=== PATIENT | female | born 1950 | race Caucasian/White ===

== ENCOUNTER → 2017-09-29 14:34 | Outpatient (CLI) | payer MEDICARE, OTHER, SELFPAY ==
[2017-09-29 17:32] LABS: Absolute Lymphocyte Count 1.48 X10^3/ul (0.83-4.51); Absolute Neutrophil Count 3.6 X10^3/uL (2.0-7.7); Basophil# 0.02 X10^3/uL; Basophil% 0.4 % (0-1); Eosinophil# 0.08 X10^3/uL; Eosinophils% 1.4 % (0-5); Hematocrit 33.9 % (37-47); Hemoglobin 10.2 g/dl (12.0-15.0); Lymphocyte # 1.48 X10^3/ul (4.0); Mean Corp Hgb Conc 30.1 g/gl (32-36); Mean Corpuscular Hgb 24.9 pg (27.0-32.0); Mean Corpuscular Volume 82.9 fL (81-99); Mean Platelet Vol. 11.4 fl (6.2-12.0); Monocyte# 0.56 X10^3/uL; Monocyte% 9.8 % (0-10); Neutrophil # 3.55 X10^3/uL (2.7-7.7); Neutrophil % 62.4 % (47-70); Platelet Count 216 K/mm3 (150-450); RBC Distribution Width CV 15.8 % (11.6-14.6); RBC Distribution Width SD 47.8 fl (35.1-43.9); Red Blood Count 4.09 M/mm3 (4.2-5.4); White Blood Count 5.7 K/mm3 (4.4-11.0)
[2017-09-29 17:34] LABS: POSITIVE COUNT NO; POSITIVE DIFFERENTIAL NO; POSITIVE MORPHOLOGY NO
[2017-09-29 17:43] LABS: Vitamin D,25 Hydroxy 28.5 ng/mL (29.95-100.01)
[2017-09-29 18:01] LABS: ALB/GLOB Ratio 0.8 RATIO (0.9-2.4); AST(SGOT) 20 U/L (15-37); Alanine Aminotransfer ALT/SGPT 21 U/L (13-56); Albumin, Serum 2.6 g/dL (3.2-5.0); Alkaline Phosphatase 105 U/L (45-117); Anion Gap 7 (5-15); BUN 23 mg/dL (7-18); BUN/Creat Ratio 27.4 RATIO (10-20); Calcium,Total 8.3 mg/dL (8.5-10.1); Chloride 105 mmol/L (98-107); Creatinine, Serum 0.84 mg/dL (0.55-1.02); EST Glomerular Filtration Rate 72 mL/min (>60); Est Glom Filt Rate - Afr Amer 87 mL/min (>60); Globulin 3.2 g/dL (2.2-4.2); Glucose 85 mg/dL (74-106); Potassium 4.3 mmol/L (3.5-5.1); Protein, Total 5.8 g/dL (6.4-8.2); Sodium Level 142 mmol/L (136-145)
== END ==
PROVIDERS: Family Provider Family Medicine Geriatric Medicine; PCP Family Medicine Geriatric Medicine; Visit Provider Family Medicine Geriatric Medicine
DX: E11.9 Type 2 diabetes mellitus without complications (principal); I10 Essential (primary) hypertension; E55.9 Vitamin D deficiency, unspecified
CPT/HCPCS: 36415; 80053; 82306; 84443; 85025

== ENCOUNTER 2017-10-30 10:30 | Outpatient (RCR) | payer MEDICARE, OTHER, SELFPAY ==
[2017-10-09 09:26] VITALS: BP 124/65; PULSE 74; RESP 18; TEMP 36.6; BMI 33.7
--- NOTE | 2017-10-09 13:25 | PCM.WC.HP ---
(1) Ulcer of right lower extremity with fat layer exposed Status: Acute Current Visit: Yes Code(s): L97.912 - Non-pressure chronic ulcer of unspecified part of right lower leg with fat layer exposed (2) Type 2 diabetes mellitus without complications Status: Acute Current Visit: Yes Code(s): E11.9 - Type 2 diabetes mellitus without complications (3) PVD (peripheral vascular disease) Status: Acute Current Visit: Yes Code(s): I73.9 - Peripheral vascular disease, unspecified (4) Lower extremity edema Status: Acute Current Visit: Yes Code(s): R60.0 - Localized edema (5) Delayed wound healing Status: Acute Current Visit: Yes Code(s): T14.8XXD - Other injury of unspecified body region, subsequent encounter History of Present Illness Date of Service: 10/09/17 Chief Complaint: non healing right lower leg ulcer History of Wound: This 66 year old diabetic female was referred to the wound healing center for a non healing ulcer to the right lateral lower leg. The patient says she is unsure the exact amount of time the ulcer has been opened, but says it is around 3 months. She says she has not done anything yet on her own to treat the ulcer. She says there was no trauma or injury that caused the ulcer. She says that she has always had swelling in her lower legs and she does not routinely keep compression on her legs. She has not done anything to treat the area on her own other than keeping the ulcer covered. She denies any pus to the area or any extending redness. She currently denies any feelings of nausea, vomiting, fever, or chills. Past Medical History Past Medical History: Chronic Problems (Last Updated 09/03/17 @ 12:31 by Rose Mary Taylor) Nonrheumatic aortic (valve) stenosis (Chronic) Nonrheumatic mitral (valve) stenosis (Chronic) Hypertension (Chronic) Surgical History: no surgical history Allergies/Adverse Reactions: Allergies lisinopril Adverse Reaction (Intermediate, Verified 10/09/17 09:47) Unknown penicillin G Adverse Reaction (Intermediate, Verified 09/03/17 12:13) Unknown exenatide [From [place]] Adverse Reaction (Unknown, Verified 10/09/17 09:47) Unknown Home Medications: Ambulatory Orders Medication Instructions Recorded Aspirin [Aspirin, Baby] 81 mg PO DAILY@0800 03/24/15 Escitalopram Oxalate [Lexapro] 10 mg PO DAILY 03/24/15 Gabapentin [Neurontin] 300 mg PO QHS 03/24/15 Lisinopril [Zestril] 5 mg PO DAILY 03/24/15 Montelukast [Singulair] 10 mg PO DAILY 03/24/15 Multivitamins,Ther W-Minerals 1 tab PO DAILY 03/24/15 [Multivitamin With Minerals] Omeprazole [Prilosec] 40 mg PO DAILY 03/24/15 Pravastatin [Pravachol] 20 mg PO QHS 03/24/15 Metformin HCl [Glucophage] 500 mg PO BIDCM #0 08/02/16 Cholecalciferol (VIT D3) [Vitamin 1,000 unit PO DAILY 11/22/16 D3] amlodipine 5 mg tablet 5 mg PO DAILY tab 09/03/17 traMADol [Ultram (G)] 50 mg PO Q4H PRN PRN 10/09/17 - Family History Maternal Family History: Family History (Last Updated 09/03/17 @ 12:31 by Rose Mary Taylor) Sister CAD (coronary artery disease) Hx of CABG No pertinent history Paternal Family History: Family History (Last Updated 09/03/17 @ 12:31 by Rose Mary Taylor) Sister CAD (coronary artery disease) Hx of CABG No pertinent history Smoking Status: Former smoker Review of Systems Constitutional: Denies: Chills, Fever, Weight Change Cardiovascular: Denies: Chest Pain, Palpitations Respiratory: Denies: Cough, Shortness of Breath Gastrointestinal: Denies: Diarrhea, Nausea, Vomiting Musculoskeletal: Reports: Leg Pain Skin: Reports: Wounds Hematologic/ Lymphatic: Denies: Easy Bruising, Easy Bleeding - Physical Exam Vital Signs Temp Pulse Resp BP 98 F 74 18 124/65 H 10/09/17 09:26 10/09/17 09:26 10/09/17 09:26 10/09/17 09:26 General: Alert, Oriented x3, Cooperative, No apparent distress Extremities: Capillary Refill Less than 3 Seconds, No Calf Tenderness - negative eileen and morton sign bilateral, Diminished Peripheral Pulses - DP pulse intact bilateral and PT pulse non palpable bilateral due to edema, Edema - bilateral lower extremity pitting edema with right being slightly worse than left Skin: Ulcer/ Wound - Chronic ulcer to right lower leg with dimensions noted below. Ulcer base is mixture of grandular tissue, adherent slough, fibrin, biofilm, and some hyperkeratotic tissue. There is no undermining, no probing, and no tracking noted. Serous drainage noted. No malodor, no extending cellulitis, no significant increase in warmth. No purulence. Wound Measurements and Assessment WC - Nurse 1 - General Ulcer Measurement Start: 10/09/17 09:03 Freq: Status: Active Protocol: Activity Type Activity Date Activity User E-Sign Co-Sign Detail Recorded Client Recorded Date Recorded By Document 10/09/17 09:26 DL [id number] 10/09/17 09:44 DL 10/09/17 09:26 Wound Center Nurse 1 [Ulcer Assessment] #1 R Lat Robb -Current Size (cm) - Length 3.8 -Current Size (cm) - Width 3.5 -Current Size (cm) - Depth 0.1 -Total Square Cm 13.30 -Photo Taken Yes -Epithelialization Small 1-33% -Classification - Thickness Full Thickness without Exposed Support Structure -Classification - Armstrong Grading ( Grade 1 Diabetic Ulcer) -Exudate Amt Medium (34-66%) -Exudate Type Serosanguineous -Wound Margin Distinct, Outline Attached -Granulation Amt Medium (34-66%) -Granulation Quality [place] Red -Necrosis Amt Medium (34-66%) -Necrotic Tissue Type Adherent Slough -Structure Exposed N/A -Texture (Gricel-wound Skin Appearance) Scarring -Moisture (Gricel-wound Skin Appearance No Abnormality ) -Color (Gricel-wound Skin Appearance) No Abnormality -Temperature (Gricel-wound Skin No Abnormality Appearance) (Pt Warm) -Ulcer Cleansing Wound Cleanser -Foul Odor after Cleansing No -Anesthetic Used 4% Lidocaine Solution [Edema Assessment] -Right Calf (cm) 47.2 -Right Ankle (cm) 29 -Left Calf (cm) 42.4 -Left Ankle (cm) 27.3 WC - Nurse 2 - General Ulcer CM Notes Start: 10/09/17 09:03 Freq: Status: Active Protocol: Activity Type Activity Date Activity User E-Sign Co-Sign Detail Recorded Client Recorded Date Recorded By Document 10/09/17 10:22 MW [id number] 10/09/17 10:32 MW 10/09/17 10:22 Wound Center Nurse 2 [Procedure/Treatment] #1 R Lat Robb -Time 10:23 -Correct Patient Yes -Correct Side, Site, Position Yes -Correct Procedure Yes -Procedure Performed Yes -Type of Procedure Debridement -Clinical Debridement Subcutaneous -Post Debridement Size (cm) - Length 3.6 -Post Debridement Size (cm) - Width 3.5 -Post Debridement Size (cm) - Depth 0.2 -Total Square Cm 12.60 -Wound/Ulcer Outcome Not Healed -Ulcer Cleansing Rinsed/ Irrigated with Saline -Foul Odor after Cleansing No -Bioengineered Tissue No -Bleeding Controlled with Pressure -Treatment Response Procedure Tolerated Well [See Physician Procedure note for Specifics] Pain Scale: 0-10 Numeric [Pain] -Is Patient Pain Free? Yes Musculoskeletal: Tenderness - to aforementioned ulcer site Neurological: Sensory exam intact to light touch and pain Psych/Mental Status: Normal Affect, Appropriate Debridement Note Post-Debridement Measurements/Treatment WC - Nurse 2 - General Ulcer CM Notes Start: 10/09/17 09:03 Freq: Status: Active Protocol: Activity Type Activity Date Activity User E-Sign Co-Sign Detail Recorded Client Recorded Date Recorded By Document 10/09/17 10:22 MW [id number] 10/09/17 10:32 MW 10/09/17 10:22 Wound Center Nurse 2 #1 R Lat Robb -Time 10:23 -Correct Patient Yes -Correct Side, Site, Position Yes -Correct Procedure Yes -Procedure Performed Yes -Type of Procedure Debridement -Clinical Debridement Subcutaneous -Post Debridement Size (cm) - Length 3.6 -Post Debridement Size (cm) - Width 3.5 -Post Debridement Size (cm) - Depth 0.2 -Total Square Cm 12.60 -Wound/Ulcer Outcome Not Healed -Ulcer Cleansing Rinsed/ Irrigated with Saline -Foul Odor after Cleansing No -Bioengineered Tissue No -Bleeding Controlled with Pressure -Treatment Response Procedure Tolerated Well Pain Scale: 0-10 Numeric Is Patient Pain Free? Yes Wound debrided: right lower leg Laterality: Right Wound Grade/Stage: 1 Type of Debridement: Excisional debridement Anesthesia Used: 4% Lidocaine Solution Depth: in the subcutaneous layer Percentage of wound debrided: 100 Instrument Used: 3mm curette Tissue Removed: adherent slough, fibrin, hyperkeratotic tissue, biofilm Severity: Fat Layer Exposed Amount of bleeding with debridement: Mild Bleeding Controlled with: Pressure Patient tolerated procedure well Assessment/Plan Active Problems (Last Updated 09/03/17 @ 12:31 by Rose Mary Taylor) Ulcer of right lower extremity with fat layer exposed (Acute) Type 2 diabetes mellitus without complications (Acute) PVD (peripheral vascular disease) (Acute) Lower extremity edema (Acute) Delayed wound healing (Acute) Assessment: Ulcer right lower leg, DM II, PVD Plan: Initial patient examination and evaluation was performed. Subcutaneous debridement was performed as described in the clinical panel. Following debridement, the ulcer site was carefully cleansed. Silvercel was then applied to the ulcer base followed by dry sterile dressing with compression applied by spandigrip. The patient is to undergo daily dressing changes in this manner. The patient was educated on the importance of keeping compression to the area. The patient is also to keep the ulcer site offloaded at all times making an effort to keep pressure off of the area. The patient says she recently had lab work taken at Dr. Jarvis's office and we will contact his office to get a copy of this. LEAS and bilateral venous Doppler exams were ordered today. These results will be reviewed prior to the patient's next visit. I recommend nutritional supplementation with a high-protein diet to optimize healing. The patient was educated on all signs and symptoms of local and systemic infection, and she was noted to go to the emergency room immediately should she notice any. All other questions and concerns were answered to the patient's satisfaction today. Patient will follow-up in clinic in 1 week or sooner if needed.
[2017-10-16 09:29] VITALS: BP 162/89; PULSE 77; RESP 18; TEMP 35.8; BMI 33.7
--- NOTE | 2017-10-16 14:33 | PCM.WC.PN ---
(1) Ulcer of right lower extremity with fat layer exposed Status: Acute Current Visit: Yes Code(s): L97.912 - Non-pressure chronic ulcer of unspecified part of right lower leg with fat layer exposed (2) Type 2 diabetes mellitus without complications Status: Acute Current Visit: Yes Code(s): E11.9 - Type 2 diabetes mellitus without complications (3) PVD (peripheral vascular disease) Status: Acute Current Visit: Yes Code(s): I73.9 - Peripheral vascular disease, unspecified (4) Lower extremity edema Status: Acute Current Visit: Yes Code(s): R60.0 - Localized edema (5) Delayed wound healing Status: Acute Current Visit: Yes Code(s): T14.8XXD - Other injury of unspecified body region, subsequent encounter Type of Wound Date of Service: 10/16/17 Chief Complaint: non healing right lower leg ulcer History of Wound: This 66 year old diabetic female was referred to the wound healing center for a non healing ulcer to the right lateral lower leg. The patient says she is unsure the exact amount of time the ulcer has been opened, but says it is around 3 months. She says she has not done anything yet on her own to treat the ulcer. She says there was no trauma or injury that caused the ulcer. She says that she has always had swelling in her lower legs and she does not routinely keep compression on her legs. She has not done anything to treat the area on her own other than keeping the ulcer covered. She denies any pus to the area or any extending redness. She currently denies any feelings of nausea, vomiting, fever, or chills. Progress of Wound: Patient presents to wound center again today for follow up care. The ulcer appears to be very slightly improved from last visit. She says she has been keeping compression on the area along with her daily dressing changes. She currently denies any feelings of nausea, vomiting, fever, or chills. - Physical Exam Vital Signs Temp Pulse Resp BP 96.4 F L 77 18 162/89 H 10/16/17 09:29 10/16/17 09:29 10/16/17 09:29 10/16/17 09:29 General: Alert, Oriented x3, Cooperative, No apparent distress Extremities: Capillary Refill Less than 3 Seconds, No Calf Tenderness - negative eileen and morton sign, Diminished Peripheral Pulses - DP pulse palpable and PT pulse non palpable due to edema, Edema - bilateral lower extremity pitting edema with right being worse than left Skin: Ulcer/ Wound - Chronic ulcer to right lower leg with dimensions noted below. Ulcer base is mixture of grandular tissue, adherent slough, fibrin, biofilm, and some hyperkeratotic tissue again today. The area appears slightly improved from last visit. There is no undermining, no probing, and no tracking noted. Serous drainage noted. No malodor, no extending cellulitis, no significant increase in warmth. No purulence. Wound Measurements and Assessment WC - Nurse 1 - General Ulcer Measurement Start: 10/09/17 09:03 Freq: Status: Active Protocol: Activity Type Activity Date Activity User E-Sign Co-Sign Detail Recorded Client Recorded Date Recorded By Document 10/16/17 09:29 [facility] [id number] 10/16/17 09:42 [facility] 10/16/17 09:29 Wound Center Nurse 1 [Ulcer Assessment] #1 R Lat Robb -Combined with other wound No -Current Size (cm) - Length 3.5 -Current Size (cm) - Width 2.7 -Current Size (cm) - Depth 0.1 -Total Square Cm 9.45 -Photo Taken No -Epithelialization Small 1-33% -Tunneling No -Undermining/Tunneling No -Circular Undermining No -Exudate Amt Small (1-33%) -Exudate Type Serosanguineous -Wound Margin Distinct, Outline Attached -Granulation Amt Small (1-33%) -Granulation Quality Red -Slough/Fibrin Yes -Necrosis Amt Large (67-100%) -Necrotic Tissue Type Adherent Slough -Structure Exposed None/Limited to Skin Breakdown -Texture (Gricel-wound Skin Appearance) Scarring -Moisture (Gricel-wound Skin Appearance Assessed ) -Color (Gricel-wound Skin Appearance) Assessed -Temperature (Gricel-wound Skin No Abnormality Appearance) (Pt Warm) -Tenderness on Palpation (Gricel-wound No Skin Appearance) -Ulcer Cleansing Rinsed/ Irrigated with Saline -Foul Odor after Cleansing No -Anesthetic Used 4% Lidocaine Solution [Edema Assessment] -Lower Limb Edema Present Yes -Right Calf (cm) 44.5 -Right Ankle (cm) 29.1 -Left Calf (cm) 40 -Left Ankle (cm) 27 WC - Nurse 2 - General Ulcer CM Notes Start: 10/09/17 09:03 Freq: Status: Active Protocol: Activity Type Activity Date Activity User E-Sign Co-Sign Detail Recorded Client Recorded Date Recorded By Document 10/16/17 10:33 MW [id number] 10/16/17 10:39 MW 10/16/17 10:33 Wound Center Nurse 2 [Procedure/Treatment] #1 R Lat Robb -Time 10:34 -Correct Patient Yes -Correct Side, Site, Position Yes -Correct Procedure Yes -Procedure Performed Yes -Type of Procedure Debridement -Clinical Debridement Subcutaneous -Post Debridement Size (cm) - Length 3.1 -Post Debridement Size (cm) - Width 3.4 -Post Debridement Size (cm) - Depth 0.2 -Total Square Cm 10.54 -Wound/Ulcer Outcome Not Healed -Ulcer Cleansing Rinsed/ Irrigated with Saline -Foul Odor after Cleansing No -Bioengineered Tissue No -Bleeding Controlled with Pressure -Treatment Response Procedure Tolerated Well [See Physician Procedure note for Specifics] Pain Scale: 0-10 Numeric [Pain] -Is Patient Pain Free? Yes Musculoskeletal: Tenderness - to ulcer site Neurological: Sensory exam intact to light touch and pain Psych/Mental Status: Normal Affect, Appropriate Debridement Note Post-Debridement Measurements/Treatment - Nurse 2 - General Ulcer CM Notes Start: 10/09/17 09:03 Freq: Status: Active Protocol: Activity Type Activity Date Activity User E-Sign Co-Sign Detail Recorded Client Recorded Date Recorded By Document 10/09/17 10:22 MW [id number] 10/09/17 10:32 MW Document 10/16/17 10:33 MW [id number] 10/16/17 10:39 MW 10/09/17 10/16/17 10:22 10:33 Wound Center Nurse 2 #1 R Lat Robb -Time 10:23 10:34 -Correct Patient Yes Yes -Correct Side, Site, Position Yes Yes -Correct Procedure Yes Yes -Procedure Performed Yes Yes -Type of Procedure Debridement Debridement -Clinical Debridement Subcutaneous Subcutaneous -Post Debridement Size (cm) - Length 3.6 3.1 -Post Debridement Size (cm) - Width 3.5 3.4 -Post Debridement Size (cm) - Depth 0.2 0.2 -Total Square Cm 12.60 10.54 -Wound/Ulcer Outcome Not Healed Not Healed -Ulcer Cleansing Rinsed/ Rinsed/ Irrigated with Irrigated with Saline Saline -Foul Odor after Cleansing No No -Bioengineered Tissue No No -Bleeding Controlled with Pressure Pressure -Treatment Response Procedure Procedure Tolerated Well Tolerated Well Pain Scale: 0-10 Numeric Is Patient Pain Free? Yes Yes Wound debrided: right lower leg Laterality: Right Wound Grade/Stage: 1 Type of Debridement: Excisional debridement Anesthesia Used: 4% Lidocaine Solution Depth: in the subcutaneous layer Percentage of wound debrided: 100 Instrument Used: 5mm curette Tissue Removed: adherent slough, fibrin, hyperkeratotic tissue, biofilm Severity: Fat Layer Exposed Amount of bleeding with debridement: Mild Bleeding Controlled with: Pressure Patient tolerated procedure well Assessment/Plan Active Problems (Last Updated 09/03/17 @ 12:31 by Rose Mary Taylor) Ulcer of right lower extremity with fat layer exposed (Acute) Type 2 diabetes mellitus without complications (Acute) PVD (peripheral vascular disease) (Acute) Lower extremity edema (Acute) Delayed wound healing (Acute) Assessment: Ulcer right lower leg, DM II, PVD Plan: Patient was examined and evaluated again today. Subcutaneous debridement was performed as described in the clinical panel. Following debridement, the ulcer site was carefully cleansed. Silvercel was then applied to the ulcer base followed by dry sterile dressing with compression applied by spandigrip. The patient is to continue to undergo daily dressing changes in this manner. The patient was educated on the importance of keeping compression to the area. The patient is also to keep the ulcer site offloaded at all times making an effort to keep pressure off of the area. LEAS and bilateral venous Doppler exams were ordered and will be completed on october 27. I recommend nutritional supplementation with a high-protein diet to optimize healing. The patient was educated on all signs and symptoms of local and systemic infection, and she was noted to go to the emergency room immediately should she notice any. All other questions and concerns were answered to the patient's satisfaction today. Patient will follow-up in clinic in 1 week or sooner if needed.
[2017-10-23 10:20] VITALS: BP 132/66; PULSE 77; RESP 18; TEMP 35.9; BMI 33.7
--- NOTE | 2017-10-23 14:08 | PCM.WC.PN ---
(1) Ulcer of right lower extremity with fat layer exposed Status: Acute Current Visit: Yes Code(s): L97.912 - Non-pressure chronic ulcer of unspecified part of right lower leg with fat layer exposed (2) Type 2 diabetes mellitus without complications Status: Acute Current Visit: Yes Code(s): E11.9 - Type 2 diabetes mellitus without complications (3) PVD (peripheral vascular disease) Status: Acute Current Visit: Yes Code(s): I73.9 - Peripheral vascular disease, unspecified (4) Lower extremity edema Status: Acute Current Visit: Yes Code(s): R60.0 - Localized edema (5) Delayed wound healing Status: Acute Current Visit: Yes Code(s): T14.8XXD - Other injury of unspecified body region, subsequent encounter Type of Wound Date of Service: 10/23/17 Chief Complaint: non healing right lower leg ulcer History of Wound: This 66 year old diabetic female was referred to the wound healing center for a non healing ulcer to the right lateral lower leg. The patient says she is unsure the exact amount of time the ulcer has been opened, but says it is around 3 months. She says she has not done anything yet on her own to treat the ulcer. She says there was no trauma or injury that caused the ulcer. She says that she has always had swelling in her lower legs and she does not routinely keep compression on her legs. She has not done anything to treat the area on her own other than keeping the ulcer covered. She denies any pus to the area or any extending redness. She currently denies any feelings of nausea, vomiting, fever, or chills. Progress of Wound: Patient presents to wound center again today for follow up care. The ulcer appears to be very slightly improved from last visit again this week. She says she has been keeping compression on the area along with her daily dressing changes. She currently denies any feelings of nausea, vomiting, fever, or chills. - Physical Exam Vital Signs Temp Pulse Resp BP 96.6 F L 77 18 132/66 H 10/23/17 10:20 10/23/17 10:20 10/23/17 10:20 10/23/17 10:20 General: Alert, Oriented x3, Cooperative, No apparent distress Extremities: Capillary Refill Less than 3 Seconds, No Calf Tenderness - negative eileen and morton sign, Diminished Peripheral Pulses - DP pulse palpable and PT pulse non palpable due to edema, Edema - Bilateral lower extremity pitting edema with right being worse than left Skin: Ulcer/ Wound - Chronic ulcer to right lower leg with dimensions noted below. Ulcer base is mixture of granular tissue, adherent slough, fibrin, biofilm, and some hyperkeratotic tissue again today. The area appears slightly improved from last visit. There is no undermining, no probing, and no tracking noted. Serous drainage noted. No malodor, no extending cellulitis, no significant increase in warmth. No purulence. Wound Measurements and Assessment WC - Nurse 1 - General Ulcer Measurement Start: 10/09/17 09:03 Freq: Status: Active Protocol: Activity Type Activity Date Activity User E-Sign Co-Sign Detail Recorded Client Recorded Date Recorded By Document 10/23/17 10:20 TM [id number] 10/23/17 10:24 TM 10/23/17 10:20 Wound Center Nurse 1 [Ulcer Assessment] #1 R Lat Robb -Combined with other wound No -Current Size (cm) - Length 3.5 -Current Size (cm) - Width 3.5 -Current Size (cm) - Depth 0.1 -Total Square Cm 12.25 -Photo Taken No -Epithelialization Small 1-33% -Tunneling No -Undermining/Tunneling No -Circular Undermining No -Classification - Thickness Full Thickness without Exposed Support Structure -Exudate Amt Small (1-33%) -Exudate Type Serosanguineous -Wound Margin Distinct, Outline Attached -Granulation Amt Medium (34-66%) -Granulation Quality Pale [place] -Slough/Fibrin Yes -Necrosis Amt Medium (34-66%) -Necrotic Tissue Type Adherent Slough -Structure Exposed Fascia Fat Layer Exposed -Texture (Gricel-wound Skin Appearance) Friable Localized Edema -Moisture (Gricel-wound Skin Appearance No Abnormality ) -Color (Gricel-wound Skin Appearance) Erythema -Temperature (Gricel-wound Skin No Abnormality Appearance) (Pt Warm) -Tenderness on Palpation (Gricel-wound No Skin Appearance) -Ulcer Cleansing Rinsed/ Irrigated with Saline -Foul Odor after Cleansing No -Anesthetic Used 5% Lidocaine Gel [Edema Assessment] -Lower Limb Edema Present Yes -Right Calf (cm) 42.0 -Right Ankle (cm) 29.5 -Left Calf (cm) 39.5 -Left Ankle (cm) 28.0 NANCY - Nurse 2 - General Ulcer CM Notes Start: 10/09/17 09:03 Freq: Status: Active Protocol: Activity Type Activity Date Activity User E-Sign Co-Sign Detail Recorded Client Recorded Date Recorded By Document 10/23/17 10:41 MW [id number] 10/23/17 10:46 MW 10/23/17 10:41 Wound Center Nurse 2 [Procedure/Treatment] #1 R Lat Robb -Time 10:42 -Correct Patient Yes -Correct Side, Site, Position Yes -Correct Procedure Yes -Procedure Performed Yes -Type of Procedure Debridement -Clinical Debridement Subcutaneous -Post Debridement Size (cm) - Length 3.5 -Post Debridement Size (cm) - Width 3.0 -Post Debridement Size (cm) - Depth 0.1 -Total Square Cm 10.50 -Wound/Ulcer Outcome Not Healed -Ulcer Cleansing Rinsed/ Irrigated with Saline -Foul Odor after Cleansing No -Bioengineered Tissue No -Bleeding Controlled with Pressure -Treatment Response Procedure Tolerated Well [See Physician Procedure note for Specifics] Pain Scale: 0-10 Numeric [Pain] -Is Patient Pain Free? Yes Musculoskeletal: Tenderness - to ulcer site Neurological: Sensory exam intact to light touch and pain Psych/Mental Status: Normal Affect, Appropriate Debridement Note Post-Debridement Measurements/Treatment - Nurse 2 - General Ulcer CM Notes Start: 10/09/17 09:03 Freq: Status: Active Protocol: Activity Type Activity Date Activity User E-Sign Co-Sign Detail Recorded Client Recorded Date Recorded By Document 10/09/17 10:22 MW [id number] 10/09/17 10:32 MW Document 10/16/17 10:33 MW [id number] 10/16/17 10:39 MW Document 10/23/17 10:41 MW [id number] 10/23/17 10:46 MW 10/09/17 10/16/17 10/23/17 10:22 10:33 10:41 Wound Center Nurse 2 #1 R Lat Robb -Time 10:23 10:34 10:42 -Correct Patient Yes Yes Yes -Correct Side, Site, Position Yes Yes Yes -Correct Procedure Yes Yes Yes -Procedure Performed Yes Yes Yes -Type of Procedure Debridement Debridement Debridement -Clinical Debridement Subcutaneous Subcutaneous Subcutaneous -Post Debridement Size (cm) - Length 3.6 3.1 3.5 -Post Debridement Size (cm) - Width 3.5 3.4 3.0 -Post Debridement Size (cm) - Depth 0.2 0.2 0.1 -Total Square Cm 12.60 10.54 10.50 -Wound/Ulcer Outcome Not Healed Not Healed Not Healed -Ulcer Cleansing Rinsed/ Rinsed/ Rinsed/ Irrigated with Irrigated with Irrigated with Saline Saline Saline -Foul Odor after Cleansing No No No -Bioengineered Tissue No No No -Bleeding Controlled with Pressure Pressure Pressure -Treatment Response Procedure Procedure Procedure Tolerated Well Tolerated Well Tolerated Well Pain Scale: 0-10 Numeric Is Patient Pain Free? Yes Yes Yes Wound debrided: Right lower leg Laterality: Right Wound Grade/Stage: 1 Type of Debridement: Excisional debridement Anesthesia Used: 4% Lidocaine Solution Depth: in the subcutaneous layer Percentage of wound debrided: 100 Instrument Used: 5mm curette Tissue Removed: adherent slough, fibrin, hyperkeratotic tissue, biofilm Severity: Fat Layer Exposed Amount of bleeding with debridement: Mild Bleeding Controlled with: Pressure Patient tolerated procedure well Assessment/Plan Active Problems (Last Reviewed 10/20/17 @ 11:03 by Rose Mary Taylor) Ulcer of right lower extremity with fat layer exposed (Acute) Type 2 diabetes mellitus without complications (Acute) PVD (peripheral vascular disease) (Acute) Lower extremity edema (Acute) Delayed wound healing (Acute) Assessment: Ulcer right lower leg, DM II, PVD Plan: Patient was examined and evaluated again today. Subcutaneous debridement was performed as described in the clinical panel. Following debridement, the ulcer site was carefully cleansed and silvercel was then applied to the ulcer base followed by dry sterile dressing with compression applied from spandigrip. The patient is to continue to undergo daily dressing changes in this manner. The patient was educated on the importance of keeping compression to the area. The patient is also to keep the ulcer site offloaded at all times making an effort to keep pressure off of the area. LEAS and bilateral venous Doppler exams were ordered and will be completed on october 27. I recommend nutritional supplementation with a high-protein diet to optimize healing. The patient was educated on all signs and symptoms of local and systemic infection, and she was instructed to go to the emergency room immediately should she notice any. All other questions and concerns were answered to the patient's satisfaction today. Patient will follow-up in clinic in 1 week or sooner if needed.
--- NOTE | 2017-10-27 13:15 | VDLE_ITS ---
Reason For Study: Non-healing wound - Edema RIGHT LEFT CFV is compressible, spontaneous, phasic, CFV is compressible, spontaneous, phasic, competent and demonstrates normal competent, and demonstrates normal augmentation. augmentation. FV is compressible, spontaneous, phasic, FV is compressible, spontaneous, phasic, competent and demonstrates normal competent and demonstrates normal augmentation. augmentation. POP V is compressible, spontaneous, phasic, POP V is compressible, spontaneous, phasic, competent and demonstrates normal competent and demonstrates normal augmentation. augmentation. T/P Trunk is compressible. T/P Trunk is compressible. PTV is compressible. PTV is compressible. GSV absent due to stripping GSV absent s/p stripping ASV at groin is INCOMPETENT with reflux ASV at groin INCOMPETENT with reflux greater greater than .5 sec.and diameter of .43 than .5 sec and diameter of .49 x .51 cm x .45 cm SSV is competent. SSV is INCOMPETENT with reflux greater than .5 sec and diameter of .38 x .36 cm. Procedure Exam performed in department. A preliminary report was called and/or faxed to [facility]. Interpretation Summary Deep veins of the lower extremities are bilaterally patent and compressible segmentally. There is no evidence of deep vein thrombosis on either side. Valvular competence appears intact within the proximal deep venous systems bilaterally. Great saphenous veins are absent bilaterally due to stripping. The right small saphenous vein is patent and incompetent. The left small saphenous vein is patent and competent. The right accessory saphenous vein at the groin is incompetent. The left accessory saphenous vein at the groin is incompetent. Ordering Physician: Aroldo Sharma Referring Physician: Aroldo Sharma Performed By: Patito Grajeda RVT
[2017-10-30 10:24] VITALS: BP 149/78; PULSE 79; RESP 18; TEMP 37; BMI 33.7
--- NOTE | 2017-10-30 14:34 | PCM.WC.PN ---
(1) Ulcer of right lower extremity with fat layer exposed Status: Acute Current Visit: Yes Code(s): L97.912 - Non-pressure chronic ulcer of unspecified part of right lower leg with fat layer exposed (2) Type 2 diabetes mellitus without complications Status: Acute Current Visit: Yes Code(s): E11.9 - Type 2 diabetes mellitus without complications (3) PVD (peripheral vascular disease) Status: Acute Current Visit: Yes Code(s): I73.9 - Peripheral vascular disease, unspecified (4) Lower extremity edema Status: Acute Current Visit: Yes Code(s): R60.0 - Localized edema (5) Delayed wound healing Status: Acute Current Visit: Yes Code(s): T14.8XXD - Other injury of unspecified body region, subsequent encounter Type of Wound Date of Service: 10/30/17 Chief Complaint: non healing right lower leg ulcer History of Wound: This 66 year old diabetic female was referred to the wound healing center for a non healing ulcer to the right lateral lower leg. The patient says she is unsure the exact amount of time the ulcer has been opened, but says it is around 3 months. She says she has not done anything yet on her own to treat the ulcer. She says there was no trauma or injury that caused the ulcer. She says that she has always had swelling in her lower legs and she does not routinely keep compression on her legs. She has not done anything to treat the area on her own other than keeping the ulcer covered. She denies any pus to the area or any extending redness. She currently denies any feelings of nausea, vomiting, fever, or chills. Progress of Wound: Patient presents to wound center again today for follow up care. The ulcer appears to be improved from last visit again this week. She says she has been keeping compression on the area along with her daily dressing changes. She says she has been doubling up her tubigrips as she did not like the spandigrips. She currently denies any feelings of nausea, vomiting, fever, or chills. - Physical Exam Vital Signs Temp Pulse Resp BP 98.6 F 79 18 149/78 H 10/30/17 10:24 10/30/17 10:24 10/30/17 10:24 10/30/17 10:24 General: Alert, Oriented x3, Cooperative, No apparent distress Extremities: Capillary Refill Less than 3 Seconds, No Calf Tenderness - negative eileen and morton sign, Diminished Peripheral Pulses - DP pulses palpable and PT pulses nonpalpable due to edema, Edema - Bilateral lower extremity pitting edema with right being worse than left Skin: Ulcer/ Wound - Chronic ulcer to right lower leg with measurements noted below. Ulcer base is measure of granular tissue, adherent slough, fibrin, biofilm and some slight hyperkeratotic tissue. The area continues to show improvement from week to week. There continues to be no undermining, no probing, no tracking. Slight serous drainage noted. There is no malodor, no ascending cellulitis, no significant increase in warmth, and no purulence. Wound Measurements and Assessment WC - Nurse 1 - General Ulcer Measurement Start: 10/09/17 09:03 Freq: Status: Active Protocol: Activity Type Activity Date Activity User E-Sign Co-Sign Detail Recorded Client Recorded Date Recorded By Document 10/30/17 10:24 [facility] [id number] 10/30/17 10:35 [facility] 10/30/17 10:24 Wound Center Nurse 1 [Ulcer Assessment] #1 R Lat Robb -Combined with other wound No -Current Size (cm) - Length 3.1 -Current Size (cm) - Width 1.9 -Current Size (cm) - Depth 0.1 -Total Square Cm 5.89 -Photo Taken No -Epithelialization Small 1-33% -Tunneling No -Undermining/Tunneling No -Circular Undermining No -Exudate Amt Small (1-33%) -Exudate Type Serous -Wound Margin Distinct, Outline Attached -Granulation Amt Small (1-33%) -Granulation Quality Red -Slough/Fibrin Yes -Necrosis Amt Large (67-100%) -Necrotic Tissue Type Adherent Slough -Structure Exposed None/Limited to Skin Breakdown -Texture (Gricel-wound Skin Appearance) Scarring -Moisture (Gricel-wound Skin Appearance Assessed ) -Color (Gricel-wound Skin Appearance) Assessed -Temperature (Gricel-wound Skin No Abnormality Appearance) (Pt Warm) -Tenderness on Palpation (Gricel-wound No Skin Appearance) -Ulcer Cleansing Rinsed/ Irrigated with Saline -Foul Odor after Cleansing No -Anesthetic Used 4% Lidocaine Solution [Edema Assessment] -Lower Limb Edema Present Yes -Right Calf (cm) 41 -Right Ankle (cm) 29.2 -Left Calf (cm) 40 -Left Ankle (cm) 28.5 WC - Nurse 2 - General Ulcer CM Notes Start: 10/09/17 09:03 Freq: Status: Active Protocol: Activity Type Activity Date Activity User E-Sign Co-Sign Detail Recorded Client Recorded Date Recorded By Document 10/30/17 11:20 MW [id number] 10/30/17 11:23 MW 10/30/17 11:20 Wound Center Nurse 2 [Procedure/Treatment] #1 R Lat Robb -Time 11:20 -Correct Patient Yes -Correct Side, Site, Position Yes -Correct Procedure Yes -Procedure Performed Yes -Type of Procedure Debridement -Clinical Debridement Subcutaneous -Post Debridement Size (cm) - Length 3.1 -Post Debridement Size (cm) - Width 2.5 -Post Debridement Size (cm) - Depth 0.1 -Total Square Cm 7.75 -Wound/Ulcer Outcome Not Healed -Ulcer Cleansing Rinsed/ Irrigated with Saline -Foul Odor after Cleansing No -Bioengineered Tissue No -Bleeding Controlled with Pressure -Treatment Response Procedure Tolerated Well [See Physician Procedure note for Specifics] Pain Scale: 0-10 Numeric [Pain] -Is Patient Pain Free? Yes Musculoskeletal: Tenderness - 2 ulcer site Neurological: Sensory exam intact to light touch and pain Psych/Mental Status: Normal Affect, Appropriate Debridement Note Post-Debridement Measurements/Treatment - Nurse 2 - General Ulcer CM Notes Start: 10/09/17 09:03 Freq: Status: Active Protocol: Activity Type Activity Date Activity User E-Sign Co-Sign Detail Recorded Client Recorded Date Recorded By Document 10/09/17 10:22 MW [id number] 10/09/17 10:32 MW Document 10/16/17 10:33 MW [id number] 10/16/17 10:39 MW Document 10/23/17 10:41 MW [id number] 10/23/17 10:46 MW Document 10/30/17 11:20 MW [id number] 10/30/17 11:23 MW 10/09/17 10/16/17 10/23/17 10:22 10:33 10:41 Wound Center Nurse 2 #1 R Lat Robb -Time 10:23 10:34 10:42 -Correct Patient Yes Yes Yes -Correct Side, Site, Position Yes Yes Yes -Correct Procedure Yes Yes Yes -Procedure Performed Yes Yes Yes -Type of Procedure Debridement Debridement Debridement -Clinical Debridement Subcutaneous Subcutaneous Subcutaneous -Post Debridement Size (cm) - Length 3.6 3.1 3.5 -Post Debridement Size (cm) - Width 3.5 3.4 3.0 -Post Debridement Size (cm) - Depth 0.2 0.2 0.1 -Total Square Cm 12.60 10.54 10.50 -Wound/Ulcer Outcome Not Healed Not Healed Not Healed -Ulcer Cleansing Rinsed/ Rinsed/ Rinsed/ Irrigated with Irrigated with Irrigated with Saline Saline Saline -Foul Odor after Cleansing No No No -Bioengineered Tissue No No No -Bleeding Controlled with Pressure Pressure Pressure -Treatment Response Procedure Procedure Procedure Tolerated Well Tolerated Well Tolerated Well Pain Scale: 0-10 Numeric Is Patient Pain Free? Yes Yes Yes 10/30/17 11:20 Wound Center Nurse 2 #1 R Lat Robb -Time 11:20 -Correct Patient Yes -Correct Side, Site, Position Yes -Correct Procedure Yes -Procedure Performed Yes -Type of Procedure Debridement -Clinical Debridement Subcutaneous -Post Debridement Size (cm) - Length 3.1 -Post Debridement Size (cm) - Width 2.5 -Post Debridement Size (cm) - Depth 0.1 -Total Square Cm 7.75 -Wound/Ulcer Outcome Not Healed -Ulcer Cleansing Rinsed/ Irrigated with Saline -Foul Odor after Cleansing No -Bioengineered Tissue No -Bleeding Controlled with Pressure -Treatment Response Procedure Tolerated Well Pain Scale: 0-10 Numeric Is Patient Pain Free? Yes Wound debrided: Right lower leg Laterality: Right Wound Grade/Stage: 1 Type of Debridement: Excisional debridement Anesthesia Used: 4% Lidocaine Solution Depth: in the subcutaneous layer Percentage of wound debrided: 100 Instrument Used: 5mm curette Tissue Removed: Adherent slough, fibrin, hyperkeratotic tissue, biofilm Severity: Fat Layer Exposed Amount of bleeding with debridement: Mild Bleeding Controlled with: Pressure Patient tolerated procedure well Assessment/Plan Active Problems (Last Reviewed 10/20/17 @ 11:03 by Rose Mary Taylor) Ulcer of right lower extremity with fat layer exposed (Acute) Type 2 diabetes mellitus without complications (Acute) PVD (peripheral vascular disease) (Acute) Lower extremity edema (Acute) Delayed wound healing (Acute) Assessment: Ulcer right lower leg, DM II, PVD Plan: Patient was examined and evaluated again today. Subcutaneous debridement was performed as described in the clinical panel. Following debridement, the ulcer site was carefully cleansed and silvercel was then applied to the ulcer base followed by dry sterile dressing with compression applied from double layered tuibigrips. Patient says she did not like the spandigrips. The patient is to continue to undergo daily dressing changes in this manner. The patient was educated on the importance of keeping compression to the area. The patient is also to keep the ulcer site offloaded at all times making an effort to keep pressure off of the area. LEAS and bilateral venous Doppler exams were ordered. Venous results showed incompetence of some of the veins in lower extremity, especially right sided. I recommend nutritional supplementation with a high-protein diet to optimize healing. The patient was educated on all signs and symptoms of local and systemic infection, and she was instructed to go to the emergency room immediately should she notice any. All other questions and concerns were answered to the patient's satisfaction today. Patient will follow-up in clinic in 1 week or sooner if needed.
--- NOTE | 2017-10-30 14:42 | PN.PCM_ITS ---
(1) Ulcer of right lower extremity with fat layer exposed Status: Acute Current Visit: Yes Code(s): L97.912 - Non-pressure chronic ulcer of unspecified part of right lower leg with fat layer exposed (2) Type 2 diabetes mellitus without complications Status: Acute Current Visit: Yes Code(s): E11.9 - Type 2 diabetes mellitus without complications (3) PVD (peripheral vascular disease) Status: Acute Current Visit: Yes Code(s): I73.9 - Peripheral vascular disease, unspecified (4) Lower extremity edema Status: Acute Current Visit: Yes Code(s): R60.0 - Localized edema (5) Delayed wound healing Status: Acute Current Visit: Yes Code(s): T14.8XXD - Other injury of unspecified body region, subsequent encounter Type of Wound Date of Service: 10/30/17 Chief Complaint: non healing right lower leg ulcer History of Wound: This 66 year old diabetic female was referred to the wound healing center for a non healing ulcer to the right lateral lower leg. The patient says she is unsure the exact amount of time the ulcer has been opened, but says it is around 3 months. She says she has not done anything yet on her own to treat the ulcer. She says there was no trauma or injury that caused the ulcer. She says that she has always had swelling in her lower legs and she does not routinely keep compression on her legs. She has not done anything to treat the area on her own other than keeping the ulcer covered. She denies any pus to the area or any extending redness. She currently denies any feelings of nausea, vomiting, fever, or chills. Progress of Wound: Patient presents to wound center again today for follow up care. The ulcer appears to be improved from last visit again this week. She says she has been keeping compression on the area along with her daily dressing changes. She says she has been doubling up her tubigrips as she did not like the spandigrips. She currently denies any feelings of nausea, vomiting, fever, or chills. - Physical Exam Vital Signs Temp Pulse Resp BP 98.6 F 79 18 149/78 H 10/30/17 10:24 10/30/17 10:24 10/30/17 10:24 10/30/17 10:24 General: Alert, Oriented x3, Cooperative, No apparent distress Extremities: Capillary Refill Less than 3 Seconds, No Calf Tenderness - negative eileen and morton sign, Diminished Peripheral Pulses - DP pulses palpable and PT pulses nonpalpable due to edema, Edema - Bilateral lower extremity pitting edema with right being worse than left Skin: Ulcer/ Wound - Chronic ulcer to right lower leg with measurements noted below. Ulcer base is measure of granular tissue, adherent slough, fibrin, biofilm and some slight hyperkeratotic tissue. The area continues to show improvement from week to week. There continues to be no undermining, no probing , no tracking. Slight serous drainage noted. There is no malodor, no ascending cellulitis, no significant increase in warmth, and no purulence. Wound Measurements and Assessment WC - Nurse 1 - General Ulcer Measurement Start: 10/09/17 09:03 Freq: Status: Active Protocol: Activity Type Activity Date Activity User E-Sign Co-Sign Detail Recorded Client Recorded Date Recorded By Document 10/30/17 10:24 [facility] [id number] 10/30/17 10:35 [facility] 10/30/17 10:24 Wound Center Nurse 1 [Ulcer Assessment] #1 R Lat Robb -Combined with other wound No -Current Size (cm) - Length 3.1 -Current Size (cm) - Width 1.9 -Current Size (cm) - Depth 0.1 -Total Square Cm 5.89 -Photo Taken No -Epithelialization Small 1-33% -Tunneling No -Undermining/Tunneling No -Circular Undermining No -Exudate Amt Small (1-33%) -Exudate Type Serous -Wound Margin Distinct, Outline Attached -Granulation Amt Small (1-33%) -Granulation Quality Red -Slough/Fibrin Yes -Necrosis Amt Large (67-100%) -Necrotic Tissue Type Adherent Slough -Structure Exposed None/Limited to Skin Breakdown -Texture (Gricel-wound Skin Appearance) Scarring -Moisture (Gricel-wound Skin Appearance Assessed ) -Color (Gricel-wound Skin Appearance) Assessed -Temperature (Gricel-wound Skin No Abnormality Appearance) (Pt Warm) -Tenderness on Palpation (Gricel-wound No Skin Appearance) -Ulcer Cleansing Rinsed/ Irrigated with Saline -Foul Odor after Cleansing No -Anesthetic Used 4% Lidocaine Solution [Edema Assessment] -Lower Limb Edema Present Yes -Right Calf (cm) 41 -Right Ankle (cm) 29.2 -Left Calf (cm) 40 -Left Ankle (cm) 28.5 WC - Nurse 2 - General Ulcer CM Notes Start: 10/09/17 09:03 Freq: Status: Active Protocol: Activity Type Activity Date Activity User E-Sign Co-Sign Detail Recorded Client Recorded Date Recorded By Document 10/30/17 11:20 MW [id number] 10/30/17 11:23 MW 10/30/17 11:20 Wound Center Nurse 2 [Procedure/Treatment] #1 R Lat Robb -Time 11:20 -Correct Patient Yes -Correct Side, Site, Position Yes -Correct Procedure Yes -Procedure Performed Yes -Type of Procedure Debridement -Clinical Debridement Subcutaneous -Post Debridement Size (cm) - Length 3.1 -Post Debridement Size (cm) - Width 2.5 -Post Debridement Size (cm) - Depth 0.1 -Total Square Cm 7.75 -Wound/Ulcer Outcome Not Healed -Ulcer Cleansing Rinsed/ Irrigated with Saline -Foul Odor after Cleansing No -Bioengineered Tissue No -Bleeding Controlled with Pressure -Treatment Response Procedure Tolerated Well [See Physician Procedure note for Specifics] Pain Scale: 0-10 Numeric [Pain] -Is Patient Pain Free? Yes Musculoskeletal: Tenderness - 2 ulcer site Neurological: Sensory exam intact to light touch and pain Psych/Mental Status: Normal Affect, Appropriate Debridement Note Post-Debridement Measurements/Treatment - Nurse 2 - General Ulcer CM Notes Start: 10/09/17 09:03 Freq: Status: Active Protocol: Activity Type Activity Date Activity User E-Sign Co-Sign Detail Recorded Client Recorded Date Recorded By Document 10/09/17 10:22 MW [id number] 10/09/17 10:32 MW Document 10/16/17 10:33 MW [id number] 10/16/17 10:39 MW Document 10/23/17 10:41 MW [id number] 10/23/17 10:46 MW Document 10/30/17 11:20 MW [id number] 10/30/17 11:23 MW 10/09/17 10/16/17 10/23/17 10:22 10:33 10:41 Wound Center Nurse 2 #1 R Lat Robb -Time 10:23 10:34 10:42 -Correct Patient Yes Yes Yes -Correct Side, Site, Position Yes Yes Yes -Correct Procedure Yes Yes Yes -Procedure Performed Yes Yes Yes -Type of Procedure Debridement Debridement Debridement -Clinical Debridement Subcutaneous Subcutaneous Subcutaneous -Post Debridement Size (cm) - Length 3.6 3.1 3.5 -Post Debridement Size (cm) - Width 3.5 3.4 3.0 -Post Debridement Size (cm) - Depth 0.2 0.2 0.1 -Total Square Cm 12.60 10.54 10.50 -Wound/Ulcer Outcome Not Healed Not Healed Not Healed -Ulcer Cleansing Rinsed/ Rinsed/ Rinsed/ Irrigated with Irrigated with Irrigated with Saline Saline Saline -Foul Odor after Cleansing No No No -Bioengineered Tissue No No No -Bleeding Controlled with Pressure Pressure Pressure -Treatment Response Procedure Procedure Procedure Tolerated Well Tolerated Well Tolerated Well Pain Scale: 0-10 Numeric Is Patient Pain Free? Yes Yes Yes 10/30/17 11:20 Wound Center Nurse 2 #1 R Lat Robb -Time 11:20 -Correct Patient Yes -Correct Side, Site, Position Yes -Correct Procedure Yes -Procedure Performed Yes -Type of Procedure Debridement -Clinical Debridement Subcutaneous -Post Debridement Size (cm) - Length 3.1 -Post Debridement Size (cm) - Width 2.5 -Post Debridement Size (cm) - Depth 0.1 -Total Square Cm 7.75 -Wound/Ulcer Outcome Not Healed -Ulcer Cleansing Rinsed/ Irrigated with Saline -Foul Odor after Cleansing No -Bioengineered Tissue No -Bleeding Controlled with Pressure -Treatment Response Procedure Tolerated Well Pain Scale: 0-10 Numeric Is Patient Pain Free? Yes Wound debrided: Right lower leg Laterality: Right Wound Grade/Stage: 1 Type of Debridement: Excisional debridement Anesthesia Used: 4% Lidocaine Solution Depth: in the subcutaneous layer Percentage of wound debrided: 100 Instrument Used: 5mm curette Tissue Removed: Adherent slough, fibrin, hyperkeratotic tissue, biofilm Severity: Fat Layer Exposed Amount of bleeding with debridement: Mild Bleeding Controlled with: Pressure Patient tolerated procedure well Assessment/Plan Active Problems (Last Reviewed 10/20/17 @ 11:03 by Rose Mary Taylor) Ulcer of right lower extremity with fat layer exposed (Acute) Type 2 diabetes mellitus without complications (Acute) PVD (peripheral vascular disease) (Acute) Lower extremity edema (Acute) Delayed wound healing (Acute) Assessment: Ulcer right lower leg, DM II, PVD Plan: Patient was examined and evaluated again today. Subcutaneous debridement was performed as described in the clinical panel. Following debridement, the ulcer site was carefully cleansed and silvercel was then applied to the ulcer base followed by dry sterile dressing with compression applied from double layered tuibigrips. Patient says she did not like the spandigrips. The patient is to continue to undergo daily dressing changes in this manner. The patient was educated on the importance of keeping compression to the area. The patient is also to keep the ulcer site offloaded at all times making an effort to keep pressure off of the area. LEAS and bilateral venous Doppler exams were ordered. Venous results showed incompetence of some of the veins in lower extremity, especially right sided. I recommend nutritional supplementation with a high- protein diet to optimize healing. The patient was educated on all signs and symptoms of local and systemic infection, and she was instructed to go to the emergency room immediately should she notice any. All other questions and concerns were answered to the patient's satisfaction today. Patient will follow -up in clinic in 1 week or sooner if needed.
== END 2017-11-03 23:59 ==
LOC: WC 10:30
PROVIDERS: Family Provider Family Medicine Geriatric Medicine; PCP Family Medicine Geriatric Medicine; Visit Provider Podiatrist
DX: E11.622 Type 2 diabetes mellitus with other skin ulcer (principal); L97.812 Non-pressure chronic ulcer of other part of right lower leg with fat layer exposed; R60.0 Localized edema; E11.51 Type 2 diabetes mellitus with diabetic peripheral angiopathy without gangrene; M79.89 Other specified soft tissue disorders; Z79.899 Other long term (current) drug therapy; Z79.82 Long term (current) use of aspirin; Z79.84 Long term (current) use of oral hypoglycemic drugs; Z87.891 Personal history of nicotine dependence
CPT/HCPCS: 11042; 93923; 93970; 99203; G0463

== ENCOUNTER → 2017-11-06 13:42 | Outpatient (CLI) | payer MEDICARE, OTHER, SELFPAY ==
--- NOTE | 2017-11-02 10:15 | LEAS ---
Arterial Study - Arterial Study Arterial Study: This is a 66-year-old female with a history of diabetes mellitus, hypertension, and hyperlipidemia. 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 Suspecting the presence of atherosclerotic peripheral arterial occlusive disease, the patient was brought to the noninvasive vascular laboratory at this time for the purpose of bilateral noninvasive lower extremity arterial assessment. Doppler signal assessment was used to evaluate the pulses at ankle level bilaterally. The right posterior tibial pulse was biphasic. The right dorsalis pedis pulse was triphasic. On the left, the posterior tibial and dorsalis pedis pulses were triphasic. Segmental limb pressures were obtained bilaterally. The right ankle pressure, as determined by posterior tibial pulse, was measured at 174 mmHg. The right ankle pressure, as determined by dorsalis pedis pulse, could not be determined due to the noncompressibility of the vasculature. The right digital pressure was measured at 163 mmHg. The left ankle pressure, as determined by posterior tibial and dorsalis pedis pulses, could not be determined due to the noncompressibility of the vasculature. The left digital pressure was measured at 141 mmHg. Pulse-volume recordings were obtained bilaterally and segmentally. Waveform amplitudes appeared to be satisfactory at all levels bilaterally, including low thigh, calf, ankle, and digital levels. Resting ankle-brachial indices were calculated bilaterally. The resting right ankle-brachial index was calculated to be 1.02. The resting left ankle-brachial index could not be determined due to the noncompressibility of the vasculature at ankle level in the left lower extremity. Digital-brachial indices were calculated bilaterally. The right digital-brachial index was calculated to be 0.96. The left digital-brachial index was calculated to be 0.83. Impression: Based upon the findings of this resting noninvasive lower extremity arterial study, arterial perfusion appears to be relatively normal in the lower extremities bilaterally. Biphasic and triphasic waveforms were noted at ankle level on the right. Triphasic waveforms were noted at ankle level on the left. The resting right ankle-brachial index is normal. The resting left ankle-brachial index could not be determined due to the noncompressibility of the vasculature, likely due to arterial calcification. Digital-brachial indices are bilaterally normal, suggesting relatively normal perfusion at digital level bilaterally.
--- NOTE | 2017-11-02 10:20 | LEAS_ITS ---
Arterial Study - Arterial Study Arterial Study: This is a 66-year-old female with a history of diabetes mellitus, hypertension, and hyperlipidemia. 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 Suspecting the presence of atherosclerotic peripheral arterial occlusive disease, the patient was brought to the noninvasive vascular laboratory at this time for the purpose of bilateral noninvasive lower extremity arterial assessment. Doppler signal assessment was used to evaluate the pulses at ankle level bilaterally. The right posterior tibial pulse was biphasic. The right dorsalis pedis pulse was triphasic. On the left, the posterior tibial and dorsalis pedis pulses were triphasic. Segmental limb pressures were obtained bilaterally. The right ankle pressure, as determined by posterior tibial pulse, was measured at 174 mmHg. The right ankle pressure, as determined by dorsalis pedis pulse, could not be determined due to the noncompressibility of the vasculature. The right digital pressure was measured at 163 mmHg. The left ankle pressure, as determined by posterior tibial and dorsalis pedis pulses, could not be determined due to the noncompressibility of the vasculature. The left digital pressure was measured at 141 mmHg. Pulse-volume recordings were obtained bilaterally and segmentally. Waveform amplitudes appeared to be satisfactory at all levels bilaterally, including low thigh, calf, ankle, and digital levels. Resting ankle-brachial indices were calculated bilaterally. The resting right ankle-brachial index was calculated to be 1.02. The resting left ankle- brachial index could not be determined due to the noncompressibility of the vasculature at ankle level in the left lower extremity. Digital-brachial indices were calculated bilaterally. The right digital- brachial index was calculated to be 0.96. The left digital-brachial index was calculated to be 0.83. Impression: Based upon the findings of this resting noninvasive lower extremity arterial study, arterial perfusion appears to be relatively normal in the lower extremities bilaterally. Biphasic and triphasic waveforms were noted at ankle level on the right. Triphasic waveforms were noted at ankle level on the left. The resting right ankle-brachial index is normal. The resting left ankle- brachial index could not be determined due to the noncompressibility of the vasculature, likely due to arterial calcification. Digital-brachial indices are bilaterally normal, suggesting relatively normal perfusion at digital level bilaterally.
--- NOTE | 2017-11-06 13:43 | ECHOD_ITS ---
Reason For Study: MURMUR Procedure This was a 2D Doppler, Color Flow transthoracic echocardiogram. The study was technically difficult. Exam performed in department. Left Ventricle Normal LV size. Left ventricular systolic function is normal. The estimated ejection fraction is 60 %. Stage 2 diastolic dysfunction. No regional wall motion abnormalities noted. Right Ventricle Normal RV size. Normal systolic function. Atria The left atrium is severely enlarged. Normal right atrium. No doppler evidence for ASD. Mitral Valve There is mild to moderate mitral annular calcification. Extension of the mitral annular calcification onto the posterior mitral valve leaflet. Mild diffuse mitral valve thickening. Mild (1+) mitral valve insufficiency. Tricuspid Valve Normal tricuspid valve. Mild tricuspid valve insufficiency. Right ventricular systolic pressure estimated to be 56 mmHg. Aortic Valve Trisinus/trileaflet aortic valve. Mild diffuse aortic valve thickening. Moderate focal aortic valve calcification. Mild to moderate aortic stenosis. Pulmonic Valve The pulmonic valve is not well visualized. Mild (1+) pulmonic valve insufficiency. Great Vessels The aortic root is not well visualized. Pericardium/Pleural Trivial pericardial effusion. There are no echocardiographic indications of cardiac tamponade. MMode/2D Measurements & Calculations LVIDd: 5.3 cm IVSd: 1.2 cm LVOT diam: 2.0 cm LVIDs: 2.9 cm LVPWd: 1.2 cm LVOT area: 3.2 cm2 RVDd: 3.4 cm FS: 45.9 % LAV(MOD-bp): 121.0 ml LA A4 area: 30.6 cm2 RA A4 area: 18.2 cm2 LAV(MOD-bp) Indexed: 61.9 ml/m2 LAV(MOD-sp2): 120.4 ml LAV(MOD-sp4): 120.5 ml Doppler Measurements & Calculations MV E max solo: 149.7 cm/sec Lat Peak E' Solo: 5.0 cm/sec Med Peak E' Solo: 4.8 cm/sec MV A max solo: 105.5 cm/sec E/E' lat: 30.1 E/E' med: 31.4 MV E/A: 1.4 MV V2 max: 150.6 cm/sec Ao V2 max: 286.1 cm/sec LV V1 max: 129.3 cm/sec MV max P.1 mmHg Ao max P.8 mmHg LV V1 max P.7 mmHg MV V2 mean: 82.2 cm/sec Ao V2 mean: 198.9 cm/sec LV V1 mean P.8 mmHg MV mean P.1 mmHg Ao mean P.4 mmHg LV V1 mean: 92.7 cm/sec MV V2 VTI: 45.8 cm Ao V2 VTI: 68.0 cm LV V1 VTI: 30.7 cm MVA(VTI): 2.2 cm2 PARVIZ(I,D): 1.5 cm2 PARVIZ(V,D): 1.5 cm2 SV(LVOT): 98.9 ml PA V2 max: 103.7 cm/sec TR max solo: 364.5 cm/sec TR max P.4 mmHg Interpretation Summary Left ventricular systolic function is normal. The estimated ejection fraction is 60 %. The left atrium is severely enlarged. There is mild to moderate mitral annular calcification. Extension of the mitral annular calcification onto the posterior mitral valve leaflet. Mild diffuse mitral valve thickening. Mild (1+) mitral valve insufficiency. Mild tricuspid valve insufficiency. Mild to moderate aortic stenosis. Mild (1+) pulmonic valve insufficiency. The aortic root is not well visualized. Trivial pericardial effusion. There are no echocardiographic indications of cardiac tamponade. Right ventricular systolic pressure estimated to be 56 mmHg. Stage 2 diastolic dysfunction. Ordering Physician: Imer Alvarado Referring Physician: Albert Jarvis Chi Performed By: Ember Andrews, MANI, RVT
== END ==
PROVIDERS: Family Provider Family Medicine Geriatric Medicine; PCP Family Medicine Geriatric Medicine; Visit Provider Internal Medicine Cardiovascular Disease
DX: E11.622 Type 2 diabetes mellitus with other skin ulcer (principal); I35.0 Nonrheumatic aortic (valve) stenosis; I34.2 Nonrheumatic mitral (valve) stenosis; I27.29 Other secondary pulmonary hypertension; E11.51 Type 2 diabetes mellitus with diabetic peripheral angiopathy without gangrene; R60.0 Localized edema; L97.812 Non-pressure chronic ulcer of other part of right lower leg with fat layer exposed; M79.89 Other specified soft tissue disorders
CPT/HCPCS: 11042; 93306

== ENCOUNTER → 2017-11-11 13:12 | Outpatient (CLI) | payer MEDICARE, OTHER, SELFPAY ==
[2017-11-11 17:20] LABS: Hematocrit 32.1 % (37-47); Hemoglobin 9.4 g/dl (12.0-15.0)
== END ==
PROVIDERS: Family Provider Family Medicine Geriatric Medicine; PCP Family Medicine Geriatric Medicine; Visit Provider Family Medicine Geriatric Medicine
DX: D64.9 Anemia, unspecified (principal)
CPT/HCPCS: 36415; 85014; 85018

== ENCOUNTER 2017-12-04 11:15 | Outpatient (RCR) | payer MEDICARE, OTHER, SELFPAY ==
[2017-11-04 01:07] VITALS: PULSE 79; RESP 18; TEMP 37
[2017-11-06 10:31] VITALS: BP 145/73; PULSE 74; RESP 18; TEMP 36.7
--- NOTE | 2017-11-06 14:25 | PN.PCM_ITS ---
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 (2) Type 2 diabetes mellitus without complications Status: Acute Current Visit: No Code(s): E11.9 - Type 2 diabetes mellitus without complications (3) PVD (peripheral vascular disease) Status: Acute Current Visit: No Code(s): I73.9 - Peripheral vascular disease , unspecified (4) Lower extremity edema Status: Acute Current Visit: No Code(s): R60.0 - Localized edema (5) Delayed wound healing Status: Acute Current Visit: No Code(s): T14.8XXD - Other injury of unspecified body region, subsequent encounter Type of Wound Date of Service: 11/06/17 Chief Complaint: non healing right lower leg ulcer History of Wound: This 66 year old diabetic female was referred to the wound healing center for a non healing ulcer to the right lateral lower leg. The patient says she is unsure the exact amount of time the ulcer has been opened, but says it is around 3 months. She says she has not done anything yet on her own to treat the ulcer. She says there was no trauma or injury that caused the ulcer. She says that she has always had swelling in her lower legs and she does not routinely keep compression on her legs. She has not done anything to treat the area on her own other than keeping the ulcer covered. She denies any pus to the area or any extending redness. She currently denies any feelings of nausea, vomiting, fever, or chills. Progress of Wound: Patient presents to wound center again today for follow up care. The ulcer appears to be improved from last visit again this week. She says she has been keeping compression on the area along with her daily dressing changes and has been cutting the silvercel to fit directly into the ulcer site. She says she has been doubling up her tubigrips as she did not like the spandigrips. She currently denies any feelings of nausea, vomiting, fever, or chills. - Physical Exam Vital Signs Temp Pulse Resp BP 98.1 F 74 18 145/73 H 11/06/17 10:31 11/06/17 10:31 11/06/17 10:31 11/06/17 10:31 General: Alert, Oriented x3, Cooperative, No apparent distress Extremities: Capillary Refill Less than 3 Seconds, No Calf Tenderness - Negative Josh and Rinaldi sign, Diminished Peripheral Pulses - DP pulses palpable and PT pulses nonpalpable due to edema, Edema - Bilateral lower extremity pitting edema with right being worse than left Skin: Ulcer/ Wound - Chronic ulcer right lower leg with measurements noted below. Ulcer base is a mixture of granular tissue, adherent slough, fibrin, biofilm and some slight hyperkeratotic tissue. There continues to be improvement from last week. There is no undermining, no probing to bone, no tracking, no purulence, no malodor, no ascending cellulitis, no significant increase in warmth. Very slight amount of serous drainage appreciated to dressing. Wound Measurements and Assessment WC - Nurse 1 - General Ulcer Measurement Start: 11/06/17 10:30 Freq: Status: Active Protocol: Activity Type Activity Date Activity User E-Sign Co-Sign Detail Recorded Client Recorded Date Recorded By Document 11/06/17 10:31 [id number] 11/06/17 10:46 11/06/17 10:31 Wound Center Nurse 1 [Ulcer Assessment] #1 R Lat Robb -Combined with other wound No -Current Size (cm) - Length 3.0 -Current Size (cm) - Width 2.0 -Current Size (cm) - Depth 0.1 -Total Square Cm 6.00 -Date of Last Picture (Recall this 11/06/17 field) -Photo Taken Yes -Epithelialization Small 1-33% -Tunneling No -Undermining/Tunneling No -Circular Undermining No -Classification - Thickness Full Thickness without Exposed Support Structure -Change in Wound Grade/Stage No Query Text:If change please identify the Stage/Grade in the comment (ie. S2 G3) -Exudate Amt Medium (34-66%) -Exudate Type Serous -Wound Margin Distinct, Outline Attached -Granulation Amt Medium (34-66%) -Granulation Quality Pale Red -Slough/Fibrin Yes -Necrosis Amt None Present (0 %) -Necrotic Tissue Type Adherent Slough -Structure Exposed None/Limited to Skin Breakdown -Texture (Gricel-wound Skin Appearance) No Abnormality -Moisture (Rgicel-wound Skin Appearance No Abnormality ) -Color (Gricel-wound Skin Appearance) No Abnormality -Temperature (Gricel-wound Skin No Abnormality Appearance) (Pt Warm) -Tenderness on Palpation (Gricel-wound No Skin Appearance) -Ulcer Cleansing Rinsed/ Irrigated with Saline -Foul Odor after Cleansing No -Anesthetic Used 4% Lidocaine Solution [Edema Assessment] -Lower Limb Edema Present Yes -Right Calf (cm) 46.5 -Right Ankle (cm) 31.0 -Left Calf (cm) 43.0 -Left Ankle (cm) 30.0 NANCY - Nurse 2 - General Ulcer CM Notes Start: 11/06/17 10:30 Freq: Status: Active Protocol: Activity Type Activity Date Activity User E-Sign Co-Sign Detail Recorded Client Recorded Date Recorded By Document 11/06/17 11:01 MW [id number] 11/06/17 11:03 MW 11/06/17 11:01 Wound Center Nurse 2 [Procedure/Treatment] #1 R Lat Robb -Time 11:02 -Correct Patient Yes -Correct Side, Site, Position Yes -Correct Procedure Yes -Procedure Performed Yes -Type of Procedure Debridement -Clinical Debridement Subcutaneous -Post Debridement Size (cm) - Length 2.8 -Post Debridement Size (cm) - Width 1.9 -Post Debridement Size (cm) - Depth 0.1 -Total Square Cm 5.32 -Wound/Ulcer Outcome Not Healed -Ulcer Cleansing Rinsed/ Irrigated with Saline -Foul Odor after Cleansing No -Bioengineered Tissue No -Bleeding Controlled with Pressure -Treatment Response Procedure Tolerated Well [See Physician Procedure note for Specifics] Pain Scale: 0-10 Numeric [Pain] -Is Patient Pain Free? Yes Musculoskeletal: Tenderness - to ulcer site Neurological: Sensory exam intact to light touch and pain Psych/Mental Status: Normal Affect, Appropriate Debridement Note Post-Debridement Measurements/Treatment - Nurse 2 - General Ulcer CM Notes Start: 11/06/17 10:30 Freq: Status: Active Protocol: Activity Type Activity Date Activity User E-Sign Co-Sign Detail Recorded Client Recorded Date Recorded By Document 11/06/17 11:01 MW [id number] 11/06/17 11:03 MW 11/06/17 11:01 Wound Center Nurse 2 #1 R Lat Robb -Time 11:02 -Correct Patient Yes -Correct Side, Site, Position Yes -Correct Procedure Yes -Procedure Performed Yes -Type of Procedure Debridement -Clinical Debridement Subcutaneous -Post Debridement Size (cm) - Length 2.8 -Post Debridement Size (cm) - Width 1.9 -Post Debridement Size (cm) - Depth 0.1 -Total Square Cm 5.32 -Wound/Ulcer Outcome Not Healed -Ulcer Cleansing Rinsed/ Irrigated with Saline -Foul Odor after Cleansing No -Bioengineered Tissue No -Bleeding Controlled with Pressure -Treatment Response Procedure Tolerated Well Pain Scale: 0-10 Numeric Is Patient Pain Free? Yes Wound debrided: Right lower leg Laterality: Right Type of Debridement: Excisional debridement Anesthesia Used: 4% Lidocaine Solution Depth: in the subcutaneous layer Percentage of wound debrided: 100 Instrument Used: 5mm curette Tissue Removed: Adherent slough, fibrin, hyperkeratotic tissue, biofilm Severity: Fat Layer Exposed Amount of bleeding with debridement: Mild Bleeding Controlled with: Pressure Patient tolerated procedure well Assessment/Plan Assessment: Ulcer right lower leg, DM II, PVD Plan: Patient was examined and evaluated again today. Subcutaneous debridement was again performed as described in the clinical panel. Following debridement, the ulcer site was carefully cleansed and silvercel was then applied to the ulcer base followed by dry sterile dressing with compression applied from double layered tuibigrips. New dressing supplies ordered for the patient. Patient says she did not like the spandigrips. The patient is to continue to undergo daily dressing changes in this manner. The patient was educated on the importance of keeping compression to the area. The patient is also to keep the ulcer site offloaded at all times making an effort to keep pressure off of the area. LEAS and bilateral venous Doppler exams were ordered. Venous results showed incompetence of some of the veins in lower extremity, especially right sided. LEAS studies showed appropriate flow to bilateral lower extremities. I recommend nutritional supplementation with a high-protein diet to optimize healing. The patient was educated on all signs and symptoms of local and systemic infection, and she was instructed to go to the emergency room immediately should she notice any. All other questions and concerns were answered to the patient's satisfaction today. Patient will follow-up in clinic in 1 week or sooner if needed.
[2017-11-13 11:08] VITALS: BP 149/83; PULSE 71; RESP 18; TEMP 36.6
--- NOTE | 2017-11-13 13:18 | PN.PCM_ITS ---
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 (2) Type 2 diabetes mellitus without complications Status: Acute Current Visit: No Code(s): E11.9 - Type 2 diabetes mellitus without complications (3) PVD (peripheral vascular disease) Status: Acute Current Visit: No Code(s): I73.9 - Peripheral vascular disease , unspecified (4) Lower extremity edema Status: Acute Current Visit: No Code(s): R60.0 - Localized edema (5) Delayed wound healing Status: Acute Current Visit: No Code(s): T14.8XXD - Other injury of unspecified body region, subsequent encounter Type of Wound Date of Service: 11/13/17 Chief Complaint: non healing right lower leg ulcer History of Wound: This 66 year old diabetic female was referred to the wound healing center for a non healing ulcer to the right lateral lower leg. The patient says she is unsure the exact amount of time the ulcer has been opened, but says it is around 3 months. She says she has not done anything yet on her own to treat the ulcer. She says there was no trauma or injury that caused the ulcer. She says that she has always had swelling in her lower legs and she does not routinely keep compression on her legs. She has not done anything to treat the area on her own other than keeping the ulcer covered. She denies any pus to the area or any extending redness. She currently denies any feelings of nausea, vomiting, fever, or chills. Progress of Wound: Patient presents to wound center again today for follow up care. The ulcer appears to be slightly improved from last visit again this week. She says she has been keeping compression on the area along with her daily dressing changes and has been cutting the silvercel to fit directly into the ulcer site. She says she has been doubling up her tubigrips still. She currently denies any feelings of nausea, vomiting, fever, or chills. - Physical Exam Vital Signs Temp Pulse Resp BP 97.8 F 71 18 149/83 H 11/13/17 11:08 11/13/17 11:08 11/13/17 11:08 11/13/17 11:08 General: Alert, Oriented x3, Cooperative, No apparent distress Extremities: Capillary Refill Less than 3 Seconds, No Calf Tenderness - Negative Josh and Rinaldi sign, Diminished Peripheral Pulses - DP pulses palpable and PT pulses nonpalpable due to edema, Edema - Bilateral lower extremity pitting edema with right being worse than left Skin: Ulcer/ Wound - Chronic ulcer right lower leg with measurements noted below. Ulcer base continues to be a mixture of granular tissue, adherent slough , fibrin, biofilm and some hyperkeratotic tissue still noted. Slightly more granular tissue this week than last. There continues to be no undermining, no probing to bone, no tracking, no purulence, no malodor, no cellulitis, no increase in warmth. Wound Measurements and Assessment WC - Nurse 1 - General Ulcer Measurement Start: 11/06/17 10:30 Freq: Status: Active Protocol: Activity Type Activity Date Activity User E-Sign Co-Sign Detail Recorded Client Recorded Date Recorded By Document 11/13/17 11:08 [id number] 11/13/17 11:10 11/13/17 11:08 Wound Center Nurse 1 [Ulcer Assessment] #1 R Lat Robb -Combined with other wound No -Current Size (cm) - Length 2.5 -Current Size (cm) - Width 1.5 -Current Size (cm) - Depth 0.1 -Total Square Cm 3.75 -Photo Taken No -Epithelialization Small 1-33% -Tunneling No -Undermining/Tunneling No -Circular Undermining No -Classification - Thickness Full Thickness without Exposed Support Structure -Exudate Amt Small (1-33%) -Exudate Type Serosanguineous -Wound Margin Distinct, Outline Attached -Granulation Amt Large (67-100%) -Granulation Quality Red -Slough/Fibrin Yes -Necrosis Amt Small (1-33%) -Necrotic Tissue Type Adherent Slough -Structure Exposed Fascia Fat Layer Exposed -Texture (Gricel-wound Skin Appearance) Localized Edema -Moisture (Gricel-wound Skin Appearance No Abnormality ) -Color (Gricel-wound Skin Appearance) Erythema Hemosiderin Staining -Temperature (Gricel-wound Skin No Abnormality Appearance) (Pt Warm) -Tenderness on Palpation (Gricel-wound No Skin Appearance) -Ulcer Cleansing Rinsed/ Irrigated with Saline -Foul Odor after Cleansing No -Anesthetic Used 5% Lidocaine Gel [Edema Assessment] -Lower Limb Edema Present Yes -Right Calf (cm) 41.5 -Right Ankle (cm) 28.5 WC - Nurse 2 - General Ulcer CM Notes Start: 11/06/17 10:30 Freq: Status: Active Protocol: Activity Type Activity Date Activity User E-Sign Co-Sign Detail Recorded Client Recorded Date Recorded By Document 11/13/17 11:39 MW [id number] 11/13/17 11:41 MW 11/13/17 11:39 Wound Center Nurse 2 [Procedure/Treatment] #1 R Lat Robb -Time 11:39 -Correct Patient Yes -Correct Side, Site, Position Yes -Correct Procedure Yes -Procedure Performed Yes -Type of Procedure Debridement -Clinical Debridement Subcutaneous -Post Debridement Size (cm) - Length 2.7 -Post Debridement Size (cm) - Width 1.8 -Post Debridement Size (cm) - Depth 0.1 -Total Square Cm 4.86 -Wound/Ulcer Outcome Not Healed -Ulcer Cleansing Rinsed/ Irrigated with Saline -Foul Odor after Cleansing No -Bioengineered Tissue No -Bleeding Controlled with Pressure -Treatment Response Procedure Tolerated Well [See Physician Procedure note for Specifics] Pain Scale: 0-10 Numeric [Pain] -Is Patient Pain Free? Yes Musculoskeletal: Tenderness - To the ulcer site Neurological: Sensory exam intact to light touch and pain Psych/Mental Status: Normal Affect, Appropriate Debridement Note Post-Debridement Measurements/Treatment - Nurse 2 - General Ulcer CM Notes Start: 11/06/17 10:30 Freq: Status: Active Protocol: Activity Type Activity Date Activity User E-Sign Co-Sign Detail Recorded Client Recorded Date Recorded By Document 11/06/17 11:01 MW [id number] 11/06/17 11:03 MW Document 11/13/17 11:39 MW [id number] 11/13/17 11:41 MW 11/06/17 11/13/17 11:01 11:39 Wound Center Nurse 2 #1 R Lat Robb -Time 11:02 11:39 -Correct Patient Yes Yes -Correct Side, Site, Position Yes Yes -Correct Procedure Yes Yes -Procedure Performed Yes Yes -Type of Procedure Debridement Debridement -Clinical Debridement Subcutaneous Subcutaneous -Post Debridement Size (cm) - Length 2.8 2.7 -Post Debridement Size (cm) - Width 1.9 1.8 -Post Debridement Size (cm) - Depth 0.1 0.1 -Total Square Cm 5.32 4.86 -Wound/Ulcer Outcome Not Healed Not Healed -Ulcer Cleansing Rinsed/ Rinsed/ Irrigated with Irrigated with Saline Saline -Foul Odor after Cleansing No No -Bioengineered Tissue No No -Bleeding Controlled with Pressure Pressure -Treatment Response Procedure Procedure Tolerated Well Tolerated Well Pain Scale: 0-10 Numeric Is Patient Pain Free? Yes Yes Wound debrided: Right lower leg Laterality: Right Type of Debridement: Excisional debridement Anesthesia Used: 4% Lidocaine Solution Depth: in the subcutaneous layer Percentage of wound debrided: 100 Instrument Used: 5mm curette Tissue Removed: Adherent slough, fibrin, hyperkeratotic tissue, biofilm Severity: Fat Layer Exposed Amount of bleeding with debridement: Mild Bleeding Controlled with: Pressure Patient tolerated procedure well Assessment/Plan Assessment: Ulcer right lower leg, DM II, PVD Plan: Patient was examined and evaluated again today. Subcutaneous debridement was again performed as described in the clinical panel. Following debridement, the ulcer site was carefully cleansed and silvercel was then applied to the ulcer base followed by dry sterile dressing with compression applied from double layered tuibigrips. The patient is to continue to undergo daily dressing changes in this manner. The patient was educated on the importance of keeping compression to the area. The patient is also to keep the ulcer site offloaded at all times making an effort to keep pressure off of the area. LEAS and bilateral venous Doppler exams were ordered. Venous results showed incompetence of some of the veins in lower extremity, especially right sided. LEAS studies showed appropriate flow to bilateral lower extremities. I recommend nutritional supplementation with a high-protein diet to optimize healing. The patient was educated on all signs and symptoms of local and systemic infection, and she was instructed to go to the emergency room immediately should she notice any. All other questions and concerns were answered to the patient's satisfaction today. Patient will follow-up in clinic in 1 week or sooner if needed.
[2017-11-20 10:54] VITALS: BP 158/81; PULSE 65; RESP 16; TEMP 36.9
--- NOTE | 2017-11-20 12:49 | PCM.WC.PN ---
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 (2) Type 2 diabetes mellitus without complications Status: Acute Current Visit: No Code(s): E11.9 - Type 2 diabetes mellitus without complications (3) PVD (peripheral vascular disease) Status: Acute Current Visit: No Code(s): I73.9 - Peripheral vascular disease, unspecified (4) Lower extremity edema Status: Acute Current Visit: No Code(s): R60.0 - Localized edema (5) Delayed wound healing Status: Acute Current Visit: No Code(s): T14.8XXD - Other injury of unspecified body region, subsequent encounter Type of Wound Date of Service: 11/20/17 Chief Complaint: non healing right lower leg ulcer History of Wound: This 66 year old diabetic female was referred to the wound healing center for a non healing ulcer to the right lateral lower leg. The patient says she is unsure the exact amount of time the ulcer has been opened, but says it is around 3 months. She says she has not done anything yet on her own to treat the ulcer. She says there was no trauma or injury that caused the ulcer. She says that she has always had swelling in her lower legs and she does not routinely keep compression on her legs. She has not done anything to treat the area on her own other than keeping the ulcer covered. She denies any pus to the area or any extending redness. She currently denies any feelings of nausea, vomiting, fever, or chills. Progress of Wound: Patient presents to wound center again today for follow up care. The ulcer is improving. The ulcer appears to be slightly improved from last visit again this week. She says she has been keeping compression on the area along with her daily dressing changes and has been cutting the silvercel to fit directly into the ulcer site. She says she has been doubling up her tubigrips still. She currently denies any feelings of nausea, vomiting, fever, or chills. - Physical Exam Vital Signs Temp Pulse Resp BP 98.4 F 65 16 158/81 H 11/20/17 10:54 11/20/17 10:54 11/20/17 10:54 11/20/17 10:54 General: Alert, Oriented x3, Cooperative, No apparent distress Extremities: Capillary Refill Less than 3 Seconds, No Calf Tenderness - Negative Josh and Rinaldi sign, Diminished Peripheral Pulses - DP pulses palpable and PT pulses nonpalpable due to edema, Edema - Bilateral lower extremity pitting edema with right being worse than left Skin: Ulcer/ Wound - Chronic ulcer to right lower leg with measurements noted below. Ulcer base continues to be a mixture of granular tissue, adherent slough, fibrin, biofilm as well as some minor hyperkeratotic tissue noted around the area as well. There continues to be no undermining, no probing to bone, no tracking, no purulence, no malodor, no cellulitis, or increase in warmth. Wound Measurements and Assessment WC - Nurse 1 - General Ulcer Measurement Start: 11/06/17 10:30 Freq: Status: Active Protocol: Activity Type Activity Date Activity User E-Sign Co-Sign Detail Recorded Client Recorded Date Recorded By Document 11/20/17 10:54 GLENNA [id number] 11/20/17 11:04 GLENNA 11/20/17 10:54 Wound Center Nurse 1 [Ulcer Assessment] #1 R Lat Robb -Combined with other wound No -Current Size (cm) - Length 2.7 -Current Size (cm) - Width 1.5 -Current Size (cm) - Depth 0.1 -Total Square Cm 4.05 -Photo Taken No -Epithelialization Small 1-33% -Tunneling No -Undermining/Tunneling No -Circular Undermining No -Exudate Amt Small (1-33%) -Exudate Type Serosanguineous -Wound Margin Distinct, Outline Attached -Granulation Amt Large (67-100%) -Granulation Quality Red -Slough/Fibrin Yes -Necrosis Amt Small (1-33%) -Necrotic Tissue Type Adherent Slough -Structure Exposed None/Limited to Skin Breakdown -Texture (Gricel-wound Skin Appearance) Scarring -Moisture (Gricel-wound Skin Appearance Assessed ) -Color (Gricel-wound Skin Appearance) Assessed -Temperature (Gricel-wound Skin No Abnormality Appearance) (Pt Warm) -Tenderness on Palpation (Gricel-wound No Skin Appearance) -Ulcer Cleansing Rinsed/ Irrigated with Saline -Foul Odor after Cleansing No -Anesthetic Used 4% Lidocaine Solution [Edema Assessment] -Lower Limb Edema Present Yes -Right Calf (cm) 44 -Right Ankle (cm) 29.6 -Left Calf (cm) 40.9 -Left Ankle (cm) 27.4 WC - Nurse 2 - General Ulcer CM Notes Start: 11/06/17 10:30 Freq: Status: Active Protocol: Activity Type Activity Date Activity User E-Sign Co-Sign Detail Recorded Client Recorded Date Recorded By Document 11/20/17 11:47 JS [id number] 11/20/17 11:50 JS 11/20/17 11:47 Wound Center Nurse 2 [Procedure/Treatment] #1 R Lat Robb -Time 11:47 -Correct Patient Yes -Correct Side, Site, Position Yes -Correct Procedure Yes -Procedure Performed Yes -Type of Procedure Debridement -Clinical Debridement Subcutaneous -Post Debridement Size (cm) - Length 2 -Post Debridement Size (cm) - Width 0.4 -Post Debridement Size (cm) - Depth 1.7 -Total Square Cm 0.8 -Wound/Ulcer Outcome Not Healed -Ulcer Cleansing Rinsed/ Irrigated with Saline -Foul Odor after Cleansing No -Bioengineered Tissue No -Topical Lidocaine (%) 5 -Bleeding Controlled with NA -Treatment Response Procedure Tolerated Well [See Physician Procedure note for Specifics] Pain Scale: 0-10 Numeric [Pain] -Is Patient Pain Free? Yes Musculoskeletal: Tenderness - With manipulation of the ulcer site Neurological: Sensory exam intact to light touch and pain Psych/Mental Status: Normal Affect, Appropriate Debridement Note Post-Debridement Measurements/Treatment WC - Nurse 2 - General Ulcer CM Notes Start: 11/06/17 10:30 Freq: Status: Active Protocol: Activity Type Activity Date Activity User E-Sign Co-Sign Detail Recorded Client Recorded Date Recorded By Document 11/06/17 11:01 MW [id number] 11/06/17 11:03 MW Document 11/13/17 11:39 MW [id number] 11/13/17 11:41 MW Document 11/20/17 11:47 JS [id number] 11/20/17 11:50 JS 11/06/17 11/13/17 11/20/17 11:01 11:39 11:47 Wound Center Nurse 2 #1 R Lat Robb -Time 11:02 11:39 11:47 -Correct Patient Yes Yes Yes -Correct Side, Site, Position Yes Yes Yes -Correct Procedure Yes Yes Yes -Procedure Performed Yes Yes Yes -Type of Procedure Debridement Debridement Debridement -Clinical Debridement Subcutaneous Subcutaneous Subcutaneous -Post Debridement Size (cm) - Length 2.8 2.7 2 -Post Debridement Size (cm) - Width 1.9 1.8 0.4 -Post Debridement Size (cm) - Depth 0.1 0.1 1.7 -Total Square Cm 5.32 4.86 0.8 -Wound/Ulcer Outcome Not Healed Not Healed Not Healed -Ulcer Cleansing Rinsed/ Rinsed/ Rinsed/ Irrigated with Irrigated with Irrigated with Saline Saline Saline -Foul Odor after Cleansing No No No -Bioengineered Tissue No No No -Topical Lidocaine (%) 5 -Bleeding Controlled with Pressure Pressure NA -Treatment Response Procedure Procedure Procedure Tolerated Well Tolerated Well Tolerated Well Pain Scale: 0-10 Numeric Is Patient Pain Free? Yes Yes Yes Wound debrided: Right lower leg Laterality: Right Type of Debridement: Excisional debridement Anesthesia Used: 4% Lidocaine Solution Depth: in the subcutaneous layer Percentage of wound debrided: 100 Instrument Used: 3mm curette Tissue Removed: Adherent slough, fibrin, biofilm, hyperkeratotic tissue Severity: Fat Layer Exposed Amount of bleeding with debridement: Mild Bleeding Controlled with: Pressure Patient tolerated procedure well Assessment/Plan Assessment: Ulcer right lower leg, DM II, PVD Plan: Patient was examined and evaluated again today. Subcutaneous debridement was again performed as described in the clinical panel. Following debridement, the ulcer site was carefully cleansed and silvercel was then applied to the ulcer base followed by dry sterile dressing with compression applied from double layered tuibigrips. The patient is to continue to undergo daily dressing changes in this manner. The patient was educated on the importance of keeping compression to the area. The patient is also to keep the ulcer site offloaded at all times making an effort to keep pressure off of the area. I recommend nutritional supplementation with a high-protein diet to optimize healing. The patient was educated on all signs and symptoms of local and systemic infection, and she was instructed to go to the emergency room immediately should she notice any. All other questions and concerns were answered to the patient's satisfaction today. Patient will follow-up in clinic in 1 week or sooner if needed.
--- NOTE | 2017-11-20 12:52 | PN.PCM_ITS ---
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 (2) Type 2 diabetes mellitus without complications Status: Acute Current Visit: No Code(s): E11.9 - Type 2 diabetes mellitus without complications (3) PVD (peripheral vascular disease) Status: Acute Current Visit: No Code(s): I73.9 - Peripheral vascular disease , unspecified (4) Lower extremity edema Status: Acute Current Visit: No Code(s): R60.0 - Localized edema (5) Delayed wound healing Status: Acute Current Visit: No Code(s): T14.8XXD - Other injury of unspecified body region, subsequent encounter Type of Wound Date of Service: 11/20/17 Chief Complaint: non healing right lower leg ulcer History of Wound: This 66 year old diabetic female was referred to the wound healing center for a non healing ulcer to the right lateral lower leg. The patient says she is unsure the exact amount of time the ulcer has been opened, but says it is around 3 months. She says she has not done anything yet on her own to treat the ulcer. She says there was no trauma or injury that caused the ulcer. She says that she has always had swelling in her lower legs and she does not routinely keep compression on her legs. She has not done anything to treat the area on her own other than keeping the ulcer covered. She denies any pus to the area or any extending redness. She currently denies any feelings of nausea, vomiting, fever, or chills. Progress of Wound: Patient presents to wound center again today for follow up care. The ulcer is improving. The ulcer appears to be slightly improved from last visit again this week. She says she has been keeping compression on the area along with her daily dressing changes and has been cutting the silvercel to fit directly into the ulcer site. She says she has been doubling up her tubigrips still. She currently denies any feelings of nausea, vomiting, fever, or chills. - Physical Exam Vital Signs Temp Pulse Resp BP 98.4 F 65 16 158/81 H 11/20/17 10:54 11/20/17 10:54 11/20/17 10:54 11/20/17 10:54 General: Alert, Oriented x3, Cooperative, No apparent distress Extremities: Capillary Refill Less than 3 Seconds, No Calf Tenderness - Negative Josh and Rinaldi sign, Diminished Peripheral Pulses - DP pulses palpable and PT pulses nonpalpable due to edema, Edema - Bilateral lower extremity pitting edema with right being worse than left Skin: Ulcer/ Wound - Chronic ulcer to right lower leg with measurements noted below. Ulcer base continues to be a mixture of granular tissue, adherent slough , fibrin, biofilm as well as some minor hyperkeratotic tissue noted around the area as well. There continues to be no undermining, no probing to bone, no tracking, no purulence, no malodor, no cellulitis, or increase in warmth. Wound Measurements and Assessment WC - Nurse 1 - General Ulcer Measurement Start: 11/06/17 10:30 Freq: Status: Active Protocol: Activity Type Activity Date Activity User E-Sign Co-Sign Detail Recorded Client Recorded Date Recorded By Document 11/20/17 10:54 GLENNA [id number] 11/20/17 11:04 GLENNA 11/20/17 10:54 Wound Center Nurse 1 [Ulcer Assessment] #1 R Lat Robb -Combined with other wound No -Current Size (cm) - Length 2.7 -Current Size (cm) - Width 1.5 -Current Size (cm) - Depth 0.1 -Total Square Cm 4.05 -Photo Taken No -Epithelialization Small 1-33% -Tunneling No -Undermining/Tunneling No -Circular Undermining No -Exudate Amt Small (1-33%) -Exudate Type Serosanguineous -Wound Margin Distinct, Outline Attached -Granulation Amt Large (67-100%) -Granulation Quality Red -Slough/Fibrin Yes -Necrosis Amt Small (1-33%) -Necrotic Tissue Type Adherent Slough -Structure Exposed None/Limited to Skin Breakdown -Texture (Gricel-wound Skin Appearance) Scarring -Moisture (Gricel-wound Skin Appearance Assessed ) -Color (Gricel-wound Skin Appearance) Assessed -Temperature (Gricel-wound Skin No Abnormality Appearance) (Pt Warm) -Tenderness on Palpation (Gricel-wound No Skin Appearance) -Ulcer Cleansing Rinsed/ Irrigated with Saline -Foul Odor after Cleansing No -Anesthetic Used 4% Lidocaine Solution [Edema Assessment] -Lower Limb Edema Present Yes -Right Calf (cm) 44 -Right Ankle (cm) 29.6 -Left Calf (cm) 40.9 -Left Ankle (cm) 27.4 WC - Nurse 2 - General Ulcer CM Notes Start: 11/06/17 10:30 Freq: Status: Active Protocol: Activity Type Activity Date Activity User E-Sign Co-Sign Detail Recorded Client Recorded Date Recorded By Document 11/20/17 11:47 JS [id number] 11/20/17 11:50 JS 11/20/17 11:47 Wound Center Nurse 2 [Procedure/Treatment] #1 R Lat Robb -Time 11:47 -Correct Patient Yes -Correct Side, Site, Position Yes -Correct Procedure Yes -Procedure Performed Yes -Type of Procedure Debridement -Clinical Debridement Subcutaneous -Post Debridement Size (cm) - Length 2 -Post Debridement Size (cm) - Width 0.4 -Post Debridement Size (cm) - Depth 1.7 -Total Square Cm 0.8 -Wound/Ulcer Outcome Not Healed -Ulcer Cleansing Rinsed/ Irrigated with Saline -Foul Odor after Cleansing No -Bioengineered Tissue No -Topical Lidocaine (%) 5 -Bleeding Controlled with NA -Treatment Response Procedure Tolerated Well [See Physician Procedure note for Specifics] Pain Scale: 0-10 Numeric [Pain] -Is Patient Pain Free? Yes Musculoskeletal: Tenderness - With manipulation of the ulcer site Neurological: Sensory exam intact to light touch and pain Psych/Mental Status: Normal Affect, Appropriate Debridement Note Post-Debridement Measurements/Treatment WC - Nurse 2 - General Ulcer CM Notes Start: 11/06/17 10:30 Freq: Status: Active Protocol: Activity Type Activity Date Activity User E-Sign Co-Sign Detail Recorded Client Recorded Date Recorded By Document 11/06/17 11:01 MW [id number] 11/06/17 11:03 MW Document 11/13/17 11:39 MW [id number] 11/13/17 11:41 MW Document 11/20/17 11:47 JS [id number] 11/20/17 11:50 JS 11/06/17 11/13/17 11/20/17 11:01 11:39 11:47 Wound Center Nurse 2 #1 R Lat Robb -Time 11:02 11:39 11:47 -Correct Patient Yes Yes Yes -Correct Side, Site, Position Yes Yes Yes -Correct Procedure Yes Yes Yes -Procedure Performed Yes Yes Yes -Type of Procedure Debridement Debridement Debridement -Clinical Debridement Subcutaneous Subcutaneous Subcutaneous -Post Debridement Size (cm) - Length 2.8 2.7 2 -Post Debridement Size (cm) - Width 1.9 1.8 0.4 -Post Debridement Size (cm) - Depth 0.1 0.1 1.7 -Total Square Cm 5.32 4.86 0.8 -Wound/Ulcer Outcome Not Healed Not Healed Not Healed -Ulcer Cleansing Rinsed/ Rinsed/ Rinsed/ Irrigated with Irrigated with Irrigated with Saline Saline Saline -Foul Odor after Cleansing No No No -Bioengineered Tissue No No No -Topical Lidocaine (%) 5 -Bleeding Controlled with Pressure Pressure NA -Treatment Response Procedure Procedure Procedure Tolerated Well Tolerated Well Tolerated Well Pain Scale: 0-10 Numeric Is Patient Pain Free? Yes Yes Yes Wound debrided: Right lower leg Laterality: Right Type of Debridement: Excisional debridement Anesthesia Used: 4% Lidocaine Solution Depth: in the subcutaneous layer Percentage of wound debrided: 100 Instrument Used: 3mm curette Tissue Removed: Adherent slough, fibrin, biofilm, hyperkeratotic tissue Severity: Fat Layer Exposed Amount of bleeding with debridement: Mild Bleeding Controlled with: Pressure Patient tolerated procedure well Assessment/Plan Assessment: Ulcer right lower leg, DM II, PVD Plan: Patient was examined and evaluated again today. Subcutaneous debridement was again performed as described in the clinical panel. Following debridement, the ulcer site was carefully cleansed and silvercel was then applied to the ulcer base followed by dry sterile dressing with compression applied from double layered tuibigrips. The patient is to continue to undergo daily dressing changes in this manner. The patient was educated on the importance of keeping compression to the area. The patient is also to keep the ulcer site offloaded at all times making an effort to keep pressure off of the area. I recommend nutritional supplementation with a high-protein diet to optimize healing. The patient was educated on all signs and symptoms of local and systemic infection, and she was instructed to go to the emergency room immediately should she notice any. All other questions and concerns were answered to the patient's satisfaction today. Patient will follow-up in clinic in 1 week or sooner if needed.
[2017-11-27 11:37] VITALS: BP 181/88; PULSE 65; RESP 18; TEMP 36.6
--- NOTE | 2017-11-27 15:14 | PCM.WC.PN ---
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 (2) Type 2 diabetes mellitus without complications Status: Acute Current Visit: No Code(s): E11.9 - Type 2 diabetes mellitus without complications (3) PVD (peripheral vascular disease) Status: Acute Current Visit: No Code(s): I73.9 - Peripheral vascular disease, unspecified (4) Lower extremity edema Status: Acute Current Visit: No Code(s): R60.0 - Localized edema (5) Delayed wound healing Status: Acute Current Visit: No Code(s): T14.8XXD - Other injury of unspecified body region, subsequent encounter Type of Wound Date of Service: 11/27/17 Chief Complaint: non healing right lower leg ulcer History of Wound: This 66 year old diabetic female was referred to the wound healing center for a non healing ulcer to the right lateral lower leg. The patient says she is unsure the exact amount of time the ulcer has been opened, but says it is around 3 months. She says she has not done anything yet on her own to treat the ulcer. She says there was no trauma or injury that caused the ulcer. She says that she has always had swelling in her lower legs and she does not routinely keep compression on her legs. She has not done anything to treat the area on her own other than keeping the ulcer covered. She denies any pus to the area or any extending redness. She currently denies any feelings of nausea, vomiting, fever, or chills. Progress of Wound: Patient presents to wound center again today for follow up care. The ulcer is continuing to improve. She says she has been keeping compression on the area along with her daily dressing changes and has been cutting the silvercel to fit directly into the ulcer site. She says she has been doubling up her tubigrips still. She currently denies any feelings of nausea, vomiting, fever, or chills. - Physical Exam Vital Signs Temp Pulse Resp BP 98 F 65 18 181/88 H 11/27/17 11:37 11/27/17 11:37 11/27/17 11:37 11/27/17 11:37 General: Alert, Oriented x3, Cooperative, No apparent distress Extremities: Capillary Refill Less than 3 Seconds, No Calf Tenderness - Negative Josh and Rinaldi sign, Diminished Peripheral Pulses - DP pulses palpable and PT pulses nonpalpable due to edema, Edema - Bilateral lower extremity pitting edema with right being worse than left Skin: Ulcer/ Wound - Chronic ulcer to right lower leg with measurements noted below. Ulcer appears smaller again this week. The base continues to be a mixture of granular tissue, adherent slough, fibrin, biofilm and some slight hyperkeratotic tissue around the base. There is no undermining, no probing to bone, no tracking, no purulence, no malodor, no cellulitis and no increase in warmth. Wound Measurements and Assessment WC - Nurse 1 - General Ulcer Measurement Start: 11/06/17 10:30 Freq: Status: Active Protocol: Activity Type Activity Date Activity User E-Sign Co-Sign Detail Recorded Client Recorded Date Recorded By Document 11/27/17 11:37 TN [id number] 11/27/17 11:45 TN 11/27/17 11:37 Wound Center Nurse 1 [Ulcer Assessment] #1 R Lat Robb -Combined with other wound No -Current Size (cm) - Length 2.3 -Current Size (cm) - Width 1.4 -Current Size (cm) - Depth 0.1 -Total Square Cm 3.22 -Photo Taken No -Epithelialization None Present -Tunneling No -Undermining/Tunneling No -Circular Undermining No -Classification - Thickness Full Thickness without Exposed Support Structure -Change in Wound Grade/Stage No Query Text:If change please identify the Stage/Grade in the comment (ie. S2 G3) -Exudate Type Serous -Wound Margin Indistinct, Non -Visible -Granulation Amt Small (1-33%) -Granulation Quality Red -Slough/Fibrin Yes -Necrosis Amt Large (67-100%) -Necrotic Tissue Type Adherent Slough -Structure Exposed None/Limited to Skin Breakdown -Texture (Gricel-wound Skin Appearance) Assessed Localized Edema Scarring -Moisture (Gricel-wound Skin Appearance No Abnormality ) Assessed -Color (Gricel-wound Skin Appearance) No Abnormality Assessed -Temperature (Gricel-wound Skin No Abnormality Appearance) (Pt Warm) -Tenderness on Palpation (Gricel-wound No Skin Appearance) -Ulcer Cleansing Rinsed/ Irrigated with Saline -Foul Odor after Cleansing No -Anesthetic Used 4% Lidocaine Solution [Edema Assessment] -Lower Limb Edema Present Yes -Right Calf (cm) 45.5 -Right Ankle (cm) 31 -Left Calf (cm) 41.9 -Left Ankle (cm) 26 WC - Nurse 2 - General Ulcer CM Notes Start: 11/06/17 10:30 Freq: Status: Active Protocol: Activity Type Activity Date Activity User E-Sign Co-Sign Detail Recorded Client Recorded Date Recorded By Document 11/27/17 12:25 JF [id number] 11/27/17 12:26 JF 11/27/17 12:25 Wound Center Nurse 2 [Procedure/Treatment] #1 R Lat Robb -Time 12:26 -Correct Patient Yes -Correct Side, Site, Position Yes -Correct Procedure Yes -Procedure Performed Yes -Type of Procedure Debridement -Clinical Debridement Subcutaneous -Post Debridement Size (cm) - Length 1.9 -Post Debridement Size (cm) - Width 1.0 -Post Debridement Size (cm) - Depth 0.1 -Total Square Cm 1.90 -Wound/Ulcer Outcome Not Healed -Ulcer Cleansing Rinsed/ Irrigated with Saline -Foul Odor after Cleansing No -Bioengineered Tissue No -Bleeding Controlled with Pressure -Treatment Response Procedure Tolerated Well [See Physician Procedure note for Specifics] Pain Scale: 0-10 Numeric [Pain] -Is Patient Pain Free? Yes Musculoskeletal: Tenderness - With manipulation of ulcer site Neurological: Sensory exam intact to light touch and pain Psych/Mental Status: Normal Affect, Appropriate Debridement Note Post-Debridement Measurements/Treatment - Nurse 2 - General Ulcer CM Notes Start: 11/06/17 10:30 Freq: Status: Active Protocol: Activity Type Activity Date Activity User E-Sign Co-Sign Detail Recorded Client Recorded Date Recorded By Document 11/06/17 11:01 MW [id number] 11/06/17 11:03 MW Document 11/13/17 11:39 MW [id number] 11/13/17 11:41 MW Document 11/20/17 11:47 JS [id number] 11/20/17 11:50 JS Document 11/27/17 12:25 JF [id number] 11/27/17 12:26 JF 11/06/17 11/13/17 11/20/17 11:01 11:39 11:47 Wound Center Nurse 2 #1 R Lat Robb -Time 11:02 11:39 11:47 -Correct Patient Yes Yes Yes -Correct Side, Site, Position Yes Yes Yes -Correct Procedure Yes Yes Yes -Procedure Performed Yes Yes Yes -Type of Procedure Debridement Debridement Debridement -Clinical Debridement Subcutaneous Subcutaneous Subcutaneous -Post Debridement Size (cm) - Length 2.8 2.7 2 -Post Debridement Size (cm) - Width 1.9 1.8 0.4 -Post Debridement Size (cm) - Depth 0.1 0.1 1.7 -Total Square Cm 5.32 4.86 0.8 -Wound/Ulcer Outcome Not Healed Not Healed Not Healed -Ulcer Cleansing Rinsed/ Rinsed/ Rinsed/ Irrigated with Irrigated with Irrigated with Saline Saline Saline -Foul Odor after Cleansing No No No -Bioengineered Tissue No No No -Topical Lidocaine (%) 5 -Bleeding Controlled with Pressure Pressure NA -Treatment Response Procedure Procedure Procedure Tolerated Well Tolerated Well Tolerated Well Pain Scale: 0-10 Numeric Is Patient Pain Free? Yes Yes Yes 11/27/17 12:25 Wound Center Nurse 2 #1 R Lat Robb -Time 12:26 -Correct Patient Yes -Correct Side, Site, Position Yes -Correct Procedure Yes -Procedure Performed Yes -Type of Procedure Debridement -Clinical Debridement Subcutaneous -Post Debridement Size (cm) - Length 1.9 -Post Debridement Size (cm) - Width 1.0 -Post Debridement Size (cm) - Depth 0.1 -Total Square Cm 1.90 -Wound/Ulcer Outcome Not Healed -Ulcer Cleansing Rinsed/ Irrigated with Saline -Foul Odor after Cleansing No -Bioengineered Tissue No -Topical Lidocaine (%) -Bleeding Controlled with Pressure -Treatment Response Procedure Tolerated Well Pain Scale: 0-10 Numeric Is Patient Pain Free? Yes Wound debrided: Right lower leg Laterality: Right Type of Debridement: Excisional debridement Anesthesia Used: 4% Lidocaine Solution Depth: in the subcutaneous layer Percentage of wound debrided: 100 Tissue Removed: Adherent slough, fibrin, biofilm, hyperkeratotic tissue Severity: Fat Layer Exposed Amount of bleeding with debridement: Mild Bleeding Controlled with: Pressure Patient tolerated procedure well Assessment/Plan Assessment: Ulcer right lower leg, DM II, PVD Plan: Patient was examined and evaluated again today. Subcutaneous debridement was again performed as described in the clinical panel. Following debridement, the ulcer site was carefully cleansed and silvercel was then applied to the ulcer base followed by dry sterile dressing. Compression applied with double layered tuibigrips. The patient is to continue to undergo daily dressing changes in this manner. The patient was educated on the importance of keeping compression to the area. The patient is also to keep the ulcer site offloaded at all times making an effort to keep pressure off of the area. I recommend nutritional supplementation with a high-protein diet to optimize healing. The patient was educated on all signs and symptoms of local and systemic infection, and she was instructed to go to the emergency room immediately should she notice any. All other questions and concerns were answered to the patient's satisfaction today. Patient will follow-up in clinic in 1 week or sooner if needed.
--- NOTE | 2017-11-27 15:18 | PN.PCM_ITS ---
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 (2) Type 2 diabetes mellitus without complications Status: Acute Current Visit: No Code(s): E11.9 - Type 2 diabetes mellitus without complications (3) PVD (peripheral vascular disease) Status: Acute Current Visit: No Code(s): I73.9 - Peripheral vascular disease , unspecified (4) Lower extremity edema Status: Acute Current Visit: No Code(s): R60.0 - Localized edema (5) Delayed wound healing Status: Acute Current Visit: No Code(s): T14.8XXD - Other injury of unspecified body region, subsequent encounter Type of Wound Date of Service: 11/27/17 Chief Complaint: non healing right lower leg ulcer History of Wound: This 66 year old diabetic female was referred to the wound healing center for a non healing ulcer to the right lateral lower leg. The patient says she is unsure the exact amount of time the ulcer has been opened, but says it is around 3 months. She says she has not done anything yet on her own to treat the ulcer. She says there was no trauma or injury that caused the ulcer. She says that she has always had swelling in her lower legs and she does not routinely keep compression on her legs. She has not done anything to treat the area on her own other than keeping the ulcer covered. She denies any pus to the area or any extending redness. She currently denies any feelings of nausea, vomiting, fever, or chills. Progress of Wound: Patient presents to wound center again today for follow up care. The ulcer is continuing to improve. She says she has been keeping compression on the area along with her daily dressing changes and has been cutting the silvercel to fit directly into the ulcer site. She says she has been doubling up her tubigrips still. She currently denies any feelings of nausea, vomiting, fever, or chills. - Physical Exam Vital Signs Temp Pulse Resp BP 98 F 65 18 181/88 H 11/27/17 11:37 11/27/17 11:37 11/27/17 11:37 11/27/17 11:37 General: Alert, Oriented x3, Cooperative, No apparent distress Extremities: Capillary Refill Less than 3 Seconds, No Calf Tenderness - Negative Josh and Rinaldi sign, Diminished Peripheral Pulses - DP pulses palpable and PT pulses nonpalpable due to edema, Edema - Bilateral lower extremity pitting edema with right being worse than left Skin: Ulcer/ Wound - Chronic ulcer to right lower leg with measurements noted below. Ulcer appears smaller again this week. The base continues to be a mixture of granular tissue, adherent slough, fibrin, biofilm and some slight hyperkeratotic tissue around the base. There is no undermining, no probing to bone, no tracking, no purulence, no malodor, no cellulitis and no increase in warmth. Wound Measurements and Assessment WC - Nurse 1 - General Ulcer Measurement Start: 11/06/17 10:30 Freq: Status: Active Protocol: Activity Type Activity Date Activity User E-Sign Co-Sign Detail Recorded Client Recorded Date Recorded By Document 11/27/17 11:37 TN [id number] 11/27/17 11:45 TN 11/27/17 11:37 Wound Center Nurse 1 [Ulcer Assessment] #1 R Lat Robb -Combined with other wound No -Current Size (cm) - Length 2.3 -Current Size (cm) - Width 1.4 -Current Size (cm) - Depth 0.1 -Total Square Cm 3.22 -Photo Taken No -Epithelialization None Present -Tunneling No -Undermining/Tunneling No -Circular Undermining No -Classification - Thickness Full Thickness without Exposed Support Structure -Change in Wound Grade/Stage No Query Text:If change please identify the Stage/Grade in the comment (ie. S2 G3) -Exudate Type Serous -Wound Margin Indistinct, Non -Visible -Granulation Amt Small (1-33%) -Granulation Quality Red -Slough/Fibrin Yes -Necrosis Amt Large (67-100%) -Necrotic Tissue Type Adherent Slough -Structure Exposed None/Limited to Skin Breakdown -Texture (Gricel-wound Skin Appearance) Assessed Localized Edema Scarring -Moisture (Gricel-wound Skin Appearance No Abnormality ) Assessed -Color (Gricel-wound Skin Appearance) No Abnormality Assessed -Temperature (Gricel-wound Skin No Abnormality Appearance) (Pt Warm) -Tenderness on Palpation (Gricel-wound No Skin Appearance) -Ulcer Cleansing Rinsed/ Irrigated with Saline -Foul Odor after Cleansing No -Anesthetic Used 4% Lidocaine Solution [Edema Assessment] -Lower Limb Edema Present Yes -Right Calf (cm) 45.5 -Right Ankle (cm) 31 -Left Calf (cm) 41.9 -Left Ankle (cm) 26 WC - Nurse 2 - General Ulcer CM Notes Start: 11/06/17 10:30 Freq: Status: Active Protocol: Activity Type Activity Date Activity User E-Sign Co-Sign Detail Recorded Client Recorded Date Recorded By Document 11/27/17 12:25 JF [id number] 11/27/17 12:26 JF 11/27/17 12:25 Wound Center Nurse 2 [Procedure/Treatment] #1 R Lat Robb -Time 12:26 -Correct Patient Yes -Correct Side, Site, Position Yes -Correct Procedure Yes -Procedure Performed Yes -Type of Procedure Debridement -Clinical Debridement Subcutaneous -Post Debridement Size (cm) - Length 1.9 -Post Debridement Size (cm) - Width 1.0 -Post Debridement Size (cm) - Depth 0.1 -Total Square Cm 1.90 -Wound/Ulcer Outcome Not Healed -Ulcer Cleansing Rinsed/ Irrigated with Saline -Foul Odor after Cleansing No -Bioengineered Tissue No -Bleeding Controlled with Pressure -Treatment Response Procedure Tolerated Well [See Physician Procedure note for Specifics] Pain Scale: 0-10 Numeric [Pain] -Is Patient Pain Free? Yes Musculoskeletal: Tenderness - With manipulation of ulcer site Neurological: Sensory exam intact to light touch and pain Psych/Mental Status: Normal Affect, Appropriate Debridement Note Post-Debridement Measurements/Treatment - Nurse 2 - General Ulcer CM Notes Start: 11/06/17 10:30 Freq: Status: Active Protocol: Activity Type Activity Date Activity User E-Sign Co-Sign Detail Recorded Client Recorded Date Recorded By Document 11/06/17 11:01 MW [id number] 11/06/17 11:03 MW Document 11/13/17 11:39 MW [id number] 11/13/17 11:41 MW Document 11/20/17 11:47 JS [id number] 11/20/17 11:50 JS Document 11/27/17 12:25 JF [id number] 11/27/17 12:26 JF 11/06/17 11/13/17 11/20/17 11:01 11:39 11:47 Wound Center Nurse 2 #1 R Lat Robb -Time 11:02 11:39 11:47 -Correct Patient Yes Yes Yes -Correct Side, Site, Position Yes Yes Yes -Correct Procedure Yes Yes Yes -Procedure Performed Yes Yes Yes -Type of Procedure Debridement Debridement Debridement -Clinical Debridement Subcutaneous Subcutaneous Subcutaneous -Post Debridement Size (cm) - Length 2.8 2.7 2 -Post Debridement Size (cm) - Width 1.9 1.8 0.4 -Post Debridement Size (cm) - Depth 0.1 0.1 1.7 -Total Square Cm 5.32 4.86 0.8 -Wound/Ulcer Outcome Not Healed Not Healed Not Healed -Ulcer Cleansing Rinsed/ Rinsed/ Rinsed/ Irrigated with Irrigated with Irrigated with Saline Saline Saline -Foul Odor after Cleansing No No No -Bioengineered Tissue No No No -Topical Lidocaine (%) 5 -Bleeding Controlled with Pressure Pressure NA -Treatment Response Procedure Procedure Procedure Tolerated Well Tolerated Well Tolerated Well Pain Scale: 0-10 Numeric Is Patient Pain Free? Yes Yes Yes 11/27/17 12:25 Wound Center Nurse 2 #1 R Lat Robb -Time 12:26 -Correct Patient Yes -Correct Side, Site, Position Yes -Correct Procedure Yes -Procedure Performed Yes -Type of Procedure Debridement -Clinical Debridement Subcutaneous -Post Debridement Size (cm) - Length 1.9 -Post Debridement Size (cm) - Width 1.0 -Post Debridement Size (cm) - Depth 0.1 -Total Square Cm 1.90 -Wound/Ulcer Outcome Not Healed -Ulcer Cleansing Rinsed/ Irrigated with Saline -Foul Odor after Cleansing No -Bioengineered Tissue No -Topical Lidocaine (%) -Bleeding Controlled with Pressure -Treatment Response Procedure Tolerated Well Pain Scale: 0-10 Numeric Is Patient Pain Free? Yes Wound debrided: Right lower leg Laterality: Right Type of Debridement: Excisional debridement Anesthesia Used: 4% Lidocaine Solution Depth: in the subcutaneous layer Percentage of wound debrided: 100 Tissue Removed: Adherent slough, fibrin, biofilm, hyperkeratotic tissue Severity: Fat Layer Exposed Amount of bleeding with debridement: Mild Bleeding Controlled with: Pressure Patient tolerated procedure well Assessment/Plan Assessment: Ulcer right lower leg, DM II, PVD Plan: Patient was examined and evaluated again today. Subcutaneous debridement was again performed as described in the clinical panel. Following debridement, the ulcer site was carefully cleansed and silvercel was then applied to the ulcer base followed by dry sterile dressing. Compression applied with double layered tuibigrips. The patient is to continue to undergo daily dressing changes in this manner. The patient was educated on the importance of keeping compression to the area. The patient is also to keep the ulcer site offloaded at all times making an effort to keep pressure off of the area. I recommend nutritional supplementation with a high-protein diet to optimize healing. The patient was educated on all signs and symptoms of local and systemic infection, and she was instructed to go to the emergency room immediately should she notice any. All other questions and concerns were answered to the patient's satisfaction today. Patient will follow-up in clinic in 1 week or sooner if needed.
[2017-12-04 11:42] VITALS: BP 131/70; PULSE 74; RESP 18; TEMP 36
--- NOTE | 2017-12-04 15:08 | PCM.WC.PN ---
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 (2) Type 2 diabetes mellitus without complications Status: Acute Current Visit: No Code(s): E11.9 - Type 2 diabetes mellitus without complications (3) PVD (peripheral vascular disease) Status: Acute Current Visit: No Code(s): I73.9 - Peripheral vascular disease, unspecified (4) Lower extremity edema Status: Acute Current Visit: No Code(s): R60.0 - Localized edema (5) Delayed wound healing Status: Acute Current Visit: No Code(s): T14.8XXD - Other injury of unspecified body region, subsequent encounter Type of Wound Date of Service: 12/04/17 Chief Complaint: non healing right lower leg ulcer History of Wound: This 66 year old diabetic female was referred to the wound healing center for a non healing ulcer to the right lateral lower leg. The patient says she is unsure the exact amount of time the ulcer has been opened, but says it is around 3 months. She says she has not done anything yet on her own to treat the ulcer. She says there was no trauma or injury that caused the ulcer. She says that she has always had swelling in her lower legs and she does not routinely keep compression on her legs. She has not done anything to treat the area on her own other than keeping the ulcer covered. She denies any pus to the area or any extending redness. She currently denies any feelings of nausea, vomiting, fever, or chills. Progress of Wound: Patient presents to wound center again today for follow up care. The ulcer is continuing to improve. She says she has been keeping compression on the area along with her daily dressing changes and has been cutting the silvercel to fit directly into the ulcer site. She says she has been doubling up her tubigrips still. She currently denies any feelings of nausea, vomiting, fever, or chills. 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 Measurements are noted below. There continues to be improvement in the ulcer site again this week. The base continues to be a mixture of granular tissue, adherent slough, fibrin, biofilm and some slight hyperkeratotic tissue. There continues to be no undermining, no probing to bone, no tracking, no purulence, no malodor, no cellulitis and no increase in warmth again this week. Wound Measurements and Assessment WC - Nurse 1 - General Ulcer Measurement Start: 11/06/17 10:30 Freq: Status: Active Protocol: Activity Type Activity Date Activity User E-Sign Co-Sign Detail Recorded Client Recorded Date Recorded By Document 12/04/17 11:42 DL [id number] 12/04/17 11:50 DL 12/04/17 11:42 Wound Center Nurse 1 [Ulcer Assessment] #1 R Lat Robb -Current Size (cm) - Length 1.6 -Current Size (cm) - Width 1 -Current Size (cm) - Depth 0.1 -Total Square Cm 1.6 -Photo Taken No -Exudate Amt Small (1-33%) -Exudate Type Serosanguineous -Wound Margin Distinct, Outline Attached -Necrosis Amt Small (1-33%) -Necrotic Tissue Type Adherent Slough -Structure Exposed N/A -Texture (Gricel-wound Skin Appearance) Localized Edema -Moisture (Gricel-wound Skin Appearance No Abnormality ) -Color (Gricel-wound Skin Appearance) Hemosiderin Staining Rubor -Temperature (Gricel-wound Skin No Abnormality Appearance) (Pt Warm) -Ulcer Cleansing Rinsed/ Irrigated with Saline -Foul Odor after Cleansing No -Anesthetic Used 4% Lidocaine Solution [Edema Assessment] -Right Calf (cm) 45 -Right Ankle (cm) 29.2 -Right Foot (cm) 40 -Left Calf (cm) 26.5 WC - Nurse 2 - General Ulcer CM Notes Start: 11/06/17 10:30 Freq: Status: Active Protocol: Activity Type Activity Date Activity User E-Sign Co-Sign Detail Recorded Client Recorded Date Recorded By Document 12/04/17 13:07 JS [id number] 12/04/17 13:12 JS 12/04/17 13:07 Wound Center Nurse 2 [Procedure/Treatment] #1 R Lat Robb -Time 13:07 -Correct Patient Yes -Correct Side, Site, Position Yes -Correct Procedure Yes -Procedure Performed Yes -Type of Procedure Debridement -Clinical Debridement Subcutaneous -Post Debridement Size (cm) - Length 1.1 -Post Debridement Size (cm) - Width 1 -Post Debridement Size (cm) - Depth 0 -Total Square Cm 1.1 -Wound/Ulcer Outcome Not Healed -Ulcer Cleansing Rinsed/ Irrigated with Saline -Foul Odor after Cleansing No -Bioengineered Tissue No -Topical Lidocaine (%) 4 -Lidocaine (ml) 5 -Bleeding Controlled with NA -Treatment Response Procedure Tolerated Well [See Physician Procedure note for Specifics] Pain Scale: 0-10 Numeric [Pain] -Is Patient Pain Free? Yes Musculoskeletal: Tenderness - With manipulation of ulcer site Neurological: Sensory exam intact to light touch and pain Psych/Mental Status: Normal Affect, Appropriate Debridement Note Post-Debridement Measurements/Treatment WC - Nurse 2 - General Ulcer CM Notes Start: 11/06/17 10:30 Freq: Status: Active Protocol: Activity Type Activity Date Activity User E-Sign Co-Sign Detail Recorded Client Recorded Date Recorded By Document 11/06/17 11:01 MW [id number] 11/06/17 11:03 MW Document 11/13/17 11:39 MW [id number] 11/13/17 11:41 MW Document 11/20/17 11:47 JS [id number] 11/20/17 11:50 JS Document 11/27/17 12:25 JF [id number] 11/27/17 12:26 JF Document 12/04/17 13:07 JS [id number] 12/04/17 13:12 JS 11/06/17 11/13/17 11/20/17 11:01 11:39 11:47 Wound Center Nurse 2 #1 R Lat Robb -Time 11:02 11:39 11:47 -Correct Patient Yes Yes Yes -Correct Side, Site, Position Yes Yes Yes -Correct Procedure Yes Yes Yes -Procedure Performed Yes Yes Yes -Type of Procedure Debridement Debridement Debridement -Clinical Debridement Subcutaneous Subcutaneous Subcutaneous -Post Debridement Size (cm) - Length 2.8 2.7 2 -Post Debridement Size (cm) - Width 1.9 1.8 0.4 -Post Debridement Size (cm) - Depth 0.1 0.1 1.7 -Total Square Cm 5.32 4.86 0.8 -Wound/Ulcer Outcome Not Healed Not Healed Not Healed -Ulcer Cleansing Rinsed/ Rinsed/ Rinsed/ Irrigated with Irrigated with Irrigated with Saline Saline Saline -Foul Odor after Cleansing No No No -Bioengineered Tissue No No No -Topical Lidocaine (%) 5 -Lidocaine (ml) -Bleeding Controlled with Pressure Pressure NA -Treatment Response Procedure Procedure Procedure Tolerated Well Tolerated Well Tolerated Well Pain Scale: 0-10 Numeric Is Patient Pain Free? Yes Yes Yes 11/27/17 12/04/17 12:25 13:07 Wound Center Nurse 2 #1 R Lat Robb -Time 12:26 13:07 -Correct Patient Yes Yes -Correct Side, Site, Position Yes Yes -Correct Procedure Yes Yes -Procedure Performed Yes Yes -Type of Procedure Debridement Debridement -Clinical Debridement Subcutaneous Subcutaneous -Post Debridement Size (cm) - Length 1.9 1.1 -Post Debridement Size (cm) - Width 1.0 1 -Post Debridement Size (cm) - Depth 0.1 0 -Total Square Cm 1.90 1.1 -Wound/Ulcer Outcome Not Healed Not Healed -Ulcer Cleansing Rinsed/ Rinsed/ Irrigated with Irrigated with Saline Saline -Foul Odor after Cleansing No No -Bioengineered Tissue No No -Topical Lidocaine (%) 4 -Lidocaine (ml) 5 -Bleeding Controlled with Pressure NA -Treatment Response Procedure Procedure Tolerated Well Tolerated Well Pain Scale: 0-10 Numeric Is Patient Pain Free? Yes Yes Wound debrided: Right lower leg Laterality: Right Type of Debridement: Excisional debridement Anesthesia Used: 4% Lidocaine Solution Depth: in the subcutaneous layer Percentage of wound debrided: 100 Instrument Used: 5mm curette Tissue Removed: Parents slough, fibrin, biofilm, hyperkeratotic tissue Severity: Fat Layer Exposed Amount of bleeding with debridement: Mild Bleeding Controlled with: Pressure Patient tolerated procedure well Assessment/Plan Assessment: Ulcer right lower leg, DM II, PVD Plan: Patient was examined and evaluated again today. Subcutaneous debridement was again performed as described in the clinical panel. Following debridement, the ulcer site was carefully cleansed and silvercel was then applied to the ulcer base followed by dry sterile dressing. Compression applied with double layered tuibigrips. The patient is to continue to undergo daily dressing changes in this manner. The patient was educated on the importance of keeping compression to the area. The patient is also to keep the ulcer site offloaded at all times making an effort to keep pressure off of the area. I recommend nutritional supplementation with a high-protein diet to optimize healing. The patient was educated on all signs and symptoms of local and systemic infection, and she was instructed to go to the emergency room immediately should she notice any. All other questions and concerns were answered to the patient's satisfaction today. Patient will follow-up in clinic in 1 week or sooner if needed.
--- NOTE | 2017-12-04 15:11 | PN.PCM_ITS ---
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 (2) Type 2 diabetes mellitus without complications Status: Acute Current Visit: No Code(s): E11.9 - Type 2 diabetes mellitus without complications (3) PVD (peripheral vascular disease) Status: Acute Current Visit: No Code(s): I73.9 - Peripheral vascular disease , unspecified (4) Lower extremity edema Status: Acute Current Visit: No Code(s): R60.0 - Localized edema (5) Delayed wound healing Status: Acute Current Visit: No Code(s): T14.8XXD - Other injury of unspecified body region, subsequent encounter Type of Wound Date of Service: 12/04/17 Chief Complaint: non healing right lower leg ulcer History of Wound: This 66 year old diabetic female was referred to the wound healing center for a non healing ulcer to the right lateral lower leg. The patient says she is unsure the exact amount of time the ulcer has been opened, but says it is around 3 months. She says she has not done anything yet on her own to treat the ulcer. She says there was no trauma or injury that caused the ulcer. She says that she has always had swelling in her lower legs and she does not routinely keep compression on her legs. She has not done anything to treat the area on her own other than keeping the ulcer covered. She denies any pus to the area or any extending redness. She currently denies any feelings of nausea, vomiting, fever, or chills. Progress of Wound: Patient presents to wound center again today for follow up care. The ulcer is continuing to improve. She says she has been keeping compression on the area along with her daily dressing changes and has been cutting the silvercel to fit directly into the ulcer site. She says she has been doubling up her tubigrips still. She currently denies any feelings of nausea, vomiting, fever, or chills. 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 Measurements are noted below. There continues to be improvement in the ulcer site again this week. The base continues to be a mixture of granular tissue, adherent slough, fibrin, biofilm and some slight hyperkeratotic tissue. There continues to be no undermining, no probing to bone, no tracking, no purulence, no malodor, no cellulitis and no increase in warmth again this week. Wound Measurements and Assessment WC - Nurse 1 - General Ulcer Measurement Start: 11/06/17 10:30 Freq: Status: Active Protocol: Activity Type Activity Date Activity User E-Sign Co-Sign Detail Recorded Client Recorded Date Recorded By Document 12/04/17 11:42 DL [id number] 12/04/17 11:50 DL 12/04/17 11:42 Wound Center Nurse 1 [Ulcer Assessment] #1 R Lat Robb -Current Size (cm) - Length 1.6 -Current Size (cm) - Width 1 -Current Size (cm) - Depth 0.1 -Total Square Cm 1.6 -Photo Taken No -Exudate Amt Small (1-33%) -Exudate Type Serosanguineous -Wound Margin Distinct, Outline Attached -Necrosis Amt Small (1-33%) -Necrotic Tissue Type Adherent Slough -Structure Exposed N/A -Texture (Gricel-wound Skin Appearance) Localized Edema -Moisture (Gricel-wound Skin Appearance No Abnormality ) -Color (Gricel-wound Skin Appearance) Hemosiderin Staining Rubor -Temperature (Gricel-wound Skin No Abnormality Appearance) (Pt Warm) -Ulcer Cleansing Rinsed/ Irrigated with Saline -Foul Odor after Cleansing No -Anesthetic Used 4% Lidocaine Solution [Edema Assessment] -Right Calf (cm) 45 -Right Ankle (cm) 29.2 -Right Foot (cm) 40 -Left Calf (cm) 26.5 WC - Nurse 2 - General Ulcer CM Notes Start: 11/06/17 10:30 Freq: Status: Active Protocol: Activity Type Activity Date Activity User E-Sign Co-Sign Detail Recorded Client Recorded Date Recorded By Document 12/04/17 13:07 JS [id number] 12/04/17 13:12 JS 12/04/17 13:07 Wound Center Nurse 2 [Procedure/Treatment] #1 R Lat Robb -Time 13:07 -Correct Patient Yes -Correct Side, Site, Position Yes -Correct Procedure Yes -Procedure Performed Yes -Type of Procedure Debridement -Clinical Debridement Subcutaneous -Post Debridement Size (cm) - Length 1.1 -Post Debridement Size (cm) - Width 1 -Post Debridement Size (cm) - Depth 0 -Total Square Cm 1.1 -Wound/Ulcer Outcome Not Healed -Ulcer Cleansing Rinsed/ Irrigated with Saline -Foul Odor after Cleansing No -Bioengineered Tissue No -Topical Lidocaine (%) 4 -Lidocaine (ml) 5 -Bleeding Controlled with NA -Treatment Response Procedure Tolerated Well [See Physician Procedure note for Specifics] Pain Scale: 0-10 Numeric [Pain] -Is Patient Pain Free? Yes Musculoskeletal: Tenderness - With manipulation of ulcer site Neurological: Sensory exam intact to light touch and pain Psych/Mental Status: Normal Affect, Appropriate Debridement Note Post-Debridement Measurements/Treatment WC - Nurse 2 - General Ulcer CM Notes Start: 11/06/17 10:30 Freq: Status: Active Protocol: Activity Type Activity Date Activity User E-Sign Co-Sign Detail Recorded Client Recorded Date Recorded By Document 11/06/17 11:01 MW [id number] 11/06/17 11:03 MW Document 11/13/17 11:39 MW [id number] 11/13/17 11:41 MW Document 11/20/17 11:47 JS [id number] 11/20/17 11:50 JS Document 11/27/17 12:25 JF [id number] 11/27/17 12:26 JF Document 12/04/17 13:07 JS [id number] 12/04/17 13:12 JS 11/06/17 11/13/17 11/20/17 11:01 11:39 11:47 Wound Center Nurse 2 #1 R Lat Robb -Time 11:02 11:39 11:47 -Correct Patient Yes Yes Yes -Correct Side, Site, Position Yes Yes Yes -Correct Procedure Yes Yes Yes -Procedure Performed Yes Yes Yes -Type of Procedure Debridement Debridement Debridement -Clinical Debridement Subcutaneous Subcutaneous Subcutaneous -Post Debridement Size (cm) - Length 2.8 2.7 2 -Post Debridement Size (cm) - Width 1.9 1.8 0.4 -Post Debridement Size (cm) - Depth 0.1 0.1 1.7 -Total Square Cm 5.32 4.86 0.8 -Wound/Ulcer Outcome Not Healed Not Healed Not Healed -Ulcer Cleansing Rinsed/ Rinsed/ Rinsed/ Irrigated with Irrigated with Irrigated with Saline Saline Saline -Foul Odor after Cleansing No No No -Bioengineered Tissue No No No -Topical Lidocaine (%) 5 -Lidocaine (ml) -Bleeding Controlled with Pressure Pressure NA -Treatment Response Procedure Procedure Procedure Tolerated Well Tolerated Well Tolerated Well Pain Scale: 0-10 Numeric Is Patient Pain Free? Yes Yes Yes 11/27/17 12/04/17 12:25 13:07 Wound Center Nurse 2 #1 R Lat Robb -Time 12:26 13:07 -Correct Patient Yes Yes -Correct Side, Site, Position Yes Yes -Correct Procedure Yes Yes -Procedure Performed Yes Yes -Type of Procedure Debridement Debridement -Clinical Debridement Subcutaneous Subcutaneous -Post Debridement Size (cm) - Length 1.9 1.1 -Post Debridement Size (cm) - Width 1.0 1 -Post Debridement Size (cm) - Depth 0.1 0 -Total Square Cm 1.90 1.1 -Wound/Ulcer Outcome Not Healed Not Healed -Ulcer Cleansing Rinsed/ Rinsed/ Irrigated with Irrigated with Saline Saline -Foul Odor after Cleansing No No -Bioengineered Tissue No No -Topical Lidocaine (%) 4 -Lidocaine (ml) 5 -Bleeding Controlled with Pressure NA -Treatment Response Procedure Procedure Tolerated Well Tolerated Well Pain Scale: 0-10 Numeric Is Patient Pain Free? Yes Yes Wound debrided: Right lower leg Laterality: Right Type of Debridement: Excisional debridement Anesthesia Used: 4% Lidocaine Solution Depth: in the subcutaneous layer Percentage of wound debrided: 100 Instrument Used: 5mm curette Tissue Removed: Parents slough, fibrin, biofilm, hyperkeratotic tissue Severity: Fat Layer Exposed Amount of bleeding with debridement: Mild Bleeding Controlled with: Pressure Patient tolerated procedure well Assessment/Plan Assessment: Ulcer right lower leg, DM II, PVD Plan: Patient was examined and evaluated again today. Subcutaneous debridement was again performed as described in the clinical panel. Following debridement, the ulcer site was carefully cleansed and silvercel was then applied to the ulcer base followed by dry sterile dressing. Compression applied with double layered tuibigrips. The patient is to continue to undergo daily dressing changes in this manner. The patient was educated on the importance of keeping compression to the area. The patient is also to keep the ulcer site offloaded at all times making an effort to keep pressure off of the area. I recommend nutritional supplementation with a high-protein diet to optimize healing. The patient was educated on all signs and symptoms of local and systemic infection, and she was instructed to go to the emergency room immediately should she notice any. All other questions and concerns were answered to the patient's satisfaction today. Patient will follow-up in clinic in 1 week or sooner if needed.
== END 2017-12-04 23:59 ==
LOC: WC 11:15
PROVIDERS: Family Provider Family Medicine Geriatric Medicine; PCP Family Medicine Geriatric Medicine; Visit Provider Podiatrist
DX: E11.622 Type 2 diabetes mellitus with other skin ulcer (principal); E11.51 Type 2 diabetes mellitus with diabetic peripheral angiopathy without gangrene; R60.0 Localized edema; L97.812 Non-pressure chronic ulcer of other part of right lower leg with fat layer exposed; I35.0 Nonrheumatic aortic (valve) stenosis; I34.2 Nonrheumatic mitral (valve) stenosis; I27.29 Other secondary pulmonary hypertension; M79.89 Other specified soft tissue disorders
CPT/HCPCS: 11042

== ENCOUNTER → 2017-12-05 10:48 | Outpatient (CLI) | payer MEDICARE, OTHER, SELFPAY ==
[2017-12-05 12:59] LABS: Ferritin 5 ng/mL (8-252); Iron 23 ug/dL (50-170); Iron Binding Capacity,Total 412 ug/dL (250-450); PERCENT IRON SATURATION 5.6 % (15.0-55.0)
[2017-12-05 13:15] LABS: Hematocrit 34.7 % (37-47); Hemoglobin 10.3 g/dl (12.0-15.0); Mean Corp Hgb Conc 29.7 g/gl (32-36); Mean Corpuscular Hgb 22.2 pg (27.0-32.0); Mean Corpuscular Volume 74.8 fL (81-99); Mean Platelet Vol. 11.4 fl (6.2-12.0); Platelet Count 198 K/mm3 (150-450); RBC Distribution Width CV 17.3 % (11.6-14.6); RBC Distribution Width SD 45.3 fl (35.1-43.9); Red Blood Count 4.64 M/mm3 (4.2-5.4); White Blood Count 5.3 K/mm3 (4.4-11.0)
[2017-12-05 13:20] LABS: Scan Indicated on CBC? Y/N YES- FLAGS NOTED
[2017-12-05 15:02] LABS: Reticulocyte Count 1.18 % (0.5-1.5)
[2017-12-05 15:03] LABS: Immature Platelet Fraction 4.2 % (1.0-7.9)
[2017-12-18 10:00] LABS: Endomysial Antibody IgA Negative (Negative)
[2017-12-18 11:44] LABS: Immunoglobulin A 213 mg/dL (87-352); t-Transglutaminase IgA <2 U/mL (0-3)
== END ==
PROVIDERS: Family Provider Family Medicine Geriatric Medicine; PCP Family Medicine Geriatric Medicine; Visit Provider Internal Medicine Gastroenterology
DX: D50.9 Iron deficiency anemia, unspecified (principal)
CPT/HCPCS: 36415; 82728; 82784; 83516; 83540; 83550; 85027; 85045; 86255

== ENCOUNTER 2018-01-01 11:00 | Outpatient (RCR) | payer MEDICARE, OTHER, SELFPAY ==
[2017-12-05 00:55] VITALS: BP 131/70; PULSE 74; RESP 18; TEMP 36
[2017-12-25 10:24] VITALS: BP 154/78; PULSE 68; RESP 16; TEMP 35.8
--- NOTE | 2017-12-25 11:09 | PCM.WC.PN ---
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 (2) Type 2 diabetes mellitus without complications Status: Acute Current Visit: No Code(s): E11.9 - Type 2 diabetes mellitus without complications (3) PVD (peripheral vascular disease) Status: Acute Current Visit: No Code(s): I73.9 - Peripheral vascular disease, unspecified (4) Lower extremity edema Status: Acute Current Visit: No Code(s): R60.0 - Localized edema (5) Delayed wound healing Status: Acute Current Visit: No Code(s): T14.8XXD - Other injury of unspecified body region, subsequent encounter Type of Wound Date of Service: 12/25/17 Chief Complaint: non healing right lower leg ulcer History of Wound: This 66 year old diabetic female was referred to the wound healing center for a non healing ulcer to the right lateral lower leg. The patient says she is unsure the exact amount of time the ulcer has been opened, but says it is around 3 months. She says she has not done anything yet on her own to treat the ulcer. She says there was no trauma or injury that caused the ulcer. She says that she has always had swelling in her lower legs and she does not routinely keep compression on her legs. She has not done anything to treat the area on her own other than keeping the ulcer covered. She denies any pus to the area or any extending redness. She currently denies any feelings of nausea, vomiting, fever, or chills. Progress of Wound: Patient presents to wound center again today for follow up care. The ulcer is continuing to improve right lateral lower leg. She says she has been keeping compression on the area along with her daily dressing changes and has been cutting the silvercel to fit directly into the ulcer site. Patient had a small skin tear to anterior right barrientos as well and has been keeping the area cleaned and dressed the same as her other ulcer site, and has noticed improvement. She says she has been doubling up her tubigrips still. She currently denies any feelings of nausea, vomiting, fever, or chills. - Physical Exam Vital Signs Temp Pulse Resp BP 96.4 F L 68 16 154/78 H 12/25/17 10:24 12/25/17 10:24 12/25/17 10:24 12/25/17 10:24 General: Alert, Oriented x3, Cooperative, No apparent distress Extremities: Capillary Refill Less than 3 Seconds, No Calf Tenderness, Diminished Peripheral Pulses - DP pulses palpable and PT pulses nonpalpable due to edema, Edema - Negative Josh and Rinaldi sign bilateral lower extremity pitting edema with right side being worse than left Skin: Ulcer/ Wound - 2 ulcers appreciated to right lower leg. One is the ulcer we have been treating for the last several weeks to the lateral aspect of the lower leg, and the other is a new skin tear to the more superior anterior barrientos. Measurements are noted below. The base of each is a mixture of granular tissue, adherent slough, fibrin, biofilm as well as some slight hyperkeratotic tissue. There continues to be no undermining, no probing to bone, no tracking, no purulence, no malodor, no cellulitis, and no increase in warmth appreciated. Wound Measurements and Assessment WC - Nurse 1 - General Ulcer Measurement Start: 12/25/17 10:24 Freq: Status: Active Protocol: Activity Type Activity Date Activity User E-Sign Co-Sign Detail Recorded Client Recorded Date Recorded By Document 12/25/17 10:24 [id number] 12/25/17 10:38 12/25/17 10:24 Wound Center Nurse 1 [Ulcer Assessment] #2 RIGHT SUPERIOR BARRIENTOS -Combined with other wound No -Current Size (cm) - Length 1.6 -Current Size (cm) - Width 0.5 -Current Size (cm) - Depth 0.1 -Total Square Cm 0.80 -Date of Last Picture (Recall this 12/25/17 field) -Photo Taken Yes -Epithelialization None Present -Tunneling No -Undermining/Tunneling No -Circular Undermining No -Exudate Amt Medium (34-66%) -Exudate Type Serous -Wound Margin Distinct, Outline Attached -Granulation Amt None Present (0 %) -Granulation Quality N/A -Slough/Fibrin No -Necrosis Amt None Present (0 %) -Necrotic Tissue Type Adherent Slough -Structure Exposed None/Limited to Skin Breakdown -Texture (Gricel-wound Skin Appearance) No Abnormality Assessed -Moisture (Gricel-wound Skin Appearance No Abnormality ) Assessed -Color (Gricel-wound Skin Appearance) No Abnormality Assessed -Temperature (Gricel-wound Skin No Abnormality Appearance) (Pt Warm) -Tenderness on Palpation (Gricel-wound No Skin Appearance) -Ulcer Cleansing Rinsed/ Irrigated with Saline -Foul Odor after Cleansing No -Anesthetic Used 4% Lidocaine Solution #1 R Lat Barrientos -Combined with other wound No -Current Size (cm) - Length 0.5 -Current Size (cm) - Width 0.8 -Current Size (cm) - Depth 0.2 -Total Square Cm 0.40 -Date of Last Picture (Recall this 12/25/17 field) -Photo Taken Yes -Epithelialization Small 1-33% -Tunneling No -Undermining/Tunneling No -Circular Undermining No -Exudate Amt Small (1-33%) -Exudate Type Serosanguineous -Wound Margin Distinct, Outline Attached -Granulation Amt Small (1-33%) -Granulation Quality [place] Red -Slough/Fibrin No -Necrosis Amt None Present (0 %) -Necrotic Tissue Type Adherent Slough -Structure Exposed None/Limited to Skin Breakdown -Texture (Gricel-wound Skin Appearance) No Abnormality Assessed -Moisture (Gricel-wound Skin Appearance No Abnormality ) Assessed -Color (Gricel-wound Skin Appearance) No Abnormality Assessed -Temperature (Gricel-wound Skin No Abnormality Appearance) (Pt Warm) -Tenderness on Palpation (Gricel-wound No Skin Appearance) -Ulcer Cleansing Rinsed/ Irrigated with Saline -Foul Odor after Cleansing No -Anesthetic Used 4% Lidocaine Solution [Edema Assessment] -Lower Limb Edema Present Yes -Right Calf (cm) 43.5 -Right Ankle (cm) 31.6 -Left Calf (cm) 37 -Left Ankle (cm) 29.4 WC - Nurse 2 - General Ulcer CM Notes Start: 12/25/17 10:24 Freq: Status: Active Protocol: Activity Type Activity Date Activity User E-Sign Co-Sign Detail Recorded Client Recorded Date Recorded By Document 12/25/17 10:49 [id number] 12/25/17 10:55 12/25/17 10:49 Wound Center Nurse 2 [Procedure/Treatment] #2 RIGHT SUPERIOR BARRIENTOS -Time 10:50 -Correct Patient Yes -Correct Side, Site, Position Yes -Correct Procedure Yes -Procedure Performed Yes -Type of Procedure Debridement -Clinical Debridement Subcutaneous -Post Debridement Size (cm) - Length 1.8 -Post Debridement Size (cm) - Width 0.4 -Post Debridement Size (cm) - Depth 0.2 -Total Square Cm 0.72 -Wound/Ulcer Outcome Not Healed -Ulcer Cleansing Rinsed/ Irrigated with Saline -Foul Odor after Cleansing No -Bioengineered Tissue No -Bleeding Controlled with Pressure -Treatment Response Procedure Tolerated Well #1 R Lat Barrientos -Time 10:51 -Correct Patient Yes -Correct Side, Site, Position Yes -Correct Procedure Yes -Procedure Performed Yes -Type of Procedure Debridement -Clinical Debridement Subcutaneous -Post Debridement Size (cm) - Length 1.2 -Post Debridement Size (cm) - Width 0.7 -Post Debridement Size (cm) - Depth 0.1 -Total Square Cm 0.84 -Wound/Ulcer Outcome Not Healed -Ulcer Cleansing Rinsed/ Irrigated with Saline -Foul Odor after Cleansing No -Bioengineered Tissue No -Bleeding Controlled with Pressure -Treatment Response Procedure Tolerated Well [See Physician Procedure note for Specifics] Pain Scale: 0-10 Numeric [Pain] -Is Patient Pain Free? Yes Musculoskeletal: Tenderness - With manipulation of ulcer sites Neurological: Sensory exam intact to light touch and pain Psych/Mental Status: Normal Affect, Appropriate Debridement Note Post-Debridement Measurements/Treatment WC - Nurse 2 - General Ulcer CM Notes Start: 12/25/17 10:24 Freq: Status: Active Protocol: Activity Type Activity Date Activity User E-Sign Co-Sign Detail Recorded Client Recorded Date Recorded By Document 12/25/17 10:49 [id number] 12/25/17 10:55 12/25/17 10:49 Wound Center Nurse 2 #2 RIGHT SUPERIOR BARRIENTOS -Time 10:50 -Correct Patient Yes -Correct Side, Site, Position Yes -Correct Procedure Yes -Procedure Performed Yes -Type of Procedure Debridement -Clinical Debridement Subcutaneous -Post Debridement Size (cm) - Length 1.8 -Post Debridement Size (cm) - Width 0.4 -Post Debridement Size (cm) - Depth 0.2 -Total Square Cm 0.72 -Wound/Ulcer Outcome Not Healed -Ulcer Cleansing Rinsed/ Irrigated with Saline -Foul Odor after Cleansing No -Bioengineered Tissue No -Bleeding Controlled with Pressure -Treatment Response Procedure Tolerated Well #1 R Lat Barrientos -Time 10:51 -Correct Patient Yes -Correct Side, Site, Position Yes -Correct Procedure Yes -Procedure Performed Yes -Type of Procedure Debridement -Clinical Debridement Subcutaneous -Post Debridement Size (cm) - Length 1.2 -Post Debridement Size (cm) - Width 0.7 -Post Debridement Size (cm) - Depth 0.1 -Total Square Cm 0.84 -Wound/Ulcer Outcome Not Healed -Ulcer Cleansing Rinsed/ Irrigated with Saline -Foul Odor after Cleansing No -Bioengineered Tissue No -Bleeding Controlled with Pressure -Treatment Response Procedure Tolerated Well Pain Scale: 0-10 Numeric Is Patient Pain Free? Yes Wound debrided: Right lower lateral leg Laterality: Right Type of Debridement: Excisional debridement Anesthesia Used: 4% Lidocaine Solution Depth: in the subcutaneous layer Percentage of wound debrided: 100 Instrument Used: 3mm curette Tissue Removed: Adherent slough, fibrin, biofilm, hyperkeratotic tissue Severity: Fat Layer Exposed Amount of bleeding with debridement: Mild Bleeding Controlled with: Pressure Patient tolerated procedure well - Additional Wound Wound debrided: Right anterior superior lower leg Laterality: Right Type of Debridement: Excisional debridement Anesthesia Used: 4% Lidocaine Solution Depth: in the subcutaneous layer Percentage of wound debrided: 100 Instrument Used: 3mm curette Tissue Removed: Adherent slough, fibrin, biofilm, hyperkeratotic tissue Severity: Fat Layer Exposed Amount of bleeding with debridement: Mild Bleeding Controlled with: Pressure Patient tolerated procedure: Patient tolerated procedure well Assessment/Plan Assessment: Ulcer right lower leg, DM II, PVD Plan: Patient was examined and evaluated again today. Subcutaneous debridement was again performed as described in the clinical panel to each ulcer site. Following debridement, the ulcer sites were carefully cleansed and silvercel was then applied to the ulcer bases followed by dry sterile dressing. Compression applied with double layered tuibigrips. The patient is to continue to undergo daily dressing changes in this manner. The patient was educated on the importance of keeping compression to the area. The patient is also to keep the ulcer site offloaded at all times making an effort to keep pressure off of the area. I recommend nutritional supplementation with a high-protein diet to optimize healing. The patient was educated on all signs and symptoms of local and systemic infection, and she was instructed to go to the emergency room immediately should she notice any. All other questions and concerns were answered to the patient's satisfaction today. Patient will follow-up in clinic in 1 week or sooner if needed.
[2018-01-01 11:52] VITALS: BP 164/78; PULSE 65; RESP 20; TEMP 36.1
--- NOTE | 2018-01-01 13:40 | PN.PCM_ITS ---
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 (2) Type 2 diabetes mellitus without complications Status: Acute Current Visit: No Code(s): E11.9 - Type 2 diabetes mellitus without complications (3) PVD (peripheral vascular disease) Status: Acute Current Visit: No Code(s): I73.9 - Peripheral vascular disease , unspecified (4) Lower extremity edema Status: Acute Current Visit: No Code(s): R60.0 - Localized edema (5) Delayed wound healing Status: Acute Current Visit: No Code(s): T14.8XXD - Other injury of unspecified body region, subsequent encounter Type of Wound Date of Service: 01/01/18 Chief Complaint: non healing right lower leg ulcer History of Wound: This 66 year old diabetic female was referred to the wound healing center for a non healing ulcer to the right lateral lower leg. The patient says she is unsure the exact amount of time the ulcer has been opened, but says it is around 3 months. She says she has not done anything yet on her own to treat the ulcer. She says there was no trauma or injury that caused the ulcer. She says that she has always had swelling in her lower legs and she does not routinely keep compression on her legs. She has not done anything to treat the area on her own other than keeping the ulcer covered. She denies any pus to the area or any extending redness. She currently denies any feelings of nausea, vomiting, fever, or chills. Progress of Wound: Patient presents to wound center again today for follow up care. The ulcer sites are continuing to improve right lateral lower leg. She says she has been keeping compression on the area along with her daily dressing changes and has been cutting the silvercel to fit directly into the ulcer site. She says she has been doubling up her tubigrips still. She currently denies any feelings of nausea, vomiting, fever, or chills. - Physical Exam Vital Signs Temp Pulse Resp BP 96.9 F L 65 20 H 164/78 H 01/01/18 11:52 01/01/18 11:52 01/01/18 11:52 01/01/18 11:52 General: Alert, Oriented x3, Cooperative, No apparent distress Extremities: Capillary Refill Less than 3 Seconds, No Calf Tenderness - Negative Josh and Rinaldi sign, Diminished Peripheral Pulses - DP pulses palpable and PT pulses nonpalpable due to edema., Edema - Bilateral lower extremity pitting edema with right side being worse than left Skin: Ulcer/ Wound - Two ulcers appreciated to right lower leg. Measurements are noted below. The base of each is a mixture of granular tissue, adherent slough, fibrin, biofilm as well as some hyperkeratotic tissue. There remains to be no undermining, no probing to bone, no tracking, no purulence, no malodor , no cellulitis, and no increase in warmth around either ulcer site. Wound Measurements and Assessment WC - Nurse 1 - General Ulcer Measurement Start: 12/25/17 10:24 Freq: Status: Active Protocol: Activity Type Activity Date Activity User E-Sign Co-Sign Detail Recorded Client Recorded Date Recorded By Document 01/01/18 11:52 DL [id number] 01/01/18 12:00 DL 01/01/18 11:52 Wound Center Nurse 1 [Ulcer Assessment] #2 RIGHT SUPERIOR ROBB -Current Size (cm) - Length 1.2 -Current Size (cm) - Width 0.3 -Current Size (cm) - Depth 0.1 -Total Square Cm 0.36 -Photo Taken No -Exudate Amt None Present (0 %) -Wound Margin Distinct, Outline Attached -Granulation Amt Small (1-33%) -Granulation Quality Red -Necrosis Amt Small (1-33%) -Necrotic Tissue Type Adherent Slough -Structure Exposed N/A -Texture (Gricel-wound Skin Appearance) Scarring -Moisture (Gricel-wound Skin Appearance No Abnormality ) -Color (Gricel-wound Skin Appearance) No Abnormality -Temperature (Gricel-wound Skin No Abnormality Appearance) (Pt Warm) -Ulcer Cleansing Rinsed/ Irrigated with Saline -Foul Odor after Cleansing No -Anesthetic Used 4% Lidocaine Solution #1 R Lat Robb -Current Size (cm) - Length 1.2 -Current Size (cm) - Width 0.7 -Current Size (cm) - Depth 0.1 -Total Square Cm 0.84 -Photo Taken No -Exudate Amt None Present (0 %) -Wound Margin Distinct, Outline Attached -Granulation Amt Medium (34-66%) -Granulation Quality [place] -Necrosis Amt Medium (34-66%) -Necrotic Tissue Type Adherent Slough -Structure Exposed N/A -Texture (Gricel-wound Skin Appearance) Scarring -Moisture (Gricel-wound Skin Appearance No Abnormality ) -Color (Gricel-wound Skin Appearance) No Abnormality -Temperature (Gricel-wound Skin No Abnormality Appearance) (Pt Warm) -Ulcer Cleansing Rinsed/ Irrigated with Saline -Foul Odor after Cleansing No -Anesthetic Used 4% Lidocaine Solution [Edema Assessment] -Right Calf (cm) 43.5 -Right Ankle (cm) 28.2 -Left Calf (cm) 39 -Left Ankle (cm) 27.5 WC - Nurse 2 - General Ulcer CM Notes Start: 12/25/17 10:24 Freq: Status: Active Protocol: Activity Type Activity Date Activity User E-Sign Co-Sign Detail Recorded Client Recorded Date Recorded By Document 01/01/18 12:19 [id number] 01/01/18 12:22 01/01/18 12:19 Wound Center Nurse 2 [Procedure/Treatment] #2 RIGHT SUPERIOR ROBB -Time 12:21 -Correct Patient Yes -Correct Side, Site, Position Yes -Correct Procedure Yes -Procedure Performed Yes -Type of Procedure Debridement -Clinical Debridement Subcutaneous -Post Debridement Size (cm) - Length 1.3 -Post Debridement Size (cm) - Width 0.5 -Post Debridement Size (cm) - Depth 0.2 -Total Square Cm 0.65 -Wound/Ulcer Outcome Not Healed -Ulcer Cleansing Not Cleansed -Foul Odor after Cleansing No -Bioengineered Tissue No -Bleeding Controlled with NA -Treatment Response Procedure Tolerated Well #1 R Lat Robb -Time 12:21 -Correct Patient Yes -Correct Side, Site, Position Yes -Correct Procedure Yes -Procedure Performed Yes -Type of Procedure Debridement -Clinical Debridement Subcutaneous -Post Debridement Size (cm) - Length 0.8 -Post Debridement Size (cm) - Width 0.5 -Post Debridement Size (cm) - Depth 0.1 -Total Square Cm 0.40 -Wound/Ulcer Outcome Not Healed -Ulcer Cleansing Not Cleansed -Foul Odor after Cleansing No -Bioengineered Tissue No -Bleeding Controlled with NA -Treatment Response Procedure Tolerated Well [See Physician Procedure note for Specifics] Pain Scale: 0-10 Numeric [Pain] -Is Patient Pain Free? Yes Musculoskeletal: Tenderness - With manipulation of ulcer site Neurological: Sensory exam intact to light touch and pain Psych/Mental Status: Normal Affect, Appropriate Debridement Note Post-Debridement Measurements/Treatment WC - Nurse 2 - General Ulcer CM Notes Start: 12/25/17 10:24 Freq: Status: Active Protocol: Activity Type Activity Date Activity User E-Sign Co-Sign Detail Recorded Client Recorded Date Recorded By Document 12/25/17 10:49 [id number] 12/25/17 10:55 Document 01/01/18 12:19 [id number] 01/01/18 12:22 12/25/17 01/01/18 10:49 12:19 Wound Center Nurse 2 #2 RIGHT SUPERIOR ROBB -Time 10:50 12:21 -Correct Patient Yes Yes -Correct Side, Site, Position Yes Yes -Correct Procedure Yes Yes -Procedure Performed Yes Yes -Type of Procedure Debridement Debridement -Clinical Debridement Subcutaneous Subcutaneous -Post Debridement Size (cm) - Length 1.8 1.3 -Post Debridement Size (cm) - Width 0.4 0.5 -Post Debridement Size (cm) - Depth 0.2 0.2 -Total Square Cm 0.72 0.65 -Wound/Ulcer Outcome Not Healed Not Healed -Ulcer Cleansing Rinsed/ Not Cleansed Irrigated with Saline -Foul Odor after Cleansing No No -Bioengineered Tissue No No -Bleeding Controlled with Pressure NA -Treatment Response Procedure Procedure Tolerated Well Tolerated Well #1 R Lat Robb -Time 10:51 12:21 -Correct Patient Yes Yes -Correct Side, Site, Position Yes Yes -Correct Procedure Yes Yes -Procedure Performed Yes Yes -Type of Procedure Debridement Debridement -Clinical Debridement Subcutaneous Subcutaneous -Post Debridement Size (cm) - Length 1.2 0.8 -Post Debridement Size (cm) - Width 0.7 0.5 -Post Debridement Size (cm) - Depth 0.1 0.1 -Total Square Cm 0.84 0.40 -Wound/Ulcer Outcome Not Healed Not Healed -Ulcer Cleansing Rinsed/ Not Cleansed Irrigated with Saline -Foul Odor after Cleansing No No -Bioengineered Tissue No No -Bleeding Controlled with Pressure NA -Treatment Response Procedure Procedure Tolerated Well Tolerated Well Pain Scale: 0-10 Numeric Is Patient Pain Free? Yes Yes Wound debrided: Right lower lateral leg Laterality: Right Type of Debridement: Excisional debridement Anesthesia Used: 4% Lidocaine Solution Depth: in the subcutaneous layer Percentage of wound debrided: 100 Instrument Used: 3mm curette Tissue Removed: Adherent slough, fibrin, biofilm, hyperkeratotic tissue Severity: Fat Layer Exposed Amount of bleeding with debridement: Mild Bleeding Controlled with: Pressure Patient tolerated procedure well - Additional Wound Wound debrided: Right anterior superior lower leg Laterality: Right Type of Debridement: Excisional debridement Anesthesia Used: 4% Lidocaine Solution Depth: in the subcutaneous layer Percentage of wound debrided: 100 Instrument Used: 3mm curette Tissue Removed: Adherent slough, fibrin, biofilm, hyperkeratotic tissue Severity: Fat Layer Exposed Amount of bleeding with debridement: Mild Bleeding Controlled with: Pressure Patient tolerated procedure: Patient tolerated procedure well Assessment/Plan Assessment: Ulcer right lower leg, DM II, PVD Plan: Patient was examined and evaluated again today. Subcutaneous debridement was again performed as described in the clinical panel to each ulcer site. Following debridement, the ulcer sites were carefully cleansed and silvercel was then applied to the ulcer bases followed by dry sterile dressing. Compression applied with double layered tuibigrips. The patient is to continue to undergo daily dressing changes in this manner. The patient was educated on the importance of keeping compression to the area. The patient is also to keep the ulcer site offloaded at all times making an effort to keep pressure off of the area. I recommend nutritional supplementation with a high-protein diet to optimize healing. The patient was educated on all signs and symptoms of local and systemic infection, and she was instructed to go to the emergency room immediately should she notice any. All other questions and concerns were answered to the patient's satisfaction today. Patient will follow-up in clinic in 1 week or sooner if needed.
== END 2018-01-03 23:59 ==
LOC: WC 11:00
PROVIDERS: Family Provider Family Medicine Geriatric Medicine; PCP Family Medicine Geriatric Medicine; Visit Provider Podiatrist
DX: E11.622 Type 2 diabetes mellitus with other skin ulcer (principal); E11.51 Type 2 diabetes mellitus with diabetic peripheral angiopathy without gangrene; R60.0 Localized edema; L97.812 Non-pressure chronic ulcer of other part of right lower leg with fat layer exposed; I27.29 Other secondary pulmonary hypertension; M79.89 Other specified soft tissue disorders
CPT/HCPCS: 11042

== ENCOUNTER 2018-01-15 10:30 | Outpatient (RCR) | payer MEDICARE, OTHER, SELFPAY ==
[2018-01-04 00:48] VITALS: BP 164/78; PULSE 65; RESP 20; TEMP 36.1
[2018-01-08 09:22] VITALS: BP 128/69; PULSE 71; RESP 18; TEMP 36.6
--- NOTE | 2018-01-08 10:42 | PN.PCM_ITS ---
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 (2) Type 2 diabetes mellitus without complications Status: Acute Current Visit: No Code(s): E11.9 - Type 2 diabetes mellitus without complications (3) PVD (peripheral vascular disease) Status: Acute Current Visit: No Code(s): I73.9 - Peripheral vascular disease , unspecified (4) Lower extremity edema Status: Acute Current Visit: No Code(s): R60.0 - Localized edema (5) Delayed wound healing Status: Acute Current Visit: No Code(s): T14.8XXD - Other injury of unspecified body region, subsequent encounter Type of Wound Date of Service: 01/08/18 Chief Complaint: non healing right lower leg ulcer History of Wound: This 66 year old diabetic female was referred to the wound healing center for a non healing ulcer to the right lateral lower leg. The patient says she is unsure the exact amount of time the ulcer has been opened, but says it is around 3 months. She says she has not done anything yet on her own to treat the ulcer. She says there was no trauma or injury that caused the ulcer. She says that she has always had swelling in her lower legs and she does not routinely keep compression on her legs. She has not done anything to treat the area on her own other than keeping the ulcer covered. She denies any pus to the area or any extending redness. She currently denies any feelings of nausea, vomiting, fever, or chills. Progress of Wound: Patient presents to wound center again today for follow up care. The ulcer sites are continuing to improve right lateral lower leg. She says she has been keeping compression on the area along with her daily dressing changes and has been cutting the silvercel to fit directly into the ulcer site. She says she has been doubling up her tubigrips still. She is hoping to be healed by her trip in a couple of weeks. She currently denies any feelings of nausea, vomiting, fever, or chills. - Physical Exam Vital Signs Temp Pulse Resp BP 97.8 F 71 18 128/69 H 01/08/18 09:22 01/08/18 09:22 01/08/18 09:22 01/08/18 09:22 General: Alert, Oriented x3, Cooperative, No apparent distress Extremities: Capillary Refill Less than 3 Seconds, No Calf Tenderness - Negative Josh and Rinaldi sign, Diminished Peripheral Pulses - DP pulses palpable and PT pulses nonpalpable due to edema, Edema - Bilateral lower extremity pitting edema with right side being worse than the left Skin: Ulcer/ Wound - 2 small ulcers appreciated right lower leg. Measurements are noted below. The base of each continues to be a mixture of granular tissue , adherent slough, fibrin, biofilm as well as some slight surrounding hyperkeratotic tissue. There continues to be no undermining, no probing, no tracking, no purulence, no malodor, no cellulitis, and no increased warmth around either ulcer site. Wound Measurements and Assessment WC - Nurse 1 - General Ulcer Measurement Start: 01/08/18 09:22 Freq: Status: Active Protocol: Activity Type Activity Date Activity User E-Sign Co-Sign Detail Recorded Client Recorded Date Recorded By Document 01/08/18 09:22 [id number] 01/08/18 09:30 01/08/18 09:22 Wound Center Nurse 1 [Ulcer Assessment] #2 RIGHT SUPERIOR ROBB -Combined with other wound No -Current Size (cm) - Length 1.4 -Current Size (cm) - Width 0.2 -Current Size (cm) - Depth 0.2 -Total Square Cm 0.28 -Photo Taken No -Epithelialization None Present -Tunneling No -Undermining/Tunneling No -Circular Undermining No -Classification - Thickness Full Thickness without Exposed Support Structure -Exudate Amt Small (1-33%) -Exudate Type Serosanguineous -Wound Margin Distinct, Outline Attached -Granulation Amt Medium (34-66%) -Granulation Quality Red -Slough/Fibrin Yes -Necrosis Amt Small (1-33%) -Necrotic Tissue Type Adherent Slough -Structure Exposed Fascia Fat Layer Exposed -Texture (Gricel-wound Skin Appearance) Localized Edema -Moisture (Gricel-wound Skin Appearance No Abnormality ) -Color (Gricel-wound Skin Appearance) No Abnormality -Temperature (Gricel-wound Skin No Abnormality Appearance) (Pt Warm) -Tenderness on Palpation (Gricel-wound No Skin Appearance) -Ulcer Cleansing Rinsed/ Irrigated with Saline -Foul Odor after Cleansing No -Anesthetic Used 4% Lidocaine Solution #1 R Lat Robb -Combined with other wound No -Current Size (cm) - Length 0.9 -Current Size (cm) - Width 0.4 -Current Size (cm) - Depth 0.1 -Total Square Cm 0.36 -Photo Taken No -Epithelialization Small 1-33% -Tunneling No -Undermining/Tunneling No -Circular Undermining No -Classification - Thickness Full Thickness without Exposed Support Structure -Exudate Amt Small (1-33%) -Exudate Type Serosanguineous -Wound Margin Distinct, Outline Attached -Granulation Amt Medium (34-66%) -Granulation Quality [place] -Slough/Fibrin Yes -Necrosis Amt Small (1-33%) -Necrotic Tissue Type Adherent Slough -Structure Exposed Fascia Fat Layer Exposed -Texture (Gricel-wound Skin Appearance) Localized Edema -Moisture (Gricel-wound Skin Appearance No Abnormality ) -Color (Gricel-wound Skin Appearance) No Abnormality -Temperature (Gricel-wound Skin No Abnormality Appearance) (Pt Warm) -Tenderness on Palpation (Gricel-wound No Skin Appearance) -Ulcer Cleansing Rinsed/ Irrigated with Saline -Foul Odor after Cleansing No -Anesthetic Used 4% Lidocaine Solution [Edema Assessment] -Lower Limb Edema Present Yes -Right Calf (cm) 39.5 -Right Ankle (cm) 29.5 -Left Calf (cm) 38.5 -Left Ankle (cm) 27.5 WC - Nurse 2 - General Ulcer CM Notes Start: 01/08/18 09:22 Freq: Status: Active Protocol: Activity Type Activity Date Activity User E-Sign Co-Sign Detail Recorded Client Recorded Date Recorded By Document 01/08/18 09:35 [id number] 01/08/18 09:50 01/08/18 09:35 Wound Center Nurse 2 [Procedure/Treatment] #2 RIGHT SUPERIOR ROBB -Time 09:50 -Correct Patient Yes -Correct Side, Site, Position Yes -Correct Procedure Yes -Procedure Performed Yes -Type of Procedure Debridement -Clinical Debridement Subcutaneous -Post Debridement Size (cm) - Length 1.2 -Post Debridement Size (cm) - Width 0.6 -Post Debridement Size (cm) - Depth 0.2 -Total Square Cm 0.72 -Wound/Ulcer Outcome Not Healed -Ulcer Cleansing Not Cleansed -Foul Odor after Cleansing No -Bioengineered Tissue No -Bleeding Controlled with Pressure -Treatment Response Procedure Tolerated Well #1 R Lat Robb -Time 09:50 -Correct Patient Yes -Correct Side, Site, Position Yes -Correct Procedure Yes -Procedure Performed Yes -Type of Procedure Debridement -Clinical Debridement Subcutaneous -Post Debridement Size (cm) - Length 0.5 -Post Debridement Size (cm) - Width 0.3 -Post Debridement Size (cm) - Depth 0.1 -Total Square Cm 0.15 -Wound/Ulcer Outcome Not Healed -Ulcer Cleansing Not Cleansed -Foul Odor after Cleansing No -Bioengineered Tissue No -Bleeding Controlled with Pressure -Treatment Response Procedure Tolerated Well [See Physician Procedure note for Specifics] Pain Scale: 0-10 Numeric [Pain] -Is Patient Pain Free? Yes Musculoskeletal: Tenderness - With manipulation of ulcer site Neurological: Sensory exam intact to light touch and pain Psych/Mental Status: Normal Affect, Appropriate Debridement Note Post-Debridement Measurements/Treatment WC - Nurse 2 - General Ulcer CM Notes Start: 01/08/18 09:22 Freq: Status: Active Protocol: Activity Type Activity Date Activity User E-Sign Co-Sign Detail Recorded Client Recorded Date Recorded By Document 01/08/18 09:35 [id number] 01/08/18 09:50 01/08/18 09:35 Wound Center Nurse 2 #2 RIGHT SUPERIOR ROBB -Time 09:50 -Correct Patient Yes -Correct Side, Site, Position Yes -Correct Procedure Yes -Procedure Performed Yes -Type of Procedure Debridement -Clinical Debridement Subcutaneous -Post Debridement Size (cm) - Length 1.2 -Post Debridement Size (cm) - Width 0.6 -Post Debridement Size (cm) - Depth 0.2 -Total Square Cm 0.72 -Wound/Ulcer Outcome Not Healed -Ulcer Cleansing Not Cleansed -Foul Odor after Cleansing No -Bioengineered Tissue No -Bleeding Controlled with Pressure -Treatment Response Procedure Tolerated Well #1 R Lat Robb -Time 09:50 -Correct Patient Yes -Correct Side, Site, Position Yes -Correct Procedure Yes -Procedure Performed Yes -Type of Procedure Debridement -Clinical Debridement Subcutaneous -Post Debridement Size (cm) - Length 0.5 -Post Debridement Size (cm) - Width 0.3 -Post Debridement Size (cm) - Depth 0.1 -Total Square Cm 0.15 -Wound/Ulcer Outcome Not Healed -Ulcer Cleansing Not Cleansed -Foul Odor after Cleansing No -Bioengineered Tissue No -Bleeding Controlled with Pressure -Treatment Response Procedure Tolerated Well Pain Scale: 0-10 Numeric Is Patient Pain Free? Yes Wound debrided: Right lower lateral leg Laterality: Right Type of Debridement: Excisional debridement Anesthesia Used: 4% Lidocaine Solution Depth: in the subcutaneous layer Percentage of wound debrided: 100 Instrument Used: 3mm curette Tissue Removed: Adherent slough, fibrin, biofilm, hyperkeratotic tissue Severity: Fat Layer Exposed Amount of bleeding with debridement: Mild Bleeding Controlled with: Pressure Patient tolerated procedure well - Additional Wound Wound debrided: Right anterior superior lower leg Laterality: Right Type of Debridement: Excisional debridement Anesthesia Used: 4% Lidocaine Solution Depth: in the subcutaneous layer Percentage of wound debrided: 100 Instrument Used: 3mm curette Tissue Removed: Adherent slough, fibrin, biofilm, hyperkeratotic tissue Severity: Fat Layer Exposed Amount of bleeding with debridement: Mild Bleeding Controlled with: Pressure Patient tolerated procedure: Patient tolerated procedure well Assessment/Plan Assessment: Ulcer right lower leg, DM II, PVD Plan: Patient was examined and evaluated again today. Subcutaneous debridement was again performed as described in the clinical panel to each ulcer site today. Following debridement, the ulcer sites were carefully cleansed and silvercel was then applied to the ulcer bases followed by dry sterile dressing. Compression applied with double layered tuibigrips. The patient is to continue to undergo daily dressing changes in this manner. The patient was educated on the importance of keeping compression to the area. The patient is also to keep the ulcer site offloaded at all times making an effort to keep pressure off of the area. I recommend nutritional supplementation with a high-protein diet to optimize healing. The patient was educated on all signs and symptoms of local and systemic infection, and she was instructed to go to the emergency room immediately should she notice any. All other questions and concerns were answered to the patient's satisfaction today. Patient will follow-up in clinic in 1 week or sooner if needed.
[2018-01-15 10:38] VITALS: BP 141/76; PULSE 68; RESP 18; TEMP 36.8
--- NOTE | 2018-01-15 11:28 | PN.PCM_ITS ---
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 (2) Type 2 diabetes mellitus without complications Status: Acute Current Visit: No Code(s): E11.9 - Type 2 diabetes mellitus without complications (3) PVD (peripheral vascular disease) Status: Acute Current Visit: No Code(s): I73.9 - Peripheral vascular disease , unspecified (4) Lower extremity edema Status: Acute Current Visit: No Code(s): R60.0 - Localized edema (5) Delayed wound healing Status: Acute Current Visit: No Code(s): T14.8XXD - Other injury of unspecified body region, subsequent encounter Type of Wound Date of Service: 01/15/18 Chief Complaint: non healing right lower leg ulcer History of Wound: This 66 year old diabetic female was referred to the wound healing center for a non healing ulcer to the right lateral lower leg. The patient says she is unsure the exact amount of time the ulcer has been opened, but says it is around 3 months. She says she has not done anything yet on her own to treat the ulcer. She says there was no trauma or injury that caused the ulcer. She says that she has always had swelling in her lower legs and she does not routinely keep compression on her legs. She has not done anything to treat the area on her own other than keeping the ulcer covered. She denies any pus to the area or any extending redness. She currently denies any feelings of nausea, vomiting, fever, or chills. Progress of Wound: Patient presents to wound center again today for follow up care. The ulcer sites are continuing to improve right lateral lower leg. She says she has been keeping compression on the area along with her daily dressing changes and has been cutting the silvercel to fit directly into the ulcer site. She says she has been doubling up her tubigrips still. She will be missing her next two weeks of appointments for her vacation. She currently denies any feelings of nausea, vomiting, fever, or chills. - Physical Exam Vital Signs Temp Pulse Resp BP 98.2 F 68 18 141/76 H 01/15/18 10:38 01/15/18 10:38 01/15/18 10:38 01/15/18 10:38 General: Alert, Oriented x3, Cooperative, No apparent distress Extremities: Capillary Refill Less than 3 Seconds, No Calf Tenderness - Negative Josh and Rinaldi sign, Diminished Peripheral Pulses - DP pulses palpable and PT pulses nonpalpable due to edema, Edema - Bilateral lower extremity pitting edema with right side being worse than left Skin: Ulcer/ Wound - two small ulcers appreciated to right lower leg. Measurements are noted below. Each base continues to be a mixture of granular tissue, adherent slough, fibrin as well as some slight surrounding hyperkeratotic tissue. There continues to be no undermining, no probing, no tracking, no purulence, no malodor, no cellulitis, no increase in warmth, or any other signs of local bacterial infection appreciated to either ulcer site. Wound Measurements and Assessment WC - Nurse 1 - General Ulcer Measurement Start: 01/08/18 09:22 Freq: Status: Active Protocol: Activity Type Activity Date Activity User E-Sign Co-Sign Detail Recorded Client Recorded Date Recorded By Document 01/15/18 10:38 [id number] 01/15/18 10:41 01/15/18 10:38 Wound Center Nurse 1 [Ulcer Assessment] #2 RIGHT SUPERIOR ROBB -Combined with other wound No -Current Size (cm) - Length 1.0 -Current Size (cm) - Width 0.2 -Current Size (cm) - Depth 0.1 -Total Square Cm 0.20 -Photo Taken No -Epithelialization Small 1-33% -Tunneling No -Undermining/Tunneling No -Circular Undermining No -Classification - Thickness Full Thickness without Exposed Support Structure -Exudate Amt Small (1-33%) -Exudate Type Serosanguineous -Wound Margin Distinct, Outline Attached -Granulation Amt Small (1-33%) -Granulation Quality Red -Slough/Fibrin Yes -Necrosis Amt Large (67-100%) -Necrotic Tissue Type Adherent Slough -Structure Exposed Fascia Fat Layer Exposed -Texture (Gricel-wound Skin Appearance) Localized Edema Scarring -Moisture (Gricel-wound Skin Appearance Dry/Scaly ) -Color (Gricel-wound Skin Appearance) No Abnormality Assessed -Temperature (Gricel-wound Skin No Abnormality Appearance) (Pt Warm) -Tenderness on Palpation (Gricel-wound No Skin Appearance) -Ulcer Cleansing Rinsed/ Irrigated with Saline -Foul Odor after Cleansing No -Anesthetic Used 4% Lidocaine Solution #1 R Lat Robb -Combined with other wound No -Current Size (cm) - Length 0.1 -Current Size (cm) - Width 0.1 -Current Size (cm) - Depth 0.1 -Total Square Cm 0.01 -Photo Taken No -Epithelialization Large 67-100% -Tunneling No -Undermining/Tunneling No -Circular Undermining No -Classification - Thickness Full Thickness without Exposed Support Structure -Exudate Amt None Present (0 %) -Wound Margin Distinct, Outline Attached -Granulation Amt Large (67-100%) -Granulation Quality [place] -Slough/Fibrin Yes -Necrosis Amt Small (1-33%) -Necrotic Tissue Type Adherent Slough -Structure Exposed None/Limited to Skin Breakdown -Texture (Gricel-wound Skin Appearance) Localized Edema Scarring -Moisture (Gricel-wound Skin Appearance Dry/Scaly ) -Color (Gricel-wound Skin Appearance) No Abnormality Assessed -Temperature (Gricel-wound Skin No Abnormality Appearance) (Pt Warm) -Tenderness on Palpation (Gricel-wound No Skin Appearance) -Ulcer Cleansing Rinsed/ Irrigated with Saline -Foul Odor after Cleansing No -Anesthetic Used 4% Lidocaine Solution [Edema Assessment] -Lower Limb Edema Present Yes -Right Calf (cm) 38.5 -Right Ankle (cm) 31.0 -Left Calf (cm) 39.5 -Left Ankle (cm) 27.5 Musculoskeletal: Tenderness - With manipulation of ulcer site Neurological: Sensory exam intact to light touch and pain Psych/Mental Status: Normal Affect, Appropriate Debridement Note Post-Debridement Measurements/Treatment WC - Nurse 2 - General Ulcer CM Notes Start: 01/08/18 09:22 Freq: Status: Active Protocol: Activity Type Activity Date Activity User E-Sign Co-Sign Detail Recorded Client Recorded Date Recorded By Document 01/08/18 09:35 [id number] 01/08/18 09:50 01/08/18 09:35 Wound Center Nurse 2 #2 RIGHT SUPERIOR ROBB -Time 09:50 -Correct Patient Yes -Correct Side, Site, Position Yes -Correct Procedure Yes -Procedure Performed Yes -Type of Procedure Debridement -Clinical Debridement Subcutaneous -Post Debridement Size (cm) - Length 1.2 -Post Debridement Size (cm) - Width 0.6 -Post Debridement Size (cm) - Depth 0.2 -Total Square Cm 0.72 -Wound/Ulcer Outcome Not Healed -Ulcer Cleansing Not Cleansed -Foul Odor after Cleansing No -Bioengineered Tissue No -Bleeding Controlled with Pressure -Treatment Response Procedure Tolerated Well #1 R Lat Robb -Time 09:50 -Correct Patient Yes -Correct Side, Site, Position Yes -Correct Procedure Yes -Procedure Performed Yes -Type of Procedure Debridement -Clinical Debridement Subcutaneous -Post Debridement Size (cm) - Length 0.5 -Post Debridement Size (cm) - Width 0.3 -Post Debridement Size (cm) - Depth 0.1 -Total Square Cm 0.15 -Wound/Ulcer Outcome Not Healed -Ulcer Cleansing Not Cleansed -Foul Odor after Cleansing No -Bioengineered Tissue No -Bleeding Controlled with Pressure -Treatment Response Procedure Tolerated Well Pain Scale: 0-10 Numeric Is Patient Pain Free? Yes Wound debrided: Right lower lateral leg Laterality: Right Type of Debridement: Excisional debridement Anesthesia Used: 4% Lidocaine Solution Depth: in the subcutaneous layer Percentage of wound debrided: 100 Instrument Used: 3mm curette Tissue Removed: Adherent slough, fibrin, hyperkeratotic tissue Severity: Fat Layer Exposed Amount of bleeding with debridement: Mild Bleeding Controlled with: Pressure Patient tolerated procedure well - Additional Wound Wound debrided: Right anterior superior lower leg Laterality: Right Type of Debridement: Excisional debridement Anesthesia Used: 4% Lidocaine Solution Depth: in the subcutaneous layer Percentage of wound debrided: 100 Instrument Used: 3mm curette Tissue Removed: Adherent slough, fibrin, hyperkeratotic tissue Severity: Fat Layer Exposed Amount of bleeding with debridement: Mild Bleeding Controlled with: Pressure Patient tolerated procedure: Patient tolerated procedure well Assessment/Plan Assessment: Ulcer right lower leg, DM II, PVD Plan: Patient was examined and evaluated again today. Subcutaneous debridement was again performed as described in the clinical panel to each ulcer site today. Following debridement, the ulcer sites were carefully cleansed and silvercel was then applied to the ulcer bases followed by dry sterile dressing. Compression applied with double layered tuibigrips. The patient is to continue to undergo daily dressing changes in this manner. She is to make sure she has enough dressing supplies to change her dressings over her vacation the next two . The patient was educated on the importance of keeping compression to the area. The patient is also to keep the ulcer site offloaded at all times making an effort to keep pressure off of the area. I recommend nutritional supplementation with a high-protein diet to optimize healing. The patient was educated on all signs and symptoms of local and systemic infection, and she was instructed to go to the emergency room immediately should she notice any. All other questions and concerns were answered to the patient's satisfaction today. Patient will follow-up in clinic after missing 2 weeks of visits due to her vacation, but she was instructed to seek attention at ER on vacation if needed. She understands this.
== END 2018-02-03 23:59 ==
LOC: WC 10:30
PROVIDERS: Family Provider Family Medicine Geriatric Medicine; PCP Family Medicine Geriatric Medicine; Visit Provider Podiatrist
DX: E11.622 Type 2 diabetes mellitus with other skin ulcer (principal); E11.51 Type 2 diabetes mellitus with diabetic peripheral angiopathy without gangrene; R60.0 Localized edema; L97.812 Non-pressure chronic ulcer of other part of right lower leg with fat layer exposed; I35.0 Nonrheumatic aortic (valve) stenosis; I34.2 Nonrheumatic mitral (valve) stenosis; I27.29 Other secondary pulmonary hypertension; M79.89 Other specified soft tissue disorders
CPT/HCPCS: 11042

== ENCOUNTER → 2018-01-15 11:55 | Outpatient (CLI) | payer MEDICARE, OTHER, SELFPAY ==
[2018-01-15 13:40] LABS: Amphetamine Urine VISTA NEGATIVE (<1000 ng/mL); Barbiturate Urine VISTA NEGATIVE (< 200 ng/mL); Benzodiazepine Urine VISTA NEGATIVE (< 200 ng/mL); Cocaine Urine VISTA NEGATIVE (< 300 ng/mL); Ecstacy Urine VISTA NEGATIVE (< 500 ng/mL); Methadone Urine VISTA NEGATIVE (< 300 ng/mL); PCP Urine VISTA NEGATIVE (< 25 ng/mL); THC Urine VISTA NEGATIVE (< 50 ng/mL); Vista UDS pH Range 6
== END ==
PROVIDERS: Family Provider Family Medicine Geriatric Medicine; PCP Family Medicine Geriatric Medicine; Visit Provider Anesthesiology Pain Medicine
DX: F11.20 Opioid dependence, uncomplicated (principal)
CPT/HCPCS: 80307

== ENCOUNTER → 2018-01-19 17:00 | Outpatient (CLI) | payer MEDICARE, OTHER, SELFPAY ==
[2018-01-19 17:31] LABS: Absolute Lymphocyte Count 1.78 X10^3/ul (0.83-4.51); Absolute Neutrophil Count 3.8 X10^3/uL (2.0-7.7); Basophil# 0.02 X10^3/uL; Basophil% 0.3 % (0-1); Differential Indicated SCAN CRITERIA MET; Eosinophil# 0.09 X10^3/uL; Eosinophils% 1.5 % (0-5); Hematocrit 39.2 % (37-47); Lymphocyte # 1.78 X10^3/ul (4.0); Lymphocyte % 29.2 % (19-41); Mean Corp Hgb Conc 30.6 g/gl (32-36); Mean Corpuscular Volume 78.2 fL (81-99); Mean Platelet Vol. 10.6 fl (6.2-12.0); Monocyte# 0.44 X10^3/uL; Monocyte% 7.2 % (0-10); Neutrophil # 3.76 X10^3/uL (2.7-7.7); Neutrophil % 61.6 % (47-70); POSITIVE COUNT NO; POSITIVE DIFFERENTIAL NO; POSITIVE MORPHOLOGY YES; Platelet Count 190 K/mm3 (150-450); RBC Distribution Width CV 26.6 % (11.6-14.6); Red Blood Count 5.01 M/mm3 (4.2-5.4); White Blood Count 6.1 K/mm3 (4.4-11.0)
[2018-01-19 17:53] LABS: AST(SGOT) 22 U/L (15-37); Alanine Aminotransfer ALT/SGPT 28 U/L (13-56); Alkaline Phosphatase 121 U/L (45-117); Anion Gap 9 (5-15); BUN 24 mg/dL (7-18); BUN/Creat Ratio 25.9 RATIO (10-20); Calcium,Total 8.5 mg/dL (8.5-10.1); Chloride 109 mmol/L (98-107); Creatinine, Serum 0.93 mg/dL (0.55-1.02); EST Glomerular Filtration Rate 64 mL/min (>60); Est Glom Filt Rate - Afr Amer 77 mL/min (>60); Globulin 3.1 g/dL (2.2-4.2); Glucose 194 mg/dL (74-106); Iron 57 ug/dL (50-170); Iron Binding Capacity,Total 334 ug/dL (250-450); Potassium 4.2 mmol/L (3.5-5.1); Protein, Total 6.1 g/dL (6.4-8.2); Sodium Level 146 mmol/L (136-145); Thyroid Stim Hormone (TSH) 1.22 uIU/mL (0.358-3.74)
[2018-01-19 18:23] LABS: Differential Comment SCANNED
== END ==
PROVIDERS: Family Provider Family Medicine Geriatric Medicine; PCP Family Medicine Geriatric Medicine; Visit Provider Family Medicine Geriatric Medicine
DX: D50.9 Iron deficiency anemia, unspecified (principal)
CPT/HCPCS: 36415; 80053; 83540; 83550; 84443; 85025

== ENCOUNTER 2018-02-05 10:31 | Outpatient (RCR) | payer MEDICARE, OTHER, SELFPAY ==
[2018-02-04 00:48] VITALS: BP 141/76; PULSE 68; RESP 18; TEMP 36.8
[2018-02-05 10:40] VITALS: BP 161/74; PULSE 79; RESP 16; TEMP 36.3
--- NOTE | 2018-02-05 10:59 | PN.PCM_ITS ---
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 (2) Type 2 diabetes mellitus without complications Status: Acute Current Visit: No Code(s): E11.9 - Type 2 diabetes mellitus without complications (3) PVD (peripheral vascular disease) Status: Acute Current Visit: No Code(s): I73.9 - Peripheral vascular disease , unspecified (4) Lower extremity edema Status: Acute Current Visit: No Code(s): R60.0 - Localized edema (5) Delayed wound healing Status: Acute Current Visit: No Code(s): T14.8XXD - Other injury of unspecified body region, subsequent encounter Type of Wound Date of Service: 02/05/18 Chief Complaint: non healing right lower leg ulcer History of Wound: This 66 year old diabetic female was referred to the wound healing center for a non healing ulcer to the right lateral lower leg. The patient says she is unsure the exact amount of time the ulcer has been opened, but says it is around 3 months. She says she has not done anything yet on her own to treat the ulcer. She says there was no trauma or injury that caused the ulcer. She says that she has always had swelling in her lower legs and she does not routinely keep compression on her legs. She has not done anything to treat the area on her own other than keeping the ulcer covered. She denies any pus to the area or any extending redness. She currently denies any feelings of nausea, vomiting, fever, or chills. Progress of Wound: Both ulcer sites appear healed this week. She currently denies any feelings of nausea, vomiting, fever, or chills. - Physical Exam Vital Signs Temp Pulse Resp BP 97.3 F L 79 16 161/74 H 02/05/18 10:40 02/05/18 10:40 02/05/18 10:40 02/05/18 10:40 General: Alert, Oriented x3, Cooperative, No apparent distress Extremities: Capillary Refill Less than 3 Seconds, No Calf Tenderness, Diminished Peripheral Pulses, Edema Skin: Ulcer/ Wound - Both previous ulcer sites are healed this week without any signs or symptoms of local infectin appreciated. Wound Measurements and Assessment WC - Nurse 1 - General Ulcer Measurement Start: 02/05/18 10:37 Freq: Status: Active Protocol: Activity Type Activity Date Activity User E-Sign Co-Sign Detail Recorded Client Recorded Date Recorded By Document 02/05/18 10:40 [id number] 02/05/18 10:49 02/05/18 10:40 Wound Center Nurse 1 [Ulcer Assessment] #2 RIGHT SUPERIOR ROBB -Combined with other wound No -Current Size (cm) - Length 1.0 -Current Size (cm) - Width 0.3 -Current Size (cm) - Depth 0.1 -Total Square Cm 0.30 -Date of Last Picture (Recall this 02/05/18 field) -Photo Taken Yes -Epithelialization Large 67-100% -Tunneling No -Undermining/Tunneling No -Circular Undermining No -Temperature (Gricel-wound Skin No Abnormality Appearance) (Pt Warm) -Tenderness on Palpation (Gricel-wound No Skin Appearance) -Ulcer Cleansing Not Cleansed -Foul Odor after Cleansing No -Anesthetic Used 4% Lidocaine Solution #1 R Lat Robb -Combined with other wound No -Current Size (cm) - Length 0.1 -Current Size (cm) - Width 0.1 -Current Size (cm) - Depth 0.1 -Total Square Cm 0.01 -Date of Last Picture (Recall this 02/05/18 field) -Photo Taken Yes -Epithelialization Large 67-100% -Tunneling No -Undermining/Tunneling No -Circular Undermining No [Edema Assessment] -Lower Limb Edema Present Yes -Right Calf (cm) 40.2 -Right Ankle (cm) 30.5 -Left Calf (cm) 35.8 -Left Ankle (cm) 20.8 WC - Nurse 2 - General Ulcer CM Notes Start: 02/05/18 10:37 Freq: Status: Active Protocol: Activity Type Activity Date Activity User E-Sign Co-Sign Detail Recorded Client Recorded Date Recorded By Document 02/05/18 10:51 [id number] 02/05/18 10:52 02/05/18 10:51 Wound Center Nurse 2 [Procedure/Treatment] #2 RIGHT SUPERIOR ROBB -Time 10:51 -Post Debridement Size (cm) - Length 0 -Post Debridement Size (cm) - Width 0 -Post Debridement Size (cm) - Depth 0 -Total Square Cm 0 #1 R Lat Robb -Time 10:52 -Post Debridement Size (cm) - Length 0 -Post Debridement Size (cm) - Width 0 -Post Debridement Size (cm) - Depth 0 -Total Square Cm 0 [See Physician Procedure note for Specifics] Musculoskeletal: No Tenderness to Palpation of Joints or Extremities Neurological: Sensory exam intact to light touch and pain Psych/Mental Status: Normal Affect, Appropriate Debridement Note Post-Debridement Measurements/Treatment WC - Nurse 2 - General Ulcer CM Notes Start: 02/05/18 10:37 Freq: Status: Active Protocol: Activity Type Activity Date Activity User E-Sign Co-Sign Detail Recorded Client Recorded Date Recorded By Document 02/05/18 10:51 [id number] 02/05/18 10:52 CS 02/05/18 10:51 Wound Center Nurse 2 #2 RIGHT SUPERIOR ROBB -Time 10:51 -Post Debridement Size (cm) - Length 0 -Post Debridement Size (cm) - Width 0 -Post Debridement Size (cm) - Depth 0 -Total Square Cm 0 #1 R Lat Robb -Time 10:52 -Post Debridement Size (cm) - Length 0 -Post Debridement Size (cm) - Width 0 -Post Debridement Size (cm) - Depth 0 -Total Square Cm 0 No debridement was completed today Assessment/Plan Assessment: Ulcer right lower leg, DM II, PVD Plan: Patient was examined and evaluated again today. No debridement was performed today as the patient has healed both ulcer sites. Compression applied with double layered tuibigrips. The patient was educated on the importance of keeping compression to the area, even though she has healed her ulcer. I discussed that she is to keep compression stockings on on a daily basis in order to keep her legs from developing new ulcers. Patient was instructed to continue with proper diet as well as the importance of tight glycemic control. The patient was educated on all signs and symptoms of local and systemic infection, and she was instructed to go to the emergency room immediately should she notice any. All other questions and concerns were answered to the patient's satisfaction today. At this time, the patient will be discharged from the wound healing center. She is to follow back up if needed.
== END 2018-03-06 23:59 ==
LOC: WC 10:31
PROVIDERS: Family Provider Family Medicine Geriatric Medicine; PCP Family Medicine Geriatric Medicine; Visit Provider Podiatrist
DX: Z09 Encounter for follow-up examination after completed treatment for conditions other than malignant neoplasm (principal); E11.51 Type 2 diabetes mellitus with diabetic peripheral angiopathy without gangrene; R60.0 Localized edema; I35.0 Nonrheumatic aortic (valve) stenosis; I34.2 Nonrheumatic mitral (valve) stenosis; I27.29 Other secondary pulmonary hypertension; M79.89 Other specified soft tissue disorders
CPT/HCPCS: 99211; G0463

== ENCOUNTER → 2018-03-30 11:52 | Outpatient (CLI) | payer MEDICARE, OTHER, SELFPAY ==
[2018-03-30 12:03] VITALS: BP 133/70; PULSE 66; RESP 16; TEMP 36.2; O2SAT 95; BMI 32.1
[2018-03-30 17:44] LABS: Absolute Lymphocyte Count 1.28 X10^3/ul (0.83-4.51); Absolute Neutrophil Count 4.4 X10^3/uL (2.0-7.7); Basophil# 0.03 X10^3/uL; Basophil% 0.5 % (0-1); Eosinophil# 0.07 X10^3/uL; Eosinophils% 1.1 % (0-5); Hematocrit 43.4 % (37-47); Hemoglobin 13.5 g/dl (12.0-15.0); Lymphocyte # 1.28 X10^3/ul (4.0); Lymphocyte % 20.5 % (19-41); Mean Corp Hgb Conc 31.1 g/gl (32-36); Mean Corpuscular Hgb 26.5 pg (27.0-32.0); Mean Corpuscular Volume 85.1 fL (81-99); Mean Platelet Vol. 10.6 fl (6.2-12.0); Monocyte# 0.49 X10^3/uL; Monocyte% 7.8 % (0-10); Neutrophil # 4.37 X10^3/uL (2.7-7.7); Neutrophil % 69.9 % (47-70); Platelet Count 164 K/mm3 (150-450); RBC Distribution Width CV 20.7 % (11.6-14.6); RBC Distribution Width SD 65.1 fl (35.1-43.9); White Blood Count 6.3 K/mm3 (4.4-11.0)
[2018-03-30 17:46] LABS: Differential Indicated SCAN CRITERIA MET; POSITIVE COUNT NO; POSITIVE DIFFERENTIAL NO; POSITIVE MORPHOLOGY YES
[2018-03-30 18:19] LABS: ALB/GLOB Ratio 0.8 RATIO (0.9-2.4); AST(SGOT) 224 U/L (15-37); Alanine Aminotransfer ALT/SGPT 164 U/L (13-56); Albumin, Serum 2.1 g/dL (3.2-5.0); Alkaline Phosphatase 115 U/L (45-117); Anion Gap 10 (5-15); BUN 19 mg/dL (7-18); BUN/Creat Ratio 24.6 RATIO (10-20); Calcium,Total 7.7 mg/dL (8.5-10.1); Chloride 109 mmol/L (98-107); Creatinine, Serum 0.77 mg/dL (0.55-1.02); EST Glomerular Filtration Rate 79 mL/min (>60); Est Glom Filt Rate - Afr Amer 95 mL/min (>60); Estimated Creatinine Clearance 43.92 ml/min; Globulin 2.8 g/dL (2.2-4.2); Glucose 155 mg/dL (74-106); Potassium 3.8 mmol/L (3.5-5.1); Protein, Total 4.9 g/dL (6.4-8.2); Sodium Level 146 mmol/L (136-145); Thyroid Stim Hormone (TSH) 1.79 uIU/mL (0.358-3.74)
[2018-03-30 18:23] LABS: Vitamin D,25 Hydroxy 35.1 ng/mL (29.95-100.01)
[2018-04-01 08:12] LABS: HEPATITIS B SURFACE AG Negative (Negative); Hepatitis A AB, Total Negative (Negative); Hepatitis A IgM Antibody Negative (Negative); Hepatitis B Core AB IgM Negative (Negative); Hepatitis B Core Ab Total Positive (Negative); Hepatitis C Ab <0.1 s/co ratio (0.0-0.9)
[2018-04-01 14:14] LABS: Hep B Surface Antibodies Reactive (.)
== END ==
PROVIDERS: Family Provider Family Medicine Geriatric Medicine; PCP Family Medicine Geriatric Medicine; Visit Provider Family Medicine Geriatric Medicine
DX: D50.9 Iron deficiency anemia, unspecified (principal); K90.9 Intestinal malabsorption, unspecified; K76.9 Liver disease, unspecified; E11.9 Type 2 diabetes mellitus without complications; I10 Essential (primary) hypertension; E55.9 Vitamin D deficiency, unspecified; Z13.89 Encounter for screening for other disorder
CPT/HCPCS: 96365; 36415; 80053; 82306; 84443; 85025; 86704; 86705; 86706; 86708; 86709; 86803; 87340; J1756; J7050; A4216

== ENCOUNTER → 2018-04-01 11:22 | Outpatient (CLI) | payer MEDICARE, OTHER, SELFPAY ==
[2018-04-01 11:34] VITALS: BP 148/66; PULSE 65; RESP 18; TEMP 36.5; O2SAT 96; BMI 31.6
== END ==
PROVIDERS: Family Provider Family Medicine Geriatric Medicine; PCP Family Medicine Geriatric Medicine; Visit Provider Family Medicine Geriatric Medicine
DX: D50.9 Iron deficiency anemia, unspecified (principal); K90.9 Intestinal malabsorption, unspecified
CPT/HCPCS: 96365; J1756; J7050; A4216

== ENCOUNTER → 2018-04-03 11:50 | Outpatient (CLI) | payer MEDICARE, OTHER, SELFPAY ==
[2018-04-03 12:32] VITALS: BP 116/71; PULSE 72; RESP 16; TEMP 36.6; O2SAT 94; BMI 32.6
== END ==
PROVIDERS: Family Provider Family Medicine Geriatric Medicine; PCP Family Medicine Geriatric Medicine; Visit Provider Family Medicine Geriatric Medicine
DX: D50.9 Iron deficiency anemia, unspecified (principal); K90.9 Intestinal malabsorption, unspecified
CPT/HCPCS: 96365; J1756; J7050; A4216

== ENCOUNTER → 2018-04-06 08:49 | Outpatient (CLI) | payer MEDICARE, OTHER, SELFPAY ==
--- NOTE | 2018-04-06 08:54 | US_ITS ---
STUDY: ABDOMINAL ULTRASOUND - RIGHT UPPER QUADRANT REASON FOR VISIT: Female, 67 years old. Elevated LFTs. TECHNIQUE: Ultrasound evaluation of the right upper quadrant was performed with real-time and static castillo-scale imaging. TECHNICAL QUALITY: Adequate. COMPARISON: None. FINDINGS: Liver: The liver measures 13.9 cm. There is increased echogenicity consistent with fatty infiltration. There is mild intrahepatic ductal dilatation. There is hepatic color flow. The direction of portal flow is hepatopetal. There is an irregular area of echogenicity in the right liver with acoustic shadowing suggesting calcification. Gallbladder: The patient is status post cholecystectomy. Common Bile Duct (C.B.D.): The common bile duct measures 19 mm. There are no visualized filling defects. Pancreas: Normal size of the head, body and tail of the pancreas. There is normal echogenicity of the pancreas. There is no demonstrated pancreatic mass or cyst. Right Kidney: Normal size of the right kidney. The right kidney measures 10.3 cm. Normal renal cortex. The right cortex measures 1.7 cm. There is no demonstrated renal mass or cyst. There is no right hydronephrosis. US/Liver IMPRESSION: 1. Status post cholecystectomy. There is intra and extrahepatic ductal dilatation thought to be secondary to the postcholecystectomy state. There is no visualized filling defect. 2. Calcification in the posterior right liver. 3. Fatty infiltration liver. Electronically Signed: Marcial Winston DO at 17:15 EDT Tel [phone], Service support ,
[2018-04-06 12:24] VITALS: BP 150/99; PULSE 75; RESP 16; TEMP 36.8; BMI 31.6
== END ==
PROVIDERS: Family Provider Family Medicine Geriatric Medicine; PCP Family Medicine Geriatric Medicine; Visit Provider Family Medicine Geriatric Medicine
DX: K76.9 Liver disease, unspecified (principal); R10.9 Unspecified abdominal pain; D50.9 Iron deficiency anemia, unspecified; K90.9 Intestinal malabsorption, unspecified
CPT/HCPCS: 96365; 76705; J1756; J7050; A4216

== ENCOUNTER → 2018-04-08 11:41 | Outpatient (CLI) | payer MEDICARE, OTHER, SELFPAY ==
[2018-04-08 11:52] VITALS: BP 134/78; PULSE 67; RESP 16; TEMP 37.1; O2SAT 98
[2018-04-08 11:54] VITALS: BP 134/78; PULSE 66; RESP 16; TEMP 36.9; O2SAT 98; BMI 32.6
== END ==
PROVIDERS: Family Provider Family Medicine Geriatric Medicine; PCP Family Medicine Geriatric Medicine; Visit Provider Family Medicine Geriatric Medicine
DX: D50.9 Iron deficiency anemia, unspecified (principal); K90.9 Intestinal malabsorption, unspecified
CPT/HCPCS: 96365; J1756; J7050; A4216

== ENCOUNTER → 2018-04-15 14:04 | Outpatient (CLI) | payer MEDICARE, OTHER, SELFPAY ==
[2018-04-15 17:37] LABS: Iron 96 ug/dL (50-170); Iron Binding Capacity,Total 173 ug/dL (250-450)
[2018-04-15 17:43] LABS: Absolute Lymphocyte Count 1.44 X10^3/ul (0.83-4.51); Absolute Neutrophil Count 4.7 X10^3/uL (2.0-7.7); Basophil# 0.02 X10^3/uL; Basophil% 0.3 % (0-1); Eosinophil# 0.08 X10^3/uL; Eosinophils% 1.2 % (0-5); Hematocrit 39.8 % (37-47); Hemoglobin 12.3 g/dl (12.0-15.0); Lymphocyte # 1.44 X10^3/ul (4.0); Lymphocyte % 20.7 % (19-41); Mean Corp Hgb Conc 30.9 g/gl (32-36); Mean Corpuscular Hgb 27.8 pg (27.0-32.0); Mean Corpuscular Volume 89.8 fL (81-99); Mean Platelet Vol. 10.7 fl (6.2-12.0); Monocyte# 0.69 X10^3/uL; Monocyte% 9.9 % (0-10); Neutrophil % 67.6 % (47-70); Platelet Count 138 K/mm3 (150-450); RBC Distribution Width CV 20.5 % (11.6-14.6); RBC Distribution Width SD 67.3 fl (35.1-43.9); Red Blood Count 4.43 M/mm3 (4.2-5.4)
[2018-04-15 17:44] LABS: Differential Indicated SCAN CRITERIA MET; POSITIVE COUNT NO; POSITIVE DIFFERENTIAL NO; POSITIVE MORPHOLOGY YES
[2018-04-15 18:26] LABS: Anisocytosis 1+; Differential Comment SCANNED
== END ==
PROVIDERS: Family Provider Family Medicine Geriatric Medicine; PCP Family Medicine Geriatric Medicine; Visit Provider Family Medicine Geriatric Medicine
DX: K90.9 Intestinal malabsorption, unspecified (principal)
CPT/HCPCS: 36415; 83540; 83550; 85025

== ENCOUNTER 2018-06-04 10:30 | Outpatient (RCR) | payer MEDICARE, OTHER, SELFPAY ==
[2018-05-14 10:52] VITALS: BP 113/66; PULSE 80; RESP 16; TEMP 36.4
--- NOTE | 2018-05-14 13:54 | PN.PCM_ITS ---
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 (2) Type 2 diabetes mellitus without complications Status: Acute Current Visit: No Code(s): E11.9 - Type 2 diabetes mellitus without complications (3) PVD (peripheral vascular disease) Status: Acute Current Visit: No Code(s): I73.9 - Peripheral vascular disease, unspecified (4) Lower extremity edema Status: Acute Current Visit: No Code(s): R60.0 - Localized edema (5) Delayed wound healing Status: Acute Current Visit: No Code(s): T14.8XXD - Other injury of unspecified body region, subsequent encounter Type of Wound Chief Complaint: non healing right lower leg ulcer History of Wound: This 67-year-old diabetic female presents to the wound healing center again after another ulcer is open on her right lower anterior leg. Patient admits to not wearing compression as she was instructed after she was healed and discharged from the wound healing center at her last visit. She has not done anything to treat the area on her own other than keeping the ulcer covered. Patient also states that she has a very small opening to the medial right hallux. She says after her callus was debrided her last podiatry visit with me that she did not keep the area protracted as instructed and has also been walking in shoes that are not appropriate for extended periods of time. She says the area has slowly been breaking down as well. She denies any pus to the area or any extending redness to either of the ulcer sites. She currently denies any feelings of nausea, vomiting, fever, or chills. Progress of Wound: Ulcer to right lower extremity reopened. Small ulcer to right medial hallux. - Physical Exam Vital Signs Temp Pulse Resp BP 97.5 F L 80 16 113/66 05/14/18 10:52 05/14/18 10:52 05/14/18 10:52 05/14/18 10:52 General: Alert, Oriented x3, Cooperative, No apparent distress Extremities: Capillary Refill Less than 3 Seconds, No Calf Tenderness - Negative Josh and Rinaldi sign, Diminished Peripheral Pulses, Edema - Bilateral pitting lower extremity edema Skin: Ulcer/ Wound - Ulcer to right anterior lower leg and right medial hallux with fat layer exposed. Measurements noted. The bases are noted to be a mixture of adherent slough, fibrin, granular tissue, and surrounding hyperkeratotic tissue. There is no purulence, no malodor, no surrounding or extending cellulitis, no increase in warmth, no probing, no tracking, and no undermining to either ulcer site. Wound Measurements and Assessment WC - Nurse 1 - General Ulcer Measurement Start: 05/14/18 10:52 Freq: Status: Active Protocol: Activity Type Activity Date Activity User E-Sign Co-Sign Detail Recorded Client Recorded Date Recorded By Document 05/14/18 10:52 [facility] [id number] 05/14/18 11:02 [facility] 05/14/18 10:52 Wound Center Nurse 1 [Ulcer Assessment] #3- RT MORAN -Combined with other wound No -Current Size (cm) - Length 3.3 -Current Size (cm) - Width 2.7 -Current Size (cm) - Depth 0.1 -Total Square Cm 8.91 -Date of Last Picture (Recall this 05/14/18 field) -Photo Taken Yes -Epithelialization None Present -Tunneling No -Undermining/Tunneling No -Circular Undermining No -Exudate Amt Medium (34-66%) -Exudate Type Serous -Wound Margin Distinct, Outline Attached -Granulation Amt Medium (34-66%) -Granulation Quality Red -Slough/Fibrin Yes -Necrosis Amt Medium (34-66%) -Necrotic Tissue Type Adherent Slough -Texture (Gricel-wound Skin Appearance) Scarring -Moisture (Gricel-wound Skin Appearance Maceration ) Weeping -Color (Gricel-wound Skin Appearance) Erythema Mottled -Temperature (Gricel-wound Skin No Abnormality Appearance) (Pt Warm) -Tenderness on Palpation (Gricel-wound No Skin Appearance) -Ulcer Cleansing Rinsed/ Irrigated with Saline -Foul Odor after Cleansing No -Anesthetic Used 4% Lidocaine Solution [Edema Assessment] -Lower Limb Edema Present Yes -Right Calf (cm) 45 -Right Ankle (cm) 30.7 -Left Calf (cm) 42.1 -Left Ankle (cm) 28.7 WC - Nurse 2 - General Ulcer CM Notes Start: 05/14/18 10:52 Freq: Status: Active Protocol: Activity Type Activity Date Activity User E-Sign Co-Sign Detail Recorded Client Recorded Date Recorded By Document 05/14/18 11:26 DV [id number] 05/14/18 11:33 DV 05/14/18 11:26 Wound Center Nurse 2 [Procedure/Treatment] #4 RIGHT GREAT TOE -Time 11:27 -Correct Patient Yes -Correct Side, Site, Position Yes -Correct Procedure Yes -Procedure Performed Yes -Type of Procedure Debridement -Clinical Debridement Subcutaneous -Post Debridement Size (cm) - Length 0.3 -Post Debridement Size (cm) - Width 0.2 -Post Debridement Size (cm) - Depth 0.1 -Total Square Cm 0.06 -Wound/Ulcer Outcome Not Healed -Ulcer Cleansing Rinsed/ Irrigated with Saline -Foul Odor after Cleansing No -Bioengineered Tissue No -Bleeding Controlled with Pressure -Treatment Response Procedure Tolerated Well #3- RT MORAN -Time 11:26 -Correct Patient Yes -Correct Side, Site, Position Yes -Correct Procedure Yes -Procedure Performed Yes -Type of Procedure Debridement -Clinical Debridement Subcutaneous -Post Debridement Size (cm) - Length 3.4 -Post Debridement Size (cm) - Width 2.8 -Post Debridement Size (cm) - Depth 0.1 -Total Square Cm 9.52 -Wound/Ulcer Outcome Not Healed -Ulcer Cleansing Rinsed/ Irrigated with Saline -Foul Odor after Cleansing No -Bioengineered Tissue No -Bleeding Controlled with Pressure -Treatment Response Procedure Tolerated Well [See Physician Procedure note for Specifics] Pain Scale: 0-10 Numeric [Pain] -Is Patient Pain Free? Yes Musculoskeletal: Tenderness - With manipulation of ulcer sites Neurological: Sensory exam intact to light touch and pain Psych/Mental Status: Normal Affect, Appropriate Debridement Note Post-Debridement Measurements/Treatment WC - Nurse 2 - General Ulcer CM Notes Start: 05/14/18 10:52 Freq: Status: Active Protocol: Activity Type Activity Date Activity User E-Sign Co-Sign Detail Recorded Client Recorded Date Recorded By Document 05/14/18 11:26 DV [id number] 05/14/18 11:33 DV 05/14/18 11:26 Wound Center Nurse 2 #4 RIGHT GREAT TOE -Time 11:27 -Correct Patient Yes -Correct Side, Site, Position Yes -Correct Procedure Yes -Procedure Performed Yes -Type of Procedure Debridement -Clinical Debridement Subcutaneous -Post Debridement Size (cm) - Length 0.3 -Post Debridement Size (cm) - Width 0.2 -Post Debridement Size (cm) - Depth 0.1 -Total Square Cm 0.06 -Wound/Ulcer Outcome Not Healed -Ulcer Cleansing Rinsed/ Irrigated with Saline -Foul Odor after Cleansing No -Bioengineered Tissue No -Bleeding Controlled with Pressure -Treatment Response Procedure Tolerated Well #3- RT MORAN -Time 11:26 -Correct Patient Yes -Correct Side, Site, Position Yes -Correct Procedure Yes -Procedure Performed Yes -Type of Procedure Debridement -Clinical Debridement Subcutaneous -Post Debridement Size (cm) - Length 3.4 -Post Debridement Size (cm) - Width 2.8 -Post Debridement Size (cm) - Depth 0.1 -Total Square Cm 9.52 -Wound/Ulcer Outcome Not Healed -Ulcer Cleansing Rinsed/ Irrigated with Saline -Foul Odor after Cleansing No -Bioengineered Tissue No -Bleeding Controlled with Pressure -Treatment Response Procedure Tolerated Well Pain Scale: 0-10 Numeric Is Patient Pain Free? Yes Wound debrided: Right anterior lower leg Laterality: Right Type of Debridement: Excisional debridement Anesthesia Used: 4% Lidocaine Solution Depth: in the subcutaneous layer Percentage of wound debrided: 100 Instrument Used: 7mm curette Tissue Removed: Adherent slough, fibrin, hyperkeratotic tissue Severity: Fat Layer Exposed Amount of bleeding with debridement: Mild Bleeding Controlled with: Pressure Patient tolerated procedure well - Additional Wound Wound debrided: Right medial hallux Laterality: Right Type of Debridement: Excisional debridement Anesthesia Used: 4% Lidocaine Solution Depth: in the subcutaneous layer Percentage of wound debrided: 100 Instrument Used: #15 blade Tissue Removed: Adherent slough, fibrin, hyperkeratotic tissue Severity: Limited To Skin Breakdown Amount of bleeding with debridement: Mild Bleeding Controlled with: Pressure Patient tolerated procedure: Patient tolerated procedure well Assessment/Plan Assessment: Ulcer right lower leg, DM II, PVD, ulcer right medial hallux Plan: Patient was examined and evaluated again today after she reopened another ulcer to the right anterior lower leg. Patient also has a new very small ulcer to the right medial hallux. Subcutaneous debridement was performed as noted in the clinical panel. Once complete, fibrocol was applied to the ulcer bases, followed by a dry sterile dressing, and compression. Compression applied with double layered tuibigrips. The patient was educated on the importance of keeping compression to the area. I discussed that she is to keep compression stockings on on a daily basis in order to keep her legs from developing new ulcers. Patient was instructed to keep pressure off of the right medial hallux and to avoid any kind of shoe with a tight toe box. She is awaiting the arrival of her diabetic offloading shoes. Patient was instructed to continue with proper high-protein diet as well as the importance of tight glycemic control. The patient was educated on all signs and symptoms of local and systemic infection, and she was instructed to go to the emergency room immediately should she notice any. All other questions and concerns were answered to the patient's satisfaction today. The patient will follow-up in the wound healing center in 1 week to check on progress, but was instructed to call the clinic sooner if needed.
[2018-06-04 11:15] VITALS: BP 124/66; PULSE 72; RESP 16; TEMP 36.6
--- NOTE | 2018-06-04 14:08 | PCM.WC.PN ---
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 (2) Type 2 diabetes mellitus without complications Status: Acute Current Visit: No Code(s): E11.9 - Type 2 diabetes mellitus without complications (3) PVD (peripheral vascular disease) Status: Acute Current Visit: No Code(s): I73.9 - Peripheral vascular disease, unspecified (4) Lower extremity edema Status: Acute Current Visit: No Code(s): R60.0 - Localized edema (5) Delayed wound healing Status: Acute Current Visit: No Code(s): T14.8XXD - Other injury of unspecified body region, subsequent encounter Type of Wound Chief Complaint: non healing right lower leg ulcer History of Wound: This 67-year-old diabetic female presents to the wound healing center again after another ulcer is open on her right lower anterior leg. Patient admits to not wearing compression as she was instructed after she was healed and discharged from the wound healing center at her last visit. She has not done anything to treat the area on her own other than keeping the ulcer covered. Patient also states that she has a very small opening to the medial right hallux. She says after her callus was debrided her last podiatry visit with me that she did not keep the area protracted as instructed and has also been walking in shoes that are not appropriate for extended periods of time. She says the area has slowly been breaking down as well. She denies any pus to the area or any extending redness to either of the ulcer sites. She currently denies any feelings of nausea, vomiting, fever, or chills. Progress of Wound: Ulcer to right lower extremity. Small ulcer to right medial hallux. Both areas show slight improvement. Patient reports not wearing compression or elevating LE as instructed. - Physical Exam Vital Signs Temp Pulse Resp BP 97.8 F 72 16 124/66 H 06/04/18 11:15 06/04/18 11:15 06/04/18 11:15 06/04/18 11:15 General: Alert, Oriented x3, Cooperative, No apparent distress Extremities: Capillary Refill Less than 3 Seconds, No Calf Tenderness - Negative Josh and Rinaldi sign, Diminished Peripheral Pulses, Edema - Bilateral pitting lower extremity edema Skin: Ulcer/ Wound - Ulcer to right anterior lower leg and right medial hallux with fat layer exposed. Measurements noted. The bases are noted to be a mixture of adherent slough, fibrin, granular tissue, and surrounding hyperkeratotic tissue. There is no purulence, no malodor, no surrounding or extending cellulitis, no increase in warmth, no probing, no tracking, and no undermining to either ulcer site. Wound Measurements and Assessment WC - Nurse 1 - General Ulcer Measurement Start: 05/14/18 10:52 Freq: Status: Active Protocol: Activity Type Activity Date Activity User E-Sign Co-Sign Detail Recorded Client Recorded Date Recorded By Document 06/04/18 11:15 [facility] [id number] 06/04/18 11:22 [facility] 06/04/18 11:15 Wound Center Nurse 1 [Ulcer Assessment] #5- LT CALF -Combined with other wound No -Current Size (cm) - Length 0.5 -Current Size (cm) - Width 0.5 -Current Size (cm) - Depth 0.1 -Total Square Cm 0.25 -Date of Last Picture (Recall this 06/04/18 field) -Photo Taken Yes -Epithelialization None Present -Tunneling No -Undermining/Tunneling No -Circular Undermining No -Exudate Amt Small (1-33%) -Exudate Type Serous -Wound Margin Distinct, Outline Attached -Granulation Amt None Present (0 %) -Slough/Fibrin Yes -Necrosis Amt Large (67-100%) -Necrotic Tissue Type Adherent Slough -Structure Exposed None/Limited to Skin Breakdown -Texture (Gricel-wound Skin Appearance) Scarring -Moisture (Gricel-wound Skin Appearance Weeping ) -Color (Gricel-wound Skin Appearance) Erythema -Temperature (Gricel-wound Skin No Abnormality Appearance) (Pt Warm) -Tenderness on Palpation (Gricel-wound No Skin Appearance) -Ulcer Cleansing Rinsed/ Irrigated with Saline -Foul Odor after Cleansing No -Anesthetic Used 5% Lidocaine Gel #4 RIGHT GREAT TOE -Combined with other wound No -Current Size (cm) - Length 0.1 -Current Size (cm) - Width 0.1 -Current Size (cm) - Depth 0.1 -Total Square Cm 0.01 -Date of Last Picture (Recall this 06/04/18 field) -Photo Taken Yes -Epithelialization Large 67-100% -Tunneling No -Undermining/Tunneling No -Circular Undermining No -Exudate Amt None Present (0 %) -Texture (Gricel-wound Skin Appearance) Assessed Callus -Moisture (Gricel-wound Skin Appearance Dry/Scaly ) -Color (Gricel-wound Skin Appearance) Assessed -Temperature (Gricel-wound Skin No Abnormality Appearance) (Pt Warm) -Tenderness on Palpation (Gricel-wound No Skin Appearance) -Ulcer Cleansing Rinsed/ Irrigated with Saline -Foul Odor after Cleansing No -Anesthetic Used 5% Lidocaine Gel #3- RT MORAN -Combined with other wound No -Current Size (cm) - Length 3.2 -Current Size (cm) - Width 2.1 -Current Size (cm) - Depth 0.1 -Total Square Cm 6.72 -Date of Last Picture (Recall this 06/04/18 field) -Photo Taken Yes -Epithelialization Small 1-33% -Tunneling No -Undermining/Tunneling No -Circular Undermining No -Exudate Amt Medium (34-66%) -Exudate Type Serous -Wound Margin Distinct, Outline Attached -Granulation Amt Small (1-33%) -Granulation Quality Red -Slough/Fibrin Yes -Necrosis Amt Large (67-100%) -Necrotic Tissue Type Adherent Slough -Texture (Gricel-wound Skin Appearance) Scarring -Moisture (Gricel-wound Skin Appearance Weeping ) -Color (Gricel-wound Skin Appearance) Erythema -Temperature (Gricel-wound Skin No Abnormality Appearance) (Pt Warm) -Tenderness on Palpation (Gricel-wound No Skin Appearance) -Ulcer Cleansing Rinsed/ Irrigated with Saline -Foul Odor after Cleansing No -Anesthetic Used 5% Lidocaine Gel [Edema Assessment] -Lower Limb Edema Present Yes -Right Calf (cm) 48.5 -Right Ankle (cm) 29.8 -Left Calf (cm) 45.6 -Left Ankle (cm) 28.5 WC - Nurse 2 - General Ulcer CM Notes Start: 05/14/18 10:52 Freq: Status: Active Protocol: Activity Type Activity Date Activity User E-Sign Co-Sign Detail Recorded Client Recorded Date Recorded By Document 06/04/18 12:04 DV [id number] 06/04/18 12:08 DV 06/04/18 12:04 Wound Center Nurse 2 [Procedure/Treatment] #5- LT CALF -Time 12:08 -Correct Patient Yes -Correct Side, Site, Position Yes -Procedure Performed No -Post Debridement Size (cm) - Length 0 -Post Debridement Size (cm) - Width 0 -Post Debridement Size (cm) - Depth 0 -Total Square Cm 0 -Wound/Ulcer Outcome Healed- Epithelialized -Foul Odor after Cleansing No -Offloading No #4 RIGHT GREAT TOE -Time 12:06 -Correct Patient Yes -Correct Side, Site, Position Yes -Correct Procedure Yes -Procedure Performed Yes -Type of Procedure Debridement -Clinical Debridement Selective -Post Debridement Size (cm) - Length 0.1 -Post Debridement Size (cm) - Width 0.1 -Post Debridement Size (cm) - Depth 0.1 -Total Square Cm 0.01 -Wound/Ulcer Outcome Not Healed -Ulcer Cleansing Rinsed/ Irrigated with Saline -Foul Odor after Cleansing No -Bioengineered Tissue No -Bleeding Controlled with NA -Offloading No -Treatment Response Procedure Tolerated Well #3- RT MORAN -Time 12:06 -Correct Patient Yes -Correct Side, Site, Position Yes -Correct Procedure Yes -Procedure Performed Yes -Type of Procedure Debridement -Clinical Debridement Subcutaneous -Post Debridement Size (cm) - Length 3.2 -Post Debridement Size (cm) - Width 2.0 -Post Debridement Size (cm) - Depth 0.1 -Total Square Cm 6.40 -Wound/Ulcer Outcome Not Healed -Ulcer Cleansing Rinsed/ Irrigated with Saline -Foul Odor after Cleansing No -Bioengineered Tissue No -Bleeding Controlled with Pressure -Offloading No -Treatment Response Procedure Tolerated Well [See Physician Procedure note for Specifics] Pain Scale: 0-10 Numeric [Pain] -Is Patient Pain Free? Yes Musculoskeletal: Tenderness - With manipulation of ulcer sites Neurological: Sensory exam intact to light touch and pain Psych/Mental Status: Normal Affect, Appropriate Debridement Note Post-Debridement Measurements/Treatment WC - Nurse 2 - General Ulcer CM Notes Start: 05/14/18 10:52 Freq: Status: Active Protocol: Activity Type Activity Date Activity User E-Sign Co-Sign Detail Recorded Client Recorded Date Recorded By Document 05/14/18 11:26 DV [id number] 05/14/18 11:33 DV Document 06/04/18 12:04 DV [id number] 06/04/18 12:08 DV 05/14/18 06/04/18 11:26 12:04 Wound Center Nurse 2 #5- LT CALF -Time 12:08 -Correct Patient Yes -Correct Side, Site, Position Yes -Procedure Performed No -Post Debridement Size (cm) - Length 0 -Post Debridement Size (cm) - Width 0 -Post Debridement Size (cm) - Depth 0 -Total Square Cm 0 -Wound/Ulcer Outcome Healed- Epithelialized -Foul Odor after Cleansing No -Offloading No #4 RIGHT GREAT TOE -Time 11:27 12:06 -Correct Patient Yes Yes -Correct Side, Site, Position Yes Yes -Correct Procedure Yes Yes -Procedure Performed Yes Yes -Type of Procedure Debridement Debridement -Clinical Debridement Subcutaneous Selective -Post Debridement Size (cm) - Length 0.3 0.1 -Post Debridement Size (cm) - Width 0.2 0.1 -Post Debridement Size (cm) - Depth 0.1 0.1 -Total Square Cm 0.06 0.01 -Wound/Ulcer Outcome Not Healed Not Healed -Ulcer Cleansing Rinsed/ Rinsed/ Irrigated with Irrigated with Saline Saline -Foul Odor after Cleansing No No -Bioengineered Tissue No No -Bleeding Controlled with Pressure NA -Offloading No -Treatment Response Procedure Procedure Tolerated Well Tolerated Well #3- RT MORAN -Time 11:26 12:06 -Correct Patient Yes Yes -Correct Side, Site, Position Yes Yes -Correct Procedure Yes Yes -Procedure Performed Yes Yes -Type of Procedure Debridement Debridement -Clinical Debridement Subcutaneous Subcutaneous -Post Debridement Size (cm) - Length 3.4 3.2 -Post Debridement Size (cm) - Width 2.8 2.0 -Post Debridement Size (cm) - Depth 0.1 0.1 -Total Square Cm 9.52 6.40 -Wound/Ulcer Outcome Not Healed Not Healed -Ulcer Cleansing Rinsed/ Rinsed/ Irrigated with Irrigated with Saline Saline -Foul Odor after Cleansing No No -Bioengineered Tissue No No -Bleeding Controlled with Pressure Pressure -Offloading No -Treatment Response Procedure Procedure Tolerated Well Tolerated Well Pain Scale: 0-10 Numeric Is Patient Pain Free? Yes Yes Wound debrided: Right anterior lower leg Laterality: Right Type of Debridement: Excisional debridement Anesthesia Used: 4% Lidocaine Solution Depth: in the subcutaneous layer Percentage of wound debrided: 100 Instrument Used: 7mm curette Tissue Removed: Adherent slough, fibrin, hyperkeratotic tissue Severity: Fat Layer Exposed Amount of bleeding with debridement: Mild Bleeding Controlled with: Pressure Patient tolerated procedure well - Additional Wound Wound debrided: Right medial hallux Laterality: Right Type of Debridement: Selective debridement Anesthesia Used: 4% Lidocaine Solution Depth: in the subcutaneous layer Percentage of wound debrided: 100 Instrument Used: #15 blade Tissue Removed: Adherent slough, fibrin, hyperkeratotic tissue Severity: Limited To Skin Breakdown Amount of bleeding with debridement: Mild Bleeding Controlled with: Pressure Assessment/Plan Assessment: Ulcer right lower leg, DM II, PVD, ulcer right medial hallux Plan: Patient was examined and evaluated again today. Subcutaneous debridement was performed as noted in the clinical panel to the right lower leg and selective debridement to right hallux. Once complete, fibrocol was applied to the ulcer bases, followed by a dry sterile dressing, and compression. Compression applied with double layered tuibigrips. The patient was educated on the importance of keeping compression to the area. I discussed that she is to keep compression stockings on on a daily basis in order to keep her legs from developing new ulcers. Patient has been non compliant since her last visit with using compression or elevating her LE. Patient was instructed to keep pressure off of the right medial hallux and to avoid any kind of shoe with a tight toe box. She is awaiting the arrival of her diabetic offloading shoes. Patient was instructed to continue with proper high-protein diet as well as the importance of tight glycemic control. The patient was educated on all signs and symptoms of local and systemic infection, and she was instructed to go to the emergency room immediately should she notice any. All other questions and concerns were answered to the patient's satisfaction today. The patient will follow-up in the wound healing center in 1 week to check on progress, but was instructed to call the clinic sooner if needed.
== END 2018-06-05 23:59 ==
LOC: WC 10:30
PROVIDERS: Family Provider Family Medicine Geriatric Medicine; PCP Family Medicine Geriatric Medicine; Visit Provider Podiatrist
DX: E11.622 Type 2 diabetes mellitus with other skin ulcer (principal); E11.51 Type 2 diabetes mellitus with diabetic peripheral angiopathy without gangrene; R60.0 Localized edema; L97.812 Non-pressure chronic ulcer of other part of right lower leg with fat layer exposed; L84 Corns and callosities; E11.621 Type 2 diabetes mellitus with foot ulcer; L97.511 Non-pressure chronic ulcer of other part of right foot limited to breakdown of skin; Z91.19 Patient's noncompliance with other medical treatment and regimen
CPT/HCPCS: 11042; 99213; G0463

== ENCOUNTER → 2018-06-09 16:06 | Outpatient (CLI) | payer MEDICARE, OTHER, SELFPAY ==
--- NOTE | 2018-06-09 16:20 | RAD_ITS ---
STUDY: X-RAY - LUMBAR SPINE REASON FOR EXAM: Female, 67 years old. Low back pain and bilateral lower extremity weakness. TECHNIQUE: 3 view(s) of the lumbar spine were obtained. COMPARISON: Comparison is made with prior examination dated October 30, 2015. FINDINGS: Normal lumbar lordosis. There is a levoscoliosis of the lumbar spine. There is a normal alignment of the vertebrae. There is multilevel endplate spondylosis of the lumbar vertebrae. There is multi-level degenerative disc disease with multi-level disc space narrowing. There is atherosclerotic calcification of the abdominal aorta without a demonstrated aneurysm. Calcification of the vas deferens. Prior screw fixation of the proximal left femur. RAD/Lumbar Spine 2 or 3 Views IMPRESSION: Degenerative changes of the spine, as detailed above. Electronically Signed: Bandar Mckeon MD at 16:00 EST Tel [phone], Service support ,
== END ==
PROVIDERS: Family Provider Family Medicine Geriatric Medicine; PCP Family Medicine Geriatric Medicine; Referring Provider Family Medicine Geriatric Medicine; Visit Provider Family Medicine Geriatric Medicine
DX: G83.10 Monoplegia of lower limb affecting unspecified side (principal)
CPT/HCPCS: 72100

== ENCOUNTER → 2018-06-16 18:47 | Outpatient (CLI) | payer MEDICARE, OTHER, SELFPAY ==
[2018-06-15 14:40] VITALS: BMI 32.6
--- OUTSIDE RECORDS SUMMARY | 2018-08-03 00:07 | XMS RPT_ITS ---
:1950 Author Organization OHIP Support Name Relationship Address Phone RENEE RIVERAY Unavailable [address] + [place] [address] R Unavailable Unavailable Unavailable DOHENY, UBALDO Unavailable [address] + [place] [address] R Unavailable Unavailable Unavailable DOHENY, UBALDO Unavailable [address] + [place] [address] R Unavailable Unavailable Unavailable DOHENY, UBALDO Unavailable [address] + [place] [address] R Unavailable Unavailable Unavailable DOHENY, UBALDO Unavailable [address] + [place] [address] R Unavailable Unavailable Unavailable DOHENY, UBALDO Unavailable [address] + [place] [address] R Unavailable Unavailable Unavailable DOHENY, UBALDO Unavailable [address] + [place] [address] R Unavailable Unavailable Unavailable DOHENY, UBALDO Unavailable [address] + [place] [address] R Unavailable Unavailable Unavailable DOHENY, UBALDO Unavailable [address] + [place] [address] R Unavailable Unavailable Unavailable DOHENY, UBALDO Unavailable [address] + [place] [address] R Unavailable Unavailable Unavailable DOHENY, UBALDO Unavailable [address] + [place] [address] R Unavailable Unavailable Unavailable DOHENY, UBALDO Unavailable [address] + [place] [address] R Unavailable Unavailable Unavailable DOHENY, UBALDO Unavailable [address] + [place] [address] R Unavailable Unavailable Unavailable DOHENY, UBALDO Unavailable [address] + [place] [address] R Unavailable Unavailable Unavailable DOHENY, UBALDO Unavailable [address] + [place] [address] R Unavailable Unavailable Unavailable DOHENY, UBALDO Unavailable [address] + [place] [address] R Unavailable Unavailable Unavailable DOHENY, UBALDO Unavailable [address] + [place] [address] R Unavailable Unavailable Unavailable DOHENY, UBALDO Unavailable [address] + [place] [address] R Unavailable Unavailable Unavailable DOHENY, UBALDO Unavailable [address] + [place] [address] R Unavailable Unavailable Unavailable DOHENY, UBALDO Unavailable [address] + [place] [address] R Unavailable Unavailable Unavailable DOHENY, UBALDO Unavailable [address] + [place] [address] R Unavailable Unavailable Unavailable DOHENY, UBALDO Unavailable [address] + [place] [address] R Unavailable Unavailable Unavailable DOHENY, UBALDO Unavailable [address] + [place] [address] R Unavailable Unavailable Unavailable DOHENY, UBALDO Unavailable [address] + [place] [address] R Unavailable Unavailable Unavailable DOHENY, UBALDO Unavailable [address] + [place] [address] R Unavailable Unavailable Unavailable DOHENY, UBALDO Unavailable [address] + [place] [address] R Unavailable Unavailable Unavailable DOHENY, UBALDO Unavailable [address] + [place] [address] R Unavailable Unavailable Unavailable DOHENY, UBALDO Unavailable [address] + [place] [address] R Unavailable Unavailable Unavailable DOHENY, UBALDO Unavailable [address] + [place] [address] R Unavailable Unavailable Unavailable DOHENY, UBALDO Unavailable [address] + [place] [address] R Unavailable Unavailable Unavailable DOHENY, UBALDO Unavailable [address] + [place] [address] R Unavailable Unavailable Unavailable DOHENY, UBALDO Unavailable [address] + [place] [address] R Unavailable Unavailable Unavailable DOHENY, UBALDO Unavailable [address] + [place] [address] R Unavailable Unavailable Unavailable R Unavailable Unavailable Unavailable DOHENY, UBALDO Unavailable [address] + [place] [address] R Unavailable Unavailable Unavailable R Unavailable Unavailable Unavailable RENÉE WOOD Unavailable [address] + [place] [address] DOHENY, JUAN Unavailable [address] + [place] [address] R Unavailable Unavailable Unavailable RADHA WOODORA Unavailable [address] + [place] [address] DOHENY, JUAN Unavailable [address] + [place] [address] R Unavailable Unavailable Unavailable Care Team Providers Name Role Phone Matheus, Albert Chi Attending Unavailable Matheus, Albert Chi Referring Unavailable Matheus, Albert Chi Primary Care Unavailable Dwain Carranza Attending Unavailable Matheus, Albert Chi Primary Care Unavailable Matheus, Albert Chi Primary Care Unavailable Jillian Red Attending Unavailable Ramirez Parker Attending Unavailable Ramirez Parker Referring Unavailable Matheus, Albert Chi Primary Care Unavailable Matheus, Albert Chi Primary Care Unavailable Britton Bryan Admitting Unavailable Britton Bryan Referring Unavailable José Miguel Brady Attending Unavailable Gallo Hogan Consulting Unavailable Britton Bryan Admitting Unavailable Britton Bryan Attending Unavailable Britton Bryan Referring Unavailable Matheus, Albert Chi Primary Care Unavailable Olivier Pattersonasem Consulting Unavailable Britton Bryan Admitting Unavailable Ras Patterson Attending Unavailable Britton Bryan Referring Unavailable Matheus, Albert Chi Primary Care Unavailable Ras Patterson Consulting Unavailable Britton Bryan Admitting Unavailable José Miguel Brady Attending Unavailable Britton Bryan Referring Unavailable Matheus, Albert Chi Primary Care Unavailable Gallo Hogan Consulting Unavailable José Miguel Brady Consulting Unavailable Imer Alvarado Attending Unavailable Imer Alvarado Referring Unavailable Matheus, Albert Chi Primary Care Unavailable Aroldo Sharma Attending Unavailable Aroldo Sharma Referring Unavailable Matheus, Albert Chi Primary Care Unavailable Imer Alvarado Attending Unavailable Aroldo Sharma Attending Unavailable Aroldo Sharma Referring Unavailable Matheus, Albert Chi Primary Care Unavailable Matheus, Albert Chi Attending Unavailable Matheus, Albert Chi Primary Care Unavailable Matheus, Albert Chi Attending Unavailable Matheus, Albert Chi Referring Unavailable Matheus, Albert Chi Primary Care Unavailable Mario Chang Attending Unavailable Basali Aymarty Referring Unavailable Matheus, Albert Chi Primary Care Unavailable Leroy Reed Attending Unavailable Leroy Reed Referring Unavailable Matheus, Albert Chi Primary Care Unavailable Aroldo Sharma Attending Unavailable Aroldo Sharma Referring Unavailable Matheus, Albert Chi Primary Care Unavailable Matheus, Albert Chi Attending Unavailable Matheus, Albert Chi Primary Care Unavailable Imer Alvarado Attending Unavailable Matheus, Albert Chi Referring Unavailable Britton Bryan Admitting Unavailable José Miguel Brady Attending Unavailable Britton Bryan Referring Unavailable Matheus, Albert Chi Primary Care Unavailable Gallo Hogan Consulting Unavailable José Miguel Brady Consulting Unavailable Aroldo Sharma Attending Unavailable Matheus, Albert Chi Primary Care Unavailable Aroldo Sharma Referring Unavailable Matheus, Albert Chi Attending Unavailable Matheus, Albert Chi Primary Care Unavailable Rose Mary Taylor Attending Unavailable Matheus, Albert Chi Attending Unavailable Matheus, Albert Chi Referring Unavailable Matheus, Albert Chi Primary Care Unavailable Matheus, Albert Chi Attending Unavailable Matheus, Albert Chi Referring Unavailable Matheus, Albert Chi Primary Care Unavailable Aroldo Sharma Attending Unavailable Matheus, Albert Chi Primary Care Unavailable Aroldo Sharma Attending Unavailable Matheus, Albert Chi Primary Care Unavailable Matheus, Albert Chi Attending Unavailable Matheus, Albert Chi Primary Care Unavailable Matheus, Albert Chi Attending Unavailable Matheus, Albert Chi Referring Unavailable Matheus, Albert Chi Primary Care Unavailable Matheus, Albert Chi Attending Unavailable Matheus, Albert Chi Referring Unavailable Matheus, Albert Chi Primary Care Unavailable Matheus, Albert Chi Attending Unavailable Matheus, Albert Chi Referring Unavailable Matheus, Albert Chi Primary Care Unavailable Matheus, Albert Chi Attending Unavailable Matheus, Albert Chi Referring Unavailable Matheus, Albert Chi Primary Care Unavailable Matheus, Albert Chi Consulting Unavailable Matheus, Albert Chi Attending Unavailable Matheus, Albert Chi Referring Unavailable Matheus, Albert Chi Primary Care Unavailable Aroldo Sharma Attending Unavailable Zachary, Aroldo Referring Unavailable Matheus, Albert Chi Primary Care Unavailable Aroldo Sharma Attending Unavailable Aroldo Sharma Referring Unavailable Matheus, Albert Chi Primary Care Unavailable Matheus, Albert Chi Attending Unavailable Matheus, Albert Chi Primary Care Unavailable Matheus, Albert Chi Referring Unavailable PROBLEMS PROBLEMS DATE TYPE CONDITION / CODE ATTENDING STATUS SOURCE 07/23/2018 Unknown E11.622 - Type 2 Oleghe, Active [place] diabetes mellitus [facility] with other skin Hospital ulcer / Repository E11.622(ICD-10) 04/01/2018 Unknown E11.9 - Type 2 Matheus, Albert Chi Active [place] diabetes mellitus Community without Hospital complications / Repository E11.9(ICD-10) 04/01/2018 Unknown E55.9 - Vitamin D Matheus, Albert Chi Active [place] deficiency, Community unspecified / Hospital E55.9(ICD-10) Repository 01/19/2018 Unknown D50.9 - Iron Matheus, Albert Chi Active [place] deficiency anemia, Community unspecified / Hospital D50.9(ICD-10) Repository 02/05/2018 Unknown F11.20 - Opioid Basali, Ayman Active [place] dependence, Community uncomplicated / Hospital F11.20(ICD-10) Repository 11/06/2017 Unknown I34.2 - MoodispaImer hayes Active [place] Nonrheumatic mitral Community (valve) stenosis / Hospital I34.2(ICD-10) Repository 11/06/2017 Unknown 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, 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[place] secondary pulmonary Community hypertension / Hospital I27.29(ICD-10) Repository 12/04/2017 Unknown I35.0 - Moodispaabigail, 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[place] Nonrheumatic aortic Community (valve) stenosis / Hospital I35.0(ICD-10) Repository 10/20/2017 Unknown I10 - Essential Moodispaabigail, 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[place] (primary) Community hypertension / Hospital I10(ICD-10) Repository PROCEDURES PROCEDURES No Procedure Records FoundRESULTS RESULTS WOUND CTR HISTORY Observed: 07/23/2018 Status: F Source: [place] AND PHYSICAL 4:30 PM [facility] REPOSITORY [facility] Wound [facility]aling Center [address] [place] [address] Wound Ctr History AND Physical 07/23/18 1137 MR#: [id number] Acct: [id number] Name: GARCÍA BURROWS Rep #: [id number] : 1950 67 From: Jillian Red MD PCP: Matheus BLACK,Albert Chi Status: REG RCR Y Location: (1) Sacral decubitus ulcer, stage III Status: Chronic Current Visit: Yes Code(s): L89.153 - Pressure ulcer of sacral region, stage 3 (2) Ulcer of back Status: Acute Current Visit: Yes Code(s): L98.429 - Non- pressure chronic ulcer of back with unspecified severity (3) Cellulitis of left lower extremity Status: Acute Current Visit: Yes Code(s): L03.116 - Cellulitis of left lower limb (4) Lower extremity edema Status: Chronic Current Visit: Yes Code(s): R60.0 - Localized edema (5) Type 2 diabetes mellitus without complications Status: Chronic Current Visit: No Code(s): E11.9 - Type 2 diabetes mellitus without complications (6) Ulcer of right lower extremity with fat layer exposed Status: Chronic Current Visit: No Code(s): L97.912 - Non- pressure chronic ulcer of unspecified part of right lower leg with fat layer exposed History of Present Illness Chief Complaint: non healing right lower leg ulcer, mid back ulcer and left lower extremity redness and pain. History of Wound: Ms. Burrows is a 67-year-old with past medical history as documented who had previously been seeing Dr. Sharma here at the wound center for nonhealing right lower extremity ulcer and is now a [facility] care [facility] due to several ulcers above the knee. 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 She has had some dressing done by the care home without any significant improvement. She also has a mid back ulcer. She denies any known precipitating factor or when exactly started. She is noted to have increased redness, warmth and swelling of the left lower extremity. She denies chills, fever all otherwise feeling of unwell. She was hospitalized recently. Past Medical History Past Medical History: Chronic Problems (Last Updated 07/19/18 @ 08:25 by Ras Patterson MD) Sacral decubitus ulcer, stage III (Chronic) Ulcer of right lower extremity with fat layer exposed (Chronic) Type 2 diabetes mellitus without complications (Chronic) PVD (peripheral vascular disease) (Chronic) Lower extremity edema (Chronic) Delayed wound healing (Chronic) Neuropathic pain (Chronic) Asthma (Chronic) Other secondary pulmonary hypertension (Chronic) Murmur, cardiac (Chronic) Surgical History: no surgical history Allergies/Adverse Reactions: Allergies lisinopril Adverse Reaction (Intermediate, Verified 04/03/18 12:36) Unknown penicillin G Adverse Reaction (Intermediate, Verified 04/03/18 12:36) Unknown exenatide [From Byetta] Adverse Reaction (Unknown, Verified 04/03/18 12:36) Unknown Home Medications: Ambulatory Orders Medication Instructions Recorded RX: Aspirin [Aspirin, Baby] 81 mg PO DAILY@0800 03/24/15 - Family History Maternal Family History: Family History (Last Reviewed 07/19/18 @ 06:56 by Britton Brayn MD) Sister CAD (coronary artery disease) Hx of CABG No pertinent history Paternal Family History: Family History (Last Reviewed 07/19/18 @ 06:56 by Britton Bryan MD) Sister CAD (coronary artery disease) Hx of CABG No pertinent history Smoking Status: Former smoker Review of Systems Constitutional: Denies: Anorexia, Chills, Fever Eyes: Denies: Blurred vision, Pain HEENT: Denies: Difficulty Swallowing Cardiovascular: Denies: Chest Pain, Chest Tightness Respiratory: Denies: Hemoptysis Gastrointestinal: Denies: Abdominal Pain, Hematemesis, Vomiting - Physical Exam Vital Signs Temp Pulse Resp BP 97.8 F 86 18 98/52 L 07/23/18 10:27 07/23/18 10:27 07/23/18 10:27 07/23/18 10:27 General: Alert, Oriented x3, Cooperative, No apparent distress HEENT: Atraumatic, Normocephalic Oral: Moist Mucosa Neck: Supple Lungs: Normal air movement Cardiovascular: Regular rate, Regular Rhythm, Normal S1, Normal S2 Abdomen: Soft, Non Tender Extremities: No cyanosis, Edema Skin: Ulcer/ Wound Wound Measurements and Assessment WC - Nurse 1 - General Ulcer Measurement Start: 07/09/18 10:15 Freq: Status: Active Protocol: Activity Type Activity Date Activity User E-Sign Co-Sign Detail Recorded Client Recorded Date Recorded By Document 07/23/18 10:27 [id number] 07/23/18 10:44 Wound Center Nurse 1 [Ulcer Assessment] #8 RIGHT MID BACK/RIB -Combined with other wound No -Current Size (cm) - Length 1 -Current Size (cm) - Width 0.8 WC - Nurse 2 - General Ulcer CM Notes Start: 07/09/18 10:15 Freq: Status: Active Protocol: Activity Type Activity Date Activity User E-Sign Co-Sign Detail Recorded Client Recorded Date Recorded By Document 07/23/18 11:05 MW [id number] 07/23/18 11:21 MW Wound Center Nurse 2 [Procedure/Treatment] #8 RIGHT MID BACK/RIB -Time 11:06 -Correct Patient Yes -Correct Side, Site, Position Yes -Correct Procedure Yes Musculoskeletal: No Muscle Wasting Neurological: Cranial nerves II-XII grossly intact Psych/Mental Status: Normal Affect Debridement Note Post-Debridement Measurements/Treatment WC - Nurse 2 - General Ulcer CM Notes Start: 07/09/18 10:15 Freq: Status: Active Protocol: Activity Type Activity Date Activity User E-Sign Co-Sign Detail Recorded Client Recorded Date Recorded By Wound debrided: Sacral Wound Grade/Stage: Stage III Type of Debridement: Excisional debridement Anesthesia Used: 4% Lidocaine Solution Depth: Down to and including healthy tissue, in the subcutaneous layer Percentage of wound debrided: 100 Instrument Used: 5mm curette Tissue Removed: Slough and devitalized tissue Severity: Fat Layer Exposed Amount of bleeding with debridement: Mild Bleeding Controlled with: Pressure Patient tolerated procedure well - Additional Wound Wound debrided: Mid back Wound Grade/Stage: Stage II Type of Debridement: Excisional debridement Anesthesia Used: 4% Lidocaine Solution Depth: Down to and including healthy tissue Percentage of wound debrided: 100 Instrument Used: 3mm curette Tissue Removed: Slough and devitalized tissue Severity: Fat Layer Exposed Amount of bleeding with debridement: Mild Bleeding Controlled with: Pressure Patient tolerated procedure: Patient tolerated procedure well - Additional Wound Wound debrided: Right superior barrientos Wound Grade/Stage: Stage II Type of Debridement: Excisional debridement Anesthesia Used: 4% Lidocaine Solution Depth: Down to and including healthy tissue, in the subcutaneous layer Percentage of wound debrided: 100 Instrument Used: 3mm curette Tissue Removed: Slough and devitalized tissue Severity: Limited To Skin Breakdown Amount of bleeding with debridement: Mild Bleeding Controlled with: Pressure Patient tolerated procedure: Patient tolerated procedure well - Additional Wound Wound debrided: Right barrientos Wound Grade/Stage: Stage II Type of Debridement: Excisional debridement Anesthesia Used: 4% Lidocaine Solution Depth: Down to and including healthy tissue, in the subcutaneous layer Percentage of wound debrided: 100 Instrument Used: 3mm curette Tissue Removed: Slough and devitalized tissue Severity: Fat Layer Exposed Amount of bleeding with debridement: Mild Bleeding Controlled with: Pressure Patient tolerated procedure: Patient tolerated procedure well Assessment/Plan Active Problems (Last Updated 07/19/18 @ 08:25 by Ras Patterson MD) Sacral decubitus ulcer, stage III (Chronic) Ulcer of back (Acute) Cellulitis of left lower extremity (Acute) Lower extremity edema (Chronic) Assessment: Same as above. Plan: Debridement of all ulcers done as documented above. Procedure was well-tolerated. Santyl to sacral ulcer and Fibracol to all other ulcers. Change daily. Left lower extremity appears cellulitic. Will start on Keflex and doxycycline. She was however advised to go to the emergency room if she notes worsening lower extremity pain, redness, swelling or feeling of unwell. Continue increased protein intake. Optimal blood sugar control. 3M wraps for edema management. 3M wraps to her right lower extremity and W to be to the left. Advised to elevate lower extremities when seated in bed. She was advised to call with any further questions or concerns. This note was generated with [employer] software. It may contain incorrect words, spelling, and punctuation that were not noted in checking the note before signing. 07/23/18 1630 <Electronically signed by Jillian Red MD> Date Jillian Red MD CC: Signed 12 LEAD ELECTROCARDIOGRAM Observed: 07/21/2018 Status: F Source: [place] 4:39 PM [facility] [place] Cardiovascular [place] [address] 12 Lead EKG 07/18/18 1812 MR#: [id number] Acct: [id number] Name: SIMEONGARCÍA Jovanni Rep #: [id number] : 1950 67 From: Kal Rucker MD Attending Dr: José Miguel Brady MD Status: DIS IN Ordering Dr: Jose Conrad MD Date: 07/18/18 Location: [facility] Sex: F C Admitted: 07/18/18 Test Reason : NEURO S/SX Blood Pressure : / mmHG Vent. Rate : 109 BPM Atrial Rate : 109 BPM P-R Int : 126 ms QRS Dur : 074 ms QT Int : 416 ms P-R-T Axes : 013 011 134 degrees QTc Int : 560 ms Sinus tachycardia with Premature atrial complexes Nonspecific T wave abnormality Abnormal ECG Confirmed by KAL RUCKER MD ([id number]), editorial cartoonist MICHAEL ALFORD ([id number]) on 07/21/2018 4:39:07 PM Referred By: Britton Bryan Confirmed By:KAL RUCKER MD 07/21/18 1639 Date Kal Rucekr MD CC: José Miguel Brady MD; Jose Conrad MD; Britton Bryan MD; Albert House MD Signed DISCHARGE SUMMARY Observed: 07/21/2018 Status: F Source: [place] 11:15 AM [facility] Medical Records Department [address] [place] [address] Discharge Summary 07/21/18 1112 MR#: [id number] Acct: [id number] Name: GARCÍA BURROWS Rep #: [id number] : 1950 67 From: José Miguel Brady MD PCP: Albert House MD, Chi Status: ADM IN Y Location: [place] [id number] Discharge Date and Diagnosis - Problem List Patient Problems: Active and Suspected Problems (Last Updated 07/19/18 @ 08:25 by Ras aPtterson MD) Sepsis (Acute) Acute cystitis (Acute) Decubitus ulcer (Acute) Date of Admission: 07/18/18 Date of Discharge: 07/21/18 - Primary Discharge Diagnosis Active and Suspected Problems (Last Updated 07/19/18 @ 08:25 by Ras Patterson MD) Sepsis (Acute) Acute cystitis (Acute) Decubitus ulcer (Acute) - Secondary Discharge Diagnosis Chronic Problems (Last Updated 07/19/18 @ 08:25 by Ras Patterson MD) Ulcer of right lower extremity with fat layer exposed (Chronic) Type 2 diabetes mellitus without complications (Chronic) PVD (peripheral vascular disease) (Chronic) Lower extremity edema (Chronic) Delayed wound healing (Chronic) Neuropathic pain (Chronic) Asthma (Chronic) Other secondary pulmonary hypertension (Chronic) Murmur, cardiac (Chronic) Hospital Course and Treatment Imaging Results: Clinical Impression(s) from Imaging Studies Brain CT 07/18/18 18:10 IMPRESSION: 1. No acute findings. 2. Microvascular ischemia. Atrophy. Dr. Machado discussed the findings with Dr. Conrad at 6:35 PM. N.B. : The above information has been verbally conveyed by Martha Machado MD to Dr. Jose Conrad MD, on 07/18/2018 18:39:31 (ET). Electronically Signed: Martha Machado MD at 18:37 EST Tel , Service support , Chest X-Ray 07/18/18 18:37 IMPRESSION: Low volume inspiration with cardiomegaly and atelectasis. No acute abnormality. Electronically Signed: Balwinder Bermudez MD at 19:25 EST , Service support , Brain MRI 07/20/18 08:29 IMPRESSION: No evidence of infarct or hemorrhage. Microangiopathic changes as described. Electronically Signed: Lawrence Toledo MD at 10:03 EST Tel , Service support , Microbiology 07/19/18 12:35 Urine, Catheterized Urine Culture - Final Presumptive E. coli GPC Poss Enterococcus sp 07/18/18 20:00 Blood Culture (Wb) - Anticubital Right Blood Culture - Preliminary No growth in 48 hours. 07/18/18 19:45 Blood Culture (Wb) - Anticubital Right Blood Culture - Preliminary No growth in 48 hours. 07/19/18 12:35 Stool C. difficile DNA Amplification - Final Consultations 07/18/18 22:56 Consult: Onc/Wound/lock master Routine Comment: Reason for Consult:: Decubitus ulcer Operations: None Summary of Care Provided: Patient is a 67-year-old lady with multiple comorbidities including chronic decubitus ulcer involving the coccyx admitted with right-sided weakness and left facial droop. Patient was also found to have sepsis secondary to acute cystitis 1. Transient ischemic attack acute CVA was ruled out with imaging studies with MRI 2. Sepsis secondary to acute cystitis patient E. coli. Patient was initially managed with Rocephin discharged on ciprofloxacin 3. Decubitus ulcer involving the coccyx consult was placed to wound care nurse 4. Chronic nonhealing ulcer involving the right leg patient requested consultation with Dr. Sharma with podiatry consult placed 5. Diabetes mellitus type 2 did continue with home regimen in addition to Accu-Cheks before meals and at bedtime with sliding scale coverage 6. Dyslipidemia-patient is on statin therapy, continued at home dose 7. Obesity with BMI of 31.9 8. Peripheral vascular disease 9. GERD on PPI 10. Diabetic neuropathy patient is on gabapentin 11. Depression patient is on SSRI 12. Chronic diarrhea C. difficile was ruled out with a negative C. difficile assay. Patient was treated symptomatically with Imodium 13. Physical deconditioning requested for PT OT and social worker clinical to assist with discharge planning the patient was discharged to halfway facility once insurance preset education was obtained 14. DVT prophylaxis SC heparin Patient Problems: Active and Suspected Problems (Last Updated 07/19/18 @ 08:25 by Ras Patterson MD) Sepsis (Acute) Acute cystitis (Acute) Decubitus ulcer (Acute) Subjective: GENERAL: cooperative HEENT: Atraumatic; EYES; Anicteric, NECK; supple, normal thyroid, RESPIRATORY: Diminished to auscultation bilaterally, CARDIOVASCULAR: Regular S1 S2, GI: soft, non-tender, normoactive bowel sounds, : No Renal angle tenderness; EXTREMITIES: No edema, no clubbing, no cyanosis. - Physical Exam Vital Signs Temp Pulse Resp BP Pulse Ox 98.8 F 96 17 140/70 H 94 07/21/18 08:25 07/21/18 08:25 07/21/18 08:25 07/21/18 08:25 07/21/18 08:35 Oxygen Flow Rate (L/min) 2 Oxygen Delivery Method Nasal Cannula Weight: 84.4 kg Body Mass Index (BMI) 31.9 Finger Stick Blood Glucose 148 Intake and Output for Last 24 Hours Intake Total 1429.4 / 1429.4 985 / 985 120 / 120 Output Total 1075 / 1075 2180 / 2180 700 / 700 Balance 354.4 / 354.4 -1195 / -1195 -580 / -580 Microbiology Past 72 Hours 07/19/18 12:35 Urine Culture - Final Laboratory Tests Past 24 Hrs WBC 6.6 RBC 3.50 L Hgb 10.7 L Hct 34.1 L MCV 97.4 MCH 30.6 POC Glucose POC Glucose 130 H Discharge Diet: Low fat/ Low Cholesterol Home Medications: Medications to take at Discharge Aspirin [Aspirin, Baby] 81 mg PO DAILY@0800 03/24/15 Escitalopram Oxalate [Lexapro] 10 mg PO DAILY 03/24/15 Lisinopril [Zestril] 5 mg PO DAILY 03/24/15 Montelukast [Singulair] 10 mg PO DAILY 03/24/15 Multivitamins,Ther W-Minerals [Multivitamin With Minerals] 1 tab PO DAILY 03/24/15 Omeprazole [Prilosec] 40 mg PO DAILY 03/24/15 Pravastatin [Pravachol] 20 mg PO QHS 03/24/15 Cholecalciferol (VIT D3) [Vitamin D3] 1,000 unit PO DAILY 11/22/16 gabapentin 300 mg capsule 600 mg PO QHS cap 10/20/17 polysaccharide iron complex 150 mg iron capsule 150 mg PO QDAY cap 10/20/17 furosemide 20 mg tablet 20 mg PO QDAY #30 tab 11/11/17 Oxybutynin Chloride [Ditropan Xl] 10 mg PO DAILY 03/30/18 Acetaminophen [Tylenol Tablet] 650 mg PO Q6H PRN PRN tablet 07/21/18 Ciprofloxacin [Cipro] 500 mg PO BID #10 tab 07/21/18 Lactobacillus Acidophilus [Acidophilus] 1 tab PO DAILY #30 tab 07/21/18 Loperamide [Imodium] 2 mg PO Q4H PRN PRN #0 capsule 07/21/18 Magnesium Hydroxide [Milk Of Magnesia] 30 ml PO DAILY PRN udc 07/21/18 Menthol/Lanolin/Calamine/Znox [Calmoseptine Ointment] 1 applic TOPICAL BID tube 07/21/18 Pilocarpine HCl 5 mg PO TID #0 07/21/18 Following Prescrptions Were Given to Patient: Ciprofloxacin [Cipro] 500 mg PO BID #10 tab Lactobacillus Acidophilus [Acidophilus] 1 tab PO DAILY #30 tab Primary Care Physician: Albert House Chi, MD [Primary Care Provider] - Disposition: [facility] Minutes spent on discharge:: 45 Patient Condition:: Stable Medical Necessity - Tobacco Use Smoking Status: Former smoker Tobacco Use: Cigarettes Meaningful Use Info Meaningful Use Diagnoses (Choose all that apply): None applicable Code Visit Inpatient E AND M: 07464 Disch Hosp 07/21/18 1115 <Electronically signed by José Miguel Brady MD> Date José Miguel Brady MD Cosigner Signature (if applicable): Date CC: José Miguel Brady MD; Albert House MD Signed TRANSFER TO EXTENDED Observed: 07/21/2018 Status: F Source: [facility] 11:08 AM [facility] [place] [facility] Medical Records Department [address] [place] [address] Transfer to Extended Care MR#: [id number] Acct: [id number] Name: GARCÍA BURROWS Rep #: [id number] : 1950 67 From: José Miguel Brady MD PCP: Albert House MD, Chi Status: ADM IN GARCÍA BURROWS (Patient) (Health Ins. Claim No.) (Day of Discharge to Facility) Certification of patient admission REQUIRED AT TIME OF ADMISSION. I CERTIFY THAT POST-HOSPITAL ECF SERVICES ARE REQUIRED TO BE GIVEN ON AN IN-PATIENT BASIS BECAUSE OF THE ABOVE NAMED PATIENT'S NEED FOR HALFWAY CARE ON A CONTINUING BASIS FOR THE CONDITION(S) FOR WHICH HE/SHE WAS RECEIVING IN-PATIENT HOSPITAL SERVICES PRIOR TO HIS/HER TRANSFER TO THE [facility]. 07/21/181107 <Electronically signed by José Miguel Brady MD> Date José Miguel Brady MD - Diet 07/19/18 01:08 Diet: Cardiac: Carb-Controlled Food consistency:: Regular Liquid Consistency:: Regular/Thin Is pt able to select menu?: Yes Diet Comments: Supervision; reduced bolus volumes, seated at 90 degrees - Routine Orders/Code Status Code Status: Full Code - Wound(s) Coccyx Wound Type: Pressure Injury Right Lateral Back Wound Type: Pressure Injury Right Forearm Wound Type: Puncture RLE Wound Type: Stasis Ulcer Dressing Change: unnaboot sacrum Wound Type: Pressure Injury Dressing Change: mepilex - Therapies Physical Therapy: Eval and Treat Occupational Therapy: Eval and Treat Speech Therapy: Eval and Treat - Allergies/Procedures Done in Hospital Allergies/Adverse Reactions: Allergies lisinopril Adverse Reaction (Intermediate, Verified 04/03/18 12:36) Unknown penicillin G Adverse Reaction (Intermediate, Verified 04/03/18 12:36) Unknown exenatide [From Byetta] Adverse Reaction (Unknown, Verified 04/03/18 12:36) Unknown - Type of Care/Length of Stay Estimated LOS: Convalescent Care Less Than 30 days Type of Care Needed: Skilled Rehab Potential: Good Prognosis: Good - Additional Orders/Day of Discharge Day of Discharge: 07/21/18 - Dietary and Speech Recommendations Dietitian Recommendations/Changes: Rec addition of LEYLA to diet as ordered - Follow Up Care Primary Care Physician: Albert House Chi, MD [Primary Care Provider] - 07/21/181107 <Electronically signed by José Miguel Brady MD> Date José Miguel Brady MD CC: Gallo Hogan DPM; Albert House MD Signed BASIC METABOLIC Collected: 07/21/2018 Status: F Source: [facility] PROFILE (BMP) 5:05 AM [facility] [place] TYPE CODE TESTS RESULT OUT OF RANGE REFERENCE UNITS LAB L501.0100 74-106 mg/dL Normal GLU 100 Result Comment: Fasting Glucose result from 100 to 125 mg/dL suggests IMPAIRED HOMEOSTASIS per A.D.A. criteria. Please note revised GLUCOSE reference range effective 2017. LAB L501.1000 7-18 mg/dL Normal BUN 16 LAB L501.1100 0.55-1.02 mg/dL Low CREAT,SERUM 0.51 Result Comment: The validity of the calculated GFR AND GFRAA in patients over 70 years has not been determined. Clinical correlation is essential. LAB L501.1110 >60 mL/min Normal EST GFR 128 Result Comment: Non- GFR Calc LAB L501.1115 >60 mL/min Normal EST GFR - AA 155 Result Comment: GFR Calc LAB L501.1255 ml/min Normal Estimated CRCL 45.85 LAB L501.1300 10-20 RATIO High BUN/CRE 31.6 LAB L501.2200 8.5-10 mg/dL Low .1 CA 7.1 LAB L501.5300 136-14 mmol/L High 5 NA 146 LAB L501.5600 3.5-5. mmol/L Normal 1 K 4.0 LAB L501.5900 98-107 mmol/L Normal CL 107 LAB L501.6100 21.0-3 mmol/L High 2.0 CO2 33.0 LAB L501.6200 5-15 Normal GAP 6 Performed By: #### L500.2500, L501.5200 #### [facility] [address] [place], [place], [address] MAGNESIUM Collected: 07/21/2018 Status: F Source: [facility] 5:05 AM [facility] [place] [facility] TYPE CODE TESTS RESULT OUT OF RANGE REFERENCE UNITS LAB L501.5200 1.6-2.6 mg/dL Normal MG 1.6 Performed By: #### L500.2500, L501.5200 #### [facility] [address] [place], [place], [address] CBC-COMPLETE BLOOD CNT Collected: 07/21/2018 Status: F Source: [facility] NO DIFF 5:05 AM [facility] [place] [facility] TYPE CODE TESTS RESULT OUT OF RANGE REFERENCE UNITS LAB L100.1000 4.4-11.0 K/mm3 Normal WBC 6.6 LAB L100.1200 4.2-5.4 M/mm3 Low RBC 3.50 LAB L100.1300 12.0-15.0 g/dl Low HGB 10.7 LAB L100.1400 37-47 % Low HCT 34.1 LAB L100.1500 81-99 fL Normal MCV 97.4 LAB L100.1600 27.0-32.0 pg Normal MCH 30.6 LAB L100.1700 32-36 g/gl Low MCHC 31.4 LAB L100.1810 11.6-14.6 % High RDW CV 16.9 LAB L100.1820 35.1-43.9 fl High RDW SD 57.3 LAB L100.1900 150-450 K/mm3 Low PLT 115 LAB L100.2000 6.2-12.0 fl Normal MPV 11.7 Performed By: #### L100.0500 #### [facility] [address] [facility] [place], [address] CONSULTATION Observed: 07/20/2018 Status: F Source: [place] 9:54 PM [facility] [place] [facility] Medical Records Department [address] [place] [address] Consultation 07/20/18 1432 MR#: [id number] Acct: [id number] Name: GARCÍA BURROWS Rep #: [id number] : 1950 67 From: Gallo Hogan DPM PCP: Albert House MD, Chi Status: ADM IN Y Location: [facility] [id number] Reason for Consult Date of Consultation: 07/20/18 Reason for Consultation: Right lower extremity ulceration History of Present Illness: The patient is a 67 year old female who has right lower extremity ulceration was seen today per consult request by the medicine team. Patient was admitted for right-sided weakness and left facial droop. Patient was also found to have sepsis secondary to acute cystitis. Patient follows with Dr. Sharma at the wound center, and was scheduled to have dressing changed this week, but not able to go as she is in the hospital. She has an unna boot on. She relates the ulcer is healing. She has no new foot/ankle or leg complaints. Past Medical History Past Medical History (Chronic Problems): Chronic Problems (Last Updated 07/19/18 @ 08:25 by Ras Patterson MD) Ulcer of right lower extremity with fat layer exposed (Chronic) Type 2 diabetes mellitus without complications (Chronic) PVD (peripheral vascular disease) (Chronic) Lower extremity edema (Chronic) Delayed wound healing (Chronic) Neuropathic pain (Chronic) Asthma (Chronic) Other secondary pulmonary hypertension (Chronic) Murmur, cardiac (Chronic) Medical History: Medical History (Last Updated 07/19/18 @ 08:25 by Ras Patterson MD) Other secondary pulmonary hypertension (Chronic) I27.29 Anemia D64.9 Depression F32.9 GERD (gastroesophageal reflux disease) K21.9 CHIDI (obstructive sleep apnea) G47.33 Type 2 diabetes mellitus E11.9 Hyperlipidemia E78.5 Hypertension I10 Nonrheumatic aortic (valve) stenosis I35.0 Nonrheumatic mitral (valve) stenosis I34.2 Diabetes (Inactive) E11.9 GERD (gastroesophageal reflux disease) (Inactive) K21.9 Hyperlipidemia (Inactive) E78.5 Mitral stenosis (Inactive) I05.0 Allergies lisinopril Adverse Reaction (Intermediate, Verified 04/03/18 12:36) Unknown penicillin G Adverse Reaction (Intermediate, Verified 04/03/18 12:36) Unknown exenatide [From Byetta] Adverse Reaction (Unknown, Verified 04/03/18 12:36) Unknown Home Medications: Ambulatory Orders Medication Instructions Recorded RX: Aspirin [Aspirin, Baby] 81 mg PO DAILY@0800 03/24/15 Surgical History: Surgical History (Last Updated 07/19/18 @ 08:25 by Ras Patterson MD) History of cholecystectomy Z98.890, Z90.49 History of total left knee replacement Z96.652 Surgical History: no surgical history Lives: With Family Smoking Status: Former smoker Tobacco Use: Cigarettes - *Family History Maternal Family History: Family History (Last Reviewed 07/19/18 @ 06:56 by Britton Bryan MD) Sister CAD (coronary artery disease) Hx of CABG History Items: No pertinent history Paternal Family History: Family History (Last Reviewed 07/19/18 @ 06:56 by rBitton Bryan MD) Sister CAD (coronary artery disease) Hx of CABG History Items: No pertinent history Review of Systems Constitutional: Denies: Chills, Fever Gastrointestinal: Denies: Nausea, Vomiting Skin: Reports: Wounds Patient Problems: Active and Suspected Problems (Last Updated 07/19/18 @ 08:25 by Ras Patterson MD) Sepsis (Acute) Acute cystitis (Acute) Decubitus ulcer (Acute) - Physical Exam General: Alert, Oriented x3, Cooperative, No apparent distress Extremities: No cyanosis, Capillary Refill Less than 3 Seconds, No Calf Tenderness, Peripheral Pulses Normal, - - Right leg with ulceration x 2 - first one measures 3.5cm x 2.4cm and 0.1cm in depth and the other is 1cm x 0.4cm and 0.1cm in depth - both down to the subcutaneous tissue layer, granular base and viable margins with no undermining, no evidence of infection, appears to be healing well. No open ulcers to the left lower extremity. There is no maloder, no necrosis, no fluctuance, no crepitus, no visible abscess bilateral lower extremity. Temperature is normal bilateral lower extremity, CFT < 2 seconds to all toes, and pedal pulses intact bilateral. Muscle strength decreased to the lower extremity, sensation intact. Chronic veneous insufficiency bilateral lower extremity, no calf pain bilateral lower extremity or evidence of DVT. Psych/Mental Status: Normal Affect, Appropriate, Alert and oriented to time, place, person, mood and affect Vital Signs Temp Pulse Resp BP Pulse Ox 98.8 F 79 16 129/85 H 95 07/20/18 09:45 07/20/18 11:00 07/20/18 09:45 07/20/18 09:45 07/20/18 09:45 Oxygen Flow Rate (L/min) 3 Oxygen Delivery Method Room Air Weight: 84.4 kg Body Mass Index (BMI) 31.9 Finger Stick Blood Glucose 148 Intake and Output for Last 24 Hours Intake Total 0 / 0 1429.4 / 1429.4 350 / 350 Output Total 0 / 0 1075 / 1075 680 / 680 Balance 0 / 0 354.4 / 354.4 -330 / -330 Microbiology Past 72 Hours 07/19/18 12:35 Urine Culture - Preliminary Urine, Catheterized Presumptive E. coli 07/19/18 12:35 C. difficile DNA Amplification - Final Stool Laboratory Tests Past 24 Hrs WBC 8.9 RBC 3.56 L Hgb 10.8 L Hct 34.6 L MCV 97.2 MCH 30.3 MCHC 31.2 L RDW 17.4 H POC Glucose POC Glucose 130 H 112 H 169 H POC Glucose 157 H Assessment/Plan All Active Problems (Last Updated 07/19/18 @ 08:25 by Ras Patterson MD) Sepsis (Acute) Acute cystitis (Acute) Decubitus ulcer (Acute) Venous insufficiency with right lower extremity ulcerations w/ no evidence of infection - healing Reviewed findings, ulcerations are healthy and viable with no evidence of infection right leg. Continue with local wound care - cleanse with normal saline solution, apply unna boot with overlying coban dressing - change weekly. Keep dressing clean, dry and intact until next dressing change. The dressing was changed today by the wound care team. Tubigrip compression stocking the left lower extremity. Elevate feet as much as possible. Continue to follow up with Dr. Sharma in the wound center next week, sooner if needed. Please call podiatry with any questions and/or concerns. Thank you for consultation. 07/20/182153 <Electronically signed by Gallo Hogan DPM> Date Gallo Hogan DPM Cosigner Signature (if applicable): Date CC: Gallo Hogan DPM; Britton Bryan MD; Albert House MD Signed ECHOCARDIOGRAM COMPLETE Observed: 07/20/2018 Status: F Source: [place] 5:52 PM [facility] [place] [facility] Cardiovascular [place] [address] Echo Complete 07/20/18 1021 MR#: [id number] Acct: [id number] Name: GARCÍA BURROWS Rep #: [id number] : 1950 67 From: Kal Rucker MD Attending Dr: José Miguel Brady MD Status: ADM IN Ordering Dr: Britton Bryan MD Date: 07/18/18 Location: [facility] Sex: F C Admitted: 07/18/18 Reason For Study: TIA/CVA Procedure This was a 2D Doppler, Color Flow transthoracic echocardiogram. Exam performed portable in patient room. Left Ventricle Normal LV size. Mild concentric left ventricular hypertrophy. Left ventricular systolic function is normal. The estimated ejection fraction is 60 %. Stage 1 diastolic dysfunction. No regional wall motion abnormalities noted. Atria The left atrium is moderately enlarged. Normal right atrium. Bubble contrast study negative for right to left interatrial shunt. Tricuspid Valve Normal tricuspid valve. Mild (1+) tricuspid valve insufficiency. Pulmonary artery systolic pressure is 34 mmHg. Aortic Valve Trisinus/trileaflet aortic valve. Mild diffuse aortic valve thickening. Pulmonic Valve Normal pulmonic valve. Great Vessels Normal aortic root. The pulmonary artery is normal size. Normal inferior vena cava. Pericardium/Pleural No pericardial effusion. Medication Performed a rapid injection of agitated mix of 9 cc saline and 1cc air to assess for atrial septal defect. MMode/2D Measurements AND Calculations LVIDd: 4.1 cm IVSd: 1.2 cm LVOT diam: 2.0 cm LVIDs: 2.4 cm LVPWd: 1.2 cm LVOT area: 3.2 cm2 RVDd: 3.2 cm FS: 42.6 % Ao root diam: 3.1 cm LAV(MOD-bp): 77.4 ml LA A4 area: 23.9 cm2 LAV(MOD-bp) Indexed: 41.2 ml/m2 LAV(MOD-sp2): 69.8 ml LAV(MOD-sp4): 76.9 ml LA dimension(2D): 4.8 cm RA A4 area: 10.1 cm2 Doppler Measurements AND Calculations MV E max debbie: 99.9 cm/sec Lat Peak E' Debbie: 5.6 cm/sec Med Peak E' Debbie: 4.8 cm/sec MV A max debbie: 144.1 cm/sec E/E' lat: 18.0 E/E' med: 20.6 MV E/A: 0.69 Ao V2 max: 283.4 cm/sec LV V1 max: 123.4 cm/sec SV(LVOT): 83.9 ml Ao max P.1 mmHg LV V1 max P.1 mmHg Ao V2 mean: 207.1 cm/sec LV V1 mean P.4 mmHg Ao mean P.7 mmHg LV V1 mean: 87.8 cm/sec Ao V2 VTI: 59.5 cm LV V1 VTI: 26.2 cm PARVIZ(I,D): 1.4 cm2 PARVIZ(V,D): 1.4 cm2 PA V2 max: 118.4 cm/sec TR max debbie: 273.0 cm/sec TR max P.9 mmHg Interpretation Summary Normal LV size. Mild concentric left ventricular hypertrophy. Left ventricular systolic function is normal. The estimated ejection fraction is 60 %. Stage 1 diastolic dysfunction. Mild (1+) tricuspid valve insufficiency. Pulmonary artery systolic pressure is 34 mmHg. Ordering Physician: Britton Bryan Referring Physician: Albert House Chi Performed By: Ember Andrews, RDCS, RVT 07/20/181751 Date Kal Rucker MD CC: José Miguel Brady MD; Britton Bryan MD; Albert House MD Date Dictated: 07/20/18 1021 Date Transcribed: 07/20/181751 Price Checker: Signed CAROTID DUPLEX Observed: 07/20/2018 Status: F Source: [place] ULTRASOUND 11:38 AM [facility] [place] [facility] Cardiovascular Services [address] [place] [address] Carotid Duplex Ultrasound 07/20/18 1052 MR#: [id number] Acct: [id number] Name: GARCÍA BURROWS Rep #: [id number] : 1950 67 From: Philippe Nelson MD Attending Dr: José Miguel Brady MD Status: ADM IN Ordering Dr: Britton Bryan MD Date: 07/18/18 Location: [facility] Sex: F C Admitted: 07/18/18 Reason For Study: TIA Rt. Velocities/BP Lt. Velocities/BP Prox CCA 62.1/10.6 cm/sec. Prox CCA 80.9/14.7 cm/sec. Mid CCA 51.5/18.9 cm/sec. Mid CCA 60.4/14.7 cm/sec. Dist CCA 47.9/13.4 cm/sec. Dist CCA 50.7/11 cm/sec. Prox ICA 38.5/11 cm/sec. Prox ICA 46.7/15.3 cm/sec. Mid ICA 73.9/24.6 cm/sec. Mid ICA 62.7/21.7 cm/sec. Dist ICA 57/24.2 cm/sec. Dist ICA 52.6/18.8 cm/sec. Rt. ICA/CCA = 1.43. Lt. ICA/CCA = 1.04. Prox ECA 63.9/7.04 cm/sec. Prox ECA 54.6/4.71 cm/sec. Rt. Vert. 46/11.8 cm/sec. Lt. Vert. 60.4/11.1 cm/sec. Right Extracranial There is intimal thickening but no significant atherosclerotic plaque noted in the right common carotid artery. There is heterogeneous, smooth atherosclerotic plaque noted in the right internal carotid artery. There is intimal thickening but no significant atherosclerotic plaque noted in the right external carotid artery. Antegrade flow is noted in the right vertebral artery. There is heterogeneous, irregular atherosclerotic plaque noted in the right bulb. Left Extracranial There is intimal thickening but no significant atherosclerotic plaque noted in the left common carotid artery. There is intimal thickening but no significant atherosclerotic plaque noted in the left internal carotid artery. There is intimal thickening but no significant atherosclerotic plaque noted in the left external carotid artery. Antegrade flow is noted in the left vertebral artery. There is heterogeneous, smooth atherosclerotic plaque noted in the left bulb. Procedure Carotid Duplex [id number]. Exam performed portable in patient room. Interpretation Summary Smooth calcific plague at the proximal right internal carotid with <50% stenosis. Widely patent left carotid bulb and proximal internal carotid with <50% stenosis Normal flow bilateral external carotids Patent and antegrade vertebrals bilaterally Ordering Physician: Britton Bryan Referring Physician: Albert House Chi Performed By: Taras RVT, Patito and Student 07/20/18 1137 Date Philippe Nelson MD CC: José Miguel Brady MD; Britton Bryan MD; Albert House MD Date Dictated: 07/20/18 1052 Date Transcribed: 07/20/18 1137 Price Checker: Signed BEDSIDE GLUCOSE Collected: 07/20/2018 Status: F Source: [facility] 11:22 AM [facility] [place] [facility] TYPE CODE TESTS RESULT OUT OF REFERENCE UNITS RANGE LAB L501.080 70-110 mg/dL High BEDSIDE GLU 130 Result Comment: MANAGEMENT OF PATIENT CARE PER NURSING PROTOCOL Performed By: #### L501.080 #### [facility] Point of Care [address] [place] [address] BEDSIDE GLUCOSE Collected: 07/20/2018 Status: F Source: [place] 6:56 AM [facility] [place] [facility] TYPE CODE TESTS RESULT OUT OF REFERENCE UNITS RANGE LAB L501.080 70-110 mg/dL High BEDSIDE GLU 112 Result Comment: MANAGEMENT OF PATIENT CARE PER NURSING PROTOCOL Performed By: #### L501.080 #### [facility] Point of Care [address] [place] [address] BASIC METABOLIC Collected: 07/20/2018 Status: F Source: [place] PROFILE (BMP) 4:56 AM [facility] [place] TYPE CODE TESTS RESULT OUT OF RANGE REFERENCE UNITS LAB L501.0100 74-106 mg/dL Normal GLU 97 Result Comment: Please note revised GLUCOSE reference range effective 2017. LAB L501.1000 7-18 mg/dL High BUN 23 LAB L501.1100 0.55-1.02 mg/dL Normal CREAT,SERUM 0.62 Result Comment: The validity of the calculated GFR AND GFRAA in patients over 70 years has not been determined. Clinical correlation is essential. LAB L501.1110 >60 mL/min Normal EST GFR 102 Result Comment: Non- GFR Calc LAB L501.1115 >60 mL/min Normal EST GFR - AA 124 Result Comment: GFR Calc LAB L501.1255 ml/min Normal Estimated CRCL 45.85 LAB L501.1300 10-20 RATIO High BUN/CRE 37.4 LAB L501.2200 8.5-10 mg/dL Low .1 CA 7.2 LAB L501.5300 136-14 mmol/L High 5 NA 146 LAB L501.5600 3.5-5. mmol/L Normal 1 K 4.1 LAB L501.5900 98-107 mmol/L High CL 113 LAB L501.6100 21.0-3 mmol/L Normal 2.0 CO2 25.0 LAB L501.6200 5-15 Normal GAP 8 Performed By: #### L500.2500 #### [facility] [address] [place], [address] CBC W/DIFF, AUTOMATED Collected: 07/20/2018 Status: F Source: [place] 4:56 AM [facility] [place] [facility] TYPE CODE TESTS RESULT OUT OF RANGE REFERENCE UNITS LAB L100.1000 4.4-11.0 K/mm3 Normal WBC 8.9 LAB L100.1200 4.2-5.4 M/mm3 Low RBC 3.56 LAB L100.1300 12.0-15.0 g/dl Low HGB 10.8 LAB L100.1400 37-47 % Low HCT 34.6 LAB L100.1500 81-99 fL Normal MCV 97.2 LAB L100.1600 27.0-32.0 pg Normal MCH 30.3 LAB L100.1700 32-36 g/gl Low MCHC 31.2 LAB L100.1810 11.6-14.6 % High RDW CV 17.4 LAB L100.1820 35.1-43.9 fl High RDW SD 61.4 LAB L100.1900 150-450 K/mm3 Low PLT 114 LAB L100.2000 6.2-12.0 fl Normal MPV 11.8 LAB L100.2100 47-70 % High NEUT% 78.2 LAB L100.2200 19-41 % Low LY% 12.9 LAB L100.2300 0-10 % Normal MONO% 7.9 LAB L100.2400 0-5 % Normal EO% 0.6 LAB L100.2500 0-1 % Normal BASO% 0.1 LAB L100.2550 0.0-0.9 % Normal IM GRAN % 0.300 Result Comment: IG% - Immature Granulocytes (promyelocytes, myelocytes and metamyelocytes) > 1% indicates that a LEFT SHIFT is Present. LAB L100.2620 2.0-7.7 X10 3/uL Normal Absolute Neut 6.9 LAB L100.2720 0.83-4.51 X10 3/ul Normal Absolute Lymph 1.14 Performed By: #### L100.0100 #### [facility] [address] [place], [address] BEDSIDE GLUCOSE Collected: 07/19/2018 Status: F Source: [place] 9:01 PM [facility] [place] [facility] TYPE CODE TESTS RESULT OUT OF REFERENCE UNITS RANGE LAB L501.080 70-110 mg/dL High BEDSIDE GLU 169 Result Comment: MANAGEMENT OF PATIENT CARE PER NURSING PROTOCOL Performed By: #### L501.080 #### [facility] Point of Care [address] [place] [address] BEDSIDE GLUCOSE Collected: 07/19/2018 Status: F Source: [place] 4:18 PM [facility] TYPE CODE TESTS RESULT OUT OF REFERENCE UNITS RANGE LAB L501.080 70-110 mg/dL High BEDSIDE GLU 157 Result Comment: MANAGEMENT OF PATIENT CARE PER NURSING PROTOCOL Performed By: #### L501.080 #### [facility] Point of Care [address] [place], [place] [address] Observed: 07/19/2018 Status: F Source: [facility] CDIFF (MOLECULAR) 12:35 PM [facility] [place] [facility] Is the patient receiving laxatives? N New/unexplained onset of 3 or more stools in past 24 hrs? Y Cdiff-Molecular Normal Reference Range = Negative C. Diff DNA Negative- No toxigenic C. Diff DNA Detected NAAT METHOD Testing was performed using nucleic acid amplification Performed By: #### M100.6796 #### [facility] [facility] [address] [place], [place], [address] Observed: 07/19/2018 Status: F Source: ANGEL CULTURE, URINE 12:35 PM [facility] [place] Urine Culture #2 Below infection level. ORGANISM 1: Presumptive E. coli [place] Count >100,000 ORGANISM 2: GPC Poss Enterococcus sp [place] Count 1000-10,000 Presumptive E. coli: REACTION Amoxacillin/Clavulanic Acid $ 4 S Ampicillin $ >=32 R Ampicillin/Sulbactam $ 16 I Cefazolin $ <=4 S Cefepime $ <=1 S Ceftriaxone $ <=1 S Ciprofloxacin $ <=0.25 S ESBL - Ertapenim $$$ <=0.5 S Gentamicin $ <=1 S Imipenem *NF <=0.25 S Levofloxacin $ <=0.12 S Nitrofurantoin $ <=16 S Piperacillin/Tazobactam $$ <=4 S Tobramycin $ <=1 S Trimethoprim/Sulfametho $ <=20 S (NF) indicates non-formulary drug at [facility]. Approval by Infectious Disease Specialist required before non-formulary drugs may be ordered and/or dispensed. Performed By: #### M100.0650 #### [facility] [address] [place], [address] BEDSIDE GLUCOSE Collected: 07/19/2018 Status: F Source: BRUMLEY 11:55 AM [facility] TYPE CODE TESTS RESULT OUT OF REFERENCE UNITS RANGE LAB L501.080 70-110 mg/dL High BEDSIDE GLU 123 Result Comment: MANAGEMENT OF PATIENT CARE PER NURSING PROTOCOL Performed By: #### L501.080 #### [facility] Point of Care [address] [facility] [place] [address] BRAIN WITHOUT Observed: 07/19/2018 Status: F Source: BRUMLEY CONTRAST 8:30 AM [facility] Imaging Services [address] [place] [address] Brain without Contrast MR#: [id number] Acct: [id number] Name: GARCÍA BURROWS Jovanni Rep #: [id number] : 1950 F 67 From: Lawrence Toledo MD PCP: Matheus BLACK,Albert Plascencia Status: ADM IN Study: Brain without Contrast Date of Exam: 07/20/18 Exam# [id number] Ordering Dr: Ras Patterson MD STUDY: MRI BRAIN WITHOUT CONTRAST REASON FOR EXAM: Female, 67 years old. Facial droop and weakness TECHNIQUE: Standardized multiplanar fat and water weighted pulse sequences were obtained. COMPARISON: None. FINDINGS: Normal size of the ventricles and extra-axial spaces for the patient's age. There are multiple white matter hyperintensities, distributed throughout the deep white matter tracts of the cerebral hemispheres, consistent with moderate chronic white matter ischemic changes. Normal bilateral basal ganglia. Normal thalami. There is no extra-axial fluid accumulation. Normal flow voids within the major intracranial circulation suggesting patency by spin echo criteria. Normal sella turcica, pituitary gland, infundibular stalk, optic chiasm and hypothalamus. Normal tectal plate and pineal gland. There are chronic white matter ischemic changes of the shanika. The midbrain and medulla are otherwise normal. Normal cerebellum. Normal basal cisterns. Normal bilateral temporal bones. Normal bilateral internal auditory canals. Bilateral lens replacements. Normal visualized paranasal sinuses. Normal calvarium and skull base. Normal visualized soft tissue structures. Normal visualized upper cervical spine. MRI/Brain without Contrast IMPRESSION: No evidence of infarct or hemorrhage. Microangiopathic changes as described. Electronically Signed: Lawrence Toledo MD at 10:03 EST Tel , Service support , CC: Ras Patterson; Albert House MD Price Checker: Signed HISTORY AND PHYSICAL Observed: 07/19/2018 Status: F Source: BRUMLEY EXAM 7:11 AM [facility] [place] Medical Records Department [address] [place] [address] History and Physical 07/18/182021 MR#: [id number] Acct: [id number] Name: GARCÍA BURROWS Rep #: [id number] : 1950 67 From: Britton Bryan MD PCP: Albert House MD, Chi Status: ADM IN Y Location: [place] [id number] Problem List (1) Sepsis Status: Acute (2) Acute cystitis Status: Acute (3) Decubitus ulcer Status: Acute (4) PVD (peripheral vascular disease) Status: Chronic (5) Hyperlipidemia Status: Chronic Qualifiers: Hyperlipidemia type: unspecified Qualified Code(s): E78.5 - Hyperlipidemia, unspecified (6) Murmur, cardiac Status: Chronic (7) Other secondary pulmonary hypertension Status: Chronic (8) Lower extremity edema Status: Chronic History of Present Illness Date of Admission: 07/18/18 Chief Complaint: weakness and facial droop The patient is a 67 year old F with a significant history of type 2 diabetes; hypertension; hyperlipidemia; and PVD who was brought to the emergency department because she was unable to get up from the bed and because of facial droop noticed by a family member. The paramedics were called and patient was brought to the emergency department. At the emergency department no facial droop was noticed. The last the patient was seen normal was a day before her presentation. Patient complains of painful urination and increased frequency in urination. At emergency department CT of the head was not remarkable for any acute disease. Her urinalysis was abnormal. Patient had a tachycardia and tachypnea for which reason patient was diagnosed with sepsis secondary to cystitis and started on Ceftriaxone. Family reported that patient alleged heaviness in bilateral arms whiles at emergency department. Patient was noted to have infiltration of IV fluids in right. Also emergency department doctor reported wound on patient's coccyx that family did not know of. Patient follows up with Dr. Sharma, podiatry for right leg wound which has an Unna boot on. Past Medical History Past Medical History (Chronic Problems): Chronic Problems (Last Reviewed 07/19/18 @ 07:04 by Britton Bryan MD) PVD (peripheral vascular disease) (Chronic) Lower extremity edema (Chronic) Nonrheumatic aortic (valve) stenosis (Chronic) Nonrheumatic mitral (valve) stenosis (Chronic) Hyperlipidemia (Chronic) Other secondary pulmonary hypertension (Chronic) Hypertension (Chronic) Murmur, cardiac (Chronic) Medical History: Medical History (Last Reviewed 07/19/18 @ 07:04 by Britton Bryan MD) Nonrheumatic aortic (valve) stenosis (Chronic) I35.0 Nonrheumatic mitral (valve) stenosis (Chronic) I34.2 Hyperlipidemia (Acute) E78.5 Other secondary pulmonary hypertension (Acute) I27.29 Hypertension (Chronic) I10 Murmur, cardiac (Acute) R01.1 Anemia D64.9 Asthma J45.909 Depression F32.9 GERD (gastroesophageal reflux disease) K21.9 Hypoxia R09.02 Left carotid bruit R09.89 Neuropathic pain M79.2 CHIDI (obstructive sleep apnea) G47.33 Type 2 diabetes mellitus E11.9 Vertigo R42 Anemia (Inactive) D64.9 Aortic stenosis (Inactive) I35.0 Asthma (Inactive) J45.909 Concussion (Inactive) S06.0X9A Depression (Inactive) F32.9 Diabetes (Inactive) E11.9 Diabetes (Inactive) E11.9 Fall with injury (Inactive) W19.XXXA Fracture of hip, left, closed (Inactive) S72.002A GERD (gastroesophageal reflux disease) (Inactive) K21.9 Hyperlipidemia (Inactive) E78.5 Hypoxia (Inactive) R09.02 Mitral stenosis (Inactive) I05.0 Nausea (Inactive) R11.0 Neuropathic pain (Inactive) CHIDI (obstructive sleep apnea) (Inactive) G47.33 Obstructive sleep apnea (Inactive) G47.33 Pneumococcal pneumonia (Inactive) J13 S/P ORIF (open reduction internal fixation) fracture (Inactive) Z96.7, Z87.81 Vertigo (Inactive) R42 Allergies lisinopril Adverse Reaction (Intermediate, Verified 04/03/18 12:36) Unknown penicillin G Adverse Reaction (Intermediate, Verified 04/03/18 12:36) Unknown exenatide [From Byetta] Adverse Reaction (Unknown, Verified 04/03/18 12:36) Unknown Home Medications: Ambulatory Orders Medication Instructions Recorded Surgical History: Surgical History (Last Reviewed 07/19/18 @ 06:55 by Britton Bryan MD) History of cholecystectomy Z98.890, Z90.49 History of hernia repair Z98.890, Z87.19 History of partial colectomy Z98.890, Z90.49 History of total left knee replacement Z96.652 Lives: With Family Smoking Status: Former smoker - *Family History Maternal Family History: Family History (Last Reviewed 07/19/18 @ 06:56 by Britton Bryan MD) Sister CAD (coronary artery disease) Hx of CABG History Items: No pertinent history Paternal Family History: Family History (Last Reviewed 07/19/18 @ 06:56 by Britton Bryan MD) Sister CAD (coronary artery disease) Hx of CABG History Items: No pertinent history Review of Systems Constitutional: Reports: Weakness. Denies: Chills, Fever HEENT: Denies: Head Aches, Sinus Congestion, Sinus Drainage Cardiovascular: Denies: Chest Pain, Palpitations Respiratory: Denies: Cough, Shortness of breath at rest, Sputum production Gastrointestinal: Denies: Abdominal Pain, Nausea, Vomiting Genitourinary: Reports: Dysuria, Frequency - Increase frequency Musculoskeletal: Denies: Joint Pain, Joint Tenderness Skin: Reports: Wounds - Wound on coccyx. Denies: Rash Neurological: Denies: Numbness, Tingling, Focal weakness Psychiatric: Denies: Anxiety, Depression, Homicidal Ideations, Suicidal Ideations Hematologic/ Lymphatic: Denies: Easy Bruising, Easy Bleeding VTE Information - Inpt Only VTE Present on Admission: No VTE Mechan Device Prophylaxis: None VTE Pharm Prophylaxis ordered?: Yes Patient Problems: Active and Suspected Problems (Last Reviewed 07/19/18 @ 07:04 by Britton Bryan MD) Sepsis (Acute) Acute cystitis (Acute) Decubitus ulcer (Acute) - Physical Exam General: Alert, Oriented x3, Cooperative HEENT: Atraumatic, PERRLA, EOMI, Normocephalic Neck: Supple, No JVD, Negative Carotid Bruits Lungs: Clear to auscultation, Normal air movement Cardiovascular: Regular rate, Normal S2, Murmur Abdomen: Bowel Sounds Present, Soft, Non Tender Extremities: Capillary Refill Less than 3 Seconds, Edema - Left leg edema 1-2+ pitting edema; right leg in Unna boots, Tenderness - Left leg Skin: - - Pale. Ulcer on coccyx. Ecchymosis on left elbow. Swelling on left arm from IV fluids. Musculoskeletal: No Muscle Wasting, - - Restricted range of motion of bilateral legs. Neurological: Neuro grossly intact, - Psych/Mental Status: Normal Affect, Appropriate Vital Signs Temp Pulse Resp BP Pulse Ox 98.2 F 93 17 104/60 92 07/18/18 18:09 07/18/18 19:34 07/18/18 19:34 07/18/18 19:34 07/18/18 19:34 Oxygen Flow Rate (L/min) 2 Oxygen Delivery Method Nasal Cannula Weight: 87.4 kg Body Mass Index (BMI) 35.2 Finger Stick Blood Glucose 148 Laboratory Tests Past 24 Hrs WBC 13.0 H RBC 3.91 L WBC RBC Hgb Hct MCV MCH Assessment/Plan All Active Problems (Last Reviewed 07/19/18 @ 07:04 by Britton Bryan MD) Ulcer of right lower extremity with fat layer exposed (Acute) Type 2 diabetes mellitus without complications (Acute) Delayed wound healing (Acute) Sepsis (Acute) Acute cystitis (Acute) Decubitus ulcer (Acute) The patient is a 67 year old F with a significant history of type 2 diabetes; hypertension; hyperlipidemia; and PVD who was brought to the emergency department because she was unable to get up from the bed and because of facial droop noticed by a family member; and also with tachypnea and tachycardia on presentation; and with abnormal urinalysis consistent with sepsis secondary to acute cystitis and probable TIA.. Sepsis due to acute cystitis On presentation patient meets SIRS criteria with a pulse rate of 93-114; respiratory rate of 21-22; as well as white blood count of 13K Her lactic acid was unremarkable Her creatinine was unremarkable We will continue patient on ceftriaxone. Blood cultures are pending Urine culture ordered Trend CBC and BMP Probable TIA CT of the head did not show any acute pathology -Check Hba1c, Lipid level Physical therapy, occupational therapy and speech therapy to work with patient. N.p.o. until bedside swallow eval. Daily aspirin. High intensity statin ordered Lipid profile and A1c ordered. Permissive hypertension. Control blood pressure with labetalol for systolic blood pressure of more than 220 or diastolic blood pressure of more than 120. -Permissive HTN for 24 hrs, shelter goal BP < 120/80 mmHg and goal Hba1c < 7% Carotid duplex ordered Echocardiogram ordered. Was on the floor nurses complain of NIH of 8 which increased to 13 but with no slurry speech or facial droop. Floor nurse reported weakness in all 4 extremities. Weakness was worse in right than left arm; also worse in left leg. Also nurse reported bilateral arm Ataxia . Nurse reported that patient was drowsy as this NIH was been done. Probably these symptoms are due to chronic weakness and lack of motivation. Consider MRI/MRA of head and neck Diabetes mellitus On presentation her blood glucose was within range. There are no hypoglycemic medication on patient med list. Trend BMP. Hypertension Her blood pressure was fairly stable on admission On home lisinopril and Lasix. Received IV fluids at emergency department. Would hold lisinopril at this time for permissive hypertension for probable TIA. Lasix to resume in a.m. Decubitus ulcer of coccyx Calmoseptine ordered Wound care consult. Right leg wound Unna boot in place. Patient to follow-up with Dr. Sharma outpatient. Left Leg swelling Continue Lasix. DVT Prophylaxis Subcutaneous heparin Code Visit OBSV E AND M: [id number] Initial observation care L3 07/19/18 0711 <Electronically signed by Britton Bryan MD> Date Britton Bryan MD Cosigner Signature: Date (if applicable) CC: Britton Bryan MD; Albert House MD Signed BEDSIDE GLUCOSE Collected: 07/19/2018 Status: F Source: ANGEL 6:54 AM [facility] TYPE CODE TESTS RESULT OUT OF REFERENCE UNITS RANGE LAB L501.080 70-110 mg/dL High BEDSIDE GLU 115 Result Comment: MANAGEMENT OF PATIENT CARE PER NURSING PROTOCOL Performed By: #### L501.080 #### [facility] Point of Care [facility] [address] [place], [place] [address] CBC-COMPLETE BLOOD CNT Collected: 07/19/2018 Status: F Source: ANGEL NO DIFF 5:44 AM [facility] TYPE CODE TESTS RESULT OUT OF RANGE REFERENCE UNITS LAB L100.1000 4.4-11.0 K/mm3 High WBC 12.0 LAB L100.1200 4.2-5.4 M/mm3 Low RBC 3.78 LAB L100.1300 12.0-15.0 g/dl Low HGB 11.5 LAB L100.1400 37-47 % Low HCT 36.3 LAB L100.1500 81-99 fL Normal MCV 96.0 LAB L100.1600 27.0-32.0 pg Normal MCH 30.4 LAB L100.1700 32-36 g/gl Low MCHC 31.7 LAB L100.1810 11.6-14.6 % High RDW CV 17.1 LAB L100.1820 35.1-43.9 fl High RDW SD 59.5 LAB L100.1900 150-450 K/mm3 Normal PLT 151 LAB L100.2000 6.2-12.0 fl High MPV 12.1 Performed By: #### L100.0500 #### [facility] [address] [place], [place], [address] BASIC METABOLIC Collected: 07/19/2018 Status: F Source: BRUMLEY PROFILE (BMP) 5:44 AM [facility] TYPE CODE TESTS RESULT OUT OF RANGE REFERENCE UNITS LAB L501.0100 74-106 mg/dL High GLU 119 Result Comment: Fasting Glucose result from 100 to 125 mg/dL suggests IMPAIRED HOMEOSTASIS per A.D.A. criteria. Please note revised GLUCOSE reference range effective 2017. LAB L501.1000 7-18 mg/dL High BUN 28 LAB L501.1100 0.55-1.02 mg/dL Normal CREAT,SERUM 0.68 Result Comment: The validity of the calculated GFR AND GFRAA in patients over 70 years has not been determined. Clinical correlation is essential. LAB L501.1110 >60 mL/min Normal EST GFR 91 Result Comment: Non- GFR Calc LAB L501.1115 >60 mL/min Normal EST GFR - AA 110 Result Comment: GFR Calc LAB L501.1255 ml/min Normal Estimated CRCL 45.85 LAB L501.1300 10-20 RATIO High BUN/CRE 41.1 LAB L501.2200 8.5-10 mg/dL Low .1 CA 7.3 LAB L501.5300 136-14 mmol/L High 5 NA 146 LAB L501.5600 3.5-5. mmol/L Low 1 K 3.3 LAB L501.5900 98-107 mmol/L High CL 111 LAB L501.6100 21.0-3 mmol/L Normal 2.0 CO2 28.0 LAB L501.6200 5-15 Normal GAP 7 Performed By: #### L500.2500, L500.4100 #### [facility] [address] [facility] [address] LIPID PROFILE Collected: 07/19/2018 Status: F Source: ANGEL 5:44 AM [facility] TYPE CODE TESTS RESULT OUT OF RANGE REFERENCE UNITS LAB L501.4900 200 mg/dL Normal CHOL 54 Result Comment: <200 mg/dL Desirable 200-240 mg/dL Borderline >240 mg/dL High Risk LAB L501.5000 mg/dL Normal TRIG 63 Result Comment: The drugs N-Acetylcysteine and Metamizole may falsely depress this assay. Serum Triglycerides Reference Interval Normal <150 mg/dL Borderline high 150 - 199 mg/dL High 200 - 499 mg/dL Very High > or = 500 mg/dL LAB L501.6400 mg/dL Normal HDL 46 Result Comment: The drugs N-Acetylcysteine and Metamizole may falsely depress this assay. Reference Range HDL <40 mg/dL Low HDL Cholesterol HDL >or= 60 mg/dL High HDL Cholesterol LAB L501.6500 0-130 mg/dL Low LDL -5 LAB L501.6600 5-40 mg/dL Normal VLDL 13 Performed By: #### L500.2500, L500.4100 #### [facility] [address] [facility] [address] BEDSIDE GLUCOSE Collected: 07/19/2018 Status: F Source: ANGEL 4:50 AM [facility] TYPE CODE TESTS RESULT OUT OF REFERENCE UNITS RANGE LAB L501.080 70-110 mg/dL High BEDSIDE GLU 128 Result Comment: MANAGEMENT OF PATIENT CARE PER NURSING PROTOCOL Performed By: #### L501.080 #### [facility] Point of Care [address] [facility] [place] [address] EMERGENCY DEPARTMENT Observed: 07/18/2018 Status: F Source: ANGEL SUMMARY 8:25 PM [facility] Medical Records Department [address] [place] [address] Emergency Department Summary 07/18/18 1814 MR#: [id number] Acct: [id number] Name: GARCÍA BURROWS #: [id number] : 1950 67 From: Jose Conrad MD PCP: Matheus BLACK,Albert Plascencia Status: REG ER - ER Visit Summary Date of Service: 07/18/18 Chief Complaint: Right-sided weakness, facial droop History of Present Illness: The patient is a 67 F who has right-sided weakness and left-sided facial droop. She was last seen normal yesterday. Family member saw her today and noticed the facial droop. Upon EMS arrival she had dysarthria because of this facial droop. She was unable to move her right arm. She has trouble moving her right leg because of a josé implanted in it. During her transport she seemed to improve. Patient complains that she is thirsty however she has been eating and drinking okay according to her. No history of stroke in the past. She does have a history of peripheral vascular disease. Physical Examination: Vital signs are reviewed. Patient is alert and oriented and answers all questions. HEENT exam reveals dry mucous memories. Heart is irregularly irregular without murmurs. Lungs are clear bilaterally. Abdomen soft nontender. She is alert and oriented to self and to place but does not know the year or how old she is. She has bilateral lower extremity weakness secondary to what was mentioned above. She has no facial droop or dysarthria. Her NIH stroke scale is 9. Get exam reveals a stage II decubitus ulcer. Test Results: EKG was sinus tachycardia with PACs. Nonspecific ST and T wave changes. CAT scan of the head reveals chronic findings. Chest x-ray reveals chronic findings as well. White blood cell count 13 INR 1.4. Chloride 109. Urinalysis reveals 50-100 white blood cells. Troponin 0 0.112. Lactate 1.1 Emergency Department Course and Treatment: Patient received IV fluids. I started her on Rocephin. I do not feel that this is a stroke. I do not feel she requires TPA. Patient will be admitted to the hospital for sepsis and UTI Treatment Plan: [] Disposition: Admit Impression: Sepsis, UTI, weakness This note was generated with Snapsheet dictation software. It may contain incorrect words, spelling, and punctuation that were not noted in review of the chart prior to signing ED Disposition - Plan for ED Patient: Chief Complaint: Neuro S/Sx Referrals: Albert House Chi, MD [Primary Care Provider] - What to do if you have Problems For any increased pain, shortness of breath, bleeding, nausea or vomiting, chest pain, or any unexpected problems, contact your Primary Care Provider. Call [facility] ([phone]) or report to the closest Emergency Room. Call 911 if necessary. 07/18/182024 <Electronically signed by Jose Conrad MD> Date Jose Conrad MD Cosigner Signature (If Indicated): Date CC: Albert House MD Observed: 07/18/2018 Status: F Source: ANGEL CULTURE, BLOOD (WB) 8:00 PM [facility] AEROBIC BOTTLE GRAM STAIN = GRAM POSITIVE COCCI DRAWN 07/18/18 AT [address] HOUSE NURSE LINE 07/22/18 0901 Opal Palm. Possible skin contamination, further Identification and sensitivity will be performed only by physician's request. ANAEROBIC BOTTLE NO GROWTH 5 DAYS. ORGANISM 1: Staphylococcus epidermidis Amount Growth Growth Performed By: #### M200.1000, M100.636 #### [facility] [address] [facility] [place], [address] Observed: 07/18/2018 Status: F Source: ANGEL BC GPC ID 8:00 PM [facility] GPC ID Staphylococcus sp. Staphylococcus epidermidis Enterococcus sp. Not Detected Streptococcus spp. Not Detected Listeria spp Not Detected Ivone/vanB Not Detected mecA mecA Resistance Marker Detected NAAT METHOD Testing was performed using nucleic acid amplification ORGANISM 1: Staphylococcus epidermidis ORGANISM 2: mecA Resistance Marker Performed By: #### M200.1000, M100.636 #### [facility] [address] [facility] [place], [address] LACTIC ACID Collected: 07/18/2018 Status: F Source: ANGEL 7:40 PM [facility] Order Comment: Yes/No query for Sepsis Lactate Rule Y TYPE CODE TESTS RESULT OUT OF RANGE REFERENCE UNITS LAB L503.6005 0.4-2.0 mmol/L Normal LACTIC ACID 1.1 Performed By: #### L503.6005 #### [facility] [address] [place], [address] PROTHROMBIN TIME W/INR Collected: 07/18/2018 Status: F Source: ANGEL 7:20 PM [facility] Order Comment: REDRAW. PREVIOUS SPECIMEN REJECTED DUE TO QNS. 07/18/181857 Lilliam Knott. TYPE CODE TESTS RESULT OUT OF RANGE REFERENCE UNITS LAB L300.4150 11.7-14.9 SECONDS High PROTIME 17.2 LAB L300.4200 Normal INR 1.4 Performed By: #### L300.3900, L300.4310 #### [facility] [address] [place], [address] PARTIAL THROMBOPLAST Collected: 07/18/2018 Status: F Source: BRUMLEY TIME 7:20 PM [facility] Order Comment: REDRAW. PREVIOUS SPECIMEN REJECTED DUE TO QNS. 07/18/181857 Lilliam Knott. TYPE CODE TESTS RESULT OUT OF RANGE REFERENCE UNITS LAB L300.4310 24.1-36.2 Seconds Normal PTT 30.5 Performed By: #### L300.3900, L300.4310 #### [facility] [address] [place], [address] HEMOGLOBIN A1C Collected: 07/18/2018 Status: F Source: BRUMLEY 6:42 PM [facility] TYPE CODE TESTS RESULT OUT OF RANGE REFERENCE UNITS LAB L501.9985 4.2-6.3 % Normal HGB A1C 4.4 Performed By: #### L501.9985 #### [facility] [address] [place], [address] CBC W/DIFF, AUTOMATED Collected: 07/18/2018 Status: F Source: ANGEL 6:40 PM [facility] [place] TYPE CODE TESTS RESULT OUT OF RANGE REFERENCE UNITS LAB L100.1000 4.4-11.0 K/mm3 High WBC 13.0 LAB L100.1200 4.2-5.4 M/mm3 Low RBC 3.91 LAB L100.1300 12.0-15.0 g/dl Normal HGB 12.0 LAB L100.1400 37-47 % Normal HCT 37.3 LAB L100.1500 81-99 fL Normal MCV 95.4 LAB L100.1600 27.0-32.0 pg Normal MCH 30.7 LAB L100.1700 32-36 g/gl Normal MCHC 32.2 LAB L100.1810 11.6-14.6 % High RDW CV 16.8 LAB L100.1820 35.1-43.9 fl High RDW SD 58.2 LAB L100.1900 150-450 K/mm3 Low PLT 144 LAB L100.2000 6.2-12.0 fl Normal MPV 11.2 LAB L100.2100 47-70 % High NEUT% 87.4 LAB L100.2200 19-41 % Low LY% 7.7 LAB L100.2300 0-10 % Normal MONO% 4.7 LAB L100.2400 0-5 % Normal EO% 0.0 LAB L100.2500 0-1 % Normal BASO% 0.1 LAB L100.2550 0.0-0.9 % Normal IM GRAN % 0.100 Result Comment: IG% - Immature Granulocytes (promyelocytes, myelocytes and metamyelocytes) > 1% indicates that a LEFT SHIFT is Present. LAB L100.2620 2.0-7.7 X10 3/uL High Absolute Neut 11.3 LAB L100.2720 0.83-4.51 X10 3/ul Normal Absolute Lymph 1.00 Performed By: #### L100.0100 #### [facility] [address] [place], [place], [id number] BASIC METABOLIC Collected: 07/18/2018 Status: F Source: ANGEL PROFILE (BMP) 6:40 PM [facility] Order Comment: 'TROP' Serial specimen #1, #2, #3, or #4: 1 TYPE CODE TESTS RESULT OUT OF RANGE REFERENCE UNITS LAB L501.0100 74-106 mg/dL High GLU 136 Result Comment: Fasting Glucose result greater than or equal to 126 mg/dL suggests DIABETES MELLITUS per A.D.A. criteria. Please note revised GLUCOSE reference range effective 2017. LAB L501.1000 7-18 mg/dL High BUN 29 LAB L501.1100 0.55-1.02 mg/dL Normal CREAT,SERUM 0.86 Result Comment: The validity of the calculated GFR AND GFRAA in patients over 70 years has not been determined. Clinical correlation is essential. LAB L501.1110 >60 mL/min Normal EST GFR 69 Result Comment: Non- GFR Calc LAB L501.1115 >60 mL/min Normal EST GFR - AA 84 Result Comment: GFR Calc LAB L501.1255 ml/min Normal Estimated CRCL 48.83 LAB L501.1300 10-20 RATIO High BUN/CRE 33.7 LAB L501.2200 8.5-10 mg/dL Low .1 CA 7.4 LAB L501.5300 136-14 mmol/L Normal 5 NA 144 LAB L501.5600 3.5-5. mmol/L Normal 1 K 3.5 LAB L501.5900 98-107 mmol/L High CL 109 LAB L501.6100 21.0-3 mmol/L Normal 2.0 CO2 28.0 LAB L501.6200 5-15 Normal GAP 7 Performed By: #### L500.2500, L501.4010 #### [facility] [address] [place], [address] TROPONIN-I Collected: 07/18/2018 Status: F Source: BRUMLEY 6:40 PM [facility] Order Comment: 'TROP' Serial specimen #1, #2, #3, or #4: 1 TYPE CODE TESTS RESULT OUT OF RANGE REFERENCE UNITS LAB L501.4010 <0.045 ng/mL High 0.112 TROPONIN-I Result Comment: TROPONIN-I EXPECTED VALUES <0.045 Negative 0.045 - 0.590 Consistent with Cardiac Damage > OR = 0.600 Critical Value Not every elevated troponin is indicative of TN. These values should be used with clinical judgement in examining the patient's clinical picture for diagnosis. To establish a diagnosis of TN versus myocardial injury, there must be a demonstrated rise and/or fall in the troponin values, in addition to ischemic symptoms, EKG changes, new regional wall motion abnormality, and/or angiographical evidence. PLEASE NOTE: REFERENCE RANGES EDITED 17 Performed By: #### L500.2500, L501.4010 #### [facility] [address] [place], [address] URINALYSIS, COMPLETE Collected: 07/18/2018 Status: F Source: BRUMLEY 6:30 PM [facility] Order Comment: Order Date: 07/18/18 How was Urine Obtained? CATHETER SPECIMEN TYPE CODE TESTS RESULT OUT OF RANGE REFERENCE UNITS LAB L400.3000 Yellow COLOR Normal Yellow LAB L400.3050 Clear Normal CLARITY Cloudy LAB L400.3200 Normal mg/dl Normal GLUCOSE, UR Normal LAB L400.3300 Negative mg/dL High BILIRUBIN URINE 1 Result Comment: COLOR OF URINE MAY AFFECT DIPSTICK RESULTS. LAB L400.3400 Negative mg/dl High KETONE UR 15 LAB L400.3465 1.002-1.030 Normal SP.GR. DIPSTX 1.020 LAB L400.3550 5.0 - 8.0 pH Normal UR 5.0 LAB L400.3600 Negative mg/dl High PROT DIPSTX 15 LAB L400.3700 Normal mg/dl High UROBILI 4 LAB L400.3750 Negative Normal NITRITE UR Negative LAB L400.3780 Negative /ul High OCCULT 50 BLOOD-UR LAB L400.3800 Negative /ul High LEUK ESTERASE 500 LAB L400.4050 0-5 /hpf Normal WBC 50-100 SEEN LAB L400.4100 0-5 /hpf Normal RBC-UA 5-10 SEEN LAB L400.4150 5-10 /hpf Normal SQUAM EPI 0-5 SEEN LAB L400.4300 None Seen /hpf Normal BACTERIA 3+ LAB L400.4350 <or=2+ /hpf Normal MUCUS, URINE 0 SEEN Performed By: #### L400.0001 #### [facility] [address] [place], [place], [address] BRAIN/HEAD WITHOUT Observed: 07/18/2018 Status: F Source: ANGEL CONTRAST 6:12 PM [facility] Imaging Services [address] [place] [address] Brain/Head without Contrast MR#: [id number] Acct: [id number] Name: GARCÍA BURROWS Rep #: [id number] : 1950 F 67 From: Martha Machado MD PCP: Matheus BLACK,Albert Plascencia Status: PRE ER Study: Brain/Head without Contrast Date of Exam: 07/18/18 Exam# [id number] Ordering Dr: Jose Conrad MD STUDY: CT BRAIN WITHOUT CONTRAST REASON FOR EXAM: Female, 67 years old. CVA, left facial droop and slurred speech. RADIATION DOSAGE (If Supplied By Facility): CTDIvol = ( 44.99 ) mGy, DLP = ( 779.24 ) mGycm TECHNIQUE: Transaxial CT imaging of the brain was performed without administration of intravenous contrast material. Individualized dose optimization techniques were used for this CT. COMPARISON: None. FINDINGS: Normal soft tissue structures. Normal calvarium. There is mild cerebral atrophy with widening of the extra- axial spaces and ventricular dilatation. There are areas of decreased attenuation within the white matter tracts of the supratentorial brain, consistent with microvascular disease changes. Normal basal ganglia and thalami. Normal brainstem. Normal cerebellum. There is no intracranial hemorrhage. There are no findings of an acute ischemic infarction. Normal visualized paranasal sinuses. CT/Brain/Head without Contrast IMPRESSION: 1. No acute findings. 2. Microvascular ischemia. Atrophy. Dr. Machado discussed the findings with Dr. Conrad at 6:35 PM. N.B. : The above information has been verbally conveyed by Martha Machado MD to Dr. Jose Conrad MD, on 07/18/2018 18:39:31 (ET). Electronically Signed: Martha Machado MD at 18:37 EST Tel , Service support , CC: Jose Conrad MD; Albert House MD Price Checker: Signed CHEST 1 VIEW Observed: 07/18/2018 Status: F Source: ANGEL 6:12 PM [facility]IT[facility] [place] [address] Chest 1 View MR#: [id number] Acct: [id number] Name: GARCÍA BURROWS Rep #: [id number] : 1950 F 67 From: Balwinder Bermudez MD PCP: Albert House MD, Chi Status: REG ER Study: Chest 1 View Date of Exam: 07/18/18 Exam# [id number] Ordering Dr: Jose Conrad MD STUDY: X-RAY CHEST REASON FOR EXAM: Female, 67 years old. Altered mental status. TECHNIQUE: Single frontal view of the chest. COMPARISON: November 26, 2016 FINDINGS: There is low volume inspiration unchanged. The atelectasis of both bases has decreased since prior study.. There is no demonstrated pleural abnormality. There is stable cardiomegaly. Normal mediastinum and bala. Normal visualized pulmonary arteries. There is atherosclerotic calcification of the aortic arch with tortuosity. Normal visualized thoracic spine. Normal visualized ribs, clavicles, and shoulders. There is no demonstrated abnormality of the visualized soft tissue structures of the upper abdomen. RAD/Chest 1 View IMPRESSION: Low volume inspiration with cardiomegaly and atelectasis. No acute abnormality. Electronically Signed: Balwinder Bermudez MD at 19:25 EST , Service support , CC: Jose Conrad MD; Albert House MD Price Checker: Signed BEDSIDE GLUCOSE Collected: 07/18/2018 Status: F Source: ANGEL 6:11 PM [facility] TYPE CODE TESTS RESULT OUT OF REFERENCE UNITS RANGE LAB L501.080 70-110 mg/dL High BEDSIDE GLU 142 Result Comment: MANAGEMENT OF PATIENT CARE PER NURSING PROTOCOL Performed By: #### L501.080 #### [facility] Point of Care [address] [place] [address] ESOPHAGUS ONLY Observed: 06/26/2018 Status: F Source: ANGEL 9:51 AM [facility] Imaging Services [address] [place] [address] Esophagus Only MR#: [id number] Acct: [id number] Name: GARCÍA BURROWS Rep #: [id number] : 1950 F 67 From: Bandar Mckeon MD PCP: Matheus BLACK,Albert Plascencia Status: REG CLI Study: Esophagus Only Date of Exam: 06/26/18 Exam# [id number] Ordering Dr: Albert House MD STUDY: X-RAY - ESOPHAGUS (BARIUM SWALLOW) WITH FLUOROSCOPY REASON FOR EXAM: Female, 67 years old. Dysphagia. TECHNIQUE: 12 view(s) of the esophagus were obtained following swallowing of barium. FLUOROSCOPY TIME (if supplied): (0:29) minutes/seconds COMPARISON: None. FINDINGS: There is no demonstrated esophageal foreign body. There is no demonstrated stricture or mucosal abnormality. Normal gastroesophageal junction, without a demonstrated hiatal hernia. The patient is status post subtotal gastrectomy. The patient ingested a 12 mm tablet of barium without any difficulty. Normal visualized aortic arch and descending thoracic aorta. Normal visualized pulmonary parenchyma. There are diffuse degenerative changes of the visualized thoracic spine. RAD/Esophagus Only IMPRESSION: Normal plain film x-ray examination (barium swallow) of the esophagus. The patient is status post subtotal gastrectomy for gastric bypass surgery. Electronically Signed: Bandar Mckeon MD at 13:18 EST Tel [phone], Service support , CC: Albert House MD Price Checker: Signed MODIFIED BARIUM Observed: 06/22/2018 Status: F Source: BRUMLEY SWALLOW STUDY 6:10 PM [facility] Speech Pathology [address] [place] [address] Modified Barium Swallow Study MR#: [id number] Acct: [id number] Name: GARCÍA BURROWS Rep #: [id number] : 1950 67 From: Shanon Wesley M.A. CCC-HEALTH PHYSICS TECHNICIAN PRIMARY / SECONDARY DIAGNOSIS: Dysphagia REFERRING PHYSICIAN: Dr. House CURRENT DIET: regular textures/thin liquids DENTITION: natural dentition present MENTAL STATUS: able to follow commands for adequate participation in MBS RESPIRATORY STATUS: oxygenating on room air PREVIOUS MODIFIED BARIUM SWALLOW STUDY: n/a REASON FOR REFERRAL: Patient reports acute onset of difficulty swallowing approx 3 weeks ago w/ sensation of food/liquid sticking in throat and won t go down ; patient is additionally scheduled for an esophagram on 06/26/2018. MEDICAL HISTORY: Ulcer of RLE, DMII, PV, LE edema, delayed wound healing, anemia, HLD, HTN, aortic stenosis, asthma, concussion, depression, L hip fracture s/p ORIF, GERD, hypoxia, mitral stenosis, nausea, neuropathic pain, CHIDI, pneumococcal pneumonia, vertigo. Pt is a poor historian re: personal medical history. Reports past hospitalization requiring a trach 6-7 years ago unable to provide additional details. STUDY FINDINGS: Patient participated in a Modified Barium Swallow (MBS) study on 06/22/2018. Dr. Mckeon was the radiologist present for this evaluation. This study was recorded in the lateral view and images were sent to PACs for storage. The following consistencies were presented to this patient for analysis of oropharyngeal swallow function: thin liquid, nectar thickened liquid, pudding, and a regular textured, Delfina Doone cookie. Results of the MBS are as follows: PENETRATION / ASPIRATION SCALE (PINEDA): 1 = does not enter airway 2 = enters airway/above vocal folds/ejected 3 = enters airway/above vocal folds/not ejected 4 = enters airway/contacts vocal folds/ejected 5 = enters airway/contacts vocal folds/not ejected 6 = enters airway/below vocal folds/ejected 7 = enters airway/below vocal folds/not ejected despite effort 8 = enters airway/below vocal folds/no effort PENETRATION / ASPIRATION SCALE (SCORE): 1.Thin tsp: 1 2.Thin tsp: 5 3.Thin cup: 2 trace 4.Thin cup sequential swallows: 8 trace amount 5.[place] cup: 2 scant 6.Puddin 7.[place] cup: 1 8.Cookie: 1 9.[place] cup: 1 10.Thin cup: 1 11.Thin cup: 2 trace 12.Thin cup w/ chin tuck: 2 scant IMPRESSION: ORAL PHASE CHARACTERIZED BY: LABIAL SEAL: no labial escape TONGUE CONTROL DURING BOLUS MANIPULATION: posterior escape of less than half of bolus BOLUS PREPARATION / MASTICATION: slow prolonged chewing/mashing with complete recollection BOLUS TRANSPORT / LINGUAL MOTION: slowed tongue motion ORAL RESIDUE: residue collection on oral structures PHARYNGEAL PHASE CHARACTERIZED BY: INITIATION OF PHARYNGEAL SWALLOW: bolus head in pyriforms at first hyoid excursion SOFT PALATE ELEVATION: no bolus between soft palate and pharyngeal wall LARYNGEAL ELEVATION: minimal superior movement of thyroid cartilage/minimal approximation of arytenoids cartilage to epiglottic petiole ANTERIOR HYOID EXCURSION: trace anterior movement EPIGLOTTIC MOVEMENT: partial epiglottic inversion LARYNGEAL VESTIBULE CLOSURE AT HEIGHT OF SWALLOW: incomplete laryngeal vestibule closure with narrow column of air/contrast in laryngeal vestibule PHARYNGEAL STRIPPING WAVE: pharyngeal stripping wave present / diminished PHARYNGOESOPHAGEAL SEGMENT OPENING: partial distension and partial duration; partial obstruction of flow TONGUE BASE RETRACTION: wide column of contrast between tongue base and posterior pharyngeal wall PHARYNGEAL RESIDUE: majority of contrast within or on pharyngeal structures ESOPHAGEAL PHASE CHARACTERIZED BY: ESOPHAGEAL BOLUS CLEARANCE IN THE UPRIGHT POSITION: esophageal retention EFFECTS OF TREATMENT STRATEGIES ATTEMPTED: * Chin tuck posture = not effective * Left head turn = not effective * Right head turn = not effective * Cued expectoration = not effective * Double swallow = moderately effective * Liquid chaser = moderately effective * Reduced bolus size = effective INTERPRETATION OF RESULTS: Patient presents with moderate to severe oropharyngeal dysphagia (R13.12). Oral phase primarily marked by mastication inefficiency (slow, prolonged) w/ suboptimal lingual control resulting in premature pharyngeal bolus entry and poor oral clearance w/ oral residue retention post deglutition. Pharyngeal phase primarily marked by delayed pharyngeal swallow onset timing resulting in suboptimal bolus location upon swallow onset w/ liquids reaching the pyriforms prior to pharyngeal swallow initiation. Reduced closure of the airway during deglutition attributed to poor laryngeal elevation and reduced anterior hyoid excursion resulting in insufficient epiglottic inversion and incomplete laryngeal vestibule closure. Pharyngeal dysmotility attributed to reduced tongue base retraction, reduced posterior pharyngeal stripping wave action. Tissue/mass of unknown etiology was noted to protrude from the posterior pharyngeal wall at the C4-5 level. This protrusion made contact w/ the tip of the epiglottis, preventing complete inversion and restricting pharyngeal bolus flow, resulting in retention w/in the valleculae/along the posterior laryngeal surface of the epiglottis. Incomplete epiglottic inversion and partially reduced pharyngoesophageal segment opening resulting in a significant collection of contrast retained w/in the valleculae, pyriform sinuses and lining the inferior-posterior pharyngeal wall. Trace aspiration occurred w/ thin liquids when presented via teaspoon and w/ large volume/sequential swallow. Aspiration was of a scant amount and silent in nature. Aspiration was eliminated w/ use of single sips via cup. Noted that cue cough response was insufficient to expel trace laryngotracheal aspiration, with relatively weak cough response noted. ANATOMICAL ABNORMALITIES: Tissue/mass of unknown etiology was noted to protrude from the posterior pharyngeal wall at the C4-5 level during deglutition. RECOMMENDATIONS: DIET TEXTURE RECOMMENDATIONS: * Regular textures * Thin liquids COMPENSATORY STRATEGIES RECOMMENDED: * Small bites * Small sips * Double swallow/multiple swallows as needed to assist w/ pharyngeal clearance * liquid chaser * Seated upright at 90 degrees during PO intake * Remain upright for 30-60 minutes post meal (GERD precaution) NEED FOR ADDITIONAL SKILLED SPEECH THERAPY SERVICES: Patient requires intensive skilled speech-language intervention in the outpatient setting targeting: * continued assessment of diet texture management w/ downgrade to nectar thickened liquids if any s/s diet intolerance/pulmonary complications arise * instruction with and assessment of effective compensatory strategy use * training and implementation of recommended oral and pharyngeal strengthening exercises to facilitate improved lingual and pharyngeal strengthening to improve synchrony and oral/pharyngeal bolus clearance REFERRALS: * Would strongly consider a referral for further workup via neurologist as the Patient demonstrated significant oropharyngeal weakness/dysphagia which she reports to be acute in onset, approximately 3 weeks ago. * May also consider referral to ENT for assessment of posterior pharyngeal wall d/t anatomical abnormality noted during deglutition as described above. ADDITIONAL COMMENTS/RECOMMENDATIONS: Results and recommendations were discussed with the Patient immediately following MBS completion. Images were reviewed to improve patient comprehension of deficits identified, need for adherence to recommended aspiration precautions and the importance of follow up for outpatient speech therapy services targeting dysphagia. The Patient verbalized understanding and agreement with all recommendations and education provided. IMAGE COUNT: [id number] 06/22/18 1810 <Electronically signed by Shanon Wesley M.A., CCC-HEALTH PHYSICS TECHNICIAN> Date Shanon Wesley M.A. CCC-HEALTH PHYSICS TECHNICIAN Co-Signature Required for all Medicare patients Date/Time Co-Signature CC: SWALLOWING FUNCTION Observed: 06/22/2018 Status: F Source: [place]LEY W/VIDEO 1:13 PM [facility] Imaging Services [address] [place] [address] Swallowing Function w/Video MR#: [id number] Acct: [id number] Name: GARCÍA BURROWS Rep #: [id number] : 1950 F 67 From: Bandar Mckeon MD PCP: Albert House MD, Chi Status: REG CLI Study: Swallowing Function w/Video Date of Exam: 06/22/18 Exam# [id number] Ordering Dr: Albert House MD STUDY: SWALLOWING STUDY REASON FOR EXAM: Female, 67 years old. Dysphagia. TECHNIQUE: The examination was performed with Speech Pathology in attendance. Under fluoroscopic observation, the patient ingested thin barium, thick barium, barium pudding, and barium coated cracker. FLUOROSCOPY TIME: 4:04 minutes/seconds. 3677 images were obtained. RADIOLOGIST INVOLVEMENT: Radiologist was present and providing direct supervision. COMPARISON: None. FINDINGS: The following was observed during swallowing of the various mixtures of barium: Thin Barium: Transient penetration and silent aspiration with ingestion of thin liquids. Thick Barium: There was no evidence of aspiration or laryngeal penetration. Barium Pudding: There was no evidence of aspiration or laryngeal penetration. Barium Coated Cracker: There was no evidence of aspiration or laryngeal penetration. RAD/Swallowing Function w/Video IMPRESSION: Penetration and silent aspiration with the ingestion of thin liquids. The swallow study findings were discussed with the patient by the speech pathologist at the conclusion of the examination. Please see speech pathology report for more information and recommendations. Electronically Signed: Bandar Mckeon MD at 14:51 EST Tel [phone], Service support , CC: Albert House MD Price Checker: Signed SPINE LUMBAR Observed: 06/17/2018 Status: F Source: BRUMLEY (ROUTINE) 12:52 PM [facility] Imaging Services [address] [place] [address] Spine Lumbar (Routine) MR#: [id number] Acct: [id number] Name: GARCÍA BURROWS Rep #: [id number] : 1950 F 67 From: Gallo Marie MD PCP: Albert House MD, Chi Status: REG CLI Study: Spine Lumbar (Routine) Date of Exam: 06/17/18 Exam# [id number] Ordering Dr: Albert House MD STUDY: MRI LUMBAR SPINE WITHOUT CONTRAST REASON FOR EXAM: Female, 67 years old. Bilateral leg weakness TECHNIQUE: Standardized fat and water weighted pulse sequences were obtained in the sagittal and axial planes. COMPARISON: None FINDINGS: T12-L1: Normal endplates. Normal disc height, hydration and morphology. Normal bilateral facet joints. Normal central canal and bilateral lateral recesses. Normal bilateral intervertebral neural foramina. Normal lumbar lordosis. There is no substantial scoliosis. Normal conus medullaris that terminates at T12-L1 L1-2: Normal endplates. Normal disc height, hydration and morphology. Normal bilateral facet joints. Normal central canal and bilateral lateral recesses. Normal bilateral intervertebral neural foramina. L2-3: Narrowed disc space with desiccation of the disc and minor annular bulge with small bilateral foraminal disc protrusions. Normal facet joints Normal central canal and bilateral recesses.. Mild bilateral foraminal stenosis L3-4: Narrowed disc space with desiccation of the disc and minor annular bulge with small bilateral foraminal disc protrusions. Mild facet arthropathy. Normal bilateral facet joints. Normal central canal. Moderate bilateral neural foraminal stenosis L4-5: Normal endplates. Normal disc height, desiccation and moderate annular bulge.. Bilateral facet arthropathy and thickening of ligamenta flava.. Normal central canal. Moderate bilateral recess and neuroforaminal stenosis. L5-S1: Normal endplates. Normal disc height, desiccation and mild annular bulge.. Bilateral facet arthropathy.. Normal central canal. Mild bilateral recess and moderate neuroforaminal stenosis Normal visualized sacral ala. Normal visualized paraspinous soft tissue structures. MRI/Spine Lumbar (Routine) IMPRESSION: No evidence for acute fracture or subluxation Moderate spondylosis and multilevel spinal stenosis secondary to disc disease and bony hypertrophy. Findings as above Electronically Signed: Gallo Marie MD at 23:59 EST , Service support , CC: Albert House MD Price Checker: Signed Observed: 06/16/2018 Status: F Source: ANGEL CULTURE, URINE 2:05 PM [facility] Urine Culture ORGANISM 1: Presumptive E. coli [place] Count >100,000 Presumptive E. coli: REACTION Amoxacillin/Clavulanic Acid $ 4 S Ampicillin $ >=32 R Ampicillin/Sulbactam $ 16 I Cefazolin $ 8 S Cefepime $ <=1 S Ceftriaxone $ <=1 S Ciprofloxacin $ >=4 R ESBL - Ertapenim $$$ <=0.5 S Gentamicin $ <=1 S Imipenem *NF <=0.25 S Levofloxacin $ >=8 R Nitrofurantoin $ <=16 S Piperacillin/Tazobactam $$ <=4 S Tobramycin $ <=1 S Trimethoprim/Sulfametho $ >=320 R (NF) indicates non-formulary drug at [facility]. Approval by Infectious Disease Specialist required before non-formulary drugs may be ordered and/or dispensed. Performed By: #### M100.0650 #### [facility] [address] [place], [address] LUMBAR SPINE 2 OR 3 Observed: 06/09/2018 Status: F Source: BRUMLEY VIEWS 4:15 PM [facility] Imaging Services [address] [place] [address] Lumbar Spine 2 or 3 Views MR#: [id number] Acct: [id number] Name: GARCÍA BURROWS Rep #: [id number] : 1950 F 67 From: Bandar Mckeon MD PCP: Albert House MD, Chi Status: REG CLI Study: Lumbar Spine 2 or 3 Views Date of Exam: 06/09/18 Exam# [id number] Ordering Dr: Albert House MD STUDY: X-RAY - LUMBAR SPINE REASON FOR EXAM: Female, 67 years old. Low back pain and bilateral lower extremity weakness. TECHNIQUE: 3 view(s) of the lumbar spine were obtained. COMPARISON: Comparison is made with prior examination dated October 30, 2015. FINDINGS: Normal lumbar lordosis. There is a levoscoliosis of the lumbar spine. There is a normal alignment of the vertebrae. There is multilevel endplate spondylosis of the lumbar vertebrae. There is multi-level degenerative disc disease with multi-level disc space narrowing. There is atherosclerotic calcification of the abdominal aorta without a demonstrated aneurysm. Calcification of the vas deferens. Prior screw fixation of the proximal left femur. RAD/Lumbar Spine 2 or 3 Views IMPRESSION: Degenerative changes of the spine, as detailed above. Electronically Signed: Bandar Mckeon MD at 16:00 EST Tel [phone], Service support , CC: Albert House MD Price Checker: Signed IRON BINDING Collected: 04/15/2018 Status: F Source: [facility],TOTAL 2:32 PM [facility] TYPE CODE TESTS RESULT OUT OF RANGE REFERENCE UNITS LAB L503.6075 250-450 ug/dL Low TIBC 173 Performed By: #### L503.6075, L503.6150 #### [facility] [address] [place], [place], [address] IRON Collected: 04/15/2018 Status: F Source: [place] 2:32 PM [facility] [place] TYPE CODE TESTS RESULT OUT OF RANGE REFERENCE UNITS LAB L503.6150 50-170 ug/dL Normal IRON 96 Performed By: #### L503.6075, L503.6150 #### [facility] [address] [place], [place], [address] CBC W/DIFF, AUTOMATED Collected: 04/15/2018 Status: F Source: [place] 2:32 PM [facility] [place] TYPE CODE TESTS RESULT OUT OF RANGE REFERENCE UNITS LAB L100.1000 4.4-11.0 K/mm3 Normal WBC 7.0 LAB L100.1200 4.2-5.4 M/mm3 Normal RBC 4.43 LAB L100.1300 12.0-15.0 g/dl Normal HGB 12.3 LAB L100.1400 37-47 % Normal HCT 39.8 LAB L100.1500 81-99 fL Normal MCV 89.8 LAB L100.1600 27.0-32.0 pg Normal MCH 27.8 LAB L100.1700 32-36 g/gl Low MCHC 30.9 LAB L100.1810 11.6-14.6 % High RDW CV 20.5 LAB L100.1820 35.1-43.9 fl High RDW SD 67.3 LAB L100.1900 150-450 K/mm3 Low PLT 138 LAB L100.2000 6.2-12.0 fl Normal MPV 10.7 LAB L100.2100 47-70 % Normal NEUT% 67.6 LAB L100.2200 19-41 % Normal LY% 20.7 LAB L100.2300 0-10 % Normal MONO% 9.9 LAB L100.2400 0-5 % Normal EO% 1.2 LAB L100.2500 0-1 % Normal BASO% 0.3 LAB L100.2550 0.0-0.9 % Normal IM GRAN % 0.300 Result Comment: IG% - Immature Granulocytes (promyelocytes, myelocytes and metamyelocytes) > 1% indicates that a LEFT SHIFT is Present. LAB L100.2620 2.0-7.7 X10 3/uL Normal Absolute Neut 4.7 LAB L100.2720 0.83-4.51 X10 3/ul Normal Absolute Lymph 1.44 LAB L100.4500 Normal SMEAR COMMENT SCANNED Result Comment: RARE LARGE PLATELETS NOTED LAB L100.7300 Normal ANISO 1+ Performed By: #### L100.0100 #### [facility] [address] [facility] [place], [address] LIVER Observed: 04/06/2018 Status: F Source: [place] 8:55 AM [facility] [place] [facility] Imaging Services [address] [place] [address] Liver MR#: [id number] Acct: [id number] Name: GARCÍA BURROWS Rep #: [id number] : 1950 F 67 From: Marcial Winston DO PCP: Albert House MD, Chi Status: REG CLI Study: Liver Date of Exam: 04/06/18 Exam# [id number] Ordering Dr: Albert House MD STUDY: ABDOMINAL ULTRASOUND - RIGHT UPPER QUADRANT REASON FOR VISIT: Female, 67 years old. Elevated LFTs. TECHNIQUE: Ultrasound evaluation of the right upper quadrant was performed with real-time and static castillo-scale imaging. TECHNICAL QUALITY: Adequate. COMPARISON: None. FINDINGS: Liver: The liver measures 13.9 cm. There is increased echogenicity consistent with fatty infiltration. There is mild intrahepatic ductal dilatation. There is hepatic color flow. The direction of portal flow is hepatopetal. There is an irregular area of echogenicity in the right liver with acoustic shadowing suggesting calcification. Gallbladder: The patient is status post cholecystectomy. Common Bile Duct (C.B.D.): The common bile duct measures 19 mm. There are no visualized filling defects. Pancreas: Normal size of the head, body and tail of the pancreas. There is normal echogenicity of the pancreas. There is no demonstrated pancreatic mass or cyst. Right Kidney: Normal size of the right kidney. The right kidney measures 10.3 cm. Normal renal cortex. The right cortex measures 1.7 cm. There is no demonstrated renal mass or cyst. There is no right hydronephrosis. US/Liver IMPRESSION: 1. Status post cholecystectomy. There is intra and extrahepatic ductal dilatation thought to be secondary to the postcholecystectomy state. There is no visualized filling defect. 2. Calcification in the posterior right liver. 3. Fatty infiltration liver. Electronically Signed: Marcial Winston DO at 17:15 EDT Tel [phone], Service support , CC: Albert House MD Price Checker: Signed HEPATITIS ABC PROFILE Collected: 03/31/2018 Status: F Source: [place] 2:44 PM [facility] [place] TYPE CODE TESTS RESULT OUT OF RANGE REFERENCE UNITS LAB L3100.0200 Negative Normal HEP A Negative IgM 6734 LAB L3100.0300 Negative Normal HEP A Negative AB,[id number] LAB L3100.0400 Negative Normal HB Negative SURF AG LAB L3100.0440 Negative Normal HB Negative CORE [id number] LAB L3100.0460 Negative High HEP B Positive CORE,TOT LAB L3100.0510 . Normal Hep B Reactive Jennifer AB Result Comment: Non Reactive: Inconsistent with immunity, less than 10 mIU/mL Reactive: Consistent with immunity, greater than 9.9 mIU/mL LAB L3100.0750 0.0-0.9 s/co ratio Normal HCV Ab <0.1 LAB L3100.0765 . Normal COMMENT Comment Result Comment: Non reactive HCV antibody screen is consistent with no HCV infection, unless recent infection is suspected or other evidence exists to indicate HCV infection. Performed at: - [facility] [address] [id number] Termite Treater: Leroy Pimentel PhD, Phone: [phone] Performed By: #### L3000.0700 #### [facility] (refer to report for specific site) refer to report for address and phone number CBC W/DIFF, AUTOMATED Collected: 03/30/2018 Status: F Source: [place]EL 2:44 PM [facility] [place] TYPE CODE TESTS RESULT OUT OF RANGE REFERENCE UNITS LAB L100.1000 4.4-11.0 K/mm3 Normal WBC 6.3 LAB L100.1200 4.2-5.4 M/mm3 Normal RBC 5.10 LAB L100.1300 12.0-15.0 g/dl Normal HGB 13.5 LAB L100.1400 37-47 % Normal HCT 43.4 LAB L100.1500 81-99 fL Normal MCV 85.1 LAB L100.1600 27.0-32.0 pg Low MCH 26.5 LAB L100.1700 32-36 g/gl Low MCHC 31.1 LAB L100.1810 11.6-14.6 % High RDW CV 20.7 LAB L100.1820 35.1-43.9 fl High RDW SD 65.1 LAB L100.1900 150-450 K/mm3 Normal PLT 164 LAB L100.2000 6.2-12.0 fl Normal MPV 10.6 LAB L100.2100 47-70 % Normal NEUT% 69.9 LAB L100.2200 19-41 % Normal LY% 20.5 LAB L100.2300 0-10 % Normal MONO% 7.8 LAB L100.2400 0-5 % Normal EO% 1.1 LAB L100.2500 0-1 % Normal BASO% 0.5 LAB L100.2550 0.0-0.9 % Normal IM GRAN % 0.200 Result Comment: IG% - Immature Granulocytes (promyelocytes, myelocytes and metamyelocytes) > 1% indicates that a LEFT SHIFT is Present. LAB L100.2620 2.0-7.7 X10 3/uL Normal Absolute Neut 4.4 LAB L100.2720 0.83-4.51 X10 3/ul Normal Absolute Lymph 1.28 LAB L100.4500 SMEAR Normal COMMENT Result Comment: 1+ ANISOCYTOSIS Performed By: #### L100.0100 #### [facility] [address] [place], [address] COMPREHENSIVE METABOLIC Collected: 03/30/2018 Status: F Source: ANGEL BREN[place] 2:44 PM [facility] [place] TYPE CODE TESTS RESULT OUT OF RANGE REFERENCE UNITS LAB L501.0100 74-106 mg/dL High GLU 155 Result Comment: Fasting Glucose result greater than or equal to 126 mg/dL suggests DIABETES MELLITUS per A.D.A. criteria. Please note revised GLUCOSE reference range effective 2017. LAB L501.1000 7-18 mg/dL High BUN 19 LAB L501.1100 0.55-1.02 mg/dL Normal CREAT,SERUM 0.77 Result Comment: The validity of the calculated GFR AND GFRAA in patients over 70 years has not been determined. Clinical correlation is essential. LAB L501.1110 >60 mL/min Normal EST GFR 79 Result Comment: Non- GFR Calc LAB L501.1115 >60 mL/min Normal EST GFR - AA 95 Result Comment: GFR Calc LAB L501.1255 ml/min Normal Estimated CRCL 43.92 LAB L501.1300 10-20 RATIO High BUN/CRE 24.6 LAB L501.1500 6.4-8. g/dL Low 2 T PROT 4.9 LAB L501.1800 3.2-5. g/dL Low 0 ALB 2.1 LAB L501.1950 2.2-4. g/dL Normal 2 GLOB 2.8 LAB L501.2000 0.9-2. RATIO Low 4 A/G 0.8 LAB L501.2200 8.5-10 mg/dL Low .1 CA 7.7 LAB L501.4100 15-37 U/L High AST 224 LAB L501.4305 45-117 U/L Normal ALK P 115 LAB L501.4405 13-56 U/L High ALT 164 LAB L501.4600 0.20-1 mg/dL Normal .00 T BILI 0.80 LAB L501.5300 136-14 mmol/L High 5 NA 146 LAB L501.5600 3.5-5. mmol/L Normal 1 K 3.8 LAB L501.5900 98-107 mmol/L High CL 109 LAB L501.6100 21.0-3 mmol/L Normal 2.0 CO2 27.0 LAB L501.6200 5-15 Normal GAP 10 Performed By: #### L500.4050, L501.9520 #### [facility] [address] [place], [address] THYROID STIM HORMONE Collected: 03/30/2018 Status: F Source: [place]EL (TSH) 2:44 PM [facility] [place] TYPE CODE TESTS RESULT OUT OF RANGE REFERENCE UNITS LAB L501.9520 0.358-3.74 uIU/mL Normal TSH 1.79 Performed By: #### L500.4050, L501.9520 #### [facility] [address] [place], [address] VITAMIN D,25 HYDROXY Collected: 03/30/2018 Status: F Source: [place] 2:44 PM [facility] [place] TYPE CODE TESTS RESULT OUT OF RANGE REFERENCE UNITS LAB L506.1000 29.95-100.01 ng/mL Normal Vitamin D 35.1 25-OH Result Comment: Vitamin D 25(OH) Status Range Deficiency <20 ng/mL (50nmol/L) Insuffciency 20 - 30 ng/mL (50 - 75 nmol/L) Sufficiency 30 - 100 ng/mL (75 - 250 nmol/L) Toxicity >100 ng/mL (>250 nmol/L) Performed By: #### L506.1000 #### [facility] [address] [place], [address] CBC W/DIFF, AUTOMATED Collected: 01/19/2018 Status: F Source: [place] 5:11 PM [facility] [place] TYPE CODE TESTS RESULT OUT OF RANGE REFERENCE UNITS LAB L100.1000 4.4-11.0 K/mm3 Normal WBC 6.1 LAB L100.1200 4.2-5.4 M/mm3 Normal RBC 5.01 LAB L100.1300 12.0-15.0 g/dl Normal HGB 12.0 LAB L100.1400 37-47 % Normal HCT 39.2 LAB L100.1500 81-99 fL Low MCV 78.2 LAB L100.1600 27.0-32.0 pg Low MCH 24.0 LAB L100.1700 32-36 g/gl Low MCHC 30.6 LAB L100.1810 11.6-14.6 % High RDW CV 26.6 LAB L100.1820 35.1-43.9 fl High RDW SD 73.0 LAB L100.1900 150-450 K/mm3 Normal PLT 190 LAB L100.2000 6.2-12.0 fl Normal MPV 10.6 LAB L100.2100 47-70 % Normal NEUT% 61.6 LAB L100.2200 19-41 % Normal LY% 29.2 LAB L100.2300 0-10 % Normal MONO% 7.2 LAB L100.2400 0-5 % Normal EO% 1.5 LAB L100.2500 0-1 % Normal BASO% 0.3 LAB L100.2550 0.0-0.9 % Normal IM GRAN % 0.200 Result Comment: IG% - Immature Granulocytes (promyelocytes, myelocytes and metamyelocytes) > 1% indicates that a LEFT SHIFT is Present. LAB L100.2620 2.0-7.7 X10 3/uL Normal Absolute Neut 3.8 LAB L100.2720 0.83-4.51 X10 3/ul Normal Absolute Lymph 1.78 LAB L100.4500 Normal SMEAR COMMENT SCANNED Result Comment: 1+ ANISOCYTOSIS Performed By: #### L100.0100 #### [facility] [address] [place], [address] COMPREHENSIVE METABOLIC Collected: 01/19/2018 Status: F Source: [facility] 5:11 PM [facility] [place] TYPE CODE TESTS RESULT OUT OF RANGE REFERENCE UNITS LAB L501.0100 74-106 mg/dL High GLU 194 Result Comment: Fasting Glucose result greater than or equal to 126 mg/dL suggests DIABETES MELLITUS per A.D.A. criteria. Please note revised GLUCOSE reference range effective 2017. LAB L501.1000 7-18 mg/dL High BUN 24 LAB L501.1100 0.55-1.02 mg/dL Normal CREAT,SERUM 0.93 Result Comment: The validity of the calculated GFR AND GFRAA in patients over 70 years has not been determined. Clinical correlation is essential. LAB L501.1110 >60 mL/min Normal EST GFR 64 Result Comment: Non- GFR Calc LAB L501.1115 >60 mL/min Normal EST GFR - AA 77 Result Comment: GFR Calc LAB L501.1300 10-20 RATIO High BUN/CRE 25.9 LAB L501.1500 6.4-8.2 g/dL Low T PROT 6.1 LAB L501.1800 3.2-5.0 g/dL Low ALB 3.0 LAB L501.1950 2.2-4.2 g/dL Normal GLOB 3.1 LAB L501.2000 0.9-2.4 RATIO Normal A/G 1.0 LAB L501.2200 8.5-10.1 mg/dL CA Normal 8.5 LAB L501.4100 15-37 U/L Normal AST 22 LAB L501.4305 45-117 U/L High ALK P 121 LAB L501.4405 13-56 U/L Normal ALT 28 LAB L501.4600 0.20-1.00 mg/dL T Normal BILI 0.50 LAB L501.5300 136-145 mmol/L High NA 146 LAB L501.5600 3.5-5.1 mmol/L K Normal 4.2 LAB L501.5900 98-107 mmol/L High CL 109 LAB L501.6100 21.0-32.0 mmol/L Normal CO2 28.0 LAB L501.6200 5-15 Normal GAP 9 Performed By: #### L500.4050, L501.9520, L503.6075, L503.6150 #### [facility] [address] [place], [address] THYROID STIM HORMONE Collected: 01/19/2018 Status: F Source: [place] (TSH) 5:11 PM [facility] [place] TYPE CODE TESTS RESULT OUT OF RANGE REFERENCE UNITS LAB L501.9520 0.358-3.74 uIU/mL Normal TSH 1.22 Performed By: #### L500.4050, L501.9520, L503.6075, L503.6150 #### [facility] [address] [place], [address] IRON BINDING Collected: 01/19/2018 Status: F Source: ANGEL CAPACITY,TOTAL 5:11 PM [facility] [place] TYPE CODE TESTS RESULT OUT OF RANGE REFERENCE UNITS LAB L503.6075 250-450 ug/dL Normal TIBC 334 Performed By: #### L500.4050, L501.9520, L503.6075, L503.6150 #### [facility] [address] [place], [address] IRON Collected: 01/19/2018 Status: F Source: [place] 5:11 PM [facility] [place] TYPE CODE TESTS RESULT OUT OF RANGE REFERENCE UNITS LAB L503.6150 50-170 ug/dL Normal IRON 57 Performed By: #### L500.4050, L501.9520, L503.6075, L503.6150 #### [facility] [address] [place], [address] URINE DRUG SCREEN Collected: 01/15/2018 Status: F Source: [place]EL (VISTA) 12:00 PM [facility] [place] Order Comment: Comments: TRAMADOL [id number] URINE List of Drugs Taken or Suspected? UNK TYPE CODE TESTS RESULT OUT OF RANGE REFERENCE UNITS LAB L505.0075 TO BE Normal CONFIRMED Result Comment: CONFIRMATORY TESTING FOR ALL POSITIVE URINE DRUG SCREEN RESULTS WILL ONLY BE SENT OUT UPON PHYSICIAN ORDER. VISTA Urine Drug Screen methods provide only preliminary analytical test results. A more specific alternate chemical method must be used in order to obtain a confirmed analytical result. Gas chromatography/mass spectrometery (GC/MS) is the preferred confirmatory method. Clinical consideration and professional judgement should be applied to any drug of abuse test result, particularly when preliminary positive results are used. URINE TCA TESTING MUST BE ORDERED SEPARATELY. USE TEST MNEMONIC: [facility] LAB L505.5005 VISTA UDS PH 6 Normal LAB L505.5015 <1000 ng/mL AMPHETAMINES Normal NEGATIVE LAB L505.5025 < 200 ng/mL BARBITIURATES Normal NEGATIVE LAB L505.5035 < 200 ng/mL BENZODIAZIPINE Normal NEGATIVE LAB L505.5045 < 300 ng/mL COCAINE Normal NEGATIVE LAB L505.5055 < 500 ng/mL ECSTACY Normal NEGATIVE LAB L505.5065 < 300 ng/mL METHADONE Normal NEGATIVE LAB L505.5075 < 300 ng/mL OPIATES Normal NEGATIVE LAB L505.5085 < 25 ng/mL PCP Normal NEGATIVE LAB L505.5095 < 50 ng/mL THC Normal NEGATIVE Performed By: #### L505.5000 #### [facility] [address] [place], [address] MISCELLANEOUS LAB Collected: 01/15/2018 Status: F Source: ANGEL PROCEDURE 12:00 PM [facility] [place] Order Comment: Comments: TRAMADOL [id number] URINE Test(s) Ordered: #[id number] Run Lowest Urine Toxicology TYPE CODE TESTS RESULT OUT OF RANGE REFERENCE UNITS LAB L801.1541 Normal [facility] LAB TEST Result Comment: [id number] 6+OXYCODONE-BUND (ng/mL) DRUG RESULT SCREEN CUTOFF ____ Amphetamines,Urine Negative ng/mL 1000 Amphetamine test includes Amphetamine and Methamphetamine. Barbiturates Negative ng/mL 200 Benzodiazepines Negative ng/mL 200 Cannabinoid Negative ng/mL 20 Cocaine (Metab) Negative ng/mL 300 Opiates Negative ng/mL 300 Opiates test includes Codeine, Morphine, Hydromorphone, Hydrocodone. Oxycodone/Oxymorphone,Urine Negative ng/mL 300 Test includes Oxydodone and Oxymorphone. TESTING PERFORMED AT [facility]. ORIGINAL REPORT ON FILE IN LAB CONTAINS ADDITIONAL TEST SITE INFORMATION. Performed By: #### L801.1541 #### [facility] [address] [place], [address] MISCELLANEOUS LAB Collected: 01/15/2018 Status: F Source: ANGEL PROCEDURE 2 12:00 PM [facility] [place] [facility] Order Comment: Comments: TRAMADOL [id number] URINE List Test(s) Ordered by Physician: TRAMADOL [id number] URINE TYPE CODE TESTS RESULT OUT OF RANGE REFERENCE UNITS LAB L801.1543 Normal MISC LAB TEST 2 Result Comment: TEST RESULT UNITS REFERENCE INTERVAL TRAMADOL POSITIVE CUTOFF = 200 TRAMADOL GC/MS CONF >3000 ng/mL CUTOFF = 100 TESTING PERFORMED AT [facility]. ORIGINAL REPORT ON FILE IN LAB CONTAINS ADDITIONAL TEST SITE INFORMATION. Performed By: #### L801.1543 #### [facility] [address] [place], [address] IRON+IRON BINDING Collected: 12/05/2017 Status: F Source: ANGEL CAPACITY 10:56 AM [facility] [place] [facility] Order Comment: Comments: HUANG TYPE CODE TESTS RESULT OUT OF RANGE REFERENCE UNITS LAB L503.6075 250-450 ug/dL TIBC Normal 412 LAB L503.6150 50-170 ug/dL Low IRON 23 LAB L503.6250 15.0-55.0 % Low IRON SATURATION 5.6 Performed By: #### L503.6030, L503.6550 #### [facility] [address] [place], [address] FERRITIN Collected: 12/05/2017 Status: F Source: ANGEL 10:56 AM [facility] [place] [facility] Order Comment: Comments: HUANG TYPE CODE TESTS RESULT OUT OF REFERENCE UNITS RANGE LAB L503.6550 8-252 ng/mL Low FERRITIN 5 Performed By: #### L503.6030, L503.6550 #### [facility] [address] [place], [place], [address] CBC-COMPLETE BLOOD CNT Collected: 12/05/2017 Status: F Source: ANGEL NO DIFF 10:56 AM [facility] [place] TYPE CODE TESTS RESULT OUT OF RANGE REFERENCE UNITS LAB L100.1000 4.4-11.0 K/mm3 Normal WBC 5.3 LAB L100.1200 4.2-5.4 M/mm3 Normal RBC 4.64 LAB L100.1300 12.0-15.0 g/dl Low HGB 10.3 LAB L100.1400 37-47 % Low HCT 34.7 LAB L100.1500 81-99 fL Low MCV 74.8 LAB L100.1600 27.0-32.0 pg Low MCH 22.2 LAB L100.1700 32-36 g/gl Low MCHC 29.7 LAB L100.1810 11.6-14.6 % High RDW CV 17.3 LAB L100.1820 35.1-43.9 fl High RDW SD 45.3 LAB L100.1900 150-450 K/mm3 Normal PLT 198 LAB L100.2000 6.2-12.0 fl Normal MPV 11.4 Performed By: #### L100.0500, L100.9950, L100.4500 #### [facility] [address] [place], [place], [address] RETIC PANEL Collected: 12/05/2017 Status: C Source: ANGEL 10:56 AM [facility] [place] TYPE CODE TESTS RESULT OUT OF RANGE REFERENCE UNITS LAB L101.0000 0.5-1.5 % Normal RETIC 1.18 Result Comment: AMENDED REPORT 12/05/17 150 RETIC previously reported as: 1.16 LAB L101.0060 3.00-15.90 % IM Normal RET FRACTION 12.80 Result Comment: AMENDED REPORT 12/05/171501 IM RET FRACTION previously reported as: 13.50 LAB L101.0090 30-35 pg Low RET-HE 19.0 Result Comment: AMENDED REPORT 12/05/171501 RET-HE previously reported as: 21.3 L pg LAB L101.0110 1.0-7.9 % Normal IPF 4.2 Result Comment: Low PLT + Low IPF suggest a bone marrow production disorder Low PLT + high IPF suggests peripheral destruction (e.g.ITP, TTP, HIT, DIC, autoimmune) or bone marrow recovery Trending of serial IPF measurements is recommended when evaluating for bone marrow respones Value above normal range indicates an increase in RBC cellular response from bone marrow. Performed By: #### L100.0500, L100.9950, L100.4500 #### [facility] [address] [place], [address] DIFFERENTIAL COMMENT Collected: 12/05/2017 Status: F Source: ANGEL 10:56 AM [facility] [place] [facility] TYPE CODE TESTS RESULT OUT OF RANGE REFERENCE UNITS LAB L100.4500 Normal SMEAR COMMENT Result Comment: 2+ ANISOCYTOSIS 1+ HYPOCHROMIA Performed By: #### L100.0500, L100.9950, L100.4500 #### [facility] [address] [place], [address] CELIAC DISEASE Collected: 12/05/2017 Status: F Source: ANGEL PROFILE 10:56 AM [facility] [place] [facility] TYPE CODE TESTS RESULT OUT OF RANGE REFERENCE UNITS LAB L3200.1400 87-352 mg/dL Normal IMMUNO A 213 Result Comment: Performed at: - [facility] [address] [id number] Termite Treater: Leroy Pimentel PhD, Phone: [phone] LAB L3201.4594 0-3 U/mL Normal tTG IGA <2 Result Comment: Negative 0 - 3 Weak Positive 4 - 10 Positive >10 Tissue Transglutaminase (tTG) has been identified as the endomysial antigen. Studies have demonstr- ated that endomysial IgA antibodies have over 99% specificity for gluten sensitive enteropathy. LAB L3410.0018 Negative Normal ENDOMYSIAL IGA Negative Performed By: #### L3410.2400 #### [facility] (refer to report for specific site) refer to report for address and phone number HH, HEMOGLOBIN AND Collected: 11/11/2017 Status: F Source: ANGEL HEMATOCRIT 1:14 PM [facility] [place] [facility] TYPE CODE TESTS RESULT OUT OF RANGE REFERENCE UNITS LAB L100.1300 12.0-15.0 g/dl Low HGB 9.4 LAB L100.1400 37-47 % Low HCT 32.1 Performed By: #### L100.0600 #### [facility] [address] [place], [address] ECHOCARDIOGRAM COMPLETE Observed: 11/06/2017 Status: F Source: [place] 5:45 PM [facility] [place] Cardiovascular Services [address] [place] [address] Echo Complete 11/06/17 1359 MR#: [id number] Acct: [id number] Name: GARCÍA BURROWS Rep #: [id number] : 1950 66 From: Imer Alvarado MD Attending Dr: Imer Alvarado MD Status: REG CLI Ordering Dr: Imer Alvarado MD Date: 11/06/17 Location: CVS Sex: F C Admitted: Reason For Study: MURMUR Procedure This was a 2D Doppler, Color Flow transthoracic echocardiogram. The study was technically difficult. Exam performed in department. Left Ventricle Normal LV size. Left ventricular systolic function is normal. The estimated ejection fraction is 60 %. Stage 2 diastolic dysfunction. No regional wall motion abnormalities noted. Right Ventricle Normal RV size. Normal systolic function. Atria The left atrium is severely enlarged. Normal right atrium. No doppler evidence for ASD. Mitral Valve There is mild to moderate mitral annular calcification. Extension of the mitral annular calcification onto the posterior mitral valve leaflet. Mild diffuse mitral valve thickening. Mild (1+) mitral valve insufficiency. Tricuspid Valve Normal tricuspid valve. Mild tricuspid valve insufficiency. Right ventricular systolic pressure estimated to be 56 mmHg. Aortic Valve Trisinus/trileaflet aortic valve. Mild diffuse aortic valve thickening. Moderate focal aortic valve calcification. Mild to moderate aortic stenosis. Pulmonic Valve The pulmonic valve is not well visualized. Mild (1+) pulmonic valve insufficiency. Great Vessels The aortic root is not well visualized. Pericardium/Pleural Trivial pericardial effusion. There are no echocardiographic indications of cardiac tamponade. MMode/2D Measurements AND Calculations LVIDd: 5.3 cm IVSd: 1.2 cm LVOT diam: 2.0 cm LVIDs: 2.9 cm LVPWd: 1.2 cm LVOT area: 3.2 cm2 RVDd: 3.4 cm FS: 45.9 % LAV(MOD-bp): 121.0 ml LA A4 area: 30.6 cm2 RA A4 area: 18.2 cm2 LAV(MOD-bp) Indexed: 61.9 ml/m2 LAV(MOD-sp2): 120.4 ml LAV(MOD-sp4): 120.5 ml Doppler Measurements AND Calculations MV E max debbie: 149.7 cm/sec Lat Peak E' Debbie: 5.0 cm/sec Med Peak E' Debbie: 4.8 cm/sec MV A max debbie: 105.5 cm/sec E/E' lat: 30.1 E/E' med: 31.4 MV E/A: 1.4 MV V2 max: 150.6 cm/sec Ao V2 max: 286.1 cm/sec LV V1 max: 129.3 cm/sec MV max P.1 mmHg Ao max P.8 mmHg LV V1 max P.7 mmHg MV V2 mean: 82.2 cm/sec Ao V2 mean: 198.9 cm/sec LV V1 mean P.8 mmHg MV mean P.1 mmHg Ao mean P.4 mmHg LV V1 mean: 92.7 cm/sec MV V2 VTI: 45.8 cm Ao V2 VTI: 68.0 cm LV V1 VTI: 30.7 cm MVA(VTI): 2.2 cm2 PARVIZ(I,D): 1.5 cm2 PARVIZ(V,D): 1.5 cm2 SV(LVOT): 98.9 ml PA V2 max: 103.7 cm/sec TR max debbie: 364.5 cm/sec TR max P.4 mmHg Interpretation Summary Left ventricular systolic function is normal. The estimated ejection fraction is 60 %. The left atrium is severely enlarged. There is mild to moderate mitral annular calcification. Extension of the mitral annular calcification onto the posterior mitral valve leaflet. Mild diffuse mitral valve thickening. Mild (1+) mitral valve insufficiency. Mild tricuspid valve insufficiency. Mild to moderate aortic stenosis. Mild (1+) pulmonic valve insufficiency. The aortic root is not well visualized. Trivial pericardial effusion. There are no echocardiographic indications of cardiac tamponade. Right ventricular systolic pressure estimated to be 56 mmHg. Stage 2 diastolic dysfunction. Ordering Physician: Imer Alvarado Referring Physician: Albert House Chi Performed By: Ember Andrews, MANI, RVT 11/06/17 1744 Date Imer Alvarado MD CC: Imer Alvarado MD; Albert House MD Date Dictated: 11/06/17 1359 Date Transcribed: 11/06/171743 Price Checker: Signed LOWER EXT ARTERIAL Observed: 11/02/2017 Status: F Source: [place] STUDY 10:20 AM [facility] [place] [facility] Cardiovascular Services [address] [place] [address] 11/02/17 1015 MR#: [id number] Acct: [id number] Name: GARCÍA BURROWS Rep #: [id number] : 1950 66 From: Sarabjit Chi MD Attending Dr: Imer Alvarado MD Status: PRE CLI Ordering Dr: Date: 11/02/17 Location: CVS Sex: F C Admitted: Arterial Study - Arterial Study Arterial Study: This is a 66-year-old female with a history of diabetes mellitus, hypertension, and hyperlipidemia. 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 Suspecting the presence of atherosclerotic peripheral arterial occlusive disease, the patient was brought to the noninvasive vascular laboratory at this time for the purpose of bilateral noninvasive lower extremity arterial assessment. Doppler signal assessment was used to evaluate the pulses at ankle level bilaterally. The right posterior tibial pulse was biphasic. The right dorsalis pedis pulse was triphasic. On the left, the posterior tibial and dorsalis pedis pulses were triphasic. Segmental limb pressures were obtained bilaterally. The right ankle pressure, as determined by posterior tibial pulse, was measured at 174 mmHg. The right ankle pressure, as determined by dorsalis pedis pulse, could not be determined due to the noncompressibility of the vasculature. The right digital pressure was measured at 163 mmHg. The left ankle pressure, as determined by posterior tibial and dorsalis pedis pulses, could not be determined due to the noncompressibility of the vasculature. The left digital pressure was measured at 141 mmHg. Pulse-volume recordings were obtained bilaterally and segmentally. Waveform amplitudes appeared to be satisfactory at all levels bilaterally, including low thigh, calf, ankle, and digital levels. Resting ankle-brachial indices were calculated bilaterally. The resting right ankle-brachial index was calculated to be 1.02. The resting left ankle-brachial index could not be determined due to the noncompressibility of the vasculature at ankle level in the left lower extremity. Digital-brachial indices were calculated bilaterally. The right digital-brachial index was calculated to be 0.96. The left digital-brachial index was calculated to be 0.83. Impression: Based upon the findings of this resting noninvasive lower extremity arterial study, arterial perfusion appears to be relatively normal in the lower extremities bilaterally. Biphasic and triphasic waveforms were noted at ankle level on the right. Triphasic waveforms were noted at ankle level on the left. The resting right ankle-brachial index is normal. The resting left ankle-brachial index could not be determined due to the noncompressibility of the vasculature, likely due to arterial calcification. Digital- brachial indices are bilaterally normal, suggesting relatively normal perfusion at digital level bilaterally. 11/02/17 1020 <Electronically signed by Sarabjit Chi MD> Date Sarabjit Chi MD CC: Imer Alvarado MD; Albert House MD Date Dictated: 11/02/17 1015 Date Transcribed: 11/02/17 1015 Price Checker: HANG Epps VENOUS DUPLEX LOWER Observed: 10/27/2017 Status: F Source: [place] EXTREMITY 9:32 PM [facility] [place] [facility] Cardiovascular Services [address] [place] [id number] Venous Duplex US - Max Extrem 10/27/17 1319 MR#: [id number] Acct: [id number] Name: GARCÍA BURROWS Rep #: [id number] : 1950 66 From: Sarabjit Chi MD Attending Dr: Aroldo Sharma DPM Status: REG RCR Ordering Dr: Aroldo Sharma DPM Date: 10/27/17 Location: CVS Sex: F C Admitted: Reason For Study: Non-healing wound - Edema RIGHT LEFT CFV is compressible, spontaneous, phasic, CFV is compressible, spontaneous, phasic, competent and demonstrates normal competent, and demonstrates normal augmentation. augmentation. FV is compressible, spontaneous, phasic, FV is compressible, spontaneous, phasic, competent and demonstrates normal competent and demonstrates normal augmentation. augmentation. POP V is compressible, spontaneous, phasic, POP V is compressible, spontaneous, phasic, competent and demonstrates normal competent and demonstrates normal augmentation. augmentation. T/P Trunk is compressible. T/P Trunk is compressible. PTV is compressible. PTV is compressible. GSV absent due to stripping GSV absent s/p stripping ASV at groin is INCOMPETENT with reflux ASV at groin INCOMPETENT with reflux greater greater than .5 sec.and diameter of .43 than .5 sec and diameter of .49 x .51 cm x .45 cm SSV is competent. SSV is INCOMPETENT with reflux greater than .5 sec and diameter of .38 x .36 cm. Procedure Exam performed in department. A preliminary report was called and/or faxed to [facility]. Interpretation Summary Deep veins of the lower extremities are bilaterally patent and compressible segmentally. There is no evidence of deep vein thrombosis on either side. Valvular competence appears intact within the proximal deep venous systems bilaterally. Great saphenous veins are absent bilaterally due to stripping. The right small saphenous vein is patent and incompetent. The left small saphenous vein is patent and competent. The right accessory saphenous vein at the groin is incompetent. The left accessory saphenous vein at the groin is incompetent. Ordering Physician: Aroldo Sharma Referring Physician: Aroldo Sharma Performed By: Patito Grajeda RVT 10/27/172131 Date Sarabjit Chi MD CC: EMELIA Sharma; Albert House MD Date Dictated: 10/27/17 1319 Date Transcribed: 10/27/172131 Price Checker: Signed CARDIOLOGY VISIT Observed: 10/20/2017 Status: F Source: [place] REPORT 11:41 AM [facility] [place] [facility] [address] [place] [address] OFFICE VISIT Date of Service: 10/20/17 MR#: [id number] Acct: [id number] Name: GARCÍA BURROWS Rep #: [id number] : 1950 Provider: Imer Alvarado MD Age/Sex: 66/F [place] [facility] [place] Status: Signed HPI HPI Details: GARCÍA BURROWS, is a 66 F who presents to the office today for for outpatient cardiovascular follow-up. Since her last visit of 10/17/2016 she states she has been doing reasonably well from a cardiac standpoint and has not required any additional cardiovascular diagnostic studies or therapeutic intervention. She has denied ongoing chest discomfort. There has been no orthopnea or PND. She does have an element of chronic bilateral lower extremity peripheral pitting edema. There is been no near syncope or syncope. She states she is being evaluated by the [facility] wound center for a sore on her right lower extremity. She states she is following with her primary care physician for her lipid profile. She notes this is done routinely. She did have a transthoracic echocardiogram performed at [facility] on 07/30/2016. The results are as noted below. Left ventricular systolic function is normal. The estimated ejection [id number] %. The left atrium is severely enlarged. There is mild mitral annular calcification. Mild diffuse mitral valve thidkening. Extension of the mitral annular calcification Onto the posterior mitral valve leaflet. Mild mitral valve stenosis. Mild-Moderate (1-2+) eccentric mitral valve insufliciency. Trivial tricuspid valve insuThciency. Mild aortic stenosis. Mild (l+)pulmonic valve insufficiency. Trivial pericardial effusion. There are no echocardiographic indications Of cardiac tamponade. Right ventricular systolic pressure estimated to be 54 rnmHg. Transmitral diastolic flow velocities suggest diastolic dysfunction (seudononnal pattern). Intake Vital Signs10/20/17 Height 5 ft 4 in 10/20/17 Weight: 195 lb 10/20/17 Body Mass Index (BMI) 33.5 10/20/17 Blood Pressure 138/70 Intake Visit Reasons: 1 Y FU Allergies lisinopril Adverse Reaction (Intermediate, Verified 10/20/17 11:01) Unknown penicillin G Adverse Reaction (Intermediate, Verified 10/20/17 11:01) Unknown exenatide [From Byetta] Adverse Reaction (Unknown, Verified 10/20/17 11:01) Unknown Medications Aspirin [Aspirin, Baby] 81 mg PO DAILY@0800 03/24/15 [History Confirmed 10/20/17] Escitalopram Oxalate [Lexapro] 10 mg PO DAILY 03/24/15 [History Confirmed 10/20/17] Lisinopril [Zestril] 5 mg PO DAILY 03/24/15 [History Confirmed 10/20/17] Montelukast [Singulair] 10 mg PO DAILY 03/24/15 [History Confirmed 10/20/17] Multivitamins,Ther W-Minerals [Multivitamin With Minerals] 1 tab PO DAILY 03/24/15 [History Confirmed 10/20/17] Omeprazole [Prilosec] 40 mg PO DAILY 03/24/15 [History Confirmed 10/20/17] Pravastatin [Pravachol] 20 mg PO QHS 03/24/15 [History Confirmed 10/20/17] Metformin HCl [Glucophage] 500 mg PO BIDCM #0 08/02/16 [Rx Confirmed 10/20/17] Cholecalciferol (VIT D3) [Vitamin D3] 1,000 unit PO DAILY 11/22/16 [History Confirmed 10/20/17] amlodipine 5 mg tablet 5 mg PO DAILY tab 09/03/17 [History Confirmed 10/20/17] traMADol [Ultram (G)] 50 mg PO Q4H PRN PRN 10/09/17 [History Confirmed 10/20/17] gabapentin 300 mg capsule 600 mg PO QHS cap 10/20/17 [History Confirmed 10/20/17] polysaccharide iron complex 150 mg iron capsule 150 mg PO QDAY cap 10/20/17 [History Confirmed 10/20/17] PFSH Medical History Nonrheumatic aortic (valve) stenosis (Chronic) Nonrheumatic mitral (valve) stenosis (Chronic) Hyperlipidemia (Acute) Other secondary pulmonary hypertension (Acute) Hypertension (Chronic) Murmur, cardiac (Acute) Anemia (Acute) Asthma (Acute) Depression (Acute) GERD (gastroesophageal reflux disease) (Acute) Hypoxia (Acute) Left carotid bruit (Acute) Neuropathic pain (Acute) CHIDI (obstructive sleep apnea) (Acute) Type 2 diabetes mellitus (Acute) Vertigo (Acute) History of partial colectomy (Resolved) Anemia (Inactive) Aortic stenosis (Inactive) Asthma (Inactive) Concussion (Inactive) Depression (Inactive) Diabetes (Inactive) Diabetes (Inactive) Fall with injury (Inactive) Fracture of hip, left, closed (Inactive) GERD (gastroesophageal reflux disease) (Inactive) Hyperlipidemia (Inactive) Hypoxia (Inactive) Mitral stenosis (Inactive) Nausea (Inactive) Neuropathic pain (Inactive) CHIDI (obstructive sleep apnea) (Inactive) Obstructive sleep apnea (Inactive) Pneumococcal pneumonia (Inactive) S/P ORIF (open reduction internal fixation) fracture (Inactive) Vertigo (Inactive) Surgical History History of cholecystectomy (Resolved) History of hernia repair (Resolved) History of total left knee replacement (Resolved) Family History Sister CAD (coronary artery disease) Hx of CABG Social History Smoking Status: Former smoker alcohol intake: never ROS Const Const: Negative for fatigue, weakness, weight gain, weight loss, frequent falls or excessive sweating Eyes Eyes: Negative for change in vision, blurry vision or transient loss of vision ENT ENT: Positive for balance problems (patient ambulates with a wheeled walker); negative for dizziness Cardio Chest Pain: No Edema: None, Right Muscle aches with walking: None Resp Respiratory: Negative for SOB with activity or SOB at rest GI GI: Negative vomiting or vomiting blood/hematemesis : Negative for hematuria Musc Musc: Positive for balance problems (patient ambulates with a wheeled walker); negative for muscle aches/ myalgia, muscle weakness or joint pain Skin Skin: Positive for wounds (diabetic ulcer to Rt LE, patient is going Wound Center for tx); negative non-healing lesions or rash Neuro Neuro: Negative for weakness, blurry vision, dizziness, lightheadedness, frequent falls or orthostatic symptoms Sabino Hematologic/Lymphatic: Negative for easy bleeding Endo Endo: Negative for fatigue or excessive sweating Psych Psych: Negative for anxiety or depression Allergy Allergy/Immunology: Negative for hives, Negative for rash Cardiology Exam Const Appearance: cooperative, healthy appearing, comfortable, no acute distress, well developed and well groomed Nutritional Appearance: overweight Orientation: alert, awake and oriented x3 Head Head: normal to inspection, normocephalic and atraumatic Ears: hearing grossly normal bilaterally Nose: external nose normal Mouth: oral mucosae normal Teeth and gingiva: fair dentition Eyes General: appearance normal, both eyes and all related structures Eyelids: eyelids normal Conjunctivae: conjunctivae normal Pupils: PERRL EOM: EOM intact bilaterally Neck Neck: normal visual inspection Carotids: normal carotid upstroke Chest Chest inspection: normal inspection of the chest and symmetric chest movement Auscultation: Bilateral: Clear to Auscultation Cardio Palpation: normal PMI Rhythm: regular rhythm Heart sounds: S1 normal and S2 normal Murmur: Grade 3/6, harsh, mid systolic, LLSB, apex, axilla, LVOT, sternal notch and radiates to carotids GI GI: normal to inspection, soft, no hepatosplenomegaly and bowel sounds present Neuro General: alert, awake and oriented x3 Extremities Pulses: Normal: Right Radial Pulse, Left Radial Pulse Lower Extremity Edema: +1: Bilateral Musculoskel Walks with a walker Psych Psychological: normal affect Assessment AND Plan 1. Nonrheumatic aortic (valve) stenosis I35.0 Plan At the present time she continues with a history of underlying aortic valve stenosis. She is being followed by history exam and echocardiographic studies. This will be followed with an upcoming echocardiogram to monitor for any significant change in her aortic valve anatomy and physiology that would warrant further evaluation and care. Orders Orders: 2. Nonrheumatic mitral (valve) stenosis I34.2 Plan She does have a history of mitral valve stenosis with mitral valve regurgitation as described above. Again this is going to be followed by history, exam, and echocardiographic studies to monitor for any obvious changes were regarding the need for further evaluation and care. Orders Orders: 3. Other secondary pulmonary hypertension I27.29 Plan She does have a history of pulmonary hypertension. Based on her previous echo cardiographic studies her estimated right ventricular systolic pressure was 54 mmHg. This will be followed with an echocardiogram. This will help give guidance with respect to further evaluation and care. Orders Orders: 4. Hyperlipidemia, unspecified hyperlipidemia type E78.5 Plan She states her lipids are being followed by her primary care physician. She believes they have been under good control. 5. Hypertension, unspecified type I10 Plan Her blood pressure appears to be reasonably well-controlled at this time. She will continue her current medical management and follow-up. 6. Murmur, cardiac R01.1 Plan Her cardiac murmur appears similar to her previous outpatient cardiovascular evaluation. However based upon her underlying valvular heart disease and Plan Detail Additional Comments Otherwise she will be scheduled for an outpatient visit approximately 1 year unless needed sooner. Thank you for allowing me to participate in the care of your patient. Please don't hesitate to call if any issues arise. This note was generated using a voice recognition system and there may be incorrect words, spelling or punctuation that were not noted when reviewing the office note prior to saving. Follow Up 1 Year Coding Level of Care Code Off vis,est,level 4 Diagnoses Nonrheumatic aortic (valve) stenosis I35.0 Nonrheumatic mitral (valve) stenosis I34.2 Other secondary pulmonary hypertension I27.29 Hyperlipidemia, unspecified hyperlipidemia type E78.5 Hyperlipidemia type: unspecified Hypertension, unspecified type I10 Hypertension type: unspecified Murmur, cardiac R01.1 Time Spent (min) 30 Coding Level of Care Code Off vis,est,level 4 Diagnoses Nonrheumatic aortic (valve) stenosis I35.0 Nonrheumatic mitral (valve) stenosis I34.2 Other secondary pulmonary hypertension I27.29 Hyperlipidemia, unspecified hyperlipidemia type E78.5 Hyperlipidemia type: unspecified Hypertension, unspecified type I10 Hypertension type: unspecified Murmur, cardiac R01.1 Time Spent (min) 30 10/20/17 1141 <Electronically signed by Imer Alvarado MD> Date Imer Alvarado MD Cosigner Signature: Date (if applicable) CC: Albert House MD WOUND CTR HISTORY Observed: 10/09/2017 Status: F Source: [facility]GEL AND PHYSICAL 1:49 PM [facility] [place] [facility] Wound Healing Center [facility] [place] [address] Wound Ctr History AND Physical 10/09/17 1325 MR#: [id number] Acct: [id number] Name: GARCÍA BURROWS Rep #: [id number] : 1950 66 From: Aroldo Sharma DPM PCP: Albert House MD, Chi Status: REG RCR Y Location: WC (1) Ulcer of right lower extremity with fat layer exposed Status: Acute Current Visit: Yes Code(s): L97.912 - Non- pressure chronic ulcer of unspecified part of right lower leg with fat layer exposed (2) Type 2 diabetes mellitus without complications Status: Acute Current Visit: Yes Code(s): E11.9 - Type 2 diabetes mellitus without complications (3) PVD (peripheral vascular disease) Status: Acute Current Visit: Yes Code(s): I73.9 - Peripheral vascular disease, unspecified (4) Lower extremity edema Status: Acute Current Visit: Yes Code(s): R60.0 - Localized edema (5) Delayed wound healing Status: Acute Current Visit: Yes Code(s): T14.8XXD - Other injury of unspecified body region, subsequent encounter History of Present Illness Date of Service: 10/09/17 Chief Complaint: non healing right lower leg ulcer History of Wound: This 66 year old diabetic female was referred to the wound healing center for a non healing ulcer to the right lateral lower leg. The patient says she is unsure the exact amount of time the ulcer has been opened, but says it is around 3 months. She says she has not done anything yet on her own to treat the ulcer. She says there was no trauma or injury that caused the ulcer. She says that she has always had swelling in her lower legs and she does not routinely keep compression on her legs. She has not done anything to treat the area on her own other than keeping the ulcer covered. She denies any pus to the area or any extending redness. She currently denies any feelings of nausea, vomiting, fever, or chills. Past Medical History Past Medical History: Chronic Problems (Last Updated 09/03/17 @ 12:31 by Rose Mary Taylor) Nonrheumatic aortic (valve) stenosis (Chronic) Nonrheumatic mitral (valve) stenosis (Chronic) Hypertension (Chronic) Surgical History: no surgical history Allergies/Adverse Reactions: Allergies lisinopril Adverse Reaction (Intermediate, Verified 10/09/17 09:47) Unknown penicillin G Adverse Reaction (Intermediate, Verified 09/03/17 12:13) Unknown exenatide [From Byetta] Adverse Reaction (Unknown, Verified 10/09/17 09:47) Unknown Home Medications: Ambulatory Orders Medication Instructions Recorded Aspirin [Aspirin, Baby] 81 mg PO DAILY@0800 03/24/15 Escitalopram Oxalate [Lexapro] 10 mg PO DAILY 03/24/15 - Family History Maternal Family History: Family History (Last Updated 09/03/17 @ 12:31 by Rose Mary Taylor) Sister CAD (coronary artery disease) Hx of CABG No pertinent history Paternal Family History: Family History (Last Updated 09/03/17 @ 12:31 by Rose Mary Taylor) Sister CAD (coronary artery disease) Hx of CABG No pertinent history Smoking Status: Former smoker Review of Systems Constitutional: Denies: Chills, Fever, Weight Change Cardiovascular: Denies: Chest Pain, Palpitations Respiratory: Denies: Cough, Shortness of Breath Gastrointestinal: Denies: Diarrhea, Nausea, Vomiting Musculoskeletal: Reports: Leg Pain Skin: Reports: Wounds Hematologic/ Lymphatic: Denies: Easy Bruising, Easy Bleeding - Physical Exam Vital Signs Temp Pulse Resp BP 98 F 74 18 124/65 H 10/09/17 09:26 10/09/17 09:26 10/09/17 09:26 10/09/17 09:26 General: Alert, Oriented x3, Cooperative, No apparent distress Extremities: Capillary Refill Less than 3 Seconds, No Calf Tenderness - negative eileen and morton sign bilateral, Diminished Peripheral Pulses - DP pulse intact bilateral and PT pulse non palpable bilateral due to edema, Edema - bilateral lower extremity pitting edema with right being slightly worse than left Skin: Ulcer/ Wound - Chronic ulcer to right lower leg with dimensions noted below. Ulcer base is mixture of grandular tissue, adherent slough, fibrin, biofilm, and some hyperkeratotic tissue. There is no undermining, no probing, and no tracking noted. Serous drainage noted. No malodor, no extending cellulitis, no significant increase in warmth. No purulence. Wound Measurements and Assessment WC - Nurse 1 - General Ulcer Measurement Start: 10/09/17 09:03 Freq: Status: Active Protocol: Activity Type Activity Date Activity User E-Sign Co-Sign Detail Recorded Client Recorded Date Recorded By Document 10/09/17 09:26 DL [id number] 10/09/17 09:44 DL Wound Center Nurse 1 [Ulcer Assessment] #1 R Lat Barrientos -Current Size (cm) - Length 3.8 -Current Size (cm) - Width 3.5 -Current Size (cm) - Depth 0.1 -Total Square Cm 13.30 WC - Nurse 2 - General Ulcer CM Notes Start: 10/09/17 09:03 Freq: Status: Active Protocol: Activity Type Activity Date Activity User E-Sign Co-Sign Detail Recorded Client Recorded Date Recorded By Document 10/09/17 10:22 MW [id number] 10/09/17 10:32 MW Musculoskeletal: Tenderness - to aforementioned ulcer site Neurological: Sensory exam intact to light touch and pain Psych/Mental Status: Normal Affect, Appropriate Debridement Note Post-Debridement Measurements/Treatment WC - Nurse 2 - General Ulcer CM Notes Start: 10/09/17 09:03 Freq: Status: Active Protocol: Activity Type Activity Date Activity User E-Sign Co-Sign Detail Recorded Client Recorded Date Recorded By Document 10/09/17 10:22 MW [id number] 10/09/17 10:32 MW Wound Center Nurse 2 #1 R Lat Barrientos -Time 10:23 -Correct Patient Yes -Correct Side, Site, Position Yes Wound debrided: right lower leg Laterality: Right Wound Grade/Stage: 1 Type of Debridement: Excisional debridement Anesthesia Used: 4% Lidocaine Solution Depth: in the subcutaneous layer Percentage of wound debrided: 100 Instrument Used: 3mm curette Tissue Removed: adherent slough, fibrin, hyperkeratotic tissue, biofilm Severity: Fat Layer Exposed Amount of bleeding with debridement: Mild Bleeding Controlled with: Pressure Patient tolerated procedure well Assessment/Plan Active Problems (Last Updated 09/03/17 @ 12:31 by Rose Mary Taylor) Ulcer of right lower extremity with fat layer exposed (Acute) Type 2 diabetes mellitus without complications (Acute) PVD (peripheral vascular disease) (Acute) Lower extremity edema (Acute) Delayed wound healing (Acute) Assessment: Ulcer right lower leg, DM II, PVD Plan: Initial patient examination and evaluation was performed. Subcutaneous debridement was performed as described in the clinical panel. Following debridement, the ulcer site was carefully cleansed. Silvercel was then applied to the ulcer base followed by dry sterile dressing with compression applied by spandigrip. The patient is to undergo daily dressing changes in this manner. The patient was educated on the importance of keeping compression to the area. The patient is also to keep the ulcer site offloaded at all times making an effort to keep pressure off of the area. The patient says she recently had lab work taken at Dr. House's office and we will contact his office to get a copy of this. LEAS and bilateral venous Doppler exams were ordered today. These results will be reviewed prior to the patient's next visit. I recommend nutritional supplementation with a high- protein diet to optimize healing. The patient was educated on all signs and symptoms of local and systemic infection, and she was noted to go to the emergency room immediately should she notice any. All other questions and concerns were answered to the patient's satisfaction today. Patient will follow-up in clinic in 1 week or sooner if needed. 10/09/17 1349 <Electronically signed by Aroldo Sharma DPM> Date Aroldo Sharma DPM CC: Signed CBC W/DIFF, AUTOMATED Collected: 09/29/2017 Status: F Source: [place] 2:45 PM [facility] [place] CODE TESTS RESULT OUT OF RANGE REFERENCE UNITS LAB L100.1000 4.4-11.0 K/mm3 Normal WBC 5.7 LAB L100.1200 4.2-5.4 M/mm3 Low RBC 4.09 LAB L100.1300 12.0-15.0 g/dl Low HGB 10.2 LAB L100.1400 37-47 % Low HCT 33.9 LAB L100.1500 81-99 fL Normal MCV 82.9 LAB L100.1600 27.0-32.0 pg Low MCH 24.9 LAB L100.1700 32-36 g/gl Low MCHC 30.1 LAB L100.1810 11.6-14.6 % High RDW CV 15.8 LAB L100.1820 35.1-43.9 fl High RDW SD 47.8 LAB L100.1900 150-450 K/mm3 Normal PLT 216 LAB L100.2000 6.2-12.0 fl Normal MPV 11.4 LAB L100.2100 47-70 % Normal NEUT% 62.4 LAB L100.2200 19-41 % Normal LY% 26.0 LAB L100.2300 0-10 % Normal MONO% 9.8 LAB L100.2400 0-5 % Normal EO% 1.4 LAB L100.2500 0-1 % Normal BASO% 0.4 LAB L100.2550 0.0-0.9 % Normal IM GRAN % 0.000 Result Comment: IG% - Immature Granulocytes (promyelocytes, myelocytes and metamyelocytes) > 1% indicates that a LEFT SHIFT is Present. LAB L100.2620 2.0-7.7 X10 3/uL Normal Absolute Neut 3.6 LAB L100.2720 0.83-4.51 X10 3/ul Normal Absolute Lymph 1.48 Performed By: #### L100.0100 #### [facility] [address] [place], [place], [address] VITAMIN D,25 HYDROXY Collected: 09/29/2017 Status: F Source: [place] 2:45 PM [facility] [place] CODE TESTS RESULT OUT OF REFERENCE UNITS RANGE LAB L506.1000 29.95-100.01 ng/mL Low Vitamin D 28.5 25-OH Result Comment: Vitamin D 25(OH) Status Range Deficiency <20 ng/mL (50nmol/L) Insuffciency 20 - 30 ng/mL (50 - 75 nmol/L) Sufficiency 30 - 100 ng/mL (75 - 250 nmol/L) Toxicity >100 ng/mL (>250 nmol/L) Performed By: #### L506.1000 #### [facility] [address] [place], [address] COMPREHENSIVE METABOLIC Collected: 09/29/2017 Status: F Source: [facility] 2:45 PM [facility] [place] TYPE CODE TESTS RESULT OUT OF RANGE REFERENCE UNITS LAB L501.0100 74-106 mg/dL Normal GLU 85 Result Comment: Please note revised GLUCOSE reference range effective 2017. LAB L501.1000 7-18 mg/dL High BUN 23 LAB L501.1100 0.55-1.02 mg/dL Normal CREAT,SERUM 0.84 Result Comment: The validity of the calculated GFR AND GFRAA in patients over 70 years has not been determined. Clinical correlation is essential. LAB L501.1110 >60 mL/min Normal EST GFR 72 Result Comment: Non- GFR Calc LAB L501.1115 >60 mL/min Normal EST GFR - AA 87 Result Comment: GFR Calc LAB L501.1300 10-20 RATIO High BUN/CRE 27.4 LAB L501.1500 6.4-8.2 g/dL Low T PROT 5.8 LAB L501.1800 3.2-5.0 g/dL Low ALB 2.6 LAB L501.1950 2.2-4.2 g/dL Normal GLOB 3.2 LAB L501.2000 0.9-2.4 RATIO Low A/G 0.8 LAB L501.2200 8.5-10.1 mg/dL Low CA 8.3 LAB L501.4100 15-37 U/L Normal AST 20 LAB L501.4305 45-117 U/L Normal ALK P 105 LAB L501.4405 13-56 U/L Normal ALT 21 Result Comment: Please note revised ALT reference range effective 2017. LAB L501.4600 0.20-1.00 mg/dL Normal T BILI 0.50 LAB L501.5300 136-145 mmol/L Normal NA 142 LAB L501.5600 3.5-5.1 mmol/L Normal K 4.3 LAB L501.5900 98-107 mmol/L Normal CL 105 LAB L501.6100 21.0-32.0 mmol/L Normal CO2 30.0 LAB L501.6200 5-15 Normal GAP 7 Performed By: #### L500.4050, L501.9520 #### [facility] [address] [place], [place], [address] THYROID STIM HORMONE Collected: 09/29/2017 Status: F Source: [place] ([facility]) 2:45 PM [facility] [place] TYPE CODE TESTS RESULT OUT OF RANGE REFERENCE UNITS LAB L501.9520 0.358-3.74 uIU/mL Normal TSH 1.00 Performed By: #### L500.4050, L501.9520 #### [facility] [address], [place], [address] ALLERGIES ALLERGIES DATE TYPE / CODE NAME / CODE REACTION SEVERITY SOURCE 04/03/2018 Drug lisinopril/D19032 Unknown [place] Allergy/416 0658(RXNORM) [facility] 352126([facility]) Repository 04/03/2018 Drug penicillin Unknown [place] Allergy/416 G/[id number](RXNO [facility] 112213([facility] ED CT) Repository 04/03/2018 Drug exenatide/U326155 Unknown Unknown [place] Allergy/416 772(RXNORM) [facility] 302433([facility] ED CT) Repository ENCOUNTERS ENCOUNTERS ADMIT/DISCHARGE ACCOUNT ADMITTING ENCOUNTER LOCATION SOURCE NUMBER CLASS 07/27/2018 [id number] Ambulatory [place] Angel 2 [facility] ing:SP Repository 07/23/2018 [id number] Ambulatory [place] 9 [facility] ing:WC Repository 07/18/2018/ [id number] Agyepong, Inpatient Angel [place] 9 3 [place] Encounter [facility] ing:PCURoom: Repository [id number]: 1 07/18/2018 [id number] [place], Ambulatory BMSBuilding:B [place] 1 [place] Repository 07/18/2018 [id number] [place], Ambulatory BMSBuilding:B [place] 1 [place] [facility] Repository 07/18/2018 [id number] [place], Ambulatory BMSBuilding:B [place] 9 [place] [facility] Repository 07/18/2018 [id number] [place], Ambulatory BMSBuilding:B Angel 5 [place] [facility] Repository 07/02/2018/ [id number] Ambulatory [place] 8 5 [facility] ing:WC Repository 06/26/2018 [id number] Ambulatory Angel Angel 7 [facility] Hospital ing:RAD Repository 06/22/2018 [id number] Ambulatory [place] 0 [facility] ing:RAD Repository 06/17/2018 [id number] Ambulatory [place] 7 [facility] Hospital ing:MRI Repository 06/16/2018 [id number] Ambulatory [place] Angel 1 [facility] Hospital ing:LABSPEC Repository 06/09/2018 [id number] Ambulatory Angel Angel 8 [facility] ing:RAD Repository 06/04/2018/ [id number] Ambulatory [place] Angel 8 7 [facility] ing:WC Repository 04/15/2018 [id number] Ambulatory [place] 3 [facility]POLAB3 Repository 04/08/2018 [id number] Ambulatory [place] 9 [facility] ing:MEDOUTP Repository 04/06/2018 [id number] Ambulatory [place] Angel 5 [facility] ing:MEDOUTP Repository 04/03/2018 [id number] Ambulatory [place] 5 [facility] ing:MEDOUTP Repository 04/01/2018 [id number] Ambulatory Angel Angel 3 [facility] ing:MEDOUTP Repository 03/30/2018 [id number] Ambulatory [place] Angel 1 [facility] ing:MEDOUTP Repository 03/17/2018 [id number] Ambulatory [place] 1 [facility] ing:WC Repository 02/05/2018/ [id number] Ambulatory [place] Angel 8 7 [facility] ing:WC Repository 01/20/2018 [id number] Ambulatory [place] 8 [facility] ing:LAB.FUTUR Repository E 01/19/2018 [id number] Ambulatory [place] Angel 7 [facility] ing:LAB.FUTUR Repository E 01/15/2018 [id number] Ambulatory Angel [place] 2 [facility] ing:LAB Repository 01/15/2018/ [id number] Ambulatory [place] 8 0 [facility] ing:WC Repository 01/01/2018/ [id number] Ambulatory [place] 8 8 [facility] ing:WC Repository 12/05/2017 [id number] Ambulatory [place] Angel 1 [facility] ing:MTLAB Repository 12/04/2017/ [id number] Ambulatory [place] 8 8 [facility] ing:WC Repository 11/11/2017 [id number] Ambulatory [place] 9 [facility] ing:POLAB3 Repository 11/06/2017 [id number] Ambulatory [place] 6 [facility] ing:CVS Repository 11/06/2017 [id number] Ambulatory BMSBuilding:W [place] 6 [facility] Repository 10/30/2017/ [id number] Ambulatory [place] Angel 8 9 [facility] ing:WC Repository 10/20/2017/ [id number] Ambulatory BMSBuilding:B [place] 8 5 [facility] Repository 09/29/2017 [id number] Ambulatory [place] 8 [facility] ing:POLAB3 Repository 09/03/2017 [id number] Ambulatory BMSBuilding:B Angel 5 [facility] Repository PAYERS PAYERS ENCOUNTER GUARANTOR PAYER SUBSCRIBER SOURCE 07/27/2018 GARCÍA Baig [id number] Primary GARCÍA A [place] Insurance:MEDICARE PERRYDOB: [place] PART A [facility] [id number] Hospital [address]Dlr: (330) Number: Repository [phone] ( [id number] Date:2013-11-04 07/27/2018 Secondary GARCÍA A Angel Insurance:MEDICAL PERRYDOB: [facility] [id number] Hospital Number: Repository [id number] Date:1370-28-86OK[address] [address]IE: 07/27/2018 Tertiary NOT GIVENUNK [place] Insurance:SELF PAY [facility] Number: Effective Repository Date:2018-07-14 07/23/2018 GARCÍA Baig [id number] Primary GARCÍA A [place] Insurance:MEDICARE PERRYDOB: [place] [facility] [id number] Hospital 60[address]Ruq: (330) Number: Repository [phone] ( [id number] Date:2018-05-14 07/23/2018 Secondary GARCÍA A Angel Insurance:MEDICAL PERRYDOB: [facility] [id number] Hospital Number: Repository [id number] Date:2556-40-61HX[address] [address]YN: 07/23/2018 Tertiary NOT GIVENUNK [place] Insurance:SELF PAY [facility] Number: Effective Repository Date:2018-07-07 07/18/2018 GARCÍA STATON Primary GARCÍA [place] Insurance:MEDICARE PERRYDOB: [place] [facility] [id number] Hospital [address]Yfk: (330) Number: Repository [phone] () [id number] Date:2018-07-18 07/18/2018 Secondary GARCÍA Baig [place] Insurance:MEDICAL PERRYDOB: [facility] [id number] Hospital Number: Repository [id number] Date:1002-97-04FN [address] [address]XK: 07/18/2018 Tertiary NOT GIVENUNK [place] Insurance:SELF PAY [facility] Number: Effective Repository Date:2018-07-18 07/18/2018 GARCÍA AVILA21 Primary GARCÍA [place] Insurance:MEDICARE PERRYDOB: [place] [facility] [id number] Hospital [address]Aal: (330) Number: Repository [phone] () [id number] Date:2018-07-18 07/18/2018 Secondary GARCÍA Baig [place] Insurance:MEDICAL PERRYDOB: [facility] [id number] Hospital Number: Repository [id number] Date:0745-66-25ML [address] [address]YL: 07/18/2018 Tertiary NOT GIVENUNK Angel Insurance:SELF PAY [facility] Number: Effective Repository Date:2018-07-18 07/18/2018 GARCÍA STATON Primary [place]A [place] Insurance:MEDICARE PERRYDOB: [place] [facility] [id number] Hospital [address]Jyn: (330) Number: Repository [phone] () [id number] Date:2018-07-18 07/18/2018 Secondary GARCÍA Baig [place] Insurance:MEDICAL PERRYDOB: [facility] [id number] Hospital Number: Repository [id number] Date:0081-33-15[address] [place] [address]UO: 07/18/2018 Tertiary NOT GIVENUNK Angel Insurance:SELF PAY [facility] Number: Effective Repository Date:2018-07-18 07/18/2018 GARCÍA [id number] Primary GARCÍA [place] Insurance:MEDICARE PERRYDOB: [place] [facility] [id number] Hospital [address]Rva: (330) Number: Repository [phone] () [id number] Date:2018-07-18 07/18/2018 Secondary GARCÍA Baig [place] Insurance:MEDICAL PERRYDOB: [facility] [id number] Hospital Number: Repository [id number] Date:1405-57-06WC[address] [address]AS: 07/18/2018 Tertiary NOT GIVENUNK Angel Insurance:SELF PAY [facility] Number: Effective Repository Date:2018-07-18 07/18/2018 GARCÍA [id number] Primary GARC[place]A [place] Insurance:MEDICARE PERRYDOB: [place] [facility] [id number] Hospital [address]Ivq: (330) Number: Repository [phone] () [id number] Date:2018-07-18 07/18/2018 Secondary GARCÍA Baig [place] Insurance:MEDICAL PERRYDOB: [facility] [id number] Hospital Number: Repository [id number] Date:3825-23-37EL [address] [address]US: 07/18/2018 Tertiary NOT GIVENUNK [place] Insurance:SELF PAY [facility] Number: Effective Repository Date:2018-07-18 07/02/2018 GARCÍA [id number] Primary [place]ARCÍA A [place] Insurance:MEDICARE PERRYDOB: [place] [facility] [id number] Hospital [address]Rpw: (330) Number: Repository [phone] () [id number] Date:2018-05-14 07/02/2018 Secondary GARCÍA A Angel Insurance:PAWEL VILLARREAL PERRYDOB: [facility] SUPPLEMENT [id number] Repository Number: [id number] Date:9095-98-52YLDMTM AN [facility] [address] [address], [place] [address]AJ: 07/02/2018 Tertiary NOT GIVENUNK Angel Insurance:SELF PAY [facility] Number: Effective Repository Date:2018-06-06 06/26/2018 GARCÍA [id number] Primary GARCÍA Ort[place] Insurance:MEDICARE PERRYDOB: [place] [facility] [id number] Hospital 923[address]Plg: (330) Number: Repository [phone] () [id number] Date:2018-06-09 06/26/2018 Secondary GARCÍA A [place] Insurance:PAWEL VILLARREAL PERRYDOB: [facility] [id number] Memorial Hospital Repository Number: [id number] Date:7909-51-51TXPJNB AN [facility] [address] [address], [place] [address]XR: 06/26/2018 Tertiary NOT GIVENUNK Angel Insurance:SELF PAY [facility] Number: Effective Repository Date:2018-06-09 06/22/2018 GARCÍA [id number] Primary GARCÍA A Angel [place] Insurance:MEDICARE PERRYDOB: [place] [facility] [id number] Hospital [address]Mfu: (330) Number: Repository [phone] () [id number] Date:2018-06-09 06/22/2018 Secondary GARCÍA A Angel Insurance:PAWEL VILLARREAL PERRYDOB: Community SUPPLEMENT [id number] Memorial Hospital Repository Number: [id number] Date:1318-93-53AHATOG AN [facility] [address] [address], [place] [address]OF: 06/22/2018 Tertiary NOT GIVENUNK Angel Insurance:SELF PAY [facility] Number: Effective Repository Date:2018-06-09 06/17/2018 GARCÍA [id number] Primary GARCÍA [place] Insurance:MEDICARE PERRYDOB: [place] [facility] [id number] Hospital [address]Zft: (330) Number: Repository [phone] () [id number] Date:2018-06-11 06/17/2018 Secondary GARCÍA A Angel Insurance:CIGNA MCR PERRYDOB: Community SUPPLEMENT [id number] Memorial Hospital Repository Number: [id number] Date:9000-96-24WXQILR AN [facility] [address] [address], [place] [address]PR: 06/17/2018 Tertiary NOT GIVENUNK Angel Insurance:SELF PAY [facility] Number: Effective Repository Date:2018-06-11 06/16/2018 GARCÍA [id number] Primary GARCÍA [place] Insurance:MEDICARE PERRYDOB: [place] [facility] [id number] Hospital [address]Nnw: (330) Number: Repository [phone] () [id number] Date:2018-06-16 06/16/2018 Secondary GARCÍA A Angel Insurance:CIGNA MCR PERRYDOB: Community SUPPLEMENT [id number] Memorial Hospital Repository Number: [id number] Date:8707-45-41HZBCPV AN [facility] [address] [address], [place] [address]QY: 06/16/2018 Tertiary NOT GIVENUNK [place] Insurance:SELF PAY [facility] Number: Effective Repository Date:2018-06-16 06/09/2018 GARCÍA AVILA21 Primary [place]A [place] Insurance:MEDICARE PERRYDOB: [place] [facility] [id number] Hospital [address]Gsx: (330) Number: Repository [phone] () [id number] Date:2018-06-09 06/09/2018 Secondary GARCÍA A Angel Insurance:PAWEL VILLARREAL PERRYDOB: [facility] [id number] Memorial Hospital Repository Number: [id number] Date:1814-52-83XCVNTM AN [facility] [address] [address], [place] [address]VS: 06/09/2018 Tertiary NOT GIVENUNK [place] Insurance:SELF PAY [facility] Number: Effective Repository Date:2018-06-09 06/04/2018 GARCÍA [id number] Primary [place]A [place] Insurance:MEDICARE PERRYDOB: [place] [facility] [id number] Hospital [address]Oik: (330) Number: Repository [phone] () [id number] Date:2018-05-14 06/04/2018 Secondary GARCÍA A [place] Insurance:PAWEL VILLARREAL PERRYDOB: [facility] [id number] Memorial Hospital Repository Number: [id number] Date:6619-24-20YHTMAI AN [facility] [address] [address], [place] [address]HC: 06/04/2018 Tertiary NOT GIVENUNK [place] Insurance:SELF PAY [facility] Number: Effective Repository Date:2018-05-14 04/15/2018 GARCÍA Baig [id number] Primary GARCÍA Ort[place] Insurance:MEDICARE PERRYDOB: [place] [facility] [id number] Hospital [address]Sdk: (330) Number: Repository [phone] () [id number] Date:2018-04-15 04/15/2018 Secondary GARCÍA A [place] Insurance:CIGNA PHIL PERRYDOB: Community SUPPLEMENT [id number] Memorial Hospital Repository Number: [id number] Date:5512-96-18EBWLPN AN [facility] [address] [address], [place] [address]LJ: 04/15/2018 Tertiary NOT GIVENUNK [place] Insurance:SELF PAY [facility] Number: Effective Repository Date:2018-04-15 04/08/2018 GARCÍA [id number] Primary GARCÍA [place] Insurance:MEDICARE PERRYDOB: [place] [facility] [id number] Hospital [address]Msd: (330) Number: Repository [phone] () [id number] Date:2018-03-27 04/08/2018 Secondary GARCÍA A Angel Insurance:CIGNA PHIL PERRYDOB: Community SUPPLEMENT [id number] Memorial Hospital Repository Number: [id number] Date:4782-63-00USTPJH [facility] [address] [address], [place] [address]KC: 04/08/2018 Tertiary NOT GIVENUNK [place] Insurance:SELF PAY [facility] Number: Effective Repository Date:2018-03-27 04/06/2018 GARCÍA [id number] Primary GARCÍA [place] Insurance:MEDICARE PERRYDOB: [place] [facility] [id number] Hospital [address]Axi: (330) Number: Repository [phone] () [id number] Date:2018-03-27 04/06/2018 Secondary GARCÍA A Angel Insurance:CIGNA PHIL PERRYDOB: Community SUPPLEMENT [id number] Memorial Hospital Repository Number: [id number] Date:3138-71-55DKQVPG AN [facility] [address] [address], [place] [address]QT: 04/06/2018 Tertiary NOT GIVENUNK [place] Insurance:SELF PAY [facility] Number: Effective Repository Date:2018-03-27 04/03/2018 GARCÍA [id number] Primary GARCÍA A Angel [place] Insurance:MEDICARE PERRYDOB: [place] [facility] [id number] Hospital 6[address]Sxr: (330) Number: Repository [phone] () [id number] Date:2018-03-27 04/03/2018 Secondary GARCÍA A Angel Insurance:PAWEL VILLARREAL PERRYDOB: [facility] SUPPLEMENT [id number] Memorial Hospital Repository Number: [id number] Date:8106-95-92IPLWUI AN [facility] [address] [address], [place] [address]DJ: 04/03/2018 Tertiary NOT GIVENUNK [place] Insurance:SELF PAY [facility] Number: Effective Repository Date:2018-03-27 04/01/2018 GARCÍA [id number] Primary GARCÍA A Angel [place] Insurance:MEDICARE PERRYDOB: [place] [facility] [id number] Hospital [address]Txc: (330) Number: Repository [phone] () [id number] Date:2018-03-27 04/01/2018 Secondary GARCÍA A Angel Insurance:PAWEL VILLARREAL PERRYDOB: [facility] SUPPLEMENT [id number] Memorial Hospital Repository Number: [id number] Date:0252-99-60DIYNGU AN [facility] [address] [address]SIY, [place] [address]BI: 04/01/2018 Tertiary NOT GIVENUNK [place] Insurance:SELF PAY [facility] Number: Effective Repository Date:2018-03-27 03/30/2018 GARCÍA Baig [id number] Primary GARCÍA A [place] Insurance:MEDICARE PERRYDOB: [place] [facility] [id number] Hospital 149[address]Qmi: (330) Number: Repository [phone] () [id number] Date:2018-03-27 03/30/2018 Secondary GARCÍA A Angel Insurance:PAWEL VILLARREAL PERRYDOB: [facility] SUPPLEMENT [id number] Memorial Hospital Repository Number: [id number] Date:1861-58-65VPHCMH AN [facility] [address] [address], [place] [address]TC: 03/30/2018 Tertiary NOT GIVENUNK [place] Insurance:SELF PAY [facility] Number: Effective Repository Date:2018-03-27 03/17/2018 GARCÍA [id number] Primary GARCÍA [place] Insurance:MEDICARE PERRYDOB: Community [facility] [place] [facility] [id number] Hospital [address]Fzl: (330) Number: Repository [phone] () [id number] Date:2017-10-09 03/17/2018 Secondary GARCÍA A Angel Insurance:CIGNA MCR PERRYDOB: Community SUPPLEMENT [id number] Memorial Hospital Repository Number: [id number] Date:8523-57-45FWLOLT [facility] [address] [address], [place] [address]VA: 03/17/2018 Tertiary NOT GIVENUNK Angel Insurance:SELF PAY [facility] Number: Effective Repository Date:2018-03-07 02/05/2018 GARCÍA [id number] Primary GARCÍA [place] Insurance:MEDICARE PERRYDOB: [facility] [facility] [id number] Hospital [address]Qfr: (330) Number: Repository [phone] () [id number] Date:2017-10-09 02/05/2018 Secondary GARCÍA A Angel Insurance:CIGNA MCR PERRYDOB: Community SUPPLEMENT [id number] Memorial Hospital Repository Number: [id number] Date:7132-81-11CMDTPV AN [facility] [address] [address], [place] [address]YS: 02/05/2018 Tertiary NOT GIVENUNK Angel Insurance:SELF PAY [facility] Number: Effective Repository Date:2018-02-04 01/20/2018 GARCÍA [id number] Primary [place]ARC[place]A [place] Insurance:MEDICARE PERRYDOB: [place] [facility] [id number] Hospital [address]Cwm: (330) Number: Repository [phone] () [id number] Date:2018-01-20 01/20/2018 Secondary GARCÍA A Angel Insurance:PAWEL VILLARREAL PERRYDOB: [facility] SUPPLEMENT [id number] Repository Number: [id number] Date:5044-04-13BAVKPV [facility] [address], [place] [address]GC: 01/20/2018 Tertiary NOT GIVENUNK Angel Insurance:SELF PAY [facility] Number: Effective Repository Date:2018-01-20 01/19/2018 GARCÍA Baig [id number] Primary GARCÍ[place] A [place] Insurance[place]MEDICARE PERRYDOB: [place] PART A [facility] [id number] Hospital [address]Del: (330) Number: Repository [phone] () [id number] Date:2018-01-19 01/19/2018 Secondary GARCÍA A Angel Insurance:PAWEL VILLARREAL PERRYDOB: [facility] [id number] Memorial Hospital Repository Number: [id number] Date:0020-98-00GYBZCS AN [facility]CTION [address] [address], [place] [address]UV: 01/19/2018 Tertiary NOT GIVENUNK Angel Insurance:SELF PAY [facility] Number: Effective Repository Date:2018-01-19 01/15/2018 GARCÍA Baig [id number] Primary [place]ARCÍA A [place] Insurance:MEDICARE PERRYDOB: [place] [facility] [id number] Hospital [address]Xbg: (330) Number: Repository [phone] () [id number] Date:2018-01-15 01/15/2018 Secondary GARCÍA A Angel Insurance:PAWEL VILLARREAL PERRYDOB: [facility] [id number] Memorial Hospital Repository Number: [id number] Date:2634-84-62RDGGGJ AN [facility]CTION [address] [address] [address]TO: 01/15/2018 Tertiary NOT GIVENUNK Angel Insurance:SELF PAY [facility] Number: Effective Repository Date:2018-01-15 01/15/2018 GARCÍA [id number] Primary GARCÍA [place] Insurance:MEDICARE PERRYDOB: Community [facility] [facility] [id number] Hospital [address]Ewj: (330) Number: Repository [phone] () [id number] Date:2017-10-09 01/15/2018 Secondary GARCÍA A Angel Insurance:CIGNA MCR PERRYDOB: Community SUPPLEMENT [id number] Memorial Hospital Repository Number: [id number] Date:7673-39-08EPYHIP [facility] [address] [address], [place] [address]FX: 01/15/2018 Tertiary NOT GIVENUNK Angel Insurance:SELF PAY [facility] Number: Effective Repository Date:2018-01-04 01/01/2018 GARCÍA [id number] Primary GARCÍA [place] Insurance:MEDICARE PERRYDOB: [facility] [place] [facility] [id number] Hospital [address]Hog: (330) Number: Repository [phone] () [id number] Date:2017-10-09 01/01/2018 Secondary GARCÍA A [place] Insurance:CIGNA MCR PERRYDOB: Community SUPPLEMENT [id number] Memorial Hospital Repository Number: [id number] Date:4824-13-22SIWIXR AN [facility]CTION [address] [address], [place] [address]EY: 01/01/2018 Tertiary NOT GIVENUNK [place] Insurance:SELF PAY [facility] Number: Effective Repository Date:2017-12-05 12/05/2017 GARCÍA [id number] Primary GARCÍA [place] Insurance:MEDICARE PERRYDOB: [place] [facility] [id number] Hospital [address]Owm: Number: Repository [phone] [id number] (HP) Date:2017-12-05 12/05/2017 Secondary GARCÍA A [place] Insurance:PAWEL VILLARREAL PERRYDOB: [facility] SUPPLEMENT [id number] Memorial Hospital Repository Number: [id number] Date:5410-56-25TMXBBI AN [facility]CTION [address] [address], [place] [address]ZY: 12/05/2017 Tertiary NOT GIVENUNK [place] Insurance:SELF PAY [facility] Number: Effective Repository Date:2017-12-05 12/04/2017 GARCÍA [id number] Primary GARCÍA [place] Insurance:MEDICARE PERRYDOB: [place] [facility] [id number] Hospital [address]Ojs: Number: Repository [phone] [id number] (HP) Date:2017-10-09 12/04/2017 Secondary GARCÍA A [place] Insurance:PAWEL VILLARREAL PERRYDOB: [facility] [id number] Memorial Hospital Repository Number: [id number] Date:8453-88-53ACQMIBBLOWING ROCK HOSPITAL [address] [address], [place] [address]JR: 12/04/2017 Tertiary NOT GIVENUNK Angel Insurance:SELF PAY [facility] Number: Effective Repository Date:2017-11-04 11/11/2017 GARCÍA Baig [id number] Primary GARCÍA [place] Insurance:MEDICARE PERRYDOB: [place] [facility] [id number] Hospital [address]Dhj: Number: Repository [phone] [id number] (HP) Date:2017-10-20 11/11/2017 Secondary GARCÍA A Angel Insurance:PAWEL VILLARREAL PERRYDOB: [facility] SUPPLEMENT [id number] Memorial Hospital Repository Number: [id number] Date:7969-52-97XDQDON AN [place]CTION [address] [address], [place] [address]VZ: 11/11/2017 Tertiary NOT GIVENUNK Angel Insurance:SELF PAY [facility] Number: Effective Repository Date:2017-10-20 11/06/2017 GARCÍA [id number] Primary GARCÍA [place] Insurance:MEDICARE PERRYDOB: [place] [facility] [id number] Hospital [address]Ssf: Number: Repository [phone] [id number] (HP) Date:2017-10-20 11/06/2017 Secondary GARCÍA Baig [place] Insurance:CIGNA MCR PERRYDOB: Community SUPPLEMENT [id number] Memorial Hospital Repository Number: [id number] Date:6007-70-13SYGJRA AN [facility]CTION [address] [address], [place] [address]FN: 11/06/2017 Tertiary NOT GIVENUNK [place] Insurance:SELF PAY [facility] Number: Effective Repository Date:2017-10-20 11/06/2017 GARCÍA [id number] Primary GARCÍA [place] Insurance:MEDICARE PERRYDOB: [place] [facility] [id number] Hospital [address]Lho: Number: Repository [phone] [id number] (HP) Date:2017-10-20 11/06/2017 Secondary GARCÍA A [place] Insurance:CIGNA MCR PERRYDOB: Community SUPPLEMENT [id number] Memorial Hospital Repository Number: [id number] Date:1698-32-65OLPIBZ AN [facility]CTION [address] [address], [place] [address]UF: 11/06/2017 Tertiary NOT GIVENUNK [place] Insurance:SELF PAY [facility] Number: Effective Repository Date:2017-11-06 10/30/2017 GARCÍA [id number] Primary GARCÍA [place] Insurance:MEDICARE PERRYDOB: [place] [facility] [id number] Hospital [address]Cka: Number: Repository [phone] [id number] (HP) Date:2017-10-09 10/30/2017 Secondary GARCÍA A [place] Insurance:PAWEL VILLARREAL PERRYDOB: [facility] SUPPLEMENT [id number] Memorial Hospital Repository Number: [id number] Date:4290-16-35HOVTZK AN CORRECTION [address] [address], [place] [address]SH: 10/30/2017 Tertiary NOT GIVENUNK [place] Insurance:SELF PAY [facility] Number: Effective Repository Date:2017-10-09 10/20/2017 GARCÍA [id number] Primary GARCÍA [place] Insurance:MEDICARE PERRYDOB: [place] [facility] [id number] [id number]: Number: Repository [phone] [id number] (HP) Date:2017-06-23 10/20/2017 Secondary GARCÍA A [place] Insurance:PAWEL VILLARREAL PERRYDOB: [facility] [id number] Memorial Hospital Repository Number: [id number] Date:3751-84-34TDEBAQ AN CORRECTION [address] [address], [place] [address]AY: 10/20/2017 Tertiary NOT GIVENUNK [place] Insurance:SELF PAY [facility] Number: Effective Repository Date:2017-06-23 09/29/2017 García [id number] Primary García [place] Insurance:MEDICARE PerryDOB: [place] [facility] [id number] Hospital [address]Nok: Number: Repository [phone] [id number] (HP) Date:2017-09-29 09/29/2017 Secondary García A [place] Insurance:ISAACDERRELL McdonoughryDOB: Community SUPPLEMENT [id number] Memorial Hospital Repository Number: [id number] Date:2116-71-46ALNHYZ AN COR[address]CTION [address] [address], [place] [address]JB: 09/29/2017 Tertiary NOT GIVENUNK [place] Insurance:SELF PAY [facility] Number: Effective Repository Date:2017-09-29 09/03/2017 García Baig [id number] Primary García A Angel [place] Insurance:MEDICARE PerryDOB: [place] BPolicy [id number] Hospital [address]Qbu: Number: Repository [phone] [id number] () Date:2017-09-03 09/03/2017 Secondary García A [place] Insurance:PAWEL VILLARREAL SimeonB: Community SUPPLEMENT [id number] Memorial Hospital Repository Number: [id number] Date:6635-87-98OOGIJW AN COR[address]CTION [address] [address]Q[place], [place] [address]TI: 09/03/2017 Tertiary NOT GIVENUNK [place] Insurance:SELF PAY [facility] Number: Effective Repository Date:2017-09-03
== END ==
PROVIDERS: Family Provider Family Medicine Geriatric Medicine; PCP Family Medicine Geriatric Medicine; Visit Provider Urology
DX: R82.998 Other abnormal findings in urine (principal)
CPT/HCPCS: 87086; 87088; 87186

== ENCOUNTER → 2018-06-17 12:47 | Outpatient (CLI) | payer MEDICARE, OTHER, SELFPAY ==
[2018-06-15 14:40] VITALS: BMI 32.6
--- NOTE | 2018-06-17 12:50 | MRI_ITS ---
STUDY: MRI LUMBAR SPINE WITHOUT CONTRAST REASON FOR EXAM: Female, 67 years old. Bilateral leg weakness TECHNIQUE: Standardized fat and water weighted pulse sequences were obtained in the sagittal and axial planes. COMPARISON: None FINDINGS: T12-L1: Normal endplates. Normal disc height, hydration and morphology. Normal bilateral facet joints. Normal central canal and bilateral lateral recesses. Normal bilateral intervertebral neural foramina. Normal lumbar lordosis. There is no substantial scoliosis. Normal conus medullaris that terminates at T12-L1 L1-2: Normal endplates. Normal disc height, hydration and morphology. Normal bilateral facet joints. Normal central canal and bilateral lateral recesses. Normal bilateral intervertebral neural foramina. L2-3: Narrowed disc space with desiccation of the disc and minor annular bulge with small bilateral foraminal disc protrusions. Normal facet joints Normal central canal and bilateral recesses.. Mild bilateral foraminal stenosis L3-4: Narrowed disc space with desiccation of the disc and minor annular bulge with small bilateral foraminal disc protrusions. Mild facet arthropathy. Normal bilateral facet joints. Normal central canal. Moderate bilateral neural foraminal stenosis L4-5: Normal endplates. Normal disc height, desiccation and moderate annular bulge.. Bilateral facet arthropathy and thickening of ligamenta flava.. Normal central canal. Moderate bilateral recess and neuroforaminal stenosis. L5-S1: Normal endplates. Normal disc height, desiccation and mild annular bulge.. Bilateral facet arthropathy.. Normal central canal. Mild bilateral recess and moderate neuroforaminal stenosis Normal visualized sacral ala. Normal visualized paraspinous soft tissue structures. MRI/Spine Lumbar (Routine) IMPRESSION: No evidence for acute fracture or subluxation Moderate spondylosis and multilevel spinal stenosis secondary to disc disease and bony hypertrophy. Findings as above Electronically Signed: Gallo Marie MD at 23:59 EST , Service support ,
--- OUTSIDE RECORDS SUMMARY | 2018-08-03 16:18 | XMS RPT_ITS ---
:1950 Author Organization OHIP Support Name Relationship Address Phone RENEE RIVERAY Unavailable [address] + [place] [address] R Unavailable Unavailable Unavailable DOHENY, UBALDO Unavailable [address] + [place] [address] R Unavailable Unavailable Unavailable DOHENY, UBALDO Unavailable [address] + [place] [address] R Unavailable Unavailable Unavailable DOHENY, UBALDO Unavailable [address] + [place] [address] R Unavailable Unavailable Unavailable DOHENY, UBALDO Unavailable [address] + [place] [address] R Unavailable Unavailable Unavailable DOHENY, UBALDO Unavailable [address] + [place] [address] R Unavailable Unavailable Unavailable DOHENY, UBALDO Unavailable [address] + [place] [address] R Unavailable Unavailable Unavailable DOHENY, UBALDO Unavailable [address] + [place] [address] R Unavailable Unavailable Unavailable DOHENY, UBALDO Unavailable [address] + [place] [address] R Unavailable Unavailable Unavailable DOHENY, UBALDO Unavailable [address] + [place] [address] R Unavailable Unavailable Unavailable DOHENY, UBALDO Unavailable [address] + [place] [address] R Unavailable Unavailable Unavailable DOHENY, UBALDO Unavailable [address] + [place] [address] R Unavailable Unavailable Unavailable DOHENY, UBALDO Unavailable [address] + [place] [address] R Unavailable Unavailable Unavailable DOHENY, UBALDO Unavailable [address] + [place] [address] R Unavailable Unavailable Unavailable DOHENY, UBALDO Unavailable [address] + [place] [address] R Unavailable Unavailable Unavailable DOHENY, UBALDO Unavailable [address] + [place] [address] R Unavailable Unavailable Unavailable DOHENY, UBALDO Unavailable [address] + [place] [address] R Unavailable Unavailable Unavailable DOHENY, UBALDO Unavailable [address] + [place] [address] R Unavailable Unavailable Unavailable DOHENY, UBALDO Unavailable [address] + [place] [address] R Unavailable Unavailable Unavailable DOHENY, UBALDO Unavailable [address] + [place] [address] R Unavailable Unavailable Unavailable DOHENY, UBALDO Unavailable [address] + [place] [address] R Unavailable Unavailable Unavailable DOHENY, UBALDO Unavailable [address] + [place] [address] R Unavailable Unavailable Unavailable DOHENY, UBALDO Unavailable [address] + [place] [address] R Unavailable Unavailable Unavailable DOHENY, UBALDO Unavailable [address] + [place] [address] R Unavailable Unavailable Unavailable DOHENY, UBALDO Unavailable [address] + [place] [address] R Unavailable Unavailable Unavailable DOHENY, UBALDO Unavailable [address] + [place] [address] R Unavailable Unavailable Unavailable DOHENY, UBALDO Unavailable [address] + [place] [address] R Unavailable Unavailable Unavailable DOHENY, UBALDO Unavailable [address] + [place] [address] R Unavailable Unavailable Unavailable DOHENY, UBALDO Unavailable [address] + [place] [address] R Unavailable Unavailable Unavailable DOHENY, UBALDO Unavailable [address] + [place] [address] R Unavailable Unavailable Unavailable DOHENY, UBALDO Unavailable [address] + [place] [address] R Unavailable Unavailable Unavailable DOHENY, UBALDO Unavailable [address] + [place] [address] R Unavailable Unavailable Unavailable DOHENY, UBALDO Unavailable [address] + [place] [address] R Unavailable Unavailable Unavailable R Unavailable Unavailable Unavailable DOHENY, UBALDO Unavailable [address] + [place] [address] R Unavailable Unavailable Unavailable R Unavailable Unavailable Unavailable RENÉE WOOD Unavailable [address] + [place] [address] DOHENY, JUAN Unavailable [address] + [place] [address] R Unavailable Unavailable Unavailable RADHA WOODORA Unavailable [address] + [place] [address] DOHENY, JUAN Unavailable [address] + [place] [address] R Unavailable Unavailable Unavailable Care Team Providers [...] Primary Care Unavailable Jillian Red Attending Unavailable Parker, Ramirez Attending Unavailable Parker, Ramirez Referring Unavailable Matheus, Albert Chi Primary Care [...] Hogan Consulting Unavailable Britton Bryan Admitting Unavailable AgyeponBritton colvin Attending Unavailable AgBritton sanders Referring Unavailable Matheus, Albert Chi Primary Care Unavailable Ashelfah, Ghasem Consulting Unavailable Agyeapril, Britton Admitting Unavailable Oumarelfah, Ghasem Attending Unavailable AgBritton sanders Referring Unavailable Matheus, Albert Chi Primary Care Unavailable Leonardo, Ghasem Consulting Unavailable Britton Bryan Admitting Unavailable José Miguel Brady Attending Unavailable Britton Bryan Referring Unavailable Matheus, Albert Chi Primary Care Unavailable Gallo Hogan Consulting Unavailable José Miguel Brady Consulting Unavailable Britton Bryan Admitting Unavailable José Miguel Brady Attending Unavailable AgjonoponBritton colvin Referring Unavailable Matheus, Albert Chi Primary Care Unavailable Gallo Hogan Consulting Unavailable José Miguel Brady Consulting Unavailable Imer Alvarado Attending Unavailable Matheus, Albert Chi Referring Unavailable Imer Alvarado Attending Unavailable DurgapaImer hayes Referring Unavailable Matheus, Albert Chi Primary Care [...] Primary Care Unavailable Mario Chang Attending Unavailable Mario Chang Referring Unavailable Matheus, Albert Chi Primary Care Unavailable Matheus, Albert Chi Attending Unavailable Matheus, Albert Chi Primary Care Unavailable Matheus, Albert Chi Referring Unavailable Matheus, Albert Chi Attending Unavailable [...] Unavailable Matheus, Albert Chi Primary Care Unavailable PROBLEMS PROBLEMS DATE TYPE CONDITION / CODE ATTENDING STATUS SOURCE 07/23/2018 Unknown E11.622 - Type 2 Oleghe, Active [place] diabetes mellitus [facility] with other skin Hospital ulcer / Repository E11.622(ICD-10) 04/01/2018 Unknown E11.9 - Type 2 Matheus, Albert Chi Active [facility] diabetes mellitus Community without Hospital complications / Repository E11.9(ICD-10) 04/01/2018 Unknown E55.9 - Vitamin D Matheus, Albert Chi Active [facility] deficiency, Community unspecified / Hospital E55.9(ICD-10) Repository 01/19/2018 Unknown D50.9 - Iron Matheus, Albert Chi Active [place] deficiency anemia, Community unspecified / Hospital D50.9(ICD-10) Repository 02/05/2018 Unknown F11.20 - Opioid Basali, Ayman Active [facility] dependence, Community uncomplicated / Hospital F11.20(ICD-10) Repository 11/06/2017 Unknown I34.2 - MoodispaImer hayes Active [place] Nonrheumatic mitral Community (valve) stenosis / Hospital I34.2(ICD-10) Repository 11/06/2017 Unknown 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, 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[facility] secondary pulmonary Community hypertension / Hospital I27.29(ICD-10) Repository 12/04/2017 Unknown I35.0 - Moodispaabigail, 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[place] Nonrheumatic aortic Community (valve) stenosis / Hospital I35.0(ICD-10) Repository 10/20/2017 Unknown I10 - Essential Moodispaabigail, 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[place] (primary) Community hypertension / Hospital I10(ICD-10) Repository PROCEDURES PROCEDURES No Procedure Records FoundRESULTS RESULTS WOUND CTR HISTORY Observed: 07/23/2018 Status: F Source: [place] AND PHYSICAL 4:30 PM REPLACED BY [facility] REPOSITORY [facility] Wound Healing Center [address] [place] [address] Wound Ctr History AND Physical 07/23/18 1137 MR#: [id number] Acct: [id number] Name: GARCÍA BURROWS Rep #: [id number] : 1950 67 From: Jillian Red MD [...] is now a transfer of care to nm due to several ulcers above the knee. 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 She has had some dressing done by the assisted without any significant improvement. She also has [...] Recorded Date Recorded By Document 07/23/18 10:27 [id number] 07/23/18 10:44 Wound Center Nurse 1 [Ulcer [...] Date Recorded By Document 07/23/18 11:05 MW [id number] 07/23/18 11:21 MW Wound Center Nurse 2 [...] or concerns. This note was generated with RiskIQation software. It may contain incorrect words, spelling, and punctuation that were not noted in checking the note before signing. 07/23/18 1630 <Electronically signed by Jillian Red MD> Date Jillian Red MD CC: Signed 12 LEAD ELECTROCARDIOGRAM Observed: 07/21/2018 Status: F Source: [place] 4:39 PM [facility] REPOSITORY [facility] Cardiovascular Services [place] [address] 12 Lead EKG 07/18/18 1812 MR#: [id number] Acct: [id number] Name: SIMEONGARCÍA Jovanni Rep #: [id number] : 1950 67 From: Kal Rucker MD Attending Dr: José Miguel Brady MD Status: DIS IN Ordering Dr: Jose Conrad MD Date: 07/18/18 Location: [facility] Sex: F C Admitted: 07/18/18 Test [...] ECG Confirmed by KAL RUCKER MD ([id number]), supervising film or videotape editor MICHEAL ALFORD ([id number]) on 07/21/2018 4:39:07 PM Referred By: Britton Bryan Confirmed By:KAL RUCKER MD 07/21/18 1639 Date Kal Rucker MD CC: José Miguel Brady MD; Jose Conrad MD; Britton Bryan MD; Albert House MD Signed DISCHARGE SUMMARY Observed: 07/21/2018 Status: F Source: [place] 11:15 AM [facility] Medical Records Department [address] [place] [address] Discharge Summary 07/21/18 1112 MR#: [id number] Acct: [id number] Name: GARCÍA BURROWS Rep #: [id number] : 1950 67 From: José Miguel Brady MD PCP: Albert House MD, Chi Status: ADM IN Y Location: [place] [address]-1 Discharge Date and Diagnosis - Problem List [...] Amplification - Final Consultations 07/18/18 22:56 Consult: Onc/Wound/manager wind Routine Comment: Reason for Consult:: Decubitus ulcer [...] deconditioning requested for PT OT and social media marketing specialist to assist with discharge planning the patient was discharged to retirement facility once insurance preset education was obtained [...] PO DAILY #30 tab Primary Care Physician: Albetr House Chi, MD [Primary Care Provider] - Disposition: Care Home facility Minutes spent on discharge:: 45 Patient Condition:: Stable Medical Necessity - Tobacco Use Smoking Status: Former smoker Tobacco Use: Cigarettes Meaningful Use Info Meaningful Use Diagnoses (Choose all that apply): None applicable Code Visit Inpatient E AND M: 69839 Disch Hosp 07/21/18 1115 <Electronically signed by José Miguel Brady MD> Date José Miguel Brady MD Cosigner Signature (if applicable): Date CC: José Miguel Brady MD; Albert House MD Signed TRANSFER TO EXTENDED Observed: 07/21/2018 Status: F Source: [facility] 11:08 AM [facility] REPOSITORY [facility] Medical Records Department [address] [place] [address] Transfer to Extended Care MR#: [id number] Acct: [id number] Name: GARCÍA BURROWS Rep #: [id number] : 1950 67 From: José Miguel Brady MD PCP: Albert House MD, Chi Status: ADM IN GARCÍA BURROWS (Patient) (Health Ins. Claim No.) (Day of Discharge to Facility) Certification of patient admission REQUIRED AT TIME OF ADMISSION. I CERTIFY THAT POST-HOSPITAL ECF SERVICES ARE REQUIRED TO BE GIVEN ON AN IN-PATIENT BASIS BECAUSE OF THE ABOVE NAMED PATIENT'S NEED FOR SENIOR CARE CARE ON A CONTINUING BASIS FOR THE CONDITION(S) FOR WHICH HE/SHE WAS RECEIVING IN-PATIENT HOSPITAL SERVICES PRIOR TO HIS/HER TRANSFER TO THE [facility]. 07/21/181107 <Electronically signed by José Miguel Brady [...] F Source: [place] PROFILE (BMP) 5:05 AM [facility] REPOSITORY TYPE CODE TESTS RESULT OUT OF [...] 6 Performed By: #### L500.2500, L501.5200 #### [facility] [address] [place], [place], [address] MAGNESIUM Collected: 07/21/2018 Status: F Source: [place] 5:05 AM [facility] REPOSITORY TYPE CODE TESTS RESULT OUT OF RANGE REFERENCE UNITS LAB L501.5200 1.6-2.6 mg/dL Normal MG 1.6 Performed By: #### L500.2500, L501.5200 #### [facility] [address] [place], [place], [address] CBC-COMPLETE BLOOD CNT Collected: 07/21/2018 Status: F Source: [place] NO DIFF 5:05 AM [facility] REPOSITORY TYPE CODE TESTS RESULT OUT OF [...] MPV 11.7 Performed By: #### L100.0500 #### [facility] [address] [facility], [address] CONSULTATION Observed: 07/20/2018 Status: F Source: [place] 9:54 PM [facility] REPOSITORY [facility] Medical Records Department [address] [place] [address] Consultation 07/20/18 1432 MR#: [id number] Acct: [id number] Name: GARCÍA BURROWS Rep #: [id number] : 1950 67 From: Gallo Hogan DPM PCP: Albert House MD, Chi Status: ADM IN Y Location: [facility] Reason for Consult Date of Consultation: 07/20/18 [...] ECHOCARDIOGRAM COMPLETE Observed: 07/20/2018 Status: F Source: [place] 5:52 PM [facility] REPOSITORY [facility] Cardiovascular Services [place] [address] Echo Complete 07/20/18 1021 MR#: [id number] Acct: [id number] Name: GARCÍA BURROWS Rep #: [id number] : 1950 67 From: Kal Rucker MD Attending Dr: José Miguel Brady MD Status: ADM IN Ordering Dr: Britton Bryan MD Date: 07/18/18 Location: [facility] Sex: F C Admitted: 07/18/18 Reason [...] Date Dictated: 07/20/18 1021 Date Transcribed: 07/20/181751 Set Staff Fitter: Signed CAROTID DUPLEX Observed: 07/20/2018 Status: F Source: [place] ULTRASOUND 11:38 AM [facility] REPOSITORY [facility] Cardiovascular Services [address] [place] [address] Carotid Duplex Ultrasound 07/20/18 1052 MR#: [id number] Acct: [id number] Name: GARCÍA BURROWS Rep #: [id number] : 1950 67 From: Philippe [place] MD Attending Dr: José Miguel Brady MD Status: ADM IN Ordering Dr: Britton Bryan MD Date: 07/18/18 Location: [facility] Sex: F C Admitted: 07/18/18 Reason [...] in the left bulb. Procedure Carotid Duplex 30346. Exam performed portable in patient room. Interpretation [...] Dictated: 07/20/18 1052 Date Transcribed: 07/20/18 1137 Set Staff Fitter: Signed BEDSIDE GLUCOSE Collected: 07/20/2018 Status: F Source: [place] 11:22 AM [facility] REPOSITORY TYPE CODE TESTS RESULT OUT OF REFERENCE UNITS RANGE LAB L501.080 70-110 mg/dL High BEDSIDE GLU 130 Result Comment: MANAGEMENT OF PATIENT CARE PER NURSING PROTOCOL Performed By: #### L501.080 #### [facility] Laboratory Point of Care [address] [place] [address] BEDSIDE GLUCOSE Collected: 07/20/2018 Status: F Source: [place] 6:56 AM [facility] REPOSITORY TYPE CODE TESTS RESULT OUT OF REFERENCE UNITS RANGE LAB L501.080 70-110 mg/dL High BEDSIDE GLU 112 Result Comment: MANAGEMENT OF PATIENT CARE PER NURSING PROTOCOL Performed By: #### L501.080 #### [facility] Laboratory Point of Care [address] [place] [address] BASIC METABOLIC Collected: 07/20/2018 Status: F Source: [place] PROFILE (BMP) 4:56 AM [facility] REPOSITORY TYPE CODE TESTS RESULT OUT OF [...] GAP 8 Performed By: #### L500.2500 #### [facility] [address] [place], [address] CBC W/DIFF, AUTOMATED Collected: 07/20/2018 Status: F Source: [place] 4:56 AM [facility] REPOSITORY TYPE CODE TESTS RESULT OUT OF [...] Lymph 1.14 Performed By: #### L100.0100 #### [facility] [address] [place], [address] BEDSIDE GLUCOSE Collected: 07/19/2018 Status: F Source: [place] 9:01 PM [facility] REPOSITORY TYPE CODE TESTS RESULT OUT OF REFERENCE UNITS RANGE LAB L501.080 70-110 mg/dL High BEDSIDE GLU 169 Result Comment: MANAGEMENT OF PATIENT CARE PER NURSING PROTOCOL Performed By: #### L501.080 #### [facility] Point of Care [address] [place] [address] BEDSIDE GLUCOSE Collected: 07/19/2018 Status: F Source: [place] 4:18 PM [facility] REPOSITORY TYPE CODE TESTS RESULT OUT OF REFERENCE UNITS RANGE LAB L501.080 70-110 mg/dL High BEDSIDE GLU 157 Result Comment: MANAGEMENT OF PATIENT CARE PER NURSING PROTOCOL Performed By: #### L501.080 #### [facility] Point of Care [address] [place], [place] [address] Observed: 07/19/2018 Status: F Source: [place] CDIFF (MOLECULAR) 12:35 PM [facility] REPOSITORY Is the patient receiving laxatives? N New/unexplained onset of 3 or more stools in past 24 hrs? Y Cdiff-Molecular Normal Reference Range = Negative C. Diff DNA Negative- No toxigenic C. Diff DNA Detected NAAT METHOD Testing was performed using nucleic acid amplification Performed By: #### M100.6796 #### [facility] [address] [place], [place], [address] Observed: 07/19/2018 Status: F Source: [place] CULTURE, URINE 12:35 PM [facility] REPOSITORY Urine Culture #2 Below infection level. ORGANISM 1: Presumptive E. coli [place] Count >100,000 ORGANISM 2: GPC Poss Enterococcus sp [place] Count 1000-10,000 Presumptive E. coli: REACTION Amoxacillin/Clavulanic [...] <=20 S (NF) indicates non-formulary drug at [facility]. Approval by Infectious Disease Specialist required before non-formulary drugs may be ordered and/or dispensed. Performed By: #### M100.0650 #### [facility] [address] [place], [address] BEDSIDE GLUCOSE Collected: 07/19/2018 Status: F Source: [place] 11:55 AM [facility] REPOSITORY TYPE CODE TESTS RESULT OUT OF REFERENCE UNITS RANGE LAB L501.080 70-110 mg/dL High BEDSIDE GLU 123 Result Comment: MANAGEMENT OF PATIENT CARE PER NURSING PROTOCOL Performed By: #### L501.080 #### [facility] Point of Care [address] [place] [address] BRAIN WITHOUT Observed: 07/19/2018 Status: F Source: [place] CONTRAST 8:30 AM [facility] REPOSITORY [facility] Imaging Services [address] [place] [address] Brain without Contrast MR#: [id number] Acct: [id number] Name: GARCÍA BURROWS Jovanni Rep #: [id number] : 1950 F 67 From: Lawrence Toledo MD PCP: Matheus BLACK,Albert Plascencia Status: ADM IN Study: Brain without Contrast Date of Exam: 07/20/18 Exam# [id number] Ordering Dr: Ras Patterson MD STUDY: MRI [...] , CC: Ras Patterson; Albert House MD Set Staff Fitter: Signed HISTORY AND PHYSICAL Observed: 07/19/2018 Status: F Source: [place] EXAM 7:11 AM [facility] REPOSITORY [facility] Medical Records Department [address] [place] [address] History and Physical 07/18/182021 MR#: [id number] Acct: [id number] Name: GARCÍA BURROWS Rep #: [id number] : 1950 67 From: Britton Bryan MD PCP: Albert House MD, Chi Status: ADM IN Y Location: [place] [id number] Problem List (1) Sepsis Status: Acute (2) [...] than 120. -Permissive HTN for 24 hrs, fpc goal BP < 120/80 mmHg and goal [...] heparin Code Visit OBSV E AND M: 37112 Initial observation care L3 07/19/18 0711 <Electronically signed by Britton Bryan MD> Date Britton Bryan MD Cosigner Signature: Date (if applicable) CC: Britton Bryan MD; Albert House MD Signed BEDSIDE GLUCOSE Collected: 07/19/2018 Status: F Source: [place] 6:54 AM [facility] REPOSITORY TYPE CODE TESTS RESULT OUT OF REFERENCE UNITS RANGE LAB L501.080 70-110 mg/dL High BEDSIDE GLU 115 Result Comment: MANAGEMENT OF PATIENT CARE PER NURSING PROTOCOL Performed By: #### L501.080 #### [facility] Point of Care [facility] [address] [place], [place] [address] CBC-COMPLETE BLOOD CNT Collected: 07/19/2018 Status: F Source: [place] NO DIFF 5:44 AM [facility] REPOSITORY TYPE CODE TESTS RESULT OUT OF [...] MPV 12.1 Performed By: #### L100.0500 #### [facility] [address] [place], [place], [address] BASIC METABOLIC Collected: 07/19/2018 Status: F Source: [place] PROFILE (BMP) 5:44 AM [facility] REPOSITORY TYPE CODE TESTS RESULT OUT OF [...] 7 Performed By: #### L500.2500, L500.4100 #### [facility] [address] [facility] [address] LIPID PROFILE Collected: 07/19/2018 Status: F Source: [place] 5:44 AM [facility] REPOSITORY TYPE CODE TESTS RESULT OUT OF [...] 13 Performed By: #### L500.2500, L500.4100 #### [facility] [address] [facility] [address] BEDSIDE GLUCOSE Collected: 07/19/2018 Status: F Source: [place] 4:50 AM [facility] REPOSITORY TYPE CODE TESTS RESULT OUT OF REFERENCE UNITS RANGE LAB L501.080 70-110 mg/dL High BEDSIDE GLU 128 Result Comment: MANAGEMENT OF PATIENT CARE PER NURSING PROTOCOL Performed By: #### L501.080 #### [facility] Laboratory Point of Care [address] [facility] [place] [place] [address] EMERGENCY DEPARTMENT Observed: 07/18/2018 Status: F Source: [place] SUMMARY 8:25 PM [facility] REPOSITORY [facility] Medical Records Department [address] [place] [address] Emergency Department Summary 07/18/18 1814 MR#: [id number] Acct: [id number] Name: GARCÍA BURROWS #: [id number] : 1950 67 From: Jose Conrad MD [...] UTI, weakness This note was generated with ticketea dictation software. It may contain incorrect words, spelling, and punctuation that were not noted in review of the chart prior to signing ED Disposition - Plan for ED Patient: Chief Complaint: Neuro S/Sx Referrals: Albetr House Chi, MD [Primary Care Provider] - What to do if you have Problems For any increased pain, shortness of breath, bleeding, nausea or vomiting, chest pain, or any unexpected problems, contact your Primary Care Provider. Call [facility] ([phone]) or report to the closest Emergency Room. Call 911 if necessary. 07/18/182024 <Electronically signed by Jose Conrad MD> Date Jose Conrad MD Cosigner Signature (If Indicated): Date CC: Albert House MD Observed: 07/18/2018 Status: F Source: [place] CULTURE, BLOOD (WB) 8:00 PM [facility] REPOSITORY AEROBIC BOTTLE GRAM STAIN = GRAM POSITIVE COCCI DRAWN 07/18/18 AT [address] HOUSE NURSE LINE 07/22/18 0901 Opal Palm. Possible skin contamination, further Identification and sensitivity will be performed only by physician's request. ANAEROBIC BOTTLE NO GROWTH 5 DAYS. ORGANISM 1: Staphylococcus epidermidis Amount Growth Growth Performed By: #### M200.1000, M100.636 #### [facility] [address] [place], [address] Observed: 07/18/2018 Status: F Source: [place] BC GPC ID 8:00 PM [facility] REPOSITORY GPC ID Staphylococcus sp. Staphylococcus epidermidis Enterococcus sp. Not Detected Streptococcus spp. Not Detected Listeria spp Not Detected Ivone/vanB Not Detected mecA mecA Resistance Marker Detected NAAT METHOD Testing was performed using nucleic acid amplification ORGANISM 1: Staphylococcus epidermidis ORGANISM 2: mecA Resistance Marker Performed By: #### M200.1000, M100.636 #### [facility] [address] [place], [address] LACTIC ACID Collected: 07/18/2018 Status: F Source: [place] 7:40 PM [facility] REPOSITORY Order Comment: Yes/No query for Sepsis Lactate Rule Y TYPE CODE TESTS RESULT OUT OF RANGE REFERENCE UNITS LAB L503.6005 0.4-2.0 mmol/L Normal LACTIC ACID 1.1 Performed By: #### L503.6005 #### [facility] Laboratory [address] [place], [address] PROTHROMBIN TIME W/INR Collected: 07/18/2018 Status: F Source: [place] 7:20 PM [facility] REPOSITORY Order Comment: REDRAW. PREVIOUS SPECIMEN REJECTED DUE TO QNS. 07/18/181857 Lilliam Knott. TYPE CODE TESTS RESULT OUT OF RANGE REFERENCE UNITS LAB L300.4150 11.7-14.9 SECONDS High PROTIME 17.2 LAB L300.4200 Normal INR 1.4 Performed By: #### L300.3900, L300.4310 #### [facility] Laboratory [address] [place], [address] PARTIAL THROMBOPLAST Collected: 07/18/2018 Status: F Source: [place] TIME 7:20 PM [facility] REPOSITORY Order Comment: REDRAW. PREVIOUS SPECIMEN REJECTED DUE TO QNS. 07/18/181857 Lilliam Knott. TYPE CODE TESTS RESULT OUT OF RANGE REFERENCE UNITS LAB L300.4310 24.1-36.2 Seconds Normal PTT 30.5 Performed By: #### L300.3900, L300.4310 #### [facility] Laboratory [address] [place], [address] HEMOGLOBIN A1C Collected: 07/18/2018 Status: F Source: [place] 6:42 PM [facility] REPOSITORY TYPE CODE TESTS RESULT OUT OF RANGE REFERENCE UNITS LAB L501.9985 4.2-6.3 % Normal HGB A1C 4.4 Performed By: #### L501.9985 #### [facility] Laboratory [address] [place], [address] CBC W/DIFF, AUTOMATED Collected: 07/18/2018 Status: F Source: [place] 6:40 PM [facility] REPOSITORY TYPE CODE TESTS RESULT OUT OF [...] Lymph 1.00 Performed By: #### L100.0100 #### [facility] Laboratory [address] [place], [place], [address] BASIC METABOLIC Collected: 07/18/2018 Status: F Source: [place] PROFILE (BMP) 6:40 PM [facility] REPOSITORY Order Comment: 'TROP' Serial specimen #1, [...] 7 Performed By: #### L500.2500, L501.4010 #### [facility] Laboratory [address] [place], [address] TROPONIN-I Collected: 07/18/2018 Status: F Source: [place] 6:40 PM [facility] REPOSITORY Order Comment: 'TROP' Serial specimen #1, #2, #3, or #4: 1 TYPE CODE TESTS RESULT OUT OF RANGE REFERENCE UNITS LAB L501.4010 <0.045 ng/mL High 0.112 TROPONIN-I Result Comment: TROPONIN-I EXPECTED VALUES <0.045 Negative 0.045 - 0.590 Consistent with Cardiac Damage > OR = 0.600 Critical Value Not every elevated troponin is indicative of IA. These values should be used with clinical judgement in examining the patient's clinical picture for diagnosis. To establish a diagnosis of IA versus myocardial injury, there must be a demonstrated rise and/or fall in the troponin values, in addition to ischemic symptoms, EKG changes, new regional wall motion abnormality, and/or angiographical evidence. PLEASE NOTE: REFERENCE RANGES EDITED 17 Performed By: #### L500.2500, L501.4010 #### [facility] Laboratory [address] [place], [address] URINALYSIS, COMPLETE Collected: 07/18/2018 Status: F Source: [place] 6:30 PM [facility] REPOSITORY Order Comment: Order Date: 07/18/18 How [...] 0 SEEN Performed By: #### L400.0001 #### [facility] Laboratory [address] [facility] [address] [place], [place], [address] BRAIN/HEAD WITHOUT Observed: 07/18/2018 Status: F Source: [place] CONTRAST 6:12 PM [facility] REPOSITORY [facility] Imaging Services [address] [place] [address] Brain/Head without Contrast MR#: [id number] Acct: [id number] Name: GARCÍA BURROWS Rep #: [id number] : 1950 F 67 From: Martha Machado MD PCP: Matheus BLACK,Albert Plascencia Status: PRE ER Study: Brain/Head without Contrast Date of Exam: 07/18/18 Exam# [id number] Ordering Dr: Jose Conrad MD STUDY: CT [...] CC: Jose Conrad MD; Albert House MD Set Staff Fitter: Signed CHEST 1 VIEW Observed: 07/18/2018 Status: F Source: [place] 6:12 PM REPLACED BY [facility] REPOSITORY [facility] [place] [address] Chest 1 View MR#: [id number] Acct: [id number] Name: GARCÍA BURROWS Rep #: [id number] : 1950 F 67 From: Balwinder Bermudez MD PCP: Albert House MD, Chi Status: REG ER Study: Chest 1 View Date of Exam: 07/18/18 Exam# [id number] Ordering Dr: Jose Conrad MD STUDY: X-RAY [...] CC: Jose Conrad MD; Albert House MD Set Staff Fitter: Signed BEDSIDE GLUCOSE Collected: 07/18/2018 Status: F Source: [place] 6:11 PM [facility] REPOSITORY TYPE CODE TESTS RESULT OUT OF REFERENCE UNITS RANGE LAB L501.080 70-110 mg/dL High BEDSIDE GLU 142 Result Comment: MANAGEMENT OF PATIENT CARE PER NURSING PROTOCOL Performed By: #### L501.080 #### [facility] Laboratory Point of Care [address] [place] [address] ESOPHAGUS ONLY Observed: 06/26/2018 Status: F Source: [place] 9:51 AM [facility] REPOSITORY [facility] Imaging Services [address] [place] [address] Esophagus Only MR#: [id number] Acct: [id number] Name: GARCÍA BURROWS Rep #: [id number] : 1950 F 67 From: Bandar Mckeon MD PCP: Matheus BLACK,Albert Plascencia Status: REG CLI Study: Esophagus Only Date of Exam: 06/26/18 Exam# [id number] Ordering Dr: Albert House MD STUDY: X-RAY [...] Bandar Mckeon MD at 13:18 EST Tel [phone], Service support , CC: Albert House MD Set Staff Fitter: Signed MODIFIED BARIUM Observed: 06/22/2018 Status: F Source: [place] SWALLOW STUDY 6:10 PM [facility] REPOSITORY [facility] Speech Pathology [address] [place] [address] Modified Barium Swallow Study MR#: [id number] Acct: [id number] Name: GARCÍA BURROWS Rep #: [id number] : 1950 67 From: Shanon Wesley M.A. CCC-INSIDE STEWARD/STEWARDESS PRIMARY / SECONDARY DIAGNOSIS: Dysphagia REFERRING PHYSICIAN: [...] 4.Thin cup sequential swallows: 8 trace amount 5.Pomaria cup: 2 scant 6.Puddin 7.Pomaria cup: 1 8.Cookie: 1 9.Pomaria cup: 1 10.Thin cup: 1 11.Thin cup: [...] COUNT: [id number] 06/22/18 1810 <Electronically signed by Shanno Wesley M.A., CCC-INSIDE STEWARD/STEWARDESS> Date Shanon Wesley M.A. CCC-INSIDE STEWARD/STEWARDESS Co-Signature Required for all Medicare patients Date/Time Co-Signature CC: SWALLOWING FUNCTION Observed: 06/22/2018 Status: F Source: [place] W/VIDEO 1:13 PM [facility] REPOSITORY [facility] Imaging Services [address] [place] [address] Swallowing Function w/Video MR#: [id number] Acct: [id number] Name: GARCÍA BURROWS Rep #: [id number] : 1950 F 67 From: Bandar Mckeon MD PCP: Albert House MD, Chi Status: REG CLI Study: Swallowing Function w/Video Date of Exam: 06/22/18 Exam# [id number] Ordering Dr: Albert House MD STUDY: SWALLOWING [...] Bandar Mckeon MD at 14:51 EST Tel [phone], Service support , CC: Albert House MD Set Staff Fitter: Signed SPINE LUMBAR Observed: 06/17/2018 Status: F Source: [place] (ROUTINE) 12:52 PM [facility] REPOSITORY [facility] Imaging Services [address] [place] [address] Spine Lumbar (Routine) MR#: [id number] Acct: [id number] Name: GARCÍA BURROWS Rep #: [id number] : 1950 F 67 From: Gallo Marie MD PCP: Albert House MD, Chi Status: REG CLI Study: Spine Lumbar (Routine) Date of Exam: 06/17/18 Exam# [id number] Ordering Dr: Albert House MD STUDY: MRI [...] Service support , CC: Albert House MD Set Staff Fitter: Signed Observed: 06/16/2018 Status: F Source: [place] CULTURE, URINE 2:05 PM [facility] REPOSITORY Urine Culture ORGANISM 1: Presumptive E. coli [place] Count >100,000 Presumptive E. coli: REACTION Amoxacillin/Clavulanic [...] >=320 R (NF) indicates non-formulary drug at [facility]. Approval by Infectious Disease Specialist required before non-formulary drugs may be ordered and/or dispensed. Performed By: #### M100.0650 #### [facility] Laboratory [address] [place], [address] LUMBAR SPINE 2 OR 3 Observed: 06/09/2018 Status: F Source: [place] VIEWS 4:15 PM [facility] REPOSITORY [facility] Imaging Services [address] [place] [address] Lumbar Spine 2 or 3 Views MR#: [id number] Acct: [id number] Name: GARCÍA BURROWS Rep #: [id number] : 1950 F 67 From: Bandar Mckeon MD PCP: Albert House MD, Chi Status: REG CLI Study: Lumbar Spine 2 or 3 Views Date of Exam: 06/09/18 Exam# [id number] Ordering Dr: Albert House MD STUDY: X-RAY [...] Bandar Mckeon MD at 16:00 EST Tel [phone], Service support , CC: Albert House MD Set Staff Fitter: Signed IRON BINDING Collected: 04/15/2018 Status: F Source: [facility],TOTAL 2:32 PM [facility] REPOSITORY TYPE CODE TESTS RESULT OUT OF RANGE REFERENCE UNITS LAB L503.6075 250-450 ug/dL Low TIBC 173 Performed By: #### L503.6075, L503.6150 #### [facility] Laboratory [address] [place], [place], [address] IRON Collected: 04/15/2018 Status: F Source: [place] 2:32 PM [facility] REPOSITORY TYPE CODE TESTS RESULT OUT OF RANGE REFERENCE UNITS LAB L503.6150 50-170 ug/dL Normal IRON 96 Performed By: #### L503.6075, L503.6150 #### [facility] Laboratory [address] [place], [place], [address] CBC W/DIFF, AUTOMATED Collected: 04/15/2018 Status: F Source: [place] 2:32 PM [facility] REPOSITORY TYPE CODE TESTS RESULT OUT OF [...] ANISO 1+ Performed By: #### L100.0100 #### [facility] Laboratory [address] [facility] [place], [address] LIVER Observed: 04/06/2018 Status: F Source: [place] 8:55 AM [facility] REPOSITORY [facility] Imaging Services [address] [place] [address] Liver MR#: [id number] Acct: [id number] Name: GARCÍA BURROWS Rep #: [id number] : 1950 F 67 From: Marcial Winston DO PCP: Albert House MD, Chi Status: REG CLI Study: Liver Date of Exam: 04/06/18 Exam# [id number] Ordering Dr: Albert House MD STUDY: ABDOMINAL [...] Marcial Winston DO at 17:15 EDT Tel [phone], Service support , CC: Albert House MD Set Staff Fitter: Signed HEPATITIS ABC PROFILE Collected: 03/31/2018 Status: F Source: [place] 2:44 PM [facility] REPOSITORY TYPE CODE TESTS RESULT OUT OF RANGE REFERENCE UNITS LAB L3100.0200 Negative Normal HEP A Negative IgM 6734 LAB L3100.0300 Negative Normal HEP A Negative AB,T.6726 LAB L3100.0400 Negative Normal HB Negative SURF AG LAB L3100.0440 Negative Normal HB Negative CORE [id number] LAB L3100.0460 Negative High HEP B Positive [...] indicate HCV infection. Performed at: - [facility] [address] [id number] Medical Typist: Leroy Pimentel PhD, Phone: [phone] Performed By: #### L3000.0700 #### [facility] (refer to report for specific site) refer to report for address and phone number CBC W/DIFF, AUTOMATED Collected: 03/30/2018 Status: F Source: [place] 2:44 PM [facility] REPOSITORY TYPE CODE TESTS RESULT OUT OF [...] 1+ ANISOCYTOSIS Performed By: #### L100.0100 #### [facility] Laboratory [address] [place], [address] COMPREHENSIVE METABOLIC Collected: 03/30/2018 Status: F Source: [place] BRENNAN 2:44 PM [facility] REPOSITORY TYPE CODE TESTS RESULT OUT OF [...] 10 Performed By: #### L500.4050, L501.9520 #### [facility] Laboratory [address] [place], [address] THYROID STIM HORMONE Collected: 03/30/2018 Status: F Source: [place] (TSH) 2:44 PM [facility] REPOSITORY TYPE CODE TESTS RESULT OUT OF RANGE REFERENCE UNITS LAB L501.9520 0.358-3.74 uIU/mL Normal TSH 1.79 Performed By: #### L500.4050, L501.9520 #### [facility] Laboratory [address] [place], [address] VITAMIN D,25 HYDROXY Collected: 03/30/2018 Status: F Source: [place] 2:44 PM [facility] REPOSITORY TYPE CODE TESTS RESULT OUT OF RANGE REFERENCE UNITS LAB L506.1000 29.95-100.01 ng/mL Normal Vitamin D 35.1 25-OH Result Comment: Vitamin D 25(OH) Status Range Deficiency <20 ng/mL (50nmol/L) Insuffciency 20 - 30 ng/mL (50 - 75 nmol/L) Sufficiency 30 - 100 ng/mL (75 - 250 nmol/L) Toxicity >100 ng/mL (>250 nmol/L) Performed By: #### L506.1000 #### [facility] Laboratory [address] [place], [address] CBC W/DIFF, AUTOMATED Collected: 01/19/2018 Status: F Source: [place] 5:11 PM [facility] REPOSITORY TYPE CODE TESTS RESULT OUT OF [...] 1+ ANISOCYTOSIS Performed By: #### L100.0100 #### [facility] Laboratory [address] [place], [address] COMPREHENSIVE METABOLIC Collected: 01/19/2018 Status: F Source: [facility] 5:11 PM [facility] REPOSITORY TYPE CODE TESTS RESULT OUT OF [...] By: #### L500.4050, L501.9520, L503.6075, L503.6150 #### [facility] Laboratory [address] [place], [address] THYROID STIM HORMONE Collected: 01/19/2018 Status: F Source: [place] (TSH) 5:11 PM [facility] REPOSITORY TYPE CODE TESTS RESULT OUT OF RANGE REFERENCE UNITS LAB L501.9520 0.358-3.74 uIU/mL Normal TSH 1.22 Performed By: #### L500.4050, L501.9520, L503.6075, L503.6150 #### [facility] Laboratory [address] [place], [address] IRON BINDING Collected: 01/19/2018 Status: F Source: [place] CAPACITY,TOTAL 5:11 PM [facility] REPOSITORY TYPE CODE TESTS RESULT OUT OF RANGE REFERENCE UNITS LAB L503.6075 250-450 ug/dL Normal TIBC 334 Performed By: #### L500.4050, L501.9520, L503.6075, L503.6150 #### [facility] Laboratory [address] [place], [address] IRON Collected: 01/19/2018 Status: F Source: [place] 5:11 PM [facility] REPOSITORY TYPE CODE TESTS RESULT OUT OF RANGE REFERENCE UNITS LAB L503.6150 50-170 ug/dL Normal IRON 57 Performed By: #### L500.4050, L501.9520, L503.6075, L503.6150 #### [facility] Laboratory [address] [place], [address] URINE DRUG SCREEN Collected: 01/15/2018 Status: F Source: [place] (VISTA) 12:00 PM [facility] REPOSITORY Order Comment: Comments: TRAMADOL [id number] URINE List of Drugs Taken or Suspected? [...] Normal NEGATIVE Performed By: #### L505.5000 #### [facility] Laboratory [address] [place], [address] MISCELLANEOUS LAB Collected: 01/15/2018 Status: F Source: [place] PROCEDURE 12:00 PM [facility] REPOSITORY Order Comment: Comments: TRAMADOL [id number] URINE Test(s) Ordered: #[id number] Run Lowest Urine Toxicology TYPE CODE TESTS RESULT OUT OF RANGE REFERENCE UNITS LAB L801.1541 Normal [facility] [place] Result Comment: [id number] 6+OXYCODONE-BUND (ng/mL) DRUG RESULT SCREEN CUTOFF ____ Amphetamines,Urine Negative ng/mL 1000 Amphetamine test includes Amphetamine and Methamphetamine. Barbiturates Negative ng/mL 200 Benzodiazepines Negative ng/mL 200 Cannabinoid Negative ng/mL 20 Cocaine (Metab) Negative ng/mL 300 Opiates Negative ng/mL 300 Opiates test includes Codeine, Morphine, Hydromorphone, Hydrocodone. Oxycodone/Oxymorphone,Urine Negative ng/mL 300 Test includes Oxydodone and Oxymorphone. TESTING PERFORMED AT [facility]. ORIGINAL REPORT ON FILE IN LAB CONTAINS ADDITIONAL TEST SITE INFORMATION. Performed By: #### L801.1541 #### [facility] Laboratory [address] [place], [address] MISCELLANEOUS LAB Collected: 01/15/2018 Status: F Source: [place] PROCEDURE 2 12:00 PM [facility] REPOSITORY Order Comment: Comments: TRAMADOL [id number] URINE List Test(s) Ordered by Physician: TRAMADOL [id number] URINE TYPE CODE TESTS RESULT OUT OF RANGE REFERENCE UNITS LAB L801.1543 Normal MISC LAB TEST 2 Result Comment: TEST RESULT UNITS REFERENCE INTERVAL TRAMADOL POSITIVE CUTOFF = 200 TRAMADOL GC/MS CONF >3000 ng/mL CUTOFF = 100 TESTING PERFORMED AT [facility]. ORIGINAL REPORT ON FILE IN LAB CONTAINS ADDITIONAL TEST SITE INFORMATION. Performed By: #### L801.1543 #### [facility] Laboratory [address] [place], [address] IRON+IRON BINDING Collected: 12/05/2017 Status: F Source: [place] CAPACITY 10:56 AM [facility] REPOSITORY Order Comment: Comments: HUANG TYPE CODE TESTS RESULT OUT OF RANGE REFERENCE UNITS LAB L503.6075 250-450 ug/dL TIBC Normal 412 LAB L503.6150 50-170 ug/dL Low IRON 23 LAB L503.6250 15.0-55.0 % Low IRON SATURATION 5.6 Performed By: #### L503.6030, L503.6550 #### [facility] Laboratory [address] [place], [address] FERRITIN Collected: 12/05/2017 Status: F Source: [place] 10:56 AM [facility] REPOSITORY Order Comment: Comments: HAUNG TYPE CODE TESTS RESULT OUT OF REFERENCE UNITS RANGE LAB L503.6550 8-252 ng/mL Low FERRITIN 5 Performed By: #### L503.6030, L503.6550 #### [facility] Laboratory [address] [place], [place], [address] CBC-COMPLETE BLOOD CNT Collected: 12/05/2017 Status: F Source: [place] NO DIFF 10:56 AM [facility] REPOSITORY TYPE CODE TESTS RESULT OUT OF [...] Performed By: #### L100.0500, L100.9950, L100.4500 #### [facility] Laboratory [address] [place], [place], [address] RETIC PANEL Collected: 12/05/2017 Status: C Source: [place] 10:56 AM [facility] REPOSITORY TYPE CODE TESTS RESULT OUT OF [...] Performed By: #### L100.0500, L100.9950, L100.4500 #### [facility] Laboratory [address] [place], [address] DIFFERENTIAL COMMENT Collected: 12/05/2017 Status: F Source: [place] 10:56 AM [facility] REPOSITORY TYPE CODE TESTS RESULT OUT OF RANGE REFERENCE UNITS LAB L100.4500 Normal SMEAR COMMENT Result Comment: 2+ ANISOCYTOSIS 1+ HYPOCHROMIA Performed By: #### L100.0500, L100.9950, L100.4500 #### [facility] Laboratory [address] [place], [address] CELIAC DISEASE Collected: 12/05/2017 Status: F Source: [place] PROFILE 10:56 AM [facility] REPOSITORY TYPE CODE TESTS RESULT OUT OF RANGE REFERENCE UNITS LAB L3200.1400 87-352 mg/dL Normal IMMUNO A 213 Result Comment: Performed at: - [facility] [address] [id number] Medical Typist: Leroy Pimentel PhD, Phone: [phone] LAB L3645.2332 0-3 U/mL Normal tTG IGA <2 Result Comment: Negative 0 - 3 Weak Positive 4 - 10 Positive >10 Tissue Transglutaminase (tTG) has been identified as the endomysial antigen. Studies have demonstr- ated that endomysial IgA antibodies have over 99% specificity for gluten sensitive enteropathy. LAB L3410.2439 Negative Normal ENDOMYSIAL IGA Negative Performed By: #### L3410.2400 #### [facility] (refer to report for specific site) refer to report for address and phone number HH, HEMOGLOBIN AND Collected: 11/11/2017 Status: F Source: [place] HEMATOCRIT 1:14 PM [facility] REPOSITORY TYPE CODE TESTS RESULT OUT OF RANGE REFERENCE UNITS LAB L100.1300 12.0-15.0 g/dl Low HGB 9.4 LAB L100.1400 37-47 % Low HCT 32.1 Performed By: #### L100.0600 #### [facility] Laboratory [address] [place], [address] ECHOCARDIOGRAM COMPLETE Observed: 11/06/2017 Status: F Source: [place] 5:45 PM [facility] REPOSITORY [facility] Cardiovascular Services [address] [place] [address] Echo Complete 11/06/17 1359 MR#: [id number] Acct: [id number] Name: GARCÍA BURROWS Rep #: [id number] : 1950 66 From: Imer Alvarado MD [...] Date Dictated: 11/06/17 1359 Date Transcribed: 11/06/171743 Set Staff Fitter: Signed LOWER EXT ARTERIAL Observed: 11/02/2017 Status: F Source: [place] STUDY 10:20 AM [facility] REPOSITORY [facility] Cardiovascular Services [address] [place] [address] 11/02/17 1015 MR#: [id number] Acct: [id number] Name: GARCÍA BURROWS Rep #: [id number] : 1950 66 From: Sarabjit Chi MD [...] Dictated: 11/02/17 1015 Date Transcribed: 11/02/17 1015 Set Staff Fitter: HANG Epps VENOUS DUPLEX LOWER Observed: 10/27/2017 Status: F Source: [place] EXTREMITY 9:32 PM [facility] REPOSITORY [facility] Cardiovascular Services [address] [place] [address] Venous Duplex US - Max Extrem 10/27/17 1319 MR#: [id number] Acct: [id number] Name: GARCÍA BURROWS Rep #: [id number] : 1950 66 From: Sarabjit Chi MD [...] preliminary report was called and/or faxed to [facility]. Interpretation Summary Deep veins of the lower [...] Date Dictated: 10/27/17 1319 Date Transcribed: 10/27/172131 Set Staff Fitter: Signed CARDIOLOGY VISIT Observed: 10/20/2017 Status: F Source: [place] REPORT 11:41 AM [facility] REPOSITORY [facility] [address] [place] [address] OFFICE VISIT Date of Service: 10/20/17 MR#: [id number] Acct: [id number] Name: GARCÍA BURROWS Rep #: [id number] : 1950 Provider: Imer Alvarado MD Age/Sex: 66/F Location: [facility] Status: Signed HPI HPI Details: GARCÍA BURROWS, [...] states she is being evaluated by the [facility] wound center for a sore on her right lower extremity. She states she is following with her primary care physician for her lipid profile. She notes this is done routinely. She did have a transthoracic echocardiogram performed at [facility] on 07/30/2016. The results are as noted below. Left ventricular systolic function is normal. The estimated ejection [id number] %. The left atrium is severely enlarged. [...] F Source: [place] AND PHYSICAL 1:49 PM [facility] REPOSITORY [facility] Wound Healing Center [facility] [place] [address] Wound Ctr History AND Physical 10/09/17 1325 MR#: [id number] Acct: [id number] Name: GARCÍA BURROWS Rep #: [id number] : 1950 66 From: Aroldo Sharma DPM [...] Date Recorded By Document 10/09/17 09:26 DL [id number] 10/09/17 09:44 DL Wound Center Nurse 1 [...] Date Recorded By Document 10/09/17 10:22 MW [id number] 10/09/17 10:32 MW Musculoskeletal: Tenderness - to aforementioned ulcer site Neurological: Sensory exam intact to light touch and pain Psych/Mental Status: Normal Affect, Appropriate Debridement Note Post-Debridement Measurements/Treatment WC - Nurse 2 - General Ulcer CM Notes Start: 10/09/17 09:03 Freq: Status: Active Protocol: Activity Type Activity Date Activity User E-Sign Co-Sign Detail Recorded Client Recorded Date Recorded By Document 10/09/17 10:22 MW [id number] 10/09/17 10:32 MW Wound Center Nurse 2 [...] W/DIFF, AUTOMATED Collected: 09/29/2017 Status: F Source: [place] 2:45 PM [facility] REPOSITORY TYPE CODE TESTS RESULT OUT OF [...] Lymph 1.48 Performed By: #### L100.0100 #### [facility] [address] [facility] [place], [place], [address] VITAMIN D,25 HYDROXY Collected: 09/29/2017 Status: F Source: [place] 2:45 PM [facility] REPOSITORY TYPE CODE TESTS RESULT OUT OF REFERENCE UNITS RANGE LAB L506.1000 29.95-100.01 ng/mL Low Vitamin D 28.5 25-OH Result Comment: Vitamin D 25(OH) Status Range Deficiency <20 ng/mL (50nmol/L) Insuffciency 20 - 30 ng/mL (50 - 75 nmol/L) Sufficiency 30 - 100 ng/mL (75 - 250 nmol/L) Toxicity >100 ng/mL (>250 nmol/L) Performed By: #### L506.1000 #### [facility] [address] [place], [address] COMPREHENSIVE METABOLIC Collected: 09/29/2017 Status: F Source: [facility] 2:45 PM [facility] REPOSITORY TYPE CODE TESTS RESULT OUT OF [...] 7 Performed By: #### L500.4050, L501.9520 #### [facility] [address] [place], [place], [address] THYROID STIM HORMONE Collected: 09/29/2017 Status: F Source: [place] ([facility]) 2:45 PM [facility] REPOSITORY TYPE CODE TESTS RESULT OUT OF RANGE REFERENCE UNITS LAB L501.9520 0.358-3.74 uIU/mL Normal TSH 1.00 Performed By: #### L500.4050, L501.9520 #### [facility] [address] [place], [place], [address] ALLERGIES ALLERGIES DATE TYPE / CODE NAME / CODE REACTION SEVERITY SOURCE 04/03/2018 Drug lisinopril/[id number] Unknown [place] Allergy/416 0658(RXNORM) [facility] 601797([facility]) Repository 04/03/2018 Drug penicillin Unknown [place] Allergy/416 G/[id number](RXNO Community 414888([facility] ED CT) Repository 04/03/2018 Drug exenatide/[id number] Unknown Unknown [place] Allergy/416 772(RXNORM) Community 407765([facility] ED CT) Repository ENCOUNTERS ENCOUNTERS ADMIT/DISCHARGE ACCOUNT ADMITTING ENCOUNTER LOCATION SOURCE NUMBER CLASS 07/27/2018 [id number] Ambulatory [place] Angel 2 [facility] ing:SP Repository 07/23/2018 [id number] Ambulatory [place] 9 [facility] ing:WC Repository 07/18/2018/ [id number] Agyepong, Inpatient Angel [place] 9 3 [place] Encounter [facility] ing:PCURoom: Repository GNY508Ynl: 1 07/18/2018 [id number] [place], Ambulatory BMSBuilding:B [place] 1 [place] Repository 07/18/2018 [id number] [place], Ambulatory BMSBuilding:B [place] 1 [place] Repository 07/18/2018 [id number] [place], Ambulatory BMSBuilding:B [place] 5 [place] Repository 07/18/2018 [id number] Agyepong, Ambulatory BMSBuilding:B [place] 9 [place] Repository 07/02/2018/ [id number] Ambulatory [place] 8 5 [facility] ing:WC Repository 06/26/2018 [id number] Ambulatory [place] Angel 7 [facility] Hospital ing:RAD Repository 06/22/2018 [id number] Ambulatory [place] 0 [facility] Hospital ing:RAD Repository 06/17/2018 [id number] Ambulatory [place] 7 [facility] Hospital ing:MRI Repository 06/16/2018 [id number] Ambulatory [place] Angel 1 [facility] Hospital ing:LABSPEC Repository 06/09/2018 [id number] Ambulatory [place] Angel 8 [facility] ing:RAD Repository 06/04/2018/ [id number] Ambulatory [place] Angel 8 7 [facility] ing:WC Repository 04/15/2018 [id number] Ambulatory [place] 3 [facility] Hospital ing:POLAB3 Repository 04/08/2018 [id number] Ambulatory [place] 9 [facility] Hospital ing:MEDOUTP Repository 04/06/2018 [id number] Ambulatory Angel Angel 5 [facility] Hospital ing:MEDOUTP Repository 04/03/2018 [id number] Ambulatory [place] 5 [facility] Hospital ing:MEDOUTP Repository 04/01/2018 [id number] Ambulatory Angel Angel 3 [facility] Hospital ing:MEDOUTP Repository 03/30/2018 [id number] Ambulatory [place] Angel 1 [facility] Hospital ing:MEDOUTP Repository 03/17/2018 [id number] Ambulatory [place] 1 [facility] Hospital ing:WC Repository 02/05/2018/ [id number] Ambulatory [place] Angel 8 7 [facility] Hospital ing:WC Repository 01/20/2018 [id number] Ambulatory [place] 8 [facility] Hospital ing:LAB.FUTUR Repository E 01/19/2018 [id number] Ambulatory [place] Angel 7 [facility] Hospital ing:LAB.FUTUR Repository E 01/15/2018 [id number] Ambulatory [place] 2 [facility] Hospital ing:LAB Repository 01/15/2018/ [id number] Ambulatory [place] Angel 8 0 [facility] ing:WC Repository 01/01/2018/ [id number] Ambulatory [place] 8 8 [facility] ing:WC Repository 12/05/2017 [id number] Ambulatory [place] Angel 1 [facility] ing:MTLAB Repository 12/04/2017/ [id number] Ambulatory [place] 8 8 [facility] Hospital ing:WC Repository 11/11/2017 [id number] Ambulatory [place] 9 [facility] Hospital ing:POLAB3 Repository 11/06/2017 [id number] Ambulatory [place] 6 [facility] Hospital ing:CVS Repository 11/06/2017 [id number] Ambulatory BMSBuilding:W [place] 6 [facility] Repository 10/30/2017/ [id number] Ambulatory [place] Angel 8 9 [facility] ing:WC Repository 10/20/2017/ [id number] Ambulatory BMSBuilding:B [place] 8 5 [place] [facility] Repository 09/29/2017 [id number] Ambulatory [place] 8 [facility] ing:POLAB3 Repository 09/03/2017 [id number] Ambulatory BMSBuilding:B [place] 5 [place] [facility] Repository PAYERS PAYERS ENCOUNTER GUARANTOR PAYER SUBSCRIBER SOURCE 07/27/2018 GARCÍA Baig [id number] Primary [place]ARC[place]A A [place] Insurance:MEDICARE PERRYDOB: [place] [facility] [id number] Hospital 84035Qdv: (330) Number: Repository [phone] ( [id number] Date:2013-11-04 07/27/2018 Secondary GARCÍA A [place] Insurance:MEDICAL PERRYDOB: [facility] [id number] Hospital Number: Repository [id number] Date:9039-44-67PD[address] [address]GF: 07/27/2018 Tertiary NOT GIVENUNK [place] Insurance:SELF PAY [facility] Number: Effective Repository Date:2018-07-14 07/23/2018 GARCÍA Bagi [id number] Primary GARCÍA A [place] Insurance:MEDICARE PERRYDOB: [place] [facility] [id number] Hospital 58241Vto: (330) Number: Repository [phone] ( [id number] Date:2018-05-14 07/23/2018 Secondary GARCÍA A [place] Insurance:MEDICAL PERRYDOB: [facility] [id number] Hospital Number: Repository [id number] Date:6173-38-53GW[address] [address]RE: 07/23/2018 Tertiary NOT GIVENUNK [place] Insurance:SELF PAY [facility] Hospital Number: Effective Repository Date:2018-07-07 07/18/2018 GARCÍA STATON Primary GARCÍA [place] Insurance:MEDICARE PERRYDOB: [place] [facility] [id number] Hospital 22316Ljc: (330) Number: Repository [phone] () [id number] Date:2018-07-18 07/18/2018 Secondary GARCÍA Baig [place] Insurance:MEDICAL PERRYDOB: [facility] [id number] Hospital Number: Repository [id number] Date:1927-18-99WV [address] [address]KI: 07/18/2018 Tertiary NOT GIVENUNK [place] Insurance:SELF PAY [facility] Number: Effective Repository Date:2018-07-18 07/18/2018 GARCÍA AVILA21 Primary GARCÍA [place] Insurance:MEDICARE PERRYDOB: [place] [facility] [id number] Hospital 406[address]Yqk: (330) Number: Repository [phone] () [id number] Date:2018-07-18 07/18/2018 Secondary GARCÍA Biag [place] Insurance:MEDICAL PERRYDOB: [facility] [id number] Hospital Number: Repository [id number] Date:7844-37-90GM [address] [address]GH: 07/18/2018 Tertiary NOT GIVENUNK [place] Insurance:SELF PAY [facility] Number: Effective Repository Date:2018-07-18 07/18/2018 GARCÍA STATON Primary [place] Insurance:MEDICARE PERRYDOB: [place] [facility] [id number] Hospital [address]Rwi: (330) Number: Repository [phone] () [id number] Date:2018-07-18 07/18/2018 Secondary GARCÍA Baig [place] Insurance:MEDICAL PERRYDOB: [facility] [id number] Hospital Number: Repository [id number] Date:3946-43-45RZ [address] [place] [address]MH: 07/18/2018 Tertiary NOT GIVENUNK [place] Insurance:SELF PAY [facility] Number: Effective Repository Date:2018-07-18 07/18/2018 GARCÍA [id number] Primary GARCÍA [place] Insurance:MEDICARE PERRYDOB: [place] [facility] [id number] Hospital 62137Cvt: (330) Number: Repository [phone] () [id number] Date:2018-07-18 07/18/2018 Secondary GARCÍA Baig [place] Insurance:MEDICAL PERRYDOB: [facility] [id number] Hospital Number: Repository [id number] Date:8099-66-04UL[address] [address]BG: 07/18/2018 Tertiary NOT GIVENUNK [place] Insurance:SELF PAY [facility] Number: Effective Repository Date:2018-07-18 07/18/2018 GARCÍA [id number] Primary GARCÍA [place] Insurance:MEDICARE PERRYDOB: [place] [facility] [id number] Hospital 20302Hhm: (330) Number: Repository [phone] () [id number] Date:2018-07-18 07/18/2018 Secondary GARCÍA Baig [place] Insurance:MEDICAL PERRYDOB: [facility] [id number] Hospital Number: Repository [id number] Date:3035-50-36RC [address] [address]XC: 07/18/2018 Tertiary NOT GIVENUNK [place] Insurance:SELF PAY [facility] Number: Effective Repository Date:2018-07-18 07/02/2018 GARCÍA [id number] Primary [place]ARCÍA A [place] Insurance:MEDICARE PERRYDOB: [place] [facility] [id number] Hospital 70649Wzm: (330) Number: Repository [phone] () [id number] Date:2018-05-14 07/02/2018 Secondary GARCÍA A [place] Insurance:PWAEL VILLARREAL PERRYDOB: [facility] SUPPLEMENT [id number] [place] [facility] Number: [id number] Date:0048-41-22XOQSLL AN [facility] [address], [place] [address]FI: 07/02/2018 Tertiary NOT GIVENUNK [place] Insurance:SELF PAY [facility] Number: Effective Repository Date:2018-06-06 06/26/2018 GARCÍA [id number] Primary GARCÍA Ort[place] Insurance:MEDICARE PERRYDOB: [place] [facility] [id number] Hospital 18252Jen: (330) Number: Repository [phone] () [id number] Date:2018-06-09 06/26/2018 Secondary GARCÍA A [place] Insurance:PAWEL VILLARREAL PERRYDOB: [facility] [id number]'s Hospital of [facility] [place] Repository Number: [id number] Date:0259-86-64XFHFKD AN [facility] [address] [address], [place] [address]GN: 06/26/2018 Tertiary NOT GIVENUNK [place] Insurance:SELF PAY [facility] Number: Effective Repository Date:2018-06-09 06/22/2018 GARCÍA [id number] Primary GARCÍA A Angel [place] Insurance:MEDICARE PERRYDOB: [place] [facility] [id number] Hospital 701[address]Xxt: (330) Number: Repository [phone] () [id number] Date:2018-06-09 06/22/2018 Secondary GARCÍA A [place] Insurance:PAWEL VILLARREAL PERRYDOB: Community SUPPLEMENT [id number]'s [facility] [place] Repository Number: [id number] Date:6452-97-96SIXTNU [facility] [place] [address] [address], [place] [address]HH: 06/22/2018 Tertiary NOT GIVENUNK Angel Insurance:SELF PAY [facility] Number: Effective Repository Date:2018-06-09 06/17/2018 GARCÍA [id number] Primary GARCÍA [place] Insurance:MEDICARE PERRYDOB: [place] [facility] [id number] Hospital 06229Vuh: (330) Number: Repository [phone] () [id number] Date:2018-06-11 06/17/2018 Secondary GARCÍA A Angel Insurance:CIGNA MCR PERRYDOB: Community SUPPLEMENT [id number]'s Hospital of [facility] [place] Repository Number: [id number] Date:9722-02-55UFFFOT [facility] [place] [address] [address], [place] [address]OA: 06/17/2018 Tertiary NOT GIVENUNK [place] Insurance:SELF PAY [facility] Number: Effective Repository Date:2018-06-11 06/16/2018 GARCÍA [id number] Primary GARCÍA [place] Insurance:MEDICARE PERRYDOB: [place] [facility] [id number] Hospital 687[address]Gmt: (330) Number: Repository [phone] () [id number] Date:2018-06-16 06/16/2018 Secondary GARCÍA A Angel Insurance:CIGNA MCR PERRYDOB: Community SUPPLEMENT [id number]'s Hospital of [facility] [place] Repository Number: [id number] Date:7888-78-91TMPQBU [facility] [employer] [facility] [address] [address]GCFLQR, [place] [address]PM: 06/16/2018 Tertiary NOT GIVENUNK [place] Insurance:SELF PAY [facility] Number: Effective Repository Date:2018-06-16 06/09/2018 GARCÍA AVILA21 Primary [place]A [place] Insurance:MEDICARE PERRYDOB: [place] [facility] [id number] Hospital 33325Gza: (330) Number: Repository [phone] () [id number] Date:2018-06-09 06/09/2018 Secondary GARCÍA A [place] Insurance:PAWEL VILLARREAL PERRYDOB: [facility] [id number]'s Hospital of [facility] [place] Repository Number: [id number] Date:5494-02-57XAFMEQ [facility] [address] [address]WYU, [place] [address]LN: 06/09/2018 Tertiary NOT GIVENUNK [place] Insurance:SELF PAY [facility]: Effective Repository Date:2018-06-09 06/04/2018 GARCÍA [id number] Primary [place] Insurance:MEDICARE PERRYDOB: [place] [facility] [id number] Hospital 87361Dtl: (330) Number: Repository [phone] () [id number] Date:2018-05-14 06/04/2018 Secondary GARCÍA A [place] Insurance:PAWEL VILLARREAL PERRYDOB: [facility] [id number]'s Hospital of [facility] [place] Repository Number: [id number] Date:1131-29-15GNTMYQ AN [facility] [address] [address]JYDEVM, [place] [address]AU: 06/04/2018 Tertiary NOT GIVENUNK [place] Insurance:SELF PAY [facility] Number: Effective Repository Date:2018-05-14 04/15/2018 GARCÍA Baig [id number] Primary GARCÍA Ort[place] Insurance:MEDICARE PERRYDOB: [place] [facility] [id number] Hospital 85236Fgc: (330) Number: Repository [phone] () [id number] Date:2018-04-15 04/15/2018 Secondary GARCÍA A [place] Insurance:CIGNA PHIL PERRYDOB: Community SUPPLEMENT [id number]'s Hospital of [facility] [place] Repository Number: [id number] Date:0955-15-68WFYRYL [facility] [employer] [facility] [address] [address], [place] [address]VS: 04/15/2018 Tertiary NOT GIVENUNK [place] Insurance:SELF PAY [facility] Number: Effective Repository Date:2018-04-15 04/08/2018 GARCÍA [id number] Primary GARCÍA [place] Insurance:MEDICARE PERRYDOB: Community [place] [facility] [id number] Hospital 16403Ucj: (330) Number: Repository [phone] () [id number] Date:2018-03-27 04/08/2018 Secondary GARCÍA A Angel Insurance:CIGNA PHIL PERRYDOB: Community SUPPLEMENT [id number]'s Hospital of [facility] [place] Repository Number: [id number] Date:7271-66-29URPYMO [employer] [place] [address] [address], [place] [address]LZ: 04/08/2018 Tertiary NOT GIVENUNK [place] Insurance:SELF PAY [facility] Number: Effective Repository Date:2018-03-27 04/06/2018 GARCÍA [id number] Primary GARCÍA [place] Insurance:MEDICARE PERRYDOB: [place] [facility] [id number] Hospital 15280Wfa: (330) Number: Repository [phone] () [id number] Date:2018-03-27 04/06/2018 Secondary GARCÍA A Angel Insurance:CIGNA PHIL PERRYDOB: Community SUPPLEMENT [id number]'s Hospital of [facility] [place] Repository Number: [id number] Date:6247-55-20DPMLFO [facility] [employer] [facility] [address] [address]GVTQLE, [place] [address]DM: 04/06/2018 Tertiary NOT GIVENUNK [place] Insurance:SELF PAY [facility] Number: Effective Repository Date:2018-03-27 04/03/2018 GARCÍA [id number] Primary GARCÍA A [place] Insurance:MEDICARE PERRYDOB: [place] [facility] [id number] Hospital 00656Fmy: (330) Number: Repository [phone] () [id number] Date:2018-03-27 04/03/2018 Secondary GARCÍA A [place] Insurance:PAWEL VILLARREAL PERRYDOB: [facility] SUPPLEMENT [id number]'s [facility] of [facility] [place] Repository Number: [id number] Date:1846-68-46WDVEST AN [employer] [facility] [address] [address]MPNXOA, [place] [address]KH: 04/03/2018 Tertiary NOT GIVENUNK [place] Insurance:SELF PAY [facility] Number: Effective Repository Date:2018-03-27 04/01/2018 GARCÍA [id number] Primary GARCÍA A [place] Insurance:MEDICARE PERRYDOB: [place] [facility] [id number] Hospital 97020Pks: (330) Number: Repository [phone] () [id number] Date:2018-03-27 04/01/2018 Secondary GARCÍA A [place] Insurance:PAWLE VILLARREAL PERRYDOB: [facility] SUPPLEMENT [id number]'s Hospital of [facility] [place] Repository Number: [id number] Date:3691-50-11JYBDPI [facility] [employer] [facility] [address] [address]IJSXQZ, [place] [address]TJ: 04/01/2018 Tertiary NOT GIVENUNK [place] Insurance:SELF PAY [facility] Number: Effective Repository Date:2018-03-27 03/30/2018 GARCÍA Baig [id number] Primary GARCÍA A [place] Insurance:MEDICARE PERRYDOB: [place] [facility] [id number] Hospital 499[address]Sbu: (330) Number: Repository [phone] () [id number] Date:2018-03-27 03/30/2018 Secondary GARCÍA A [place] Insurance:PAWEL VILLARREAL PERRYDOB: [facility] SUPPLEMENT [id number]'s Hospital of [facility] [place] Repository Number: [id number] Date:3240-28-57QWNLQS AN [employer] [place] [address] [address]KIYAU, [place] [address]UK: 03/30/2018 Tertiary NOT GIVENUNK [place] Insurance:SELF PAY [facility] Number: Effective Repository Date:2018-03-27 03/17/2018 GARCÍA [id number] Primary GARCÍA [place] Insurance:MEDICARE PERRYDOB: Community [facility] PART A [facility] [id number] Hospital 275[address]Lfa: (330) Number: Repository [phone] () [id number] Date:2017-10-09 03/17/2018 Secondary GARCÍA A [place] Insurance:CIGNA MCR PERRYDOB: Community SUPPLEMENT [id number]'s [facility] [place] Repository Number: [id number] Date:9467-30-73SEARMG C[employer] [address] [address]QFVADB, [place] [address]QA: 03/17/2018 Tertiary NOT GIVENUNK Angel Insurance:SELF PAY [facility] Number: Effective Repository Date:2018-03-07 02/05/2018 GARCÍA [id number] Primary GARCÍA [place]iz [place] Insurance:MEDICARE PERRYDOB: [facility] [place] PART A [facility] [id number] Hospital 41553Blz: (330) Number: Repository [phone] () [id number] Date:2017-10-09 02/05/2018 Secondary GARCÍA A [place] Insurance:CIGNA MCR PERRYDOB: Community SUPPLEMENT [id number]'s Hospital of [facility] [place] Repository Number: [id number] Date:7713-67-76KATQPO AN [employer] [address] [address]HJNYEV, [place] [address]VJ: 02/05/2018 Tertiary NOT GIVENUNK [place] Insurance:SELF PAY [facility] Number: Effective Repository Date:2018-02-04 01/20/2018 GARCÍA [id number] Primary [place]ARCÍA [place] Insurance:MEDICARE PERRYDOB: [place] [facility] [id number] Hospital 6[address]Vti: (330) Number: Repository [phone] () [id number] Date:2018-01-20 01/20/2018 Secondary GARCÍA A [place] Insurance:PAWEL VILLARREAL PERRYDOB: [facility] SUPPLEMENT [id number]'s Hospital of [facility] [place] Repository Number: [id number] Date:9581-09-50RNCNPA AN [employer] [facility] [address] [address]DRCHBU, [place] [address]TT: 01/20/2018 Tertiary NOT GIVENUNK Angel Insurance:SELF PAY [facility] Number: Effective Repository Date:2018-01-20 01/19/2018 GARCÍA Baig [id number] Primary GARCÍA A Angel [place] Insurance:MEDICARE PERRYDOB: [place] [facility] [id number] Hospital 55788Xmn: (330) Number: Repository [phone] () [id number] Date:2018-01-19 01/19/2018 Secondary GARCÍA A [place] Insurance:PAWEL VILLARREAL PERRYDOB: [facility] [id number]'s Hospital of [facility] [place] Repository Number: [id number] Date:1710-74-57OPBMGD AN [employer] [facility] [address] [address]HVQUVI, [place] [address]CX: 01/19/2018 Tertiary NOT GIVENUNK Angel Insurance:SELF PAY [facility] Number: Effective Repository Date:2018-01-19 01/15/2018 GARCÍA Baig [id number] Primary GARCÍA A [place] Insurance:MEDICARE PERRYDOB: [place] [facility] [id number] Hospital 28081Aqu: (330) Number: Repository [phone] () [id number] Date:2018-01-15 01/15/2018 Secondary GARCÍA A [place] Insurance:PAWEL VILLARREAL PERRYDOB: [facility] [id number][facility] [place] Repository Number: [id number] Date:0344-64-58EKLOFJ AN [employer] [facility] [address] [address]LXNNWU, [place] [address]SN: 01/15/2018 Tertiary NOT GIVENUNK [place] Insurance:SELF PAY [facility] Number: Effective Repository Date:2018-01-15 01/15/2018 GARCÍA [id number] Primary GARCÍA [place] Insurance:MEDICARE PERRYDOB: Community [facility] [facility] [id number] Hospital 547[address]Sgl: (330) Number: Repository [phone] () [id number] Date:2017-10-09 01/15/2018 Secondary GARCÍA A Angel Insurance:CIGNA MCR PERRYDOB: Community SUPPLEMENT [id number]'s [facility] of [facility] [place] Repository Number: [id number] Date:7099-10-03GAWUIV [facility] LIFE [address] [address]XGNLOV, [place] [address]DL: 01/15/2018 Tertiary NOT GIVENUNK Angel Insurance:SELF PAY [facility] Number: Effective Repository Date:2018-01-04 01/01/2018 GARCÍA [id number] Primary GARCÍA [place] Insurance:MEDICARE PERRYDOB: [facility] [place] [facility] [id number] Hospital 27757Dua: (330) Number: Repository [phone] () [id number] Date:2017-10-09 01/01/2018 Secondary GARCÍA A [place] Insurance:CIGNA MCR PERRYDOB: Community SUPPLEMENT [id number] [place] [facility] Number: [id number] Date:[id number] AN [employer] [address] [address], [place] [address]SE: 01/01/2018 Tertiary NOT GIVENUNK [place] Insurance:SELF PAY [facility]: Effective Repository Date:2017-12-05 12/05/2017 GARCÍA [id number] Primary GARCÍA LOWERY Insurance:MEDICARE PERRYDOB: [place] PART A [facility] [id number] Hospital [address]Tcy: Number: Repository [phone] [id number] (HP) Date:2017-12-05 12/05/2017 Secondary GARCÍA A [place] Insurance:PAWEL VILLARREAL PERRYDOB: [facility] SUPPLEMENT [id number] [place] [facility] Number: [id number] Date:9876-97-95DBTSWS AN CUSTODIAL [place] [address] [address], [place] [address]OJ: 12/05/2017 Tertiary NOT GIVENUNK [place] Insurance:SELF PAY [facility] Number: Effective Repository Date:2017-12-05 12/04/2017 GARCÍA [id number] Primary GARCÍA LOWERY Insurance:MEDICARE PERRYDOB: [place] [facility] [id number] Hospital [address]Jot: Number: Repository [phone] [id number] (HP) Date:2017-10-09 12/04/2017 Secondary GARCÍA A [place] Insurance:PAWEL VILLARREAL PERRYDOB: [facility] [id number][facility] Hospital [facility] [place] Number: [id number] Date:8723-84-34MQSILJN[facility] LIFE [address] [address], [place] [address]BC: 12/04/2017 Tertiary NOT GIVENUNK [place] Insurance:SELF PAY [facility] Number: Effective Repository Date:2017-11-04 11/11/2017 GARCÍA Baig [id number] Primary GARCÍA LOWERY Insurance:MEDICARE PERRYDOB: [place] [facility] [id number] Hospital [address]Bpv: Number: Repository [phone] [id number] (HP) Date:2017-10-20 11/11/2017 Secondary GARCÍA A [place] Insurance:PAWEL VILLARREAL PERRYDOB: [facility] SUPPLEMENT [id number]'s Hospital of [facility] [place] [facility] Number: [id number] Date:0064-98-62HGLSFE AN CUSTODIAL LIFE [address] [address], [place] [address]QT: 11/11/2017 Tertiary NOT GIVENUNK [place] Insurance:SELF PAY [facility] Number: Effective Repository Date:2017-10-20 11/06/2017 GARCÍA [id number] Primary GARCÍA LOWERY Insurance:MEDICARE PERRYDOB: [place] [facility] [id number] Hospital [address]Jfc: Number: Repository [phone] [id number] (HP) Date:2017-10-20 11/06/2017 Secondary GARCÍA Baig [place] Insurance:CIGNA MCR PERRYDOB: Community SUPPLEMENT [id number]'s Hospital of [facility] [place] [facility] Number: [id number] Date:3483-38-15JKNWQB AN CUSTODIAL LIFE [address] [address], [place] [address]IB: 11/06/2017 Tertiary NOT GIVENUNK [place] Insurance:SELF PAY [facility] Number: Effective Repository Date:2017-10-20 11/06/2017 GARCÍA [id number] Primary GARCÍA LOWERY Insurance:MEDICARE PERRYDOB: [place] [facility] [id number] Hospital [address]Zjr: Number: Repository [phone] [id number] (HP) Date:2017-10-20 11/06/2017 Secondary GARCÍA A [place] Insurance:CIGNA MCR PERRYDOB: Community SUPPLEMENT [id number]'s Hospital of [facility] [place] [facility] Number: [id number] Date:9000-29-16VBNDKA AN CUSTODIAL LIFE [address] [address], [place] [address]EH: 11/06/2017 Tertiary NOT GIVENUNK [place] Insurance:SELF PAY [facility] Number: Effective Repository Date:2017-11-06 10/30/2017 GARCÍA [id number] Primary GARCÍA LOWERY Insurance:MEDICARE PERRYDOB: [place] [facility] [id number] Hospital [address]Wmy: Number: Repository [phone] [id number] (HP) Date:2017-10-09 10/30/2017 Secondary GARCÍA A [place] Insurance:PAWEL VILLARREAL PERRYDOB: [facility] SUPPLEMENT [id number]'s Hospital of [facility] [place] Rep[facility] Number: [id number] Date:1640-82-13EGMVOG AN CUSTODIAL LIFE [address] [address], [place] [address]BC: 10/30/2017 Tertiary NOT GIVENUNK [place] Insurance:SELF PAY [facility] Number: Effective Repository Date:2017-10-09 10/20/2017 GARCÍA [id number] Primary GARCÍA LOWERY Insurance:MEDICARE PERRYDOB: [place] [facility] [id number] [id number]: Number: Repository [phone] [id number] (HP) Date:2017-06-23 10/20/2017 Secondary GARCÍA A [place] Insurance:PAWEL VILLARREAL PERRYDOB: [facility] [id number]'s Hospital of [place] [place] Repository Number: [id number] Date:7858-14-70QERSPY AN CUSTODIAL LIFE [address] [address], [place] [address]VK: 10/20/2017 Tertiary NOT GIVENUNK [place] Insurance:SELF PAY [facility] Number: Effective Repository Date:2017-06-23 09/29/2017 García [id number] Primary García LOWERY Insurance:MEDICARE PerryDOB: [place] [facility] [id number] Hospital [address]Hsh: Number: Repository [phone] [id number] (HP) Date:2017-09-29 09/29/2017 Secondary García A [place] Insurance:ISAACDERRELL McdonoughryDOB: Community SUPPLEMENT [id number]'s Hospital of [facility] [place] Rep[facility] Number: [id number] Date:1099-06-13JITVWA AN CUSTODIAL LIFE [address] [address], [place] [address]HL: 09/29/2017 Tertiary NOT GIVENUNK [place] Insurance:SELF PAY [facility] Number: Effective Repository Date:2017-09-29 09/03/2017 García Baig [id number] Primary García A [place] Insurance:MEDICARE [place]DOB: [place] BPolicy [id number] Hospital [address]Ywq: Number: Repository [phone] [id number] () Date:2017-09-03 09/03/2017 Secondary García A [place] Insurance:PAWEL VILLARREAL SimeonB: Community SUPPLEMENT [id number]'s Hospital of [facility] [place] Repository Number: [id number] Date:3771-12-96KCLRID AN CUSTODIAL LIFE [address] [address], [place] [address]AU: 09/03/2017 Tertiary NOT GIVENUNK [place] Insurance:SELF PAY [facility] Number: Effective Repository Date:2017-09-03
== END ==
PROVIDERS: Family Provider Family Medicine Geriatric Medicine; PCP Family Medicine Geriatric Medicine; Referring Provider Family Medicine Geriatric Medicine; Visit Provider Family Medicine Geriatric Medicine
DX: R29.898 Other symptoms and signs involving the musculoskeletal system (principal)
CPT/HCPCS: 72148

== ENCOUNTER → 2018-06-22 13:07 | Outpatient (CLI) | payer MEDICARE, OTHER, SELFPAY ==
[2018-06-18 10:14] VITALS: BMI 32.6
--- NOTE | 2018-06-22 13:13 | RAD_ITS ---
STUDY: SWALLOWING STUDY REASON FOR EXAM: Female, 67 years old. Dysphagia. TECHNIQUE: The examination was performed with Speech Pathology in attendance. Under fluoroscopic observation, the patient ingested thin barium, thick barium, barium pudding, and barium coated cracker. FLUOROSCOPY TIME: 4:04 minutes/seconds. [id number] images were obtained. RADIOLOGIST INVOLVEMENT: Radiologist was present and providing direct supervision. COMPARISON: None. FINDINGS: The following was observed during swallowing of the various mixtures of barium: Thin Barium: Transient penetration and silent aspiration with ingestion of thin liquids. Thick Barium: There was no evidence of aspiration or laryngeal penetration. Barium Pudding: There was no evidence of aspiration or laryngeal penetration. Barium Coated Cracker: There was no evidence of aspiration or laryngeal penetration. RAD/Swallowing Function w/Video IMPRESSION: Penetration and silent aspiration with the ingestion of thin liquids. The swallow study findings were discussed with the patient by the speech pathologist at the conclusion of the examination. Please see speech pathology report for more information and recommendations. Electronically Signed: Bandar Mckeon MD at 14:51 EST Tel [phone], Service support ,
--- NOTE | 2018-06-22 13:15 | SP.MBSS_ITS ---
PRIMARY / SECONDARY DIAGNOSIS: Dysphagia REFERRING PHYSICIAN: Dr. Jarvis CURRENT DIET: regular textures/thin liquids DENTITION: natural dentition present MENTAL STATUS: able to follow commands for adequate participation in MBS RESPIRATORY STATUS: oxygenating on room air PREVIOUS MODIFIED BARIUM SWALLOW STUDY: n/a REASON FOR REFERRAL: Patient reports acute onset of difficulty swallowing approx 3 weeks ago w/ sensation of food/liquid ?sticking in throat? and ?won?t go down?; patient is additionally scheduled for an esophagram on 06/26/2018. MEDICAL HISTORY: Ulcer of RLE, DMII, PV, LE edema, delayed wound healing, anemia, HLD, HTN, aortic stenosis, asthma, concussion, depression, L hip fracture s/p ORIF, GERD, hypoxia, mitral stenosis, nausea, neuropathic pain, CHIDI, pneumococcal pneumonia, vertigo. Pt is a poor historian re: personal medical history. Reports past hospitalization requiring a trach 6-7 years ago unable to provide additional details. STUDY FINDINGS: Patient participated in a Modified Barium Swallow (MBS) study on 06/22/2018. Dr. Mckeon was the radiologist present for this evaluation. This study was recorded in the lateral view and images were sent to PACs for storage. The following consistencies were presented to this patient for analysis of oropharyngeal swallow function: thin liquid, nectar thickened liquid, pudding, and a regular textured, Delfina Doone cookie. Results of the MBS are as follows: PENETRATION / ASPIRATION SCALE (PINEDA): 1 = does not enter airway 2 = enters airway/above vocal folds/ejected 3 = enters airway/above vocal folds/not ejected 4 = enters airway/contacts vocal folds/ejected 5 = enters airway/contacts vocal folds/not ejected 6 = enters airway/below vocal folds/ejected 7 = enters airway/below vocal folds/not ejected despite effort 8 = enters airway/below vocal folds/no effort PENETRATION / ASPIRATION SCALE (SCORE): 1.Thin tsp: 1 2.Thin tsp: 5 3.Thin cup: 2 trace 4.Thin cup sequential swallows: 8 trace amount 5.[place] cup: 2 scant 6.Puddin 7.[place] cup: 1 8.Cookie: 1 9.[place] cup: 1 10.Thin cup: 1 11.Thin cup: 2 trace 12.Thin cup w/ chin tuck: 2 scant IMPRESSION: ORAL PHASE CHARACTERIZED BY: LABIAL SEAL: no labial escape TONGUE CONTROL DURING BOLUS MANIPULATION: posterior escape of less than half of bolus BOLUS PREPARATION / MASTICATION: slow prolonged chewing/mashing with complete recollection BOLUS TRANSPORT / LINGUAL MOTION: slowed tongue motion ORAL RESIDUE: residue collection on oral structures PHARYNGEAL PHASE CHARACTERIZED BY: INITIATION OF PHARYNGEAL SWALLOW: bolus head in pyriforms at first hyoid excursion SOFT PALATE ELEVATION: no bolus between soft palate and pharyngeal wall LARYNGEAL ELEVATION: minimal superior movement of thyroid cartilage/minimal approximation of arytenoids cartilage to epiglottic petiole ANTERIOR HYOID EXCURSION: trace anterior movement EPIGLOTTIC MOVEMENT: partial epiglottic inversion LARYNGEAL VESTIBULE CLOSURE AT HEIGHT OF SWALLOW: incomplete laryngeal vestibule closure with narrow column of air/contrast in laryngeal vestibule PHARYNGEAL STRIPPING WAVE: pharyngeal stripping wave present / diminished PHARYNGOESOPHAGEAL SEGMENT OPENING: partial distension and partial duration; partial obstruction of flow TONGUE BASE RETRACTION: wide column of contrast between tongue base and posterior pharyngeal wall PHARYNGEAL RESIDUE: majority of contrast within or on pharyngeal structures ESOPHAGEAL PHASE CHARACTERIZED BY: ESOPHAGEAL BOLUS CLEARANCE IN THE UPRIGHT POSITION: esophageal retention EFFECTS OF TREATMENT STRATEGIES ATTEMPTED: * Chin tuck posture = not effective * Left head turn = not effective * Right head turn = not effective * Cued expectoration = not effective * Double swallow = moderately effective * Liquid chaser = moderately effective * Reduced bolus size = effective INTERPRETATION OF RESULTS: Patient presents with moderate to severe oropharyngeal dysphagia (R13.12). Oral phase primarily marked by mastication inefficiency (slow, prolonged) w/ suboptimal lingual control resulting in premature pharyngeal bolus entry and poor oral clearance w/ oral residue retention post deglutition. Pharyngeal phase primarily marked by delayed pharyngeal swallow onset timing resulting in suboptimal bolus location upon swallow onset w/ liquids reaching the pyriforms prior to pharyngeal swallow initiation. Reduced closure of the airway during deglutition attributed to poor laryngeal elevation and reduced anterior hyoid excursion resulting in insufficient epiglottic inversion and incomplete laryngeal vestibule closure. Pharyngeal dysmotility attributed to reduced tongue base retraction, reduced posterior pharyngeal stripping wave action. Tissue/mass of unknown etiology was noted to protrude from the posterior pharyngeal wall at the C4-5 level. This protrusion made contact w/ the tip of the epiglottis, preventing complete inversion and restricting pharyngeal bolus flow, resulting in retention w/in the valleculae/along the posterior laryngeal surface of the epiglottis. Incomplete epiglottic inversion and partially reduced pharyngoesophageal segment opening resulting in a significant collection of contrast retained w/in the valleculae, pyriform sinuses and lining the inferior-posterior pharyngeal wall. Trace aspiration occurred w/ thin liquids when presented via teaspoon and w/ large volume/sequential swallow. Aspiration was of a scant amount and silent in nature. Aspiration was eliminated w/ use of single sips via cup. Noted that cue cough response was insufficient to expel trace laryngotracheal aspiration, with relatively weak cough response noted. ANATOMICAL ABNORMALITIES: Tissue/mass of unknown etiology was noted to protrude from the posterior pharyngeal wall at the C4-5 level during deglutition. RECOMMENDATIONS: DIET TEXTURE RECOMMENDATIONS: * Regular textures * Thin liquids COMPENSATORY STRATEGIES RECOMMENDED: * Small bites * Small sips * Double swallow/multiple swallows as needed to assist w/ pharyngeal clearance * liquid chaser * Seated upright at 90 degrees during PO intake * Remain upright for 30-60 minutes post meal (GERD precaution) NEED FOR ADDITIONAL SKILLED SPEECH THERAPY SERVICES: Patient requires intensive skilled speech-language intervention in the outpatient setting targeting: * continued assessment of diet texture management w/ downgrade to nectar thickened liquids if any s/s diet intolerance/pulmonary complications arise * instruction with and assessment of effective compensatory strategy use * training and implementation of recommended oral and pharyngeal strengthening exercises to facilitate improved lingual and pharyngeal strengthening to improve synchrony and oral/pharyngeal bolus clearance REFERRALS: * Would strongly consider a referral for further workup via neurologist as the Patient demonstrated significant oropharyngeal weakness/dysphagia which she reports to be acute in onset, approximately 3 weeks ago. * May also consider referral to ENT for assessment of posterior pharyngeal wall d/t anatomical abnormality noted during deglutition as described above. ADDITIONAL COMMENTS/RECOMMENDATIONS: Results and recommendations were discussed with the Patient immediately following MBS completion. Images were reviewed to improve patient comprehension of deficits identified, need for adherence to recommended aspiration precautions and the importance of follow up for outpatient speech therapy services targeting dysphagia. The Patient verbalized understanding and agreement with all recommendations and education provided. IMAGE COUNT: [id number]
--- OUTSIDE RECORDS SUMMARY | 2018-09-24 03:56 | XMS RPT_ITS ---
:1950 Author Organization OHIP Support Name Relationship Address Phone RENEE RIVERAY Unavailable [address] + [place] [address] R Unavailable Unavailable Unavailable DOHENY, UBALDO Unavailable [address] + [place] [address] R Unavailable Unavailable Unavailable DOHENY, UBALDO Unavailable [address] + [place] [address] R Unavailable Unavailable Unavailable DOHENY, UBALDO Unavailable [address] + [place] [address] R Unavailable Unavailable Unavailable DOHENY, UBALDO Unavailable [address] + [place] [address] R Unavailable Unavailable Unavailable DOHENY, UBALDO Unavailable [address] + [place] [address] R Unavailable Unavailable Unavailable DOHENY, UBALDO Unavailable [address] + [place] [address] R Unavailable Unavailable Unavailable DOHENY, UBALDO Unavailable [address] + [place] [address] R Unavailable Unavailable Unavailable DOHENY, UBALDO Unavailable [address] + [place] [address] R Unavailable Unavailable Unavailable DOHENY, UBALDO Unavailable [address] + [place] [address] R Unavailable Unavailable Unavailable DOHENY, UBALDO Unavailable [address] + [place] [address] R Unavailable Unavailable Unavailable DOHENY, UBALDO Unavailable [address] + [place] [address] R Unavailable Unavailable Unavailable DOHENY, UBALDO Unavailable [address] + [place] [address] R Unavailable Unavailable Unavailable DOHENY, UBALDO Unavailable [address] + [place] [address] R Unavailable Unavailable Unavailable DOHENY, UBALDO Unavailable [address] + [place] [address] R Unavailable Unavailable Unavailable DOHENY, UBALDO Unavailable [address] + [place] [address] R Unavailable Unavailable Unavailable DOHENY, UBALDO Unavailable [address] + [place] [address] R Unavailable Unavailable Unavailable DOHENY, UBALDO Unavailable [address] + [place] [address] R Unavailable Unavailable Unavailable DOHENY, UBALDO Unavailable [address] + [place] [address] R Unavailable Unavailable Unavailable DOHENY, UBALDO Unavailable [address] + [place] [address] R Unavailable Unavailable Unavailable DOHENY, UBALDO Unavailable [address] + [place] [address] R Unavailable Unavailable Unavailable DOHENY, UBALDO Unavailable [address] + [place] [address] R Unavailable Unavailable Unavailable DOHENY, UBALDO Unavailable [address] + [place] [address] R Unavailable Unavailable Unavailable DOHENY, UBALDO Unavailable [address] + [place] [address] R Unavailable Unavailable Unavailable DOHENY, UBALDO Unavailable [address] + [place] [address] R Unavailable Unavailable Unavailable DOHENY, UBALDO Unavailable [address] + [place] [address] R Unavailable Unavailable Unavailable DOHENY, UBALDO Unavailable [address] + [place] [address] R Unavailable Unavailable Unavailable DOHENY, UBALDO Unavailable [address] + [place] [address] R Unavailable Unavailable Unavailable DOHENY, UBALDO Unavailable [address] + [place] [address] R Unavailable Unavailable Unavailable DOHENY, UBALDO Unavailable [address] + [place] [address] R Unavailable Unavailable Unavailable DOHENY, UBALDO Unavailable [address] + [place] [address] R Unavailable Unavailable Unavailable DOHENY, UBALDO Unavailable [address] + [place] [address] R Unavailable Unavailable Unavailable DOHENY, UBALDO Unavailable [address] + [place] [address] R Unavailable Unavailable Unavailable R Unavailable Unavailable Unavailable DOHENY, UBALDO Unavailable [address] + [place] [address] R Unavailable Unavailable Unavailable R Unavailable Unavailable Unavailable RENÉE WOOD Unavailable [address] + [place] [address] DOHENY, JUAN Unavailable [address] + [place] [address] R Unavailable Unavailable Unavailable RADHA WOODORA Unavailable [address] + [place] [address] DOHENY, JUAN Unavailable [address] + [place] [address] R Unavailable Unavailable Unavailable Care Team Providers [...] Care Unavailable Matheus, Albert Chi Attending Unavailable Matehus, Albert Chi Referring Unavailable Matheus, Albert Chi [...] Type 2 Oleghe, Active [place] diabetes mellitus [facility] with other skin Hospital ulcer / Repository E11.622(ICD-10) 04/01/2018 Unknown E11.9 - Type 2 Matheus, Albert Chi Active [place] diabetes mellitus Community without Hospital complications / Repository E11.9(ICD-10) 04/01/2018 Unknown E55.9 - Vitamin D Matheus, Albert Chi Active [place] deficiency, Community unspecified / Hospital E55.9(ICD-10) Repository 01/19/2018 Unknown D50.9 - Iron Matheus, Albert Chi Active [place] deficiency anemia, Community unspecified / Hospital D50.9(ICD-10) Repository 02/05/2018 Unknown F11.20 - Opioid Basali, Ayman Active [place] dependence, Community uncomplicated / Hospital F11.20(ICD-10) Repository 11/06/2017 Unknown I34.2 - MoodispaImer hayes Active [place] Nonrheumatic mitral Community (valve) stenosis / Hospital I34.2(ICD-10) Repository 11/06/2017 Unknown 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, 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[place] secondary pulmonary Community hypertension / Hospital I27.29(ICD-10) Repository 12/04/2017 Unknown I35.0 - Moodispaabigail, 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[place] Nonrheumatic aortic Community (valve) stenosis / Hospital I35.0(ICD-10) Repository 10/20/2017 Unknown I10 - Essential Moodispaabigail, 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[place] (primary) Community hypertension / Hospital I10(ICD-10) Repository PROCEDURES PROCEDURES No Procedure Records FoundRESULTS RESULTS WOUND CTR HISTORY Observed: 07/23/2018 Status: F Source: [place] AND PHYSICAL 4:30 PM [facility] REPOSITORY [facility] W[facility]aling Center [address] [place] [address] Wound Ctr History AND Physical 07/23/18 1137 MR#: [id number] Acct: [id number] Name: GARCÍA BURROWS Rep #: [id number] : 1950 67 From: Jillian Red MD [...] is now a transfer of care to al due to several ulcers above the knee. 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 She has had some dressing done by the shelter without any significant improvement. She also has [...] Recorded Date Recorded By Document 07/23/18 10:27 [id number] 07/23/18 10:44 Wound Center Nurse 1 [Ulcer [...] Date Recorded By Document 07/23/18 11:05 MW [id number] 07/23/18 11:21 MW Wound Center Nurse 2 [...] or concerns. This note was generated with [employer] software. It may contain incorrect words, spelling, and punctuation that were not noted in checking the note before signing. 07/23/18 1630 <Electronically signed by Jillian Red MD> Date Jillian Red MD CC: Signed 12 LEAD ELECTROCARDIOGRAM Observed: 07/21/2018 Status: F Source: [place] 4:39 PM [facility] REPOSITORY [facility] Cardiovascular [place] [address] 12 Lead EKG 07/18/18 1812 MR#: [id number] Acct: [id number] Name: SIMEONGARCÍA Jovanni Rep #: [id number] : 1950 67 From: Kal Rucker MD Attending Dr: José Miguel Brady MD Status: DIS IN Ordering Dr: Jose Conrad MD Date: 07/18/18 Location: [facility] Sex: F C Admitted: 07/18/18 Test Reason [...] ECG Confirmed by KAL RUCKER MD ([id number]), scientific editor MICHAEL ALFORD ([id number]) on 07/21/2018 4:39:07 PM Referred By: Britton Bryan Confirmed By:KAL RUCKER MD 07/21/18 1639 Date Kal Rucker MD CC: José Miguel Brady MD; Jose Conrad MD; Britton Bryan MD; Albert House MD Signed DISCHARGE SUMMARY Observed: 07/21/2018 Status: F Source: [place] 11:[address] [facility] Medical Records Department [address] [place] [address] Discharge Summary 07/21/18 1112 MR#: [id number] Acct: [id number] Name: GARCÍA BURROWS Rep #: [id number] : 1950 67 From: José Miguel Brady MD PCP: Albert House MD, Chi Status: ADM IN Y Location: [place] [id number] Discharge Date and Diagnosis - Problem List [...] Amplification - Final Consultations 07/18/18 22:56 Consult: Onc/Wound/director park Routine Comment: Reason for Consult:: Decubitus ulcer [...] deconditioning requested for PT OT and social work coordinator to assist with discharge planning the patient was discharged to custodial facility once insurance preset education was obtained [...] Chi, MD [Primary Care Provider] - Disposition: Alf facility Minutes spent on discharge:: 45 Patient Condition:: Stable Medical Necessity - Tobacco Use Smoking Status: Former smoker Tobacco Use: Cigarettes Meaningful Use Info Meaningful Use Diagnoses (Choose all that apply): None applicable Code Visit Inpatient E AND M: 28005 Disch Hosp 07/21/18 1115 <Electronically signed by José Miguel Brady MD> Date José Miguel Brady MD Cosigner Signature (if applicable): Date CC: José Miguel Brady MD; Albert House MD Signed TRANSFER TO EXTENDED Observed: 07/21/2018 Status: F Source: [facility] 11:08 AM [facility] REPOSITORY [facility] Medical Records Department [address] [place] [address] Transfer to Extended Care MR#: [id number] Acct: [id number] Name: GARCÍA BURORWS Rep #: [id number] : 1950 67 From: José Miguel Brady MD PCP: Albert House MD, Chi Status: ADM IN GARCÍA BURROWS (Patient) (Health Ins. Claim No.) (Day of Discharge to Facility) Certification of patient admission REQUIRED AT TIME OF ADMISSION. I CERTIFY THAT POST-HOSPITAL ECF SERVICES ARE REQUIRED TO BE GIVEN ON AN IN-PATIENT BASIS BECAUSE OF THE ABOVE NAMED PATIENT'S NEED FOR PRISON CARE ON A CONTINUING BASIS FOR THE CONDITION(S) FOR WHICH HE/SHE WAS RECEIVING IN-PATIENT HOSPITAL SERVICES PRIOR TO HIS/HER TRANSFER TO THE [facility]. 07/21/181107 <Electronically signed by José Miguel Brady [...] F Source: [place] PROFILE (BMP) 5:05 AM [facility] REPOSITORY TYPE CODE TESTS RESULT OUT OF [...] By: #### L500.2500, L501.5200 #### [facility] [address] [place], [place], [address] MAGNESIUM Collected: 07/21/2018 Status: F Source: [place] 5:05 AM [facility] REPOSITORY TYPE CODE TESTS RESULT OUT OF RANGE REFERENCE UNITS LAB L501.5200 1.6-2.6 mg/dL Normal MG 1.6 Performed By: #### L500.2500, L501.5200 #### [facility] [address] [place], [place], [address] CBC-COMPLETE BLOOD CNT Collected: 07/21/2018 Status: F Source: [place] NO DIFF 5:05 AM [facility] REPOSITORY TYPE CODE TESTS RESULT OUT OF [...] Performed By: #### L100.0500 #### [facility] [address] [facility] [place], [address] CONSULTATION Observed: 07/20/2018 Status: F Source: [place] 9:54 PM [facility] REPOSITORY [facility] Medical Records Department [address] [place] [address] Consultation 07/20/18 1432 MR#: [id number] Acct: [id number] Name: GARCÍA BURROWS Rep #: [id number] : 1950 67 From: Gallo Hogan DPM PCP: Albert House MD, Chi Status: ADM IN Y Location: [facility] [id number] Reason for Consult Date of Consultation: 07/20/18 [...] ECHOCARDIOGRAM COMPLETE Observed: 07/20/2018 Status: F Source: [place] 5:52 PM [facility] REPOSITORY [facility] Cardiovascular [place] [address] Echo Complete 07/20/18 1021 MR#: [id number] Acct: [id number] Name: GARCÍA BURROWS Rep #: [id number] : 1950 67 From: Kal Rucker MD Attending Dr: José Miguel Brady MD Status: ADM IN Ordering Dr: Britton Bryan MD Date: 07/18/18 Location: [facility] Sex: F C Admitted: 07/18/18 Reason For [...] Date Dictated: 07/20/18 1021 Date Transcribed: 07/20/181751 Furniture Technician: Signed CAROTID DUPLEX Observed: 07/20/2018 Status: F Source: [place] ULTRASOUND 11:38 AM [facility] REPOSITORY [facility] Cardiovascular Services [address] [place] [address] Carotid Duplex Ultrasound 07/20/18 1052 MR#: [id number] Acct: [id number] Name: GARCÍA BURROWS Rep #: [id number] : 1950 67 From: Philippe Nelson MD Attending Dr: José Miguel Brady MD Status: ADM IN Ordering Dr: Britton Bryan MD Date: 07/18/18 Location: [facility] Sex: F C Admitted: 07/18/18 Reason For [...] in the left bulb. Procedure Carotid Duplex 60042. Exam performed portable in patient room. Interpretation [...] Dictated: 07/20/18 1052 Date Transcribed: 07/20/18 1137 Furniture Technician: Signed BEDSIDE GLUCOSE Collected: 07/20/2018 Status: F Source: [place] 11:22 AM [facility] REPOSITORY TYPE CODE TESTS RESULT OUT OF REFERENCE UNITS RANGE LAB L501.080 70-110 mg/dL High BEDSIDE GLU 130 Result Comment: MANAGEMENT OF PATIENT CARE PER NURSING PROTOCOL Performed By: #### L501.080 #### [facility] Point of Care [address] [place] [address] BEDSIDE GLUCOSE Collected: 07/20/2018 Status: F Source: [place] 6:56 AM [facility] REPOSITORY TYPE CODE TESTS RESULT OUT OF REFERENCE UNITS RANGE LAB L501.080 70-110 mg/dL High BEDSIDE GLU 112 Result Comment: MANAGEMENT OF PATIENT CARE PER NURSING PROTOCOL Performed By: #### L501.080 #### [facility] Point of Care [address] [place] [address] BASIC METABOLIC Collected: 07/20/2018 Status: F Source: [place] PROFILE (BMP) 4:56 AM [facility] REPOSITORY TYPE CODE TESTS RESULT OUT OF [...] Performed By: #### L500.2500 #### [facility] [address] [place], [address] CBC W/DIFF, AUTOMATED Collected: 07/20/2018 Status: F Source: [place] 4:56 AM [facility] REPOSITORY TYPE CODE TESTS RESULT OUT OF [...] Performed By: #### L100.0100 #### [facility] [address] [place], [address] BEDSIDE GLUCOSE Collected: 07/19/2018 Status: F Source: [place] 9:01 PM [facility] REPOSITORY TYPE CODE TESTS RESULT OUT OF REFERENCE UNITS RANGE LAB L501.080 70-110 mg/dL High BEDSIDE GLU 169 Result Comment: MANAGEMENT OF PATIENT CARE PER NURSING PROTOCOL Performed By: #### L501.080 #### [facility] Point of Care [address] [place] [address] BEDSIDE GLUCOSE Collected: 07/19/2018 Status: F Source: [place] 4:18 PM [facility] REPOSITORY TYPE CODE TESTS RESULT OUT OF REFERENCE UNITS RANGE LAB L501.080 70-110 mg/dL High BEDSIDE GLU 157 Result Comment: MANAGEMENT OF PATIENT CARE PER NURSING PROTOCOL Performed By: #### L501.080 #### [facility] Point of Care [address] [place], [place] [address] Observed: 07/19/2018 Status: F Source: [place] CDIFF (MOLECULAR) 12:35 PM [facility] REPOSITORY Is the patient receiving laxatives? N New/unexplained onset of 3 or more stools in past 24 hrs? Y Cdiff-Molecular Normal Reference Range = Negative C. Diff DNA Negative- No toxigenic C. Diff DNA Detected NAAT METHOD Testing was performed using nucleic acid amplification Performed By: #### M100.6796 #### [facility] [address] [place], [place], [address] Observed: 07/19/2018 Status: F Source: [place] CULTURE, URINE 12:35 PM [facility] REPOSITORY Urine Culture #2 Below infection level. ORGANISM 1: Presumptive E. coli [place] Count >100,000 ORGANISM 2: GPC Poss Enterococcus sp [place] Count 1000-10,000 Presumptive E. coli: REACTION Amoxacillin/Clavulanic [...] (NF) indicates non-formulary drug at [facility]. Approval by Infectious Disease Specialist required before non-formulary drugs may be ordered and/or dispensed. Performed By: #### M100.0650 #### [facility] [address] [place], [address] BEDSIDE GLUCOSE Collected: 07/19/2018 Status: F Source: [place] 11:55 AM [facility] REPOSITORY TYPE CODE TESTS RESULT OUT OF REFERENCE UNITS RANGE LAB L501.080 70-110 mg/dL High BEDSIDE GLU 123 Result Comment: MANAGEMENT OF PATIENT CARE PER NURSING PROTOCOL Performed By: #### L501.080 #### [facility] Point of Care [address] [facility] [place] [address] BRAIN WITHOUT Observed: 07/19/2018 Status: F Source: [place] CONTRAST 8:30 AM [facility] REPOSITORY [facility] Imaging Services [address] [place] [address] Brain without Contrast MR#: [id number] Acct: [id number] Name: GARCÍA BURROWS Jovanni Rep #: [id number] : 1950 F 67 From: Lawrence Toledo MD PCP: Matheus BLACK,Albert Plascencia Status: ADM IN Study: Brain without Contrast Date of Exam: 07/20/18 Exam# [id number] Ordering Dr: Ras Patterson MD STUDY: MRI [...] Service support , CC: Ras Patterson; Albert Huose MD Furniture Technician: Signed HISTORY AND PHYSICAL Observed: 07/19/2018 Status: F Source: [place] EXAM 7:11 AM [facility] REPOSITORY [facility] Medical Records Department [address] [place] [address] History and Physical 07/18/182021 MR#: [id number] Acct: [id number] Name: GARCÍA BURROWS Rep #: [id number] : 1950 67 From: Britton Bryan MD PCP: Albert House MD, Chi Status: ADM IN Y Location: [place] [id number] Problem List (1) Sepsis Status: Acute (2) [...] than 120. -Permissive HTN for 24 hrs, retirement goal BP < 120/80 mmHg and goal [...] heparin Code Visit OBSV E AND M: 80934 Initial observation care L3 07/19/18 0711 <Electronically signed by Britton Bryan MD> Date Britton Bryan MD Cosigner Signature: Date (if applicable) CC: Britton Bryan MD; Albert House MD Signed BEDSIDE GLUCOSE Collected: 07/19/2018 Status: F Source: [place] 6:54 AM [facility] REPOSITORY TYPE CODE TESTS RESULT OUT OF REFERENCE UNITS RANGE LAB L501.080 70-110 mg/dL High BEDSIDE GLU 115 Result Comment: MANAGEMENT OF PATIENT CARE PER NURSING PROTOCOL Performed By: #### L501.080 #### [facility] Point of Care [facility] [address] [place], [place] [address] CBC-COMPLETE BLOOD CNT Collected: 07/19/2018 Status: F Source: [place] NO DIFF 5:44 AM [facility] REPOSITORY TYPE CODE TESTS RESULT OUT OF [...] Performed By: #### L100.0500 #### [facility] [address] [place], [place], [address] BASIC METABOLIC Collected: 07/19/2018 Status: F Source: [place] PROFILE (BMP) 5:44 AM [facility] REPOSITORY TYPE CODE TESTS RESULT OUT OF [...] By: #### L500.2500, L500.4100 #### [facility] [address] [facility] [address] LIPID PROFILE Collected: 07/19/2018 Status: F Source: [place] 5:44 AM [facility] REPOSITORY TYPE CODE TESTS RESULT OUT OF [...] By: #### L500.2500, L500.4100 #### [facility] [address] [facility] [address] BEDSIDE GLUCOSE Collected: 07/19/2018 Status: F Source: [place] 4:50 AM [facility] REPOSITORY TYPE CODE TESTS RESULT OUT OF REFERENCE UNITS RANGE LAB L501.080 70-110 mg/dL High BEDSIDE GLU 128 Result Comment: MANAGEMENT OF PATIENT CARE PER NURSING PROTOCOL Performed By: #### L501.080 #### [facility] Point of Care [address] [facility] [place] [address] EMERGENCY DEPARTMENT Observed: 07/18/2018 Status: F Source: [place] SUMMARY 8:25 PM [facility] REPOSITORY [facility] Medical Records Department [address] [place] [address] Emergency Department Summary 07/18/18 1814 MR#: [id number] Acct: [id number] Name: GARCÍA BURROWS #: [id number] : 1950 67 From: Jose Conrad MD [...] UTI, weakness This note was generated with [employer] dictation software. It may contain incorrect words, [...] your Primary Care Provider. Call [facility] ([phone]) or report to the closest Emergency Room. Call 911 if necessary. 07/18/182024 <Electronically signed by Jose Conrad MD> Date Jose Conrad MD Cosigner Signature (If Indicated): Date CC: Albert House MD Observed: 07/18/2018 Status: F Source: [place] CULTURE, BLOOD (WB) 8:00 PM [facility] REPOSITORY AEROBIC BOTTLE GRAM STAIN = GRAM POSITIVE COCCI DRAWN 07/18/18 AT [address] HOUSE NURSE LINE 07/22/18 0901 Opal Palm. Possible skin contamination, further Identification and sensitivity will be performed only by physician's request. ANAEROBIC BOTTLE NO GROWTH 5 DAYS. ORGANISM 1: Staphylococcus epidermidis Amount Growth Growth Performed By: #### M200.1000, M100.636 #### [facility] [address] [facility] [place], [address] Observed: 07/18/2018 Status: F Source: [place] BC GPC ID 8:00 PM [facility] REPOSITORY GPC ID Staphylococcus sp. Staphylococcus epidermidis Enterococcus sp. Not Detected Streptococcus spp. Not Detected Listeria spp Not Detected Ivone/vanB Not Detected mecA mecA Resistance Marker Detected NAAT METHOD Testing was performed using nucleic acid amplification ORGANISM 1: Staphylococcus epidermidis ORGANISM 2: mecA Resistance Marker Performed By: #### M200.1000, M100.636 #### [facility] [address] [facility] [place], [address] LACTIC ACID Collected: 07/18/2018 Status: F Source: [place] 7:40 PM [facility] REPOSITORY Order Comment: Yes/No query for Sepsis Lactate Rule Y TYPE CODE TESTS RESULT OUT OF RANGE REFERENCE UNITS LAB L503.6005 0.4-2.0 mmol/L Normal LACTIC ACID 1.1 Performed By: #### L503.6005 #### [facility] [address] [place], [address] PROTHROMBIN TIME W/INR Collected: 07/18/2018 Status: F Source: [place] 7:20 PM [facility] REPOSITORY Order Comment: REDRAW. PREVIOUS SPECIMEN REJECTED DUE TO QNS. 07/18/181857 Lilliam Knott. TYPE CODE TESTS RESULT OUT OF RANGE REFERENCE UNITS LAB L300.4150 11.7-14.9 SECONDS High PROTIME 17.2 LAB L300.4200 Normal INR 1.4 Performed By: #### L300.3900, L300.4310 #### [facility] [address] [place], [address] PARTIAL THROMBOPLAST Collected: 07/18/2018 Status: F Source: [place] TIME 7:20 PM [facility] REPOSITORY Order Comment: REDRAW. PREVIOUS SPECIMEN REJECTED DUE TO QNS. 07/18/181857 Lilliam Knott. TYPE CODE TESTS RESULT OUT OF RANGE REFERENCE UNITS LAB L300.4310 24.1-36.2 Seconds Normal PTT 30.5 Performed By: #### L300.3900, L300.4310 #### [facility] [address] [place], [address] HEMOGLOBIN A1C Collected: 07/18/2018 Status: F Source: [place] 6:42 PM [facility] REPOSITORY TYPE CODE TESTS RESULT OUT OF RANGE REFERENCE UNITS LAB L501.9985 4.2-6.3 % Normal HGB A1C 4.4 Performed By: #### L501.9985 #### [facility] [address] [place], [address] CBC W/DIFF, AUTOMATED Collected: 07/18/2018 Status: F Source: [place] 6:40 PM [facility] REPOSITORY TYPE CODE TESTS RESULT OUT OF [...] Performed By: #### L100.0100 #### [facility] [address] [place], [place], [address] BASIC METABOLIC Collected: 07/18/2018 Status: F Source: [place] PROFILE (BMP) 6:40 PM [facility] REPOSITORY Order Comment: 'TROP' Serial specimen #1, [...] By: #### L500.2500, L501.4010 #### [facility] [address] [place], [address] TROPONIN-I Collected: 07/18/2018 Status: F Source: [place] 6:40 PM [facility] REPOSITORY Order Comment: 'TROP' Serial specimen #1, #2, #3, or #4: 1 TYPE CODE TESTS RESULT OUT OF RANGE REFERENCE UNITS LAB L501.4010 <0.045 ng/mL High 0.112 TROPONIN-I Result Comment: TROPONIN-I EXPECTED VALUES <0.045 Negative 0.045 - 0.590 Consistent with Cardiac Damage > OR = 0.600 Critical Value Not every elevated troponin is indicative of MA. These values should be used with clinical judgement in examining the patient's clinical picture for diagnosis. To establish a diagnosis of MA versus myocardial injury, there must be a demonstrated rise and/or fall in the troponin values, in addition to ischemic symptoms, EKG changes, new regional wall motion abnormality, and/or angiographical evidence. PLEASE NOTE: REFERENCE RANGES EDITED 17 Performed By: #### L500.2500, L501.4010 #### [facility] Laboratory [address] [place], [address] URINALYSIS, COMPLETE Collected: 07/18/2018 Status: F Source: MCARTHUR 6:30 PM [facility] REPOSITORY Order Comment: Order Date: 07/18/18 How [...] Performed By: #### L400.0001 #### [facility] Laboratory [address] [facility] [address] [place], [place], [address] BRAIN/HEAD WITHOUT Observed: 07/18/2018 Status: F Source: ANGEL CONTRAST 6:12 PM [facility] REPOSITORY [facility] Imaging Services [address] [place] [address] Brain/Head without Contrast MR#: [id number] Acct: [id number] Name: GARCÍA BURROWS Rep #: [id number] : 1950 F 67 From: Martha Machado MD PCP: Matheus BLACK,Albert Plascencia Status: PRE ER Study: Brain/Head without Contrast Date of Exam: 07/18/18 Exam# [id number] Ordering Dr: Jose Conrad MD STUDY: CT [...] CC: Jose Conrad MD; Albert House MD Furniture Technician: Signed CHEST 1 VIEW Observed: 07/18/2018 Status: F Source: ANGEL 6:12 PM [facility] REPOSITORY [facility] [place] [address] Chest 1 View MR#: [id number] Acct: [id number] Name: GARCÍA BURROWS Rep #: [id number] : 1950 F 67 From: Balwinder Bermudez MD PCP: Albert House MD, Chi Status: REG ER Study: Chest 1 View Date of Exam: 07/18/18 Exam# [id number] Ordering Dr: Jose Conrad MD STUDY: X-RAY [...] CC: Jose Conrad MD; Albert House MD Furniture Technician: Signed BEDSIDE GLUCOSE Collected: 07/18/2018 Status: F Source: ANGEL 6:11 PM [facility] REPOSITORY TYPE CODE TESTS RESULT OUT OF REFERENCE UNITS RANGE LAB L501.080 70-110 mg/dL High BEDSIDE GLU 142 Result Comment: MANAGEMENT OF PATIENT CARE PER NURSING PROTOCOL Performed By: #### L501.080 #### [facility] Laboratory Point of Care [address] [place] [address] ESOPHAGUS ONLY Observed: 06/26/2018 Status: F Source: ANGEL 9:51 AM [facility] REPOSITORY [facility] Imaging Services [address] [place] [address] Esophagus Only MR#: [id number] Acct: [id number] Name: GARCÍA BURROWS Rep #: [id number] : 1950 F 67 From: Bandar Mckeon MD PCP: Matheus BLACK,Albert Plascencia Status: REG CLI Study: Esophagus Only Date of Exam: 06/26/18 Exam# [id number] Ordering Dr: Albert House MD STUDY: X-RAY [...] Bandar Mckeon MD at 13:18 EST Tel [phone], Service support , CC: Albert House MD Furniture Technician: Signed MODIFIED BARIUM Observed: 06/22/2018 Status: F Source: MC[place]UR SWALLOW STUDY 6:10 PM [facility] REPOSITORY [facility] Speech Pathology [address] [place] [address] Modified Barium Swallow Study MR#: [id number] Acct: [id number] Name: GARCÍA BURROWS Rep #: [id number] : 1950 67 From: Shanon Wesley M.A. CCC-INTERNATIONAL TRADE MANAGER PRIMARY / SECONDARY DIAGNOSIS: Dysphagia REFERRING PHYSICIAN: [...] 4.Thin cup sequential swallows: 8 trace amount 5.[place] cup: 2 scant 6.Puddin 7.[place] cup: 1 8.Cookie: 1 9.[place] cup: 1 10.Thin cup: 1 11.Thin cup: [...] 1810 <Electronically signed by Shanon Wesley M.A., CCC-INTERNATIONAL TRADE MANAGER> Date Shanon Wesley M.A. CCC-INTERNATIONAL TRADE MANAGER Co-Signature Required for all Medicare patients Date/Time Co-Signature CC: SWALLOWING FUNCTION Observed: 06/22/2018 Status: F Source: MCAR[place]UR W/VIDEO 1:13 PM [facility] REPOSITORY [facility] Imaging Services [address] [place] [address] Swallowing Function w/Video MR#: [id number] Acct: [id number] Name: GARCÍA BURROWS Rep #: [id number] : 1950 F 67 From: Bandar Mckeon MD PCP: Albert House MD, Chi Status: REG CLI Study: Swallowing Function w/Video Date of Exam: 06/22/18 Exam# [id number] Ordering Dr: Albert House MD STUDY: SWALLOWING [...] Bandar Mckeon MD at 14:51 EST Tel [phone], Service support , CC: Albert House MD Furniture Technician: Signed SPINE LUMBAR Observed: 06/17/2018 Status: F Source: MCARTHUR (ROUTINE) 12:52 PM [facility] REPOSITORY [facility] Imaging Services [address] [place] [address] Spine Lumbar (Routine) MR#: [id number] Acct: [id number] Name: GARCÍA BURROWS Rep #: [id number] : 1950 F 67 From: Gallo Marie MD PCP: Albert House MD, Chi Status: REG CLI Study: Spine Lumbar (Routine) Date of Exam: 06/17/18 Exam# [id number] Ordering Dr: Albert House MD STUDY: MRI [...] Service support , CC: Albert House MD Furniture Technician: Signed Observed: 06/16/2018 Status: F Source: ANGEL CULTURE, URINE 2:05 PM [facility] REPOSITORY Urine Culture ORGANISM 1: Presumptive E. coli [place] Count >100,000 Presumptive E. coli: REACTION Amoxacillin/Clavulanic [...] (NF) indicates non-formulary drug at [facility]. Approval by Infectious Disease Specialist required before non-formulary drugs may be ordered and/or dispensed. Performed By: #### M100.0650 #### [facility] Laboratory [address] [place], [address] LUMBAR SPINE 2 OR 3 Observed: 06/09/2018 Status: F Source: [place] VIEWS 4:15 PM [facility] REPOSITORY [facility] Imaging Services [address] [place] [address] Lumbar Spine 2 or 3 Views MR#: [id number] Acct: [id number] Name: GARCÍA BURROWS Rep #: [id number] : 1950 F 67 From: Bandar Mckeon MD PCP: Albert House MD, Chi Status: REG CLI Study: Lumbar Spine 2 or 3 Views Date of Exam: 06/09/18 Exam# [id number] Ordering Dr: Albert House MD STUDY: X-RAY [...] Bandar Mckeon MD at 16:00 EST Tel [phone], Service support , CC: Albert House MD Furniture Technician: Signed IRON BINDING Collected: 04/15/2018 Status: F Source: [facility],TOTAL 2:32 PM [facility] REPOSITORY TYPE CODE TESTS RESULT OUT OF RANGE REFERENCE UNITS LAB L503.6075 250-450 ug/dL Low TIBC 173 Performed By: #### L503.6075, L503.6150 #### [facility] Laboratory [address] [place], [place], [address] IRON Collected: 04/15/2018 Status: F Source: MC[place]UR 2:32 PM [facility] REPOSITORY TYPE CODE TESTS RESULT OUT OF RANGE REFERENCE UNITS LAB L503.6150 50-170 ug/dL Normal IRON 96 Performed By: #### L503.6075, L503.6150 #### [facility] Laboratory [address] [place], [place], [address] CBC W/DIFF, AUTOMATED Collected: 04/15/2018 Status: F Source: MCAR[place]UR 2:32 PM [facility] REPOSITORY TYPE CODE TESTS RESULT OUT OF [...] Performed By: #### L100.0100 #### [facility] [address] [facility] [place], [address] LIVER Observed: 04/06/2018 Status: F Source: [place] 8:55 AM [facility] REPOSITORY [facility] Imaging Services [address] [place] [address] Liver MR#: [id number] Acct: [id number] Name: GARCÍA BURROWS Rep #: [id number] : 1950 F 67 From: Marcial Winston DO PCP: Albert House MD, Chi Status: REG CLI Study: Liver Date of Exam: 04/06/18 Exam# [id number] Ordering Dr: Albert House MD STUDY: ABDOMINAL [...] Marcial Winston DO at 17:15 EDT Tel [phone], Service support , CC: Albert House MD Furniture Technician: Signed HEPATITIS ABC PROFILE Collected: 03/31/2018 Status: F Source: [place] 2:44 PM [facility] REPOSITORY TYPE CODE TESTS RESULT OUT OF RANGE REFERENCE UNITS LAB L3100.0200 Negative Normal HEP A Negative IgM 6734 LAB L3100.0300 Negative Normal HEP A Negative AB,T.6726 LAB L3100.0400 Negative Normal HB Negative SURF AG LAB L3100.0440 Negative Normal HB Negative CORE [id number] LAB L3100.0460 Negative High HEP B Positive [...] indicate HCV infection. Performed at: - [facility] [address] [id number] Sanitation Technician: Leroy Pimentel PhD, Phone: [phone] Performed By: #### L3000.0700 #### [facility] (refer to report for specific site) refer to report for address and phone number CBC W/DIFF, AUTOMATED Collected: 03/30/2018 Status: F Source: ANGEL 2:44 PM [facility] REPOSITORY TYPE CODE TESTS RESULT OUT OF [...] Performed By: #### L100.0100 #### [facility] [address] [place], [address] COMPREHENSIVE METABOLIC Collected: 03/30/2018 Status: F Source: ANGEL BRENNAN 2:44 PM [facility] REPOSITORY TYPE CODE TESTS RESULT OUT OF [...] By: #### L500.4050, L501.9520 #### [facility] [address] [place], [address] THYROID STIM HORMONE Collected: 03/30/2018 Status: F Source: ANGEL (TSH) 2:44 PM [facility] REPOSITORY TYPE CODE TESTS RESULT OUT OF RANGE REFERENCE UNITS LAB L501.9520 0.358-3.74 uIU/mL Normal TSH 1.79 Performed By: #### L500.4050, L501.9520 #### [facility] [address] [place], [address] VITAMIN D,25 HYDROXY Collected: 03/30/2018 Status: F Source: ANGEL 2:44 PM [facility] REPOSITORY TYPE CODE TESTS RESULT OUT OF RANGE REFERENCE UNITS LAB L506.1000 29.95-100.01 ng/mL Normal Vitamin D 35.1 25-OH Result Comment: Vitamin D 25(OH) Status Range Deficiency <20 ng/mL (50nmol/L) Insuffciency 20 - 30 ng/mL (50 - 75 nmol/L) Sufficiency 30 - 100 ng/mL (75 - 250 nmol/L) Toxicity >100 ng/mL (>250 nmol/L) Performed By: #### L506.1000 #### [facility] [address] [place], [address] CBC W/DIFF, AUTOMATED Collected: 01/19/2018 Status: F Source: ANGEL 5:11 PM [facility] REPOSITORY TYPE CODE TESTS RESULT OUT OF [...] Performed By: #### L100.0100 #### [facility] [address] [place], [address] COMPREHENSIVE METABOLIC Collected: 01/19/2018 Status: F Source: [facility] 5:11 PM [facility] REPOSITORY TYPE CODE TESTS RESULT OUT OF [...] L500.4050, L501.9520, L503.6075, L503.6150 #### [facility] [address] [place], [address] THYROID STIM HORMONE Collected: 01/19/2018 Status: F Source: ANGEL (TSH) 5:11 PM [facility] REPOSITORY TYPE CODE TESTS RESULT OUT OF RANGE REFERENCE UNITS LAB L501.9520 0.358-3.74 uIU/mL Normal TSH 1.22 Performed By: #### L500.4050, L501.9520, L503.6075, L503.6150 #### [facility] Laboratory [address] [place], [address] IRON BINDING Collected: 01/19/2018 Status: F Source: ANGEL CAPACITY,TOTAL 5:11 PM [facility] REPOSITORY TYPE CODE TESTS RESULT OUT OF RANGE REFERENCE UNITS LAB L503.6075 250-450 ug/dL Normal TIBC 334 Performed By: #### L500.4050, L501.9520, L503.6075, L503.6150 #### [facility] [address] [place], [address] IRON Collected: 01/19/2018 Status: F Source: ANGEL 5:11 PM [facility] REPOSITORY TYPE CODE TESTS RESULT OUT OF RANGE REFERENCE UNITS LAB L503.6150 50-170 ug/dL Normal IRON 57 Performed By: #### L500.4050, L501.9520, L503.6075, L503.6150 #### [facility] [address] [place], [address] URINE DRUG SCREEN Collected: 01/15/2018 Status: F Source: ANGEL (VISTA) 12:00 PM [facility] REPOSITORY Order Comment: Comments: TRAMADOL [id number] URINE List of Drugs Taken or Suspected? [...] Performed By: #### L505.5000 #### [facility] [address] [place], [address] MISCELLANEOUS LAB Collected: 01/15/2018 Status: F Source: ANGEL PROCEDURE 12:00 PM [facility] REPOSITORY Order Comment: Comments: TRAMADOL [id number] URINE Test(s) Ordered: #[id number] Run Lowest Urine Toxicology TYPE CODE TESTS RESULT OUT OF RANGE REFERENCE UNITS LAB L801.1541 Normal [facility] LAB TEST Result Comment: [id number] 6+OXYCODONE-BUND (ng/mL) DRUG RESULT SCREEN CUTOFF ____ Amphetamines,Urine Negative ng/mL 1000 Amphetamine test includes Amphetamine and Methamphetamine. Barbiturates Negative ng/mL 200 Benzodiazepines Negative ng/mL 200 Cannabinoid Negative ng/mL 20 Cocaine (Metab) Negative ng/mL 300 Opiates Negative ng/mL 300 Opiates test includes Codeine, Morphine, Hydromorphone, Hydrocodone. Oxycodone/Oxymorphone,Urine Negative ng/mL 300 Test includes Oxydodone and Oxymorphone. TESTING PERFORMED AT [facility]. ORIGINAL REPORT ON FILE IN LAB CONTAINS ADDITIONAL TEST SITE INFORMATION. Performed By: #### L801.1541 #### [facility] Laboratory [address] [place], [address] MISCELLANEOUS LAB Collected: 01/15/2018 Status: F Source: ANGEL PROCEDURE 2 12:00 PM [facility] REPOSITORY Order Comment: Comments: TRAMADOL [id number] URINE List Test(s) Ordered by Physician: TRAMADOL [id number] URINE TYPE CODE TESTS RESULT OUT OF RANGE REFERENCE UNITS LAB L801.1543 Normal MISC LAB TEST 2 Result Comment: TEST RESULT UNITS REFERENCE INTERVAL TRAMADOL POSITIVE CUTOFF = 200 TRAMADOL GC/MS CONF >3000 ng/mL CUTOFF = 100 TESTING PERFORMED AT [facility]. ORIGINAL REPORT ON FILE IN LAB CONTAINS ADDITIONAL TEST SITE INFORMATION. Performed By: #### L801.1543 #### [facility] [address] [place], [address] IRON+IRON BINDING Collected: 12/05/2017 Status: F Source: ANGEL CAPACITY 10:56 AM [facility] REPOSITORY Order Comment: Comments: HUANG TYPE CODE TESTS RESULT OUT OF RANGE REFERENCE UNITS LAB L503.6075 250-450 ug/dL TIBC Normal 412 LAB L503.6150 50-170 ug/dL Low IRON 23 LAB L503.6250 15.0-55.0 % Low IRON SATURATION 5.6 Performed By: #### L503.6030, L503.6550 #### [facility] [address] [place], [address] FERRITIN Collected: 12/05/2017 Status: F Source: ANGEL 10:56 AM [facility] REPOSITORY Order Comment: Comments: HUANG TYPE CODE TESTS RESULT OUT OF REFERENCE UNITS RANGE LAB L503.6550 8-252 ng/mL Low FERRITIN 5 Performed By: #### L503.6030, L503.6550 #### [facility] Laboratory [address] [place], [place], [address] CBC-COMPLETE BLOOD CNT Collected: 12/05/2017 Status: F Source: ANGEL NO DIFF 10:56 AM [facility] REPOSITORY TYPE CODE TESTS RESULT OUT OF [...] #### L100.0500, L100.9950, L100.4500 #### [facility] [address] [place], [place], [address] RETIC PANEL Collected: 12/05/2017 Status: C Source: ANGEL 10:56 AM [facility] REPOSITORY TYPE CODE TESTS RESULT OUT OF [...] #### L100.0500, L100.9950, L100.4500 #### [facility] Laboratory [address] [place], [address] DIFFERENTIAL COMMENT Collected: 12/05/2017 Status: F Source: ANGEL 10:56 AM [facility] REPOSITORY TYPE CODE TESTS RESULT OUT OF RANGE REFERENCE UNITS LAB L100.4500 Normal SMEAR COMMENT Result Comment: 2+ ANISOCYTOSIS 1+ HYPOCHROMIA Performed By: #### L100.0500, L100.9950, L100.4500 #### [facility] [address] [place], [address] CELIAC DISEASE Collected: 12/05/2017 Status: F Source: ANGEL PROFILE 10:56 AM [facility] REPOSITORY TYPE CODE TESTS RESULT OUT OF RANGE REFERENCE UNITS LAB L3200.1400 87-352 mg/dL Normal IMMUNO A 213 Result Comment: Performed at: - [facility] [address] [id number] Sanitation Technician: Leroy Pimentel PhD, Phone: [phone] LAB L3705.1452 0-3 U/mL Normal tTG IGA <2 Result Comment: Negative 0 - 3 Weak Positive 4 - 10 Positive >10 Tissue Transglutaminase (tTG) has been identified as the endomysial antigen. Studies have demonstr- ated that endomysial IgA antibodies have over 99% specificity for gluten sensitive enteropathy. LAB L3410.8132 Negative Normal ENDOMYSIAL IGA Negative Performed By: #### L3410.2400 #### [facility] (refer to report for specific site) refer to report for address and phone number HH, HEMOGLOBIN AND Collected: 11/11/2017 Status: F Source: ANGEL HEMATOCRIT 1:14 PM [facility] REPOSITORY TYPE CODE TESTS RESULT OUT OF RANGE REFERENCE UNITS LAB L100.1300 12.0-15.0 g/dl Low HGB 9.4 LAB L100.1400 37-47 % Low HCT 32.1 Performed By: #### L100.0600 #### [facility] [address] [place], [address] ECHOCARDIOGRAM COMPLETE Observed: 11/06/2017 Status: F Source: MCAR[place]UR 5:45 PM [facility] REPOSITORY [facility] Cardiovascular Services [address] [place] [address] Echo Complete 11/06/17 1359 MR#: [id number] Acct: [id number] Name: GARCÍA BURROWS Rep #: [id number] : 1950 66 From: Imer Alvarado MD [...] Date Dictated: 11/06/17 1359 Date Transcribed: 11/06/171743 Furniture Technician: Signed LOWER EXT ARTERIAL Observed: 11/02/2017 Status: F Source: MC[place]UR STUDY 10:20 AM [facility] REPOSITORY [facility] Cardiovascular Services [address] [place] [address] 11/02/17 1015 MR#: [id number] Acct: [id number] Name: GARCÍA BURROWS Rep #: [id number] : 1950 66 From: Sarabjit Chi MD [...] Dictated: 11/02/17 1015 Date Transcribed: 11/02/17 1015 Furniture Technician: HANG Epps VENOUS DUPLEX LOWER Observed: 10/27/2017 Status: F Source: MC[place]UR EXTREMITY 9:32 PM [facility] REPOSITORY [facility] Cardiovascular Services [address] [place] [address] Venous Duplex US - Max Extrem 10/27/17 1319 MR#: [id number] Acct: [id number] Name: GARCÍA BURROWS Rep #: [id number] : 1950 66 From: Sarabjit Chi MD [...] preliminary report was called and/or faxed to [facility]. Interpretation Summary Deep veins of the lower [...] Date Dictated: 10/27/17 1319 Date Transcribed: 10/27/172131 Furniture Technician: Signed CARDIOLOGY VISIT Observed: 10/20/2017 Status: F Source: ANGEL REPORT 11:41 AM [facility] REPOSITORY [facility] [address] [place] [address] OFFICE VISIT Date of Service: 10/20/17 MR#: [id number] Acct: [id number] Name: GARCÍA BURROWS Rep #: [id number] : 1950 Provider: Imer Alvarado MD Age/Sex: 66/F Location: [facility] Status: Signed HPI HPI Details: GARCÍA [...] is being evaluated by the [facility] wound center for a sore on her right lower extremity. She states she is following with her primary care physician for her lipid profile. She notes this is done routinely. She did have a transthoracic echocardiogram performed at [facility] on 07/30/2016. The results are as noted below. Left ventricular systolic function is normal. The estimated ejection [id number] %. The left atrium is severely enlarged. [...] 30 10/20/17 1141 <Electronically signed by Imer Alavrado MD> Date Imer Alvarado MD Cosigner Signature: Date (if applicable) CC: Albert House MD WOUND CTR HISTORY Observed: 10/09/2017 Status: F Source: ANGEL AND PHYSICAL 1:49 PM [facility] REPOSITORY [facility] Wound Healing Center [facility] [place] [address] Wound Ctr History AND Physical 10/09/17 1325 MR#: [id number] Acct: [id number] Name: GARCÍA BURROWS Rep #: [id number] : 1950 66 From: Aroldo Sharma DPM [...] Date Recorded By Document 10/09/17 09:26 DL [id number] 10/09/17 09:44 DL Wound Center Nurse 1 [...] Date Recorded By Document 10/09/17 10:22 MW [id number] 10/09/17 10:32 MW Musculoskeletal: Tenderness - to aforementioned ulcer site Neurological: Sensory exam intact to light touch and pain Psych/Mental Status: Normal Affect, Appropriate Debridement Note Post-Debridement Measurements/Treatment WC - Nurse 2 - General Ulcer CM Notes Start: 10/09/17 09:03 Freq: Status: Active Protocol: Activity Type Activity Date Activity User E-Sign Co-Sign Detail Recorded Client Recorded Date Recorded By Document 10/09/17 10:22 MW [id number] 10/09/17 10:32 MW Wound Center Nurse 2 [...] W/DIFF, AUTOMATED Collected: 09/29/2017 Status: F Source: MC[place] 2:45 PM [facility] REPOSITORY TYPE CODE TESTS RESULT OUT OF [...] Performed By: #### L100.0100 #### [facility] [address] [facility] [place], [place], [address] VITAMIN D,25 HYDROXY Collected: 09/29/2017 Status: F Source: MC[place]UR 2:45 PM [facility] REPOSITORY TYPE CODE TESTS RESULT OUT OF REFERENCE UNITS RANGE LAB L506.1000 29.95-100.01 ng/mL Low Vitamin D 28.5 25-OH Result Comment: Vitamin D 25(OH) Status Range Deficiency <20 ng/mL (50nmol/L) Insuffciency 20 - 30 ng/mL (50 - 75 nmol/L) Sufficiency 30 - 100 ng/mL (75 - 250 nmol/L) Toxicity >100 ng/mL (>250 nmol/L) Performed By: #### L506.1000 #### [facility] [address] [facility] [place], [address] COMPREHENSIVE METABOLIC Collected: 09/29/2017 Status: F Source: [facility] 2:45 PM [facility] REPOSITORY TYPE CODE TESTS RESULT OUT OF [...] By: #### L500.4050, L501.9520 #### [facility] [address] [place], [place], [address] THYROID STIM HORMONE Collected: 09/29/2017 Status: F Source: [place] (TSH) 2:45 PM [facility] REPOSITORY TYPE CODE TESTS RESULT OUT OF RANGE REFERENCE UNITS LAB L501.9520 0.358-3.74 uIU/mL Normal TSH 1.00 Performed By: #### L500.4050, L501.9520 #### [facility] [address] [place], [place], [address] ALLERGIES ALLERGIES DATE TYPE / CODE NAME / CODE REACTION SEVERITY SOURCE 04/03/2018 Drug lisinopril/[id number] Unknown [place] Allergy/416 0658(RXNORM) [facility] 338422([facility]) Repository 04/03/2018 Drug penicillin Unknown [place] Allergy/416 G/[id number](RXNO [facility] 401098([facility] ED CT) Repository 04/03/2018 Drug exenatide/[id number] Unknown Unknown [place] Allergy/416 772(RXNORM) [facility] 275813([facility] ED [facility]) Repository ENCOUNTERS ENCOUNTERS ADMIT/DISCHARGE ACCOUNT ADMITTING ENCOUNTER LOCATION SOURCE NUMBER CLASS 07/27/2018 [id number] Ambulatory [place] 2 [facility] ing:SP Repository 07/23/2018 [id number] Ambulatory [place] 9 [facility] ing:WC Repository 07/18/2018/ [id number] Agyep[place], Inpatient [place] 9 3 [place] Encounter [facility] ing:PCURoom: Repository [id number]: 1 07/18/2018 [id number] [place], Ambulatory BMSBuilding:B [place] 1 [place] Repository 07/18/2018 [id number] [place], Ambulatory BMSBuilding:B [place] 1 [place] Repository 07/18/2018 [id number] [place], Ambulatory BMSBuilding:B [place] 5 [place] Repository 07/18/2018 [id number] [place], Ambulatory BMSBuilding:B [place] 9 [place] Repository 07/02/2018/ [id number] Ambulatory [place] 8 5 [facility] ing:WC Repository 06/26/2018 [id number] Ambulatory Angel Angel 7 [facility] Hospital ing:RAD Repository 06/22/2018 [id number] Ambulatory [place] 0 [facility] Hospital ing:RAD Repository 06/17/2018 [id number] Ambulatory [place] 7 [facility] Hospital ing:MRI Repository 06/16/2018 [id number] Ambulatory [place] 1 [facility] Hospital ing:LABSPEC Repository 06/09/2018 [id number] Ambulatory [place] Angel 8 [facility] ing:RAD Repository 06/04/2018/ [id number] Ambulatory [place] 8 7 [facility] ing:WC Repository 04/15/2018 [id number] Ambulatory [place] 3 [facility] Hospital ing:POLAB3 Repository 04/08/2018 [id number] Ambulatory [place] 9 [facility] Hospital ing:MEDOUTP Repository 04/06/2018 [id number] Ambulatory [place] Angel 5 [facility] Hospital ing:MEDOUTP Repository 04/03/2018 [id number] Ambulatory [place] 5 [facility] Hospital ing:MEDOUTP Repository 04/01/2018 [id number] Ambulatory Angel Angel 3 [facility] Hospital ing:MEDOUTP Repository 03/30/2018 [id number] Ambulatory [place] Angel 1 [facility] Hospital ing:MEDOUTP Repository 03/17/2018 [id number] Ambulatory [place] 1 [facility] Hospital ing:WC Repository 02/05/2018/ [id number] Ambulatory [place] Angel 8 7 [facility] Hospital ing:WC Repository 01/20/2018 [id number] Ambulatory [place] 8 [facility] Hospital ing:LAB.FUTUR Repository E 01/19/2018 [id number] Ambulatory [place] Angel 7 [facility] Hospital ing:LAB.FUTUR Repository E 01/15/2018 [id number] Ambulatory [place] 2 [facility] Hospital ing:LAB Repository 01/15/2018/ [id number] Ambulatory Angel Angel 8 0 [facility] Hospital ing:WC Repository 01/01/2018/ [id number] Ambulatory [place] 8 8 [facility] Hospital ing:WC Repository 12/05/2017 [id number] Ambulatory [place] Angel 1 [facility] Hospital ing:MTLAB Repository 12/04/2017/ [id number] Ambulatory [place] 8 8 [facility] Hospital ing:WC Repository 11/11/2017 [id number] Ambulatory [place] 9 [facility] Hospital ing:POLAB3 Repository 11/06/2017 [id number] Ambulatory [place] 6 [facility] Hospital ing:CVS Repository 11/06/2017 [id number] Ambulatory BMSBuilding:W [place] 6 [facility] Repository 10/30/2017/ [id number] Ambulatory [place] Angel 8 9 [facility] ing:WC Repository 10/20/2017/ [id number] Ambulatory BMSBuilding:B [place] 8 5 [facility] Repository 09/29/2017 [id number] Ambulatory [place] 8 [facility] ing:POLAB3 Repository 09/03/2017 [id number] Ambulatory BMSBuilding:B [place] 5 [facility] Repository PAYERS PAYERS ENCOUNTER GUARANTOR PAYER SUBSCRIBER SOURCE 07/27/2018 GARCÍA Baig [id number] Primary GARCÍA A [place] Insurance:MEDICARE PERRYDOB: [place] PART A [facility] [id number] Hospital [address]Exd: (330) Number: Repository [phone] ( [id number] Date:2013-11-04 07/27/2018 Secondary GARCÍA A Angel Insurance:MEDICAL PERRYDOB: [facility] [id number] Hospital Number: Repository [id number] Date:0372-38-16LV[address] [address]GL: 07/27/2018 Tertiary NOT GIVENUNK [place] Insurance:SELF PAY [facility] Number: Effective Repository Date:2018-07-14 07/23/2018 GARCÍA Baig [id number] Primary GARCÍA A [place] Insurance:MEDICARE PERRYDOB: [place] PART [place] [facility] [id number] Hospital 00041Jpa: (330) Number: Repository [phone] ( [id number] Date:2018-05-14 07/23/2018 Secondary GARCÍA A Angel Insurance:MEDICAL PERRYDOB: [facility] [id number] Hospital Number: Repository [id number] Date:1298-67-04JI[address] [address]SB: 07/23/2018 Tertiary NOT GIVENUNK Angel Insurance:SELF PAY [facility] Number: Effective Repository Date:2018-07-07 07/18/2018 GARCÍA STATON Primary GARCÍA [place] Insurance:MEDICARE PERRYDOB: [place] PART [place] [facility] [id number] Hospital 41925Efx: (330) Number: Repository [phone] () [id number] Date:2018-07-18 07/18/2018 Secondary GARCÍA Baig [place] Insurance:MEDICAL PERRYDOB: [facility] [id number] Hospital Number: Repository [id number] Date:7729-14-92MR [address] [address]QS: 07/18/2018 Tertiary NOT GIVENUNK [place] Insurance:SELF PAY [facility] Number: Effective Repository Date:2018-07-18 07/18/2018 GARCÍA AVILA21 Primary GARCÍA [place] Insurance:MEDICARE PERRYDOB: [place] [facility] [id number] Hospital 613[address]Hnb: (330) Number: Repository [phone] () [id number] Date:2018-07-18 07/18/2018 Secondary GARCÍA Baig [place] Insurance:MEDICAL PERRYDOB: [facility] [id number] Hospital Number: Repository [id number] Date:7949-80-72CZ [address] [address]ZV: 07/18/2018 Tertiary NOT GIVENUNK Angel Insurance:SELF PAY [facility] Number: Effective Repository Date:2018-07-18 07/18/2018 GARCÍA STATON Primary [place] Insurance:MEDICARE PERRYDOB: [place] PART [place] [facility] [id number] Hospital [address]Nvg: (330) Number: Repository [phone] () [id number] Date:2018-07-18 07/18/2018 Secondary GARCÍA Baig [place] Insurance:MEDICAL PERRYDOB: [facility] [id number] Hospital Number: Repository [id number] Date:8098-25-72KT [address] [place] [address]WK: 07/18/2018 Tertiary NOT GIVENUNK Angel Insurance:SELF PAY [facility] Number: Effective Repository Date:2018-07-18 07/18/2018 GARCÍA [id number] Primary GARCÍA [place] Insurance:MEDICARE PERRYDOB: [place] [facility] [id number] Hospital 346[address]Orq: (330) Number: Repository [phone] () [id number] Date:2018-07-18 07/18/2018 Secondary GARCÍA Baig [place] Insurance:MEDICAL PERRYDOB: [facility] [id number] Hospital Number: Repository [id number] Date:4007-27-58SJ[address] [address]SS: 07/18/2018 Tertiary NOT GIVENUNK Angel Insurance:SELF PAY [facility] Number: Effective Repository Date:2018-07-18 07/18/2018 GARCÍA [id number] Primary GARCÍA [place] Insurance:MEDICARE PERRYDOB: [place] [facility] [id number] Hospital 24586Qxs: (330) Number: Repository [phone] () [id number] Date:2018-07-18 07/18/2018 Secondary GARCÍA Baig [place] Insurance:MEDICAL PERRYDOB: [facility] [id number] Hospital Number: Repository [id number] Date:6093-02-46JR [address] [address]LM: 07/18/2018 Tertiary NOT GIVENUNK [place] Insurance:SELF PAY [facility] Number: Effective Repository Date:2018-07-18 07/02/2018 GARCÍA [id number] Primary [place]ARCÍA A [place] Insurance:MEDICARE PERRYDOB: [place] [facility] [id number] Hospital 20356Bxa: (330) Number: Repository [phone] () [id number] Date:2018-05-14 07/02/2018 Secondary GARCÍA A Angel Insurance:PAWEL VILLARREAL PERRYDOB: [facility] SUPPLEMENT [id number] [facility] Hospital Repository Number: [id number] Date:6488-32-18ROZTMN AN [facility] [address] [address], [place] [address]FH: 07/02/2018 Tertiary NOT GIVENUNK Angel Insurance:SELF PAY [facility] Number: Effective Repository Date:2018-06-06 06/26/2018 GARCÍA [id number] Primary GARCÍA Ort[place] Insurance:MEDICARE PERRYDOB: [place] [facility] [id number] Hospital 333[address]Pth: (330) Number: Repository [phone] () [id number] Date:2018-06-09 06/26/2018 Secondary GARCÍA A [place] Insurance:PAWEL VILLARREAL PERRYDOB: [facility] [id number] Repository Number: [id number] Date:8144-42-00BAFWQM [facility] [address] [address], [place] [address]BM: 06/26/2018 Tertiary NOT GIVENUNK Angel Insurance:SELF PAY [facility] Number: Effective Repository Date:2018-06-09 06/22/2018 GARCÍA [id number] Primary GARCÍA A Angel [place] Insurance:MEDICARE PERRYDOB: [place] [facility] [id number] Hospital 579[address]Bvz: (330) Number: Repository [phone] () [id number] Date:2018-06-09 06/22/2018 Secondary GARCÍA A Angel Insurance:PAWEL VILLARREAL PERRYDOB: Community SUPPLEMENT [id number] Repository Number: [id number] Date:8176-72-25RXDOGD AN [facility] LIFE [address] [address], [place] [address]BA: 06/22/2018 Tertiary NOT GIVENUNK Angel Insurance:SELF PAY [facility] Number: Effective Repository Date:2018-06-09 06/17/2018 GARCÍA [id number] Primary GARCÍA [place] Insurance:MEDICARE PERRYDOB: [place] [facility] [id number] Hospital 59616Rcg: (330) Number: Repository [phone] () [id number] Date:2018-06-11 06/17/2018 Secondary GARCÍA A Angel Insurance:CIGNA MCR PERRYDOB: Community SUPPLEMENT [id number] [facility] Hospital Repository Number: [id number] Date:8860-54-85YDENZW AN [facility] [address] [address], [place] [address]OD: 06/17/2018 Tertiary NOT GIVENUNK Angel Insurance:SELF PAY [facility] Number: Effective Repository Date:2018-06-11 06/16/2018 GARCÍA [id number] Primary GARCÍA [place] Insurance:MEDICARE PERRYDOB: [place] [facility] [id number] Hospital 375[address]Bpx: (330) Number: Repository [phone] () [id number] Date:2018-06-16 06/16/2018 Secondary GARCÍA A Angel Insurance:CIGNA MCR PERRYDOB: Community SUPPLEMENT [id number] Repository Number: [id number] Date:2080-35-43DUDPKE AN [facility] [address] [address], [place] [address]YH: 06/16/2018 Tertiary NOT GIVENUNK [place] Insurance:SELF PAY [facility] Number: Effective Repository Date:2018-06-16 06/09/2018 GARCÍA AVILA21 Primary [place]A [place] Insurance:MEDICARE [place]ERRYDOB: [place] [facility] [id number] Hospital 47656Eos: (330) Number: Repository [phone] () [id number] Date:2018-06-09 06/09/2018 Secondary GARCÍA A Angel Insurance:PAWEL VILLARREAL PERRYDOB: [facility] [id number] [facility] Hospital Repository Number: [id number] Date:0836-45-38CVDUAH AN [facility] [address] [address], [place] [address]IP: 06/09/2018 Tertiary NOT GIVENUNK [place] Insurance:SELF PAY [facility] Effective Repository Date:2018-06-09 06/04/2018 GARCÍA [id number] Primary [place]ARCÍA [place] Insurance:MEDICARE [place]ERRYDOB: [place] [facility] [id number] Hospital 095[address]Dco: (330) Number: Repository [phone] () [id number] Date:2018-05-14 06/04/2018 Secondary GARCÍA A [place] Insurance:PAWEL VILLARREAL PERRYDOB: [facility] [id number] Repository Number: [id number] Date:7708-77-59YKLCME AN [facility] [address] [address], [place] [address]DF: 06/04/2018 Tertiary NOT GIVENUNK [place] Insurance:SELF PAY [facility] Number: Effective Repository Date:2018-05-14 04/15/2018 GARCÍA Baig [id number] Primary GARCÍA Ortiz [place] Insurance:MEDICARE PERRYDOB: [place] [facility] [id number] Hospital 68969Tqi: (330) Number: Repository [phone] () [id number] Date:2018-04-15 04/15/2018 Secondary GARCÍA A [place] Insurance:CIGNA PHIL PERRYDOB: Community SUPPLEMENT [id number] [facility] Repository Number: [id number] Date:4654-20-47JECGCK AN [facility] [address] [address], [place] [address]UJ: 04/15/2018 Tertiary NOT GIVENUNK [place] Insurance:SELF PAY [facility] Number: Effective Repository Date:2018-04-15 04/08/2018 GARCÍA [id number] Primary GARCÍA [place] Insurance:MEDICARE PERRYDOB: Community [place] PART [place] [facility] [id number] Hospital 31[address]Cpv: (330) Number: Repository [phone] () [id number] Date:2018-03-27 04/08/2018 Secondary GARCÍA A Angel Insurance:CIGNA PHIL PERRYDOB: Community SUPPLEMENT [id number] Repository Number: [id number] Date:3656-72-86YBGYZE ASSISTED LIFE [address] [address], [place] [address]SM: 04/08/2018 Tertiary NOT GIVENUNK [place] Insurance:SELF PAY [facility] Number: Effective Repository Date:2018-03-27 04/06/2018 GARCÍA [id number] Primary GARCÍA [place] Insurance:MEDICARE PERRYDOB: [place] [facility] [id number] Hospital 28128Gji: (330) Number: Repository [phone] () [id number] Date:2018-03-27 04/06/2018 Secondary GARCÍA A Angel Insurance:CIGNA PHIL PERRYDOB: Community SUPPLEMENT [id number] All Saints Hospital Repository Number: [id number] Date:4068-95-02XAWYRI AN [facility] [address] [address], [place] [address]WH: 04/06/2018 Tertiary NOT GIVENUNK [place] Insurance:SELF PAY [facility] Number: Effective Repository Date:2018-03-27 04/03/2018 GARCÍA [id number] Primary GARCÍA A Angel [place] Insurance:MEDICARE PERRYDOB: [place] [facility] [id number] Hospital 95713Klx: (330) Number: Repository [phone] () [id number] Date:2018-03-27 04/03/2018 Secondary GARCÍA A Angel Insurance:PAWEL VILLARREAL PERRYDOB: [facility] SUPPLEMENT [id number] All Saints Hospital Repository Number: [id number] Date:4553-48-64GVGSUS AN [facility] LIFE [address] [address]FV, [place] [address]DB: 04/03/2018 Tertiary NOT GIVENUNK [place] Insurance:SELF PAY [facility] Number: Effective Repository Date:2018-03-27 04/01/2018 GARCÍA [id number] Primary GARCÍA A Angel [place] Insurance:MEDICARE PERRYDOB: [place] [facility] [id number] Hospital 33584Tme: (330) Number: Repository [phone] () [id number] Date:2018-03-27 04/01/2018 Secondary GARCÍA A Angel Insurance:PAWEL VILLARREAL PERRYDOB: [facility] SUPPLEMENT [id number] All Saints Hospital Repository Number: [id number] Date:0021-35-77RLTQDM AN [facility] [address] [address]RD, [place] [address]SX: 04/01/2018 Tertiary NOT GIVENUNK [place] Insurance:SELF PAY [facility] Number: Effective Repository Date:2018-03-27 03/30/2018 GARCÍA Baig [id number] Primary GARCÍA A [place] Insurance:MEDICARE [place]ERRYDOB: [place] [facility] [id number] Hospital 90251Jok: (330) Number: Repository [phone] () [id number] Date:2018-03-27 03/30/2018 Secondary GARCÍA A Angel Insurance:PAWEL VILLARREAL PERRYDOB: [facility] SUPPLEMENT [id number] [facility] Saints Hospital Repository Number: [id number] Date:6619-87-84UBHNWE AN [facility] [address] [address], [place] [address]TG: 03/30/2018 Tertiary NOT GIVENUNK [place] Insurance:SELF PAY [facility] Number: Effective Repository Date:2018-03-27 03/17/2018 GARCÍA [id number] Primary GARCÍA [place] Insurance:MEDICARE PERRYDOB: Community [facility] PART A [facility] [id number] Hospital 16912Jls: (330) Number: Repository [phone] () [id number] Date:2017-10-09 03/17/2018 Secondary GARCÍA A Angel Insurance:CIGNA MCR PERRYDOB: Community SUPPLEMENT [id number] Repository Number: [id number] Date:8403-86-48KPQWDL ASSISTED LIFE [address] [address]QZLH, [place] [address]EH: 03/17/2018 Tertiary NOT GIVENUNK Angel Insurance:SELF PAY [facility] Number: Effective Repository Date:2018-03-07 02/05/2018 GARCÍA [id number] Primary GARCÍA Ortiz [place] Insurance:MEDICARE PERRYDOB: [facility] [place] PART A [facility] [id number] Hospital [address]29[address]Mhh: (330) Number: Repository [phone] () [id number] Date:2017-10-09 02/05/2018 Secondary GARCÍA A Angel Insurance:CIGNA MCR PERRYDOB: Community SUPPLEMENT [id number] Repository Number: [id number] Date:8554-57-34SBPCLE AN [facility]ED LIFE [address] [address], [place] [address]OI: 02/05/2018 Tertiary NOT GIVENUNK Angel Insurance:SELF PAY [facility] Number: Effective Repository Date:2018-02-04 01/20/2018 GARCÍA [id number] Primary [place]ARCÍA A [place] Insurance:MEDICARE PERRYDOB: [place] [facility] [id number] Hospital 537[address]Fwd: (330) Number: Repository [phone] () [id number] Date:2018-01-20 01/20/2018 Secondary GARCÍA A Angel Insurance:PAWEL VILLARREAL PERRYDOB: [facility] SUPPLEMENT [id number] Repository Number: [id number] Date:4464-17-43HIWJPS AN [facility] LIFE [address], [place] [address]MC: 01/20/2018 Tertiary NOT GIVENUNK Angel Insurance:SELF PAY [facility] Number: Effective Repository Date:2018-01-20 01/19/2018 GARCÍA Baig [id number] Primary GARCÍA A Angel [place] Insurance:MEDICARE PERRYDOB: [place] [facility] [id number] Hospital [address]37[address]Iwx: (330) Number: Repository [phone] () [id number] Date:2018-01-19 01/19/2018 Secondary GARCÍA A Angel Insurance:PAWEL VILLARREAL PERRYDOB: [facility] [id number] [facility] Repository Number: [id number] Date:9792-40-44EFECWJ AN [facility]ED LIFE [address] [address], [place] [address]VZ: 01/19/2018 Tertiary NOT GIVENUNK Angel Insurance:SELF PAY [facility] Number: Effective Repository Date:2018-01-19 01/15/2018 GARCÍA Baig [id number] Primary GARCÍA A Angel [place] Insurance:MEDICARE PERRYDOB: [place] [facility] [id number] Hospital 734[address]Iyi: (330) Number: Repository [phone] () [id number] Date:2018-01-15 01/15/2018 Secondary GARCÍA A Angel Insurance:PAWEL VILLARREAL PERRYDOB: [facility] [id number] [facility] Saints [facility] Repository Number: [id number] Date:4790-55-24DVHYIP AN ASSISTED LIFE [address] [address]PDSCEJ, [place] [address]LK: 01/15/2018 Tertiary NOT GIVENUNK Angel Insurance:SELF PAY [facility] Number: Effective Repository Date:2018-01-15 01/15/2018 GARCÍA [id number] Primary GARCÍA [place] Insurance:MEDICARE PERRYDOB: Community [facility] PART A [facility] [id number] Hospital 09818Jon: (330) Number: Repository [phone] () [id number] Date:2017-10-09 01/15/2018 Secondary GARCÍA A Angel Insurance:CIGNA MCR PERRYDOB: Community SUPPLEMENT [id number] [facility] Repository Number: [id number] Date:8086-23-68PBMBGS [facility] LIFE [address] [address], [place] [address]VL: 01/15/2018 Tertiary NOT GIVENUNK Angel Insurance:SELF PAY [facility] Number: Effective Repository Date:2018-01-04 01/01/2018 GARCÍA [id number] Primary GARCÍA [place]OW[place] Insurance:MEDICARE PERRYDOB: [facility] [place] [facility] [id number] Hospital 74687Hsc: (330) Number: Repository [phone] () [id number] Date:2017-10-09 01/01/2018 Secondary GARCÍA A [place] Insurance:CIGNA MCR PERRYDOB: Community SUPPLEMENT [id number] [facility] Saints [facility] Repository Number: [id number] Date:4106-42-28NXXNGJ AN [facility]ED LIFE [address] [address]IGJD, [place] [address]QM: 01/01/2018 Tertiary NOT GIVENUNK [place] Insurance:SELF PAY [facility] Number: Effective Repository Date:2017-12-05 12/05/2017 GARCÍA [id number] Primary GARCÍA [place] Insurance:MEDICARE PERRYDOB: [place] [facility] [id number] Hospital 0101[address]Yfw: Number: Repository [phone] [id number] (HP) Date:2017-12-05 12/05/2017 Secondary GARCÍA A [place] Insurance:PAWEL VILLARREAL PERRYDOB: [facility] SUPPLEMENT [id number] All Saints Hospital Repository Number: [id number] Date:4988-60-73ZCUZND AN [facility]ED LIFE [address]SNUP, [place] [address]ZO: 12/05/2017 Tertiary NOT GIVENUNK [place] Insurance:SELF PAY [facility] Number: Effective Repository Date:2017-12-05 12/04/2017 GARCÍA [id number] Primary GARCÍA [place] Insurance:MEDICARE PERRYDOB: [place] [facility] [id number] Hospital 71587Ctf: Number: Repository [phone] [id number] (HP) Date:2017-10-09 12/04/2017 Secondary GARCÍA A [place] Insurance:PAWEL VILLARREAL PERRYDOB: [facility] [id number] All Saints Hospital Repository Number: [id number] Date:8851-30-89CIMHAGAT[facility] LIFE [address] [address]ED, [place] [address]BQ: 12/04/2017 Tertiary NOT GIVENUNK Angel Insurance:SELF PAY [facility] Number: Effective Repository Date:2017-11-04 11/11/2017 GARCÍA Baig [id number] Primary GARCÍA [place] Insurance:MEDICARE PERRYDOB: [place] [facility] [id number] Hospital 90816Uia: Number: Repository [phone] [id number] (HP) Date:2017-10-20 11/11/2017 Secondary GARCÍA A Angel Insurance:PAWEL VILLARREAL PERRYDOB: [facility] SUPPLEMENT [id number] [facility] Repository Number: [id number] Date:0185-25-37HLIYQS AN ASSISTED LIFE [address] [address]B, [place] [address]SZ: 11/11/2017 Tertiary NOT GIVENUNK Angel Insurance:SELF PAY [facility] Number: Effective Repository Date:2017-10-20 11/06/2017 GARCÍA [id number] Primary GARCÍA [place] Insurance:MEDICARE PERRYDOB: [place] [facility] [id number] Hospital 111[address]Jay: Number: Repository [phone] [id number] (HP) Date:2017-10-20 11/06/2017 Secondary GARCÍA Baig [place] Insurance:CIGNA MCR PERRYDOB: Community SUPPLEMENT [id number] [facility] Saints Hospital Repository Number: [id number] Date:6813-25-12MWSSGF AN [facility]ED LIFE [address] [address], [place] [address]LY: 11/06/2017 Tertiary NOT GIVENUNK [place] Insurance:SELF PAY [facility] Effective Repository Date:2017-10-20 11/06/2017 GARCÍA [id number] Primary GARCÍA LOWERY Insurance:MEDICARE PERRYDOB: [place] PART A [facility] [id number] Hospital [address]Hzz: Number: Repository [phone] [id number] (HP) Date:2017-10-20 11/06/2017 Secondary GARCÍA A [place] Insurance:CIGNA MCR PERRYDOB: Community SUPPLEMENT [id number] Repository Number: [id number] Date:[id number] [facility] [address] [address], [place] [address]DA: 11/06/2017 Tertiary NOT GIVENUNK [place] Insurance:SELF PAY [facility] Number: Effective Repository Date:2017-11-06 10/30/2017 GARCÍA [id number] Primary GARCÍA LOWERY Insurance:MEDICARE PERRYDOB: [place] PART A [facility] [id number] Hospital [address]Jtn: Number: Repository [phone] [id number] (HP) Date:2017-10-09 10/30/2017 Secondary GARCÍA A [place] Insurance:PAWEL VILLARREAL PERRYDOB: [facility] SUPPLEMENT [id number] Repository Number: [id number] Date:[id number] [facility] [address] [address], [place] [address]SS: 10/30/2017 Tertiary NOT GIVENUNK [place] Insurance:SELF PAY [facility] Number: Effective Repository Date:2017-10-09 10/20/2017 GARCÍA [id number] Primary GARCÍA LOWERY Insurance:MEDICARE PERRYDOB: [place] PART A [facility] [id number] [id number]: Number: Repository [phone] [id number] (HP) Date:2017-06-23 10/20/2017 Secondary GARCÍA A [place] Insurance:PAWEL VILLARREAL PERRYDOB: [facility] [id number] Repository Number: [id number] Date:[id number] [employer] [address] [address], [place] [address]HN: 10/20/2017 Tertiary NOT GIVENUNK [place] Insurance:SELF PAY [facility] Number: Effective Repository Date:2017-06-23 09/29/2017 García [id number] Primary García LOWERY Insurance:MEDICARE PerryDOB: [place] PART A [facility] [id number] Hospital [address]Nmm: Number: Repository [phone] [id number] (HP) Date:2017-09-29 09/29/2017 Secondary García A [place] Insurance:ISAACDERRELL McdonoughryDOB: Community SUPPLEMENT [id number] Repository Number: [id number] Date:[id number] [employer] [address] [address], [place] [address]UN: 09/29/2017 Tertiary NOT GIVENUNK [place] Insurance:SELF PAY [facility] Number: Effective Repository Date:2017-09-29 09/03/2017 García Baig [id number] Primary García A [place] Insurance:MEDICARE PerryDOB: [place] PART [place] BPolicy [id number] Hospital [address]Jxe: Number: Repository [phone] [id number] () Date:2017-09-03 09/03/2017 Secondary García A [place] Insurance:PAWEL VILLARREAL SimeonB: Community SUPPLEMENT [id number] Repository Number: [id number] Date:[id number] [employer] [facility] [address] [address], [place] [address]AR: 09/03/2017 Tertiary NOT GIVENUNK [place] Insurance:SELF PAY [facility] Number: Effective Repository Date:2017-09-03
== END ==
PROVIDERS: Family Provider Family Medicine Geriatric Medicine; PCP Family Medicine Geriatric Medicine; Referring Provider Family Medicine Geriatric Medicine; Visit Provider Family Medicine Geriatric Medicine
DX: R13.10 Dysphagia, unspecified (principal)
CPT/HCPCS: 74230; 92611; G8996; G8997; G8998

== ENCOUNTER → 2018-06-26 09:49 | Outpatient (CLI) | payer MEDICARE, OTHER, SELFPAY ==
[2018-06-25 11:08] VITALS: BMI 32.6
--- NOTE | 2018-06-26 09:53 | RAD_ITS ---
STUDY: X-RAY - ESOPHAGUS (BARIUM SWALLOW) WITH FLUOROSCOPY REASON FOR EXAM: Female, 67 years old. Dysphagia. TECHNIQUE: 12 view(s) of the esophagus were obtained following swallowing of barium. FLUOROSCOPY TIME (if supplied): (0:29) minutes/seconds COMPARISON: None. FINDINGS: There is no demonstrated esophageal foreign body. There is no demonstrated stricture or mucosal abnormality. Normal gastroesophageal junction, without a demonstrated hiatal hernia. The patient is status post subtotal gastrectomy. The patient ingested a 12 mm tablet of barium without any difficulty. Normal visualized aortic arch and descending thoracic aorta. Normal visualized pulmonary parenchyma. There are diffuse degenerative changes of the visualized thoracic spine. RAD/Esophagus Only IMPRESSION: Normal plain film x-ray examination (barium swallow) of the esophagus. The patient is status post subtotal gastrectomy for gastric bypass surgery. Electronically Signed: Bandar Mckeon MD at 13:18 EST Tel [phone], Service support ,
== END ==
PROVIDERS: Family Provider Family Medicine Geriatric Medicine; PCP Family Medicine Geriatric Medicine; Referring Provider Family Medicine Geriatric Medicine; Visit Provider Family Medicine Geriatric Medicine
DX: R13.10 Dysphagia, unspecified (principal)
CPT/HCPCS: 74220

== ENCOUNTER 2018-07-02 11:00 | Outpatient (RCR) | payer MEDICARE, OTHER, SELFPAY ==
[2018-04-08 11:54] VITALS: BMI 32.6
[2018-06-06 01:59] VITALS: BP 124/66; PULSE 72; RESP 16; TEMP 36.6
[2018-06-11 11:28] VITALS: BP 120/68; PULSE 75; RESP 18; TEMP 37.4; BMI 32.6
--- NOTE | 2018-06-11 15:02 | PCM.WC.PN ---
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 (2) Type 2 diabetes mellitus without complications Status: Acute Current Visit: No Code(s): E11.9 - Type 2 diabetes mellitus without complications (3) PVD (peripheral vascular disease) Status: Acute Current Visit: No Code(s): I73.9 - Peripheral vascular disease, unspecified (4) Lower extremity edema Status: Acute Current Visit: No Code(s): R60.0 - Localized edema (5) Delayed wound healing Status: Acute Current Visit: No Code(s): T14.8XXD - Other injury of unspecified body region, subsequent encounter Type of Wound Chief Complaint: non healing right lower leg ulcer History of Wound: This 67-year-old diabetic female presents to the wound healing center again after another ulcer is open on her right lower anterior leg. Patient admits to not wearing compression as she was instructed after she was healed and discharged from the wound healing center at her last visit. She has not done anything to treat the area on her own other than keeping the ulcer covered. Patient also states that she has a very small opening to the medial right hallux. She says after her callus was debrided her last podiatry visit with me that she did not keep the area protracted as instructed and has also been walking in shoes that are not appropriate for extended periods of time. She says the area has slowly been breaking down as well. She denies any pus to the area or any extending redness to either of the ulcer sites. She currently denies any feelings of nausea, vomiting, fever, or chills. Progress of Wound: Ulcer to right lower extremity. Small ulcer to right medial hallux healed. Patient reports not wearing compression or elevating LE as instructed. - Physical Exam Vital Signs Temp Pulse Resp BP 99.3 F H 75 18 120/68 06/11/18 11:28 06/11/18 11:28 06/11/18 11:28 06/11/18 11:28 General: Alert, Oriented x3, Cooperative, No apparent distress Extremities: Capillary Refill Less than 3 Seconds, No Calf Tenderness - Negative Josh and Rinaldi sign, Diminished Peripheral Pulses, Edema - Bilateral pitting lower extremity edema Skin: Ulcer/ Wound - Ulcer to right anterior lower leg with failure exposed. Measurements are noted. The base is noted to be a mixture of adherent slough, fibrin, granular tissue as well as some slight surrounding hyperkeratotic tissue. There continues to be no probing to bone, no tracking, no undermining, no purulence, no malodor, no surrounding or extending cellulitis or increasing warmth at this time. Wound Measurements and Assessment WC - Nurse 1 - General Ulcer Measurement Start: 06/11/18 11:27 Freq: Status: Active Protocol: Activity Type Activity Date Activity User E-Sign Co-Sign Detail Recorded Client Recorded Date Recorded By Document 06/11/18 11:28 CS [id number] 06/11/18 11:37 CS 06/11/18 11:28 Wound Center Nurse 1 [Ulcer Assessment] #4 RIGHT GREAT TOE -Combined with other wound No -Current Size (cm) - Length 0.1 -Current Size (cm) - Width 0.1 -Current Size (cm) - Depth 0.1 -Total Square Cm 0.01 -Photo Taken No -Epithelialization None Present -Tunneling No -Undermining/Tunneling No -Circular Undermining No -Exudate Amt None Present (0 %) -Granulation Amt None Present (0 %) -Granulation Quality N/A -Necrosis Amt None Present (0 %) -Necrotic Tissue Type Eschar -Structure Exposed None/Limited to Skin Breakdown -Texture (Gricel-wound Skin Appearance) Assessed Callus -Moisture (Gricel-wound Skin Appearance No Abnormality ) Assessed -Color (Gricel-wound Skin Appearance) No Abnormality Assessed -Temperature (Gricel-wound Skin No Abnormality Appearance) (Pt Warm) -Tenderness on Palpation (Gricel-wound No Skin Appearance) -Ulcer Cleansing Not Cleansed -Foul Odor after Cleansing No -Anesthetic Used 4% Lidocaine Solution #3- RT MORAN -Combined with other wound No -Current Size (cm) - Length 4.3 -Current Size (cm) - Width 1.9 -Current Size (cm) - Depth 0.1 -Total Square Cm 8.17 -Photo Taken No -Epithelialization None Present -Tunneling No -Undermining/Tunneling No -Circular Undermining No -Exudate Amt Small (1-33%) -Exudate Type Serosanguineous -Wound Margin Distinct, Outline Attached -Granulation Amt Medium (34-66%) -Granulation Quality Pale [place] -Slough/Fibrin Yes -Necrosis Amt None Present (0 %) -Necrotic Tissue Type Adherent Slough -Structure Exposed None/Limited to Skin Breakdown -Texture (Gricel-wound Skin Appearance) No Abnormality Assessed -Moisture (Gricel-wound Skin Appearance No Abnormality ) Assessed -Color (Gricel-wound Skin Appearance) Erythema -Temperature (Gricel-wound Skin No Abnormality Appearance) (Pt Warm) -Tenderness on Palpation (Gricel-wound Yes Skin Appearance) -Ulcer Cleansing Rinsed/ Irrigated with Saline -Foul Odor after Cleansing No -Anesthetic Used 4% Lidocaine Solution [Edema Assessment] -Lower Limb Edema Present Yes -Right Calf (cm) 46 -Right Ankle (cm) 30 -Left Calf (cm) 44 -Left Ankle (cm) 26.5 WC - Nurse 2 - General Ulcer CM Notes Start: 06/11/18 11:27 Freq: Status: Active Protocol: Activity Type Activity Date Activity User E-Sign Co-Sign Detail Recorded Client Recorded Date Recorded By Document 06/11/18 12:23 DV [id number] 06/11/18 12:27 DV 06/11/18 12:23 Wound Center Nurse 2 [Procedure/Treatment] #4 RIGHT GREAT TOE -Time 12:24 -Correct Patient Yes -Correct Side, Site, Position Yes -Procedure Performed No -Wound/Ulcer Outcome Healed- Epithelialized #3- RT MORAN -Time 12:24 -Correct Patient Yes -Correct Side, Site, Position Yes -Correct Procedure Yes -Procedure Performed Yes -Type of Procedure Debridement -Clinical Debridement Subcutaneous -Post Debridement Size (cm) - Length 4.0 -Post Debridement Size (cm) - Width 2.3 -Post Debridement Size (cm) - Depth 0.1 -Total Square Cm 9.20 -Wound/Ulcer Outcome Not Healed -Ulcer Cleansing Rinsed/ Irrigated with Saline -Foul Odor after Cleansing No -Bioengineered Tissue No -Bleeding Controlled with Pressure -Offloading No -Treatment Response Procedure Tolerated Well [See Physician Procedure note for Specifics] Pain Scale: 0-10 Numeric [Pain] -Is Patient Pain Free? Yes Musculoskeletal: Tenderness - With manipulation of ulcer sites Neurological: Sensory exam intact to light touch and pain Psych/Mental Status: Normal Affect, Appropriate Debridement Note Post-Debridement Measurements/Treatment WC - Nurse 2 - General Ulcer CM Notes Start: 12/06/18 11:27 Freq: Status: Active Protocol: Activity Type Activity Date Activity User E-Sign Co-Sign Detail Recorded Client Recorded Date Recorded By Document 06/11/18 12:23 DV [id number] 06/11/18 12:27 DV 06/11/18 12:23 Wound Center Nurse 2 #4 RIGHT GREAT TOE -Time 12:24 -Correct Patient Yes -Correct Side, Site, Position Yes -Procedure Performed No -Wound/Ulcer Outcome Healed- Epithelialized #3- RT MORAN -Time 12:24 -Correct Patient Yes -Correct Side, Site, Position Yes -Correct Procedure Yes -Procedure Performed Yes -Type of Procedure Debridement -Clinical Debridement Subcutaneous -Post Debridement Size (cm) - Length 4.0 -Post Debridement Size (cm) - Width 2.3 -Post Debridement Size (cm) - Depth 0.1 -Total Square Cm 9.20 -Wound/Ulcer Outcome Not Healed -Ulcer Cleansing Rinsed/ Irrigated with Saline -Foul Odor after Cleansing No -Bioengineered Tissue No -Bleeding Controlled with Pressure -Offloading No -Treatment Response Procedure Tolerated Well Pain Scale: 0-10 Numeric Is Patient Pain Free? Yes Wound debrided: Right anterior lower leg Laterality: Right Type of Debridement: Excisional debridement Anesthesia Used: 4% Lidocaine Solution Depth: in the subcutaneous layer Percentage of wound debrided: 100 Instrument Used: 7mm curette Tissue Removed: Adherent slough, fibrin, hyperkeratotic tissue Severity: Fat Layer Exposed Amount of bleeding with debridement: Mild Bleeding Controlled with: Pressure Patient tolerated procedure well Assessment/Plan Assessment: Ulcer right lower leg, DM II, PVD, ulcer right medial hallux Plan: Patient was examined and evaluated again today. Subcutaneous debridement was performed as noted in the clinical panel to the right lower leg. Once complete, silvercel was applied to the ulcer base, followed by a 3M wrap for compression. The patient was educated on the importance of keeping compression to the area. She will follow-up on Friday for a nurse visit to make sure she is tolerating the 3M wraps well. She was instructed to call the wound healing center sooner or go to the emergency room should she notice any issues with these wraps. Patient has been non compliant since her last visit with using compression or elevating her LE. Patient was instructed to keep pressure off of the right medial hallux and to avoid any kind of shoe with a tight toe box. Patient was instructed to continue with proper high-protein diet as well as the importance of tight glycemic control. The patient was educated on all signs and symptoms of local and systemic infection, and she was instructed to go to the emergency room immediately should she notice any. All other questions and concerns were answered to the patient's satisfaction today. The patient will follow-up in the wound healing center in 1 week with me to check on progress, but was instructed to call the clinic sooner if needed.
[2018-06-15 14:40] VITALS: BP 121/64; PULSE 65; RESP 18; TEMP 36.3; BMI 32.6
[2018-06-18 10:14] VITALS: BP 116/72; PULSE 69; RESP 16; TEMP 36.9; BMI 32.6
--- NOTE | 2018-06-18 12:28 | PN.PCM_ITS ---
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 (2) Type 2 diabetes mellitus without complications Status: Acute Current Visit: No Code(s): E11.9 - Type 2 diabetes mellitus without complications (3) PVD (peripheral vascular disease) Status: Acute Current Visit: No Code(s): I73.9 - Peripheral vascular disease, unspecified (4) Lower extremity edema Status: Acute Current Visit: No Code(s): R60.0 - Localized edema (5) Delayed wound healing Status: Acute Current Visit: No Code(s): T14.8XXD - Other injury of unspecified body region, subsequent encounter Type of Wound Chief Complaint: non healing right lower leg ulcer History of Wound: This 67-year-old diabetic female presents to the wound healing center again after another ulcer is open on her right lower anterior leg. Patient admits to not wearing compression as she was instructed after she was healed and discharged from the wound healing center at her last visit. She has not done anything to treat the area on her own other than keeping the ulcer covered. Patient also states that she has a very small opening to the medial right hallux. She says after her callus was debrided her last podiatry visit with me that she did not keep the area protracted as instructed and has also been walking in shoes that are not appropriate for extended periods of time. She says the area has slowly been breaking down as well. She denies any pus to the area or any extending redness to either of the ulcer sites. She currently denies any feelings of nausea, vomiting, fever, or chills. Progress of Wound: Ulcer to right lower extremity improving. Patient denies any feelings of nausea, vomiting, fever, chills. - Physical Exam Vital Signs Temp Pulse Resp BP 98.4 F 69 16 116/72 06/18/18 10:14 06/18/18 10:14 06/18/18 10:14 06/18/18 10:14 General: Alert, Oriented x3, Cooperative, No apparent distress Extremities: Capillary Refill Less than 3 Seconds, No Calf Tenderness, Diminished Peripheral Pulses, Edema - Bilateral pitting lower extremity edema Skin: Ulcer/ Wound - Ulcer to right anterior lower leg with fat layer exposed. Measurements noted below. Improvement noted this week. The base is a mixture of adherent slough, fibrin, granular tissue, as well as some slight surrounding hyperkeratotic tissue. There continues to be no probing to bone, no tracking, no undermining, no purulence, no malodor, no surrounding or extending cellulitis and no increase in warmth to the ulcer site at this time. Wound Measurements and Assessment WC - Nurse 1 - General Ulcer Measurement Start: 06/11/18 11:27 Freq: Status: Active Protocol: Activity Type Activity Date Activity User E-Sign Co-Sign Detail Recorded Client Recorded Date Recorded By Document 06/15/18 14:40 [id number] 06/15/18 14:42 Document 06/18/18 10:14 [facility] [id number] 06/18/18 10:31 [facility] 06/15/18 06/18/18 14:40 10:14 Wound Center Nurse 1 [Ulcer Assessment] #3- RT MORAN -Combined with other wound No No -Current Size (cm) - Length 4.2 4 -Current Size (cm) - Width 2.0 1.2 -Current Size (cm) - Depth 0.1 0.1 -Total Square Cm 8.40 4.8 -Photo Taken No No -Epithelialization Small 1-33% Small 1-33% -Tunneling No No -Undermining/Tunneling No No -Circular Undermining No No -Exudate Amt Medium (34-66%) Small (1-33%) -Exudate Type Serosanguineous Serosanguineous -Wound Margin Flat & Intact Flat & Intact -Granulation Amt Large (67-100%) Small (1-33%) -Granulation Quality Red Red -Slough/Fibrin Yes Yes -Necrosis Amt Small (1-33%) Large (67-100%) -Necrotic Tissue Type Adherent Slough Adherent Slough -Structure Exposed N/A -Texture (Gricel-wound Skin Appearance) Assessed Assessed Localized Edema Scarring -Moisture (Gricel-wound Skin Appearance Assessed Assessed ) Dry/Scaly Dry/Scaly -Color (Gricel-wound Skin Appearance) Assessed Erythema -Temperature (Gricel-wound Skin No Abnormality No Abnormality Appearance) (Pt Warm) (Pt Warm) -Tenderness on Palpation (Gricel-wound No No Skin Appearance) -Ulcer Cleansing Wound Cleanser Wound Cleanser -Foul Odor after Cleansing No No -Anesthetic Used 5% Lidocaine Gel [Edema Assessment] -Lower Limb Edema Present Yes Yes -Right Calf (cm) 38.5 35.4 -Right Ankle (cm) 29.4 26.9 -Left Calf (cm) 35.3 33.3 -Left Ankle (cm) 25.5 24.2 NANCY - Nurse 2 - General Ulcer CM Notes Start: 06/11/18 11:27 Freq: Status: Active Protocol: Activity Type Activity Date Activity User E-Sign Co-Sign Detail Recorded Client Recorded Date Recorded By Document 06/18/18 10:50 DV [id number] 06/18/18 11:12 DV 06/18/18 10:50 Wound Center Nurse 2 [Procedure/Treatment] #3- RT MORAN -Time 10:50 -Correct Patient Yes -Correct Side, Site, Position Yes -Correct Procedure Yes -Procedure Performed Yes -Type of Procedure Debridement -Clinical Debridement Subcutaneous -Post Debridement Size (cm) - Length 2.7 -Post Debridement Size (cm) - Width 1.4 -Post Debridement Size (cm) - Depth 0.1 -Total Square Cm 3.78 -Wound/Ulcer Outcome Not Healed -Ulcer Cleansing Rinsed/ Irrigated with Saline -Foul Odor after Cleansing No -Bioengineered Tissue No -Bleeding Controlled with Pressure -Offloading No -Treatment Response Procedure Tolerated Well [See Physician Procedure note for Specifics] Pain Scale: 0-10 Numeric [Pain] -Is Patient Pain Free? Yes Musculoskeletal: Tenderness - With manipulation of ulcer site Neurological: Sensory exam intact to light touch and pain Psych/Mental Status: Normal Affect, Appropriate Debridement Note Post-Debridement Measurements/Treatment NANCY - Nurse 2 - General Ulcer CM Notes Start: 06/11/18 11:27 Freq: Status: Active Protocol: Activity Type Activity Date Activity User E-Sign Co-Sign Detail Recorded Client Recorded Date Recorded By Document 06/11/18 12:23 DV [id number] 06/11/18 12:27 DV Document 06/18/18 10:50 DV [id number] 06/18/18 11:12 DV 06/11/18 06/18/18 12:23 10:50 Wound Center Nurse 2 #4 RIGHT GREAT TOE -Time 12:24 -Correct Patient Yes -Correct Side, Site, Position Yes -Procedure Performed No -Wound/Ulcer Outcome Healed- Epithelialized #3- RT MORAN -Time 12:24 10:50 -Correct Patient Yes Yes -Correct Side, Site, Position Yes Yes -Correct Procedure Yes Yes -Procedure Performed Yes Yes -Type of Procedure Debridement Debridement -Clinical Debridement Subcutaneous Subcutaneous -Post Debridement Size (cm) - Length 4.0 2.7 -Post Debridement Size (cm) - Width 2.3 1.4 -Post Debridement Size (cm) - Depth 0.1 0.1 -Total Square Cm 9.20 3.78 -Wound/Ulcer Outcome Not Healed Not Healed -Ulcer Cleansing Rinsed/ Rinsed/ Irrigated with Irrigated with Saline Saline -Foul Odor after Cleansing No No -Bioengineered Tissue No No -Bleeding Controlled with Pressure Pressure -Offloading No No -Treatment Response Procedure Procedure Tolerated Well Tolerated Well Pain Scale: 0-10 Numeric Is Patient Pain Free? Yes Yes Wound debrided: Right anterior lower leg Laterality: Right Type of Debridement: Excisional debridement Anesthesia Used: 4% Lidocaine Solution Depth: in the subcutaneous layer Percentage of wound debrided: 100 Instrument Used: 7mm curette Tissue Removed: Adherent slough, fibrin, hyperkeratotic tissue Severity: Fat Layer Exposed Amount of bleeding with debridement: Mild Bleeding Controlled with: Pressure Patient tolerated procedure well Assessment/Plan Assessment: Ulcer right lower leg, DM II, PVD, ulcer right medial hallux Plan: Patient was examined and evaluated again today. Subcutaneous debridement was performed as noted in the clinical panel to the right lower leg. Once complete, silvercel was applied to the ulcer base, followed by a 3M wrap for compression. The patient was educated on the importance of keeping compression to the area. She did well with her 3M wraps last week. Patient has been non compliant since her last visit with using compression or elevating her LE. Patient was instructed to keep pressure off of the right medial hallux and to avoid any kind of shoe with a tight toe box. Patient was instructed to continue with proper high-protein diet as well as the importance of tight glycemic control. The patient was educated on all signs and symptoms of local and systemic infection, and she was instructed to go to the emergency room immediately should she notice any. All other questions and concerns were answered to the patient's satisfaction today. The patient will follow-up in the wound healing center in 1 week with me to check on progress, but was instructed to call the clinic sooner if needed.
[2018-06-25 11:08] VITALS: BP 137/66; PULSE 72; RESP 18; TEMP 36.2; BMI 32.6
--- NOTE | 2018-06-25 11:09 | WC ---
PT states friday night pt fell during night and had to sleep on floor until morning of friday. pt fell again friday during the day. pt encouraged to patrick PCP about the above.
--- NOTE | 2018-06-25 12:10 | PN.PCM_ITS ---
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 (2) Type 2 diabetes mellitus without complications Status: Acute Current Visit: No Code(s): E11.9 - Type 2 diabetes mellitus without complications (3) PVD (peripheral vascular disease) Status: Acute Current Visit: No Code(s): I73.9 - Peripheral vascular disease, unspecified (4) Lower extremity edema Status: Acute Current Visit: No Code(s): R60.0 - Localized edema (5) Delayed wound healing Status: Acute Current Visit: No Code(s): T14.8XXD - Other injury of unspecified body region, subsequent encounter Type of Wound Chief Complaint: non healing right lower leg ulcer History of Wound: This 67-year-old diabetic female presents to the wound healing center again after another ulcer is open on her right lower anterior leg. Patient admits to not wearing compression as she was instructed after she was healed and discharged from the wound healing center at her last visit. She has not done anything to treat the area on her own other than keeping the ulcer covered. Patient also states that she has a very small opening to the medial right hallux. She says after her callus was debrided her last podiatry visit with me that she did not keep the area protracted as instructed and has also been walking in shoes that are not appropriate for extended periods of time. She says the area has slowly been breaking down as well. She denies any pus to the area or any extending redness to either of the ulcer sites. She currently denies any feelings of nausea, vomiting, fever, or chills. Progress of Wound: Ulcer to right lower extremity improving. Patient says that she cut her 3M wraps off yesterday. Patient denies any feelings of nausea, vomiting, fever, chills. - Physical Exam Vital Signs Temp Pulse Resp BP 97.1 F L 72 18 137/66 H 06/25/18 11:08 06/25/18 11:08 06/25/18 11:08 06/25/18 11:08 General: Alert, Oriented x3, Cooperative, No apparent distress Extremities: Capillary Refill Less than 3 Seconds, No Calf Tenderness - Negative Josh and Rinaldi sign, Diminished Peripheral Pulses, Edema - Bilateral pitting lower extremity edema Skin: Ulcer/ Wound - Ulcer to right anterior lower leg with fat layer exposed. Measurements are noted below. Improvement noted this week again. The base continues to be a mixture of adherent slough, fibrin, granular tissue, as well as some slight surrounding hyperkeratotic tissue. There continues to be no probing to bone, no tracking, no undermining, no purulence, no malodor, no surrounding or extending cellulitis, and no increase in warmth to the ulcer at this time. Wound Measurements and Assessment WC - Nurse 1 - General Ulcer Measurement Start: 06/11/18 11:27 Freq: Status: Active Protocol: Activity Type Activity Date Activity User E-Sign Co-Sign Detail Recorded Client Recorded Date Recorded By Document 06/25/18 11:08 RB [id number] 06/25/18 11:14 RB 06/25/18 11:08 Wound Center Nurse 1 [Ulcer Assessment] #3- RT MORAN -Combined with other wound No -Current Size (cm) - Length 2.4 -Current Size (cm) - Width 1.1 -Current Size (cm) - Depth 0.1 -Total Square Cm 2.64 -Photo Taken No -Tunneling No -Undermining/Tunneling No -Circular Undermining No -Exudate Amt Small (1-33%) -Exudate Type Serosanguineous -Wound Margin Distinct, Outline Attached -Granulation Amt Large (67-100%) -Granulation Quality [place] -Slough/Fibrin Yes -Necrosis Amt Small (1-33%) -Necrotic Tissue Type Adherent Slough -Structure Exposed N/A -Texture (Gricel-wound Skin Appearance) Assessed Localized Edema -Moisture (Gricel-wound Skin Appearance Assessed ) -Color (Gricel-wound Skin Appearance) Assessed -Temperature (Gricel-wound Skin No Abnormality Appearance) (Pt Warm) -Tenderness on Palpation (Gricel-wound No Skin Appearance) -Ulcer Cleansing Rinsed/ Irrigated with Saline -Foul Odor after Cleansing No -Anesthetic Used 4% Lidocaine Solution [Edema Assessment] -Lower Limb Edema Present Yes -Right Calf (cm) 43.8 -Right Ankle (cm) 30.6 -Left Calf (cm) 43 -Left Ankle (cm) 27.6 Musculoskeletal: Tenderness - With manipulation of ulcer site Neurological: Sensory exam intact to light touch and pain Psych/Mental Status: Normal Affect, Appropriate Debridement Note Post-Debridement Measurements/Treatment WC - Nurse 2 - General Ulcer CM Notes Start: 06/11/18 11:27 Freq: Status: Active Protocol: Activity Type Activity Date Activity User E-Sign Co-Sign Detail Recorded Client Recorded Date Recorded By Document 06/11/18 12:23 DV [id number] 06/11/18 12:27 DV Document 06/18/18 10:50 DV [id number] 06/18/18 11:12 DV 06/11/18 06/18/18 12:23 10:50 Wound Center Nurse 2 #4 RIGHT GREAT TOE -Time 12:24 -Correct Patient Yes -Correct Side, Site, Position Yes -Procedure Performed No -Wound/Ulcer Outcome Healed- Epithelialized #3- RT MORAN -Time 12:24 10:50 -Correct Patient Yes Yes -Correct Side, Site, Position Yes Yes -Correct Procedure Yes Yes -Procedure Performed Yes Yes -Type of Procedure Debridement Debridement -Clinical Debridement Subcutaneous Subcutaneous -Post Debridement Size (cm) - Length 4.0 2.7 -Post Debridement Size (cm) - Width 2.3 1.4 -Post Debridement Size (cm) - Depth 0.1 0.1 -Total Square Cm 9.20 3.78 -Wound/Ulcer Outcome Not Healed Not Healed -Ulcer Cleansing Rinsed/ Rinsed/ Irrigated with Irrigated with Saline Saline -Foul Odor after Cleansing No No -Bioengineered Tissue No No -Bleeding Controlled with Pressure Pressure -Offloading No No -Treatment Response Procedure Procedure Tolerated Well Tolerated Well Pain Scale: 0-10 Numeric Is Patient Pain Free? Yes Yes Wound debrided: Right anterior lower leg Laterality: Right Type of Debridement: Excisional debridement Anesthesia Used: 4% Lidocaine Solution Depth: in the subcutaneous layer Percentage of wound debrided: 100 Instrument Used: 7mm curette Tissue Removed: Adherent slough, fibrin, hyperkeratotic tissue Severity: Fat Layer Exposed Amount of bleeding with debridement: Mild Bleeding Controlled with: Pressure Patient tolerated procedure well Assessment/Plan Assessment: Ulcer right lower leg, DM II, PVD, ulcer right medial hallux Plan: Patient was examined and evaluated again today. Subcutaneous debridement was performed as noted in the clinical panel to the right lower leg. Once complete, silvercel was applied to the ulcer base, followed by a 3M wrap for compression. The patient was educated on the importance of keeping compression to the area. She was again informed to call the wound healing center or come in should she have any issues with her 3M wraps. Patient has been non compliant since her last visit with using compression or elevating her LE. Patient was instructed to continue with proper high-protein diet as well as the importance of tight glycemic control. The patient was educated on all signs and symptoms of local and systemic infection, and she was instructed to go to the emergency room immediately should she notice any. All other questions and concerns were answered to the patient's satisfaction today. The patient will follow-up in the wound healing center in 1 week with me to check on progress, but was instructed to call the clinic sooner if needed.
[2018-07-02 11:34] VITALS: BP 150/77; PULSE 84; RESP 16; TEMP 36.2; BMI 32.6
--- NOTE | 2018-07-02 12:09 | PCM.WC.PN ---
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 (2) Type 2 diabetes mellitus without complications Status: Acute Current Visit: No Code(s): E11.9 - Type 2 diabetes mellitus without complications (3) PVD (peripheral vascular disease) Status: Acute Current Visit: No Code(s): I73.9 - Peripheral vascular disease, unspecified (4) Lower extremity edema Status: Acute Current Visit: No Code(s): R60.0 - Localized edema (5) Delayed wound healing Status: Acute Current Visit: No Code(s): T14.8XXD - Other injury of unspecified body region, subsequent encounter Type of Wound Chief Complaint: non healing right lower leg ulcer History of Wound: This 67-year-old diabetic female presents to the wound healing center again after another ulcer is open on her right lower anterior leg. Patient admits to not wearing compression as she was instructed after she was healed and discharged from the wound healing center at her last visit. She has not done anything to treat the area on her own other than keeping the ulcer covered. Patient also states that she has a very small opening to the medial right hallux. She says after her callus was debrided her last podiatry visit with me that she did not keep the area protracted as instructed and has also been walking in shoes that are not appropriate for extended periods of time. She says the area has slowly been breaking down as well. She denies any pus to the area or any extending redness to either of the ulcer sites. She currently denies any feelings of nausea, vomiting, fever, or chills. Progress of Wound: Ulcer to right lower extremity improving. Patient denies any feelings of nausea, vomiting, fever, chills. - Physical Exam Vital Signs Temp Pulse Resp BP 97.1 F L 84 16 150/77 H 07/02/18 11:34 07/02/18 11:34 07/02/18 11:34 07/02/18 11:34 General: Alert, Oriented x3, Cooperative, No apparent distress Extremities: Capillary Refill Less than 3 Seconds, No Calf Tenderness - Negative Josh and Rinaldi sign, Diminished Peripheral Pulses, Edema - Bilateral pitting lower extremity edema Skin: Ulcer/ Wound - Ulcer to right anterior lower leg with fat layer exposed. Measurements are noted below. Improvement noted this week again. The base continues to be a mixture of adherent slough, fibrin, granular tissue, as well as some slight surrounding hyperkeratotic tissue. There continues to be no probing to bone, no tracking, no undermining, no purulence, no malodor, no surrounding or extending cellulitis, and no increase in warmth to the ulcer at this time. Wound Measurements and Assessment WC - Nurse 1 - General Ulcer Measurement Start: 06/11/18 11:27 Freq: Status: Active Protocol: Activity Type Activity Date Activity User E-Sign Co-Sign Detail Recorded Client Recorded Date Recorded By Document 07/02/18 11:34 [facility] [id number] 07/02/18 11:39 [facility] 07/02/18 11:34 Wound Center Nurse 1 [Ulcer Assessment] #3- RT MORAN -Combined with other wound No -Current Size (cm) - Length 2.4 -Current Size (cm) - Width 1.1 -Current Size (cm) - Depth 0.1 -Total Square Cm 2.64 -Photo Taken No -Epithelialization Small 1-33% -Tunneling No -Undermining/Tunneling No -Circular Undermining No -Exudate Amt Small (1-33%) -Exudate Type Serosanguineous -Wound Margin Distinct, Outline Attached -Granulation Amt Medium (34-66%) -Granulation Quality [place] -Slough/Fibrin Yes -Necrosis Amt Medium (34-66%) -Necrotic Tissue Type Adherent Slough -Texture (Gricel-wound Skin Appearance) Scarring -Moisture (Gricel-wound Skin Appearance Dry/Scaly ) -Color (Gricel-wound Skin Appearance) Hemosiderin Staining -Temperature (Gricel-wound Skin No Abnormality Appearance) (Pt Warm) -Tenderness on Palpation (Gricel-wound No Skin Appearance) -Ulcer Cleansing Wound Cleanser -Foul Odor after Cleansing No -Anesthetic Used 5% Lidocaine Gel [Edema Assessment] -Lower Limb Edema Present Yes -Right Calf (cm) 37 -Right Ankle (cm) 27.3 -Left Calf (cm) 36 -Left Ankle (cm) 26 WC - Nurse 2 - General Ulcer CM Notes Start: 06/11/18 11:27 Freq: Status: Active Protocol: Activity Type Activity Date Activity User E-Sign Co-Sign Detail Recorded Client Recorded Date Recorded By Document 07/02/18 11:48 [id number] 07/02/18 11:48 07/02/18 11:48 Wound Center Nurse 2 [Procedure/Treatment] #3- RT MORAN -Time 11:48 -Correct Patient Yes -Correct Side, Site, Position Yes -Correct Procedure Yes -Procedure Performed Yes -Type of Procedure Debridement -Clinical Debridement Subcutaneous -Post Debridement Size (cm) - Length 1.6 -Post Debridement Size (cm) - Width 0.6 -Post Debridement Size (cm) - Depth 0.1 -Total Square Cm 0.96 -Wound/Ulcer Outcome Not Healed -Ulcer Cleansing Not Cleansed -Foul Odor after Cleansing No -Bioengineered Tissue No -Bleeding Controlled with Pressure -Offloading No -Treatment Response Procedure Tolerated Well [See Physician Procedure note for Specifics] Pain Scale: 0-10 Numeric [Pain] -Is Patient Pain Free? Yes Musculoskeletal: Tenderness - With manipulation of ulcer site Neurological: Sensory exam intact to light touch and pain Psych/Mental Status: Normal Affect, Appropriate Debridement Note Post-Debridement Measurements/Treatment WC - Nurse 2 - General Ulcer CM Notes Start: 06/11/18 11:27 Freq: Status: Active Protocol: Activity Type Activity Date Activity User E-Sign Co-Sign Detail Recorded Client Recorded Date Recorded By Document 06/11/18 12:23 DV [id number] 06/11/18 12:27 DV Document 06/18/18 10:50 DV [id number] 06/18/18 11:12 DV Document 07/02/18 11:48 [id number] 07/02/18 11:48 06/11/18 06/18/18 07/02/18 12:23 10:50 11:48 Wound Center Nurse 2 #4 RIGHT GREAT TOE -Time 12:24 -Correct Patient Yes -Correct Side, Site, Position Yes -Procedure Performed No -Wound/Ulcer Outcome Healed- Epithelialized #3- RT MORAN -Time 12:24 10:50 11:48 -Correct Patient Yes Yes Yes -Correct Side, Site, Position Yes Yes Yes -Correct Procedure Yes Yes Yes -Procedure Performed Yes Yes Yes -Type of Procedure Debridement Debridement Debridement -Clinical Debridement Subcutaneous Subcutaneous Subcutaneous -Post Debridement Size (cm) - Length 4.0 2.7 1.6 -Post Debridement Size (cm) - Width 2.3 1.4 0.6 -Post Debridement Size (cm) - Depth 0.1 0.1 0.1 -Total Square Cm 9.20 3.78 0.96 -Wound/Ulcer Outcome Not Healed Not Healed Not Healed -Ulcer Cleansing Rinsed/ Rinsed/ Not Cleansed Irrigated with Irrigated with Saline Saline -Foul Odor after Cleansing No No No -Bioengineered Tissue No No No -Bleeding Controlled with Pressure Pressure Pressure -Offloading No No No -Treatment Response Procedure Procedure Procedure Tolerated Well Tolerated Well Tolerated Well Pain Scale: 0-10 Numeric Is Patient Pain Free? Yes Yes Yes Wound debrided: Right anterior lower leg Laterality: Right Type of Debridement: Excisional debridement Anesthesia Used: 4% Lidocaine Solution Depth: in the subcutaneous layer Percentage of wound debrided: 100 Instrument Used: 7mm curette Tissue Removed: Adherent slough, fibrin, hyperkeratotic tissue Severity: Fat Layer Exposed Amount of bleeding with debridement: Mild Bleeding Controlled with: Pressure Patient tolerated procedure well Assessment/Plan Assessment: Ulcer right lower leg, DM II, PVD, ulcer right medial hallux Plan: Patient was examined and evaluated again today. Subcutaneous debridement was performed as noted in the clinical panel to the right lower leg. Once complete, silvercel was applied to the ulcer base, followed by a 3M wrap for compression. The patient was educated on the importance of keeping compression to the area. She was again informed to call the wound healing center or come in should she have any issues with her 3M wraps. She did well with these again last week. Patient was instructed to continue with proper high-protein diet as well as the importance of tight glycemic control. The patient was educated on all signs and symptoms of local and systemic infection, and she was instructed to go to the emergency room immediately should she notice any. All other questions and concerns were answered to the patient's satisfaction today. The patient will follow-up in the wound healing center in 1 week with me to check on progress, but was instructed to call the clinic sooner if needed.
--- NOTE | 2018-07-02 12:12 | PN.PCM_ITS ---
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 (2) Type 2 diabetes mellitus without complications Status: Acute Current Visit: No Code(s): E11.9 - Type 2 diabetes mellitus without complications (3) PVD (peripheral vascular disease) Status: Acute Current Visit: No Code(s): I73.9 - Peripheral vascular disease, unspecified (4) Lower extremity edema Status: Acute Current Visit: No Code(s): R60.0 - Localized edema (5) Delayed wound healing Status: Acute Current Visit: No Code(s): T14.8XXD - Other injury of unspecified body region, subsequent encounter Type of Wound Chief Complaint: non healing right lower leg ulcer History of Wound: This 67-year-old diabetic female presents to the wound healing center again after another ulcer is open on her right lower anterior leg. Patient admits to not wearing compression as she was instructed after she was healed and discharged from the wound healing center at her last visit. She has not done anything to treat the area on her own other than keeping the ulcer covered. Patient also states that she has a very small opening to the medial right hallux. She says after her callus was debrided her last podiatry visit with me that she did not keep the area protracted as instructed and has also been walking in shoes that are not appropriate for extended periods of time. She says the area has slowly been breaking down as well. She denies any pus to the area or any extending redness to either of the ulcer sites. She currently denies any feelings of nausea, vomiting, fever, or chills. Progress of Wound: Ulcer to right lower extremity improving. Patient denies any feelings of nausea, vomiting, fever, chills. - Physical Exam Vital Signs Temp Pulse Resp BP 97.1 F L 84 16 150/77 H 07/02/18 11:34 07/02/18 11:34 07/02/18 11:34 07/02/18 11:34 General: Alert, Oriented x3, Cooperative, No apparent distress Extremities: Capillary Refill Less than 3 Seconds, No Calf Tenderness - Negative Josh and Rinaldi sign, Diminished Peripheral Pulses, Edema - Bilateral pitting lower extremity edema Skin: Ulcer/ Wound - Ulcer to right anterior lower leg with fat layer exposed. Measurements are noted below. Improvement noted this week again. The base continues to be a mixture of adherent slough, fibrin, granular tissue, as well as some slight surrounding hyperkeratotic tissue. There continues to be no probing to bone, no tracking, no undermining, no purulence, no malodor, no surrounding or extending cellulitis, and no increase in warmth to the ulcer at this time. Wound Measurements and Assessment WC - Nurse 1 - General Ulcer Measurement Start: 06/11/18 11:27 Freq: Status: Active Protocol: Activity Type Activity Date Activity User E-Sign Co-Sign Detail Recorded Client Recorded Date Recorded By Document 07/02/18 11:34 [facility] [id number] 07/02/18 11:39 [facility] 07/02/18 11:34 Wound Center Nurse 1 [Ulcer Assessment] #3- RT MORAN -Combined with other wound No -Current Size (cm) - Length 2.4 -Current Size (cm) - Width 1.1 -Current Size (cm) - Depth 0.1 -Total Square Cm 2.64 -Photo Taken No -Epithelialization Small 1-33% -Tunneling No -Undermining/Tunneling No -Circular Undermining No -Exudate Amt Small (1-33%) -Exudate Type Serosanguineous -Wound Margin Distinct, Outline Attached -Granulation Amt Medium (34-66%) -Granulation Quality Freedom -Slough/Fibrin Yes -Necrosis Amt Medium (34-66%) -Necrotic Tissue Type Adherent Slough -Texture (Gricel-wound Skin Appearance) Scarring -Moisture (Gricel-wound Skin Appearance Dry/Scaly ) -Color (Gricel-wound Skin Appearance) Hemosiderin Staining -Temperature (Gricel-wound Skin No Abnormality Appearance) (Pt Warm) -Tenderness on Palpation (Gricel-wound No Skin Appearance) -Ulcer Cleansing Wound Cleanser -Foul Odor after Cleansing No -Anesthetic Used 5% Lidocaine Gel [Edema Assessment] -Lower Limb Edema Present Yes -Right Calf (cm) 37 -Right Ankle (cm) 27.3 -Left Calf (cm) 36 -Left Ankle (cm) 26 WC - Nurse 2 - General Ulcer CM Notes Start: 06/11/18 11:27 Freq: Status: Active Protocol: Activity Type Activity Date Activity User E-Sign Co-Sign Detail Recorded Client Recorded Date Recorded By Document 07/02/18 11:48 [id number] 07/02/18 11:48 07/02/18 11:48 Wound Center Nurse 2 [Procedure/Treatment] #3- RT MORAN -Time 11:48 -Correct Patient Yes -Correct Side, Site, Position Yes -Correct Procedure Yes -Procedure Performed Yes -Type of Procedure Debridement -Clinical Debridement Subcutaneous -Post Debridement Size (cm) - Length 1.6 -Post Debridement Size (cm) - Width 0.6 -Post Debridement Size (cm) - Depth 0.1 -Total Square Cm 0.96 -Wound/Ulcer Outcome Not Healed -Ulcer Cleansing Not Cleansed -Foul Odor after Cleansing No -Bioengineered Tissue No -Bleeding Controlled with Pressure -Offloading No -Treatment Response Procedure Tolerated Well [See Physician Procedure note for Specifics] Pain Scale: 0-10 Numeric [Pain] -Is Patient Pain Free? Yes Musculoskeletal: Tenderness - With manipulation of ulcer site Neurological: Sensory exam intact to light touch and pain Psych/Mental Status: Normal Affect, Appropriate Debridement Note Post-Debridement Measurements/Treatment WC - Nurse 2 - General Ulcer CM Notes Start: 06/11/18 11:27 Freq: Status: Active Protocol: Activity Type Activity Date Activity User E-Sign Co-Sign Detail Recorded Client Recorded Date Recorded By Document 06/11/18 12:23 DV [id number] 06/11/18 12:27 DV Document 06/18/18 10:50 [id number] 06/18/18 11:12 DV Document 07/02/18 11:48 [id number] 07/02/18 11:48 06/11/18 06/18/18 07/02/18 12:23 10:50 11:48 Wound Center Nurse 2 #4 RIGHT GREAT TOE -Time 12:24 -Correct Patient Yes -Correct Side, Site, Position Yes -Procedure Performed No -Wound/Ulcer Outcome Healed- Epithelialized #3- RT MORAN -Time 12:24 10:50 11:48 -Correct Patient Yes Yes Yes -Correct Side, Site, Position Yes Yes Yes -Correct Procedure Yes Yes Yes -Procedure Performed Yes Yes Yes -Type of Procedure Debridement Debridement Debridement -Clinical Debridement Subcutaneous Subcutaneous Subcutaneous -Post Debridement Size (cm) - Length 4.0 2.7 1.6 -Post Debridement Size (cm) - Width 2.3 1.4 0.6 -Post Debridement Size (cm) - Depth 0.1 0.1 0.1 -Total Square Cm 9.20 3.78 0.96 -Wound/Ulcer Outcome Not Healed Not Healed Not Healed -Ulcer Cleansing Rinsed/ Rinsed/ Not Cleansed Irrigated with Irrigated with Saline Saline -Foul Odor after Cleansing No No No -Bioengineered Tissue No No No -Bleeding Controlled with Pressure Pressure Pressure -Offloading No No No -Treatment Response Procedure Procedure Procedure Tolerated Well Tolerated Well Tolerated Well Pain Scale: 0-10 Numeric Is Patient Pain Free? Yes Yes Yes Wound debrided: Right anterior lower leg Laterality: Right Type of Debridement: Excisional debridement Anesthesia Used: 4% Lidocaine Solution Depth: in the subcutaneous layer Percentage of wound debrided: 100 Instrument Used: 7mm curette Tissue Removed: Adherent slough, fibrin, hyperkeratotic tissue Severity: Fat Layer Exposed Amount of bleeding with debridement: Mild Bleeding Controlled with: Pressure Patient tolerated procedure well Assessment/Plan Assessment: Ulcer right lower leg, DM II, PVD, ulcer right medial hallux Plan: Patient was examined and evaluated again today. Subcutaneous debridement was performed as noted in the clinical panel to the right lower leg. Once complete, silvercel was applied to the ulcer base, followed by a 3M wrap for compression. The patient was educated on the importance of keeping compression to the area. She was again informed to call the wound healing center or come in should she have any issues with her 3M wraps. She did well with these again last week. Patient was instructed to continue with proper high-protein diet as well as the importance of tight glycemic control. The patient was educated on all signs and symptoms of local and systemic infection, and she was instructed to go to the emergency room immediately should she notice any. All other questions and concerns were answered to the patient's satisfaction today. The patient will follow-up in the wound healing center in 1 week with me to check on progress, but was instructed to call the clinic sooner if needed.
== END 2018-07-06 23:59 ==
LOC: WC 11:00
PROVIDERS: Family Provider Family Medicine Geriatric Medicine; PCP Family Medicine Geriatric Medicine; Visit Provider Podiatrist
DX: E11.622 Type 2 diabetes mellitus with other skin ulcer (principal); E11.51 Type 2 diabetes mellitus with diabetic peripheral angiopathy without gangrene; R60.0 Localized edema; L97.812 Non-pressure chronic ulcer of other part of right lower leg with fat layer exposed; Z91.19 Patient's noncompliance with other medical treatment and regimen
CPT/HCPCS: 11042; 29581

== ENCOUNTER 2018-07-18 18:07 | Inpatient (IN) | payer MEDICARE, OTHER, SELFPAY ==
[2018-07-16 10:12] VITALS: BMI 32.6
[2018-07-18] VITALS (11 sets, daily range): BP systolic 104–126; BP diastolic 60–73; PULSE 83–114; RESP 14–22; TEMP 36.7–36.8; O2SAT 89–98; BMI 35.2; BMI 31.9
--- NOTE | 2018-07-18 18:10 | EKG12_ITS ---
Test Reason : NEURO S/SX Blood Pressure : / mmHG Vent. Rate : 109 BPM Atrial Rate : 109 BPM P-R Int : 126 ms QRS Dur : 074 ms QT Int : 416 ms P-R-T Axes : 013 011 134 degrees QTc Int : 560 ms Sinus tachycardia with Premature atrial complexes Nonspecific T wave abnormality Abnormal ECG Confirmed by EDWIN BLACK, QUINN ([id number]), editor news MICHAEL ALFORD ([id number]) on 07/21/2018 4:39:07 PM Referred By: Britton Bryan Confirmed By:QUINN PINEDA MD
--- NOTE | 2018-07-18 18:10 | CT_ITS ---
STUDY: CT BRAIN WITHOUT CONTRAST REASON FOR EXAM: Female, 67 years old. CVA, left facial droop and slurred speech. RADIATION DOSAGE (If Supplied By Facility): CTDIvol = ( 44.99 ) mGy, DLP = ( 779.24 ) mGycm TECHNIQUE: Transaxial CT imaging of the brain was performed without administration of intravenous contrast material. Individualized dose optimization techniques were used for this CT. COMPARISON: None. FINDINGS: Normal soft tissue structures. Normal calvarium. There is mild cerebral atrophy with widening of the extra-axial spaces and ventricular dilatation. There are areas of decreased attenuation within the white matter tracts of the supratentorial brain, consistent with microvascular disease changes. Normal basal ganglia and thalami. Normal brainstem. Normal cerebellum. There is no intracranial hemorrhage. There are no findings of an acute ischemic infarction. Normal visualized paranasal sinuses. CT/Brain/Head without Contrast IMPRESSION: 1. No acute findings. 2. Microvascular ischemia. Atrophy. Dr. Machado discussed the findings with Dr. Conrad at 6:35 PM. N.B. : The above information has been verbally conveyed by Martha Machado MD to Dr. Jose Conrad MD, on 07/18/2018 18:39:31 (ET). Electronically Signed: Martha Machado MD at 18:37 EST Tel , Service support ,
--- NOTE | 2018-07-18 18:14 | ED.VISSUMM ---
- ER Visit Summary Date of Service: 07/18/18 Chief Complaint: Right-sided weakness, facial droop History of Present Illness: The patient is a 67 F who has right-sided weakness and left-sided facial droop. She was last seen normal yesterday. Family member saw her today and noticed the facial droop. Upon EMS arrival she had dysarthria because of this facial droop. She was unable to move her right arm. She has trouble moving her right leg because of a josé implanted in it. During her transport she seemed to improve. Patient complains that she is thirsty however she has been eating and drinking okay according to her. No history of stroke in the past. She does have a history of peripheral vascular disease. Physical Examination: Vital signs are reviewed. Patient is alert and oriented and answers all questions. HEENT exam reveals dry mucous memories. Heart is irregularly irregular without murmurs. Lungs are clear bilaterally. Abdomen soft nontender. She is alert and oriented to self and to place but does not know the year or how old she is. She has bilateral lower extremity weakness secondary to what was mentioned above. She has no facial droop or dysarthria. Her NIH stroke scale is 9. Get exam reveals a stage II decubitus ulcer. Test Results: EKG was sinus tachycardia with PACs. Nonspecific ST and T wave changes. CAT scan of the head reveals chronic findings. Chest x-ray reveals chronic findings as well. White blood cell count 13 INR 1.4. Chloride 109. Urinalysis reveals 50-100 white blood cells. Troponin 0 0.112. Lactate 1.1 Emergency Department Course and Treatment: Patient received IV fluids. I started her on Rocephin. I do not feel that this is a stroke. I do not feel she requires TPA. Patient will be admitted to the hospital for sepsis and UTI Treatment Plan: [] Disposition: Admit Impression: Sepsis, UTI, weakness This note was generated with [employer] dictation software. It may contain incorrect words, spelling, and punctuation that were not noted in review of the chart prior to signing ED Disposition - Plan for ED Patient: Chief Complaint: Neuro S/Sx Referrals: Albert Jarvis Chi, MD [Primary Care Provider] -
[2018-07-18] MEDS: 0.9% Normal Saline 1,000 ML 999 ML IV (18:21)
[2018-07-18 18:37] LABS: Mucous, Urine 0 SEEN /hpf (<or=2+)
--- NOTE | 2018-07-18 18:37 | RAD_ITS ---
STUDY: X-RAY CHEST REASON FOR EXAM: Female, 67 years old. Altered mental status. TECHNIQUE: Single frontal view of the chest. COMPARISON: November 26, 2016 FINDINGS: There is low volume inspiration unchanged. The atelectasis of both bases has decreased since prior study.. There is no demonstrated pleural abnormality. There is stable cardiomegaly. Normal mediastinum and bala. Normal visualized pulmonary arteries. There is atherosclerotic calcification of the aortic arch with tortuosity. Normal visualized thoracic spine. Normal visualized ribs, clavicles, and shoulders. There is no demonstrated abnormality of the visualized soft tissue structures of the upper abdomen. RAD/Chest 1 View IMPRESSION: Low volume inspiration with cardiomegaly and atelectasis. No acute abnormality. Electronically Signed: Balwinder Bermudez MD at 19:25 EST , Service support ,
--- NOTE | 2018-07-18 18:37 | ED.RN ---
Addendum entered by Ade Goode 07/18/18 23:14: ERROR WOUND TO BUTTOCK IS ON THE RIGHT BUTTOCK. Original Note: PT HAS A SMALL RED AREA TO LATERAL RIGHT BACK, TO LEFT BUTTOCK AND 4CM AREA OF OPEN/RED FIRM SKIN, DR. STANFORD AWARE OF SAME.
[2018-07-18 18:38] LABS: Color, Urine Yellow (Yellow); Glucose, Dipstick Normal (Normal); Ketone-Dipstick 15 mg/dl (Negative); Leukocyte Esterase-Dipstick 500 /ul (Negative); Nitrite-Dipstick Negative (Negative); Occult Blood-Urine 50 /ul (Negative); Protein-Dipstick 15 mg/dl (Negative); Urine Clarity Cloudy (Clear); Urine Urobilinogen 4 mg/dl (Normal)
[2018-07-18 18:46] LABS: Urine Bilirubin Dipstick 1 mg/dL (Negative)
[2018-07-18 18:47] LABS: Bacteria 3+ /hpf (None Seen); Red Blood Cells-Urine 5-10 SEEN /hpf (0-5); Squamous Epithelial Cells - UA 0-5 SEEN /hpf (5-10); White Blood Cells 50-100 SEEN /hpf (0-5)
[2018-07-18 19:02] LABS: Absolute Neutrophil Count 11.3 X10^3/uL (2.0-7.7); Basophil# 0.01 X10^3/uL; Basophil% 0.1 % (0-1); Hematocrit 37.3 % (37-47); Lymphocyte % 7.7 % (19-41); Mean Corp Hgb Conc 32.2 g/gl (32-36); Mean Corpuscular Hgb 30.7 pg (27.0-32.0); Mean Corpuscular Volume 95.4 fL (81-99); Mean Platelet Vol. 11.2 fl (6.2-12.0); Monocyte# 0.61 X10^3/uL; Monocyte% 4.7 % (0-10); Neutrophil # 11.33 X10^3/uL (2.7-7.7); Neutrophil % 87.4 % (47-70); POSITIVE COUNT NO; POSITIVE DIFFERENTIAL NO; POSITIVE MORPHOLOGY NO; Platelet Count 144 K/mm3 (150-450); RBC Distribution Width CV 16.8 % (11.6-14.6); RBC Distribution Width SD 58.2 fl (35.1-43.9); Red Blood Count 3.91 M/mm3 (4.2-5.4)
[2018-07-18 19:13] LABS: Anion Gap 7 (5-15); BUN 29 mg/dL (7-18); BUN/Creat Ratio 33.7 RATIO (10-20); Calcium,Total 7.4 mg/dL (8.5-10.1); Chloride 109 mmol/L (98-107); Creatinine, Serum 0.86 mg/dL (0.55-1.02); EST Glomerular Filtration Rate 69 mL/min (>60); Est Glom Filt Rate - Afr Amer 84 mL/min (>60); Estimated Creatinine Clearance 48.83 ml/min; Glucose 136 mg/dL (74-106); Potassium 3.5 mmol/L (3.5-5.1); Sodium Level 144 mmol/L (136-145)
[2018-07-18 19:35] LABS: International Normalized Ratio 1.4; Prothrombin Time (Protime)PT. 17.2 SECONDS (11.7-14.9)
[2018-07-18 19:36] LABS: Partial Thromboplast Time 30.5 Seconds (24.1-36.2)
[2018-07-18 20:04] LABS: Lactic Acid 1.1 mmol/L (0.4-2.0)
--- NOTE | 2018-07-18 20:22 | HP.PCM_ITS ---
Problem List (1) Sepsis Status: Acute (2) Acute cystitis Status: Acute (3) Decubitus ulcer Status: Acute (4) PVD (peripheral vascular disease) Status: Chronic (5) Hyperlipidemia Status: Chronic Qualifiers: Hyperlipidemia type: unspecified Qualified Code(s): E78.5 - Hyperlipidemia, unspecified (6) Murmur, cardiac Status: Chronic (7) Other secondary pulmonary hypertension Status: Chronic (8) Lower extremity edema Status: Chronic History of Present Illness Date of Admission: 07/18/18 Chief Complaint: weakness and facial droop The patient is a 67 year old F with a significant history of type 2 diabetes; hypertension; hyperlipidemia; and PVD who was brought to the emergency department because she was unable to get up from the bed and because of facial droop noticed by a family member. The paramedics were called and patient was brought to the emergency department. At the emergency department no facial droop was noticed. The last the patient was seen normal was a day before her presentation. Patient complains of painful urination and increased frequency in urination. At emergency department CT of the head was not remarkable for any acute disease. Her urinalysis was abnormal. Patient had a tachycardia and tachypnea for which reason patient was diagnosed with sepsis secondary to cystitis and started on Ceftriaxone. Family reported that patient alleged heaviness in bilateral arms whiles at emergency department. Patient was noted to have infiltration of IV fluids in right. Also emergency department doctor reported wound on patient's coccyx that family did not know of. Patient follows up with Dr. Sharma, podiatry for right leg wound which has an Unna boot on. Past Medical History Past Medical History (Chronic Problems): Chronic Problems (Last Reviewed 07/19/18 @ 07:04 by Britton Bryan MD) PVD (peripheral vascular disease) (Chronic) Lower extremity edema (Chronic) Nonrheumatic aortic (valve) stenosis (Chronic) Nonrheumatic mitral (valve) stenosis (Chronic) Hyperlipidemia (Chronic) Other secondary pulmonary hypertension (Chronic) Hypertension (Chronic) Murmur, cardiac (Chronic) Medical History: Medical History (Last Reviewed 07/19/18 @ 07:04 by Britton Bryan MD) Nonrheumatic aortic (valve) stenosis (Chronic) I35.0 Nonrheumatic mitral (valve) stenosis (Chronic) I34.2 Hyperlipidemia (Acute) E78.5 Other secondary pulmonary hypertension (Acute) I27.29 Hypertension (Chronic) I10 Murmur, cardiac (Acute) R01.1 Anemia D64.9 Asthma J45.909 Depression F32.9 GERD (gastroesophageal reflux disease) K21.9 Hypoxia R09.02 Left carotid bruit R09.89 Neuropathic pain M79.2 CHIDI (obstructive sleep apnea) G47.33 Type 2 diabetes mellitus E11.9 Vertigo R42 Anemia (Inactive) D64.9 Aortic stenosis (Inactive) I35.0 Asthma (Inactive) J45.909 Concussion (Inactive) S06.0X9A Depression (Inactive) F32.9 Diabetes (Inactive) E11.9 Diabetes (Inactive) E11.9 Fall with injury (Inactive) W19.XXXA Fracture of hip, left, closed (Inactive) S72.002A GERD (gastroesophageal reflux disease) (Inactive) K21.9 Hyperlipidemia (Inactive) E78.5 Hypoxia (Inactive) R09.02 Mitral stenosis (Inactive) I05.0 Nausea (Inactive) R11.0 Neuropathic pain (Inactive) CHIDI (obstructive sleep apnea) (Inactive) G47.33 Obstructive sleep apnea (Inactive) G47.33 Pneumococcal pneumonia (Inactive) J13 S/P ORIF (open reduction internal fixation) fracture (Inactive) Z96.7, Z87.81 Vertigo (Inactive) R42 Allergies lisinopril Adverse Reaction (Intermediate, Verified 04/03/18 12:36) Unknown penicillin G Adverse Reaction (Intermediate, Verified 04/03/18 12:36) Unknown exenatide [From [place]] Adverse Reaction (Unknown, Verified 04/03/18 12:36) Unknown Home Medications: Ambulatory Orders Medication Instructions Recorded Aspirin [Aspirin, Baby] 81 mg PO DAILY@0800 03/24/15 Escitalopram Oxalate [Lexapro] 10 mg PO DAILY 03/24/15 Lisinopril [Zestril] 5 mg PO DAILY 03/24/15 Montelukast [Singulair] 10 mg PO DAILY 03/24/15 Multivitamins,Ther W-Minerals 1 tab PO DAILY 03/24/15 [Multivitamin With Minerals] Omeprazole [Prilosec] 40 mg PO DAILY 03/24/15 Pravastatin [Pravachol] 20 mg PO QHS 03/24/15 Cholecalciferol (VIT D3) [Vitamin 1,000 unit PO DAILY 11/22/16 D3] traMADol [Ultram (G)] 50 mg PO Q4H PRN PRN 10/09/17 gabapentin 300 mg capsule 600 mg PO QHS cap 10/20/17 polysaccharide iron complex 150 mg 150 mg PO QDAY cap 10/20/17 iron capsule furosemide 20 mg tablet 20 mg PO QDAY #30 tab 11/11/17 Oxybutynin Chloride [Ditropan Xl] 10 mg PO DAILY 03/30/18 Surgical History: Surgical History (Last Reviewed 07/19/18 @ 06:55 by Britton Bryan MD) History of cholecystectomy Z98.890, Z90.49 History of hernia repair Z98.890, Z87.19 History of partial colectomy Z98.890, Z90.49 History of total left knee replacement Z96.652 Lives: With Family Smoking Status: Former smoker - *Family History Maternal Family History: Family History (Last Reviewed 07/19/18 @ 06:56 by Britton Bryan MD) Sister CAD (coronary artery disease) Hx of CABG History Items: No pertinent history Paternal Family History: Family History (Last Reviewed 07/19/18 @ 06:56 by Britton Bryan MD) Sister CAD (coronary artery disease) Hx of CABG History Items: No pertinent history Review of Systems Constitutional: Reports: Weakness. Denies: Chills, Fever HEENT: Denies: Head Aches, Sinus Congestion, Sinus Drainage Cardiovascular: Denies: Chest Pain, Palpitations Respiratory: Denies: Cough, Shortness of breath at rest, Sputum production Gastrointestinal: Denies: Abdominal Pain, Nausea, Vomiting Genitourinary: Reports: Dysuria, Frequency - Increase frequency Musculoskeletal: Denies: Joint Pain, Joint Tenderness Skin: Reports: Wounds - Wound on coccyx. Denies: Rash Neurological: Denies: Numbness, Tingling, Focal weakness Psychiatric: Denies: Anxiety, Depression, Homicidal Ideations, Suicidal Ideations Hematologic/ Lymphatic: Denies: Easy Bruising, Easy Bleeding VTE Information - Inpt Only VTE Present on Admission: No VTE Mechan Device Prophylaxis: None VTE Pharm Prophylaxis ordered?: Yes Patient Problems: Active and Suspected Problems (Last Reviewed 07/19/18 @ 07:04 by Britton Bryan MD) Sepsis (Acute) Acute cystitis (Acute) Decubitus ulcer (Acute) - Physical Exam General: Alert, Oriented x3, Cooperative HEENT: Atraumatic, PERRLA, EOMI, Normocephalic Neck: Supple, No JVD, Negative Carotid Bruits Lungs: Clear to auscultation, Normal air movement Cardiovascular: Regular rate, Normal S2, Murmur Abdomen: Bowel Sounds Present, Soft, Non Tender Extremities: Capillary Refill Less than 3 Seconds, Edema - Left leg edema 1-2+ pitting edema; right leg in Unna boots, Tenderness - Left leg Skin: - - Pale. Ulcer on coccyx. Ecchymosis on left elbow. Swelling on left arm from IV fluids. Musculoskeletal: No Muscle Wasting, - - Restricted range of motion of bilateral legs. Neurological: Neuro grossly intact, - Psych/Mental Status: Normal Affect, Appropriate Vital Signs Temp Pulse Resp BP Pulse Ox 98.2 F 93 17 104/60 92 07/18/18 18:09 07/18/18 19:34 07/18/18 19:34 07/18/18 19:34 07/18/18 19:34 Oxygen Flow Rate (L/min) 2 Oxygen Delivery Method Nasal Cannula Weight: 87.4 kg Body Mass Index (BMI) 35.2 Finger Stick Blood Glucose 148 Laboratory Tests Past 24 Hrs 07/18/18 07/18/18 07/18/18 18:30 18:40 18:40 WBC 13.0 H RBC 3.91 L Hgb 12.0 Hct 37.3 MCV 95.4 MCH 30.7 MCHC 32.2 RDW 16.8 H RDW Differential 58.2 H Plt Count 144 L MPV 11.2 Immature Gran % (Auto) 0.100 Neut % (Auto) 87.4 H Lymph % (Auto) 7.7 L [place] % (Auto) 4.7 Eos % (Auto) 0.0 Baso % (Auto) 0.1 Absolute Neuts (auto) 11.3 H Absolute Lymphs (auto) 1.00 Total Counted Not Reportable PT Cancelled INR Cancelled APTT Cancelled Sodium Potassium Chloride Carbon Dioxide Anion Gap BUN Creatinine Estim Creat Clear Calc Est GFR (MDRD) Af Amer Est GFR (MDRD) Non-Af BUN/Creatinine Ratio Glucose Lactic Acid Calcium Troponin I Urine Color Yellow Urine Clarity Cloudy Urine pH 5.0 Ur Specific [place] 1.020 Urine Protein 15 H Urine Glucose (UA) Normal Urine Ketones 15 H Urine Occult Blood 50 H Urine Nitrite Negative Urine Bilirubin 1 H Urine Urobilinogen 4 H Ur Leukocyte Esterase 500 H Urine RBC 5-10 SEEN Urine WBC 50-100 SEEN Ur Squamous Epith Cells 0-5 SEEN Urine Bacteria 3+ Urine Mucus 0 SEEN 07/18/18 07/18/18 07/18/18 18:40 19:20 19:40 WBC RBC Hgb Hct MCV MCH MCHC RDW RDW Differential Plt Count MPV Immature Gran % (Auto) Neut % (Auto) Lymph % (Auto) [place] % (Auto) Eos % (Auto) Baso % (Auto) Absolute Neuts (auto) Absolute Lymphs (auto) Total Counted PT 17.2 H INR 1.4 APTT 30.5 Sodium 144 Potassium 3.5 Chloride 109 H Carbon Dioxide 28.0 Anion Gap 7 BUN 29 H Creatinine 0.86 Estim Creat Clear Calc 48.83 Est GFR (MDRD) Af Amer 84 Est GFR (MDRD) Non-Af 69 BUN/Creatinine Ratio 33.7 H Glucose 136 H Lactic Acid 1.1 Calcium 7.4 L Troponin I 0.112 H Urine Color Urine Clarity Urine pH Ur Specific [place] Urine Protein Urine Glucose (UA) Urine Ketones Urine Occult Blood Urine Nitrite Urine Bilirubin Urine Urobilinogen Ur Leukocyte Esterase Urine RBC Urine WBC Ur Squamous Epith Cells Urine Bacteria Urine Mucus Assessment/Plan All Active Problems (Last Reviewed 07/19/18 @ 07:04 by Britton Bryan MD) Ulcer of right lower extremity with fat layer exposed (Acute) Type 2 diabetes mellitus without complications (Acute) Delayed wound healing (Acute) Sepsis (Acute) Acute cystitis (Acute) Decubitus ulcer (Acute) The patient is a 67 year old F with a significant history of type 2 diabetes; hypertension; hyperlipidemia; and PVD who was brought to the emergency department because she was unable to get up from the bed and because of facial droop noticed by a family member; and also with tachypnea and tachycardia on presentation; and with abnormal urinalysis consistent with sepsis secondary to acute cystitis and probable TIA.. Sepsis due to acute cystitis On presentation patient meets SIRS criteria with a pulse rate of 93-114; respiratory rate of 21-22; as well as white blood count of 13K Her lactic acid was unremarkable Her creatinine was unremarkable We will continue patient on ceftriaxone. Blood cultures are pending Urine culture ordered Trend CBC and BMP Probable TIA CT of the head did not show any acute pathology -Check Hba1c, Lipid level Physical therapy, occupational therapy and speech therapy to work with patient. N.p.o. until bedside swallow eval. Daily aspirin. High intensity statin ordered Lipid profile and A1c ordered. Permissive hypertension. Control blood pressure with labetalol for systolic blood pressure of more than 220 or diastolic blood pressure of more than 120. 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 Was on the floor nurses complain of NIH of 8 which increased to 13 but with no slurry speech or facial droop. Floor nurse reported weakness in all 4 extremities. Weakness was worse in right than left arm; also worse in left leg. Also nurse reported bilateral arm Ataxia . Nurse reported that patient was dr collins as this NIH was been done. Probably these symptoms are due to chronic weakness and lack of motivation. Consider MRI/MRA of head and neck Diabetes mellitus On presentation her blood glucose was within range. There are no hypoglycemic medication on patient med list. Trend BMP. Hypertension Her blood pressure was fairly stable on admission On home lisinopril and Lasix. Received IV fluids at emergency department. Would hold lisinopril at this time for permissive hypertension for probable TIA. Lasix to resume in a.m. Decubitus ulcer of coccyx Calmoseptine ordered Wound care consult. Right leg wound Unna boot in place. Patient to follow-up with Dr. Sharma outpatient. Left Leg swelling Continue Lasix. DVT Prophylaxis Subcutaneous heparin Code Visit OBSV E&M: 30396 Initial observation care L3
--- NOTE | 2018-07-18 20:47 | ED.RN ---
PT C/O OF HEAVINESS TO RIGHT ARM, THIS NURSE TOUCHED PT'S RIGHT ARM AND IT WAS COLD TO THE TOUCH AND THE IV HAD INFILTRATED. IV WAS REMOVED AND WARM COMPRESS APPLIED.
[2018-07-18 21:49] LABS: Hemoglobin A1c 4.4 % (4.2-6.3)
[2018-07-18] MEDS: Ceftriaxone 500 MG Vial 1000 MG IM (22:23)
--- NOTE | 2018-07-18 22:56 | CDU_ITS ---
Reason For Study: TIA Rt. Velocities/BP Lt. Velocities/BP Prox CCA 62.1/10.6 cm/sec. Prox CCA 80.9/14.7 cm/sec. Mid CCA 51.5/18.9 cm/sec. Mid CCA 60.4/14.7 cm/sec. Dist CCA 47.9/13.4 cm/sec. Dist CCA 50.7/11 cm/sec. Prox ICA 38.5/11 cm/sec. Prox ICA 46.7/15.3 cm/sec. Mid ICA 73.9/24.6 cm/sec. Mid ICA 62.7/21.7 cm/sec. Dist ICA 57/24.2 cm/sec. Dist ICA 52.6/18.8 cm/sec. Rt. ICA/CCA = 1.43. Lt. ICA/CCA = 1.04. Prox ECA 63.9/7.04 cm/sec. Prox ECA 54.6/4.71 cm/sec. Rt. Vert. 46/11.8 cm/sec. Lt. Vert. 60.4/11.1 cm/sec. Right Extracranial There is intimal thickening but no significant atherosclerotic plaque noted in the right common carotid artery. There is heterogeneous, smooth atherosclerotic plaque noted in the right internal carotid artery. There is intimal thickening but no significant atherosclerotic plaque noted in the right external carotid artery. Antegrade flow is noted in the right vertebral artery. There is heterogeneous, irregular atherosclerotic plaque noted in the right bulb. Left Extracranial There is intimal thickening but no significant atherosclerotic plaque noted in the left common carotid artery. There is intimal thickening but no significant atherosclerotic plaque noted in the left internal carotid artery. There is intimal thickening but no significant atherosclerotic plaque noted in the left external carotid artery. Antegrade flow is noted in the left vertebral artery. There is heterogeneous, smooth atherosclerotic plaque noted in the left bulb. Procedure Carotid Duplex [id number]. Exam performed portable in patient room. Interpretation Summary Smooth calcific plague at the proximal right internal carotid with <50% stenosis. Widely patent left carotid bulb and proximal internal carotid with <50% stenosis Normal flow bilateral external carotids Patent and antegrade vertebrals bilaterally Ordering Physician: Britton Bryan Referring Physician: Albert Jarvis Chi Performed By: Patito Grajeda RVT and Student
--- NOTE | 2018-07-18 22:56 | ECHOD_ITS ---
Reason For Study: TIA/CVA Procedure This was a 2D Doppler, Color Flow transthoracic echocardiogram. Exam performed portable in patient room. Left Ventricle Normal LV size. Mild concentric left ventricular hypertrophy. Left ventricular systolic function is normal. The estimated ejection fraction is 60 %. Stage 1 diastolic dysfunction. No regional wall motion abnormalities noted. Atria The left atrium is moderately enlarged. Normal right atrium. Bubble contrast study negative for right to left interatrial shunt. Tricuspid Valve Normal tricuspid valve. Mild (1+) tricuspid valve insufficiency. Pulmonary artery systolic pressure is 34 mmHg. Aortic Valve Trisinus/trileaflet aortic valve. Mild diffuse aortic valve thickening. Pulmonic Valve Normal pulmonic valve. Great Vessels Normal aortic root. The pulmonary artery is normal size. Normal inferior vena cava. Pericardium/Pleural No pericardial effusion. Medication Performed a rapid injection of agitated mix of 9 cc saline and 1cc air to assess for atrial septal defect. MMode/2D Measurements & Calculations LVIDd: 4.1 cm IVSd: 1.2 cm LVOT diam: 2.0 cm LVIDs: 2.4 cm LVPWd: 1.2 cm LVOT area: 3.2 cm2 RVDd: 3.2 cm FS: 42.6 % Ao root diam: 3.1 cm LAV(MOD-bp): 77.4 ml LA A4 area: 23.9 cm2 LAV(MOD-bp) Indexed: 41.2 ml/m2 LAV(MOD-sp2): 69.8 ml LAV(MOD-sp4): 76.9 ml LA dimension(2D): 4.8 cm RA A4 area: 10.1 cm2 Doppler Measurements & Calculations MV E max solo: 99.9 cm/sec Lat Peak E' Solo: 5.6 cm/sec Med Peak E' Solo: 4.8 cm/sec MV A max solo: 144.1 cm/sec E/E' lat: 18.0 E/E' med: 20.6 MV E/A: 0.69 Ao V2 max: 283.4 cm/sec LV V1 max: 123.4 cm/sec SV(LVOT): 83.9 ml Ao max P.1 mmHg LV V1 max P.1 mmHg Ao V2 mean: 207.1 cm/sec LV V1 mean P.4 mmHg Ao mean P.7 mmHg LV V1 mean: 87.8 cm/sec Ao V2 VTI: 59.5 cm LV V1 VTI: 26.2 cm PARVIZ(I,D): 1.4 cm2 PARVIZ(V,D): 1.4 cm2 PA V2 max: 118.4 cm/sec TR max solo: 273.0 cm/sec TR max P.9 mmHg Interpretation Summary Normal LV size. Mild concentric left ventricular hypertrophy. Left ventricular systolic function is normal. The estimated ejection fraction is 60 %. Stage 1 diastolic dysfunction. Mild (1+) tricuspid valve insufficiency. Pulmonary artery systolic pressure is 34 mmHg. Ordering Physician: Britton Bryan Referring Physician: Albert Jarvis Chi Performed By: Ember Andrews RDCS, RVT
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
--- NOTE | 2018-07-18 23:08 | ED.RN ---
PT REPORTED TO THIS NURSE IN THE E.D. THAT SHE AND HER SISTER COOK FOR EACH OTHER AND CARE FOR EACH OTHER. PT HAS MULTIPLE WOUNDS TO BUTTOCK AND LARGE BLUE/RED BRUISE TO BACK. PT HAS EXTREME EDEMA TO BLE. PT DOES HAVE BRUISE LARGE BRUISE TO LAC NOT RELATED TO BEING AT HOME, ATTEMPT TO START IV WAS UNSUCCESSFUL. 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
[2018-07-19] VITALS (12 sets, daily range): BP systolic 111–135; BP diastolic 58–86; PULSE 80–117; RESP 15–20; TEMP 37–37.1; O2SAT 92–97
[2018-07-19] MEDS: Gabapentin 600 MG Tablet PO ×2 (00:07→21:13)
[2018-07-19] MEDS: Heparin Injection (Vial) 5,000 UNIT/ML VIAL 5000 UNIT SC ×4 (00:07→21:13)
[2018-07-19] MEDS: Atorvastatin Calcium 80 MG Tablet PO ×2 (00:07→21:13)
[2018-07-19] MEDS: Menthol/Lanolin/Calamine/Znox 113 GM Tube 1 APPLIC TOPICAL ×3 (00:15→21:14)
--- NOTE | 2018-07-19 03:36 | NURSING ---
Pt very drowsy at this this time. Requires repeated stimulation to follow commands.
[2018-07-19 06:55] LABS: Hematocrit 36.3 % (37-47); Hemoglobin 11.5 g/dl (12.0-15.0); Mean Corp Hgb Conc 31.7 g/gl (32-36); Mean Corpuscular Hgb 30.4 pg (27.0-32.0); Mean Platelet Vol. 12.1 fl (6.2-12.0); Platelet Count 151 K/mm3 (150-450); RBC Distribution Width CV 17.1 % (11.6-14.6); RBC Distribution Width SD 59.5 fl (35.1-43.9); Red Blood Count 3.78 M/mm3 (4.2-5.4)
[2018-07-19 06:56] LABS: Bedside Glucose 128 mg/dL (70-110)
[2018-07-19 07:02] LABS: Scan Indicated on CBC? Y/N NO
[2018-07-19 07:24] LABS: Anion Gap 7 (5-15); BUN 28 mg/dL (7-18); BUN/Creat Ratio 41.1 RATIO (10-20); Calcium,Total 7.3 mg/dL (8.5-10.1); Chloride 111 mmol/L (98-107); Cholesterol 54 mg/dL (200); Creatinine, Serum 0.68 mg/dL (0.55-1.02); EST Glomerular Filtration Rate 91 mL/min (>60); Est Glom Filt Rate - Afr Amer 110 mL/min (>60); Estimated Creatinine Clearance 45.85 ml/min; Glucose 119 mg/dL (74-106); High Density Lipoprotein 46 mg/dL; Potassium 3.3 mmol/L (3.5-5.1); Sodium Level 146 mmol/L (136-145); Triglycerides 63 mg/dL; Very Low Density Lipoprotein 13 mg/dL (5-40)
--- NOTE | 2018-07-19 08:28 | PN_ITS ---
Patient Problems: Active and Suspected Problems (Last Updated 07/19/18 @ 08:25 by Ras Patterson MD) Sepsis (Acute) Acute cystitis (Acute) Decubitus ulcer (Acute) Subjective: Chief complaint: Follow-up after admission for acute cystitis and questionable symptoms of TIA versus acute stroke. Patient seen and examined. No acute events overnight. Today, she denies any significant complaints. When I asked her about the symptoms that the family member mentioned about she stated that she is not aware of any of the symptoms. She said she did not know that she had a facial droop or right-sided weakness. Reportedly, patient had facial droop and dysarthria upon arrival of the EMS. Reportedly in the ER, her NIH stroke scale was 9. Her vital signs are stable. - Physical Exam General: Alert, Oriented x3, Cooperative, No apparent distress HEENT: Atraumatic, PERRLA, EOMI, Normocephalic Oral: Moist Mucosa, No Gingival or Mucosal Lesions/ Ulcerations Neck: Supple, No JVD, Negative Carotid Bruits, Trachea Midline, Thyroid Normal Size and Texture Lungs: Clear to auscultation, No rhonchi, No wheeze, No rales, Diminished Cardiovascular: Regular rate, Regular Rhythm, Normal S1, Normal S2, PMI Normal Abdomen: Bowel Sounds Present, Soft, Non Tender, Non-Distended, No Hepato- splenomegaly Extremities: No clubbing, No cyanosis, Edema Skin: No rashes, Ulcer/ Wound Lymphatic: No Cervical, Supraclavicular, or Inguinal Adenopathy Neurological: - - Minimal left-sided facial droop, global weakness. Left upper arm is minimally weak and it is likely because she has fracture and josé for fixation that was done recently. Psych/Mental Status: Normal Affect, Appropriate, Alert and oriented to time, place, person, mood and affect Vital Signs Temp Pulse Resp BP Pulse Ox 98.7 F 81 16 129/82 H 94 07/19/18 07:11 07/19/18 08:14 07/19/18 07:11 07/19/18 07:11 07/19/18 07:11 Oxygen Flow Rate (L/min) 2 Oxygen Delivery Method Nasal Cannula Weight: 186 lb 1.122 oz Body Mass Index (BMI) 31.9 Finger Stick Blood Glucose 148 Intake and Output for Last 24 Hours 07/17/18 07/18/18 07/19/18 23:59 23:59 23:59 Intake Total 0 / 0 0 / 0 Output Total 0 / 0 0 / 0 Balance 0 / 0 0 / 0 Laboratory Tests Past 24 Hrs 07/18/18 07/18/18 07/18/18 18:30 18:40 18:40 WBC 13.0 H RBC 3.91 L Hgb 12.0 Hct 37.3 MCV 95.4 MCH 30.7 MCHC 32.2 RDW 16.8 H RDW Differential 58.2 H Plt Count 144 L MPV 11.2 Immature Gran % (Auto) 0.100 Neut % (Auto) 87.4 H Lymph % (Auto) 7.7 L [place] % (Auto) 4.7 Eos % (Auto) 0.0 Baso % (Auto) 0.1 Absolute Neuts (auto) 11.3 H Absolute Lymphs (auto) 1.00 Total Counted Not Reportable PT Cancelled INR Cancelled APTT Cancelled Sodium Potassium Chloride Carbon Dioxide Anion Gap BUN Creatinine Estim Creat Clear Calc Est GFR (MDRD) Af Amer Est GFR (MDRD) Non-Af BUN/Creatinine Ratio Glucose Hemoglobin A1c Lactic Acid Calcium Troponin I Triglycerides Cholesterol LDL Cholesterol VLDL Cholesterol HDL Cholesterol Urine Color Yellow Urine Clarity Cloudy Urine pH 5.0 Ur Specific [place] 1.020 Urine Protein 15 H Urine Glucose (UA) Normal Urine Ketones 15 H Urine Occult Blood 50 H Urine Nitrite Negative Urine Bilirubin 1 H Urine Urobilinogen 4 H Ur Leukocyte Esterase 500 H Urine RBC 5-10 SEEN Urine WBC 50-100 SEEN Ur Squamous Epith Cells 0-5 SEEN Urine Bacteria 3+ Urine Mucus 0 SEEN 07/18/18 07/18/18 07/18/18 18:40 18:42 19:20 WBC RBC Hgb Hct MCV MCH MCHC RDW RDW Differential Plt Count MPV Immature Gran % (Auto) Neut % (Auto) Lymph % (Auto) [place] % (Auto) Eos % (Auto) Baso % (Auto) Absolute Neuts (auto) Absolute Lymphs (auto) Total Counted PT 17.2 H INR 1.4 APTT 30.5 Sodium 144 Potassium 3.5 Chloride 109 H Carbon Dioxide 28.0 Anion Gap 7 BUN 29 H Creatinine 0.86 Estim Creat Clear Calc 48.83 Est GFR (MDRD) Af Amer 84 Est GFR (MDRD) Non-Af 69 BUN/Creatinine Ratio 33.7 H Glucose 136 H Hemoglobin A1c 4.4 Lactic Acid Calcium 7.4 L Troponin I 0.112 H Triglycerides Cholesterol LDL Cholesterol VLDL Cholesterol HDL Cholesterol Urine Color Urine Clarity Urine pH Ur Specific [place] Urine Protein Urine Glucose (UA) Urine Ketones Urine Occult Blood Urine Nitrite Urine Bilirubin Urine Urobilinogen Ur Leukocyte Esterase Urine RBC Urine WBC Ur Squamous Epith Cells Urine Bacteria Urine Mucus 07/18/18 07/19/18 07/19/18 19:40 05:44 05:44 WBC 12.0 H RBC 3.78 L Hgb 11.5 L Hct 36.3 L MCV 96.0 MCH 30.4 MCHC 31.7 L RDW 17.1 H RDW Differential 59.5 H Plt Count 151 MPV 12.1 H Immature Gran % (Auto) Neut % (Auto) Lymph % (Auto) [place] % (Auto) Eos % (Auto) Baso % (Auto) Absolute Neuts (auto) Absolute Lymphs (auto) Total Counted PT INR APTT Sodium 146 H Potassium 3.3 L Chloride 111 H Carbon Dioxide 28.0 Anion Gap 7 BUN 28 H Creatinine 0.68 Estim Creat Clear Calc 45.85 Est GFR (MDRD) Af Amer 110 Est GFR (MDRD) Non-Af 91 BUN/Creatinine Ratio 41.1 H Glucose 119 H Hemoglobin A1c Lactic Acid 1.1 Calcium 7.3 L Troponin I Triglycerides 63 Cholesterol 54 LDL Cholesterol -5 L VLDL Cholesterol 13 HDL Cholesterol 46 Urine Color Urine Clarity Urine pH Ur Specific [place] Urine Protein Urine Glucose (UA) Urine Ketones Urine Occult Blood Urine Nitrite Urine Bilirubin Urine Urobilinogen Ur Leukocyte Esterase Urine RBC Urine WBC Ur Squamous Epith Cells Urine Bacteria Urine Mucus POC Glucose 07/19/18 04:50 POC Glucose 128 H Clinical Impression(s) from Imaging Studies Brain CT 07/18/18 18:10 IMPRESSION: 1. No acute findings. 2. Microvascular ischemia. Atrophy. Dr. Machado discussed the findings with Dr. Conrad at 6:35 PM. N.B. : The above information has been verbally conveyed by Martha Machado MD to Dr. Jose Conrad MD, on 07/18/2018 18:39:31 (ET). Electronically Signed: Martha Machado MD at 18:37 EST Tel , Service support , Chest X-Ray 07/18/18 18:37 IMPRESSION: Low volume inspiration with cardiomegaly and atelectasis. No acute abnormality. Electronically Signed: Balwinder Bermudez MD at 19:25 EST , Service support , Medical Necessity - Tobacco Use Smoking Status: Former smoker Tobacco Use: Cigarettes Assessment/Plan All Active Problems (Last Updated 07/19/18 @ 08:25 by Ras Patterson MD) Sepsis (Acute) Acute cystitis (Acute) Decubitus ulcer (Acute) This is a 67 years old female patient presented to the ED because of reported right-sided weakness and left facial droop, found to have acute cystitis and she was admitted for questionable TIA versus acute stroke. #1 sepsis/acute cystitis: Started on IV Rocephin. Her vital signs are stable, afebrile. Urine culture ordered, patient will need [place] catheter. She has been having diarrhea, stool for C. difficile was sent. Plan to continue same treatment. #2 questionable reported facial droop/right side with weakness: Concern for TIA versus acute stroke although her symptoms are not consistent with stroke. Reportedly, she had left minimal facial droop and right-sided weakness which cannot be consistent with acute stroke. CT scan brain showed no acute findings. 2D echocardiogram and carotid Doppler ordered. I will order MRI brain. Continue aspirin and statins. #3 decubitus ulcer of the coccyx: Chronic, wound care nurse consulted, continue dry sterile dressing. 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 Wound care nurse consulted as above. #5 type 2 diabetes mellitus: Blood sugar stable, hemoglobin A1c was 4.4 yesterday. Stable. #6 peripheral vascular disease: Stable, continue aspirin and statins. #7 hyperlipidemia: Continue statins. #8 DVT prophylaxis: Subcu heparin. This note was generated with [employer] software. It may contain incorrect words, spelling, and punctuation that were not noted in checking the note before signing. Code Visit Inpatient E&M: 51326 Subs Hosp L2
[2018-07-19 09:56] LABS: Bedside Glucose 115 mg/dL (70-110)
[2018-07-19] MEDS: Multivitamins,Ther W-Minerals Tablet 1 TABLET PO (10:58)
[2018-07-19] MEDS: Escitalopram Oxalate 10 MG Tablet PO (10:58)
[2018-07-19] MEDS: Furosemide 20 MG Tablet PO (10:58)
[2018-07-19] MEDS: Iron Polysaccharide Complex 150 MG CAPSULE PO (10:58)
[2018-07-19] MEDS: Pantoprazole Sodium 40 MG Tablet PO (10:58)
[2018-07-19] MEDS: Tolterodine Tartrate 2 MG CAP.SA PO (10:58)
[2018-07-19] MEDS: Montelukast 10 MG Tablet PO (10:58)
[2018-07-19] MEDS: Aspirin 81 MG TAB.CHEW PO (10:58)
[2018-07-19 11:06] LABS: Bedside Glucose 142 mg/dL (70-110)
[2018-07-19 12:41] LABS: Bedside Glucose 123 mg/dL (70-110)
[2018-07-19] MEDS: Loperamide 2 MG Capsule PO (16:15)
[2018-07-19 16:50] LABS: Bedside Glucose 157 mg/dL (70-110)
[2018-07-19] MEDS: 0.9% NaCl Peripheral Flush Adult/Peds IV ×2 (21:00→23:00)
[2018-07-19] MEDS: Ceftriaxone 1 GM/50 ML BAG IV (21:11)
[2018-07-19 23:10] LABS: Bedside Glucose 169 mg/dL (70-110)
[2018-07-20] VITALS (12 sets, daily range): BP systolic 116–129; BP diastolic 64–85; PULSE 75–98; RESP 14–19; TEMP 36.9–37.3; O2SAT 92–96
[2018-07-20] MEDS: Pilocarpine HCl 5 MG Tablet PO ×3 (05:28→21:16)
[2018-07-20] MEDS: Acetaminophen 325 MG Tablet 650 MG PO (05:30)
[2018-07-20] MEDS: Heparin Injection (Vial) 5,000 UNIT/ML VIAL 5000 UNIT SC ×3 (05:31→21:15)
[2018-07-20 06:36] LABS: Absolute Lymphocyte Count 1.14 X10^3/ul (0.83-4.51); Absolute Neutrophil Count 6.9 X10^3/uL (2.0-7.7); Basophil# 0.01 X10^3/uL; Basophil% 0.1 % (0-1); Eosinophil# 0.05 X10^3/uL; Eosinophils% 0.6 % (0-5); Hematocrit 34.6 % (37-47); Hemoglobin 10.8 g/dl (12.0-15.0); Lymphocyte # 1.14 X10^3/ul (4.0); Lymphocyte % 12.9 % (19-41); Mean Corp Hgb Conc 31.2 g/gl (32-36); Mean Corpuscular Hgb 30.3 pg (27.0-32.0); Mean Corpuscular Volume 97.2 fL (81-99); Mean Platelet Vol. 11.8 fl (6.2-12.0); Monocyte% 7.9 % (0-10); Neutrophil # 6.94 X10^3/uL (2.7-7.7); Neutrophil % 78.2 % (47-70); Platelet Count 114 K/mm3 (150-450); RBC Distribution Width CV 17.4 % (11.6-14.6); RBC Distribution Width SD 61.4 fl (35.1-43.9); Red Blood Count 3.56 M/mm3 (4.2-5.4); White Blood Count 8.9 K/mm3 (4.4-11.0)
[2018-07-20 06:38] LABS: Anion Gap 8 (5-15); BUN 23 mg/dL (7-18); BUN/Creat Ratio 37.4 RATIO (10-20); Calcium,Total 7.2 mg/dL (8.5-10.1); Chloride 113 mmol/L (98-107); Creatinine, Serum 0.62 mg/dL (0.55-1.02); EST Glomerular Filtration Rate 102 mL/min (>60); Est Glom Filt Rate - Afr Amer 124 mL/min (>60); Estimated Creatinine Clearance 45.85 ml/min; Glucose 97 mg/dL (74-106); Potassium 4.1 mmol/L (3.5-5.1); Sodium Level 146 mmol/L (136-145)
[2018-07-20 07:01] LABS: Bedside Glucose 112 mg/dL (70-110)
[2018-07-20 07:12] LABS: POSITIVE COUNT NO; POSITIVE DIFFERENTIAL NO; POSITIVE MORPHOLOGY NO
--- NOTE | 2018-07-20 08:29 | MRI_ITS ---
STUDY: MRI BRAIN WITHOUT CONTRAST REASON FOR EXAM: Female, 67 years old. Facial droop and weakness TECHNIQUE: Standardized multiplanar fat and water weighted pulse sequences were obtained. COMPARISON: None. FINDINGS: Normal size of the ventricles and extra-axial spaces for the patient's age. There are multiple white matter hyperintensities, distributed throughout the deep white matter tracts of the cerebral hemispheres, consistent with moderate chronic white matter ischemic changes. Normal bilateral basal ganglia. Normal thalami. There is no extra-axial fluid accumulation. Normal flow voids within the major intracranial circulation suggesting patency by spin echo criteria. Normal sella turcica, pituitary gland, infundibular stalk, optic chiasm and hypothalamus. Normal tectal plate and pineal gland. There are chronic white matter ischemic changes of the shanika. The midbrain and medulla are otherwise normal. Normal cerebellum. Normal basal cisterns. Normal bilateral temporal bones. Normal bilateral internal auditory canals. Bilateral lens replacements. Normal visualized paranasal sinuses. Normal calvarium and skull base. Normal visualized soft tissue structures. Normal visualized upper cervical spine. MRI/Brain without Contrast IMPRESSION: No evidence of infarct or hemorrhage. Microangiopathic changes as described. Electronically Signed: Lawrence Toledo MD at 10:03 EST Tel , Service support ,
[2018-07-20] MEDS: Menthol/Lanolin/Calamine/Znox 113 GM Tube 1 APPLIC TOPICAL ×2 (09:51→21:21)
[2018-07-20] MEDS: Aspirin 81 MG TAB.CHEW PO (09:51)
[2018-07-20] MEDS: Tolterodine Tartrate 2 MG CAP.SA PO (09:56)
[2018-07-20] MEDS: Iron Polysaccharide Complex 150 MG CAPSULE PO (09:56)
[2018-07-20] MEDS: Multivitamins,Ther W-Minerals Tablet 1 TABLET PO (09:56)
[2018-07-20] MEDS: Escitalopram Oxalate 10 MG Tablet PO (09:57)
[2018-07-20] MEDS: Montelukast 10 MG Tablet PO (09:57)
[2018-07-20] MEDS: Furosemide 20 MG Tablet PO (09:57)
[2018-07-20] MEDS: Pantoprazole Sodium 40 MG Tablet PO (09:57)
--- NOTE | 2018-07-20 10:58 | PCM.PN.HOSP ---
Patient Problems: Active and Suspected Problems (Last Updated 07/19/18 @ 08:25 by Rsa Patterson MD) Sepsis (Acute) Acute cystitis (Acute) Decubitus ulcer (Acute) Subjective: Patient is a 67-year-old lady with multiple comorbidities including chronic decubitus ulcer involving the coccyx admitted with right-sided weakness and left facial droop. Patient was also found to have sepsis secondary to acute cystitis Objective: GENERAL: cooperative HEENT: Atraumatic; EYES; Anicteric, NECK; supple, normal thyroid, RESPIRATORY: Diminished to auscultation bilaterally, CARDIOVASCULAR: Regular S1 S2, GI: soft, non-tender, normoactive bowel sounds, : No Renal angle tenderness; EXTREMITIES: No edema, no clubbing, no cyanosis. MUSCULOSKELETAL: No Joint Tenderness; NEURO: Awake; no lateralizing signs. SKIN: nonhealing ulcer involving the right leg PSYCH; Normal affect Vitals/I&O's: Vital Signs Temp Pulse Resp BP Pulse Ox 98.8 F 77 16 129/85 H 95 07/20/18 09:45 07/20/18 09:45 07/20/18 09:45 07/20/18 09:45 07/20/18 09:45 Oxygen Flow Rate (L/min) 3 Oxygen Delivery Method Nasal Cannula Weight: 84.4 kg Body Mass Index (BMI) 31.9 Finger Stick Blood Glucose 148 Intake and Output for Last 24 Hours 07/18/18 07/19/18 07/20/18 23:59 23:59 23:59 Intake Total 0 / 0 1429.4 / 1429.4 0 / 0 Output Total 0 / 0 1075 / 1075 280 / 280 Balance 0 / 0 354.4 / 354.4 -280 / -280 Microbiology Past 72 Hours 07/19/18 12:35 Stool C. difficile DNA Amplification - Final Laboratory Results 07/18/18 18:11: POC Glucose 142 H 07/19/18 11:55: POC Glucose 123 H 07/19/18 16:18: POC Glucose 157 H 07/19/18 21:01: POC Glucose 169 H 07/20/18 04:56: WBC 8.9, RBC 3.56 L, Hgb 10.8 L, Hct 34.6 L, MCV 97.2, MCH 30.3, MCHC 31.2 L, RDW 17.4 H, RDW Differential 61.4 H, Plt Count 114 L, MPV 11.8, Immature Gran % (Auto) 0.300, Neut % (Auto) 78.2 H, Lymph % (Auto) 12.9 L, [place] % (Auto) 7.9, Eos % (Auto) 0.6, Baso % (Auto) 0.1, Absolute Neuts (auto) 6.9, Absolute Lymphs (auto) 1.14, Total Counted Not Reportable 07/20/18 04:56: Sodium 146 H, Potassium 4.1, Chloride 113 H, Carbon Dioxide 25.0, Anion Gap 8, BUN 23 H, Creatinine 0.62, Estim Creat Clear Calc 45.85, Est GFR (MDRD) Af Amer 124, Est GFR (MDRD) Non-Af 102, BUN/Creatinine Ratio 37.4 H, Glucose 97, Calcium 7.2 L 07/20/18 06:56: POC Glucose 112 H Current Medications Acetaminophen (Tylenol) 650 mg PO Q6H PRN PRN PRN Reason: Pain/Fever>100.4 Last Admin: 07/20/18 05:30 Dose: 650 mg Aspirin (Aspirin, Baby) 81 mg PO DAILY@0800 [facility] Last Admin: 07/20/18 09:51 Dose: 81 mg Atorvastatin Calcium (Lipitor) 80 mg PO QHS [facility] Last Admin: 07/19/18 21:13 Dose: 80 mg Calamine/Phenol (Calmoseptine Ointment) 1 applic TOPICAL BID [facility]; Protocol Last Admin: 07/20/18 09:51 Dose: 1 applicatio Cholecalciferol (Vitamin D) 1,000 unit PO DAILY [facility] Last Admin: 07/20/18 09:57 Dose: 1,000 unit Escitalopram Oxalate (Lexapro) 10 mg PO DAILY [facility] Last Admin: 07/20/18 09:57 Dose: 10 mg Furosemide (Lasix) 20 mg PO DAILY [facility] Last Admin: 07/20/18 09:57 Dose: 20 mg Gabapentin (Neurontin) 600 mg PO QHS [facility] Last Admin: 07/19/18 21:13 Dose: 600 mg Heparin Sodium (Porcine) (Heparin Na) 5,000 unit SC Q8 [facility] Last Admin: 07/20/18 05:31 Dose: 5,000 unit Ceftriaxone Sodium (Rocephin) 1 gm in 50 mls @ 100 mls/hr IV Q24@2200 [facility] Last Admin: 07/19/18 21:11 Dose: 100 mls/hr Sodium Chloride () 250 mls @ 15 mls/hr IV .[id number] PRN PRN Reason: SALINE FLUSH Loperamide HCl (Imodium) 2 mg PO Q4H PRN PRN PRN Reason: DIARRHEA/LOOSE STOOLS Last Admin: 07/19/18 16:15 Dose: 2 mg Magnesium Hydroxide (Milk Of Magnesia) 30 ml PO DAILY PRN PRN Reason: Constipation Montelukast Sodium (Singulair) 10 mg PO DAILY [facility] Last Admin: 07/20/18 09:57 Dose: 10 mg [facility]ivitamins/Minerals ([facility] Admin: 07/20/18 09:56 Dose: 1 tablet Nutritional Formula (Lactose Free) (Glucerna Shake) 120 ml PO 4X/DAY [facility] Last Admin: 07/20/18 09:57 Dose: Not Given Ondansetron HCl (Zofran) 4 mg IV Q8H PRN PRN PRN Reason: NAUSEA Pantoprazole Sodium (Protonix) 40 mg PO DAILY [facility] Last Admin: 07/20/18 09:57 Dose: 40 mg Pilocarpine HCl (Salagen) 5 mg PO TID [facility] Last Admin: 07/20/18 05:28 Dose: 5 mg Polysaccharide Iron Complex (Ferrex 150) 150 mg PO DAILY [facility] Last Admin: 07/20/18 09:56 Dose: 150 mg Potassium [facility] ([facility]) [facility] Admin: 07/20/18 09:56 Dose: 40 meq Sodium Chloride () 5 - 15 ml IV UD PRN PRN Reason: SALINE FLUSH Last Admin: 07/19/18 23:00 Dose: 10 ml Tolterodine Tartrate (Detrol La) 2 mg PO DAILY [facility] Last Admin: 07/20/18 09:56 Dose: 2 mg Zolpidem Tartrate (Ambien (Generic)) 5 mg PO QHS PRN PRN PRN Reason: INSOMNIA Medical Necessity - Tobacco Use Smoking Status: Former smoker Tobacco Use: Cigarettes Assessment/Plan All Active Problems (Last Updated 07/19/18 @ 08:25 by Ras Patterson MD) Sepsis (Acute) Acute cystitis (Acute) Decubitus ulcer (Acute) Patient is a 67-year-old lady with multiple comorbidities including chronic decubitus ulcer involving the coccyx admitted with right-sided weakness and left facial droop. Patient was also found to have sepsis secondary to acute cystitis 1. Transient ischemic attack acute CVA was ruled out with imaging studies with MRI 2. Sepsis secondary to acute cystitis patient was started on-cultures sent 3. Decubitus ulcer involving the coccyx consult was placed to wound care nurse 4. Chronic nonhealing ulcer involving the right leg patient requested consultation with Dr. Sharma with podiatry consult placed 5. Diabetes mellitus type 2 did continue with home regimen in addition to Accu-Cheks before meals and at bedtime with sliding scale coverage 6. Dyslipidemia-patient is on statin therapy, continued at home dose 7. Obesity with BMI of 31.9 8. Peripheral vascular disease 9. GERD on PPI 10. Diabetic neuropathy patient is on gabapentin 11. Depression patient is on SSRI 12. DVT prophylaxis SC heparin 13. Physical deconditioning requested for PT OT and social and political studies professor to assist with discharge planning possibly to [facility] facility Active Medications Acetaminophen (Tylenol) 650 mg PO Q6H PRN PRN PRN Reason: Pain/Fever>100.4 Last Admin: 07/20/18 05:30 Dose: 650 mg Aspirin (Aspirin, Baby) 81 mg PO DAILY@0800 [facility] Last Admin: 07/20/18 09:51 Dose: 81 mg Atorvastatin Calcium (Lipitor) 80 mg PO QHS [facility] Last Admin: 07/19/18 21:13 Dose: 80 mg Calamine/Phenol (Calmoseptine Ointment) 1 applic TOPICAL BID [facility]; Protocol Last Admin: 07/20/18 09:51 Dose: 1 applicatio Cholecalciferol (Vitamin D) 1,000 unit PO DAILY [facility] Last Admin: 07/20/18 09:57 Dose: 1,000 unit Escitalopram Oxalate (Lexapro) 10 mg PO DAILY [facility] Last Admin: 07/20/18 09:57 Dose: 10 mg Furosemide (Lasix) 20 mg PO DAILY [facility] Last Admin: 07/20/18 09:57 Dose: 20 mg Gabapentin (Neurontin) 600 mg PO QHS [facility] Last Admin: 07/19/18 21:13 Dose: 600 mg Heparin Sodium (Porcine) (Heparin Na) 5,000 unit SC Q8 [facility] Last Admin: 07/20/18 13:33 Dose: 5,000 unit Ceftriaxone Sodium (Rocephin) 1 gm in 50 mls @ 100 mls/hr IV Q24@2200 [facility] Last Admin: 07/19/18 21:11 Dose: 100 mls/hr Sodium Chloride () 250 mls @ 15 mls/hr IV .[id number] PRN PRN Reason: SALINE FLUSH Loperamide HCl (Imodium) 2 mg PO Q4H PRN PRN PRN Reason: DIARRHEA/LOOSE STOOLS Last Admin: 07/19/18 16:15 Dose: 2 mg Magnesium Hydroxide (Milk Of Magnesia) 30 ml PO DAILY PRN PRN Reason: Constipation Montelukast Sodium (Singulair) 10 mg PO DAILY [facility] Last Admin: 07/20/18 09:57 Dose: 10 mg Multivitamins/Minerals (Multivitamin With Minerals) 1 tablet PO DAILYCM [facility] Last Admin: 07/20/18 09:56 Dose: 1 tablet Ondansetron HCl (Zofran) 4 mg IV Q8H PRN PRN PRN Reason: NAUSEA Pantoprazole Sodium (Protonix) 40 mg PO DAILY [facility] Last Admin: 07/20/18 09:57 Dose: 40 mg Pilocarpine HCl (Salagen) 5 mg PO TID [facility] Last Admin: 07/20/18 13:33 Dose: 5 mg Polysaccharide Iron Complex (Ferrex 150) 150 mg PO DAILY [facility] Last Admin: 07/20/18 09:56 Dose: 150 mg Potassium Chloride (K-Dur) 40 meq PO DAILYCM [facility] Last Admin: 07/20/18 09:56 Dose: 40 meq Sodium Chloride () 5 - 15 ml IV UD PRN PRN Reason: SALINE FLUSH Last Admin: 07/19/18 23:00 Dose: 10 ml Tolterodine Tartrate (Detrol La) 2 mg PO DAILY [facility] Last Admin: 07/20/18 09:56 Dose: 2 mg Zolpidem Tartrate (Ambien (Generic)) 5 mg PO QHS PRN PRN PRN Reason: INSOMNIA Clinical Impression(s) from Imaging Studies Brain CT 07/18/18 18:10 IMPRESSION: 1. No acute findings. 2. Microvascular ischemia. Atrophy. Dr. Machado discussed the findings with Dr. Conrad at 6:35 PM. N.B. : The above information has been verbally conveyed by Martha Machado MD to Dr. Jose Conrad MD, on 07/18/2018 18:39:31 (ET). Electronically Signed: Martha Machado MD at 18:37 EST Tel , Service support , Chest X-Ray 07/18/18 18:37 IMPRESSION: Low volume inspiration with cardiomegaly and atelectasis. No acute abnormality. Electronically Signed: Balwinder Bermudez MD at 19:25 EST , Service support , Brain MRI 07/20/18 08:29 IMPRESSION: No evidence of infarct or hemorrhage. Microangiopathic changes as described. Electronically Signed: Lawrence Toledo MD at 10:03 EST Tel , Service support , Code Visit Inpatient E&M: 92451 Subs Hosp L3
--- NOTE | 2018-07-20 11:01 | PN_ITS ---
Patient Problems: Active and Suspected Problems (Last Updated 07/19/18 @ 08:25 by Ras Patterson MD) Sepsis (Acute) Acute cystitis (Acute) Decubitus ulcer (Acute) Subjective: Patient is a 67-year-old lady with multiple comorbidities including chronic decubitus ulcer involving the coccyx admitted with right-sided weakness and left facial droop. Patient was also found to have sepsis secondary to acute cystitis Objective: GENERAL: cooperative HEENT: Atraumatic; EYES; Anicteric, NECK; supple, normal thyroid, RESPIRATORY: Diminished to auscultation bilaterally, CARDIOVASCULAR: Regular S1 S2, GI: soft, non-tender, normoactive bowel sounds, : No Renal angle tenderness; EXTREMITIES: No edema, no clubbing, no cyanosis. MUSCULOSKELETAL: No Joint Tenderness; NEURO: Awake; no lateralizing signs. SKIN: nonhealing ulcer involving the right leg PSYCH; Normal affect Vitals/I&O's: Vital Signs Temp Pulse Resp BP Pulse Ox 98.8 F 77 16 129/85 H 95 07/20/18 09:45 07/20/18 09:45 07/20/18 09:45 07/20/18 09:45 07/20/18 09:45 Oxygen Flow Rate (L/min) 3 Oxygen Delivery Method Nasal Cannula Weight: 84.4 kg Body Mass Index (BMI) 31.9 Finger Stick Blood Glucose 148 Intake and Output for Last 24 Hours 07/18/18 07/19/18 07/20/18 23:59 23:59 23:59 Intake Total 0 / 0 1429.4 / 1429.4 0 / 0 Output Total 0 / 0 1075 / 1075 280 / 280 Balance 0 / 0 354.4 / 354.4 -280 / -280 Microbiology Past 72 Hours 07/19/18 12:35 Stool C. difficile DNA Amplification - Final Laboratory Results 07/18/18 18:11: POC Glucose 142 H 07/19/18 11:55: POC Glucose 123 H 07/19/18 16:18: POC Glucose 157 H 07/19/18 21:01: POC Glucose 169 H 07/20/18 04:56: WBC 8.9, RBC 3.56 L, Hgb 10.8 L, Hct 34.6 L, MCV 97.2, MCH 30.3, MCHC 31.2 L, RDW 17.4 H, RDW Differential 61.4 H, Plt Count 114 L, MPV 11.8, Immature Gran % (Auto) 0.300, Neut % (Auto) 78.2 H, Lymph % (Auto) 12.9 L, [place] % (Auto) 7.9, Eos % (Auto) 0.6, Baso % (Auto) 0.1, Absolute Neuts (auto) 6.9, Absolute Lymphs (auto) 1.14, Total Counted Not Reportable 07/20/18 04:56: Sodium 146 H, Potassium 4.1, Chloride 113 H, Carbon Dioxide 25.0, Anion Gap 8, BUN 23 H, Creatinine 0.62, Estim Creat Clear Calc 45.85, Est GFR (MDRD) Af Amer 124, Est GFR (MDRD) Non-Af 102, BUN/Creatinine Ratio 37.4 H, Glucose 97, Calcium 7.2 L 07/20/18 06:56: POC Glucose 112 H Current Medications Acetaminophen (Tylenol) 650 mg PO Q6H PRN PRN PRN Reason: Pain/Fever>100.4 Last Admin: 07/20/18 05:30 Dose: 650 mg Aspirin (Aspirin, Baby) 81 mg PO DAILY@0800 [facility] Last Admin: 07/20/18 09:51 Dose: 81 mg Atorvastatin Calcium (Lipitor) 80 mg PO QHS [facility] Last Admin: 07/19/18 21:13 Dose: 80 mg Calamine/Phenol (Calmoseptine Ointment) 1 applic TOPICAL BID [facility]; Protocol Last Admin: 07/20/18 09:51 Dose: 1 applicatio Cholecalciferol (Vitamin D) 1,000 unit PO DAILY [facility] Last Admin: 07/20/18 09:57 Dose: 1,000 unit Escitalopram Oxalate (Lexapro) 10 mg PO DAILY [facility] Last Admin: 07/20/18 09:57 Dose: 10 mg Furosemide (Lasix) 20 mg PO DAILY [facility] Last Admin: 07/20/18 09:57 Dose: 20 mg Gabapentin (Neurontin) 600 mg PO QHS [facility] Last Admin: 07/19/18 21:13 Dose: 600 mg Heparin Sodium (Porcine) (Heparin Na) 5,000 unit SC Q8 [facility] Last Admin: 07/20/18 05:31 Dose: 5,000 unit Ceftriaxone Sodium (Rocephin) 1 gm in 50 mls @ 100 mls/hr IV Q24@2200 [facility] Last Admin: 07/19/18 21:11 Dose: 100 mls/hr Sodium Chloride () 250 mls @ 15 mls/hr IV .[id number] PRN PRN Reason: SALINE FLUSH Loperamide HCl (Imodium) 2 mg PO Q4H PRN PRN PRN Reason: DIARRHEA/LOOSE STOOLS Last Admin: 07/19/18 16:15 Dose: 2 mg Magnesium Hydroxide (Milk Of Magnesia) 30 ml PO DAILY PRN PRN Reason: Constipation Montelukast Sodium (Singulair) 10 mg PO DAILY [facility] Last Admin: 07/20/18 09:57 Dose: 10 mg Multivitamins/Minerals ([facility]amin [facility] Minerals) [facility] Last Admin: 07/20/18 09:56 Dose: 1 tablet Nutritional Formula (Lactose Free) (Glucerna Shake) 120 ml PO 4X/DAY [facility] Last Admin: 07/20/18 09:57 Dose: Not Given Ondansetron HCl (Zofran) 4 mg IV Q8H PRN PRN PRN Reason: NAUSEA Pantoprazole Sodium (Protonix) 40 mg PO DAILY [facility] Last Admin: 07/20/18 09:57 Dose: 40 mg Pilocarpine HCl (Salagen) 5 mg PO TID [facility] Last Admin: 07/20/18 05:28 Dose: 5 mg Polysaccharide Iron Complex (Ferrex 150) 150 mg PO DAILY [facility] Last Admin: 07/20/18 09:56 Dose: 150 mg Potassium Chloride (K-Dur) [facility] Last Admin: 07/20/18 09:56 Dose: 40 meq Sodium Chloride () 5 - 15 ml IV UD PRN PRN Reason: SALINE FLUSH Last Admin: 07/19/18 23:00 Dose: 10 ml Tolterodine Tartrate (Detrol La) 2 mg PO DAILY [facility] Last Admin: 07/20/18 09:56 Dose: 2 mg Zolpidem Tartrate (Ambien (Generic)) 5 mg PO QHS PRN PRN PRN Reason: INSOMNIA Medical Necessity - Tobacco Use Smoking Status: Former smoker Tobacco Use: Cigarettes Assessment/Plan All Active Problems (Last Updated 07/19/18 @ 08:25 by Ras Patterson MD) Sepsis (Acute) Acute cystitis (Acute) Decubitus ulcer (Acute) Patient is a 67-year-old lady with multiple comorbidities including chronic decubitus ulcer involving the coccyx admitted with right-sided weakness and left facial droop. Patient was also found to have sepsis secondary to acute cystitis 1. Transient ischemic attack acute CVA was ruled out with imaging studies with MRI 2. Sepsis secondary to acute cystitis patient was started on-cultures sent 3. Decubitus ulcer involving the coccyx consult was placed to wound care nurse 4. Chronic nonhealing ulcer involving the right leg patient requested consultation with Dr. Sharma with podiatry consult placed 5. Diabetes mellitus type 2 did continue with home regimen in addition to Accu- Cheks before meals and at bedtime with sliding scale coverage 6. Dyslipidemia-patient is on statin therapy, continued at home dose 7. Obesity with BMI of 31.9 8. Peripheral vascular disease 9. GERD on PPI 10. Diabetic neuropathy patient is on gabapentin 11. Depression patient is on SSRI 12. DVT prophylaxis SC heparin 13. Physical deconditioning requested for PT OT and criminal justice social worker to assist with discharge planning possibly to longterm facility Active Medications Acetaminophen (Tylenol) 650 mg PO Q6H PRN PRN PRN Reason: Pain/Fever>100.4 Last Admin: 07/20/18 05:30 Dose: 650 mg Aspirin (Aspirin, Baby) 81 mg PO DAILY@0800 [facility] Last Admin: 07/20/18 09:51 Dose: 81 mg Atorvastatin Calcium (Lipitor) 80 mg PO QHS [facility] Last Admin: 07/19/18 21:13 Dose: 80 mg Calamine/Phenol (Calmoseptine Ointment) 1 applic TOPICAL BID [facility]; Protocol Last Admin: 07/20/18 09:51 Dose: 1 applicatio Cholecalciferol (Vitamin D) 1,000 unit PO DAILY [facility] Last Admin: 07/20/18 09:57 Dose: 1,000 unit Escitalopram Oxalate (Lexapro) 10 mg PO DAILY [facility] Last Admin: 07/20/18 09:57 Dose: 10 mg Furosemide (Lasix) 20 mg PO DAILY [facility] Last Admin: 07/20/18 09:57 Dose: 20 mg Gabapentin (Neurontin) 600 mg PO QHS [facility] Last Admin: 07/19/18 21:13 Dose: 600 mg Heparin Sodium (Porcine) (Heparin Na) 5,000 unit SC Q8 [facility] Last Admin: 07/20/18 13:33 Dose: 5,000 unit Ceftriaxone Sodium (Rocephin) 1 gm in 50 mls @ 100 mls/hr IV Q24@2200 [facility] Last Admin: 07/19/18 21:11 Dose: 100 mls/hr Sodium Chloride () 250 mls @ 15 mls/hr IV .[id number] PRN PRN Reason: SALINE FLUSH Loperamide HCl (Imodium) 2 mg PO Q4H PRN PRN PRN Reason: DIARRHEA/LOOSE STOOLS Last Admin: 07/19/18 16:15 Dose: 2 mg Magnesium Hydroxide (Milk Of Magnesia) 30 ml PO DAILY PRN PRN Reason: Constipation Montelukast Sodium (Singulair) 10 mg PO DAILY [facility] Last Admin: 07/20/18 09:57 Dose: 10 mg Multivitamins/Minerals (Multivitamin With Minerals) 1 tablet PO DAILYCM [facility] Last Admin: 07/20/18 09:56 Dose: 1 tablet Ondansetron HCl (Zofran) 4 mg IV Q8H PRN PRN PRN Reason: NAUSEA Pantoprazole Sodium (Protonix) 40 mg PO DAILY [facility] Last Admin: 07/20/18 09:57 Dose: 40 mg Pilocarpine HCl (Salagen) 5 mg PO TID [facility] Last Admin: 07/20/18 13:33 Dose: 5 mg Polysaccharide Iron Complex (Ferrex 150) 150 mg PO DAILY [facility] Last Admin: 07/20/18 09:56 Dose: 150 mg Potassium Chloride (K-Dur) 40 meq PO DAILYCM [facility] Last Admin: 07/20/18 09:56 Dose: 40 meq Sodium Chloride () 5 - 15 ml IV UD PRN PRN Reason: SALINE FLUSH Last Admin: 07/19/18 23:00 Dose: 10 ml Tolterodine Tartrate (Detrol La) 2 mg PO DAILY [facility] Last Admin: 07/20/18 09:56 Dose: 2 mg Zolpidem Tartrate (Ambien (Generic)) 5 mg PO QHS PRN PRN PRN Reason: INSOMNIA Clinical Impression(s) from Imaging Studies Brain CT 07/18/18 18:10 IMPRESSION: 1. No acute findings. 2. Microvascular ischemia. Atrophy. Dr. Machado discussed the findings with Dr. Conrad at 6:35 PM. N.B. : The above information has been verbally conveyed by Martha Machado MD to Dr. Jose Conrad MD, on 07/18/2018 18:39:31 (ET). Electronically Signed: Martha Machado MD at 18:37 EST Tel , Service support , Chest X-Ray 07/18/18 18:37 IMPRESSION: Low volume inspiration with cardiomegaly and atelectasis. No acute abnormality. Electronically Signed: Balwinder Bermudez MD at 19:25 EST , Service support , Brain MRI 07/20/18 08:29 IMPRESSION: No evidence of infarct or hemorrhage. Microangiopathic changes as described. Electronically Signed: Lawrence Toledo MD at 10:03 EST Tel , Service support , Code Visit Inpatient E&M: 34888 Subs Hosp L3
[2018-07-20 11:31] LABS: Bedside Glucose 130 mg/dL (70-110)
--- NOTE | 2018-07-20 14:03 | CASEMGMT ---
Physician said patient will need placement. RN NUZHAT spoke with patient and she said she wants to go to the same facility as her sister who is also currently a patient at [facility]. KEVIN spoke with KEVIN that is working with patient's sister and a referral was made to [facility]. KEVIN spoke with Karli at [facility] and she said clinically they can take patient's sister they are just waiting to make sure they take her insurance. KEVIN told her SW will fax a referral for this patient. However, if they cannot take take her sister patient will likely change her mind. SW faxed referral to [facility]. Pratima STEWARD [employer]PERATIONS SPECIALIST
--- NOTE | 2018-07-20 14:32 | PCM.CONS.GEN ---
Reason for Consult Date of Consultation: 07/20/18 Reason for Consultation: Right lower extremity ulceration History of Present Illness: The patient is a 67 year old female who has right lower extremity ulceration was seen today per consult request by the medicine team. Patient was admitted for right-sided weakness and left facial droop. Patient was also found to have sepsis secondary to acute cystitis. Patient follows with Dr. Sharma at the wound center, and was scheduled to have dressing changed this week, but not able to go as she is in the hospital. She has an unna boot on. She relates the ulcer is healing. She has no new foot/ankle or leg complaints. Past Medical History Past Medical History (Chronic Problems): Chronic Problems (Last Updated 07/19/18 @ 08:25 by Ras Patterson MD) Ulcer of right lower extremity with fat layer exposed (Chronic) Type 2 diabetes mellitus without complications (Chronic) PVD (peripheral vascular disease) (Chronic) Lower extremity edema (Chronic) Delayed wound healing (Chronic) Neuropathic pain (Chronic) Asthma (Chronic) Other secondary pulmonary hypertension (Chronic) Murmur, cardiac (Chronic) Medical History: Medical History (Last Updated 07/19/18 @ 08:25 by Ras Patterson MD) Other secondary pulmonary hypertension (Chronic) I27.29 Anemia D64.9 Depression F32.9 GERD (gastroesophageal reflux disease) K21.9 CHIDI (obstructive sleep apnea) G47.33 Type 2 diabetes mellitus E11.9 Hyperlipidemia E78.5 Hypertension I10 Nonrheumatic aortic (valve) stenosis I35.0 Nonrheumatic mitral (valve) stenosis I34.2 Diabetes (Inactive) E11.9 GERD (gastroesophageal reflux disease) (Inactive) K21.9 Hyperlipidemia (Inactive) E78.5 Mitral stenosis (Inactive) I05.0 Allergies lisinopril Adverse Reaction (Intermediate, Verified 04/03/18 12:36) Unknown penicillin G Adverse Reaction (Intermediate, Verified 04/03/18 12:36) Unknown exenatide [From [place]] Adverse Reaction (Unknown, Verified 04/03/18 12:36) Unknown Home Medications: Ambulatory Orders Medication Instructions Recorded RX: Aspirin [Aspirin, Baby] 81 mg PO DAILY@0800 03/24/15 RX: Escitalopram Oxalate [Lexapro] 10 mg PO DAILY 03/24/15 RX: Lisinopril [Zestril] 5 mg PO DAILY 03/24/15 RX: Montelukast [Singulair] 10 mg PO DAILY 03/24/15 RX: Multivitamins,Ther W-Minerals 1 tab PO DAILY 03/24/15 [Multivitamin With Minerals] RX: Omeprazole [Prilosec] 40 mg PO DAILY 03/24/15 RX: Pravastatin [Pravachol] 20 mg PO QHS 03/24/15 RX: Cholecalciferol (VIT D3) 1,000 unit PO DAILY 11/22/16 [Vitamin D3] traMADol [Ultram (G)] 50 mg PO Q4H PRN PRN 10/09/17 gabapentin 300 mg capsule 600 mg PO QHS cap 10/20/17 polysaccharide iron complex 150 mg 150 mg PO QDAY cap 10/20/17 iron capsule furosemide 20 mg tablet 20 mg PO QDAY #30 tab 11/11/17 Oxybutynin Chloride [Ditropan Xl] 10 mg PO DAILY 03/30/18 Pilocarpine HCl 5 mg TID 07/19/18 Surgical History: Surgical History (Last Updated 07/19/18 @ 08:25 by Ras Patterson MD) History of cholecystectomy Z98.890, Z90.49 History of total left knee replacement Z96.652 Surgical History: no surgical history Lives: With Family Smoking Status: Former smoker Tobacco Use: Cigarettes - *Family History Maternal Family History: Family History (Last Reviewed 07/19/18 @ 06:56 by Britton Bryan MD) Sister CAD (coronary artery disease) Hx of CABG History Items: No pertinent history Paternal Family History: Family History (Last Reviewed 07/19/18 @ 06:56 by Britton Bryan MD) Sister CAD (coronary artery disease) Hx of CABG History Items: No pertinent history Review of Systems Constitutional: Denies: Chills, Fever Gastrointestinal: Denies: Nausea, Vomiting Skin: Reports: Wounds Patient Problems: Active and Suspected Problems (Last Updated 07/19/18 @ 08:25 by Ras Patterson MD) Sepsis (Acute) Acute cystitis (Acute) Decubitus ulcer (Acute) - Physical Exam General: Alert, Oriented x3, Cooperative, No apparent distress Extremities: No cyanosis, Capillary Refill Less than 3 Seconds, No Calf Tenderness, Peripheral Pulses Normal, - - Right leg with ulceration x 2 - first one measures 3.5cm x 2.4cm and 0.1cm in depth and the other is 1cm x 0.4cm and 0.1cm in depth - both down to the subcutaneous tissue layer, granular base and viable margins with no undermining, no evidence of infection, appears to be healing well. No open ulcers to the left lower extremity. There is no maloder, no necrosis, no fluctuance, no crepitus, no visible abscess bilateral lower extremity. Temperature is normal bilateral lower extremity, CFT < 2 seconds to all toes, and pedal pulses intact bilateral. Muscle strength decreased to the lower extremity, sensation intact. Chronic veneous insufficiency bilateral lower extremity, no calf pain bilateral lower extremity or evidence of DVT. Psych/Mental Status: Normal Affect, Appropriate, Alert and oriented to time, place, person, mood and affect Vital Signs Temp Pulse Resp BP Pulse Ox 98.8 F 79 16 129/85 H 95 07/20/18 09:45 07/20/18 11:00 07/20/18 09:45 07/20/18 09:45 07/20/18 09:45 Oxygen Flow Rate (L/min) 3 Oxygen Delivery Method Room Air Weight: 84.4 kg Body Mass Index (BMI) 31.9 Finger Stick Blood Glucose 148 Intake and Output for Last 24 Hours 07/18/18 07/19/18 07/20/18 23:59 23:59 23:59 Intake Total 0 / 0 1429.4 / 1429.4 350 / 350 Output Total 0 / 0 1075 / 1075 680 / 680 Balance 0 / 0 354.4 / 354.4 -330 / -330 Microbiology Past 72 Hours 07/19/18 12:35 Urine Culture - Preliminary Urine, Catheterized Presumptive E. coli Gram positive organism 07/19/18 12:35 C. difficile DNA Amplification - Final Stool Laboratory Tests Past 24 Hrs 07/20/18 07/20/18 04:56 04:56 WBC 8.9 RBC 3.56 L Hgb 10.8 L Hct 34.6 L MCV 97.2 MCH 30.3 MCHC 31.2 L RDW 17.4 H RDW Differential 61.4 H Plt Count 114 L MPV 11.8 Immature Gran % (Auto) 0.300 Neut % (Auto) 78.2 H Lymph % (Auto) 12.9 L [place] % (Auto) 7.9 Eos % (Auto) 0.6 Baso % (Auto) 0.1 Absolute Neuts (auto) 6.9 Absolute Lymphs (auto) 1.14 Total Counted Not Reportable Sodium 146 H Potassium 4.1 Chloride 113 H Carbon Dioxide 25.0 Anion Gap 8 BUN 23 H Creatinine 0.62 Estim Creat Clear Calc 45.85 Est GFR (MDRD) Af Amer 124 Est GFR (MDRD) Non-Af 102 BUN/Creatinine Ratio 37.4 H Glucose 97 Calcium 7.2 L POC Glucose 07/20/18 07/20/18 07/19/18 11:22 06:56 21:01 POC Glucose 130 H 112 H 169 H 07/19/18 16:18 POC Glucose 157 H Assessment/Plan All Active Problems (Last Updated 07/19/18 @ 08:25 by Ras Patterson MD) Sepsis (Acute) Acute cystitis (Acute) Decubitus ulcer (Acute) Venous insufficiency with right lower extremity ulcerations w/ no evidence of infection - healing Reviewed findings, ulcerations are healthy and viable with no evidence of infection right leg. Continue with local wound care - cleanse with normal saline solution, apply unna boot with overlying coban dressing - change weekly. Keep dressing clean, dry and intact until next dressing change. The dressing was changed today by the wound care team. Tubigrip compression stocking the left lower extremity. Elevate feet as much as possible. Continue to follow up with Dr. Sharma in the wound center next week, sooner if needed. Please call podiatry with any questions and/or concerns. Thank you for consultation.
--- NOTE | 2018-07-20 15:17 | CASEMGMT ---
Received call from Karli at [facility] and they can accept patient. KEVIN spoke with patient letting her know that both she and her sister will be going to [facility]. She thanked for the update. Plan: [facility] pending patient being medically ready. Pratima STEWARD MSW
[2018-07-20] MEDS: 0.9% NaCl Peripheral Flush Adult/Peds IV (21:14)
[2018-07-20] MEDS: Ceftriaxone 1 GM/50 ML BAG IV (21:15)
[2018-07-20] MEDS: Gabapentin 600 MG Tablet PO (21:15)
[2018-07-20] MEDS: Atorvastatin Calcium 80 MG Tablet PO (21:15)
[2018-07-21] VITALS (7 sets, daily range): BP systolic 140–152; BP diastolic 70–76; PULSE 76–96; RESP 17–18; TEMP 36.7–37.1; O2SAT 92–94
[2018-07-21] MEDS: Heparin Injection (Vial) 5,000 UNIT/ML VIAL 5000 UNIT SC (05:22)
[2018-07-21] MEDS: Pilocarpine HCl 5 MG Tablet PO (05:23)
[2018-07-21 05:38] LABS: Hematocrit 34.1 % (37-47); Hemoglobin 10.7 g/dl (12.0-15.0); Mean Corp Hgb Conc 31.4 g/gl (32-36); Mean Corpuscular Hgb 30.6 pg (27.0-32.0); Mean Corpuscular Volume 97.4 fL (81-99); Mean Platelet Vol. 11.7 fl (6.2-12.0); Platelet Count 115 K/mm3 (150-450); RBC Distribution Width CV 16.9 % (11.6-14.6); RBC Distribution Width SD 57.3 fl (35.1-43.9); White Blood Count 6.6 K/mm3 (4.4-11.0)
[2018-07-21 05:43] LABS: Anion Gap 6 (5-15); BUN 16 mg/dL (7-18); BUN/Creat Ratio 31.6 RATIO (10-20); Calcium,Total 7.1 mg/dL (8.5-10.1); Chloride 107 mmol/L (98-107); Creatinine, Serum 0.51 mg/dL (0.55-1.02); EST Glomerular Filtration Rate 128 mL/min (>60); Est Glom Filt Rate - Afr Amer 155 mL/min (>60); Estimated Creatinine Clearance 45.85 ml/min; Glucose 100 mg/dL (74-106); Magnesium 1.6 mg/dL (1.6-2.6); Sodium Level 146 mmol/L (136-145)
[2018-07-21 05:55] LABS: Scan Indicated on CBC? Y/N NO
--- NOTE | 2018-07-21 07:45 | PN_ITS ---
Patient Problems: Active and Suspected Problems (Last Updated 07/19/18 @ 08:25 by Ras Patterson MD) Sepsis (Acute) Acute cystitis (Acute) Decubitus ulcer (Acute) Subjective: Urine cultures came back positive for E. coli. Patient did agree to be transferred to [place] Objective: GENERAL: cooperative HEENT: Atraumatic; EYES; Anicteric, NECK; supple, normal thyroid, RESPIRATORY: Diminished to auscultation bilaterally, CARDIOVASCULAR: Regular S1 S2, GI: soft, non-tender, normoactive bowel sounds, : No Renal angle tenderness; EXTREMITIES: No edema, no clubbing, no cyanosis. MUSCULOSKELETAL: No Joint Tenderness; NEURO: Awake; no lateralizing signs. SKIN: nonhealing ulcer involving the right leg PSYCH; Normal affect Vitals/I&O's: Vital Signs Temp Pulse Resp BP Pulse Ox 98.1 F 87 18 152/76 H 92 07/21/18 02:59 07/21/18 07:07 07/21/18 02:59 07/21/18 02:59 07/21/18 02:59 Oxygen Flow Rate (L/min) 2 Oxygen Delivery Method Nasal Cannula Weight: 84.4 kg Body Mass Index (BMI) 31.9 Finger Stick Blood Glucose 148 Intake and Output for Last 24 Hours 07/19/18 07/20/18 07/21/18 23:59 23:59 23:59 Intake Total 1429.4 / 1429.4 985 / 985 120 / 120 Output Total 1075 / 1075 2180 / 2180 700 / 700 Balance 354.4 / 354.4 -1195 / -1195 -580 / -580 Microbiology Past 72 Hours 07/18/18 20:00 Blood Culture (Wb) - Anticubital Right Blood Culture - Preliminary No growth in 48 hours. 07/18/18 19:45 Blood Culture (Wb) - Anticubital Right Blood Culture - Preliminary No growth in 48 hours. 07/19/18 12:35 Urine, Catheterized Urine Culture - Preliminary Presumptive E. coli Gram positive organism 07/19/18 12:35 Stool C. difficile DNA Amplification - Final Laboratory Results 07/20/18 11:22: POC Glucose 130 H 07/21/18 05:05: WBC 6.6, RBC 3.50 L, Hgb 10.7 L, Hct 34.1 L, MCV 97.4, MCH 30.6, MCHC 31.4 L, RDW 16.9 H, RDW Differential 57.3 H, Plt Count 115 L, MPV 11.7 07/21/18 05:05: Sodium 146 H, Potassium 4.0, Chloride 107, Carbon Dioxide 33.0 H , Anion Gap 6, BUN 16, Creatinine 0.51 L, Estim Creat Clear Calc 45.85, Est GFR (MDRD) Af Amer 155, Est GFR (MDRD) Non-Af 128, BUN/Creatinine Ratio 31.6 H, Gluc ose 100, Calcium 7.1 L, Magnesium 1.6 Current Medications Acetaminophen (Tylenol) 650 mg PO Q6H PRN PRN PRN Reason: Pain/Fever>100.4 Last Admin: 07/20/18 05:30 Dose: 650 mg Aspirin (Aspirin, Baby) 81 mg PO DAILY@0800 [facility] Last Admin: 07/20/18 09:51 Dose: 81 mg Atorvastatin Calcium (Lipitor) 80 mg PO QHS [facility] Last Admin: 07/20/18 21:15 Dose: 80 mg Calamine/Phenol (Calmoseptine Ointment) 1 applic TOPICAL BID [facility]; Protocol Last Admin: 07/20/18 21:21 Dose: 1 applicatio Cholecalciferol (Vitamin D) 1,000 unit PO DAILY [facility] Last Admin: 07/20/18 09:57 Dose: 1,000 unit Escitalopram Oxalate (Lexapro) 10 mg PO DAILY [facility] Last Admin: 07/20/18 09:57 Dose: 10 mg Furosemide (Lasix) 20 mg PO DAILY [facility] Last Admin: 07/20/18 09:57 Dose: 20 mg Gabapentin (Neurontin) 600 mg PO QHS [facility] Last Admin: 07/20/18 21:15 Dose: 600 mg Heparin Sodium (Porcine) (Heparin Na) 5,000 unit SC Q8 [facility] Last Admin: 07/21/18 05:22 Dose: 5,000 unit Ceftriaxone Sodium (Rocephin) 1 gm in 50 mls @ 100 mls/hr IV Q24@2200 [facility] Last Admin: 07/20/18 21:15 Dose: 100 mls/hr Sodium Chloride () 250 mls @ 15 mls/hr IV .[id number] PRN PRN Reason: SALINE FLUSH Loperamide HCl (Imodium) 2 mg PO Q4H PRN PRN PRN Reason: DIARRHEA/LOOSE STOOLS Last Admin: 07/19/18 16:15 Dose: 2 mg Magnesium Hydroxide (Milk Of Magnesia) 30 ml PO DAILY PRN PRN Reason: Constipation Montelukast Sodium (Singulair) 10 mg PO DAILY [facility] Last Admin: 07/20/18 09:57 Dose: 10 mg [facility]ivitamins/Minerals [facility] Admin: 07/20/18 09:56 Dose: 1 tablet Ondansetron HCl (Zofran) 4 mg IV Q8H PRN PRN PRN Reason: NAUSEA Pantoprazole Sodium (Protonix) 40 mg PO DAILY [facility] Last Admin: 07/20/18 09:57 Dose: 40 mg Pilocarpine HCl (Salagen) 5 mg PO TID [facility] Last Admin: 07/21/18 05:23 Dose: 5 mg Polysaccharide Iron Complex (Ferrex 150) 150 mg PO DAILY [facility] Last Admin: 07/20/18 09:56 Dose: 150 mg Potassium Chloride (K-Dur) [facility] Last Admin: 07/20/18 09:56 Dose: 40 meq Sodium Chloride () 5 - 15 ml IV UD PRN PRN Reason: SALINE FLUSH Last Admin: 07/20/18 21:14 Dose: 10 ml Tolterodine Tartrate (Detrol La) 2 mg PO DAILY [facility] Last Admin: 07/20/18 09:56 Dose: 2 mg Zolpidem Tartrate (Ambien (Generic)) 5 mg PO QHS PRN PRN PRN Reason: INSOMNIA Medical Necessity - Tobacco Use Smoking Status: Former smoker Tobacco Use: Cigarettes Assessment/Plan All Active Problems (Last Updated 07/19/18 @ 08:25 by Ras Patterson MD) Sepsis (Acute) Acute cystitis (Acute) Decubitus ulcer (Acute) Patient is a 67-year-old lady with multiple comorbidities including chronic decubitus ulcer involving the coccyx admitted with right-sided weakness and left facial droop. Patient was also found to have sepsis secondary to acute cystitis 1. Transient ischemic attack acute CVA was ruled out with imaging studies with MRI 2. Sepsis secondary to acute cystitis patient was started on-cultures sent 3. Decubitus ulcer involving the coccyx consult was placed to wound care nurse 4. Chronic nonhealing ulcer involving the right leg patient requested consultation with Dr. Sharma with podiatry consult placed 5. Diabetes mellitus type 2 did continue with home regimen in addition to Accu- Cheks before meals and at bedtime with sliding scale coverage 6. Dyslipidemia-patient is on statin therapy, continued at home dose 7. Obesity with BMI of 31.9 8. Peripheral vascular disease 9. GERD on PPI 10. Diabetic neuropathy patient is on gabapentin 11. Depression patient is on SSRI 12. DVT prophylaxis SC heparin 13. Physical deconditioning requested for PT OT and social media analyst to assist with discharge planning possibly to [place] [facility] Active Medications Acetaminophen (Tylenol) 650 mg PO Q6H PRN PRN PRN Reason: Pain/Fever>100.4 Last Admin: 07/20/18 05:30 Dose: 650 mg Aspirin (Aspirin, Baby) 81 mg PO DAILY@0800 [facility] Last Admin: 07/20/18 09:51 Dose: 81 mg Atorvastatin Calcium (Lipitor) 80 mg PO QHS [facility] Last Admin: 07/19/18 21:13 Dose: 80 mg Calamine/Phenol (Calmoseptine Ointment) 1 applic TOPICAL BID [facility]; Protocol Last Admin: 07/20/18 09:51 Dose: 1 applicatio Cholecalciferol (Vitamin D) 1,000 unit PO DAILY [facility] Last Admin: 07/20/18 09:57 Dose: 1,000 unit Escitalopram Oxalate (Lexapro) 10 mg PO DAILY [facility] Last Admin: 07/20/18 09:57 Dose: 10 mg Furosemide (Lasix) 20 mg PO DAILY [facility] Last Admin: 07/20/18 09:57 Dose: 20 mg Gabapentin (Neurontin) 600 mg PO QHS [facility] Last Admin: 07/19/18 21:13 Dose: 600 mg Heparin Sodium (Porcine) (Heparin Na) 5,000 unit SC Q8 [facility] Last Admin: 07/20/18 13:33 Dose: 5,000 unit Ceftriaxone Sodium (Rocephin) 1 gm in 50 mls @ 100 mls/hr IV Q24@2200 [facility] Last Admin: 07/19/18 21:11 Dose: 100 mls/hr Sodium Chloride () 250 mls @ 15 mls/hr IV .[id number] PRN PRN Reason: SALINE FLUSH Loperamide HCl (Imodium) 2 mg PO Q4H PRN PRN PRN Reason: DIARRHEA/LOOSE STOOLS Last Admin: 07/19/18 16:15 Dose: 2 mg Magnesium Hydroxide (Milk Of Magnesia) 30 ml PO DAILY PRN PRN Reason: Constipation Montelukast Sodium (Singulair) 10 mg PO DAILY [facility] Last Admin: 07/20/18 09:57 Dose: 10 mg Multivitamins/Minerals ([facility]itamin With Minerals) [facility] Last Admin: 07/20/18 09:56 Dose: 1 tablet Ondansetron HCl (Zofran) 4 mg IV Q8H PRN PRN PRN Reason: NAUSEA Pantoprazole Sodium (Protonix) 40 mg PO DAILY [facility] Last Admin: 07/20/18 09:57 Dose: 40 mg Pilocarpine HCl (Salagen) 5 mg PO TID [facility] Last Admin: 07/20/18 13:33 Dose: 5 mg Polysaccharide Iron Complex (Ferrex 150) 150 mg PO DAILY [facility] Last Admin: 07/20/18 09:56 Dose: 150 mg Potassium Chloride (K-Dur) [facility] Last Admin: 07/20/18 09:56 Dose: 40 meq Sodium Chloride () 5 - 15 ml IV UD PRN PRN Reason: SALINE FLUSH Last Admin: 07/19/18 23:00 Dose: 10 ml Tolterodine Tartrate (Detrol La) 2 mg PO DAILY [facility] Last Admin: 07/20/18 09:56 Dose: 2 mg Zolpidem Tartrate (Ambien (Generic)) 5 mg PO QHS PRN PRN PRN Reason: INSOMNIA Clinical Impression(s) from Imaging Studies Brain CT 07/18/18 18:10 IMPRESSION: 1. No acute findings. 2. Microvascular ischemia. Atrophy. Dr. Machado discussed the findings with Dr. Conrad at 6:35 PM. N.B. : The above information has been verbally conveyed by Martha Machado MD to Dr. Jose Conrad MD, on 07/18/2018 18:39:31 (ET). Electronically Signed: Martha Machado MD at 18:37 EST Tel , Service support , Chest X-Ray 07/18/18 18:37 IMPRESSION: Low volume inspiration with cardiomegaly and atelectasis. No acute abnormality. Electronically Signed: Balwinder Bermudez MD at 19:25 EST , Service support , Brain MRI 07/20/18 08:29 IMPRESSION: No evidence of infarct or hemorrhage. Microangiopathic changes as described. Electronically Signed: Lawrence Toledo MD at 10:03 EST Tel , Service support , Code Visit Inpatient E&M: 93301 Subs Hosp L2
[2018-07-21] MEDS: Aspirin 81 MG TAB.CHEW PO (08:39)
[2018-07-21] MEDS: Multivitamins,Ther W-Minerals Tablet 1 TABLET PO (08:41)
[2018-07-21] MEDS: Menthol/Lanolin/Calamine/Znox 113 GM Tube 1 APPLIC TOPICAL (08:41)
[2018-07-21] MEDS: Furosemide 20 MG Tablet PO (08:42)
[2018-07-21] MEDS: Tolterodine Tartrate 2 MG CAP.SA PO (08:42)
[2018-07-21] MEDS: Iron Polysaccharide Complex 150 MG CAPSULE PO (08:42)
[2018-07-21] MEDS: Montelukast 10 MG Tablet PO (08:43)
[2018-07-21] MEDS: Escitalopram Oxalate 10 MG Tablet PO (08:43)
[2018-07-21] MEDS: Pantoprazole Sodium 40 MG Tablet PO (08:43)
--- NOTE | 2018-07-21 11:06 | PCM.TXEXTCAR ---
- Diet 07/19/18 01:08 Diet: Cardiac: Carb-Controlled Food consistency:: Regular Liquid Consistency:: Regular/Thin Is pt able to select menu?: Yes Diet Comments: Supervision; reduced bolus volumes, seated at 90 degrees - Routine Orders/Code Status Code Status: Full Code - Wound(s) Coccyx Wound Type: Pressure Injury Right Lateral Back Wound Type: Pressure Injury Right Forearm Wound Type: Puncture RLE Wound Type: Stasis Ulcer Dressing Change: unnaboot sacrum Wound Type: Pressure Injury Dressing Change: mepilex - Therapies Physical Therapy: Eval and Treat Occupational Therapy: Eval and Treat Speech Therapy: Eval and Treat - Allergies/Procedures Done in Hospital Allergies/Adverse Reactions: Allergies lisinopril Adverse Reaction (Intermediate, Verified 04/03/18 12:36) Unknown penicillin G Adverse Reaction (Intermediate, Verified 04/03/18 12:36) Unknown exenatide [From [place]] Adverse Reaction (Unknown, Verified 04/03/18 12:36) Unknown - Type of Care/Length of Stay Estimated LOS: Convalescent Care Less Than 30 days Type of Care Needed: Skilled Rehab Potential: Good Prognosis: Good - Additional Orders/Day of Discharge Day of Discharge: 07/21/18 - Dietary and Speech Recommendations Dietitian Recommendations/Changes: Rec addition of LEYLA to diet as ordered - Follow Up Care Primary Care Physician: Albert Jarvis Chi, MD [Primary Care Provider] -
--- NOTE | 2018-07-21 11:12 | PCM.DC.SUM ---
Discharge Date and Diagnosis - Problem List Patient Problems: Active and Suspected Problems (Last Updated 07/19/18 @ 08:25 by Ras Patterson MD) Sepsis (Acute) Acute cystitis (Acute) Decubitus ulcer (Acute) Date of Admission: 07/18/18 Date of Discharge: 07/21/18 - Primary Discharge Diagnosis Active and Suspected Problems (Last Updated 07/19/18 @ 08:25 by Ras Patterson MD) Sepsis (Acute) Acute cystitis (Acute) Decubitus ulcer (Acute) - Secondary Discharge Diagnosis Chronic Problems (Last Updated 07/19/18 @ 08:25 by Ras Patterson MD) Ulcer of right lower extremity with fat layer exposed (Chronic) Type 2 diabetes mellitus without complications (Chronic) PVD (peripheral vascular disease) (Chronic) Lower extremity edema (Chronic) Delayed wound healing (Chronic) Neuropathic pain (Chronic) Asthma (Chronic) Other secondary pulmonary hypertension (Chronic) Murmur, cardiac (Chronic) Hospital Course and Treatment Imaging Results: Clinical Impression(s) from Imaging Studies Brain CT 07/18/18 18:10 IMPRESSION: 1. No acute findings. 2. Microvascular ischemia. Atrophy. Dr. Machado discussed the findings with Dr. Conrad at 6:35 PM. N.B. : The above information has been verbally conveyed by Martha Machado MD to Dr. Jose Conrad MD, on 07/18/2018 18:39:31 (ET). Electronically Signed: Martha Machado MD at 18:37 EST Tel , Service support , Chest X-Ray 07/18/18 18:37 IMPRESSION: Low volume inspiration with cardiomegaly and atelectasis. No acute abnormality. Electronically Signed: Balwinder Bermudez MD at 19:25 EST , Service support , Brain MRI 07/20/18 08:29 IMPRESSION: No evidence of infarct or hemorrhage. Microangiopathic changes as described. Electronically Signed: Lawrence Toledo MD at 10:03 EST Tel , Service support , Microbiology 07/19/18 12:35 Urine, Catheterized Urine Culture - Final Presumptive E. coli GPC Poss Enterococcus sp 07/18/18 20:00 Blood Culture (Wb) - Anticubital Right Blood Culture - Preliminary No growth in 48 hours. 07/18/18 19:45 Blood Culture (Wb) - Anticubital Right Blood Culture - Preliminary No growth in 48 hours. 07/19/18 12:35 Stool C. difficile DNA Amplification - Final Consultations 07/18/18 22:56 Consult: Onc/Wound/foam charger Routine Comment: Reason for Consult:: Decubitus ulcer Operations: None Summary of Care Provided: Patient is a 67-year-old lady with multiple comorbidities including chronic decubitus ulcer involving the coccyx admitted with right-sided weakness and left facial droop. Patient was also found to have sepsis secondary to acute cystitis 1. Transient ischemic attack acute CVA was ruled out with imaging studies with MRI 2. Sepsis secondary to acute cystitis patient E. coli. Patient was initially managed with Rocephin discharged on ciprofloxacin 3. Decubitus ulcer involving the coccyx consult was placed to wound care nurse 4. Chronic nonhealing ulcer involving the right leg patient requested consultation with Dr. Sharma with podiatry consult placed 5. Diabetes mellitus type 2 did continue with home regimen in addition to Accu-Cheks before meals and at bedtime with sliding scale coverage 6. Dyslipidemia-patient is on statin therapy, continued at home dose 7. Obesity with BMI of 31.9 8. Peripheral vascular disease 9. GERD on PPI 10. Diabetic neuropathy patient is on gabapentin 11. Depression patient is on SSRI 12. Chronic diarrhea C. difficile was ruled out with a negative C. difficile assay. Patient was treated symptomatically with Imodium 13. Physical deconditioning requested for PT OT and social services designee to assist with discharge planning the patient was discharged to alf facility once insurance preset education was obtained 14. DVT prophylaxis SC heparin Patient Problems: Active and Suspected Problems (Last Updated 07/19/18 @ 08:25 by Ras Patterson MD) Sepsis (Acute) Acute cystitis (Acute) Decubitus ulcer (Acute) Subjective: GENERAL: cooperative HEENT: Atraumatic; EYES; Anicteric, NECK; supple, normal thyroid, RESPIRATORY: Diminished to auscultation bilaterally, CARDIOVASCULAR: Regular S1 S2, GI: soft, non-tender, normoactive bowel sounds, : No Renal angle tenderness; EXTREMITIES: No edema, no clubbing, no cyanosis. - Physical Exam Vital Signs Temp Pulse Resp BP Pulse Ox 98.8 F 96 17 140/70 H 94 07/21/18 08:25 07/21/18 08:25 07/21/18 08:25 07/21/18 08:25 07/21/18 08:35 Oxygen Flow Rate (L/min) 2 Oxygen Delivery Method Nasal Cannula Weight: 84.4 kg Body Mass Index (BMI) 31.9 Finger Stick Blood Glucose 148 Intake and Output for Last 24 Hours 07/19/18 07/20/18 07/21/18 23:59 23:59 23:59 Intake Total 1429.4 / 1429.4 985 / 985 120 / 120 Output Total 1075 / 1075 2180 / 2180 700 / 700 Balance 354.4 / 354.4 -1195 / -1195 -580 / -580 Microbiology Past 72 Hours 07/19/18 12:35 Urine Culture - Final Urine, Catheterized Presumptive E. coli GPC Poss Enterococcus sp 07/18/18 20:00 Blood Culture - Preliminary Blood Culture (Wb) - Anticubital Right No growth in 48 hours. 07/18/18 19:45 Blood Culture - Preliminary Blood Culture (Wb) - Anticubital Right No growth in 48 hours. 07/19/18 12:35 C. difficile DNA Amplification - Final Stool Laboratory Tests Past 24 Hrs 07/21/18 07/21/18 05:05 05:05 WBC 6.6 RBC 3.50 L Hgb 10.7 L Hct 34.1 L MCV 97.4 MCH 30.6 MCHC 31.4 L RDW 16.9 H RDW Differential 57.3 H Plt Count 115 L MPV 11.7 Sodium 146 H Potassium 4.0 Chloride 107 Carbon Dioxide 33.0 H Anion Gap 6 BUN 16 Creatinine 0.51 L Estim Creat Clear Calc 45.85 Est GFR (MDRD) Af Amer 155 Est GFR (MDRD) Non-Af 128 BUN/Creatinine Ratio 31.6 H Glucose 100 Calcium 7.1 L Magnesium 1.6 POC Glucose 07/20/18 11:22 POC Glucose 130 H Discharge Diet: Low fat/ Low Cholesterol Home Medications: Medications to take at Discharge Aspirin [Aspirin, Baby] 81 mg PO DAILY@0800 03/24/15 Escitalopram Oxalate [Lexapro] 10 mg PO DAILY 03/24/15 Lisinopril [Zestril] 5 mg PO DAILY 03/24/15 Montelukast [Singulair] 10 mg PO DAILY 03/24/15 Multivitamins,Ther W-Minerals [Multivitamin With Minerals] 1 tab PO DAILY 03/24/15 Omeprazole [Prilosec] 40 mg PO DAILY 03/24/15 Pravastatin [Pravachol] 20 mg PO QHS 03/24/15 Cholecalciferol (VIT D3) [Vitamin D3] 1,000 unit PO DAILY 11/22/16 gabapentin 300 mg capsule 600 mg PO QHS cap 10/20/17 polysaccharide iron complex 150 mg iron capsule 150 mg PO QDAY cap 10/20/17 furosemide 20 mg tablet 20 mg PO QDAY #30 tab 11/11/17 Oxybutynin Chloride [Ditropan Xl] 10 mg PO DAILY 03/30/18 Acetaminophen [Tylenol Tablet] 650 mg PO Q6H PRN PRN tablet 07/21/18 Ciprofloxacin [Cipro] 500 mg PO BID #10 tab 07/21/18 Lactobacillus Acidophilus [Acidophilus] 1 tab PO DAILY #30 tab 07/21/18 Loperamide [Imodium] 2 mg PO Q4H PRN PRN #0 capsule 07/21/18 Magnesium Hydroxide [Milk Of Magnesia] 30 ml PO DAILY PRN udc 07/21/18 Menthol/Lanolin/Calamine/Znox [Calmoseptine Ointment] 1 applic TOPICAL BID tube 07/21/18 Pilocarpine HCl 5 mg PO TID #0 07/21/18 Following Prescrptions Were Given to Patient: Ciprofloxacin [Cipro] 500 mg PO BID #10 tab Lactobacillus Acidophilus [Acidophilus] 1 tab PO DAILY #30 tab Primary Care Physician: Albert Jarvis Chi, MD [Primary Care Provider] - Disposition: Custodial facility Minutes spent on discharge:: 45 Patient Condition:: Stable Medical Necessity - Tobacco Use Smoking Status: Former smoker Tobacco Use: Cigarettes Meaningful Use Info Meaningful Use Diagnoses (Choose all that apply): None applicable Code Visit Inpatient E&M: 38012 Disch Hosp
--- NOTE | 2018-07-21 11:15 | DS.PCM_ITS ---
Discharge Date and Diagnosis - Problem List Patient Problems: Active and Suspected Problems (Last Updated 07/19/18 @ 08:25 by Rsa Patterson MD) Sepsis (Acute) Acute cystitis (Acute) Decubitus ulcer (Acute) Date of Admission: 07/18/18 Date of Discharge: 07/21/18 - Primary Discharge Diagnosis Active and Suspected Problems (Last Updated 07/19/18 @ 08:25 by Ras Patterson MD) Sepsis (Acute) Acute cystitis (Acute) Decubitus ulcer (Acute) - Secondary Discharge Diagnosis Chronic Problems (Last Updated 07/19/18 @ 08:25 by Ras Patterson MD) Ulcer of right lower extremity with fat layer exposed (Chronic) Type 2 diabetes mellitus without complications (Chronic) PVD (peripheral vascular disease) (Chronic) Lower extremity edema (Chronic) Delayed wound healing (Chronic) Neuropathic pain (Chronic) Asthma (Chronic) Other secondary pulmonary hypertension (Chronic) Murmur, cardiac (Chronic) Hospital Course and Treatment Imaging Results: Clinical Impression(s) from Imaging Studies Brain CT 07/18/18 18:10 IMPRESSION: 1. No acute findings. 2. Microvascular ischemia. Atrophy. Dr. Machado discussed the findings with Dr. Conrad at 6:35 PM. N.B. : The above information has been verbally conveyed by Martha Machado MD to Dr. Jose Conrad MD, on 07/18/2018 18:39:31 (ET). Electronically Signed: Martha Machado MD at 18:37 EST Tel , Service support , Chest X-Ray 07/18/18 18:37 IMPRESSION: Low volume inspiration with cardiomegaly and atelectasis. No acute abnormality. Electronically Signed: Balwinder Bermudez MD at 19:25 EST , Service support , Brain MRI 07/20/18 08:29 IMPRESSION: No evidence of infarct or hemorrhage. Microangiopathic changes as described. Electronically Signed: Lawrence Toledo MD at 10:03 EST Tel , Service support , Microbiology 07/19/18 12:35 Urine, Catheterized Urine Culture - Final Presumptive E. coli GPC Poss Enterococcus sp 07/18/18 20:00 Blood Culture (Wb) - Anticubital Right Blood Culture - Preliminary No growth in 48 hours. 07/18/18 19:45 Blood Culture (Wb) - Anticubital Right Blood Culture - Preliminary No growth in 48 hours. 07/19/18 12:35 Stool C. difficile DNA Amplification - Final Consultations 07/18/18 22:56 Consult: Onc/Wound/jawbone puller Routine Comment: Reason for Consult:: Decubitus ulcer Operations: None Summary of Care Provided: Patient is a 67-year-old lady with multiple comorbidities including chronic decubitus ulcer involving the coccyx admitted with right-sided weakness and left facial droop. Patient was also found to have sepsis secondary to acute cystitis 1. Transient ischemic attack acute CVA was ruled out with imaging studies with MRI 2. Sepsis secondary to acute cystitis patient E. coli. Patient was initially managed with Rocephin discharged on ciprofloxacin 3. Decubitus ulcer involving the coccyx consult was placed to wound care nurse 4. Chronic nonhealing ulcer involving the right leg patient requested consultation with Dr. Sharma with podiatry consult placed 5. Diabetes mellitus type 2 did continue with home regimen in addition to Accu- Cheks before meals and at bedtime with sliding scale coverage 6. Dyslipidemia-patient is on statin therapy, continued at home dose 7. Obesity with BMI of 31.9 8. Peripheral vascular disease 9. GERD on PPI 10. Diabetic neuropathy patient is on gabapentin 11. Depression patient is on SSRI 12. Chronic diarrhea C. difficile was ruled out with a negative C. difficile assay. Patient was treated symptomatically with Imodium 13. Physical deconditioning requested for PT OT and social welfare research worker to assist with discharge planning the patient was discharged to [facility] facility once insurance preset education was obtained 14. DVT prophylaxis SC heparin Patient Problems: Active and Suspected Problems (Last Updated 07/19/18 @ 08:25 by Ras Patterson MD) Sepsis (Acute) Acute cystitis (Acute) Decubitus ulcer (Acute) Subjective: GENERAL: cooperative HEENT: Atraumatic; EYES; Anicteric, NECK; supple, normal thyroid, RESPIRATORY: Diminished to auscultation bilaterally, CARDIOVASCULAR: Regular S1 S2, GI: soft, non-tender, normoactive bowel sounds, : No Renal angle tenderness; EXTREMITIES: No edema, no clubbing, no cyanosis. - Physical Exam Vital Signs Temp Pulse Resp BP Pulse Ox 98.8 F 96 17 140/70 H 94 07/21/18 08:25 07/21/18 08:25 07/21/18 08:25 07/21/18 08:25 07/21/18 08:35 Oxygen Flow Rate (L/min) 2 Oxygen Delivery Method Nasal Cannula Weight: 84.4 kg Body Mass Index (BMI) 31.9 Finger Stick Blood Glucose 148 Intake and Output for Last 24 Hours 07/19/18 07/20/18 07/21/18 23:59 23:59 23:59 Intake Total 1429.4 / 1429.4 985 / 985 120 / 120 Output Total 1075 / 1075 2180 / 2180 700 / 700 Balance 354.4 / 354.4 -1195 / -1195 -580 / -580 Microbiology Past 72 Hours 07/19/18 12:35 Urine Culture - Final Urine, Catheterized Presumptive E. coli GPC Poss Enterococcus sp 07/18/18 20:00 Blood Culture - Preliminary Blood Culture (Wb) - Anticubital Right No growth in 48 hours. 07/18/18 19:45 Blood Culture - Preliminary Blood Culture (Wb) - Anticubital Right No growth in 48 hours. 07/19/18 12:35 C. difficile DNA Amplification - Final Stool Laboratory Tests Past 24 Hrs 07/21/18 07/21/18 05:05 05:05 WBC 6.6 RBC 3.50 L Hgb 10.7 L Hct 34.1 L MCV 97.4 MCH 30.6 MCHC 31.4 L RDW 16.9 H RDW Differential 57.3 H Plt Count 115 L MPV 11.7 Sodium 146 H Potassium 4.0 Chloride 107 Carbon Dioxide 33.0 H Anion Gap 6 BUN 16 Creatinine 0.51 L Estim Creat Clear Calc 45.85 Est GFR (MDRD) Af Amer 155 Est GFR (MDRD) Non-Af 128 BUN/Creatinine Ratio 31.6 H Glucose 100 Calcium 7.1 L Magnesium 1.6 POC Glucose 07/20/18 11:22 POC Glucose 130 H Discharge Diet: Low fat/ Low Cholesterol Home Medications: Medications to take at Discharge Aspirin [Aspirin, Baby] 81 mg PO DAILY@0800 03/24/15 Escitalopram Oxalate [Lexapro] 10 mg PO DAILY 03/24/15 Lisinopril [Zestril] 5 mg PO DAILY 03/24/15 Montelukast [Singulair] 10 mg PO DAILY 03/24/15 Multivitamins,Ther W-Minerals [Multivitamin With Minerals] 1 tab PO DAILY 03/24/15 Omeprazole [Prilosec] 40 mg PO DAILY 03/24/15 Pravastatin [Pravachol] 20 mg PO QHS 03/24/15 Cholecalciferol (VIT D3) [Vitamin D3] 1,000 unit PO DAILY 11/22/16 gabapentin 300 mg capsule 600 mg PO QHS cap 10/20/17 polysaccharide iron complex 150 mg iron capsule 150 mg PO QDAY cap 10/20/17 furosemide 20 mg tablet 20 mg PO QDAY #30 tab 11/11/17 Oxybutynin Chloride [Ditropan Xl] 10 mg PO DAILY 03/30/18 Acetaminophen [Tylenol Tablet] 650 mg PO Q6H PRN PRN tablet 07/21/18 Ciprofloxacin [Cipro] 500 mg PO BID #10 tab 07/21/18 Lactobacillus Acidophilus [Acidophilus] 1 tab PO DAILY #30 tab 07/21/18 Loperamide [Imodium] 2 mg PO Q4H PRN PRN #0 capsule 07/21/18 Magnesium Hydroxide [Milk Of Magnesia] 30 ml PO DAILY PRN udc 07/21/18 Menthol/Lanolin/Calamine/Znox [Calmoseptine Ointment] 1 applic TOPICAL BID tube 07/21/18 Pilocarpine HCl 5 mg PO TID #0 07/21/18 Following Prescrptions Were Given to Patient: Ciprofloxacin [Cipro] 500 mg PO BID #10 tab Lactobacillus Acidophilus [Acidophilus] 1 tab PO DAILY #30 tab Primary Care Physician: Albert Jarvis Chi, MD [Primary Care Provider] - Disposition: [facility] facility Minutes spent on discharge:: 45 Patient Condition:: Stable Medical Necessity - Tobacco Use Smoking Status: Former smoker Tobacco Use: Cigarettes Meaningful Use Info Meaningful Use Diagnoses (Choose all that apply): None applicable Code Visit Inpatient E&M: 53672 Disch Hosp
--- NOTE | 2018-07-21 11:51 | CASEMGMT ---
Patient ready for discharge today. KEVIN faxed orders to [facility]. [facility]. KEVIN notified RN, patient, and left message for Laurence at [facility]. Convalescent completed on [facility]ENS. Plan: d/c to [facility] under skilled level of care on a convalescent stay. [facility] Pratima CAPELLAN
--- NOTE | 2018-07-21 11:58 | PHA.DC.MR ---
Pharmacy Service has performed discharge medication reconciliation for this patient upon transfer to [facility]. The patient's discharge medication list was reviewed for discrepancies and discrepancies were resolved. Home Medications Aspirin [Aspirin, Baby] 81 mg PO DAILY@0800 03/24/15 Escitalopram Oxalate [Lexapro] 10 mg PO DAILY 03/24/15 Lisinopril [Zestril] 5 mg PO DAILY 03/24/15 Montelukast [Singulair] 10 mg PO DAILY 03/24/15 Multivitamins,Ther W-Minerals [Multivitamin With Minerals] 1 tab PO DAILY 03/24/15 Omeprazole [Prilosec] 40 mg PO DAILY 03/24/15 Pravastatin [Pravachol] 20 mg PO QHS 03/24/15 Cholecalciferol (VIT D3) [Vitamin D3] 1,000 unit PO DAILY 11/22/16 gabapentin 300 mg capsule 600 mg PO QHS cap 10/20/17 polysaccharide iron complex 150 mg iron capsule 150 mg PO QDAY cap 10/20/17 furosemide 20 mg tablet 20 mg PO QDAY #30 tab 11/11/17 Oxybutynin Chloride [Ditropan Xl] 10 mg PO DAILY 03/30/18 Acetaminophen [Tylenol Tablet] 650 mg PO Q6H PRN PRN tablet 07/21/18 Ciprofloxacin [Cipro] 500 mg PO BID #10 tab 07/21/18 Lactobacillus Acidophilus [Acidophilus] 1 tab PO DAILY #30 tab 07/21/18 Loperamide [Imodium] 2 mg PO Q4H PRN PRN #0 capsule 07/21/18 Magnesium Hydroxide [Milk Of Magnesia] 30 ml PO DAILY PRN udc 07/21/18 Menthol/Lanolin/Calamine/Znox [Calmoseptine Ointment] 1 applic TOPICAL BID tube 07/21/18 Pilocarpine HCl 5 mg PO TID #0 07/21/18
[2018-07-21] MEDS: Loperamide 2 MG Capsule 4 MG PO (12:02)
--- NOTE | 2018-07-21 13:14 | NURSING ---
Report called to Pia, nurse at [facility].
== END 2018-07-21 13:17 | disposition skilled nursing facility (03) | DRG 854 ==
LOC: ED 19:43 → PCU 21:38
PROVIDERS: Hospitalist; Admitting Provider Hospitalist; Emergency Provider Emergency Medicine; Family Provider Family Medicine Geriatric Medicine; PCP Family Medicine Geriatric Medicine; Referring Provider Hospitalist; Visit Provider Internal Medicine
DX: A41.51 Sepsis due to Escherichia coli [E. coli] (principal); N30.00 Acute cystitis without hematuria; L97.812 Non-pressure chronic ulcer of other part of right lower leg with fat layer exposed; E78.5 Hyperlipidemia, unspecified; E66.9 Obesity, unspecified; I87.2 Venous insufficiency (chronic) (peripheral); I27.20 Pulmonary hypertension, unspecified; L89.150 Pressure ulcer of sacral region, unstageable; J45.909 Unspecified asthma, uncomplicated; R01.1 Cardiac murmur, unspecified; G62.9 Polyneuropathy, unspecified; I73.9 Peripheral vascular disease, unspecified; B96.20 Unspecified Escherichia coli [E. coli] as the cause of diseases classified elsewhere; Z68.31 Body mass index [BMI] 31.0-31.9, adult; Z79.899 Other long term (current) drug therapy; Z87.891 Personal history of nicotine dependence; F32.9 Major depressive disorder, single episode, unspecified; E11.40 Type 2 diabetes mellitus with diabetic neuropathy, unspecified; K21.9 Gastro-esophageal reflux disease without esophagitis; E11.622 Type 2 diabetes mellitus with other skin ulcer; E11.51 Type 2 diabetes mellitus with diabetic peripheral angiopathy without gangrene; R60.0 Localized edema; M20.5X1 Other deformities of toe(s) (acquired), right foot
CPT/HCPCS: 11042; 36415; 70450; 70551; 71045; 80048; 80061; 81001; 82962; 83036; 83605; 83735; 84484; 85025; 85027; 85610; 85730; 87040; 87086; 87088; 87149; 87186; 87493; 92526; 92610; 93005; 93306; 93880; 97162; 97165; 97530; 99285; J7030; Q9957; A4216

== ENCOUNTER 2018-08-06 11:00 | Outpatient (RCR) | payer MEDICARE, OTHER, SELFPAY ==
[2018-07-07 01:19] VITALS: BP 150/77; PULSE 84; RESP 16; TEMP 36.2
[2018-07-09 10:15] VITALS: BP 114/64; PULSE 85; RESP 18; TEMP 35.7; BMI 32.6
--- NOTE | 2018-07-09 14:27 | PN.PCM_ITS ---
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 (2) Type 2 diabetes mellitus without complications Status: Acute Current Visit: No Code(s): E11.9 - Type 2 diabetes mellitus without complications (3) PVD (peripheral vascular disease) Status: Acute Current Visit: No Code(s): I73.9 - Peripheral vascular disease, unspecified (4) Lower extremity edema Status: Acute Current Visit: No Code(s): R60.0 - Localized edema (5) Delayed wound healing Status: Acute Current Visit: No Code(s): T14.8XXD - Other injury of unspecified body region, subsequent encounter Type of Wound Chief Complaint: non healing right lower leg ulcer History of Wound: This 67-year-old diabetic female presents to the wound healing center again after another ulcer is open on her right lower anterior leg. Patient admits to not wearing compression as she was instructed after she was healed and discharged from the wound healing center at her last visit. She has not done anything to treat the area on her own other than keeping the ulcer covered. Patient also states that she has a very small opening to the medial right hallux. She says after her callus was debrided her last podiatry visit with me that she did not keep the area protracted as instructed and has also been walking in shoes that are not appropriate for extended periods of time. She says the area has slowly been breaking down as well. She denies any pus to the area or any extending redness to either of the ulcer sites. She currently denies any feelings of nausea, vomiting, fever, or chills. Progress of Wound: Ulcer to right lower extremity continues to show improvement. Patient denies any feelings of nausea, vomiting, fever, chills. - Physical Exam Vital Signs Temp Pulse Resp BP 96.2 F L 85 18 114/64 07/09/18 10:15 07/09/18 10:15 07/09/18 10:15 07/09/18 10:15 General: Alert, Oriented x3, Cooperative, No apparent distress Extremities: Capillary Refill Less than 3 Seconds, No Calf Tenderness - Negative Josh and Rinaldi sign, Diminished Peripheral Pulses, Edema - Bilateral pitting lower extremity edema Skin: Ulcer/ Wound - Ulcer to right anterior lower leg with fat layer exposed. Measurements are noted below. Improvement noted this week again. The base continues to be a mixture of adherent slough, fibrin, granular tissue, as well as some slight surrounding hyperkeratotic tissue. There continues to be no probing to bone, no tracking, no undermining, no purulence, no malodor, no surrounding or extending cellulitis, and no increase in warmth to the ulcer at this time. Wound Measurements and Assessment - Nurse 1 - General Ulcer Measurement Start: 07/09/18 10:15 Freq: Status: Active Protocol: Activity Type Activity Date Activity User E-Sign Co-Sign Detail Recorded Client Recorded Date Recorded By Document 07/09/18 10:15 [id number] 07/09/18 10:29 07/09/18 10:15 Wound Center Nurse 1 [Ulcer Assessment] #4 RIGHT GREAT TOE -Combined with other wound No -Current Size (cm) - Length 0.1 -Current Size (cm) - Width 0.1 -Current Size (cm) - Depth 0.1 -Total Square Cm 0.01 -Date of Last Picture (Recall this 07/09/18 field) -Photo Taken Yes -Epithelialization Large 67-100% -Tunneling No -Undermining/Tunneling No -Circular Undermining No -Texture (Gricel-wound Skin Appearance) Callus #3- RT MORAN -Combined with other wound No -Current Size (cm) - Length 1 -Current Size (cm) - Width 0.2 -Current Size (cm) - Depth 0.1 -Total Square Cm 0.2 -Date of Last Picture (Recall this 07/09/18 field) -Photo Taken Yes -Epithelialization Medium 34-66% -Tunneling No -Undermining/Tunneling No -Circular Undermining No -Moisture (Gricel-wound Skin Appearance Dry/Scaly ) -Color (Gricel-wound Skin Appearance) Hemosiderin Staining -Temperature (Gricel-wound Skin No Abnormality Appearance) (Pt Warm) -Tenderness on Palpation (Gricel-wound No Skin Appearance) -Ulcer Cleansing Rinsed/ Irrigated with Saline -Foul Odor after Cleansing No -Anesthetic Used 4% Lidocaine Solution [Edema Assessment] -Lower Limb Edema Present Yes -Right Calf (cm) 46 -Right Ankle (cm) 26 -Left Calf (cm) 33 -Left Ankle (cm) 23.5 WC - Nurse 2 - General Ulcer CM Notes Start: 07/09/18 10:15 Freq: Status: Active Protocol: Activity Type Activity Date Activity User E-Sign Co-Sign Detail Recorded Client Recorded Date Recorded By Document 07/09/18 13:23 DV [id number] 07/09/18 13:24 DV 07/09/18 13:23 Wound Center Nurse 2 [Procedure/Treatment] #3- RT MORAN -Time 13:23 -Correct Patient Yes -Correct Side, Site, Position Yes -Correct Procedure Yes -Procedure Performed Yes -Type of Procedure Debridement -Clinical Debridement Subcutaneous -Post Debridement Size (cm) - Length 1.4 -Post Debridement Size (cm) - Width 0.4 -Post Debridement Size (cm) - Depth 0.1 -Total Square Cm 0.56 -Wound/Ulcer Outcome Not Healed -Ulcer Cleansing Rinsed/ Irrigated with Saline -Foul Odor after Cleansing No -Bioengineered Tissue No -Bleeding Controlled with Pressure -Offloading No -Treatment Response Procedure Tolerated Well [See Physician Procedure note for Specifics] Pain Scale: 0-10 Numeric [Pain] -Is Patient Pain Free? Yes Musculoskeletal: Tenderness - With manipulation of ulcer site Neurological: Sensory exam intact to light touch and pain Psych/Mental Status: Normal Affect, Appropriate Debridement Note Post-Debridement Measurements/Treatment WC - Nurse 2 - General Ulcer CM Notes Start: 07/09/18 10:15 Freq: Status: Active Protocol: Activity Type Activity Date Activity User E-Sign Co-Sign Detail Recorded Client Recorded Date Recorded By Document 07/09/18 13:23 DV [id number] 07/09/18 13:24 DV 07/09/18 13:23 Wound Center Nurse 2 #3- RT MORAN -Time 13:23 -Correct Patient Yes -Correct Side, Site, Position Yes -Correct Procedure Yes -Procedure Performed Yes -Type of Procedure Debridement -Clinical Debridement Subcutaneous -Post Debridement Size (cm) - Length 1.4 -Post Debridement Size (cm) - Width 0.4 -Post Debridement Size (cm) - Depth 0.1 -Total Square Cm 0.56 -Wound/Ulcer Outcome Not Healed -Ulcer Cleansing Rinsed/ Irrigated with Saline -Foul Odor after Cleansing No -Bioengineered Tissue No -Bleeding Controlled with Pressure -Offloading No -Treatment Response Procedure Tolerated Well Pain Scale: 0-10 Numeric Is Patient Pain Free? Yes Wound debrided: Right anterior lower leg Laterality: Right Type of Debridement: Excisional debridement Depth: in the subcutaneous layer Percentage of wound debrided: 100 Instrument Used: 7mm curette Tissue Removed: Adherent slough, fibrin, hyperkeratotic tissue Severity: Fat Layer Exposed Amount of bleeding with debridement: Mild Bleeding Controlled with: Pressure Patient tolerated procedure well Assessment/Plan Assessment: Ulcer right lower leg, DM II, PVD, ulcer right medial hallux Plan: Patient was examined and evaluated again today. Subcutaneous debridement was performed as noted in the clinical panel to the right lower leg. Once complete, silvercel was applied to the ulcer base, followed by double layer Tubigrip for compression. The patient was educated on the importance of keeping compression to the area. Patient was instructed to continue with proper high-pro tein diet as well as the importance of tight glycemic control. The patient was educated on all signs and symptoms of local and systemic infection, and she was instructed to go to the emergency room immediately should she notice any. All other questions and concerns were answered to the patient's satisfaction today. The patient will follow-up in the wound healing center in 1 week with me to check on progress, but was instructed to call the clinic sooner if needed.
[2018-07-16 10:12] VITALS: BP 122/72; PULSE 81; RESP 16; TEMP 36.2; BMI 32.6
--- NOTE | 2018-07-16 13:00 | PCM.WC.PN ---
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 (2) Type 2 diabetes mellitus without complications Status: Acute Current Visit: No Code(s): E11.9 - Type 2 diabetes mellitus without complications (3) PVD (peripheral vascular disease) Status: Acute Current Visit: No Code(s): I73.9 - Peripheral vascular disease, unspecified (4) Lower extremity edema Status: Acute Current Visit: No Code(s): R60.0 - Localized edema (5) Delayed wound healing Status: Acute Current Visit: No Code(s): T14.8XXD - Other injury of unspecified body region, subsequent encounter Type of Wound Chief Complaint: non healing right lower leg ulcer History of Wound: This 67-year-old diabetic female presents to the wound healing center again after another ulcer is open on her right lower anterior leg. Patient admits to not wearing compression as she was instructed after she was healed and discharged from the wound healing center at her last visit. She has not done anything to treat the area on her own other than keeping the ulcer covered. Patient also states that she has a very small opening to the medial right hallux. She says after her callus was debrided her last podiatry visit with me that she did not keep the area protracted as instructed and has also been walking in shoes that are not appropriate for extended periods of time. She says the area has slowly been breaking down as well. She denies any pus to the area or any extending redness to either of the ulcer sites. She currently denies any feelings of nausea, vomiting, fever, or chills. Progress of Wound: Ulcer to right lower extremity remains stable at this time. Patient developed new ulcer just superior to her other ulcer. Patient denies any feelings of nausea, vomiting, fever, chills. - Physical Exam Vital Signs Temp Pulse Resp BP 97.1 F L 81 16 122/72 H 07/16/18 10:12 07/16/18 10:12 07/16/18 10:12 07/16/18 10:12 General: Alert, Oriented x3, Cooperative, No apparent distress Extremities: Capillary Refill Less than 3 Seconds, No Calf Tenderness - Negative Josh and Rinaldi sign, Diminished Peripheral Pulses - DP pulses palpable and PT pulses nonpalpable due to lower extremity edema, Edema - Bilateral pitting lower extremity edema Skin: Ulcer/ Wound - Ulcers to right anterior lower leg with one superior and one inferior. The bases of each are a mixture of adherent slough, fibrin, granular tissue, as well as some slight surrounding hyperkeratotic tissue. There is no probing to bone, no tracking, no undermining, no purulence, no malodor, no surrounding or extending cellulitis, no increase in warmth to either side at this time. Wound Measurements and Assessment WC - Nurse 1 - General Ulcer Measurement Start: 07/09/18 10:15 Freq: Status: Active Protocol: Activity Type Activity Date Activity User E-Sign Co-Sign Detail Recorded Client Recorded Date Recorded By Document 07/16/18 10:12 [facility] [id number] 07/16/18 10:29 [facility] 07/16/18 10:12 Wound Center Nurse 1 [Ulcer Assessment] #6- RT MORAN SUPERIOR -Combined with other wound No -Current Size (cm) - Length 1.4 -Current Size (cm) - Width 2.4 -Current Size (cm) - Depth 0.1 -Total Square Cm 3.36 -Date of Last Picture (Recall this 07/16/18 field) -Photo Taken Yes -Epithelialization None Present -Tunneling No -Undermining/Tunneling No -Circular Undermining No -Exudate Amt Medium -Exudate Type Serous -Wound Margin Flat & Intact -Granulation Amt Small (1-33%) -Granulation Quality [place] -Slough/Fibrin Yes -Necrosis Amt Large (67-100%) -Necrotic Tissue Type Adherent Slough -Structure Exposed None/Limited to Skin Breakdown -Texture (Gricel-wound Skin Appearance) Assessed -Moisture (Gricel-wound Skin Appearance Maceration ) Weeping -Color (Gricel-wound Skin Appearance) Hemosiderin Staining -Temperature (Gricel-wound Skin No Abnormality Appearance) (Pt Warm) -Tenderness on Palpation (Gricel-wound No Skin Appearance) -Ulcer Cleansing Rinsed/ Irrigated with Saline -Foul Odor after Cleansing No -Anesthetic Used 5% Lidocaine Gel #3- RT MORAN -Combined with other wound No -Current Size (cm) - Length 0.8 -Current Size (cm) - Width 0.3 -Current Size (cm) - Depth 0.1 -Total Square Cm 0.24 -Photo Taken No -Epithelialization Medium 34-66% -Tunneling No -Undermining/Tunneling No -Circular Undermining No -Exudate Amt Small -Exudate Type Serous -Wound Margin Flat & Intact -Granulation Amt Large (67-100%) -Granulation Quality Red -Slough/Fibrin No -Necrosis Amt None Present (0 %) -Structure Exposed None/Limited to Skin Breakdown -Texture (Gricel-wound Skin Appearance) Scarring -Moisture (Gricel-wound Skin Appearance Maceration ) Weeping -Color (Gricel-wound Skin Appearance) Hemosiderin Staining -Temperature (Gricel-wound Skin No Abnormality Appearance) (Pt Warm) -Tenderness on Palpation (Gricel-wound No Skin Appearance) -Ulcer Cleansing Rinsed/ Irrigated with Saline -Foul Odor after Cleansing No -Anesthetic Used 5% Lidocaine Gel [Edema Assessment] -Lower Limb Edema Present Yes -Right Calf (cm) 42.6 -Right Ankle (cm) 28.6 -Left Calf (cm) 40.6 -Left Ankle (cm) 26.6 WC - Nurse 2 - General Ulcer CM Notes Start: 07/09/18 10:15 Freq: Status: Active Protocol: Activity Type Activity Date Activity User E-Sign Co-Sign Detail Recorded Client Recorded Date Recorded By Document 07/16/18 11:13 DV [id number] 07/16/18 11:21 DV 07/16/18 11:13 Wound Center Nurse 2 [Procedure/Treatment] #6- RT MORAN SUPERIOR -Time 11:15 -Correct Patient Yes -Correct Side, Site, Position Yes -Correct Procedure Yes -Procedure Performed Yes -Type of Procedure Debridement -Clinical Debridement Subcutaneous -Post Debridement Size (cm) - Length 2.4 -Post Debridement Size (cm) - Width 3.5 -Post Debridement Size (cm) - Depth 0.1 -Total Square Cm 8.40 -Wound/Ulcer Outcome Not Healed -Ulcer Cleansing Rinsed/ Irrigated with Saline -Foul Odor after Cleansing No -Bioengineered Tissue No -Bleeding Controlled with Pressure -Offloading No -Treatment Response Procedure Tolerated Well #3- RT MORAN -Time 11:14 -Correct Patient Yes -Correct Side, Site, Position Yes -Correct Procedure Yes -Procedure Performed Yes -Type of Procedure Debridement -Clinical Debridement Subcutaneous -Post Debridement Size (cm) - Length 1.2 -Post Debridement Size (cm) - Width 0.5 -Post Debridement Size (cm) - Depth 0.1 -Total Square Cm 0.60 -Wound/Ulcer Outcome Not Healed -Ulcer Cleansing Rinsed/ Irrigated with Saline -Foul Odor after Cleansing No -Bioengineered Tissue No -Bleeding Controlled with Pressure -Offloading No -Treatment Response Procedure Tolerated Well [See Physician Procedure note for Specifics] Pain Scale: 0-10 Numeric [Pain] -Is Patient Pain Free? Yes Musculoskeletal: Tenderness - With manipulation of ulcer site Neurological: Sensory exam intact to light touch and pain Psych/Mental Status: Normal Affect, Appropriate Debridement Note Post-Debridement Measurements/Treatment WC - Nurse 2 - General Ulcer CM Notes Start: 07/09/18 10:15 Freq: Status: Active Protocol: Activity Type Activity Date Activity User E-Sign Co-Sign Detail Recorded Client Recorded Date Recorded By Document 07/09/18 13:23 DV [id number] 07/09/18 13:24 DV Document 07/16/18 11:13 DV [id number] 07/16/18 11:21 DV 07/09/18 07/16/18 13:23 11:13 Wound Center Nurse 2 #6- RT MORAN SUPERIOR -Time 11:15 -Correct Patient Yes -Correct Side, Site, Position Yes -Correct Procedure Yes -Procedure Performed Yes -Type of Procedure Debridement -Clinical Debridement Subcutaneous -Post Debridement Size (cm) - Length 2.4 -Post Debridement Size (cm) - Width 3.5 -Post Debridement Size (cm) - Depth 0.1 -Total Square Cm 8.40 -Wound/Ulcer Outcome Not Healed -Ulcer Cleansing Rinsed/ Irrigated with Saline -Foul Odor after Cleansing No -Bioengineered Tissue No -Bleeding Controlled with Pressure -Offloading No -Treatment Response Procedure Tolerated Well #3- RT MORAN -Time 13:23 11:14 -Correct Patient Yes Yes -Correct Side, Site, Position Yes Yes -Correct Procedure Yes Yes -Procedure Performed Yes Yes -Type of Procedure Debridement Debridement -Clinical Debridement Subcutaneous Subcutaneous -Post Debridement Size (cm) - Length 1.4 1.2 -Post Debridement Size (cm) - Width 0.4 0.5 -Post Debridement Size (cm) - Depth 0.1 0.1 -Total Square Cm 0.56 0.60 -Wound/Ulcer Outcome Not Healed Not Healed -Ulcer Cleansing Rinsed/ Rinsed/ Irrigated with Irrigated with Saline Saline -Foul Odor after Cleansing No No -Bioengineered Tissue No No -Bleeding Controlled with Pressure Pressure -Offloading No No -Treatment Response Procedure Procedure Tolerated Well Tolerated Well Pain Scale: 0-10 Numeric Is Patient Pain Free? Yes Yes Wound debrided: Right anterior lower leg superior Laterality: Right Type of Debridement: Excisional debridement Depth: in the subcutaneous layer Percentage of wound debrided: 100 Instrument Used: 7mm curette Tissue Removed: Adherent slough, fibrin, biofilm, hyperkeratotic tissue Severity: Fat Layer Exposed Amount of bleeding with debridement: Mild Bleeding Controlled with: Pressure Patient tolerated procedure well - Additional Wound Wound debrided: Right anterior lower leg inferior Laterality: Right Type of Debridement: Excisional debridement Anesthesia Used: 4% Lidocaine Solution Depth: in the subcutaneous layer Percentage of wound debrided: 100 Instrument Used: 7mm curette Tissue Removed: Adherent slough, fibrin, biofilm, hyperkeratotic tissue Severity: Fat Layer Exposed Amount of bleeding with debridement: Mild Bleeding Controlled with: Pressure Patient tolerated procedure: Patient tolerated procedure well Assessment/Plan Assessment: Ulcer right lower leg, DM II, PVD, ulcer right medial hallux Plan: Patient was examined and evaluated again today. New ulcer noted today as well. Subcutaneous debridement was performed as noted in the clinical panel to each ulcer site to the right lower leg. Once complete, unna boot was applied, followed by rolled gauze and coban. Patient will come in Friday to have the area evaluated and make sure she is tolerating this well. She is to call the wound center or go to the ER sooner if she notices any issues before Friday. She understands this. The patient was educated on the importance of keeping compression to the area. She has been non compliant in this thoughout her treatment and continues to sit with legs in dependent position. Patient was instructed to continue with proper high-protein diet as well as the importance of tight glycemic control. The patient was educated on all signs and symptoms of local and systemic infection, and she was instructed to go to the emergency room immediately should she notice any. All other questions and concerns were answered to the patient's satisfaction today. The patient will follow-up in the wound healing center in 1 week with me to check on progress, but was instructed to call the clinic sooner if needed.
[2018-07-23 10:27] VITALS: BP 98/52; PULSE 86; RESP 18; TEMP 36.6; BMI 32.6
--- NOTE | 2018-07-23 11:41 | HP.PCM_ITS ---
(1) Sacral decubitus ulcer, stage III Status: Chronic Current Visit: Yes Code(s): L89.153 - Pressure ulcer of sacral region, stage 3 (2) Ulcer of back Status: Acute Current Visit: Yes Code(s): L98.429 - Non-pressure chronic ulcer of back with unspecified severity (3) Cellulitis of left lower extremity Status: Acute Current Visit: Yes Code(s): L03.116 - Cellulitis of left lower limb (4) Lower extremity edema Status: Chronic Current Visit: Yes Code(s): R60.0 - Localized edema (5) Type 2 diabetes mellitus without complications Status: Chronic Current Visit: No Code(s): E11.9 - Type 2 diabetes mellitus without complications (6) Ulcer of right lower extremity with fat layer exposed Status: Chronic Current Visit: No Code(s): L97.912 - Non-pressure chronic ulcer of unspecified part of right lower leg with fat layer exposed History of Present Illness Chief Complaint: non healing right lower leg ulcer, mid back ulcer and left lower extremity redness and pain. History of Wound: Ms. Hendrix is a 67-year-old with past medical history as documented who had previously been seeing Dr. Sharma here at the wound center for nonhealing right lower extremity ulcer and is now a transfer of care to [facility] due to several ulcers above the knee. 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 She has had some dressing done by the care home without any significant improvement. She also has a mid back ulcer. She denies any known precipitating factor or when exactly started. She is noted to have increased redness, warmth and swelling of the left lower extremity. She denies chills, fever all otherwise feeling of unwell. She was hospitalized recently. Past Medical History Past Medical History: Chronic Problems (Last Updated 07/19/18 @ 08:25 by Ras Patterson MD) Sacral decubitus ulcer, stage III (Chronic) Ulcer of right lower extremity with fat layer exposed (Chronic) Type 2 diabetes mellitus without complications (Chronic) PVD (peripheral vascular disease) (Chronic) Lower extremity edema (Chronic) Delayed wound healing (Chronic) Neuropathic pain (Chronic) Asthma (Chronic) Other secondary pulmonary hypertension (Chronic) Murmur, cardiac (Chronic) Surgical History: no surgical history Allergies/Adverse Reactions: Allergies lisinopril Adverse Reaction (Intermediate, Verified 04/03/18 12:36) Unknown penicillin G Adverse Reaction (Intermediate, Verified 04/03/18 12:36) Unknown exenatide [From [place]] Adverse Reaction (Unknown, Verified 04/03/18 12:36) Unknown Home Medications: Ambulatory Orders Medication Instructions Recorded RX: Aspirin [Aspirin, Baby] 81 mg PO DAILY@0800 03/24/15 RX: Escitalopram Oxalate [Lexapro] 10 mg PO DAILY 03/24/15 RX: Lisinopril [Zestril] 5 mg PO DAILY 03/24/15 RX: Montelukast [Singulair] 10 mg PO DAILY 03/24/15 RX: Multivitamins,Ther W-Minerals 1 tab PO DAILY 03/24/15 [Multivitamin With Minerals] RX: Omeprazole [Prilosec] 40 mg PO DAILY 03/24/15 RX: Pravastatin [Pravachol] 20 mg PO QHS 03/24/15 RX: Cholecalciferol (VIT D3) 1,000 unit PO DAILY 11/22/16 [Vitamin D3] gabapentin 300 mg capsule 600 mg PO QHS cap 10/20/17 polysaccharide iron complex 150 mg 150 mg PO QDAY cap 10/20/17 iron capsule furosemide 20 mg tablet 20 mg PO QDAY #30 tab 11/11/17 RX: Oxybutynin Chloride [Ditropan 10 mg PO DAILY 03/30/18 Xl] Ciprofloxacin [Cipro] 500 mg PO BID #10 tab 07/21/18 [place] HCl 5 mg PO TID #0 07/21/18 RX: Acetaminophen [Tylenol Tablet] 650 mg PO Q6H PRN PRN tablet 07/21/18 RX: Lactobacillus Acidophilus 1 tab PO DAILY #30 tab 07/21/18 [Acidophilus] RX: Loperamide [Imodium] 2 mg PO Q4H PRN PRN #0 capsule 07/21/18 RX: Magnesium Hydroxide [Milk Of 30 ml PO DAILY PRN udc 07/21/18 Magnesia] RX: Menthol/Lanolin/Calamine/Znox 1 applic TOPICAL BID tube 07/21/18 [Calmoseptine Ointment] - Family History Maternal Family History: Family History (Last Reviewed 07/19/18 @ 06:56 by Britton Bryan MD) Sister CAD (coronary artery disease) Hx of CABG No pertinent history Paternal Family History: Family History (Last Reviewed 07/19/18 @ 06:56 by Britton Bryan MD) Sister CAD (coronary artery disease) Hx of CABG No pertinent history Smoking Status: Former smoker Review of Systems Constitutional: Denies: Anorexia, Chills, Fever Eyes: Denies: Blurred vision, Pain HEENT: Denies: Difficulty Swallowing Cardiovascular: Denies: Chest Pain, Chest Tightness Respiratory: Denies: Hemoptysis Gastrointestinal: Denies: Abdominal Pain, Hematemesis, Vomiting - Physical Exam Vital Signs Temp Pulse Resp BP 97.8 F 86 18 98/52 L 07/23/18 10:27 07/23/18 10:27 07/23/18 10:27 07/23/18 10:27 General: Alert, Oriented x3, Cooperative, No apparent distress HEENT: Atraumatic, Normocephalic Oral: Moist Mucosa Neck: Supple Lungs: Normal air movement Cardiovascular: Regular rate, Regular Rhythm, Normal S1, Normal S2 Abdomen: Soft, Non Tender Extremities: No cyanosis, Edema Skin: Ulcer/ Wound Wound Measurements and Assessment WC - Nurse 1 - General Ulcer Measurement Start: 07/09/18 10:15 Freq: Status: Active Protocol: Activity Type Activity Date Activity User E-Sign Co-Sign Detail Recorded Client Recorded Date Recorded By Document 07/23/18 10:27 [id number] 07/23/18 10:44 07/23/18 10:27 Wound Center Nurse 1 [Ulcer Assessment] #8 RIGHT MID BACK/RIB -Combined with other wound No -Current Size (cm) - Length 1 -Current Size (cm) - Width 0.8 -Current Size (cm) - Depth 0.1 -Total Square Cm 0.8 -Date of Last Picture (Recall this 07/23/18 field) -Photo Taken Yes -Epithelialization None Present -Tunneling No -Undermining/Tunneling No -Circular Undermining No -Exudate Amt Small -Exudate Type Serous -Wound Margin Flat & Intact -Granulation Amt Small (1-33%) -Granulation Quality [place] -Slough/Fibrin Yes -Necrosis Amt Medium (34-66%) -Necrotic Tissue Type Adherent Slough -Structure Exposed None/Limited to Skin Breakdown -Texture (Gricel-wound Skin Appearance) No Abnormality Assessed -Moisture (Gricel-wound Skin Appearance No Abnormality ) Assessed -Color (Gricel-wound Skin Appearance) Assessed Erythema -Temperature (Gricel-wound Skin No Abnormality Appearance) (Pt Warm) -Tenderness on Palpation (Gricel-wound No Skin Appearance) -Ulcer Cleansing Rinsed/ Irrigated with Saline -Foul Odor after Cleansing No -Anesthetic Used 5% Lidocaine Gel #7 SACRUM -Combined with other wound No -Current Size (cm) - Length 1.4 -Current Size (cm) - Width 0.6 -Current Size (cm) - Depth 0.2 -Total Square Cm 0.84 -Date of Last Picture (Recall this 07/23/18 field) -Photo Taken Yes -Epithelialization None Present -Tunneling No -Undermining/Tunneling No -Circular Undermining No -Wound Margin Thickened -Granulation Amt None Present (0 %) -Slough/Fibrin Yes -Necrosis Amt Large (67-100%) -Necrotic Tissue Type Adherent Slough -Texture (Gricel-wound Skin Appearance) Scarring -Moisture (Gricel-wound Skin Appearance Dry/Scaly ) -Color (Gricel-wound Skin Appearance) Ecchymosis Erythema -Temperature (Gricel-wound Skin No Abnormality Appearance) (Pt Warm) -Tenderness on Palpation (Gricel-wound No Skin Appearance) -Ulcer Cleansing Rinsed/ Irrigated with Saline -Foul Odor after Cleansing No -Anesthetic Used 5% Lidocaine Gel #6- RT BARRIENTOS SUPERIOR -Combined with other wound No -Current Size (cm) - Length 1.7 -Current Size (cm) - Width 2.4 -Current Size (cm) - Depth 0.1 -Total Square Cm 4.08 -Photo Taken No -Epithelialization None Present -Tunneling No -Undermining/Tunneling No -Circular Undermining No -Exudate Amt Medium -Exudate Type Sanguineous -Wound Margin Flat & Intact -Granulation Amt Large (67-100%) -Granulation Quality Red -Slough/Fibrin No -Necrosis Amt None Present (0 %) -Structure Exposed None/Limited to Skin Breakdown -Texture (Gricel-wound Skin Appearance) Scarring -Moisture (Gricel-wound Skin Appearance Dry/Scaly ) -Color (Gricel-wound Skin Appearance) Assessed Erythema -Temperature (Gricel-wound Skin No Abnormality Appearance) (Pt Warm) -Tenderness on Palpation (Gricel-wound No Skin Appearance) -Ulcer Cleansing Wound Cleanser -Foul Odor after Cleansing No -Anesthetic Used 5% Lidocaine Gel #3- RT BARRIENTOS -Combined with other wound No -Current Size (cm) - Length 0.9 -Current Size (cm) - Width 0.3 -Current Size (cm) - Depth 0.1 -Total Square Cm 0.27 -Photo Taken No -Epithelialization None Present -Tunneling No -Undermining/Tunneling No -Circular Undermining No -Exudate Amt Small -Exudate Type Sanguineous -Wound Margin Flat & Intact -Granulation Amt Large (67-100%) -Granulation Quality Red -Slough/Fibrin Yes -Necrosis Amt Small (1-33%) -Necrotic Tissue Type Adherent Slough -Structure Exposed None/Limited to Skin Breakdown -Texture (Gricel-wound Skin Appearance) Scarring -Moisture (Gricel-wound Skin Appearance Dry/Scaly ) -Color (Gricel-wound Skin Appearance) Assessed Erythema -Temperature (Gricel-wound Skin No Abnormality Appearance) (Pt Warm) -Tenderness on Palpation (Gricel-wound No Skin Appearance) -Ulcer Cleansing Wound Cleanser -Foul Odor after Cleansing No -Anesthetic Used 5% Lidocaine Gel [Edema Assessment] -Lower Limb Edema Present Yes -Right Calf (cm) 33.3 -Right Ankle (cm) 23.8 -Left Calf (cm) 36.5 -Left Ankle (cm) 26 WC - Nurse 2 - General Ulcer CM Notes Start: 07/09/18 10:15 Freq: Status: Active Protocol: Activity Type Activity Date Activity User E-Sign Co-Sign Detail Recorded Client Recorded Date Recorded By Document 07/23/18 11:05 MW [id number] 07/23/18 11:21 MW 07/23/18 11:05 Wound Center Nurse 2 [Procedure/Treatment] #8 RIGHT MID BACK/RIB -Time 11:06 -Correct Patient Yes -Correct Side, Site, Position Yes -Correct Procedure Yes -Procedure Performed Yes -Type of Procedure Debridement -Clinical Debridement Subcutaneous -Post Debridement Size (cm) - Length 1.6 -Post Debridement Size (cm) - Width 1.9 -Post Debridement Size (cm) - Depth 0.1 -Total Square Cm 3.04 -Wound/Ulcer Outcome Not Healed -Ulcer Cleansing Rinsed/ Irrigated with Saline -Foul Odor after Cleansing No -Bioengineered Tissue No -Bleeding Controlled with Pressure -Offloading Yes -Treatment Response Procedure Tolerated Well #7 SACRUM -Time 11:05 -Correct Patient Yes -Correct Side, Site, Position Yes -Correct Procedure Yes -Procedure Performed Yes -Type of Procedure Debridement -Clinical Debridement Subcutaneous -Post Debridement Size (cm) - Length 2.5 -Post Debridement Size (cm) - Width 1.5 -Post Debridement Size (cm) - Depth 0.2 -Total Square Cm 3.75 -Wound/Ulcer Outcome Not Healed -Ulcer Cleansing Rinsed/ Irrigated with Saline -Foul Odor after Cleansing No -Bioengineered Tissue No -Bleeding Controlled with Pressure -Offloading Yes -Treatment Response Procedure Tolerated Well #6- RT BARRIENTOS SUPERIOR -Time 11:07 -Correct Patient Yes -Correct Side, Site, Position Yes -Correct Procedure Yes -Procedure Performed Yes -Type of Procedure Debridement -Clinical Debridement Subcutaneous -Post Debridement Size (cm) - Length 2.2 -Post Debridement Size (cm) - Width 2.5 -Post Debridement Size (cm) - Depth 0.1 -Total Square Cm 5.50 -Wound/Ulcer Outcome Not Healed -Ulcer Cleansing Rinsed/ Irrigated with Saline -Foul Odor after Cleansing No -Bioengineered Tissue No -Bleeding Controlled with Pressure -Offloading No -Treatment Response Procedure Tolerated Well #3- RT BARRIENTOS -Time 11:19 -Correct Patient Yes -Correct Side, Site, Position Yes -Correct Procedure Yes -Procedure Performed Yes -Type of Procedure Debridement -Clinical Debridement Subcutaneous -Post Debridement Size (cm) - Length 1.0 -Post Debridement Size (cm) - Width 0.3 -Post Debridement Size (cm) - Depth 0.1 -Total Square Cm 0.30 -Wound/Ulcer Outcome Not Healed -Ulcer Cleansing Rinsed/ Irrigated with Saline -Foul Odor after Cleansing No -Bioengineered Tissue No -Bleeding Controlled with Pressure -Offloading No -Treatment Response Procedure Tolerated Well [See Physician Procedure note for Specifics] Pain Scale: 0-10 Numeric [Pain] -Is Patient Pain Free? Yes Musculoskeletal: No Muscle Wasting Neurological: Cranial nerves II-XII grossly intact Psych/Mental Status: Normal Affect Debridement Note Post-Debridement Measurements/Treatment WC - Nurse 2 - General Ulcer CM Notes Start: 07/09/18 10:15 Freq: Status: Active Protocol: Activity Type Activity Date Activity User E-Sign Co-Sign Detail Recorded Client Recorded Date Recorded By Document 07/09/18 13:23 DV [id number] 07/09/18 13:24 DV Document 07/16/18 11:13 DV [id number] 07/16/18 11:21 DV Document 07/23/18 11:05 MW [id number] 07/23/18 11:21 MW 07/09/18 07/16/18 07/23/18 13:23 11:13 11:05 Wound Center Nurse 2 #8 RIGHT MID BACK/RIB -Time 11:06 -Correct Patient Yes -Correct Side, Site, Position Yes -Correct Procedure Yes -Procedure Performed Yes -Type of Procedure Debridement -Clinical Debridement Subcutaneous -Post Debridement Size (cm) - Length 1.6 -Post Debridement Size (cm) - Width 1.9 -Post Debridement Size (cm) - Depth 0.1 -Total Square Cm 3.04 -Wound/Ulcer Outcome Not Healed -Ulcer Cleansing Rinsed/ Irrigated with Saline -Foul Odor after Cleansing No -Bioengineered Tissue No -Bleeding Controlled with Pressure -Offloading Yes -Treatment Response Procedure Tolerated Well #7 SACRUM -Time 11:05 -Correct Patient Yes -Correct Side, Site, Position Yes -Correct Procedure Yes -Procedure Performed Yes -Type of Procedure Debridement -Clinical Debridement Subcutaneous -Post Debridement Size (cm) - Length 2.5 -Post Debridement Size (cm) - Width 1.5 -Post Debridement Size (cm) - Depth 0.2 -Total Square Cm 3.75 -Wound/Ulcer Outcome Not Healed -Ulcer Cleansing Rinsed/ Irrigated with Saline -Foul Odor after Cleansing No -Bioengineered Tissue No -Bleeding Controlled with Pressure -Offloading Yes -Treatment Response Procedure Tolerated Well #6- RT BARRIENTOS SUPERIOR -Time 11:15 11:07 -Correct Patient Yes Yes -Correct Side, Site, Position Yes Yes -Correct Procedure Yes Yes -Procedure Performed Yes Yes -Type of Procedure Debridement Debridement -Clinical Debridement Subcutaneous Subcutaneous -Post Debridement Size (cm) - Length 2.4 2.2 -Post Debridement Size (cm) - Width 3.5 2.5 -Post Debridement Size (cm) - Depth 0.1 0.1 -Total Square Cm 8.40 5.50 -Wound/Ulcer Outcome Not Healed Not Healed -Ulcer Cleansing Rinsed/ Rinsed/ Irrigated with Irrigated with Saline Saline -Foul Odor after Cleansing No No -Bioengineered Tissue No No -Bleeding Controlled with Pressure Pressure -Offloading No No -Treatment Response Procedure Procedure Tolerated Well Tolerated Well #3- RT BARRIENTOS -Time 13:23 11:14 11:19 -Correct Patient Yes Yes Yes -Correct Side, Site, Position Yes Yes Yes -Correct Procedure Yes Yes Yes -Procedure Performed Yes Yes Yes -Type of Procedure Debridement Debridement Debridement -Clinical Debridement Subcutaneous Subcutaneous Subcutaneous -Post Debridement Size (cm) - Length 1.4 1.2 1.0 -Post Debridement Size (cm) - Width 0.4 0.5 0.3 -Post Debridement Size (cm) - Depth 0.1 0.1 0.1 -Total Square Cm 0.56 0.60 0.30 -Wound/Ulcer Outcome Not Healed Not Healed Not Healed -Ulcer Cleansing Rinsed/ Rinsed/ Rinsed/ Irrigated with Irrigated with Irrigated with Saline Saline Saline -Foul Odor after Cleansing No No No -Bioengineered Tissue No No No -Bleeding Controlled with Pressure Pressure Pressure -Offloading No No No -Treatment Response Procedure Procedure Procedure Tolerated Well Tolerated Well Tolerated Well Pain Scale: 0-10 Numeric Is Patient Pain Free? Yes Yes Yes Wound debrided: Sacral Wound Grade/Stage: Stage III Type of Debridement: Excisional debridement Anesthesia Used: 4% Lidocaine Solution Depth: Down to and including healthy tissue, in the subcutaneous layer Percentage of wound debrided: 100 Instrument Used: 5mm curette Tissue Removed: Slough and devitalized tissue Severity: Fat Layer Exposed Amount of bleeding with debridement: Mild Bleeding Controlled with: Pressure Patient tolerated procedure well - Additional Wound Wound debrided: Mid back Wound Grade/Stage: Stage II Type of Debridement: Excisional debridement Anesthesia Used: 4% Lidocaine Solution Depth: Down to and including healthy tissue Percentage of wound debrided: 100 Instrument Used: 3mm curette Tissue Removed: Slough and devitalized tissue Severity: Fat Layer Exposed Amount of bleeding with debridement: Mild Bleeding Controlled with: Pressure Patient tolerated procedure: Patient tolerated procedure well - Additional Wound Wound debrided: Right superior barrientos Wound Grade/Stage: Stage II Type of Debridement: Excisional debridement Anesthesia Used: 4% Lidocaine Solution Depth: Down to and including healthy tissue, in the subcutaneous layer Percentage of wound debrided: 100 Instrument Used: 3mm curette Tissue Removed: Slough and devitalized tissue Severity: Limited To Skin Breakdown Amount of bleeding with debridement: Mild Bleeding Controlled with: Pressure Patient tolerated procedure: Patient tolerated procedure well - Additional Wound Wound debrided: Right barrientos Wound Grade/Stage: Stage II Type of Debridement: Excisional debridement Anesthesia Used: 4% Lidocaine Solution Depth: Down to and including healthy tissue, in the subcutaneous layer Percentage of wound debrided: 100 Instrument Used: 3mm curette Tissue Removed: Slough and devitalized tissue Severity: Fat Layer Exposed Amount of bleeding with debridement: Mild Bleeding Controlled with: Pressure Patient tolerated procedure: Patient tolerated procedure well Assessment/Plan Active Problems (Last Updated 07/19/18 @ 08:25 by Ras Patterson MD) Sacral decubitus ulcer, stage III (Chronic) Ulcer of back (Acute) Cellulitis of left lower extremity (Acute) Lower extremity edema (Chronic) Assessment: Same as above. Plan: Debridement of all ulcers done as documented above. Procedure was well- tolerated. Santyl to sacral ulcer and Fibracol to all other ulcers. Change daily. Left lower extremity appears cellulitic. Will start on Keflex and doxycycline. She was however advised to go to the emergency room if she notes worsening lower extremity pain, redness, swelling or feeling of unwell. Continue increased protein intake. Optimal blood sugar control. 3M wraps for edema management. 3M wraps to her right lower extremity and W to be to the left. Advised to elevate lower extremities when seated in bed. She was advised to call with any further questions or concerns. This note was generated with [employer] software. It may contain incorrect words, spelling, and punctuation that were not noted in checking the note before signing.
[2018-07-30 11:09] VITALS: BP 114/56; PULSE 83; RESP 16; TEMP 36.2; BMI 32.6
--- NOTE | 2018-07-30 12:54 | PCM.WC.PN ---
(1) Sacral decubitus ulcer, stage III Status: Chronic Current Visit: Yes Code(s): L89.153 - Pressure ulcer of sacral region, stage 3 (2) Ulcer of back Status: Acute Current Visit: Yes Code(s): L98.429 - Non-pressure chronic ulcer of back with unspecified severity (3) Cellulitis of left lower extremity Status: Acute Current Visit: Yes Code(s): L03.116 - Cellulitis of left lower limb (4) Lower extremity edema Status: Chronic Current Visit: Yes Code(s): R60.0 - Localized edema (5) Type 2 diabetes mellitus without complications Status: Chronic Current Visit: No Code(s): E11.9 - Type 2 diabetes mellitus without complications (6) Ulcer of right lower extremity with fat layer exposed Status: Chronic Current Visit: No Code(s): L97.912 - Non-pressure chronic ulcer of unspecified part of right lower leg with fat layer exposed Type of Wound Chief Complaint: non healing right lower leg ulcer, mid back ulcer and left lower extremity redness and pain. History of Wound: Ms. Hendrix is a 67-year-old with past medical history as documented who had previously been seeing Dr. Sharma here at the wound center for nonhealing right lower extremity ulcer and is now a transfer of care to dc due to several ulcers above the knee. 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 [facility] without any significant improvement. She also has a mid back ulcer. She denies any known precipitating factor or when exactly started. She is noted to have increased redness, warmth and swelling of the left lower extremity. She denies chills, fever all otherwise feeling of unwell. She was hospitalized recently. Progress of Wound: Stable. No new concerns at this time. Right inferior ulcer has healed. - Physical Exam Vital Signs Temp Pulse Resp BP 97.1 F L 83 16 114/56 L 07/30/18 11:09 07/30/18 11:09 07/30/18 11:09 07/30/18 11:09 General: Alert, Oriented x3, Cooperative, No apparent distress HEENT: Atraumatic, Normocephalic Oral: Moist Mucosa Neck: Supple Lungs: Normal air movement Abdomen: Non Tender, Obese Extremities: No cyanosis, Edema Skin: Ulcer/ Wound Wound Measurements and Assessment WC - Nurse 1 - General Ulcer Measurement Start: 07/09/18 10:15 Freq: Status: Active Protocol: Activity Type Activity Date Activity User E-Sign Co-Sign Detail Recorded Client Recorded Date Recorded By Document 07/30/18 11:09 [facility] [id number] 07/30/18 11:22 [facility] 07/30/18 11:09 Wound Center Nurse 1 [Ulcer Assessment] #8 RIGHT MID BACK/RIB -Combined with other wound No -Current Size (cm) - Length 0 -Current Size (cm) - Width 0 -Current Size (cm) - Depth 0 -Total Square Cm 0 -Date of Last Picture (Recall this 07/30/18 field) -Photo Taken Yes -Epithelialization Large 67-100% #7 SACRUM -Combined with other wound No -Current Size (cm) - Length 1.5 -Current Size (cm) - Width 1.2 -Current Size (cm) - Depth 0.3 -Total Square Cm 1.80 -Photo Taken No -Epithelialization None Present -Tunneling No -Undermining/Tunneling No -Circular Undermining No -Exudate Amt Small -Exudate Type Serosanguineous -Wound Margin Thickened -Granulation Amt Small (1-33%) -Granulation Quality [place] -Slough/Fibrin Yes -Necrosis Amt Large (67-100%) -Necrotic Tissue Type Adherent Slough -Texture (Gricel-wound Skin Appearance) Scarring -Moisture (Gricel-wound Skin Appearance Maceration ) Dry/Scaly -Color (Gricel-wound Skin Appearance) Erythema Palor -Temperature (Gricel-wound Skin No Abnormality Appearance) (Pt Warm) -Tenderness on Palpation (Gricel-wound No Skin Appearance) -Ulcer Cleansing Rinsed/ Irrigated with Saline -Foul Odor after Cleansing No -Anesthetic Used 5% Lidocaine Gel #6- RT MORAN SUPERIOR -Combined with other wound No -Current Size (cm) - Length 1.6 -Current Size (cm) - Width 1.6 -Current Size (cm) - Depth 0.1 -Total Square Cm 2.56 -Photo Taken No -Epithelialization Small 1-33% -Tunneling No -Undermining/Tunneling No -Circular Undermining No -Exudate Amt Small -Exudate Type Serosanguineous -Wound Margin Flat & Intact -Granulation Amt Medium (34-66%) -Granulation Quality [place] -Slough/Fibrin Yes -Necrosis Amt Small (1-33%) -Necrotic Tissue Type Adherent Slough -Structure Exposed None/Limited to Skin Breakdown -Texture (Gricel-wound Skin Appearance) Scarring -Moisture (Gricel-wound Skin Appearance Assessed ) Dry/Scaly -Color (Gricel-wound Skin Appearance) Assessed -Temperature (Gricel-wound Skin No Abnormality Appearance) (Pt Warm) -Tenderness on Palpation (Gricel-wound No Skin Appearance) -Ulcer Cleansing Rinsed/ Irrigated with Saline -Foul Odor after Cleansing No -Anesthetic Used 5% Lidocaine Gel #3- RT MORAN -Combined with other wound No -Current Size (cm) - Length 0.1 -Current Size (cm) - Width 0.1 -Current Size (cm) - Depth 0.1 -Total Square Cm 0.01 -Photo Taken No -Epithelialization Large 67-100% -Tunneling No -Undermining/Tunneling No -Circular Undermining No -Exudate Amt None Present -Structure Exposed N/A -Texture (Gricel-wound Skin Appearance) Scarring -Moisture (Gricel-wound Skin Appearance Dry/Scaly ) -Color (Gricel-wound Skin Appearance) Assessed -Temperature (Gricel-wound Skin No Abnormality Appearance) (Pt Warm) -Tenderness on Palpation (Gricel-wound No Skin Appearance) -Ulcer Cleansing Rinsed/ Irrigated with Saline -Foul Odor after Cleansing No -Anesthetic Used 5% Lidocaine Gel [Edema Assessment] -Lower Limb Edema Present Yes -Right Calf (cm) 44.4 -Right Ankle (cm) 28 -Left Calf (cm) 44.2 -Left Ankle (cm) 27.5 WC - Nurse 2 - General Ulcer CM Notes Start: 07/09/18 10:15 Freq: Status: Active Protocol: Activity Type Activity Date Activity User E-Sign Co-Sign Detail Recorded Client Recorded Date Recorded By Document 07/30/18 11:34 MW [id number] 07/30/18 11:44 MW 07/30/18 11:34 Wound Center Nurse 2 [Procedure/Treatment] #8 RIGHT MID BACK/RIB -Time 11:35 -Correct Patient Yes -Correct Side, Site, Position Yes -Correct Procedure Yes -Procedure Performed No -Post Debridement Size (cm) - Length 0 -Post Debridement Size (cm) - Width 0 -Post Debridement Size (cm) - Depth 0 -Total Square Cm 0 -Wound/Ulcer Outcome Healed- Epithelialized #7 SACRUM -Time 11:35 -Correct Patient Yes -Correct Side, Site, Position Yes -Correct Procedure Yes -Procedure Performed Yes -Type of Procedure Debridement -Clinical Debridement Subcutaneous -Post Debridement Size (cm) - Length 2.1 -Post Debridement Size (cm) - Width 0.5 -Post Debridement Size (cm) - Depth 0.3 -Total Square Cm 1.05 -Wound/Ulcer Outcome Not Healed -Ulcer Cleansing Rinsed/ Irrigated with Saline -Foul Odor after Cleansing No -Bioengineered Tissue No -Bleeding Controlled with Pressure -Offloading No -Treatment Response Procedure Tolerated Well #6- RT MORAN SUPERIOR -Time 11:35 -Correct Patient Yes -Correct Side, Site, Position Yes -Correct Procedure Yes -Procedure Performed Yes -Type of Procedure Debridement -Clinical Debridement Subcutaneous -Post Debridement Size (cm) - Length 1.2 -Post Debridement Size (cm) - Width 1.6 -Post Debridement Size (cm) - Depth 0.1 -Total Square Cm 1.92 -Wound/Ulcer Outcome Not Healed -Ulcer Cleansing Rinsed/ Irrigated with Saline -Foul Odor after Cleansing No -Bioengineered Tissue No -Bleeding Controlled with Pressure -Offloading No -Treatment Response Procedure Tolerated Well #3- RT MORAN -Time 11:35 -Correct Patient Yes -Correct Side, Site, Position Yes -Correct Procedure Yes -Procedure Performed Yes -Clinical Debridement Selective -Post Debridement Size (cm) - Length 0 -Post Debridement Size (cm) - Width 0 -Post Debridement Size (cm) - Depth 0 -Total Square Cm 0 -Wound/Ulcer Outcome Healed- Epithelialized -Ulcer Cleansing Rinsed/ Irrigated with Saline -Foul Odor after Cleansing No -Bioengineered Tissue No -Bleeding Controlled with Pressure -Offloading No -Treatment Response Procedure Tolerated Well [See Physician Procedure note for Specifics] Pain Scale: 0-10 Numeric [Pain] -Is Patient Pain Free? Yes Musculoskeletal: No Muscle Wasting Neurological: Cranial nerves II-XII grossly intact Psych/Mental Status: Normal Affect Debridement Note Post-Debridement Measurements/Treatment WC - Nurse 2 - General Ulcer CM Notes Start: 07/09/18 10:15 Freq: Status: Active Protocol: Activity Type Activity Date Activity User E-Sign Co-Sign Detail Recorded Client Recorded Date Recorded By Document 01/03/19 13:23 DV [id number] 07/09/18 13:24 DV Document 07/16/18 11:13 DV [id number] 07/16/18 11:21 DV Document 07/23/18 11:05 MW [id number] 07/23/18 11:21 MW Document 07/30/18 11:34 MW [id number] 07/30/18 11:44 MW 07/09/18 07/16/18 07/23/18 13:23 11:13 11:05 Wound Center Nurse 2 #8 RIGHT MID BACK/RIB -Time 11:06 -Correct Patient Yes -Correct Side, Site, Position Yes -Correct Procedure Yes -Procedure Performed Yes -Type of Procedure Debridement -Clinical Debridement Subcutaneous -Post Debridement Size (cm) - Length 1.6 -Post Debridement Size (cm) - Width 1.9 -Post Debridement Size (cm) - Depth 0.1 -Total Square Cm 3.04 -Wound/Ulcer Outcome Not Healed -Ulcer Cleansing Rinsed/ Irrigated with Saline -Foul Odor after Cleansing No -Bioengineered Tissue No -Bleeding Controlled with Pressure -Offloading Yes -Treatment Response Procedure Tolerated Well #7 SACRUM -Time 11:05 -Correct Patient Yes -Correct Side, Site, Position Yes -Correct Procedure Yes -Procedure Performed Yes -Type of Procedure Debridement -Clinical Debridement Subcutaneous -Post Debridement Size (cm) - Length 2.5 -Post Debridement Size (cm) - Width 1.5 -Post Debridement Size (cm) - Depth 0.2 -Total Square Cm 3.75 -Wound/Ulcer Outcome Not Healed -Ulcer Cleansing Rinsed/ Irrigated with Saline -Foul Odor after Cleansing No -Bioengineered Tissue No -Bleeding Controlled with Pressure -Offloading Yes -Treatment Response Procedure Tolerated Well #6- RT MORAN SUPERIOR -Time 11:15 11:07 -Correct Patient Yes Yes -Correct Side, Site, Position Yes Yes -Correct Procedure Yes Yes -Procedure Performed Yes Yes -Type of Procedure Debridement Debridement -Clinical Debridement Subcutaneous Subcutaneous -Post Debridement Size (cm) - Length 2.4 2.2 -Post Debridement Size (cm) - Width 3.5 2.5 -Post Debridement Size (cm) - Depth 0.1 0.1 -Total Square Cm 8.40 5.50 -Wound/Ulcer Outcome Not Healed Not Healed -Ulcer Cleansing Rinsed/ Rinsed/ Irrigated with Irrigated with Saline Saline -Foul Odor after Cleansing No No -Bioengineered Tissue No No -Bleeding Controlled with Pressure Pressure -Offloading No No -Treatment Response Procedure Procedure Tolerated Well Tolerated Well #3- RT MORAN -Time 13:23 11:14 11:19 -Correct Patient Yes Yes Yes -Correct Side, Site, Position Yes Yes Yes -Correct Procedure Yes Yes Yes -Procedure Performed Yes Yes Yes -Type of Procedure Debridement Debridement Debridement -Clinical Debridement Subcutaneous Subcutaneous Subcutaneous -Post Debridement Size (cm) - Length 1.4 1.2 1.0 -Post Debridement Size (cm) - Width 0.4 0.5 0.3 -Post Debridement Size (cm) - Depth 0.1 0.1 0.1 -Total Square Cm 0.56 0.60 0.30 -Wound/Ulcer Outcome Not Healed Not Healed Not Healed -Ulcer Cleansing Rinsed/ Rinsed/ Rinsed/ Irrigated with Irrigated with Irrigated with Saline Saline Saline -Foul Odor after Cleansing No No No -Bioengineered Tissue No No No -Bleeding Controlled with Pressure Pressure Pressure -Offloading No No No -Treatment Response Procedure Procedure Procedure Tolerated Well Tolerated Well Tolerated Well Pain Scale: 0-10 Numeric Is Patient Pain Free? Yes Yes Yes 07/30/18 11:34 Wound Center Nurse 2 #8 RIGHT MID BACK/RIB -Time 11:35 -Correct Patient Yes -Correct Side, Site, Position Yes -Correct Procedure Yes -Procedure Performed No -Type of Procedure -Clinical Debridement -Post Debridement Size (cm) - Length 0 -Post Debridement Size (cm) - Width 0 -Post Debridement Size (cm) - Depth 0 -Total Square Cm 0 -Wound/Ulcer Outcome Healed- Epithelialized -Ulcer Cleansing -Foul Odor after Cleansing -Bioengineered Tissue -Bleeding Controlled with -Offloading -Treatment Response #7 SACRUM -Time 11:35 -Correct Patient Yes -Correct Side, Site, Position Yes -Correct Procedure Yes -Procedure Performed Yes -Type of Procedure Debridement -Clinical Debridement Subcutaneous -Post Debridement Size (cm) - Length 2.1 -Post Debridement Size (cm) - Width 0.5 -Post Debridement Size (cm) - Depth 0.3 -Total Square Cm 1.05 -Wound/Ulcer Outcome Not Healed -Ulcer Cleansing Rinsed/ Irrigated with Saline -Foul Odor after Cleansing No -Bioengineered Tissue No -Bleeding Controlled with Pressure -Offloading No -Treatment Response Procedure Tolerated Well #6- RT MORAN SUPERIOR -Time 11:35 -Correct Patient Yes -Correct Side, Site, Position Yes -Correct Procedure Yes -Procedure Performed Yes -Type of Procedure Debridement -Clinical Debridement Subcutaneous -Post Debridement Size (cm) - Length 1.2 -Post Debridement Size (cm) - Width 1.6 -Post Debridement Size (cm) - Depth 0.1 -Total Square Cm 1.92 -Wound/Ulcer Outcome Not Healed -Ulcer Cleansing Rinsed/ Irrigated with Saline -Foul Odor after Cleansing No -Bioengineered Tissue No -Bleeding Controlled with Pressure -Offloading No -Treatment Response Procedure Tolerated Well #3- RT MORAN -Time 11:35 -Correct Patient Yes -Correct Side, Site, Position Yes -Correct Procedure Yes -Procedure Performed Yes -Type of Procedure -Clinical Debridement Selective -Post Debridement Size (cm) - Length 0 -Post Debridement Size (cm) - Width 0 -Post Debridement Size (cm) - Depth 0 -Total Square Cm 0 -Wound/Ulcer Outcome Healed- Epithelialized -Ulcer Cleansing Rinsed/ Irrigated with Saline -Foul Odor after Cleansing No -Bioengineered Tissue No -Bleeding Controlled with Pressure -Offloading No -Treatment Response Procedure Tolerated Well Pain Scale: 0-10 Numeric Is Patient Pain Free? Yes Wound debrided: Sacral ulcer Wound Grade/Stage: Stage III Type of Debridement: Excisional debridement Anesthesia Used: 4% Lidocaine Solution Depth: Down to and including healthy tissue, in the subcutaneous layer Percentage of wound debrided: 100 Instrument Used: 3mm curette Tissue Removed: Slough and devitalized tissue Severity: Fat Layer Exposed Amount of bleeding with debridement: Mild Bleeding Controlled with: Pressure Patient tolerated procedure well - Additional Wound Wound debrided: Right lower extremity superior Wound Grade/Stage: Stage II Type of Debridement: Excisional debridement Anesthesia Used: 4% Lidocaine Solution Depth: Down to and including healthy tissue, in the subcutaneous layer Percentage of wound debrided: 100 Instrument Used: 3mm curette Tissue Removed: Slough and devitalized tissue Severity: Fat Layer Exposed Amount of bleeding with debridement: Mild Bleeding Controlled with: Pressure Patient tolerated procedure: Patient tolerated procedure well - Additional Wound Wound debrided: Right lower extremity inferior Wound Grade/Stage: Stage II Type of Debridement: Selective debridement Anesthesia Used: 4% Lidocaine Solution Depth: Down to and including healthy tissue Percentage of wound debrided: 80 Instrument Used: 3mm curette Tissue Removed: Devitalized tissue Severity: Limited To Skin Breakdown Amount of bleeding with debridement: None Patient tolerated procedure: Patient tolerated procedure well Assessment/Plan Active Problems (Last Updated 07/19/18 @ 08:25 by Ras Patterson MD) Sacral decubitus ulcer, stage III (Chronic) Ulcer of back (Acute) Cellulitis of left lower extremity (Acute) Lower extremity edema (Chronic) Assessment: Same as above. Right mid back has healed. Plan: Debridement of all ulcers done as documented above. Procedure was well-tolerated. Continue Santyl to sacral ulcer and Fibrocol to right superior ulcer. Change daily. Left lower extremity cellulitis has resolved. Left heel deep tissue injury however appears to be worsening. No opening. Continue increased protein intake. Optimal blood sugar control. 3M wraps for edema management. 3M wraps to her right lower extremity and Tubigrip to the left. Continue offloading left heel and monitor closely. Advised to elevate lower extremities when seated in bed. She was advised to call with any further questions or concerns. This note was generated with [employer] dictation software. It may contain incorrect words, spelling, and punctuation that were not noted in checking the note before signing.
--- NOTE | 2018-07-30 12:58 | PN.PCM_ITS ---
(1) Sacral decubitus ulcer, stage III Status: Chronic Current Visit: Yes Code(s): L89.153 - Pressure ulcer of sacral region, stage 3 (2) Ulcer of back Status: Acute Current Visit: Yes Code(s): L98.429 - Non-pressure chronic ulcer of back with unspecified severity (3) Cellulitis of left lower extremity Status: Acute Current Visit: Yes Code(s): L03.116 - Cellulitis of left lower limb (4) Lower extremity edema Status: Chronic Current Visit: Yes Code(s): R60.0 - Localized edema (5) Type 2 diabetes mellitus without complications Status: Chronic Current Visit: No Code(s): E11.9 - Type 2 diabetes mellitus without complications (6) Ulcer of right lower extremity with fat layer exposed Status: Chronic Current Visit: No Code(s): L97.912 - Non-pressure chronic ulcer of unspecified part of right lower leg with fat layer exposed Type of Wound Chief Complaint: non healing right lower leg ulcer, mid back ulcer and left lower extremity redness and pain. History of Wound: Ms. Hendrix is a 67-year-old with past medical history as documented who had previously been seeing Dr. Sharma here at the wound center for nonhealing right lower extremity ulcer and is now a transfer of care to [facility] due to several ulcers above the knee. 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 [facility] without any significant improvement. She also has a mid back ulcer. She denies any known precipitating factor or when exactly started. She is noted to have increased redness, warmth and swelling of the left lower extremity. She denies chills, fever all otherwise feeling of unwell. She was hospitalized recently. Progress of Wound: Stable. No new concerns at this time. Right inferior ulcer has healed. - Physical Exam Vital Signs Temp Pulse Resp BP 97.1 F L 83 16 114/56 L 07/30/18 11:09 07/30/18 11:09 07/30/18 11:09 07/30/18 11:09 General: Alert, Oriented x3, Cooperative, No apparent distress HEENT: Atraumatic, Normocephalic Oral: Moist Mucosa Neck: Supple Lungs: Normal air movement Abdomen: Non Tender, Obese Extremities: No cyanosis, Edema Skin: Ulcer/ Wound Wound Measurements and Assessment WC - Nurse 1 - General Ulcer Measurement Start: 07/09/18 10:15 Freq: Status: Active Protocol: Activity Type Activity Date Activity User E-Sign Co-Sign Detail Recorded Client Recorded Date Recorded By Document 07/30/18 11:09 [facility] [id number] 07/30/18 11:22 [facility] 07/30/18 11:09 Wound Center Nurse 1 [Ulcer Assessment] #8 RIGHT MID BACK/RIB -Combined with other wound No -Current Size (cm) - Length 0 -Current Size (cm) - Width 0 -Current Size (cm) - Depth 0 -Total Square Cm 0 -Date of Last Picture (Recall this 07/30/18 field) -Photo Taken Yes -Epithelialization Large 67-100% #7 SACRUM -Combined with other wound No -Current Size (cm) - Length 1.5 -Current Size (cm) - Width 1.2 -Current Size (cm) - Depth 0.3 -Total Square Cm 1.80 -Photo Taken No -Epithelialization None Present -Tunneling No -Undermining/Tunneling No -Circular Undermining No -Exudate Amt Small -Exudate Type Serosanguineous -Wound Margin Thickened -Granulation Amt Small (1-33%) -Granulation Quality [place] -Slough/Fibrin Yes -Necrosis Amt Large (67-100%) -Necrotic Tissue Type Adherent Slough -Texture (Gricel-wound Skin Appearance) Scarring -Moisture (Gricel-wound Skin Appearance Maceration ) Dry/Scaly -Color (Gricel-wound Skin Appearance) Erythema Palor -Temperature (Gricel-wound Skin No Abnormality Appearance) (Pt Warm) -Tenderness on Palpation (Gricel-wound No Skin Appearance) -Ulcer Cleansing Rinsed/ Irrigated with Saline -Foul Odor after Cleansing No -Anesthetic Used 5% Lidocaine Gel #6- RT MORAN SUPERIOR -Combined with other wound No -Current Size (cm) - Length 1.6 -Current Size (cm) - Width 1.6 -Current Size (cm) - Depth 0.1 -Total Square Cm 2.56 -Photo Taken No -Epithelialization Small 1-33% -Tunneling No -Undermining/Tunneling No -Circular Undermining No -Exudate Amt Small -Exudate Type Serosanguineous -Wound Margin Flat & Intact -Granulation Amt Medium (34-66%) -Granulation Quality [place] -Slough/Fibrin Yes -Necrosis Amt Small (1-33%) -Necrotic Tissue Type Adherent Slough -Structure Exposed None/Limited to Skin Breakdown -Texture (Gricel-wound Skin Appearance) Scarring -Moisture (Gricel-wound Skin Appearance Assessed ) Dry/Scaly -Color (Gricel-wound Skin Appearance) Assessed -Temperature (Gricel-wound Skin No Abnormality Appearance) (Pt Warm) -Tenderness on Palpation (Gricel-wound No Skin Appearance) -Ulcer Cleansing Rinsed/ Irrigated with Saline -Foul Odor after Cleansing No -Anesthetic Used 5% Lidocaine Gel #3- RT MORAN -Combined with other wound No -Current Size (cm) - Length 0.1 -Current Size (cm) - Width 0.1 -Current Size (cm) - Depth 0.1 -Total Square Cm 0.01 -Photo Taken No -Epithelialization Large 67-100% -Tunneling No -Undermining/Tunneling No -Circular Undermining No -Exudate Amt None Present -Structure Exposed N/A -Texture (Gricel-wound Skin Appearance) Scarring -Moisture (Gricel-wound Skin Appearance Dry/Scaly ) -Color (Gricel-wound Skin Appearance) Assessed -Temperature (Gricel-wound Skin No Abnormality Appearance) (Pt Warm) -Tenderness on Palpation (Gricel-wound No Skin Appearance) -Ulcer Cleansing Rinsed/ Irrigated with Saline -Foul Odor after Cleansing No -Anesthetic Used 5% Lidocaine Gel [Edema Assessment] -Lower Limb Edema Present Yes -Right Calf (cm) 44.4 -Right Ankle (cm) 28 -Left Calf (cm) 44.2 -Left Ankle (cm) 27.5 WC - Nurse 2 - General Ulcer CM Notes Start: 07/09/18 10:15 Freq: Status: Active Protocol: Activity Type Activity Date Activity User E-Sign Co-Sign Detail Recorded Client Recorded Date Recorded By Document 07/30/18 11:34 MW [id number] 07/30/18 11:44 MW 07/30/18 11:34 Wound Center Nurse 2 [Procedure/Treatment] #8 RIGHT MID BACK/RIB -Time 11:35 -Correct Patient Yes -Correct Side, Site, Position Yes -Correct Procedure Yes -Procedure Performed No -Post Debridement Size (cm) - Length 0 -Post Debridement Size (cm) - Width 0 -Post Debridement Size (cm) - Depth 0 -Total Square Cm 0 -Wound/Ulcer Outcome Healed- Epithelialized #7 SACRUM -Time 11:35 -Correct Patient Yes -Correct Side, Site, Position Yes -Correct Procedure Yes -Procedure Performed Yes -Type of Procedure Debridement -Clinical Debridement Subcutaneous -Post Debridement Size (cm) - Length 2.1 -Post Debridement Size (cm) - Width 0.5 -Post Debridement Size (cm) - Depth 0.3 -Total Square Cm 1.05 -Wound/Ulcer Outcome Not Healed -Ulcer Cleansing Rinsed/ Irrigated with Saline -Foul Odor after Cleansing No -Bioengineered Tissue No -Bleeding Controlled with Pressure -Offloading No -Treatment Response Procedure Tolerated Well #6- RT MORAN SUPERIOR -Time 11:35 -Correct Patient Yes -Correct Side, Site, Position Yes -Correct Procedure Yes -Procedure Performed Yes -Type of Procedure Debridement -Clinical Debridement Subcutaneous -Post Debridement Size (cm) - Length 1.2 -Post Debridement Size (cm) - Width 1.6 -Post Debridement Size (cm) - Depth 0.1 -Total Square Cm 1.92 -Wound/Ulcer Outcome Not Healed -Ulcer Cleansing Rinsed/ Irrigated with Saline -Foul Odor after Cleansing No -Bioengineered Tissue No -Bleeding Controlled with Pressure -Offloading No -Treatment Response Procedure Tolerated Well #3- RT MORAN -Time 11:35 -Correct Patient Yes -Correct Side, Site, Position Yes -Correct Procedure Yes -Procedure Performed Yes -Clinical Debridement Selective -Post Debridement Size (cm) - Length 0 -Post Debridement Size (cm) - Width 0 -Post Debridement Size (cm) - Depth 0 -Total Square Cm 0 -Wound/Ulcer Outcome Healed- Epithelialized -Ulcer Cleansing Rinsed/ Irrigated with Saline -Foul Odor after Cleansing No -Bioengineered Tissue No -Bleeding Controlled with Pressure -Offloading No -Treatment Response Procedure Tolerated Well [See Physician Procedure note for Specifics] Pain Scale: 0-10 Numeric [Pain] -Is Patient Pain Free? Yes Musculoskeletal: No Muscle Wasting Neurological: Cranial nerves II-XII grossly intact Psych/Mental Status: Normal Affect Debridement Note Post-Debridement Measurements/Treatment WC - Nurse 2 - General Ulcer CM Notes Start: 07/09/18 10:15 Freq: Status: Active Protocol: Activity Type Activity Date Activity User E-Sign Co-Sign Detail Recorded Client Recorded Date Recorded By Document 01/03/19 13:23 DV [id number] 07/09/18 13:24 DV Document 07/16/18 11:13 DV [id number] 07/16/18 11:21 DV Document 07/23/18 11:05 MW [id number] 07/23/18 11:21 MW Document 07/30/18 11:34 MW [id number] 07/30/18 11:44 MW 07/09/18 07/16/18 07/23/18 13:23 11:13 11:05 Wound Center Nurse 2 #8 RIGHT MID BACK/RIB -Time 11:06 -Correct Patient Yes -Correct Side, Site, Position Yes -Correct Procedure Yes -Procedure Performed Yes -Type of Procedure Debridement -Clinical Debridement Subcutaneous -Post Debridement Size (cm) - Length 1.6 -Post Debridement Size (cm) - Width 1.9 -Post Debridement Size (cm) - Depth 0.1 -Total Square Cm 3.04 -Wound/Ulcer Outcome Not Healed -Ulcer Cleansing Rinsed/ Irrigated with Saline -Foul Odor after Cleansing No -Bioengineered Tissue No -Bleeding Controlled with Pressure -Offloading Yes -Treatment Response Procedure Tolerated Well #7 SACRUM -Time 11:05 -Correct Patient Yes -Correct Side, Site, Position Yes -Correct Procedure Yes -Procedure Performed Yes -Type of Procedure Debridement -Clinical Debridement Subcutaneous -Post Debridement Size (cm) - Length 2.5 -Post Debridement Size (cm) - Width 1.5 -Post Debridement Size (cm) - Depth 0.2 -Total Square Cm 3.75 -Wound/Ulcer Outcome Not Healed -Ulcer Cleansing Rinsed/ Irrigated with Saline -Foul Odor after Cleansing No -Bioengineered Tissue No -Bleeding Controlled with Pressure -Offloading Yes -Treatment Response Procedure Tolerated Well #6- RT MORAN SUPERIOR -Time 11:15 11:07 -Correct Patient Yes Yes -Correct Side, Site, Position Yes Yes -Correct Procedure Yes Yes -Procedure Performed Yes Yes -Type of Procedure Debridement Debridement -Clinical Debridement Subcutaneous Subcutaneous -Post Debridement Size (cm) - Length 2.4 2.2 -Post Debridement Size (cm) - Width 3.5 2.5 -Post Debridement Size (cm) - Depth 0.1 0.1 -Total Square Cm 8.40 5.50 -Wound/Ulcer Outcome Not Healed Not Healed -Ulcer Cleansing Rinsed/ Rinsed/ Irrigated with Irrigated with Saline Saline -Foul Odor after Cleansing No No -Bioengineered Tissue No No -Bleeding Controlled with Pressure Pressure -Offloading No No -Treatment Response Procedure Procedure Tolerated Well Tolerated Well #3- RT MORAN -Time 13:23 11:14 11:19 -Correct Patient Yes Yes Yes -Correct Side, Site, Position Yes Yes Yes -Correct Procedure Yes Yes Yes -Procedure Performed Yes Yes Yes -Type of Procedure Debridement Debridement Debridement -Clinical Debridement Subcutaneous Subcutaneous Subcutaneous -Post Debridement Size (cm) - Length 1.4 1.2 1.0 -Post Debridement Size (cm) - Width 0.4 0.5 0.3 -Post Debridement Size (cm) - Depth 0.1 0.1 0.1 -Total Square Cm 0.56 0.60 0.30 -Wound/Ulcer Outcome Not Healed Not Healed Not Healed -Ulcer Cleansing Rinsed/ Rinsed/ Rinsed/ Irrigated with Irrigated with Irrigated with Saline Saline Saline -Foul Odor after Cleansing No No No -Bioengineered Tissue No No No -Bleeding Controlled with Pressure Pressure Pressure -Offloading No No No -Treatment Response Procedure Procedure Procedure Tolerated Well Tolerated Well Tolerated Well Pain Scale: 0-10 Numeric Is Patient Pain Free? Yes Yes Yes 07/30/18 11:34 Wound Center Nurse 2 #8 RIGHT MID BACK/RIB -Time 11:35 -Correct Patient Yes -Correct Side, Site, Position Yes -Correct Procedure Yes -Procedure Performed No -Type of Procedure -Clinical Debridement -Post Debridement Size (cm) - Length 0 -Post Debridement Size (cm) - Width 0 -Post Debridement Size (cm) - Depth 0 -Total Square Cm 0 -Wound/Ulcer Outcome Healed- Epithelialized -Ulcer Cleansing -Foul Odor after Cleansing -Bioengineered Tissue -Bleeding Controlled with -Offloading -Treatment Response #7 SACRUM -Time 11:35 -Correct Patient Yes -Correct Side, Site, Position Yes -Correct Procedure Yes -Procedure Performed Yes -Type of Procedure Debridement -Clinical Debridement Subcutaneous -Post Debridement Size (cm) - Length 2.1 -Post Debridement Size (cm) - Width 0.5 -Post Debridement Size (cm) - Depth 0.3 -Total Square Cm 1.05 -Wound/Ulcer Outcome Not Healed -Ulcer Cleansing Rinsed/ Irrigated with Saline -Foul Odor after Cleansing No -Bioengineered Tissue No -Bleeding Controlled with Pressure -Offloading No -Treatment Response Procedure Tolerated Well #6- RT MORAN SUPERIOR -Time 11:35 -Correct Patient Yes -Correct Side, Site, Position Yes -Correct Procedure Yes -Procedure Performed Yes -Type of Procedure Debridement -Clinical Debridement Subcutaneous -Post Debridement Size (cm) - Length 1.2 -Post Debridement Size (cm) - Width 1.6 -Post Debridement Size (cm) - Depth 0.1 -Total Square Cm 1.92 -Wound/Ulcer Outcome Not Healed -Ulcer Cleansing Rinsed/ Irrigated with Saline -Foul Odor after Cleansing No -Bioengineered Tissue No -Bleeding Controlled with Pressure -Offloading No -Treatment Response Procedure Tolerated Well #3- RT MORAN -Time 11:35 -Correct Patient Yes -Correct Side, Site, Position Yes -Correct Procedure Yes -Procedure Performed Yes -Type of Procedure -Clinical Debridement Selective -Post Debridement Size (cm) - Length 0 -Post Debridement Size (cm) - Width 0 -Post Debridement Size (cm) - Depth 0 -Total Square Cm 0 -Wound/Ulcer Outcome Healed- Epithelialized -Ulcer Cleansing Rinsed/ Irrigated with Saline -Foul Odor after Cleansing No -Bioengineered Tissue No -Bleeding Controlled with Pressure -Offloading No -Treatment Response Procedure Tolerated Well Pain Scale: 0-10 Numeric Is Patient Pain Free? Yes Wound debrided: Sacral ulcer Wound Grade/Stage: Stage III Type of Debridement: Excisional debridement Anesthesia Used: 4% Lidocaine Solution Depth: Down to and including healthy tissue, in the subcutaneous layer Percentage of wound debrided: 100 Instrument Used: 3mm curette Tissue Removed: Slough and devitalized tissue Severity: Fat Layer Exposed Amount of bleeding with debridement: Mild Bleeding Controlled with: Pressure Patient tolerated procedure well - Additional Wound Wound debrided: Right lower extremity superior Wound Grade/Stage: Stage II Type of Debridement: Excisional debridement Anesthesia Used: 4% Lidocaine Solution Depth: Down to and including healthy tissue, in the subcutaneous layer Percentage of wound debrided: 100 Instrument Used: 3mm curette Tissue Removed: Slough and devitalized tissue Severity: Fat Layer Exposed Amount of bleeding with debridement: Mild Bleeding Controlled with: Pressure Patient tolerated procedure: Patient tolerated procedure well - Additional Wound Wound debrided: Right lower extremity inferior Wound Grade/Stage: Stage II Type of Debridement: Selective debridement Anesthesia Used: 4% Lidocaine Solution Depth: Down to and including healthy tissue Percentage of wound debrided: 80 Instrument Used: 3mm curette Tissue Removed: Devitalized tissue Severity: Limited To Skin Breakdown Amount of bleeding with debridement: None Patient tolerated procedure: Patient tolerated procedure well Assessment/Plan Active Problems (Last Updated 07/19/18 @ 08:25 by Ras Patterson MD) Sacral decubitus ulcer, stage III (Chronic) Ulcer of back (Acute) Cellulitis of left lower extremity (Acute) Lower extremity edema (Chronic) Assessment: Same as above. Right mid back has healed. Plan: Debridement of all ulcers done as documented above. Procedure was well-t olerated. Continue Santyl to sacral ulcer and Fibrocol to right superior ulcer. Change daily. Left lower extremity cellulitis has resolved. Left heel deep tissue injury however appears to be worsening. No opening. Continue increased protein intake. Optimal blood sugar control. 3M wraps for edema management. 3M wraps to her right lower extremity and Tubigrip to the left. Continue offloading left heel and monitor closely. Advised to elevate lower extremities when seated in bed. She was advised to call with any further questions or concerns. This note was generated with [employer] software. It may contain incorrect words, spelling, and punctuation that were not noted in checking the note before signing.
[2018-08-06 11:26] VITALS: BP 136/67; PULSE 75; RESP 16; TEMP 37.4; BMI 32.6
--- NOTE | 2018-08-06 11:32 | WC ---
LEFT HEEL DEEP TISSUE INJURY NOTED. FLUID FILLED BLISTERED NOTED SKIN INTACT. 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
--- NOTE | 2018-08-06 12:12 | PCM.WC.PN ---
(1) Sacral decubitus ulcer, stage III Status: Chronic Current Visit: Yes Code(s): L89.153 - Pressure ulcer of sacral region, stage 3 (2) Ulcer of back Status: Acute Current Visit: Yes Code(s): L98.429 - Non-pressure chronic ulcer of back with unspecified severity (3) Cellulitis of left lower extremity Status: Acute Current Visit: Yes Code(s): L03.116 - Cellulitis of left lower limb (4) Lower extremity edema Status: Chronic Current Visit: Yes Code(s): R60.0 - Localized edema (5) Type 2 diabetes mellitus without complications Status: Chronic Current Visit: No Code(s): E11.9 - Type 2 diabetes mellitus without complications (6) Ulcer of right lower extremity with fat layer exposed Status: Chronic Current Visit: No Code(s): L97.912 - Non-pressure chronic ulcer of unspecified part of right lower leg with fat layer exposed Type of Wound Chief Complaint: non healing right lower leg ulcer, mid back ulcer and left lower extremity redness and pain. History of Wound: Ms. Hendrix is a 67-year-old with past medical history as documented who had previously been seeing Dr. Sharma here at the wound center for nonhealing right lower extremity ulcer and is now a transfer of care [place] due to several ulcers above the knee. 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 She has had some dressing done by the snf without any significant improvement. She also has a mid back ulcer. She denies any known precipitating factor or when exactly started. She is noted to have increased redness, warmth and swelling of the left lower extremity. She denies chills, fever all otherwise feeling of unwell. She was hospitalized recently. Progress of Wound: Stable. No new concerns at this time. - Physical Exam Vital Signs Temp Pulse Resp BP 99.3 F H 75 16 136/67 H 08/06/18 11:26 08/06/18 11:26 08/06/18 11:26 08/06/18 11:26 General: Alert, No apparent distress HEENT: Atraumatic, Normocephalic Oral: Moist Mucosa Neck: Supple Lungs: Normal air movement Abdomen: Non Tender Extremities: No cyanosis, Edema Skin: Ulcer/ Wound Wound Measurements and Assessment WC - Nurse 1 - General Ulcer Measurement Start: 07/09/18 10:15 Freq: Status: Active Protocol: Activity Type Activity Date Activity User E-Sign Co-Sign Detail Recorded Client Recorded Date Recorded By Document 08/06/18 11:26 [facility] [id number] 08/06/18 11:38 [facility] 08/06/18 11:26 Wound Center Nurse 1 [Ulcer Assessment] #7 SACRUM -Combined with other wound No -Current Size (cm) - Length 1.8 -Current Size (cm) - Width 1.1 -Current Size (cm) - Depth 0.3 -Total Square Cm 1.98 -Tunneling No -Undermining/Tunneling No -Circular Undermining No -Exudate Amt Small -Exudate Type Serosanguineous -Wound Margin Thickened & Rolled Under -Granulation Amt Large (67-100%) -Granulation Quality [place] -Slough/Fibrin Yes -Necrosis Amt Small (1-33%) -Necrotic Tissue Type Adherent Slough -Structure Exposed N/A -Texture (Gricel-wound Skin Appearance) Assessed -Moisture (Gricel-wound Skin Appearance Maceration ) -Color (Gricel-wound Skin Appearance) Assessed -Temperature (Gricel-wound Skin No Abnormality Appearance) (Pt Warm) -Tenderness on Palpation (Gricel-wound No Skin Appearance) -Ulcer Cleansing Wound Cleanser -Foul Odor after Cleansing No -Anesthetic Used 5% Lidocaine Gel #6- RT MORAN SUPERIOR -Combined with other wound No -Current Size (cm) - Length 1.5 -Current Size (cm) - Width 1.4 -Current Size (cm) - Depth 0.2 -Total Square Cm 2.10 -Tunneling No -Undermining/Tunneling No -Circular Undermining No -Exudate Amt Small -Exudate Type Serosanguineous -Wound Margin Distinct, Outline Attached -Granulation Amt Large (67-100%) -Granulation Quality [place] -Slough/Fibrin Yes -Necrosis Amt Small (1-33%) -Necrotic Tissue Type Adherent Slough -Structure Exposed N/A -Texture (Gricel-wound Skin Appearance) Assessed -Moisture (Gricel-wound Skin Appearance Assessed ) -Color (Rgicel-wound Skin Appearance) Assessed -Temperature (Gricel-wound Skin No Abnormality Appearance) (Pt Warm) -Tenderness on Palpation (Gricel-wound No Skin Appearance) -Ulcer Cleansing Wound Cleanser -Anesthetic Used 5% Lidocaine Gel [Edema Assessment] -Lower Limb Edema Present Yes -Right Calf (cm) 36.1 -Right Ankle (cm) 25.1 -Point of measurement (cm from the 42.8 medial instep) -Point of Measurement (cm from the 27 medial instep) 08/06/18 11:32 Wound Center by Jaylin Chin LEFT HEEL DEEP TISSUE INJURY NOTED. FLUID FILLED BLISTERED NOTED SKIN INTACT. CROWN POUNCER AND DOCTOR AWARE Initialized on 08/06/18 11:32 - END OF NOTE WC - Nurse 2 - General Ulcer CM Notes Start: 07/09/18 10:15 Freq: Status: Active Protocol: Activity Type Activity Date Activity User E-Sign Co-Sign Detail Recorded Client Recorded Date Recorded By Document 08/06/18 11:46 MW [id number] 08/06/18 11:54 MW 08/06/18 11:46 Wound Center Nurse 2 [Procedure/Treatment] #7 SACRUM -Time 11:46 -Correct Patient Yes -Correct Side, Site, Position Yes -Correct Procedure Yes -Procedure Performed Yes -Type of Procedure Debridement -Clinical Debridement Subcutaneous -Post Debridement Size (cm) - Length 1.8 -Post Debridement Size (cm) - Width 0.6 -Post Debridement Size (cm) - Depth 0.2 -Total Square Cm 1.08 -Wound/Ulcer Outcome Not Healed -Ulcer Cleansing Rinsed/ Irrigated with Saline -Foul Odor after Cleansing No -Bioengineered Tissue No -Bleeding Controlled with Pressure -Offloading No -Treatment Response Procedure Tolerated Well #6- RT MORAN SUPERIOR -Time 11:47 -Correct Patient Yes -Correct Side, Site, Position Yes -Correct Procedure Yes -Procedure Performed Yes -Type of Procedure Debridement -Clinical Debridement Subcutaneous -Post Debridement Size (cm) - Length 1.6 -Post Debridement Size (cm) - Width 0.5 -Post Debridement Size (cm) - Depth 0.1 -Total Square Cm 0.80 -Wound/Ulcer Outcome Not Healed -Ulcer Cleansing Rinsed/ Irrigated with Saline -Foul Odor after Cleansing No -Bioengineered Tissue No -Bleeding Controlled with Pressure -Offloading No -Treatment Response Procedure Tolerated Well [See Physician Procedure note for Specifics] Pain Scale: 0-10 Numeric [Pain] -Is Patient Pain Free? Yes Musculoskeletal: No Muscle Wasting Neurological: Cranial nerves II-XII grossly intact Psych/Mental Status: Normal Affect Debridement Note Post-Debridement Measurements/Treatment WC - Nurse 2 - General Ulcer CM Notes Start: 07/09/18 10:15 Freq: Status: Active Protocol: Activity Type Activity Date Activity User E-Sign Co-Sign Detail Recorded Client Recorded Date Recorded By Document 07/09/18 13:23 DV [id number] 07/09/18 13:24 DV Document 07/16/18 11:13 DV [id number] 07/16/18 11:21 DV Document 07/23/18 11:05 MW [id number] 07/23/18 11:21 MW Document 07/30/18 11:34 MW [id number] 07/30/18 11:44 MW Document 08/06/18 11:46 MW [id number] 08/06/18 11:54 MW 07/09/18 07/16/18 07/23/18 13:23 11:13 11:05 Wound Center Nurse 2 #8 RIGHT MID BACK/RIB -Time 11:06 -Correct Patient Yes -Correct Side, Site, Position Yes -Correct Procedure Yes -Procedure Performed Yes -Type of Procedure Debridement -Clinical Debridement Subcutaneous -Post Debridement Size (cm) - Length 1.6 -Post Debridement Size (cm) - Width 1.9 -Post Debridement Size (cm) - Depth 0.1 -Total Square Cm 3.04 -Wound/Ulcer Outcome Not Healed -Ulcer Cleansing Rinsed/ Irrigated with Saline -Foul Odor after Cleansing No -Bioengineered Tissue No -Bleeding Controlled with Pressure -Offloading Yes -Treatment Response Procedure Tolerated Well #7 SACRUM -Time 11:05 -Correct Patient Yes -Correct Side, Site, Position Yes -Correct Procedure Yes -Procedure Performed Yes -Type of Procedure Debridement -Clinical Debridement Subcutaneous -Post Debridement Size (cm) - Length 2.5 -Post Debridement Size (cm) - Width 1.5 -Post Debridement Size (cm) - Depth 0.2 -Total Square Cm 3.75 -Wound/Ulcer Outcome Not Healed -Ulcer Cleansing Rinsed/ Irrigated with Saline -Foul Odor after Cleansing No -Bioengineered Tissue No -Bleeding Controlled with Pressure -Offloading Yes -Treatment Response Procedure Tolerated Well #6- RT MORAN SUPERIOR -Time 11:15 11:07 -Correct Patient Yes Yes -Correct Side, Site, Position Yes Yes -Correct Procedure Yes Yes -Procedure Performed Yes Yes -Type of Procedure Debridement Debridement -Clinical Debridement Subcutaneous Subcutaneous -Post Debridement Size (cm) - Length 2.4 2.2 -Post Debridement Size (cm) - Width 3.5 2.5 -Post Debridement Size (cm) - Depth 0.1 0.1 -Total Square Cm 8.40 5.50 -Wound/Ulcer Outcome Not Healed Not Healed -Ulcer Cleansing Rinsed/ Rinsed/ Irrigated with Irrigated with Saline Saline -Foul Odor after Cleansing No No -Bioengineered Tissue No No -Bleeding Controlled with Pressure Pressure -Offloading No No -Treatment Response Procedure Procedure Tolerated Well Tolerated Well #3- RT MORAN -Time 13:23 11:14 11:19 -Correct Patient Yes Yes Yes -Correct Side, Site, Position Yes Yes Yes -Correct Procedure Yes Yes Yes -Procedure Performed Yes Yes Yes -Type of Procedure Debridement Debridement Debridement -Clinical Debridement Subcutaneous Subcutaneous Subcutaneous -Post Debridement Size (cm) - Length 1.4 1.2 1.0 -Post Debridement Size (cm) - Width 0.4 0.5 0.3 -Post Debridement Size (cm) - Depth 0.1 0.1 0.1 -Total Square Cm 0.56 0.60 0.30 -Wound/Ulcer Outcome Not Healed Not Healed Not Healed -Ulcer Cleansing Rinsed/ Rinsed/ Rinsed/ Irrigated with Irrigated with Irrigated with Saline Saline Saline -Foul Odor after Cleansing No No No -Bioengineered Tissue No No No -Bleeding Controlled with Pressure Pressure Pressure -Offloading No No No -Treatment Response Procedure Procedure Procedure Tolerated Well Tolerated Well Tolerated Well Pain Scale: 0-10 Numeric Is Patient Pain Free? Yes Yes Yes 07/30/18 08/06/18 11:34 11:46 Wound Center Nurse 2 #8 RIGHT MID BACK/RIB -Time 11:35 -Correct Patient Yes -Correct Side, Site, Position Yes -Correct Procedure Yes -Procedure Performed No -Type of Procedure -Clinical Debridement -Post Debridement Size (cm) - Length 0 -Post Debridement Size (cm) - Width 0 -Post Debridement Size (cm) - Depth 0 -Total Square Cm 0 -Wound/Ulcer Outcome Healed- Epithelialized -Ulcer Cleansing -Foul Odor after Cleansing -Bioengineered Tissue -Bleeding Controlled with -Offloading -Treatment Response #7 SACRUM -Time 11:35 11:46 -Correct Patient Yes Yes -Correct Side, Site, Position Yes Yes -Correct Procedure Yes Yes -Procedure Performed Yes Yes -Type of Procedure Debridement Debridement -Clinical Debridement Subcutaneous Subcutaneous -Post Debridement Size (cm) - Length 2.1 1.8 -Post Debridement Size (cm) - Width 0.5 0.6 -Post Debridement Size (cm) - Depth 0.3 0.2 -Total Square Cm 1.05 1.08 -Wound/Ulcer Outcome Not Healed Not Healed -Ulcer Cleansing Rinsed/ Rinsed/ Irrigated with Irrigated with Saline Saline -Foul Odor after Cleansing No No -Bioengineered Tissue No No -Bleeding Controlled with Pressure Pressure -Offloading No No -Treatment Response Procedure Procedure Tolerated Well Tolerated Well #6- RT MORAN SUPERIOR -Time 11:35 11:47 -Correct Patient Yes Yes -Correct Side, Site, Position Yes Yes -Correct Procedure Yes Yes -Procedure Performed Yes Yes -Type of Procedure Debridement Debridement -Clinical Debridement Subcutaneous Subcutaneous -Post Debridement Size (cm) - Length 1.2 1.6 -Post Debridement Size (cm) - Width 1.6 0.5 -Post Debridement Size (cm) - Depth 0.1 0.1 -Total Square Cm 1.92 0.80 -Wound/Ulcer Outcome Not Healed Not Healed -Ulcer Cleansing Rinsed/ Rinsed/ Irrigated with Irrigated with Saline Saline -Foul Odor after Cleansing No No -Bioengineered Tissue No No -Bleeding Controlled with Pressure Pressure -Offloading No No -Treatment Response Procedure Procedure Tolerated Well Tolerated Well #3- RT MORAN -Time 11:35 -Correct Patient Yes -Correct Side, Site, Position Yes -Correct Procedure Yes -Procedure Performed Yes -Type of Procedure -Clinical Debridement Selective -Post Debridement Size (cm) - Length 0 -Post Debridement Size (cm) - Width 0 -Post Debridement Size (cm) - Depth 0 -Total Square Cm 0 -Wound/Ulcer Outcome Healed- Epithelialized -Ulcer Cleansing Rinsed/ Irrigated with Saline -Foul Odor after Cleansing No -Bioengineered Tissue No -Bleeding Controlled with Pressure -Offloading No -Treatment Response Procedure Tolerated Well Pain Scale: 0-10 Numeric Is Patient Pain Free? Yes Yes Wound debrided: Sacral ulcer Wound Grade/Stage: Stage III Type of Debridement: Excisional debridement Anesthesia Used: 4% Lidocaine Solution Depth: Down to and including healthy tissue, in the subcutaneous layer Percentage of wound debrided: 100 Instrument Used: 5mm curette Tissue Removed: Slough and devitalized tissue Severity: Fat Layer Exposed Amount of bleeding with debridement: Mild Bleeding Controlled with: Pressure Patient tolerated procedure well - Additional Wound Wound debrided: Right lower extremity Wound Grade/Stage: Stage II Type of Debridement: Excisional debridement Anesthesia Used: 4% Lidocaine Solution Depth: Down to and including healthy tissue, in the subcutaneous layer Percentage of wound debrided: 100 Instrument Used: 3mm curette Tissue Removed: Slough and devitalized tissue Severity: Fat Layer Exposed Amount of bleeding with debridement: Mild Bleeding Controlled with: Pressure Patient tolerated procedure: Patient tolerated procedure well Assessment/Plan Active Problems (Last Updated 07/19/18 @ 08:25 by Ras Patterson MD) Sacral decubitus ulcer, stage III (Chronic) Ulcer of back (Acute) Cellulitis of left lower extremity (Acute) Lower extremity edema (Chronic) Assessment: Same as above. Right mid back has healed. Plan: Debridement of both ulcers done as documented above. Procedure was well-tolerated. Continue Fibrocol to all ulcers. Change daily. Left lower extremity cellulitis has resolved. Left heel deep tissue injury stable. No opening. Continue increased protein intake. Optimal blood sugar control. 3M wraps for edema management. 3M wraps to her right lower extremity and Tubigrip to the left. Continue offloading left heel and monitor closely. Advised to elevate lower extremities when seated in bed. She was advised to call with any further questions or concerns. Follow-up in 1 week. This note was generated with Satiety dictation software. It may contain incorrect words, spelling, and punctuation that were not noted in checking the note before signing.
--- NOTE | 2018-08-06 12:16 | PN.PCM_ITS ---
(1) Sacral decubitus ulcer, stage III Status: Chronic Current Visit: Yes Code(s): L89.153 - Pressure ulcer of sacral region, stage 3 (2) Ulcer of back Status: Acute Current Visit: Yes Code(s): L98.429 - Non-pressure chronic ulcer of back with unspecified severity (3) Cellulitis of left lower extremity Status: Acute Current Visit: Yes Code(s): L03.116 - Cellulitis of left lower limb (4) Lower extremity edema Status: Chronic Current Visit: Yes Code(s): R60.0 - Localized edema (5) Type 2 diabetes mellitus without complications Status: Chronic Current Visit: No Code(s): E11.9 - Type 2 diabetes mellitus without complications (6) Ulcer of right lower extremity with fat layer exposed Status: Chronic Current Visit: No Code(s): L97.912 - Non-pressure chronic ulcer of unspecified part of right lower leg with fat layer exposed Type of Wound Chief Complaint: non healing right lower leg ulcer, mid back ulcer and left lower extremity redness and pain. History of Wound: Ms. Hendrix is a 67-year-old with past medical history as documented who had previously been seeing Dr. Sharma here at the wound center for nonhealing right lower extremity ulcer and is now a transfer of care to co due to several ulcers above the knee. 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 She has had some dressing done by the group home without any significant improvement. She also has a mid back ulcer. She denies any known precipitating factor or when exactly started. She is noted to have increased redness, warmth and swelling of the left lower extremity. She denies chills, fever all otherwise feeling of unwell. She was hospitalized recently. Progress of Wound: Stable. No new concerns at this time. - Physical Exam Vital Signs Temp Pulse Resp BP 99.3 F H 75 16 136/67 H 08/06/18 11:26 08/06/18 11:26 08/06/18 11:26 08/06/18 11:26 General: Alert, No apparent distress HEENT: Atraumatic, Normocephalic Oral: Moist Mucosa Neck: Supple Lungs: Normal air movement Abdomen: Non Tender Extremities: No cyanosis, Edema Skin: Ulcer/ Wound Wound Measurements and Assessment WC - Nurse 1 - General Ulcer Measurement Start: 07/09/18 10:15 Freq: Status: Active Protocol: Activity Type Activity Date Activity User E-Sign Co-Sign Detail Recorded Client Recorded Date Recorded By Document 08/06/18 11:26 [facility] [id number] 08/06/18 11:38 [facility] 08/06/18 11:26 Wound Center Nurse 1 [Ulcer Assessment] #7 SACRUM -Combined with other wound No -Current Size (cm) - Length 1.8 -Current Size (cm) - Width 1.1 -Current Size (cm) - Depth 0.3 -Total Square Cm 1.98 -Tunneling No -Undermining/Tunneling No -Circular Undermining No -Exudate Amt Small -Exudate Type Serosanguineous -Wound Margin Thickened & Rolled Under -Granulation Amt Large (67-100%) -Granulation Quality Mullen -Slough/Fibrin Yes -Necrosis Amt Small (1-33%) -Necrotic Tissue Type Adherent Slough -Structure Exposed N/A -Texture (Gricel-wound Skin Appearance) Assessed -Moisture (Gricel-wound Skin Appearance Maceration ) -Color (Gricel-wound Skin Appearance) Assessed -Temperature (Gricel-wound Skin No Abnormality Appearance) (Pt Warm) -Tenderness on Palpation (Gricel-wound No Skin Appearance) -Ulcer Cleansing Wound Cleanser -Foul Odor after Cleansing No -Anesthetic Used 5% Lidocaine Gel #6- RT MORAN SUPERIOR -Combined with other wound No -Current Size (cm) - Length 1.5 -Current Size (cm) - Width 1.4 -Current Size (cm) - Depth 0.2 -Total Square Cm 2.10 -Tunneling No -Undermining/Tunneling No -Circular Undermining No -Exudate Amt Small -Exudate Type Serosanguineous -Wound Margin Distinct, Outline Attached -Granulation Amt Large (67-100%) -Granulation Quality Mullen -Slough/Fibrin Yes -Necrosis Amt Small (1-33%) -Necrotic Tissue Type Adherent Slough -Structure Exposed N/A -Texture (Gricel-wound Skin Appearance) Assessed -Moisture (Gricel-wound Skin Appearance Assessed ) -Color (Gricel-wound Skin Appearance) Assessed -Temperature (Gricel-wound Skin No Abnormality Appearance) (Pt Warm) -Tenderness on Palpation (Gricel-wound No Skin Appearance) -Ulcer Cleansing Wound Cleanser -Anesthetic Used 5% Lidocaine Gel [Edema Assessment] -Lower Limb Edema Present Yes -Right Calf (cm) 36.1 -Right Ankle (cm) 25.1 -Point of measurement (cm from the 42.8 medial instep) -Point of Measurement (cm from the 27 medial instep) 08/06/18 11:32 Wound Center by Jaylin Chin LEFT HEEL DEEP TISSUE INJURY NOTED. FLUID FILLED BLISTERED NOTED SKIN INTACT. COLOR ARTIST AND DOCTOR AWARE Initialized on 08/06/18 11:32 - END OF NOTE WC - Nurse 2 - General Ulcer CM Notes Start: 07/09/18 10:15 Freq: Status: Active Protocol: Activity Type Activity Date Activity User E-Sign Co-Sign Detail Recorded Client Recorded Date Recorded By Document 08/06/18 11:46 MW [id number] 08/06/18 11:54 MW 08/06/18 11:46 Wound Center Nurse 2 [Procedure/Treatment] #7 SACRUM -Time 11:46 -Correct Patient Yes -Correct Side, Site, Position Yes -Correct Procedure Yes -Procedure Performed Yes -Type of Procedure Debridement -Clinical Debridement Subcutaneous -Post Debridement Size (cm) - Length 1.8 -Post Debridement Size (cm) - Width 0.6 -Post Debridement Size (cm) - Depth 0.2 -Total Square Cm 1.08 -Wound/Ulcer Outcome Not Healed -Ulcer Cleansing Rinsed/ Irrigated with Saline -Foul Odor after Cleansing No -Bioengineered Tissue No -Bleeding Controlled with Pressure -Offloading No -Treatment Response Procedure Tolerated Well #6- RT MORAN SUPERIOR -Time 11:47 -Correct Patient Yes -Correct Side, Site, Position Yes -Correct Procedure Yes -Procedure Performed Yes -Type of Procedure Debridement -Clinical Debridement Subcutaneous -Post Debridement Size (cm) - Length 1.6 -Post Debridement Size (cm) - Width 0.5 -Post Debridement Size (cm) - Depth 0.1 -Total Square Cm 0.80 -Wound/Ulcer Outcome Not Healed -Ulcer Cleansing Rinsed/ Irrigated with Saline -Foul Odor after Cleansing No -Bioengineered Tissue No -Bleeding Controlled with Pressure -Offloading No -Treatment Response Procedure Tolerated Well [See Physician Procedure note for Specifics] Pain Scale: 0-10 Numeric [Pain] -Is Patient Pain Free? Yes Musculoskeletal: No Muscle Wasting Neurological: Cranial nerves II-XII grossly intact Psych/Mental Status: Normal Affect Debridement Note Post-Debridement Measurements/Treatment WC - Nurse 2 - General Ulcer CM Notes Start: 07/09/18 10:15 Freq: Status: Active Protocol: Activity Type Activity Date Activity User E-Sign Co-Sign Detail Recorded Client Recorded Date Recorded By Document 07/09/18 13:23 DV [id number] 07/09/18 13:24 DV Document 07/16/18 11:13 DV [id number] 07/16/18 11:21 DV Document 07/23/18 11:05 MW [id number] 07/23/18 11:21 MW Document 07/30/18 11:34 MW [id number] 07/30/18 11:44 MW Document 08/06/18 11:46 MW [id number] 08/06/18 11:54 MW 07/09/18 07/16/18 07/23/18 13:23 11:13 11:05 Wound Center Nurse 2 #8 RIGHT MID BACK/RIB -Time 11:06 -Correct Patient Yes -Correct Side, Site, Position Yes -Correct Procedure Yes -Procedure Performed Yes -Type of Procedure Debridement -Clinical Debridement Subcutaneous -Post Debridement Size (cm) - Length 1.6 -Post Debridement Size (cm) - Width 1.9 -Post Debridement Size (cm) - Depth 0.1 -Total Square Cm 3.04 -Wound/Ulcer Outcome Not Healed -Ulcer Cleansing Rinsed/ Irrigated with Saline -Foul Odor after Cleansing No -Bioengineered Tissue No -Bleeding Controlled with Pressure -Offloading Yes -Treatment Response Procedure Tolerated Well #7 SACRUM -Time 11:05 -Correct Patient Yes -Correct Side, Site, Position Yes -Correct Procedure Yes -Procedure Performed Yes -Type of Procedure Debridement -Clinical Debridement Subcutaneous -Post Debridement Size (cm) - Length 2.5 -Post Debridement Size (cm) - Width 1.5 -Post Debridement Size (cm) - Depth 0.2 -Total Square Cm 3.75 -Wound/Ulcer Outcome Not Healed -Ulcer Cleansing Rinsed/ Irrigated with Saline -Foul Odor after Cleansing No -Bioengineered Tissue No -Bleeding Controlled with Pressure -Offloading Yes -Treatment Response Procedure Tolerated Well #6- RT MORAN SUPERIOR -Time 11:15 11:07 -Correct Patient Yes Yes -Correct Side, Site, Position Yes Yes -Correct Procedure Yes Yes -Procedure Performed Yes Yes -Type of Procedure Debridement Debridement -Clinical Debridement Subcutaneous Subcutaneous -Post Debridement Size (cm) - Length 2.4 2.2 -Post Debridement Size (cm) - Width 3.5 2.5 -Post Debridement Size (cm) - Depth 0.1 0.1 -Total Square Cm 8.40 5.50 -Wound/Ulcer Outcome Not Healed Not Healed -Ulcer Cleansing Rinsed/ Rinsed/ Irrigated with Irrigated with Saline Saline -Foul Odor after Cleansing No No -Bioengineered Tissue No No -Bleeding Controlled with Pressure Pressure -Offloading No No -Treatment Response Procedure Procedure Tolerated Well Tolerated Well #3- RT MORAN -Time 13:23 11:14 11:19 -Correct Patient Yes Yes Yes -Correct Side, Site, Position Yes Yes Yes -Correct Procedure Yes Yes Yes -Procedure Performed Yes Yes Yes -Type of Procedure Debridement Debridement Debridement -Clinical Debridement Subcutaneous Subcutaneous Subcutaneous -Post Debridement Size (cm) - Length 1.4 1.2 1.0 -Post Debridement Size (cm) - Width 0.4 0.5 0.3 -Post Debridement Size (cm) - Depth 0.1 0.1 0.1 -Total Square Cm 0.56 0.60 0.30 -Wound/Ulcer Outcome Not Healed Not Healed Not Healed -Ulcer Cleansing Rinsed/ Rinsed/ Rinsed/ Irrigated with Irrigated with Irrigated with Saline Saline Saline -Foul Odor after Cleansing No No No -Bioengineered Tissue No No No -Bleeding Controlled with Pressure Pressure Pressure -Offloading No No No -Treatment Response Procedure Procedure Procedure Tolerated Well Tolerated Well Tolerated Well Pain Scale: 0-10 Numeric Is Patient Pain Free? Yes Yes Yes 07/30/18 08/06/18 11:34 11:46 Wound Center Nurse 2 #8 RIGHT MID BACK/RIB -Time 11:35 -Correct Patient Yes -Correct Side, Site, Position Yes -Correct Procedure Yes -Procedure Performed No -Type of Procedure -Clinical Debridement -Post Debridement Size (cm) - Length 0 -Post Debridement Size (cm) - Width 0 -Post Debridement Size (cm) - Depth 0 -Total Square Cm 0 -Wound/Ulcer Outcome Healed- Epithelialized -Ulcer Cleansing -Foul Odor after Cleansing -Bioengineered Tissue -Bleeding Controlled with -Offloading -Treatment Response #7 SACRUM -Time 11:35 11:46 -Correct Patient Yes Yes -Correct Side, Site, Position Yes Yes -Correct Procedure Yes Yes -Procedure Performed Yes Yes -Type of Procedure Debridement Debridement -Clinical Debridement Subcutaneous Subcutaneous -Post Debridement Size (cm) - Length 2.1 1.8 -Post Debridement Size (cm) - Width 0.5 0.6 -Post Debridement Size (cm) - Depth 0.3 0.2 -Total Square Cm 1.05 1.08 -Wound/Ulcer Outcome Not Healed Not Healed -Ulcer Cleansing Rinsed/ Rinsed/ Irrigated with Irrigated with Saline Saline -Foul Odor after Cleansing No No -Bioengineered Tissue No No -Bleeding Controlled with Pressure Pressure -Offloading No No -Treatment Response Procedure Procedure Tolerated Well Tolerated Well #6- RT MORAN SUPERIOR -Time 11:35 11:47 -Correct Patient Yes Yes -Correct Side, Site, Position Yes Yes -Correct Procedure Yes Yes -Procedure Performed Yes Yes -Type of Procedure Debridement Debridement -Clinical Debridement Subcutaneous Subcutaneous -Post Debridement Size (cm) - Length 1.2 1.6 -Post Debridement Size (cm) - Width 1.6 0.5 -Post Debridement Size (cm) - Depth 0.1 0.1 -Total Square Cm 1.92 0.80 -Wound/Ulcer Outcome Not Healed Not Healed -Ulcer Cleansing Rinsed/ Rinsed/ Irrigated with Irrigated with Saline Saline -Foul Odor after Cleansing No No -Bioengineered Tissue No No -Bleeding Controlled with Pressure Pressure -Offloading No No -Treatment Response Procedure Procedure Tolerated Well Tolerated Well #3- RT MORAN -Time 11:35 -Correct Patient Yes -Correct Side, Site, Position Yes -Correct Procedure Yes -Procedure Performed Yes -Type of Procedure -Clinical Debridement Selective -Post Debridement Size (cm) - Length 0 -Post Debridement Size (cm) - Width 0 -Post Debridement Size (cm) - Depth 0 -Total Square Cm 0 -Wound/Ulcer Outcome Healed- Epithelialized -Ulcer Cleansing Rinsed/ Irrigated with Saline -Foul Odor after Cleansing No -Bioengineered Tissue No -Bleeding Controlled with Pressure -Offloading No -Treatment Response Procedure Tolerated Well Pain Scale: 0-10 Numeric Is Patient Pain Free? Yes Yes Wound debrided: Sacral ulcer Wound Grade/Stage: Stage III Type of Debridement: Excisional debridement Anesthesia Used: 4% Lidocaine Solution Depth: Down to and including healthy tissue, in the subcutaneous layer Percentage of wound debrided: 100 Instrument Used: 5mm curette Tissue Removed: Slough and devitalized tissue Severity: Fat Layer Exposed Amount of bleeding with debridement: Mild Bleeding Controlled with: Pressure Patient tolerated procedure well - Additional Wound Wound debrided: Right lower extremity Wound Grade/Stage: Stage II Type of Debridement: Excisional debridement Anesthesia Used: 4% Lidocaine Solution Depth: Down to and including healthy tissue, in the subcutaneous layer Percentage of wound debrided: 100 Instrument Used: 3mm curette Tissue Removed: Slough and devitalized tissue Severity: Fat Layer Exposed Amount of bleeding with debridement: Mild Bleeding Controlled with: Pressure Patient tolerated procedure: Patient tolerated procedure well Assessment/Plan Active Problems (Last Updated 07/19/18 @ 08:25 by Ras Patterson MD) Sacral decubitus ulcer, stage III (Chronic) Ulcer of back (Acute) Cellulitis of left lower extremity (Acute) Lower extremity edema (Chronic) Assessment: Same as above. Right mid back has healed. Plan: Debridement of both ulcers done as documented above. Procedure was well- tolerated. Continue Fibrocol to all ulcers. Change daily. Left lower extremity cellulitis has resolved. Left heel deep tissue injury stable. No opening. Continue increased protein intake. Optimal blood sugar control. 3M wraps for edema management. 3M wraps to her right lower extremity and Tubigrip to the left. Continue offloading left heel and monitor closely. Advised to elevate lower extremities when seated in bed. She was advised to call with any further questions or concerns. Follow-up in 1 week. This note was generated with [employer] dictation software. It may contain incorrect words, spelling, and punctuation that were not noted in checking the note before signing.
== END 2018-08-06 23:59 ==
LOC: WC 11:00
PROVIDERS: Family Provider Family Medicine Geriatric Medicine; PCP Family Medicine Geriatric Medicine; Visit Provider Internal Medicine
DX: E11.622 Type 2 diabetes mellitus with other skin ulcer (principal); L97.812 Non-pressure chronic ulcer of other part of right lower leg with fat layer exposed; E11.51 Type 2 diabetes mellitus with diabetic peripheral angiopathy without gangrene; R60.0 Localized edema; L97.422 Non-pressure chronic ulcer of left heel and midfoot with fat layer exposed; L89.153 Pressure ulcer of sacral region, stage 3
CPT/HCPCS: 11042; 29581; 97597

== ENCOUNTER 2018-09-03 10:15 | Outpatient (RCR) | payer SELFPAY ==
[2018-08-07 01:24] VITALS: BP 136/67; PULSE 75; RESP 16; TEMP 37.4
[2018-08-13 10:02] VITALS: BP 140/76; PULSE 77; RESP 16; TEMP 36.5; BMI 32.6
--- NOTE | 2018-08-13 11:29 | PCM.WC.PN ---
(1) Decubitus ulcer of left heel, stage 2 Status: Acute Current Visit: Yes Code(s): L89.622 - Pressure ulcer of left heel, stage 2 (2) Sacral decubitus ulcer, stage III Status: Chronic Current Visit: Yes Code(s): L89.153 - Pressure ulcer of sacral region, stage 3 (3) Type 2 diabetes mellitus without complications Status: Chronic Current Visit: Yes Code(s): E11.9 - Type 2 diabetes mellitus without complications (4) Ulcer of right lower extremity with fat layer exposed Status: Chronic Current Visit: Yes Code(s): L97.912 - Non-pressure chronic ulcer of unspecified part of right lower leg with fat layer exposed Type of Wound Chief Complaint: non healing right lower leg ulcer, mid back ulcer and left lower extremity redness and pain. History of Wound: Ms. Hendrix is a 67-year-old with past medical history as documented who had previously been seeing Dr. Sharma here at the wound center for nonhealing right lower extremity ulcer and is now a transfer of care to [facility] due to several ulcers above the knee. 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 She has had some dressing done by the [facility] without any significant improvement. She also has a mid back ulcer. She denies any known precipitating factor or when exactly started. She is noted to have increased redness, warmth and swelling of the left lower extremity. She denies chills, fever all otherwise feeling of unwell. She was hospitalized recently. Progress of Wound: Right lower extremity ulcer is healed. New left heel pressure ulcer. - Physical Exam Vital Signs Temp Pulse Resp BP 97.7 F L 77 16 140/76 H 08/13/18 10:02 08/13/18 10:02 08/13/18 10:02 08/13/18 10:02 General: Alert, Oriented x3, No apparent distress HEENT: Atraumatic, Normocephalic Oral: Moist Mucosa Neck: Supple Lungs: Normal air movement Abdomen: Non Tender, Obese Extremities: No cyanosis, Edema Skin: Ulcer/ Wound Wound Measurements and Assessment WC - Nurse 1 - General Ulcer Measurement Start: 08/13/18 09:59 Freq: Status: Active Protocol: Activity Type Activity Date Activity User E-Sign Co-Sign Detail Recorded Client Recorded Date Recorded By Document 08/13/18 10:02 [facility] [id number] 08/13/18 10:11 [facility] 08/13/18 10:02 Wound Center Nurse 1 [Ulcer Assessment] #9- LT HEEL -Combined with other wound No -Current Size (cm) - Length 4 -Current Size (cm) - Width 3.5 -Current Size (cm) - Depth 0.1 -Total Square Cm 14.0 -Date of Last Picture (Recall this 08/13/18 field) -Photo Taken Yes -Epithelialization None Present -Tunneling No -Undermining/Tunneling No -Circular Undermining No -Exudate Amt Medium -Exudate Type Serosanguineous -Wound Margin Flat & Intact -Granulation Amt Medium (34-66%) -Granulation Quality Red -Slough/Fibrin Yes -Necrosis Amt Medium (34-66%) -Necrotic Tissue Type Eschar -Texture (Gricel-wound Skin Appearance) Scarring -Moisture (Gricel-wound Skin Appearance Dry/Scaly ) -Color (Gricel-wound Skin Appearance) Erythema -Temperature (Gricel-wound Skin No Abnormality Appearance) (Pt Warm) -Tenderness on Palpation (Gricel-wound No Skin Appearance) -Ulcer Cleansing Wound Cleanser -Foul Odor after Cleansing No -Anesthetic Used 5% Lidocaine Gel #7 SACRUM -Combined with other wound No -Current Size (cm) - Length 1.3 -Current Size (cm) - Width 0.4 -Current Size (cm) - Depth 0.3 -Total Square Cm 0.52 -Photo Taken No -Epithelialization None Present -Tunneling No -Undermining/Tunneling No -Circular Undermining No -Exudate Amt Small -Exudate Type Serosanguineous -Wound Margin Thickened -Granulation Amt Small (1-33%) -Granulation Quality Red -Slough/Fibrin Yes -Necrosis Amt Large (67-100%) -Necrotic Tissue Type Adherent Slough -Texture (Gricel-wound Skin Appearance) Scarring -Moisture (Gricel-wound Skin Appearance Maceration ) -Color (Gricel-wound Skin Appearance) Erythema Palor -Temperature (Gricel-wound Skin No Abnormality Appearance) (Pt Warm) -Tenderness on Palpation (Gricel-wound No Skin Appearance) -Ulcer Cleansing Rinsed/ Irrigated with Saline -Foul Odor after Cleansing No -Anesthetic Used 5% Lidocaine Gel #6- RT MORAN SUPERIOR -Combined with other wound No -Current Size (cm) - Length 1.4 -Current Size (cm) - Width 1 -Current Size (cm) - Depth 0.1 -Total Square Cm 1.4 -Photo Taken No -Epithelialization None Present -Tunneling No -Undermining/Tunneling No -Circular Undermining No -Exudate Amt None Present -Wound Margin Distinct, Outline Attached -Granulation Amt None Present (0 %) -Slough/Fibrin Yes -Necrosis Amt Large (67-100%) -Necrotic Tissue Type Eschar -Texture (Gricel-wound Skin Appearance) Scarring -Moisture (Gricel-wound Skin Appearance Dry/Scaly ) -Color (Gricel-wound Skin Appearance) Assessed -Temperature (Gricel-wound Skin No Abnormality Appearance) (Pt Warm) -Tenderness on Palpation (Gricel-wound No Skin Appearance) -Ulcer Cleansing Wound Cleanser -Foul Odor after Cleansing No -Anesthetic Used 5% Lidocaine Gel [Edema Assessment] -Lower Limb Edema Present Yes -Right Calf (cm) 43 -Right Ankle (cm) 24.8 -Left Calf (cm) 45.5 -Left Ankle (cm) 26.4 WC - Nurse 2 - General Ulcer CM Notes Start: 08/13/18 09:59 Freq: Status: Active Protocol: Activity Type Activity Date Activity User E-Sign Co-Sign Detail Recorded Client Recorded Date Recorded By Document 08/13/18 10:21 MW [id number] 08/13/18 10:36 MW 08/13/18 10:21 Wound Center Nurse 2 [Procedure/Treatment] #9- LT HEEL -Time 10:21 -Correct Patient Yes -Correct Side, Site, Position Yes -Correct Procedure Yes -Procedure Performed Yes -Type of Procedure Debridement -Clinical Debridement Subcutaneous -Post Debridement Size (cm) - Length 5.0 -Post Debridement Size (cm) - Width 4.0 -Post Debridement Size (cm) - Depth 0.1 -Total Square Cm 20.00 -Wound/Ulcer Outcome Not Healed -Ulcer Cleansing Rinsed/ Irrigated with Saline -Foul Odor after Cleansing No -Bioengineered Tissue No -Bleeding Controlled with Pressure -Offloading No -Treatment Response Procedure Tolerated Well #7 SACRUM -Time 10:22 -Correct Patient Yes -Correct Side, Site, Position Yes -Correct Procedure Yes -Procedure Performed Yes -Type of Procedure Debridement -Clinical Debridement Subcutaneous -Post Debridement Size (cm) - Length 1.4 -Post Debridement Size (cm) - Width 0.4 -Post Debridement Size (cm) - Depth 0.2 -Total Square Cm 0.56 -Wound/Ulcer Outcome Not Healed -Ulcer Cleansing Rinsed/ Irrigated with Saline -Foul Odor after Cleansing No -Bioengineered Tissue No -Bleeding Controlled with Pressure -Offloading No -Treatment Response Procedure Tolerated Well #6- RT MORAN SUPERIOR -Time 10:22 -Correct Patient Yes -Correct Side, Site, Position Yes -Correct Procedure Yes -Procedure Performed No -Post Debridement Size (cm) - Length 0 -Post Debridement Size (cm) - Width 0 -Post Debridement Size (cm) - Depth 0 -Total Square Cm 0 -Wound/Ulcer Outcome Healed- Epithelialized -Ulcer Cleansing Rinsed/ Irrigated with Saline -Foul Odor after Cleansing No -Bioengineered Tissue No -Bleeding Controlled with Pressure -Offloading No -Treatment Response Procedure Tolerated Well [See Physician Procedure note for Specifics] Pain Scale: 0-10 Numeric [Pain] -Is Patient Pain Free? Yes Musculoskeletal: No Muscle Wasting Neurological: Cranial nerves II-XII grossly intact Psych/Mental Status: Normal Affect Debridement Note Post-Debridement Measurements/Treatment WC - Nurse 2 - General Ulcer CM Notes Start: 08/13/18 09:59 Freq: Status: Active Protocol: Activity Type Activity Date Activity User E-Sign Co-Sign Detail Recorded Client Recorded Date Recorded By Document 08/13/18 10:21 MW [id number] 08/13/18 10:36 MW 08/13/18 10:21 Wound Center Nurse 2 #9- LT HEEL -Time 10:21 -Correct Patient Yes -Correct Side, Site, Position Yes -Correct Procedure Yes -Procedure Performed Yes -Type of Procedure Debridement -Clinical Debridement Subcutaneous -Post Debridement Size (cm) - Length 5.0 -Post Debridement Size (cm) - Width 4.0 -Post Debridement Size (cm) - Depth 0.1 -Total Square Cm 20.00 -Wound/Ulcer Outcome Not Healed -Ulcer Cleansing Rinsed/ Irrigated with Saline -Foul Odor after Cleansing No -Bioengineered Tissue No -Bleeding Controlled with Pressure -Offloading No -Treatment Response Procedure Tolerated Well #7 SACRUM -Time 10:22 -Correct Patient Yes -Correct Side, Site, Position Yes -Correct Procedure Yes -Procedure Performed Yes -Type of Procedure Debridement -Clinical Debridement Subcutaneous -Post Debridement Size (cm) - Length 1.4 -Post Debridement Size (cm) - Width 0.4 -Post Debridement Size (cm) - Depth 0.2 -Total Square Cm 0.56 -Wound/Ulcer Outcome Not Healed -Ulcer Cleansing Rinsed/ Irrigated with Saline -Foul Odor after Cleansing No -Bioengineered Tissue No -Bleeding Controlled with Pressure -Offloading No -Treatment Response Procedure Tolerated Well #6- RT MORAN SUPERIOR -Time 10:22 -Correct Patient Yes -Correct Side, Site, Position Yes -Correct Procedure Yes -Procedure Performed No -Post Debridement Size (cm) - Length 0 -Post Debridement Size (cm) - Width 0 -Post Debridement Size (cm) - Depth 0 -Total Square Cm 0 -Wound/Ulcer Outcome Healed- Epithelialized -Ulcer Cleansing Rinsed/ Irrigated with Saline -Foul Odor after Cleansing No -Bioengineered Tissue No -Bleeding Controlled with Pressure -Offloading No -Treatment Response Procedure Tolerated Well Pain Scale: 0-10 Numeric Is Patient Pain Free? Yes Wound debrided: Sacral Wound Grade/Stage: Stage III Type of Debridement: Excisional debridement Anesthesia Used: 4% Lidocaine Solution Depth: Down to and including healthy tissue, in the subcutaneous layer Percentage of wound debrided: 100 Instrument Used: 3mm curette Tissue Removed: Slough and devitalized tissue Severity: Fat Layer Exposed Amount of bleeding with debridement: Mild Bleeding Controlled with: Pressure Patient tolerated procedure well - Additional Wound Wound debrided: Left heel Wound Grade/Stage: Stage II Type of Debridement: Excisional debridement Anesthesia Used: 4% Lidocaine Solution Depth: Down to and including healthy tissue, in the subcutaneous layer Percentage of wound debrided: 100 Instrument Used: 5mm curette, Forceps, - - Scissors. Tissue Removed: Slough and devitalized tissue Severity: Fat Layer Exposed Amount of bleeding with debridement: Mild Bleeding Controlled with: Pressure Patient tolerated procedure: Patient tolerated procedure well Assessment/Plan Active Problems (Last Updated 07/19/18 @ 08:25 by Ras Patterson MD) Sacral decubitus ulcer, stage III (Chronic) Decubitus ulcer of left heel, stage 2 (Acute) Ulcer of right lower extremity with fat layer exposed (Chronic) Type 2 diabetes mellitus without complications (Chronic) Assessment: Same as above. Right mid back and right lower extremity has healed. Plan: Debridement of both ulcers done as documented above. Procedure was well-tolerated. Continue Fibrocol to all ulcers. Change daily. Adaptic to right lower extremity (healed surface). Continue increased protein intake. Optimal blood sugar control. 3M wraps for edema management. 3M wraps to her right lower extremity and Tubigrip to the left. Continue offloading left heel and monitor closely. Advised to elevate lower extremities when seated in bed. She was advised to call with any further questions or concerns. Follow-up in 1 week. This note was generated with [employer] dictation software. It may contain incorrect words, spelling, and punctuation that were not noted in checking the note before signing.
--- NOTE | 2018-08-13 11:33 | PN.PCM_ITS ---
(1) Decubitus ulcer of left heel, stage 2 Status: Acute Current Visit: Yes Code(s): L89.622 - Pressure ulcer of left heel, stage 2 (2) Sacral decubitus ulcer, stage III Status: Chronic Current Visit: Yes Code(s): L89.153 - Pressure ulcer of sacral region, stage 3 (3) Type 2 diabetes mellitus without complications Status: Chronic Current Visit: Yes Code(s): E11.9 - Type 2 diabetes mellitus without complications (4) Ulcer of right lower extremity with fat layer exposed Status: Chronic Current Visit: Yes Code(s): L97.912 - Non-pressure chronic ulcer of unspecified part of right lower leg with fat layer exposed Type of Wound Chief Complaint: non healing right lower leg ulcer, mid back ulcer and left lower extremity redness and pain. History of Wound: Ms. Hendrix is a 67-year-old with past medical history as documented who had previously been seeing Dr. Sharma here at the wound center for nonhealing right lower extremity ulcer and is now a transfer of care to [facility] due to several ulcers above the knee. 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 She has had some dressing done by the [facility] without any significant improvement. She also has a mid back ulcer. She denies any known precipitating factor or when exactly started. She is noted to have increased redness, warmth and swelling of the left lower extremity. She denies chills, fever all otherwise feeling of unwell. She was hospitalized recently. Progress of Wound: Right lower extremity ulcer is healed. New left heel pressure ulcer. - Physical Exam Vital Signs Temp Pulse Resp BP 97.7 F L 77 16 140/76 H 08/13/18 10:02 08/13/18 10:02 08/13/18 10:02 08/13/18 10:02 General: Alert, Oriented x3, No apparent distress HEENT: Atraumatic, Normocephalic Oral: Moist Mucosa Neck: Supple Lungs: Normal air movement Abdomen: Non Tender, Obese Extremities: No cyanosis, Edema Skin: Ulcer/ Wound Wound Measurements and Assessment WC - Nurse 1 - General Ulcer Measurement Start: 08/13/18 09:59 Freq: Status: Active Protocol: Activity Type Activity Date Activity User E-Sign Co-Sign Detail Recorded Client Recorded Date Recorded By Document 08/13/18 10:02 [facility] [id number] 08/13/18 10:11 [facility] 08/13/18 10:02 Wound Center Nurse 1 [Ulcer Assessment] #9- LT HEEL -Combined with other wound No -Current Size (cm) - Length 4 -Current Size (cm) - Width 3.5 -Current Size (cm) - Depth 0.1 -Total Square Cm 14.0 -Date of Last Picture (Recall this 08/13/18 field) -Photo Taken Yes -Epithelialization None Present -Tunneling No -Undermining/Tunneling No -Circular Undermining No -Exudate Amt Medium -Exudate Type Serosanguineous -Wound Margin Flat & Intact -Granulation Amt Medium (34-66%) -Granulation Quality Red -Slough/Fibrin Yes -Necrosis Amt Medium (34-66%) -Necrotic Tissue Type Eschar -Texture (Gricel-wound Skin Appearance) Scarring -Moisture (Gricel-wound Skin Appearance Dry/Scaly ) -Color (Gricel-wound Skin Appearance) Erythema -Temperature (Gricel-wound Skin No Abnormality Appearance) (Pt Warm) -Tenderness on Palpation (Gricel-wound No Skin Appearance) -Ulcer Cleansing Wound Cleanser -Foul Odor after Cleansing No -Anesthetic Used 5% Lidocaine Gel #7 SACRUM -Combined with other wound No -Current Size (cm) - Length 1.3 -Current Size (cm) - Width 0.4 -Current Size (cm) - Depth 0.3 -Total Square Cm 0.52 -Photo Taken No -Epithelialization None Present -Tunneling No -Undermining/Tunneling No -Circular Undermining No -Exudate Amt Small -Exudate Type Serosanguineous -Wound Margin Thickened -Granulation Amt Small (1-33%) -Granulation Quality Red -Slough/Fibrin Yes -Necrosis Amt Large (67-100%) -Necrotic Tissue Type Adherent Slough -Texture (Gricel-wound Skin Appearance) Scarring -Moisture (Gricel-wound Skin Appearance Maceration ) -Color (Gricel-wound Skin Appearance) Erythema Palor -Temperature (Gricel-wound Skin No Abnormality Appearance) (Pt Warm) -Tenderness on Palpation (Gricel-wound No Skin Appearance) -Ulcer Cleansing Rinsed/ Irrigated with Saline -Foul Odor after Cleansing No -Anesthetic Used 5% Lidocaine Gel #6- RT MORAN SUPERIOR -Combined with other wound No -Current Size (cm) - Length 1.4 -Current Size (cm) - Width 1 -Current Size (cm) - Depth 0.1 -Total Square Cm 1.4 -Photo Taken No -Epithelialization None Present -Tunneling No -Undermining/Tunneling No -Circular Undermining No -Exudate Amt None Present -Wound Margin Distinct, Outline Attached -Granulation Amt None Present (0 %) -Slough/Fibrin Yes -Necrosis Amt Large (67-100%) -Necrotic Tissue Type Eschar -Texture (Gricel-wound Skin Appearance) Scarring -Moisture (Gricel-wound Skin Appearance Dry/Scaly ) -Color (Gricel-wound Skin Appearance) Assessed -Temperature (Gricel-wound Skin No Abnormality Appearance) (Pt Warm) -Tenderness on Palpation (Gricel-wound No Skin Appearance) -Ulcer Cleansing Wound Cleanser -Foul Odor after Cleansing No -Anesthetic Used 5% Lidocaine Gel [Edema Assessment] -Lower Limb Edema Present Yes -Right Calf (cm) 43 -Right Ankle (cm) 24.8 -Left Calf (cm) 45.5 -Left Ankle (cm) 26.4 WC - Nurse 2 - General Ulcer CM Notes Start: 08/13/18 09:59 Freq: Status: Active Protocol: Activity Type Activity Date Activity User E-Sign Co-Sign Detail Recorded Client Recorded Date Recorded By Document 08/13/18 10:21 MW [id number] 08/13/18 10:36 MW 08/13/18 10:21 Wound Center Nurse 2 [Procedure/Treatment] #9- LT HEEL -Time 10:21 -Correct Patient Yes -Correct Side, Site, Position Yes -Correct Procedure Yes -Procedure Performed Yes -Type of Procedure Debridement -Clinical Debridement Subcutaneous -Post Debridement Size (cm) - Length 5.0 -Post Debridement Size (cm) - Width 4.0 -Post Debridement Size (cm) - Depth 0.1 -Total Square Cm 20.00 -Wound/Ulcer Outcome Not Healed -Ulcer Cleansing Rinsed/ Irrigated with Saline -Foul Odor after Cleansing No -Bioengineered Tissue No -Bleeding Controlled with Pressure -Offloading No -Treatment Response Procedure Tolerated Well #7 SACRUM -Time 10:22 -Correct Patient Yes -Correct Side, Site, Position Yes -Correct Procedure Yes -Procedure Performed Yes -Type of Procedure Debridement -Clinical Debridement Subcutaneous -Post Debridement Size (cm) - Length 1.4 -Post Debridement Size (cm) - Width 0.4 -Post Debridement Size (cm) - Depth 0.2 -Total Square Cm 0.56 -Wound/Ulcer Outcome Not Healed -Ulcer Cleansing Rinsed/ Irrigated with Saline -Foul Odor after Cleansing No -Bioengineered Tissue No -Bleeding Controlled with Pressure -Offloading No -Treatment Response Procedure Tolerated Well #6- RT MORAN SUPERIOR -Time 10:22 -Correct Patient Yes -Correct Side, Site, Position Yes -Correct Procedure Yes -Procedure Performed No -Post Debridement Size (cm) - Length 0 -Post Debridement Size (cm) - Width 0 -Post Debridement Size (cm) - Depth 0 -Total Square Cm 0 -Wound/Ulcer Outcome Healed- Epithelialized -Ulcer Cleansing Rinsed/ Irrigated with Saline -Foul Odor after Cleansing No -Bioengineered Tissue No -Bleeding Controlled with Pressure -Offloading No -Treatment Response Procedure Tolerated Well [See Physician Procedure note for Specifics] Pain Scale: 0-10 Numeric [Pain] -Is Patient Pain Free? Yes Musculoskeletal: No Muscle Wasting Neurological: Cranial nerves II-XII grossly intact Psych/Mental Status: Normal Affect Debridement Note Post-Debridement Measurements/Treatment WC - Nurse 2 - General Ulcer CM Notes Start: 08/13/18 09:59 Freq: Status: Active Protocol: Activity Type Activity Date Activity User E-Sign Co-Sign Detail Recorded Client Recorded Date Recorded By Document 08/13/18 10:21 MW [id number] 08/13/18 10:36 MW 08/13/18 10:21 Wound Center Nurse 2 #9- LT HEEL -Time 10:21 -Correct Patient Yes -Correct Side, Site, Position Yes -Correct Procedure Yes -Procedure Performed Yes -Type of Procedure Debridement -Clinical Debridement Subcutaneous -Post Debridement Size (cm) - Length 5.0 -Post Debridement Size (cm) - Width 4.0 -Post Debridement Size (cm) - Depth 0.1 -Total Square Cm 20.00 -Wound/Ulcer Outcome Not Healed -Ulcer Cleansing Rinsed/ Irrigated with Saline -Foul Odor after Cleansing No -Bioengineered Tissue No -Bleeding Controlled with Pressure -Offloading No -Treatment Response Procedure Tolerated Well #7 SACRUM -Time 10:22 -Correct Patient Yes -Correct Side, Site, Position Yes -Correct Procedure Yes -Procedure Performed Yes -Type of Procedure Debridement -Clinical Debridement Subcutaneous -Post Debridement Size (cm) - Length 1.4 -Post Debridement Size (cm) - Width 0.4 -Post Debridement Size (cm) - Depth 0.2 -Total Square Cm 0.56 -Wound/Ulcer Outcome Not Healed -Ulcer Cleansing Rinsed/ Irrigated with Saline -Foul Odor after Cleansing No -Bioengineered Tissue No -Bleeding Controlled with Pressure -Offloading No -Treatment Response Procedure Tolerated Well #6- RT MORAN SUPERIOR -Time 10:22 -Correct Patient Yes -Correct Side, Site, Position Yes -Correct Procedure Yes -Procedure Performed No -Post Debridement Size (cm) - Length 0 -Post Debridement Size (cm) - Width 0 -Post Debridement Size (cm) - Depth 0 -Total Square Cm 0 -Wound/Ulcer Outcome Healed- Epithelialized -Ulcer Cleansing Rinsed/ Irrigated with Saline -Foul Odor after Cleansing No -Bioengineered Tissue No -Bleeding Controlled with Pressure -Offloading No -Treatment Response Procedure Tolerated Well Pain Scale: 0-10 Numeric Is Patient Pain Free? Yes Wound debrided: Sacral Wound Grade/Stage: Stage III Type of Debridement: Excisional debridement Anesthesia Used: 4% Lidocaine Solution Depth: Down to and including healthy tissue, in the subcutaneous layer Percentage of wound debrided: 100 Instrument Used: 3mm curette Tissue Removed: Slough and devitalized tissue Severity: Fat Layer Exposed Amount of bleeding with debridement: Mild Bleeding Controlled with: Pressure Patient tolerated procedure well - Additional Wound Wound debrided: Left heel Wound Grade/Stage: Stage II Type of Debridement: Excisional debridement Anesthesia Used: 4% Lidocaine Solution Depth: Down to and including healthy tissue, in the subcutaneous layer Percentage of wound debrided: 100 Instrument Used: 5mm curette, Forceps, - - Scissors. Tissue Removed: Slough and devitalized tissue Severity: Fat Layer Exposed Amount of bleeding with debridement: Mild Bleeding Controlled with: Pressure Patient tolerated procedure: Patient tolerated procedure well Assessment/Plan Active Problems (Last Updated 07/19/18 @ 08:25 by Ras Patterson MD) Sacral decubitus ulcer, stage III (Chronic) Decubitus ulcer of left heel, stage 2 (Acute) Ulcer of right lower extremity with fat layer exposed (Chronic) Type 2 diabetes mellitus without complications (Chronic) Assessment: Same as above. Right mid back and right lower extremity has healed. Plan: Debridement of both ulcers done as documented above. Procedure was well- tolerated. Continue Fibrocol to all ulcers. Change daily. Adaptic to right lower extremity (healed surface). Continue increased protein intake. Optimal blood sugar control. 3M wraps for edema management. 3M wraps to her right lower extremity and Tubigrip to the left. Continue offloading left heel and monitor closely. Advised to elevate lower extremities when seated in bed. She was advised to call with any further questions or concerns. Follow-up in 1 week. This note was generated with [employer] dictation software. It may contain incorrect words, spelling, and punctuation that were not noted in checking the note before signing.
[2018-08-20 11:27] VITALS: BP 106/62; PULSE 78; RESP 18; TEMP 36.7; BMI 32.6
--- NOTE | 2018-08-20 12:18 | PCM.WC.PN ---
(1) Decubitus ulcer of left heel, stage 2 Status: Acute Current Visit: Yes Code(s): L89.622 - Pressure ulcer of left heel, stage 2 (2) Sacral decubitus ulcer, stage III Status: Chronic Current Visit: Yes Code(s): L89.153 - Pressure ulcer of sacral region, stage 3 (3) Type 2 diabetes mellitus without complications Status: Chronic Current Visit: Yes Code(s): E11.9 - Type 2 diabetes mellitus without complications (4) Ulcer of right lower extremity with fat layer exposed Status: Chronic Current Visit: Yes Code(s): L97.912 - Non-pressure chronic ulcer of unspecified part of right lower leg with fat layer exposed Type of Wound Chief Complaint: non healing right lower leg ulcer, mid back ulcer and left lower extremity redness and pain. History of Wound: Ms. Hendrix is a 67-year-old with past medical history as documented who had previously been seeing Dr. Sharma here at the wound center for nonhealing right lower extremity ulcer and is now a [place] of [place] due to several ulcers above the knee. 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 She has had some dressing done by the long-term without any significant improvement. She also has a mid back ulcer. She denies any known precipitating factor or when exactly started. She is noted to have increased redness, warmth and swelling of the left lower extremity. She denies chills, fever all otherwise feeling of unwell. She was hospitalized recently. Progress of Wound: Improving. No new complaints at this time. - Physical Exam Vital Signs Temp Pulse Resp BP 98.0 F 78 18 106/62 08/20/18 11:27 08/20/18 11:27 08/20/18 11:27 08/20/18 11:27 General: Alert, Oriented x3, Cooperative, No apparent distress HEENT: Atraumatic, Normocephalic Oral: Moist Mucosa Neck: Supple Lungs: Normal air movement Abdomen: Non Tender, Obese Extremities: No cyanosis, Edema Skin: Ulcer/ Wound Wound Measurements and Assessment WC - Nurse 1 - General Ulcer Measurement Start: 08/13/18 09:59 Freq: Status: Active Protocol: Activity Type Activity Date Activity User E-Sign Co-Sign Detail Recorded Client Recorded Date Recorded By Document 08/20/18 11:27 MW [id number] 08/20/18 11:33 MW 08/20/18 11:27 Wound Center Nurse 1 [Ulcer Assessment] #9- LT HEEL -Combined with other wound No -Current Size (cm) - Length 3 -Current Size (cm) - Width 2.5 -Current Size (cm) - Depth 0.1 -Total Square Cm 7.5 -Exudate Amt Medium -Exudate Type Serosanguineous -Wound Margin Distinct, Outline Attached -Granulation Amt Large (67-100%) -Granulation Quality Red -Slough/Fibrin Yes -Necrosis Amt Small (1-33%) -Necrotic Tissue Type Adherent Slough -Texture (Gricel-wound Skin Appearance) Assessed -Moisture (Gricel-wound Skin Appearance Assessed ) -Color (Gricel-wound Skin Appearance) Assessed -Temperature (Gricel-wound Skin No Abnormality Appearance) (Pt Warm) -Tenderness on Palpation (Gricel-wound Yes Skin Appearance) -Ulcer Cleansing Rinsed/ Irrigated with Saline -Foul Odor after Cleansing No -Anesthetic Used 5% Lidocaine Gel #7 SACRUM -Current Size (cm) - Length 1.3 -Current Size (cm) - Width 0.4 -Current Size (cm) - Depth 0.3 -Total Square Cm 0.52 -Photo Taken No -Epithelialization Small 1-33% -Classification - Thickness Full Thickness without Exposed Support Structure -Exudate Amt Medium -Exudate Type Serosanguineous -Wound Margin Distinct, Outline Attached -Granulation Amt None Present (0 %) -Slough/Fibrin Yes -Necrosis Amt Large (67-100%) -Necrotic Tissue Type Adherent Slough -Texture (Gricel-wound Skin Appearance) Assessed -Moisture (Gricel-wound Skin Appearance Assessed ) -Color (Gricel-wound Skin Appearance) Assessed -Temperature (Gricel-wound Skin No Abnormality Appearance) (Pt Warm) -Tenderness on Palpation (Gircel-wound No Skin Appearance) -Ulcer Cleansing Rinsed/ Irrigated with Saline -Foul Odor after Cleansing No -Anesthetic Used 5% Lidocaine Gel [Edema Assessment] -Right Calf (cm) 36.5 -Right Ankle (cm) 24.2 -Left Calf (cm) 41.8 -Left Ankle (cm) 26 WC - Nurse 2 - General Ulcer CM Notes Start: 08/13/18 09:59 Freq: Status: Active Protocol: Activity Type Activity Date Activity User E-Sign Co-Sign Detail Recorded Client Recorded Date Recorded By Document 08/20/18 11:35 MW [id number] 08/20/18 11:45 MW 08/20/18 11:35 Wound Center Nurse 2 [Procedure/Treatment] #9- LT HEEL -Time 11:37 -Correct Patient Yes -Correct Side, Site, Position Yes -Correct Procedure Yes -Procedure Performed Yes -Type of Procedure Debridement -Clinical Debridement Subcutaneous -Post Debridement Size (cm) - Length 3.0 -Post Debridement Size (cm) - Width 2.7 -Post Debridement Size (cm) - Depth 0.1 -Total Square Cm 8.10 -Wound/Ulcer Outcome Not Healed -Ulcer Cleansing Rinsed/ Irrigated with Saline -Foul Odor after Cleansing No -Bioengineered Tissue No -Bleeding Controlled with Pressure -Offloading No -Treatment Response Procedure Tolerated Well #7 SACRUM -Time 11:37 -Correct Patient Yes -Correct Side, Site, Position Yes -Correct Procedure Yes -Procedure Performed Yes -Type of Procedure Debridement -Clinical Debridement Subcutaneous -Post Debridement Size (cm) - Length 1.1 -Post Debridement Size (cm) - Width 0.5 -Post Debridement Size (cm) - Depth 0.2 -Total Square Cm 0.55 -Wound/Ulcer Outcome Not Healed -Ulcer Cleansing Rinsed/ Irrigated with Saline -Foul Odor after Cleansing No -Bioengineered Tissue No -Bleeding Controlled with Pressure -Offloading No -Treatment Response Procedure Tolerated Well [See Physician Procedure note for Specifics] Pain Scale: 0-10 Numeric [Pain] -Is Patient Pain Free? Yes Musculoskeletal: No Muscle Wasting Neurological: Cranial nerves II-XII grossly intact Psych/Mental Status: Normal Affect Debridement Note Post-Debridement Measurements/Treatment WC - Nurse 2 - General Ulcer CM Notes Start: 08/13/18 09:59 Freq: Status: Active Protocol: Activity Type Activity Date Activity User E-Sign Co-Sign Detail Recorded Client Recorded Date Recorded By Document 08/13/18 10:21 MW [id number] 08/13/18 10:36 MW Document 08/20/18 11:35 MW [id number] 08/20/18 11:45 MW 08/13/18 08/20/18 10:21 11:35 Wound Center Nurse 2 #9- LT HEEL -Time 10:21 11:37 -Correct Patient Yes Yes -Correct Side, Site, Position Yes Yes -Correct Procedure Yes Yes -Procedure Performed Yes Yes -Type of Procedure Debridement Debridement -Clinical Debridement Subcutaneous Subcutaneous -Post Debridement Size (cm) - Length 5.0 3.0 -Post Debridement Size (cm) - Width 4.0 2.7 -Post Debridement Size (cm) - Depth 0.1 0.1 -Total Square Cm 20.00 8.10 -Wound/Ulcer Outcome Not Healed Not Healed -Ulcer Cleansing Rinsed/ Rinsed/ Irrigated with Irrigated with Saline Saline -Foul Odor after Cleansing No No -Bioengineered Tissue No No -Bleeding Controlled with Pressure Pressure -Offloading No No -Treatment Response Procedure Procedure Tolerated Well Tolerated Well #7 SACRUM -Time 10:22 11:37 -Correct Patient Yes Yes -Correct Side, Site, Position Yes Yes -Correct Procedure Yes Yes -Procedure Performed Yes Yes -Type of Procedure Debridement Debridement -Clinical Debridement Subcutaneous Subcutaneous -Post Debridement Size (cm) - Length 1.4 1.1 -Post Debridement Size (cm) - Width 0.4 0.5 -Post Debridement Size (cm) - Depth 0.2 0.2 -Total Square Cm 0.56 0.55 -Wound/Ulcer Outcome Not Healed Not Healed -Ulcer Cleansing Rinsed/ Rinsed/ Irrigated with Irrigated with Saline Saline -Foul Odor after Cleansing No No -Bioengineered Tissue No No -Bleeding Controlled with Pressure Pressure -Offloading No No -Treatment Response Procedure Procedure Tolerated Well Tolerated Well #6- RT MORAN SUPERIOR -Time 10:22 -Correct Patient Yes -Correct Side, Site, Position Yes -Correct Procedure Yes -Procedure Performed No -Post Debridement Size (cm) - Length 0 -Post Debridement Size (cm) - Width 0 -Post Debridement Size (cm) - Depth 0 -Total Square Cm 0 -Wound/Ulcer Outcome Healed- Epithelialized -Ulcer Cleansing Rinsed/ Irrigated with Saline -Foul Odor after Cleansing No -Bioengineered Tissue No -Bleeding Controlled with Pressure -Offloading No -Treatment Response Procedure Tolerated Well Pain Scale: 0-10 Numeric Is Patient Pain Free? Yes Yes Wound debrided: Sacral Wound Grade/Stage: Stage III Type of Debridement: Excisional debridement Anesthesia Used: 5% Lidocaine Gel Depth: Down to and including healthy tissue, in the subcutaneous layer Percentage of wound debrided: 100 Instrument Used: 3mm curette Tissue Removed: Slough and devitalized tissue Severity: Fat Layer Exposed Amount of bleeding with debridement: Mild Bleeding Controlled with: Pressure Patient tolerated procedure well - Additional Wound Wound debrided: Left heel Wound Grade/Stage: Stage II Type of Debridement: Excisional debridement Anesthesia Used: 4% Lidocaine Solution Depth: Down to and including healthy tissue, in the subcutaneous layer Percentage of wound debrided: 100 Instrument Used: 5mm curette Tissue Removed: Slough and devitalized tissue Severity: Fat Layer Exposed Amount of bleeding with debridement: Mild Bleeding Controlled with: Pressure Patient tolerated procedure: Patient tolerated procedure well Assessment/Plan Active Problems (Last Updated 07/19/18 @ 08:25 by Ras Patterson MD) Sacral decubitus ulcer, stage III (Chronic) Decubitus ulcer of left heel, stage 2 (Acute) Ulcer of right lower extremity with fat layer exposed (Chronic) Type 2 diabetes mellitus without complications (Chronic) Assessment: Same as above. Right mid back and right lower extremity has healed. Plan: Debridement of both ulcers done as documented above. Procedure was well-tolerated. Continue Fibrocol to all ulcers. Change daily. Continue increased protein intake. Optimal blood sugar control. Double layer Tubigrip for edema management. Advised to elevate lower extremities when seated and in bed. Monitor sodium. She was advised to call with any further questions or concerns. Follow-up in 1 week. This note was generated with [employer] dictation software. It may contain incorrect words, spelling, and punctuation that were not noted in checking the note before signing.
--- NOTE | 2018-08-20 12:21 | PN.PCM_ITS ---
(1) Decubitus ulcer of left heel, stage 2 Status: Acute Current Visit: Yes Code(s): L89.622 - Pressure ulcer of left heel, stage 2 (2) Sacral decubitus ulcer, stage III Status: Chronic Current Visit: Yes Code(s): L89.153 - Pressure ulcer of sacral region, stage 3 (3) Type 2 diabetes mellitus without complications Status: Chronic Current Visit: Yes Code(s): E11.9 - Type 2 diabetes mellitus without complications (4) Ulcer of right lower extremity with fat layer exposed Status: Chronic Current Visit: Yes Code(s): L97.912 - Non-pressure chronic ulcer of unspecified part of right lower leg with fat layer exposed Type of Wound Chief Complaint: non healing right lower leg ulcer, mid back ulcer and left lower extremity redness and pain. History of Wound: Ms. Hendrix is a 67-year-old with past medical history as documented who had previously been seeing Dr. Sharma here at the wound center for nonhealing right lower extremity ulcer and is now a transfer of care to [place] due to several ulcers above the knee. 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 She has had some dressing done by the retirement without any significant improvement. She also has a mid back ulcer. She denies any known precipitating factor or when exactly started. She is noted to have increased redness, warmth and swelling of the left lower extremity. She denies chills, fever all otherwise feeling of unwell. She was hospitalized recently. Progress of Wound: Improving. No new complaints at this time. - Physical Exam Vital Signs Temp Pulse Resp BP 98.0 F 78 18 106/62 08/20/18 11:27 08/20/18 11:27 08/20/18 11:27 08/20/18 11:27 General: Alert, Oriented x3, Cooperative, No apparent distress HEENT: Atraumatic, Normocephalic Oral: Moist Mucosa Neck: Supple Lungs: Normal air movement Abdomen: Non Tender, Obese Extremities: No cyanosis, Edema Skin: Ulcer/ Wound Wound Measurements and Assessment WC - Nurse 1 - General Ulcer Measurement Start: 08/13/18 09:59 Freq: Status: Active Protocol: Activity Type Activity Date Activity User E-Sign Co-Sign Detail Recorded Client Recorded Date Recorded By Document 08/20/18 11:27 MW [id number] 08/20/18 11:33 MW 08/20/18 11:27 Wound Center Nurse 1 [Ulcer Assessment] #9- LT HEEL -Combined with other wound No -Current Size (cm) - Length 3 -Current Size (cm) - Width 2.5 -Current Size (cm) - Depth 0.1 -Total Square Cm 7.5 -Exudate Amt Medium -Exudate Type Serosanguineous -Wound Margin Distinct, Outline Attached -Granulation Amt Large (67-100%) -Granulation Quality Red -Slough/Fibrin Yes -Necrosis Amt Small (1-33%) -Necrotic Tissue Type Adherent Slough -Texture (Gricel-wound Skin Appearance) Assessed -Moisture (Gricel-wound Skin Appearance Assessed ) -Color (Gricel-wound Skin Appearance) Assessed -Temperature (Gricel-wound Skin No Abnormality Appearance) (Pt Warm) -Tenderness on Palpation (Gricel-wound Yes Skin Appearance) -Ulcer Cleansing Rinsed/ Irrigated with Saline -Foul Odor after Cleansing No -Anesthetic Used 5% Lidocaine Gel #7 SACRUM -Current Size (cm) - Length 1.3 -Current Size (cm) - Width 0.4 -Current Size (cm) - Depth 0.3 -Total Square Cm 0.52 -Photo Taken No -Epithelialization Small 1-33% -Classification - Thickness Full Thickness without Exposed Support Structure -Exudate Amt Medium -Exudate Type Serosanguineous -Wound Margin Distinct, Outline Attached -Granulation Amt None Present (0 %) -Slough/Fibrin Yes -Necrosis Amt Large (67-100%) -Necrotic Tissue Type Adherent Slough -Texture (Gricel-wound Skin Appearance) Assessed -Moisture (Gricel-wound Skin Appearance Assessed ) -Color (Gricel-wound Skin Appearance) Assessed -Temperature (Gricel-wound Skin No Abnormality Appearance) (Pt Warm) -Tenderness on Palpation (Gricel-wound No Skin Appearance) -Ulcer Cleansing Rinsed/ Irrigated with Saline -Foul Odor after Cleansing No -Anesthetic Used 5% Lidocaine Gel [Edema Assessment] -Right Calf (cm) 36.5 -Right Ankle (cm) 24.2 -Left Calf (cm) 41.8 -Left Ankle (cm) 26 WC - Nurse 2 - General Ulcer CM Notes Start: 08/13/18 09:59 Freq: Status: Active Protocol: Activity Type Activity Date Activity User E-Sign Co-Sign Detail Recorded Client Recorded Date Recorded By Document 08/20/18 11:35 MW [id number] 08/20/18 11:45 MW 08/20/18 11:35 Wound Center Nurse 2 [Procedure/Treatment] #9- LT HEEL -Time 11:37 -Correct Patient Yes -Correct Side, Site, Position Yes -Correct Procedure Yes -Procedure Performed Yes -Type of Procedure Debridement -Clinical Debridement Subcutaneous -Post Debridement Size (cm) - Length 3.0 -Post Debridement Size (cm) - Width 2.7 -Post Debridement Size (cm) - Depth 0.1 -Total Square Cm 8.10 -Wound/Ulcer Outcome Not Healed -Ulcer Cleansing Rinsed/ Irrigated with Saline -Foul Odor after Cleansing No -Bioengineered Tissue No -Bleeding Controlled with Pressure -Offloading No -Treatment Response Procedure Tolerated Well #7 SACRUM -Time 11:37 -Correct Patient Yes -Correct Side, Site, Position Yes -Correct Procedure Yes -Procedure Performed Yes -Type of Procedure Debridement -Clinical Debridement Subcutaneous -Post Debridement Size (cm) - Length 1.1 -Post Debridement Size (cm) - Width 0.5 -Post Debridement Size (cm) - Depth 0.2 -Total Square Cm 0.55 -Wound/Ulcer Outcome Not Healed -Ulcer Cleansing Rinsed/ Irrigated with Saline -Foul Odor after Cleansing No -Bioengineered Tissue No -Bleeding Controlled with Pressure -Offloading No -Treatment Response Procedure Tolerated Well [See Physician Procedure note for Specifics] Pain Scale: 0-10 Numeric [Pain] -Is Patient Pain Free? Yes Musculoskeletal: No Muscle Wasting Neurological: Cranial nerves II-XII grossly intact Psych/Mental Status: Normal Affect Debridement Note Post-Debridement Measurements/Treatment WC - Nurse 2 - General Ulcer CM Notes Start: 08/13/18 09:59 Freq: Status: Active Protocol: Activity Type Activity Date Activity User E-Sign Co-Sign Detail Recorded Client Recorded Date Recorded By Document 08/13/18 10:21 MW [id number] 08/13/18 10:36 MW Document 08/20/18 11:35 MW [id number] 08/20/18 11:45 MW 08/13/18 08/20/18 10:21 11:35 Wound Center Nurse 2 #9- LT HEEL -Time 10:21 11:37 -Correct Patient Yes Yes -Correct Side, Site, Position Yes Yes -Correct Procedure Yes Yes -Procedure Performed Yes Yes -Type of Procedure Debridement Debridement -Clinical Debridement Subcutaneous Subcutaneous -Post Debridement Size (cm) - Length 5.0 3.0 -Post Debridement Size (cm) - Width 4.0 2.7 -Post Debridement Size (cm) - Depth 0.1 0.1 -Total Square Cm 20.00 8.10 -Wound/Ulcer Outcome Not Healed Not Healed -Ulcer Cleansing Rinsed/ Rinsed/ Irrigated with Irrigated with Saline Saline -Foul Odor after Cleansing No No -Bioengineered Tissue No No -Bleeding Controlled with Pressure Pressure -Offloading No No -Treatment Response Procedure Procedure Tolerated Well Tolerated Well #7 SACRUM -Time 10:22 11:37 -Correct Patient Yes Yes -Correct Side, Site, Position Yes Yes -Correct Procedure Yes Yes -Procedure Performed Yes Yes -Type of Procedure Debridement Debridement -Clinical Debridement Subcutaneous Subcutaneous -Post Debridement Size (cm) - Length 1.4 1.1 -Post Debridement Size (cm) - Width 0.4 0.5 -Post Debridement Size (cm) - Depth 0.2 0.2 -Total Square Cm 0.56 0.55 -Wound/Ulcer Outcome Not Healed Not Healed -Ulcer Cleansing Rinsed/ Rinsed/ Irrigated with Irrigated with Saline Saline -Foul Odor after Cleansing No No -Bioengineered Tissue No No -Bleeding Controlled with Pressure Pressure -Offloading No No -Treatment Response Procedure Procedure Tolerated Well Tolerated Well #6- RT MORAN SUPERIOR -Time 10:22 -Correct Patient Yes -Correct Side, Site, Position Yes -Correct Procedure Yes -Procedure Performed No -Post Debridement Size (cm) - Length 0 -Post Debridement Size (cm) - Width 0 -Post Debridement Size (cm) - Depth 0 -Total Square Cm 0 -Wound/Ulcer Outcome Healed- Epithelialized -Ulcer Cleansing Rinsed/ Irrigated with Saline -Foul Odor after Cleansing No -Bioengineered Tissue No -Bleeding Controlled with Pressure -Offloading No -Treatment Response Procedure Tolerated Well Pain Scale: 0-10 Numeric Is Patient Pain Free? Yes Yes Wound debrided: Sacral Wound Grade/Stage: Stage III Type of Debridement: Excisional debridement Anesthesia Used: 5% Lidocaine Gel Depth: Down to and including healthy tissue, in the subcutaneous layer Percentage of wound debrided: 100 Instrument Used: 3mm curette Tissue Removed: Slough and devitalized tissue Severity: Fat Layer Exposed Amount of bleeding with debridement: Mild Bleeding Controlled with: Pressure Patient tolerated procedure well - Additional Wound Wound debrided: Left heel Wound Grade/Stage: Stage II Type of Debridement: Excisional debridement Anesthesia Used: 4% Lidocaine Solution Depth: Down to and including healthy tissue, in the subcutaneous layer Percentage of wound debrided: 100 Instrument Used: 5mm curette Tissue Removed: Slough and devitalized tissue Severity: Fat Layer Exposed Amount of bleeding with debridement: Mild Bleeding Controlled with: Pressure Patient tolerated procedure: Patient tolerated procedure well Assessment/Plan Active Problems (Last Updated 07/19/18 @ 08:25 by Ras Patterson MD) Sacral decubitus ulcer, stage III (Chronic) Decubitus ulcer of left heel, stage 2 (Acute) Ulcer of right lower extremity with fat layer exposed (Chronic) Type 2 diabetes mellitus without complications (Chronic) Assessment: Same as above. Right mid back and right lower extremity has healed. Plan: Debridement of both ulcers done as documented above. Procedure was well- tolerated. Continue Fibrocol to all ulcers. Change daily. Continue increased protein intake. Optimal blood sugar control. Double layer Tubigrip for edema management. Advised to elevate lower extremities when seated and in bed. Monitor sodium. She was advised to call with any further questions or concerns. Follow-up in 1 week. This note was generated with [employer] dictation software. It may contain incorrect words, spelling, and punctuation that were not noted in checking the note before signing.
--- NOTE | 2018-08-27 11:31 | PN.PCM_ITS ---
(1) Decubitus ulcer of left heel, stage 2 Status: Acute Current Visit: Yes Code(s): L89.622 - Pressure ulcer of left heel, stage 2 (2) Sacral decubitus ulcer, stage III Status: Chronic Current Visit: Yes Code(s): L89.153 - Pressure ulcer of sacral region, stage 3 (3) Type 2 diabetes mellitus without complications Status: Chronic Current Visit: Yes Code(s): E11.9 - Type 2 diabetes mellitus without complications (4) Ulcer of right lower extremity with fat layer exposed Status: Chronic Current Visit: Yes Code(s): L97.912 - Non-pressure chronic ulcer of unspecified part of right lower leg with fat layer exposed Type of Wound Chief Complaint: non healing right lower leg ulcer, mid back ulcer and left lower extremity redness and pain. History of Wound: Ms. Hendrix is a 67-year-old with past medical history as documented who had previously been seeing Dr. Sharma here at the wound center for nonhealing right lower extremity ulcer and is now [facility] the knee. 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 She has had some dressing done by the long term without any significant improvement. She also has a mid back ulcer. She denies any known precipitating factor or when exactly started. She is noted to have increased redness, warmth and swelling of the left lower extremity. She denies chills, fever all otherwise feeling of unwell. She was hospitalized recently. Progress of Wound: Improving. No new complaints at this time. - Physical Exam Vital Signs Temp Pulse Resp BP 98.0 F 78 18 106/62 08/20/18 11:27 08/20/18 11:27 08/20/18 11:27 08/20/18 11:27 General: Alert, Oriented x3, Cooperative, No apparent distress HEENT: Atraumatic, Normocephalic Oral: Moist Mucosa Neck: Supple Lungs: Normal air movement Abdomen: Non Tender, Obese Extremities: No cyanosis, Edema Skin: Ulcer/ Wound Wound Measurements and Assessment WC - Nurse 2 - General Ulcer CM Notes Start: 08/13/18 09:59 Freq: Status: Active Protocol: Activity Type Activity Date Activity User E-Sign Co-Sign Detail Recorded Client Recorded Date Recorded By Document 08/27/18 10:26 MW [id number] 08/27/18 10:33 MW 08/27/18 10:26 Wound Center Nurse 2 [Procedure/Treatment] #9- LT HEEL -Time 10:30 -Correct Patient Yes -Correct Side, Site, Position Yes -Correct Procedure Yes -Procedure Performed Yes -Type of Procedure Debridement -Clinical Debridement Subcutaneous -Post Debridement Size (cm) - Length 2.5 -Post Debridement Size (cm) - Width 2.0 -Post Debridement Size (cm) - Depth 0.1 -Total Square Cm 5.00 -Wound/Ulcer Outcome Not Healed -Ulcer Cleansing Rinsed/ Irrigated with Saline -Foul Odor after Cleansing No -Bioengineered Tissue No -Bleeding Controlled with Pressure -Other NURSES HAT TO LEFT HEEL, KEEP PRESSURE OFF HEEL -Offloading Yes -Treatment Response Procedure Tolerated Well #7 SACRUM -Time 10:26 -Correct Patient Yes -Correct Side, Site, Position Yes -Correct Procedure Yes -Procedure Performed Yes -Type of Procedure Debridement -Clinical Debridement Subcutaneous -Post Debridement Size (cm) - Length 1.0 -Post Debridement Size (cm) - Width 0.3 -Post Debridement Size (cm) - Depth 0.1 -Total Square Cm 0.30 -Wound/Ulcer Outcome Not Healed -Ulcer Cleansing Rinsed/ Irrigated with Saline -Foul Odor after Cleansing No -Bioengineered Tissue No -Bleeding Controlled with Pressure -Offloading No -Treatment Response Procedure Tolerated Well [See Physician Procedure note for Specifics] Pain Scale: 0-10 Numeric [Pain] -Is Patient Pain Free? Yes Musculoskeletal: No Muscle Wasting Neurological: Cranial nerves II-XII grossly intact Psych/Mental Status: Normal Affect Debridement Note Post-Debridement Measurements/Treatment WC - Nurse 2 - General Ulcer CM Notes Start: 08/13/18 09:59 Freq: Status: Active Protocol: Activity Type Activity Date Activity User E-Sign Co-Sign Detail Recorded Client Recorded Date Recorded By Document 08/13/18 10:21 MW [id number] 08/13/18 10:36 MW Document 08/20/18 11:35 MW [id number] 08/20/18 11:45 MW Document 08/27/18 10:26 MW [id number] 08/27/18 10:33 MW 08/13/18 08/20/18 08/27/18 10:21 11:35 10:26 Wound Center Nurse 2 #9- LT HEEL -Time 10:21 11:37 10:30 -Correct Patient Yes Yes Yes -Correct Side, Site, Position Yes Yes Yes -Correct Procedure Yes Yes Yes -Procedure Performed Yes Yes Yes -Type of Procedure Debridement Debridement Debridement -Clinical Debridement Subcutaneous Subcutaneous Subcutaneous -Post Debridement Size (cm) - Length 5.0 3.0 2.5 -Post Debridement Size (cm) - Width 4.0 2.7 2.0 -Post Debridement Size (cm) - Depth 0.1 0.1 0.1 -Total Square Cm 20.00 8.10 5.00 -Wound/Ulcer Outcome Not Healed Not Healed Not Healed -Ulcer Cleansing Rinsed/ Rinsed/ Rinsed/ Irrigated with Irrigated with Irrigated with Saline Saline Saline -Foul Odor after Cleansing No No No -Bioengineered Tissue No No No -Bleeding Controlled with Pressure Pressure Pressure -Other NURSES HAT TO LEFT HEEL, KEEP PRESSURE OFF HEEL -Offloading No No Yes -Treatment Response Procedure Procedure Procedure Tolerated Well Tolerated Well Tolerated Well #7 SACRUM -Time 10: 11:37 10:26 -Correct Patient Yes Yes Yes -Correct Side, Site, Position Yes Yes Yes -Correct Procedure Yes Yes Yes -Procedure Performed Yes Yes Yes -Type of Procedure Debridement Debridement Debridement -Clinical Debridement Subcutaneous Subcutaneous Subcutaneous -Post Debridement Size (cm) - Length 1.4 1.1 1.0 -Post Debridement Size (cm) - Width 0.4 0.5 0.3 -Post Debridement Size (cm) - Depth 0.2 0.2 0.1 -Total Square Cm 0.56 0.55 0.30 -Wound/Ulcer Outcome Not Healed Not Healed Not Healed -Ulcer Cleansing Rinsed/ Rinsed/ Rinsed/ Irrigated with Irrigated with Irrigated with Saline Saline Saline -Foul Odor after Cleansing No No No -Bioengineered Tissue No No No -Bleeding Controlled with Pressure Pressure Pressure -Offloading No No No -Treatment Response Procedure Procedure Procedure Tolerated Well Tolerated Well Tolerated Well #6- RT MORAN SUPERIOR -Time 10:22 -Correct Patient Yes -Correct Side, Site, Position Yes -Correct Procedure Yes -Procedure Performed No -Post Debridement Size (cm) - Length 0 -Post Debridement Size (cm) - Width 0 -Post Debridement Size (cm) - Depth 0 -Total Square Cm 0 -Wound/Ulcer Outcome Healed- Epithelialized -Ulcer Cleansing Rinsed/ Irrigated with Saline -Foul Odor after Cleansing No -Bioengineered Tissue No -Bleeding Controlled with Pressure -Offloading No -Treatment Response Procedure Tolerated Well Pain Scale: 0-10 Numeric Is Patient Pain Free? Yes Yes Yes Wound debrided: Sacral Wound Grade/Stage: Stage III Type of Debridement: Excisional debridement Anesthesia Used: 4% Lidocaine Solution Depth: Down to and including healthy tissue, in the subcutaneous layer Percentage of wound debrided: 100 Instrument Used: 3mm curette Tissue Removed: Slough and devitalized tissue Severity: Fat Layer Exposed Amount of bleeding with debridement: Mild Bleeding Controlled with: Pressure Patient tolerated procedure well - Additional Wound Wound debrided: Left heel Wound Grade/Stage: Stage II Type of Debridement: Excisional debridement Anesthesia Used: 4% Lidocaine Solution Depth: Down to and including healthy tissue, in the subcutaneous layer Percentage of wound debrided: 100 Instrument Used: 5mm curette Tissue Removed: Slough and devitalized tissue Severity: Fat Layer Exposed Amount of bleeding with debridement: Mild Bleeding Controlled with: Pressure Patient tolerated procedure: Patient tolerated procedure well Assessment/Plan Active Problems (Last Updated 07/19/18 @ 08:25 by Ras Patterson MD) Sacral decubitus ulcer, stage III (Chronic) Decubitus ulcer of left heel, stage 2 (Acute) Ulcer of right lower extremity with fat layer exposed (Chronic) Type 2 diabetes mellitus without complications (Chronic) Assessment: Same as above. Right mid back and right lower extremity has healed. Plan: Debridement of both ulcers done as documented above. Procedure was well- tolerated. Continue Fibrocol to both ulcers. Change daily. Continue increased protein intake. Optimal blood sugar control. Double layer Tubigrip for edema management. Advised to elevate lower extremities when seated and in bed. Monitor sodium. She was advised to call with any further questions or concerns. Follow-up in 1 week. This note was generated with [employer] dictation software. It may contain incorrect words, spelling, and punctuation that were not noted in checking the note before signing.
[2018-09-03 11:03] VITALS: BP 151/89; PULSE 69; RESP 18; TEMP 36.9; BMI 32.6
--- NOTE | 2018-09-03 12:39 | PCM.WC.PN ---
(1) Decubitus ulcer of left heel, stage 2 Status: Acute Current Visit: Yes Code(s): L89.622 - Pressure ulcer of left heel, stage 2 (2) Sacral decubitus ulcer, stage III Status: Chronic Current Visit: Yes Code(s): L89.153 - Pressure ulcer of sacral region, stage 3 (3) Type 2 diabetes mellitus without complications Status: Chronic Current Visit: Yes Code(s): E11.9 - Type 2 diabetes mellitus without complications (4) Ulcer of right lower extremity with fat layer exposed Status: Chronic Current Visit: Yes Code(s): L97.912 - Non-pressure chronic ulcer of unspecified part of right lower leg with fat layer exposed Type of Wound Chief Complaint: non healing right lower leg ulcer, mid back ulcer and left lower extremity redness and pain. History of Wound: Ms. Hendrix is a 67-year-old with past medical history as documented who had previously been seeing Dr. Sharma here at the wound center for nonhealing right lower extremity ulcer and is now a [facility] due to several ulcers above the knee. 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 She has had some dressing done by the [facility] without any significant improvement. She also has a mid back ulcer. She denies any known precipitating factor or when exactly started. She is noted to have increased redness, warmth and swelling of the left lower extremity. She denies chills, fever all otherwise feeling of unwell. She was hospitalized recently. Progress of Wound: Periwound maceration around the sacrum. Heel is improving. - Physical Exam Vital Signs Temp Pulse Resp BP 98.4 F 69 18 151/89 H 09/03/18 11:03 09/03/18 11:03 09/03/18 11:03 09/03/18 11:03 General: Alert, Oriented x3, Cooperative, No apparent distress HEENT: Atraumatic, Normocephalic Oral: Moist Mucosa Neck: Supple Lungs: Normal air movement Abdomen: Non Tender, Obese Extremities: No cyanosis, Edema Skin: Ulcer/ Wound Wound Measurements and Assessment WC - Nurse 1 - General Ulcer Measurement Start: 08/13/18 09:59 Freq: Status: Active Protocol: Activity Type Activity Date Activity User E-Sign Co-Sign Detail Recorded Client Recorded Date Recorded By Document 09/03/18 11:03 DL [id number] 09/03/18 11:13 DL 09/03/18 11:03 Wound Center Nurse 1 [Ulcer Assessment] #9- LT HEEL -Current Size (cm) - Length 1.5 -Current Size (cm) - Width 0.9 -Current Size (cm) - Depth 0.1 -Total Square Cm 1.35 -Photo Taken No -Exudate Amt Small -Exudate Type Serosanguineous -Wound Margin Distinct, Outline Attached -Granulation Amt Large (67-100%) -Granulation Quality Red -Necrosis Amt Small (1-33%) -Necrotic Tissue Type Adherent Slough -Structure Exposed N/A -Texture (Gricel-wound Skin Appearance) Scarring -Moisture (Gricel-wound Skin Appearance Dry/Scaly ) -Color (Gricel-wound Skin Appearance) Rubor -Temperature (Gricel-wound Skin No Abnormality Appearance) (Pt Warm) -Tenderness on Palpation (Gricel-wound No Skin Appearance) -Ulcer Cleansing Rinsed/ Irrigated with Saline -Foul Odor after Cleansing No -Anesthetic Used 4% Lidocaine Solution #7 SACRUM -Current Size (cm) - Length 1 -Current Size (cm) - Width 0.4 -Current Size (cm) - Depth 0.3 -Total Square Cm 0.4 -Photo Taken No -Exudate Amt Medium -Exudate Type Serosanguineous -Wound Margin Thickened -Granulation Amt Small (1-33%) -Granulation Quality [place] -Necrosis Amt Small (1-33%) -Necrotic Tissue Type Adherent Slough -Structure Exposed N/A -Texture (Gricel-wound Skin Appearance) Scarring -Moisture (Gricel-wound Skin Appearance Maceration ) -Color (Gricel-wound Skin Appearance) Rubor -Temperature (Gricel-wound Skin No Abnormality Appearance) (Pt Warm) -Tenderness on Palpation (Gricel-wound No Skin Appearance) -Ulcer Cleansing Rinsed/ Irrigated with Saline -Foul Odor after Cleansing No -Anesthetic Used 4% Lidocaine Solution [Edema Assessment] -Right Calf (cm) 42.2 -Right Ankle (cm) 28.5 -Left Calf (cm) 42 -Left Ankle (cm) 26 Musculoskeletal: No Muscle Wasting Neurological: Cranial nerves II-XII grossly intact Psych/Mental Status: Normal Affect Debridement Note Post-Debridement Measurements/Treatment WC - Nurse 2 - General Ulcer CM Notes Start: 08/13/18 09:59 Freq: Status: Active Protocol: Activity Type Activity Date Activity User E-Sign Co-Sign Detail Recorded Client Recorded Date Recorded By Document 08/13/18 10:21 MW [id number] 08/13/18 10:36 MW Document 08/20/18 11:35 MW [id number] 08/20/18 11:45 MW Document 08/27/18 10:26 MW [id number] 08/27/18 10:33 MW 08/13/18 08/20/18 08/27/18 10:21 11:35 10:26 Wound Center Nurse 2 #9- LT HEEL -Time 10:21 11:37 10:30 -Correct Patient Yes Yes Yes -Correct Side, Site, Position Yes Yes Yes -Correct Procedure Yes Yes Yes -Procedure Performed Yes Yes Yes -Type of Procedure Debridement Debridement Debridement -Clinical Debridement Subcutaneous Subcutaneous Subcutaneous -Post Debridement Size (cm) - Length 5.0 3.0 2.5 -Post Debridement Size (cm) - Width 4.0 2.7 2.0 -Post Debridement Size (cm) - Depth 0.1 0.1 0.1 -Total Square Cm 20.00 8.10 5.00 -Wound/Ulcer Outcome Not Healed Not Healed Not Healed -Ulcer Cleansing Rinsed/ Rinsed/ Rinsed/ Irrigated with Irrigated with Irrigated with Saline Saline Saline -Foul Odor after Cleansing No No No -Bioengineered Tissue No No No -Bleeding Controlled with Pressure Pressure Pressure -Other NURSES HAT TO LEFT HEEL, KEEP PRESSURE OFF HEEL -Offloading No No Yes -Treatment Response Procedure Procedure Procedure Tolerated Well Tolerated Well Tolerated Well #7 SACRUM -Time 10:22 11:37 10:26 -Correct Patient Yes Yes Yes -Correct Side, Site, Position Yes Yes Yes -Correct Procedure Yes Yes Yes -Procedure Performed Yes Yes Yes -Type of Procedure Debridement Debridement Debridement -Clinical Debridement Subcutaneous Subcutaneous Subcutaneous -Post Debridement Size (cm) - Length 1.4 1.1 1.0 -Post Debridement Size (cm) - Width 0.4 0.5 0.3 -Post Debridement Size (cm) - Depth 0.2 0.2 0.1 -Total Square Cm 0.56 0.55 0.30 -Wound/Ulcer Outcome Not Healed Not Healed Not Healed -Ulcer Cleansing Rinsed/ Rinsed/ Rinsed/ Irrigated with Irrigated with Irrigated with Saline Saline Saline -Foul Odor after Cleansing No No No -Bioengineered Tissue No No No -Bleeding Controlled with Pressure Pressure Pressure -Offloading No No No -Treatment Response Procedure Procedure Procedure Tolerated Well Tolerated Well Tolerated Well #6- RT MORAN SUPERIOR -Time 10:22 -Correct Patient Yes -Correct Side, Site, Position Yes -Correct Procedure Yes -Procedure Performed No -Post Debridement Size (cm) - Length 0 -Post Debridement Size (cm) - Width 0 -Post Debridement Size (cm) - Depth 0 -Total Square Cm 0 -Wound/Ulcer Outcome Healed- Epithelialized -Ulcer Cleansing Rinsed/ Irrigated with Saline -Foul Odor after Cleansing No -Bioengineered Tissue No -Bleeding Controlled with Pressure -Offloading No -Treatment Response Procedure Tolerated Well Pain Scale: 0-10 Numeric Is Patient Pain Free? Yes Yes Yes Wound debrided: Left heel Wound Grade/Stage: Stage II Type of Debridement: Excisional debridement Anesthesia Used: 4% Lidocaine Solution Depth: Down to and including healthy tissue, in the subcutaneous layer Percentage of wound debrided: 100 Instrument Used: 5mm curette Tissue Removed: Slough and devitalized tissue Severity: Fat Layer Exposed Amount of bleeding with debridement: Mild Bleeding Controlled with: Pressure Patient tolerated procedure well - Additional Wound Wound debrided: Sacrum Wound Grade/Stage: Stage III Type of Debridement: Excisional debridement Anesthesia Used: 4% Lidocaine Solution Depth: Down to and including healthy tissue, in the subcutaneous layer Percentage of wound debrided: 100 Instrument Used: 3mm curette Tissue Removed: Slough and devitalized tissue Severity: Fat Layer Exposed Amount of bleeding with debridement: Mild Bleeding Controlled with: Pressure Patient tolerated procedure: Patient tolerated procedure well Assessment/Plan Active Problems (Last Updated 07/19/18 @ 08:25 by Ras Patterson MD) Sacral decubitus ulcer, stage III (Chronic) Decubitus ulcer of left heel, stage 2 (Acute) Ulcer of right lower extremity with fat layer exposed (Chronic) Type 2 diabetes mellitus without complications (Chronic) Assessment: Same as above. Right mid back and right lower extremity has healed. Plan: Debridement of both ulcers done as documented above. Procedure was well-tolerated. Continue Fibrocol to left heel and switch to Promogran to sacrum. Change daily. Continue increased protein intake. Optimal blood sugar control. Double layer Tubigrip for edema management. Advised to elevate lower extremities when seated and in bed. Monitor sodium. She was advised to call with any further questions or concerns. Follow-up in 1 week. This note was generated with [employer] dictation software. It may contain incorrect words, spelling, and punctuation that were not noted in checking the note before signing.
--- NOTE | 2018-09-03 12:42 | PN.PCM_ITS ---
(1) Decubitus ulcer of left heel, stage 2 Status: Acute Current Visit: Yes Code(s): L89.622 - Pressure ulcer of left heel, stage 2 (2) Sacral decubitus ulcer, stage III Status: Chronic Current Visit: Yes Code(s): L89.153 - Pressure ulcer of sacral region, stage 3 (3) Type 2 diabetes mellitus without complications Status: Chronic Current Visit: Yes Code(s): E11.9 - Type 2 diabetes mellitus without complications (4) Ulcer of right lower extremity with fat layer exposed Status: Chronic Current Visit: Yes Code(s): L97.912 - Non-pressure chronic ulcer of unspecified part of right lower leg with fat layer exposed Type of Wound Chief Complaint: non healing right lower leg ulcer, mid back ulcer and left lower extremity redness and pain. History of Wound: Ms. Hendrix is a 67-year-old with past medical history as documented who had previously been seeing Dr. Sharma here at the wound center for nonhealing right lower extremity ulcer and is now a transfer of care to tx due to several ulcers above the knee. 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 She has had some dressing done by the [facility] without any significant improvement. She also has a mid back ulcer. She denies any known precipitating factor or when exactly started. She is noted to have increased redness, warmth and swelling of the left lower extremity. She denies chills, fever all otherwise feeling of unwell. She was hospitalized recently. Progress of Wound: Periwound maceration around the sacrum. Heel is improving. - Physical Exam Vital Signs Temp Pulse Resp BP 98.4 F 69 18 151/89 H 09/03/18 11:03 09/03/18 11:03 09/03/18 11:03 09/03/18 11:03 General: Alert, Oriented x3, Cooperative, No apparent distress HEENT: Atraumatic, Normocephalic Oral: Moist Mucosa Neck: Supple Lungs: Normal air movement Abdomen: Non Tender, Obese Extremities: No cyanosis, Edema Skin: Ulcer/ Wound Wound Measurements and Assessment WC - Nurse 1 - General Ulcer Measurement Start: 08/13/18 09:59 Freq: Status: Active Protocol: Activity Type Activity Date Activity User E-Sign Co-Sign Detail Recorded Client Recorded Date Recorded By Document 09/03/18 11:03 DL [id number] 09/03/18 11:13 DL 09/03/18 11:03 Wound Center Nurse 1 [Ulcer Assessment] #9- LT HEEL -Current Size (cm) - Length 1.5 -Current Size (cm) - Width 0.9 -Current Size (cm) - Depth 0.1 -Total Square Cm 1.35 -Photo Taken No -Exudate Amt Small -Exudate Type Serosanguineous -Wound Margin Distinct, Outline Attached -Granulation Amt Large (67-100%) -Granulation Quality Red -Necrosis Amt Small (1-33%) -Necrotic Tissue Type Adherent Slough -Structure Exposed N/A -Texture (Gricel-wound Skin Appearance) Scarring -Moisture (Gricel-wound Skin Appearance Dry/Scaly ) -Color (Gricel-wound Skin Appearance) Rubor -Temperature (Gricel-wound Skin No Abnormality Appearance) (Pt Warm) -Tenderness on Palpation (Gricel-wound No Skin Appearance) -Ulcer Cleansing Rinsed/ Irrigated with Saline -Foul Odor after Cleansing No -Anesthetic Used 4% Lidocaine Solution #7 SACRUM -Current Size (cm) - Length 1 -Current Size (cm) - Width 0.4 -Current Size (cm) - Depth 0.3 -Total Square Cm 0.4 -Photo Taken No -Exudate Amt Medium -Exudate Type Serosanguineous -Wound Margin Thickened -Granulation Amt Small (1-33%) -Granulation Quality [place] -Necrosis Amt Small (1-33%) -Necrotic Tissue Type Adherent Slough -Structure Exposed N/A -Texture (Gricel-wound Skin Appearance) Scarring -Moisture (Gricel-wound Skin Appearance Maceration ) -Color (Gricel-wound Skin Appearance) Rubor -Temperature (Gricel-wound Skin No Abnormality Appearance) (Pt Warm) -Tenderness on Palpation (Gricel-wound No Skin Appearance) -Ulcer Cleansing Rinsed/ Irrigated with Saline -Foul Odor after Cleansing No -Anesthetic Used 4% Lidocaine Solution [Edema Assessment] -Right Calf (cm) 42.2 -Right Ankle (cm) 28.5 -Left Calf (cm) 42 -Left Ankle (cm) 26 Musculoskeletal: No Muscle Wasting Neurological: Cranial nerves II-XII grossly intact Psych/Mental Status: Normal Affect Debridement Note Post-Debridement Measurements/Treatment WC - Nurse 2 - General Ulcer CM Notes Start: 08/13/18 09:59 Freq: Status: Active Protocol: Activity Type Activity Date Activity User E-Sign Co-Sign Detail Recorded Client Recorded Date Recorded By Document 08/13/18 10:21 MW [id number] 08/13/18 10:36 MW Document 08/20/18 11:35 MW [id number] 08/20/18 11:45 MW Document 08/27/18 10:26 MW [id number] 08/27/18 10:33 MW 08/13/18 08/20/18 08/27/18 10:21 11:35 10:26 Wound Center Nurse 2 #9- LT HEEL -Time 10:21 11:37 10:30 -Correct Patient Yes Yes Yes -Correct Side, Site, Position Yes Yes Yes -Correct Procedure Yes Yes Yes -Procedure Performed Yes Yes Yes -Type of Procedure Debridement Debridement Debridement -Clinical Debridement Subcutaneous Subcutaneous Subcutaneous -Post Debridement Size (cm) - Length 5.0 3.0 2.5 -Post Debridement Size (cm) - Width 4.0 2.7 2.0 -Post Debridement Size (cm) - Depth 0.1 0.1 0.1 -Total Square Cm 20.00 8.10 5.00 -Wound/Ulcer Outcome Not Healed Not Healed Not Healed -Ulcer Cleansing Rinsed/ Rinsed/ Rinsed/ Irrigated with Irrigated with Irrigated with Saline Saline Saline -Foul Odor after Cleansing No No No -Bioengineered Tissue No No No -Bleeding Controlled with Pressure Pressure Pressure -Other NURSES HAT TO LEFT HEEL, KEEP PRESSURE OFF HEEL -Offloading No No Yes -Treatment Response Procedure Procedure Procedure Tolerated Well Tolerated Well Tolerated Well #7 SACRUM -Time 10:22 11:37 10:26 -Correct Patient Yes Yes Yes -Correct Side, Site, Position Yes Yes Yes -Correct Procedure Yes Yes Yes -Procedure Performed Yes Yes Yes -Type of Procedure Debridement Debridement Debridement -Clinical Debridement Subcutaneous Subcutaneous Subcutaneous -Post Debridement Size (cm) - Length 1.4 1.1 1.0 -Post Debridement Size (cm) - Width 0.4 0.5 0.3 -Post Debridement Size (cm) - Depth 0.2 0.2 0.1 -Total Square Cm 0.56 0.55 0.30 -Wound/Ulcer Outcome Not Healed Not Healed Not Healed -Ulcer Cleansing Rinsed/ Rinsed/ Rinsed/ Irrigated with Irrigated with Irrigated with Saline Saline Saline -Foul Odor after Cleansing No No No -Bioengineered Tissue No No No -Bleeding Controlled with Pressure Pressure Pressure -Offloading No No No -Treatment Response Procedure Procedure Procedure Tolerated Well Tolerated Well Tolerated Well #6- RT MORAN SUPERIOR -Time 10:22 -Correct Patient Yes -Correct Side, Site, Position Yes -Correct Procedure Yes -Procedure Performed No -Post Debridement Size (cm) - Length 0 -Post Debridement Size (cm) - Width 0 -Post Debridement Size (cm) - Depth 0 -Total Square Cm 0 -Wound/Ulcer Outcome Healed- Epithelialized -Ulcer Cleansing Rinsed/ Irrigated with Saline -Foul Odor after Cleansing No -Bioengineered Tissue No -Bleeding Controlled with Pressure -Offloading No -Treatment Response Procedure Tolerated Well Pain Scale: 0-10 Numeric Is Patient Pain Free? Yes Yes Yes Wound debrided: Left heel Wound Grade/Stage: Stage II Type of Debridement: Excisional debridement Anesthesia Used: 4% Lidocaine Solution Depth: Down to and including healthy tissue, in the subcutaneous layer Percentage of wound debrided: 100 Instrument Used: 5mm curette Tissue Removed: Slough and devitalized tissue Severity: Fat Layer Exposed Amount of bleeding with debridement: Mild Bleeding Controlled with: Pressure Patient tolerated procedure well - Additional Wound Wound debrided: Sacrum Wound Grade/Stage: Stage III Type of Debridement: Excisional debridement Anesthesia Used: 4% Lidocaine Solution Depth: Down to and including healthy tissue, in the subcutaneous layer Percentage of wound debrided: 100 Instrument Used: 3mm curette Tissue Removed: Slough and devitalized tissue Severity: Fat Layer Exposed Amount of bleeding with debridement: Mild Bleeding Controlled with: Pressure Patient tolerated procedure: Patient tolerated procedure well Assessment/Plan Active Problems (Last Updated 07/19/18 @ 08:25 by Ras Patterson MD) Sacral decubitus ulcer, stage III (Chronic) Decubitus ulcer of left heel, stage 2 (Acute) Ulcer of right lower extremity with fat layer exposed (Chronic) Type 2 diabetes mellitus without complications (Chronic) Assessment: Same as above. Right mid back and right lower extremity has healed. Plan: Debridement of both ulcers done as documented above. Procedure was well-t olerated. Continue Fibrocol to left heel and switch to Promogran to sacrum. Change daily. Continue increased protein intake. Optimal blood sugar control. Double layer Tubigrip for edema management. Advised to elevate lower extremities when seated and in bed. Monitor sodium. She was advised to call with any further questions or concerns. Follow-up in 1 week. This note was generated with [employer] dictation software. It may contain incorrect words, spelling, and punctuation that were not noted in checking the note before signing.
== END 2018-09-03 23:59 ==
LOC: WC 10:15
PROVIDERS: Family Provider Family Medicine Geriatric Medicine; PCP Family Medicine Geriatric Medicine; Visit Provider Internal Medicine
DX: E11.622 Type 2 diabetes mellitus with other skin ulcer (principal); L89.153 Pressure ulcer of sacral region, stage 3; L89.622 Pressure ulcer of left heel, stage 2; E11.621 Type 2 diabetes mellitus with foot ulcer
CPT/HCPCS: 11042; 11045; 29581

== ENCOUNTER → 2018-09-10 14:54 | Outpatient (CLI) | payer MEDICARE, OTHER, SELFPAY ==
[2018-09-03 11:03] VITALS: BMI 32.6
== END ==
PROVIDERS: Family Provider Family Medicine Geriatric Medicine; PCP Family Medicine Geriatric Medicine; Referring Provider Family Medicine Geriatric Medicine; Visit Provider Family Medicine Geriatric Medicine
DX: R50.9 Fever, unspecified (principal)
CPT/HCPCS: 87633

== ENCOUNTER 2018-09-17 10:00 | Outpatient (RCR) | payer SELFPAY ==
[2018-09-04 01:07] VITALS: BP 151/89; PULSE 69; RESP 18; TEMP 36.9
[2018-09-17 10:13] VITALS: BP 147/77; PULSE 72; RESP 16; TEMP 36.6; BMI 32.6
--- NOTE | 2018-09-17 11:12 | PCM.WC.PN ---
(1) Decubitus ulcer of left heel, stage 2 Status: Acute Current Visit: Yes Code(s): L89.622 - Pressure ulcer of left heel, stage 2 (2) Sacral decubitus ulcer, stage III Status: Chronic Current Visit: Yes Code(s): L89.153 - Pressure ulcer of sacral region, stage 3 Type of Wound Chief Complaint: non healing right lower leg ulcer, mid back ulcer and left lower extremity redness and pain. History of Wound: Ms. Hendrix is a 67-year-old with past medical history as documented who had previously been seeing Dr. Sharma here at the wound center for nonhealing right lower extremity ulcer and is now a transfer of care to sc due to several ulcers above the knee. 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 She has had some dressing done by the custodial without any significant improvement. She also has a mid back ulcer. She denies any known precipitating factor or when exactly started. She is noted to have increased redness, warmth and swelling of the left lower extremity. She denies chills, fever all otherwise feeling of unwell. She was hospitalized recently. Progress of Wound: Improving. No new concerns at this time. - Physical Exam Vital Signs Temp Pulse Resp BP 98 F 72 16 147/77 H 09/17/18 10:13 09/17/18 10:13 09/17/18 10:13 09/17/18 10:13 General: Alert, Oriented x3, Cooperative, No apparent distress HEENT: Atraumatic, Normocephalic Oral: Moist Mucosa Neck: Supple Lungs: Normal air movement Abdomen: Non Tender, Obese Extremities: No cyanosis, Edema Skin: Ulcer/ Wound Wound Measurements and Assessment WC - Nurse 1 - General Ulcer Measurement Start: 09/10/18 11:06 Freq: Status: Active Protocol: Activity Type Activity Date Activity User E-Sign Co-Sign Detail Recorded Client Recorded Date Recorded By Document 09/17/18 10:13 [facility] [id number] 09/17/18 10:26 [facility] 09/17/18 10:13 Wound Center Nurse 1 [Ulcer Assessment] #9- LT HEEL -Combined with other wound No -Current Size (cm) - Length 1.1 -Current Size (cm) - Width 0.7 -Current Size (cm) - Depth 0.1 -Total Square Cm 0.77 -Photo Taken No -Epithelialization Small 1-33% -Tunneling No -Undermining/Tunneling No -Circular Undermining No -Exudate Amt Small -Exudate Type Serous -Wound Margin Flat & Intact -Granulation Amt Small (1-33%) -Granulation Quality [place] -Slough/Fibrin Yes -Necrosis Amt Large (67-100%) -Necrotic Tissue Type Adherent Slough -Texture (Gricel-wound Skin Appearance) Scarring -Moisture (Gricel-wound Skin Appearance Dry/Scaly ) -Color (Gricel-wound Skin Appearance) Erythema -Temperature (Gricel-wound Skin No Abnormality Appearance) (Pt Warm) -Tenderness on Palpation (Gricel-wound No Skin Appearance) -Ulcer Cleansing Rinsed/ Irrigated with Saline -Foul Odor after Cleansing No -Anesthetic Used 5% Lidocaine Gel #7 SACRUM -Combined with other wound No -Current Size (cm) - Length 1 -Current Size (cm) - Width 0.3 -Current Size (cm) - Depth 0.3 -Total Square Cm 0.3 -Photo Taken No -Epithelialization None Present -Tunneling No -Undermining/Tunneling No -Circular Undermining No -Exudate Amt Small -Exudate Type Serous -Wound Margin Thickened -Granulation Amt Small (1-33%) -Granulation Quality Red -Slough/Fibrin Yes -Necrosis Amt Large (67-100%) -Necrotic Tissue Type Adherent Slough -Texture (Gricel-wound Skin Appearance) Scarring -Moisture (Gricel-wound Skin Appearance Maceration ) -Color (Gricel-wound Skin Appearance) Erythema Palor -Temperature (Gricel-wound Skin No Abnormality Appearance) (Pt Warm) -Tenderness on Palpation (Gricel-wound No Skin Appearance) -Ulcer Cleansing Wound Cleanser -Foul Odor after Cleansing No -Anesthetic Used 5% Lidocaine Gel [Edema Assessment] -Lower Limb Edema Present Yes -Left Calf (cm) 40 -Left Ankle (cm) 25.6 WC - Nurse 2 - General Ulcer CM Notes Start: 09/10/18 11:06 Freq: Status: Active Protocol: Activity Type Activity Date Activity User E-Sign Co-Sign Detail Recorded Client Recorded Date Recorded By Document 09/17/18 10:36 MW [id number] 09/17/18 10:45 MW 09/17/18 10:36 Wound Center Nurse 2 [Procedure/Treatment] #9- LT HEEL -Time 10:36 -Correct Patient Yes -Correct Side, Site, Position Yes -Correct Procedure Yes -Procedure Performed Yes -Type of Procedure Debridement -Clinical Debridement Subcutaneous -Post Debridement Size (cm) - Length 1.0 -Post Debridement Size (cm) - Width 0.6 -Post Debridement Size (cm) - Depth 0.1 -Total Square Cm 0.60 -Wound/Ulcer Outcome Not Healed -Ulcer Cleansing Rinsed/ Irrigated with Saline -Foul Odor after Cleansing No -Bioengineered Tissue No -Bleeding Controlled with Pressure -Offloading No -Treatment Response Procedure Tolerated Well #7 SACRUM -Time 10:37 -Correct Patient Yes -Correct Side, Site, Position Yes -Correct Procedure Yes -Procedure Performed Yes -Type of Procedure Debridement -Clinical Debridement Subcutaneous -Post Debridement Size (cm) - Length 0.9 -Post Debridement Size (cm) - Width 0.3 -Post Debridement Size (cm) - Depth 0.2 -Total Square Cm 0.27 -Wound/Ulcer Outcome Not Healed -Ulcer Cleansing Rinsed/ Irrigated with Saline -Foul Odor after Cleansing No -Bioengineered Tissue No -Bleeding Controlled with Pressure -Offloading No -Treatment Response Procedure Tolerated Well [See Physician Procedure note for Specifics] Pain Scale: 0-10 Numeric [Pain] -Is Patient Pain Free? Yes Musculoskeletal: No Muscle Wasting Neurological: Cranial nerves II-XII grossly intact Psych/Mental Status: Normal Affect Debridement Note Post-Debridement Measurements/Treatment WC - Nurse 2 - General Ulcer CM Notes Start: 09/10/18 11:06 Freq: Status: Active Protocol: Activity Type Activity Date Activity User E-Sign Co-Sign Detail Recorded Client Recorded Date Recorded By Document 09/17/18 10:36 MW [id number] 09/17/18 10:45 MW 09/17/18 10:36 Wound Center Nurse 2 #9- LT HEEL -Time 10:36 -Correct Patient Yes -Correct Side, Site, Position Yes -Correct Procedure Yes -Procedure Performed Yes -Type of Procedure Debridement -Clinical Debridement Subcutaneous -Post Debridement Size (cm) - Length 1.0 -Post Debridement Size (cm) - Width 0.6 -Post Debridement Size (cm) - Depth 0.1 -Total Square Cm 0.60 -Wound/Ulcer Outcome Not Healed -Ulcer Cleansing Rinsed/ Irrigated with Saline -Foul Odor after Cleansing No -Bioengineered Tissue No -Bleeding Controlled with Pressure -Offloading No -Treatment Response Procedure Tolerated Well #7 SACRUM -Time 10:37 -Correct Patient Yes -Correct Side, Site, Position Yes -Correct Procedure Yes -Procedure Performed Yes -Type of Procedure Debridement -Clinical Debridement Subcutaneous -Post Debridement Size (cm) - Length 0.9 -Post Debridement Size (cm) - Width 0.3 -Post Debridement Size (cm) - Depth 0.2 -Total Square Cm 0.27 -Wound/Ulcer Outcome Not Healed -Ulcer Cleansing Rinsed/ Irrigated with Saline -Foul Odor after Cleansing No -Bioengineered Tissue No -Bleeding Controlled with Pressure -Offloading No -Treatment Response Procedure Tolerated Well Pain Scale: 0-10 Numeric Is Patient Pain Free? Yes Wound debrided: Sacral Wound Grade/Stage: Stage III Type of Debridement: Excisional debridement Anesthesia Used: 4% Lidocaine Solution Depth: Down to and including healthy tissue, in the subcutaneous layer Percentage of wound debrided: 100 Instrument Used: 3mm curette Tissue Removed: Slough and devitalized tissue Severity: Fat Layer Exposed Amount of bleeding with debridement: Mild Bleeding Controlled with: Pressure Patient tolerated procedure well - Additional Wound Wound debrided: Left heel Wound Grade/Stage: Stage II Type of Debridement: Excisional debridement Anesthesia Used: 4% Lidocaine Solution Depth: Down to and including healthy tissue, in the subcutaneous layer Percentage of wound debrided: 100 Instrument Used: 5mm curette Tissue Removed: Slough and devitalized tissue Severity: Fat Layer Exposed Amount of bleeding with debridement: Mild Bleeding Controlled with: Pressure Patient tolerated procedure: Patient tolerated procedure well Assessment/Plan Active Problems (Last Updated 07/19/18 @ 08:25 by Ras Patterson MD) Sacral decubitus ulcer, stage III (Chronic) Decubitus ulcer of left heel, stage 2 (Acute) Assessment: Same as above. Right mid back and right lower extremity has healed. Plan: Debridement of both ulcers done as documented above. Procedure was well-tolerated. Continue Fibrocol to left heel and Promogran to sacrum. Change daily. Continue increased protein intake. Optimal blood sugar control. Double layer Tubigrip for edema management. Will also order CircAid's for long-term edema management. Patient strongly advised to elevate her lower extremities when seated and in bed. Continues to have significant lower extremity edema. She was advised to call with any further questions or concerns. Follow-up in 1 week. This note was generated with [employer] dictation software. It may contain incorrect words, spelling, and punctuation that were not noted in checking the note before signing.
--- NOTE | 2018-09-17 11:17 | PN.PCM_ITS ---
(1) Decubitus ulcer of left heel, stage 2 Status: Acute Current Visit: Yes Code(s): L89.622 - Pressure ulcer of left heel, stage 2 (2) Sacral decubitus ulcer, stage III Status: Chronic Current Visit: Yes Code(s): L89.153 - Pressure ulcer of sacral region, stage 3 Type of Wound Chief Complaint: non healing right lower leg ulcer, mid back ulcer and left lo wer extremity redness and pain. History of Wound: Ms. Hendrix is a 67-year-old with past medical history as documented who had previously been seeing Dr. Sharma here at the wound center for nonhealing right lower extremity ulcer and is now a transfer of care to ar due to several ulcers above the knee. 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 She has had some dressing done by the senior living without any significant improvement. She also has a mid back ulcer. She denies any known precipitating factor or when exactly started. She is noted to have increased redness, warmth and swelling of the left lower extremity. She denies chills, fever all otherwise feeling of unwell. She was hospitalized recently. Progress of Wound: Improving. No new concerns at this time. - Physical Exam Vital Signs Temp Pulse Resp BP 98 F 72 16 147/77 H 09/17/18 10:13 09/17/18 10:13 09/17/18 10:13 09/17/18 10:13 General: Alert, Oriented x3, Cooperative, No apparent distress HEENT: Atraumatic, Normocephalic Oral: Moist Mucosa Neck: Supple Lungs: Normal air movement Abdomen: Non Tender, Obese Extremities: No cyanosis, Edema Skin: Ulcer/ Wound Wound Measurements and Assessment WC - Nurse 1 - General Ulcer Measurement Start: 09/10/18 11:06 Freq: Status: Active Protocol: Activity Type Activity Date Activity User E-Sign Co-Sign Detail Recorded Client Recorded Date Recorded By Document 09/17/18 10:13 [facility] [id number] 09/17/18 10:26 [facility] 09/17/18 10:13 Wound Center Nurse 1 [Ulcer Assessment] #9- LT HEEL -Combined with other wound No -Current Size (cm) - Length 1.1 -Current Size (cm) - Width 0.7 -Current Size (cm) - Depth 0.1 -Total Square Cm 0.77 -Photo Taken No -Epithelialization Small 1-33% -Tunneling No -Undermining/Tunneling No -Circular Undermining No -Exudate Amt Small -Exudate Type Serous -Wound Margin Flat & Intact -Granulation Amt Small (1-33%) -Granulation Quality [place] -Slough/Fibrin Yes -Necrosis Amt Large (67-100%) -Necrotic Tissue Type Adherent Slough -Texture (Gricel-wound Skin Appearance) Scarring -Moisture (Gricel-wound Skin Appearance Dry/Scaly ) -Color (Gricel-wound Skin Appearance) Erythema -Temperature (Gricel-wound Skin No Abnormality Appearance) (Pt Warm) -Tenderness on Palpation (Gricel-wound No Skin Appearance) -Ulcer Cleansing Rinsed/ Irrigated with Saline -Foul Odor after Cleansing No -Anesthetic Used 5% Lidocaine Gel #7 SACRUM -Combined with other wound No -Current Size (cm) - Length 1 -Current Size (cm) - Width 0.3 -Current Size (cm) - Depth 0.3 -Total Square Cm 0.3 -Photo Taken No -Epithelialization None Present -Tunneling No -Undermining/Tunneling No -Circular Undermining No -Exudate Amt Small -Exudate Type Serous -Wound Margin Thickened -Granulation Amt Small (1-33%) -Granulation Quality Red -Slough/Fibrin Yes -Necrosis Amt Large (67-100%) -Necrotic Tissue Type Adherent Slough -Texture (Gricel-wound Skin Appearance) Scarring -Moisture (Gricel-wound Skin Appearance Maceration ) -Color (Gricel-wound Skin Appearance) Erythema Palor -Temperature (Gricel-wound Skin No Abnormality Appearance) (Pt Warm) -Tenderness on Palpation (Gricel-wound No Skin Appearance) -Ulcer Cleansing Wound Cleanser -Foul Odor after Cleansing No -Anesthetic Used 5% Lidocaine Gel [Edema Assessment] -Lower Limb Edema Present Yes -Left Calf (cm) 40 -Left Ankle (cm) 25.6 WC - Nurse 2 - General Ulcer CM Notes Start: 09/10/18 11:06 Freq: Status: Active Protocol: Activity Type Activity Date Activity User E-Sign Co-Sign Detail Recorded Client Recorded Date Recorded By Document 09/17/18 10:36 MW [id number] 09/17/18 10:45 MW 09/17/18 10:36 Wound Center Nurse 2 [Procedure/Treatment] #9- LT HEEL -Time 10:36 -Correct Patient Yes -Correct Side, Site, Position Yes -Correct Procedure Yes -Procedure Performed Yes -Type of Procedure Debridement -Clinical Debridement Subcutaneous -Post Debridement Size (cm) - Length 1.0 -Post Debridement Size (cm) - Width 0.6 -Post Debridement Size (cm) - Depth 0.1 -Total Square Cm 0.60 -Wound/Ulcer Outcome Not Healed -Ulcer Cleansing Rinsed/ Irrigated with Saline -Foul Odor after Cleansing No -Bioengineered Tissue No -Bleeding Controlled with Pressure -Offloading No -Treatment Response Procedure Tolerated Well #7 SACRUM -Time 10:37 -Correct Patient Yes -Correct Side, Site, Position Yes -Correct Procedure Yes -Procedure Performed Yes -Type of Procedure Debridement -Clinical Debridement Subcutaneous -Post Debridement Size (cm) - Length 0.9 -Post Debridement Size (cm) - Width 0.3 -Post Debridement Size (cm) - Depth 0.2 -Total Square Cm 0.27 -Wound/Ulcer Outcome Not Healed -Ulcer Cleansing Rinsed/ Irrigated with Saline -Foul Odor after Cleansing No -Bioengineered Tissue No -Bleeding Controlled with Pressure -Offloading No -Treatment Response Procedure Tolerated Well [See Physician Procedure note for Specifics] Pain Scale: 0-10 Numeric [Pain] -Is Patient Pain Free? Yes Musculoskeletal: No Muscle Wasting Neurological: Cranial nerves II-XII grossly intact Psych/Mental Status: Normal Affect Debridement Note Post-Debridement Measurements/Treatment WC - Nurse 2 - General Ulcer CM Notes Start: 09/10/18 11:06 Freq: Status: Active Protocol: Activity Type Activity Date Activity User E-Sign Co-Sign Detail Recorded Client Recorded Date Recorded By Document 09/17/18 10:36 MW [id number] 09/17/18 10:45 MW 09/17/18 10:36 Wound Center Nurse 2 #9- LT HEEL -Time 10:36 -Correct Patient Yes -Correct Side, Site, Position Yes -Correct Procedure Yes -Procedure Performed Yes -Type of Procedure Debridement -Clinical Debridement Subcutaneous -Post Debridement Size (cm) - Length 1.0 -Post Debridement Size (cm) - Width 0.6 -Post Debridement Size (cm) - Depth 0.1 -Total Square Cm 0.60 -Wound/Ulcer Outcome Not Healed -Ulcer Cleansing Rinsed/ Irrigated with Saline -Foul Odor after Cleansing No -Bioengineered Tissue No -Bleeding Controlled with Pressure -Offloading No -Treatment Response Procedure Tolerated Well #7 SACRUM -Time 10:37 -Correct Patient Yes -Correct Side, Site, Position Yes -Correct Procedure Yes -Procedure Performed Yes -Type of Procedure Debridement -Clinical Debridement Subcutaneous -Post Debridement Size (cm) - Length 0.9 -Post Debridement Size (cm) - Width 0.3 -Post Debridement Size (cm) - Depth 0.2 -Total Square Cm 0.27 -Wound/Ulcer Outcome Not Healed -Ulcer Cleansing Rinsed/ Irrigated with Saline -Foul Odor after Cleansing No -Bioengineered Tissue No -Bleeding Controlled with Pressure -Offloading No -Treatment Response Procedure Tolerated Well Pain Scale: 0-10 Numeric Is Patient Pain Free? Yes Wound debrided: Sacral Wound Grade/Stage: Stage III Type of Debridement: Excisional debridement Anesthesia Used: 4% Lidocaine Solution Depth: Down to and including healthy tissue, in the subcutaneous layer Percentage of wound debrided: 100 Instrument Used: 3mm curette Tissue Removed: Slough and devitalized tissue Severity: Fat Layer Exposed Amount of bleeding with debridement: Mild Bleeding Controlled with: Pressure Patient tolerated procedure well - Additional Wound Wound debrided: Left heel Wound Grade/Stage: Stage II Type of Debridement: Excisional debridement Anesthesia Used: 4% Lidocaine Solution Depth: Down to and including healthy tissue, in the subcutaneous layer Percentage of wound debrided: 100 Instrument Used: 5mm curette Tissue Removed: Slough and devitalized tissue Severity: Fat Layer Exposed Amount of bleeding with debridement: Mild Bleeding Controlled with: Pressure Patient tolerated procedure: Patient tolerated procedure well Assessment/Plan Active Problems (Last Updated 07/19/18 @ 08:25 by Ras Patterson MD) Sacral decubitus ulcer, stage III (Chronic) Decubitus ulcer of left heel, stage 2 (Acute) Assessment: Same as above. Right mid back and right lower extremity has healed. Plan: Debridement of both ulcers done as documented above. Procedure was well- tolerated. Continue Fibrocol to left heel and Promogran to sacrum. Change daily. Continue increased protein intake. Optimal blood sugar control. Double layer Tubigrip for edema management. Will also order CircAid's for long-term edema management. Patient strongly advised to elevate her lower extremities when seated and in bed. Continues to have significant lower extremity edema. She was advised to call with any further questions or concerns. Follow-up in 1 week. This note was generated with [employer] dictation software. It may contain incorrect words, spelling, and punctuation that were not noted in checking the note before signing.
== END 2018-10-04 23:59 ==
LOC: WC 10:00
PROVIDERS: Family Provider Family Medicine Geriatric Medicine; PCP Family Medicine Geriatric Medicine; Visit Provider Internal Medicine
DX: E11.622 Type 2 diabetes mellitus with other skin ulcer (principal); E11.621 Type 2 diabetes mellitus with foot ulcer; L89.622 Pressure ulcer of left heel, stage 2; L89.153 Pressure ulcer of sacral region, stage 3
CPT/HCPCS: 11042

== ENCOUNTER 2018-09-21 05:45 | Inpatient (IN) | payer MEDICARE, OTHER, SELFPAY ==
[2018-09-21] VITALS (14 sets, daily range): BP systolic 116–179; BP diastolic 60–91; PULSE 59–90; RESP 16–22; TEMP 36.6–37.5; O2SAT 90–98; BMI 33.8; BMI 33.6; BMI 33.7
--- NOTE | 2018-09-21 06:04 | RAD_ITS ---
STUDY: X-RAY - LEFT FEMUR REASON FOR STUDY: Female, 67 years old. Fall, left leg pain more so in the knee. TECHNIQUE: 5 view(s) of the femur. COMPARISON: 11/22/2016 FINDINGS: Status post ORIF with intramedullary josé and compression screw placement. Distal interlocking screw. Maintained hardware. It is post total knee arthroplasty. Distal femur just superior to the femoral arthroplasty demonstrate an oblique fracture with posterior step off by approximately 0.6 cm, adjacent soft tissue swelling, fat/fluid level in the knee joint. There is suspicion for osteopenia. There are atherosclerotic vascular calcifications. RAD/Femur Min 2 Views IMPRESSION: Acute oblique minimally displaced fracture of the distal femoral metaphyses extending into the prostheses with soft tissue swelling and fat fluid effusion. Probable osteopenia. Status post ORIF of the left hip. Atherosclerosis. Electronically Signed: Virginia Silva MD at 7:02 EDT , Service support ,
--- NOTE | 2018-09-21 06:04 | RAD_ITS ---
STUDY: X-RAY CHEST REASON FOR EXAM: Female, 67 years old. Status post fall, knee pain TECHNIQUE: Single AP portable view of the chest. COMPARISON: 07/18/2018. 11/22/2016. FINDINGS: There are superimposed monitor leads. Stable persistent elevation of the right hemidiaphragm. Atelectatic changes in the right base. Mild increase of interstitial prominence since most recent examination with areas of hyperinflation, most pronounced in the right upper lung. Mild blunting of the right costophrenic angle. Normal size heart. Normal mediastinum and bala. Normal visualized pulmonary arteries. There is atherosclerotic calcification of the aortic arch with tortuosity. There are diffuse degenerative changes of the visualized thoracic spine. There is demineralization of osseous structures. There is degenerative osteoarthritis of the bilateral shoulders. There is no demonstrated abnormality of the visualized soft tissue structures of the upper abdomen. RAD/Chest 1 View IMPRESSION: Diffuse interstitial lung disease, component of COPD suspected, atelectasis along the elevated right hemidiaphragm. There is no demonstrated pneumothorax. Other nonacute findings as outlined above. Electronically Signed: Virginia Silva MD at 7:16 EDT , Service support ,
--- NOTE | 2018-09-21 06:04 | RAD_ITS ---
STUDY: X-RAY - PELVIS REASON FOR EXAM: Female, 67 years old. Status post fall, knee pain TECHNIQUE: One view of the pelvis was obtained. COMPARISON: 11/22/2016 FINDINGS: There are degenerative changes of the visualized lumbar spine. There are atherosclerotic vascular calcifications of the pelvic arteries. There is demineralization of osseous structures. Postsurgical changes right pelvis. There is narrowing with cortical sclerosis and osteophyte formation of the sacroiliac joint consistent with degenerative osteoarthritic changes. Normal visualized bilateral superior and inferior pubic rami. Normal pubic symphysis. Normal ischial tuberosities. Normal visualized right femoral head. Normal right acetabulum. There is mild articular joint space narrowing of the right hip. Interval ORIF of the left femur with intact metal hardware and alignment. Normal left acetabulum. There is mild articular joint space narrowing of the left hip. RAD/Pelvis 1 or 2 Views IMPRESSION: Osteopenia and degenerative changes with postsurgical changes of the left femur. There is no acute displaced fracture or dislocation. Electronically Signed: Virginia Silva MD at 7:04 EDT , Service support ,
--- NOTE | 2018-09-21 06:04 | RAD_ITS ---
STUDY: X-RAY - LEFT KNEE REASON FOR EXAM: Female, 67 years old. Status post fall, knee pain TECHNIQUE: 2 view(s) of the knee. COMPARISON: None. FINDINGS: Status post total knee arthroplasty. Mild osteopenia. There is an acute oblique fracture with mild dorsal angulation and posterior step-off of 0.5 cm of the distal femoral metaphyses extending into the prosthesis. There is adjacent soft tissue swelling, fluid fat level in the knee joint. There are atherosclerotic calcifications. RAD/Knee 1 or 2 Views IMPRESSION: Acute oblique fracture of the distal femur extending into the prosthesis with soft tissue and joint reactions as above. Electronically Signed: Virginia Silva MD at 7:15 EDT , Service support ,
[2018-09-21 06:20] LABS: Absolute Lymphocyte Count 1.53 X10^3/ul (0.83-4.51); Absolute Neutrophil Count 7.8 X10^3/uL (2.0-7.7); Basophil# 0.02 X10^3/uL; Basophil% 0.2 % (0-1); Eosinophil# 0.11 X10^3/uL; Eosinophils% 1.1 % (0-5); Hematocrit 44.2 % (37-47); Hemoglobin 13.5 g/dl (12.0-15.0); Lymphocyte # 1.53 X10^3/ul (4.0); Lymphocyte % 14.9 % (19-41); Mean Corp Hgb Conc 30.5 g/gl (32-36); Mean Corpuscular Hgb 29.3 pg (27.0-32.0); Mean Corpuscular Volume 95.9 fL (81-99); Mean Platelet Vol. 11.3 fl (6.2-12.0); Monocyte# 0.77 X10^3/uL; Monocyte% 7.5 % (0-10); Neutrophil # 7.84 X10^3/uL (2.7-7.7); Platelet Count 179 K/mm3 (150-450); RBC Distribution Width CV 14.2 % (11.6-14.6); RBC Distribution Width SD 48.2 fl (35.1-43.9); Red Blood Count 4.61 M/mm3 (4.2-5.4); White Blood Count 10.3 K/mm3 (4.4-11.0)
[2018-09-21 06:28] LABS: POSITIVE COUNT NO; POSITIVE DIFFERENTIAL NO; POSITIVE MORPHOLOGY NO
[2018-09-21 06:29] LABS: Anion Gap -1 (5-15); BUN 21 mg/dL (7-18); BUN/Creat Ratio 27.9 RATIO (10-20); Calcium,Total 8.3 mg/dL (8.5-10.1); Chloride 108 mmol/L (98-107); Creatinine, Serum 0.75 mg/dL (0.55-1.02); EST Glomerular Filtration Rate 81 mL/min (>60); Est Glom Filt Rate - Afr Amer 98 mL/min (>60); Estimated Creatinine Clearance 45.85 ml/min; Glucose 169 mg/dL (74-106); Potassium 3.7 mmol/L (3.5-5.1); Sodium Level 141 mmol/L (136-145)
[2018-09-21] MEDS: Ondansetron 4 MG/2 ML Vial IV (06:37)
[2018-09-21] MEDS: Morphine 4 MG/ML Syringe IV (06:37)
[2018-09-21 06:56] LABS: CPK Total, Creatine Kinase 68 U/L (26-192)
--- NOTE | 2018-09-21 07:00 | PCM.HP.STD ---
Problem List (1) Sacral decubitus ulcer, stage III Status: Chronic (2) Decubitus ulcer of left heel, stage 2 Status: Chronic (3) Type 2 diabetes mellitus without complications Status: Chronic Qualifiers: Diabetes mellitus group home insulin use: without group home use Qualified Code(s): E11.9 - Type 2 diabetes mellitus without complications (4) PVD (peripheral vascular disease) Status: Chronic (5) Asthma Status: Chronic Qualifiers: Asthma complication type: unspecified History of Present Illness Date of Admission: 09/21/18 Chief Complaint: Fall, left knee pain - 1 day The patient is a 67 year old F with past medical history of chronic sacral and left foot ulcers followed in up in the wound center, hypertension, type II DM, diet controlled, obesity, history of gastric bypass who comes in after a fall and sustained left knee pain. Patient has history of left knee prosthesis, she admits that occasionally her left knee will buckle and she will catch herself. Last night as she was trying to get her night gown, had left knee buckled and she was unable to catch herself resulting in a fall. She laid on the ground from 11 PM until this morning when her niece found her. She denied any recent illness, no dizziness or chest pain or shortness of breath. Vitals in the ED show temperature of 98.0F, blood pressure was 179/91, heart rate was 90, SPO2 was 96% on 2 L of oxygen. RBC count of 10.3, hemoglobin 13.5, platelet 179, sodium was 141, potassium 3.7, chloride 108, bicarbonate 34, BUN 21, creatinine 0.75, CK 68. EKG was pending in the ED at the time of being examined. Past Medical History Past Medical History (Chronic Problems): Chronic Problems (Last Updated 07/19/18 @ 08:25 by Ras Patterson MD) Sacral decubitus ulcer, stage III (Chronic) Decubitus ulcer of left heel, stage 2 (Chronic) Ulcer of right lower extremity with fat layer exposed (Chronic) Type 2 diabetes mellitus without complications (Chronic) PVD (peripheral vascular disease) (Chronic) Lower extremity edema (Chronic) Delayed wound healing (Chronic) Neuropathic pain (Chronic) Asthma (Chronic) Other secondary pulmonary hypertension (Chronic) Murmur, cardiac (Chronic) Medical History: Medical History (Last Updated 07/19/18 @ 08:25 by Ras Patterson MD) Other secondary pulmonary hypertension (Chronic) I27.29 Anemia D64.9 Depression F32.9 GERD (gastroesophageal reflux disease) K21.9 CHIDI (obstructive sleep apnea) G47.33 Type 2 diabetes mellitus E11.9 Hyperlipidemia E78.5 Hypertension I10 Nonrheumatic aortic (valve) stenosis I35.0 Nonrheumatic mitral (valve) stenosis I34.2 Diabetes (Inactive) E11.9 GERD (gastroesophageal reflux disease) (Inactive) K21.9 Hyperlipidemia (Inactive) E78.5 Mitral stenosis (Inactive) I05.0 Allergies lisinopril Adverse Reaction (Intermediate, Verified 09/21/18 05:46) Unknown penicillin G Adverse Reaction (Intermediate, Verified 09/21/18 05:46) Unknown exenatide [From Byetta] Adverse Reaction (Unknown, Verified 09/21/18 05:46) Unknown Home Medications: Ambulatory Orders Medication Instructions Recorded Aspirin [Aspirin, Baby] 81 mg PO DAILY@0800 03/24/15 Escitalopram Oxalate [Lexapro] 20 mg PO DAILY 03/24/15 Montelukast [Singulair] 10 mg PO DAILY 03/24/15 Multivitamins,Ther W-Minerals 1 tab PO DAILY 03/24/15 [Multivitamin With Minerals] Omeprazole [Prilosec] 40 mg PO DAILY 03/24/15 Pravastatin [Pravachol] 20 mg PO QHS 03/24/15 gabapentin 300 mg capsule 600 mg PO QHS cap 10/20/17 polysaccharide iron complex 150 mg 150 mg PO QDAY cap 10/20/17 iron capsule furosemide 20 mg tablet 20 mg PO QDAY #30 tab 11/11/17 Oxybutynin Chloride [Ditropan Xl] 15 mg PO DAILY 03/30/18 Acetaminophen [Tylenol Tablet] 650 mg PO Q6H PRN PRN tablet 07/21/18 Lactobacillus Acidophilus 1 tab PO DAILY #30 tab 07/21/18 [Acidophilus] Loperamide [Imodium] 2 mg PO Q4H PRN PRN #0 capsule 07/21/18 Pilocarpine HCl 5 mg PO TID #0 07/21/18 Famotidine 1 tab PO DAILY 09/21/18 traMADol [Ultram] 1 tab PO BID 09/21/18 Surgical History: Surgical History (Last Updated 07/19/18 @ 08:25 by Ras Patterson MD) History of cholecystectomy Z98.890, Z90.49 History of total left knee replacement Z96.652 Surgical History: cholecystectomy, gastric bypass, total hip arthroplasty, total knee arthroplasty, - - Hernia repair, partial colectomy Psychiatric History: Anxiety, Depression [employer]ING [employer] History: No pertinent [employer] history Lives: With Family Smoking Status: Former smoker Tobacco Use: Non-smoker Alcohol: None Drugs: None - *Family History Maternal Family History: Family History (Last Reviewed 07/19/18 @ 06:56 by Britton Bryan MD) Sister CAD (coronary artery disease) Hx of CABG History Items: No pertinent history Paternal Family History: Family History (Last Reviewed 07/19/18 @ 06:56 by Britton Bryan MD) Sister CAD (coronary artery disease) Hx of CABG History Items: No pertinent history Sibling Family History: Family History (Last Reviewed 07/19/18 @ 06:56 by Britton Bryan MD) Sister CAD (coronary artery disease) Hx of CABG History Items: Heart Disease Review of Systems Constitutional: Denies: Anorexia, Chills, Fever, Weakness, Weight Change Eyes: Denies: Blurred vision, Cataracts, Conjunctivae Inflammation, Double vision HEENT: Reports: Nasal Congestion - recent URI. Denies: Difficulty Hearing, Difficulty Swallowing, Head Aches, Hearing Changes, Sinus Congestion, Sinus Drainage Cardiovascular: Denies: Chest Pain, Heaviness, Light Headedness, Orthopnea, Palpitations, Paroxysmal Noc. Dyspnea Respiratory: Denies: Cough, Hemoptysis, Shortness of Breath, Shortness of breath at rest, Shortness of breath upon exertion, Sputum production Gastrointestinal: Denies: Abdominal Pain, Constipation, Dyspepsia, Nausea, Melena, Vomiting Genitourinary: Denies: Dysuria, Frequency, Incontinence Musculoskeletal: Denies: Joint Pain, Joint stiffness, Joint swelling, Joint Tenderness Skin: Denies: Rash, Wounds Neurological: Denies: Difficulty swallowing, Focal weakness, Numbness, Tingling Psychiatric: Denies: Anxiety, Depression, Homicidal Ideations, Suicidal Ideations Hematologic/ Lymphatic: Denies: Easy Bruising, Easy Bleeding VTE Information - Inpt Only VTE Present on Admission: No VTE Pharm Prophylaxis ordered?: Yes - Physical Exam General: Alert, Oriented x3, Cooperative, No apparent distress, - - obese HEENT: Atraumatic, PERRLA, EOMI, Normocephalic Oral: Moist Mucosa Neck: Supple, No JVD, Negative Carotid Bruits Lungs: Clear to auscultation, Normal air movement Cardiovascular: Regular rate, Regular Rhythm, Normal S1, Normal S2, Murmur - 3/6 holosystolic murmur Abdomen: Bowel Sounds Present, Soft, Non Tender, Non-Distended, Obese, - - Midline scar Extremities: Edema - bipedal +2, both lower legs, [place] hoses on, tenderness and deformity of left knee Skin: No rashes Musculoskeletal: Tenderness - and deformity of left knee Lymphatic: No Cervical, Supraclavicular, or Inguinal Adenopathy Neurological: Cranial nerves II-XII grossly intact Psych/Mental Status: Normal Affect, Appropriate Vital Signs Temp Pulse Resp BP Pulse Ox 98.0 F 90 18 179/91 H 96 09/21/18 05:51 09/21/18 05:46 09/21/18 05:46 09/21/18 05:46 09/21/18 05:51 Oxygen Flow Rate (L/min) 2 Oxygen Delivery Method Nasal Cannula Weight: 89.4 kg Body Mass Index (BMI) 33.8 Finger Stick Blood Glucose 148 Laboratory Tests Past 24 Hrs 09/21/18 09/21/18 09/21/18 06:08 06:08 06:08 WBC 10.3 RBC 4.61 Hgb 13.5 Hct 44.2 MCV 95.9 MCH 29.3 MCHC 30.5 L RDW 14.2 RDW Differential 48.2 H Plt Count 179 MPV 11.3 Immature Gran % (Auto) 0.300 Neut % (Auto) 76.0 H Lymph % (Auto) 14.9 L Smyth % (Auto) 7.5 Eos % (Auto) 1.1 Baso % (Auto) 0.2 Absolute Neuts (auto) 7.8 H Absolute Lymphs (auto) 1.53 Total Counted Not Reportable Sodium 141 Potassium 3.7 Chloride 108 H Carbon Dioxide 34.0 H Anion Gap -1 L BUN 21 H Creatinine 0.75 Estim Creat Clear Calc 45.85 Est GFR (MDRD) Af Amer 98 Est GFR (MDRD) Non-Af 81 BUN/Creatinine Ratio 27.9 H Glucose 169 H Calcium 8.3 L Total Creatine Kinase 68 Assessment/Plan All Active Problems (Last Updated 07/19/18 @ 08:25 by Ras Patterson MD) Ulcer of back (Acute) Cellulitis of left lower extremity (Acute) Sepsis (Acute) Acute cystitis (Acute) Decubitus ulcer (Acute) 67 year old F with past medical history of chronic sacral and right foot ulcers followed in up in the wound center, hypertension, type II DM, diet controlled, obesity, history of gastric bypass who comes in after a fall and sustained left knee pain. 1. Acute traumatic distal left femoral fracture with extension into previous left knee prosthesis, seen on x-ray, osteopenia noted on x-ray Plan: Admit to the [facility] floor, pain control, orthopedic consult, follow-up on results of the EKG, No active cardiac complaints. Patient is low to moderate risk for planned procedure 2. Hypertension, controlled, not on medications, will continue to monitor 3. Type II DM, diet controlled, last HgbA1c in Jul 2018 was 4.4, not on medications, continue to monitor, with Accu-Cheks and low-dose insulin sliding scale 4. Hyperlipidemia, on statin 5. Chronic sacral decubitus ulcer as well as right foot ulcer, history of underlining chronic edema being followed up in the outpatient, on Lasix in the outpatient, will consult wound nurse and continue on Lasix 6. Anxiety/depression, on Lexapro 7. History of gastric bypass, multiple abdominal surgeries, history of diarrhea on and off, on as needed Imodium 8. DVT PPx- Lovenox Code Visit Inpatient E&M: 73692 Init Hosp L3
--- NOTE | 2018-09-21 07:00 | ED.VISSUMM ---
- ER Visit Summary Date of Service: 09/21/18 Chief Complaint: Fall History of Present Illness: The patient is a 67 F history of diet-controlled diabetes, hypertension and anemia. Patient's had a prior hip fracture with a orthopedic surgery and a prior left knee replacement. She states she was walking in her room last night to get ready for bed. Her left leg gave out she fell landing awkwardly and injuring her left knee. She is complaining of pain on the left hip, femur and knee. She denies hitting her head. No LOC. She said before she fell she felt fine. Just at the leg gave out and she went down. States she laid on the floor 5 or 6 hours until someone found her at home this morning. She does live with other family members. She denies any other injuries. Physical Examination: HEENT exam atraumatic. Pupils round reactive light. Neck nontender. C-spine nontender. Lungs clear to auscultation bilaterally. Heart regular rhythm no murmur. Abdomen soft and nontender. Normal bowel sounds no peritoneal signs. Extremities patient has pain on palpation her left hip femur and primarily the knee. Knee is swollen and tender. Distally the left lower leg is mild swelling. The ankle and foot are nontender neurovascular intact. She has chronic swelling in both lower extremities more so on the left. Right lower extremity is nontender. Upper extremities are nontender normal range of motion and compressor mechanic strength. Back nontender. Neurologically she is awake alert with no focal motor deficits. Test Results: Patient's pelvis and left hip x-ray showed no acute abnormality. She does have a orthopedic nailing from a prior fracture. Femur and left knee x-rays show a periprosthetic fracture of the distal femur as it inserts in the prosthetic knee. The tibia is unremarkable. Chest x-ray shows chronic changes no acute process. CBC shows a white count of 10 hemoglobin 13. Electrolytes unremarkable creatinine 0.7. Emergency Department Course and Treatment: Patient has been given morphine and Zofran for pain. Treatment Plan: I spoke to both the hospitalist and the orthopedic surgeon on-call patient will be admitted for orthopedic surgical repair. Disposition: Admission Impression: Acute fall Left distal femur periprosthetic fracture at the prosthetic knee site. This note was generated with incuBET dictation software. It may contain incorrect words, spelling, and punctuation that were not noted in review of the chart prior to signing ED Disposition - Plan for ED Patient: Referrals: Albert Jarvis Chi, MD [Primary Care Provider] -
--- NOTE | 2018-09-21 07:04 | NURSING ---
MED SURG LT KNEE FX PAINTSIL
--- NOTE | 2018-09-21 07:06 | ED.DCSUM_ITS ---
- ER Visit Summary Date of Service: 09/21/18 Chief Complaint: Fall History of Present Illness: The patient is a 67 F history of diet-controlled diabetes, hypertension and anemia. Patient's had a prior hip fracture with a orthopedic surgery and a prior left knee replacement. She states she was walking in her room last night to get ready for bed. Her left leg gave out she fell landing awkwardly and injuring her left knee. She is complaining of pain on the left hip, femur and knee. She denies hitting her head. No LOC. She said before she fell she felt fine. Just at the leg gave out and she went down. States she laid on the floor 5 or 6 hours until someone found her at home this morning. She does live with other family members. She denies any other injuries. Physical Examination: HEENT exam atraumatic. Pupils round reactive light. Neck nontender. C-spine nontender. Lungs clear to auscultation bilaterally. Heart regular rhythm no murmur. Abdomen soft and nontender. Normal bowel sounds no peritoneal signs. Extremities patient has pain on palpation her left hip femur and primarily the knee. Knee is swollen and tender. Distally the left lower leg is mild swelling. The ankle and foot are nontender neurovascular intact. She has chronic swelling in both lower extremities more so on the left. Right lower extremity is nontender. Upper extremities are nontender normal range of motion and bicycle assembler strength. Back nontender. Neurologically she is awake alert with no focal motor deficits. Test Results: Patient's pelvis and left hip x-ray showed no acute abnormality. She does have a orthopedic nailing from a prior fracture. Femur and left knee x-rays show a periprosthetic fracture of the distal femur as it inserts in the prosthetic knee. The tibia is unremarkable. Chest x-ray shows chronic changes no acute process. CBC shows a white count of 10 hemoglobin 13. Electrolytes unremarkable creatinine 0.7. Emergency Department Course and Treatment: Patient has been given morphine and Zofran for pain. Treatment Plan: I spoke to both the hospitalist and the orthopedic surgeon on- call patient will be admitted for orthopedic surgical repair. Disposition: Admission Impression: Acute fall Left distal femur periprosthetic fracture at the prosthetic knee site. This note was generated with Authorly dictation software. It may contain incorrect words, spelling, and punctuation that were not noted in review of the chart prior to signing ED Disposition - Plan for ED Patient: Referrals: Albert Jarvis Chi, MD [Primary Care Provider] -
--- NOTE | 2018-09-21 07:08 | EKG12_ITS ---
Test Reason : PRE-OP Blood Pressure : / mmHG Vent. Rate : 074 BPM Atrial Rate : 074 BPM P-R Int : 140 ms QRS Dur : 078 ms QT Int : 398 ms P-R-T Axes : 038 002 018 degrees QTc Int : 441 ms Normal sinus rhythm Nonspecific ST abnormality Abnormal ECG Confirmed by EDWIN BLACK, QUINN ([id number]), features editor ALBERTO MANSFIELD ([id number]) on 09/22/2018 2:13:55 PM Referred By: GABRIELA Confirmed By:QUINN PINEDA MD
[2018-09-21] MEDS: Morphine 2 MG/ML Syringe 1 MG IV (08:40)
[2018-09-21 12:05] LABS: Bedside Glucose 133 mg/dL (70-110)
--- NOTE | 2018-09-21 12:54 | CASEMGMT ---
RN CM Assessment Presentation: Acute fracture of distal femur, s/p fall Intro role of CM and purpose of RN CM assessment to patient in room. Pt is awake, alert and able to participate in assessment. Pt states she was getting dressed for bed and fell. She lay from 11pm to this morning when niece found her. Demographics, PCP and Pharmacy verified. PCP: Dr. Jarvis Specialists: Wound Center 1x week Preferred Pharmacy: [facility] Insurance: [facility] Prescription Benefit: yes LNOK: sister, Brenda Mederos. Pt states sister is @ [facility] since dc'd from [facility] recently. Living Arrangements: Pt lives with her sister and her sister's adult son and daughter in one story home. Pt states she uses walker, but is able to do complete ADL independently. Pt does not shower due to wounds, but bathes at sink. Transportation: family assists with driving DME: walker, wheelchair. denies using oxygen or cpap HHC: [facility] - called to update patient is now @ [facility]. Call back information given. [phone] Patient DC goals: SNF/WVM. Pt states she will not be able to manage at home and would like referral faxed to [facility]. (pt did state she did not wish to return to [facility]) KEVIN referral: SNF referral. KEVIN Julian updated. DC PLAN: anticipate SNF on discharge. Kitty LEWISN RN ACM
[2018-09-21 13:14] LABS: Hemoglobin A1c 6.6 % (4.2-6.3)
[2018-09-21 13:17] LABS: AST(SGOT) 29 U/L (15-37); Alanine Aminotransfer ALT/SGPT 48 U/L (13-56); Albumin, Serum 2.8 g/dL (3.2-5.0); Alkaline Phosphatase 119 U/L (45-117); Bilirubin, Direct 0.18 mg/dL (0.00-0.30); Globulin 3.2 g/dL (2.2-4.2)
--- NOTE | 2018-09-21 14:07 | CASEMGMT ---
Addendum entered by Tequila Mendez 09/21/18 14:39: Pt was at [facility] from July 21-August 31 under her Medicare. Pt used approximately 41 of her 100 day benefit. ASHWIN Nice, TANK TRUCK ENGINE MECHANIC Original Note: Addendum entered by Tequila Mendez 09/21/18 14:22: SW spoke abigail/Genet at [facility], they would like to see how pt is doing after surgery before making a decision if they can take pt. Pt is down for surgery now, SW will follow up tomorrow. ASHWIN Nice, TANK TRUCK ENGINE MECHANIC Original Note: SW spoke abigail/NUZHAT, pt would like to go to [facility] at discharge. SW called [facility], message left inquiring how many days pt used there, as pt was discharged there from here on July 21. SW called [facility], message left and referral faxed. SW will continue to follow. ASHWIN Nice, TANK TRUCK ENGINE MECHANIC
--- NOTE | 2018-09-21 14:21 | NURSING ---
PT TO A[facility] VIA BED
--- NOTE | 2018-09-21 16:03 | PCM.CONS.GEN ---
Reason for Consult Date of Consultation: 09/21/18 Reason for Consultation: Left femur fracture. Requested by Dr. Worrell History of Present Illness: The patient is a 67 year old F who generally ambulates with a walker and lives in a nursing home facility presents today after a fall last evening. Patient states that she has a history of left hip fracture which was fixed by my partner with a short gamma nail and left total knee replacement which was done by another 1 of my partners. She states occasionally she has some instability of the knee. She was walking around her bed when her left knee gave out on her. She was unable to catch herself. She ended up laying on the ground from 11 PM until this morning when her niece found her. She denies any dizziness or chest pain. No shortness of breath. She denies any loss of consciousness during the fall. She denies any numbness and tingling. She does have a chronic history of small sacral ulcer stage III and a heel ulcer which is stage III both are controlled from an infection standpoint and managed by the wound center. She was admitted to the hospital. Pain is worse with motion better with immobilization. She was cleared for surgery this morning. Past Medical History Past Medical History (Chronic Problems): Chronic Problems (Last Updated 07/19/18 @ 08:25 by Ras Patterson MD) Sacral decubitus ulcer, stage III (Chronic) Decubitus ulcer of left heel, stage 2 (Chronic) Ulcer of right lower extremity with fat layer exposed (Chronic) Type 2 diabetes mellitus without complications (Chronic) PVD (peripheral vascular disease) (Chronic) Lower extremity edema (Chronic) Delayed wound healing (Chronic) Neuropathic pain (Chronic) Asthma (Chronic) Other secondary pulmonary hypertension (Chronic) Murmur, cardiac (Chronic) Medical History: Medical History (Last Updated 07/19/18 @ 08:25 by Ras Patterson MD) Other secondary pulmonary hypertension (Chronic) I27.29 Anemia D64.9 Depression F32.9 GERD (gastroesophageal reflux disease) K21.9 CHIDI (obstructive sleep apnea) G47.33 Type 2 diabetes mellitus E11.9 Hyperlipidemia E78.5 Hypertension I10 Nonrheumatic aortic (valve) stenosis I35.0 Nonrheumatic mitral (valve) stenosis I34.2 Diabetes (Inactive) E11.9 GERD (gastroesophageal reflux disease) (Inactive) K21.9 Hyperlipidemia (Inactive) E78.5 Mitral stenosis (Inactive) I05.0 Allergies lisinopril Adverse Reaction (Intermediate, Verified 09/21/18 05:46) Unknown penicillin G Adverse Reaction (Intermediate, Verified 09/21/18 05:46) Unknown exenatide [From Byetta] Adverse Reaction (Unknown, Verified 09/21/18 05:46) Unknown Home Medications: Ambulatory Orders Medication Instructions Recorded Aspirin [Aspirin, Baby] 81 mg PO DAILY@0800 03/24/15 Escitalopram Oxalate [Lexapro] 20 mg PO DAILY 03/24/15 Montelukast [Singulair] 10 mg PO DAILY 03/24/15 Multivitamins,Ther W-Minerals 1 tab PO DAILY 03/24/15 [Multivitamin With Minerals] Omeprazole [Prilosec] 40 mg PO DAILY 03/24/15 Pravastatin [Pravachol] 20 mg PO QHS 03/24/15 gabapentin 300 mg capsule 600 mg PO QHS cap 10/20/17 polysaccharide iron complex 150 mg 150 mg PO QDAY cap 10/20/17 iron capsule furosemide 20 mg tablet 20 mg PO QDAY #30 tab 11/11/17 Oxybutynin Chloride [Ditropan Xl] 15 mg PO DAILY 03/30/18 Acetaminophen [Tylenol Tablet] 650 mg PO Q6H PRN PRN tablet 07/21/18 Lactobacillus Acidophilus 1 tab PO DAILY #30 tab 07/21/18 [Acidophilus] Loperamide [Imodium] 2 mg PO Q4H PRN PRN #0 capsule 07/21/18 Pilocarpine HCl 5 mg PO TID #0 07/21/18 Famotidine 1 tab PO DAILY 09/21/18 traMADol [Ultram] 1 tab PO BID PRN 09/21/18 Surgical History: Surgical History (Last Updated 07/19/18 @ 08:25 by Ras Patterson MD) History of cholecystectomy Z98.890, Z90.49 History of total left knee replacement Z96.652 Surgical History: cholecystectomy, gastric bypass, total knee arthroplasty, - - Hernia repair, partial colectomy Left hip short gamma nail Psychiatric History: Anxiety, Depression 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 History: No pertinent NON MORSE INTERCEPT TECHNICIAN history Lives: With Family Smoking Status: Former smoker Tobacco Use: Non-smoker Alcohol: None Drugs: None - *Family History Maternal Family History: Family History (Last Reviewed 07/19/18 @ 06:56 by Britton Bryan MD) Sister CAD (coronary artery disease) Hx of CABG History Items: No pertinent history Paternal Family History: Family History (Last Reviewed 07/19/18 @ 06:56 by Britton Bryan MD) Sister CAD (coronary artery disease) Hx of CABG History Items: No pertinent history Sibling Family History: Family History (Last Reviewed 07/19/18 @ 06:56 by Britton Bryan MD) Sister CAD (coronary artery disease) Hx of CABG History Items: Heart Disease Review of Systems Constitutional: Denies: Chills, Fever, Weight Change HEENT: Denies: Head Aches, Sinus Congestion, Sinus Drainage Cardiovascular: Denies: Chest Pain, Palpitations Respiratory: Denies: Cough, Shortness of breath at rest, Sputum production Gastrointestinal: Denies: Abdominal Pain, Nausea, Vomiting Genitourinary: Denies: Dysuria Musculoskeletal: Reports: Joint Pain, Joint Tenderness Skin: Reports: Wounds - Sacral ulcer and heel ulceration Neurological: Denies: Numbness, Tingling, Focal weakness Psychiatric: Denies: Anxiety, Depression, Homicidal Ideations, Suicidal Ideations Hematologic/ Lymphatic: Denies: Easy Bruising, Easy Bleeding Objective: X-rays of the left hip and femur as well as pelvis were reviewed. Patient has a comminuted distal femur fracture at the metaphyseal diaphyseal junction part of it extending to the proximal flange of the femoral component. She has a cruciate retaining total knee replacement. Proximally she has a previously fixed intertrochanteric hip fracture with short gamma nail. - Physical Exam General: Alert, Oriented x3, Cooperative Extremities: - - Left lower extremity: Thigh is swollen. Knee is tender to palpate. Pain with knee range of motion. Sensations intact light touch saphenous, sural, superior peroneal, deep peroneal tibial nerve distributions. Heel and sacral ulcers were examined. Motor is intact dorsal flexion EHL and plantar flexion. Remainder of examination is limited by pain. Patient's compartments are soft. Skin: Ulcer/ Wound - Patient has a 1 cm x 1 cm sacral ulceration with no surrounding erythema. Does penetrate the dermis. Patient has a smaller than 1 cm heel ulceration mostly at rest skin with a small central area of skin penetration., - Vital Signs Temp Pulse Resp BP Pulse Ox 99.1 F 86 18 116/60 90 09/21/18 12:58 09/21/18 12:58 09/21/18 12:58 09/21/18 12:58 09/21/18 12:58 Oxygen Flow Rate (L/min) 2 Oxygen Delivery Method Room Air Weight: 195 lb 15.855 oz Body Mass Index (BMI) 33.6 Finger Stick Blood Glucose 148 Intake and Output for Last 24 Hours 09/19/18 09/20/18 09/21/18 23:59 23:59 23:59 Intake Total 315 / 315 Output Total 200 / 200 Balance 115 / 115 Laboratory Tests Past 24 Hrs 09/21/18 09/21/18 09/21/18 06:08 06:08 06:08 WBC 10.3 RBC 4.61 Hgb 13.5 Hct 44.2 MCV 95.9 MCH 29.3 MCHC 30.5 L RDW 14.2 RDW Differential 48.2 H Plt Count 179 MPV 11.3 Immature Gran % (Auto) 0.300 Neut % (Auto) 76.0 H Lymph % (Auto) 14.9 L Cameron % (Auto) 7.5 Eos % (Auto) 1.1 Baso % (Auto) 0.2 Absolute Neuts (auto) 7.8 H Absolute Lymphs (auto) 1.53 Total Counted Not Reportable Sodium 141 Potassium 3.7 Chloride 108 H Carbon Dioxide 34.0 H Anion Gap -1 L BUN 21 H Creatinine 0.75 Estim Creat Clear Calc 45.85 Est GFR (MDRD) Af Amer 98 Est GFR (MDRD) Non-Af 81 BUN/Creatinine Ratio 27.9 H Glucose 169 H Hemoglobin A1c Calcium 8.3 L Total Bilirubin Direct Bilirubin AST ALT Alkaline Phosphatase Total Creatine Kinase 68 Total Protein Albumin Globulin 09/21/18 09/21/18 06:08 06:08 WBC RBC Hgb Hct MCV MCH MCHC RDW RDW Differential Plt Count MPV Immature Gran % (Auto) Neut % (Auto) Lymph % (Auto) Cameron % (Auto) Eos % (Auto) Baso % (Auto) Absolute Neuts (auto) Absolute Lymphs (auto) Total Counted Sodium Potassium Chloride Carbon Dioxide Anion Gap BUN Creatinine Estim Creat Clear Calc Est GFR (MDRD) Af Amer Est GFR (MDRD) Non-Af BUN/Creatinine Ratio Glucose Hemoglobin A1c 6.6 H Calcium Total Bilirubin 0.50 Direct Bilirubin 0.18 AST 29 ALT 48 Alkaline Phosphatase 119 H Total Creatine Kinase Total Protein 6.0 L Albumin 2.8 L Globulin 3.2 POC Glucose 09/21/18 11:07 POC Glucose 133 H Assessment/Plan All Active Problems (Last Updated 07/19/18 @ 08:25 by Ras Patterson MD) Ulcer of back (Acute) Cellulitis of left lower extremity (Acute) Sepsis (Acute) Acute cystitis (Acute) Decubitus ulcer (Acute) Left periprosthetic distal femur fracture. Based on previous intertrochanteric hip fracture and septal medullary nail as well as current fracture pattern given options were discussed the patient including distal femoral replacement, open reduction internal fixation and retrograde femoral nail. Considering all these factors in patients overall activity level I recommended a open reduction internal fixation with anatomic distal femur plate. Risks and benefits were discussed the patient including but not limited to blood loss, DVTs, PE, neurovascular damage, general risk of anesthesia including loss of life. We also discussed nonunion, malunion and hardware failure. More specifically based on her ulcerations we discussed risk of infection is higher than general risk of infection with this type of procedure. Patient interested in understanding and does wish to proceed. Postoperative plan and course was described with the patient she does understand it could be up to 3 months or more with nonweightbearing. Patient is currently n.p.o. Antibiotics on-call to the operating room. We will proceed with surgery this evening. REG[facility] Office:
--- NOTE | 2018-09-21 16:30 | RAD_ITS ---
STUDY: X-RAY - LEFT FEMUR REASON FOR STUDY: Female, 67 years old. ORIF TECHNIQUE: 5 intraoperative view(s) of the femur. COMPARISON: None. FINDINGS: Status post ORIF of the femur for a distal femoral fracture. A total knee replacement is noted in place. Bony details are limited. RAD/Femur Min 2 Views IMPRESSION: ORIF of the femur for a distal femoral fracture. Electronically Signed: Uli Sargent DO at 18:12 EDT Tel [phone], Service support ,
--- NOTE | 2018-09-21 17:42 | RAD_ITS ---
STUDY: X-RAY - LEFT FEMUR REASON FOR STUDY: Female, 67 years old. Postop ORIF TECHNIQUE: 4 view(s) of the femur. COMPARISON: September 21, 2018@18:17 hours FINDINGS: Stable old ORIF of proximal left femur. Interval new ORIF of the distal left femur with adjacent postsurgical changes in the soft tissue. Skin salena are noted laterally. Old left total knee replacement. Vascular calcifications. RAD/Femur Min 2 Views IMPRESSION: Status post ORIF of the femur. Electronically Signed: Uli Sargent DO at 19:22 EDT Tel [phone], Service support ,
--- NOTE | 2018-09-21 17:49 | PCM.OPRPT ---
Report of Operation Date of Procedure: 09/21/18 Pre-Operative Diagnosis: Periprosthetic distal femur fracture Post-Operative Diagnosis: Periprosthetic distal femur fracture Surgery/Procedure Performed:: Open reduction internal fixation left periprosthetic distal femur fracture Description of Surgical Findings:: Stable reduction automatic profile sander operator: Devin Sargent Type of Anesthesia:: General Anesthesiologist: Ricardo Klein Special Medications: 600 mg clindamycin Estimated Blood Loss (mL): 400 Fluids Replaced: 1600 L crystalloid Description of Procedure: On the date of the procedure patient's left leg was marked in the preoperative area. Patient was taken back to the operating room where there transferred to the table in the supine position after anesthesia had administered anesthetic. All bony prominences were identified and well-padded. A [place] catheter was placed. Bump was placed underneath the left hip. Appropriate blankets were placed underneath the left leg in order to elevated for appropriate x-rays. Patient was securely fastened to the bed. Anesthesia assumed control of the C-spine airway and remained to control throughout the remainder of the procedure. Left lower extremity was then prepped in a sterile fashion while the surgeon scrubbed. Upon reentering the room the left lower extremity was draped in a standard orthopedic fashion. Incision was marked out. Timeout was called. When agreed upon the side, the site, the procedure be performed, patient's identity and by skin. Incision was taken through skin subcutaneous tissue fat down the fascia. Hemostasis was obtained using Bovie cautery. Fascia was incised in line with the incision and the femur. We then were able to dissect down to the fracture and distal femur. The wound was copiously irrigated out with normal saline at the fracture site. Traction and reduction maneuvers were performed in order to adequately reduce the fracture. Traction was held. Live x-ray was used to verify fracture reduction. At this time once were happy with our fracture reduction the 12 hole plate was selected based on fluoroscopy proximally distally. Johnson was slid up the lateral side of the femur. There was a screw from the proximal short gamma nail which was on the lateral cortex. We elected to remove the screw. The 12 hole plate gave us a 3 hole overlap. Once were happy with our provisional reduction and placement of the plate laterally we then used whirlybirds approximately distally in order to provisionally fix the plate to the bone. In addition to this we used an additional cortical screw proximally to bring the plate down to the bone. This gave us an adequate reduction of the fracture in both coronal and sagittal planes. Once this was done locking screws were placed distally all screw holes were filled a total of 6 were placed. Once this was done we again directed our attention proximally where 2 more locking screws were placed in the shaft and 2 unicortical screws were placed in the shaft where the plate overlapped the proximal nail. Once the plate was adequately fixed down the wound was colleen irrigated out normal saline. We used live x-ray to verify fracture reduction. Once we felt her fracture was adequately reduced and well fixed on final x-ray the wound was finally copiously read out normal saline. Wounds were closed fascia was closed with #1 Vicryl skin was closed with 2-0 Vicryl and final closure was done with skin salena. Sterile dressings were placed. Compressive dressing was placed. Patient was awakened by anesthesia and transferred to the PACU for recovery. Postoperative plan: Patient is currently on Lovenox. Recommend discharge with a total of 3 weeks Lovenox anticoagulation. Patient will be nonweightbearing for a total of 6 weeks. Knee immobilizer with no range of motion of the knee for the first 2 weeks. I do weeks postop patient will return to the office for removal of salena and to begin range of motion 0-90 passive range of motion only. Grafts/Implants Used: Synthes 12 hole variable angle locking distal femur plate - Complications none - Admit VTE Documentation VTE Present on Admission: No VTE Mechan Device Prophylaxis: SCD's, Thigh High HAMILTON Hose VTE Pharm Prophylaxis ordered?: Yes
--- NOTE | 2018-09-21 17:56 | OP.PCM_ITS ---
Report of Operation Date of Procedure: 09/21/18 Pre-Operative Diagnosis: Periprosthetic distal femur fracture Post-Operative Diagnosis: Periprosthetic distal femur fracture Surgery/Procedure Performed:: Open reduction internal fixation left periprosthetic distal femur fracture Description of Surgical Findings:: Stable reduction manager payer: Devin Sargent Type of Anesthesia:: General Anesthesiologist: Ricardo Klein Special Medications: 600 mg clindamycin Estimated Blood Loss (mL): 400 Fluids Replaced: 1600 L crystalloid Description of Procedure: On the date of the procedure patient's left leg was marked in the preoperative area. Patient was taken back to the operating room where there transferred to the table in the supine position after anesthesia had administered anesthetic. All bony prominences were identified and well-padded. A [place] catheter was pl aced. Bump was placed underneath the left hip. Appropriate blankets were placed underneath the left leg in order to elevated for appropriate x-rays. Patient was securely fastened to the bed. Anesthesia assumed control of the C- spine airway and remained to control throughout the remainder of the procedure. Left lower extremity was then prepped in a sterile fashion while the surgeon scrubbed. Upon reentering the room the left lower extremity was draped in a standard orthopedic fashion. Incision was marked out. Timeout was called. When agreed upon the side, the site, the procedure be performed, patient's identity and by skin. Incision was taken through skin subcutaneous tissue fat down the fascia. Hemostasis was obtained using Bovie cautery. Fascia was incised in line with the incision and the femur. We then were able to dissect down to the fracture and distal femur. The wound was copiously irrigated out with normal saline at the fracture site. Traction and reduction maneuvers were performed in order to adequately reduce the fracture. Traction was held. Live x-ray was used to verify fracture reduction. At this time once were happy with our fracture reduction the 12 hole plate was selected based on fluoroscopy proximally distally. Johnson was slid up the lateral side of the femur. There was a screw from the proximal short gamma nail which was on the lateral cortex. We elected to remove the screw. The 12 hole plate gave us a 3 hole overlap. Once were happy with our provisional reduction and placement of the plate laterally we then used whirlybirds approximately distally in order to provisionally fix the plate to the bone. In addition to this we used an additional cortical screw proximally to bring the plate down to the bone. This gave us an adequate red uction of the fracture in both coronal and sagittal planes. Once this was done locking screws were placed distally all screw holes were filled a total of 6 were placed. Once this was done we again directed our attention proximally where 2 more locking screws were placed in the shaft and 2 unicortical screws were placed in the shaft where the plate overlapped the proximal nail. Once the plate was adequately fixed down the wound was colleen irrigated out normal saline. We used live x-ray to verify fracture reduction. Once we felt her fracture was adequately reduced and well fixed on final x-ray the wound was finally copiously read out normal saline. Wounds were closed fascia was closed with #1 Vicryl skin was closed with 2-0 Vicryl and final closure was done with skin salena. Sterile dressings were placed. Compressive dressing was placed. Patient was awakened by anesthesia and transferred to the PACU for recovery. Postoperative plan: Patient is currently on Lovenox. Recommend discharge with a total of 3 weeks Lovenox anticoagulation. Patient will be nonweightbearing for a total of 6 weeks. Knee immobilizer with no range of motion of the knee for the first 2 weeks. I do weeks postop patient will return to the office for removal of salena and to begin range of motion 0-90 passive range of motion only. Grafts/Implants Used: Synthes 12 hole variable angle locking distal femur plate - Complications none - Admit VTE Documentation VTE Present on Admission: No VTE Mechan Device Prophylaxis: SCD's, Thigh High H[place] Hose VTE Pharm Prophylaxis ordered?: Yes
[2018-09-21] MEDS: Scopolamine 1mg/72hr Patch 1 PATCH TD (18:39)
[2018-09-21 19:11] LABS: Bedside Glucose 245 mg/dL (70-110)
[2018-09-21] MEDS: Pravastatin 20 MG Tablet PO (21:46)
[2018-09-21] MEDS: Gabapentin 600 MG Tablet PO (21:46)
[2018-09-21] MEDS: Senna/Docusate Sodium 1 Tablet 2 TABLET PO (21:48)
[2018-09-21] MEDS: Insulin Lispro 100 UNIT/ML INSULN.PEN SQ (21:49)
[2018-09-21 22:30] LABS: Bedside Glucose 253 mg/dL (70-110)
[2018-09-22 06:15] LABS: Bedside Glucose 241 mg/dL (70-110)
[2018-09-22] MEDS: Insulin Lispro 100 UNIT/ML INSULN.PEN SQ ×4 (06:27→21:22)
[2018-09-22 06:39] LABS: Absolute Lymphocyte Count 0.97 X10^3/ul (0.83-4.51); Absolute Neutrophil Count 6.5 X10^3/uL (2.0-7.7); Hematocrit 35.8 % (37-47); Lymphocyte # 0.97 X10^3/ul (4.0); Lymphocyte % 11.7 % (19-41); Mean Corp Hgb Conc 30.7 g/gl (32-36); Mean Corpuscular Hgb 29.3 pg (27.0-32.0); Mean Corpuscular Volume 95.5 fL (81-99); Mean Platelet Vol. 13.1 fl (6.2-12.0); Monocyte# 0.81 X10^3/uL; Monocyte% 9.8 % (0-10); Neutrophil # 6.49 X10^3/uL (2.7-7.7); Neutrophil % 78.3 % (47-70); Platelet Count 72 K/mm3 (150-450); RBC Distribution Width CV 14.6 % (11.6-14.6); RBC Distribution Width SD 50.9 fl (35.1-43.9); Red Blood Count 3.75 M/mm3 (4.2-5.4); White Blood Count 8.3 K/mm3 (4.4-11.0)
[2018-09-22 06:40] LABS: POSITIVE COUNT NO; POSITIVE DIFFERENTIAL NO; POSITIVE MORPHOLOGY NO
[2018-09-22 06:54] LABS: Anion Gap 8 (5-15); BUN 20 mg/dL (7-18); BUN/Creat Ratio 24.3 RATIO (10-20); Calcium,Total 7.8 mg/dL (8.5-10.1); Chloride 106 mmol/L (98-107); Creatinine, Serum 0.82 mg/dL (0.55-1.02); EST Glomerular Filtration Rate 73 mL/min (>60); Est Glom Filt Rate - Afr Amer 88 mL/min (>60); Estimated Creatinine Clearance 55.91 ml/min; Glucose 290 mg/dL (74-106); Potassium 5.4 mmol/L (3.5-5.1); Sodium Level 144 mmol/L (136-145)
--- NOTE | 2018-09-22 07:41 | PCM.PN.HOSP ---
Subjective: Patient was seen and examined. Her pain is fairly controlled. Denied any chest pain or dizziness. No acute events overnight. Objective: Physical Exam General: Alert, Oriented x3, Cooperative, No apparent distress, - - obese HEENT: Atraumatic, PERRLA, EOMI, Normocephalic Oral: Moist Mucosa Neck: Supple, No JVD, Negative Carotid Bruits Lungs: Clear to auscultation, Normal air movement Cardiovascular: Regular rate, Regular Rhythm, Normal S1, Normal S2, Murmur - 3/6 holosystolic murmur Abdomen: Bowel Sounds Present, Soft, Non Tender, Non-Distended, Obese, - - Midline scar Extremities: Edema - bipedal +2, both lower legs, dressing over the left lateral knee and thigh is intact, clean and dry, immobile immobilizer to the left knee Skin: No rashes Musculoskeletal: Tenderness - and deformity of left knee Lymphatic: No Cervical, Supraclavicular, or Inguinal Adenopathy Neurological: Cranial nerves II-XII grossly intact Psych/Mental Status: Normal Affect, Appropriate Vitals/I&O's: Vital Signs Temp Pulse Resp BP Pulse Ox 98.6 F 59 L 16 126/68 H 98 09/21/18 23:39 09/21/18 23:39 09/21/18 23:39 09/21/18 23:39 09/21/18 23:39 Oxygen Flow Rate (L/min) 2 Oxygen Delivery Method Nasal Cannula Weight: 88.9 kg Body Mass Index (BMI) 33.6 Finger Stick Blood Glucose 148 Intake and Output for Last 24 Hours 09/20/18 09/21/18 09/22/18 23:59 23:59 23:59 Intake Total 2095 / 2095 Output Total 580 / 580 175 / 175 Balance 1515 / 1515 -175 / -175 Laboratory Results 09/21/18 06:08: Total Bilirubin 0.50, Direct Bilirubin 0.18, AST 29, ALT 48, Alkaline Phosphatase 119 H, Total Protein 6.0 L, Albumin 2.8 L, Globulin 3.2 09/21/18 06:08: Hemoglobin A1c 6.6 H 09/21/18 11:07: POC Glucose 133 H 09/21/18 19:07: POC Glucose 245 H 09/21/18 21:39: POC Glucose 253 H 09/22/18 06:04: POC Glucose 241 H 09/22/18 06:25: WBC 8.3, RBC 3.75 L, Hgb 11.0 L, Hct 35.8 L, MCV 95.5, MCH 29.3, MCHC 30.7 L, RDW 14.6, RDW Differential 50.9 H, Plt Count 72 L, MPV 13.1 H, Immature Gran % (Auto) 0.200, Neut % (Auto) 78.3 H, Lymph % (Auto) 11.7 L, [place] % (Auto) 9.8, Eos % (Auto) 0.0, Baso % (Auto) 0.0, Absolute Neuts (auto) 6.5, Absolute Lymphs (auto) 0.97, Total Counted Not Reportable 09/22/18 06:25: Sodium 144, Potassium 5.4 H, Chloride 106, Carbon Dioxide 30.0, Anion Gap 8, BUN 20 H, Creatinine 0.82, Estim Creat Clear Calc 55.91, Est GFR (MDRD) Af Amer 88, Est GFR (MDRD) Non-Af 73, BUN/Creatinine Ratio 24.3 H, Glucose 290 H, Calcium 7.8 L Current Medications Acetaminophen (Tylenol) 650 mg PO Q6H PRN PRN PRN Reason: Mild Pain (1-3)/Temp > 100.7 F Aspirin (Aspirin, Baby) 81 mg PO DAILY@0800 [facility] Last Admin: 09/21/18 10:05 Dose: Not Given Bisacodyl (Dulcolax) 5 mg PO DAILY PRN PRN PRN Reason: Constipation Dextrose (D50w Syringe) 0 gm IV X1 PRN; Protocol PRN Reason: Hypoglycemia Enoxaparin Sodium (Lovenox) 40 mg SC DAILY@1000 [facility] Last Admin: 09/21/18 10:06 Dose: Not Given Escitalopram Oxalate (Lexapro) 20 mg PO DAILY [facility] Last Admin: 09/21/18 10:06 Dose: Not Given Famotidine (Pepcid) 20 mg PO DAILY [facility] Last Admin: 09/21/18 10:06 Dose: Not Given Furosemide (Lasix) 20 mg PO DAILY [facility] Last Admin: 09/21/18 10:06 Dose: Not Given Gabapentin (Neurontin) 600 mg PO QHS [facility] Last Admin: 09/21/18 21:46 Dose: 600 mg Glucagon () 1 mg IM .X1 PRN PRN Reason: Hypoglycemia Clindamycin Phosphate 600 mg/ (Dextrose) 54 mls @ 162 mls/hr IV Q6H [facility] Stop: 09/22/18 10:19 Last Admin: 09/22/18 04:34 Dose: 162 mls/hr Insulin Human Lispro (Humalog Kwikpen (Bkc)) 0 unit SQ ACHS [facility]; Protocol Last Admin: 09/22/18 06:27 Dose: 2 u Lactobacillus Acidophilus (Acidophilus) 1 tablet PO DAILY [facility] Last Admin: 09/21/18 10:06 Dose: Not Given Loperamide HCl (Imodium) 2 mg PO Q4H PRN PRN PRN Reason: DIARRHEA/LOOSE STOOLS Magnesium Hydroxide (Milk Of Magnesia) 30 ml PO DAILY PRN PRN PRN Reason: Constipation Montelukast Sodium (Singulair) 10 mg PO DAILY [facility] Last Admin: 09/21/18 10:06 Dose: Not Given Morphine Sulfate () 1 mg IV Q4H PRN PRN PRN Reason: MOD-SEVERE PAIN (4-10/10) Last Admin: 09/21/18 08:40 Dose: 1 mg Multivitamins/Minerals (Multivitamin With Minerals) 1 tablet PO DAILY@1200 [facility] Last Admin: 09/21/18 12:14 Dose: Not Given Non-Formulary Medication (Pilocarpine Hcl) 5 mg PO TID [facility] Nutritional Formula (Lactose Free) (Glucerna Shake) 120 ml PO TIDCM [facility] Oxycodone HCl (Oxyir) 5 mg PO Q4H PRN PRN PRN Reason: MOD-SEVERE PAIN (4-10/10) Pantoprazole Sodium (Protonix) 40 mg PO DAILY [facility] Last Admin: 09/21/18 10:06 Dose: Not Given Pravastatin Sodium (Pravachol) 20 mg PO QHS [facility] Last Admin: 09/21/18 21:46 Dose: 20 mg Promethazine HCl (Phenergan) 12.5 mg IM Q6H PRN PRN; Protocol PRN Reason: NAUSEA/VOMITING Psyllium Hydrophilic Mucilloid (Metamucil) 1 packet PO DAILY PRN PRN PRN Reason: CONSTIPATION Senna/Docusate Sodium (Senokot-S, Gricel-Colace) 2 tablet PO BID [facility] Last Admin: 09/21/18 21:48 Dose: 2 tablet Sodium Chloride () 5 - 15 ml IV UD PRN PRN Reason: SALINE FLUSH Tolterodine Tartrate (Detrol La) 4 mg PO DAILY [facility] Last Admin: 09/21/18 10:06 Dose: Not Given Medical Necessity - Tobacco Use Smoking Status: Former smoker Tobacco Use: Non-smoker Assessment/Plan All Active Problems (Last Updated 07/19/18 @ 08:25 by Ras Patterson MD) Ulcer of back (Acute) Cellulitis of left lower extremity (Acute) Sepsis (Acute) Acute cystitis (Acute) Decubitus ulcer (Acute) 67 year old F with past medical history of chronic sacral and right foot ulcers followed in up in the wound center, hypertension, type II DM, diet controlled, obesity, history of gastric bypass who comes in after a fall and sustained left knee pain. 1. POD #1, status post open reduction, internal fixation of left periprosthetic distal femoral fracture Pain is fairly controlled, wound is dry and intact, surgical recommendations by orthopedic team 2. Hypertension, controlled, not on medications, will continue to monitor 3. Type II DM, diet controlled, last HgbA1c in Jul 2018 was 4.4, Blood sugars are uncontrolled, will continue on Accu-Cheks with insulin sliding scale Recheck HbA1c. 4. Lower extremity edema, reported history of CHF, on Lasix, will hold oral Lasix and start patient on IV Lasix to assist with the leg edema to aid with wound healing, wraps to lower extremity, elevate lower extremity 5. Hyperlipidemia, on statin 6. Chronic sacral decubitus ulcer as well as right foot ulcer, history of underlining chronic edema being followed up in the outpatient, on Lasix in the outpatient, will consult wound nurse and continue on Lasix 7. Anxiety/depression, on Lexapro 8. History of gastric bypass, multiple abdominal surgeries, history of diarrhea on and off, on as needed Imodium 9. DVT PPx- Lovenox 10. Disposition - DC to [facility] facility when okay with orthopedics and bed is available Code Visit Inpatient E&M: 38197 Subs Hosp L2
[2018-09-22 07:58] VITALS: BP 101/47; PULSE 59; RESP 18; TEMP 36.5; O2SAT 99
[2018-09-22] MEDS: Tolterodine Tartrate 4 MG CAP.SA PO (08:21)
[2018-09-22] MEDS: Aspirin 81 MG TAB.CHEW PO (08:21)
[2018-09-22] MEDS: Escitalopram Oxalate 20 MG Tablet PO (08:22)
[2018-09-22] MEDS: Furosemide 20 MG Tablet PO (08:22)
[2018-09-22] MEDS: Enoxaparin 40 MG/0.4 ML Syringe SC (08:22)
[2018-09-22] MEDS: Montelukast 10 MG Tablet PO (08:23)
[2018-09-22] MEDS: Pantoprazole Sodium 40 MG Tablet PO (08:23)
[2018-09-22] MEDS: Glucerna Shake 120 ML LIQUID PO ×3 (08:23→18:41)
[2018-09-22] MEDS: Famotidine 20 MG Tablet PO (08:23)
[2018-09-22] MEDS: Senna/Docusate Sodium 1 Tablet 2 TABLET PO (08:25)
[2018-09-22 08:43] LABS: BUN 18 mg/dL (7-18); Creatinine, Serum 0.76 mg/dL (0.55-1.02); EST Glomerular Filtration Rate 81 mL/min (>60); Estimated Creatinine Clearance 45.85 ml/min; Glucose 286 mg/dL (74-106)
[2018-09-22 08:44] LABS: Anion Gap 3 (5-15); BUN/Creat Ratio 23.8 RATIO (10-20); Calcium,Total 7.8 mg/dL (8.5-10.1); Chloride 107 mmol/L (98-107); Est Glom Filt Rate - Afr Amer 97 mL/min (>60); Potassium 4.7 mmol/L (3.5-5.1); Sodium Level 140 mmol/L (136-145)
[2018-09-22] MEDS: Loperamide 2 MG Capsule PO (09:46)
--- NOTE | 2018-09-22 10:09 | CASEMGMT ---
Addendum entered by Ann Marshall 09/22/18 13:32: SW faxed PT/OT to [facility] Original Note: Addendum entered by Ann Marshall 09/22/18 11:33: SW faxed updated clinicals to Genet at [facility]. SW to fax updated PT/OT once available. Original Note: Social Work Note SW placed a call to Genet at [facility] and left her a message informing her that this worker will fax PT/OT once available. 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
[2018-09-22 11:00] VITALS: O2SAT 98
[2018-09-22 11:56] LABS: Bedside Glucose 333 mg/dL (70-110)
[2018-09-22] MEDS: Multivitamins,Ther W-Minerals Tablet 1 TABLET PO (12:01)
[2018-09-22] MEDS: oxyCODONE 5 MG Tablet PO ×2 (12:29→17:47)
[2018-09-22 14:00] VITALS: BP 103/53; PULSE 76; RESP 18; TEMP 36.7; O2SAT 93
[2018-09-22 14:48] LABS: Hemoglobin A1c 6.6 % (4.2-6.3)
--- NOTE | 2018-09-22 15:06 | CASEMGMT ---
Addendum entered by Ann Marshall 09/22/18 16:17: SW updated pt on acceptance to [facility] . Pt states understanding. Original Note: Social Work Note SW received message from Genet at [facility] stating she is able to accept pt and asked to confirm pt has used 41 skilled days under Medicare. KEVIN reviewed previous notes and Tequila CHRISTOPHER did confirm with [facility] that pt used 41 skilled days under Medicare. SW update Genet at [facility] of this. Plan: [facility] Ann Marshall STATISTICIAN THEORETICAL, SUPERVISOR FRONT
[2018-09-22] MEDS: Furosemide 20 MG/2 ML VIAL IV (15:25)
[2018-09-22] MEDS: 0.9% NaCl Peripheral Flush Adult/Peds IV (15:26)
[2018-09-22 16:30] LABS: Bedside Glucose 363 mg/dL (70-110)
--- NOTE | 2018-09-22 16:58 | PCM.PN.ORT ---
Subjective: Patient is doing well. Pain is controlled. No chest pain or shortness of breath. She was able to do transfers with physical therapy. She does have a foot drop on the contralateral side and has been fitted for a brace from [employer]. No calf pain. Objective: Postoperative films show well reduced distal comminuted distal radius fracture periprosthetic femur fracture. - Physical Exam General: Alert, Oriented x3, Cooperative Extremities: - - Lower extremity: Dressing is clean dry and intact Sensations intact to light touch saphenous, sural, superficial peroneal, deep peroneal, and tibial distributions Motors intact EHL, DF, PF calves are soft and supple Vital Signs Temp Pulse Resp BP Pulse Ox 98.1 F 76 18 103/53 L 93 09/22/18 14:00 09/22/18 14:00 09/22/18 14:00 09/22/18 14:00 09/22/18 14:00 Oxygen Flow Rate (L/min) 2 Oxygen Delivery Method Room Air Weight: 198 lb 3.129 oz Body Mass Index (BMI) 33.6 Finger Stick Blood Glucose 148 Intake and Output for Last 24 Hours 09/20/18 09/21/18 09/22/18 23:59 23:59 23:59 Intake Total 2095 / 2095 590 / 590 Output Total 580 / 580 275 / 275 Balance 1515 / 1515 315 / 315 Laboratory Tests Past 24 Hrs 09/22/18 09/22/18 09/22/18 06:25 06:25 06:25 WBC 8.3 RBC 3.75 L Hgb 11.0 L Hct 35.8 L MCV 95.5 MCH 29.3 MCHC 30.7 L RDW 14.6 RDW Differential 50.9 H Plt Count 72 L MPV 13.1 H Immature Gran % (Auto) 0.200 Neut % (Auto) 78.3 H Lymph % (Auto) 11.7 L [place] % (Auto) 9.8 Eos % (Auto) 0.0 Baso % (Auto) 0.0 Absolute Neuts (auto) 6.5 Absolute Lymphs (auto) 0.97 Total Counted Not Reportable Sodium 144 Potassium 5.4 H Chloride 106 Carbon Dioxide 30.0 Anion Gap 8 BUN 20 H Creatinine 0.82 Estim Creat Clear Calc 55.91 Est GFR (MDRD) Af Amer 88 Est GFR (MDRD) Non-Af 73 BUN/Creatinine Ratio 24.3 H Glucose 290 H Hemoglobin A1c 6.6 H Calcium 7.8 L 09/22/18 08:08 WBC RBC Hgb Hct MCV MCH MCHC RDW RDW Differential Plt Count MPV Immature Gran % (Auto) Neut % (Auto) Lymph % (Auto) [place] % (Auto) Eos % (Auto) Baso % (Auto) Absolute Neuts (auto) Absolute Lymphs (auto) Total Counted Sodium 140 Potassium 4.7 Chloride 107 Carbon Dioxide 30.0 Anion Gap 3 L BUN 18 Creatinine 0.76 Estim Creat Clear Calc 45.85 Est GFR (MDRD) Af Amer 97 Est GFR (MDRD) Non-Af 81 BUN/Creatinine Ratio 23.8 H Glucose 286 H Hemoglobin A1c Calcium 7.8 L POC Glucose 09/22/18 09/22/18 09/22/18 16:28 11:52 06:04 POC Glucose 363 H 333 H 241 H 09/21/18 09/21/18 21:39 19:07 POC Glucose 253 H 245 H Medical Necessity - Tobacco Use Smoking Status: Former smoker Tobacco Use: Non-smoker Assessment/Plan All Active Problems (Last Updated 07/19/18 @ 08:25 by Ras Patterson MD) Ulcer of back (Acute) Cellulitis of left lower extremity (Acute) Sepsis (Acute) Acute cystitis (Acute) Decubitus ulcer (Acute) Postop day 1 open reduction internal fixation left periprosthetic distal femur fracture. 1. Pain control: Continue with current regimen pain currently controlled 2. DVT prophylaxis: Currently on Lovenox recommend discharge on Lovenox or Xarelto for 2 weeks followed by 2 weeks of aspirin 81 mg twice daily. 3. Physical therapy: Nonweightbearing, no range of motion. Patient is a knee immobilizer. She will do physical therapy for ADLs and transfers. 4. Chronic ulcerations left heel, sacrum: Continue with wound management we will follow-up with wound center. Patient chronically managed by wound center. 5. Disposition: Follow-up in the office in 2 weeks for x-ray check and wound check. Nonweightbearing for a total of 6 weeks. Lots of ice and elevation. Maintain knee immobilizer. [facility] Office:
[2018-09-22 20:12] VITALS: BP 156/89; PULSE 87; RESP 18; TEMP 37.7; O2SAT 94
[2018-09-22] MEDS: Gabapentin 600 MG Tablet PO (21:22)
[2018-09-22] MEDS: Pravastatin 20 MG Tablet PO (21:22)
[2018-09-22 21:31] LABS: Bedside Glucose 346 mg/dL (70-110)
[2018-09-23] VITALS (7 sets, daily range): BP systolic 92–108; BP diastolic 47–59; PULSE 72–93; RESP 16–18; TEMP 36.8–38.7; O2SAT 94–98
[2018-09-23] MEDS: Acetaminophen 325 MG Tablet 650 MG PO (01:58)
[2018-09-23 06:00] LABS: Hematocrit 30.5 % (37-47); Hemoglobin 9.2 g/dl (12.0-15.0); Mean Corp Hgb Conc 30.2 g/gl (32-36); Mean Corpuscular Volume 96.2 fL (81-99); Mean Platelet Vol. 11.4 fl (6.2-12.0); Platelet Count 137 K/mm3 (150-450); RBC Distribution Width CV 14.6 % (11.6-14.6); RBC Distribution Width SD 50.7 fl (35.1-43.9); Red Blood Count 3.17 M/mm3 (4.2-5.4); White Blood Count 12.9 K/mm3 (4.4-11.0)
[2018-09-23 06:18] LABS: Scan Indicated on CBC? Y/N NO
[2018-09-23] MEDS: Insulin Lispro 100 UNIT/ML INSULN.PEN SQ ×4 (06:31→21:09)
[2018-09-23 06:44] LABS: Anion Gap 4 (5-15); BUN 23 mg/dL (7-18); BUN/Creat Ratio 26.3 RATIO (10-20); Calcium,Total 7.7 mg/dL (8.5-10.1); Chloride 105 mmol/L (98-107); Creatinine, Serum 0.87 mg/dL (0.55-1.02); EST Glomerular Filtration Rate 68 mL/min (>60); Est Glom Filt Rate - Afr Amer 82 mL/min (>60); Glucose 307 mg/dL (74-106); Potassium 4.3 mmol/L (3.5-5.1); Sodium Level 140 mmol/L (136-145)
[2018-09-23 06:45] LABS: Bedside Glucose 275 mg/dL (70-110)
[2018-09-23] MEDS: Aspirin 81 MG TAB.CHEW PO (08:51)
[2018-09-23] MEDS: Glucerna Shake 120 ML LIQUID PO ×3 (08:52→17:36)
--- NOTE | 2018-09-23 11:00 | PN_ITS ---
Subjective: Patient was seen and examined. Denied any new complaints. Waiting on insurance precertification for discharge to the [facility] facility Had a low grade temperature. Objective: Physical Exam General: Alert, Oriented x3, Cooperative, No apparent distress, - - obese HEENT: Atraumatic, PERRLA, EOMI, Normocephalic Oral: Moist Mucosa Neck: Supple, No JVD, Negative Carotid Bruits Lungs: Clear to auscultation, Normal air movement Cardiovascular: Regular rate, Regular Rhythm, Normal S1, Normal S2, Murmur - 3/6 holosystolic murmur Abdomen: Bowel Sounds Present, Soft, Non Tender, Non-Distended, Obese, - - Midline scar Extremities: Edema - bipedal +2, both lower legs, dressing over the left lateral knee and thigh is intact, clean and dry, immobile immobilizer to the left knee Skin: No rashes Musculoskeletal: Tenderness - and deformity of left knee Lymphatic: No Cervical, Supraclavicular, or Inguinal Adenopathy Neurological: Cranial nerves II-XII grossly intact Psych/Mental Status: Normal Affect, Appropriate Vitals/I&O's: Vital Signs Temp Pulse Resp BP Pulse Ox 98.2 F 72 18 92/54 L 97 09/23/18 08:48 09/23/18 08:48 09/23/18 08:48 09/23/18 08:48 09/23/18 08:48 Oxygen Flow Rate (L/min) 3 Oxygen Delivery Method Room Air Weight: 91.4 kg Body Mass Index (BMI) 33.6 Finger Stick Blood Glucose 148 Intake and Output for Last 24 Hours 09/21/18 09/22/18 09/23/18 23:59 23:59 23:59 Intake Total 2095 / 2095 1060 / 1060 Output Total 580 / 580 1025 / 1025 500 / 500 Balance 1515 / 1515 35 / 35 -500 / -500 Laboratory Results 09/22/18 06:25: Hemoglobin A1c 6.6 H 09/22/18 11:52: POC Glucose 333 H 09/22/18 16:28: POC Glucose 363 H 09/22/18 21:24: POC Glucose 346 H 09/23/18 05:35: WBC 12.9 H, RBC 3.17 L, Hgb 9.2 L, Hct 30.5 L, MCV 96.2, MCH 29.0, MCHC 30.2 L, RDW 14.6, RDW Differential 50.7 H, Plt Count 137 L, MPV 11.4 09/23/18 05:35: Sodium 140, Potassium 4.3, Chloride 105, Carbon Dioxide 31.0, Anion Gap 4 L, BUN 23 H, Creatinine 0.87, Estim Creat Clear Calc 52.70, Est GFR (MDRD) Af Amer 82, Est GFR (MDRD) Non-Af 68, BUN/Creatinine Ratio 26.3 H, Glucose 307 H, Calcium 7.7 L 09/23/18 06:30: POC Glucose 275 H Current Medications Acetaminophen (Tylenol) 650 mg PO Q6H PRN PRN PRN Reason: Mild Pain (1-3)/Temp > 100.7 F Last Admin: 09/23/18 01:58 Dose: 650 mg Aspirin (Aspirin, Baby) 81 mg PO DAILY@0800 [facility] Last Admin: 09/23/18 08:51 Dose: 81 mg Bisacodyl (Dulcolax) 5 mg PO DAILY PRN PRN PRN Reason: Constipation Dextrose (D50w Syringe) 0 gm IV X1 PRN; Protocol PRN Reason: Hypoglycemia Enoxaparin Sodium (Lovenox) 40 mg SC DAILY@1000 [facility] Last Admin: 09/22/18 08:22 Dose: 40 mg Escitalopram Oxalate (Lexapro) 20 mg PO DAILY [facility] Last Admin: 09/22/18 08:22 Dose: 20 mg Famotidine (Pepcid) 20 mg PO DAILY [facility] Last Admin: 09/22/18 08:23 Dose: 20 mg Furosemide (Lasix) 20 mg IV DAILY [facility] Gabapentin (Neurontin) 600 mg PO QHS [facility] Last Admin: 09/22/18 21:22 Dose: 600 mg Glucagon () 1 mg IM .X1 PRN PRN Reason: Hypoglycemia Insulin Human Lispro (Humalog Kwikpen (Bkc)) 0 unit SQ ACHS [facility]; Protocol Last Admin: 09/23/18 06:31 Dose: 4 u Lactobacillus Acidophilus (Acidophilus) 1 tablet PO DAILY [facility] Last Admin: 09/22/18 08:21 Dose: 1 tablet Loperamide HCl (Imodium) 2 mg PO Q4H PRN PRN PRN Reason: DIARRHEA/LOOSE STOOLS Last Admin: 09/22/18 09:46 Dose: 2 mg Magnesium Hydroxide (Milk Of Magnesia) 30 ml PO DAILY PRN PRN PRN Reason: Constipation Montelukast Sodium (Singulair) 10 mg PO DAILY [facility] Last Admin: 09/22/18 08:23 Dose: 10 mg Morphine Sulfate () 1 mg IV Q4H PRN PRN PRN Reason: MOD-SEVERE PAIN (4-10/10) Last Admin: 09/21/18 08:40 Dose: 1 mg Multivitamins/Minerals (Multivitamin With Minerals) 1 tablet PO DAILY@1200 [facility] Last Admin: 09/22/18 12:01 Dose: 1 tablet Nutritional Formula (Lactose Free) (Glucerna Shake) 120 ml PO TIDCM [facility] Last Admin: 09/23/18 08:52 Dose: 120 ml Oxycodone HCl (Oxyir) 5 mg PO Q4H PRN PRN PRN Reason: MOD-SEVERE PAIN (4-10/10) Last Admin: 09/22/18 17:47 Dose: 5 mg Pantoprazole Sodium (Protonix) 40 mg PO DAILY [facility] Last Admin: 09/22/18 08:23 Dose: 40 mg Pravastatin Sodium (Pravachol) 20 mg PO QHS [facility] Last Admin: 09/22/18 21:22 Dose: 20 mg Promethazine HCl (Phenergan) 12.5 mg IM Q6H PRN PRN; Protocol PRN Reason: NAUSEA/VOMITING Psyllium Hydrophilic Mucilloid (Metamucil) 1 packet PO DAILY PRN PRN PRN Reason: CONSTIPATION Senna/Docusate Sodium (Senokot-S, Gricel-Colace) 2 tablet PO BID [facility] Last Admin: 09/22/18 21:22 Dose: Not Given Sodium Chloride () 5 - 15 ml IV UD PRN PRN Reason: SALINE FLUSH Last Admin: 09/22/18 15:26 Dose: 10 ml Tolterodine Tartrate (Detrol La) 4 mg PO DAILY [facility] Last Admin: 09/22/18 08:21 Dose: 4 mg Medical Necessity - Tobacco Use Smoking Status: Former smoker Tobacco Use: Non-smoker Assessment/Plan All Active Problems (Last Updated 07/19/18 @ 08:25 by Ras Patterson MD) Ulcer of back (Acute) Cellulitis of left lower extremity (Acute) Sepsis (Acute) Acute cystitis (Acute) Decubitus ulcer (Acute) 67 year old F with past medical history of chronic sacral and right foot ulcers followed in up in the wound center, hypertension, type II DM, diet controlled, obesity, history of gastric bypass who comes in after a fall and sustained left knee pain. 1. POD #2, status post open reduction, internal fixation of left periprosthetic distal femoral fracture Pain is fairly controlled, wound is dry and intact, surgical recommendations by orthopedic team 2. Hypertension, controlled, not on medications, will continue to monitor 3. Type II DM, diet controlled, last HgbA1c in Jul 2018 was 4.4; repeat HbA1c in this admission was 6.6 Blood sugars are uncontrolled, not on metformin, continue with high dose insulin sliding scale, continue with Accu-Cheks 4. Lower extremity edema, reported history of CHF, on Lasix, will hold oral Lasix and start patient on IV Lasix to assist with the leg edema to aid with wound healing, wraps to lower extremity, elevate lower extremity 5. Hyperlipidemia, on statin 6. Chronic sacral decubitus ulcer as well as right foot ulcer, history of underlining chronic edema being followed up in the outpatient, on Lasix in the outpatient, will consult wound nurse and continue on Lasix 7. Anxiety/depression, on Lexapro 8. History of gastric bypass, multiple abdominal surgeries, history of diarrhea on and off, on as needed Imodium 9. DVT PPx- Lovenox 10. Disposition - DC to [facility] facility when okay with orthopedics and bed is available Code Visit Inpatient E&M: 30429 Subs Hosp L2
[2018-09-23] MEDS: Furosemide 20 MG/2 ML VIAL IV (11:11)
[2018-09-23] MEDS: Escitalopram Oxalate 20 MG Tablet PO (11:11)
[2018-09-23] MEDS: Enoxaparin 40 MG/0.4 ML Syringe SC (11:11)
[2018-09-23] MEDS: Montelukast 10 MG Tablet PO (11:11)
[2018-09-23] MEDS: Famotidine 20 MG Tablet PO (11:11)
[2018-09-23] MEDS: Tolterodine Tartrate 4 MG CAP.SA PO (11:11)
[2018-09-23] MEDS: Pantoprazole Sodium 40 MG Tablet PO (11:11)
[2018-09-23] MEDS: 0.9% NaCl Peripheral Flush Adult/Peds IV (11:12)
[2018-09-23 12:10] LABS: Bedside Glucose 313 mg/dL (70-110)
[2018-09-23] MEDS: Multivitamins,Ther W-Minerals Tablet 1 TABLET PO (12:43)
[2018-09-23] MEDS: oxyCODONE 5 MG Tablet PO (14:07)
[2018-09-23 17:16] LABS: Bedside Glucose 290 mg/dL (70-110)
[2018-09-23] MEDS: Pravastatin 20 MG Tablet PO (21:09)
[2018-09-23] MEDS: Gabapentin 600 MG Tablet PO (21:09)
[2018-09-23 21:20] LABS: Bedside Glucose 167 mg/dL (70-110)
[2018-09-24 05:42] VITALS: BP 119/58; PULSE 73; RESP 16; TEMP 37.2; O2SAT 92
[2018-09-24] MEDS: oxyCODONE 5 MG Tablet PO (05:49)
[2018-09-24] MEDS: Acetaminophen 325 MG Tablet 650 MG PO (05:49)
[2018-09-24 06:43] LABS: Hematocrit 31.9 % (37-47); Hemoglobin 9.4 g/dl (12.0-15.0); Mean Corp Hgb Conc 29.5 g/gl (32-36); Mean Corpuscular Hgb 28.8 pg (27.0-32.0); Mean Corpuscular Volume 97.9 fL (81-99); Mean Platelet Vol. 11.5 fl (6.2-12.0); Platelet Count 127 K/mm3 (150-450); RBC Distribution Width SD 48.2 fl (35.1-43.9); Red Blood Count 3.26 M/mm3 (4.2-5.4); White Blood Count 7.8 K/mm3 (4.4-11.0)
[2018-09-24] MEDS: Insulin Lispro 100 UNIT/ML INSULN.PEN SQ ×2 (06:43→12:33)
[2018-09-24 06:50] LABS: Scan Indicated on CBC? Y/N NO
[2018-09-24 06:54] LABS: Anion Gap 3 (5-15); BUN 22 mg/dL (7-18); BUN/Creat Ratio 30.9 RATIO (10-20); Calcium,Total 7.9 mg/dL (8.5-10.1); Chloride 105 mmol/L (98-107); Creatinine, Serum 0.71 mg/dL (0.55-1.02); EST Glomerular Filtration Rate 86 mL/min (>60); Est Glom Filt Rate - Afr Amer 104 mL/min (>60); Estimated Creatinine Clearance 45.85 ml/min; Glucose 188 mg/dL (74-106); Potassium 4.7 mmol/L (3.5-5.1); Sodium Level 142 mmol/L (136-145)
[2018-09-24 06:56] LABS: Bedside Glucose 180 mg/dL (70-110)
--- NOTE | 2018-09-24 07:21 | PCM.TXEXTCAR ---
- Diet 09/22/18 06:24 Diabetic [Diet: Calorie Controlled] Is pt able to select menu?: Yes How many daily calories?: 1800 calorie - Routine Orders/Code Status Keep PO Greater than or Equal to (%): 94 - Encourage use of incentive spirometer Routine Lab Work: CBC - within 3 days, BMP - within 3 days Code Status: Full Code - Wound(s) CLEFT Wound Type: Pressure Injury L HEEL Wound Type: Pressure Injury Dressing Change: Fibrocol sacrum Wound Type: Pressure Injury Dressing Change: Promogran LLE Wound Type: Surgical Incision - Therapies Weight Bearing: Non weight bearing Physical Therapy: Eval and Treat Occupational Therapy: Eval and Treat - Problem/Diagnosis (1) Sacral decubitus ulcer, stage III Status: Chronic Current Visit: No (2) Decubitus ulcer of left heel, stage 2 Status: Chronic Current Visit: No (3) Type 2 diabetes mellitus without complications Status: Chronic Current Visit: No (4) PVD (peripheral vascular disease) Status: Chronic Current Visit: No (5) Asthma Status: Chronic Current Visit: No - Allergies/Procedures Done in Hospital Allergies/Adverse Reactions: Allergies lisinopril Adverse Reaction (Intermediate, Verified 09/21/18 05:46) Unknown penicillin G Adverse Reaction (Intermediate, Verified 09/21/18 05:46) Unknown exenatide [From Byetta] Adverse Reaction (Unknown, Verified 09/21/18 05:46) Unknown Procedures: None - Type of Care/Length of Stay Estimated LOS: Convalescent Care Less Than 30 days Type of Care Needed: Skilled Rehab Potential: Good Prognosis: Good - Additional Orders/Day of Discharge Additional Orders: Per orthopedics: DVT prophylaxis: Currently on Lovenox recommend discharge on Lovenox or Xarelto for 2 weeks followed by 2 weeks of aspirin 81 mg twice daily. Physical therapy: Nonweightbearing, no range of motion. Patient is a knee immobilizer. She will do physical therapy for ADLs and transfers. Disposition: Follow-up in Dr. Jose's office in 2 weeks for x-ray check and wound check. Nonweightbearing for a total of 6 weeks. Lots of ice and elevation. Maintain knee immobilizer. Day of Discharge: 09/24/18 - Dietary and Speech Recommendations Dietitian Recommendations/Changes: Recommend INSIDE SALES DIRECTOR consultation--pt reports ongoing issues with chewing/swallowing. Recommend advance diet to 1800 calorie controlled as medically indicated, with consistency per INSIDE SALES DIRECTOR. Recommend add Abhilash 1 pkt PO BID for wound healing - order from pharmacy. - Follow Up Care Primary Care Physician: Albert Jarvis Chi, MD [Primary Care Provider] - Please follow up with your Primary Care Physician in: within 1-2 weeks Please Follow Up With: Keith Jose MD When: in 2 weeks
--- NOTE | 2018-09-24 07:25 | TREXTCAR_ITS ---
- Diet 09/22/18 06:24 Diabetic [Diet: Calorie Controlled] Is pt able to select menu?: Yes How many daily calories?: 1800 calorie - Routine Orders/Code Status Keep PO Greater than or Equal to (%): 94 - Encourage use of incentive spirometer Routine Lab Work: CBC - within 3 days, BMP - within 3 days Code Status: Full Code - Wound(s) CLEFT Wound Type: Pressure Injury L HEEL Wound Type: Pressure Injury Dressing Change: Fibrocol sacrum Wound Type: Pressure Injury Dressing Change: Promogran LLE Wound Type: Surgical Incision - Therapies Weight Bearing: Non weight bearing Physical Therapy: Eval and Treat Occupational Therapy: Eval and Treat - Problem/Diagnosis (1) Sacral decubitus ulcer, stage III Status: Chronic Current Visit: No (2) Decubitus ulcer of left heel, stage 2 Status: Chronic Current Visit: No (3) Type 2 diabetes mellitus without complications Status: Chronic Current Visit: No (4) PVD (peripheral vascular disease) Status: Chronic Current Visit: No (5) Asthma Status: Chronic Current Visit: No - Allergies/Procedures Done in Hospital Allergies/Adverse Reactions: Allergies lisinopril Adverse Reaction (Intermediate, Verified 09/21/18 05:46) Unknown penicillin G Adverse Reaction (Intermediate, Verified 09/21/18 05:46) Unknown exenatide [From Byetta] Adverse Reaction (Unknown, Verified 09/21/18 05:46) Unknown Procedures: None - Type of Care/Length of Stay Estimated LOS: Convalescent Care Less Than 30 days Type of Care Needed: Skilled Rehab Potential: Good Prognosis: Good - Additional Orders/Day of Discharge Additional Orders: Per orthopedics: DVT prophylaxis: Currently on Lovenox recommend discharge on Lovenox or Xarelto for 2 weeks followed by 2 weeks of aspirin 81 mg twice daily. Physical therapy: Nonweightbearing, no range of motion. Patient is a knee immobilizer. She will do physical therapy for ADLs and transfers. Disposition: Follow-up in Dr. Jose's office in 2 weeks for x- ray check and wound check. Nonweightbearing for a total of 6 weeks. Lots of ice and elevation. Maintain knee immobilizer. Day of Discharge: 09/24/18 - Dietary and Speech Recommendations Dietitian Recommendations/Changes: Recommend QUALITY CONTROLLER consultation--pt reports ongoing issues with chewing/swallowing. Recommend advance diet to 1800 calorie controlled as medically indicated, with consistency per QUALITY CONTROLLER. Recommend add Abhilash 1 pkt PO BID for wound healing - order from pharmacy. - Follow Up Care Primary Care Physician: Albert Jarvis Chi, MD [Primary Care Provider] - Please follow up with your Primary Care Physician in: within 1-2 weeks Please Follow Up With: Keith Jose MD When: in 2 weeks
--- NOTE | 2018-09-24 07:41 | PN.ORTHO_ITS ---
Subjective: The patient was sitting in bed upon examination. Patient denies any chest pain, shortness of breath, dizziness, lightheadedness, nausea or vomiting, or calf pain. Pain is controlled on medications. No adverse overnight events. Plan is for patient to be discharged today to nursing home facility. Objective: Vital signs stable and afebrile. 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 Sensation is intact to light touch to saphenous, sural, superficial and deep peroneal, and tibial distribution. Dressing is clean dry and intact. Negative Homans bilaterally, negative signs and symptoms of DVT. - Physical Exam General: Alert, Oriented x3, Cooperative, No apparent distress Vital Signs Temp Pulse Resp BP Pulse Ox 99 F 73 16 119/58 L 92 09/24/18 05:42 09/24/18 05:42 09/24/18 05:42 09/24/18 05:42 09/24/18 05:42 Oxygen Flow Rate (L/min) 3 Oxygen Delivery Method Room Air Weight: 88.6 kg Body Mass Index (BMI) 33.6 Finger Stick Blood Glucose 148 Intake and Output for Last 24 Hours 09/22/18 09/23/18 09/24/18 23:59 23:59 23:59 Intake Total 1060 / 1060 660 / 660 140 / 140 Output Total 1025 / 1025 1075 / 1075 275 / 275 Balance 35 / 35 -415 / -415 -135 / -135 Laboratory Tests Past 24 Hrs 09/24/18 09/24/18 06:30 06:30 WBC 7.8 RBC 3.26 L Hgb 9.4 L Hct 31.9 L MCV 97.9 MCH 28.8 MCHC 29.5 L RDW 14.0 RDW Differential 48.2 H Plt Count 127 L MPV 11.5 Sodium 142 Potassium 4.7 Chloride 105 Carbon Dioxide 34.0 H Anion Gap 3 L BUN 22 H Creatinine 0.71 Estim Creat Clear Calc 45.85 Est GFR (MDRD) Af Amer 104 Est GFR (MDRD) Non-Af 86 BUN/Creatinine Ratio 30.9 H Glucose 188 H Calcium 7.9 L POC Glucose 09/24/18 09/23/18 09/23/18 06:42 21:09 16:25 POC Glucose 180 H 167 H 290 H 09/23/18 11:44 POC Glucose 313 H Medical Necessity - Tobacco Use Smoking Status: Former smoker Tobacco Use: Non-smoker Assessment/Plan All Active Problems (Last Updated 07/19/18 @ 08:25 by Ras Patterson MD) Ulcer of back (Acute) Cellulitis of left lower extremity (Acute) Sepsis (Acute) Acute cystitis (Acute) Decubitus ulcer (Acute) 1. S/P open reduction internal fixation left periprosthetic distal femur fracture POD #3 2. Continue Pain Medications: Tylenol and OxyIR 3. DVT Prophylaxis: Currently on Lovenox. Recommend 2 weeks of Lovenox followed by 2 weeks of 81 mg aspirin twice daily for a total of 4 weeks coverage for DVT prophylaxis 4. PT/OT: Nonweightbearing left lower extremity 6 weeks postoperatively. No range of motion left knee. Continue with knee immobilizer. Continue with physical therapy for ADLs and transfers 5. H & H: 9.4/31.9, asymptomatic 6. Encouraged Incentive Spirometry 7. Continue postoperative medical management per medicine 8. Disposition: Orthopedically stable, plan will be for discharge healed nursing facility today. Continue with pain medications listed above as well as DVT prophylaxis. Can remove dressing 5 days postoperatively followed by a dry dressing changes daily. Continue with knee immobilizer and will be nonweightbearing for 6 weeks postoperatively. Patient will follow-up with [facility] 2 weeks postoperatively for x-ray check and wound check. Appreciate assistance with management of patient while in hospital.
[2018-09-24 09:44] VITALS: BP 107/50; PULSE 73; RESP 16; TEMP 36.8; O2SAT 95
--- NOTE | 2018-09-24 10:02 | CASEMGMT ---
Pt is ready for discharge today. KEVIN faxed discharge paperwork along w/hospital exemption(completed in [facility] system) to [facility]. KEVIN spoke w/pt, she is agreeable to discharge to [facility] today, has no preference for transport company. KEVIN set up a 1:30pm ambulance w/[facility] [place]. KEVIN let pt, pt's RN, and Gen[facility] at [facility] know time. No further needs, pt to [facility] today. ASHWIN Nice, BINDER CASER
[2018-09-24] MEDS: Enoxaparin 40 MG/0.4 ML Syringe SC (10:03)
[2018-09-24] MEDS: Tolterodine Tartrate 4 MG CAP.SA PO (10:03)
[2018-09-24] MEDS: Escitalopram Oxalate 20 MG Tablet PO (10:03)
[2018-09-24] MEDS: Pantoprazole Sodium 40 MG Tablet PO (10:03)
[2018-09-24] MEDS: Famotidine 20 MG Tablet PO (10:03)
[2018-09-24] MEDS: Aspirin 81 MG TAB.CHEW PO (10:03)
[2018-09-24] MEDS: Montelukast 10 MG Tablet PO (10:03)
[2018-09-24] MEDS: Senna/Docusate Sodium 1 Tablet 2 TABLET PO (10:04)
[2018-09-24] MEDS: Glucerna Shake 120 ML LIQUID PO (10:08)
[2018-09-24] MEDS: Multivitamins,Ther W-Minerals Tablet 1 TABLET PO (12:34)
[2018-09-24 13:05] LABS: Bedside Glucose 228 mg/dL (70-110)
--- NOTE | 2018-09-24 13:17 | PCM.DC.SUM ---
Discharge Date and Diagnosis Date of Admission: 09/21/18 Date of Discharge: 09/24/18 - Primary Discharge Diagnosis Left periprosthetic distal femoral fracture Hyperglycemia - Secondary Discharge Diagnosis Chronic Problems (Last Updated 07/19/18 @ 08:25 by Ras Patterson MD) Sacral decubitus ulcer, stage III (Chronic) Decubitus ulcer of left heel, stage 2 (Chronic) Ulcer of right lower extremity with fat layer exposed (Chronic) Type 2 diabetes mellitus without complications (Chronic) PVD (peripheral vascular disease) (Chronic) Lower extremity edema (Chronic) Delayed wound healing (Chronic) Neuropathic pain (Chronic) Asthma (Chronic) Other secondary pulmonary hypertension (Chronic) Murmur, cardiac (Chronic) Hospital Course and Treatment Consultations 09/21/18 07:55 Consult: Onc/Wound/counselor/art therapist Routine Comment: Operations: None Summary of Care Provided: 67 year old F with past medical history of chronic sacral and right foot ulcers followed in up in the wound center, hypertension, type II DM, diet controlled, obesity, history of gastric bypass who comes in after a fall and sustained left knee pain. Xray of the knee shows oblique fracture of the distal femur extending to the prosthesis which soft tissue and joint reactions. Patient was admitted to the medical floor, orthopedics was consulted, patient underwent open reduction, internal fixation of left periprosthetic distal femoral fracture. Postoperatively, she continued to do well. Pain is fairly controlled, wound is dry and intact, surgical recommendations were by orthopedic team. Patient received IV Lasix for lower extremity edema. She was discharged on her oral Lasix. She was to have a left knee immobilizer. She will follow-up with Dr. Jose in the outpatient within 2 weeks. Blood sugars were found to be slightly elevated, repeat HbA1c in this admission was 6.6, she was started on metformin and discharged on insulin sliding scale also. Subjective: On the day of discharge, patient was seen and examined. She is off oxygen. Appears comfortable. Denied any pain. Objective: Physical Exam General: Alert, Oriented x3, Cooperative, No apparent distress, - - obese HEENT: Atraumatic, PERRLA, EOMI, Normocephalic Oral: Moist Mucosa Neck: Supple, No JVD, Negative Carotid Bruits Lungs: Clear to auscultation, Normal air movement Cardiovascular: Regular rate, Regular Rhythm, Normal S1, Normal S2, Murmur - 3/6 holosystolic murmur Abdomen: Bowel Sounds Present, Soft, Non Tender, Non-Distended, Obese, - - Midline scar Extremities: Edema - bipedal +2, both lower legs, dressing over the left lateral knee and thigh is intact, clean and dry, immobile immobilizer to the left knee Skin: No rashes Musculoskeletal: Tenderness - and deformity of left knee Lymphatic: No Cervical, Supraclavicular, or Inguinal Adenopathy Neurological: Cranial nerves II-XII grossly intact Psych/Mental Status: Normal Affect, Appropriate - Physical Exam Vital Signs Temp Pulse Resp BP Pulse Ox 98.2 F 73 16 107/50 L 95 09/24/18 09:44 09/24/18 09:44 09/24/18 09:44 09/24/18 09:44 09/24/18 09:44 Oxygen Flow Rate (L/min) 3 Oxygen Delivery Method Room Air Weight: 88.6 kg Body Mass Index (BMI) 33.6 Finger Stick Blood Glucose 148 Intake and Output for Last 24 Hours 09/22/18 09/23/18 09/24/18 23:59 23:59 23:59 Intake Total 1060 / 1060 660 / 660 140 / 140 Output Total 1025 / 1025 1075 / 1075 275 / 275 Balance 35 / 35 -415 / -415 -135 / -135 Laboratory Tests Past 24 Hrs 09/24/18 09/24/18 06:30 06:30 WBC 7.8 RBC 3.26 L Hgb 9.4 L Hct 31.9 L MCV 97.9 MCH 28.8 MCHC 29.5 L RDW 14.0 RDW Differential 48.2 H Plt Count 127 L MPV 11.5 Sodium 142 Potassium 4.7 Chloride 105 Carbon Dioxide 34.0 H Anion Gap 3 L BUN 22 H Creatinine 0.71 Estim Creat Clear Calc 45.85 Est GFR (MDRD) Af Amer 104 Est GFR (MDRD) Non-Af 86 BUN/Creatinine Ratio 30.9 H Glucose 188 H Calcium 7.9 L POC Glucose 09/24/18 09/24/18 09/23/18 12:30 06:42 21:09 POC Glucose 228 H 180 H 167 H 09/23/18 16:25 POC Glucose 290 H Discharge Diet: Low fat/ Low Cholesterol, 2000 mg Sodium Diet Discharge Activity: Return to Normal Activity Home Medications: Medications to take at Discharge Aspirin [Aspirin, Baby] 81 mg PO DAILY@0800 03/24/15 Escitalopram Oxalate [Lexapro] 20 mg PO DAILY 03/24/15 Montelukast [Singulair] 10 mg PO DAILY 03/24/15 Multivitamins,Ther W-Minerals [Multivitamin With Minerals] 1 tab PO DAILY 03/24/15 Pravastatin [Pravachol] 20 mg PO QHS 03/24/15 gabapentin 300 mg capsule 600 mg PO QHS cap 10/20/17 polysaccharide iron complex 150 mg iron capsule 150 mg PO QDAY cap 10/20/17 furosemide 20 mg tablet 20 mg PO QDAY #30 tab 11/11/17 Oxybutynin Chloride [Ditropan Xl] 15 mg PO DAILY 03/30/18 Acetaminophen [Tylenol Tablet] 650 mg PO Q6H PRN PRN tablet 07/21/18 Lactobacillus Acidophilus [Acidophilus] 1 tab PO DAILY #30 tab 07/21/18 Loperamide [Imodium] 2 mg PO Q4H PRN PRN #0 capsule 07/21/18 Pilocarpine HCl 5 mg PO TID #0 07/21/18 Famotidine 1 tab PO DAILY 09/21/18 Acetaminophen [Tylenol Tablet] 650 mg PO Q6H PRN PRN tablet 09/24/18 Enoxaparin [Lovenox] 40 mg SC DAILY@1000 syringe 09/24/18 Ferrous Sulfate 325 mg PO BID #60 tablet 09/24/18 Glucerna Shake 120 ml PO TIDCM liquid 09/24/18 Insulin Lispro [Humalog KwikPen] See Protocol SQ ACHS insuln.pen 09/24/18 Metformin HCl [Glucophage] 500 mg PO BIDCM tablet 09/24/18 Oxycodone [Oxyir] 5 mg PO Q4H PRN PRN 5 Days #20 tab 09/24/18 Senna/Docusate Sodium [Senokot-S] 2 tablet PO BID tablet 09/24/18 Following Prescrptions Were Given to Patient: Oxycodone [Oxyir] 5 mg PO Q4H PRN PRN 5 Days #20 tab PRN Reason: Mod-Severe Pain (4-10/10) Ferrous Sulfate 325 mg PO BID #60 tablet Primary Care Physician: Albert Jarvis Chi, MD [Primary Care Provider] - Please follow up with your Primary Care Physician in: within 1-2 weeks Please Follow Up With: Keith Jose MD When: in 2 weeks Disposition: Nursing Home facility Minutes spent on discharge:: 40 Patient Condition:: Stable Medical Necessity - Tobacco Use Smoking Status: Former smoker Tobacco Use: Non-smoker Meaningful Use Info Meaningful Use Diagnoses (Choose all that apply): None applicable Code Visit Inpatient E&M: 58240 Disch Hosp
== END 2018-09-24 13:27 | disposition skilled nursing facility (03) | DRG 480 ==
LOC: ED 07:33 → MS2 07:36
PROVIDERS: Anesthesiology; Specialist; Admitting Provider Internal Medicine; Emergency Provider Emergency Medicine; Family Provider Family Medicine Geriatric Medicine; PCP Family Medicine Geriatric Medicine; Visit Provider Internal Medicine
PROC: 0QSC04Z Reposition Left Lower Femur with Internal Fixation Device, Open Approach (ICD-10-PCS; principal; 2018-09-21 07:00)
DX: S72.402A Unspecified fracture of lower end of left femur, initial encounter for closed fracture (principal); L89.153 Pressure ulcer of sacral region, stage 3; M97.12XA Periprosthetic fracture around internal prosthetic left knee joint, initial encounter; E78.5 Hyperlipidemia, unspecified; I10 Essential (primary) hypertension; W18.30XA Fall on same level, unspecified, initial encounter; Y93.01 Activity, walking, marching and hiking; Y92.013 Bedroom of single-family (private) house as the place of occurrence of the external cause; L89.622 Pressure ulcer of left heel, stage 2; E11.65 Type 2 diabetes mellitus with hyperglycemia; I27.20 Pulmonary hypertension, unspecified; J45.909 Unspecified asthma, uncomplicated; I73.9 Peripheral vascular disease, unspecified; R01.1 Cardiac murmur, unspecified; Z87.891 Personal history of nicotine dependence; Z98.84 Bariatric surgery status
CPT/HCPCS: 36415; 71045; 72170; 73552; 73560; 76000; 80048; 80076; 82550; 82962; 83036; 85025; 85027; 93005; 97163; 97166; 97530; 97802; 99251; 99285; C1713; J7040; J7120; A4216; G0463; J1940; J2405

== ENCOUNTER 2019-01-06 05:52 | Day surgery (SDC) | payer MEDICARE, OTHER, SELFPAY ==
[2018-10-07 13:11] VITALS: BMI 31.4
[2019-01-06 06:23] VITALS: BP 156/66; PULSE 70; RESP 18; TEMP 36.8; O2SAT 92; BMI 32.1
[2019-01-06 06:41] LABS: Bedside Glucose 160 mg/dL (70-110)
[2019-01-06] MEDS: Cefazolin 2 GM in 0.9% Normal Saline 100 ML IV (07:24)
[2019-01-06] MEDS: Lidocaine Jelly 2% 20 ML Syringe (URO-JET) 20 APPLIC (07:41)
--- NOTE | 2019-01-06 07:48 | DCINST_ITS ---
Discharge Diet: Light diet - advance as tolerated Discharge Activity: Return to Normal Activity Allergies/Adverse Reactions: Allergies lisinopril Adverse Reaction (Intermediate, Verified 12/30/18 13:12) Unknown penicillin G Adverse Reaction (Intermediate, Verified 12/30/18 13:12) Unknown exenatide [From Byetta] Adverse Reaction (Unknown, Verified 12/30/18 13:12) Unknown Medications to take at Discharge Aspirin [Aspirin, Baby] 81 mg PO DAILY@0800 03/24/15 Escitalopram Oxalate [Lexapro] 20 mg PO DAILY 03/24/15 Montelukast [Singulair] 10 mg PO DAILY 03/24/15 Multivitamins,Ther W-Minerals [Multivitamin With Minerals] 1 tab PO DAILY 03/24/15 gabapentin 300 mg capsule 600 mg PO QHS cap 10/20/17 Oxybutynin Chloride [Ditropan Xl] 15 mg PO DAILY 03/30/18 Acetaminophen [Tylenol Tablet] 650 mg PO Q6H PRN PRN tab 07/21/18 Lactobacillus Acidophilus [Acidophilus] 1 tab PO DAILY #30 tab 07/21/18 Loperamide [Imodium] 2 mg PO Q4H PRN PRN #0 cap 07/21/18 Pilocarpine HCl 5 mg PO TID #0 07/21/18 Ferrous Sulfate 325 mg PO BID #60 tab 09/24/18 cholecalciferol (vitamin D3) 2,000 unit capsule 2,000 unit PO DAILY 10/07/18 famotidine 40 mg tablet 20 mg PO DAILY tab 10/07/18 simvastatin 10 mg tablet 10 mg PO QHS 10/07/18 Amlodipine Besylate [Norvasc] 10 mg PO DAILY 12/30/18 Furosemide [Lasix] 20 mg PO QODAY 12/30/18 traMADol [Ultram (G)] 50 mg PO Q6H PRN PRN 12/30/18 Primary Care Physician: Albert Jarvis Chi, MD [Primary Care Provider] - Test Results: Test results from this visit will be discussed in further detail at your follow- up appointment, if applicable. Please Follow Up With: Dwain Carranza MD When: in 2 weeks, please call to make an appointment.
--- NOTE | 2019-01-06 07:52 | PCM.OPRPT ---
Report of Operation Date of Procedure: 01/06/19 Pre-Operative Diagnosis: Urge incontinence and overactive bladder Post-Operative Diagnosis: Same Surgery/Procedure Performed:: Cystoscopy and injection of Botox 100 units into the bladder Description of Surgical Findings:: 68-year-old female was taken back to the operating room after smooth induction of MAC local, she was placed in dorsolithotomy position, the urethra and vaginal area prepped and draped in usual sterile fashion. We then instilled lidocaine jelly into the urethra. I then went through the urethra with a cystoscope. Inside the bladder she had a heavily trabeculated bladder, the Botox was then prepared in the back table we mixed 10 ml of sterile saline with 100 units of Botox, then using a long needle for the cystoscope we injected 100 units of Botox into the bladder and about 15 sites into the back of the bladder after the procedure there was minimal bleeding the bladder was drained and the patient said it was worse that she is taken back to the PACU in good condition she will follow-up in about a month for checkup. Type of Anesthesia:: General Drains: none - Admit VTE Documentation VTE Present on Admission: No VTE Mechan Device Prophylaxis: SCD's
[2019-01-06 07:55] VITALS: BP 140/71; BP 156/66; PULSE 76; RESP 18; TEMP 37.2; O2SAT 92
[2019-01-06 08:01] VITALS: BP 149/74; BP 156/66; PULSE 75; RESP 18; O2SAT 92
[2019-01-06 08:09] VITALS: BP 152/76; BP 156/66; BP 160/81; PULSE 71; PULSE 76; RESP 18; O2SAT 95; O2SAT 98
[2019-01-06 09:28] VITALS: BP 135/113; BP 156/66; PULSE 70; RESP 18; TEMP 36.7; O2SAT 93
== END 2019-01-06 09:29 | disposition home or self-care (01) ==
LOC: SDC 05:53 → AC 05:55
PROVIDERS: Family Provider Family Medicine Geriatric Medicine; PCP Family Medicine Geriatric Medicine; Referring Provider Urology; Visit Provider Urology
PROC: 3E0K8GC Introduction of Other Therapeutic Substance into Genitourinary Tract, Via Natural or Artificial Opening Endoscopic (ICD-10-PCS; CPT 52287; principal; 2019-01-06 07:20)
DX: N39.41 Urge incontinence (principal); N32.81 Overactive bladder; N32.89 Other specified disorders of bladder; E11.9 Type 2 diabetes mellitus without complications; F32.9 Major depressive disorder, single episode, unspecified; Z79.899 Other long term (current) drug therapy; E78.00 Pure hypercholesterolemia, unspecified; Z79.82 Long term (current) use of aspirin; I10 Essential (primary) hypertension; J45.909 Unspecified asthma, uncomplicated; Z98.84 Bariatric surgery status; G47.30 Sleep apnea, unspecified
CPT/HCPCS: 52287; 82962; J7120; J0585; J2405; J3490

== ENCOUNTER → 2019-01-13 15:24 | Outpatient (CLI) | payer MEDICARE, OTHER, SELFPAY ==
[2019-01-06 06:23] VITALS: BMI 32.1
--- NOTE | 2019-01-13 16:12 | RAD_ITS ---
STUDY: X-RAY - LEFT CALCANEUS REASON FOR EXAM: Female, 68 years old. Nonhealing wound for 5 to 6 weeks. Diabetic. TECHNIQUE: 2 view(s) of the calcaneus were obtained. COMPARISON: None. FINDINGS: There is demineralization of the calcaneus. And coronal fracture normal subtalar articulations. There is soft tissue irregularity about the lateral aspect of the hindfoot. There is no foreign body. RAD/Calcaneus min 2 Views IMPRESSION: Osteopenia of the calcaneus without fracture or osteomyelitis. Electronically Signed: Marcial Winston DO at 19:43 EDT Tel [phone], Service support ,
[2019-01-13 18:09] LABS: Absolute Lymphocyte Count 1.73 X10^3/ul (0.83-4.51); Absolute Neutrophil Count 3.5 X10^3/uL (2.0-7.7); Basophil# 0.02 X10^3/uL; Basophil% 0.3 % (0-1); Eosinophil# 0.08 X10^3/uL; Eosinophils% 1.4 % (0-5); Hemoglobin 12.9 g/dl (12.0-15.0); Lymphocyte # 1.73 X10^3/ul (4.0); Lymphocyte % 29.5 % (19-41); Mean Corp Hgb Conc 30.7 g/gl (32-36); Mean Corpuscular Volume 84.7 fL (81-99); Mean Platelet Vol. 11.9 fl (6.2-12.0); Monocyte% 8.5 % (0-10); Neutrophil # 3.53 X10^3/uL (2.7-7.7); Neutrophil % 60.1 % (47-70); Platelet Count 157 K/mm3 (150-450); RBC Distribution Width CV 17.5 % (11.6-14.6); RBC Distribution Width SD 53.5 fl (35.1-43.9); Red Blood Count 4.96 M/mm3 (4.2-5.4); White Blood Count 5.9 K/mm3 (4.4-11.0)
[2019-01-13 18:16] LABS: POSITIVE COUNT NO; POSITIVE DIFFERENTIAL NO; POSITIVE MORPHOLOGY NO
[2019-01-13 18:29] LABS: Erythrocyte Sedimentation Rate 19 mm/hr (0-30)
[2019-01-13 18:31] LABS: BUN 19 mg/dL (7-18); Creatinine, Serum 0.78 mg/dL (0.55-1.02); Glucose 213 mg/dL (74-106)
[2019-01-13 18:32] LABS: Anion Gap 5 (5-15); BUN/Creat Ratio 24.3 RATIO (10-20); CRP < 2.90 mg/L (0.0-3.0); Calcium,Total 8.4 mg/dL (8.5-10.1); Chloride 107 mmol/L (98-107); EST Glomerular Filtration Rate 77 mL/min (>60); Est Glom Filt Rate - Afr Amer 93 mL/min (>60); Potassium 3.6 mmol/L (3.5-5.1); Sodium Level 145 mmol/L (136-145)
[2019-01-13 23:06] LABS: M R Staph aureus DNA By PCR Negative (Negative); Probe Check PASS; Staph aureus DNA By PCR NEGATIVE (Negative)
== END ==
PROVIDERS: Family Provider Family Medicine Geriatric Medicine; PCP Family Medicine Geriatric Medicine; Referring Provider Family Medicine Geriatric Medicine; Visit Provider Family Medicine Geriatric Medicine
DX: L03.119 Cellulitis of unspecified part of limb (principal); B95.62 Methicillin resistant Staphylococcus aureus infection as the cause of diseases classified elsewhere; M10.9 Gout, unspecified
CPT/HCPCS: 36415; 73650; 80048; 85025; 85652; 86140; 87070; 87077; 87186; 87205; 87640

== ENCOUNTER 2019-01-28 12:00 | Outpatient (RCR) | payer MEDICARE, OTHER, SELFPAY ==
[2019-01-21 11:34] VITALS: BP 155/100; PULSE 75; RESP 18; TEMP 36.4; BMI 32.5
--- NOTE | 2019-01-21 12:11 | HP.PCM_ITS ---
(1) Decubitus ulcer of left heel, stage 2 Status: Chronic Current Visit: Yes Code(s): L89.622 - Pressure ulcer of left heel, stage 2 (2) Type 2 diabetes mellitus Status: Chronic Current Visit: Yes Code(s): E11.9 - Type 2 diabetes mellitus without complications History of Present Illness Date of Service: 01/21/19 Chief Complaint: Left heel ulcer History of Wound: Ms. Hendrix is a 68-year-old with past medical history as documented who was last seen here by me in September for bilateral lower extremity ulcers and sacral ulcer. She was subsequently managed at a nursing facility after hospital stay for unrelated conditions. Post detention discharge, ulcers was said to have been managed by home health nurse. A week after discharge by home health nurse with ulcer states as healed, she noted a reopening. She states that she has been managed by her primary care physician and has applied calcium alginate. She also states that she had work-up done which was negative for osteomyelitis. She sleeps with an offloading boot but does not offload as much during the day. She denies chills, fever otherwise feeling of unwell. Past Medical History Past Medical History: Chronic Problems (Last Reviewed 10/07/18 @ 13:21 by Rose Mary Taylor) Essential hypertension (Chronic) Hyperlipidemia (Chronic) Nonrheumatic mitral (valve) stenosis (Chronic) Nonrheumatic aortic (valve) stenosis (Chronic) Type 2 diabetes mellitus (Chronic) Sacral decubitus ulcer, stage III (Chronic) Decubitus ulcer of left heel, stage 2 (Chronic) Ulcer of right lower extremity with fat layer exposed (Chronic) Type 2 diabetes mellitus without complications (Chronic) PVD (peripheral vascular disease) (Chronic) Lower extremity edema (Chronic) Delayed wound healing (Chronic) Neuropathic pain (Chronic) Asthma (Chronic) Other secondary pulmonary hypertension (Chronic) Murmur, cardiac (Chronic) Surgical History: cholecystectomy, gastric bypass, total knee arthroplasty, - Allergies/Adverse Reactions: Allergies lisinopril Adverse Reaction (Intermediate, Verified 12/30/18 13:12) Unknown penicillin G Adverse Reaction (Intermediate, Verified 12/30/18 13:12) Unknown exenatide [From [place]] Adverse Reaction (Unknown, Verified 12/30/18 13:12) Unknown Home Medications: Ambulatory Orders Medication Instructions Recorded Aspirin [Aspirin, Baby] 81 mg PO DAILY@0800 03/24/15 Escitalopram Oxalate [Lexapro] 20 mg PO DAILY 03/24/15 Montelukast [Singulair] 10 mg PO DAILY 03/24/15 Multivitamins,Ther W-Minerals 1 tab PO DAILY 03/24/15 [Multivitamin With Minerals] gabapentin 300 mg capsule 600 mg PO QHS cap 10/20/17 Oxybutynin Chloride [Ditropan Xl] 15 mg PO DAILY 03/30/18 Acetaminophen [Tylenol Tablet] 650 mg PO Q6H PRN PRN tab 07/21/18 Lactobacillus Acidophilus 1 tab PO DAILY #30 tab 07/21/18 [Acidophilus] Loperamide [Imodium] 2 mg PO Q4H PRN PRN #0 cap 07/21/18 [place]ine HCl 5 mg PO TID #0 07/21/18 Ferrous Sulfate 325 mg PO BID #60 tab 09/24/18 cholecalciferol (vitamin D3) 2,000 2,000 unit PO DAILY 10/07/18 unit capsule famotidine 40 mg tablet 20 mg PO DAILY tab 10/07/18 simvastatin 10 mg tablet 10 mg PO QHS 10/07/18 Amlodipine Besylate [Norvasc] 10 mg PO DAILY 12/30/18 Furosemide [Lasix] 20 mg PO QODAY 12/30/18 traMADol [Ultram (G)] 50 mg PO Q6H PRN PRN 12/30/18 - Family History Maternal Family History: Family History (Last Reviewed 10/07/18 @ 13:21 by Rose Mary Taylor) Sister CAD (coronary artery disease) Hx of CABG No pertinent history Paternal Family History: Family History (Last Reviewed 10/07/18 @ 13:21 by Rose Mary Taylor) Sister CAD (coronary artery disease) Hx of CABG No pertinent history Sibling Family History: Family History (Last Reviewed 10/07/18 @ 13:21 by Rose Mary Taylor) Sister CAD (coronary artery disease) Hx of CABG Heart Disease Smoking Status: Former smoker Review of Systems Constitutional: Denies: Anorexia, Chills, Fever Eyes: Denies: Pain, Redness HEENT: Denies: Difficulty Swallowing Cardiovascular: Denies: Chest Pain, Chest Pressure Respiratory: Denies: Hemoptysis Gastrointestinal: Denies: Abdominal Pain, Hematemesis, Vomiting Skin: Denies: Jaundice - Physical Exam Vital Signs Temp Pulse Resp BP 97.5 F L 75 18 155/100 H 01/21/19 11:34 01/21/19 11:34 01/21/19 11:34 01/21/19 11:34 General: Alert, Oriented x3, Cooperative, No apparent distress HEENT: Atraumatic, Normocephalic Oral: Moist Mucosa Neck: Supple Lungs: Normal air movement Abdomen: Non Tender, Obese Extremities: Edema Skin: Ulcer/ Wound Wound Measurements and Assessment WC - Nurse 1 - General Ulcer Measurement Start: 01/21/19 11:34 Freq: Status: Active Protocol: Activity Type Activity Date Activity User E-Sign Co-Sign Detail Recorded Client Recorded Date Recorded By Document 01/21/19 11:34 [id number] 01/21/19 11:47 01/21/19 11:34 Wound Center Nurse 1 [Ulcer Assessment] #10 Left heel -Combined with other wound No -Current Size (cm) - Length 1.6 -Current Size (cm) - Width 2.1 -Current Size (cm) - Depth 0.1 -Total Square Cm 3.36 -Photo Taken No -Epithelialization None Present -Tunneling No -Undermining/Tunneling No -Circular Undermining No -Exudate Amt Medium -Exudate Type Serosanguineous -Wound Margin Distinct, Outline Attached -Granulation Amt None Present (0 %) -Granulation Quality N/A -Slough/Fibrin Yes -Necrosis Amt Small (1-33%) -Necrotic Tissue Type Eschar -Structure Exposed None/Limited to Skin Breakdown -Texture (Gricel-wound Skin Appearance) No Abnormality, Assessed -Moisture (Gricel-wound Skin Appearance No Abnormality, ) Assessed -Color (Gricel-wound Skin Appearance) No Abnormality, Assessed -Temperature (Gricel-wound Skin No Abnormality Appearance) (Pt Warm) -Tenderness on Palpation (Gricel-wound Yes Skin Appearance) -Ulcer Cleansing Rinsed/ Irrigated with Saline -Foul Odor after Cleansing No -Anesthetic Used 4% Lidocaine Solution [Edema Assessment] -Lower Limb Edema Present Yes -Right Calf (cm) 47 -Right Ankle (cm) 31.0 -Left Calf (cm) 44.5 -Left Ankle (cm) 27 WC - Nurse 2 - General Ulcer CM Notes Start: 01/21/19 11:34 Freq: Status: Active Protocol: Activity Type Activity Date Activity User E-Sign Co-Sign Detail Recorded Client Recorded Date Recorded By Document 01/21/19 12:02 MW [id number] 01/21/19 12:07 MW 01/21/19 12:02 Wound Center Nurse 2 [Procedure/Treatment] #10 Left heel -Time 12:03 -Correct Patient Yes -Correct Side, Site, Position Yes -Correct Procedure Yes -Procedure Performed Yes -Type of Procedure Debridement -Clinical Debridement Subcutaneous -Post Debridement Size (cm) - Length 2.3 -Post Debridement Size (cm) - Width 2.5 -Post Debridement Size (cm) - Depth 0.1 -Total Square Cm 5.75 -Wound/Ulcer Outcome Not Healed -Ulcer Cleansing Rinsed/ Irrigated with Saline -Foul Odor after Cleansing No -Bioengineered Tissue No -Bleeding Controlled with Pressure -Offloading No -Treatment Response Procedure Tolerated Well [See Physician Procedure note for Specifics] Pain Scale: 0-10 Numeric [Pain] -Is Patient Pain Free? Yes Musculoskeletal: No Muscle Wasting Neurological: Cranial nerves II-XII grossly intact Psych/Mental Status: Normal Affect Debridement Note Post-Debridement Measurements/Treatment WC - Nurse 2 - General Ulcer CM Notes Start: 01/21/19 11:34 Freq: Status: Active Protocol: Activity Type Activity Date Activity User E-Sign Co-Sign Detail Recorded Client Recorded Date Recorded By Document 01/21/19 12:02 MW [id number] 01/21/19 12:07 MW 01/21/19 12:02 Wound Center Nurse 2 #10 Left heel -Time 12:03 -Correct Patient Yes -Correct Side, Site, Position Yes -Correct Procedure Yes -Procedure Performed Yes -Type of Procedure Debridement -Clinical Debridement Subcutaneous -Post Debridement Size (cm) - Length 2.3 -Post Debridement Size (cm) - Width 2.5 -Post Debridement Size (cm) - Depth 0.1 -Total Square Cm 5.75 -Wound/Ulcer Outcome Not Healed -Ulcer Cleansing Rinsed/ Irrigated with Saline -Foul Odor after Cleansing No -Bioengineered Tissue No -Bleeding Controlled with Pressure -Offloading No -Treatment Response Procedure Tolerated Well Pain Scale: 0-10 Numeric Is Patient Pain Free? Yes Wound debrided: Left heel Wound Grade/Stage: Stage 2 Type of Debridement: Excisional debridement Anesthesia Used: 4% Lidocaine Solution Depth: Down to and including healthy tissue, in the subcutaneous layer Percentage of wound debrided: 100 Instrument Used: 5mm curette, #15 blade, Forceps Tissue Removed: Slough, devitalized and necrotic tissue Severity: Fat Layer Exposed Amount of bleeding with debridement: Mild Bleeding Controlled with: Pressure Patient tolerated procedure well Assessment/Plan Active Problems (Last Reviewed 10/07/18 @ 13:21 by Rose Mary Taylor) Type 2 diabetes mellitus (Chronic) Decubitus ulcer of left heel, stage 2 (Chronic) Assessment: Same as above. Plan: Debridement of both ulcers done as documented above. Procedure was well- tolerated. Did well with Fibracol in the past, will start on Fibracol with ABD/nurses hat over top. Change daily. Continue increased protein intake. Optimal blood sugar control. Double layer Tubigrip for edema management. Will also order CircAid's for long-term edema management. Patient strongly advised to elevate her lower extremities when seated and in bed. Continues to have significant lower extremity edema. Offloading of heel ulcer strongly recommended. She was advised to call with any further questions or concerns. Follow-up in 1 week. This note was generated with [employer] dictation software. It may contain incorrect words, spelling, and punctuation that were not noted in checking the note before signing.
[2019-01-28 12:20] VITALS: BP 163/70; PULSE 84; RESP 20; TEMP 36.2; BMI 32.5
--- NOTE | 2019-01-28 13:17 | PCM.WC.PN ---
(1) Decubitus ulcer of left heel, stage 2 Status: Chronic Current Visit: Yes Code(s): L89.622 - Pressure ulcer of left heel, stage 2 (2) Type 2 diabetes mellitus Status: Chronic Current Visit: Yes Code(s): E11.9 - Type 2 diabetes mellitus without complications Type of Wound Date of Service: 01/28/19 Chief Complaint: Left heel ulcer History of Wound: Ms. Hendrix is a 68-year-old with past medical history as documented who was last seen here by me in September for bilateral lower extremity ulcers and sacral ulcer. She was subsequently managed at a nursing facility after hospital stay for unrelated conditions. Post skilled nursing discharge, ulcers was said to have been managed by home health nurse. A week after discharge by home health nurse with ulcer states as healed, she noted a reopening. She states that she has been managed by her primary care physician and has applied calcium alginate. She also states that she had work-up done which was negative for osteomyelitis. She sleeps with an offloading boot but does not offload as much during the day. She denies chills, fever otherwise feeling of unwell. Progress of Wound: Improving. No new concerns at this time. - Physical Exam Vital Signs Temp Pulse Resp BP 97.1 F L 84 20 H 163/70 H 01/28/19 12:20 01/28/19 12:20 01/28/19 12:20 01/28/19 12:20 General: Alert, Oriented x3, Cooperative, No apparent distress HEENT: Atraumatic, Normocephalic Oral: Moist Mucosa Neck: Supple Lungs: Normal air movement Extremities: No cyanosis, Edema Skin: Ulcer/ Wound Wound Measurements and Assessment WC - Nurse 1 - General Ulcer Measurement Start: 01/21/19 11:34 Freq: Status: Active Protocol: Activity Type Activity Date Activity User E-Sign Co-Sign Detail Recorded Client Recorded Date Recorded By Document 01/28/19 12:20 DL [id number] 01/28/19 12:29 DL 01/28/19 12:20 Wound Center Nurse 1 [Ulcer Assessment] #10 Left heel -Current Size (cm) - Length 1.2 -Current Size (cm) - Width 2 -Current Size (cm) - Depth 0.1 -Total Square Cm 2.4 -Photo Taken No -Exudate Amt Small -Exudate Type Serosanguineous -Wound Margin Distinct, Outline Attached -Granulation Amt None Present (0 %) -Necrosis Amt Large (67-100%) -Necrotic Tissue Type Adherent Slough -Structure Exposed N/A -Texture (Gricel-wound Skin Appearance) Scarring -Moisture (Gricel-wound Skin Appearance Dry/Scaly ) -Color (Gricel-wound Skin Appearance) No Abnormality -Temperature (Gricel-wound Skin No Abnormality Appearance) (Pt Warm) -Tenderness on Palpation (Gricel-wound No Skin Appearance) -Ulcer Cleansing Wound Cleanser -Foul Odor after Cleansing No -Anesthetic Used 5% Lidocaine Gel [Edema Assessment] -Right Calf (cm) 43.5 -Right Ankle (cm) 29.2 -Left Calf (cm) 41 -Left Ankle (cm) 27.6 WC - Nurse 2 - General Ulcer CM Notes Start: 01/21/19 11:34 Freq: Status: Active Protocol: Activity Type Activity Date Activity User E-Sign Co-Sign Detail Recorded Client Recorded Date Recorded By Document 01/28/19 12:44 MW [id number] 01/28/19 12:46 MW 01/28/19 12:44 Wound Center Nurse 2 [Procedure/Treatment] #10 Left heel -Time 12:44 -Correct Patient Yes -Correct Side, Site, Position Yes -Correct Procedure Yes -Procedure Performed Yes -Type of Procedure Debridement -Clinical Debridement Subcutaneous -Post Debridement Size (cm) - Length 1.2 -Post Debridement Size (cm) - Width 2.0 -Post Debridement Size (cm) - Depth 0.1 -Total Square Cm 2.40 -Wound/Ulcer Outcome Not Healed -Ulcer Cleansing Rinsed/ Irrigated with Saline -Foul Odor after Cleansing No -Bioengineered Tissue No -Bleeding Controlled with Pressure -Offloading No -Treatment Response Procedure Tolerated Well [See Physician Procedure note for Specifics] Pain Scale: 0-10 Numeric [Pain] -Is Patient Pain Free? Yes Musculoskeletal: No Muscle Wasting Neurological: Cranial nerves II-XII grossly intact Psych/Mental Status: Normal Affect Debridement Note Post-Debridement Measurements/Treatment WC - Nurse 2 - General Ulcer CM Notes Start: 01/21/19 11:34 Freq: Status: Active Protocol: Activity Type Activity Date Activity User E-Sign Co-Sign Detail Recorded Client Recorded Date Recorded By Document 01/21/19 12:02 MW [id number] 01/21/19 12:07 MW Document 01/28/19 12:44 MW [id number] 01/28/19 12:46 MW 01/21/19 01/28/19 12:02 12:44 Wound Center Nurse 2 #10 Left heel -Time 12:03 12:44 -Correct Patient Yes Yes -Correct Side, Site, Position Yes Yes -Correct Procedure Yes Yes -Procedure Performed Yes Yes -Type of Procedure Debridement Debridement -Clinical Debridement Subcutaneous Subcutaneous -Post Debridement Size (cm) - Length 2.3 1.2 -Post Debridement Size (cm) - Width 2.5 2.0 -Post Debridement Size (cm) - Depth 0.1 0.1 -Total Square Cm 5.75 2.40 -Wound/Ulcer Outcome Not Healed Not Healed -Ulcer Cleansing Rinsed/ Rinsed/ Irrigated with Irrigated with Saline Saline -Foul Odor after Cleansing No No -Bioengineered Tissue No No -Bleeding Controlled with Pressure Pressure -Offloading No No -Treatment Response Procedure Procedure Tolerated Well Tolerated Well Pain Scale: 0-10 Numeric Is Patient Pain Free? Yes Yes Wound debrided: Left heel Wound Grade/Stage: Stage II Type of Debridement: Excisional debridement Anesthesia Used: 4% Lidocaine Solution Depth: Down to and including healthy tissue, in the subcutaneous layer Instrument Used: 3mm curette Tissue Removed: Slough and devitalized tissue Severity: Fat Layer Exposed Amount of bleeding with debridement: Mild Bleeding Controlled with: Pressure Patient tolerated procedure well Assessment/Plan Active Problems (Last Reviewed 10/07/18 @ 13:21 by Rose Mary Taylor) Type 2 diabetes mellitus (Chronic) Decubitus ulcer of left heel, stage 2 (Chronic) Assessment: Same as above. Plan: Debridement done as documented above, procedure was well-tolerated. Continue Fibracol with ABD/nurses hat over top. Change daily. Continue increased protein intake. Optimal blood sugar control. Double layer Tubigrip for edema management. CircAid's for long-term edema management. Patient strongly advised to elevate her lower extremities when seated and in bed. Continues to have significant lower extremity edema. Offloading of heel ulcer strongly recommended. She was advised to call with any further questions or concerns. Follow-up in 1 week. This note was generated with [employer] software. It may contain incorrect words, spelling, and punctuation that were not noted in checking the note before signing.
== END 2019-02-03 23:59 ==
LOC: WC 12:00
PROVIDERS: Family Provider Family Medicine Geriatric Medicine; PCP Family Medicine Geriatric Medicine; Visit Provider Internal Medicine
DX: E11.621 Type 2 diabetes mellitus with foot ulcer (principal); L89.622 Pressure ulcer of left heel, stage 2; I10 Essential (primary) hypertension; E78.5 Hyperlipidemia, unspecified; E11.51 Type 2 diabetes mellitus with diabetic peripheral angiopathy without gangrene; J45.909 Unspecified asthma, uncomplicated; I27.29 Other secondary pulmonary hypertension; R60.0 Localized edema; Z87.891 Personal history of nicotine dependence
CPT/HCPCS: 11042; 99213; G0463

== ENCOUNTER 2019-03-03 10:45 | Outpatient (RCR) | payer MEDICARE, OTHER, SELFPAY ==
[2019-02-04 01:16] VITALS: BP 163/70; PULSE 84; RESP 20; TEMP 36.2
[2019-02-04 11:40] VITALS: BP 161/81; PULSE 82; RESP 18; TEMP 36.3; BMI 32.5
--- NOTE | 2019-02-04 13:00 | PCM.WC.PN ---
(1) Decubitus ulcer of left heel, stage 2 Status: Chronic Current Visit: Yes Code(s): L89.622 - Pressure ulcer of left heel, stage 2 (2) Lower extremity edema Status: Chronic Current Visit: Yes Code(s): R60.0 - Localized edema Type of Wound Date of Service: 02/04/19 Chief Complaint: Left heel ulcer History of Wound: Ms. Hendrix is a 68-year-old with past medical history as documented who was last seen here by me in September for bilateral lower extremity ulcers and sacral ulcer. She was subsequently managed at a nursing facility after hospital stay for unrelated conditions. Post skilled nursing discharge, ulcers was said to have been managed by home health nurse. A week after discharge by home health nurse with ulcer states as healed, she noted a reopening. She states that she has been managed by her primary care physician and has applied calcium alginate. She also states that she had work-up done which was negative for osteomyelitis. She sleeps with an offloading boot but does not offload as much during the day. She denies chills, fever otherwise feeling of unwell. Progress of Wound: Improving. No new concerns at this time. - Physical Exam Vital Signs Temp Pulse Resp BP 97.4 F L 82 18 161/81 H 02/04/19 11:40 02/04/19 11:40 02/04/19 11:40 02/04/19 11:40 General: Alert, Oriented x3, Cooperative, No apparent distress HEENT: Atraumatic, Normocephalic Oral: Moist Mucosa Neck: Supple Lungs: Normal air movement Extremities: No cyanosis Skin: Ulcer/ Wound Wound Measurements and Assessment WC - Nurse 1 - General Ulcer Measurement Start: 02/04/19 11:40 Freq: Status: Active Protocol: Activity Type Activity Date Activity User E-Sign Co-Sign Detail Recorded Client Recorded Date Recorded By Document 02/04/19 11:40 DL [id number] 02/04/19 11:46 DL 02/04/19 11:40 Wound Center Nurse 1 [Ulcer Assessment] #10 Left heel -Current Size (cm) - Length 1.5 -Current Size (cm) - Width 1.8 -Current Size (cm) - Depth 0.1 -Total Square Cm 2.70 -Photo Taken No -Exudate Amt Small -Exudate Type Serosanguineous -Wound Margin Distinct, Outline Attached -Granulation Amt None Present (0 %) -Necrosis Amt Large (67-100%) -Necrotic Tissue Type Adherent Slough -Structure Exposed N/A -Texture (Gricel-wound Skin Appearance) Scarring -Moisture (Gricel-wound Skin Appearance Dry/Scaly ) -Color (Gricel-wound Skin Appearance) No Abnormality -Temperature (Gricel-wound Skin No Abnormality Appearance) (Pt Warm) -Tenderness on Palpation (Gricel-wound No Skin Appearance) -Ulcer Cleansing Wound Cleanser -Foul Odor after Cleansing No -Anesthetic Used 5% Lidocaine Gel [Edema Assessment] -Left Calf (cm) 42.7 -Left Ankle (cm) 26.7 WC - Nurse 2 - General Ulcer CM Notes Start: 02/04/19 11:40 Freq: Status: Active Protocol: Activity Type Activity Date Activity User E-Sign Co-Sign Detail Recorded Client Recorded Date Recorded By Document 02/04/19 12:35 MW [id number] 02/04/19 12:37 MW 02/04/19 12:35 Wound Center Nurse 2 [Procedure/Treatment] #10 Left heel -Time 12:35 -Correct Patient Yes -Correct Side, Site, Position Yes -Correct Procedure Yes -Procedure Performed Yes -Type of Procedure Debridement -Clinical Debridement Subcutaneous -Post Debridement Size (cm) - Length 1.0 -Post Debridement Size (cm) - Width 1.7 -Post Debridement Size (cm) - Depth 0.1 -Total Square Cm 1.70 -Wound/Ulcer Outcome Not Healed -Ulcer Cleansing Rinsed/ Irrigated with Saline -Foul Odor after Cleansing No -Bioengineered Tissue No -Bleeding Controlled with Pressure -Offloading No -Treatment Response Procedure Tolerated Well [See Physician Procedure note for Specifics] Pain Scale: 0-10 Numeric [Pain] -Is Patient Pain Free? Yes Musculoskeletal: No Muscle Wasting Neurological: Cranial nerves II-XII grossly intact Psych/Mental Status: Normal Affect Debridement Note Post-Debridement Measurements/Treatment - Nurse 2 - General Ulcer CM Notes Start: 02/04/19 11:40 Freq: Status: Active Protocol: Activity Type Activity Date Activity User E-Sign Co-Sign Detail Recorded Client Recorded Date Recorded By Document 02/04/19 12:35 MW [id number] 02/04/19 12:37 MW 02/04/19 12:35 Wound Center Nurse 2 #10 Left heel -Time 12:35 -Correct Patient Yes -Correct Side, Site, Position Yes -Correct Procedure Yes -Procedure Performed Yes -Type of Procedure Debridement -Clinical Debridement Subcutaneous -Post Debridement Size (cm) - Length 1.0 -Post Debridement Size (cm) - Width 1.7 -Post Debridement Size (cm) - Depth 0.1 -Total Square Cm 1.70 -Wound/Ulcer Outcome Not Healed -Ulcer Cleansing Rinsed/ Irrigated with Saline -Foul Odor after Cleansing No -Bioengineered Tissue No -Bleeding Controlled with Pressure -Offloading No -Treatment Response Procedure Tolerated Well Pain Scale: 0-10 Numeric Is Patient Pain Free? Yes Wound debrided: Left Heel Wound Grade/Stage: Stage 2 Type of Debridement: Excisional debridement Anesthesia Used: 4% Lidocaine Solution Depth: Down to and including healthy tissue, in the subcutaneous layer Percentage of wound debrided: 100 Instrument Used: 3mm curette Tissue Removed: Slough and devitalized tissue Severity: Fat Layer Exposed Amount of bleeding with debridement: Mild Bleeding Controlled with: Pressure Patient tolerated procedure well Assessment/Plan Active Problems (Last Reviewed 10/07/18 @ 13:21 by Rose Mary Taylor) Decubitus ulcer of left heel, stage 2 (Chronic) Lower extremity edema (Chronic) Assessment: Same as above. Plan: Improving ulcer. Debridement done as documented above, procedure was well-tolerated. Continue Fibracol with ABD/nurses hat over top. Change daily. Continue increased protein intake. Optimal blood sugar control. Double layer Tubigrip for edema management. CircAid's for long-term edema management. Patient strongly advised to elevate her lower extremities when seated and in bed. Continues to have significant lower extremity edema. Offloading of heel ulcer strongly recommended. She was advised to call with any further questions or concerns. Follow-up in 1 week. This note was generated with [employer] dictation software. It may contain incorrect words, spelling, and punctuation that were not noted in checking the note before signing.
[2019-02-11 12:41] VITALS: BP 151/84; PULSE 76; RESP 16; TEMP 36.7; BMI 32.5
--- NOTE | 2019-02-11 13:36 | PN.PCM_ITS ---
(1) Decubitus ulcer of left heel, stage 2 Status: Chronic Current Visit: Yes Code(s): L89.622 - Pressure ulcer of left heel, stage 2 (2) Lower extremity edema Status: Chronic Current Visit: Yes Code(s): R60.0 - Localized edema Type of Wound Date of Service: 02/11/19 Chief Complaint: Left heel ulcer History of Wound: Ms. Hendrix is a 68-year-old with past medical history as documented who was last seen here by me in September for bilateral lower extremity ulcers and sacral ulcer. She was subsequently managed at a nursing facility after hospital stay for unrelated conditions. Post skilled nursing discharge, ulcers was said to have been managed by home health nurse. A week after discharge by home health nurse with ulcer states as healed, she noted a reopening. She states that she has been managed by her primary care physician and has applied calcium alginate. She also states that she had work-up done which was negative for osteomyelitis. She sleeps with an offloading boot but does not offload as much during the day. She denies chills, fever otherwise feeling of unwell. Progress of Wound: No new concerns at this time. No significant change in the past week. - Physical Exam Vital Signs Temp Pulse Resp BP 98.0 F 76 16 151/84 H 02/11/19 12:41 02/11/19 12:41 02/11/19 12:41 02/11/19 12:41 General: Alert, Oriented x3, Cooperative, No apparent distress HEENT: Atraumatic, Normocephalic Oral: Moist Mucosa Neck: Supple Lungs: Normal air movement Extremities: No cyanosis, Edema Skin: Ulcer/ Wound Wound Measurements and Assessment WC - Nurse 1 - General Ulcer Measurement Start: 02/04/19 11:40 Freq: Status: Active Protocol: Activity Type Activity Date Activity User E-Sign Co-Sign Detail Recorded Client Recorded Date Recorded By Document 02/11/19 12:41 BS [id number] 02/11/19 12:54 BS 02/11/19 12:41 Wound Center Nurse 1 [Ulcer Assessment] #10 Left heel -Combined with other wound No -Current Size (cm) - Length 1.5 -Current Size (cm) - Width 1.7 -Current Size (cm) - Depth 0.1 -Total Square Cm 2.55 -Photo Taken No -Texture (Gricel-wound Skin Appearance) Assessed, Localized Edema -Moisture (Gricel-wound Skin Appearance Assessed, ) Maceration,Dry/ Scaly -Color (Gricel-wound Skin Appearance) Assessed -Temperature (Gricel-wound Skin No Abnormality Appearance) (Pt Warm) -Tenderness on Palpation (Gricel-wound No Skin Appearance) -Ulcer Cleansing Rinsed/ Irrigated with Saline -Foul Odor after Cleansing No -Anesthetic Used 5% Lidocaine Gel [Edema Assessment] -Lower Limb Edema Present Yes -Point of measurement (cm from the 41.0 medial instep) -Point of Measurement (cm from the 29.0 medial instep) -Point of measurement (cm from the 39.0 medial instep) -Point of Measurement (cm from the 28.0 medial instep) WC - Nurse 2 - General Ulcer CM Notes Start: 02/04/19 11:40 Freq: Status: Active Protocol: Activity Type Activity Date Activity User E-Sign Co-Sign Detail Recorded Client Recorded Date Recorded By Document 02/11/19 13:13 MW [id number] 02/11/19 13:19 MW 02/11/19 13:13 Wound Center Nurse 2 [Procedure/Treatment] #10 Left heel -Time 13:14 -Correct Patient Yes -Correct Side, Site, Position Yes -Correct Procedure Yes -Procedure Performed Yes -Type of Procedure Debridement -Clinical Debridement Subcutaneous -Post Debridement Size (cm) - Length 1.2 -Post Debridement Size (cm) - Width 1.5 -Post Debridement Size (cm) - Depth 0.1 -Total Square Cm 1.80 -Wound/Ulcer Outcome Not Healed -Ulcer Cleansing Rinsed/ Irrigated with Saline -Foul Odor after Cleansing No -Bioengineered Tissue No -Bleeding Controlled with Pressure -Offloading No [See Physician Procedure note for Specifics] Pain Scale: 0-10 Numeric [Pain] -Is Patient Pain Free? Yes Musculoskeletal: No Muscle Wasting Neurological: Cranial nerves II-XII grossly intact Psych/Mental Status: Normal Affect Debridement Note Post-Debridement Measurements/Treatment WC - Nurse 2 - General Ulcer CM Notes Start: 02/04/19 11:40 Freq: Status: Active Protocol: Activity Type Activity Date Activity User E-Sign Co-Sign Detail Recorded Client Recorded Date Recorded By Document 02/04/19 12:35 MW [id number] 02/04/19 12:37 MW Document 02/11/19 13:13 MW [id number] 02/11/19 13:19 MW 02/04/19 02/11/19 12:35 13:13 Wound Center Nurse 2 #10 Left heel -Time 12:35 13:14 -Correct Patient Yes Yes -Correct Side, Site, Position Yes Yes -Correct Procedure Yes Yes -Procedure Performed Yes Yes -Type of Procedure Debridement Debridement -Clinical Debridement Subcutaneous Subcutaneous -Post Debridement Size (cm) - Length 1.0 1.2 -Post Debridement Size (cm) - Width 1.7 1.5 -Post Debridement Size (cm) - Depth 0.1 0.1 -Total Square Cm 1.70 1.80 -Wound/Ulcer Outcome Not Healed Not Healed -Ulcer Cleansing Rinsed/ Rinsed/ Irrigated with Irrigated with Saline Saline -Foul Odor after Cleansing No No -Bioengineered Tissue No No -Bleeding Controlled with Pressure Pressure -Offloading No No -Treatment Response Procedure Tolerated Well Pain Scale: 0-10 Numeric Is Patient Pain Free? Yes Yes Wound debrided: Left heel Wound Grade/Stage: Stage II Anesthesia Used: 4% Lidocaine Solution Depth: Down to and including healthy tissue, in the subcutaneous layer Percentage of wound debrided: 100 Instrument Used: 3mm curette Tissue Removed: Slough and devitalized tissue Severity: Fat Layer Exposed Amount of bleeding with debridement: Mild Bleeding Controlled with: Pressure Patient tolerated procedure well Assessment/Plan Active Problems (Last Reviewed 10/07/18 @ 13:21 by Rose Mary Taylor) Decubitus ulcer of left heel, stage 2 (Chronic) Lower extremity edema (Chronic) Assessment: Same as above. Plan: No significant change in the past week. Debridement done as documented above, procedure was well-tolerated. Continue Fibracol with ABD/nurses hat over top. Change daily. Had no gross improvement in the past 2 weeks. Continue Fibracol for now. I believe she will benefit from a skin substitute, will begin process. Continue increased protein intake. Optimal blood sugar control. CircAid's for edema management. Patient strongly advised to elevate her lower extremities when seated and in bed. Continues to have significant lower extremity edema. Offloading of heel ulcer strongly recommended. She was advised to call with any further questions or concerns. Follow-up in 1 week. This note was generated with [employer] software. It may contain incorrect words, spelling, and punctuation that were not noted in checking the note before signing.
[2019-02-17 10:54] VITALS: BP 149/70; PULSE 81; RESP 18; TEMP 36.6; BMI 32.5
--- NOTE | 2019-02-17 16:32 | PCM.WC.PN ---
(1) Decubitus ulcer of left heel, stage 2 Status: Chronic Current Visit: Yes Code(s): L89.622 - Pressure ulcer of left heel, stage 2 (2) Lower extremity edema Status: Chronic Current Visit: Yes Code(s): R60.0 - Localized edema Type of Wound Date of Service: 02/17/19 Chief Complaint: Left heel ulcer History of Wound: Ms. Hendrix is a 68-year-old with past medical history as documented who was last seen here by me in September for bilateral lower extremity ulcers and sacral ulcer. She was subsequently managed at a nursing facility after hospital stay for unrelated conditions. Post [facility] discharge, ulcers was said to have been managed by home health nurse. A week after discharge by home health nurse with ulcer states as healed, she noted a reopening. She states that she has been managed by her primary care physician and has applied calcium alginate. She also states that she had work-up done which was negative for osteomyelitis. She sleeps with an offloading boot but does not offload as much during the day. She denies chills, fever otherwise feeling of unwell. Progress of Wound: No new concerns at this time. Again, no significant change in the past week. Now approved for grafix - Physical Exam Vital Signs Temp Pulse Resp BP 98 F 81 18 149/70 H 02/17/19 10:54 02/17/19 10:54 02/17/19 10:54 02/17/19 10:54 General: Alert, Oriented x3, Cooperative, No apparent distress HEENT: Atraumatic, Normocephalic Neck: Supple Abdomen: Non Tender, Obese Extremities: No cyanosis, Edema Skin: Ulcer/ Wound Wound Measurements and Assessment WC - Nurse 1 - General Ulcer Measurement Start: 02/04/19 11:40 Freq: Status: Active Protocol: Activity Type Activity Date Activity User E-Sign Co-Sign Detail Recorded Client Recorded Date Recorded By Document 02/17/19 10:54 NATALIA [id number] 02/17/19 10:56 RB 02/17/19 10:54 Wound Center Nurse 1 [Ulcer Assessment] #10 Left heel -Combined with other wound No -Current Size (cm) - Length 0.8 -Current Size (cm) - Width 1.4 -Current Size (cm) - Depth 0.1 -Total Square Cm 1.12 -Photo Taken No -Tunneling No -Undermining/Tunneling No -Circular Undermining No -Exudate Amt Small -Exudate Type Serosanguineous -Wound Margin Flat & Intact -Granulation Amt Large (67-100%) -Granulation Quality [place] -Slough/Fibrin Yes -Necrosis Amt Small (1-33%) -Necrotic Tissue Type Adherent Slough -Structure Exposed N/A -Texture (Gricel-wound Skin Appearance) Callus -Color (Gricel-wound Skin Appearance) Assessed -Temperature (Gricel-wound Skin No Abnormality Appearance) (Pt Warm) -Tenderness on Palpation (Gricel-wound No Skin Appearance) -Ulcer Cleansing Wound Cleanser -Foul Odor after Cleansing No -Anesthetic Used 5% Lidocaine Gel [Edema Assessment] -Lower Limb Edema Present Yes -Right Calf (cm) 45.5 -Right Ankle (cm) 30.7 -Left Calf (cm) 43.5 -Left Ankle (cm) 28.5 WC - Nurse 2 - General Ulcer CM Notes Start: 02/04/19 11:40 Freq: Status: Active Protocol: Activity Type Activity Date Activity User E-Sign Co-Sign Detail Recorded Client Recorded Date Recorded By Document 02/17/19 11:09 NELLA [id number] 02/17/19 11:12 NELLA 02/17/19 11:09 Wound Center Nurse 2 [Procedure/Treatment] #10 Left heel -Time 11:09 -Correct Patient Yes -Correct Side, Site, Position Yes -Correct Procedure Yes -Procedure Performed Yes -Type of Procedure Debridement -Clinical Debridement Subcutaneous -Post Debridement Size (cm) - Length 1.1 -Post Debridement Size (cm) - Width 1.6 -Post Debridement Size (cm) - Depth 0.1 -Total Square Cm 1.76 -Wound/Ulcer Outcome Not Healed -Ulcer Cleansing Rinsed/ Irrigated with Saline -Foul Odor after Cleansing No -Bioengineered Tissue Yes -Type of bioengineered Tissue GRAFIX-Core -Expiration Date 10/14/19 -Product Lot Number [id number] -Percent Used 100 -Saline Lot Number [id number] -Bleeding Controlled with Pressure -Offloading Yes -Type of Offloading Surgical Shoe -Treatment Response Procedure Tolerated Well [See Physician Procedure note for Specifics] Pain Scale: 0-10 Numeric [Pain] -Is Patient Pain Free? Yes Musculoskeletal: No Muscle Wasting Psych/Mental Status: Normal Affect Debridement Note Post-Debridement Measurements/Treatment WC - Nurse 2 - General Ulcer CM Notes Start: 02/04/19 11:40 Freq: Status: Active Protocol: Activity Type Activity Date Activity User E-Sign Co-Sign Detail Recorded Client Recorded Date Recorded By Document 02/04/19 12:35 MW [id number] 02/04/19 12:37 MW Document 02/11/19 13:13 MW [id number] 02/11/19 13:19 MW Document 02/17/19 11:09 JF [id number] 02/17/19 11:12 JF 02/04/19 02/11/19 02/17/19 12:35 13:13 11:09 Wound Center Nurse 2 #10 Left heel -Time 12:35 13:14 11:09 -Correct Patient Yes Yes Yes -Correct Side, Site, Position Yes Yes Yes -Correct Procedure Yes Yes Yes -Procedure Performed Yes Yes Yes -Type of Procedure Debridement Debridement Debridement -Clinical Debridement Subcutaneous Subcutaneous Subcutaneous -Post Debridement Size (cm) - Length 1.0 1.2 1.1 -Post Debridement Size (cm) - Width 1.7 1.5 1.6 -Post Debridement Size (cm) - Depth 0.1 0.1 0.1 -Total Square Cm 1.70 1.80 1.76 -Wound/Ulcer Outcome Not Healed Not Healed Not Healed -Ulcer Cleansing Rinsed/ Rinsed/ Rinsed/ Irrigated with Irrigated with Irrigated with Saline Saline Saline -Foul Odor after Cleansing No No No -Bioengineered Tissue No No Yes -Type of bioengineered Tissue GRAFIX-Core -Expiration Date 10/14/19 -Product Lot Number [id number] -Percent Used 100 -Saline Lot Number [id number] -Bleeding Controlled with Pressure Pressure Pressure -Offloading No No Yes -Type of Offloading Surgical Shoe -Treatment Response Procedure Procedure Tolerated Well Tolerated Well Pain Scale: 0-10 Numeric Is Patient Pain Free? Yes Yes Yes Wound debrided: Left foot/heel Wound Grade/Stage: Stage II Type of Debridement: Excisional debridement Anesthesia Used: 4% Lidocaine Solution Depth: Down to and including healthy tissue, in the subcutaneous layer Percentage of wound debrided: 100 Instrument Used: 3mm curette Tissue Removed: Slough and devitalized tissue Severity: Fat Layer Exposed Amount of bleeding with debridement: Mild Bleeding Controlled with: Pressure Patient tolerated procedure well Assessment/Plan Active Problems (Last Reviewed 10/07/18 @ 13:21 by Rose Mary Taylor) Decubitus ulcer of left heel, stage 2 (Chronic) Lower extremity edema (Chronic) Assessment: Same as above. Plan: Approved for grafix.still no significant change in the past week. Debridement done as documented above, procedure was well-tolerated. Initial application of Grafix done today using 100% of product. Moistened with saline and covered with wound veil/secured with Steri-Strips. Leave on for a week. Offloading again recommended. Continue increased protein intake. Optimal blood sugar control. CircAid's for edema management. Patient strongly advised to elevate her lower extremities when seated and in bed. Continues to have significant lower extremity edema. She was advised to call with any further questions or concerns. Follow-up in 1 week. This note was generated with [employer] dictation software. It may contain incorrect words, spelling, and punctuation that were not noted in checking the note before signing.
[2019-02-24 10:44] VITALS: BP 151/77; PULSE 76; RESP 18; TEMP 36.9; BMI 32.5
--- NOTE | 2019-02-24 11:22 | PCM.WC.PN ---
(1) Decubitus ulcer of left heel, stage 2 Status: Chronic Current Visit: Yes Code(s): L89.622 - Pressure ulcer of left heel, stage 2 (2) Lower extremity edema Status: Chronic Current Visit: Yes Code(s): R60.0 - Localized edema Type of Wound Date of Service: 02/24/19 Chief Complaint: Left heel ulcer History of Wound: Ms. Hendrix is a 68-year-old with past medical history as documented who was last seen here by me in September for bilateral lower extremity ulcers and sacral ulcer. She was subsequently managed at a nursing facility after hospital stay for unrelated conditions. Post [facility] discharge, ulcers was said to have been managed by home health nurse. A week after discharge by home health nurse with ulcer states as healed, she noted a reopening. She states that she has been managed by her primary care physician and has applied calcium alginate. She also states that she had work-up done which was negative for osteomyelitis. She sleeps with an offloading boot but does not offload as much during the day. She denies chills, fever otherwise feeling of unwell. Progress of Wound: No new concerns at this time. Has had 1 application of Grafix. - Physical Exam Vital Signs Temp Pulse Resp BP 98.5 F 76 18 151/77 H 02/24/19 10:44 02/24/19 10:44 02/24/19 10:44 02/24/19 10:44 General: Alert, Oriented x3, Cooperative, No apparent distress HEENT: Atraumatic, Normocephalic Neck: Supple Lungs: Normal air movement Abdomen: Non Tender, Obese Extremities: No cyanosis, Edema Skin: Ulcer/ Wound Wound Measurements and Assessment WC - Nurse 1 - General Ulcer Measurement Start: 02/04/19 11:40 Freq: Status: Active Protocol: Activity Type Activity Date Activity User E-Sign Co-Sign Detail Recorded Client Recorded Date Recorded By Document 02/24/19 10:44 DAHLIA [id number] 02/24/19 10:51 DL 02/24/19 10:44 Wound Center Nurse 1 [Ulcer Assessment] #10 Left heel -Current Size (cm) - Length 0.6 -Current Size (cm) - Width 1 -Current Size (cm) - Depth 0.1 -Total Square Cm 0.6 -Photo Taken No -Exudate Amt Small -Exudate Type Serosanguineous -Wound Margin Thickened -Granulation Amt Large (67-100%) -Granulation Quality [place] -Necrosis Amt Small (1-33%) -Necrotic Tissue Type Adherent Slough -Structure Exposed N/A -Texture (Gricel-wound Skin Appearance) Scarring -Moisture (Gricel-wound Skin Appearance Maceration ) -Color (Gricel-wound Skin Appearance) No Abnormality -Temperature (Gricel-wound Skin No Abnormality Appearance) (Pt Warm) -Tenderness on Palpation (Gricel-wound No Skin Appearance) -Ulcer Cleansing Rinsed/ Irrigated with Saline -Foul Odor after Cleansing No -Anesthetic Used 5% Lidocaine Gel WC - Nurse 2 - General Ulcer CM Notes Start: 02/04/19 11:40 Freq: Status: Active Protocol: Activity Type Activity Date Activity User E-Sign Co-Sign Detail Recorded Client Recorded Date Recorded By Document 02/24/19 11:10 MW [id number] 02/24/19 11:18 MW 02/24/19 11:10 Wound Center Nurse 2 [Procedure/Treatment] -Time 11:10 -Correct Patient Yes -Correct Side, Site, Position Yes -Correct Procedure Yes -Procedure Performed Yes -Type of Procedure Debridement -Clinical Debridement Subcutaneous -Post Debridement Size (cm) - Length 0.9 -Post Debridement Size (cm) - Width 1.2 -Post Debridement Size (cm) - Depth 0.1 -Total Square Cm 1.08 -Wound/Ulcer Outcome Not Healed -Ulcer Cleansing Rinsed/ Irrigated with Saline -Foul Odor after Cleansing No -Bioengineered Tissue Yes -Type of bioengineered Tissue GRAFIX-Pime -Expiration Date 10/29/19 -Product Lot Number [id number] -Percent Used 100 -Saline Lot Number [id number] -Bleeding Controlled with Pressure -Offloading No -Treatment Response Procedure Tolerated Well [See Physician Procedure note for Specifics] Pain Scale: 0-10 Numeric [Pain] -Is Patient Pain Free? Yes Musculoskeletal: No Muscle Wasting Neurological: Cranial nerves II-XII grossly intact Psych/Mental Status: Normal Affect Debridement Note Post-Debridement Measurements/Treatment WC - Nurse 2 - General Ulcer CM Notes Start: 02/04/19 11:40 Freq: Status: Active Protocol: Activity Type Activity Date Activity User E-Sign Co-Sign Detail Recorded Client Recorded Date Recorded By Document 02/04/19 12:35 MW [id number] 02/04/19 12:37 MW Document 02/11/19 13:13 MW [id number] 02/11/19 13:19 MW Document 02/17/19 11:09 JF [id number] 02/17/19 11:12 JF Document 02/24/19 11:10 MW [id number] 02/24/19 11:18 MW 02/04/19 02/11/19 02/17/19 12:35 13:13 11:09 Wound Center Nurse 2 #10 Left heel -Time 12:35 13:14 11:09 -Correct Patient Yes Yes Yes -Correct Side, Site, Position Yes Yes Yes -Correct Procedure Yes Yes Yes -Procedure Performed Yes Yes Yes -Type of Procedure Debridement Debridement Debridement -Clinical Debridement Subcutaneous Subcutaneous Subcutaneous -Post Debridement Size (cm) - Length 1.0 1.2 1.1 -Post Debridement Size (cm) - Width 1.7 1.5 1.6 -Post Debridement Size (cm) - Depth 0.1 0.1 0.1 -Total Square Cm 1.70 1.80 1.76 -Wound/Ulcer Outcome Not Healed Not Healed Not Healed -Ulcer Cleansing Rinsed/ Rinsed/ Rinsed/ Irrigated with Irrigated with Irrigated with Saline Saline Saline -Foul Odor after Cleansing No No No -Bioengineered Tissue No No Yes -Type of bioengineered Tissue GRAFIX-Core -Expiration Date 10/14/19 -Product Lot Number [id number] -Percent Used 100 -Saline Lot Number [id number] -Bleeding Controlled with Pressure Pressure Pressure -Offloading No No Yes -Type of Offloading Surgical Shoe -Treatment Response Procedure Procedure Tolerated Well Tolerated Well Pain Scale: 0-10 Numeric Is Patient Pain Free? Yes Yes Yes 02/24/19 11:10 Wound Center Nurse 2 #10 Left heel -Time 11:10 -Correct Patient Yes -Correct Side, Site, Position Yes -Correct Procedure Yes -Procedure Performed Yes -Type of Procedure Debridement -Clinical Debridement Subcutaneous -Post Debridement Size (cm) - Length 0.9 -Post Debridement Size (cm) - Width 1.2 -Post Debridement Size (cm) - Depth 0.1 -Total Square Cm 1.08 -Wound/Ulcer Outcome Not Healed -Ulcer Cleansing Rinsed/ Irrigated with Saline -Foul Odor after Cleansing No -Bioengineered Tissue Yes -Type of bioengineered Tissue GRAFIX-Pime -Expiration Date 10/29/19 -Product Lot Number [id number] -Percent Used 100 -Saline Lot Number [id number] -Bleeding Controlled with Pressure -Offloading No -Type of Offloading -Treatment Response Procedure Tolerated Well Pain Scale: 0-10 Numeric Is Patient Pain Free? Yes Wound debrided: Left Heel Wound Grade/Stage: Stage II Type of Debridement: Excisional debridement Anesthesia Used: 4% Lidocaine Solution Depth: Down to and including healthy tissue, in the subcutaneous layer Percentage of wound debrided: 100 Instrument Used: 3mm curette Tissue Removed: Slough and devitalized tissue Severity: Fat Layer Exposed Amount of bleeding with debridement: Mild Bleeding Controlled with: Pressure Patient tolerated procedure well Assessment/Plan Active Problems (Last Reviewed 10/07/18 @ 13:21 by Rose Mary Taylor) Decubitus ulcer of left heel, stage 2 (Chronic) Lower extremity edema (Chronic) Assessment: Same as above. Plan: Improving. Tolerated Graix without any concerns. Debridement done as documented above, procedure was well-tolerated. 2nd application of Grafix done today using 100% of product. Moistened with saline and adaptic touch. Leave on for a week. Offloading again recommended. Continue increased protein intake. Optimal blood sugar control. CircAid's for edema management. Patient strongly advised to elevate her lower extremities when seated and in bed. Continues to have significant lower extremity edema. She was advised to call with any further questions or concerns. Follow-up in 1 week. This note was generated with [employer] dictation software. It may contain incorrect words, spelling, and punctuation that were not noted in checking the note before signing.
[2019-03-03 11:16] VITALS: BP 152/90; PULSE 68; RESP 18; TEMP 36.6; BMI 32.5
--- NOTE | 2019-03-03 16:43 | PCM.WC.PN ---
(1) Decubitus ulcer of left heel, stage 2 Status: Chronic Current Visit: Yes Code(s): L89.622 - Pressure ulcer of left heel, stage 2 (2) Lower extremity edema Status: Chronic Current Visit: Yes Code(s): R60.0 - Localized edema Type of Wound Date of Service: 03/03/19 Chief Complaint: Left heel ulcer History of Wound: Ms. Hendrix is a 68-year-old with past medical history as documented who was last seen here by me in September for bilateral lower extremity ulcers and sacral ulcer. She was subsequently managed at a nursing facility after hospital stay for unrelated conditions. Post [facility] discharge, ulcers was said to have been managed by home health nurse. A week after discharge by home health nurse with ulcer states as healed, she noted a reopening. She states that she has been managed by her primary care physician and has applied calcium alginate. She also states that she had work-up done which was negative for osteomyelitis. She sleeps with an offloading boot but does not offload as much during the day. She denies chills, fever otherwise feeling of unwell. Progress of Wound: No new concerns at this time. Has had 2 applications of Grafix. - Physical Exam Vital Signs Temp Pulse Resp BP 98 F 68 18 152/90 H 03/03/19 11:16 03/03/19 11:16 03/03/19 11:16 03/03/19 11:16 General: Alert, Oriented x3, Cooperative, No apparent distress HEENT: Atraumatic, Normocephalic Oral: Moist Mucosa Neck: Supple Lungs: Normal air movement Extremities: No cyanosis, Edema Skin: Ulcer/ Wound Wound Measurements and Assessment WC - Nurse 1 - General Ulcer Measurement Start: 02/04/19 11:40 Freq: Status: Active Protocol: Activity Type Activity Date Activity User E-Sign Co-Sign Detail Recorded Client Recorded Date Recorded By Document 03/03/19 11:16 [id number] 03/03/19 11:26 RB 03/03/19 11:16 Wound Center Nurse 1 [Ulcer Assessment] #10 Left heel -Combined with other wound No -Current Size (cm) - Length 1.3 -Current Size (cm) - Width 1.6 -Current Size (cm) - Depth 0.1 -Total Square Cm 2.08 -Tunneling No -Undermining/Tunneling No -Circular Undermining No -Exudate Amt Small -Exudate Type Serosanguineous -Wound Margin Distinct, Outline Attached -Granulation Amt Large (67-100%) -Granulation Quality [place] -Slough/Fibrin Yes -Necrosis Amt Small (1-33%) -Necrotic Tissue Type Adherent Slough -Structure Exposed N/A -Texture (Gricel-wound Skin Appearance) Assessed -Moisture (Gricel-wound Skin Appearance Assessed ) -Color (Gricel-wound Skin Appearance) Assessed -Temperature (Gricel-wound Skin No Abnormality Appearance) (Pt Warm) -Tenderness on Palpation (Gricel-wound No Skin Appearance) -Ulcer Cleansing Wound Cleanser -Foul Odor after Cleansing No -Anesthetic Used 4% Lidocaine Solution [Edema Assessment] -Lower Limb Edema Present Yes -Left Calf (cm) 42 -Left Ankle (cm) 29.5 WC - Nurse 2 - General Ulcer CM Notes Start: 02/04/19 11:40 Freq: Status: Active Protocol: Activity Type Activity Date Activity User E-Sign Co-Sign Detail Recorded Client Recorded Date Recorded By Document 03/03/19 11:39 MW [id number] 03/03/19 11:46 MW 03/03/19 11:39 Wound Center Nurse 2 [Procedure/Treatment] #10 Left heel -Time 11:44 -Correct Patient Yes -Correct Side, Site, Position Yes -Correct Procedure Yes -Procedure Performed Yes -Type of Procedure Debridement -Clinical Debridement Subcutaneous -Post Debridement Size (cm) - Length 0.7 -Post Debridement Size (cm) - Width 1.1 -Post Debridement Size (cm) - Depth 0.1 -Total Square Cm 0.77 -Wound/Ulcer Outcome Not Healed -Ulcer Cleansing Rinsed/ Irrigated with Saline -Foul Odor after Cleansing No -Bioengineered Tissue Yes -Type of bioengineered Tissue GRAFIX-Pime -Expiration Date 10/14/19 -Product Lot Number [id number] -Percent Used 100 -Saline Lot Number [id number] -Bleeding Controlled with Pressure -Offloading No -Treatment Response Procedure Tolerated Well [See Physician Procedure note for Specifics] Pain Scale: 0-10 Numeric [Pain] -Is Patient Pain Free? Yes Musculoskeletal: No Muscle Wasting Neurological: Cranial nerves II-XII grossly intact Psych/Mental Status: Normal Affect Debridement Note Post-Debridement Measurements/Treatment WC - Nurse 2 - General Ulcer CM Notes Start: 02/04/19 11:40 Freq: Status: Active Protocol: Activity Type Activity Date Activity User E-Sign Co-Sign Detail Recorded Client Recorded Date Recorded By Document 02/04/19 12:35 MW [id number] 02/04/19 12:37 MW Document 02/11/19 13:13 MW [id number] 02/11/19 13:19 MW Document 02/17/19 11:09 JF [id number] 02/17/19 11:12 JF Document 02/24/19 11:10 MW [id number] 02/24/19 11:18 MW Document 03/03/19 11:39 MW [id number] 03/03/19 11:46 MW 02/04/19 02/11/19 02/17/19 12:35 13:13 11:09 Wound Center Nurse 2 #10 Left heel -Time 12:35 13:14 11:09 -Correct Patient Yes Yes Yes -Correct Side, Site, Position Yes Yes Yes -Correct Procedure Yes Yes Yes -Procedure Performed Yes Yes Yes -Type of Procedure Debridement Debridement Debridement -Clinical Debridement Subcutaneous Subcutaneous Subcutaneous -Post Debridement Size (cm) - Length 1.0 1.2 1.1 -Post Debridement Size (cm) - Width 1.7 1.5 1.6 -Post Debridement Size (cm) - Depth 0.1 0.1 0.1 -Total Square Cm 1.70 1.80 1.76 -Wound/Ulcer Outcome Not Healed Not Healed Not Healed -Ulcer Cleansing Rinsed/ Rinsed/ Rinsed/ Irrigated with Irrigated with Irrigated with Saline Saline Saline -Foul Odor after Cleansing No No No -Bioengineered Tissue No No Yes -Type of bioengineered Tissue GRAFIX-Core -Expiration Date 10/14/19 -Product Lot Number [id number] -Percent Used 100 -Saline Lot Number [id number] -Bleeding Controlled with Pressure Pressure Pressure -Offloading No No Yes -Type of Offloading Surgical Shoe -Treatment Response Procedure Procedure Tolerated Well Tolerated Well Pain Scale: 0-10 Numeric Is Patient Pain Free? Yes Yes Yes 02/24/19 03/03/19 11:10 11:39 Wound Center Nurse 2 #10 Left heel -Time 11:10 11:44 -Correct Patient Yes Yes -Correct Side, Site, Position Yes Yes -Correct Procedure Yes Yes -Procedure Performed Yes Yes -Type of Procedure Debridement Debridement -Clinical Debridement Subcutaneous Subcutaneous -Post Debridement Size (cm) - Length 0.9 0.7 -Post Debridement Size (cm) - Width 1.2 1.1 -Post Debridement Size (cm) - Depth 0.1 0.1 -Total Square Cm 1.08 0.77 -Wound/Ulcer Outcome Not Healed Not Healed -Ulcer Cleansing Rinsed/ Rinsed/ Irrigated with Irrigated with Saline Saline -Foul Odor after Cleansing No No -Bioengineered Tissue Yes Yes -Type of bioengineered Tissue GRAFIX-Pime GRAFIX-Pime -Expiration Date 10/29/19 10/14/19 -Product Lot Number [id number] -Percent Used 100 100 -Saline Lot Number [id number] -Bleeding Controlled with Pressure Pressure -Offloading No No -Type of Offloading -Treatment Response Procedure Procedure Tolerated Well Tolerated Well Pain Scale: 0-10 Numeric Is Patient Pain Free? Yes Yes Wound debrided: Left heel Wound Grade/Stage: Stage II Type of Debridement: Excisional debridement Anesthesia Used: 4% Lidocaine Solution Depth: Down to and including healthy tissue, in the subcutaneous layer Percentage of wound debrided: 100 Instrument Used: 3mm curette Tissue Removed: Slough and devitalized tissue Severity: Fat Layer Exposed Amount of bleeding with debridement: Mild Bleeding Controlled with: Pressure Patient tolerated procedure well Assessment/Plan Active Problems (Last Reviewed 10/07/18 @ 13:21 by Rose Mary Taylor) Decubitus ulcer of left heel, stage 2 (Chronic) Lower extremity edema (Chronic) Assessment: Same as above. Plan: Improving ulcer. Worsening lower extremity edema. Debridement done as documented above, procedure was well-tolerated. Third application of Grafix done today using 100% of product. Moistened with saline and adaptic touch. Leave on for a week. Offloading again recommended. 3M wrap for edema management. Continue increased protein intake. Optimal blood sugar control. Patient strongly advised to elevate her lower extremities when seated and in bed. Continues to have significant lower extremity edema. She was advised to call with any further questions or concerns. Follow-up in 1 week. This note was generated with [employer] dictation software. It may contain incorrect words, spelling, and punctuation that were not noted in checking the note before signing.
== END 2019-03-06 23:59 ==
LOC: WC 10:45
PROVIDERS: Family Provider Family Medicine Geriatric Medicine; PCP Family Medicine Geriatric Medicine; Visit Provider Internal Medicine
DX: L89.622 Pressure ulcer of left heel, stage 2 (principal); R60.0 Localized edema
CPT/HCPCS: 11042; 15275; Q4132; Q4133

== ENCOUNTER → 2019-03-30 17:02 | Outpatient (CLI) | payer MEDICARE, OTHER, SELFPAY ==
[2019-03-25 10:43] VITALS: BMI 32.5
== END ==
PROVIDERS: Family Provider Family Medicine Geriatric Medicine; PCP Family Medicine Geriatric Medicine; Referring Provider Urology; Visit Provider Urology
DX: R82.998 Other abnormal findings in urine (principal)
CPT/HCPCS: 87077; 87086; 87088; 87186

== ENCOUNTER → 2019-03-31 14:30 | Outpatient (CLI) | payer MEDICARE, OTHER, SELFPAY ==
[2019-03-25 10:43] VITALS: BMI 32.5
[2019-03-31 15:43] LABS: Absolute Lymphocyte Count 1.25 X10^3/uL (0.83-4.51); Absolute Neutrophil Count 3.7 X10^3/uL (2.0-7.7); Basophil# 0.04 X10^3/uL; Basophil% 0.7 % (0-1); Eosinophil# 0.08 X10^3/uL; Eosinophils% 1.4 % (0-5); Hematocrit 46.4 % (37-47); Hemoglobin 14.2 g/dL (12.0-15.0); Lymphocyte # 1.25 X10^3/ul (4.0); Lymphocyte % 22.4 % (19-41); Mean Corp Hgb Conc 30.6 g/dL (32-36); Mean Corpuscular Volume 88.2 fL (81-99); Mean Platelet Vol. 12.1 fl (6.2-12.0); Monocyte# 0.49 X10^3/uL; Monocyte% 8.8 % (0-10); NRBC Flagged by Analyzer 0 % (0-5); Neutrophil # 3.69 X10^3/uL (2.7-7.7); Platelet Count 154 K/mm3 (150-450); RBC Distribution Width CV 17.2 % (11.6-14.6); Red Blood Count 5.26 M/mm3 (4.2-5.4); White Blood Count 5.6 K/mm3 (4.4-11.0)
[2019-03-31 16:08] LABS: ALB/GLOB Ratio 0.9 RATIO (0.9-2.4); AST(SGOT) 46 U/L (15-37); Alanine Aminotransfer ALT/SGPT 81 U/L (13-56); Albumin, Serum 2.8 g/dL (3.2-5.0); Alkaline Phosphatase 148 U/L (45-117); Anion Gap 7 (5-15); BUN 15 mg/dL (7-18); BUN/Creat Ratio 22.8 RATIO (10-20); Calcium,Total 8.1 mg/dL (8.5-10.1); Chloride 107 mmol/L (98-107); Creatinine, Serum 0.66 mg/dL (0.55-1.02); EST Glomerular Filtration Rate 94 mL/min (>60); Est Glom Filt Rate - Afr Amer 114 mL/min (>60); Glucose 175 mg/dL (74-106); Protein, Total 5.8 g/dL (6.4-8.2); Sodium Level 145 mmol/L (136-145); Thyroid Stim Hormone (TSH) 1.19 uIU/mL (0.358-3.74); Vitamin D,25 Hydroxy 33.1 ng/mL (29.95-100.01)
== END ==
PROVIDERS: Family Provider Family Medicine Geriatric Medicine; PCP Family Medicine Geriatric Medicine; Visit Provider Family Medicine Geriatric Medicine
DX: E11.9 Type 2 diabetes mellitus without complications (principal); I10 Essential (primary) hypertension; E55.9 Vitamin D deficiency, unspecified
CPT/HCPCS: 36415; 80053; 82306; 84443; 85025

== ENCOUNTER 2019-04-01 10:00 | Outpatient (RCR) | payer MEDICARE, OTHER, SELFPAY ==
[2019-03-07 01:01] VITALS: BP 152/90; PULSE 68; RESP 18; TEMP 36.6
[2019-03-11 12:56] VITALS: BP 170/78; PULSE 65; RESP 16; TEMP 36.3; BMI 32.5
--- NOTE | 2019-03-11 13:44 | PCM.WC.PN ---
(1) Decubitus ulcer of left heel, stage 2 Status: Chronic Current Visit: Yes Code(s): L89.622 - Pressure ulcer of left heel, stage 2 (2) Lower extremity edema Status: Chronic Current Visit: Yes Code(s): R60.0 - Localized edema (3) Type 2 diabetes mellitus Status: Chronic Current Visit: Yes Code(s): E11.9 - Type 2 diabetes mellitus without complications Type of Wound Date of Service: 03/11/19 Chief Complaint: Left heel ulcer History of Wound: Ms. Hendrix is a 68-year-old with past medical history as documented who was last seen here by me in September for bilateral lower extremity ulcers and sacral ulcer. She was subsequently managed at a nursing facility after hospital stay for unrelated conditions. Post correction discharge, ulcers was said to have been managed by home health nurse. A week after discharge by home health nurse with ulcer states as healed, she noted a reopening. She states that she has been managed by her primary care physician and has applied calcium alginate. She also states that she had work-up done which was negative for osteomyelitis. She sleeps with an offloading boot but does not offload as much during the day. She denies chills, fever otherwise feeling of unwell. Progress of Wound: Improving. Has had 3 applications of Grafix. - Physical Exam Vital Signs Temp Pulse Resp BP 97.3 F L 65 16 170/78 H 03/11/19 12:56 03/11/19 12:56 03/11/19 12:56 03/11/19 12:56 General: Alert, Oriented x3, Cooperative, No apparent distress HEENT: Atraumatic, Normocephalic Oral: Moist Mucosa Neck: Supple Lungs: Normal air movement Abdomen: Non Tender, Obese Extremities: No cyanosis, Edema Skin: Ulcer/ Wound Wound Measurements and Assessment WC - Nurse 1 - General Ulcer Measurement Start: 03/11/19 12:56 Freq: Status: Active Protocol: Activity Type Activity Date Activity User E-Sign Co-Sign Detail Recorded Client Recorded Date Recorded By Document 03/11/19 12:56 [email or web address] [id number] 03/11/19 13:07 BS 03/11/19 12:56 Wound Center Nurse 1 [Ulcer Assessment] #10 Left heel -Current Size (cm) - Length 1.2 -Current Size (cm) - Width 1.2 -Current Size (cm) - Depth 0.1 -Total Square Cm 1.44 -Temperature (Gricel-wound Skin No Abnormality Appearance) (Pt Warm) -Tenderness on Palpation (Gricel-wound No Skin Appearance) -Ulcer Cleansing Rinsed/ Irrigated with Saline -Foul Odor after Cleansing No -Anesthetic Used 5% Lidocaine Gel WC - Nurse 2 - General Ulcer CM Notes Start: 03/11/19 12:56 Freq: Status: Active Protocol: Activity Type Activity Date Activity User E-Sign Co-Sign Detail Recorded Client Recorded Date Recorded By Document 03/11/19 13:14 MW [id number] 03/11/19 13:21 MW 03/11/19 13:14 Wound Center Nurse 2 [Procedure/Treatment] -Time 13:20 -Correct Patient Yes -Correct Side, Site, Position Yes -Correct Procedure Yes -Procedure Performed Yes -Type of Procedure Debridement -Clinical Debridement Subcutaneous -Post Debridement Size (cm) - Length 0.5 -Post Debridement Size (cm) - Width 0.8 -Post Debridement Size (cm) - Depth 0.1 -Total Square Cm 0.40 -Wound/Ulcer Outcome Not Healed -Ulcer Cleansing Rinsed/ Irrigated with Saline -Foul Odor after Cleansing No -Bioengineered Tissue Yes -Type of bioengineered Tissue GRAFIX-Pime -Expiration Date 11/23/19 -Product Lot Number [id number] -Percent Used 100 -Saline Lot Number [id number] -Bleeding Controlled with Pressure -Offloading No -Treatment Response Procedure Tolerated Well [See Physician Procedure note for Specifics] Pain Scale: 0-10 Numeric [Pain] -Is Patient Pain Free? Yes Musculoskeletal: No Muscle Wasting Neurological: Cranial nerves II-XII grossly intact Psych/Mental Status: Normal Affect Debridement Note Post-Debridement Measurements/Treatment WC - Nurse 2 - General Ulcer CM Notes Start: 03/11/19 12:56 Freq: Status: Active Protocol: Activity Type Activity Date Activity User E-Sign Co-Sign Detail Recorded Client Recorded Date Recorded By Document 03/11/19 13:14 MW [id number] 03/11/19 13:21 MW 03/11/19 13:14 Wound Center Nurse 2 #10 Left heel -Time 13:20 -Correct Patient Yes -Correct Side, Site, Position Yes -Correct Procedure Yes -Procedure Performed Yes -Type of Procedure Debridement -Clinical Debridement Subcutaneous -Post Debridement Size (cm) - Length 0.5 -Post Debridement Size (cm) - Width 0.8 -Post Debridement Size (cm) - Depth 0.1 -Total Square Cm 0.40 -Wound/Ulcer Outcome Not Healed -Ulcer Cleansing Rinsed/ Irrigated with Saline -Foul Odor after Cleansing No -Bioengineered Tissue Yes -Type of bioengineered Tissue GRAFIX-Pime -Expiration Date 11/23/19 -Product Lot Number [id number] -Percent Used 100 -Saline Lot Number [id number] -Bleeding Controlled with Pressure -Offloading No -Treatment Response Procedure Tolerated Well Pain Scale: 0-10 Numeric Is Patient Pain Free? Yes Wound debrided: Left Heel. Wound Grade/Stage: Stage II Type of Debridement: Excisional debridement Anesthesia Used: 4% Lidocaine Solution Depth: Down to and including healthy tissue, in the subcutaneous layer Percentage of wound debrided: 100 Instrument Used: 3mm curette Tissue Removed: Slough and devitalized tissue Severity: Fat Layer Exposed Amount of bleeding with debridement: Mild Bleeding Controlled with: Pressure Patient tolerated procedure well Assessment/Plan Active Problems (Last Reviewed 10/07/18 @ 13:21 by Rose Mary Taylor) Type 2 diabetes mellitus (Chronic) Decubitus ulcer of left heel, stage 2 (Chronic) Lower extremity edema (Chronic) Assessment: Same as above. Plan: Improving ulcer. Debridement done as documented above, procedure was well-tolerated. 4th application of Grafix done today using 100% of product. Moistened with saline and adaptic touch. Leave on for a week. Offloading again recommended. Patient does not want 3M wraps due to worsening itch. Circaids for edema management. Continue increased protein intake. Optimal blood sugar control. Patient strongly advised to elevate her lower extremities when seated and in bed. Continues to have significant lower extremity edema. She was advised to call with any further questions or concerns. Follow-up in 1 week. This note was generated with [employer] software. It may contain incorrect words, spelling, and punctuation that were not noted in checking the note before signing.
[2019-03-18 10:30] VITALS: BP 167/83; PULSE 64; RESP 18; TEMP 36.6; BMI 32.5
--- NOTE | 2019-03-18 11:33 | PN.PCM_ITS ---
(1) Decubitus ulcer of left heel, stage 2 Status: Chronic Current Visit: Yes Code(s): L89.622 - Pressure ulcer of left heel, stage 2 (2) Lower extremity edema Status: Chronic Current Visit: Yes Code(s): R60.0 - Localized edema (3) Type 2 diabetes mellitus Status: Chronic Current Visit: Yes Code(s): E11.9 - Type 2 diabetes mellitus without complications Type of Wound Date of Service: 03/18/19 Chief Complaint: Left heel ulcer History of Wound: Ms. Hendrix is a 68-year-old with past medical history as documented who was last seen here by me in September for bilateral lower extremity ulcers and sacral ulcer. She was subsequently managed at a nursing facility after hospital stay for unrelated conditions. Post correction discharge, ulcers was said to have been managed by home health nurse. A week after dis charge by home health nurse with ulcer states as healed, she noted a reopening. She states that she has been managed by her primary care physician and has applied calcium alginate. She also states that she had work-up done which was negative for osteomyelitis. She sleeps with an offloading boot but does not offload as much during the day. She denies chills, fever otherwise feeling of unwell. Progress of Wound: Improving. Has had 4 applications of Grafix. - Physical Exam Vital Signs Temp Pulse Resp BP 97.9 F 64 18 167/83 H 03/18/19 10:30 03/18/19 10:30 03/18/19 10:30 03/18/19 10:30 General: Alert, Oriented x3, Cooperative, No apparent distress HEENT: Atraumatic Oral: Moist Mucosa Neck: Supple Lungs: Normal air movement Abdomen: Obese Extremities: No cyanosis, Edema Skin: Ulcer/ Wound Wound Measurements and Assessment WC - Nurse 1 - General Ulcer Measurement Start: 03/11/19 12:56 Freq: Status: Active Protocol: Activity Type Activity Date Activity User E-Sign Co-Sign Detail Recorded Client Recorded Date Recorded By Document 03/18/19 10:30 RB [id number] 03/18/19 10:36 RB 03/18/19 10:30 Wound Center Nurse 1 [Ulcer Assessment] #10 Left heel -Combined with other wound No -Current Size (cm) - Length 0.1 -Current Size (cm) - Width 0.1 -Current Size (cm) - Depth 0.1 -Total Square Cm 0.01 -Tunneling No -Undermining/Tunneling No -Circular Undermining No -Exudate Amt Small -Exudate Type Serosanguineous -Wound Margin Flat & Intact -Granulation Amt Medium (34-66%) -Granulation Quality [place] -Slough/Fibrin Yes -Necrosis Amt Small (1-33%) -Necrotic Tissue Type Adherent Slough -Structure Exposed N/A -Texture (Gricel-wound Skin Appearance) Assessed,Callus -Moisture (Gricel-wound Skin Appearance Assessed ) -Color (Gricel-wound Skin Appearance) Assessed -Temperature (Gricel-wound Skin No Abnormality Appearance) (Pt Warm) -Tenderness on Palpation (Gricel-wound No Skin Appearance) -Ulcer Cleansing Wound Cleanser -Foul Odor after Cleansing No -Anesthetic Used 5% Lidocaine Gel [Edema Assessment] -Lower Limb Edema Present Yes -Left Calf (cm) 41 -Left Ankle (cm) 28.1 WC - Nurse 2 - General Ulcer CM Notes Start: 03/11/19 12:56 Freq: Status: Active Protocol: Activity Type Activity Date Activity User E-Sign Co-Sign Detail Recorded Client Recorded Date Recorded By Document 03/18/19 10:55 MW [id number] 03/18/19 10:56 MW 03/18/19 10:55 Wound Center Nurse 2 [Procedure/Treatment] #10 Left heel -Time 10:55 -Correct Patient Yes -Correct Side, Site, Position Yes -Correct Procedure Yes -Procedure Performed Yes -Type of Procedure Debridement -Clinical Debridement Subcutaneous -Post Debridement Size (cm) - Length 0.3 -Post Debridement Size (cm) - Width 0.6 -Post Debridement Size (cm) - Depth 0.1 -Total Square Cm 0.18 -Wound/Ulcer Outcome Not Healed -Ulcer Cleansing Rinsed/ Irrigated with Saline -Foul Odor after Cleansing No -Bioengineered Tissue Yes -Type of bioengineered Tissue AHMET-Jesus -Expiration Date 11/17/19 -Product Lot Number [id number] -Percent Used 100 -Saline Lot Number [id number] -Bleeding Controlled with Pressure -Offloading No -Treatment Response Procedure Tolerated Well [See Physician Procedure note for Specifics] Pain Scale: 0-10 Numeric [Pain] -Is Patient Pain Free? Yes Musculoskeletal: No Muscle Wasting Neurological: Cranial nerves II-XII grossly intact Psych/Mental Status: Normal Affect Debridement Note Post-Debridement Measurements/Treatment WC - Nurse 2 - General Ulcer CM Notes Start: 03/11/19 12:56 Freq: Status: Active Protocol: Activity Type Activity Date Activity User E-Sign Co-Sign Detail Recorded Client Recorded Date Recorded By Document 03/11/19 13:14 MW [id number] 03/11/19 13:21 MW Document 03/18/19 10:55 MW [id number] 03/18/19 10:56 MW 03/11/19 03/18/19 13:14 10:55 Wound Center Nurse 2 #10 Left heel -Time 13:20 10:55 -Correct Patient Yes Yes -Correct Side, Site, Position Yes Yes -Correct Procedure Yes Yes -Procedure Performed Yes Yes -Type of Procedure Debridement Debridement -Clinical Debridement Subcutaneous Subcutaneous -Post Debridement Size (cm) - Length 0.5 0.3 -Post Debridement Size (cm) - Width 0.8 0.6 -Post Debridement Size (cm) - Depth 0.1 0.1 -Total Square Cm 0.40 0.18 -Wound/Ulcer Outcome Not Healed Not Healed -Ulcer Cleansing Rinsed/ Rinsed/ Irrigated with Irrigated with Saline Saline -Foul Odor after Cleansing No No -Bioengineered Tissue Yes Yes -Type of bioengineered Tissue GRAFIX-Pime GRAFIX-Pime -Expiration Date 11/23/19 11/17/19 -Product Lot Number [id number] -Percent Used 100 100 -Saline Lot Number [id number] -Bleeding Controlled with Pressure Pressure -Offloading No No -Treatment Response Procedure Procedure Tolerated Well Tolerated Well Pain Scale: 0-10 Numeric Is Patient Pain Free? Yes Yes Wound debrided: Left heel Wound Grade/Stage: Stage II Type of Debridement: Excisional debridement Anesthesia Used: 4% Lidocaine Solution Depth: Down to and including healthy tissue, in the subcutaneous layer Percentage of wound debrided: 100 Instrument Used: 3mm curette Tissue Removed: slough and devitalized tissue Severity: Fat Layer Exposed Amount of bleeding with debridement: Mild Bleeding Controlled with: Pressure Patient tolerated procedure well Assessment/Plan Active Problems (Last Reviewed 10/07/18 @ 13:21 by Rose Mary Taylor) Type 2 diabetes mellitus (Chronic) Decubitus ulcer of left heel, stage 2 (Chronic) Lower extremity edema (Chronic) Assessment: Same as above. Plan: Improving ulcer. Debridement done as documented above, procedure was well-tolerated. 5th application of Grafix done today using 100% of product. Moistened with saline and adaptic touch. Leave on for a week. Offloading again recommended. Continue Circaids for edema management. Continue increased protein intake. Optimal blood sugar control. Patient strongly advised to elevate her lower extremities when seated and in bed. She was advised to call with any further questions or concerns. Follow-up in 1 week. This note was generated with [employer] dictation software. It may contain incorrect words, spelling, and punctuation that were not noted in checking the note before signing.
[2019-03-25 10:43] VITALS: BP 155/75; PULSE 73; RESP 16; TEMP 36.6; BMI 32.5
--- NOTE | 2019-03-25 14:57 | PN.PCM_ITS ---
(1) Decubitus ulcer of left heel, stage 2 Status: Chronic Current Visit: Yes Code(s): L89.622 - Pressure ulcer of left heel, stage 2 (2) Lower extremity edema Status: Chronic Current Visit: Yes Code(s): R60.0 - Localized edema (3) Type 2 diabetes mellitus Status: Chronic Current Visit: Yes Code(s): E11.9 - Type 2 diabetes mellitus without complications Type of Wound Date of Service: 03/25/19 Chief Complaint: Left heel ulcer History of Wound: Ms. Hendrix is a 68-year-old with past medical history as documented who was last seen here by me in September for bilateral lower extremity ulcers and sacral ulcer. She was subsequently managed at a nursing facility after hospital stay for unrelated conditions. Post alf discharge, ulcers was said to have been managed by home health nurse. A week after dis charge by home health nurse with ulcer states as healed, she noted a reopening. She states that she has been managed by her primary care physician and has applied calcium alginate. She also states that she had work-up done which was negative for osteomyelitis. She sleeps with an offloading boot but does not offload as much during the day. She denies chills, fever otherwise feeling of unwell. Progress of Wound: Improving. Has had 5 applications of Grafix. - Physical Exam Vital Signs Temp Pulse Resp BP 97.8 F 73 16 155/75 H 03/25/19 10:43 03/25/19 10:43 03/25/19 10:43 03/25/19 10:43 General: Alert, Oriented x3, Cooperative, No apparent distress HEENT: Atraumatic, Normocephalic Oral: Moist Mucosa Neck: Supple Lungs: Normal air movement Abdomen: Non Tender, Obese Extremities: No cyanosis Skin: Ulcer/ Wound Wound Measurements and Assessment WC - Nurse 1 - General Ulcer Measurement Start: 03/11/19 12:56 Freq: Status: Active Protocol: Activity Type Activity Date Activity User E-Sign Co-Sign Detail Recorded Client Recorded Date Recorded By Document 03/25/19 10:43 [facility] [id number] 03/25/19 10:51 [facility] 03/25/19 10:43 Wound Center Nurse 1 [Ulcer Assessment] #10 Left heel -Combined with other wound No -Current Size (cm) - Length 0.1 -Current Size (cm) - Width 0.1 -Current Size (cm) - Depth 0.1 -Total Square Cm 0.01 -Photo Taken No -Epithelialization Large 67-100% -Tunneling No -Undermining/Tunneling No -Circular Undermining No -Exudate Amt None Present -Wound Margin Distinct, Outline Attached -Granulation Amt Small (1-33%) -Granulation Quality Red -Slough/Fibrin Yes -Necrosis Amt Small (1-33%) -Necrotic Tissue Type Adherent Slough -Texture (Gricel-wound Skin Appearance) Callus,Scarring -Moisture (Gricel-wound Skin Appearance Assessed,Dry/ ) Scaly -Color (Gricel-wound Skin Appearance) Assessed -Temperature (Gricel-wound Skin No Abnormality Appearance) (Pt Warm) -Tenderness on Palpation (Gricel-wound No Skin Appearance) -Ulcer Cleansing Rinsed/ Irrigated with Saline -Foul Odor after Cleansing No -Anesthetic Used 5% Lidocaine Gel [Edema Assessment] -Lower Limb Edema Present Yes -Left Calf (cm) 45.5 -Left Ankle (cm) 28.5 WC - Nurse 2 - General Ulcer CM Notes Start: 03/11/19 12:56 Freq: Status: Active Protocol: Activity Type Activity Date Activity User E-Sign Co-Sign Detail Recorded Client Recorded Date Recorded By Document 03/25/19 11:29 MW [id number] 03/25/19 11:30 MW 03/25/19 11:29 Wound Center Nurse 2 [Procedure/Treatment] #10 Left heel -Time 11:29 -Correct Patient Yes -Correct Side, Site, Position Yes -Correct Procedure Yes -Procedure Performed Yes -Type of Procedure Debridement -Clinical Debridement Subcutaneous -Post Debridement Size (cm) - Length 0.2 -Post Debridement Size (cm) - Width 0.3 -Post Debridement Size (cm) - Depth 0.1 -Total Square Cm 0.06 -Wound/Ulcer Outcome Healed- Surgical Closure -Foul Odor after Cleansing No -Bioengineered Tissue Yes -Type of bioengineered Tissue GRAFIX-Pime -Expiration Date 11/27/19 -Product Lot Number [id number] -Percent Used 100 -Saline Lot Number [id number] -Bleeding Controlled with Pressure -Offloading No -Treatment Response Procedure Tolerated Well [See Physician Procedure note for Specifics] Pain Scale: 0-10 Numeric [Pain] -Is Patient Pain Free? Yes Musculoskeletal: No Muscle Wasting Neurological: Cranial nerves II-XII grossly intact Psych/Mental Status: Normal Affect Debridement Note Post-Debridement Measurements/Treatment WC - Nurse 2 - General Ulcer CM Notes Start: 03/11/19 12:56 Freq: Status: Active Protocol: Activity Type Activity Date Activity User E-Sign Co-Sign Detail Recorded Client Recorded Date Recorded By Document 03/11/19 13:14 MW [id number] 03/11/19 13:21 MW Document 03/18/19 10:55 MW [id number] 03/18/19 10:56 MW Document 03/25/19 11:29 MW [id number] 03/25/19 11:30 MW 03/11/19 03/18/19 03/25/19 13:14 10:55 11:29 Wound Center Nurse 2 #10 Left heel -Time 13:20 10:55 11:29 -Correct Patient Yes Yes Yes -Correct Side, Site, Position Yes Yes Yes -Correct Procedure Yes Yes Yes -Procedure Performed Yes Yes Yes -Type of Procedure Debridement Debridement Debridement -Clinical Debridement Subcutaneous Subcutaneous Subcutaneous -Post Debridement Size (cm) - Length 0.5 0.3 0.2 -Post Debridement Size (cm) - Width 0.8 0.6 0.3 -Post Debridement Size (cm) - Depth 0.1 0.1 0.1 -Total Square Cm 0.40 0.18 0.06 -Wound/Ulcer Outcome Not Healed Not Healed Healed- Surgical Closure -Ulcer Cleansing Rinsed/ Rinsed/ Irrigated with Irrigated with Saline Saline -Foul Odor after Cleansing No No No -Bioengineered Tissue Yes Yes Yes -Type of bioengineered Tissue GRAFIX-Pime GRAFIX-Pime GRAFIX-Pime -Expiration Date 11/23/19 11/17/19 11/27/19 -Product Lot Number [id number] -Percent Used 100 100 100 -Saline Lot Number [id number] -Bleeding Controlled with Pressure Pressure Pressure -Offloading No No No -Treatment Response Procedure Procedure Procedure Tolerated Well Tolerated Well Tolerated Well Pain Scale: 0-10 Numeric Is Patient Pain Free? Yes Yes Yes Wound debrided: Left heel Type of Debridement: Excisional debridement Anesthesia Used: 4% Lidocaine Solution Depth: Down to and including healthy tissue, in the subcutaneous layer Percentage of wound debrided: 100 Tissue Removed: Slough and devitalized tissue Severity: Fat Layer Exposed Amount of bleeding with debridement: Mild Bleeding Controlled with: Pressure Patient tolerated procedure well Assessment/Plan Active Problems (Last Reviewed 10/07/18 @ 13:21 by Rose Mary Taylor) Type 2 diabetes mellitus (Chronic) Decubitus ulcer of left heel, stage 2 (Chronic) Lower extremity edema (Chronic) Assessment: Same as above. Plan: Improving ulcer. Debridement done as documented above, procedure was well-tolerated. 6th application of Grafix done today using 100% of product. Moistened with saline and adaptic touch. Leave on for a week. Offloading again recommended. Continue Circaids for edema management. Continue increased protein intake. Optimal blood sugar control. Patient strongly advised to elevate her lower extremities when seated and in bed. She was advised to call with any further questions or concerns. Follow-up in 1 week. This note was generated with [employer] dictation software. It may contain incorrect words, spelling, and punctuation that were not noted in checking the note before signing.
[2019-04-01 11:32] VITALS: BP 142/74; PULSE 65; RESP 16; TEMP 36.6; BMI 32.5
--- NOTE | 2019-04-01 12:10 | PCM.WC.PN ---
(1) Decubitus ulcer of left heel, stage 2 Status: Chronic Current Visit: Yes Code(s): L89.622 - Pressure ulcer of left heel, stage 2 (2) Lower extremity edema Status: Chronic Current Visit: Yes Code(s): R60.0 - Localized edema (3) Type 2 diabetes mellitus Status: Chronic Current Visit: Yes Code(s): E11.9 - Type 2 diabetes mellitus without complications Type of Wound Date of Service: 04/01/19 Chief Complaint: Left heel ulcer History of Wound: Ms. Hendrix is a 68-year-old with past medical history as documented who was last seen here by me in September for bilateral lower extremity ulcers and sacral ulcer. She was subsequently managed at a nursing facility after hospital stay for unrelated conditions. Post long term discharge, ulcers was said to have been managed by home health nurse. A week after discharge by home health nurse with ulcer states as healed, she noted a reopening. She states that she has been managed by her primary care physician and has applied calcium alginate. She also states that she had work-up done which was negative for osteomyelitis. She sleeps with an offloading boot but does not offload as much during the day. She denies chills, fever otherwise feeling of unwell. Progress of Wound: Worsened ulcer. Clotted blood around the ulcer. She denies worsening pain or drainage. Has had 6 applications of Grafix. - Physical Exam Vital Signs Temp Pulse Resp BP 97.8 F 65 16 142/74 H 04/01/19 11:32 04/01/19 11:32 04/01/19 11:32 04/01/19 11:32 General: Alert, Oriented x3, Cooperative, No apparent distress HEENT: Atraumatic, Normocephalic Oral: Moist Mucosa Neck: Supple Lungs: Normal air movement Extremities: No cyanosis Skin: Ulcer/ Wound Wound Measurements and Assessment WC - Nurse 1 - General Ulcer Measurement Start: 03/11/19 12:56 Freq: Status: Active Protocol: Activity Type Activity Date Activity User E-Sign Co-Sign Detail Recorded Client Recorded Date Recorded By Document 04/01/19 11:32 BS [id number] 04/01/19 11:44 BS 04/01/19 11:32 Wound Center Nurse 1 [Ulcer Assessment] #10 Left heel -Combined with other wound No -Current Size (cm) - Length 0.4 -Current Size (cm) - Width 0.5 -Current Size (cm) - Depth 0.1 -Total Square Cm 0.20 -Photo Taken No -Granulation Quality [place] -Texture (Gricel-wound Skin Appearance) Assessed, Localized Edema -Moisture (Gricel-wound Skin Appearance Assessed,Dry/ ) Scaly -Temperature (Gricle-wound Skin No Abnormality Appearance) (Pt Warm) -Tenderness on Palpation (Gricel-wound No Skin Appearance) -Ulcer Cleansing Rinsed/ Irrigated with Saline -Anesthetic Used 5% Lidocaine Gel WC - Nurse 2 - General Ulcer CM Notes Start: 03/11/19 12:56 Freq: Status: Active Protocol: Activity Type Activity Date Activity User E-Sign Co-Sign Detail Recorded Client Recorded Date Recorded By Document 04/01/19 11:54 MW [id number] 04/01/19 12:05 MW 04/01/19 11:54 Wound Center Nurse 2 [Procedure/Treatment] -Time 11:55 -Correct Patient Yes -Correct Side, Site, Position Yes -Correct Procedure Yes -Procedure Performed Yes -Type of Procedure Debridement -Clinical Debridement Subcutaneous -Post Debridement Size (cm) - Length 0.6 -Post Debridement Size (cm) - Width 0.5 -Post Debridement Size (cm) - Depth 0.1 -Total Square Cm 0.30 -Wound/Ulcer Outcome Not Healed -Ulcer Cleansing Rinsed/ Irrigated with Saline -Foul Odor after Cleansing No -Bioengineered Tissue No -Bleeding Controlled with Pressure -Offloading No -Treatment Response Procedure Tolerated Well [See Physician Procedure note for Specifics] Pain Scale: 0-10 Numeric [Pain] -Is Patient Pain Free? Yes Musculoskeletal: No Muscle Wasting Neurological: Cranial nerves II-XII grossly intact Psych/Mental Status: Normal Affect Debridement Note Post-Debridement Measurements/Treatment WC - Nurse 2 - General Ulcer CM Notes Start: 03/11/19 12:56 Freq: Status: Active Protocol: Activity Type Activity Date Activity User E-Sign Co-Sign Detail Recorded Client Recorded Date Recorded By Document 03/11/19 13:14 MW [id number] 03/11/19 13:21 MW Document 03/18/19 10:55 MW [id number] 03/18/19 10:56 MW Document 03/25/19 11:29 MW [id number] 03/25/19 11:30 MW Document 04/01/19 11:54 MW [id number] 04/01/19 12:05 MW 03/11/19 0903/25/19 13:14 10:55 11:29 Wound Center Nurse 2 #10 Left heel -Time 13:20 10:55 11:29 -Correct Patient Yes Yes Yes -Correct Side, Site, Position Yes Yes Yes -Correct Procedure Yes Yes Yes -Procedure Performed Yes Yes Yes -Type of Procedure Debridement Debridement Debridement -Clinical Debridement Subcutaneous Subcutaneous Subcutaneous -Post Debridement Size (cm) - Length 0.5 0.3 0.2 -Post Debridement Size (cm) - Width 0.8 0.6 0.3 -Post Debridement Size (cm) - Depth 0.1 0.1 0.1 -Total Square Cm 0.40 0.18 0.06 -Wound/Ulcer Outcome Not Healed Not Healed Healed- Surgical Closure -Ulcer Cleansing Rinsed/ Rinsed/ Irrigated with Irrigated with Saline Saline -Foul Odor after Cleansing No No No -Bioengineered Tissue Yes Yes Yes -Type of bioengineered Tissue GRAFIX-Pime GRAFIX-Pime GRAFIX-Pime -Expiration Date 11/23/19 11/17/19 11/27/19 -Product Lot Number [id number] -Percent Used 100 100 100 -Saline Lot Number [id number] -Bleeding Controlled with Pressure Pressure Pressure -Offloading No No No -Treatment Response Procedure Procedure Procedure Tolerated Well Tolerated Well Tolerated Well Pain Scale: 0-10 Numeric Is Patient Pain Free? Yes Yes Yes 04/01/19 11:54 Wound Center Nurse 2 #10 Left heel -Time 11:55 -Correct Patient Yes -Correct Side, Site, Position Yes -Correct Procedure Yes -Procedure Performed Yes -Type of Procedure Debridement -Clinical Debridement Subcutaneous -Post Debridement Size (cm) - Length 0.6 -Post Debridement Size (cm) - Width 0.5 -Post Debridement Size (cm) - Depth 0.1 -Total Square Cm 0.30 -Wound/Ulcer Outcome Not Healed -Ulcer Cleansing Rinsed/ Irrigated with Saline -Foul Odor after Cleansing No -Bioengineered Tissue No -Type of bioengineered Tissue -Expiration Date -Product Lot Number -Percent Used -Saline Lot Number -Bleeding Controlled with Pressure -Offloading No -Treatment Response Procedure Tolerated Well Pain Scale: 0-10 Numeric Is Patient Pain Free? Yes Wound debrided: Left heel Wound Grade/Stage: Stage III Type of Debridement: Excisional debridement Anesthesia Used: 4% Lidocaine Solution Depth: Down to and including healthy tissue, in the subcutaneous layer Percentage of wound debrided: 100 Instrument Used: 3mm curette Tissue Removed: Slough and devitalized tissue Severity: Fat Layer Exposed Amount of bleeding with debridement: Mild Bleeding Controlled with: Pressure Patient tolerated procedure well Assessment/Plan Active Problems (Last Reviewed 10/07/18 @ 13:21 by Rose Mary Taylor) Type 2 diabetes mellitus (Chronic) Decubitus ulcer of left heel, stage 2 (Chronic) Lower extremity edema (Chronic) Assessment: Same as above. Plan: Worsened ulcer. ??? Increase pressure due to blood noted. No concern for infection however, culture taken. Debridement done as documented above, procedure was well-tolerated. 7th application of Grafix done today using 100% of product. Moistened with saline and adaptic touch. Leave on for a week. Offloading again recommended. Continue Circaids for edema management. Continue increased protein intake. Optimal blood sugar control. Patient strongly advised to elevate her lower extremities when seated and in bed. She was advised to call with any further questions or concerns. Follow-up in 1 week. This note was generated with [employer] dictation software. It may contain incorrect words, spelling, and punctuation that were not noted in checking the note before signing.
== END 2019-04-05 23:59 ==
LOC: WC 10:00
PROVIDERS: Family Provider Family Medicine Geriatric Medicine; PCP Family Medicine Geriatric Medicine; Referring Provider Internal Medicine; Visit Provider Internal Medicine
DX: L89.622 Pressure ulcer of left heel, stage 2 (principal); E11.621 Type 2 diabetes mellitus with foot ulcer; R60.0 Localized edema
CPT/HCPCS: 15275; 87070; 87075; 87077; 87186; 87205; Q4132; Q4133

== ENCOUNTER 2019-05-06 12:30 | Outpatient (RCR) | payer MEDICARE, OTHER, SELFPAY ==
[2019-04-06 00:54] VITALS: BP 142/74; PULSE 65; RESP 16; TEMP 36.6
[2019-04-08 10:26] VITALS: BP 146/78; PULSE 74; RESP 16; TEMP 37.2; BMI 32.5
--- NOTE | 2019-04-08 11:52 | PN.PCM_ITS ---
(1) Decubitus ulcer of left heel, stage 3 Status: Chronic Current Visit: Yes Code(s): L89.623 - Pressure ulcer of left heel, stage 3 (2) Lower extremity edema Status: Chronic Current Visit: Yes Code(s): R60.0 - Localized edema (3) PVD (peripheral vascular disease) Status: Chronic Current Visit: Yes Code(s): I73.9 - Peripheral vascular disease, unspecified (4) Type 2 diabetes mellitus Status: Chronic Current Visit: Yes Code(s): E11.9 - Type 2 diabetes mellitus without complications Type of Wound Date of Service: 04/08/19 Chief Complaint: Left heel ulcer History of Wound: Ms. Hendrix is a 68-year-old with past medical history as documented who was last seen here by me in September for bilateral lower extremity ulcers and sacral ulcer. She was subsequently managed at a nursing facility after hospital stay for unrelated conditions. Post retirement discharge, ulcers was said to have been managed by home health nurse. A week after discharge by home health nurse with ulcer states as healed, she noted a reopening. She states that she has been managed by her primary care physician and has applied calcium alginate. She also states that she had work-up done which was negative for osteomyelitis. She sleeps with an offloading boot but does not offload as much during the day. She denies chills, fever otherwise feeling of unwell. Progress of Wound: Further worsening noted today. No increase drainage or foul smell. Patient admits that she has put a lot of pressure to the area. Feels well otherwise. - Physical Exam Vital Signs Temp Pulse Resp BP 98.9 F 74 16 146/78 H 04/08/19 10:26 04/08/19 10:26 04/08/19 10:26 04/08/19 10:26 General: Alert, Oriented x3, Cooperative, No apparent distress HEENT: Atraumatic, Normocephalic Oral: Moist Mucosa Neck: Supple Lungs: Normal air movement Extremities: No cyanosis, Edema Skin: Ulcer/ Wound Wound Measurements and Assessment WC - Nurse 1 - General Ulcer Measurement Start: 04/08/19 10:26 Freq: Status: Active Protocol: Activity Type Activity Date Activity User E-Sign Co-Sign Detail Recorded Client Recorded Date Recorded By Document 04/08/19 10:26 [facility] [id number] 04/08/19 10:33 BMF 04/08/19 10:26 Wound Center Nurse 1 [Ulcer Assessment] #10 Left heel -Combined with other wound No -Current Size (cm) - Length 1.4 -Current Size (cm) - Width 2.3 -Current Size (cm) - Depth 0.2 -Total Square Cm 3.22 -Photo Taken No -Epithelialization None Present -Tunneling No -Undermining/Tunneling No -Circular Undermining No -Exudate Amt Small -Exudate Type Serous -Wound Margin Distinct, Outline Attached -Granulation Amt Small (1-33%) -Granulation Quality Pale,Red -Slough/Fibrin Yes -Necrosis Amt Large (67-100%) -Necrotic Tissue Type Adherent Slough -Texture (Gricel-wound Skin Appearance) Assessed, Scarring -Moisture (Gricel-wound Skin Appearance Assessed, ) Maceration -Color (Gricel-wound Skin Appearance) Assessed,Palor -Temperature (Gricel-wound Skin No Abnormality Appearance) (Pt Warm) -Tenderness on Palpation (Gricel-wound No Skin Appearance) -Ulcer Cleansing soap and water -Foul Odor after Cleansing No -Anesthetic Used 5% Lidocaine Gel [Edema Assessment] -Lower Limb Edema Present Yes -Left Calf (cm) 44.4 -Left Ankle (cm) 28.5 WC - Nurse 2 - General Ulcer CM Notes Start: 04/08/19 10:26 Freq: Status: Active Protocol: Activity Type Activity Date Activity User E-Sign Co-Sign Detail Recorded Client Recorded Date Recorded By Document 04/08/19 10:57 MW [id number] 04/08/19 11:02 MW 04/08/19 10:57 Wound Center Nurse 2 [Procedure/Treatment] #10 Left heel -Time 10:58 -Correct Patient Yes -Correct Side, Site, Position Yes -Correct Procedure Yes -Procedure Performed Yes -Type of Procedure Debridement -Clinical Debridement Subcutaneous -Post Debridement Size (cm) - Length 1.5 -Post Debridement Size (cm) - Width 2.5 -Post Debridement Size (cm) - Depth 0.1 -Total Square Cm 3.75 -Wound/Ulcer Outcome Not Healed -Ulcer Cleansing Rinsed/ Irrigated with Saline -Foul Odor after Cleansing No -Bioengineered Tissue No -Bleeding Controlled with Pressure -Offloading No -Treatment Response Procedure Tolerated Well [See Physician Procedure note for Specifics] Pain Scale: 0-10 Numeric [Pain] -Is Patient Pain Free? Yes Musculoskeletal: No Muscle Wasting Neurological: Cranial nerves II-XII grossly intact Psych/Mental Status: Normal Affect Debridement Note Post-Debridement Measurements/Treatment WC - Nurse 2 - General Ulcer CM Notes Start: 04/08/19 10:26 Freq: Status: Active Protocol: Activity Type Activity Date Activity User E-Sign Co-Sign Detail Recorded Client Recorded Date Recorded By Document 04/08/19 10:57 MW [id number] 04/08/19 11:02 MW 04/08/19 10:57 Wound Center Nurse 2 #10 Left heel -Time 10:58 -Correct Patient Yes -Correct Side, Site, Position Yes -Correct Procedure Yes -Procedure Performed Yes -Type of Procedure Debridement -Clinical Debridement Subcutaneous -Post Debridement Size (cm) - Length 1.5 -Post Debridement Size (cm) - Width 2.5 -Post Debridement Size (cm) - Depth 0.1 -Total Square Cm 3.75 -Wound/Ulcer Outcome Not Healed -Ulcer Cleansing Rinsed/ Irrigated with Saline -Foul Odor after Cleansing No -Bioengineered Tissue No -Bleeding Controlled with Pressure -Offloading No -Treatment Response Procedure Tolerated Well Pain Scale: 0-10 Numeric Is Patient Pain Free? Yes Wound debrided: Left heel Wound Grade/Stage: Stage 3 Type of Debridement: Excisional debridement Anesthesia Used: 4% Lidocaine Solution Depth: Down to and including healthy tissue, in the subcutaneous layer Percentage of wound debrided: 100 Instrument Used: 3mm curette, #15 blade, Forceps Tissue Removed: Slough and devitalized tissue Severity: Fat Layer Exposed Amount of bleeding with debridement: Mild Bleeding Controlled with: Pressure Patient tolerated procedure well Assessment/Plan Active Problems (Last Reviewed 10/07/18 @ 13:21 by Rose Mary Taylor) Decubitus ulcer of left heel, stage 3 (Chronic) Type 2 diabetes mellitus (Chronic) PVD (peripheral vascular disease) (Chronic) Lower extremity edema (Chronic) Assessment: Same as above. Plan: Further worsening noted today. Patient admits that she has applied a lot of pressure to the area. Debridement done as documented above, procedure was well-tolerated. Hold off Grafix done today. Switch to Katarina daily with OptiForm over top. Offloading again very strongly recommended. Continue Circaids for edema management. Cultures reviewed, already on levofloxacin by her urologist. Continue increased protein intake. Optimal blood sugar control. Patient strongly advised to elevate her lower extremities when seated and in bed. She was advised to call with any further questions or concerns. Follow-up in 1 week. This note was generated with [employer] dictation software. It may contain incorrect words, spelling, and punctuation that were not noted in checking the note before signing.
[2019-04-15 11:33] VITALS: BP 159/84; PULSE 70; RESP 20; TEMP 35.8; BMI 32.5
--- NOTE | 2019-04-15 17:00 | PCM.WC.PN ---
(1) Decubitus ulcer of left heel, stage 3 Status: Chronic Current Visit: Yes Code(s): L89.623 - Pressure ulcer of left heel, stage 3 (2) Lower extremity edema Status: Chronic Current Visit: Yes Code(s): R60.0 - Localized edema (3) PVD (peripheral vascular disease) Status: Chronic Current Visit: Yes Code(s): I73.9 - Peripheral vascular disease, unspecified (4) Type 2 diabetes mellitus Status: Chronic Current Visit: Yes Code(s): E11.9 - Type 2 diabetes mellitus without complications Type of Wound Date of Service: 04/15/19 Chief Complaint: Left heel ulcer History of Wound: Ms. Hendrix is a 68-year-old with past medical history as documented who was last seen here by me in September for bilateral lower extremity ulcers and sacral ulcer. She was subsequently managed at a nursing facility after hospital stay for unrelated conditions. Post halfway discharge, ulcers was said to have been managed by home health nurse. A week after discharge by home health nurse with ulcer states as healed, she noted a reopening. She states that she has been managed by her primary care physician and has applied calcium alginate. She also states that she had work-up done which was negative for osteomyelitis. She sleeps with an offloading boot but does not offload as much during the day. She denies chills, fever otherwise feeling of unwell. Progress of Wound: Improving. No new concerns at this time. - Physical Exam Vital Signs Temp Pulse Resp BP 96.4 F L 70 20 H 159/84 H 04/15/19 11:33 04/15/19 11:33 04/15/19 11:33 04/15/19 11:33 General: Alert, Oriented x3, Cooperative, No apparent distress HEENT: Atraumatic, Normocephalic Oral: Moist Mucosa Neck: Supple Lungs: Normal air movement Abdomen: Non Tender, Obese Extremities: No cyanosis, Edema Skin: Ulcer/ Wound Wound Measurements and Assessment WC - Nurse 1 - General Ulcer Measurement Start: 04/08/19 10:26 Freq: Status: Active Protocol: Activity Type Activity Date Activity User E-Sign Co-Sign Detail Recorded Client Recorded Date Recorded By Document 04/15/19 11:33 DL [id number] 04/15/19 11:42 DL 04/15/19 11:33 Wound Center Nurse 1 [Ulcer Assessment] #10 Left heel -Current Size (cm) - Length 0.8 -Current Size (cm) - Width 1.5 -Current Size (cm) - Depth 0.1 -Total Square Cm 1.20 -Photo Taken No -Exudate Amt Small -Exudate Type Serosanguineous -Wound Margin Thickened -Granulation Quality [place] -Necrosis Amt Small (1-33%) -Necrotic Tissue Type Adherent Slough -Structure Exposed N/A -Texture (Gricel-wound Skin Appearance) Scarring -Moisture (Gricel-wound Skin Appearance Dry/Scaly ) -Color (Gricel-wound Skin Appearance) Hemosiderin Staining -Temperature (Gricel-wound Skin No Abnormality Appearance) (Pt Warm) -Tenderness on Palpation (Gricel-wound No Skin Appearance) -Ulcer Cleansing Rinsed/ Irrigated with Saline -Foul Odor after Cleansing No -Anesthetic Used 5% Lidocaine Gel [Edema Assessment] -Left Calf (cm) 39 -Left Ankle (cm) 26.2 WC - Nurse 2 - General Ulcer CM Notes Start: 04/08/19 10:26 Freq: Status: Active Protocol: Activity Type Activity Date Activity User E-Sign Co-Sign Detail Recorded Client Recorded Date Recorded By Document 04/15/19 11:53 MW [id number] 04/15/19 11:58 MW 04/15/19 11:53 Wound Center Nurse 2 [Procedure/Treatment] #10 Left heel -Time 11:57 -Correct Patient Yes -Correct Side, Site, Position Yes -Correct Procedure Yes -Procedure Performed Yes -Type of Procedure Debridement -Clinical Debridement Subcutaneous -Post Debridement Size (cm) - Length 0.5 -Post Debridement Size (cm) - Width 1.5 -Post Debridement Size (cm) - Depth 0.1 -Total Square Cm 0.75 -Wound/Ulcer Outcome Not Healed -Ulcer Cleansing Rinsed/ Irrigated with Saline -Foul Odor after Cleansing No -Bioengineered Tissue Yes -Type of bioengineered Tissue EUNICEX-Pime -Expiration Date 12/24/19 -Product Lot Number [id number] -Percent Used 100 -Saline Lot Number [id number] -Bleeding Controlled with Pressure -Offloading No -Treatment Response Procedure Tolerated Well [See Physician Procedure note for Specifics] Pain Scale: 0-10 Numeric [Pain] -Is Patient Pain Free? Yes Musculoskeletal: No Muscle Wasting Neurological: Cranial nerves II-XII grossly intact Psych/Mental Status: Normal Affect Debridement Note Post-Debridement Measurements/Treatment WC - Nurse 2 - General Ulcer CM Notes Start: 04/08/19 10:26 Freq: Status: Active Protocol: Activity Type Activity Date Activity User E-Sign Co-Sign Detail Recorded Client Recorded Date Recorded By Document 04/08/19 10:57 MW [id number] 04/08/19 11:02 MW Document 04/15/19 11:53 MW [id number] 04/15/19 11:58 MW 04/08/19 04/15/19 10:57 11:53 Wound Center Nurse 2 #10 Left heel -Time 10:58 11:57 -Correct Patient Yes Yes -Correct Side, Site, Position Yes Yes -Correct Procedure Yes Yes -Procedure Performed Yes Yes -Type of Procedure Debridement Debridement -Clinical Debridement Subcutaneous Subcutaneous -Post Debridement Size (cm) - Length 1.5 0.5 -Post Debridement Size (cm) - Width 2.5 1.5 -Post Debridement Size (cm) - Depth 0.1 0.1 -Total Square Cm 3.75 0.75 -Wound/Ulcer Outcome Not Healed Not Healed -Ulcer Cleansing Rinsed/ Rinsed/ Irrigated with Irrigated with Saline Saline -Foul Odor after Cleansing No No -Bioengineered Tissue No Yes -Type of bioengineered Tissue AHMETAlejandraJesus -Expiration Date 12/24/19 -Product Lot Number [id number] -Percent Used 100 -Saline Lot Number [id number] -Bleeding Controlled with Pressure Pressure -Offloading No No -Treatment Response Procedure Procedure Tolerated Well Tolerated Well Pain Scale: 0-10 Numeric Is Patient Pain Free? Yes Yes Wound debrided: Left heel Wound Grade/Stage: Stage III Type of Debridement: Excisional debridement Anesthesia Used: 4% Lidocaine Solution Depth: Down to and including healthy tissue, in the subcutaneous layer Percentage of wound debrided: 100 Instrument Used: 3mm curette Tissue Removed: Slough and devitalized tissue Severity: Fat Layer Exposed Amount of bleeding with debridement: Mild Bleeding Controlled with: Pressure Patient tolerated procedure well Assessment/Plan Active Problems (Last Reviewed 10/07/18 @ 13:21 by Rose Mary Taylor) Decubitus ulcer of left heel, stage 3 (Chronic) Type 2 diabetes mellitus (Chronic) PVD (peripheral vascular disease) (Chronic) Lower extremity edema (Chronic) Assessment: Same as above. Plan: Improving. Patient states that she offloaded as advised this week. Debridement done as documented above, procedure was well-tolerated. Grafix applied to these 100% of product, moistened with saline with Adaptic touch over top. Leave in place for a week. Offloading again very strongly recommended. Continue Circaids for edema management. Continue increased protein intake. Optimal blood sugar control. Patient strongly advised to elevate her lower extremities when seated and in bed. She was advised to call with any further questions or concerns. Follow-up in 1 week. This note was generated with [employer] dictation software. It may contain incorrect words, spelling, and punctuation that were not noted in checking the note before signing.
[2019-04-23 11:10] VITALS: RESP 18; TEMP 36.6; BMI 32.5
--- NOTE | 2019-04-23 11:59 | PCM.WC.PN ---
(1) Decubitus ulcer of left heel, stage 3 Status: Chronic Current Visit: Yes Code(s): L89.623 - Pressure ulcer of left heel, stage 3 (2) Lower extremity edema Status: Chronic Current Visit: Yes Code(s): R60.0 - Localized edema (3) PVD (peripheral vascular disease) Status: Chronic Current Visit: Yes Code(s): I73.9 - Peripheral vascular disease, unspecified (4) Type 2 diabetes mellitus Status: Chronic Current Visit: Yes Code(s): E11.9 - Type 2 diabetes mellitus without complications Type of Wound Date of Service: 04/23/19 Chief Complaint: Left heel ulcer History of Wound: Ms. Hendrix is a 68-year-old with past medical history as documented who was last seen here by me in September for bilateral lower extremity ulcers and sacral ulcer. She was subsequently managed at a nursing facility after hospital stay for unrelated conditions. Post intermediate discharge, ulcers was said to have been managed by home health nurse. A week after discharge by home health nurse with ulcer states as healed, she noted a reopening. She states that she has been managed by her primary care physician and has applied calcium alginate. She also states that she had work-up done which was negative for osteomyelitis. She sleeps with an offloading boot but does not offload as much during the day. She denies chills, fever otherwise feeling of unwell. Progress of Wound: Improving. No new concerns at this time. Area is scabbed over unable to apply Grafix will pad and protect this week follow-up in 1 week with - Physical Exam Vital Signs Temp Pulse Resp BP 97.8 F 70 18 159/84 H 04/23/19 11:10 04/15/19 11:33 04/23/19 11:10 04/15/19 11:33 General: Oriented x3, Cooperative, Well developed HEENT: Atraumatic, PERRLA Oral: Moist Mucosa Neck: Supple, No JVD Lungs: Clear to auscultation, Normal air movement Cardiovascular: Regular rate, Regular Rhythm, Murmur Abdomen: Bowel Sounds Present, Soft, Non Tender, No Hepato-splenomegaly Extremities: No clubbing, No edema Wound Measurements and Assessment WC - Nurse 1 - General Ulcer Measurement Start: 04/08/19 10:26 Freq: Status: Active Protocol: Activity Type Activity Date Activity User E-Sign Co-Sign Detail Recorded Client Recorded Date Recorded By Document 04/23/19 11:10 [facility] [id number] 04/23/19 11:16 [facility] 04/23/19 11:10 Wound Center Nurse 1 [Ulcer Assessment] #10 Left heel -Combined with other wound No -Current Size (cm) - Length 0.9 -Current Size (cm) - Width 2.5 -Current Size (cm) - Depth 0.1 -Total Square Cm 2.25 -Photo Taken No -Epithelialization None Present -Tunneling No -Undermining/Tunneling No -Circular Undermining No -Exudate Amt Small -Exudate Type Serous -Wound Margin Distinct, Outline Attached -Granulation Amt None Present (0 %) -Slough/Fibrin Yes -Necrosis Amt Large (67-100%) -Necrotic Tissue Type Adherent Slough -Texture (Gricel-wound Skin Appearance) Assessed, Scarring -Moisture (Gricel-wound Skin Appearance Assessed,Dry/ ) Scaly -Color (Gricel-wound Skin Appearance) Assessed -Temperature (Gricel-wound Skin No Abnormality Appearance) (Pt Warm) -Tenderness on Palpation (Gricel-wound No Skin Appearance) -Ulcer Cleansing soap and water -Foul Odor after Cleansing No -Anesthetic Used 5% Lidocaine Gel [Edema Assessment] -Lower Limb Edema Present Yes -Left Calf (cm) 45.5 -Left Ankle (cm) 29.3 WC - Nurse 2 - General Ulcer CM Notes Start: 04/08/19 10:26 Freq: Status: Active Protocol: Activity Type Activity Date Activity User E-Sign Co-Sign Detail Recorded Client Recorded Date Recorded By Document 04/23/19 11:31 [id number] 04/23/19 11:34 MW 04/23/19 11:31 Wound Center Nurse 2 [Procedure/Treatment] #10 Left heel -Time 11:32 -Correct Patient Yes -Correct Side, Site, Position Yes -Correct Procedure Yes -Procedure Performed Yes -Type of Procedure Debridement -Clinical Debridement Subcutaneous -Post Debridement Size (cm) - Length 0.9 -Post Debridement Size (cm) - Width 1.5 -Post Debridement Size (cm) - Depth 0.1 -Total Square Cm 1.35 -Wound/Ulcer Outcome Not Healed -Ulcer Cleansing Rinsed/ Irrigated with Saline -Foul Odor after Cleansing No -Bioengineered Tissue No -Bleeding Controlled with Pressure -Offloading No -Treatment Response Procedure Tolerated Well [See Physician Procedure note for Specifics] Pain Scale: 0-10 Numeric [Pain] -Is Patient Pain Free? Yes Musculoskeletal: No Tenderness to Palpation of Joints or Extremities Lymphatic: No Cervical, Supraclavicular, or Inguinal Adenopathy Neurological: Cranial nerves II-XII grossly intact, Neuro grossly intact Psych/Mental Status: Normal Affect, Appropriate Debridement Note Post-Debridement Measurements/Treatment WC - Nurse 2 - General Ulcer CM Notes Start: 04/08/19 10:26 Freq: Status: Active Protocol: Activity Type Activity Date Activity User E-Sign Co-Sign Detail Recorded Client Recorded Date Recorded By Document 04/08/19 10:57 MW [id number] 04/08/19 11:02 MW Document 04/15/19 11:53 MW [id number] 04/15/19 11:58 MW Document 04/23/19 11:31 MW [id number] 04/23/19 11:34 MW 04/08/19 04/15/19 04/23/19 10:57 11:53 11:31 Wound Center Nurse 2 #10 Left heel -Time 10:58 11:57 11:32 -Correct Patient Yes Yes Yes -Correct Side, Site, Position Yes Yes Yes -Correct Procedure Yes Yes Yes -Procedure Performed Yes Yes Yes -Type of Procedure Debridement Debridement Debridement -Clinical Debridement Subcutaneous Subcutaneous Subcutaneous -Post Debridement Size (cm) - Length 1.5 0.5 0.9 -Post Debridement Size (cm) - Width 2.5 1.5 1.5 -Post Debridement Size (cm) - Depth 0.1 0.1 0.1 -Total Square Cm 3.75 0.75 1.35 -Wound/Ulcer Outcome Not Healed Not Healed Not Healed -Ulcer Cleansing Rinsed/ Rinsed/ Rinsed/ Irrigated with Irrigated with Irrigated with Saline Saline Saline -Foul Odor after Cleansing No No No -Bioengineered Tissue No Yes No -Type of bioengineered Tissue Garcia -Expiration Date 12/24/19 -Product Lot Number [id number] -Percent Used 100 -Saline Lot Number [id number] -Bleeding Controlled with Pressure Pressure Pressure -Offloading No No No -Treatment Response Procedure Procedure Procedure Tolerated Well Tolerated Well Tolerated Well Pain Scale: 0-10 Numeric Is Patient Pain Free? Yes Yes Yes Wound debrided: Left heel Type of Debridement: Excisional debridement Anesthesia Used: 5% Lidocaine Gel Depth: Down to and including healthy tissue Percentage of wound debrided: 100 Instrument Used: 7mm curette Tissue Removed: Devitalized tissue Amount of bleeding with debridement: None Bleeding Controlled with: Pressure Patient tolerated procedure well Assessment/Plan Active Problems (Last Reviewed 10/07/18 @ 13:21 by Rose Mary Taylor) Decubitus ulcer of left heel, stage 3 (Chronic) Type 2 diabetes mellitus (Chronic) PVD (peripheral vascular disease) (Chronic) Lower extremity edema (Chronic) Assessment: Same as above. Plan: Improving. Patient states that she offloaded as advised this week. Debridement done as documented above, procedure was well-tolerated. Cover with gauze and protect x1 week follow-up with regular doctor in 1 week
[2019-04-29 11:30] VITALS: RESP 16; BMI 32.5
--- NOTE | 2019-04-29 12:56 | PN.PCM_ITS ---
(1) Decubitus ulcer of left heel, stage 3 Status: Chronic Current Visit: Yes Code(s): L89.623 - Pressure ulcer of left heel, stage 3 (2) Lower extremity edema Status: Chronic Current Visit: Yes Code(s): R60.0 - Localized edema (3) PVD (peripheral vascular disease) Status: Chronic Current Visit: Yes Code(s): I73.9 - Peripheral vascular disease, unspecified (4) Type 2 diabetes mellitus Status: Chronic Current Visit: Yes Code(s): E11.9 - Type 2 diabetes mellitus without complications Type of Wound Date of Service: 04/29/19 Chief Complaint: Left heel ulcer History of Wound: Ms. Hendrix is a 68-year-old with past medical history as documented who was last seen here by me in September for bilateral lower extremity ulcers and sacral ulcer. She was subsequently managed at a nursing facility after hospital stay for unrelated conditions. Post snf discharge, ulcers was said to have been managed by home health nurse. A week after discharge by home health nurse with ulcer states as healed, she noted a reopening. She states that she has been managed by her primary care physician and has applied calcium alginate. She also states that she had work-up done which was negative for osteomyelitis. She sleeps with an offloading boot but does not offload as much during the day. She denies chills, fever otherwise feeling of unwell. Progress of Wound: Significant scabbing however, area of ulceration noted. No other concerns at this time. - Physical Exam Vital Signs Temp Pulse Resp BP 97.8 F 70 16 159/84 H 04/23/19 11:10 04/15/19 11:33 04/29/19 11:30 04/15/19 11:33 General: Alert, Oriented x3, Cooperative, No apparent distress HEENT: Atraumatic, Normocephalic Oral: Moist Mucosa Neck: Supple Lungs: Normal air movement Abdomen: Non Tender, Obese Extremities: No cyanosis, Edema Skin: Ulcer/ Wound Wound Measurements and Assessment WC - Nurse 1 - General Ulcer Measurement Start: 04/08/19 10:26 Freq: Status: Active Protocol: Activity Type Activity Date Activity User E-Sign Co-Sign Detail Recorded Client Recorded Date Recorded By Document 04/29/19 11:30 [facility] [id number] 04/29/19 11:35 BM[facility] 04/29/19 11:30 Wound Center Nurse 1 [Ulcer Assessment] #10 Left heel -Combined with other wound No -Current Size (cm) - Length 0.1 -Current Size (cm) - Width 0.1 -Current Size (cm) - Depth 0.1 -Total Square Cm 0.01 -Photo Taken No -Tunneling No -Undermining/Tunneling No -Circular Undermining No -Exudate Amt None Present -Granulation Amt None Present (0 %) -Slough/Fibrin Yes -Necrosis Amt Small (1-33%) -Necrotic Tissue Type Adherent Slough -Texture (Gricel-wound Skin Appearance) Assessed,Callus ,Scarring -Moisture (Gricel-wound Skin Appearance Assessed,Dry/ ) Scaly -Color (Gricel-wound Skin Appearance) Assessed -Temperature (Gricel-wound Skin No Abnormality Appearance) (Pt Warm) -Tenderness on Palpation (Gricel-wound No Skin Appearance) -Ulcer Cleansing Rinsed/ Irrigated with Saline -Foul Odor after Cleansing No -Anesthetic Used 5% Lidocaine Gel [Edema Assessment] -Lower Limb Edema Present Yes -Left Calf (cm) 43 -Left Ankle (cm) 28.1 WC - Nurse 2 - General Ulcer CM Notes Start: 04/08/19 10:26 Freq: Status: Active Protocol: Activity Type Activity Date Activity User E-Sign Co-Sign Detail Recorded Client Recorded Date Recorded By Document 04/29/19 11:52 MW [id number] 04/29/19 11:54 MW 04/29/19 11:52 Wound Center Nurse 2 [Procedure/Treatment] #10 Left heel -Time 11:52 -Correct Patient Yes -Correct Side, Site, Position Yes -Correct Procedure Yes -Procedure Performed Yes -Type of Procedure Debridement -Clinical Debridement Subcutaneous -Post Debridement Size (cm) - Length 0.5 -Post Debridement Size (cm) - Width 1.0 -Post Debridement Size (cm) - Depth 0.2 -Total Square Cm 0.50 -Wound/Ulcer Outcome Not Healed -Ulcer Cleansing Rinsed/ Irrigated with Saline -Foul Odor after Cleansing No -Bioengineered Tissue Yes -Type of bioengineered Tissue GRAFIX-Pime -Expiration Date 07/25/20 -Product Lot Number [id number] -Percent Used 100 -Other HYDROGEL LOT # [id number] -Offloading No -Treatment Response Procedure Tolerated Well [See Physician Procedure note for Specifics] Pain Scale: 0-10 Numeric [Pain] -Is Patient Pain Free? Yes Musculoskeletal: No Muscle Wasting Neurological: Cranial nerves II-XII grossly intact Psych/Mental Status: Normal Affect Debridement Note Post-Debridement Measurements/Treatment WC - Nurse 2 - General Ulcer CM Notes Start: 04/08/19 10:26 Freq: Status: Active Protocol: Activity Type Activity Date Activity User E-Sign Co-Sign Detail Recorded Client Recorded Date Recorded By Document 04/08/19 10:57 MW [id number] 04/08/19 11:02 MW Document 04/15/19 11:53 MW [id number] 04/15/19 11:58 MW Document 04/23/19 11:31 MW [id number] 04/23/19 11:34 MW Document 04/29/19 11:52 MW [id number] 04/29/19 11:54 MW 04/08/19 04/15/19 04/23/19 10:57 11:53 11:31 Wound Center Nurse 2 #10 Left heel -Time 10:58 11:57 11:32 -Correct Patient Yes Yes Yes -Correct Side, Site, Position Yes Yes Yes -Correct Procedure Yes Yes Yes -Procedure Performed Yes Yes Yes -Type of Procedure Debridement Debridement Debridement -Clinical Debridement Subcutaneous Subcutaneous Subcutaneous -Post Debridement Size (cm) - Length 1.5 0.5 0.9 -Post Debridement Size (cm) - Width 2.5 1.5 1.5 -Post Debridement Size (cm) - Depth 0.1 0.1 0.1 -Total Square Cm 3.75 0.75 1.35 -Wound/Ulcer Outcome Not Healed Not Healed Not Healed -Ulcer Cleansing Rinsed/ Rinsed/ Rinsed/ Irrigated with Irrigated with Irrigated with Saline Saline Saline -Foul Odor after Cleansing No No No -Bioengineered Tissue No Yes No -Type of bioengineered Tissue AHMET-Jesus -Expiration Date 12/24/19 -Product Lot Number [id number] -Percent Used 100 -Saline Lot Number [id number] -Bleeding Controlled with Pressure Pressure Pressure -Other -Offloading No No No -Treatment Response Procedure Procedure Procedure Tolerated Well Tolerated Well Tolerated Well Pain Scale: 0-10 Numeric Is Patient Pain Free? Yes Yes Yes 04/29/19 11:52 Wound Center Nurse 2 #10 Left heel -Time 11:52 -Correct Patient Yes -Correct Side, Site, Position Yes -Correct Procedure Yes -Procedure Performed Yes -Type of Procedure Debridement -Clinical Debridement Subcutaneous -Post Debridement Size (cm) - Length 0.5 -Post Debridement Size (cm) - Width 1.0 -Post Debridement Size (cm) - Depth 0.2 -Total Square Cm 0.50 -Wound/Ulcer Outcome Not Healed -Ulcer Cleansing Rinsed/ Irrigated with Saline -Foul Odor after Cleansing No -Bioengineered Tissue Yes -Type of bioengineered Tissue GRAFIX-Pime -Expiration Date 07/25/20 -Product Lot Number [id number] -Percent Used 100 -Saline Lot Number -Bleeding Controlled with -Other HYDROGEL LOT # [id number] -Offloading No -Treatment Response Procedure Tolerated Well Pain Scale: 0-10 Numeric Is Patient Pain Free? Yes Wound debrided: Left foot Wound Grade/Stage: Stage III Type of Debridement: Excisional debridement Anesthesia Used: 4% Lidocaine Solution Depth: Down to and including healthy tissue Percentage of wound debrided: 100 Instrument Used: 5mm curette Tissue Removed: Slough and devitalized tissue Severity: Fat Layer Exposed Amount of bleeding with debridement: Mild Bleeding Controlled with: Pressure Patient tolerated procedure well Assessment/Plan Active Problems (Last Reviewed 10/07/18 @ 13:21 by Rose Mary Taylor) Decubitus ulcer of left heel, stage 3 (Chronic) Type 2 diabetes mellitus (Chronic) PVD (peripheral vascular disease) (Chronic) Lower extremity edema (Chronic) Assessment: Same as above. Plan: Debridement done as documented above. Procedure was well-tolerated. Grafix applied using 100% of product. Moistened with hydrogel with Adaptic touch over top. Secured with Steri-Strips. Leave in place for a week. Continue CircAid's for edema management. Offloading strongly recommended. Her questions were answered and she was advised to call with any further questions or concerns. Follow-up in a week. This note was generated with [employer] software. It may contain incorrect words, spelling, and punctuation that were not noted in checking the note before signing.
[2019-05-06 11:16] VITALS: BP 140/72; PULSE 72; RESP 18; TEMP 36.6; BMI 32.5
--- NOTE | 2019-05-06 12:23 | PCM.WC.PN ---
(1) Decubitus ulcer of left heel, stage 3 Status: Chronic Current Visit: Yes Code(s): L89.623 - Pressure ulcer of left heel, stage 3 (2) Lower extremity edema Status: Chronic Current Visit: Yes Code(s): R60.0 - Localized edema (3) PVD (peripheral vascular disease) Status: Chronic Current Visit: Yes Code(s): I73.9 - Peripheral vascular disease, unspecified (4) Type 2 diabetes mellitus Status: Chronic Current Visit: Yes Code(s): E11.9 - Type 2 diabetes mellitus without complications Type of Wound Date of Service: 05/06/19 Chief Complaint: Left heel ulcer History of Wound: Ms. Hendrix is a 68-year-old with past medical history as documented who was last seen here by me in September for bilateral lower extremity ulcers and sacral ulcer. She was subsequently managed at a nursing facility after hospital stay for unrelated conditions. Post snf discharge, ulcers was said to have been managed by home health nurse. A week after discharge by home health nurse with ulcer states as healed, she noted a reopening. She states that she has been managed by her primary care physician and has applied calcium alginate. She also states that she had work-up done which was negative for osteomyelitis. She sleeps with an offloading boot but does not offload as much during the day. She denies chills, fever otherwise feeling of unwell. Progress of Wound: No new concerns at this time. Has had 9 applications of Grafix. - Physical Exam Vital Signs Temp Pulse Resp BP 97.8 F 72 18 140/72 H 05/06/19 11:16 05/06/19 11:16 05/06/19 11:16 05/06/19 11:16 General: Alert, Oriented x3, Cooperative, No apparent distress HEENT: Atraumatic, Normocephalic Oral: Moist Mucosa Neck: Supple Lungs: Normal air movement Abdomen: Non Tender, Obese Extremities: No cyanosis, Edema Skin: Ulcer/ Wound Wound Measurements and Assessment WC - Nurse 1 - General Ulcer Measurement Start: 04/08/19 10:26 Freq: Status: Active Protocol: Activity Type Activity Date Activity User E-Sign Co-Sign Detail Recorded Client Recorded Date Recorded By Document 05/06/19 11:16 NELLA [id number] 05/06/19 11:28 NELLA 05/06/19 11:16 Wound Center Nurse 1 [Ulcer Assessment] #10 Left heel -Combined with other wound No -Current Size (cm) - Length 0.2 -Current Size (cm) - Width 0.5 -Current Size (cm) - Depth 0.3 -Total Square Cm 0.10 -Photo Taken No -Epithelialization Small 1-33% -Tunneling No -Undermining/Tunneling No -Circular Undermining No -Exudate Amt Small -Exudate Type Serosanguineous -Wound Margin Flat & Intact -Granulation Amt None Present (0 %) -Slough/Fibrin Yes -Necrosis Amt Medium (34-66%) -Necrotic Tissue Type Adherent Slough -Structure Exposed N/A -Texture (Gricel-wound Skin Appearance) Assessed, Localized Edema -Moisture (Gricel-wound Skin Appearance Assessed,Dry/ ) Scaly -Color (Gricel-wound Skin Appearance) Assessed -Temperature (Gricel-wound Skin No Abnormality Appearance) (Pt Warm) -Tenderness on Palpation (Gricel-wound No Skin Appearance) -Ulcer Cleansing Rinsed/ Irrigated with Saline -Foul Odor after Cleansing No -Anesthetic Used 4% Lidocaine Solution [Edema Assessment] -Lower Limb Edema Present Yes -Left Calf (cm) 39.3 -Left Ankle (cm) 25.5 WC - Nurse 2 - General Ulcer CM Notes Start: 04/08/19 10:26 Freq: Status: Active Protocol: Activity Type Activity Date Activity User E-Sign Co-Sign Detail Recorded Client Recorded Date Recorded By Document 05/06/19 11:48 MW [id number] 05/06/19 11:59 MW 05/06/19 11:48 Wound Center Nurse 2 [Procedure/Treatment] #10 Left heel -Time 11:48 -Correct Patient Yes -Correct Side, Site, Position Yes -Correct Procedure Yes -Procedure Performed Yes -Type of Procedure Debridement -Clinical Debridement Subcutaneous -Post Debridement Size (cm) - Length 0.4 -Post Debridement Size (cm) - Width 1.2 -Post Debridement Size (cm) - Depth 0.1 -Total Square Cm 0.48 -Wound/Ulcer Outcome Not Healed -Ulcer Cleansing Rinsed/ Irrigated with Saline -Foul Odor after Cleansing No -Bioengineered Tissue Yes -Type of bioengineered Tissue AHMET-Jesus -Expiration Date 07/25/20 -Product Lot Number [id number] -Percent Used 100 -Saline Lot Number [id number] -Bleeding Controlled with Pressure -Offloading No -Treatment Response Procedure Tolerated Well [See Physician Procedure note for Specifics] Pain Scale: 0-10 Numeric [Pain] -Is Patient Pain Free? Yes Musculoskeletal: No Muscle Wasting Neurological: Cranial nerves II-XII grossly intact Psych/Mental Status: Normal Affect Debridement Note Post-Debridement Measurements/Treatment WC - Nurse 2 - General Ulcer CM Notes Start: 04/08/19 10:26 Freq: Status: Active Protocol: Activity Type Activity Date Activity User E-Sign Co-Sign Detail Recorded Client Recorded Date Recorded By Document 04/08/19 10:57 MW [id number] 04/08/19 11:02 MW Document 04/15/19 11:53 MW [id number] 04/15/19 11:58 MW Document 04/23/19 11:31 MW [id number] 04/23/19 11:34 MW Document 04/29/19 11:52 MW [id number] 04/29/19 11:54 MW Document 05/06/19 11:48 MW [id number] 05/06/19 11:59 MW 04/08/19 04/15/19 04/23/19 10:57 11:53 11:31 Wound Center Nurse 2 #10 Left heel -Time 10:58 11:57 11:32 -Correct Patient Yes Yes Yes -Correct Side, Site, Position Yes Yes Yes -Correct Procedure Yes Yes Yes -Procedure Performed Yes Yes Yes -Type of Procedure Debridement Debridement Debridement -Clinical Debridement Subcutaneous Subcutaneous Subcutaneous -Post Debridement Size (cm) - Length 1.5 0.5 0.9 -Post Debridement Size (cm) - Width 2.5 1.5 1.5 -Post Debridement Size (cm) - Depth 0.1 0.1 0.1 -Total Square Cm 3.75 0.75 1.35 -Wound/Ulcer Outcome Not Healed Not Healed Not Healed -Ulcer Cleansing Rinsed/ Rinsed/ Rinsed/ Irrigated with Irrigated with Irrigated with Saline Saline Saline -Foul Odor after Cleansing No No No -Bioengineered Tissue No Yes No -Type of bioengineered Tissue AHMET-Pimulices -Expiration Date 12/24/19 -Product Lot Number [id number] -Percent Used 100 -Saline Lot Number [id number] -Bleeding Controlled with Pressure Pressure Pressure -Other -Offloading No No No -Treatment Response Procedure Procedure Procedure Tolerated Well Tolerated Well Tolerated Well Pain Scale: 0-10 Numeric Is Patient Pain Free? Yes Yes Yes 04/29/19 05/06/19 11:52 11:48 Wound Center Nurse 2 #10 Left heel -Time 11:52 11:48 -Correct Patient Yes Yes -Correct Side, Site, Position Yes Yes -Correct Procedure Yes Yes -Procedure Performed Yes Yes -Type of Procedure Debridement Debridement -Clinical Debridement Subcutaneous Subcutaneous -Post Debridement Size (cm) - Length 0.5 0.4 -Post Debridement Size (cm) - Width 1.0 1.2 -Post Debridement Size (cm) - Depth 0.2 0.1 -Total Square Cm 0.50 0.48 -Wound/Ulcer Outcome Not Healed Not Healed -Ulcer Cleansing Rinsed/ Rinsed/ Irrigated with Irrigated with Saline Saline -Foul Odor after Cleansing No No -Bioengineered Tissue Yes Yes -Type of bioengineered Tissue GRAFIX-Pime GRAFIX-Pime -Expiration Date 07/25/20 07/25/20 -Product Lot Number [id number] -Percent Used 100 100 -Saline Lot Number [id number] -Bleeding Controlled with Pressure -Other HYDROGEL LOT # [id number] -Offloading No No -Treatment Response Procedure Procedure Tolerated Well Tolerated Well Pain Scale: 0-10 Numeric Is Patient Pain Free? Yes Yes Wound debrided: Left heel Wound Grade/Stage: Stage III Type of Debridement: Excisional debridement Anesthesia Used: 4% Lidocaine Solution Depth: Down to and including healthy tissue, in the subcutaneous layer Percentage of wound debrided: 100 Instrument Used: 5mm curette Tissue Removed: Slough and devitalized tissue Severity: Fat Layer Exposed Amount of bleeding with debridement: Mild Bleeding Controlled with: Pressure Patient tolerated procedure well Assessment/Plan Active Problems (Last Reviewed 10/07/18 @ 13:21 by Rose Mary Taylor) Decubitus ulcer of left heel, stage 3 (Chronic) Type 2 diabetes mellitus (Chronic) PVD (peripheral vascular disease) (Chronic) Lower extremity edema (Chronic) Assessment: Same as above. Plan: Debridement done as documented above. Procedure was well-tolerated. 10th Grafix applied using 100% of product. Moistened with saline with adaptic touch over top. Secured with Steri-Strips. Leave in place for a week. Continue CircAid's for edema management. Offloading strongly recommended. Her questions were answered and she was advised to call with any further questions or concerns. Follow-up in a week. This note was generated with [employer] ([employer]ation software. It may contain incorrect words, spelling, and punctuation that were not noted in checking the note before signing.
== END 2019-05-06 23:59 ==
LOC: WC 12:30
PROVIDERS: Family Provider Family Medicine Geriatric Medicine; PCP Family Medicine Geriatric Medicine; Referring Provider Internal Medicine; Visit Provider Internal Medicine
DX: I73.9 Peripheral vascular disease, unspecified (principal); L89.623 Pressure ulcer of left heel, stage 3; E11.621 Type 2 diabetes mellitus with foot ulcer; R60.0 Localized edema
CPT/HCPCS: 11042; 15271; 15275; Q4132; Q4133

== ENCOUNTER 2019-05-27 11:30 | Outpatient (RCR) | payer MEDICARE, OTHER, SELFPAY ==
[2019-05-07 00:53] VITALS: BP 140/72; PULSE 72; RESP 18; TEMP 36.6
[2019-05-13 12:18] VITALS: BP 146/109; PULSE 76; RESP 16; TEMP 37; BMI 32.5
--- NOTE | 2019-05-13 17:07 | PCM.WC.PN ---
(1) Decubitus ulcer of left heel, stage 3 Status: Chronic Current Visit: Yes Code(s): L89.623 - Pressure ulcer of left heel, stage 3 (2) Venous insufficiency of both lower extremities Status: Chronic Current Visit: Yes Code(s): I87.2 - Venous insufficiency (chronic) (peripheral) (3) PVD (peripheral vascular disease) Status: Chronic Current Visit: Yes Code(s): I73.9 - Peripheral vascular disease, unspecified Type of Wound Date of Service: 05/13/19 Chief Complaint: Left heel ulcer History of Wound: Ms. Hendrix is a 68-year-old with past medical history as documented who was last seen here by me in September for bilateral lower extremity ulcers and sacral ulcer. She was subsequently managed at a nursing facility after hospital stay for unrelated conditions. Post usp discharge, ulcers was said to have been managed by home health nurse. A week after discharge by home health nurse with ulcer states as healed, she noted a reopening. She states that she has been managed by her primary care physician and has applied calcium alginate. She also states that she had work-up done which was negative for osteomyelitis. She sleeps with an offloading boot but does not offload as much during the day. She denies chills, fever otherwise feeling of unwell. Progress of Wound: No new concerns at this time. Has had 10 applications of Grafix. - Physical Exam Vital Signs Temp Pulse Resp BP 98.6 F 76 16 146/109 H 05/13/19 12:18 05/13/19 12:18 05/13/19 12:18 05/13/19 12:18 General: Alert, Oriented x3, Cooperative, No apparent distress HEENT: Atraumatic, Normocephalic Oral: Moist Mucosa Neck: Supple Lungs: Normal air movement Extremities: No cyanosis, Edema Skin: Ulcer/ Wound Wound Measurements and Assessment WC - Nurse 1 - General Ulcer Measurement Start: 05/13/19 12:13 Freq: Status: Active Protocol: Activity Type Activity Date Activity User E-Sign Co-Sign Detail Recorded Client Recorded Date Recorded By Document 05/13/19 12:18 [id number] 05/13/19 12:20 CS 05/13/19 12:18 Wound Center Nurse 1 [Ulcer Assessment] #10 Left heel -Combined with other wound No -Current Size (cm) - Length 0.4 -Current Size (cm) - Width 1.1 -Current Size (cm) - Depth 0.1 -Total Square Cm 0.44 -Photo Taken No -Epithelialization Small 1-33% -Tunneling No -Undermining/Tunneling No -Circular Undermining No -Exudate Amt Small -Exudate Type Serosanguineous -Wound Margin Distinct, Outline Attached -Granulation Amt Medium (34-66%) -Granulation Quality Pale,[place] -Slough/Fibrin Yes -Necrosis Amt None Present (0 %) -Necrotic Tissue Type Adherent Slough -Texture (Gricel-wound Skin Appearance) Callus -Moisture (Gricel-wound Skin Appearance Assessed,Dry/ ) Scaly -Color (Gricel-wound Skin Appearance) No Abnormality, Assessed -Temperature (Gricel-wound Skin No Abnormality Appearance) (Pt Warm) -Tenderness on Palpation (Gricel-wound No Skin Appearance) -Ulcer Cleansing Rinsed/ Irrigated with Saline -Foul Odor after Cleansing No -Anesthetic Used 4% Lidocaine Solution [Edema Assessment] -Lower Limb Edema Present Yes -Left Calf (cm) 40 -Left Ankle (cm) 26.6 WC - Nurse 2 - General Ulcer CM Notes Start: 05/13/19 12:13 Freq: Status: Active Protocol: Activity Type Activity Date Activity User E-Sign Co-Sign Detail Recorded Client Recorded Date Recorded By Document 05/13/19 12:33 MW [id number] 05/13/19 12:34 MW 05/13/19 12:33 Wound Center Nurse 2 [Procedure/Treatment] #10 Left heel -Time 12:34 -Correct Patient Yes -Correct Side, Site, Position Yes -Correct Procedure Yes -Procedure Performed Yes -Type of Procedure Debridement -Clinical Debridement Subcutaneous -Post Debridement Size (cm) - Length 0.4 -Post Debridement Size (cm) - Width 1.0 -Post Debridement Size (cm) - Depth 0.1 -Total Square Cm 0.40 -Wound/Ulcer Outcome Not Healed -Ulcer Cleansing Rinsed/ Irrigated with Saline -Foul Odor after Cleansing No -Bioengineered Tissue No -Bleeding Controlled with Pressure -Offloading No -Treatment Response Procedure Tolerated Well [See Physician Procedure note for Specifics] Pain Scale: 0-10 Numeric [Pain] -Is Patient Pain Free? Yes Musculoskeletal: No Muscle Wasting Neurological: Cranial nerves II-XII grossly intact Psych/Mental Status: Normal Affect Debridement Note Post-Debridement Measurements/Treatment WC - Nurse 2 - General Ulcer CM Notes Start: 05/13/19 12:13 Freq: Status: Active Protocol: Activity Type Activity Date Activity User E-Sign Co-Sign Detail Recorded Client Recorded Date Recorded By Document 05/13/19 12:33 MW [id number] 05/13/19 12:34 MW 05/13/19 12:33 Wound Center Nurse 2 #10 Left heel -Time 12:34 -Correct Patient Yes -Correct Side, Site, Position Yes -Correct Procedure Yes -Procedure Performed Yes -Type of Procedure Debridement -Clinical Debridement Subcutaneous -Post Debridement Size (cm) - Length 0.4 -Post Debridement Size (cm) - Width 1.0 -Post Debridement Size (cm) - Depth 0.1 -Total Square Cm 0.40 -Wound/Ulcer Outcome Not Healed -Ulcer Cleansing Rinsed/ Irrigated with Saline -Foul Odor after Cleansing No -Bioengineered Tissue No -Bleeding Controlled with Pressure -Offloading No -Treatment Response Procedure Tolerated Well Pain Scale: 0-10 Numeric Is Patient Pain Free? Yes Wound debrided: Left heel Wound Grade/Stage: Stage III Type of Debridement: Excisional debridement Anesthesia Used: 4% Lidocaine Solution Depth: Down to and including healthy tissue, in the subcutaneous layer Percentage of wound debrided: 100 Instrument Used: 3mm curette Tissue Removed: Slough and devitalized tissue Severity: Fat Layer Exposed Amount of bleeding with debridement: Mild Bleeding Controlled with: Pressure Patient tolerated procedure well Assessment/Plan Active Problems (Last Reviewed 10/07/18 @ 13:21 by Rose Mary Taylor) Decubitus ulcer of left heel, stage 3 (Chronic) Venous insufficiency of both lower extremities (Chronic) PVD (peripheral vascular disease) (Chronic) Assessment: Same as above. Plan: Debridement done as documented above. Procedure was well-tolerated. Has had 10 applications of Grafix. Switch to Promogran daily with Adaptic over top. Nurses had to help with offloading. Change this daily. Continue CircAid's for edema management. Offloading strongly recommended. Her questions were answered and she was advised to call with any further questions or concerns. Follow-up in a week. This note was generated with [employer] software. It may contain incorrect words, spelling, and punctuation that were not noted in checking the note before signing. Code Visit 111xxx-113xx: 13528 Candace subq tissue 20 sq cm/<
[2019-05-20 12:38] VITALS: BP 163/91; PULSE 70; RESP 18; TEMP 36.7; BMI 32.5
--- NOTE | 2019-05-20 13:38 | PCM.WC.PN ---
(1) Decubitus ulcer of left heel, stage 3 Status: Chronic Current Visit: Yes Code(s): L89.623 - Pressure ulcer of left heel, stage 3 (2) Venous insufficiency of both lower extremities Status: Chronic Current Visit: Yes Code(s): I87.2 - Venous insufficiency (chronic) (peripheral) (3) PVD (peripheral vascular disease) Status: Chronic Current Visit: Yes Code(s): I73.9 - Peripheral vascular disease, unspecified Type of Wound Date of Service: 05/20/19 Chief Complaint: Left heel ulcer History of Wound: Ms. Hendrix is a 68-year-old with past medical history as documented who was last seen here by me in September for bilateral lower extremity ulcers and sacral ulcer. She was subsequently managed at a nursing facility after hospital stay for unrelated conditions. [facility] discharge, ulcers was said to have been managed by home health nurse. A week after discharge by home health nurse with ulcer states as healed, she noted a reopening. She states that she has been managed by her primary care physician and has applied calcium alginate. She also states that she had work-up done which was negative for osteomyelitis. She sleeps with an offloading boot but does not offload as much during the day. She denies chills, fever otherwise feeling of unwell. Progress of Wound: Bilateral lower extremity edema. Patient states that she has been caring for her sister and was unable to adhere strictly to wound care instructions. - Physical Exam Vital Signs Temp Pulse Resp BP 98.0 F 70 18 163/91 H 05/20/19 12:38 05/20/19 12:38 05/20/19 12:38 05/20/19 12:38 General: Alert, Oriented x3, Cooperative, No apparent distress HEENT: Atraumatic, Normocephalic Oral: Moist Mucosa Neck: Supple Lungs: Normal air movement Abdomen: Non Tender, Obese Extremities: No cyanosis, Edema Skin: Ulcer/ Wound Wound Measurements and Assessment WC - Nurse 1 - General Ulcer Measurement Start: 05/13/19 12:13 Freq: Status: Active Protocol: Activity Type Activity Date Activity User E-Sign Co-Sign Detail Recorded Client Recorded Date Recorded By Document 05/20/19 12:38 DV [id number] 05/20/19 12:41 DV 05/20/19 12:38 Wound Center Nurse 1 [Ulcer Assessment] #10 Left heel -Combined with other wound No -Current Size (cm) - Length 0.5 -Current Size (cm) - Width 1.0 -Current Size (cm) - Depth 0.1 -Total Square Cm 0.50 -Photo Taken No -Epithelialization None Present -Tunneling No -Undermining/Tunneling No -Circular Undermining No -Classification - Thickness Full Thickness without Exposed Support Structure -Exudate Amt Small -Exudate Type Serosanguineous -Wound Margin Indistinct, Non -Visible -Granulation Amt None Present (0 %) -Granulation Quality N/A -Slough/Fibrin Yes -Necrosis Amt Large (67-100%) -Necrotic Tissue Type Adherent Slough -Structure Exposed None/Limited to Skin Breakdown -Texture (Gricel-wound Skin Appearance) Assessed, Scarring -Moisture (Gricel-wound Skin Appearance Assessed,Dry/ ) Scaly -Color (Gricel-wound Skin Appearance) No Abnormality, Assessed -Temperature (Gricel-wound Skin No Abnormality Appearance) (Pt Warm) -Tenderness on Palpation (Gricel-wound No Skin Appearance) -Ulcer Cleansing Rinsed/ Irrigated with Saline -Foul Odor after Cleansing No -Anesthetic Used 4% Lidocaine Solution [Edema Assessment] -Lower Limb Edema Present Yes -Right Calf (cm) 45.0 -Right Ankle (cm) 32.0 -Left Calf (cm) 43.5 -Left Ankle (cm) 27.5 WC - Nurse 2 - General Ulcer CM Notes Start: 05/13/19 12:13 Freq: Status: Active Protocol: Activity Type Activity Date Activity User E-Sign Co-Sign Detail Recorded Client Recorded Date Recorded By Document 05/20/19 13:07 [id number] 05/20/19 13:11 MW 05/20/19 13:07 Wound Center Nurse 2 [Procedure/Treatment] #10 Left heel -Time 13:08 -Correct Patient Yes -Correct Side, Site, Position Yes -Correct Procedure Yes -Procedure Performed Yes -Type of Procedure Debridement -Clinical Debridement Subcutaneous -Post Debridement Size (cm) - Length 0.4 -Post Debridement Size (cm) - Width 0.8 -Post Debridement Size (cm) - Depth 0.1 -Total Square Cm 0.32 -Wound/Ulcer Outcome Not Healed -Ulcer Cleansing Rinsed/ Irrigated with Saline -Foul Odor after Cleansing No -Bioengineered Tissue No -Bleeding Controlled with Pressure -Offloading No -Treatment Response Procedure Tolerated Well [See Physician Procedure note for Specifics] Pain Scale: 0-10 Numeric [Pain] -Is Patient Pain Free? Yes Musculoskeletal: No Muscle Wasting Neurological: Cranial nerves II-XII grossly intact Psych/Mental Status: Normal Affect Debridement Note Post-Debridement Measurements/Treatment WC - Nurse 2 - General Ulcer CM Notes Start: 05/13/19 12:13 Freq: Status: Active Protocol: Activity Type Activity Date Activity User E-Sign Co-Sign Detail Recorded Client Recorded Date Recorded By Document 05/13/19 12:33 MW [id number] 05/13/19 12:34 MW Document 05/20/19 13:07 MW [id number] 05/20/19 13:11 MW 05/13/19 05/20/19 12:33 13:07 Wound Center Nurse 2 #10 Left heel -Time 12:34 13:08 -Correct Patient Yes Yes -Correct Side, Site, Position Yes Yes -Correct Procedure Yes Yes -Procedure Performed Yes Yes -Type of Procedure Debridement Debridement -Clinical Debridement Subcutaneous Subcutaneous -Post Debridement Size (cm) - Length 0.4 0.4 -Post Debridement Size (cm) - Width 1.0 0.8 -Post Debridement Size (cm) - Depth 0.1 0.1 -Total Square Cm 0.40 0.32 -Wound/Ulcer Outcome Not Healed Not Healed -Ulcer Cleansing Rinsed/ Rinsed/ Irrigated with Irrigated with Saline Saline -Foul Odor after Cleansing No No -Bioengineered Tissue No No -Bleeding Controlled with Pressure Pressure -Offloading No No -Treatment Response Procedure Procedure Tolerated Well Tolerated Well Pain Scale: 0-10 Numeric Is Patient Pain Free? Yes Yes Wound debrided: Left heel Wound Grade/Stage: Stage III Type of Debridement: Excisional debridement Anesthesia Used: 4% Lidocaine Solution Depth: Down to and including healthy tissue, in the subcutaneous layer Percentage of wound debrided: 100 Instrument Used: 7mm curette Tissue Removed: Slough and devitalized tissue Severity: Fat Layer Exposed Amount of bleeding with debridement: Mild Bleeding Controlled with: Pressure Patient tolerated procedure well Assessment/Plan Active Problems (Last Reviewed 10/07/18 @ 13:21 by Rose Mary Taylor) Decubitus ulcer of left heel, stage 3 (Chronic) Venous insufficiency of both lower extremities (Chronic) PVD (peripheral vascular disease) (Chronic) Assessment: Same as above. Plan: Debridement done as documented above. Procedure was well-tolerated. Continue Promogran daily with Adaptic over top. Nurses hat to help with offloading. Change this daily. Continue CircAid's for edema management. Offloading strongly recommended. Compliance with compression also strongly recommended. Elevate lower extremities when seated and in bed. Avoid idle standing and exercise as tolerated. Her questions were answered and she was advised to call with any further questions or concerns. Follow-up in a week. This note was generated with [employer] dictation software. It may contain incorrect words, spelling, and punctuation that were not noted in checking the note before signing. Code Visit 111xxx-113xx: 69798 Candace subq tissue 20 sq cm/<
[2019-05-27 11:23] VITALS: BP 135/89; PULSE 74; RESP 16; TEMP 36.4; BMI 32.5
--- NOTE | 2019-05-27 21:11 | PN.PCM_ITS ---
(1) Decubitus ulcer of left heel, stage 3 Status: Chronic Current Visit: Yes Code(s): L89.623 - Pressure ulcer of left heel, stage 3 (2) Venous insufficiency of both lower extremities Status: Chronic Current Visit: Yes Code(s): I87.2 - Venous insufficiency (chronic) (peripheral) (3) PVD (peripheral vascular disease) Status: Chronic Current Visit: Yes Code(s): I73.9 - Peripheral vascular disease, unspecified Type of Wound Date of Service: 05/27/19 Chief Complaint: Left heel ulcer History of Wound: Ms. Hendrix is a 68-year-old with past medical history as documented who was last seen here by me in September for bilateral lower extremity ulcers and sacral ulcer. She was subsequently managed at a nursing facility after hospital stay for unrelated conditions. Post group home discharge, ulcers was said to have been managed by home health nurse. A week after discharge by home health nurse with ulcer states as healed, she noted a reopening. She states that she has been managed by her primary care physician and has applied calcium alginate. She also states that she had work-up done which was negative for osteomyelitis. She sleeps with an offloading boot but does not offload as much during the day. She denies chills, fever otherwise feeling of unwell. Progress of Wound: No new concerns at this time. Left heel ulcer is improving. - Physical Exam Vital Signs Temp Pulse Resp BP 97.5 F L 74 16 135/89 H 05/27/19 11:23 05/27/19 11:23 05/27/19 11:23 05/27/19 11:23 General: Alert, Oriented x3, Cooperative, No apparent distress HEENT: Atraumatic, Normocephalic Neck: Supple Lungs: Normal air movement Abdomen: Non Tender, Obese Extremities: No cyanosis, Edema Wound Measurements and Assessment WC - Nurse 1 - General Ulcer Measurement Start: 05/13/19 12:13 Freq: Status: Active Protocol: Activity Type Activity Date Activity User E-Sign Co-Sign Detail Recorded Client Recorded Date Recorded By Document 05/27/19 11:23 [facility] [id number] 05/27/19 11:29 [facility] 05/27/19 11:23 Wound Center Nurse 1 [Ulcer Assessment] #10 Left heel -Combined with other wound No -Current Size (cm) - Length 0.7 -Current Size (cm) - Width 2 -Current Size (cm) - Depth 0.1 -Total Square Cm 1.4 -Date of Last Picture (Recall this 05/27/19 field) -Photo Taken Yes -Tunneling No -Undermining/Tunneling No -Circular Undermining No -Exudate Amt None Present -Wound Margin Distinct, Outline Attached -Granulation Amt None Present (0 %) -Slough/Fibrin Yes -Necrosis Amt Small (1-33%) -Necrotic Tissue Type Adherent Slough -Texture (Gricel-wound Skin Appearance) Assessed, Scarring -Moisture (Gricel-wound Skin Appearance Assessed,Dry/ ) Scaly -Color (Gricel-wound Skin Appearance) Assessed -Temperature (Gricel-wound Skin No Abnormality Appearance) (Pt Warm) -Tenderness on Palpation (Gricel-wound No Skin Appearance) -Ulcer Cleansing Rinsed/ Irrigated with Saline -Foul Odor after Cleansing No -Anesthetic Used 5% Lidocaine Gel [Edema Assessment] -Lower Limb Edema Present Yes -Left Calf (cm) 35.7 -Left Ankle (cm) 25.3 WC - Nurse 2 - General Ulcer CM Notes Start: 05/13/19 12:13 Freq: Status: Active Protocol: Activity Type Activity Date Activity User E-Sign Co-Sign Detail Recorded Client Recorded Date Recorded By Document 05/27/19 11:44 MW [id number] 05/27/19 11:46 MW 05/27/19 11:44 Wound Center Nurse 2 [Procedure/Treatment] #10 Left heel -Time 11:44 -Correct Patient Yes -Correct Side, Site, Position Yes -Correct Procedure Yes -Procedure Performed Yes -Type of Procedure Debridement -Clinical Debridement Subcutaneous -Post Debridement Size (cm) - Length 0.2 -Post Debridement Size (cm) - Width 0.6 -Post Debridement Size (cm) - Depth 0.1 -Total Square Cm 0.12 -Wound/Ulcer Outcome Not Healed -Ulcer Cleansing Rinsed/ Irrigated with Saline -Foul Odor after Cleansing No -Bioengineered Tissue No -Bleeding Controlled with Pressure -Offloading No -Treatment Response Procedure Tolerated Well [See Physician Procedure note for Specifics] Pain Scale: 0-10 Numeric [Pain] -Is Patient Pain Free? Yes Musculoskeletal: No Muscle Wasting Neurological: Cranial nerves II-XII grossly intact Psych/Mental Status: Normal Affect Debridement Note Post-Debridement Measurements/Treatment WC - Nurse 2 - General Ulcer CM Notes Start: 05/13/19 12:13 Freq: Status: Active Protocol: Activity Type Activity Date Activity User E-Sign Co-Sign Detail Recorded Client Recorded Date Recorded By Document 05/13/19 12:33 MW [id number] 05/13/19 12:34 MW Document 05/20/19 13:07 MW [id number] 05/20/19 13:11 MW Document 05/27/19 11:44 MW [id number] 05/27/19 11:46 MW 05/13/19 05/20/19 05/27/19 12:33 13:07 11:44 Wound Center Nurse 2 #10 Left heel -Time 12:34 13:08 11:44 -Correct Patient Yes Yes Yes -Correct Side, Site, Position Yes Yes Yes -Correct Procedure Yes Yes Yes -Procedure Performed Yes Yes Yes -Type of Procedure Debridement Debridement Debridement -Clinical Debridement Subcutaneous Subcutaneous Subcutaneous -Post Debridement Size (cm) - Length 0.4 0.4 0.2 -Post Debridement Size (cm) - Width 1.0 0.8 0.6 -Post Debridement Size (cm) - Depth 0.1 0.1 0.1 -Total Square Cm 0.40 0.32 0.12 -Wound/Ulcer Outcome Not Healed Not Healed Not Healed -Ulcer Cleansing Rinsed/ Rinsed/ Rinsed/ Irrigated with Irrigated with Irrigated with Saline Saline Saline -Foul Odor after Cleansing No No No -Bioengineered Tissue No No No -Bleeding Controlled with Pressure Pressure Pressure -Offloading No No No -Treatment Response Procedure Procedure Procedure Tolerated Well Tolerated Well Tolerated Well Pain Scale: 0-10 Numeric Is Patient Pain Free? Yes Yes Yes Wound debrided: Left heel Wound Grade/Stage: Stage III Type of Debridement: Excisional debridement Anesthesia Used: 4% Lidocaine Solution Depth: Down to and including healthy tissue Percentage of wound debrided: 100 Instrument Used: 3mm curette Tissue Removed: Slough and devitalized tissue Severity: Fat Layer Exposed Amount of bleeding with debridement: Mild Bleeding Controlled with: Pressure Patient tolerated procedure well Assessment/Plan Active Problems (Last Reviewed 10/07/18 @ 13:21 by Rose Mary Taylor) Decubitus ulcer of left heel, stage 3 (Chronic) Venous insufficiency of both lower extremities (Chronic) PVD (peripheral vascular disease) (Chronic) Assessment: Same as above. Plan: Debridement done as documented above. Procedure was well-tolerated. Continue Promogran daily with Adaptic over top. Nurses hat to help with offloading. Change this daily. Continue CircAid's for edema management. Offloading strongly recommended. Compliance with compression also strongly recommended. Elevate lower extremities when seated and in bed. Avoid idle standing and exercise as tolerated. Her questions were answered and she was advised to call with any further questions or concerns. Follow-up in 2 weeks. This note was generated with [employer] dictation software. It may contain incorrect words, spelling, and punctuation that were not noted in checking the note before signing. Code Visit [id number]: [id number] Candace subq tissue 20 sq cm/<
== END 2019-06-05 23:59 ==
LOC: WC 11:30
PROVIDERS: Family Provider Family Medicine Geriatric Medicine; PCP Family Medicine Geriatric Medicine; Referring Provider Internal Medicine; Visit Provider Internal Medicine
DX: I73.9 Peripheral vascular disease, unspecified (principal); I87.2 Venous insufficiency (chronic) (peripheral); L89.623 Pressure ulcer of left heel, stage 3
CPT/HCPCS: 11042

== ENCOUNTER 2019-06-10 10:46 | Outpatient (RCR) | payer MEDICARE, OTHER, SELFPAY ==
[2019-06-06 00:42] VITALS: BP 135/89; PULSE 74; RESP 16; TEMP 36.4
[2019-06-10 11:20] VITALS: BP 153/81; PULSE 72; RESP 18; TEMP 36.6; BMI 32.5
--- NOTE | 2019-06-10 12:00 | PN.PCM_ITS ---
(1) Decubitus ulcer of left heel, stage 3 Status: Chronic Current Visit: Yes Code(s): L89.623 - Pressure ulcer of left heel, stage 3 (2) Lower extremity edema Status: Chronic Current Visit: Yes Code(s): R60.0 - Localized edema (3) Venous insufficiency of both lower extremities Status: Chronic Current Visit: Yes Code(s): I87.2 - Venous insufficiency (chronic) (peripheral) Type of Wound Date of Service: 06/10/19 Chief Complaint: Left heel ulcer History of Wound: Ms. Hendrix is a 68-year-old with past medical history as documented who was last seen here by me in September for bilateral lower extremity ulcers and sacral ulcer. She was subsequently managed at a nursing facility after hospital stay for unrelated conditions. Post custodial discharge, ulcers was said to have been managed by home health nurse. A week after discharge by home health nurse with ulcer states as healed, she noted a reopening. She states that she has been managed by her primary care physician and has applied calcium alginate. She also states that she had work-up done which was negative for osteomyelitis. She sleeps with an offloading boot but does not offload as much during the day. She denies chills, fever otherwise f eeling of unwell. Progress of Wound: Healed. - Physical Exam Vital Signs Temp Pulse Resp BP 97.8 F 72 18 153/81 H 06/10/19 11:20 06/10/19 11:20 06/10/19 11:20 06/10/19 11:20 General: Alert, Oriented x3, Cooperative, No apparent distress HEENT: Atraumatic, Normocephalic Oral: Moist Mucosa Neck: Supple Lungs: Normal air movement Abdomen: Non Tender, Obese Extremities: No cyanosis, Edema Wound Measurements and Assessment WC - Nurse 1 - General Ulcer Measurement Start: 06/10/19 11:20 Freq: Status: Active Protocol: Activity Type Activity Date Activity User E-Sign Co-Sign Detail Recorded Client Recorded Date Recorded By Document 06/10/19 11:20 DL [id number] 06/10/19 11:24 DL 06/10/19 11:20 Wound Center Nurse 1 [Ulcer Assessment] #10 Left heel -Current Size (cm) - Length 0.6 -Current Size (cm) - Width 1.1 -Current Size (cm) - Depth 0.1 -Total Square Cm 0.66 -Photo Taken No -Exudate Amt None Present -Wound Margin Thickened -Granulation Amt None Present (0 %) -Necrosis Amt Small (1-33%) -Necrotic Tissue Type Adherent Slough -Structure Exposed N/A -Texture (Gricel-wound Skin Appearance) Scarring -Moisture (Gricel-wound Skin Appearance Dry/Scaly ) -Color (Gricel-wound Skin Appearance) No Abnormality -Temperature (Gricel-wound Skin No Abnormality Appearance) (Pt Warm) -Tenderness on Palpation (Gricel-wound No Skin Appearance) -Ulcer Cleansing Wound Cleanser -Foul Odor after Cleansing No -Anesthetic Used 5% Lidocaine Gel [Edema Assessment] -Left Calf (cm) 38.2 -Left Ankle (cm) 27 WC - Nurse 2 - General Ulcer CM Notes Start: 06/10/19 11:20 Freq: Status: Active Protocol: Activity Type Activity Date Activity User E-Sign Co-Sign Detail Recorded Client Recorded Date Recorded By Document 06/10/19 11:43 MW [id number] 06/10/19 11:47 MW 06/10/19 11:43 Wound Center Nurse 2 [Procedure/Treatment] #10 Left heel -Time 11:44 -Correct Patient Yes -Correct Side, Site, Position Yes -Correct Procedure Yes -Procedure Performed No -Post Debridement Size (cm) - Length 0 -Post Debridement Size (cm) - Width 0 -Post Debridement Size (cm) - Depth 0 -Total Square Cm 0 -Wound/Ulcer Outcome Healed- Epithelialized -Ulcer Cleansing Rinsed/ Irrigated with Saline -Foul Odor after Cleansing No -Bioengineered Tissue No -Bleeding Controlled with NA -Offloading No -Treatment Response Procedure Tolerated Well [See Physician Procedure note for Specifics] Pain Scale: 0-10 Numeric [Pain] -Is Patient Pain Free? Yes Musculoskeletal: No Muscle Wasting Neurological: Cranial nerves II-XII grossly intact Psych/Mental Status: Normal Affect Debridement Note Post-Debridement Measurements/Treatment WC - Nurse 2 - General Ulcer CM Notes Start: 06/10/19 11:20 Freq: Status: Active Protocol: Activity Type Activity Date Activity User E-Sign Co-Sign Detail Recorded Client Recorded Date Recorded By Document 06/10/19 11:43 MW [id number] 06/10/19 11:47 MW 06/10/19 11:43 Wound Center Nurse 2 #10 Left heel -Time 11:44 -Correct Patient Yes -Correct Side, Site, Position Yes -Correct Procedure Yes -Procedure Performed No -Post Debridement Size (cm) - Length 0 -Post Debridement Size (cm) - Width 0 -Post Debridement Size (cm) - Depth 0 -Total Square Cm 0 -Wound/Ulcer Outcome Healed- Epithelialized -Ulcer Cleansing Rinsed/ Irrigated with Saline -Foul Odor after Cleansing No -Bioengineered Tissue No -Bleeding Controlled with NA -Offloading No -Treatment Response Procedure Tolerated Well Pain Scale: 0-10 Numeric Is Patient Pain Free? Yes No debridement was completed today Assessment/Plan Active Problems (Last Reviewed 10/07/18 @ 13:21 by Rose Mary Taylor) Decubitus ulcer of left heel, stage 3 (Chronic) Venous insufficiency of both lower extremities (Chronic) Lower extremity edema (Chronic) Assessment: Same as above. Plan: Healed. No new concerns at tis time. Nurses hat to help with offloading. Change this daily. Continue CircAid's for edema management. Offloading strongly recommended. Compliance with compression also strongly recommended. Elevate lower extremities when seated and in bed. Avoid idle standing and exercise as tolerated. Her questions were answered and she was advised to call with any further questions or concerns. Discharged from the wound clinic. This note was generated with [employer] dictation software. It may contain incorrect words, spelling, and punctuation that were not noted in checking the note before signing. Code Visit Office Visits / Consults: 47574 OV L3 Est
== END 2019-07-06 23:59 ==
LOC: WC 10:46
PROVIDERS: Family Provider Family Medicine Geriatric Medicine; PCP Family Medicine Geriatric Medicine; Referring Provider Internal Medicine; Visit Provider Internal Medicine
DX: Z09 Encounter for follow-up examination after completed treatment for conditions other than malignant neoplasm (principal); I87.2 Venous insufficiency (chronic) (peripheral); R60.0 Localized edema
CPT/HCPCS: 99213; G0463

== ENCOUNTER 2019-06-13 13:30 | Inpatient (IN) | payer OTHER, MEDICARE, SELFPAY ==
[2019-06-13 13:32] VITALS: BP 151/86; PULSE 74; RESP 14; TEMP 36.1; O2SAT 94; BMI 30.3
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
[2019-06-13] MEDS: Ibuprofen 600 MG Tablet PO (14:18)
[2019-06-13] MEDS: Morphine 4 MG/ML Syringe IM (14:21)
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
--- NOTE | 2019-06-13 15:07 | NURSING ---
309 WHITE INABILITY TO AMBULATE, BACK PAIN
[2019-06-13 15:35] LABS: Absolute Lymphocyte Count 1.45 X10^3/uL (0.83-4.51); Absolute Neutrophil Count 6.8 X10^3/uL (2.0-7.7); Basophil# 0.03 X10^3/uL; Basophil% 0.3 % (0-1); Eosinophil# 0.11 X10^3/uL; Eosinophils% 1.2 % (0-5); Hemoglobin 13.9 g/dL (12.0-15.0); Lymphocyte # 1.45 X10^3/ul (4.0); Lymphocyte % 15.8 % (19-41); Mean Corp Hgb Conc 32.3 g/dL (32-36); Mean Corpuscular Hgb 29.4 pg (27.0-32.0); Mean Corpuscular Volume 91.1 fL (81-99); Mean Platelet Vol. 11.2 fl (6.2-12.0); Monocyte# 0.82 X10^3/uL; Monocyte% 8.9 % (0-10); NRBC Flagged by Analyzer 0 % (0-5); Neutrophil # 6.75 X10^3/uL (2.7-7.7); Neutrophil % 73.5 % (47-70); Platelet Count 124 K/mm3 (150-450); Red Blood Count 4.72 M/mm3 (4.2-5.4); White Blood Count 9.2 K/mm3 (4.4-11.0)
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
[2019-06-13 15:50] VITALS: BP 167/73; PULSE 69; RESP 16
[2019-06-13 15:52] LABS: Anion Gap 5 (5-15); BUN 19 mg/dL (7-18); BUN/Creat Ratio 24.6 RATIO (10-20); Calcium,Total 8.4 mg/dL (8.5-10.1); Chloride 108 mmol/L (98-107); Creatinine, Serum 0.77 mg/dL (0.55-1.02); EST Glomerular Filtration Rate 78 mL/min (>60); Est Glom Filt Rate - Afr Amer 95 mL/min (>60); Glucose 115 mg/dL (74-106); Potassium 3.9 mmol/L (3.5-5.1); Sodium Level 143 mmol/L (136-145)
[2019-06-13 15:53] LABS: Magnesium 1.5 mg/dL (1.6-2.6)
[2019-06-13 16:24] VITALS: BMI 30.6
[2019-06-13 16:47] VITALS: BP 152/80; PULSE 65; RESP 18; TEMP 36.7; O2SAT 95
[2019-06-13 17:00] LABS: Mucous, Urine 0 SEEN /hpf (<or=2+)
[2019-06-13] MEDS: Lidocaine 5% Patch 1 PATCH TOPICAL (17:00)
[2019-06-13] MEDS: Ferrous Sulfate 325 MG Tablet PO (17:00)
[2019-06-13 17:05] LABS: Bedside Glucose 75 mg/dL (70-110)
[2019-06-13 17:14] LABS: Color, Urine Straw (Yellow); Glucose, Dipstick Normal (Normal); Ketone-Dipstick Negative (Negative); Leukocyte Esterase-Dipstick 25 /ul (Negative); Nitrite-Dipstick Positive (Negative); Occult Blood-Urine Negative /ul (Negative); Protein-Dipstick Negative (Negative); Urine Bilirubin Dipstick Negative (Negative); Urine Clarity Sl. Cloudy (Clear); Urine Urobilinogen Normal (Normal)
[2019-06-13 17:19] LABS: Squamous Epithelial Cells - UA 0-5 SEEN /hpf (5-10)
[2019-06-13 17:21] LABS: Bacteria 2+ /hpf (None Seen)
[2019-06-13 17:22] LABS: Red Blood Cells-Urine 0-5 SEEN /hpf (0-5)
[2019-06-13 17:23] LABS: White Blood Cells 5-10 SEEN /hpf (0-5)
[2019-06-13] MEDS: Furosemide 20 MG Tablet PO (18:21)
[2019-06-13 19:37] VITALS: O2SAT 96
[2019-06-13 21:52] VITALS: PULSE 64; RESP 17; O2SAT 94
[2019-06-13] MEDS: Atorvastatin Calcium 10 MG Tablet 5 MG PO (22:27)
[2019-06-13] MEDS: Gabapentin 300 MG Capsule 600 MG PO (22:27)
[2019-06-13] MEDS: Ketorolac 15 MG/ML Vial IV (22:28)
[2019-06-13] MEDS: buPROPion (SR) 150 MG Tablet.SA PO (22:28)
[2019-06-13] MEDS: 0.9% Saline Lock 10 ML Syringe IV (22:28)
[2019-06-13 22:35] VITALS: BP 156/81; PULSE 61; RESP 16; TEMP 36.9; O2SAT 95
[2019-06-13 23:00] LABS: Bedside Glucose 137 mg/dL (70-110)
[2019-06-14 05:25] VITALS: BP 131/69; PULSE 69; RESP 16; TEMP 36.8; O2SAT 93
[2019-06-14] MEDS: Ketorolac 15 MG/ML Vial IV ×3 (05:28→21:05)
[2019-06-14] MEDS: 0.9% Saline Lock 10 ML Syringe IV ×2 (05:29→14:50)
[2019-06-14 05:48] LABS: Absolute Lymphocyte Count 1.39 X10^3/uL (0.83-4.51); Absolute Neutrophil Count 3.2 X10^3/uL (2.0-7.7); Basophil# 0.02 X10^3/uL; Basophil% 0.4 % (0-1); Eosinophils% 3.7 % (0-5); Hematocrit 40.2 % (37-47); Hemoglobin 12.8 g/dL (12.0-15.0); Lymphocyte # 1.39 X10^3/ul (4.0); Lymphocyte % 25.4 % (19-41); Mean Corp Hgb Conc 31.8 g/dL (32-36); Mean Platelet Vol. 11.4 fl (6.2-12.0); Monocyte# 0.63 X10^3/uL; Monocyte% 11.5 % (0-10); NRBC Flagged by Analyzer 0 % (0-5); Neutrophil # 3.22 X10^3/uL (2.7-7.7); Neutrophil % 58.8 % (47-70); Platelet Count 121 K/mm3 (150-450); RBC Distribution Width CV 15.1 % (11.6-14.6); Red Blood Count 4.42 M/mm3 (4.2-5.4); White Blood Count 5.5 K/mm3 (4.4-11.0)
[2019-06-14 06:21] LABS: Anion Gap 2 (5-15); BUN 15 mg/dL (7-18); BUN/Creat Ratio 22.1 RATIO (10-20); Calcium,Total 7.8 mg/dL (8.5-10.1); Chloride 109 mmol/L (98-107); Creatinine, Serum 0.68 mg/dL (0.55-1.02); EST Glomerular Filtration Rate 91 mL/min (>60); Est Glom Filt Rate - Afr Amer 110 mL/min (>60); Glucose 105 mg/dL (74-106); Magnesium 1.5 mg/dL (1.6-2.6); Potassium 3.7 mmol/L (3.5-5.1); Sodium Level 141 mmol/L (136-145)
[2019-06-14 07:05] VITALS: O2SAT 94
[2019-06-14 07:05] LABS: Bedside Glucose 103 mg/dL (70-110)
[2019-06-14] MEDS: Multivitamins,Ther W-Minerals Tablet 1 TABLET PO (09:03)
[2019-06-14] MEDS: Tolterodine Tartrate 4 MG CAP.SA PO (09:04)
[2019-06-14] MEDS: Aspirin 81 MG TAB.CHEW PO (09:04)
[2019-06-14] MEDS: Escitalopram Oxalate 10 MG Tablet 20 MG PO (09:05)
--- NOTE | 2019-06-14 10:20 | CASEMGMT ---
RN NUZHAT Face to Face with patient for initial transition planning/care coordination assessment. RN CM introduced self and role at [facility]. Patient lying in bed, alert and oriented. Patient willing to participate in assessment and is able to answer all questions appropriately. Care providers, pharmacy, and demographics verified. Patient not sure where she will go at discharge, home with HHC or SNF. Patient states she has no further needs or concerns at this time. CM to follow for discharge planning needs that may arise. PCP: Matheus Specialists: Bernardo, pain; Jenny, science editor; Dillon, Urology Preferred Pharmacy: [facility] Insurance: [facility], [place] Prescription Benefit: yes Living Will/HPOA: yes, Supervisory Cbp Officer Dennis GALLO LNOK: sister, nephew Living Arrangements: Patient lives with sister, nephew and nephew's in one story home. Ramp to enter the home. Patient independent at home. Transportation: self/family DME/HHC: Patient has shower chair, raised toilet, cane, grab bars, walker, rollator, and bipap at home. [facility] and [facility] in the past. If SNF needed [facility] to go [facility] sister is currently at. Disposition Plan: DUSTIN SALMERON, RN, CM
[2019-06-14] MEDS: amLODIPine 10 MG Tablet PO (10:21)
[2019-06-14] MEDS: Montelukast 10 MG Tablet PO (10:21)
[2019-06-14] MEDS: Enoxaparin 40 MG/0.4 ML Syringe SC (10:21)
[2019-06-14] MEDS: buPROPion (SR) 150 MG Tablet.SA PO ×2 (10:21→21:05)
[2019-06-14] MEDS: Famotidine 20 MG Tablet PO (10:21)
[2019-06-14] MEDS: Lidocaine 5% Patch 1 PATCH TOPICAL (10:21)
[2019-06-14 10:25] VITALS: PULSE 76
[2019-06-14 11:30] LABS: Bedside Glucose 141 mg/dL (70-110)
[2019-06-14 11:49] VITALS: BP 128/75; PULSE 67; RESP 18; TEMP 36.7; O2SAT 92
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
[2019-06-14] MEDS: Ferrous Sulfate 325 MG Tablet PO ×2 (12:37→17:15)
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
[2019-06-14 16:19] VITALS: BP 125/70; PULSE 74; RESP 18; TEMP 36.6; O2SAT 92
[2019-06-14 16:50] LABS: Bedside Glucose 125 mg/dL (70-110)
[2019-06-14] MEDS: Atorvastatin Calcium 10 MG Tablet 5 MG PO (21:05)
[2019-06-14] MEDS: Gabapentin 300 MG Capsule 600 MG PO (21:05)
[2019-06-14 21:21] LABS: Bedside Glucose 182 mg/dL (70-110)
[2019-06-14 22:15] VITALS: BP 149/77; PULSE 72; RESP 20; TEMP 37.2; O2SAT 94
[2019-06-15] VITALS (7 sets, daily range): BP systolic 128–151; BP diastolic 63–76; PULSE 62–81; RESP 16–18; TEMP 36.3–36.8; O2SAT 87–97
--- NOTE | 2019-06-15 04:46 | CPS ---
PT DIDNT WANT TO WEAR CPAP TONIGHT.
[2019-06-15] MEDS: Ketorolac 15 MG/ML Vial IV (05:30)
[2019-06-15 07:00] LABS: Bedside Glucose 106 mg/dL (70-110)
--- NOTE | 2019-06-15 08:48 | NURSING ---
This RN spoke with therapy this AM in regard to order for immobilizer. Notified that pt insurance will pay for either an immobilizier OR a TROM but not both. Notified by therapy that [facility] wanted a TROM. Notified by therapy that if this is the case they should provide today.
[2019-06-15] MEDS: Aspirin 81 MG TAB.CHEW PO (10:41)
[2019-06-15] MEDS: Ferrous Sulfate 325 MG Tablet PO ×2 (10:41→17:27)
[2019-06-15] MEDS: Multivitamins,Ther W-Minerals Tablet 1 TABLET PO (10:41)
[2019-06-15] MEDS: Montelukast 10 MG Tablet PO (10:41)
[2019-06-15] MEDS: amLODIPine 10 MG Tablet PO (10:42)
[2019-06-15] MEDS: Famotidine 20 MG Tablet PO (10:42)
[2019-06-15] MEDS: Furosemide 20 MG Tablet PO (10:43)
[2019-06-15] MEDS: Escitalopram Oxalate 10 MG Tablet 20 MG PO (10:43)
[2019-06-15] MEDS: Enoxaparin 40 MG/0.4 ML Syringe SC (10:43)
[2019-06-15] MEDS: Tolterodine Tartrate 4 MG CAP.SA PO (10:43)
[2019-06-15] MEDS: buPROPion (SR) 150 MG Tablet.SA PO ×2 (10:44→22:25)
[2019-06-15] MEDS: Lidocaine 5% Patch 1 PATCH TOPICAL (10:44)
[2019-06-15] MEDS: Insulin Lispro 100 UNIT/ML INSULN.PEN SC ×2 (10:55→22:25)
[2019-06-15 11:05] LABS: Bedside Glucose 169 mg/dL (70-110)
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
[2019-06-15 15:55] LABS: Bedside Glucose 118 mg/dL (70-110)
[2019-06-15] MEDS: Gabapentin 300 MG Capsule 600 MG PO (22:27)
[2019-06-15] MEDS: Atorvastatin Calcium 10 MG Tablet 5 MG PO (22:28)
[2019-06-15 22:35] LABS: Bedside Glucose 161 mg/dL (70-110)
[2019-06-16 03:00] VITALS: BP 136/65; PULSE 80; RESP 16; TEMP 36.7; O2SAT 97
[2019-06-16 06:36] LABS: Bedside Glucose 103 mg/dL (70-110)
[2019-06-16 07:36] VITALS: O2SAT 96
[2019-06-16 09:00] VITALS: BP 97/80; PULSE 75; RESP 16; TEMP 36.7; O2SAT 92
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
[2019-06-16] MEDS: Lidocaine 5% Patch 1 PATCH TOPICAL (10:15)
[2019-06-16] MEDS: Famotidine 20 MG Tablet PO (10:15)
[2019-06-16] MEDS: Montelukast 10 MG Tablet PO (10:15)
[2019-06-16] MEDS: Tolterodine Tartrate 4 MG CAP.SA PO (10:16)
[2019-06-16] MEDS: Aspirin 81 MG TAB.CHEW PO (10:16)
[2019-06-16] MEDS: Escitalopram Oxalate 10 MG Tablet 20 MG PO (10:16)
[2019-06-16] MEDS: buPROPion (SR) 150 MG Tablet.SA PO ×2 (10:16→21:58)
[2019-06-16] MEDS: Multivitamins,Ther W-Minerals Tablet 1 TABLET PO (10:17)
[2019-06-16] MEDS: Enoxaparin 40 MG/0.4 ML Syringe SC (10:17)
[2019-06-16] MEDS: Insulin Lispro 100 UNIT/ML INSULN.PEN SC (10:45)
--- NOTE | 2019-06-16 10:49 | NURSING ---
immobilizer brought in and applied at this time
[2019-06-16 10:55] LABS: Bedside Glucose 254 mg/dL (70-110)
[2019-06-16] MEDS: Ferrous Sulfate 325 MG Tablet PO ×2 (12:17→18:02)
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
[2019-06-16 13:31] LABS: Anion Gap 3 (5-15); BUN 20 mg/dL (7-18); BUN/Creat Ratio 24.8 RATIO (10-20); Chloride 110 mmol/L (98-107); Creatinine, Serum 0.81 mg/dL (0.55-1.02); EST Glomerular Filtration Rate 75 mL/min (>60); Est Glom Filt Rate - Afr Amer 90 mL/min (>60); Estimated Creatinine Clearance 55.81 ml/min; Glucose 241 mg/dL (74-106); Magnesium 1.7 mg/dL (1.6-2.6); Potassium 4.5 mmol/L (3.5-5.1); Sodium Level 143 mmol/L (136-145)
[2019-06-16 16:00] VITALS: BP 123/61; PULSE 71; RESP 16; TEMP 36.5; O2SAT 95
[2019-06-16 16:16] LABS: Bedside Glucose 90 mg/dL (70-110)
[2019-06-16] MEDS: Menthol/Lanolin/Calamine/Znox 113 GM Tube 1 APPLIC TOPICAL (18:01)
[2019-06-16] MEDS: Sodium Chloride 0.65% 1 SPRAY SPRAY.BTL NASAL (18:01)
[2019-06-16] MEDS: Nystatin Powder 15gm Bottle 1 APPLIC TOPICAL ×2 (18:13→21:53)
[2019-06-16 21:32] VITALS: BP 151/80; PULSE 64; RESP 16; TEMP 36.7; O2SAT 94
[2019-06-16] MEDS: Atorvastatin Calcium 10 MG Tablet 5 MG PO (21:56)
[2019-06-16] MEDS: Gabapentin 300 MG Capsule 600 MG PO (21:57)
[2019-06-16 22:07] LABS: Bedside Glucose 149 mg/dL (70-110)
[2019-06-17 02:15] VITALS: BP 137/69; PULSE 65; RESP 18; TEMP 36.9; O2SAT 94
[2019-06-17] MEDS: Nystatin Powder 15gm Bottle 1 APPLIC TOPICAL (06:50)
[2019-06-17 07:16] LABS: Bedside Glucose 94 mg/dL (70-110)
[2019-06-17 07:37] VITALS: BP 118/73; PULSE 62; RESP 16; TEMP 36.6; O2SAT 93
[2019-06-17] MEDS: Aspirin 81 MG TAB.CHEW PO (08:00)
[2019-06-17] MEDS: Multivitamins,Ther W-Minerals Tablet 1 TABLET PO (08:00)
[2019-06-17] MEDS: Menthol/Lanolin/Calamine/Znox 113 GM Tube 1 APPLIC TOPICAL (09:28)
[2019-06-17] MEDS: Tolterodine Tartrate 4 MG CAP.SA PO (09:28)
[2019-06-17] MEDS: Escitalopram Oxalate 10 MG Tablet 20 MG PO (09:29)
[2019-06-17] MEDS: Enoxaparin 40 MG/0.4 ML Syringe SC (09:30)
[2019-06-17] MEDS: Lidocaine 5% Patch 1 PATCH TOPICAL (09:30)
[2019-06-17] MEDS: Famotidine 20 MG Tablet PO (09:31)
[2019-06-17] MEDS: amLODIPine 10 MG Tablet PO (09:31)
[2019-06-17] MEDS: Montelukast 10 MG Tablet PO (09:32)
[2019-06-17] MEDS: buPROPion (SR) 150 MG Tablet.SA PO (09:32)
--- NOTE | 2019-06-17 11:15 | CASEMGMT ---
Social Work Note Pt is discharging to [facility] [place] today. KEVIN faxed completed discharge paperwork to [facility] [place] including transfer to extended care facility, signed medication list and any scripts. Original in SNF folder and copy on pt's chart. KEVIN spoke with RN who states pt can be transported via cot due to having to keep knee straight. KEVIN placed a call to [facility] and arranged transportation via cot for 12:00pm. Transportation form completed and placed on SNF folder and copy on pt's chart. RN and pt updated on transportation time. KEVIN placed a call to Lyly at [facility] [place] and updated her on transportation time. Plan: Discharge to [facility] today skilled with [facility] transporting via cot at 12:00pm [place] [facility]
[2019-06-17 11:26] LABS: Bedside Glucose 147 mg/dL (70-110)
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
== END 2019-06-17 12:07 | disposition skilled nursing facility (03) | DRG 563 ==
LOC: ED 15:03 → MS3 15:19
PROVIDERS: Nurse Practitioner Family; Admitting Provider Family Medicine; Emergency Provider Emergency Medicine; Family Provider Family Medicine Geriatric Medicine; PCP Family Medicine Geriatric Medicine; Referring Provider Family Medicine; Visit Provider Hospitalist
DX: S82.034A Nondisplaced transverse fracture of right patella, initial encounter for closed fracture (principal); E78.5 Hyperlipidemia, unspecified; E11.9 Type 2 diabetes mellitus without complications; M21.371 Foot drop, right foot; V43.52XA Car driver injured in collision with other type car in traffic accident, initial encounter; Y92.410 Unspecified street and highway as the place of occurrence of the external cause; D63.8 Anemia in other chronic diseases classified elsewhere; I35.0 Nonrheumatic aortic (valve) stenosis; L89.151 Pressure ulcer of sacral region, stage 1; Z68.30 Body mass index [BMI] 30.0-30.9, adult; Z98.84 Bariatric surgery status; I10 Essential (primary) hypertension; I27.20 Pulmonary hypertension, unspecified; G47.33 Obstructive sleep apnea (adult) (pediatric); I73.9 Peripheral vascular disease, unspecified; E66.9 Obesity, unspecified; Z87.891 Personal history of nicotine dependence
CPT/HCPCS: 36415; 71046; 73552; 73564; 80048; 81001; 82962; 83735; 85025; 94660; 97110; 97162; 97166; 97530; 97535; 97802; 99251; 99285; A4216; G0463

== ENCOUNTER → 2019-09-22 15:15 | Outpatient (CLI) | payer MEDICARE, OTHER, SELFPAY ==
[2019-07-07 00:34] VITALS: BMI 30.3
[2019-09-22 16:16] LABS: Hemoglobin 15.3 g/dL (12.0-15.0); Red Blood Count 5.25 M/mm3 (4.2-5.4); White Blood Count 5.3 K/mm3 (4.4-11.0)
[2019-09-22 16:17] LABS: Absolute Lymphocyte Count 1.35 X10^3/uL (0.83-4.51); Absolute Neutrophil Count 3.2 X10^3/uL (2.0-7.7); Basophil# 0.03 X10^3/uL; Basophil% 0.6 % (0-1); Eosinophil# 0.11 X10^3/uL; Eosinophils% 2.1 % (0-5); Hematocrit 48.8 % (37-47); Lymphocyte # 1.35 X10^3/ul (4.0); Lymphocyte % 25.5 % (19-41); Mean Corp Hgb Conc 31.4 g/dL (32-36); Mean Corpuscular Hgb 29.1 pg (27.0-32.0); Mean Platelet Vol. 11.3 fl (6.2-12.0); Monocyte# 0.56 X10^3/uL; Monocyte% 10.6 % (0-10); NRBC Flagged by Analyzer 0 % (0-5); Neutrophil # 3.23 X10^3/uL (2.7-7.7); Neutrophil % 60.8 % (47-70); Platelet Count 132 K/mm3 (150-450); RBC Distribution Width CV 13.3 % (11.6-14.6); RBC Distribution Width SD 45.7 fl (35.1-43.9)
[2019-09-22 17:09] LABS: ALB/GLOB Ratio 0.9 RATIO (0.9-2.4); AST(SGOT) 58 U/L (15-37); Alanine Aminotransfer ALT/SGPT 75 U/L (13-56); Albumin, Serum 3.3 g/dL (3.2-5.0); Alkaline Phosphatase 197 U/L (45-117); Anion Gap 5 (5-15); BUN 16 mg/dL (7-18); BUN/Creat Ratio 20.4 RATIO (10-20); Calcium,Total 8.8 mg/dL (8.5-10.1); Chloride 104 mmol/L (98-107); Creatinine, Serum 0.79 mg/dL (0.55-1.02); EST Glomerular Filtration Rate 77 mL/min (>60); Est Glom Filt Rate - Afr Amer 93 mL/min (>60); Globulin 3.7 g/dL (2.2-4.2); Glucose 124 mg/dL (74-106); Potassium 3.5 mmol/L (3.5-5.1); Sodium Level 140 mmol/L (136-145)
== END ==
PROVIDERS: PCP Family Medicine Geriatric Medicine; Visit Provider Family Medicine Geriatric Medicine
DX: E11.9 Type 2 diabetes mellitus without complications (principal); I10 Essential (primary) hypertension
CPT/HCPCS: 36415; 80053; 84443; 85025

== ENCOUNTER → 2019-12-16 | Outpatient (CLI) | payer MEDICARE, OTHER, SELFPAY ==
[2019-10-25 15:28] VITALS: BMI 35.4
== END | disposition home or self-care (01) ==
LOC: LABSPEC 16:12
PROVIDERS: PCP Family Medicine Geriatric Medicine; Referring Provider Urology; Visit Provider Urology
DX: R82.998 Other abnormal findings in urine (principal)
CPT/HCPCS: 87077; 87086; 87088; 87186

== ENCOUNTER → 2019-12-21 11:46 | Outpatient (CLI) | payer MEDICARE, OTHER, SELFPAY ==
[2019-07-07 00:34] VITALS: BMI 30.3
[2019-10-25 15:28] VITALS: BMI 35.4
[2019-12-21 12:32] LABS: Absolute Lymphocyte Count 1.31 X10^3/uL (0.83-4.51); Absolute Neutrophil Count 4.1 X10^3/uL (2.0-7.7); Basophil# 0.04 X10^3/uL; Basophil% 0.6 % (0-1); Eosinophil# 0.12 X10^3/uL; Eosinophils% 1.9 % (0-5); Hematocrit 42.6 % (37-47); Hemoglobin 13.7 g/dL (12.0-15.0); Lymphocyte # 1.31 X10^3/ul (4.0); Lymphocyte % 21.1 % (19-41); Mean Corp Hgb Conc 32.2 g/dL (32-36); Mean Corpuscular Hgb 29.3 pg (27.0-32.0); Mean Platelet Vol. 10.9 fl (6.2-12.0); Monocyte# 0.66 X10^3/uL; Monocyte% 10.6 % (0-10); NRBC Flagged by Analyzer 0 % (0-5); Neutrophil # 4.07 X10^3/uL (2.7-7.7); Neutrophil % 65.5 % (47-70); Platelet Count 148 K/mm3 (150-450); RBC Distribution Width CV 14.9 % (11.6-14.6); RBC Distribution Width SD 49.1 fl (35.1-43.9); Red Blood Count 4.68 M/mm3 (4.2-5.4); White Blood Count 6.2 K/mm3 (4.4-11.0)
[2019-12-21 12:50] LABS: Vitamin D,25 Hydroxy 41.1 ng/mL
[2019-12-21 12:56] LABS: ALB/GLOB Ratio 0.8 RATIO (0.9-2.4); AST(SGOT) 31 U/L (15-37); Alanine Aminotransfer ALT/SGPT 51 U/L (13-56); Albumin, Serum 2.6 g/dL (3.2-5.0); Alkaline Phosphatase 205 U/L (45-117); Anion Gap 7 (5-15); BUN 20 mg/dL (7-18); BUN/Creat Ratio 25.3 RATIO (10-20); Calcium,Total 8.2 mg/dL (8.5-10.1); Chloride 108 mmol/L (98-107); Creatinine, Serum 0.79 mg/dL (0.55-1.02); EST Glomerular Filtration Rate 76 mL/min (>60); Est Glom Filt Rate - Afr Amer 92 mL/min (>60); Globulin 3.4 g/dL (2.2-4.2); Glucose 119 mg/dL (74-106); Potassium 3.8 mmol/L (3.5-5.1); Sodium Level 143 mmol/L (136-145); Thyroid Stim Hormone (TSH) 1.42 uIU/mL (0.358-3.74)
== END ==
PROVIDERS: PCP Family Medicine Geriatric Medicine; Visit Provider Family Medicine Geriatric Medicine
DX: K76.9 Liver disease, unspecified (principal); E11.9 Type 2 diabetes mellitus without complications; I10 Essential (primary) hypertension; E55.9 Vitamin D deficiency, unspecified
CPT/HCPCS: 36415; 80053; 82306; 84443; 85025

== ENCOUNTER 2020-01-05 06:19 | Day surgery (SDC) | payer MEDICARE, OTHER, SELFPAY ==
[2019-10-25 15:28] VITALS: BMI 35.4
[2020-01-05] VITALS (7 sets, daily range): BP systolic 123–161; BP diastolic 63–70; PULSE 65–70; RESP 16; TEMP 36.2–36.8; O2SAT 93–97; BMI 33.9
[2020-01-05 06:56] LABS: Bedside Glucose 102 mg/dL (70-110)
[2020-01-05] MEDS: Lactated Ringers 1,000 ML 100 ML IV (07:01)
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
--- NOTE | 2020-01-05 08:25 | DCINST_ITS ---
Discharge Diet: Light diet - advance as tolerated Discharge Activity: Return to Normal Activity Call your doctor if you observe: Fever of 101 or Higher Suture Line Care: Avoid Pulling/Pushing, Avoid Pinching/Bending Allergies/Adverse Reactions: Allergies lisinopril Adverse Reaction (Intermediate, Verified 01/05/20 06:54) Unknown penicillin G Adverse Reaction (Intermediate, Verified 01/05/20 06:54) Unknown exenatide [From [place]] Adverse Reaction (Unknown, Verified 01/05/20 06:54) Unknown Medications to take at Discharge Aspirin [Aspirin, Baby] 81 mg PO DAILY@0800 03/24/15 Escitalopram Oxalate [Lexapro] 20 mg PO DAILY 03/24/15 Montelukast [Singulair] 10 mg PO DAILY 03/24/15 Multivitamins,Ther W-Minerals [Multivitamin With Minerals (BKC)] 1 tab PO DAILY 03/24/15 gabapentin 300 mg capsule 600 mg PO QHS cap 10/20/17 Oxybutynin Chloride [Ditropan Xl] 15 mg PO DAILY 03/30/18 Acetaminophen [Tylenol Tablet] 650 mg PO Q6H PRN PRN tab 07/21/18 Loperamide [Imodium] 2 mg PO Q4H PRN PRN #0 cap 07/21/18 Pilocarpine HCl 5 mg PO TID #0 07/21/18 Ferrous Sulfate 325 mg PO BID #60 tab 09/24/18 cholecalciferol (vitamin D3) 50 mcg (2,000 unit) capsule 2,000 unit PO DAILY 10/07/18 famotidine 40 mg tablet 20 mg PO DAILY tab 10/07/18 simvastatin 10 mg tablet 10 mg PO QHS 10/07/18 Furosemide [Lasix] 20 mg PO QODAY 12/30/18 Bupropion HCl [Bupropion HCl Sr] 150 mg PO BID 04/01/19 Primary Care Physician: Albert Jarvis Chi, MD [Primary Care Provider] - Test Results: Test results from this visit will be discussed in further detail at your follow- up appointment, if applicable. Please Follow Up With: Dwain Carranza MD When: in 4 weeks, please call to make an appointment.
[2020-01-05] MEDS: Cefazolin 2 GM in 0.9% Normal Saline 100 ML IV (08:29)
--- NOTE | 2020-01-05 08:54 | PCM.OPRPT ---
Problem List (1) Overactive bladder Status: Acute Report of Operation Date of Procedure: 01/05/20 Pre-Operative Diagnosis: Overactive bladder refractory to medical therapy Post-Operative Diagnosis: The same Surgery/Procedure Performed:: Cystoscopy injection of Botox into the bladder 200 units Description of Surgical Findings:: 69-year-old female with refractory overactive bladder comes back to the operating room today for injection of Botox in her bladder we have done Botox injection the past and she is done really well with them last injection is worn off and over 6 months since her last injection. She is failed medical therapy in the past. She is taken back to the operating room at the smooth induction of general anesthesia she was placed upon the table the urethra vaginally are prepped and draped in usual sterile fashion. 200 units of Botox were repaired in the back table in standard fashion. I then went in the bladder with a 19 [place] rigid cystourethroscope with a straight offset scope. Used a Botox needle and injected 200 units into the back of the bladder between 10 and 20 units/inj. and multiple sites of the back of the bladder. There was minimal bleeding after the injection I then drained the bladder patient anesthetic was reversed and she is taken back to PACU in good condition. Type of Anesthesia:: General Drains: none - Admit VTE Documentation VTE Present on Admission: No VTE Mechan Device Prophylaxis: SCD's
== END 2020-01-05 10:26 | disposition home or self-care (01) ==
LOC: SDC 06:21 → AC 06:24
PROVIDERS: Anesthesiology; PCP Family Medicine Geriatric Medicine; Referring Provider Urology; Visit Provider Urology
PROC: 3E0K8GC Introduction of Other Therapeutic Substance into Genitourinary Tract, Via Natural or Artificial Opening Endoscopic (ICD-10-PCS; CPT 52287; principal; 2020-01-05 08:00)
DX: N32.81 Overactive bladder (principal); Z11.59 Encounter for screening for other viral diseases; E11.51 Type 2 diabetes mellitus with diabetic peripheral angiopathy without gangrene; I10 Essential (primary) hypertension; I87.2 Venous insufficiency (chronic) (peripheral); I27.29 Other secondary pulmonary hypertension; I35.0 Nonrheumatic aortic (valve) stenosis; E78.5 Hyperlipidemia, unspecified; J45.909 Unspecified asthma, uncomplicated; G47.33 Obstructive sleep apnea (adult) (pediatric); R13.10 Dysphagia, unspecified; K21.9 Gastro-esophageal reflux disease without esophagitis; F32.9 Major depressive disorder, single episode, unspecified; F41.9 Anxiety disorder, unspecified; E66.9 Obesity, unspecified; Z68.33 Body mass index [BMI] 33.0-33.9, adult; Z79.82 Long term (current) use of aspirin; Z79.899 Other long term (current) drug therapy; Z78.0 Asymptomatic menopausal state; Z87.891 Personal history of nicotine dependence; Z96.652 Presence of left artificial knee joint; Z98.84 Bariatric surgery status; Z90.49 Acquired absence of other specified parts of digestive tract
CPT/HCPCS: 52287; 82962; 87635; G2023; J7120; J0585; J2405; U0003

== ENCOUNTER 2020-02-11 07:08 | Emergency (ER) | payer MEDICARE, OTHER, SELFPAY ==
[2020-01-05 06:54] VITALS: BMI 33.9
[2020-02-11 07:09] VITALS: BP 163/99; PULSE 72; RESP 16; TEMP 36.9; O2SAT 96; BMI 33.5
--- NOTE | 2020-02-11 07:13 | ED.DCSUM_ITS ---
History of Present Illness Chief Complaint: Fall Informant: Patient Onset: Today Narrative: 69-year-old female presenting for evaluation of left leg laceration as well as head injury. Patient states that she was trying to get out of bed and she missed her Rollator and she fell to the floor striking her leg on the Rollator. She states she hit her head on the nightstand. She did not lose consciousness. She does not feel lightheaded or dizzy. She does not have any change in vision. She has no nausea or vomiting. She states that once EMS arrived she was able to stand. State at baseline she would not be able to get up off of the floor. She was not on the floor for an extended period of time. Past Medical History - Allergies and Home Meds Allergies/Adverse Reactions: Allergies lisinopril Adverse Reaction (Intermediate, Verified 02/11/20 07:16) Unknown penicillin G Adverse Reaction (Intermediate, Verified 02/11/20 07:16) Unknown exenatide [From [place]] Adverse Reaction (Unknown, Verified 02/11/20 07:16) Unknown Primary Care Physician: Albert Jarvis Chi, MD [Primary Care Provider] - Surgical History: cholecystectomy, gastric bypass, total knee arthroplasty, - - Hernia repair, partial colectomy, ORIF distal femoral fracture Smoking Status: Former smoker - Family History Maternal Family History: Family History (Last Reviewed 10/25/19 @ 15:33 by Rose Mary Taylor) Sister CAD (coronary artery disease) Hx of CABG Family History: Reports: - - Denies known maternal cardiac history. Paternal Family History: Family History (Last Reviewed 10/25/19 @ 15:33 by Rose Mary Taylor) Sister CAD (coronary artery disease) Hx of CABG Family History: Reports: - - Denies known paternal cardiac history. Sibling Family History: Family History (Last Reviewed 10/25/19 @ 15:33 by Rose Mary Taylor) Sister CAD (coronary artery disease) Hx of CABG Family History: Reports: Heart Disease Review of Systems General: Denies: Chills, Fever Eyes: Denies: Visual changes - bilaterally, Diplopia ENT: Denies: Rhinorrhea, Sore throat Cardiovascular: Denies: Chest pain, Palpitations Respiratory: Denies: Dyspnea, Cough, Dyspnea on exertion Musculoskeletal: Denies: Myalgias, Arthralgias Skin: Reports: - - Laceration left tibia Neurological: Denies: Headache Hematologic: Denies: Easy bruising, Easy bleeding Physical Exam Vital Signs/Narrative: Vital Signs Temp Pulse Resp BP Pulse Ox 02/11/20 07:09 98.4 F 72 16 163/99 H 96 General: Negative for: Well nourished, Well developed Head: Normocephalic, Atraumatic Eyes: Negative for: Perrl, EOMI ENT: Moist mucous membranes Cardiovascular: Regular rate, Regular rhythm Respiratory: No distress Back: Nontender Extremities: - - No tenderness to palpation over left leg laceration. Skin: - - Triangular-shaped skin avulsion on left tibia. There is no active bleeding. No tendons are exposed. The skin flap is 3 cm. Diagnostic/Tx/Re-eval Clinical Impression(s) from Imaging Studies Brain CT 02/11/20 07:38 IMPRESSION: Chronic involutional changes of the brain. Electronically Signed: Bandar Mike, at 8:47 EDT , Service support , - Medical Decision Making Patient presents with laceration to the left leg. She states she is ambulatory does not have concern for fracture. Tetanus is updated in the ED today. Since the patient hit her head I did get a CAT scan of her brain which is negative. Patient's wound was partly skin tear partly deeper. I was able to approximate the skin and the deeper tissue and pulled the wound together. Please see procedure note. Patient tolerated procedure well. S wound care instructions and return precautions. She is stable for discharge at this time Impression: 1. Mechanical fall 2. 3 cm triangular skin laceration Procedures - Lacerations No standard instances Depth: Fascia Shape: triangular Prep: Sterile Conditions, Chlorhexadine Laceration repair: Irrigated, Lidocaine with epi, Skin sutures Irrigated (ml): 500 Number of Sutures/[place]: 7 Suture Information: Ethilon, Simple, - - 3-0 ED Disposition - Plan for ED Patient: Disposition: Home or Assisted Living Instructions: ED Mechanical Fall, ED AVULSION LACERATION Referrals: Albert Jarvis Chi, MD [Primary Care Provider] -
--- NOTE | 2020-02-11 07:38 | CT_ITS ---
STUDY: CT BRAIN WITHOUT CONTRAST REASON FOR EXAM: Female, 69 years old. PT STATED FALL TODAY, HX HTN RADIATION DOSAGE (If Supplied By Facility): CTDIvol = ( 44.99 ) mGy, DLP = ( 796.11 ) mGycm TECHNIQUE: Transaxial CT imaging of the brain was performed without administration of intravenous contrast material. Individualized dose optimization techniques were used for this CT. COMPARISON: Comparison is made with prior study dated 07/18/2018. FINDINGS: Normal soft tissue structures. Normal calvarium. There is mild cerebral atrophy with widening of the extra-axial spaces and ventricular dilatation. There are areas of decreased attenuation within the white matter tracts of the supratentorial brain, consistent with microvascular disease changes. Normal basal ganglia and thalami. Normal brainstem. Normal cerebellum. There is no intracranial hemorrhage. There are no findings of an acute ischemic infarction. Atherosclerotic calcification of the vertebral arteries and cavernous portions of the internal carotid arteries bilaterally. Normal visualized paranasal sinuses. CT/Brain/Head without Contrast IMPRESSION: Chronic involutional changes of the brain. Electronically Signed: Bandar Mckeon, at 8:47 EDT , Service support ,
[2020-02-11] MEDS: Lidocaine/Epi/Tetracaine 50 ML 1 APPLIC TOPICAL (07:57)
[2020-02-11] MEDS: Diphth,Pertuss(Acell),Tet Vac 0.5 ML Vial IM (09:56)
[2020-02-11 11:16] VITALS: BP 132/80; PULSE 72; RESP 16; O2SAT 98
== END 2020-02-11 11:39 | disposition home or self-care (01) ==
PROVIDERS: Emergency Provider Student in an Organized Health Care Education/Training Program; PCP Family Medicine Geriatric Medicine
DX: S09.90XA Unspecified injury of head, initial encounter (principal); S81.812A Laceration without foreign body, left lower leg, initial encounter; Z23 Encounter for immunization; W06.XXXA Fall from bed, initial encounter; Y93.9 Activity, unspecified; Y92.9 Unspecified place or not applicable; Y99.9 Unspecified external cause status; I27.20 Pulmonary hypertension, unspecified; I10 Essential (primary) hypertension; E11.9 Type 2 diabetes mellitus without complications; I34.2 Nonrheumatic mitral (valve) stenosis; I35.0 Nonrheumatic aortic (valve) stenosis; D64.9 Anemia, unspecified; G47.33 Obstructive sleep apnea (adult) (pediatric); K21.9 Gastro-esophageal reflux disease without esophagitis; F32.9 Major depressive disorder, single episode, unspecified; Z79.82 Long term (current) use of aspirin; Z79.899 Other long term (current) drug therapy; Z87.891 Personal history of nicotine dependence; Z98.84 Bariatric surgery status
CPT/HCPCS: 12002; 70450; 90715; 99285

== ENCOUNTER → 2020-02-25 11:09 | Outpatient (CLI) | payer MEDICARE, OTHER, SELFPAY ==
[2020-02-11 07:09] VITALS: BMI 33.5
[2020-02-25 13:06] LABS: Anion Gap 3 (5-15); BUN 18 mg/dL (7-18); BUN/Creat Ratio 25.3 RATIO (10-20); Calcium,Total 8.2 mg/dL (8.5-10.1); Chloride 107 mmol/L (98-107); Creatinine, Serum 0.71 mg/dL (0.55-1.02); EST Glomerular Filtration Rate 86 mL/min (>60); Est Glom Filt Rate - Afr Amer 104 mL/min (>60); Glucose 149 mg/dL (74-106); Potassium 3.9 mmol/L (3.5-5.1); Sodium Level 138 mmol/L (136-145)
[2020-02-25 14:34] LABS: M R Staph aureus DNA By PCR Negative (Negative); Probe Check PASS; Specimen Processing Control PASS; Staph aureus DNA By PCR POSITIVE (Negative)
== END ==
PROVIDERS: PCP Family Medicine Geriatric Medicine; Visit Provider Family Medicine Geriatric Medicine
DX: N17.9 Acute kidney failure, unspecified (principal); B95.62 Methicillin resistant Staphylococcus aureus infection as the cause of diseases classified elsewhere
CPT/HCPCS: 36415; 80048; 87070; 87077; 87186; 87205; 87640

== ENCOUNTER → 2020-11-21 14:37 | Outpatient (CLI) | payer MEDICARE, MEDICAID, SELFPAY ==
[2020-05-24 10:41] VITALS: BMI 33.5
[2020-11-15 12:53] VITALS: BMI 37.2
--- NOTE | 2020-11-21 14:42 | ECHOD_ITS ---
Reason For Study: MURMUR Procedure This was a 2D Doppler, Color Flow transthoracic echocardiogram. The study was technically difficult. Exam performed in department. Left Ventricle Normal LV size. Left ventricular systolic function is normal. The estimated ejection fraction is 55 %. Unable to assess diastolic dysfunction. No regional wall motion abnormalities noted. Right Ventricle Normal RV size. Normal systolic function. Atria The left atrium is severely enlarged. Normal right atrium. No doppler evidence for ASD. Mitral Valve There is moderate mitral annular calcification. Anterior leaflet diffuse mitral valve thickening. Moderate mitral valve stenosis. Mild (1+) mitral valve insufficiency. Tricuspid Valve Normal tricuspid valve. Mild tricuspid valve insufficiency. Right ventricular systolic pressure estimated to be 56 mmHg. Aortic Valve Trisinus/trileaflet aortic valve. Mild diffuse aortic valve thickening. Mild diffuse aortic valve calcification. Moderate focal aortic valve calcification. Severe aortic stenosis. Pulmonic Valve The pulmonic valve is not well visualized. Trivial pulmonic valve insufficiency. Great Vessels Borderline enlarged aortic root. Pericardium/Pleural No pericardial effusion. MMode/2D Measurements & Calculations LVIDd: 4.3 cm IVSd: 1.6 cm LVOT diam: 1.8 cm LVIDs: 3.2 cm LVPWd: 1.5 cm LVOT area: 2.4 cm2 RVDd: 3.1 cm FS: 25.3 % Ao root diam: 3.9 cm LAV(MOD-bp): 95.1 ml LA A4 area: 27.6 cm2 LAV(MOD-bp) Indexed: 48.5 ml/m2 LAV(MOD-sp2): 89.1 ml LAV(MOD-sp4): 95.3 ml LA dimension(2D): 5.8 cm RA A4 area: 13.7 cm2 Time Measurements MV dec time: 0.18 sec Doppler Measurements & Calculations MV E max debbie: 159.7 cm/sec MV V2 max: 146.8 cm/sec Ao V2 max: 232.1 cm/sec MV max P.7 mmHg Ao max P.8 mmHg MV V2 mean: 86.3 cm/sec Ao V2 mean: 187.1 cm/sec MV mean P.5 mmHg Ao mean P.1 mmHg MV V2 VTI: 27.7 cm Ao V2 VTI: 46.7 cm MVA(VTI): 0.86 cm2 PARVIZ(I,D): 0.51 cm2 PARVIZ(V,D): 0.62 cm2 LV V1 max: 58.6 cm/sec SV(LVOT): 23.9 ml PA V2 max: 109.1 cm/sec LV V1 max P.4 mmHg LV V1 mean P.79 mmHg LV V1 mean: 42.6 cm/sec LV V1 VTI: 9.8 cm PI end-d debbie: 216.0 cm/sec TR max debbie: 362.9 cm/sec TR max P.7 mmHg ECHO/Echo Complete Interpretation Summary The study was technically difficult. Left ventricular systolic function is normal. The estimated ejection fraction is 55 %. The left atrium is severely enlarged. There is moderate mitral annular calcification. Anterior leaflet diffuse mitral valve thickening. Moderate mitral valve stenosis. Mild (1+) mitral valve insufficiency. Mild tricuspid valve insufficiency. Severe aortic stenosis. (based upon aortic valve area) Trivial pulmonic valve insufficiency. Borderline enlarged aortic root. Right ventricular systolic pressure estimated to be 56 mmHg. Unable to assess diastolic dysfunction. Ordering Physician: Rose Mary Rivas/Imer Alvarado Referring Physician: THAIS HOUSE Performed By: Anitra Nielsen, MANI, RVT
--- NOTE | 2020-11-21 15:59 | EKG12_ITS ---
Test Reason : AFIB Blood Pressure : / mmHG Vent. Rate : 102 BPM Atrial Rate : 100 BPM P-R Int : 000 ms QRS Dur : 072 ms QT Int : 350 ms P-R-T Axes : 000 031 -17 degrees QTc Int : 456 ms Atrial fibrillation Abnormal ECG Confirmed by DAVINA BLACK, RAUL ([id number]), website/blog editor ALBERTO MANSFIELD ([id number]) on 11/22/2020 10:21:34 AM Referred By: Rose Mary Rivas Confirmed By:RAUL GHOSH MD
== END ==
PROVIDERS: PCP Family Medicine Geriatric Medicine; Referring Provider Physician Assistant Medical; Visit Provider Physician Assistant Medical
DX: I35.0 Nonrheumatic aortic (valve) stenosis (principal); I48.91 Unspecified atrial fibrillation
CPT/HCPCS: 93005; 93225; 93226; 93306

== ENCOUNTER 2020-12-12 08:45 | Day surgery (SDC) | payer MEDICARE, MEDICAID, SELFPAY ==
[2020-11-15 12:53] VITALS: BMI 37.2
--- NOTE | 2020-12-07 09:42 | RAD_ITS ---
INDICATION: Pre Cardiac cath EXAMINATION/TECHNIQUE: X-RAY - XR Chest 2 Views COMPARISON: 06/13/2019. FINDINGS: The lungs are clear. Tortuous and calcified thoracic aorta. The heart is not enlarged. Persistent elevation of the right hemidiaphragm. No pleural effusion or pneumothorax. Degenerative changes of the thoracic spine and shoulders. RAD/Chest PA and Lateral IMPRESSION: No acute radiographic abnormalities. Persistent elevation of the right hemidiaphragm. Electronically Signed: Tanner Shelton MD at 21:09 EDT Tel , Service support ,
[2020-12-08 14:16] VITALS: BMI 37.2
--- NOTE | 2020-12-11 18:25 | HP.PCM_ITS ---
History and Physical Date of Admission: 12/12/20 [facility] [id number], [place] [phone] OFFICE VISITDate of Service: 11/15/20 MR#:[id number]:[id number]: GARCÍA BURROWS ARe #:[id number]:[id number] Provider: JOSSELYN Reyes/Sex: 70/F Loc ation:BMS.WHGStatus:Signed HPI HPI History of Present Illness Details: This is a 70-year-old female that presents here today for a cardiovascular follow-up. She has a history of hypertension, hyperlipidemia and aortic stenosis. Pt is residing at the [facility]. She does note that she has swelling. She does not have any chest pain. She does not have any worsening SOB. She does not have any palpitations. She does not have any lightheadedness. She spends most of the time in the chair. She does get back injections at Dr. Chang. Intake Vital Signs 11/15/20 12:53 Height 5 ft 4 in Weight: 217 lb BMI 37.2 BP 130/90 H Blood Pressure Location Lt brachial Position Sitting Respiration 18 Pulse 91 Pulse Source Monitor Pulse Oximetry (%) 92 Intake Visit Reasons: 6 m fu Medical Representative Required: No Is patient in pain?: No Allergies lisinopril Adverse Reaction (Intermediate, Verified 11/15/20 12:52) Unknown penicillin G Adverse Reaction (Intermediate, Verified 11/15/20 12:52) Unknown exenatide [From Byetta] Adverse Reaction (Unknown, Verified 11/15/20 12:52) Unknown Medications escitalopram oxalate 20 mg PO DAILY 03/24/15 [History Confirmed 11/15/20] multivitamin,gt-prxc-oxexlvbq 1 tab PO DAILY 03/24/15 [History Confirmed 11/15/20] oxybutynin chloride 15 mg PO DAILY 03/30/18 [History Confirmed 11/15/20] acetaminophen 650 mg PO Q6H PRN PRN tab 07/21/18 [Rx Confirmed 11/15/20] cholecalciferol (vitamin D3) 50 mcg (2,000 unit) capsule 2,000 unit PO DAILY 10/07/18 [History Confirmed 11/15/20] famotidine 40 mg tablet 20 mg PO DAILY tab 10/07/18 [History Confirmed 11/15/20] atorvastatin 20 mg tablet 20 mg PO QHS 05/24/20 [History Confirmed 11/15/20] bisacodyl 10 mg rectal suppository 10 mg RC DAILY PRN 05/24/20 [History Confirmed 11/15/20] bupropion HCl 150 mg tablet,12 hr sustained-release 150 mg PO DAILY ea 05/24/20 [History Confirmed 11/15/20] gabapentin 300 mg capsule 600 mg PO BID cap 05/24/20 [History Confirmed 11/15/20] magnesium hydroxide 400 mg/5 mL oral suspension 30 ml PO DAILY PRN ml 05/24/20 [History Confirmed 11/15/20] furosemide 20 mg tablet 20 mg PO DAILY 11/15/20 [History Confirmed 11/15/20] metformin 500 mg tablet 500 mg PO DAILY 11/15/20 [History Confirmed 11/15/20] REPLACED BY [facility] Medical History (Updated 11/15/20 @ 14:18 by Rose Mary Rivas PA, PA) Anemia Depression Essential hypertension Femur fracture, left GERD (gastroesophageal reflux disease) Hyperlipidemia Mitral stenosis Nonrheumatic aortic (valve) stenosis Nonrheumatic aortic (valve) stenosis CHIDI (obstructive sleep apnea) Other secondary pulmonary hypertension Type 2 diabetes mellitus Surgical History History of cholecystectomy History of hernia repair History of partial colectomy History of total left knee replacement Family History Sister CAD (coronary artery disease) Hx of CABG Social History (Updated 05/24/20 @ 11:[address] Imer Alvarado MD) Smoking Status: Former smoker alcohol intake: never ROS Const Const: Positive for fatigue; Negative for weakness, fever(s) or headache(s) Eyes Eyes: Negative for blind spots, loss of peripheral vision or transient loss of vision ENT ENT: Positive for dizziness and balance problems; Negative for headache(s), tinnitus or Nosebleed/epistaxis Cardio Chest Pain: No Palpitations: No Edema: Bilateral Muscle aches with walking: None Resp Respiratory: Negative for SOB with activity, SOB at rest, SOB orthopnea\SOB lying down or Cough GI GI: Negative nausea, vomiting, heartburn or vomiting blood/hematemesis : Negative for hematuria Musc Musc: Positive for muscle aches/ myalgia, muscle weakness, joint pain and balance problems Neuro Neuro: Positive for dizziness and lightheadedness; Negative for near syncope, syncope, orthostatic symptoms, headache(s) or weakness Sabino Hematologic/Lymphatic: Negative for easy bleeding Endo Endo: Positive for fatigue Cardiology Exam Const Appearance: cooperative, no acute distress and well developed Orientation: alert, awake and oriented x3 Head Head: normocephalic and atraumatic Mouth: moist mucous membranes Eyes General: appearance normal, both eyes and all related structures Conjunctivae: conjunctivae normal Pupils: PERRL EOM: EOM intact bilaterally Neck Neck: normal visual inspection, no lymphadenopathy and no JVD Carotids: Negative bruit Neck Mass: Negative Neck mass Chest Chest inspection: normal inspection of the chest and symmetric chest movement Auscultation: Bilateral: Diminished Lung Sounds Cardio Palpation: normal PMI Rate: regular rate Rhythm: regular rhythm Heart sounds: S1 normal, S2 normal and murmur; Negative rub or gallop Murmur: Grade 3/6, harsh and mid systolic GI GI: normal to inspection, soft, no hepatosplenomegaly and bowel sounds present; Negative tender Neuro General: patient alert, patient awake, patient oriented x3, CN's II-XI intact bilaterally and moves all extremities Extremities Pulses: Normal: Right Posterior Tibial Pulse, Left Posterior Tibial Pulse, Right Radial Pulse and Left Radial Pulse Lower Extremity Edema: +1: Bilateral Psych Psychological: normal affect Assessment and Plan Assessment and Plan (1) Essential hypertension: Status: Chronic Plan - Rose Mary ARCOS PA: Blood pressure is well controlled on current medications, we do not recommend any changes at this time. (2) Hyperlipidemia: Status: Chronic Qualifiers: Hyperlipidemia type: unspecified Qualified Code(s): E78.5 - Hyperlipidemia, unspecified Plan - Rose Mary ARCOS, PA: Managed by PCP, she will continue with low intensity statin. (3) Nonrheumatic aortic (valve) stenosis: Status: Chronic Orders: Orders: Echo Complete Today Plan - Rose Mary ARCOS PA: She does have moderate stenosis, will obtain an echo to evaluate stability Plan Details Follow Up: 9 Months (PFM- please schedule echo today) Coding Level of Care Code Off vis,est,level 3 Diagnoses Essential hypertension I10 Hyperlipidemia E78.5 Hyperlipidemia type: unspecified Nonrheumatic aortic (valve) stenosis I35.0 Coding Level of Care Code Off vis,est,level 3 Diagnoses Essential hypertension I10 Hyperlipidemia E78.5 Hyperlipidemia type: unspecified Nonrheumatic aortic (valve) stenosis I35.0 Supplemental Info Supplemental Information Transthoracic echocardiogram: 07/20/2018 Interpretation Summary Normal LV size. Mild concentric left ventricular hypertrophy. Left ventricular systolic function is normal. The estimated ejection fraction is 60 %. Stage 1 diastolic dysfunction. Mild (1+) tricuspid valve insufficiency. Pulmonary artery systolic pressure is 34 mmHg. Transthoracic echocardiogram: 11/06/2017 Interpretation Summary Left ventricular systolic function is normal. The estimated ejection fraction is 60 %. The left atrium is severely enlarged. There is mild to moderate mitral annular calcification. Extension of the mitral annular calcification onto the posterior mitral valve leaflet. Mild diffuse mitral valve thickening. Mild (1+) mitral valve insufficiency. Mild tricuspid valve insufficiency. Mild to moderate aortic stenosis. Mild (1+) pulmonic valve insufficiency. The aortic root is not well visualized. Trivial pericardial effusion. There are no echocardiographic indications of cardiac tamponade. Right ventricular systolic pressure estimated to be 56 mmHg. Stage 2 diastolic dysfunction. Labs: No Data to Display Diagnostics: Chest X-Ray Pulmonary: No Data to Display 11/15/20 1419<Electronically signed by Rose Mary ARCOS>Date Rose Mary ARCOS Cosigner Signature:Date (if applicable) CC: ~ Addendum: 12-12-2020 Transthoracic echocardiogram: 11-21-2020 Interpretation Summary The study was technically difficult. Left ventricular systolic function is normal. The estimated ejection fraction is 55 %. The left atrium is severely enlarged. There is moderate mitral annular calcification. Anterior leaflet diffuse mitral valve thickening. Moderate mitral valve stenosis. Mild (1+) mitral valve insufficiency. Mild tricuspid valve insufficiency. Severe aortic stenosis. (based upon aortic valve area) Trivial pulmonic valve insufficiency. Borderline enlarged aortic root. Right ventricular systolic pressure estimated to be 56 mmHg. Unable to assess diastolic dysfunction. The patient's case was discussed and reviewed. The recommendation has been made for further evaluation with diagnostic cardiac catheterization. The procedure and risk were discussed with the patient. She was agreeable to this approach. The surgeon/proceduralist and patient have discussed in detail the risk of exposure to and/or potential harm posed by the COVID-19 virus with having a surgery/procedure at this time versus the risk of delaying the surgery/procedure. It is not possible to know either the risk of delaying the surgery or procedure or chance of getting an infection with perfect accuracy, but a joint decision was made between the patient and the surgeon/proceduralist to proceed at this time with the scheduled surgery/procedure as indicated on the consent form. I have re-examined the patient. There are no clinical changes since date of exam.
[2020-12-12 09:19] LABS: Anion Gap 3 (5-15); BUN 22 mg/dL (7-18); BUN/Creat Ratio 26.3 RATIO (10-20); Calcium,Total 8.8 mg/dL (8.5-10.1); Chloride 106 mmol/L (98-107); Creatinine, Serum 0.84 mg/dL (0.55-1.02); EST Glomerular Filtration Rate 71 mL/min (>60); Est Glom Filt Rate - Afr Amer 86 mL/min (>60); Estimated Creatinine Clearance 52.28 ml/min; Glucose 137 mg/dL (74-106); Potassium 3.7 mmol/L (3.5-5.1); Sodium Level 142 mmol/L (136-145)
[2020-12-12 11:31] LABS: Blood Gas Specimen Type VEN; VBG BASE EXCESS 3 mmol/L (-1.0-3.5); VBG Bicarbonate 28 mmol/L (22-26); VBG PO2 32 mmHg (25-40); VBG SO2 61 % (50-70); VBG TCO2 29 mmol/L (23-33); VBG pCO2 45.1 mmHg (41-51)
[2020-12-12 11:35] LABS: Blood Gas Specimen Type VEN; VBG BASE EXCESS 5 mmol/L (-1.0-3.5); VBG Bicarbonate 30 mmol/L (22-26); VBG PO2 35 mmHg (25-40); VBG SO2 63 % (50-70); VBG TCO2 32 mmol/L (23-33); VBG pCO2 52.6 mmHg (41-51); VBG pH 7.36 (7.32-7.42)
[2020-12-12 11:41] LABS: Blood Gas Specimen Type VEN; VBG BASE EXCESS 2 mmol/L (-1.0-3.5); VBG Bicarbonate 27 mmol/L (22-26); VBG PO2 34 mmHg (25-40); VBG SO2 64 % (50-70); VBG TCO2 29 mmol/L (23-33); VBG pCO2 46.3 mmHg (41-51); VBG pH 7.38 (7.32-7.42)
[2020-12-12 11:45] LABS: Base Excess 3 mmol/L (-2 to +2); Bicarbonate 27.6 mmol/L (22-26); Blood Gas Specimen Type ART; PO2 54 mmHG (75-100); SO2 88 % (95-99); Total Carbon Dioxide 29 mmol/L; pH 7.42 (7.35-7.45)
[2020-12-12 11:55] LABS: Blood Gas Specimen Type VEN; VBG BASE EXCESS 3 mmol/L (-1.0-3.5); VBG Bicarbonate 29 mmol/L (22-26); VBG PO2 36 mmHg (25-40); VBG SO2 67 % (50-70); VBG TCO2 30 mmol/L (23-33); VBG pCO2 48.3 mmHg (41-51); VBG pH 7.38 (7.32-7.42)
--- NOTE | 2020-12-12 12:28 | CL.D_ITS ---
Patient Name: GARCÍA BURROWS Study Date: 12/12/2020 Performing: Imer Alvarado MD Ht: 64.17 inches 163 cm : 1950 Wt: 216.05 lbs 98 kg Age: 70 Gender: female BSA: 2.03 PROCEDURE(S) PERFORMED [id number]/LHC/COR/LV CLINICAL PROFILE AND INDICATIONS Indications: Valvular Disease Heart Failure: None Stress/Imaging Stress/Image Study Performed: No Angina Classification Anginal Classification w/in 2 Weeks: No symptoms CAD Presentations: No Sxs, no angina. CONCLUSIONS Right heart pressures - severely elevated The patient has pulmonary hypertension which is severe. Intracardiac shunting: None Elevated Left Ventricular End Diastolic Pressure (mild) Normal LV size, wall motion,and systolic function LVEF: by LV gram 55 % Normal coronary arteries Aortic Valve Stenosis- Mild Mitral Valve Annular Calcification Moderate annular calcification Mitral Valve Stenosis Moderate RECOMMENDATIONS Risk factor modification Medical therapy DESCRIPTION OF PROCEDURE The patient arrived to the procedure lab. The risks and benefits of the procedure as well as a full d escription of our services here and current unavailability of surgical backup were fully explained to the patient and/or their significant other prior to the catheterization. The Timeout was completed, verifying the correct patient and procedure. The patient's procedural site was prepped and draped in the usual fashion. Local anesthetic was given subcutaneously to right groin region with Lidocaine 2%. Using a modified Seldinger technique, arterial access was obtained via the right femoral artery, a 4 Fr sheath was inserted Venous access was obtained via the right femoral vein, a 7Fr sheath was insert ed. A 7Fr thermal dilution catheter was inserted and right heart pressures were recorded, it was then advanced to PA position for cardiac outputs. Thermal dilution cardiac outputs were then recorded. O2 saturations were then obtained. Left Ventriculography was performed in VEGA projection using a 4 Fr. Pigtail catheter. Simultaneous pressures were then recorded. The Thermal dilution tracey ter was then removed. Left Coronary Artery selective angiography was performed in multiple views usin g a 4 Fr. JL5 catheter. Right Coronary Artery selective angiography was then performed in multiple vi ews using a 4 Fr. 3DRC catheter.The arterial sheath was pulled and manual compression applied until h emostasis is achieved.. The venous sheath was then pulled and manual compression applied until hemost asis achieved CORONARY ANGIOGRAPHY DOMINANCE: Right Dominant LEFT HEART ASSESSMENT Left Ventricular Ejection Fraction: by LV Gram 55 % Normal LV wall motion Elevated Left Ventricular End Diastolic Pressure LVEDP: 15 mmHg RIGHT HEART ASSESSMENT Thermal CO: 5.02 Thermal CI: 2.47 Joana CO: 7.22 Joana CI: 3.56 PW: /22 20 PA: 75/34 48 RV: 69/0 4 RA: /7 8 PVR: 446 SVR: 2263 Aortic Valve Area: 1.64 Aortic Valve Index: 0.81 Aortic Valve Mean Gradient: 21.8 Mitral Valve Area: 2.38 Mitral Valve index: 1.17 Mitral Valve Mean Gradient: 17 Right Heart pressures - elevated Pulmonary Hypertension Severe Intracardiac shunting: None LEFT ANTERIOR DESCENDING ARTERY: Angiographically normal CIRCUMFLEX ARTERY: Angiographically normal RIGHT CORONARY ARTERY: Angiographically normal VALVE FINDINGS: Aortic Valve Stenosis - mild Mitral Valve Calcification Moderate Mitral Valve Stenosis - moderate AORTIC ROOT: Angiographically normal COMPLICATIONS No Complications PROCEDURE MEDICATIONS Versed 1 mg IV SUMMARY OF HEMODYNAMIC DATA Time AIR REST ECG 09:24:00 RA /7 (8) SV 11:27:49 PA 75/34 (48) PA 11:31:24 PW /22 (20) PV 11:31:45 LV 214/-18, 10 11:36:58 PW /22 (20) 11:36:58 LV 216/-16, 15 11:37:05 PW /23 (20) 11:37:05 LV 203/-15, 2 11:38:46 PW /19 (16) 11:38:46 LV 206/-15, 4 11:38:53 PW /24 (19) 11:38:53 LVp 207/-11, 5 11:39:08 AOp 197/113 (147) 11:39:13 PA 72/28 (46) 11:39:59 RV 69/0, 4 11:40:22 RA /8 (6) 11:40:33 AO 186/114 (150) SA 11:46:04 Valve Area (c P-P/ms Time AIR REST Mitral 2.38 17.0 mn/266 ms5.0 pk/266 ms 11:37:05 Aortic 1.64 21.8 mn/208 ms10.0 pk/208 ms 11:39:08 Type SV CO (l/m) CI (l/m/ HR Time AIR REST Thermal 51.80 5.02 2.47 97 09:24:00 Joana 74.40 7.22 3.56 97 09:24:00 Label % O2 Pres/Loc Time AIR REST AO 88 PV 11:49:52 PA 64 PA 11:49:57 SVC 63 11:50:04 IVC 67 SV 11:50:09 Signed By Imer Alvarado MD On 12/12/2020 12:26:54 Imer Alvarado MD
== END 2020-12-12 16:17 ==
PROVIDERS: PCP Family Medicine Geriatric Medicine; Referring Provider Internal Medicine Cardiovascular Disease; Visit Provider Internal Medicine Cardiovascular Disease
DX: I25.10 Atherosclerotic heart disease of native coronary artery without angina pectoris (principal); I11.9 Hypertensive heart disease without heart failure; I27.29 Other secondary pulmonary hypertension; E11.9 Type 2 diabetes mellitus without complications; I48.91 Unspecified atrial fibrillation; I34.2 Nonrheumatic mitral (valve) stenosis; I35.0 Nonrheumatic aortic (valve) stenosis; E78.5 Hyperlipidemia, unspecified; G47.33 Obstructive sleep apnea (adult) (pediatric); K21.9 Gastro-esophageal reflux disease without esophagitis; Z79.84 Long term (current) use of oral hypoglycemic drugs; Z79.01 Long term (current) use of anticoagulants; Z79.82 Long term (current) use of aspirin; Z87.891 Personal history of nicotine dependence; Z96.652 Presence of left artificial knee joint
CPT/HCPCS: 36415; 71046; 80048; 82803; 93460; 99152; 99153; J7040; Q9967; C1751; C1769; C1894

== ENCOUNTER → 2020-12-28 12:58 | Outpatient (CLI) | payer MEDICARE, MEDICAID, SELFPAY ==
[2020-12-08 14:16] VITALS: BMI 37.2
[2020-12-28 13:57] LABS: Amphetamine Urine VISTA NEGATIVE (<1000 ng/mL); Barbiturate Urine VISTA NEGATIVE (< 200 ng/mL); Benzodiazepine Urine VISTA NEGATIVE (< 200 ng/mL); Cocaine Urine VISTA NEGATIVE (< 300 ng/mL); Ecstacy Urine VISTA NEGATIVE (< 500 ng/mL); Methadone Urine VISTA NEGATIVE (< 300 ng/mL); PCP Urine VISTA NEGATIVE (< 25 ng/mL); THC Urine VISTA NEGATIVE (< 50 ng/mL); Vista UDS pH Range 6
[2020-12-28 14:06] LABS: Anion Gap 5 (5-15); BUN 17 mg/dL (7-18); BUN/Creat Ratio 21.4 RATIO (10-20); Calcium,Total 8.7 mg/dL (8.5-10.1); Chloride 104 mmol/L (98-107); Creatinine, Serum 0.79 mg/dL (0.55-1.02); EST Glomerular Filtration Rate 76 mL/min (>60); Est Glom Filt Rate - Afr Amer 92 mL/min (>60); Glucose 101 mg/dL (74-106); Magnesium 1.5 mg/dL (1.6-2.6); Sodium Level 140 mmol/L (136-145)
== END ==
PROVIDERS: Internal Medicine Cardiovascular Disease; PCP Family Medicine Geriatric Medicine; Referring Provider Anesthesiology Pain Medicine; Visit Provider Anesthesiology Pain Medicine
DX: F11.20 Opioid dependence, uncomplicated (principal); I48.91 Unspecified atrial fibrillation; I35.0 Nonrheumatic aortic (valve) stenosis; I34.2 Nonrheumatic mitral (valve) stenosis; I10 Essential (primary) hypertension; E78.5 Hyperlipidemia, unspecified
CPT/HCPCS: 36415; 80048; 80307; 83735

== ENCOUNTER → 2021-01-10 | Outpatient (CLI) | payer MEDICARE, MEDICAID, SELFPAY ==
--- NOTE | 2021-01-10 | EMB_PTH ---
PATIENT: GARCÍA BURROWS LOC: [facility] U#:[id number] AGE/SX: 70/F ROOM: RE01/10/[address]: ROCHELLE Fields : 1950 BED: DIS: 01/10/2021 SPEC #: [id number] RECD: 01/10/21 12:03 STATUS: STEPHY SEDRICK #: [id number] MARI: 01/10/21 00:[address]: Taylor Kelly NP DEPT: SURGICAL PATHOLOGY RECD BY: Maricruz Armstrong ENTERED: 01/10/21 12:54 SP TYPE: ENDOM BX/C AUBREY DR: Dr. Albert Jarvis MD Tissues: Endometrium, NOS Procedures: Surgery Specimen Level IV HEADER OPERATION: Endometrial biopsy PRE-OP DIAGNOSIS: PMB TISSUE SUBMITTED: Endometrial biopsy MICROSCOPIC DIAGNOSIS Endometrium, biopsy: Inactive endometrium with focal cystic change. Strips of benign superficial endocervix. AM:rosa 01/11/2021 MICROSCOPIC DESCRIPTION Slides are reviewed. GROSS DESCRIPTION Received is one container labeled with the patient's name and not further designated. The specimen consists of multiple irregular fragments of light he soft tissue that in aggregate measure 0.8 x 0.5 x 0.1 cm. The specimen is totally submitted in one cassette. / AM:rosa 01/10/21 TC:5 CPT: 10889
[2021-01-10 09:53] VITALS: BMI 34.3
[2021-01-12 18:41] LABS: HPV Reflexed? NOT INDICATED
== END | disposition home or self-care (01) ==
PROVIDERS: PCP Family Medicine Geriatric Medicine; Referring Provider Nurse Practitioner Women's Health; Visit Provider Nurse Practitioner Women's Health
DX: Z12.4 Encounter for screening for malignant neoplasm of cervix (principal); N95.0 Postmenopausal bleeding
CPT/HCPCS: 88175; 88305; G0145

== ENCOUNTER → 2021-01-31 11:53 | Outpatient (CLI) | payer MEDICARE, MEDICAID, SELFPAY ==
[2021-01-10 09:53] VITALS: BMI 34.3
[2021-01-11 14:17] VITALS: BMI 34.3
--- NOTE | 2021-01-31 11:54 | US_ITS ---
STUDY: ULTRASOUND OF THE FEMALE PELVIS - COMPLETE REASON FOR EXAM: Female, 70 years old. Postmenopausal bleeding. LMP: Patient is postmenopausal. TECHNIQUE: Transabdominal and Transvaginal TECHNICAL QUALITY: Adequate. COMPARISON: None. FINDINGS: The uterus is retroverted and is in a midline position. The uterus measures 5.5 cm x 4.1 cm x 2.9 cm. Normal uterine cervix. The endometrium is thickened and measures 12 mm in thickness, and is fluid distended. There is no demonstrated endometrial mass. There is heterogeneous appearance of the uterus with a focal calcification suggestive of fibroid change. There is a 2.1 cm x 2.2 cm x 1.7 cm fibroid. I.U.D. - The patient does not have an I.U.D. The right ovary is visualized. The right ovary measures 2 cm x 1.8 cm x 1.5 cm. There is no right ovarian cyst or ovarian mass. There is no visualized right adnexal mass or complex lesion. There is normal arterial and normal venous vascularity. The left ovary is visualized. The left ovary measures 2.3 cm x 1.5 cm x 0.7 cm. There is no left ovarian cyst or ovarian mass. There is no visualized left adnexal mass or complex lesion. There is normal arterial and normal venous vascularity. There is no fluid in the cul-de-sac. The pre void volume of the bladder was 81 ml. US/Transvaginal Non- IMPRESSION: Fibroid uterus. Thickened and fluid distended endometrium. Electronically Signed: Bandar Mckeon MD at 21:25 EDT , Service support ,
--- NOTE | 2021-01-31 11:54 | US_ITS ---
STUDY: ULTRASOUND OF THE FEMALE PELVIS - COMPLETE REASON FOR EXAM: Female, 70 years old. Postmenopausal bleeding. LMP: Patient is postmenopausal. TECHNIQUE: Transabdominal and Transvaginal TECHNICAL QUALITY: Adequate. COMPARISON: None. FINDINGS: The uterus is retroverted and is in a midline position. The uterus measures 5.5 cm x 4.1 cm x 2.9 cm. Normal uterine cervix. The endometrium is thickened and measures 12 mm in thickness, and is fluid distended. There is no demonstrated endometrial mass. There is heterogeneous appearance of the uterus with a focal calcification suggestive of fibroid change. There is a 2.1 cm x 2.2 cm x 1.7 cm fibroid. I.U.D. - The patient does not have an I.U.D. The right ovary is visualized. The right ovary measures 2 cm x 1.8 cm x 1.5 cm. There is no right ovarian cyst or ovarian mass. There is no visualized right adnexal mass or complex lesion. There is normal arterial and normal venous vascularity. The left ovary is visualized. The left ovary measures 2.3 cm x 1.5 cm x 0.7 cm. There is no left ovarian cyst or ovarian mass. There is no visualized left adnexal mass or complex lesion. There is normal arterial and normal venous vascularity. There is no fluid in the cul-de-sac. The pre void volume of the bladder was 81 ml. US/Pelvic (Non ) IMPRESSION: Fibroid uterus. Thickened and fluid distended endometrium. Electronically Signed: Bandar Mckeon MD at 21:25 EDT , Service support ,
== END ==
PROVIDERS: PCP Family Medicine Geriatric Medicine; Referring Provider Nurse Practitioner Women's Health; Visit Provider Nurse Practitioner Women's Health
DX: N95.0 Postmenopausal bleeding (principal)
CPT/HCPCS: 76830; 76856

== ENCOUNTER 2021-03-13 05:36 | Day surgery (SDC) | payer MEDICARE, MEDICAID, SELFPAY ==
--- NOTE | 2021-03-13 | EMB_PTH ---
PATIENT: GARCÍA BURROWS LOC: [facility] [place] U#:[id number] AGE/SX: 70/F ROOM: RE03/13/[address]: Dr. Annie Fermin MD : [id number] BED: DIS: 03/13/2021 SPEC #: [id number] RECD: 03/13/21 11:30 STATUS: STEPHY DUBOSE #: [id number] MARI: 03/13/21 00:[address]: Annie Fermin DEPT: SURGICAL PATHOLOGY RECD BY: Parag Boyer ENTERED: 03/13/21 11:31 SP TYPE: ENDOM BX/C OTHR DR: Dr. Albert Jarvis MD Tissues: Endometrium, NOS Procedures: Surgery Specimen Level IV HEADER OPERATION: Hysteroscopy, D&C PRE-OP DIAGNOSIS: Post menopausal bleeding TISSUE SUBMITTED: Endometrial curettings MICROSCOPIC DIAGNOSIS Endometrium, curettings: Chronic endometritis. Fibrinopurulent material. AM;am 03/14/21 MICROSCOPIC DESCRIPTION Slides are reviewed. GROSS DESCRIPTION Received in formalin is one container labeled with the patient name and designated endometrial curettings. The specimen consists of multiple elongated and irregular fragments of pink-he tissue measuring in aggregate 3x 2 x 0.2cm. The specimen is totally submitted in one cassette. / AM;am 03/13/21 TC:2 CPT: 39056
--- NOTE | 2021-03-13 06:04 | EKG12_ITS ---
Test Reason : PRE OP Blood Pressure : / mmHG Vent. Rate : 091 BPM Atrial Rate : 357 BPM P-R Int : 000 ms QRS Dur : 080 ms QT Int : 336 ms P-R-T Axes : 000 -05 018 degrees QTc Int : 413 ms Atrial fibrillation Abnormal ECG When compared with ECG of 21-NOV-2020 15:52, No significant change was found Confirmed by EDWIN BLACK, QUINN ([id number]), editorial assistant ALBERTO MANSFIELD ([id number]) on 03/20/2021 10:45:57 AM Referred By: Annie Fermin Confirmed By:QUINN PINEDA MD
[2021-03-13 06:59] VITALS: BP 150/80; PULSE 93; RESP 18; TEMP 36.2; O2SAT 100; BMI 33.3
--- NOTE | 2021-03-13 07:15 | PCM.HP.BLA ---
History and Physical Date of Admission: 03/13/21 Intake Vital Signs 02/27/21 15:26 Height 5 ft 4 in Weight: 190 lb BMI 32.5 BP 120/80 Intake Visit Reasons: consult possible D&C Chief Complaint: surgical consult D&C Napkin Band Wrapper Required: No Is patient in pain?: No Allergies lisinopril Adverse Reaction (Intermediate, Verified 02/27/21 15:27) Unknown penicillin G Adverse Reaction (Intermediate, Verified 02/27/21 15:27) Unknown exenatide [From Byetta] Adverse Reaction (Unknown, Verified 02/27/21 15:27) Unknown Medications escitalopram oxalate 20 mg PO DAILY 03/24/15 [History Confirmed 02/27/21] multivitamin,jd-paio-cmetkpvl 1 tab PO DAILY 03/24/15 [History Confirmed 02/27/21] oxybutynin chloride 15 mg PO DAILY 03/30/18 [History Confirmed 02/27/21] acetaminophen 650 mg PO Q6H PRN PRN tab 07/21/18 [Rx Confirmed 02/27/21] cholecalciferol (vitamin D3) 50 mcg (2,000 unit) capsule 2,000 unit PO DAILY 10/07/18 [History Confirmed 02/27/21] atorvastatin 20 mg tablet 20 mg PO QHS 05/24/20 [History Confirmed 02/27/21] gabapentin 300 mg capsule 600 mg PO BID cap 05/24/20 [History Confirmed 02/27/21] magnesium hydroxide 400 mg/5 mL oral suspension 30 ml PO DAILY PRN ml 05/24/20 [History Confirmed 02/27/21] furosemide 20 mg tablet 20 mg PO DAILY 11/15/20 [History Confirmed 02/27/21] metformin 500 mg tablet 500 mg PO DAILY 11/15/20 [History Confirmed 02/27/21] apixaban 5 mg tablet 5 mg PO BID #60 tab 11/28/20 [Rx Confirmed 02/27/21] aspirin 81 mg tablet,delayed release 81 mg PO DAILY #30 tab 11/28/20 [Rx Confirmed 02/27/21] diltiazem HCl 240 mg capsule,extended release 24 hr 240 mg PO DAILY #30 cap 12/12/20 [Rx Confirmed 02/27/21] oxygen #1 ea 12/12/20 [Rx Confirmed 02/27/21] potassium chloride 20 mEq tablet,extended release 20 meq PO DAILY #30 tab 12/15/20 [Rx Confirmed 02/27/21] magnesium oxide 400 mg PO DAILY #30 tab 12/29/20 [Rx Confirmed 02/27/21] biotin 1 mg capsule 1 mg PO DAILY 01/10/21 [History Confirmed 02/27/21] cetirizine 10 mg capsule 10 mg PO DAILY PRN 01/10/21 [History Confirmed 02/27/21] ferrous sulfate 325 mg (65 mg iron) tablet,delayed release 325 mg PO DAILY 01/10/21 [History Confirmed 02/27/21] menthol 4 % topical gel 1 applic TOPICAL DAILY 01/10/21 [History Confirmed 02/27/21] pilocarpine HCl 5 mg tablet 5 mg PO TID 01/10/21 [History Confirmed 02/27/21] tramadol 50 mg tablet 50 mg PO BID PRN 01/10/21 [History Confirmed 02/27/21] bupropion HCl 75 mg tablet 75 mg PO DAILY 01/11/21 [History Confirmed 02/27/21] famotidine 20 mg tablet 20 mg PO DAILY 01/11/21 [History Confirmed 02/27/21] norethindrone acetate 5 mg tablet 5 mg PO .COMPLEX #45 tab 02/20/21 [Rx Confirmed 02/27/21] Is last menstrual period known: No Post menopausal: No Patient : No : No PFSH Medical History (Updated 02/27/21 @ 15:[address] Annie Fermin MD) Anemia Depression Essential hypertension Femur fracture, left GERD (gastroesophageal reflux disease) Hyperlipidemia Mitral stenosis Non-rheumatic mitral valve stenosis Nonrheumatic aortic (valve) stenosis Nonrheumatic aortic (valve) stenosis CHIDI (obstructive sleep apnea) Other secondary pulmonary hypertension Pulmonary hypertension Type 2 diabetes mellitus Surgical History History of cholecystectomy History of hernia repair History of left heart catheterization (LHC) (~12/12/20) History of partial colectomy History of total left knee replacement Family History Sister CAD (coronary artery disease) Hx of CABG Social History housing: residential number of children: 0 current occupational status: retired Smoking Status: Former smoker alcohol intake: never additional social history: single HPI consult possible D&C Details: GARCÍA BURROWS is a 70 year old who presents for postmenopausal bleeding. Ultrasound showed thickened lining that was heterogenous and had normal endometrial biopsy. She has persistent bleeding. She lives in the [facility] and is on a blood thinner for atrial fibrillation. she hasn't had a menses in over thirty years and then started bleeding a month ago, heavy, like a cup of blood. It stopped and then it started a couple of days ago and now stopped with short progestin course, is still on eliquis. Female Reproductive History Menopausal Symptoms: No night sweats Pregancy History 0 Elective abortions Hx Para Spontaneous abortions Hx # Term Pregnancies Ectopic pregnancies Hx # Pregnancies Multiple births # of living children ROS Const Constitutional: Reports fatigue; Denies night sweats, weight gain or weight loss ENT ENT: Reports system reviewed and no additional complaints, except as documented Cardio Card: Denies chest pain Resp Resp: Denies cough or dyspnea GI GI: Reports as per HPI; Denies abdominal pain, constipation, nausea or vomiting : Reports urinary frequency, urinary incontinence and urinary urgency; Denies nipple discharge, urinary hesitancy, vaginal discharge, vaginal dryness, vaginal odor or vaginal pruritus Musc Musc: Reports arthralgias, back pain and muscle weakness Skin Skin/Breast: Denies alopecia, change in hair, dry skin, breast mass, breast pain, breast skin changes or nipple discharge Neuro Neuro: Reports system reviewed and no additional complaints, except as documented Psych Psych: Reports system reviewed and no additional complaints, except as documented Endo Endo: Denies cold intolerance, excessive sweating, heat intolerance or polydipsia Sabino/Lymph Hematologic/Lymphatic: Denies easy bleeding, Denies easy bruising and Denies lymphadenopathy Exam Const General: cooperative, healthy appearing, comfortable, no acute distress and well developed Orientation: alert HENMT Head: normal to inspection and normocephalic Ears: hearing grossly normal bilaterally and external ears normal Nose: external nose normal and nares normal Face and sinus: normal facial exam Neck Neck: normal visual inspection and no lymphadenopathy Thyroid: thyroid normal Chest Chest palpation & inspection: normal inspection of the chest Resp Effort & Inspection: normal respiratory effort Auscultation: clear to auscultation bilaterally Cardio Rate: regular rate Rhythm: regular rhythm (occasional extra beat) Heart Sounds: S1 normal, S2 normal and murmur (IV) systolic GI Inspection: normal to inspection and non-distended Palpation: soft and no hepatosplenomegaly Musc Other: gross motor intact no deficits, reduced bilateral strength Skin General: no rashes or lesions noted Neuro General: patient alert, patient awake, moves all extremities and no focal motor deficits Motor: muscle tone normal throughout Extrem General: normal to inspection and no pedal edema Psych Appearance: grossly normal Mental Status: mental status grossly normal Affect: normal affect Speech and Movement: speech and movement normal Coding Level of Care Code Off vis,est,level 5 Diagnoses Postmenopausal bleeding N95.0 Assessment and Plan Assessment and Plan (1) Postmenopausal bleeding: Status: Acute Comment: recommend d and c hysteroscopy possible symphion. on Eliquis.. needs medical and cardiac clearance. blood thinner bridge Plan - Dr. Annie Fermin MD: After discussing the patient's diagnosis and treatment plan options, patient wishes to proceed with surgical management. I have discussed with the patient the risks, benefits, and alternatives of the procedure which include but are not limited to risks of anesthesia, bleeding, infection, possible damage to bowel, bladder, or surrounding vasculature which could lead to additional surgery to evaluate any complications. Patient agrees to procedure and wishes to proceed. ACOG/uptodate references given for additional information regarding procedure. UPDATE- I have seen the patient and performed any clinically relevant updates to the history and physical exam. Annie Fermin MD
[2021-03-13 07:36] LABS: Bedside Glucose 174 mg/dL (70-110)
[2021-03-13] MEDS: Lidocaine 1% (30 ml sdv) 30 ML Vial (07:46)
--- NOTE | 2021-03-13 07:54 | OP.PCM_ITS ---
Problems Associated Problem List Diagnoses (1) Postmenopausal bleeding: (2) Atrial fibrillation: Report of Operation Date of Procedure: 03/13/21 Pre-Operative Diagnosis: PMB Post-Operative Diagnosis: same Surgery/Procedure Performed:: D&C hysteroscopy rigging slinger: None Type of Anesthesia: Local MAC Special Medications: none Specimen's removed: EMC Drains: none Estimated Blood Loss (mL): 50 Fluids Replaced: crystalloid Description of Procedure: Patient was prepped and draped in a normal sterile fashion under MAC anesthesia. A weighted speculum was placed in the vagina and the anterior lip of the cervix was grasped with a single-tooth tenaculum. A paracervical block was placed with 1% lidocaine. Cervix was progressively dilated to allow passage of a 5 mm hysteroscope. The lining was fully visualized and noted to have a thin appearance but no gross abnormalities . Uterine sounded to cm. Curettage was performed and moderate amount of tissue, thin in aperance , sent to pathology. All instruments were removed from the vagina and excellent hemostasis was noted. Patient was awoken and taken to recovery in stable condition. Grafts/Implants Used: none Complications none Admit VTE Documentation VTE Present on Admission: Yes (last dose 24 hours prior and will restart eliquis in PACU) VTE Mechan Device Prophylaxis: SCD's Multi Select Codes Urinary/Genital Urinary/Genital CPT Codes: 08992 Hysteroscopy,EMC, Polypectomy
--- NOTE | 2021-03-13 07:56 | EX.PCM.DISCH ---
Discharge Instructions Procedure D&C Diet Discharge Diet: No restrictions Activity Discharge Activity: Return to Normal Activity, May Shower and May Take a Tub Bath (after 1 week) May resume sexual activity in: 1-2 weeks Weight Bearing Status: Weight bearing as tolerated Lifting Restrictions: none Dressing / Incision Call your doctor if you observe: Fever of 101 or Higher, Using more than 1 pad per hour, Shortness of breath and Uncontrolled pain Follow Up Care Please Follow Up With: Annie Fermin MD When: Call [phone] to schedule appointment. Test Results: Test results from this visit will be discussed in further detail at your follow-up appointment, if applicable. Discharge Plan Admission Attending Provider: Annie Fermin Primary Care Provider: Albert Jarvis Chi Discharge Orders/Prescriptions Prescriptions: No Action cholecalciferol (vitamin D3) 2,000 unit capsule 2,000 unit PO DAILY RF: 0 atorvastatin 20 mg tablet 20 mg PO QHS RF: 0 magnesium hydroxide [Milk of Magnesia] 400 mg/5 mL suspension 30 ml PO DAILY PRN (Reason: Constipation) RF: 0 furosemide [Lasix] 20 mg tablet 20 mg PO DAILY RF: 0 metformin 500 mg tablet 500 mg PO DAILY RF: 0 bupropion HCl 75 mg tablet 75 mg PO DAILY RF: 0 famotidine 20 mg tablet 20 mg PO DAILY RF: 0 biotin 1 mg capsule 1 mg PO DAILY RF: 0 Biofreeze (menthol) 4 % gel 1 applic topical DAILY RF: 0 All Day Allergy (cetirizine) 10 mg capsule 10 mg PO DAILY PRN (Reason: allergies) RF: 0 ferrous sulfate 325 mg (65 mg iron) tablet,delayed release (DR/EC) 325 mg PO DAILY RF: 0 pilocarpine HCl 5 mg tablet 5 mg PO TID RF: 0 tramadol 50 mg tablet 50 mg PO BID PRN (Reason: Pain) RF: 0 multivitamin,ji-dqfy-miknrltf 1 TABLET tablet 1 tab PO DAILY RF: 0 escitalopram oxalate 10 MG tablet 20 mg PO DAILY RF: 0 gabapentin 300 mg capsule 600 mg PO BID RF: 0 oxybutynin chloride 10 MG tablet extended release 24hr 15 mg PO DAILY RF: 0 acetaminophen 325 MG tablet 650 mg PO Q6H PRN PRN (Reason: Pain/Fever>100.4) RF: 0 Eliquis 5 mg Tablet 5 mg PO BID RF: 0 aspirin [Adult Low Dose Aspirin] 81 mg tablet,delayed release (DR/EC) 81 mg PO DAILY Qty: 30 RF: 12 diltiazem HCl 240 mg capsule,extended release 24hr 240 mg PO DAILY Qty: 30 RF: 12 (DME) oxygen 2L NC 0 .Route .MEDSUPPLY Qty: 1 RF: 0 potassium chloride 20 mEq tablet extended release 20 meq PO DAILY Qty: 30 RF: 12 magnesium oxide 400 mg magnesium tablet 400 mg PO DAILY Qty: 30 RF: 12 norethindrone acetate [Aygestin] 5 mg tablet 5 mg PO .COMPLEX Qty: 45 RF: 0 enoxaparin [Lovenox] 80 mg/0.8 mL syringe 85 mg subcut Q12H Qty: 8 RF: 1 Other Ambulatory Orders: 12 Lead EKG (Routine) Timeframe: [id number] Facility: [facility] - Location: Cardiovascular Services Ordered By: Dr. Annie Fermin
[2021-03-13 08:11] VITALS: BP 139/65; BP 150/80; PULSE 96; RESP 16; TEMP 36.3; O2SAT 97
[2021-03-13 08:15] VITALS: BP 148/86; BP 150/80; PULSE 96; RESP 16; O2SAT 97
[2021-03-13 08:20] VITALS: BP 150/80; BP 166/100; PULSE 95; RESP 16; O2SAT 96
[2021-03-13 08:26] VITALS: BP 150/80; BP 158/97; PULSE 93; RESP 16; TEMP 36.1; O2SAT 96
[2021-03-13] MEDS: APIXABAN 5 MG TABLET PO (09:02)
[2021-03-13] MEDS: Zinc Oxide 30gm Tube 1 APPLIC TOPICAL (09:08)
[2021-03-13 09:37] VITALS: BP 150/80; BP 162/88; PULSE 98; RESP 16; TEMP 36.7; O2SAT 96
== END 2021-03-13 09:45 | disposition home or self-care (01) ==
LOC: SDC 05:38 → AC 05:38
PROVIDERS: PCP Family Medicine Geriatric Medicine; Referring Provider Obstetrics & Gynecology; Visit Provider Obstetrics & Gynecology
PROC: (CPT 58260; principal; 2021-03-13 07:20)
DX: N95.0 Postmenopausal bleeding (principal); I48.91 Unspecified atrial fibrillation; Z79.01 Long term (current) use of anticoagulants; Z79.82 Long term (current) use of aspirin; Z79.84 Long term (current) use of oral hypoglycemic drugs; Z87.891 Personal history of nicotine dependence; Z88.0 Allergy status to penicillin; I10 Essential (primary) hypertension; G47.33 Obstructive sleep apnea (adult) (pediatric); E11.9 Type 2 diabetes mellitus without complications; E78.5 Hyperlipidemia, unspecified; K21.9 Gastro-esophageal reflux disease without esophagitis
CPT/HCPCS: 58558; 82962; 86850; 86900; 86901; 88305; 93005; J7120; J2405

== ENCOUNTER 2021-07-23 16:40 | Emergency (ER) | payer MEDICARE, MEDICAID, SELFPAY ==
[2021-07-23 16:42] VITALS: BP 145/94; PULSE 79; RESP 18; TEMP 36.8; O2SAT 99; BMI 41.1
--- NOTE | 2021-07-23 16:59 | ED.VIS.LOWEX ---
HPI History of Present Illness HPI Narrative: Patient presents with bleeding from her left leg wound that began yesterday. Patient states the nurse at the [facility] was cleaning her wound when it started bleeding. Patient states that the wound care physician today was also cleaning the wound and noted that it was still having moderate amount of bleeding. Dressing was applied. Patient states she started bleeding through the dressing. Patient was then referred to the emergency department for possible cauterization. Patient denies any trauma or injury today. Patient denies any paresthesias or weakness. Chief Complaint: Wound Informant: patient Onset/Context/Timing Onset: Yesterday Context: Sudden Onset Timing: Continuous Quality of Pain: - (Bleeding) Location: Left leg Worsened by: Nothing Relieved by: Nothing Associated Symptoms Associated Symptoms: Negative for Parasthesia, Weakness and Loss of Funtion PFSH [facility] Medical History Anemia Depression Essential hypertension Femur fracture, left GERD (gastroesophageal reflux disease) Hyperlipidemia Mitral stenosis Non-rheumatic mitral valve stenosis Nonrheumatic aortic (valve) stenosis Nonrheumatic aortic (valve) stenosis CHIDI (obstructive sleep apnea) Other secondary pulmonary hypertension Pulmonary hypertension Type 2 diabetes mellitus Home Medications escitalopram oxalate 20 mg PO DAILY 03/24/15 [History Last Taken 07/17/18] multivitamin,rx-vbbp-ojwrkxwa 1 tab PO DAILY 03/24/15 [History Last Taken 07/17/18] oxybutynin chloride 15 mg PO DAILY 03/30/18 [History Last Taken 07/17/18] acetaminophen 650 mg PO Q6H PRN PRN tab 07/21/18 [Rx Last Taken Unknown] cholecalciferol (vitamin D3) 50 mcg (2,000 unit) capsule 2,000 unit PO DAILY 10/07/18 [History Last Taken Unknown] atorvastatin 20 mg tablet 20 mg PO QHS 05/24/20 [History Last Taken Unknown] gabapentin 300 mg capsule 600 mg PO BID cap 05/24/20 [History Last Taken Unknown] magnesium hydroxide 400 mg/5 mL oral suspension 30 ml PO DAILY PRN ml 05/24/20 [History Last Taken Unknown] furosemide 20 mg tablet 20 mg PO DAILY 11/15/20 [History Last Taken Unknown] metformin 500 mg tablet 500 mg PO DAILY 11/15/20 [History Last Taken 12/11/20] aspirin 81 mg tablet,delayed release 81 mg PO DAILY #30 tab 11/28/20 [Rx Last Taken 12/12/20] diltiazem HCl 240 mg capsule,extended release 24 hr 240 mg PO DAILY #30 cap 12/12/20 [Rx Last Taken Unknown] oxygen #1 ea 12/12/20 [Rx Last Taken Unknown] potassium chloride 20 mEq tablet,extended release 20 meq PO DAILY #30 tab 12/15/20 [Rx Last Taken Unknown] magnesium oxide 400 mg PO DAILY #30 tab 12/29/20 [Rx Last Taken Unknown] biotin 1 mg capsule 1 mg PO DAILY 01/10/21 [History Last Taken Unknown] cetirizine 10 mg capsule 10 mg PO DAILY PRN 01/10/21 [History Last Taken Unknown] ferrous sulfate 325 mg (65 mg iron) tablet,delayed release 325 mg PO DAILY 01/10/21 [History Last Taken Unknown] menthol 4 % topical gel 1 applic TOPICAL DAILY 01/10/21 [History Last Taken Unknown] pilocarpine HCl 5 mg tablet 5 mg PO TID 01/10/21 [History Last Taken Unknown] tramadol 50 mg tablet 50 mg PO BID PRN 01/10/21 [History Last Taken Unknown] famotidine 20 mg tablet 20 mg PO DAILY 01/11/21 [History Last Taken Unknown] norethindrone acetate 5 mg tablet 5 mg PO .COMPLEX #45 tab 02/20/21 [Rx Last Taken Unknown] enoxaparin 80 mg/0.8 mL subcutaneous syringe 85 mg SUBCUT Q12H #8 ml 03/06/21 [Rx Last Taken Unknown] apixaban [Eliquis] 5 mg PO BID 03/09/21 [History Last Taken Unknown] doxycycline hyclate 100 mg tablet 100 mg PO BID #20 tab 03/15/21 [Rx Last Taken Unknown] Allergy/AdvReac Type Severity Reaction Status Date / Time lisinopril AdvReac Intermediate Unknown Verified 07/23/21 16:44 penicillin G AdvReac Intermediate Unknown Verified 07/23/21 16:44 exenatide [From Byetta] AdvReac Unknown Unknown Verified 07/23/21 16:44 Family History Sister CAD (coronary artery disease) Hx of CABG Surgical History History of cholecystectomy History of hernia repair History of left heart catheterization (LHC) (~12/12/20) History of partial colectomy History of total left knee replacement Social History [facility] number of children: 0 current occupational status: retired Smoking Status: Former smoker alcohol intake: never additional social history: single ROS ROS ED Constitutional Constitutional ED: Denies chills or fever(s) Eyes Eyes: Denies blurry vision or change in vision ENT ENT ED: Denies rhinorrhea or sore throat Cardiovascular Cardiovascular: Denies chest pain or palpitations Respiratory/Chest Respiratory/Chest: Denies cough or dyspnea Gastrointestinal Gastrointestinal: Denies nausea or vomiting Genitourinary Genitourinary ED: Denies dysuria or hematuria Musculoskeletal Musculoskeletal: Denies back pain or neck pain Integumentary Denies abscess or rash Neurologic Neurologic: Denies headache(s) or weakness Allergic/Immunologic Allergic/Immunologic ED: Denies mouth swelling or urticaria EXAM Physical Exam Const Vital Signs: 07/23/21 16:42 Temperature 98.2 F Temperature Source Oral Pulse Rate 79 Respiratory Rate 18 Blood Pressure 145/94 H Blood Pressure Mean 111 Pulse Ox 99 Oxygen Delivery Method Nasal Cannula Oxygen Flow Rate (L/min) 2 Positive well nourished, well developed and obese General Appearance ED: well developed Nutritional Appearance: obese HEENT Reports moist mucous membranes Neck full ROM Extremity Extremity Narrative: There is an open wound over the anterior aspect of the left lower leg approximately 2.5 cm in diameter. There is some mild bleeding noted. There is no surrounding erythema or warmth. There is no discharge or drainage. Pedal pulses are equal bilaterally. Sensation was intact to light touch in all digits. Capillary refill was less than 2 seconds in all digits. There is good range of motion of the left lower extremity. Neuro oriented x3, CN's II-XII intact bilaterally, moves all extremities and no sensory deficits noted Sensorium / Orientation: alert Motor Exam: strength 5/5 throughout Psych mental status grossly normal MDM MDM MDM Narrative Medical decision making narrative: Gelfoam dressing was applied to the wound. Pressure dressing was applied. Bleeding has stopped. The wound was cleaned and dressed. Patient was instructed to follow-up with her primary care physician and wound care physician as scheduled. Patient understood and was agreeable with the plan. All questions were answered. Discharge Plan Triage Chief Complaint: Wound ED Provider: Ramirez Reynoso Dx/Rx/DC Orders Clinical Impression: Bleeding from wound Prescriptions: No Action cholecalciferol (vitamin D3) 2,000 unit capsule 2,000 unit PO DAILY RF: 0 atorvastatin 20 mg tablet 20 mg PO QHS RF: 0 magnesium hydroxide [Milk of Magnesia] 400 mg/5 mL suspension 30 ml PO DAILY PRN (Reason: Constipation) RF: 0 furosemide [Lasix] 20 mg tablet 20 mg PO DAILY RF: 0 metformin 500 mg tablet 500 mg PO DAILY RF: 0 famotidine 20 mg tablet 20 mg PO DAILY RF: 0 biotin 1 mg capsule 1 mg PO DAILY RF: 0 Biofreeze (menthol) 4 % gel 1 applic topical DAILY RF: 0 All Day Allergy (cetirizine) 10 mg capsule 10 mg PO DAILY PRN (Reason: allergies) RF: 0 ferrous sulfate 325 mg (65 mg iron) tablet,delayed release (DR/EC) 325 mg PO DAILY RF: 0 pilocarpine HCl 5 mg tablet 5 mg PO TID RF: 0 tramadol 50 mg tablet 50 mg PO BID PRN (Reason: Pain) RF: 0 multivitamin,za-cspz-rxyiathx 1 TABLET tablet 1 tab PO DAILY RF: 0 escitalopram oxalate 10 MG tablet 20 mg PO DAILY RF: 0 gabapentin 300 mg capsule 600 mg PO BID RF: 0 oxybutynin chloride 10 MG tablet extended release 24hr 15 mg PO DAILY RF: 0 acetaminophen 325 MG tablet 650 mg PO Q6H PRN PRN (Reason: Pain/Fever>100.4) RF: 0 Eliquis 5 mg Tablet 5 mg PO BID RF: 0 aspirin [Adult Low Dose Aspirin] 81 mg tablet,delayed release (DR/EC) 81 mg PO DAILY Qty: 30 RF: 12 diltiazem HCl 240 mg capsule,extended release 24hr 240 mg PO DAILY Qty: 30 RF: 12 (DME) oxygen 2L NC 0 .Route .MEDSUPPLY Qty: 1 RF: 0 potassium chloride 20 mEq tablet extended release 20 meq PO DAILY Qty: 30 RF: 12 magnesium oxide 400 mg magnesium tablet 400 mg PO DAILY Qty: 30 RF: 12 norethindrone acetate [Aygestin] 5 mg tablet 5 mg PO .COMPLEX Qty: 45 RF: 0 enoxaparin [Lovenox] 80 mg/0.8 mL syringe 85 mg subcut Q12H Qty: 8 RF: 1 doxycycline hyclate 100 mg tablet 100 mg PO BID Qty: 20 RF: 0 Primary Care Provider: Albert Jarvis Chi Referrals: Albert Jarvis Chi, MD [Primary Care Provider] - 3-5 Days Disposition Disposition: Senior Care Facility Discharge Location: [facility]
[2021-07-23] MEDS: Gelfoam 12-7 MM Sponge (1) 1 EACH TOPICAL (17:57)
== END 2021-07-23 19:46 | disposition skilled nursing facility (03) ==
PROVIDERS: Emergency Provider Emergency Medicine; PCP Family Medicine Geriatric Medicine; Visit Provider Emergency Medicine
DX: S89.92XA Unspecified injury of left lower leg, initial encounter (principal); Z68.41 Body mass index [BMI] 40.0-44.9, adult; E11.9 Type 2 diabetes mellitus without complications; X58.XXXA Exposure to other specified factors, initial encounter; E78.5 Hyperlipidemia, unspecified; I10 Essential (primary) hypertension; E66.9 Obesity, unspecified; Z79.01 Long term (current) use of anticoagulants; Z79.82 Long term (current) use of aspirin; Z79.84 Long term (current) use of oral hypoglycemic drugs; Z79.899 Other long term (current) drug therapy; Z87.891 Personal history of nicotine dependence

== ENCOUNTER 2021-07-23 23:39 | Emergency (ER) | payer MEDICARE, MEDICAID, SELFPAY ==
[2021-07-23 23:42] VITALS: PULSE 86; RESP 18; TEMP 35.9; O2SAT 94; BMI 40.1
[2021-07-23 23:47] VITALS: BP 116/69
--- NOTE | 2021-07-24 00:21 | EX.ED.DYSGE1 ---
HPI History of Present Illness Chief Complaint: Wound Check Informant: patient Narrative Narrative: Patient represents with some bleeding from her left anterior barrientos wound. She has had this for few weeks. She evidently had some debridement done earlier in the day. She was then transferred here because of continued oozing from the wound. She is on Eliquis and it looks like she is on that for history of atrial fibrillation although she was not able to tell me that. She is not having pain. She does not feel lightheaded. She states that a dressing was placed here. But somebody took off the dressing in the square material that was placed in the wound. When she got up and walked around the nursing facility it started bleeding again. Bleeding now seems better that she is laying down and gauze were placed on it. Nothing specifically made this better or worse but it did improve somewhat with the dressing. PFSH PFS Medical History Anemia Depression Essential hypertension Femur fracture, left GERD (gastroesophageal reflux disease) Hyperlipidemia Mitral stenosis Non-rheumatic mitral valve stenosis Nonrheumatic aortic (valve) stenosis Nonrheumatic aortic (valve) stenosis CHIDI (obstructive sleep apnea) Other secondary pulmonary hypertension Pulmonary hypertension Type 2 diabetes mellitus Home Medications escitalopram oxalate 20 mg PO DAILY 03/24/15 [History Last Taken 07/17/18] multivitamin,bw-[id number]-[id number] 1 tab PO DAILY 03/24/15 [History Last Taken 07/17/18] oxybutynin chloride 15 mg PO DAILY 03/30/18 [History Last Taken 07/17/18] acetaminophen 650 mg PO Q6H PRN PRN tab 07/21/18 [Rx Last Taken Unknown] cholecalciferol (vitamin D3) 50 mcg (2,000 unit) capsule 2,000 unit PO DAILY 10/07/18 [History Last Taken Unknown] atorvastatin 20 mg tablet 20 mg PO QHS 05/24/20 [History Last Taken Unknown] gabapentin 300 mg capsule 600 mg PO BID cap 05/24/20 [History Last Taken Unknown] magnesium hydroxide 400 mg/5 mL oral suspension 30 ml PO DAILY PRN ml 05/24/20 [History Last Taken Unknown] furosemide 20 mg tablet 20 mg PO DAILY 11/15/20 [History Last Taken Unknown] metformin 500 mg tablet 500 mg PO DAILY 11/15/20 [History Last Taken 12/11/20] aspirin 81 mg tablet,delayed release 81 mg PO DAILY #30 tab 11/28/20 [Rx Last Taken 12/12/20] diltiazem HCl 240 mg capsule,extended release 24 hr 240 mg PO DAILY #30 cap 12/12/20 [Rx Last Taken Unknown] oxygen #1 ea 12/12/20 [Rx Last Taken Unknown] potassium chloride 20 mEq tablet,extended release 20 meq PO DAILY #30 tab 12/15/20 [Rx Last Taken Unknown] magnesium oxide 400 mg PO DAILY #30 tab 12/29/20 [Rx Last Taken Unknown] biotin 1 mg capsule 1 mg PO DAILY 01/10/21 [History Last Taken Unknown] cetirizine 10 mg capsule 10 mg PO DAILY PRN 01/10/21 [History Last Taken Unknown] ferrous sulfate 325 mg (65 mg iron) tablet,delayed release 325 mg PO DAILY 01/10/21 [History Last Taken Unknown] menthol 4 % topical gel 1 applic TOPICAL DAILY 01/10/21 [History Last Taken Unknown] pilocarpine HCl 5 mg tablet 5 mg PO TID 01/10/21 [History Last Taken Unknown] tramadol 50 mg tablet 50 mg PO BID PRN 01/10/21 [History Last Taken Unknown] famotidine 20 mg tablet 20 mg PO DAILY 01/11/21 [History Last Taken Unknown] norethindrone acetate 5 mg tablet 5 mg PO .COMPLEX #45 tab 02/20/21 [Rx Last Taken Unknown] enoxaparin 80 mg/0.8 mL subcutaneous syringe 85 mg SUBCUT Q12H #8 ml 03/06/21 [Rx Last Taken Unknown] apixaban [Eliquis] 5 mg PO BID 03/09/21 [History Last Taken Unknown] doxycycline hyclate 100 mg tablet 100 mg PO BID #20 tab 03/15/21 [Rx Last Taken Unknown] Allergy/AdvReac Type Severity Reaction Status Date / Time lisinopril AdvReac Intermediate Unknown Verified 07/23/21 16:44 penicillin G AdvReac Intermediate Unknown Verified 07/23/21 16:44 exenatide [From Byetta] AdvReac Unknown Unknown Verified 07/23/21 16:44 Family History Sister CAD (coronary artery disease) Hx of CABG Surgical History History of cholecystectomy History of hernia repair History of left heart catheterization (LHC) (~12/12/20) History of partial colectomy History of total left knee replacement Social History housing: [facility] number of children: 0 current occupational status: retired Smoking Status: Former smoker alcohol intake: never additional social history: single ROS ROS ED Constitutional Constitutional ED: Denies chills or fever(s) ENT ENT ED: Denies rhinorrhea Respiratory/Chest Respiratory/Chest: Denies dyspnea Gastrointestinal Gastrointestinal: Denies nausea or vomiting Musculoskeletal Musculoskeletal: Denies myalgias Integumentary Reports other Details: See history of present illness. Hematologic/Lymphatic Hematologic/Lymphatic: Reports easy bleeding and easy bruising Allergic/Immunologic Allergic/Immunologic ED: Denies urticaria EXAM Physical Exam Const Vital Signs: 07/23/21 23:42 07/23/21 23:47 Temperature 96.6 F L Temperature Source Temporal Pulse Rate 86 Respiratory Rate 18 Blood Pressure 116/69 Blood Pressure Mean 84 Pulse Ox 94 Oxygen Delivery Method Nasal Cannula Oxygen Flow Rate (L/min) 2 Positive well nourished, well developed and obese General Appearance ED: well developed and NAD; Negative for cyanotic or diaphoretic Nutritional Appearance: obese HEENT Reports moist mucous membranes Resp normal respiratory effort and clear to auscultation bilaterally Cardio regular rate and regular rhythm GI normal to inspection, nondistended, normoactive bowel sounds Extremity Extremity Narrative: Has a approximately 4 to 5 cm round lesion on the left anterior mid barrientos. This was unwrapped. There is some mild ooze from the surface. It was irrigated and rinsed. I do not see any specific spot that I can cauterize or suture to stop bleeding. It just had some mild ooze from the area. Neuro Sensorium / Orientation: alert Skin Skin Narrative: Wound as above. MDM MDM MDM Narrative Medical decision making narrative: Procedure: Dressing of wound for hemostasis: I rinsed the area and cleaned it. We then placed Surgifoam directly on the wound. I overlaid that with some 4 x 4's and an ABD. We wrapped it gently with gauze and then with a 6 inch Balbir wrap with mild compression. It will be watched. Patient has been here for an hour and 15 minutes. There is no sign of bruising or bleeding. I think this started bleeding again because the dressing was taken off. This dressing really needs to remain on for the next day. If the Balbir wrap seems too tight that can be loosened but the dressing should be kept applied. She is on Eliquis. She has some mild oozing from wound diffusely. She has no other complaints of bleeding in any other areas. As long as this has some compression kept on it she should develop a clot. There is nothing that is amenable to cauterization that I am seeing at this time. The wound was examined cleaned and irrigated and I see no specific vessel or focus that I can cauterize. Discharge Plan Triage Chief Complaint: Wound Check ED Provider: Cristobal Escalona Dx/Rx/DC Orders Clinical Impression: Bleeding from wound Instructions: ED Post Op Wound Check, Bleeding Prescriptions: No Action cholecalciferol (vitamin D3) 2,000 unit capsule 2,000 unit PO DAILY RF: 0 atorvastatin 20 mg tablet 20 mg PO QHS RF: 0 magnesium hydroxide [Milk of Magnesia] 400 mg/5 mL suspension 30 ml PO DAILY PRN (Reason: Constipation) RF: 0 furosemide [Lasix] 20 mg tablet 20 mg PO DAILY RF: 0 metformin 500 mg tablet 500 mg PO DAILY RF: 0 famotidine 20 mg tablet 20 mg PO DAILY RF: 0 biotin 1 mg capsule 1 mg PO DAILY RF: 0 Biofreeze (menthol) 4 % gel 1 applic topical DAILY RF: 0 All Day Allergy (cetirizine) 10 mg capsule 10 mg PO DAILY PRN (Reason: allergies) RF: 0 ferrous sulfate 325 mg (65 mg iron) tablet,delayed release (DR/EC) 325 mg PO DAILY RF: 0 pilocarpine HCl 5 mg tablet 5 mg PO TID RF: 0 tramadol 50 mg tablet 50 mg PO BID PRN (Reason: Pain) RF: 0 multivitamin,fl-vjcs-dcpwtwxy 1 TABLET tablet 1 tab PO DAILY RF: 0 escitalopram oxalate 10 MG tablet 20 mg PO DAILY RF: 0 gabapentin 300 mg capsule 600 mg PO BID RF: 0 oxybutynin chloride 10 MG tablet extended release 24hr 15 mg PO DAILY RF: 0 acetaminophen 325 MG tablet 650 mg PO Q6H PRN PRN (Reason: Pain/Fever>100.4) RF: 0 Eliquis 5 mg Tablet 5 mg PO BID RF: 0 aspirin [Adult Low Dose Aspirin] 81 mg tablet,delayed release (DR/EC) 81 mg PO DAILY Qty: 30 RF: 12 diltiazem HCl 240 mg capsule,extended release 24hr 240 mg PO DAILY Qty: 30 RF: 12 (DME) oxygen 2L NC 0 .Route .MEDSUPPLY Qty: 1 RF: 0 potassium chloride 20 mEq tablet extended release 20 meq PO DAILY Qty: 30 RF: 12 magnesium oxide 400 mg magnesium tablet 400 mg PO DAILY Qty: 30 RF: 12 norethindrone acetate [Aygestin] 5 mg tablet 5 mg PO .COMPLEX Qty: 45 RF: 0 enoxaparin [Lovenox] 80 mg/0.8 mL syringe 85 mg subcut Q12H Qty: 8 RF: 1 doxycycline hyclate 100 mg tablet 100 mg PO BID Qty: 20 RF: 0 Primary Care Provider: Albert Jarvis Chi Referrals: Albert Jarvis Chi, MD [Primary Care Provider] - 1-2 Days if not improving Activity Restrictions/Additional Instructions: Leave dressing on for at least 24 hours unless it feels too tight. May leave on for up to 48 hours before changing. Moisten before changing to avoid disruption of the wound. Surgical foam dressing can be left in place. Disposition Disposition: Senior Care Facility Discharge Location: [facility] Discharge Date/Time: 07/24/21 01:50
--- NOTE | 2021-07-24 00:49 | ED.RN ---
[facility] CALLED TO TRANSPORT PATIENT BACK TO [facility]ENUE. ETA 30-45 MINUTES
--- NOTE | 2021-07-24 05:11 | EX.ED.DYSGE1 ---
HPI History of Present Illness Chief Complaint: Wound Check Informant: patient Narrative Narrative: Patient returns with continued bleeding from her left leg. She had been seen earlier in the day. I saw her then on the second visit. We wrapped this. We watch this for over an hour. There is no sign of bleeding. When she went back to the nursing facility evidently she has started to get blood in the lower portion of the dressing. They then change the dressing. The bleeding is then gotten worse since they have changed this. Patient is on Eliquis for history of atrial fibrillation. She has no other complaints of bleeding issues. She does not feel ill. She is not having pain. [facility] Medical History Anemia Depression Essential hypertension Femur fracture, left GERD (gastroesophageal reflux disease) Hyperlipidemia Mitral stenosis Non-rheumatic mitral valve stenosis Nonrheumatic aortic (valve) stenosis Nonrheumatic aortic (valve) stenosis CHIDI (obstructive sleep apnea) Other secondary pulmonary hypertension Pulmonary hypertension Type 2 diabetes mellitus Home Medications escitalopram oxalate 20 mg PO DAILY 03/24/15 [History Last Taken 07/17/18] multivitamin,fx-[id number] 1 tab PO DAILY 03/24/15 [History Last Taken 07/17/18] oxybutynin chloride 15 mg PO DAILY 03/30/18 [History Last Taken 07/17/18] acetaminophen 650 mg PO Q6H PRN PRN tab 07/21/18 [Rx Last Taken Unknown] cholecalciferol (vitamin D3) 50 mcg (2,000 unit) capsule 2,000 unit PO DAILY 10/07/18 [History Last Taken Unknown] atorvastatin 20 mg tablet 20 mg PO QHS 05/24/20 [History Last Taken Unknown] gabapentin 300 mg capsule 300 mg PO BID cap 05/24/20 [History Last Taken Unknown] magnesium hydroxide 400 mg/5 mL oral suspension 30 ml PO DAILY PRN ml 05/24/20 [History Last Taken Unknown] furosemide 20 mg tablet 20 mg PO DAILY 11/15/20 [History Last Taken Unknown] metformin 500 mg tablet 500 mg PO BID 11/15/20 [History Last Taken 12/11/20] aspirin 81 mg tablet,delayed release 81 mg PO DAILY #30 tab 11/28/20 [Rx Last Taken 12/12/20] diltiazem HCl 240 mg capsule,extended release 24 hr 240 mg PO DAILY #30 cap 12/12/20 [Rx Last Taken Unknown] oxygen #1 ea 12/12/20 [Rx Last Taken Unknown] potassium chloride 20 mEq tablet,extended release 20 meq PO DAILY #30 tab 12/15/20 [Rx Last Taken Unknown] magnesium oxide 400 mg PO DAILY #30 tab 12/29/20 [Rx Last Taken Unknown] biotin 1 mg capsule 5 mg PO DAILY 01/10/21 [History Last Taken Unknown] cetirizine 10 mg capsule 10 mg PO DAILY 01/10/21 [History Last Taken Unknown] ferrous sulfate 325 mg (65 mg iron) tablet,delayed release 325 mg PO DAILY 01/10/21 [History Last Taken Unknown] menthol 4 % topical gel 1 applic TOPICAL DAILY 01/10/21 [History Last Taken Unknown] tramadol 50 mg tablet 50 mg PO BID PRN 01/10/21 [History Last Taken Unknown] famotidine 20 mg tablet 20 mg PO DAILY 01/11/21 [History Last Taken Unknown] norethindrone acetate 5 mg tablet 5 mg PO .COMPLEX #45 tab 02/20/21 [Rx Last Taken Unknown] enoxaparin 80 mg/0.8 mL subcutaneous syringe 85 mg SUBCUT Q12H #8 ml 03/06/21 [Rx Last Taken Unknown] apixaban [Eliquis] 5 mg PO BID 03/09/21 [History Last Taken Unknown] doxycycline hyclate 100 mg tablet 100 mg PO BID #20 tab 03/15/21 [Rx Last Taken Unknown] bupropion HCl 37.5 mg PO DAILY 07/24/21 [History Last Taken Unknown] escitalopram oxalate [Lexapro] 5 mg PO DAILY 07/24/21 [History Last Taken Unknown] pilocarpine HCl 5 mg PO TID 07/24/21 [History Last Taken Unknown] Allergy/AdvReac Type Severity Reaction Status Date / Time lisinopril AdvReac Intermediate Unknown Verified 07/24/21 05:01 penicillin G AdvReac Intermediate Unknown Verified 07/24/21 05:01 exenatide [From Byetta] AdvReac Unknown Unknown Verified 07/24/21 05:01 Family History Sister CAD (coronary artery disease) Hx of CABG Surgical History History of cholecystectomy History of hernia repair History of left heart catheterization (LHC) (~12/12/20) History of partial colectomy History of total left knee replacement Social History housing: long term number of children: 0 current occupational status: retired Smoking Status: Former smoker alcohol intake: never additional social history: single ROS ROS ED Constitutional Constitutional ED: Denies chills or fever(s) ENT ENT ED: Denies rhinorrhea or sore throat Cardiovascular Cardiovascular: Denies palpitations Respiratory/Chest Respiratory/Chest: Denies cough, dyspnea or sputum Gastrointestinal Gastrointestinal: Denies diarrhea, nausea or vomiting Genitourinary Genitourinary ED: Denies hematuria Musculoskeletal Musculoskeletal: Denies myalgias Integumentary Reports other Details: See history of present illness. Neurologic Neurologic: Denies headache(s) Endocrine Endocrinology: Denies polydipsia or polyuria Hematologic/Lymphatic Hematologic/Lymphatic: Reports easy bleeding and easy bruising Allergic/Immunologic Allergic/Immunologic ED: Denies urticaria EXAM Physical Exam Const Vital Signs: 07/23/21 23:42 07/23/21 23:47 Temperature 96.6 F L Temperature Source Temporal Pulse Rate 86 Respiratory Rate 18 Blood Pressure 116/69 Blood Pressure Mean 84 Pulse Ox 94 Oxygen Delivery Method Nasal Cannula Oxygen Flow Rate (L/min) 2 Positive well nourished and well developed General Appearance ED: well developed and NAD HEENT Reports moist mucous membranes Eyes General Eye ED: Negative for pale conjunctiva or scleral icterus Neck no JVD Resp normal respiratory effort Cardio regular rate and regular rhythm GI normal to inspection, nondistended, normoactive bowel sounds and non-tender Palpation: soft Extremity Extremity Narrative: And has the 6 or so centimeter round erosions/lesion on the left anterior barrientos. This time she actually has a moderate amount of blood on the dressings. It was taken down. I still see just a generalized ooze from this. There is nothing pulsatile or focal draining. Neuro Sensorium / Orientation: alert Psych mental status grossly normal MDM MDM MDM Narrative Medical decision making narrative: Patient's blood showed essentially normal coags. Electrolytes are unremarkable other than mild elevation in the BUN to creatinine ratio. Glucose was also been elevated at 183. Hemoglobin was low at 10.6. However, the last hemoglobin I have for this patient is about a year and a half ago. She has been at the nursing facility for about that long. Procedure: Cauterization of wound: I placed LET on the wound. We were then able to irrigate the wound. With irrigation I then noticed a small piece of tissue on the wound whose edge flipped up with irrigation this time. Oozing was coming diffusely around this. However, this did not appear to be actually her tissue. This edge was lifted and then removed and I think this was a prior piece of Surgifoam. This had appeared to be the base of the wound with granulation tissue. Once this was removed we could actually see 1 spot that had oozing. It was not pulsatile. This area was cauterized with silver nitrate. We have now watched it for about 10 minutes with no dressing and there is no bleeding. We have cleaned up the rest of her leg. We moved her leg and scrub the area near it. We will watch it further to make sure we have no further bleeding. 06: 05 Wound was rechecked. It is still uncovered. There is no bleeding at all. We will continue to watch and recheck this. I still plan to put spray thrombin and Surgifoam on this wound before dressing but I want to make sure it stays dry without any gauze compression or other therapy rather than cauterization that has been done 06: 25 Wound is still completely dry. There is no bleeding whatsoever. 06: 40 Wound is still completely dry. It was left open. There is no blood or drainage whatsoever. Out of precaution, I then put Surgifoam with some spray thrombin over the wound. We put a few 4 x 4's and an ABD to smooth out the area. I then gently wrapped it with Balbir wrap. She is still being watched. But I think we finally got the bleeding stopped. We found one vessel that was the issue and then we cauterize that. I think she should do well this time. She otherwise feels fine and has no complaints. Lab Data Attestation: I reviewed the patient's lab results. Labs: Laboratory Results - last 24 hr 07/24/21 07/24/21 07/24/21 05:10 05:10 05:10 WBC 8.2 RBC 3.49 L Hgb 10.6 L Hct 34.3 L MCV 98.3 MCH 30.4 MCHC 30.9 L RDW Std Deviation 50.6 H RDW Coeff of Merly 14.3 Plt Count 211 MPV 10.7 Immature Gran % (Auto) 0.500 Neut % (Auto) 76.8 H Lymph % (Auto) 15.3 L [place] % (Auto) 6.0 Eos % (Auto) 1.0 Baso % (Auto) 0.4 Absolute Neuts (auto) 6.3 Absolute Lymphs (auto) 1.26 Nucleated RBC % 0 PT 15.2 H INR 1.3 APTT 31.0 Sodium 141 Potassium 4.5 Chloride 107 Carbon Dioxide 31.0 Anion Gap 3 L BUN 23 H Creatinine 0.62 Estim Creat Clear Calc 43.91 Est GFR (MDRD) Af Amer 121 Est GFR (MDRD) Non-Af 100 BUN/Creatinine Ratio 37.0 H Glucose 183 H Calcium 8.1 L Discharge Plan Triage Chief Complaint: Wound Check ED Provider: Cristobal Escalona Dx/Rx/DC Orders Clinical Impression: Bleeding from wound Instructions: ED Post Op Wound Check, Bleeding Prescriptions: No Action cholecalciferol (vitamin D3) 2,000 unit capsule 2,000 unit PO DAILY RF: 0 atorvastatin 20 mg tablet 20 mg PO QHS RF: 0 magnesium hydroxide [Milk of Magnesia] 400 mg/5 mL suspension 30 ml PO DAILY PRN (Reason: Constipation) RF: 0 furosemide [Lasix] 20 mg tablet 20 mg PO DAILY RF: 0 metformin 500 mg tablet 500 mg PO BID RF: 0 famotidine 20 mg tablet 20 mg PO DAILY RF: 0 biotin 1 mg capsule 5 mg PO DAILY RF: 0 Biofreeze (menthol) 4 % gel 1 applic topical DAILY RF: 0 All Day Allergy (cetirizine) 10 mg capsule 10 mg PO DAILY RF: 0 ferrous sulfate 325 mg (65 mg iron) tablet,delayed release (DR/EC) 325 mg PO DAILY RF: 0 tramadol 50 mg tablet 50 mg PO BID PRN (Reason: Pain) RF: 0 multivitamin,et-jfcl-cnezsgzm 1 TABLET tablet 1 tab PO DAILY RF: 0 escitalopram oxalate 10 MG tablet 20 mg PO DAILY RF: 0 gabapentin 300 mg capsule 300 mg PO BID RF: 0 oxybutynin chloride 10 MG tablet extended release 24hr 15 mg PO DAILY RF: 0 acetaminophen 325 MG tablet 650 mg PO Q6H PRN PRN (Reason: Pain/Fever>100.4) RF: 0 Eliquis 5 mg Tablet 5 mg PO BID RF: 0 bupropion HCl 75 mg Tablet 37.5 mg PO DAILY RF: 0 pilocarpine HCl 5 mg tablet 5 mg PO TID RF: 0 escitalopram oxalate [Lexapro] 5 mg Tablet 5 mg PO DAILY RF: 0 aspirin [Adult Low Dose Aspirin] 81 mg tablet,delayed release (DR/EC) 81 mg PO DAILY Qty: 30 RF: 12 diltiazem HCl 240 mg capsule,extended release 24hr 240 mg PO DAILY Qty: 30 RF: 12 (DME) oxygen 2L NC 0 .Route .MEDSUPPLY Qty: 1 RF: 0 potassium chloride 20 mEq tablet extended release 20 meq PO DAILY Qty: 30 RF: 12 magnesium oxide 400 mg magnesium tablet 400 mg PO DAILY Qty: 30 RF: 12 norethindrone acetate [Aygestin] 5 mg tablet 5 mg PO .COMPLEX Qty: 45 RF: 0 enoxaparin [Lovenox] 80 mg/0.8 mL syringe 85 mg subcut Q12H Qty: 8 RF: 1 doxycycline hyclate 100 mg tablet 100 mg PO BID Qty: 20 RF: 0 Primary Care Provider: Albert Jarvis Chi Referrals: Albert Jarvis Chi, MD [Primary Care Provider] - 1-2 Days if not improving Activity Restrictions/Additional Instructions: Leave dressing on for at least 24 hours unless it feels too tight. May leave on for up to 48 hours before changing. Moisten before changing to avoid disruption of the wound. Surgical foam dressing can be left in place. Wound has been cauterized. It was left exposed to the air for 30 to 45 minutes. There is absolutely no bleeding whatsoever. We then still wrapped it for further protection. Disposition Disposition: Intermediate Facility Discharge Location: [facility] Discharge Date/Time: 07/24/21 01:50
[2021-07-24 05:24] LABS: Absolute Lymphocyte Count 1.26 X10^3/uL (0.83-4.51); Absolute Neutrophil Count 6.3 X10^3/uL (2.0-7.7); Basophil# 0.03 X10^3/uL; Basophil% 0.4 % (0-1); Eosinophil# 0.08 X10^3/uL; Hematocrit 34.3 % (37-47); Hemoglobin 10.6 g/dL (12.0-15.0); Lymphocyte # 1.26 X10^3/ul (0.83-4.51); Lymphocyte % 15.3 % (19-41); Mean Corp Hgb Conc 30.9 g/dL (32-36); Mean Corpuscular Hgb 30.4 pg (27.0-32.0); Mean Corpuscular Volume 98.3 fL (81-99); Mean Platelet Vol. 10.7 fl (6.2-12.0); Monocyte# 0.49 X10^3/uL; NRBC Flagged by Analyzer 0 % (0-5); Neutrophil # 6.31 X10^3/uL (2.7-7.7); Neutrophil % 76.8 % (47-70); Platelet Count 211 K/mm3 (150-450); RBC Distribution Width CV 14.3 % (11.6-14.6); RBC Distribution Width SD 50.6 fl (35.1-43.9); Red Blood Count 3.49 M/mm3 (4.2-5.4); White Blood Count 8.2 K/mm3 (4.4-11.0)
[2021-07-24 05:36] LABS: International Normalized Ratio 1.3; Prothrombin Time (Protime)PT. 15.2 SECONDS (11.7-14.9)
[2021-07-24 05:45] LABS: Anion Gap 3 (5-15); BUN 23 mg/dL (7-18); Calcium,Total 8.1 mg/dL (8.5-10.1); Chloride 107 mmol/L (98-107); Creatinine, Serum 0.62 mg/dL (0.55-1.02); EST Glomerular Filtration Rate 100 mL/min (>60); Est Glom Filt Rate - Afr Amer 121 mL/min (>60); Estimated Creatinine Clearance 43.91 ml/min; Glucose 183 mg/dL (74-106); Potassium 4.5 mmol/L (3.5-5.1); Sodium Level 141 mmol/L (136-145)
== END 2021-07-24 01:50 ==
PROVIDERS: Emergency Provider Emergency Medicine; PCP Family Medicine Geriatric Medicine; Visit Provider Emergency Medicine
DX: L76.21 Postprocedural hemorrhage of skin and subcutaneous tissue following a dermatologic procedure (principal); I27.29 Other secondary pulmonary hypertension; Z68.41 Body mass index [BMI] 40.0-44.9, adult; E11.9 Type 2 diabetes mellitus without complications; Z87.891 Personal history of nicotine dependence; E78.5 Hyperlipidemia, unspecified; I10 Essential (primary) hypertension; K21.9 Gastro-esophageal reflux disease without esophagitis; I35.0 Nonrheumatic aortic (valve) stenosis; F32.A Depression, unspecified; G47.33 Obstructive sleep apnea (adult) (pediatric); Z79.899 Other long term (current) drug therapy; Z79.84 Long term (current) use of oral hypoglycemic drugs; Z79.01 Long term (current) use of anticoagulants; E66.9 Obesity, unspecified; Y84.9 Medical procedure, unspecified as the cause of abnormal reaction of the patient, or of later complication, without mention of misadventure at the time of the procedure; Y92.9 Unspecified place or not applicable
CPT/HCPCS: 80048; 85025; 85610; 85730; 99284; A4216

== ENCOUNTER 2021-07-24 04:54 | Emergency (ER) | payer MEDICARE, MEDICAID, SELFPAY ==
[2021-07-24 04:55] VITALS: BP 125/79; PULSE 88; RESP 18; TEMP 36.4; O2SAT 94; BMI 16.8
--- NOTE | 2021-07-24 07:06 | NURSING ---
called squad, eta is 30 min
[2021-07-24 07:59] VITALS: BP 120/68; PULSE 86; RESP 16; O2SAT 95
== END 2021-07-24 08:21 | disposition home or self-care (01) ==
PROVIDERS: Emergency Provider Emergency Medicine; PCP Family Medicine; Visit Provider Emergency Medicine
DX: Z00.00 Encounter for general adult medical examination without abnormal findings (principal)
CPT/HCPCS: A4216

== ENCOUNTER 2022-01-15 14:13 | Inpatient (IN) | payer MEDICARE, MEDICAID, SELFPAY ==
[2022-01-15] VITALS (13 sets, daily range): BP systolic 82–104; BP diastolic 26–91; PULSE 68–105; RESP 14–24; TEMP 36.1–36.8; O2SAT 85–98; BMI 37.8; BMI 38.1
--- NOTE | 2022-01-15 14:28 | ED.RN ---
PA FROM [facility] BRINGS PT TO ER. PT PRESENTS WITH ALTERED MENTAL STATUS & INCREASED SWELLING TO EXTREMITIES. PT WEARS CHRONIC 2L O2. PA STATES PTS OXYGEN TANK WAS EMPTY UPON ARRIVAL TO [facility]. PT PRESENTS WITH 85% O2, 4 L O2 APPLIED- O2 INCREASED TO 95%. PT IS IN A WHEELCHAIR WITH A MELINDA BLANKET UNDERNEATH, PT IS UNABLE TO ASSIST WITH MOVEMENT.
--- NOTE | 2022-01-15 14:36 | EKG12_ITS ---
Test Reason : Alt loc Blood Pressure : / mmHG Vent. Rate : 101 BPM Atrial Rate : 000 BPM P-R Int : 000 ms QRS Dur : 066 ms QT Int : 302 ms P-R-T Axes : 000 010 189 degrees QTc Int : 391 ms Atrial fibrillation with rapid ventricular response Low voltage QRS Cannot rule out Inferior infarct , age undetermined Possible Anterolateral infarct , age undetermined Abnormal ECG Confirmed by EDWIN BLACK, QUINN ([id number]), legal editor ALBERTO MANSFIELD ([id number]) on 01/16/2022 11:08:54 AM Referred By: Shayne Confirmed By:QUINN PINEDA MD
--- NOTE | 2022-01-15 14:38 | EX.ED.DYSGE1 ---
HPI History of Present Illness Chief Complaint: Alt LOC Narrative Narrative: Patient presents from Dr. Rucker's office with concern for CHF. She states that she lives in a condo at the [place]. Reportedly, she received an injection for pain by Dr. Marlon Cedeño. She had been given Versed. When she was seen in the office, there was concern that she is fluid overloaded and edematous. She states she usually wears 2 L of oxygen at all times. She denies any fevers or chills. No cough. She currently denies any pain. No shortness of breath. She denies other symptoms. Review of her EMR reveals past medical history of neuropathic pain, type 2 diabetes, chronic lower extremity edema, atrial fibrillation, pulmonary hypertension, and obstructive sleep apnea. [facility] Medical History (Reviewed 09/12/21 @ 08:17 by Eun Feng STANDARD MACHINE STITCHER, STANDARD MACHINE STITCHER-C) Anemia Depression Essential hypertension Femur fracture, left GERD (gastroesophageal reflux disease) Hyperlipidemia Mitral stenosis Non-rheumatic mitral valve stenosis Nonrheumatic aortic (valve) stenosis Nonrheumatic aortic (valve) stenosis CHIDI (obstructive sleep apnea) Other secondary pulmonary hypertension Pulmonary hypertension Type 2 diabetes mellitus Home Medications multivitamin,[id number] 27 mg-0.4 mg tablet 1 tab PO DAILY supplement 03/24/15 [History Last Taken 07/17/18] oxybutynin chloride 10 mg tablet,extended release 24 hr 15 mg PO DAILY bladder 03/30/18 [History Last Taken 07/17/18] acetaminophen 325 mg tablet 650 mg PO Q6H PRN PRN Pain/Fever>100.4 07/21/18 [Rx Last Taken Unknown] cholecalciferol (vitamin D3) 50 mcg (2,000 unit) capsule 2,000 unit PO DAILY 10/07/18 [History Last Taken Unknown] atorvastatin 20 mg tablet 20 mg PO QHS 05/24/20 [History Last Taken Unknown] gabapentin 300 mg capsule 300 mg PO BID Nerve Pain 05/24/20 [History Last Taken Unknown] magnesium hydroxide 400 mg/5 mL oral suspension (Milk of Magnesia) 30 ml PO DAILY PRN Constipation 05/24/20 [History Last Taken Unknown] metformin 500 mg tablet 500 mg PO BID 11/15/20 [History Last Taken 12/11/20] aspirin 81 mg tablet,delayed release (Adult Low Dose Aspirin) 81 mg PO DAILY #30 tabs 11/28/20 [Rx Last Taken 12/12/20] diltiazem HCl 240 mg capsule,extended release 24 hr 240 mg PO DAILY #30 caps 12/12/20 [Rx Last Taken Unknown] oxygen #1 ea 12/12/20 [Rx Last Taken Unknown] potassium chloride 20 mEq tablet,extended release 20 meq PO DAILY #30 tabs 12/15/20 [Rx Last Taken Unknown] magnesium oxide 400 mg PO DAILY #30 tabs 12/29/20 [Rx Last Taken Unknown] biotin 1 mg capsule 5 mg PO DAILY 01/10/21 [History Last Taken Unknown] cetirizine 10 mg capsule (All Day Allergy (cetirizine)) 10 mg PO QHS 01/10/21 [History Last Taken Unknown] ferrous sulfate 325 mg (65 mg iron) tablet,delayed release 325 mg PO DAILY 01/10/21 [History Last Taken Unknown] menthol 4 % topical gel (Biofreeze (menthol)) 1 applic topical DAILY 01/10/21 [History Last Taken Unknown] tramadol 50 mg tablet 50 mg PO 4X/DAY 01/10/21 [History Last Taken Unknown] famotidine 20 mg tablet 20 mg PO DAILY 01/11/21 [History Last Taken Unknown] apixaban 5 mg tablet (Eliquis) 5 mg PO BID 03/09/21 [History Last Taken Unknown] escitalopram oxalate 5 mg tablet (Lexapro) 5 mg PO DAILY 07/24/21 [History Last Taken Unknown] pilocarpine HCl 5 mg tablet 5 mg PO TID 07/24/21 [History Last Taken Unknown] zinc oxide 20 % topical ointment 1 applic topical 4-6XD PRN irritation 08/23/21 [History Last Taken Unknown] polyethylene glycol 3350 17 gram/dose oral powder (Miralax) 17 g PO DAILY 09/12/21 [History Last Taken Unknown] albuterol sulfate 90 mcg/actuation aerosol inhaler 2 puff inhalation Q6H PRN sob 01/15/22 [History Last Taken Unknown] furosemide 20 mg tablet (Lasix) 40 mg PO DAILY 01/15/22 [History Last Taken Unknown] Allergy/AdvReac Type Severity Reaction Status Date / Time lisinopril AdvReac Intermediate Unknown Verified 01/15/22 12:54 penicillin G AdvReac Intermediate Unknown Verified 01/15/22 12:54 exenatide [From [place]] AdvReac Unknown Unknown Verified 01/15/22 12:54 Family History (Reviewed 09/12/21 @ 08:17 by Eun Feng STANDARD MACHINE STITCHER, STANDARD MACHINE STITCHER-C) Sister CAD (coronary artery disease) Hx of CABG Surgical History History of cholecystectomy History of dilatation and curettage History of hernia repair History of left heart catheterization (LHC) (~12/12/20) History of partial colectomy History of total left knee replacement Social History housing: [employer] number of children: 0 current occupational status: retired Smoking Status: Former smoker alcohol intake: never additional social history: single ROS ROS ED ROS Narrative Constitutional: No fever, no chills. HEENT: No sore throat. No neck pain. No loss of vision. No rhinorrhea. Cardiovascular: No chest pain. No palpitations. No pedal edema. Respiratory: No cough, no shortness of breath. Abdominal: No abdominal pain. No nausea. No vomiting. Genitourinary: No dysuria. No hematuria. Musculoskeletal: No myalgias. No arthralgias. Neurologic: No headaches. No dizziness. No lightheadedness. Skin: No rash. No change in color. Psychiatric: No depression. No anxiety. EXAM Physical Exam Narrative Exam Narrative: Afebrile. Vital signs noted. HEENT: Normocephalic. Atraumatic. PERRL, EOMI. Neck soft and supple. No point tenderness or step off. Cardiovascular: Regular rate and rhythm. No murmurs, rubs, or gallops appreciated. Respiratory: No tachypnea. Lungs clear to auscultation bilaterally. Gastrointestinal: Abdomen soft, nontender, with normoactive bowel sounds. No rebound or guarding. Neurological: Awake. Alert. Oriented to person, place, and time/year. Nonfocal, nonlateralizing. Skin: No rash. Normal color. No pallor. Musculoskeletal: Bilateral symmetric pedal edema. Full range of motion extremities. Const Vital Signs: 01/15/22 14:16 01/15/22 14:43 01/15/22 14:44 Temperature 97 F L Temperature Source Temporal Pulse Rate 95 96 Respiratory Rate 19 H 20 H Respiratory Effort Respiratory Pattern Blood Pressure 93/57 L 83/26 L Blood Pressure Mean 69 45 Pulse Ox 85 95 95 Oxygen Delivery Method Nasal Cannula Nasal Cannula Nasal Cannula Oxygen Flow Rate (L/min) 2 4 4 01/15/22 14:46 01/15/22 15:15 Temperature Temperature Source Pulse Rate 103 H Respiratory Rate 16 Respiratory Effort Normal Non-Labored Respiratory Pattern Normal Blood Pressure 101/78 Blood Pressure Mean 85 Pulse Ox 95 Oxygen Delivery Method Nasal Cannula Oxygen Flow Rate (L/min) 4 MDM MDM MDM Narrative Medical decision making narrative: Patient is hypotensive systolically in the 90s upon arrival. . Reported concern is for CHF. I will obtain a chest x-ray along with EKG, troponin, BNP, and CBC with CMP. Chest x-ray shows no evidence of CHF, there is either focal pneumonia versus pulmonary nodule. She has slightly elevated white count of 13.3, hemoglobin stable at 12.0, hematocrit 38.0. Platelet count normal at 253. INR is elevated at 3.6, lactic acid elevated at 4.1. EKG demonstrates atrial fibrillation with rapid ventricular response at [address] changes. High-sensitivity troponin normal at 10. Urinalysis is a catheterized specimen and shows 10-25 WBCs. Initially, I will treat her with Levaquin, but in discussion with Dr. Finch, he requested that she be given Rocephin. She has received cefazolin in the past. BNP is only slightly elevated in the 190s. Was thought that this is more acute on chronic diastolic heart failure as she does appear edematous. I will refrain from diuresing her given her soft blood pressure. She will be given a bolus of fluids along with the antibiotic. I feel she can be admitted to the PCU safely with the diagnoses of acute cystitis, acute on chronic respiratory failure, and acute on chronic diastolic heart failure. Disposition is admit to the PCU in stable condition. Lab Data Labs: Laboratory Results - last 24 hr 01/15/22 01/15/22 01/15/22 14:50 15:00 15:00 WBC 13.3 H RBC 4.03 L Hgb 12.0 Hct 38.0 MCV 94.3 MCH 29.8 MCHC 31.6 L RDW Std Deviation 75.0 H RDW Coeff of Merly 21.5 H Plt Count 253 MPV 11.7 Immature Gran % (Auto) 0.500 Neut % (Auto) 91.3 H Lymph % (Auto) 5.1 L [place] % (Auto) 2.9 Eos % (Auto) 0.0 Baso % (Auto) 0.2 Absolute Neuts (auto) 12.1 H Absolute Lymphs (auto) 0.68 L Nucleated RBC % 0 Differential Comment SCANNED Anisocytosis 2+ Microcytosis 1+ Macrocytosis 1+ PT 35.5 H INR 3.6 APTT 42.6 H Sodium Potassium Chloride Carbon Dioxide Anion Gap BUN Creatinine Estim Creat Clear Calc Est GFR (MDRD) Af Amer Est GFR (MDRD) Non-Af BUN/Creatinine Ratio Glucose Lactic Acid Calcium Total Bilirubin AST ALT Alkaline Phosphatase Troponin I High Sens B-Natriuretic Peptide Total Protein Albumin Globulin Albumin/Globulin Ratio Urine Color Urine Clarity Urine pH Ur Specific [place] Urine Protein Urine Glucose (UA) Urine Ketones Urine Occult Blood Urine Nitrite Urine Bilirubin Urine Urobilinogen Ur Leukocyte Esterase Urine RBC Urine WBC Ur Squamous Epith Cells Urine Bacteria Urine Mucus POC Glucose 183 H 01/15/22 01/15/22 01/15/22 15:00 15:00 15:00 WBC RBC Hgb Hct MCV MCH MCHC RDW Std Deviation RDW Coeff of Merly Plt Count MPV Immature Gran % (Auto) Neut % (Auto) Lymph % (Auto) [place] % (Auto) Eos % (Auto) Baso % (Auto) Absolute Neuts (auto) Absolute Lymphs (auto) Nucleated RBC % Differential Comment Anisocytosis Microcytosis Macrocytosis PT INR APTT Sodium 137 Potassium 4.5 Chloride 101 Carbon Dioxide 31.0 Anion Gap 5 BUN 27 H Creatinine 0.74 Estim Creat Clear Calc 43.27 Est GFR (MDRD) Af Amer 98 Est GFR (MDRD) Non-Af 81 BUN/Creatinine Ratio 36.2 H Glucose 181 H Lactic Acid 4.1 H* Calcium 7.8 L Total Bilirubin 0.90 AST 26 ALT 37 Alkaline Phosphatase 122 H Troponin I High Sens 10 B-Natriuretic Peptide 191.2 H Total Protein 4.7 L Albumin 1.5 L Globulin 3.2 Albumin/Globulin Ratio 0.5 L Urine Color Urine Clarity Urine pH Ur Specific [place] Urine Protein Urine Glucose (UA) Urine Ketones Urine Occult Blood Urine Nitrite Urine Bilirubin Urine Urobilinogen Ur Leukocyte Esterase Urine RBC Urine WBC Ur Squamous Epith Cells Urine Bacteria Urine Mucus POC Glucose 01/15/22 15:00 WBC RBC Hgb Hct MCV MCH MCHC RDW Std Deviation RDW Coeff of Merly Plt Count MPV Immature Gran % (Auto) Neut % (Auto) Lymph % (Auto) [place] % (Auto) Eos % (Auto) Baso % (Auto) Absolute Neuts (auto) Absolute Lymphs (auto) Nucleated RBC % Differential Comment Anisocytosis Microcytosis Macrocytosis PT INR APTT Sodium Potassium Chloride Carbon Dioxide Anion Gap BUN Creatinine Estim Creat Clear Calc Est GFR (MDRD) Af Amer Est GFR (MDRD) Non-Af BUN/Creatinine Ratio Glucose Lactic Acid Calcium Total Bilirubin AST ALT Alkaline Phosphatase Troponin I High Sens B-Natriuretic Peptide Total Protein Albumin Globulin Albumin/Globulin Ratio Urine Color Yellow Urine Clarity Sl. Cloudy Urine pH 6.0 Ur Specific [place] 1.015 Urine Protein Negative Urine Glucose (UA) Normal Urine Ketones Negative Urine Occult Blood Negative Urine Nitrite Negative Urine Bilirubin 1 H Urine Urobilinogen 1 H Ur Leukocyte Esterase 100 H Urine RBC 0-5 SEEN Urine WBC 10-25 SEEN Ur Squamous Epith Cells 0-5 SEEN Urine Bacteria 4+ Urine Mucus 0 SEEN POC Glucose Radiography Diagnostic Testing: Clinical Impression(s) from Imaging Studies Chest X-Ray 01/15/22 15:15 IMPRESSION: Poor inspiratory effort. 3.4 cm x 4.2 cm nodular density in the left lower lobe. This may represent either a pulmonary nodule versus focal pneumonia. Follow-up recommended. Electronically Signed: Bandar Mckeon MD at 15:36 EDT , Discharge Plan Dx/Rx/DC Orders Clinical Impression: Acute on chronic diastolic CHF (congestive heart failure), Acute cystitis, Acute on chronic respiratory failure Disposition Disposition: Acute Care Hospital [facility]
[2022-01-15 15:15] LABS: Mucous, Urine 0 SEEN /hpf (<or=2+)
--- NOTE | 2022-01-15 15:15 | RAD_ITS ---
STUDY: X-RAY CHEST REASON FOR EXAM: Female, 71 years old. Shortness of breath TECHNIQUE: Single AP portable view of the chest. COMPARISON: Comparison is made with prior study dated 12/07/2020. FINDINGS: EKG electrodes are seen. Poor inspiratory effort. There is a 3.4 cm x 4.2 solid nodular density in the left lower lobe. This may represent either a pulmonary mass or focal pneumonia. Follow-up is recommended. Blunting of both costophrenic angles. Normal size heart. Normal mediastinum and bala. Normal visualized pulmonary arteries. There is atherosclerotic calcification of the aortic arch with tortuosity. There are diffuse degenerative changes of the visualized thoracic spine. There is degenerative osteoarthritis of the bilateral shoulders. There is no demonstrated abnormality of the visualized soft tissue structures of the upper abdomen. RAD/Chest 1 View (Portable) IMPRESSION: Poor inspiratory effort. 3.4 cm x 4.2 cm nodular density in the left lower lobe. This may represent either a pulmonary nodule versus focal pneumonia. Follow-up recommended. Electronically Signed: Bandar Mckeon MD at 15:36 EDT ,
[2022-01-15 15:20] LABS: Absolute Lymphocyte Count 0.68 X10^3/uL (0.83-4.51); Absolute Neutrophil Count 12.1 X10^3/uL (2.0-7.7); Basophil# 0.02 X10^3/uL; Basophil% 0.2 % (0-1); Lymphocyte # 0.68 X10^3/ul (0.83-4.51); Lymphocyte % 5.1 % (19-41); Mean Corp Hgb Conc 31.6 g/dL (32-36); Mean Corpuscular Hgb 29.8 pg (27.0-32.0); Mean Corpuscular Volume 94.3 fL (81-99); Mean Platelet Vol. 11.7 fl (6.2-12.0); Monocyte# 0.38 X10^3/uL; Monocyte% 2.9 % (0-10); NRBC Flagged by Analyzer 0 % (0-5); Neutrophil % 91.3 % (47-70); POSITIVE MORPHOLOGY YES; Platelet Count 253 K/mm3 (150-450); RBC Distribution Width CV 21.5 % (11.6-14.6); Red Blood Count 4.03 M/mm3 (4.2-5.4); White Blood Count 13.3 K/mm3 (4.4-11.0)
[2022-01-15 15:21] LABS: Bedside Glucose 183 mg/dL (74-106)
[2022-01-15 15:28] LABS: Differential Indicated SCAN CRITERIA MET
[2022-01-15 15:32] LABS: Color, Urine Yellow (Yellow); Glucose, Dipstick Normal (Normal); International Normalized Ratio 3.6; Ketone-Dipstick Negative (Negative); Leukocyte Esterase-Dipstick 100 /ul (Negative); Nitrite-Dipstick Negative (Negative); Occult Blood-Urine Negative /ul (Negative); Partial Thromboplast Time 42.6 Seconds (24.1-36.2); Protein-Dipstick Negative (Negative); Prothrombin Time (Protime)PT. 35.5 SECONDS (11.7-14.9); Specific Gravity, Urine 1.015 (1.002-1.030); Urine Clarity Sl. Cloudy (Clear); Urine Urobilinogen 1 mg/dl (Normal)
[2022-01-15 15:33] LABS: Urine Bilirubin Dipstick 1 mg/dL (Negative)
[2022-01-15 15:35] LABS: BNP,B-Type NATRIURETIC PEPTIDE 191.2 pg/mL (0-100)
[2022-01-15 15:45] LABS: Anisocytosis 2+; Differential Comment SCANNED
[2022-01-15 15:46] LABS: Macrocytosis 1+; Microcytosis 1+
[2022-01-15 15:48] LABS: Bacteria 4+ /hpf (None Seen); Red Blood Cells-Urine 0-5 SEEN /hpf (0-5); Squamous Epithelial Cells - UA 0-5 SEEN /hpf (5-10); White Blood Cells 10-25 SEEN /hpf (0-5)
[2022-01-15 16:01] LABS: Lactic Acid 4.1 mmol/L (0.4-1.9)
[2022-01-15 16:02] LABS: ALB/GLOB Ratio 0.5 RATIO (0.9-2.4); AST(SGOT) 26 U/L (15-37); Alanine Aminotransfer ALT/SGPT 37 U/L (13-56); Albumin, Serum 1.5 g/dL (3.2-5.0); Alkaline Phosphatase 122 U/L (45-117); Anion Gap 5 (5-15); BUN 27 mg/dL (7-18); BUN/Creat Ratio 36.2 RATIO (10-20); Calcium,Total 7.8 mg/dL (8.5-10.1); Chloride 101 mmol/L (98-107); Creatinine, Serum 0.74 mg/dL (0.55-1.02); EST Glomerular Filtration Rate 81 mL/min (>60); Est Glom Filt Rate - Afr Amer 98 mL/min (>60); Estimated Creatinine Clearance 43.27 ml/min; Globulin 3.2 g/dL (2.2-4.2); Glucose 181 mg/dL (74-106); Potassium 4.5 mmol/L (3.5-5.1); Protein, Total 4.7 g/dL (6.4-8.2); Sodium Level 137 mmol/L (136-145); Troponin-I HS 10 pg/mL (3.0-54.0)
[2022-01-15] MEDS: levoFLOXacin IV 750 MG/150 ML BAG 100 MG IV (16:25)
[2022-01-15] MEDS: 0.9% Normal Saline 1,000 ML 999 ML IV (16:25)
--- NOTE | 2022-01-15 16:51 | ED.RN ---
called report to Hay[facility] at [facility] to inform of admission. pt's sister was here in ED and left.
--- NOTE | 2022-01-15 16:53 | HP.PCM_ITS ---
Documented by User: ROCHELLE Sandra 01/15/22 17:17 HPI - General General Date of Admission: 01/15/22 Date of Service: 01/15/22 HPI Narrative GARCÍA BURROWS, is a 71 F who presents with complaints of altered mental status. Patient was seen by Dr. Summers earlier today and then went to Dr. Rucker's office for an appointment. Patient was noted to be slumped over at Dr. Rucker's office and her oxygen tank was empty and patient was subsequently sent to the ER for evaluation. Patient was found to have a urinary tract infection and is requiring 4 L nasal cannula, baseline 2 L nasal cannula patient also found to have an elevated INR, on Eliquis. Patient has a medical history that includes pulmonary hypertension, hypertension, hyperlipidemia, diabetes mellitus type 2, CHIDI, atrial fibrillation, OAB. Patient lethargic but will arouse to shake head yes or no to answer questions. [facility] Medical History Anemia Depression Essential hypertension Femur fracture, left GERD (gastroesophageal reflux disease) Hyperlipidemia Mitral stenosis Non-rheumatic mitral valve stenosis Nonrheumatic aortic (valve) stenosis Nonrheumatic aortic (valve) stenosis CHIDI (obstructive sleep apnea) Other secondary pulmonary hypertension Pulmonary hypertension Type 2 diabetes mellitus Home Medications cholecalciferol (vitamin D3) 50 mcg (2,000 unit) capsule 2,000 unit PO DAILY SUPPLEMENT 10/07/18 [History Last Taken 01/15/22] atorvastatin 20 mg tablet 20 mg PO QHS CHOLESTEROL 05/24/20 [History Last Taken 01/14/22] gabapentin 300 mg capsule 300 mg PO BID Nerve Pain 05/24/20 [History Last Taken 01/15/22] metformin 500 mg tablet 500 mg PO BID DM 11/15/20 [History Last Taken 01/15/22] ferrous sulfate 325 mg (65 mg iron) tablet,delayed release 325 mg PO DAILY SUPPLEMENT 01/10/21 [History Last Taken 01/15/22] tramadol 50 mg tablet 50 mg PO 4X/DAY PAIN 01/10/21 [History Last Taken 2] famotidine 20 mg tablet 20 mg PO QHS GERD 01/11/21 [History Last Taken 01/14/22] apixaban 5 mg tablet (Eliquis) 5 mg PO BID AFIB 03/09/21 [History Last Taken 01/15/22] escitalopram oxalate 5 mg tablet (Lexapro) 5 mg PO DAILY DEPRESSION 07/24/21 [History Last Taken 01/15/22] pilocarpine HCl 5 mg tablet 5 mg PO TIDCM DRY MOUTH 07/24/21 [History Last Taken 01/15/22] polyethylene glycol 3350 17 gram/dose oral powder (Miralax) 17 g PO DAILY CONSTIPATION 09/12/21 [History Last Taken 01/15/22] acetaminophen 325 mg tablet 650 mg PO TID PAIN AND FEVER 01/15/22 [History Last Taken 01/15/22] albuterol sulfate 90 mcg/actuation aerosol inhaler 2 puff inhalation Q6H PRN sob 01/15/22 [History Last Taken Unknown] aspirin 81 mg tablet,delayed release (Adult Low Dose Aspirin) 81 mg PO DAILY HEART HEALTH 01/15/22 [History Last Taken 01/15/22] biotin 5 mg capsule 5 mg PO DAILY HAIR SKIN AND NAILS 01/15/22 [History Last Taken 01/15/22] bisacodyl 10 mg rectal suppository 10 mg SC DAILY PRN Constipation 01/15/22 [History Last Taken 01/12/22] cetirizine 10 mg tablet (Zyrtec) 10 mg PO QHS ALLERGIES 01/15/22 [History Last Taken 01/14/22] diltiazem HCl 240 mg capsule,extended release 24 hr 240 mg PO DAILY AFIB 01/15/22 [History Last Taken 01/15/22] furosemide 40 mg tablet (Lasix) 40 mg PO DAILY EDEMA 01/15/22 [History Last Taken 01/15/22] magnesium oxide 400 mg PO DAILY SUPPLEMENT 01/15/22 [History Last Taken 01/15/22] multivitamin 1 tab PO DAILY SUPPLEMENT 01/15/22 [History Last Taken 01/15/22] oxybutynin chloride 15 mg tablet,extended release 24 hr 15 mg PO DAILY BLADDER 01/15/22 [History Last Taken 01/15/22] potassium chloride 20 mEq tablet,extended release 20 meq PO DAILY SUPPLEMENT 01/15/22 [History Last Taken 01/15/22] sennosides 8.6 mg tablet (senna) 8.6 mg PO BID CONSTIPATION 01/15/22 [History Last Taken 01/15/22] Allergy/AdvReac Type Severity Reaction Status Date / Time lisinopril AdvReac Intermediate Unknown Verified 01/15/22 12:54 penicillin G AdvReac Intermediate Unknown Verified 01/15/22 12:54 exenatide [From Byetta] AdvReac Unknown Unknown Verified 01/15/22 12:54 Family History Sister CAD (coronary artery disease) Hx of CABG Surgical History History of cholecystectomy History of dilatation and curettage History of hernia repair History of left heart catheterization (LHC) (~12/12/20) History of partial colectomy History of total left knee replacement Social History housing: [facility] number of children: 0 current occupational status: retired Smoking Status: Former smoker alcohol intake: never additional social history: single ROS Constitutional Constitutional: Reports fatigue, malaise and weakness; Denies anorexia, change in weight or chills Cardiovascular Cardiovascular: Reports edema; Denies chest pain, palpitations or syncope Respiratory/Chest Respiratory/Chest: Reports shortness of breath at rest and shortness of breath with exertion; Denies cough or wheezing Gastrointestinal Gastrointestinal: Denies abdominal pain, constipation, diarrhea, nausea or vomiting Genitourinary Genitourinary: Reports urinary frequency Musculoskeletal Musculoskeletal: Denies back pain, extremity pain, joint pain, joint stiffness or joint swelling Integumentary Integumentary: Denies dry skin Neurologic Neurologic: Denies abnormal gait, abnormal speech, confusion or dizziness Psychiatric Psychiatric: Denies anxiety or depression Endocrine Endocrinology: Denies change in body appearance Hematologic/Lymphatic Hematologic/Lymphatic: Denies anemia Vital Signs Vital Signs Vital Signs: 01/15/22 14:16 01/15/22 14:43 01/15/22 14:44 Temperature 97 F L Temperature Source Temporal Pulse Rate 95 96 Respiratory Rate 19 H 20 H Respiratory Effort Respiratory Pattern Blood Pressure 93/57 L 83/26 L Blood Pressure Mean 69 45 Pulse Ox 85 95 95 Oxygen Delivery Method Nasal Cannula Nasal Cannula Nasal Cannula Oxygen Flow Rate (L/min) 2 4 4 01/15/22 14:46 01/15/22 15:15 01/15/22 16:26 Temperature 97.3 F L Temperature Source Temporal Pulse Rate 103 H 105 H Respiratory Rate 16 24 H Respiratory Effort Normal Non-Labored Respiratory Pattern Normal Blood Pressure 101/78 97/63 Blood Pressure Mean 85 74 Pulse Ox 95 95 Oxygen Delivery Method Nasal Cannula Nasal Cannula Oxygen Flow Rate (L/min) 4 3 01/15/22 16:29 Temperature 97.3 F L Temperature Source Temporal Pulse Rate 105 H Respiratory Rate 24 H Respiratory Effort Respiratory Pattern Blood Pressure 97/63 Blood Pressure Mean Pulse Ox 95 Oxygen Delivery Method Nasal Cannula Oxygen Flow Rate (L/min) 3 Weight Weight: 220 lb Body Mass Index (BMI) 37.8 Physical Exam Const General Appearance: lethargic and ill appearing Orientation / Consciousness: lethargic HEENT normocephalic and head/scalp atraumatic Eyes conjunctivae normal and no scleral icterus Neck no lymphadenopathy and supple General: trachea midline Resp normal respiratory effort Effort and Inspection: tachypneic Cardio regular rate, regular rhythm, S1 normal heart sound, S2 normal heart sound and peripheral pulses 2+ throughout GI normal to inspection, nondistended, normoactive bowel sounds, soft to palpation and non-tender Extremity normal capillary refill General Extremity: edema bilateral lower extremity Details: severe Skin General Skin Exam: no breakdown Neuro moves all extremities, no focal motor deficits and no sensory deficits noted Results Lab / Micro Data Result Diagrams: 01/15/22 15:00 01/15/22 15:00 Labs: Laboratory Results - last 24 hr 01/15/22 14:50: POC Glucose 183 H 01/15/22 15:00: WBC 13.3 H, RBC 4.03 L, Hgb 12.0, Hct 38.0, MCV 94.3, MCH 29.8, MCHC 31.6 L, RDW Std Deviation 75.0 H, RDW Coeff of Merly 21.5 H, Plt Count 253, MPV 11.7, Immature Gran % (Auto) 0.500, Neut % (Auto) 91.3 H, Lymph % (Auto) 5.1 L, Webb % (Auto) 2.9, Eos % (Auto) 0.0, Baso % (Auto) 0.2, Absolute Neuts (auto) 12.1 H, Absolute Lymphs (auto) 0.68 L, Nucleated RBC % 0, Differential Comment SCANNED, Anisocytosis 2+, Microcytosis 1+, Macrocytosis 1+ 01/15/22 15:00: PT 35.5 H, INR 3.6, APTT 42.6 H 01/15/22 15:00: Sodium 137, Potassium 4.5, Chloride 101, Carbon Dioxide 31.0, Anion Gap 5, BUN 27 H, Creatinine 0.74, Estim Creat Clear Calc 43.27, Est GFR (MDRD) Af Amer 98, Est GFR (MDRD) Non-Af 81, BUN/Creatinine Ratio 36.2 H, Glucose 181 H, Calcium 7.8 L, Total Bilirubin 0.90, AST 26, ALT 37, Alkaline Phosphatase 122 H, Troponin I High Sens 10, Total Protein 4.7 L, Albumin 1.5 L, Globulin 3.2, Albumin/Globulin Ratio 0.5 L 01/15/22 15:00: Lactic Acid 4.1 H* 01/15/22 15:00: B-Natriuretic Peptide 191.2 H 01/15/22 15:00: Urine Color Yellow, Urine Clarity Sl. Cloudy, Urine pH 6.0, Ur Specific Huntly 1.015, Urine Protein Negative, Urine Glucose (UA) Normal, Urine Ketones Negative, Urine Occult Blood Negative, Urine Nitrite Negative, Urine Bilirubin 1 H, Urine Urobilinogen 1 H, Ur Leukocyte Esterase 100 H, Urine RBC 0- 5 SEEN, Urine WBC 10-25 SEEN, Ur Squamous Epith Cells 0-5 SEEN, Urine Bacteria 4+, Urine Mucus 0 SEEN Radiology Impression Chest X-Ray 01/15/22 15:15 IMPRESSION: Poor inspiratory effort. 3.4 cm x 4.2 cm nodular density in the left lower lobe. This may represent either a pulmonary nodule versus focal pneumonia. Follow-up recommended. Electronically Signed: Bandar Mckeon MD at 15:36 EDT , Assessment & Plan Assessment/Plan (1) Acute cystitis: (2) Acute on chronic diastolic CHF (congestive heart failure): (3) Acute on chronic respiratory failure: PLAN: Plan 1. Acute cystitis -Admit to PCU -Patient initiated on Rocephin in ER, will continue -CBC and BMP daily -Urinalysis positive, urine culture pending -Intake and output 2. Acute on chronic respiratory failure -It is noted that when patient is at Dr. Eric's office for her appointment her oxygen tank was all decreased, unknown how long she had not been needing oxygen supplementation. -Patient baseline 2 L nasal cannula oxygen, currently on 4 -Cannot diurese patient at this time secondary to hypotension, Lasix on hold 3. Elevated INR -Unclear why INR is elevated as patient is on Eliquis -PT/INR tomorrow 4. Atrial fibrillation -Continue Eliquis -Hold Cardizem secondary to hypotension 5. Depression -Continue Lexapro 6. Diabetes mellitus type 2 -Hold metformin -ACH S blood sugars are sliding scale insulin ordered DVT prophylaxis-not indicated, supratherapeutic INR This patient was seen by PRETTY SandraC under the supervision of . 29 minutes spent in clinical coordination of patient's plan of care. Documented by User: Dr. Blas Finch DO 01/15/22 18:24 HPI - General General Date of Admission: 01/15/22 [facility] Medical History Anemia Depression Essential hypertension Femur fracture, left GERD (gastroesophageal reflux disease) Hyperlipidemia Mitral stenosis Non-rheumatic mitral valve stenosis Nonrheumatic aortic (valve) stenosis Nonrheumatic aortic (valve) stenosis CHIDI (obstructive sleep apnea) Other secondary pulmonary hypertension Pulmonary hypertension Type 2 diabetes mellitus Home Medications cholecalciferol (vitamin D3) 50 mcg (2,000 unit) capsule 2,000 unit PO DAILY SUPPLEMENT 10/07/18 [History Last Taken 01/15/22] atorvastatin 20 mg tablet 20 mg PO QHS CHOLESTEROL 05/24/20 [History Last Taken 01/14/22] gabapentin 300 mg capsule 300 mg PO BID Nerve Pain 05/24/20 [History Last Taken 01/15/22] metformin 500 mg tablet 500 mg PO BID DM 11/15/20 [History Last Taken 01/15/22] ferrous sulfate 325 mg (65 mg iron) tablet,delayed release 325 mg PO DAILY SUP PLEMENT 01/10/21 [History Last Taken 01/15/22] tramadol 50 mg tablet 50 mg PO 4X/DAY PAIN 01/10/21 [History Last Taken 01/15/22] famotidine 20 mg tablet 20 mg PO QHS GERD 01/11/21 [History Last Taken 01/14/22] apixaban 5 mg tablet (Eliquis) 5 mg PO BID AFIB 03/09/21 [History Last Taken 01/15/22] escitalopram oxalate 5 mg tablet (Lexapro) 5 mg PO DAILY DEPRESSION 07/24/21 [History Last Taken 01/15/22] pilocarpine HCl 5 mg tablet 5 mg PO TIDCM DRY MOUTH 07/24/21 [History Last Taken 01/15/22] polyethylene glycol 3350 17 gram/dose oral powder (Miralax) 17 g PO DAILY CONSTIPATION 09/12/21 [History Last Taken 01/15/22] acetaminophen 325 mg tablet 650 mg PO TID PAIN AND FEVER 01/15/22 [History Last Taken 01/15/22] albuterol sulfate 90 mcg/actuation aerosol inhaler 2 puff inhalation Q6H PRN sob 01/15/22 [History Last Taken Unknown] aspirin 81 mg tablet,delayed release (Adult Low Dose Aspirin) 81 mg PO DAILY HEART HEALTH 01/15/22 [History Last Taken 01/15/22] biotin 5 mg capsule 5 mg PO DAILY HAIR SKIN AND NAILS 01/15/22 [History Last Taken 01/15/22] bisacodyl 10 mg rectal suppository 10 mg SC DAILY PRN Constipation 01/15/22 [History Last Taken 01/12/22] cetirizine 10 mg tablet (Zyrtec) 10 mg PO QHS ALLERGIES 01/15/22 [History Last Taken 01/14/22] diltiazem HCl 240 mg capsule,extended release 24 hr 240 mg PO DAILY AFIB 01/15/22 [History Last Taken 01/15/22] furosemide 40 mg tablet (Lasix) 40 mg PO DAILY EDEMA 01/15/22 [History Last Taken 01/15/22] magnesium oxide 400 mg PO DAILY SUPPLEMENT 01/15/22 [History Last Taken 01/15/22] multivitamin 1 tab PO DAILY SUPPLEMENT 01/15/22 [History Last Taken 01/15/22] oxybutynin chloride 15 mg tablet,extended release 24 hr 15 mg PO DAILY BLADDER 01/15/22 [History Last Taken 01/15/22] potassium chloride 20 mEq tablet,extended release 20 meq PO DAILY SUPPLEMENT 01/15/22 [History Last Taken 01/15/22] sennosides 8.6 mg tablet (senna) 8.6 mg PO BID CONSTIPATION 01/15/22 [History Last Taken 01/15/22] Allergy/AdvReac Type Severity Reaction Status Date / Time lisinopril AdvReac Intermediate Unknown Verified 01/15/22 12:54 penicillin G AdvReac Intermediate Unknown Verified 01/15/22 12:54 exenatide [From Byetta] AdvReac Unknown Unknown Verified 01/15/22 12:54 Family History Sister CAD (coronary artery disease) Hx of CABG Surgical History History of cholecystectomy History of dilatation and curettage History of hernia repair History of left heart catheterization (LHC) (~12/12/20) History of partial colectomy History of total left knee replacement Social History housing: [facility] number of children: 0 current occupational status: retired Smoking Status: Former smoker alcohol intake: never additional social history: single Results Lab / Micro Data Result Diagrams: 01/15/22 15:00 01/15/22 15:00 Assessment & Plan Assessment/Plan (1) Acute cystitis: (2) Acute on chronic diastolic CHF (congestive heart failure): (3) Acute on chronic respiratory failure: Charges/Coding Addendum Addendum: Patient was seen and examined independently of Natalie Farah, she was sent to the emergency room from her parts room assistant office today after she was seen regarding severe lower extremity edema. Patient had undergone a nerve block injection today and was given Versed and pain management. According to cardiology who I talked with on the phone today, patient was found slumped over in a chair in the parts room assistant office and her oxygen tank was empty. Patient is normally on 2 L of oxygen at all times. She was sent to the emergency room for evaluation of possible CHF. On examination she appeared older than her stated age, she appeared frail, she does not appear to be in any distress. Vital signs as documented. Skin warm and dry and without overt rashes. Neck without JVD, thyroid appears normal, trachea is midline, neck is supple. Lungs clear, normal air movement was noted. Heart exam notable for regular rhythm, normal sounds and absence of murmurs, rubs or gallops. Abdomen unremarkable and without evidence of organomegaly, masses, or abdominal aortic enlargement, bowel sounds are present in all 4 quadrants, no abdominal tenderness was noted. Extremities-there is severe edema of both lower legs noted to be present, patient's arms are also edematous. Neuro: Cranial nerves II through XII are grossly intact, no focal motor deficits were noted, sensation to light touch and pinprick is intact, motor exam 5/5 throughout. Psych: Patient is alert and oriented x3, she does not appear anxious or depre ssed, she does not appear agitated. Work-up in the emergency room included labs which showed a slightly elevated beta natruretic peptide, patient's chest x-ray showed no evidence of congestive heart failure although there was an area which was described as a nodular density in the left lower lobe. Follow-up was recommended. Patient's white count was slightly elevated, she was afebrile, patient's urinalysis showed evidence of urinary tract infection, patient's lactic acid was elevated. Impression: Acute on chronic hypoxic respiratory failure-patient will be admitted to PCU, pulse ox will be monitored, at the time of this dictation, patient is on 3 L of oxygen-her normal oxygen setting is 2 L. I discussed CODE STATUS with the patient-she desires to be a DNR CC arrest without intubation. #2 mild diastolic congestive heart failure on a backdrop of pulmonary hypertension-due to the patient's low blood pressure, I have elected not to administer diuretics at this time, her BUN is elevated indicating possible vascular depletion, I have elected to give the patient some albumin and give fluid boluses to see if we can raise her blood pressure up. #3 acute cystitis-patient will be given IV Rocephin #4 type 2 diabetes-patient's blood sugars will be monitored, sliding scale insulin will be given as needed #5 severe lower extremity edema-patient's albumin was 1.5, I think this is par tly responsible for the patient's lower leg edema but she also has a history of pulmonary hypertension, this combination makes care extremely difficult. Patient will not be diuresed for now, she was taken off her Cardizem CD due to her low blood pressure. #6 hypotension-probably secondary to volume depletion, patient's BUN was 27, I have decided to judiciously administer fluid to the patient. #7 severe pulmonary hypertension-complicates care recovery and prognosis #8 asthma-patient is chronically on 2 L [facility] oxygen [facility], pulse ox will be monitored #9 chronic debility-patient is a long-term resident at a nursing home facility, this makes recovery care and prognosis guarded #10 lactic acidosis-secondary to hypoxic respiratory failure, pulse ox will be monitored I have reviewed Natalie Farah's history and physical including her medical assessment and plan of care with the above additions endorse it. Total clinical time spent by myself addressing the patient's medical issues, reviewing the data, and collaborating with patient's care team: 50 minutes Visit Charges Inpatient E&M: 48290 Init Hosp L3
[2022-01-15] MEDS: Ceftriaxone 1 GM/50 ML BAG IV (17:52)
[2022-01-15] MEDS: Albumin Human 25% (100 mL) 25 GM/100 ML BAG IV ×2 (18:33→22:14)
[2022-01-15] MEDS: traMADol 50 MG Tablet PO ×2 (18:45→22:23)
[2022-01-15 19:11] LABS: Reflex Lactate? Y
[2022-01-15] MEDS: 0.9% Normal Saline 1,000 ML 75 ML IV (20:33)
[2022-01-15 21:20] LABS: Lactic Acid 2.2 mmol/L (0.4-1.9)
[2022-01-15 22:15] LABS: Bedside Glucose 126 mg/dL (74-106)
[2022-01-15] MEDS: Atorvastatin Calcium 20 MG Tablet PO (22:16)
[2022-01-15] MEDS: APIXABAN 5 MG TABLET PO (22:16)
[2022-01-15] MEDS: Gabapentin 300 MG Capsule PO (22:23)
[2022-01-16] VITALS (12 sets, daily range): BP systolic 90–116; BP diastolic 51–73; PULSE 84–104; RESP 16–18; TEMP 36.4–36.8; O2SAT 94–97
--- NOTE | 2022-01-16 06:15 | PCM.HOSP.N ---
Hospitalist Note Staff noted L anterior barrientos stasis ulcer, dressing applied, discharge noted, will obtain wound Cx/MRSA wound and request Wound RN evaluation.
[2022-01-16 06:23] LABS: Absolute Lymphocyte Count 0.79 X10^3/uL (0.83-4.51); Absolute Neutrophil Count 5.1 X10^3/uL (2.0-7.7); Basophil# 0.01 X10^3/uL; Basophil% 0.2 % (0-1); Hemoglobin 9.3 g/dL (12.0-15.0); Lymphocyte # 0.79 X10^3/ul (0.83-4.51); Lymphocyte % 12.4 % (19-41); Mean Corpuscular Hgb 29.3 pg (27.0-32.0); Mean Corpuscular Volume 94.6 fL (81-99); Mean Platelet Vol. 11.6 fl (6.2-12.0); Monocyte# 0.47 X10^3/uL; Monocyte% 7.4 % (0-10); NRBC Flagged by Analyzer 0 % (0-5); Neutrophil # 5.09 X10^3/uL (2.7-7.7); Neutrophil % 79.7 % (47-70); POSITIVE MORPHOLOGY YES; Platelet Count 169 K/mm3 (150-450); RBC Distribution Width CV 21.2 % (11.6-14.6); Red Blood Count 3.17 M/mm3 (4.2-5.4); White Blood Count 6.4 K/mm3 (4.4-11.0)
[2022-01-16 06:24] LABS: Differential Indicated SCAN CRITERIA MET
[2022-01-16 06:35] LABS: International Normalized Ratio 5.5; Prothrombin Time (Protime)PT. 49.6 SECONDS (11.7-14.9)
[2022-01-16 06:40] LABS: Anisocytosis 2+
[2022-01-16 06:58] LABS: Anion Gap 4 (5-15); BUN 25 mg/dL (7-18); BUN/Creat Ratio 48.8 RATIO (10-20); Calcium,Total 7.9 mg/dL (8.5-10.1); Chloride 101 mmol/L (98-107); Creatinine, Serum 0.51 mg/dL (0.55-1.02); EST Glomerular Filtration Rate 125 mL/min (>60); Est Glom Filt Rate - Afr Amer 151 mL/min (>60); Estimated Creatinine Clearance 43.27 ml/min; Glucose 99 mg/dL (74-106); Sodium Level 139 mmol/L (136-145)
[2022-01-16 07:00] LABS: Bedside Glucose 88 mg/dL (74-106)
--- NOTE | 2022-01-16 07:24 | ECHOD_ITS ---
Reason For Study: ATRIAL FIB-FLUTTER Procedure This was a 2D Doppler, Color Flow transthoracic echocardiogram. The study was technically difficult. Exam performed portable in patient room. Left Ventricle Normal LV size. Left ventricular systolic function is normal. The estimated ejection fraction is 65 %. Unable to assess diastolic dysfunction. No regional wall motion abnormalities noted. Right Ventricle Normal RV size. Normal systolic function. Atria The left atrium is severely enlarged. The right atrium is mildly enlarged. No doppler evidence for ASD. Mitral Valve There is mild to moderate mitral annular calcification. Extension of the mitral annular calcification on the base of the posterior mitral valve leaflet. Anterior leaflet diffuse mitral valve thickening. The mitral valve chordae are thickened and/or calcified. Mild-Moderate (1-2+) mitral valve insufficiency. Tricuspid Valve Normal tricuspid valve. Moderately severe (3+) tricuspid valve insufficiency. Right ventricular systolic pressure estimated to be 58 mmHg. Aortic Valve Trisinus/trileaflet aortic valve. Based upon the 2D echocardiographic images obtained there appears to be diffuse thickening, calcification, and partial restriction of the aortic valve leaflets. Moderately severe aortic valve stenosis by spectral Doppler pattern and severe aortic valve stenosis by planimetry. Trivial aortic valve insufficiency. Pulmonic Valve The pulmonic valve is not well visualized. Trivial pulmonic valve insufficiency. Great Vessels Normal sized aortic root. Pericardium/Pleural No pericardial effusion. MMode/2D Measurements & Calculations LVIDd: 3.6 cm IVSd: 1.0 cm LVOT diam: 2.0 cm LVIDs: 2.4 cm LVPWd: 0.86 cm LVOT area: 3.2 cm2 RVDd: 3.6 cm FS: 35.0 % CO(Teich): 3.0 l/min Ao root diam: 3.2 cm LAV(MOD-bp): 83.2 ml LAV(MOD-bp) Indexed: 39.4 ml/m2 LAV(MOD-sp2): 83.7 ml LAV(MOD-sp4): 74.6 ml CO(MOD-sp4): 2.2 l/min SV(sp4-el): 29.8 ml LVAd ap4: 16.7 cm2 SV(MOD-sp4): 27.0 ml LVLd ap4: 5.3 cm EDV(MOD-sp4): 42.6 ml EDV(sp4-el): 44.8 ml LVAs ap4: 9.1 cm2 LVLs ap4: 4.7 cm ESV(MOD-sp4): 15.6 ml ESV(sp4-el): 15.1 ml EF(MOD-sp4): 63.3 % EF(sp4-el): 66.4 % Aortic Valve Planimetry: 0.59 cm2 LA A4 area: 24.1 cm2 LA dimension(2D): 5.6 cm RA A4 area: 19.3 cm2 Doppler Measurements & Calculations MV E max debbie: 146.4 cm/sec MV dec slope: 545.2 cm/sec2 Ao V2 max: 338.2 cm/sec Ao max P.8 mmHg Ao V2 mean: 251.8 cm/sec Ao mean P.0 mmHg Ao V2 VTI: 67.6 cm PARVIZ(I,D): 1.00 cm2 PARVIZ(V,D): 0.85 cm2 LV V1 max: 88.8 cm/sec CO(LVOT): 6.5 l/min PA V2 max: 127.6 cm/sec LV V1 max P.2 mmHg SV(LVOT): 67.3 ml LV V1 mean P.0 mmHg LV V1 mean: 66.5 cm/sec LV V1 VTI: 20.9 cm TR max debbie: 352.5 cm/sec TR max P.7 mmHg ECHO/Echo Complete Interpretation Summary The study was technically difficult. Left ventricular systolic function is normal. The estimated ejection fraction is 65 %. The left atrium is severely enlarged. The right atrium is mildly enlarged. There is mild to moderate mitral annular calcification. Extension of the mitral annular calcification on the base of the posterior mitr al valve leaflet. Anterior leaflet diffuse mitral valve thickening. The mitral valve chordae are thickened and/or calcified. Mild-Moderate (1-2+) mitral valve insufficiency. Moderately severe (3+) tricuspid valve insufficiency. Based upon the 2D echocardiographic images obtained there appears to be diffuse thickening, calcification, and partial restriction of the aortic valve leaflets. Moderately severe aortic valve stenosis by spectral Doppler pattern and severe aortic valve stenosis by planimetry. Trivial aortic valve insufficiency. Trivial pulmonic valve insufficiency. Right ventricular systolic pressure estimated to be 58 mmHg. Unable to assess diastolic dysfunction. Ordering Physician: Blas Finch Referring Physician: IMER STEPHENS Performed By: Em Farmer RDCS
--- NOTE | 2022-01-16 07:40 | CASEMGMT ---
SW spoke with Lyly at [facility] and patient does not need a pre-cert to return as she is a alf resident. Pratima Aguiar ALUMNI RELATIONS COORDINATOR NICHELLE
--- NOTE | 2022-01-16 09:06 | CASEMGMT ---
Discharge Brake Repairer [employer] Rhea Maharaj/cabrera Performance Test Engineer faxed over patient updates to [facility]. Rhea Rivas Discharge Brake Repairer Air
[2022-01-16] MEDS: Ceftriaxone 1 GM/50 ML BAG IV (09:35)
[2022-01-16] MEDS: Aspirin E.C. 81 MG Tablet PO (09:43)
[2022-01-16] MEDS: Tolterodine Tartrate 4 MG CAP.SA PO (09:43)
[2022-01-16] MEDS: traMADol 50 MG Tablet PO ×4 (09:43→22:35)
[2022-01-16] MEDS: Famotidine 20 MG Tablet PO (09:43)
[2022-01-16] MEDS: Escitalopram Oxalate 10 MG Tablet 5 MG PO (09:44)
[2022-01-16] MEDS: Gabapentin 300 MG Capsule PO ×2 (09:48→22:35)
--- NOTE | 2022-01-16 11:21 | WOUNDNOTE ---
wound photo: sacrum
--- NOTE | 2022-01-16 11:21 | WOUNDNOTE ---
wound photo: left lateral lower leg
--- NOTE | 2022-01-16 11:22 | WOUNDNOTE ---
skin photo: left medial lower leg
--- NOTE | 2022-01-16 12:40 | PCM.PN.HOSP ---
Documented by User: ROCHELLE Sandra 01/16/22 12:47 Subjective Subjective Patient seen and examined. Patient lying in bed no distress noted. Patient more alert and oriented today. Objective Data Objective Data Vital Signs: Vital Signs Temp Pulse Resp BP Pulse Ox O2 Del Method O2 Flow Rate 97.7 F L 90 18 99/64 94 Nasal Cannula 3 01/16/22 10:12 01/16/22 10:12 01/16/22 10:12 01/16/22 10:12 01/16/22 10:12 01/16/22 10:12 01/16/22 10:12 Oxygen Flow Rate (L/min) 3 Oxygen Delivery Method Nasal Cannula Weight: 223 lb 1.725 oz Body Mass Index (BMI) 38.1 Intake & Output: Intake and Output for Last 24 Hours 01/14/22 01/15/22 01/16/22 23:59 23:59 23:59 Intake Total 1695 / 1695 455 / 455 Output Total 200 / 200 250 / 250 Balance 1495 / 1495 205 / 205 Lab / Micro Data Result Diagrams: 01/16/22 06:10 01/16/22 06:10 Labs: Laboratory Results - last 24 hr 01/15/22 14:50: POC Glucose 183 H 01/15/22 15:00: WBC 13.3 H, RBC 4.03 L, Hgb 12.0, Hct 38.0, MCV 94.3, MCH 29.8, MCHC 31.6 L, RDW Std Deviation 75.0 H, RDW Coeff of Merly 21.5 H, Plt Count 253, MPV 11.7, Immature Gran % (Auto) 0.500, Neut % (Auto) 91.3 H, Lymph % (Auto) 5.1 L, [place] % (Auto) 2.9, Eos % (Auto) 0.0, Baso % (Auto) 0.2, Absolute Neuts (auto) 12.1 H, Absolute Lymphs (auto) 0.68 L, Nucleated RBC % 0, Differential Comment SCANNED, Anisocytosis 2+, Microcytosis 1+, Macrocytosis 1+ 01/15/22 15:00: PT 35.5 H, INR 3.6, APTT 42.6 H 01/15/22 15:00: Sodium 137, Potassium 4.5, Chloride 101, Carbon Dioxide 31.0, Anion Gap 5, BUN 27 H, Creatinine 0.74, Estim Creat Clear Calc 43.27, Est GFR (MDRD) Af Amer 98, Est GFR (MDRD) Non-Af 81, BUN/Creatinine Ratio 36.2 H, Glucose 181 H, Calcium 7.8 L, Total Bilirubin 0.90, AST 26, ALT 37, Alkaline Phosphatase 122 H, Troponin I High Sens 10, Total Protein 4.7 L, Albumin 1.5 L, Globulin 3.2, Albumin/Globulin Ratio 0.5 L 01/15/22 15:00: Lactic Acid 4.1 H* 01/15/22 15:00: B-Natriuretic Peptide 191.2 H 01/15/22 15:00: Urine Color Yellow, Urine Clarity Sl. Cloudy, Urine pH 6.0, Ur Specific [place] 1.015, Urine Protein Negative, Urine Glucose (UA) Normal, Urine Ketones Negative, Urine Occult Blood Negative, Urine Nitrite Negative, Urine Bilirubin 1 H, Urine Urobilinogen 1 H, Ur Leukocyte Esterase 100 H, Urine RBC 0-5 SEEN, Urine WBC 10-25 SEEN, Ur Squamous Epith Cells 0-5 SEEN, Urine Bacteria 4+, Urine Mucus 0 SEEN 01/15/22 20:25: Lactic Acid 2.2 H* 01/15/22 21:49: POC Glucose 126 H 01/16/22 06:10: WBC 6.4, RBC 3.17 L, Hgb 9.3 L, Hct 30.0 L, MCV 94.6, MCH 29.3, MCHC 31.0 L, RDW Std Deviation 73.0 H, RDW Coeff of Merly 21.2 H, Plt Count 169, MPV 11.6, Immature Gran % (Auto) 0.300, Neut % (Auto) 79.7 H, Lymph % (Auto) 12.4 L, [place] % (Auto) 7.4, Eos % (Auto) 0.0, Baso % (Auto) 0.2, Absolute Neuts (auto) 5.1, Absolute Lymphs (auto) 0.79 L, Nucleated RBC % 0, Anisocytosis 2+ 01/16/22 06:10: PT 49.6 H, INR 5.5 H* 01/16/22 06:10: Sodium 139, Potassium 4.0, Chloride 101, Carbon Dioxide 34.0 H, Anion Gap 4 L, BUN 25 H, Creatinine 0.51 L, Estim Creat Clear Calc 43.27, Est GFR (MDRD) Af Amer 151, Est GFR (MDRD) Non-Af 125, BUN/Creatinine Ratio 48.8 H, Glucose 99, Calcium 7.9 L 01/16/22 06:27: POC Glucose 88 Micro: Microbiology 01/15/22 15:00 Urine, Catheterized Urine Culture - Preliminary GNR 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 3.4 cm x 4.2 cm nodular density in the left lower lobe. This may represent either a pulmonary nodule versus focal pneumonia. Follow-up recommended. Electronically Signed: Bandar Mckeon MD at 15:36 EDT , Physical Exam Const alert and oriented x3 General Appearance: ill appearing HEENT normocephalic and head/scalp atraumatic Eyes conjunctivae normal and no scleral icterus Neck no lymphadenopathy and supple General: trachea midline Resp normal respiratory effort Effort and Inspection: tachypneic Cardio regular rate, regular rhythm, S1 normal heart sound, S2 normal heart sound and peripheral pulses 2+ throughout GI normal to inspection, nondistended, normoactive bowel sounds, soft to palpation and non-tender Extremity normal capillary refill General Extremity: edema bilateral lower extremity Details: severe Skin General Skin Exam: no breakdown Neuro moves all extremities, no focal motor deficits and no sensory deficits noted Psych affect normal Assessment & Plan Assessment/Plan (1) Acute cystitis: (2) Acute on chronic diastolic CHF (congestive heart failure): (3) Acute on chronic respiratory failure: PLAN: Plan 1. Acute cystitis -Continue Rocephin -CBC and BMP daily -Urinalysis positive, urine culture pending -Intake and output 2. Acute on chronic respiratory failure secondary to pulmonary hypertension -Patient baseline 2 L nasal cannula oxygen, currently on 3 -Patient currently on Lasix gtt at 5 mg, patient has borderline hypotension 3. Elevated INR -Unclear why INR is elevated, patient is on Eliquis -PT/INR elevated today, Eliquis on hold 4. Atrial fibrillation -Eliquis on hold secondary to INR elevation -Hold Cardizem secondary to hypotension 5. Depression -Continue Lexapro 6. Diabetes mellitus type 2 -Hold metformin -ACH S blood sugars are sliding scale insulin ordered DVT prophylaxis-not indicated, supratherapeutic INR This patient was seen by Nury Farah, ABEL-C under the supervision of Dr. Finch. 13 minutes spent in clinical coordination of patient's plan of care. Documented by User: Dr. Blas Finch, DO 01/16/22 19:48 Objective Data Lab / Micro Data Result Diagrams: 01/16/22 06:10 01/16/22 06:10 Assessment & Plan Assessment/Plan (1) Acute cystitis: (2) Acute on chronic diastolic CHF (congestive heart failure): (3) Acute on chronic respiratory failure: Charges/Coding Addendum Addendum: Patient was seen and examined independently today of Natalie Farah, her blood pressure has improved at this time, I started the patient on a Lasix drip today to reduce her anasarca. I talked briefly with her sister who is visiting her in the room at the time my examination. Patient is now on 3 L of nasal cannula oxygen-again her usual setting is 2 L. On examination she appeared older than her stated age, she appeared frail, she does not appear to be in any distress. Vital signs as documented. Skin warm and dry and without overt rashes. Neck without JVD, thyroid appears normal, trachea is midline, neck is supple. Lungs clear, normal air movement was noted. Heart exam notable for regular rhythm, normal sounds and absence of murmurs, rubs or gallops. Abdomen unremarkable and without evidence of organomegaly, masses, or abdominal aortic enlargement, bowel sounds are present in all 4 quadrants, no abdominal tenderness was noted. Extremities-there is severe edema of both lower legs noted to be present, patient's arms are also edematous.? Neuro: Cranial nerves II through XII are grossly intact, no focal motor deficits were noted, sensation to light touch and pinprick is intact, motor exam 5/5 throughout.? Psych: Patient is alert and oriented x3, she does not appear anxious or depressed, she does not appear agitated. Acute on chronic hypoxic respiratory failure-patient is now on 3 L via nasal cannula, she appears comfortable at rest #2 mild diastolic congestive heart failure on a backdrop of pulmonary hypertension-due to the patient's low blood pressure, I have elected not to administer diuretics at this time, her BUN is elevated indicating possible vascular depletion, I have elected to give the patient some albumin and give fluid boluses to see if we can raise her blood pressure up. #3 acute cystitis-patient will be given IV Rocephin #4 type 2 diabetes-patient's blood sugars will be monitored, sliding scale insulin will be given as needed #5 severe lower extremity edema-patient's albumin was 1.5, I think this is partly responsible for the patient's lower leg edema but she also has a history of pulmonary hypertension, this combination makes care extremely difficult.? Again I have decided to place the patient on IV diuresis with Lasix at 5 mg/h, electrolytes will be monitored, blood pressure will be monitored. #6 hypotension-corrected at this time, patient remains off her Cardizem CD #7 severe pulmonary hypertension-complicates care recovery and prognosis #8 asthma-patient is chronically on 2 L of oxygen at the [facility], pulse ox will be monitored #9 chronic debility-patient is a long-term resident at a retirement facility, this makes recovery care and prognosis guarded #10 lactic acidosis-secondary to hypoxic respiratory failure, pulse ox will be monitored I have reviewed Natalie Farah's progress note including her medical assessment and plan of care and with the above additions endorse it. Total clinical time spent by myself addressing the patient's medical issues, reviewing the data, and collaborating with patient's care team: 25 minutes Visit Charges Inpatient E&M: 20308 Subs Hosp L3
[2022-01-16 12:51] LABS: Bedside Glucose 96 mg/dL (74-106)
--- NOTE | 2022-01-16 13:58 | CHAPLAIN ---
Type of Pastoral Visit _x__ Initial Visit ___ Follow-up Visit ___ On-call Visit ___ General Patient Visit ___ Spiritual Assessment ___ Family Conference ___ Bereavement ___ Rapid Response ___ Code Blue ___ Other (describe below) Pastoral Care Referral From _x__ Patient ___ Family ___ Nurse ___ Physician ___ Gut Cleaner ___ Marine Design Engineer ___ Other (describe below) Sacrament/Intervention _x__ Active listening ___ Anointing ___ Quaker ___ Bereavement ___ Communion ___ Jennifer exploration ___ ___ Life review _x__ Prayer ___ Reconciliation ___ Sacrament of Sick _x__ Supportive presence ___ Wedding ___ Other (describe below) Pastoral Comments patient awakens easily when this roof slater enters room; pt asks about the date and how she came into hospital; pt admits that she doesn't remember coming to hospital and what day it is; pt states that her next of kin is her sister in the skilled nursing; pt is of the [place] jennifer and appreciates Father Lino from [place] who visits monthly; pt welcomes presence nd prayer
[2022-01-16] MEDS: Juven (unflavored) Packet 1 PACKET PO (17:53)
[2022-01-16 18:21] LABS: Bedside Glucose 123 mg/dL (74-106)
[2022-01-16] MEDS: Atorvastatin Calcium 20 MG Tablet PO (22:35)
[2022-01-16 22:51] LABS: Bedside Glucose 146 mg/dL (74-106)
[2022-01-17] VITALS (10 sets, daily range): BP systolic 99–110; BP diastolic 62–81; PULSE 94–110; RESP 16–18; TEMP 36.5–36.9; O2SAT 94–97
[2022-01-17 06:01] LABS: Absolute Lymphocyte Count 1.03 X10^3/uL (0.83-4.51); Absolute Neutrophil Count 3.1 X10^3/uL (2.0-7.7); Basophil# 0.02 X10^3/uL; Basophil% 0.4 % (0-1); Eosinophil# 0.02 X10^3/uL; Eosinophils% 0.4 % (0-5); Hematocrit 29.3 % (37-47); Hemoglobin 9.3 g/dL (12.0-15.0); Lymphocyte # 1.03 X10^3/ul (0.83-4.51); Lymphocyte % 21.8 % (19-41); Mean Corp Hgb Conc 31.7 g/dL (32-36); Mean Corpuscular Hgb 30.5 pg (27.0-32.0); Mean Corpuscular Volume 96.1 fL (81-99); Mean Platelet Vol. 11.5 fl (6.2-12.0); Monocyte% 10.6 % (0-10); NRBC Flagged by Analyzer 0.8 % (0-5); Neutrophil # 3.12 X10^3/uL (2.7-7.7); Neutrophil % 66.2 % (47-70); POSITIVE MORPHOLOGY YES; Platelet Count 180 K/mm3 (150-450); RBC Distribution Width CV 21.3 % (11.6-14.6); RBC Distribution Width SD 74.7 fl (35.1-43.9); Red Blood Count 3.05 M/mm3 (4.2-5.4); White Blood Count 4.7 K/mm3 (4.4-11.0)
[2022-01-17 06:07] LABS: Differential Indicated SCAN CRITERIA MET
[2022-01-17 06:22] LABS: International Normalized Ratio 2.6; Prothrombin Time (Protime)PT. 27.1 SECONDS (11.7-14.9)
[2022-01-17 06:32] LABS: Anion Gap 2 (5-15); BUN 22 mg/dL (7-18); Calcium,Total 7.9 mg/dL (8.5-10.1); Chloride 101 mmol/L (98-107); Creatinine, Serum 0.63 mg/dL (0.55-1.02); EST Glomerular Filtration Rate 99 mL/min (>60); Est Glom Filt Rate - Afr Amer 120 mL/min (>60); Estimated Creatinine Clearance 43.27 ml/min; Glucose 139 mg/dL (74-106); Potassium 3.7 mmol/L (3.5-5.1); Sodium Level 140 mmol/L (136-145)
[2022-01-17 06:39] LABS: Anisocytosis 3+
[2022-01-17 06:40] LABS: Bedside Glucose 132 mg/dL (74-106)
[2022-01-17] MEDS: Aspirin E.C. 81 MG Tablet PO (09:37)
[2022-01-17] MEDS: Tolterodine Tartrate 4 MG CAP.SA PO (09:38)
[2022-01-17] MEDS: Escitalopram Oxalate 10 MG Tablet 5 MG PO (09:38)
[2022-01-17] MEDS: Famotidine 20 MG Tablet PO (09:39)
[2022-01-17] MEDS: Polyethylene Glycol 3350 17 GM PACKET PO (09:39)
[2022-01-17] MEDS: traMADol 50 MG Tablet PO ×4 (09:50→21:45)
[2022-01-17] MEDS: Gabapentin 300 MG Capsule PO ×2 (09:50→21:45)
[2022-01-17] MEDS: APIXABAN 5 MG TABLET PO ×2 (09:51→22:27)
[2022-01-17] MEDS: Ceftriaxone 1 GM/50 ML BAG IV (09:52)
[2022-01-17] MEDS: Insulin Lispro 100 UNIT/ML INSULN.PEN SC ×2 (12:03→18:15)
[2022-01-17 12:18] LABS: M R Staph aureus DNA By PCR POSITIVE (Negative); Probe Check PASS; Staph aureus DNA By PCR POSITIVE (Negative)
[2022-01-17 12:25] LABS: Bedside Glucose 158 mg/dL (74-106)
--- NOTE | 2022-01-17 13:55 | PN.HOSP_ITS ---
Documented by User: Amanda Shepard NP, NURSING EDUCATOR-C 01/17/22 14:05 Subjective Subjective Patient seen and examined. Denies shortness of breath. Remains edematous. Patient reports feeling improved. Remains on Lasix drip. Objective Data Objective Data Vital Signs: Vital Signs Temp Pulse Resp BP Pulse Ox O2 Del Method O2 Flow Rate 97.7 F L 108 H 18 99/77 97 Nasal Cannula 3 01/17/22 09:45 01/17/22 09:45 01/17/22 09:45 01/17/22 09:45 01/17/22 09:45 01/17/22 11:20 01/17/22 11:20 Oxygen Flow Rate (L/min) 3 Oxygen Delivery Method Nasal Cannula Weight: 221 lb 12.56 oz Body Mass Index (BMI) 38.1 Intake & Output: Intake and Output for Last 24 Hours 01/15/22 01/16/22 01/17/22 23:59 23:59 23:59 Intake Total 1695 / 1695 862 / 862 69.75 / 69.75 Output Total 200 / 200 2850 / 2850 1250 / 1250 Balance 1495 / 1495 -1987 / -1987 -1180.25 / -1180.25 Lab / Micro Data Result Diagrams: 01/17/22 05:50 01/17/22 05:50 Labs: Laboratory Results - last 24 hr 01/16/22 16:35: POC Glucose 123 H 01/16/22 22:19: POC Glucose 146 H 01/17/22 05:50: WBC 4.7, RBC 3.05 L, Hgb 9.3 L, Hct 29.3 L, MCV 96.1, MCH 30.5, MCHC 31.7 L, RDW Std Deviation 74.7 H, RDW Coeff of Merly 21.3 H, Plt Count 180, MPV 11.5, Immature Gran % (Auto) 0.600, Neut % (Auto) 66.2, Lymph % (Auto) 21.8, [place] % (Auto) 10.6 H, Eos % (Auto) 0.4, Baso % (Auto) 0.4, Absolute Neuts (auto) 3.1, Absolute Lymphs (auto) 1.03, Nucleated RBC % 0.8, Anisocytosis 3+ 01/17/22 05:50: PT 27.1 H, INR 2.6 01/17/22 05:50: Sodium 140, Potassium 3.7, Chloride 101, Carbon Dioxide 37.0 H, Anion Gap 2 L, BUN 22 H, Creatinine 0.63, Estim Creat Clear Calc 43.27, Est GFR (MDRD) Af Amer 120, Est GFR (MDRD) Non-Af 99, BUN/Creatinine Ratio 35.0 H, Glucose 139 H, Calcium 7.9 L 01/17/22 06:19: POC Glucose 132 H 01/17/22 10:30: S.aureus Protein A PCR POSITIVE H, MRSA (PCR) POSITIVE H 01/17/22 11:30: POC Glucose 158 H Micro: Microbiology 01/15/22 15:00 Urine, Catheterized Urine Culture - Preliminary Escherichia coli Gram negative josé 01/16/22 06:45 Wound - Leg, Left Gram Stain - Final 01/16/22 06:45 Wound - Leg, Left Wound Culture - Preliminary Staphylococcus aureus Gram negative josé Beta streptococcus Gram positive organism 01/15/22 15:00 Blood Culture (Wb) - Anticubital Left Blood Culture - Preliminary No growth in 48 hours. 01/15/22 15:00 Blood Culture (Wb) - Anticubital Left Blood Culture - Preliminary No growth in 48 hours. Radiography Diagnostic Testing: Radiology Impression Echocardiogram 01/16/22 07:24 Interpretation Summary The study was technically difficult. Left ventricular systolic function is normal. The estimated ejection fraction is 65 %. The left atrium is severely enlarged. The right atrium is mildly enlarged. There is mild to moderate mitral annular calcification. Extension of the mitral annular calcification on the base of the posterior mitral valve leaflet. Anterior leaflet diffuse mitral valve thickening. The mitral valve chordae are thickened and/or calcified. Mild-Moderate (1-2+) mitral valve insufficiency. Moderately severe (3+) tricuspid valve insufficiency. Based upon the 2D echocardiographic images obtained there appears to be diffuse thickening, calcification, and partial restriction of the aortic valve leaflets. Moderately severe aortic valve stenosis by spectral Doppler pattern and severe aortic valve stenosis by planimetry. Trivial aortic valve insufficiency. Trivial pulmonic valve insufficiency. Right ventricular systolic pressure estimated to be 58 mmHg. Unable to assess diastolic dysfunction. Ordering Physician: Blas Finch Referring Physician: IMER STEPHENS Performed By: Em Farmer RDCS Physical Exam Const alert and oriented x3 Orientation / Consciousness: awake, oriented to person, oriented to place and oriented to time HEENT normocephalic and moist oral mucous membranes Eyes PERRL, EOMs intact bilaterally and conjunctivae normal Neck no lymphadenopathy Resp clear to auscultation bilaterally Auscultation: diminished lung sounds Cardio regular rate, regular rhythm and no murmurs Peripheral Pulses: pulses 2+ throughout GI normal to inspection, nondistended, normoactive bowel sounds, non-tender and non-distended Extremity normal to inspection General Extremity: edema bilateral (Lower extremity and generalized edema) lower extremity Skin no rashes or lesions noted Lesions: no lesions Rashes: no rashes Trauma: no lacerations or abrasions Neuro CN's II-XII intact bilaterally, no focal motor deficits, no sensory deficits not ed and deep tendon reflexes 2+ bilaterally Psych mental status grossly normal and affect normal Assessment & Plan Assessment/Plan (1) Acute on chronic diastolic CHF (congestive heart failure): PLAN: Plan 1. Acute on chronic heart failure with preserved ejection fraction-echocardiogram with EF 65%, mild to moderate mitral valve insufficiency, moderately severe tricuspid valve insufficiency, right ventricular systolic pressure estimated to be 58 mmHg. Lasix drip. Strict I&O. Daily weight. 2. Acute on chronic hypoxic respiratory failure secondary to acute on chronic heart failure with preserved ejection fraction, complicated by underlying severe pulmonary hypertension-on 2 L nasal cannula at baseline. Requiring 3 to 4 L supplemental oxygen during admission with notable dyspnea and tachypnea. Now improved on Lasix drip. 3. Acute E. coli cystitis-IV Rocephin pending final culture. 4. Left anterior barrientos stasis ulcer-wound culture pending. Wound RN consulted. 5. Severe pulmonary hypertension 6. Chronic asthma-no exacerbation. As needed albuterol aerosol. 7. Type 2 diabetes [id number] with sliding scale insulin. 8. Hypertension-stable, continue current regimen. 9. Hyperlipidemia-continue statin. 10. Chronic debility-PT/OT. Resides at SNF. 11. Depression-on Lexapro. DVT prophylaxis- Eliquis This patient was seen by Amanda Shepard NP-C under the supervision of Dr. Finch. Time spent examining patient, reviewing data and subsequent management of care: 14 minutes Documented by User: Dr. Blas Finch, DO 01/17/22 14:48 Objective Data Lab / Micro Data Result Diagrams: 01/17/22 05:50 01/17/22 05:50 Assessment & Plan Assessment/Plan (1) Acute on chronic diastolic CHF (congestive heart failure): Charges/Coding Addendum Addendum: Patient was seen and examined today independently of Amanda Shepard, she still has significant lower extremity edema present, she appears to be diuresing well with continuous Lasix drip. BUN was 22 today creatinine is normal. On examination she appeared older than her stated age, she appeared frail, she does not appear to be in any distress. Vital signs as documented. Skin warm and dry and without overt rashes. Neck without JVD, thyroid appears normal, trachea is midline, neck is supple. Lungs clear, normal air movement was noted. Heart exam notable for irregular rhythm, normal sounds and absence of murmurs, rubs or gallops. Abdomen unremarkable and without evidence of organomegaly, masses, or abdominal aortic enlargement, bowel sounds are present in all 4 quadrants, no abdominal tenderness was noted. Extremities-there is severe edema of both lower legs noted to be present, patient's arms are also edematous.? Neuro: Cranial nerves II through XII are grossly intact, no focal motor deficits were noted, s ensation to light touch and pinprick is intact, motor exam 5/5 throughout.? Psych: Patient is alert and oriented x3, she does not appear anxious or depressed, she does not appear agitated. #1 Acute on chronic hypoxic respiratory failure-patient is now on 3 L via nasal cannula-Baseline appears to be 2 L via nasal cannula,, she appears comfortable at rest #2 mild diastolic congestive heart failure on a backdrop of pulmonary hypertension-continue IV Lasix at this time #3 acute cystitis-E. coli and gram-negative josé-patient is on IV Rocephin #4 type 2 diabetes-patient's blood sugars will be monitored, sliding scale insulin will be given as needed #5 severe lower extremity edema-patient's albumin was 1.5, I think this is partly responsible for the patient's lower leg edema but she also has a history of pulmonary hypertension, this combination makes care extremely difficult.? Again I have decided to place the patient on IV diuresis with Lasix at 5 mg/h, electrolytes will be monitored, blood pressure will be monitored. #6 hypotension-corrected at this time, patient remains off her Cardizem CD #7 severe pulmonary hypertension-complicates care recovery and prognosis #8 [facility] pulse ox will be monitored #9 chronic debility-patient is a long-term resident at a halfway facility, this makes recovery care and prognosis guarded #10 lactic acidosis-secondary to hypoxic respiratory failure, pulse ox will be monitored #11 chronic atrial fibrillation-I have placed the patient back on her Eliquis today, INR was 2.6 today I have reviewed Amanda Devyn's progress note including her medical assessment and plan of care and endorse it. Total clinical time spent by myself addressing the patient's medical issues, reviewing the data, and collaborating with patient's care team: 25 minutes Visit Charges Inpatient E&M: [id number] Subs Hosp L3
[2022-01-17 18:35] LABS: Bedside Glucose 165 mg/dL (74-106)
[2022-01-17] MEDS: Atorvastatin Calcium 20 MG Tablet PO (21:52)
[2022-01-18] VITALS (14 sets, daily range): BP systolic 86–111; BP diastolic 59–69; PULSE 89–132; RESP 16–18; TEMP 36.6–37.2; O2SAT 94–97
[2022-01-18 01:05] LABS: Bedside Glucose 149 mg/dL (74-106)
[2022-01-18 05:16] LABS: Absolute Lymphocyte Count 1.22 X10^3/uL (0.83-4.51); Absolute Neutrophil Count 3.6 X10^3/uL (2.0-7.7); Basophil# 0.02 X10^3/uL; Basophil% 0.4 % (0-1); Eosinophil# 0.03 X10^3/uL; Eosinophils% 0.5 % (0-5); Hemoglobin 10.1 g/dL (12.0-15.0); Lymphocyte # 1.22 X10^3/ul (0.83-4.51); Lymphocyte % 21.7 % (19-41); Mean Corp Hgb Conc 30.6 g/dL (32-36); Mean Corpuscular Hgb 29.4 pg (27.0-32.0); Mean Corpuscular Volume 96.2 fL (81-99); Mean Platelet Vol. 11.2 fl (6.2-12.0); Monocyte# 0.69 X10^3/uL; Monocyte% 12.3 % (0-10); NRBC Flagged by Analyzer 0 % (0-5); Neutrophil # 3.64 X10^3/uL (2.7-7.7); Neutrophil % 64.6 % (47-70); POSITIVE MORPHOLOGY YES; Platelet Count 183 K/mm3 (150-450); RBC Distribution Width CV 20.6 % (11.6-14.6); RBC Distribution Width SD 73.1 fl (35.1-43.9); Red Blood Count 3.43 M/mm3 (4.2-5.4); White Blood Count 5.6 K/mm3 (4.4-11.0)
[2022-01-18 05:24] LABS: International Normalized Ratio 1.8; Prothrombin Time (Protime)PT. 20.5 SECONDS (11.7-14.9)
[2022-01-18 05:33] LABS: Anion Gap 2 (5-15); BUN 20 mg/dL (7-18); BUN/Creat Ratio 37.5 RATIO (10-20); Calcium,Total 7.8 mg/dL (8.5-10.1); Chloride 96 mmol/L (98-107); Creatinine, Serum 0.53 mg/dL (0.55-1.02); EST Glomerular Filtration Rate 119 mL/min (>60); Est Glom Filt Rate - Afr Amer 144 mL/min (>60); Estimated Creatinine Clearance 43.27 ml/min; Glucose 131 mg/dL (74-106); Potassium 3.4 mmol/L (3.5-5.1); Sodium Level 140 mmol/L (136-145)
[2022-01-18 05:40] LABS: Differential Indicated SCAN CRITERIA MET
[2022-01-18 05:44] LABS: Anisocytosis 2+; Differential Comment SCANNED
[2022-01-18 05:45] LABS: Microcytosis 1+
[2022-01-18 05:47] LABS: Polychromasia RARE
[2022-01-18 07:05] LABS: Bedside Glucose 117 mg/dL (74-106)
[2022-01-18] MEDS: Tolterodine Tartrate 4 MG CAP.SA PO (08:14)
[2022-01-18] MEDS: Gabapentin 300 MG Capsule PO ×2 (08:14→21:44)
[2022-01-18] MEDS: Famotidine 20 MG Tablet PO (08:14)
[2022-01-18] MEDS: Juven (unflavored) Packet 1 PACKET PO ×2 (08:15→17:19)
[2022-01-18] MEDS: Aspirin E.C. 81 MG Tablet PO (08:15)
[2022-01-18] MEDS: Polyethylene Glycol 3350 17 GM PACKET PO (08:15)
[2022-01-18] MEDS: Escitalopram Oxalate 10 MG Tablet 5 MG PO (09:08)
[2022-01-18] MEDS: APIXABAN 5 MG TABLET PO ×2 (09:08→21:45)
[2022-01-18] MEDS: Potassium Chloride Oral Tablet 20 MEQ 40 MEQ PO (09:08)
[2022-01-18] MEDS: Ceftriaxone 1 GM/50 ML BAG IV (09:51)
--- NOTE | 2022-01-18 09:53 | CASEMGMT ---
Discharge Printing Plate Setter Rhea Maharaj/cabrera Coder faxed over update on patient to [facility] Rhea Rivas Discharge Printing Plate Setter
[2022-01-18] MEDS: traMADol 50 MG Tablet PO ×4 (10:00→21:45)
--- NOTE | 2022-01-18 10:17 | PCM.PN.HOSP ---
Documented by User: Amanda Shepard NP, HIDE HOUSE SUPERVISOR-C 01/18/22 10:26 Subjective Subjective Patient seen and examined. Denies shortness of breath. Reports improvement in swelling. Denies other symptoms or complaints. Objective Data Objective Data Vital Signs: Vital Signs Temp Pulse Resp BP Pulse Ox O2 Del Method O2 Flow Rate 97.8 F 99 18 93/64 96 Nasal Cannula 3 01/18/22 09:20 01/18/22 09:20 01/18/22 09:20 01/18/22 09:20 01/18/22 09:20 01/18/22 09:20 01/18/22 09:20 Oxygen Flow Rate (L/min) 3 Oxygen Delivery Method Nasal Cannula Weight: 223 lb 1.725 oz Body Mass Index (BMI) 38.1 Intake & Output: Intake and Output for Last 24 Hours 01/16/22 01/17/22 01/18/22 23:59 23:59 23:59 Intake Total 862 / 862 469.75 / 469.75 Output Total 2850 / 2850 3200 / 4450 2099 / 2099 Balance -1987 / -1987 -2730.25 / -3980.25 -2099 / Lab / Micro Data Result Diagrams: 01/18/22 04:38 01/18/22 04:38 Labs: Laboratory Results - last 24 hr 01/17/22 10:30: S.aureus Protein A PCR POSITIVE H, MRSA (PCR) POSITIVE H 01/17/22 11:30: POC Glucose 158 H 01/17/22 18:09: POC Glucose 165 H 01/17/22 21:43: POC Glucose 149 H 01/18/22 04:38: PT 20.5 H, INR 1.8 01/18/22 04:38: Sodium 140, Potassium 3.4 L, Chloride 96 L, Carbon Dioxide 42.0 H, Anion Gap 2 L, BUN 20 H, Creatinine 0.53 L, Estim Creat Clear Calc 43.27, Est GFR (MDRD) Af Amer 144, Est GFR (MDRD) Non-Af 119, BUN/Creatinine Ratio 37.5 H, Glucose 131 H, Calcium 7.8 L 01/18/22 04:38: WBC 5.6, RBC 3.43 L, Hgb 10.1 L, Hct 33.0 L, MCV 96.2, MCH 29.4, MCHC 30.6 L, RDW Std Deviation 73.1 H, RDW Coeff of Merly 20.6 H, Plt Count 183, MPV 11.2, Immature Gran % (Auto) 0.500, Neut % (Auto) 64.6, Lymph % (Auto) 21.7, [place] % (Auto) 12.3 H, Eos % (Auto) 0.5, Baso % (Auto) 0.4, Absolute Neuts (auto) 3.6, Absolute Lymphs (auto) 1.22, Nucleated RBC % 0, Differential Comment SCANNED, Polychromasia RARE, Anisocytosis 2+, Microcytosis 1+ 01/18/22 06:46: POC Glucose 117 H Micro: Microbiology 01/16/22 06:45 Wound - Leg, Left Gram Stain - Final 01/16/22 06:45 Wound - Leg, Left Wound Culture - Preliminary Meth. resistant Staph. aureus Gram negative josé Beta streptococcus Gram positive josé 01/15/22 15:00 Urine, Catheterized Urine Culture - Final Escherichia coli Klebsiella pneumoniae sp pneum 01/15/22 15:00 Blood Culture (Wb) - Anticubital Left Blood Culture - Preliminary No growth in 48 hours. 01/15/22 15:00 Blood Culture (Wb) - Anticubital Left Blood Culture - Preliminary No growth in 48 hours. Physical Exam Const alert, oriented x3 and no apparent distress Orientation / Consciousness: awake, oriented to person, oriented to place and oriented to time HEENT normocephalic and moist oral mucous membranes Eyes PERRL, EOMs intact bilaterally and conjunctivae normal Neck no lymphadenopathy Resp clear to auscultation bilaterally Auscultation: diminished lung sounds Cardio no murmurs Cardio Narrative: Atrial fibrillation Peripheral Pulses: pulses 2+ throughout GI normal to inspection, nondistended, normoactive bowel sounds, non-tender and non-distended Extremity normal to inspection General Extremity: edema bilateral lower extremity (generalized edema as well) Skin no rashes or lesions noted Lesions: no lesions Rashes: no rashes Trauma: no lacerations or abrasions Neuro CN's II-XII intact bilaterally, no focal motor deficits, no sensory deficits noted and deep tendon reflexes 2+ bilaterally Psych Mood & Affect: flat affect Assessment & Plan Assessment/Plan (1) Acute on chronic diastolic CHF (congestive heart failure): PLAN: Plan 1.? Acute on chronic heart failure with preserved ejection fraction-echocardiogram with EF 65%, mild to moderate mitral valve insufficiency, moderately severe tricuspid valve insufficiency, right ventricular systolic pressure estimated to be 58 mmHg.? Lasix drip.? Strict I&O.? Daily weight. 2. Acute on chronic hypoxic respiratory failure secondary to acute on chronic heart failure with preserved ejection fraction, complicated by underlying severe pulmonary hypertension-on 2 L nasal cannula at baseline.? Requiring 3 to 4 L supplemental oxygen during admission with notable dyspnea and tachypnea.? Now improved on Lasix drip. 3. Acute E. coli/Klebsiella cystitis-IV Rocephin pending final culture. 4. Left anterior barrientos stasis ulcer-MRSA on culture .? Wound RN consulted. Topical Bactroban. 5. Severe pulmonary hypertension 6. Chronic asthma-no exacerbation.? As needed albuterol aerosol. 7. Type 2 diabetes [id number] with sliding scale insulin. 8. Hypertension-stable, continue current regimen. 9. Hyperlipidemia-continue statin. 10. Chronic debility-PT/OT.? Resides at SNF. 11. Depression-on Lexapro. DVT prophylaxis- Eliquis This patient was seen by Amanda Shepard, ABEL-C under the supervision of Dr. Finch. Discharge planning: Return to SNF when medically stable Time spent examining patient, reviewing data and subsequent management of care: 13 minutes Documented by User: Dr. Blas Finch, DO 01/18/22 12:48 Objective Data Lab / Micro Data Result Diagrams: 01/18/22 04:38 01/18/22 04:38 Assessment & Plan Assessment/Plan (1) Acute on chronic diastolic CHF (congestive heart failure): Charges/Coding Addendum Addendum: Patient was seen and examined today independently of Amanda Shepard, her legs overall look less edematous than at the time of admission, she continues to diurese on IV continuous Lasix. Patient's potassium was slightly low at 3.4 today, I gave her supplemental potassium by mouth. On examination she appeared older than her stated age, she appeared frail, she does not appear to be in any distress. Vital signs as documented. Skin warm and dry and without overt rashes. Neck without JVD, thyroid appears normal, trachea is midline, neck is supple. Lungs clear, normal air movement was noted. Heart exam notable for irregular rhythm, normal sounds and absence of murmurs, rubs or gallops. Abdomen unremarkable and without evidence of organomegaly, masses, or abdominal aortic enlargement, bowel sounds are present in all 4 quadrants, no abdominal tenderness was noted. Extremities-there is severe edema of both lower legs noted to be present, patient's arms are also edematous.? Neuro: Cranial nerves II through XII are grossly intact, no focal motor deficits were noted, sensation to light touch and pinprick is intact, motor exam 5/5 throughout.? Psych: Patient is alert and oriented x3, she does not appear anxious or depressed, she does not appear agitated. #1 Acute on chronic hypoxic respiratory failure-patient is now on 3 L via nasal cannula-Baseline appears to be 2 L via nasal cannula,, she appears comfortable at rest #2 mild diastolic congestive heart failure on a backdrop of pulmonary hypertension-continue IV Lasix at this time #3 acute cystitis-E. coli and gram-negative josé-patient is on IV Rocephin, patient's white blood cell count appears normal #4 type 2 diabetes-patient's blood sugars will be monitored, sliding scale insulin will be given as needed #5 severe lower extremity edema-patient's albumin was 1.5, I think this is partly responsible for the patient's lower leg edema but she also has a history of pulmonary hypertension, this combination makes care extremely difficult.? Again I have decided to place the patient on IV diuresis with Lasix at 5 mg/h, electrolytes will be monitored, blood pressure will be monitored. #6 hypotension-corrected at this time, patient remains off her Cardizem CD #7 severe pulmonary hypertension-complicates care recovery and prognosis #8 asthma-patient is chronically on 2 L of oxygen at the assisted, pulse ox will be monitored #9 chronic debility-patient is a long-term resident at a retirement facility, this makes recovery care and prognosis guarded #10 lactic acidosis-secondary to hypoxic respiratory failure, pulse ox will be monitored #11 chronic atrial fibrillation-patient is on her Eliquis again, INR was 1.8 today I have reviewed Amanda Shepard's progress note including her medical assessment and plan of care and endorse it with the above additions. Total clinical time spent by myself addressing the patient's medical issues, reviewing the patient's data, and collaborating with patient's care team: 22 minutes. Visit Charges Inpatient E&M: 28209 Subs Hosp L3
[2022-01-18 11:55] LABS: Bedside Glucose 130 mg/dL (74-106)
[2022-01-18 17:46] LABS: Bedside Glucose 160 mg/dL (74-106)
[2022-01-18] MEDS: 0.9% Saline Lock 10 ML Syringe IV (18:53)
[2022-01-18] MEDS: Metoprolol Tartrate 25 MG Tablet 12.5 MG PO ×2 (18:53→21:49)
[2022-01-18] MEDS: Digoxin 250 MCG/ML Ampul 500 MCG IV (18:53)
[2022-01-18] MEDS: Atorvastatin Calcium 20 MG Tablet PO (21:45)
[2022-01-18] MEDS: Insulin Lispro 100 UNIT/ML INSULN.PEN SC (21:49)
[2022-01-18 23:00] LABS: Bedside Glucose 176 mg/dL (74-106)
[2022-01-19] VITALS (8 sets, daily range): BP systolic 100–128; BP diastolic 44–66; PULSE 79–88; RESP 16–18; TEMP 36.4–36.7; O2SAT 95–98
[2022-01-19] MEDS: Digoxin 250 MCG/ML Ampul IV (01:29)
--- NOTE | 2022-01-19 05:00 | NURSING ---
assumed care of pt
[2022-01-19 06:33] LABS: International Normalized Ratio 1.6; Prothrombin Time (Protime)PT. 18.3 SECONDS (11.7-14.9)
[2022-01-19 07:06] LABS: Anion Gap 3 (5-15); BUN 22 mg/dL (7-18); BUN/Creat Ratio 48.5 RATIO (10-20); Calcium,Total 8.2 mg/dL (8.5-10.1); Chloride 94 mmol/L (98-107); Creatinine, Serum 0.45 mg/dL (0.55-1.02); EST Glomerular Filtration Rate 144 mL/min (>60); Est Glom Filt Rate - Afr Amer 174 mL/min (>60); Estimated Creatinine Clearance 43.27 ml/min; Glucose 125 mg/dL (74-106); Sodium Level 138 mmol/L (136-145)
[2022-01-19 07:10] LABS: Bedside Glucose 146 mg/dL (74-106)
[2022-01-19] MEDS: Ceftriaxone 1 GM/50 ML BAG IV (10:19)
[2022-01-19] MEDS: Aspirin E.C. 81 MG Tablet PO (10:21)
[2022-01-19] MEDS: Escitalopram Oxalate 10 MG Tablet 5 MG PO (10:21)
[2022-01-19] MEDS: Tolterodine Tartrate 4 MG CAP.SA PO (10:22)
[2022-01-19] MEDS: APIXABAN 5 MG TABLET PO (10:22)
[2022-01-19] MEDS: Famotidine 20 MG Tablet PO (10:22)
[2022-01-19] MEDS: Polyethylene Glycol 3350 17 GM PACKET PO (10:23)
[2022-01-19] MEDS: Juven (unflavored) Packet 1 PACKET PO (10:23)
[2022-01-19] MEDS: Mupirocin Ointment 22gm Tube 1 APPLIC TOPICAL (10:23)
[2022-01-19] MEDS: Metoprolol Tartrate 25 MG Tablet 12.5 MG PO (10:28)
--- NOTE | 2022-01-19 11:40 | TREXTCAR_ITS ---
Diet Diet Order/Speech Therapy: 01/16/22 15:34 Diet: Carbohydrate Controlled Dietary Modifications:: Sodium Restricted Is pt able to select menu?: Yes Routine Orders/Code Status Enema Type: Fleetz Enema Frequency: Daily PRN Suppository Type: Dulcolax 10mg Suppository Frequency: Daily PRN O2 Liters per Minute: 3 O2 Frequency: Continuous Keep PO Greater than or Equal to (%): 90 Routine Lab Work: - (Weekly CBC, BMP) Code Status: DNRCC-A (No intubation) Wound(s) left barrientos: Wound Type: Stasis Ulcer left lateral lower leg: Wound Type: Stasis Ulcer Dressing Change: AntiMicrobial (Aquacel AG, etc) sacrum: Wound Type: Pressure Injury Dressing Change: Mepilex Therapies Physical Therapy: Eval and Treat Occupational Therapy: Eval and Treat Speech Therapy: Eval and Treat Problem/Diagnosis (1) Acute on chronic diastolic CHF (congestive heart failure): Status: Chronic Code(s): I50.33 - Acute on chronic diastolic (congestive) heart failure Plan 1.? Acute on chronic heart failure with preserved ejection fraction 2. Acute on chronic hypoxic respiratory failure secondary to acute on chronic heart failure with preserved ejection fraction, complicated by underlying severe pulmonary hypertension 3. Acute E. coli/Klebsiella cystitis 4. Left anterior barrientos stasis ulcer 5. Severe pulmonary hypertension 6. Chronic asthma 7. Type 2 diabetes mellitus 8. Hypertension 9. Hyperlipidemia 10. Chronic debility 11. Depression Allergies/Procedures Done in Hospital Allergies lisinopril Adverse Reaction (Intermediate, Verified 01/15/22 12:54) Unknown penicillin G Adverse Reaction (Intermediate, Verified 01/15/22 12:54) Unknown exenatide [From [place]] Adverse Reaction (Unknown, Verified 01/15/22 12:54) Unknown Procedures: 2-D Echocardiogram Type of Care/Length of Stay Estimated LOS: More Than 30 Days Type of Care Needed: Intermediate Rehab Potential: None Prognosis: None Additional Orders/Day of Discharge H&P will serve as current which was dated: 01/15/22 Day of Discharge: 01/19/22 Dietary and Speech Recommendations Dietitian Recommendations/Changes: Sodium restricted, CHO controlled diet; Abhilash BID for wounds Discharge Plan Admission Admit Date/Time: 01/15/22 16:31 Primary Reason for Your Visit: CHF, UTI Attending Provider: Blas Finch Primary Care Provider: Imer Villanueva Discharge Orders/Prescriptions Prescriptions: New cephalexin 500 mg Capsule 500 mg PO Q12 4 Days Qty: 8 0RF mupirocin 2 % Ointment 1 applic topical BID Qty: 0 0RF Protocol: *Topical Application Instructions APPLICATION INSTRUCTIONS: Apply to left barrientos wound twice daily metoprolol tartrate 25 mg Tablet 12.5 mg PO BID Qty: 0 0RF Continued cholecalciferol (vitamin D3) 2,000 unit capsule 2,000 unit PO DAILY atorvastatin 20 mg tablet 20 mg PO QHS metformin 500 mg tablet 500 mg PO BID famotidine 20 mg tablet 20 mg PO QHS ferrous sulfate 325 mg (65 mg iron) tablet,delayed release (DR/EC) 325 mg PO DAILY tramadol 50 mg tablet 50 mg PO 4X/DAY polyethylene glycol 3350 [Miralax] 17 gram/dose powder 17 g PO DAILY gabapentin 300 mg capsule 300 mg PO BID Label Comments: nerve pain Eliquis 5 mg Tablet 5 mg PO BID Label Comments: . pilocarpine HCl 5 mg tablet 5 mg PO TIDCM escitalopram oxalate [Lexapro] 5 mg Tablet 5 mg PO DAILY albuterol sulfate 90 mcg/actuation Hfa Aerosol Inhaler 2 puff INHALATION Q6H PRN (Reason: sob) multivitamin Tablet 1 tab PO DAILY sennosides [senna] 8.6 mg Tablet 8.6 mg PO BID oxybutynin chloride 15 mg tablet extended release 24hr 15 mg PO DAILY cetirizine [Zyrtec] 10 mg Tablet 10 mg PO QHS biotin 5 mg Capsule 5 mg PO DAILY bisacodyl 10 mg Suppository 10 mg NC DAILY PRN (Reason: Constipation) acetaminophen 325 MG tablet 650 mg PO TID aspirin [Adult Low Dose Aspirin] 81 mg tablet,delayed release (DR/EC) 81 mg PO DAILY potassium chloride 20 mEq tablet extended release 20 meq PO DAILY magnesium oxide 400 mg magnesium tablet 400 mg PO DAILY Discontinued furosemide [Lasix] 40 mg Tablet 40 mg PO DAILY diltiazem HCl 240 mg capsule,extended release 24hr 240 mg PO DAILY Referrals / Follow Up: Prabhakar Matias MD [STAFF PHYSICIAN] - See Referral Note (As scheduled 02/05/2022) Dorota Hilton NP, STITCH BONDING MACHINE OPERATOR-C [Nurse Practitioner] - See Referral Note (As scheduled 03/05/2022) Imer Villanueva [Primary Care Provider] - In 1 Week Disposition Disposition (needs filled in before D/C Order can be placed): Long-Term Facility
[2022-01-19 11:55] LABS: Bedside Glucose 137 mg/dL (74-106)
--- NOTE | 2022-01-19 12:12 | DS.PCM_ITS ---
Documented by User: Amanda Shepard NP, [employer] 01/19/22 12:16 Providers Date of Admission: 01/15/22 Date of Discharge: 01/19/22 Primary Care Physician: Imer Villanueva Consultations 01/16/22 06:14 Consult: Onc/Wound/integration project manager Routine Comment: Reason for Consult:: L anterior barrientos Reason For Visit: acute on chronic hypoxic respiratory failure,chf, Diagnosis Discharge Diagnosis (1) Acute on chronic diastolic CHF (congestive heart failure): Status: Chronic Code(s): I50.33 - Acute on chronic diastolic (congestive) heart failure Plan 1.? Acute on chronic heart failure with preserved ejection fraction 2. Acute on chronic hypoxic respiratory failure secondary to acute on chronic heart failure with preserved ejection fraction, complicated by underlying severe pulmonary hypertension 3. Acute E. coli/Klebsiella cystitis 4. Left anterior barrientos stasis ulcer 5. Severe pulmonary hypertension 6. Chronic asthma 7. Type 2 diabetes mellitus 8. Hypertension 9. Hyperlipidemia 10. Chronic debility 11. Depression Medications at Discharge Home Medications cholecalciferol (vitamin D3) 50 mcg (2,000 unit) capsule 2,000 unit PO DAILY SUPPLEMENT 10/07/18 atorvastatin 20 mg tablet 20 mg PO QHS CHOLESTEROL 05/24/20 gabapentin 300 mg capsule 300 mg PO BID Nerve Pain 05/24/20 metformin 500 mg tablet 500 mg PO BID DM 11/15/20 ferrous sulfate 325 mg (65 mg iron) tablet,delayed release 325 mg PO DAILY SUPPLEMENT 01/10/21 tramadol 50 mg tablet 50 mg PO 4X/DAY PAIN 01/10/21 famotidine 20 mg tablet 20 mg PO QHS GERD 01/11/21 apixaban 5 mg tablet (Eliquis) 5 mg PO BID AFIB 03/09/21 escitalopram oxalate 5 mg tablet (Lexapro) 5 mg PO DAILY DEPRESSION 07/24/21 pilocarpine HCl 5 mg tablet 5 mg PO TIDCM DRY MOUTH 07/24/21 polyethylene glycol 3350 17 gram/dose oral powder (Miralax) 17 g PO DAILY CONSTIPATION 09/12/21 acetaminophen 325 mg tablet 650 mg PO TID PAIN AND FEVER 01/15/22 albuterol sulfate 90 mcg/actuation aerosol inhaler 2 puff inhalation Q6H PRN sob 01/15/22 aspirin 81 mg tablet,delayed release (Adult Low Dose Aspirin) 81 mg PO DAILY HEART HEALTH 01/15/22 biotin 5 mg capsule 5 mg PO DAILY HAIR SKIN AND NAILS 01/15/22 bisacodyl 10 mg rectal suppository 10 mg AR DAILY PRN Constipation 01/15/22 cetirizine 10 mg tablet (Zyrtec) 10 mg PO QHS ALLERGIES 01/15/22 magnesium oxide 400 mg PO DAILY SUPPLEMENT 01/15/22 multivitamin 1 tab PO DAILY SUPPLEMENT 01/15/22 oxybutynin chloride 15 mg tablet,extended release 24 hr 15 mg PO DAILY BLADDER 01/15/22 potassium chloride 20 mEq tablet,extended release 20 meq PO DAILY SUPPLEMENT 01/15/22 sennosides 8.6 mg tablet (senna) 8.6 mg PO BID CONSTIPATION 01/15/22 cephalexin 500 mg capsule 500 mg PO Q12 4 days #8 caps 01/19/22 metoprolol tartrate 25 mg tablet 12.5 mg PO BID #0 tabs 01/19/22 mupirocin 2 % topical ointment 1 applic topical BID #0 grams 01/19/22 Hospital Course Operations None Procedures 2-D Echocardiogram Summary of Care Provided Hospital Course: Patient is a 71-year-old female admitted 01/15/22 due to altered mental status. 1.? Acute on chronic heart failure with preserved ejection fraction- echocardiogram with EF 65%, mild to moderate mitral valve insufficiency, moderately severe tricuspid valve insufficiency, right ventricular systolic pressure estimated to be 58 mmHg.? Lasix drip during admission. Home Lasix regimen increased to 40 mg twice daily. Follow-up with cardiology as scheduled. 2. Acute on chronic hypoxic respiratory failure secondary to acute on chronic heart failure with preserved ejection fraction, complicated by underlying severe pulmonary hypertension-on 2 L nasal cannula at baseline.? Requiring 3 to 4 L supplemental oxygen during admission with notable dyspnea and tachypnea.? Now improved following Lasix drip. Continue supplement oxygen to maintain O2 at above 90%. 3. Acute E. coli/Klebsiella cystitis-IV Rocephin during admission. Transition to Keflex to complete course. 4. Left anterior barrientos stasis ulcer-MRSA on culture.Topical Bactroban X1 Week. Continue dressing changes as ordered. 5. Severe pulmonary hypertension-continue follow-up with pulmonary medicine. 6. Chronic asthma-no exacerbation.? 7. Type 2 diabetes mellitus-continue home regimen. 8. Hypertension-stable, continue current regimen. 9. Hyperlipidemia-continue statin. 10. Chronic debility-PT/OT.? Resides at SNF. Not motivated to work with therapy. 11. Depression-on Lexapro. Physical Exam Const alert, oriented x3 and no apparent distress Orientation / Consciousness: awake, oriented to person, oriented to place and oriented to time HEENT normocephalic and moist oral mucous membranes Eyes PERRL, EOMs intact bilaterally and conjunctivae normal Neck no lymphadenopathy Resp clear to auscultation bilaterally Auscultation: diminished lung sounds Cardio no murmurs Cardio Narrative: Atrial fibrillation Peripheral Pulses: pulses 2+ throughout GI normal to inspection, nondistended, normoactive bowel sounds, non-tender and non-distended Extremity normal to inspection General Extremity: edema bilateral lower extremity (generalized edema as well) edema significantly improved. Skin no rashes or lesions noted Lesions: no lesions Rashes: no rashes Trauma: no lacerations or abrasions Neuro CN's II-XII intact bilaterally, no focal motor deficits, no sensory deficits noted and deep tendon reflexes 2+ bilaterally Psych Mood & Affect: flat affect Patient seen and examined prior to discharge. Physical assessment as noted above. Patient is stable for discharge with follow up recommendations as noted above. This patient was seen by ROCHELLE Bower under the supervision of Dr. Finch. Time spent examining patient, reviewing data and subsequent management of care: 25 minutes Weight / BMI Weight Weight: 209 lb 7.026 oz Body Mass Index (BMI) 38.1 ABG / Lab / Microbiology Data Result Diagrams: 01/18/22 04:38 01/19/22 05:57 Laboratory: Laboratory Results - last 24 hr 01/18/22 17:07: POC Glucose 160 H 01/18/22 21:47: POC Glucose 176 H 01/19/22 05:57: PT 18.3 H, INR 1.6 01/19/22 05:57: Sodium 138, Potassium 4.0, Chloride 94 L, Carbon Dioxide 41.0 H, Anion Gap 3 L, BUN 22 H, Creatinine 0.45 L, Estim Creat Clear Calc 43.27, Est GFR (MDRD) Af Amer 174, Est GFR (MDRD) Non-Af 144, BUN/Creatinine Ratio 48.5 H, Glucose 125 H, Calcium 8.2 L 01/19/22 06:47: POC Glucose 146 H 01/19/22 11:33: POC Glucose 137 H Microbiology: Microbiology 01/16/22 06:45 Wound - Leg, Left Gram Stain - Final 01/16/22 06:45 Wound - Leg, Left Wound Culture - Final Meth. resistant Staph. aureus Pseudomonas aeroginosa Streptococcus agalactiae (B) Gram positive josé 01/15/22 15:00 Urine, Catheterized Urine Culture - Final Escherichia coli Klebsiella pneumoniae sp pneum 01/15/22 15:00 Blood Culture (Wb) - Anticubital Left Blood Culture - Preliminary No growth in 48 hours. 01/15/22 15:00 Blood Culture (Wb) - Anticubital Left Blood Culture - Preliminary No growth in 48 hours. Meaningful Use Info Meaningful Use Diagnoses (Choose all that apply): CHF CHF LACI/ARB ordered at discharge?: No Reason LACI/ARB not ordered?: Hypotension and Not indicated Documented LVEF (%): 65 Discharge Plan Admission Admit Date/Time: 01/15/22 16:31 Primary Reason for Your Visit: CHF, UTI Attending Provider: Blas Finch Primary Care Provider: Imer Villanueva Discharge Orders/Prescriptions Prescriptions: New cephalexin 500 mg Capsule 500 mg PO Q12 4 Days Qty: 8 0RF mupirocin 2 % Ointment 1 applic topical BID Qty: 0 0RF Protocol: *Topical Application Instructions APPLICATION INSTRUCTIONS: Apply to left barrientos wound twice daily metoprolol tartrate 25 mg Tablet 12.5 mg PO BID Qty: 0 0RF Continued cholecalciferol (vitamin D3) 2,000 unit capsule 2,000 unit PO DAILY atorvastatin 20 mg tablet 20 mg PO QHS metformin 500 mg tablet 500 mg PO BID famotidine 20 mg tablet 20 mg PO QHS ferrous sulfate 325 mg (65 mg iron) tablet,delayed release (DR/EC) 325 mg PO DAILY tramadol 50 mg tablet 50 mg PO 4X/DAY polyethylene glycol 3350 [Miralax] 17 gram/dose powder 17 g PO DAILY gabapentin 300 mg capsule 300 mg PO BID Label Comments: nerve pain Eliquis 5 mg Tablet 5 mg PO BID Label Comments: . pilocarpine HCl 5 mg tablet 5 mg PO TIDCM escitalopram oxalate [Lexapro] 5 mg Tablet 5 mg PO DAILY albuterol sulfate 90 mcg/actuation Hfa Aerosol Inhaler 2 puff INHALATION Q6H PRN (Reason: sob) multivitamin Tablet 1 tab PO DAILY sennosides [senna] 8.6 mg Tablet 8.6 mg PO BID oxybutynin chloride 15 mg tablet extended release 24hr 15 mg PO DAILY cetirizine [Zyrtec] 10 mg Tablet 10 mg PO QHS biotin 5 mg Capsule 5 mg PO DAILY bisacodyl 10 mg Suppository 10 mg AR DAILY PRN (Reason: Constipation) acetaminophen 325 MG tablet 650 mg PO TID aspirin [Adult Low Dose Aspirin] 81 mg tablet,delayed release (DR/EC) 81 mg PO DAILY potassium chloride 20 mEq tablet extended release 20 meq PO DAILY magnesium oxide 400 mg magnesium tablet 400 mg PO DAILY Discontinued furosemide [Lasix] 40 mg Tablet 40 mg PO DAILY diltiazem HCl 240 mg capsule,extended release 24hr 240 mg PO DAILY Referrals / Follow Up: Prabhakar Matias MD [STAFF PHYSICIAN] - See Referral Note (As scheduled 02/05/2022) Dorota Hilton NP, [employer] [Nurse Practitioner] - See Referral Note (As scheduled 03/05/2022) Imer Villanueva [Primary Care Provider] - In 1 Week Disposition Disposition (needs filled in before D/C Order can be placed): Long-Term Facility Documented by User: Dr. Blas Finch DO 01/19/22 13:32 Providers Date of Admission: 01/15/22 Reason For Visit: acute on chronic hypoxic respiratory failure,chf, Diagnosis Discharge Diagnosis (1) Acute on chronic diastolic CHF (congestive heart failure): Status: Chronic Code(s): I50.33 - Acute on chronic diastolic (congestive) heart failure Medications at Discharge Home Medications cholecalciferol (vitamin D3) 50 mcg (2,000 unit) capsule 2,000 unit PO DAILY SUP PLEMENT 10/07/18 atorvastatin 20 mg tablet 20 mg PO QHS CHOLESTEROL 05/24/20 gabapentin 300 mg capsule 300 mg PO BID Nerve Pain 05/24/20 metformin 500 mg tablet 500 mg PO BID DM 11/15/20 ferrous sulfate 325 mg (65 mg iron) tablet,delayed release 325 mg PO DAILY SUPPLEMENT 01/10/21 tramadol 50 mg tablet 50 mg PO 4X/DAY PAIN 01/10/21 famotidine 20 mg tablet 20 mg PO QHS GERD 01/11/21 apixaban 5 mg tablet (Eliquis) 5 mg PO BID AFIB 03/09/21 escitalopram oxalate 5 mg tablet (Lexapro) 5 mg PO DAILY DEPRESSION 07/24/21 pilocarpine HCl 5 mg tablet 5 mg PO TIDCM DRY MOUTH 07/24/21 polyethylene glycol 3350 17 gram/dose oral powder (Miralax) 17 g PO DAILY CONSTIPATION 09/12/21 acetaminophen 325 mg tablet 650 mg PO TID PAIN AND FEVER 01/15/22 albuterol sulfate 90 mcg/actuation aerosol inhaler 2 puff inhalation Q6H PRN sob 01/15/22 aspirin 81 mg tablet,delayed release (Adult Low Dose Aspirin) 81 mg PO DAILY HEART HEALTH 01/15/22 biotin 5 mg capsule 5 mg PO DAILY HAIR SKIN AND NAILS 01/15/22 bisacodyl 10 mg rectal suppository 10 mg AR DAILY PRN Constipation 01/15/22 cetirizine 10 mg tablet (Zyrtec) 10 mg PO QHS ALLERGIES 01/15/22 magnesium oxide 400 mg PO DAILY SUPPLEMENT 01/15/22 multivitamin 1 tab PO DAILY SUPPLEMENT 01/15/22 oxybutynin chloride 15 mg tablet,extended release 24 hr 15 mg PO DAILY BLADDER 01/15/22 potassium chloride 20 mEq tablet,extended release 20 meq PO DAILY SUPPLEMENT 01/15/22 sennosides 8.6 mg tablet (senna) 8.6 mg PO BID CONSTIPATION 01/15/22 cephalexin 500 mg capsule 500 mg PO Q12 4 days #8 caps 01/19/22 metoprolol tartrate 25 mg tablet 12.5 mg PO BID #0 tabs 01/19/22 mupirocin 2 % topical ointment 1 applic topical BID #0 grams 01/19/22 ABG / Lab / Microbiology Data Result Diagrams: 01/18/22 04:38 01/19/22 05:57 Discharge Plan Admission Admit Date/Time: 01/15/22 16:31 Primary Reason for Your Visit: CHF, UTI Attending Provider: Blas Finch Primary Care Provider: Imer Villanueva Discharge Orders/Prescriptions Prescriptions: New cephalexin 500 mg Capsule 500 mg PO Q12 4 Days Qty: 8 0RF mupirocin 2 % Ointment 1 applic topical BID Qty: 0 0RF Protocol: *Topical Application Instructions APPLICATION INSTRUCTIONS: Apply to left barrientos wound twice daily metoprolol tartrate 25 mg Tablet 12.5 mg PO BID Qty: 0 0RF Continued cholecalciferol (vitamin D3) 2,000 unit capsule 2,000 unit PO DAILY atorvastatin 20 mg tablet 20 mg PO QHS metformin 500 mg tablet 500 mg PO BID famotidine 20 mg tablet 20 mg PO QHS ferrous sulfate 325 mg (65 mg iron) tablet,delayed release (DR/EC) 325 mg PO DAILY tramadol 50 mg tablet 50 mg PO 4X/DAY polyethylene glycol 3350 [Miralax] 17 gram/dose powder 17 g PO DAILY gabapentin 300 mg capsule 300 mg PO BID Label Comments: nerve pain Eliquis 5 mg Tablet 5 mg PO BID Label Comments: . pilocarpine HCl 5 mg tablet 5 mg PO TIDCM escitalopram oxalate [Lexapro] 5 mg Tablet 5 mg PO DAILY albuterol sulfate 90 mcg/actuation Hfa Aerosol Inhaler 2 puff INHALATION Q6H PRN (Reason: sob) multivitamin Tablet 1 tab PO DAILY sennosides [senna] 8.6 mg Tablet 8.6 mg PO BID oxybutynin chloride 15 mg tablet extended release 24hr 15 mg PO DAILY cetirizine [Zyrtec] 10 mg Tablet 10 mg PO QHS biotin 5 mg Capsule 5 mg PO DAILY bisacodyl 10 mg Suppository 10 mg AR DAILY PRN (Reason: Constipation) acetaminophen 325 MG tablet 650 mg PO TID aspirin [Adult Low Dose Aspirin] 81 mg tablet,delayed release (DR/EC) 81 mg PO DAILY potassium chloride 20 mEq tablet extended release 20 meq PO DAILY magnesium oxide 400 mg magnesium tablet 400 mg PO DAILY Discontinued furosemide [Lasix] 40 mg Tablet 40 mg PO DAILY diltiazem HCl 240 mg capsule,extended release 24hr 240 mg PO DAILY Referrals / Follow Up: Prabhakar Matias MD [STAFF PHYSICIAN] - See Referral Note (As scheduled 02/05/2022) Dorota Hilton NP, [employer] [Nurse Practitioner] - See Referral Note (As scheduled 03/05/2022) Imer Villanueva [Primary Care Provider] - In 1 Week Disposition Disposition (needs filled in before D/C Order can be placed): Long-Term Facility Charges/Coding Addendum Addendum: Patient was seen and examined today, the swelling in her legs has improved dramatically, I think she is stable to return to her senior living center. Patient will resume her oral Lasix there. Patient was placed on Lanoxin and m etoprolol due to her tachycardia yesterday, she does remain in atrial fibrillation at this time but the rate appears controlled. On examination she appeared older than her stated age, she appeared frail, she does not appear to be in any distress. Vital signs as documented. Skin warm and dry and without overt rashes. Neck without JVD, thyroid appears normal, trachea is midline, neck is supple. Lungs clear, normal air movement was noted. Heart exam notable for irregular rhythm, normal sounds and absence of murmurs, rubs or gallops. Abdomen unremarkable and without evidence of organomegaly, masses, or abdominal aortic enlargement, bowel sounds are present in all 4 quadrants, no abdominal tenderness was noted. Extremities-there is edema of the arms and lower legs noted on examination today which is greatly improved from previous examinations..? Neuro: Cranial nerves II through XII are grossly intact, no focal motor deficits were noted, sensation to light touch and pinprick is intact, motor exam 5/5 throughout.? Psych: Patient is alert and oriented x3, she does not appear anxious or depressed, she does not appear agitated. #1 Acute on chronic hypoxic respiratory failure-patient is now on 3 L via nasal cannula-Baseline appears to be 2 L via nasal cannula,, she appears comfortable at rest patient appears stable for discharge back to her extended care facility. #2 mild diastolic congestive heart failure on a backdrop of pulmonary hypertension-continue IV Lasix at this time #3 acute cystitis-E. coli and gram-negative josé-patient is on IV Rocephin, patient's white blood cell count appears normal #4 type 2 diabetes-patient's blood sugars will be monitored, sliding scale insulin will be given as needed #5 severe lower extremity edema-patient's albumin was 1.5, I think this is partly responsible for the patient's lower leg edema but she also has a history of pulmonary hypertension, this combination makes care extremely difficult.? Again I have decided to place the patient on IV diuresis with Lasix at 5 mg/h, electrolytes will be monitored, blood pressure will be monitored. #6 hypotension-corrected at this time, patient remains off her Cardizem CD #7 severe pulmonary hypertension-complicates care recovery and prognosis #8 asthma-patient is presently on 3 L via nasal cannula, she will return to the extended care facility on 3 L. #9 chronic debility-patient is a long-term resident at a senior living facility, this makes recovery care and prognosis guarded #10 lactic acidosis-secondary to hypoxic respiratory failure, pulse ox will be monitored #11 chronic atrial fibrillation-patient is on Eliquis I have reviewed Amanda Shepard's discharge summary including her medical assessment and plan of care and with the above additions endorse it. Total clinical time spent by myself addressing the patient's medical issues, reviewing the data, and collaborating with patient's care team: 30 minutes Visit Charges Inpatient E&M: [id number] Disch Hosp
--- NOTE | 2022-01-19 13:12 | NURSING ---
Addendum entered by Benita Little 01/19/22 16:46: late entry 1312: When this RN called report to receiving facility rachel stated she was not aware of pt returning to [facility] and needed precert and ok from DON. This RN spoke with NUZHAT/KEVIN, per Melissa pt doesn't need precert to return. Green sheet and CM report and note from yesterday also states no precert needed. Pt transferring back to [facility]. Original Note: Report called to [facility] at [facility] at 1312 to KELLY Mayes.
== END 2022-01-19 14:00 | disposition skilled nursing facility (03) | DRG 291 ==
LOC: ED 16:51 → PCU 17:01
PROVIDERS: Nurse Practitioner Family; Admitting Provider Internal Medicine; Emergency Provider Emergency Medicine; PCP Family Medicine; Visit Provider Internal Medicine
DX: I11.0 Hypertensive heart disease with heart failure (principal); I50.33 Acute on chronic diastolic (congestive) heart failure; J96.21 Acute and chronic respiratory failure with hypoxia; N30.00 Acute cystitis without hematuria; L97.829 Non-pressure chronic ulcer of other part of left lower leg with unspecified severity; I48.20 Chronic atrial fibrillation, unspecified; I27.20 Pulmonary hypertension, unspecified; E11.40 Type 2 diabetes mellitus with diabetic neuropathy, unspecified; B96.20 Unspecified Escherichia coli [E. coli] as the cause of diseases classified elsewhere; B96.1 Klebsiella pneumoniae [K. pneumoniae] as the cause of diseases classified elsewhere; I95.9 Hypotension, unspecified; D64.9 Anemia, unspecified; E86.9 Volume depletion, unspecified; G47.33 Obstructive sleep apnea (adult) (pediatric); E78.5 Hyperlipidemia, unspecified; I34.0 Nonrheumatic mitral (valve) insufficiency; J45.909 Unspecified asthma, uncomplicated; I87.2 Venous insufficiency (chronic) (peripheral); I35.0 Nonrheumatic aortic (valve) stenosis; R79.1 Abnormal coagulation profile; R53.81 Other malaise; F32.A Depression, unspecified; Z20.822 Contact with and (suspected) exposure to COVID-19; Z66 Do not resuscitate; Z79.82 Long term (current) use of aspirin; Z79.84 Long term (current) use of oral hypoglycemic drugs; Z79.01 Long term (current) use of anticoagulants; Z87.891 Personal history of nicotine dependence; Z96.652 Presence of left artificial knee joint
CPT/HCPCS: 36415; 51702; 71045; 80048; 80053; 81001; 82962; 83605; 83880; 84484; 85025; 85610; 85730; 87040; 87070; 87077; 87086; 87088; 87186; 87205; 87426; 87640; 92610; 93005; 93306; 97802; 99251; 99285; J7030; J7050; P9047; A4216; G0463; J1940

== ENCOUNTER 2022-01-19 16:31 | Observation (INO) | payer MEDICARE, MEDICAID, SELFPAY ==
[2022-01-19] VITALS (7 sets, daily range): BP systolic 96–130; BP diastolic 59–82; PULSE 81–102; RESP 14–20; TEMP 35.9–37.1; O2SAT 94–99; BMI 38.0; BMI 34.4
--- NOTE | 2022-01-19 16:38 | EX.ED.DYSGE1 ---
HPI <JOSSELYN Fuentes - Last Filed: 01/19/22 18:53> History of Present Illness Chief Complaint: Alt LOC Narrative Narrative: 71-year-old female with past medical history of HTN, HLD, DM2, A. fib, asthma, CHF, end stage pulmonary hypertension presents for altered mental status. She was just discharged from the PCU today at 2:30 PM after treatment for UTI and acute on chronic respiratory failure secondary to CHF. After IV diuresis she had some improvement was discharged back to SNF on 3 L. She was supposed to resume oral Lasix and start digoxin and metoprolol for A. fib rate control. She was also on antibiotics for the UTI. [facility] sent her back concerned for altered mental status. PFS <JOSSELYN Fuentes - Last Filed: 01/19/22 18:53> [facility] [place] Medical History Anemia Depression Essential hypertension Femur fracture, left GERD (gastroesophageal reflux disease) Hyperlipidemia Mitral stenosis Non-rheumatic mitral valve stenosis Nonrheumatic aortic (valve) stenosis Nonrheumatic aortic (valve) stenosis CHIDI (obstructive sleep apnea) Other secondary pulmonary hypertension Pulmonary hypertension Type 2 diabetes mellitus Home Medications cholecalciferol (vitamin D3) 50 mcg (2,000 unit) capsule 2,000 unit PO DAILY SUPPLEMENT 10/07/18 [History Last Taken 01/15/22] atorvastatin 20 mg tablet 20 mg PO QHS CHOLESTEROL 05/24/20 [History Last Taken 01/14/22] gabapentin 300 mg capsule 300 mg PO BID Nerve Pain 05/24/20 [History Last Taken 01/15/22] metformin 500 mg tablet 500 mg PO BID DM 11/15/20 [History Last Taken 01/15/22] ferrous sulfate 325 mg (65 mg iron) tablet,delayed release 325 mg PO DAILY SUPPLEMENT 01/10/21 [History Last Taken 01/15/22] tramadol 50 mg tablet 50 mg PO 4X/DAY PAIN 01/10/21 [History Last Taken 01/15/22] famotidine 20 mg tablet 20 mg PO QHS GERD 01/11/21 [History Last Taken 01/14/22] apixaban 5 mg tablet (Eliquis) 5 mg PO BID AFIB 03/09/21 [History Last Taken 01/15/22] escitalopram oxalate 5 mg tablet (Lexapro) 5 mg PO DAILY DEPRESSION 07/24/21 [History Last Taken 01/15/22] pilocarpine HCl 5 mg tablet 5 mg PO TIDCM DRY MOUTH 07/24/21 [History Last Taken 01/15/22] polyethylene glycol 3350 17 gram/dose oral powder (Miralax) 17 g PO DAILY CONSTIPATION 09/12/21 [History Last Taken 01/15/22] acetaminophen 325 mg tablet 650 mg PO TID PAIN AND FEVER 01/15/22 [History Last Taken 01/15/22] albuterol sulfate 90 mcg/actuation aerosol inhaler 2 puff inhalation Q6H PRN sob 01/15/22 [History Last Taken Unknown] aspirin 81 mg tablet,delayed release (Adult Low Dose Aspirin) 81 mg PO DAILY HEART HEALTH 01/15/22 [History Last Taken 01/15/22] biotin 5 mg capsule 5 mg PO DAILY HAIR SKIN AND NAILS 01/15/22 [History Last Taken 01/15/22] bisacodyl 10 mg rectal suppository 10 mg CA DAILY PRN Constipation 01/15/22 [History Last Taken 01/12/22] cetirizine 10 mg tablet (Zyrtec) 10 mg PO QHS ALLERGIES 01/15/22 [History Last Taken 01/14/22] magnesium oxide 400 mg PO DAILY SUPPLEMENT 01/15/22 [History Last Taken 01/15/22] multivitamin 1 tab PO DAILY SUPPLEMENT 01/15/22 [History Last Taken 01/15/22] oxybutynin chloride 15 mg tablet,extended release 24 hr 15 mg PO DAILY BLADDER 01/15/22 [History Last Taken 01/15/22] potassium chloride 20 mEq tablet,extended release 20 meq PO DAILY SUPPLEMENT 01/15/22 [History Last Taken 01/15/22] sennosides 8.6 mg tablet (senna) 8.6 mg PO BID CONSTIPATION 01/15/22 [History Last Taken 01/15/22] cephalexin 500 mg capsule 500 mg PO Q12 4 days #8 caps 01/19/22 [Rx Last Taken Unknown] metoprolol tartrate 25 mg tablet 12.5 mg PO BID #0 tabs 01/19/22 [Rx Last Taken Unknown] mupirocin 2 % topical ointment 1 applic topical BID #0 grams 01/19/22 [Rx Last Taken Unknown] Allergy/AdvReac Type Severity Reaction Status Date / Time lisinopril AdvReac Intermediate Unknown Verified 01/19/22 16:36 penicillin G AdvReac Intermediate Unknown Verified 01/19/22 16:36 exenatide [From [place]] AdvReac Unknown Unknown Verified 01/19/22 16:36 Family History Sister CAD (coronary artery disease) Hx of CABG Surgical History History of cholecystectomy History of dilatation and curettage History of hernia repair History of left heart catheterization (LHC) (~12/12/20) History of partial colectomy History of total left knee replacement Social History housing: correction number of children: 0 current occupational status: retired Smoking Status: Former smoker alcohol intake: never additional social history: single ROS <JOSSELYN Fuentes - Last Filed: 01/19/22 18:53> ROS ED ROS Narrative unable to obtain due to mental status EXAM <JOSSELYN Fuentes - Last Filed: 01/19/22 18:53> Physical Exam Narrative Exam Narrative: CONST: Patient sitting in no acute distress. EYES: Normal inspection. 3 mm pupils round equal reactive bilaterally, EOMI NECK: Normal inspection. RESP: No respiratory distress, CTAB. CVS: Regular rate and rhythm, no murmur, no gallop. ABD: Soft and nontender, no guarding or rebound. Back: Normal inspection, no CVA tenderness. SKIN: Color normal, no rash, warm, dry, intact. EXTREMITIES: Significant edema bilateral hands and lower extremities which are in Balbir wraps NEURO: She is staring off into space but responds to voice. Oriented to self, age. States the year is 1972. Cannot converse in any meaningful way more than a word or 2. Face is symmetric, she will move all extremities and squeeze my fingers with both hands. PSYCH: Normal affect. Const Vital Signs: 01/19/22 16:32 Temperature 96.7 F L Temperature Source Temporal Pulse Rate 102 H Respiratory Rate 14 Blood Pressure 96/74 Blood Pressure Mean 81 Pulse Ox 99 Oxygen Delivery Method Nasal Cannula Oxygen Flow Rate (L/min) 2 <Dr. Adrian Johnson MD - Last Filed: 01/19/22 19:34> Physical Exam Const Vital Signs: 01/19/22 16:32 Temperature 96.7 F L Temperature Source Temporal Pulse Rate 102 H Respiratory Rate 14 Blood Pressure 96/74 Blood Pressure Mean 81 Pulse Ox 99 Oxygen Delivery Method Nasal Cannula Oxygen Flow Rate (L/min) 2 MDM <JOSSELYN Fuentes - Last Filed: 01/19/22 18:53> [facility] MDM Narrative Medical decision making narrative: Patient was just discharged today after treatment for UTI/CHF and was sent back by her SNF due to altered mental status. She is awake but lethargic. She stares off into space but will respond to voice and says yes or no appropriately and can tell me her name and age. She was disoriented to the year and could not converse in any meaningful way. According to the SNF TI[employer] CENTER MANAGER she she is normally AOx2 but is more conversant than she is now. On examination her face is symmetric and she moves all extremities. Heart is regular with a murmur. Lungs are limited due to body habitus but sound clear and she is on 3L which is the same from discharge. Abdomen soft and nontender. She has significant swelling of the upper and lower extremities. I spoke with Dr. Finch since he had just seen her and he evaluated in the ER and states she is more out of it and will be admitted. Due to her edema they could not obtain a peripheral IV so RT is at bedside trying to get an arterial sample. Plan will be to check basic labs, chemistries, ammonia, ABG but these are all still pending. UA shows continued UTI which is already being treated. CXR is unchanged from previous and CT brain shows no acute process. Diagnoses 1. Altered mental status 2. UTI Radiography Chest X-Ray - ED: 1 View, Read by ED Physician and Unchanged Diagnostic Testing: Clinical Impression(s) from Imaging Studies Brain CT 01/19/22 17:32 IMPRESSION: Similar senescent changes with no evidence of acute intracranial bleed, mass or ischemia. Electronically Signed: Juni Ochoa DO at 18:29 EDT , ED attending interpretation shows normal heart size, right cassandra-diaphragm elevation, unchanged from previous. EKG Initial EKG: Attestation: I personally reviewed and interpreted this EKG as follows: Interpretation: Atrial Fibrillation Comments: A. fib at 87 bpm, no acute ischemia <Dr. Adrian Johnson MD - Last Filed: 01/19/22 19:34> [facility] MDM Narrative Medical decision making narrative: Patient was just discharged today after treatment for UTI/CHF and was sent back by her SNF due to altered mental status. She is awake but lethargic. She stares off into space but will respond to voice and says yes or no appropriately and can tell me her name and age. She was disoriented to the year and could not converse in any meaningful way. According to the SNF TIRE CENTER MANAGER she she is normally AOx2 but is more conversant than she is now. On examination her face is symmetric and she moves all extremities. Heart is regular with a murmur. Lungs are limited due to body habitus but sound clear and she is on 3L which is the same from discharge. Abdomen soft and nontender. She has significant swelling of the upper and lower extremities. I spoke with Dr. iFnch since he had just seen her and he evaluated in the ER and states she is more out of it and will be admitted. Due to her edema they could not obtain a peripheral IV so RT is at bedside trying to get an arterial sample. Plan will be to check basic labs, chemistries, ammonia, ABG but these are all still pending. UA shows continued UTI which is already being treated. CXR is unchanged from previous and CT brain shows no acute process. Diagnoses 1. Altered mental status 2. UTI I have personally performed a face to face assessment of the patient and have reviewed the NETTIE Note. I performed a substantive portion of the visit including all aspects of the following. My singh findings include: History is [71-year-old female seen earlier today with [place] by extended care facility due to mental status change. I have evaluated this patient with our physician cosmetic sales assistant.] Exam is [71-year-old female vital signs are stable. She is afebrile. She does not look septic or toxic. Pulse ox 95% on 2 L no hypoxia. H EENT exam unremarkable. Moist with membranes. No trauma. Neck nontender no meningismus. Lungs clear to auscultation. Heart regular rhythm no murmur. Abdomen soft nontender. Moving all 4 extremities. Patient is arousable. She will communicate. She seems confused.] Medical Decision Making [ ] Other additions or changes: [None] Lab Data Attestation: I reviewed the patient's lab results. Lab results narrative: CBC showed a white count of 10. H&H 12 and 41. Electrolytes unremarkable gap of 4. BUN 23 creatinine 0.6. Urinalysis consistent with UTI with positive nitrates, 50-100 white cells and 1+ bacteria. A culture will be sent. She will be started on antibiotics. Radiography Chest X-Ray - ED: 1 View, Read by ED Physician, Read by Radiologist, Heart, Lungs, Mediastinum, Bony Structures, No Acute Disease and Chronic Changes Diagnostic Testing: Clinical Impression(s) from Imaging Studies Brain CT 01/19/22 17:32 IMPRESSION: Similar senescent changes with no evidence of acute intracranial bleed, mass or ischemia. Electronically Signed: Juni Ochoa DO at 18:29 EDT , ED attending interpretation shows normal heart size, right cassandra-diaphragm elevation, unchanged from previous. Atelectasis. Chronic changes. Discharge Plan Triage Chief Complaint: Alt LOC ED Midlevel Provider: Haylie Avila ED Provider: Adrian Johnson Dx/Rx/DC Orders Primary Care Provider: Imer Villanueva
--- NOTE | 2022-01-19 16:46 | ED.RN ---
this rn spoke with pcu nurse who discharged pt. per ileana, pcu nurse pt has been baseline oriented x 1-2 and that she was initially admitted to pcu for altered loc.
--- NOTE | 2022-01-19 17:31 | HP.PCM.HOS_ITS ---
Documented by User: Amanda Shepard NP, BUILDING MAINTENANCE SUPERVISOR-C 01/19/22 17:44 HPI - General General Date of Admission: 01/19/22 Date of Service: 01/19/22 Chief Complaint: Altered mental status. HPI Narrative GARCÍA BURROWS, is a 71 F who presents to the emergency room due to altered mental status. Per nursing facility, patient is typically alert and oriented x3 and is now only alert and oriented x2. Patient was discharged this morning following treatment for hypoxic respiratory failure secondary to CHF and UTI. Patient mildly drowsy this morning however arousable to voice. Her gabapentin and tramadol were held. She had no acute neurologic symptoms or focal deficits at time of discharge. Patient alert to self and place when examined in the emergency room. She is moving all extremities. She has difficulty following commands and is unable to carry a conversation appropriately. She has a past medical history of chronic heart failure with preserved ejection fraction, severe pulmonary hypertension, chronic asthma, type 2 diabetes mellitus, hypertension, hyperlipidemia, chronic debility, depression. [facility] Medical History Anemia Depression Essential hypertension Femur fracture, left GERD (gastroesophageal reflux disease) Hyperlipidemia Mitral stenosis Non-rheumatic mitral valve stenosis Nonrheumatic aortic (valve) stenosis Nonrheumatic aortic (valve) stenosis CHIDI (obstructive sleep apnea) Other secondary pulmonary hypertension Pulmonary hypertension Type 2 diabetes mellitus Home Medications cholecalciferol (vitamin D3) 50 mcg (2,000 unit) capsule 2,000 unit PO DAILY SUPPLEMENT 10/07/18 [History Last Taken 01/15/22] atorvastatin 20 mg tablet 20 mg PO QHS CHOLESTEROL 05/24/20 [History Last Taken 01/14/22] gabapentin 300 mg capsule 300 mg PO BID Nerve Pain 05/24/20 [History Last Taken 01/15/22] metformin 500 mg tablet 500 mg PO BID DM 11/15/20 [History Last Taken 01/15/22] ferrous sulfate 325 mg (65 mg iron) tablet,delayed release 325 mg PO DAILY SUPPLEMENT 01/10/21 [History Last Taken 01/15/22] tramadol 50 mg tablet 50 mg PO 4X/DAY PAIN 01/10/21 [History Last Taken 01/15/22] famotidine 20 mg tablet 20 mg PO QHS GERD 01/11/21 [History Last Taken 01/14/22] apixaban 5 mg tablet (Eliquis) 5 mg PO BID AFIB 03/09/21 [History Last Taken ] escitalopram oxalate 5 mg tablet (Lexapro) 5 mg PO DAILY DEPRESSION 07/24/21 [History Last Taken 01/15/22] pilocarpine HCl 5 mg tablet 5 mg PO TIDCM DRY MOUTH 07/24/21 [History Last Taken 01/15/22] polyethylene glycol 3350 17 gram/dose oral powder (Miralax) 17 g PO DAILY CONSTIPATION 09/12/21 [History Last Taken 01/15/22] acetaminophen 325 mg tablet 650 mg PO TID PAIN AND FEVER 01/15/22 [History Last Taken 01/15/22] albuterol sulfate 90 mcg/actuation aerosol inhaler 2 puff inhalation Q6H PRN sob 01/15/22 [History Last Taken Unknown] aspirin 81 mg tablet,delayed release (Adult Low Dose Aspirin) 81 mg PO DAILY HEART HEALTH 01/15/22 [History Last Taken 01/15/22] biotin 5 mg capsule 5 mg PO DAILY HAIR SKIN AND NAILS 01/15/22 [History Last Taken 01/15/22] bisacodyl 10 mg rectal suppository 10 mg MA DAILY PRN Constipation 01/15/22 [History Last Taken 01/12/22] cetirizine 10 mg tablet (Zyrtec) 10 mg PO QHS ALLERGIES 01/15/22 [History Last Taken 01/14/22] magnesium oxide 400 mg PO DAILY SUPPLEMENT 01/15/22 [History Last Taken 01/15/22] multivitamin 1 tab PO DAILY SUPPLEMENT 01/15/22 [History Last Taken 01/15/22] oxybutynin chloride 15 mg tablet,extended release 24 hr 15 mg PO DAILY BLADDER 01/15/22 [History Last Taken 01/15/22] potassium chloride 20 mEq tablet,extended release 20 meq PO DAILY SUPPLEMENT 01/15/22 [History Last Taken 01/15/22] sennosides 8.6 mg tablet (senna) 8.6 mg PO BID CONSTIPATION 01/15/22 [History Last Taken 01/15/22] cephalexin 500 mg capsule 500 mg PO Q12 4 days #8 caps 01/19/22 [Rx Last Taken Unknown] metoprolol tartrate 25 mg tablet 12.5 mg PO BID #0 tabs 01/19/22 [Rx Last Taken Unknown] mupirocin 2 % topical ointment 1 applic topical BID #0 grams 01/19/22 [Rx Last Taken Unknown] Allergy/AdvReac Type Severity Reaction Status Date / Time lisinopril AdvReac Intermediate Unknown Verified 01/19/22 16:36 penicillin G AdvReac Intermediate Unknown Verified 01/19/22 16:36 exenatide [From Byetta] AdvReac Unknown Unknown Verified 01/19/22 16:36 Family History (Reviewed 09/12/21 @ 08:17 by Eun Feng BUILDING MAINTENANCE SUPERVISOR, BUILDING MAINTENANCE SUPERVISOR-C) Sister CAD (coronary artery disease) Hx of CABG Family History unable to obtain unable to obtain (Due to altered mental status) Surgical History (Reviewed 01/19/22 @ 17:35 by Amanda Shepard BUILDING MAINTENANCE SUPERVISOR, BUILDING MAINTENANCE SUPERVISOR-C) History of cholecystectomy History of dilatation and curettage History of hernia repair History of left heart catheterization (LHC) (~12/12/20) History of partial colectomy History of total left knee replacement Social History (Reviewed 01/19/22 @ 17:35 by Amanda Shepard BUILDING MAINTENANCE SUPERVISOR, BUILDING MAINTENANCE SUPERVISOR-C) housing: senior care number of children: 0 current occupational status: retired Smoking Status: Former smoker alcohol intake: never additional social history: single ROS Review of Systems ROS Unobtainable: due to mental status Vital Signs Vital Signs Vital Signs: 01/19/22 16:32 Temperature 96.7 F L Temperature Source Temporal Pulse Rate 102 H Respiratory Rate 14 Blood Pressure 96/74 Blood Pressure Mean 81 Pulse Ox 99 Oxygen Delivery Method Nasal Cannula Oxygen Flow Rate (L/min) 2 Weight Weight: 221 lb 12.56 oz Body Mass Index (BMI) 38.0 Physical Exam Const Orientation / Consciousness: oriented to person and oriented to place Exam Limitations: altered mental status Nutritional Appearance: obese HEENT normocephalic and moist oral mucous membranes Eyes PERRL, EOMs intact bilaterally and conjunctivae normal Neck no lymphadenopathy Resp clear to auscultation bilaterally Cardio no murmurs Cardio Narrative: a.fib Peripheral Pulses: pulses 2+ throughout GI normal to inspection, nondistended, normoactive bowel sounds, non-tender and non-distended Extremity normal to inspection General Extremity: edema bilateral upper extremity and lower extremity Skin no rashes or lesions noted Lesions: no lesions Rashes: no rashes Trauma: no lacerations or abrasions Neuro CN's II-XII intact bilaterally, no focal motor deficits, no sensory deficits noted and deep tendon reflexes 2+ bilaterally Psych mental status grossly normal and affect normal Assessment & Plan Assessment/Plan (1) Altered mental status: PLAN: Plan 1.? Altered mental status-likely metabolic etiology. Obtain ABG. Brain CT. Stable on baseline home oxygen. Lab work this a.m. unremarkable. Vital signs stable. Hold hold sedating regimen including gabapentin and tramadol. 2. Chronic heart failure with preserved ejection fraction-echocardiogram 01/16/22 with EF 65%, mild to moderate mitral valve insufficiency, moderately severe tricuspid valve insufficiency, right ventricular systolic pressure estimated to be 58 mmHg.? Recently diuresed with Lasix drip.? Continue Lasix 40 mg twice daily.? Balbir wraps bilateral lower extremities. Strict I&O. Daily weight. 3. Chronic hypoxic respiratory failure secondary to acute on chronic heart failure with preserved ejection fraction, complicated by underlying severe pulmonary hypertension-on 2 L nasal cannula at baseline.? Currently on baseline home O2 requirements. 4. Acute E. coli/Klebsiella cystitis-continue Keflex to complete course. 5. Left anterior barrientos stasis ulcer-MRSA on culture.Topical Bactroban X1 Week.? Continue dressing changes as ordered. 6. Severe pulmonary hypertension-continue follow-up with pulmonary medicine. 7. Chronic asthma-no exacerbation.? 8. Type 2 diabetes mellitus-continue home regimen. 9. Hypertension-stable, continue current regimen. 10. Hyperlipidemia-continue statin. 11. Chronic debility-PT/OT.? Resides at SNF.? Not motivated to work with therapy. 12. Depression-on Lexapro. DVT prophylaxis-Eliquis This patient was seen by ROCHELLE Bower under the supervision of Dr. Finch. Time spent examining patient, reviewing data and subsequent management of care: 24 minutes Documented by User: Dr. Blas Finch, DO 01/19/22 17:50 [facility] Medical History Anemia Depression Essential hypertension Femur fracture, left GERD (gastroesophageal reflux disease) Hyperlipidemia Mitral stenosis Non-rheumatic mitral valve stenosis Nonrheumatic aortic (valve) stenosis Nonrheumatic aortic (valve) stenosis CHIDI (obstructive sleep apnea) Other secondary pulmonary hypertension Pulmonary hypertension Type 2 diabetes mellitus Home Medications cholecalciferol (vitamin D3) 50 mcg (2,000 unit) capsule 2,000 unit PO DAILY SUPPLEMENT 10/07/18 [History Last Taken 01/15/22] atorvastatin 20 mg tablet 20 mg PO QHS CHOLESTEROL 05/24/20 [History Last Taken 01/14/22] gabapentin 300 mg capsule 300 mg PO BID Nerve Pain 05/24/20 [History Last Taken 01/15/22] metformin 500 mg tablet 500 mg PO BID DM 11/15/20 [History Last Taken 01/15/22] ferrous sulfate 325 mg (65 mg iron) tablet,delayed release 325 mg PO DAILY SUPPLEMENT 01/10/21 [History Last Taken 01/15/22] tramadol 50 mg tablet 50 mg PO 4X/DAY PAIN 01/10/21 [History Last Taken 01/15/22] famotidine 20 mg tablet 20 mg PO QHS GERD 01/11/21 [History Last Taken 01/14/22] apixaban 5 mg tablet (Eliquis) 5 mg PO BID AFIB 03/09/21 [History Last Taken 01/15/22] escitalopram oxalate 5 mg tablet (Lexapro) 5 mg PO DAILY DEPRESSION 07/24/21 [History Last Taken 01/15/22] pilocarpine HCl 5 mg tablet 5 mg PO TIDCM DRY MOUTH 07/24/21 [History Last Taken 01/15/22] polyethylene glycol 3350 17 gram/dose oral powder (Miralax) 17 g PO DAILY CONSTIPATION 09/12/21 [History Last Taken 01/15/22] acetaminophen 325 mg tablet 650 mg PO TID PAIN AND FEVER 01/15/22 [History Last Taken 01/15/22] albuterol sulfate 90 mcg/actuation aerosol inhaler 2 puff inhalation Q6H PRN sob 01/15/22 [History Last Taken Unknown] aspirin 81 mg tablet,delayed release (Adult Low Dose Aspirin) 81 mg PO DAILY HEART HEALTH 01/15/22 [History Last Taken 01/15/22] biotin 5 mg capsule 5 mg PO DAILY HAIR SKIN AND NAILS 01/15/22 [History Last Taken 01/15/22] bisacodyl 10 mg rectal suppository 10 mg MA DAILY PRN Constipation 01/15/22 [History Last Taken 01/12/22] cetirizine 10 mg tablet (Zyrtec) 10 mg PO QHS ALLERGIES 01/15/22 [History Last Taken 01/14/22] magnesium oxide 400 mg PO DAILY SUPPLEMENT 01/15/22 [History Last Taken 01/15/22] multivitamin 1 tab PO DAILY SUPPLEMENT 01/15/22 [History Last Taken 01/15/22] oxybutynin chloride 15 mg tablet,extended release 24 hr 15 mg PO DAILY BLADDER 01/15/22 [History Last Taken 01/15/22] potassium chloride 20 mEq tablet,extended release 20 meq PO DAILY SUPPLEMENT 01/15/22 [History Last Taken 01/15/22] sennosides 8.6 mg tablet (senna) 8.6 mg PO BID CONSTIPATION 01/15/22 [History Last Taken 01/15/22] cephalexin 500 mg capsule 500 mg PO Q12 4 days #8 caps 01/19/22 [Rx Last Taken Unknown] metoprolol tartrate 25 mg tablet 12.5 mg PO BID #0 tabs 01/19/22 [Rx Last Taken Unknown] mupirocin 2 % topical ointment 1 applic topical BID #0 grams 01/19/22 [Rx Last Taken Unknown] Allergy/AdvReac Type Severity Reaction Status Date / Time lisinopril AdvReac Intermediate Unknown Verified 01/19/22 16:36 penicillin G AdvReac Intermediate Unknown Verified 01/19/22 16:36 exenatide [From Byetta] AdvReac Unknown Unknown Verified 01/19/22 16:36 Family History (Reviewed 09/12/21 @ 08:17 by Eun Feng BUILDING MAINTENANCE SUPERVISOR, BUILDING MAINTENANCE SUPERVISOR-C) Sister CAD (coronary artery disease) Hx of CABG Family History unable to obtain Surgical History History of cholecystectomy History of dilatation and curettage History of hernia repair History of left heart catheterization (LHC) (~12/12/20) History of partial colectomy History of total left knee replacement Social History (Reviewed 01/19/22 @ 17:35 by Amanda Devyn BUILDING MAINTENANCE SUPERVISOR, BUILDING MAINTENANCE SUPERVISOR-C) housing: senior care number of children: 0 current occupational status: retired Smoking Status: Former smoker alcohol intake: never additional social history: single Assessment & Plan Assessment/Plan (1) Altered mental status: Charges/Coding Addendum Addendum: Patient was seen in exam today independently of Amanda Shepard, she was sent back from the senior care where she resides today after being returned there from the hospital after a several day stay for congestive heart failure and urinary tract infection. According to the senior care, patient has been drowsy and somnolent. At the time of my dictation now, a complete work-up from the emergency room has not been completed, I think it best that she be kept here and placed in observation status and her medications adjusted, patient may need an MRI of the brain to verify that there is not something going on like hypoxic brain injury. On examination she appeared somnolent, she knows that she is in the hospital, she does not carry on a full conversation with this examiner however, she does follow some commands but does not follow other commands., she does not appear to be in any distress. Vital signs as documented. Skin warm and dry and without overt rashes. Neck without JVD, thyroid appears normal, trachea is midline, neck is supple. Lungs clear, normal air movement was noted. Heart exam notable for irregular rhythm, normal sounds and absence of murmurs, rubs or gallops. Abdomen unremarkable and without evidence of organomegaly, masses, or abdominal aortic enlargement, bowel sounds are present in all 4 quadrants, no abdominal tenderness was noted. Extremities nonedematous, no cyanosis was noted, no clubbing was noted. Neuro: Cranial nerves II through XII are grossly intact, no focal motor deficits were noted, sensation to light touch and pinprick is intact, motor exam 5/5 throughout. Psych: Patient is alert and oriented x3, she does not appear anxious or depressed, she does not appear agitated. Impression: #1 mental status change-etiology unclear at this point, patient will be placed in observation status on PCU, I will hold her gabapentin and Ultram at this time, patient may need further imaging studies such as an MRI and MRI of the brain if CT scan which has been ordered by the ER comes back unremarkable. #2 chronic hypoxic respiratory failure-patient is currently on 3 L in the emergency room, this was resetting in the hospital, pulse ox will be monitored #3 chronic atrial fibrillation-patient is currently on Eliquis, she is on rate limiting medications which will be continued #4 severe pulmonary hypertension-patient will be kept on oral Lasix #5 cystitis-patient will remain on oral Keflex #6 type 2 diabetes-blood sugars will be monitored, sliding scale insulin will be used if necessary I have reviewed Amanda Shepard's history and physical including her medical assessment and plan of care and with the above additions endorse it. Total clinical time spent by myself addressing the patient's medical issues, reviewing the data, and collaborating with the patient's care team: 50 minutes Visit Charges OBSV E&M: [id number] Initial observation care L3
--- NOTE | 2022-01-19 17:32 | CT_ITS ---
STUDY: CT BRAIN WITHOUT CONTRAST REASON FOR EXAM: Female, 71 years old. ams RADIATION DOSAGE (If Supplied By Facility): CTDIvol = ( 44.99 ) mGy, DLP = ( 1659.71 ) mGycm TECHNIQUE: Transaxial CT imaging of the brain was performed without administration of intravenous contrast material. Individualized dose optimization techniques were used for this CT. COMPARISON: 02/11/2020 CT head FINDINGS: Normal soft tissue structures. Normal calvarium. There is moderate cerebral atrophy with widening of the extra-axial spaces and ventricular dilatation. There are areas of decreased attenuation within the white matter tracts of the supratentorial brain, consistent with microvascular disease changes. Normal basal ganglia and thalami. Normal brainstem. Normal cerebellum. There is no intracranial hemorrhage. There are no findings of an acute ischemic infarction. Normal visualized paranasal sinuses. CT/Brain/Head without Contrast IMPRESSION: Similar senescent changes with no evidence of acute intracranial bleed, mass or ischemia. Electronically Signed: Juni Ochoa DO at 18:29 EDT ,
--- NOTE | 2022-01-19 17:33 | EKG12_ITS ---
Test Reason : ALT LOC Blood Pressure : / mmHG Vent. Rate : 087 BPM Atrial Rate : 000 BPM P-R Int : 000 ms QRS Dur : 072 ms QT Int : 314 ms P-R-T Axes : 000 -04 193 degrees QTc Int : 377 ms Atrial fibrillation Low voltage QRS Possible Anterolateral infarct (cited on or before 15-JAN-2022) Abnormal ECG Confirmed by EDWIN BLACK, QUINN ([id number]), film editor supervisor ALMA DELIA ESTRADA ([id number]) on 01/21/2022 11:07:02 AM Referred By: GABRIELA Confirmed By:QUINN PINEDA MD
--- NOTE | 2022-01-19 18:05 | RAD_ITS ---
STUDY: X-RAY CHEST REASON FOR EXAM: Female, 71 years old. altered mental status TECHNIQUE: 01/15/2022 COMPARISON: None. FINDINGS: Right hemidiaphragm eventration and basilar atelectasis is present. Small effusion and superimposed airspace disease overlying the right lower lobe is not excluded. There is no demonstrated pleural abnormality. Normal size heart. Normal mediastinum and bala. Normal visualized pulmonary arteries. There is atherosclerotic calcification of the aortic arch with tortuosity. Normal visualized thoracic spine. Normal visualized ribs, clavicles, and shoulders. There is no demonstrated abnormality of the visualized soft tissue structures of the upper abdomen. RAD/Chest 1 View (Portable) IMPRESSION: Right hemidiaphragm eventration with likely atelectasis with mild superimposed airspace disease and small effusion not excluded. Electronically Signed: Juni Ochoa DO at 18:32 EDT ,
--- NOTE | 2022-01-19 18:15 | CM.ED ---
Addendum entered by Ann Marshall 01/19/22 22:49: Green sheet is on pt's chart. Original Note: Social Work Note SW updated that pt is back at [facility]. SW reviewed chart. Pt is from [facility] and discharged back to [facility] today. Per previous notes, pt is snf resident and a pre-cert is not needed for pt to return. Plan: Return to [facility] once medically cleared Ann Marshall HIGH SCHOOL TEACHER, ELECTRICAL ENGINEER MEP
[2022-01-19 18:23] LABS: Mucous, Urine 0 SEEN /hpf (<or=2+); Squamous Epithelial Cells - UA 0 SEEN /hpf (5-10)
[2022-01-19 18:25] LABS: Color, Urine Yellow (Yellow); Glucose, Dipstick Normal (Normal); Ketone-Dipstick 15 mg/dl (Negative); Leukocyte Esterase-Dipstick 500 /ul (Negative); Nitrite-Dipstick Positive (Negative); Occult Blood-Urine 50 /ul (Negative); Protein-Dipstick Negative (Negative); Urine Bilirubin Dipstick Negative (Negative); Urine Clarity Clear (Clear); Urine Urobilinogen Normal (Normal)
[2022-01-19 18:41] LABS: Red Blood Cells-Urine 0-5 SEEN /hpf (0-5); White Blood Cells 50-100 SEEN /hpf (0-5)
[2022-01-19 18:42] LABS: Bacteria 2+ /hpf (None Seen)
[2022-01-19 18:51] LABS: Allen Test Positive; Base Excess 14 mmol/L (-2 to +2); Bicarbonate 36.6 mmol/L (22-26); Blood Gas Specimen Type ART; O2 Delivery Device Cannula; PO2 110 mmHG (75-100); SITE R Brach; SO2 99 % (95-99); Total Carbon Dioxide 38 mmol/L; pH 7.56 (7.35-7.45)
[2022-01-19 18:53] LABS: Absolute Lymphocyte Count 1.25 X10^3/uL (0.83-4.51); Basophil# 0.03 X10^3/uL; Basophil% 0.3 % (0-1); Hematocrit 41.2 % (37-47); Hemoglobin 12.9 g/dL (12.0-15.0); Lymphocyte # 1.25 X10^3/ul (0.83-4.51); Lymphocyte % 12.2 % (19-41); Mean Corp Hgb Conc 31.3 g/dL (32-36); Mean Corpuscular Volume 95.8 fL (81-99); Mean Platelet Vol. 11.6 fl (6.2-12.0); Monocyte# 0.83 X10^3/uL; Monocyte% 8.1 % (0-10); NRBC Flagged by Analyzer 0 % (0-5); Neutrophil # 8.04 X10^3/uL (2.7-7.7); Neutrophil % 78.8 % (47-70); POSITIVE MORPHOLOGY YES; Platelet Count 221 K/mm3 (150-450); RBC Distribution Width SD 70.7 fl (35.1-43.9); White Blood Count 10.2 K/mm3 (4.4-11.0)
[2022-01-19 18:56] LABS: Differential Indicated SCAN CRITERIA MET
[2022-01-19 19:11] LABS: AST(SGOT) 60 U/L (15-37); Alanine Aminotransfer ALT/SGPT 39 U/L (13-56); Albumin, Serum 2.2 g/dL (3.2-5.0); Alkaline Phosphatase 100 U/L (45-117); Anion Gap 4 (5-15); BUN 23 mg/dL (7-18); BUN/Creat Ratio 33.2 RATIO (10-20); Bilirubin, Direct 0.14 mg/dL (0.00-0.30); Calcium,Total 8.4 mg/dL (8.5-10.1); Chloride 94 mmol/L (98-107); Creatinine, Serum 0.69 mg/dL (0.55-1.02); EST Glomerular Filtration Rate 88 mL/min (>60); Est Glom Filt Rate - Afr Amer 107 mL/min (>60); Estimated Creatinine Clearance 43.27 ml/min; Globulin 3.4 g/dL (2.2-4.2); Glucose 133 mg/dL (74-106); Potassium 4.6 mmol/L (3.5-5.1); Protein, Total 5.6 g/dL (6.4-8.2); Sodium Level 141 mmol/L (136-145)
[2022-01-19 19:14] LABS: Ammonia < 10.0 umol/L (11-32)
[2022-01-19 19:24] LABS: Anisocytosis 2+; Differential Comment SCANNED; Macrocytosis 1+; Microcytosis 1+
[2022-01-19] MEDS: Ceftriaxone 1 GM/50 ML BAG IV (20:17)
--- NOTE | 2022-01-19 21:05 | CPS ---
Arterial blood gas drawn at 1840, results correlate with arterial blood.
[2022-01-19 22:20] LABS: Bedside Glucose 130 mg/dL (74-106)
[2022-01-19] MEDS: Mupirocin Ointment 22gm Tube 1 APPLIC TOPICAL (23:08)
[2022-01-20] VITALS (7 sets, daily range): BP systolic 117–129; BP diastolic 75–79; PULSE 78–99; RESP 16–18; TEMP 36.6–37.1; O2SAT 94–99
[2022-01-20 02:25] LABS: Bedside Glucose 104 mg/dL (74-106)
[2022-01-20 06:20] LABS: Absolute Lymphocyte Count 1.32 X10^3/uL (0.83-4.51); Absolute Neutrophil Count 6.3 X10^3/uL (2.0-7.7); Basophil# 0.02 X10^3/uL; Basophil% 0.2 % (0-1); Hematocrit 39.9 % (37-47); Hemoglobin 12.2 g/dL (12.0-15.0); Lymphocyte # 1.32 X10^3/ul (0.83-4.51); Lymphocyte % 15.7 % (19-41); Mean Corp Hgb Conc 30.6 g/dL (32-36); Mean Platelet Vol. 12.2 fl (6.2-12.0); Monocyte# 0.77 X10^3/uL; Monocyte% 9.1 % (0-10); NRBC Flagged by Analyzer 0 % (0-5); Neutrophil # 6.27 X10^3/uL (2.7-7.7); Neutrophil % 74.5 % (47-70); POSITIVE MORPHOLOGY YES; Platelet Count 204 K/mm3 (150-450); RBC Distribution Width CV 19.9 % (11.6-14.6); RBC Distribution Width SD 72.3 fl (35.1-43.9); Red Blood Count 4.07 M/mm3 (4.2-5.4); White Blood Count 8.4 K/mm3 (4.4-11.0)
[2022-01-20 06:42] LABS: Differential Indicated SCAN CRITERIA MET
[2022-01-20 06:51] LABS: Bedside Glucose 90 mg/dL (74-106)
[2022-01-20 06:57] LABS: ALB/GLOB Ratio 0.6 RATIO (0.9-2.4); AST(SGOT) 32 U/L (15-37); Alanine Aminotransfer ALT/SGPT 33 U/L (13-56); Albumin, Serum 1.9 g/dL (3.2-5.0); Alkaline Phosphatase 93 U/L (45-117); Anion Gap 5 (5-15); BUN 23 mg/dL (7-18); BUN/Creat Ratio 43.6 RATIO (10-20); Calcium,Total 8.2 mg/dL (8.5-10.1); Chloride 95 mmol/L (98-107); Creatinine, Serum 0.53 mg/dL (0.55-1.02); EST Glomerular Filtration Rate 121 mL/min (>60); Est Glom Filt Rate - Afr Amer 146 mL/min (>60); Estimated Creatinine Clearance 43.27 ml/min; Globulin 3.1 g/dL (2.2-4.2); Glucose 108 mg/dL (74-106); Potassium 3.4 mmol/L (3.5-5.1); Sodium Level 141 mmol/L (136-145)
--- NOTE | 2022-01-20 07:02 | MRI_ITS ---
EXAM: MR HEAD WITHOUT INTRAVENOUS CONTRAST CLINICAL INDICATION: Encephalopathy. TECHNIQUE: Multiplanar and multisequence MR images of the brain were obtained without intravenous contrast. This report was created using whoplusyou report generation technology. COMPARISON: MRI brain without contrast 07/20/2018. CT head without contrast 01/19/2022. FINDINGS: BRAIN AND EXTRA-AXIAL SPACES: Confluent white matter T2 FLAIR hyperintensity in both cerebral hemispheres are chronic white matter ischemic changes. No diffusion restriction to suspect acute or subacute ischemic infarct. T2 FLAIR hyperintensity in the pontine tegmentum is chronic white matter ischemic change. Small old linear cystic infarct in the right cerebellar hemisphere. No intra- or extra-axial hemorrhage. No intracranial mass or mass effect. Ventricles are appropriate for age. No hydrocephalus. Basal cisterns are patent. SELLA: Unremarkable. Normal sella turcica, pituitary gland, infundibular stalk, optic chiasm and hypothalamus. AUDITORY SYSTEM: Unremarkable. The internal auditory canals are patent. BONES/JOINTS: Small T1 and T2 dark intensity focus in the left dentate nucleus may represent amyloid angiopathy. No discrete lytic or blastic abnormalities. SINUSES: Unremarkable as visualized. Clear. MASTOID AIR CELLS: Unremarkable as visualized. Clear. ORBITS: Unremarkable as visualized. Both globes, extraocular muscles, optic nerves and retrobulbar fat appear unremarkable. VASCULATURE: Unremarkable as visualized. Normal flow voids in the major intracranial circulation. MRI/Brain without Contrast IMPRESSION: 1. No MRI evidence of acute or subacute ischemic infarct or acute intracranial abnormality. 2. Confluent chronic white matter ischemic changes in both cerebral hemispheres. 3. 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 4. Small amyloid angiopathy in the left dentate nucleus. Electronically Signed: Travis Guadarrama MD at 11:31 EDT ,
[2022-01-20 07:47] LABS: Anisocytosis RARE
[2022-01-20] MEDS: Mupirocin Ointment 22gm Tube 1 APPLIC TOPICAL (10:47)
[2022-01-20 12:05] LABS: Bedside Glucose 99 mg/dL (74-106)
--- NOTE | 2022-01-20 12:55 | TREXTCAR_ITS ---
Diet Diet Order/Speech Therapy: 01/20/22 11:03 Diet: Carb control Is pt able to select menu?: No Diet Comments: give oral meds Routine Orders/Code Status Enema Type: Fleetz Enema Frequency: Daily PRN Suppository Type: Dulcolax 10mg Suppository Frequency: Daily PRN O2 Liters per Minute: 2-3 O2 Frequency: Continuous Keep PO Greater than or Equal to (%): 90 Code Status: DNRCC-A (no intubation) Wound(s) left barrientos: Wound Type: Stasis Ulcer coccyx: Wound Type: Pressure Injury Therapies Physical Therapy: Eval and Treat Occupational Therapy: Eval and Treat Speech Therapy: Eval and Treat Problem/Diagnosis (1) Altered mental status: Status: Acute Code(s): R41.82 - Altered mental status, unspecified Allergies/Procedures Done in Hospital Allergies lisinopril Adverse Reaction (Intermediate, Verified 01/19/22 16:36) Unknown penicillin G Adverse Reaction (Intermediate, Verified 01/19/22 16:36) Unknown exenatide [From [place]] Adverse Reaction (Unknown, Verified 01/19/22 16:36) Unknown Procedures: None Type of Care/Length of Stay Estimated LOS: More Than 30 Days Type of Care Needed: Intermediate Rehab Potential: Fair Prognosis: Fair Additional Orders/Day of Discharge H&P will serve as current which was dated: 01/19/22 Day of Discharge: 01/20/22 Discharge Plan Admission Admit Date/Time: 01/19/22 17:34 Primary Reason for Your Visit: Altered mental status Attending Provider: Blas Finch Primary Care Provider: Imer Villanueva Instructions Additional Instructions / Restrictions: wash legs and feet daily with soap and water. pat dry. place Aquacel AG to the left lateral lower leg wound. cover with dry dressing and wrap with kerlix. apply LACI wraps from the base of the toes to just below the knees. change daily and prn. Discharge Orders/Prescriptions Prescriptions: New furosemide 40 mg Tablet 40 mg PO BIDLX Qty: 0 0RF Continued cholecalciferol (vitamin D3) 2,000 unit capsule 2,000 unit PO DAILY atorvastatin 20 mg tablet 20 mg PO QHS metformin 500 mg tablet 500 mg PO BID famotidine 20 mg tablet 20 mg PO QHS ferrous sulfate 325 mg (65 mg iron) tablet,delayed release (DR/EC) 325 mg PO DAILY polyethylene glycol 3350 [Miralax] 17 gram/dose powder 17 g PO DAILY Eliquis 5 mg Tablet 5 mg PO BID Label Comments: . pilocarpine HCl 5 mg tablet 5 mg PO TIDCM escitalopram oxalate [Lexapro] 5 mg Tablet 5 mg PO DAILY albuterol sulfate 90 mcg/actuation Hfa Aerosol Inhaler 2 puff INHALATION Q6H PRN (Reason: sob) multivitamin Tablet 1 tab PO DAILY sennosides [senna] 8.6 mg Tablet 8.6 mg PO BID oxybutynin chloride 15 mg tablet extended release 24hr 15 mg PO DAILY cetirizine [Zyrtec] 10 mg Tablet 10 mg PO QHS biotin 5 mg Capsule 5 mg PO DAILY bisacodyl 10 mg Suppository 10 mg MS DAILY PRN (Reason: Constipation) acetaminophen 325 MG tablet 650 mg PO TID aspirin [Adult Low Dose Aspirin] 81 mg tablet,delayed release (DR/EC) 81 mg PO DAILY potassium chloride 20 mEq tablet extended release 20 meq PO DAILY magnesium oxide 400 mg magnesium tablet 400 mg PO DAILY cephalexin 500 mg Capsule 500 mg PO Q12 4 Days Qty: 8 0RF mupirocin 2 % Ointment 1 applic topical BID Qty: 0 0RF Protocol: *Topical Application Instructions APPLICATION INSTRUCTIONS: Apply to left barrientos wound twice daily metoprolol tartrate 25 mg Tablet 12.5 mg PO BID Qty: 0 0RF Discontinued tramadol 50 mg tablet 50 mg PO 4X/DAY gabapentin 300 mg capsule 300 mg PO BID Label Comments: nerve pain Referrals / Follow Up: Prabhakar Matias MD [STAFF PHYSICIAN] - See Referral Note (As scheduled 02/05/2022) Dorota Hilton NP, NP-C [Nurse Practitioner] - See Referral Note (As scheduled 03/05/2022) Imer Villanueva [Primary Care Provider] - In 1 Week Disposition Disposition (needs filled in before D/C Order can be placed): Intermediate Facility
--- NOTE | 2022-01-20 13:09 | DS.PCM_ITS ---
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: left barrientos ulcer & sacral area Reason For Visit: ALTERED MENTAL STATUS Diagnosis Discharge Diagnosis (1) Altered mental status: Status: Acute Code(s): R41.82 - Altered mental status, unspecified Medications at Discharge Home Medications cholecalciferol (vitamin D3) 50 mcg (2,000 unit) capsule 2,000 unit PO DAILY SUPPLEMENT 10/07/18 atorvastatin 20 mg tablet 20 mg PO QHS CHOLESTEROL 05/24/20 metformin 500 mg tablet 500 mg PO BID DM 11/15/20 ferrous sulfate 325 mg (65 mg iron) tablet,delayed release 325 mg PO DAILY SUPPLEMENT 01/10/21 famotidine 20 mg tablet 20 mg PO QHS GERD 01/11/21 apixaban 5 mg tablet (Eliquis) 5 mg PO BID AFIB 03/09/21 escitalopram oxalate 5 mg tablet (Lexapro) 5 mg PO DAILY DEPRESSION 07/24/21 pilocarpine HCl 5 mg tablet 5 mg PO TIDCM DRY MOUTH 07/24/21 polyethylene glycol 3350 17 gram/dose oral powder (Miralax) 17 g PO DAILY CONSTIPATION 09/12/21 acetaminophen 325 mg tablet 650 mg PO TID PAIN AND FEVER 01/15/22 albuterol sulfate 90 mcg/actuation aerosol inhaler 2 puff inhalation Q6H PRN sob 01/15/22 aspirin 81 mg tablet,delayed release (Adult Low Dose Aspirin) 81 mg PO DAILY HEART HEALTH 01/15/22 biotin 5 mg capsule 5 mg PO DAILY HAIR SKIN AND NAILS 01/15/22 bisacodyl 10 mg rectal suppository 10 mg DC DAILY PRN Constipation 01/15/22 cetirizine 10 mg tablet (Zyrtec) 10 mg PO QHS ALLERGIES 01/15/22 magnesium oxide 400 mg PO DAILY SUPPLEMENT 01/15/22 multivitamin 1 tab PO DAILY SUPPLEMENT 01/15/22 oxybutynin chloride 15 mg tablet,extended release 24 hr 15 mg PO DAILY BLADDER 01/15/22 potassium chloride 20 mEq tablet,extended release 20 meq PO DAILY SUPPLEMENT 01/15/22 sennosides 8.6 mg tablet (senna) 8.6 mg PO BID CONSTIPATION 01/15/22 cephalexin 500 mg capsule 500 mg PO Q12 4 days #8 caps 01/19/22 metoprolol tartrate 25 mg tablet 12.5 mg PO BID #0 tabs 01/19/22 mupirocin 2 % topical ointment 1 applic topical BID #0 grams 01/19/22 furosemide 40 mg tablet 40 mg PO BIDLX #0 tabs 01/20/22 Hospital Course Operations None Procedures None Summary of Care Provided Hospital Course: Patient is a 71-year-old female admitted 01/19/2022 due to altered mental status. 1.? Altered mental status-unclear etiology. Possibly behavioral? Brain CT and MRI brain unremarkable. No infectious or metabolic etiology. ABGs unremarkable. Recommend ongoing outpatient evaluation at [facility]. 2. Chronic heart failure with preserved ejection fraction-echocardiogram 01/16/22 with EF 65%, mild to moderate mitral valve insufficiency, moderately severe tricuspid valve insufficiency, right ventricular systolic pressure estimated to be 58 mmHg.? Recently diuresed with Lasix drip.? Continue Lasix 40 mg twice daily.? Balbir wraps bilateral lower extremities.? Strict I&O.? Daily weight. 3. Chronic hypoxic respiratory failure secondary to acute on chronic heart failure with preserved ejection fraction, complicated by underlying severe pulmonary hypertension-on 2 L nasal cannula at baseline.? Currently on baseline home O2 requirements. 4. Acute E. coli/Klebsiella cystitis-continue Keflex to complete course. 5. Left anterior barrientos stasis ulcer-MRSA on culture.Topical Bactroban X1 Week.? Continue dressing changes as ordered. 6. Severe pulmonary hypertension-continue follow-up with pulmonary medicine. 7. Chronic asthma-no exacerbation.? 8. Type 2 diabetes mellitus-continue home regimen. 9. Hypertension-stable, continue current regimen. 10. Hyperlipidemia-continue statin. 11. Chronic debility-PT/OT.? Resides at SNF.? Not motivated to work with therapy. 12. Depression-on Lexapro. Physical Exam Const Orientation / Consciousness: oriented to person and oriented to place Exam Limitations: Intermittently having difficulty following commands, appears behavioral Nutritional Appearance: obese HEENT normocephalic and moist oral mucous membranes Eyes PERRL, EOMs intact bilaterally and conjunctivae normal Neck no lymphadenopathy Resp clear to auscultation bilaterally Cardio no murmurs Cardio Narrative: a.fib Peripheral Pulses: pulses 2+ throughout GI normal to inspection, nondistended, normoactive bowel sounds, non-tender and non-distended Extremity normal to inspection General Extremity: edema bilateral upper extremity and lower extremity Skin no rashes or lesions noted Lesions: no lesions Rashes: no rashes Trauma: no lacerations or abrasions Neuro CN's II-XII intact bilaterally, no focal motor deficits, no sensory deficits noted and deep tendon reflexes 2+ bilaterally Psych mental status grossly normal and affect normal Patient seen and examined prior to discharge. Physical assessment as noted above. Patient is stable for discharge with follow up recommendations as noted above. This patient was seen by ROCHELLE Bower under the supervision of Dr. Finch. Time spent examining patient, reviewing data and subsequent management of care: 22 minutes Weight / BMI Weight Weight: 200 lb 6.403 oz Body Mass Index (BMI) 34.4 ABG / Lab / Microbiology Data Result Diagrams: 01/20/22 05:25 01/20/22 05:25 Laboratory: Laboratory Results - last 24 hr 01/19/22 18:15: Urine Color Yellow, Urine Clarity Clear, Urine pH 6.0, Ur Specific [place] 1.020, Urine Protein Negative, Urine Glucose (UA) Normal, Urine Ketones 15 H, Urine Occult Blood 50 H, Urine Nitrite Positive H, Urine Bilirubin Negative, Urine Urobilinogen Normal, Ur Leukocyte Esterase 500 H, Urine RBC 0-5 SEEN, Urine WBC 50-100 SEEN, Ur Squamous Epith Cells 0 SEEN, Urine Bacteria 2+, Urine Mucus 0 SEEN 01/19/22 18:45: WBC 10.2, RBC 4.30, Hgb 12.9, Hct 41.2, MCV 95.8, MCH 30.0, MCHC 31.3 L, RDW Std Deviation 70.7 H, RDW Coeff of Merly 20.0 H, Plt Count 221, MPV 11.6, Immature Gran % (Auto) 0.600, Neut % (Auto) 78.8 H, Lymph % (Auto) 12.2 L, Pettis % (Auto) 8.1, Eos % (Auto) 0.0, Baso % (Auto) 0.3, Absolute Neuts (auto) 8.0 H, Absolute Lymphs (auto) 1.25, Nucleated RBC % 0, Differential Comment SCANNED, Anisocytosis 2+, Microcytosis 1+, Macrocytosis 1+ 01/19/22 18:45: Sodium 141, Potassium 4.6, Chloride 94 L, Carbon Dioxide 43.0 H, Anion Gap 4 L, BUN 23 H, Creatinine 0.69, Estim Creat Clear Calc 43.27, Est GFR (MDRD) Af Amer 107, Est GFR (MDRD) Non-Af 88, BUN/Creatinine Ratio 33.2 H, Glucose 133 H, Calcium 8.4 L, Total Bilirubin 0.70, Direct Bilirubin 0.14, AST 60 H, ALT 39, Alkaline Phosphatase 100, Total Protein 5.6 L, Albumin 2.2 L, Globulin 3.4 01/19/22 18:45: Ammonia < 10.0 L 01/19/22 21:17: POC Glucose 130 H 01/20/22 01:46: POC Glucose 104 01/20/22 05:25: WBC 8.4, RBC 4.07 L, Hgb 12.2, Hct 39.9, MCV 98.0, MCH 30.0, MCHC 30.6 L, RDW Std Deviation 72.3 H, RDW Coeff of Merly 19.9 H, Plt Count 204, MPV 12.2 H, Immature Gran % (Auto) 0.500, Neut % (Auto) 74.5 H, Lymph % (Auto) 15.7 L, Pettis % (Auto) 9.1, Eos % (Auto) 0.0, Baso % (Auto) 0.2, Absolute Neuts (auto) 6.3, Absolute Lymphs (auto) 1.32, Nucleated RBC % 0, Anisocytosis RARE 01/20/22 05:25: Sodium 141, Potassium 3.4 L, Chloride 95 L, Carbon Dioxide 41.0 H, Anion Gap 5, BUN 23 H, Creatinine 0.53 L, Estim Creat Clear Calc 43.27, Est GFR (MDRD) Af Amer 146, Est GFR (MDRD) Non-Af 121, BUN/Creatinine Ratio 43.6 H, Glucose 108 H, Calcium 8.2 L, Total Bilirubin 0.60, AST 32, ALT 33, Alkaline Phosphatase 93, Total Protein 5.0 L, Albumin 1.9 L, Globulin 3.1, Albumi n/Globulin Ratio 0.6 L 01/20/22 06:32: POC Glucose 90 01/20/22 11:46: POC Glucose 99 Microbiology: Microbiology 01/19/22 18:15 Urine Catheter - Catheter Urine Culture - 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 Electronically Signed: Juni Ochoa DO at 18:29 EDT , Chest X-Ray 01/19/22 18:05 IMPRESSION: Right hemidiaphragm eventration with likely atelectasis with mild superimposed airspace disease and small effusion not excluded. Electronically Signed: Juni Ochoa DO at 18:32 EDT , Brain MRI 01/20/22 07:02 IMPRESSION: 1. No MRI evidence of acute or subacute ischemic infarct or acute intracranial abnormality. 2. Confluent chronic white matter ischemic changes in both cerebral hemispheres. 3. 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 4. Small amyloid angiopathy in the left dentate nucleus. Electronically Signed: Travis Guadarrama MD at 11:31 EDT , Meaningful Use Info Meaningful Use Diagnoses (Choose all that apply): None applicable Discharge Plan Admission Admit Date/Time: 01/19/22 17:34 Primary Reason for Your Visit: Altered mental status Attending Provider: Blas Finch Primary Care Provider: Imer Villanueva Instructions Additional Instructions / Restrictions: wash legs and feet daily with soap and water. pat dry. place Aquacel AG to the left lateral lower leg wound. cover with dry dressing and wrap with kerlix. apply BALBIR wraps from the base of the toes to just below the knees. change daily and prn. Discharge Orders/Prescriptions Prescriptions: New furosemide 40 mg Tablet 40 mg PO BIDLX Qty: 0 0RF Continued cholecalciferol (vitamin D3) 2,000 unit capsule 2,000 unit PO DAILY atorvastatin 20 mg tablet 20 mg PO QHS metformin 500 mg tablet 500 mg PO BID famotidine 20 mg tablet 20 mg PO QHS ferrous sulfate 325 mg (65 mg iron) tablet,delayed release (DR/EC) 325 mg PO DAILY polyethylene glycol 3350 [Miralax] 17 gram/dose powder 17 g PO DAILY Eliquis 5 mg Tablet 5 mg PO BID Label Comments: . pilocarpine HCl 5 mg tablet 5 mg PO TIDCM escitalopram oxalate [Lexapro] 5 mg Tablet 5 mg PO DAILY albuterol sulfate 90 mcg/actuation Hfa Aerosol Inhaler 2 puff INHALATION Q6H PRN (Reason: sob) multivitamin Tablet 1 tab PO DAILY sennosides [senna] 8.6 mg Tablet 8.6 mg PO BID oxybutynin chloride 15 mg tablet extended release 24hr 15 mg PO DAILY cetirizine [Zyrtec] 10 mg Tablet 10 mg PO QHS biotin 5 mg Capsule 5 mg PO DAILY bisacodyl 10 mg Suppository 10 mg DC DAILY PRN (Reason: Constipation) acetaminophen 325 MG tablet 650 mg PO TID aspirin [Adult Low Dose Aspirin] 81 mg tablet,delayed release (DR/EC) 81 mg PO DAILY potassium chloride 20 mEq tablet extended release 20 meq PO DAILY magnesium oxide 400 mg magnesium tablet 400 mg PO DAILY cephalexin 500 mg Capsule 500 mg PO Q12 4 Days Qty: 8 0RF mupirocin 2 % Ointment 1 applic topical BID Qty: 0 0RF Protocol: *Topical Application Instructions APPLICATION INSTRUCTIONS: Apply to left barrientos wound twice daily metoprolol tartrate 25 mg Tablet 12.5 mg PO BID Qty: 0 0RF Discontinued tramadol 50 mg tablet 50 mg PO 4X/DAY gabapentin 300 mg capsule 300 mg PO BID Label Comments: nerve pain Referrals / Follow Up: Prabhakar Matias MD [STAFF PHYSICIAN] - See Referral Note (As scheduled 02/05/2022) Dorota Hilton DECK SPECIALIST, DECK SPECIALIST-C [Nurse Practitioner] - See Referral Note (As scheduled 03/05/2022) Imer Villanueva [Primary Care Provider] - In 1 Week Disposition Disposition (needs filled in before D/C Order can be placed): [facility] Facility Documented by User: Dr. Blas Finch DO 01/20/22 14:01 Providers Date of Admission: 01/19/22 Reason For Visit: ALTERED MENTAL STATUS Diagnosis Discharge Diagnosis (1) Altered mental status: Status: Acute Code(s): R41.82 - Altered mental status, unspecified Medications at Discharge Home Medications cholecalciferol (vitamin D3) 50 mcg (2,000 unit) capsule 2,000 unit PO DAILY SUPPLEMENT 10/07/18 atorvastatin 20 mg tablet 20 mg PO QHS CHOLESTEROL 05/24/20 metformin 500 mg tablet 500 mg PO BID DM 11/15/20 ferrous sulfate 325 mg (65 mg iron) tablet,delayed release 325 mg PO DAILY SUPPLEMENT 01/10/21 famotidine 20 mg tablet 20 mg PO QHS GERD 01/11/21 apixaban 5 mg tablet (Eliquis) 5 mg PO BID AFIB 03/09/21 escitalopram oxalate 5 mg tablet (Lexapro) 5 mg PO DAILY DEPRESSION 07/24/21 pilocarpine HCl 5 mg tablet 5 mg PO TIDCM DRY MOUTH 07/24/21 polyethylene glycol 3350 17 gram/dose oral powder (Miralax) 17 g PO DAILY CONS TIPATION 09/12/21 acetaminophen 325 mg tablet 650 mg PO TID PAIN AND FEVER 01/15/22 albuterol sulfate 90 mcg/actuation aerosol inhaler 2 puff inhalation Q6H PRN sob 01/15/22 aspirin 81 mg tablet,delayed release (Adult Low Dose Aspirin) 81 mg PO DAILY HEART HEALTH 01/15/22 biotin 5 mg capsule 5 mg PO DAILY HAIR SKIN AND NAILS 01/15/22 bisacodyl 10 mg rectal suppository 10 mg DC DAILY PRN Constipation 01/15/22 cetirizine 10 mg tablet (Zyrtec) 10 mg PO QHS ALLERGIES 01/15/22 magnesium oxide 400 mg PO DAILY SUPPLEMENT 01/15/22 multivitamin 1 tab PO DAILY SUPPLEMENT 01/15/22 oxybutynin chloride 15 mg tablet,extended release 24 hr 15 mg PO DAILY BLADDER 01/15/22 potassium chloride 20 mEq tablet,extended release 20 meq PO DAILY SUPPLEMENT 01/15/22 sennosides 8.6 mg tablet (senna) 8.6 mg PO BID CONSTIPATION 01/15/22 cephalexin 500 mg capsule 500 mg PO Q12 4 days #8 caps 01/19/22 metoprolol tartrate 25 mg tablet 12.5 mg PO BID #0 tabs 01/19/22 mupirocin 2 % topical ointment 1 applic topical BID #0 grams 01/19/22 furosemide 40 mg tablet 40 mg PO BIDLX #0 tabs 01/20/22 ABG / Lab / Microbiology Data Result Diagrams: 01/20/22 05:25 01/20/22 05:25 Discharge Plan Admission Admit Date/Time: 01/19/22 17:34 Primary Reason for Your Visit: Altered mental status Attending Provider: Blas Finch Primary Care Provider: Imer Villanueva Instructions Additional Instructions / Restrictions: wash legs and feet daily with soap and water. pat dry. place Aquacel AG to the left lateral lower leg wound. cover with dry dressing and wrap with kerlix. apply BALBIR wraps from the base of the toes to just below the knees. change daily and prn. Discharge Orders/Prescriptions Prescriptions: New furosemide 40 mg Tablet 40 mg PO BIDLX Qty: 0 0RF Continued cholecalciferol (vitamin D3) 2,000 unit capsule 2,000 unit PO DAILY atorvastatin 20 mg tablet 20 mg PO QHS metformin 500 mg tablet 500 mg PO BID famotidine 20 mg tablet 20 mg PO QHS ferrous sulfate 325 mg (65 mg iron) tablet,delayed release (DR/EC) 325 mg PO DAILY polyethylene glycol 3350 [Miralax] 17 gram/dose powder 17 g PO DAILY Eliquis 5 mg Tablet 5 mg PO BID Label Comments: . pilocarpine HCl 5 mg tablet 5 mg PO TIDCM escitalopram oxalate [Lexapro] 5 mg Tablet 5 mg PO DAILY albuterol sulfate 90 mcg/actuation Hfa Aerosol Inhaler 2 puff INHALATION Q6H PRN (Reason: sob) multivitamin Tablet 1 tab PO DAILY sennosides [senna] 8.6 mg Tablet 8.6 mg PO BID oxybutynin chloride 15 mg tablet extended release 24hr 15 mg PO DAILY cetirizine [Zyrtec] 10 mg Tablet 10 mg PO QHS biotin 5 mg Capsule 5 mg PO DAILY bisacodyl 10 mg Suppository 10 mg DC DAILY PRN (Reason: Constipation) acetaminophen 325 MG tablet 650 mg PO TID aspirin [Adult Low Dose Aspirin] 81 mg tablet,delayed release (DR/EC) 81 mg PO DAILY potassium chloride 20 mEq tablet extended release 20 meq PO DAILY magnesium oxide 400 mg magnesium tablet 400 mg PO DAILY cephalexin 500 mg Capsule 500 mg PO Q12 4 Days Qty: 8 0RF mupirocin 2 % Ointment 1 applic topical BID Qty: 0 0RF Protocol: *Topical Application Instructions APPLICATION INSTRUCTIONS: Apply to left barrientos wound twice daily metoprolol tartrate 25 mg Tablet 12.5 mg PO BID Qty: 0 0RF Discontinued tramadol 50 mg tablet 50 mg PO 4X/DAY gabapentin 300 mg capsule 300 mg PO BID Label Comments: nerve pain Referrals / Follow Up: Prabhakar Matias MD [STAFF PHYSICIAN] - See Referral Note (As scheduled 02/05/2022) Dorota Hilton NP, DECK SPECIALIST-C [Nurse Practitioner] - See Referral Note (As scheduled 03/05/2022) Imer Villanueva [Primary Care Provider] - In 1 Week Disposition Disposition (needs filled in before D/C Order can be placed): [facility] Facility Charges/Coding Addendum Addendum: Patient was seen and examined today independently of Amanda Shepard, she had been [facility] due to [facility]argy and somnolence, they felt patient had a mental status change at the [facility]iary. Work-up in the emergency room revealed no acute process, patient also had a CT of the brain which showed no acute pathology. Patient was placed in observation status on PCU, her narcotics and gabapentin were stopped, patient did remain lethargic but did awaken to verbal stimulation and replied appropriately at times. Labs remained unremarkable for the most part (potassium was slightly low at 3.4) and patient had an MRI of the brain which showed no acute pathology. On 01/20/2022, patient was seen and examined: On examination she appeared lethargic and older than her stated age, she did respond to some verbal commands, she does not appear to be in any distress. Vital signs as documented. Skin warm and dry and without overt rashes. Neck without JVD, thyroid appears normal, trachea is midline, neck is supple. Lungs clear, normal air movement was noted. Heart exam notable for irregular rhythm, normal sounds and absence of murmurs, rubs or gallops. Abdomen unremarkable and without evidence of organomegaly, masses, or abdominal aortic enlargement, bowel sounds are present in all 4 quadrants, no abdominal tenderness was noted. Extremities nonedematous, no cyanosis was noted, no clubbing was noted. Neuro: Cranial nerves II through XII are grossly intact, no focal motor deficits were noted, sensation to light touch and pinprick is intact, motor exam 5/5 throughout. Psych: Patient is somnolent but responds to some verbal commands, she does not appear agitated or nervous. Impression: #1 encephalopathy-etiology unclear at this point #2 chronic hypoxic respiratory failure-patient is on the same oxygen setting she is usually on at the custodial facility #3 severe pulmonary hypertension #4 chronic atrial fibrillation #5 type 2 diabetes I have reviewed Amanda Shepard's discharge summary including her medical assessment and plan of care with the above additions endorse it. Total clinical time spent by myself addressing the patient's medical issues, reviewing the data, and collaborating with patient's care team: 25 minutes Visit Charges OBSV E&M: [id number] Observation care discharge
[2022-01-20] MEDS: Potassium Chloride Oral Soln 20 MEQ/15 ML UDC 40 MEQ PO (14:21)
--- NOTE | 2022-01-20 14:37 | NURSING ---
Report called to KELLY Mayes at 1431. Told Sugey results from MRI, ABGs, continuing PO abx and how pts mentation has been waxing and waning. Currently A&Ox1. Pt responds one worded responses. Chooses what she responds more to.
== END 2022-01-20 13:00 ==
LOC: ED 17:38 → PCU 17:52
PROVIDERS: Physician Assistant; Admitting Provider Internal Medicine; Emergency Provider Emergency Medicine; PCP Family Medicine; Visit Provider Internal Medicine
DX: I11.0 Hypertensive heart disease with heart failure (principal); L97.829 Non-pressure chronic ulcer of other part of left lower leg with unspecified severity; I50.33 Acute on chronic diastolic (congestive) heart failure; I27.21 Secondary pulmonary arterial hypertension; E11.59 Type 2 diabetes mellitus with other circulatory complications; J96.11 Chronic respiratory failure with hypoxia; I48.20 Chronic atrial fibrillation, unspecified; D64.9 Anemia, unspecified; Z79.01 Long term (current) use of anticoagulants; E78.5 Hyperlipidemia, unspecified; N30.00 Acute cystitis without hematuria; R01.1 Cardiac murmur, unspecified; Z79.82 Long term (current) use of aspirin; Z87.891 Personal history of nicotine dependence; J45.909 Unspecified asthma, uncomplicated; Z79.84 Long term (current) use of oral hypoglycemic drugs; I87.2 Venous insufficiency (chronic) (peripheral); G93.40 Encephalopathy, unspecified; Z79.899 Other long term (current) drug therapy; B96.20 Unspecified Escherichia coli [E. coli] as the cause of diseases classified elsewhere; F32.A Depression, unspecified; G47.33 Obstructive sleep apnea (adult) (pediatric); B96.1 Klebsiella pneumoniae [K. pneumoniae] as the cause of diseases classified elsewhere
CPT/HCPCS: 36415; 36600; 70450; 70551; 71045; 80048; 80053; 80076; 81001; 82140; 82803; 82962; 85025; 87077; 87086; 87088; 87186; 93005; 96365; 97802; 99218; 99285; A4216; G0378

== ENCOUNTER 2022-01-21 10:54 | Observation (INO) | payer MEDICARE, MEDICAID, SELFPAY ==
[2022-01-21] VITALS (19 sets, daily range): BP systolic 112–181; BP diastolic 67–121; PULSE 88–98; RESP 14–22; TEMP 35.6–37; O2SAT 92–100; BMI 36.1; BMI 34.4
--- NOTE | 2022-01-21 10:55 | CT_ITS ---
STUDY: CT HEAD STROKE PROTOCOL W/O CONTRAST INJECTION REASON FOR EXAM: Female, 71 years old. Neuro deficit, acute, stroke suspected RADIATION DOSAGE (If Supplied By Facility): CTDIvol = ( 44.99 ) mGy, DLP = ( 846.73 ) mGycm TECHNIQUE: Transaxial CT imaging of the brain was performed without administration of intravenous contrast material. Individualized dose optimization techniques were used for this CT. COMPARISON: Comparison is made with prior study dated 01/19/2022. FINDINGS: Normal soft tissue structures. Normal calvarium. There is mild cerebral atrophy with widening of the extra-axial spaces and ventricular dilatation. There are areas of decreased attenuation within the white matter tracts of the supratentorial brain, consistent with microvascular disease changes. Stable focal encephalomalacia in the superior aspect of the right parietal occipital lobe. Normal basal ganglia and thalami. Normal brainstem. Normal cerebellum. There is no intracranial hemorrhage. There are no findings of an acute ischemic infarction. Atherosclerotic calcification of the vertebral arteries and cavernous portions of the internal carotid arteries bilaterally. Normal visualized paranasal sinuses. ASPECT score: 10 CT/STROKE Brain/Head without Cont IMPRESSION: Chronic involutional changes of the brain. N.B. : The above Results were Read Back by Bandar Mckeon MD to [facility] and understanding confirmed on 01/21/2022 11:08:40 (ET). Electronically Signed: Bandar Mckeon MD at 11:09 EDT ,
--- NOTE | 2022-01-21 10:55 | EKG12_ITS ---
Test Reason : stroke Blood Pressure : / mmHG Vent. Rate : 093 BPM Atrial Rate : 000 BPM P-R Int : 000 ms QRS Dur : 078 ms QT Int : 364 ms P-R-T Axes : 000 -08 193 degrees QTc Int : 452 ms Atrial fibrillation Low voltage QRS ST & T wave abnormality, consider lateral ischemia Abnormal ECG Confirmed by DAVINA BLACK, RAUL ([id number]), newspaper copy editor ALMA DELIA ESTRADA ([id number]) on 01/22/2022 10:24:50 AM Referred By: Confirmed By:RAUL GHOSH MD
--- NOTE | 2022-01-21 10:56 | CT_ITS ---
STUDY: CTA HEAD AND NECK WITH CONTRAST REASON FOR EXAM: Female, 71 years old. Neuro deficit, acute, stroke suspected RADIATION DOSAGE (If Supplied By Facility): CTDIvol = ( 20.02 ) mGy, DLP = ( 765.87 ) mGycm TECHNIQUE: CT angiography was performed with a multi-detector CT scanner. Data acquisition was obtained from the skull base through the vertex following intravenous administration of IV 100mL [id number]-[id number]. MIP images were reconstructed from the axial data set. Post-processing of the angiographic images was performed, with multiplanar reformation and 3D reconstruction. Individualized dose optimization techniques were used for this CT. COMPARISON: No relevant priors. FINDINGS: Normal bilateral petrous carotid arteries. There is calcified plaque formation of the right cavernous carotid artery, without a cross-sectional luminal stenosis. There is calcified plaque formation of the left cavernous carotid artery, without a cross-sectional luminal stenosis. Normal right A1 segments of the anterior cerebral artery. Normal left A1 segments of the anterior cerebral artery. Normal intact anterior communicating artery (ACOM). Normal bilateral A2 segments of the anterior cerebral arteries. Normal right M1 and M2 segments of the middle cerebral arteries, with a normal M1 bifurcation. Normal left M1 and M2 segments of the middle cerebral arteries, with a normal M1 bifurcation. Normal right posterior communicating artery (PCOM). Normal left posterior communicating artery (PCOM). Normal bilateral vertebral arteries. Normal basilar artery with a normal basilar bifurcation. The visualized bilateral superior cerebellar (SCA) arteries are normal. Normal bilateral P1, P2 and visualized P3 segments of the posterior cerebral arteries. There is no demonstrated aneurysm of the [place] of [place]. Chronic involutional changes. Heterogeneous appearance of the thyroid gland bilaterally with the focal hypodensities. This may represent goiters change. AORTIC ARCH: There is atherosclerotic calcific plaque formation of the aortic arch and great vessels arising from the aortic arch, without a hemodynamically significant stenosis. There is a normal origin of the brachiocephalic, left common carotid, and left subclavian arteries. RIGHT CAROTID ARTERIES: Normal right common carotid artery (CCA). Normal right common carotid bulb. There is mild atherosclerotic plaque formation of the origin of the right internal carotid artery with less than 50% cross sectional diameter stenosis. Normal visualized cervical portion of the right internal carotid artery. Normal origin of the right external carotid artery (ECA). LEFT CAROTID ARTERIES: Normal left common carotid artery (CCA). Normal left common carotid bulb. There is mild atherosclerotic plaque formation of the origin of the left internal carotid artery with less than 50% cross sectional diameter stenosis. Normal visualized cervical portion of the left internal carotid artery. Normal origin of the left external carotid artery (ECA). VERTEBRAL ARTERIES: Normal bilateral vertebral arteries. CT/STROKE CTA Head AND Neck W/Con IMPRESSION: Calcific plaque at the origin of both the right and left internal carotid arteries causing less than 50% luminal narrowing. N.B. : The above Results were Read Back by Bandar Mckeon MD to [facility] and understanding confirmed on 01/21/2022 11:53:17 (ET). Electronically Signed: Bandar Mckeon MD at 11:54 EDT ,
--- NOTE | 2022-01-21 10:56 | NURSING ---
STROKE ALERT CALLED [phone]
--- NOTE | 2022-01-21 11:06 | NURSING ---
FACESHEET FAXED TO [facility]
--- NOTE | 2022-01-21 11:09 | CM.ED ---
Social Work Note Reason for Referral: STROKE Alert SW responded to STROKE alert, no family present. SW to remain available should additional needs arise. Ann Marshall CONTINUING EDUCATION DEAN, BRIAR SHOP SUPERVISOR
--- NOTE | 2022-01-21 11:22 | EDS_ITS ---
HPI History of Present Illness Chief Complaint: Neuro S/Sx Informant: EMS and SNF Narrative Narrative: 71-year-old female presenting as prehospital stroke team. Last known well last night. Patient was found to have facial droop this morning. She then became less responsive and EMS was called. She was admitted to the hospital on 01/15 and discharged on 01/19. She was readmitted on 01/19 and discharged yesterday. She was found to have UTI and altered mental status. On arrival she has generalized weakness, follows some commands. She was taken directly to CT scan. Prior similar symptoms: Yes Recent Illness/Hospitalization: Yes [facility] Medical History Anemia Depression Essential hypertension Femur fracture, left GERD (gastroesophageal reflux disease) Hyperlipidemia Mitral stenosis Non-rheumatic mitral valve stenosis Nonrheumatic aortic (valve) stenosis Nonrheumatic aortic (valve) stenosis CHIDI (obstructive sleep apnea) Other secondary pulmonary hypertension Pulmonary hypertension Type 2 diabetes mellitus Home Medications cholecalciferol (vitamin D3) 50 mcg (2,000 unit) capsule 2,000 unit PO DAILY SUPPLEMENT 10/07/18 [History Last Taken 01/15/22] atorvastatin 20 mg tablet 20 mg PO QHS CHOLESTEROL 05/24/20 [History Last Taken 01/14/22] metformin 500 mg tablet 500 mg PO BID DM 11/15/20 [History Last Taken 01/15/22] ferrous sulfate 325 mg (65 mg iron) tablet,delayed release 325 mg PO DAILY SUPPLEMENT 01/10/21 [History Last Taken 01/15/22] famotidine 20 mg tablet 20 mg PO QHS GERD 01/11/21 [History Last Taken 01/14/22] apixaban 5 mg tablet (Eliquis) 5 mg PO BID AFIB 03/09/21 [History Last Taken 01/15/22] escitalopram oxalate 5 mg tablet (Lexapro) 5 mg PO DAILY DEPRESSION 07/24/21 [History Last Taken 01/15/22] pilocarpine HCl 5 mg tablet 5 mg PO TIDCM DRY MOUTH 07/24/21 [History Last Taken 01/15/22] polyethylene glycol 3350 17 gram/dose oral powder (Miralax) 17 g PO DAILY CONSTIPATION 09/12/21 [History Last Taken 01/15/22] acetaminophen 325 mg tablet 650 mg PO TID PAIN AND FEVER 01/15/22 [History Last Taken 01/15/22] albuterol sulfate 90 mcg/actuation aerosol inhaler 2 puff inhalation Q6H PRN sob 01/15/22 [History Last Taken Unknown] aspirin 81 mg tablet,delayed release (Adult Low Dose Aspirin) 81 mg PO DAILY HEART HEALTH 01/15/22 [History Last Taken 01/15/22] biotin 5 mg capsule 5 mg PO DAILY HAIR SKIN AND NAILS 01/15/22 [History Last Taken 01/15/22] bisacodyl 10 mg rectal suppository 10 mg [place] DAILY PRN Constipation 01/15/22 [History Last Taken 01/12/22] cetirizine 10 mg tablet (Zyrtec) 10 mg PO QHS ALLERGIES 01/15/22 [History Last Taken 01/14/22] magnesium oxide 400 mg PO DAILY SUPPLEMENT 01/15/22 [History Last Taken 01/15/22] multivitamin 1 tab PO DAILY SUPPLEMENT 01/15/22 [History Last Taken 01/15/22] oxybutynin chloride 15 mg tablet,extended release 24 hr 15 mg PO DAILY BLADDER 0 01/15/22 [History Last Taken 01/15/22] potassium chloride 20 mEq tablet,extended release 20 meq PO DAILY SUPPLEMENT 01/15/22 [History Last Taken 01/15/22] sennosides 8.6 mg tablet (senna) 8.6 mg PO BID CONSTIPATION 01/15/22 [History Last Taken 01/15/22] cephalexin 500 mg capsule 500 mg PO Q12 4 days #8 caps 01/19/22 [Rx Last Taken Unknown] metoprolol tartrate 25 mg tablet 12.5 mg PO BID #0 tabs 01/19/22 [Rx Last Taken Unknown] mupirocin 2 % topical ointment 1 applic topical BID #0 grams 01/19/22 [Rx Last Taken Unknown] furosemide 40 mg tablet 40 mg PO BIDLX #0 tabs 01/20/22 [Rx Last Taken Unknown] acetaminophen 500 mg tablet 500 mg PO Q6H PRN pain/fever 01/21/22 [History Last Taken Unknown] magnesium hydroxide 400 mg/5 mL oral suspension (Milk of Magnesia) 30 ml PO DAILY PRN Constipation 01/21/22 [History Last Taken Unknown] mineral oil 118 ml [place] DAILY PRN Constipation 01/21/22 [History Last Taken Unknown] zinc oxide 1 applic topical TID 01/21/22 [History Last Taken Unknown] Allergy/AdvReac Type Severity Reaction Status Date / Time lisinopril AdvReac Intermediate Unknown Verified 01/21/22 11:20 penicillin G AdvReac Intermediate Unknown Verified 01/21/22 11:20 exenatide [From [place]] AdvReac Unknown Unknown Verified 01/21/22 11:20 Family History (Reviewed 09/12/21 @ 08:17 by Eun Feng BUSINESS INTELLIGENCE ANALYST, BUSINESS INTELLIGENCE ANALYST-C) Sister CAD (coronary artery disease) Hx of CABG Surgical History History of cholecystectomy History of dilatation and curettage History of hernia repair History of left heart catheterization (LHC) (~12/12/20) History of partial colectomy History of total left knee replacement Social History housing: [facility] number of children: 0 current occupational status: retired Smoking Status: Current every day smoker tobacco type: cigarettes alcohol intake: never additional social history: single ROS ROS ED Review of Systems ROS Unobtainable: due to encephalopathy EXAM Physical Exam Const Vital Signs: 01/21/22 11:01 01/21/22 11:03 01/21/22 11:19 Temperature 96.8 F L 98.6 F 96.8 F L Temperature Source Temporal Temporal Temporal Pulse Rate 94 94 95 Respiratory Rate 18 18 18 Blood Pressure 121/88 H 121/88 H 121/88 H Blood Pressure Mean 99 99 99 Pulse Ox 94 94 94 Oxygen Delivery Method Room Air Room Air Room Air 01/21/22 11:19 01/21/22 11:30 01/21/22 12:00 Temperature 96.0 F L Temperature Source Temporal Pulse Rate 88 95 Respiratory Rate 18 22 H Blood Pressure 120/68 133/82 H Blood Pressure Mean 85 99 Pulse Ox 94 100 Oxygen Delivery Method Room Air Room Air Room Air 01/21/22 12:00 01/21/22 12:05 01/21/22 12:30 Temperature 97 F L Temperature Source Temporal Pulse Rate 95 98 93 Respiratory Rate 22 H 15 22 H Blood Pressure 133/82 H 133/82 H 126/79 H Blood Pressure Mean 99 99 94 Pulse Ox 100 100 95 Oxygen Delivery Method Room Air Room Air Room Air Positive well nourished and well developed General Appearance ED: well developed HEENT Reports moist mucous membranes Resp normal respiratory effort Cardio Rhythm: abnormal rhythm irregularly irregular GI non-tender Extremity Extremity Narrative: LLE dressing intact Neuro Neuro Narrative: NIH 17. 2 for LOC questions: 1 for LOC commands, 2 for facial droop, 2 for right and left upper extremity each, 3 for right and left lower extremity each, 2 for aphasia Sensorium / Orientation: alert Skin no rashes or lesions noted MDM MDM MDM Narrative Medical decision making narrative: Patient was taken directly to CT scan. Noncontrast head CT shows no acute process. CTA head and neck show calcific plaque at the origin of both the right and left internal carotid arteries causing less than 50% luminal narrowing. [facility] neurology was consulted and recommends possible repeat MRI and work-up for encephalopathy. Chest x-ray read by myself and radiology shows chronic changes. CBC unremarkable. Chemistry initially showed potassium 6.1 this was repeated and is 3.1. INR 1.5. Lactic acid is normal. Ammonia is normal. Troponin is 59. Urinalysis shows 10-25 white blood cells. Urine culture was reviewed. ABG shows pH 7.55, PCO2 42.4, PO2 61. On reevaluation, patient is more alert. She is aphasic. She opens eyes to voice and follows some commands. Discussed with hospitalist for observation. Lab Data Attestation: I reviewed the patient's lab results. Labs: Laboratory Results - last 24 hr 01/21/22 01/21/22 01/21/22 11:15 11:15 11:15 WBC 6.6 RBC 3.78 L Hgb 11.2 L Hct 36.6 L MCV 96.8 MCH 29.6 MCHC 30.6 L RDW Std Deviation 70.4 H RDW Coeff of Merly 19.8 H Plt Count 230 MPV 12.5 H Immature Gran % (Auto) 0.600 Neut % (Auto) 78.9 H Lymph % (Auto) 11.7 L [place] % (Auto) 8.6 Eos % (Auto) 0.0 Baso % (Auto) 0.2 Absolute Neuts (auto) 5.2 Absolute Lymphs (auto) 0.77 L Nucleated RBC % 0 Anisocytosis 1+ PT 17.8 H INR 1.5 APTT 25.1 Sodium 139 Potassium 6.1 H* Chloride 96 L Carbon Dioxide 39.0 H Anion Gap 4 L BUN 20 H Creatinine 0.46 L Estim Creat Clear Calc 43.27 Est GFR (MDRD) Af Amer 172 Est GFR (MDRD) Non-Af 142 BUN/Creatinine Ratio 43.7 H Glucose 122 H Lactic Acid Calcium 8.0 L Ammonia Troponin I High Sens 59 H Urine Color Urine Clarity Urine pH Ur Specific [place] Urine Protein Urine Glucose (UA) Urine Ketones Urine Occult Blood Urine Nitrite Urine Bilirubin Urine Urobilinogen Ur Leukocyte Esterase Urine RBC Urine WBC Ur Squamous Epith Cells Urine Bacteria Urine Mucus 01/21/22 01/21/22 01/21/22 11:20 11:20 11:23 WBC RBC Hgb Hct MCV MCH MCHC RDW Std Deviation RDW Coeff of Merly Plt Count MPV Immature Gran % (Auto) Neut % (Auto) Lymph % (Auto) [place] % (Auto) Eos % (Auto) Baso % (Auto) Absolute Neuts (auto) Absolute Lymphs (auto) Nucleated RBC % Anisocytosis PT INR APTT Sodium Potassium 3.1 L Chloride Carbon Dioxide Anion Gap BUN Creatinine Estim Creat Clear Calc Est GFR (MDRD) Af Amer Est GFR (MDRD) Non-Af BUN/Creatinine Ratio Glucose Lactic Acid 1.2 Calcium Ammonia 15.0 Troponin I High Sens Urine Color Urine Clarity Urine pH Ur Specific [place] Urine Protein Urine Glucose (UA) Urine Ketones Urine Occult Blood Urine Nitrite Urine Bilirubin Urine Urobilinogen Ur Leukocyte Esterase Urine RBC Urine WBC Ur Squamous Epith Cells Urine Bacteria Urine Mucus 01/21/22 12:00 WBC RBC Hgb Hct MCV MCH MCHC RDW Std Deviation RDW Coeff of Merly Plt Count MPV Immature Gran % (Auto) Neut % (Auto) Lymph % (Auto) [place] % (Auto) Eos % (Auto) Baso % (Auto) Absolute Neuts (auto) Absolute Lymphs (auto) Nucleated RBC % Anisocytosis PT INR APTT Sodium Potassium Chloride Carbon Dioxide Anion Gap BUN Creatinine Estim Creat Clear Calc Est GFR (MDRD) Af Amer Est GFR (MDRD) Non-Af BUN/Creatinine Ratio Glucose Lactic Acid Calcium Ammonia Troponin I High Sens Urine Color Yellow Urine Clarity Sl. Cloudy Urine pH 7.0 Ur Specific [place] 1.010 Urine Protein Negative Urine Glucose (UA) Normal Urine Ketones 50 H Urine Occult Blood 10 H Urine Nitrite Positive H Urine Bilirubin Negative Urine Urobilinogen Normal Ur Leukocyte Esterase 100 H Urine RBC 0-5 SEEN Urine WBC 10-25 SEEN Ur Squamous Epith Cells 0-5 SEEN Urine Bacteria 2+ Urine Mucus 0 SEEN ABG Data ABG results: ABG 01/21/22 12:16 Specimen Type ART Sample Site R Brach pH 7.55 H Bicarbonate Actual 37.1 H Total CO2 38 Base Excess 15 H O2 Saturation 94 L ABG pCO2 42.4 ABG pO2 61 L O2 Delivery Device Room Air Radiography Chest X-Ray - ED: 1 View, Read by ED Physician and Read by Radiologist Diagnostic Testing: Clinical Impression(s) from Imaging Studies Brain CT 01/21/22 10:55 IMPRESSION: Chronic involutional changes of the brain. N.B. : The above Results were Read Back by Bandar Mckeon MD to [facility] and understanding confirmed on 01/21/2022 11:08:40 (ET). Electronically Signed: Bandar Mckeon MD at 11:09 EDT , ADDENDUM: 01/21/22 1116 IMPRESSION: Chronic involutional changes of the brain. N.B. : The above Results were Read Back by Bandar Mckeon MD to [facility] and understanding confirmed on 01/21/2022 11:08:40 (ET). Electronically Signed: Bandar Mckeon MD at 11:09 EDT , Head/Neck CTA 01/21/22 10:56 IMPRESSION: Calcific plaque at the origin of both the right and left internal carotid arteries causing less than 50% luminal narrowing. N.B. : The above Results were Read Back by Bandar Mckeon MD to [facility] and understanding confirmed on 01/21/2022 11:53:17 (ET). Electronically Signed: Bandar Mckeon MD at 11:54 EDT , ADDENDUM: 01/21/22 1201 IMPRESSION: Calcific plaque at the origin of both the right and left internal carotid arteries causing less than 50% luminal narrowing. N.B. : The above Results were Read Back by Bandar Mckeon MD to [facility] and understanding confirmed on 01/21/2022 11:53:17 (ET). Electronically Signed: Bandar Mckeon MD at 11:54 EDT , Chest X-Ray 01/21/22 12:20 IMPRESSION: 1. Chronically small lung volumes, right greater than left, which is unchanged from the prior study. There is persistent interstitial scarring in the bilateral lung bases and in the right midlung field. Nodular/tubular densities of the right midlung field not seen on the prior study and appear to be related to pulmonary vasculature and underlying thickening of the interlobar fissure. 2. Noncontrast CT of the chest can be obtained for further assessment if clinically indicated. Electronically Signed: Jose Murray MD at 13:14 EDT , Discharge Plan Triage Chief Complaint: Neuro S/Sx ED Provider: [facility] [place] Dx/Rx/DC Orders Clinical Impression: Aphasia, Encephalopathy, Facial droop Prescriptions: No Action cholecalciferol (vitamin D3) 2,000 unit capsule 2,000 unit PO DAILY atorvastatin 20 mg tablet 20 mg PO QHS metformin 500 mg tablet 500 mg PO BID famotidine 20 mg tablet 20 mg PO QHS ferrous sulfate 325 mg (65 mg iron) tablet,delayed release (DR/EC) 325 mg PO DAILY polyethylene glycol 3350 [Miralax] 17 gram/dose powder 17 g PO DAILY Eliquis 5 mg Tablet 5 mg PO BID Label Comments: . pilocarpine HCl 5 mg tablet 5 mg PO TIDCM escitalopram oxalate [Lexapro] 5 mg Tablet 5 mg PO DAILY albuterol sulfate 90 mcg/actuation Hfa Aerosol Inhaler 2 puff INHALATION Q6H PRN (Reason: sob) multivitamin Tablet 1 tab PO DAILY sennosides [senna] 8.6 mg Tablet 8.6 mg PO BID oxybutynin chloride 15 mg tablet extended release 24hr 15 mg PO DAILY cetirizine [Zyrtec] 10 mg Tablet 10 mg PO QHS biotin 5 mg Capsule 5 mg PO DAILY bisacodyl 10 mg Suppository 10 mg W[place] DAILY PRN (Reason: Constipation) acetaminophen 325 MG tablet 650 mg PO TID aspirin [Adult Low Dose Aspirin] 81 mg tablet,delayed release (DR/EC) 81 mg PO DAILY potassium chloride 20 mEq tablet extended release 20 meq PO DAILY magnesium oxide 400 mg magnesium tablet 400 mg PO DAILY cephalexin 500 mg Capsule 500 mg PO Q12 4 Days Qty: 8 0RF mupirocin 2 % Ointment 1 applic topical BID Qty: 0 0RF Protocol: *Topical Application Instructions APPLICATION INSTRUCTIONS: Apply to left barrientos wound twice daily metoprolol tartrate 25 mg Tablet 12.5 mg PO BID Qty: 0 0RF furosemide 40 mg Tablet 40 mg PO BIDLX Qty: 0 0RF acetaminophen 500 mg Tablet 500 mg PO Q6H PRN (Reason: pain/fever) mineral oil Enema 118 ml WY DAILY PRN (Reason: Constipation) Rx Instructions: discard any unused portion magnesium hydroxide [Milk of Magnesia] 400 mg/5 mL Suspension 30 ml PO DAILY PRN (Reason: Constipation) zinc oxide Ointment 1 applic TOPICAL TID Primary Care Provider: Imer Villanueva Referrals: Imer Villanueva [Primary Care Provider] - Disposition Disposition: Acute Care Hospital [facility]
[2022-01-21 11:23] LABS: Absolute Lymphocyte Count 0.77 X10^3/uL (0.83-4.51); Absolute Neutrophil Count 5.2 X10^3/uL (2.0-7.7); Basophil# 0.01 X10^3/uL; Basophil% 0.2 % (0-1); Hematocrit 36.6 % (37-47); Hemoglobin 11.2 g/dL (12.0-15.0); Lymphocyte # 0.77 X10^3/ul (0.83-4.51); Lymphocyte % 11.7 % (19-41); Mean Corp Hgb Conc 30.6 g/dL (32-36); Mean Corpuscular Hgb 29.6 pg (27.0-32.0); Mean Corpuscular Volume 96.8 fL (81-99); Mean Platelet Vol. 12.5 fl (6.2-12.0); Monocyte# 0.57 X10^3/uL; Monocyte% 8.6 % (0-10); NRBC Flagged by Analyzer 0 % (0-5); Neutrophil % 78.9 % (47-70); POSITIVE MORPHOLOGY YES; Platelet Count 230 K/mm3 (150-450); RBC Distribution Width CV 19.8 % (11.6-14.6); RBC Distribution Width SD 70.4 fl (35.1-43.9); Red Blood Count 3.78 M/mm3 (4.2-5.4); White Blood Count 6.6 K/mm3 (4.4-11.0)
[2022-01-21 11:31] LABS: Differential Indicated SCAN CRITERIA MET
[2022-01-21 11:32] LABS: International Normalized Ratio 1.5; Partial Thromboplast Time 25.1 Seconds (24.1-36.2); Prothrombin Time (Protime)PT. 17.8 SECONDS (11.7-14.9)
[2022-01-21 11:47] LABS: Anion Gap 4 (5-15); BUN 20 mg/dL (7-18); BUN/Creat Ratio 43.7 RATIO (10-20); Chloride 96 mmol/L (98-107); Creatinine, Serum 0.46 mg/dL (0.55-1.02); EST Glomerular Filtration Rate 142 mL/min (>60); Est Glom Filt Rate - Afr Amer 172 mL/min (>60); Estimated Creatinine Clearance 43.27 ml/min; Glucose 122 mg/dL (74-106); Potassium 6.1 mmol/L (3.5-5.1); Sodium Level 139 mmol/L (136-145); Troponin-I HS 59 pg/mL (3.0-54.0)
[2022-01-21 11:48] LABS: Anisocytosis 1+
--- NOTE | 2022-01-21 11:51 | CHAPLAIN ---
Type of Pastoral Visit ___ Initial Visit ___ Follow-up Visit ___ On-call Visit ___ General Patient Visit ___ Spiritual Assessment ___ Family Conference ___ Bereavement _x__ Rapid Response ___ Code Blue ___ Other (describe below) Pastoral Care Referral From ___ Patient ___ Family ___ Nurse ___ Physician ___ Finishing Supervisor ___ Globe Tester _x__ Other (describe below) Sacrament/Intervention ___ Active listening ___ Anointing ___ Mandaeism ___ Bereavement ___ Communion ___ Jennifer exploration ___ ___ Life review ___ Prayer ___ Reconciliation ___ Sacrament of Sick ___ Supportive presence ___ Wedding ___ Other (describe below) Pastoral Comments came to stroke alert in ED; pt was in CT scan and xray; waited to see if family was coming; no one aware of family coming; SW was on the seen for support as well
[2022-01-21 12:04] LABS: Mucous, Urine 0 SEEN /hpf (<or=2+)
[2022-01-21 12:15] LABS: Lactic Acid 1.2 mmol/L (0.4-1.9)
[2022-01-21 12:20] LABS: Base Excess 15 mmol/L (-2 to +2); Bicarbonate 37.1 mmol/L (22-26); Blood Gas Specimen Type ART; O2 Delivery Device Room Air; PO2 61 mmHG (75-100); SITE R Brach; SO2 94 % (95-99); Total Carbon Dioxide 38 mmol/L; pCO2 42.4 mmHg (35-45); pH 7.55 (7.35-7.45)
[2022-01-21 12:20] LABS: Color, Urine Yellow (Yellow); Glucose, Dipstick Normal (Normal); Ketone-Dipstick 50 mg/dl (Negative); Leukocyte Esterase-Dipstick 100 /ul (Negative); Nitrite-Dipstick Positive (Negative); Occult Blood-Urine 10 /ul (Negative); Protein-Dipstick Negative (Negative); Urine Bilirubin Dipstick Negative (Negative); Urine Clarity Sl. Cloudy (Clear); Urine Urobilinogen Normal (Normal)
--- NOTE | 2022-01-21 12:20 | RAD_ITS ---
STUDY: X-RAY CHEST REASON FOR EXAM: Female, 71 years old. Neuro deficit, acute, stroke suspected TECHNIQUE: Single AP portable view of the chest. COMPARISON: January 19, 2022 FINDINGS: Chronically small lung volumes, right greater than left, which is unchanged from the prior study. There is persistent interstitial scarring in the bilateral lung bases and in the right midlung field. Nodular/tubular densities of the right midlung field not seen on the prior study and appear to be related to pulmonary vasculature and underlying thickening of the interlobar fissure. There is no demonstrated pleural abnormality. Normal size heart. Normal mediastinum and bala. Normal visualized pulmonary arteries. There is atherosclerotic tortuosity of the aortic arch and descending thoracic aorta. There are diffuse degenerative changes of the visualized thoracic spine. Normal visualized ribs, clavicles, and shoulders. There is no demonstrated abnormality of the visualized soft tissue structures of the upper abdomen. RAD/Chest 1 View IMPRESSION: 1. Chronically small lung volumes, right greater than left, which is unchanged from the prior study. There is persistent interstitial scarring in the bilateral lung bases and in the right midlung field. Nodular/tubular densities of the right midlung field not seen on the prior study and appear to be related to pulmonary vasculature and underlying thickening of the interlobar fissure. 2. Noncontrast CT of the chest can be obtained for further assessment if clinically indicated. Electronically Signed: Jose Murray MD at 13:14 EDT ,
[2022-01-21 12:26] LABS: Bacteria 2+ /hpf (None Seen); Red Blood Cells-Urine 0-5 SEEN /hpf (0-5); Squamous Epithelial Cells - UA 0-5 SEEN /hpf (5-10); White Blood Cells 10-25 SEEN /hpf (0-5)
[2022-01-21 12:43] LABS: Potassium 3.1 mmol/L (3.5-5.1)
--- NOTE | 2022-01-21 13:34 | NURSING ---
117 OBS CESIA FACIAL DROOP, APHASIA, ALTERED MENTAL STATUS
--- NOTE | 2022-01-21 14:00 | HP.PCM.HOS_ITS ---
Documented by User: Amanda Shepard NP, APPRENTICESHIP REPRESENTATIVE-C 01/21/22 14:42 HPI - General General Date of Admission: 01/21/22 Date of Service: 01/21/22 HPI Narrative GARCÍA BURROWS, is a 71 F who presents to the emergency room due to left facial droop and decreased responsiveness. Patient discharged 01/20/2022 following work-up for altered mental status. Infectious and metabolic work-up at that time unremarkable and MRI of brain negative for acute stroke. Sedating regimen held and patient returned to nursing facility. Patient noted at nursing facility to have facial droop this morning and squad was called. Brain CT on admission without acute process. Patient being admitted for further neurologic evaluation. Patient unable to provide HPI due to altered mental status. Speech is garbled and she does appear to have left facial droop. No family at bedside. She has a past medical history of chronic heart failure with preserved ejection fraction, chronic Evoxac respiratory failure, severe pulmonary hypertension, chronic asthma, type 2 diabetes mellitus, hypertension, hyperlipidemia, depression. FORMERLY [facility] Medical History Anemia Depression Essential hypertension Femur fracture, left GERD (gastroesophageal reflux disease) Hyperlipidemia Mitral stenosis Non-rheumatic mitral valve stenosis Nonrheumatic aortic (valve) stenosis Nonrheumatic aortic (valve) stenosis CHIDI (obstructive sleep apnea) Other secondary pulmonary hypertension Pulmonary hypertension Type 2 diabetes mellitus Home Medications cholecalciferol (vitamin D3) 50 mcg (2,000 unit) capsule 2,000 unit PO DAILY SUPPLEMENT 10/07/18 [History Last Taken 01/20/22] atorvastatin 20 mg tablet 20 mg PO QHS CHOLESTEROL 05/24/20 [History Last Taken 01/20/22] metformin 500 mg tablet 500 mg PO BID DM 11/15/20 [History Last Taken 01/20/22] ferrous sulfate 325 mg (65 mg iron) tablet,delayed release 325 mg PO DAILY SUPPLEMENT 01/10/21 [History Last Taken 01/20/22] famotidine 20 mg tablet 20 mg PO QHS GERD 01/11/21 [History Last Taken 01/20/22] apixaban 5 mg tablet (Eliquis) 5 mg PO BID AFIB 03/09/21 [History Last Taken ] escitalopram oxalate 5 mg tablet (Lexapro) 5 mg PO DAILY DEPRESSION 07/24/21 [History Last Taken 01/20/22] pilocarpine HCl 5 mg tablet 5 mg PO TIDCM DRY MOUTH 07/24/21 [History Last Taken 01/20/22] polyethylene glycol 3350 17 gram/dose oral powder (Miralax) 17 g PO DAILY CONSTIPATION 09/12/21 [History Last Taken 01/20/22] acetaminophen 325 mg tablet 650 mg PO TID PAIN AND FEVER 01/15/22 [History Last Taken 01/20/22] albuterol sulfate 90 mcg/actuation aerosol inhaler 2 puff inhalation Q6H PRN sob 01/15/22 [History Last Taken Unknown] aspirin 81 mg tablet,delayed release (Adult Low Dose Aspirin) 81 mg PO DAILY HEART HEALTH 01/15/22 [History Last Taken 01/20/22] biotin 5 mg capsule 5 mg PO DAILY HAIR SKIN AND NAILS 01/15/22 [History Last Taken 01/20/22] bisacodyl 10 mg rectal suppository 10 mg [place] DAILY PRN Constipation 01/15/22 [History Last Taken 01/12/22] cetirizine 10 mg tablet (Zyrtec) 10 mg PO QHS ALLERGIES 01/15/22 [History Last Taken 01/20/22] magnesium oxide 400 mg PO DAILY SUPPLEMENT 01/15/22 [History Last Taken 01/20/22] multivitamin 1 tab PO DAILY SUPPLEMENT 01/15/22 [History Last Taken 01/20/22] oxybutynin chloride 15 mg tablet,extended release 24 hr 15 mg PO DAILY BLADDER 01/15/22 [History Last Taken 01/20/22] potassium chloride 20 mEq tablet,extended release 20 meq PO DAILY SUPPLEMENT 01/15/22 [History Last Taken 01/20/22] sennosides 8.6 mg tablet (senna) 8.6 mg PO BID CONSTIPATION 01/15/22 [History Last Taken 01/20/22] cephalexin 500 mg capsule 500 mg PO Q12 4 days #8 caps 01/19/22 [Rx Last Taken Unknown] metoprolol tartrate 25 mg tablet 12.5 mg PO BID #0 tabs 01/19/22 [Rx Last Taken 01/20/22] mupirocin 2 % topical ointment 1 applic topical BID #0 grams 01/19/22 [Rx Last Taken 01/20/22] furosemide 40 mg tablet 40 mg PO BIDLX #0 tabs 01/20/22 [Rx Last Taken 01/20/22] acetaminophen 500 mg tablet 500 mg PO Q6H PRN pain/fever 01/21/22 [History Last Taken Unknown] magnesium hydroxide 400 mg/5 mL oral suspension (Milk of Magnesia) 30 ml PO DAILY PRN Constipation 01/21/22 [History Last Taken Unknown] mineral oil 118 ml [place] DAILY PRN Constipation 01/21/22 [History Last Taken Unknown] zinc oxide 1 applic topical TID 01/21/22 [History Last Taken 01/20/22] Allergy/AdvReac Type Severity Reaction Status Date / Time lisinopril AdvReac Intermediate Unknown Verified 01/21/22 11:20 penicillin G AdvReac Intermediate Unknown Verified 01/21/22 11:20 exenatide [From [place]] AdvReac Unknown Unknown Verified 01/21/22 11:20 Family History Sister CAD (coronary artery disease) Hx of CABG Family History unable to obtain unable to obtain (Due to encephalopathy) Surgical History History of cholecystectomy History of dilatation and curettage History of hernia repair History of left heart catheterization (LHC) (~12/12/20) History of partial colectomy History of total left knee replacement Social History housing: longterm number of children: 0 current occupational status: retired Smoking Status: Former smoker alcohol intake: never additional social history: single ROS Review of Systems ROS Unobtainable: due to encephalopathy and due to mental status Vital Signs Vital Signs Vital Signs: 01/21/22 11:01 01/21/22 11:03 01/21/22 11:19 Temperature 96.8 F L 98.6 F 96.8 F L Temperature Source Temporal Temporal Temporal Pulse Rate 94 94 95 Respiratory Rate 18 Blood Pressure 121/88 H 121/88 H 121/88 H Blood Pressure Mean 99 99 99 Pulse Ox 94 94 94 Oxygen Delivery Method Room Air Room Air Room Air 01/21/22 11:19 01/21/22 11:30 01/21/22 12:00 Temperature 96.0 F L Temperature Source Temporal Pulse Rate 88 95 Respiratory Rate 18 22 H Blood Pressure 120/68 133/82 H Blood Pressure Mean 85 99 Pulse Ox 94 100 Oxygen Delivery Method Room Air Room Air Room Air 01/21/22 12:00 01/21/22 12:05 01/21/22 12:30 Temperature 97 F L Temperature Source Temporal Pulse Rate 95 98 93 Respiratory Rate 22 H 15 22 H Blood Pressure 133/82 H 133/82 H 126/79 H Blood Pressure Mean 99 99 94 Pulse Ox 100 100 95 Oxygen Delivery Method Room Air Room Air Room Air 01/21/22 13:00 01/21/22 13:13 01/21/22 13:40 Temperature 97.6 F L 97.5 F L Temperature Source Temporal Temporal Pulse Rate 92 98 Respiratory Rate 17 14 Blood Pressure 128/91 H 130/97 H Blood Pressure Mean 103 108 Pulse Ox 94 95 Oxygen Delivery Method Room Air Room Air Room Air 01/21/22 13:30 Temperature Temperature Source Pulse Rate 95 Respiratory Rate 20 H Blood Pressure 137/78 H Blood Pressure Mean 97 Pulse Ox 97 Oxygen Delivery Method Room Air Weight Weight: 210 lb 8.663 oz Body Mass Index (BMI) 36.1 Physical Exam Const alert Constitutional Narrative: Drowsy, confused. Unable to answer orientation questions. Nutritional Appearance: obese HEENT normocephalic Mouth: dry mucous membranes Eyes PERRL, EOMs intact bilaterally and conjunctivae normal Neck no lymphadenopathy Resp clear to auscultation bilaterally Auscultation: diminished lung sounds Cardio Cardio Narrative: A. fib, rate controlled Peripheral Pulses: pulses 2+ throughout GI normal to inspection, nondistended, normoactive bowel sounds, non-tender and non-distended Extremity normal to inspection General Extremity: edema bilateral (Pitting upper extremity edema, nonpitting lower extremity edema) Skin no rashes or lesions noted Skin Narrative: Chronic skin changes bilateral lower extremity. Left barrientos abrasion/wound Lesions: no lesions Rashes: no rashes Trauma: no lacerations or abrasions Neuro CN's II-XII intact bilaterally, no focal motor deficits and no sensory deficits noted Neuro Narrative: Difficult to assess as patient unable to cooperate with exam. Drowsy. Possible left facial droop. Speech garbled. Psych mental status grossly normal Results Lab / Micro Data Result Diagrams: 01/21/22 11:15 01/21/22 11:20 Labs: Laboratory Results - last 24 hr 01/21/22 11:15: WBC 6.6, RBC 3.78 L, Hgb 11.2 L, Hct 36.6 L, MCV 96.8, MCH 29.6, MCHC 30.6 L, RDW Std Deviation 70.4 H, RDW Coeff of Merly 19.8 H, Plt Count 230, MPV 12.5 H, Immature Gran % (Auto) 0.600, Neut % (Auto) 78.9 H, Lymph % (Auto) 11.7 L, [place] % (Auto) 8.6, Eos % (Auto) 0.0, Baso % (Auto) 0.2, Absolute Neuts (auto) 5.2, Absolute Lymphs (auto) 0.77 L, Nucleated RBC % 0, Anisocytosis 1+ 01/21/22 11:15: PT 17.8 H, INR 1.5, APTT 25.1 01/21/22 11:15: Sodium 139, Potassium 6.1 H*, Chloride 96 L, Carbon Dioxide 39.0 H, Anion Gap 4 L, BUN 20 H, Creatinine 0.46 L, Estim Creat Clear Calc 43.27, Est GFR (MDRD) Af Amer 172, Est GFR (MDRD) Non-Af 142, BUN/Creatinine Ratio 43.7 H, Glucose 122 H, Calcium 8.0 L, Troponin I High Sens 59 H 01/21/22 11:20: Ammonia 15.0 01/21/22 11:20: Potassium 3.1 L 01/21/22 11:23: Lactic Acid 1.2 01/21/22 12:00: Urine Color Yellow, Urine Clarity Sl. Cloudy, Urine pH 7.0, Ur Specific [place] 1.010, Urine Protein Negative, Urine Glucose (UA) Normal, Urine Ketones 50 H, Urine Occult Blood 10 H, Urine Nitrite Positive H, Urine Bilirubin Negative, Urine Urobilinogen Normal, Ur Leukocyte Esterase 100 H, Urine RBC 0-5 SEEN, Urine WBC 10-25 SEEN, Ur Squamous Epith Cells 0-5 SEEN, Urine Bacteria 2+, Urine Mucus 0 SEEN ABG Data ABG results: ABG 01/21/22 12:16 Specimen Type ART Sample Site R Brach pH 7.55 H Bicarbonate Actual 37.1 H Total CO2 38 Base Excess 15 H O2 Saturation 94 L ABG pCO2 42.4 ABG pO2 61 L O2 Delivery Device Room Air Radiology Impression Brain CT 01/21/22 10:55 IMPRESSION: Chronic involutional changes of the brain. N.B. : The above Results were Read Back by Bandar Mckeon MD to Catalina [place] and understanding confirmed on 01/21/2022 11:08:40 (ET). Electronically Signed: Bandar Mckeon MD at 11:09 EDT , ADDENDUM: 01/21/22 1116 IMPRESSION: Chronic involutional changes of the brain. N.B. : The above Results were Read Back by Bandar Mckeon MD to Catalina Montana and understanding confirmed on 01/21/2022 11:08:40 (ET). Electronically Signed: Bandar Mckeon MD at 11:09 EDT , Head/Neck CTA 01/21/22 10:56 IMPRESSION: Calcific plaque at the origin of both the right and left internal carotid arteries causing less than 50% luminal narrowing. N.B. : The above Results were Read Back by Bandar Mckeon MD to Catalina Montana and understanding confirmed on 01/21/2022 11:53:17 (ET). Electronically Signed: Bandar Mckeon MD at 11:54 EDT , ADDENDUM: 01/21/22 1201 IMPRESSION: Calcific plaque at the origin of both the right and left internal carotid arteries causing less than 50% luminal narrowing. N.B. : The above Results were Read Back by Bandar Mckeon MD to Catalina Montana and understanding confirmed on 01/21/2022 11:53:17 (ET). Electronically Signed: Bandar Mckeon MD at 11:54 EDT , Chest X-Ray 01/21/22 12:20 IMPRESSION: 1. Chronically small lung volumes, right greater than left, which is unchanged from the prior study. There is persistent interstitial scarring in the bilateral lung bases and in the right midlung field. Nodular/tubular densities of the right midlung field not seen on the prior study and appear to be related to pulmonary vasculature and underlying thickening of the interlobar fissure. 2. Noncontrast CT of the chest can be obtained for further assessment if clinically indicated. Electronically Signed: Jose Murray MD at 13:14 EDT , Assessment & Plan Assessment/Plan (1) Facial droop: (2) Encephalopathy: (3) Aphasia: PLAN: Plan 1.? Altered mental status-MRI 01/20/2022 without stroke. Patient on aspirin, Eliquis, statin at baseline. Repeat brain CT on admission with chronic changes. Head and neck CTA with less than 50% bilateral internal carotid artery. PT/OT/ST. Repeat MRI of brain pending. Following imaging, will consult [facility] neurology. Recent admission with no evidence of infectious or metabolic etiology. Repeat urine and blood cultures pending. 2. Chronic heart failure with preserved ejection fraction-echocardiogram 01/16/22 with EF 65%, mild to moderate mitral valve insufficiency, moderately severe tricuspid valve insufficiency, right ventricular systolic pressure estimated to be 58 mmHg.? Recently diuresed with Lasix drip.? Continue Lasix 40 mg twice daily.? Balbir wraps bilateral lower extremities.? Strict I&O.? Daily weight. 3. Chronic hypoxic respiratory failure secondary to acute on chronic heart failure with preserved ejection fraction, complicated by underlying severe pulmonary hypertension-on 2 L nasal cannula at baseline.? Currently on baseline home O2 requirements. 4. E. coli/Klebsiella bacteriuria-low colony count. Repeat urine and blood cultures pending. 5. Left anterior barrientos stasis ulcer-MRSA on culture. Topical Bactroban X1 Week.? Continue dressing changes as ordered. 6. Severe pulmonary hypertension-continue follow-up with pulmonary medicine. 7. Chronic asthma-no exacerbation.? 8. Type 2 diabetes mellitus-continue home regimen. Accu-Cheks with sliding scale insulin. 9. Hypertension-stable, continue current regimen. 10. Hyperlipidemia-continue statin. 11. Chronic debility-PT/OT.? Resides at SNF.? Not motivated to work with therapy. 12. Depression-on Lexapro. 13. Hypokalemia-replace per protocol. Check mag. DVT prophylaxis- Eliquis. This patient was seen by [facility] under the supervision of Dr. Kramer. Documented by User: Dr. Odessa Kramer DO 01/21/22 16:48 HPI - General General Date of Admission: 01/21/22 HPI Narrative This patient was seen in conjunction with Amanda Shepard NP. The following is representation my independent history and physical examination. Please see below for down to the above. Ms. Burrows is a 71-year-old white female who presented to the emergency department from her nursing facility secondary to left facial droop/decreased responsiveness/aphasia. The patient has had 2 admissions in the past week most recently yesterday and was discharged after a work-up for altered mental status. Infectious and metabolic work-up at that time were unremarkable and an MRI of her brain was negative for acute stroke. Some of her pain medications were held at that time due to concerns for sedation. Evidently this morning the patient was noted to have a right facial droop and the squad was called. Patient is really unable to supply any history at this time. On exam it does appear that she has some left facial droop and was able to say no/ouch when I tried to examine her and do reflexes and range of motion and had spontaneous movement of all extremities but would not follow any commands. Her vital signs on presentation temp 96.8, HR 94, BP 121/88, respiratory rate 18, pulse ox 94% on room air. Her CBC is overall unremarkable. Her INR was 1.5. ABG showed predominantly metabolic alkalosis with a pH of 7.55/CO2 of 42/PO2 of 61 on room air. Sats were 94%. Her basic metabolic profile showed a potassium of 3.1, sodium bicarb of 39, BUN of 20, serum creatinine of 0.46, lactic acid was 1.2, ammonia level was 15 and her initial troponin was 59. Brain CT shows only chronic involutional changes. CTA of the head neck shows only calcific plaques at the origin of both right and left internal carotid art eries causing less than 50% luminal narrowing. Chest x-ray shows chronic small lung volumes and some persistent interstitial scarring in the bilateral lung bases with nodular/tubular densities of the right lung field. [facility] stroke alert was counseled the emergency department and recommended admissi on for repeat MRI given her symptoms. FORMERLY [facility] Medical History Anemia Depression Essential hypertension Femur fracture, left GERD (gastroesophageal reflux disease) Hyperlipidemia Mitral stenosis Non-rheumatic mitral valve stenosis Nonrheumatic aortic (valve) stenosis Nonrheumatic aortic (valve) stenosis CHIDI (obstructive sleep apnea) Other secondary pulmonary hypertension Pulmonary hypertension Type 2 diabetes mellitus Home Medications cholecalciferol (vitamin D3) 50 mcg (2,000 unit) capsule 2,000 unit PO DAILY SUPPLEMENT 10/07/18 [History Last Taken 01/20/22] atorvastatin 20 mg tablet 20 mg PO QHS CHOLESTEROL 05/24/20 [History Last Taken 01/20/22] metformin 500 mg tablet 500 mg PO BID DM 11/15/20 [History Last Taken 01/20/22] ferrous sulfate 325 mg (65 mg iron) tablet,delayed release 325 mg PO DAILY SUPPLEMENT 01/10/21 [History Last Taken 01/20/22] famotidine 20 mg tablet 20 mg PO QHS GERD 01/11/21 [History Last Taken 01/20/22] apixaban 5 mg tablet (Eliquis) 5 mg PO BID AFIB 03/09/21 [History Last Taken 01/20/22] escitalopram oxalate 5 mg tablet (Lexapro) 5 mg PO DAILY DEPRESSION 07/24/21 [History Last Taken 01/20/22] pilocarpine HCl 5 mg tablet 5 mg PO TIDCM DRY MOUTH 07/24/21 [History Last Taken 01/20/22] polyethylene glycol 3350 17 gram/dose oral powder (Miralax) 17 g PO DAILY CONSTIPATION 09/12/21 [History Last Taken 01/20/22] acetaminophen 325 mg tablet 650 mg PO TID PAIN AND FEVER 01/15/22 [History Last Taken 01/20/22] albuterol sulfate 90 mcg/actuation aerosol inhaler 2 puff inhalation Q6H PRN sob 01/15/22 [History Last Taken Unknown] aspirin 81 mg tablet,delayed release (Adult Low Dose Aspirin) 81 mg PO DAILY HE ART HEALTH 01/15/22 [History Last Taken 01/20/22] biotin 5 mg capsule 5 mg PO DAILY HAIR SKIN AND NAILS 01/15/22 [History Last Taken 01/20/22] bisacodyl 10 mg rectal suppository 10 mg [place] DAILY PRN Constipation 01/15/22 [History Last Taken 01/12/22] cetirizine 10 mg tablet (Zyrtec) 10 mg PO QHS ALLERGIES 01/15/22 [History Last Taken 01/20/22] magnesium oxide 400 mg PO DAILY SUPPLEMENT 01/15/22 [History Last Taken 01/20/22] multivitamin 1 tab PO DAILY SUPPLEMENT 01/15/22 [History Last Taken 01/20/22] oxybutynin chloride 15 mg tablet,extended release 24 hr 15 mg PO DAILY BLADDER 01/15/22 [History Last Taken 01/20/22] potassium chloride 20 mEq tablet,extended release 20 meq PO DAILY SUPPLEMENT 0 01/15/22 [History Last Taken 01/20/22] sennosides 8.6 mg tablet (senna) 8.6 mg PO BID CONSTIPATION 01/15/22 [History Last Taken 01/20/22] cephalexin 500 mg capsule 500 mg PO Q12 4 days #8 caps 01/19/22 [Rx Last Taken Unknown] metoprolol tartrate 25 mg tablet 12.5 mg PO BID #0 tabs 01/19/22 [Rx Last Taken 01/20/22] mupirocin 2 % topical ointment 1 applic topical BID #0 grams 01/19/22 [Rx Last Taken 01/20/22] furosemide 40 mg tablet 40 mg PO BIDLX #0 tabs 01/20/22 [Rx Last Taken 01/20/22] acetaminophen 500 mg tablet 500 mg PO Q6H PRN pain/fever 01/21/22 [History Last Taken Unknown] magnesium hydroxide 400 mg/5 mL oral suspension (Milk of Magnesia) 30 ml PO DAILY PRN Constipation 01/21/22 [History Last Taken Unknown] mineral oil 118 ml [place] DAILY PRN Constipation 01/21/22 [History Last Taken Unk nown] zinc oxide 1 applic topical TID 01/21/22 [History Last Taken 01/20/22] Allergy/AdvReac Type Severity Reaction Status Date / Time lisinopril AdvReac Intermediate Unknown Verified 01/21/22 11:20 penicillin G AdvReac Intermediate Unknown Verified 01/21/22 11:20 exenatide [From [place]] AdvReac Unknown Unknown Verified 01/21/22 11:20 Family History Sister CAD (coronary artery disease) Hx of CABG Family History unable to obtain Surgical History History of cholecystectomy History of dilatation and curettage History of hernia repair History of left heart catheterization (LHC) (~12/12/20) History of partial colectomy History of total left knee replacement Social History housing: longterm number of children: 0 current occupational status: retired Smoking Status: Former smoker alcohol intake: never additional social history: single ROS Review of Systems ROS Unobtainable: due to encephalopathy and due to mental status Physical Exam Const alert, no apparent distress and well nourished Constitutional Narrative: Obese, drowsy, confused. Unable to answer orientation questions., Keeps head turned to her right side, will not follow any commands however moves everything spontaneously HEENT head/scalp atraumatic HEENT Narrative: Mucous membranes appear slightly dry, dentition is poor, Mallampati is 1-2 Eyes PERRL, EOMs intact bilaterally and conjunctivae normal Eyes Narrative: No scleral icterus Neck no lymphadenopathy, supple, no JVD and no carotid bruits Resp normal respiratory effort, no retractions, no use of accessory muscles and clear to auscultation bilaterally Resp Narrative: Diffusely diminished Cardio regular rate, S1 normal heart sound, S2 normal heart sound, no murmurs, no rub, no gallops, no clicks and no JVD GI normal to inspection, nondistended, normoactive bowel sounds, soft to palpation, non-tender and non-distended; Negative for hepatosplenomegaly GI Narrative: Large abdomen Extremity Extremity Narrative: Trace to 1+ bilateral extremity edema, no cyanosis or clubbing Skin skin turgor normal, no jaundice, no petechiae and no mottling Neuro oriented x3, moves all extremities and no focal motor deficits Neuro Narrative: Difficult to assess as patient unable to cooperate with exam. Drowsy. Possible left facial droop. Speech garbled., Moves all extremities spontaneously Psych Psych Narrative: Unable to assess Results Lab / Micro Data Result Diagrams: 01/21/22 11:15 01/21/22 11:20 Assessment & Plan Assessment/Plan (1) Facial droop: (2) Encephalopathy: (3) Aphasia: PLAN: Plan 1.? Altered mental status-MRI 01/20/2022 without stroke. Patient on aspirin, Eliquis, statin at baseline. Repeat brain CT on admission with chronic changes. Head and neck CTA with less than 50% bilateral internal carotid artery. PT/OT/ST. Repeat MRI of brain pending. Following imaging, will consult [facility] neurology. Recent admission with no evidence of infectious or metabolic etiology. Repeat urine and blood cultures pending. 2. Chronic heart failure with preserved ejection fraction-echocardiogram 01/16/22 with EF 65%, mild to moderate mitral valve insufficiency, moderately severe tri cuspid valve insufficiency, right ventricular systolic pressure estimated to be 58 mmHg.? Recently diuresed with Lasix drip.? Continue Lasix 40 mg twice daily.? Balbir wraps bilateral lower extremities.? Strict I&O.? Daily weight. 3. Chronic hypoxic respiratory failure secondary to acute on chronic heart failure with preserved ejection fraction, complicated by underlying severe pulmonary hypertension-on 2 L nasal cannula at baseline.? Currently on baseline home O2 requirements. 4. E. coli/Klebsiella bacteriuria-low colony count. Repeat urine and blood cultures pending. 5. Left anterior barrientos stasis ulcer-MRSA on culture. Topical Bactroban X1 Week.? Continue dressing changes as ordered. 6. Severe pulmonary hypertension-continue follow-up with pulmonary medicine. 7. Chronic asthma-no exacerbation.? 8. Type 2 diabetes mellitus-continue home regimen. Accu-Cheks with sliding scale insulin. 9. Hypertension-stable, continue current regimen. 10. Hyperlipidemia-continue statin. 11. Chronic debility-PT/OT.? Resides at SNF.? Not motivated to work with therapy. 12. Depression-on Lexapro. 13. Hypokalemia-replace per protocol. Check mag. DVT prophylaxis- Eliquis. This patient was seen by [facility] under the supervision of Dr. Kramer. Assessment: Left facial droop Aphasia Acute metabolic encephalopathy Hyperkalemia Chronic HFpEF-compensated Chronic hypoxic respiratory failure-2 L nasal cannula baseline Bacteriuria Left anterior barrientos stasis ulcers-MRSA on culture Severe pulmonary hypertension who group 2/3 History of asthma DM-2 Hypertension Hyperlipidemia Depression Debility-chronic Plan: -Etiology unclear at this point -Obtain MRI -Ammonia normal -ABG shows alkalosis but otherwise unremarkable -Replace potassium with IV given concerns for dysphagia -PT/OT/speech consultations -Cultures reviewed and Klebsiella noted on culture however colony counts are 125,000 which is not consistent with acute infection -Patient also with chronic indwelling [place] I suspect she has chronic pyuria/bacteriuria -Hold on antibiotics -I do not think this is contributing to her above issues -Check TSH -Check tox screen -Continue home medications as long she stay for p.o. intake -Patient is already on statin, aspirin, Eliquis -SOC consultation after MRI obtained -?LP Charges/Coding Visit Charges Inpatient E&M: 17321 Init Hosp L3
--- NOTE | 2022-01-21 14:12 | MRI_ITS ---
STUDY: MRI BRAIN WITHOUT CONTRAST REASON FOR EXAM: Female, 71 years old. facial droop TECHNIQUE: Standardized multiplanar fat and water weighted pulse sequences were obtained. COMPARISON: 12/21/2021 MRI. FINDINGS: No evidence for shift of midline structures, mass effect or compression of ventricles. No acute intracranial hemorrhage. No abnormal intracranial fluid collections. No abnormal restricted diffusion to suggest acute or subacute ischemic infarction. Scattered and confluent foci of T2/FLAIR hyperintensity seen in the periventricular and subcortical white matter likely chronic small vessel disease small chronic infarct in the right cerebellum. Chronic ischemia of the brain stem. Exam is significantly patient motion degraded MRI/Brain without Contrast IMPRESSION: No evidence for acute or subacute ischemic infarction. No evidence for intracranial mass, acute hemorrhage or hydrocephalus. Chronic small vessel disease. Significantly patient motion degraded MRI examination of the brain Electronically Signed: Cordell Fairbanks MD at 16:28 EDT ,
[2022-01-21] MEDS: Potassium Chloride 10mEq/100mL 10 MEQ/100 ML IV.SOLN. 100 MEQ IV BOLUS ×4 (16:10→19:24)
--- NOTE | 2022-01-21 16:36 | CT_ITS ---
STUDY: CT Chest W/O Contrast Injection 01/21/2022 7:03 PM REASON FOR EXAM: Female, 71 years old. abnormal CXR Individualized dose optimization techniques were used for this CT. TECHNIQUE: Transaxial imaging was performed withoutIV contrast material. COMPARISON: 07/30/2016. FINDINGS: There are degenerative changes of the shoulders. There is no pneumothorax. There are bilateral pleural effusions. There is bilateral pneumonia. The thyroid is heterogenous. It contains nodules. This should be further evaluated with ultrasound. This can be performed as an outpatient. There are calcifications of the coronary arteries. Normal mediastinum. Normal hilar regions. Normal pulmonary arteries. There is atherosclerotic calcification of the aortic arch with tortuosity and elongation of the aortic arch and descending thoracic aorta. There are multi-level degenerative changes of the thoracic spine. Since the prior CT scan, there has been development of a compression deformity of L1. There are no acute findings of the upper abdomen. CT/Chest without Contrast IMPRESSION: No demonstrated pulmonary embolism or arterial dissection. There are bilateral pleural effusions. There is bilateral pneumonia. There are compression deformities of the spine. These are age-indeterminate. MRI could further evaluate if of concern. Electronically Signed: Guerrero Vickers MD at 19:06 EDT ,
--- NOTE | 2022-01-21 16:43 | TELEMED_ITS ---
[facility] has confirmed receipt of a request for visit. This document confirms receipt of the order initiating the consult. To find the results of the consultation, please view the patient's reports for the scanned Telemed Consult.
[2022-01-21 17:50] LABS: Bedside Glucose 129 mg/dL (74-106)
[2022-01-21] MEDS: hydrALAZINE 20 MG/ML Vial 10 MG IV (18:44)
[2022-01-21 21:39] LABS: Thyroid Stim Hormone (TSH) 1.11 uIU/mL (0.358-3.74); Troponin-I HS 68 pg/mL (3.0-54.0)
[2022-01-21] MEDS: Zinc Oxide 30gm Tube 1 APPLIC TOPICAL (22:34)
[2022-01-21] MEDS: Mupirocin Ointment 22gm Tube 1 APPLIC TOPICAL (22:35)
[2022-01-21] MEDS: 0.9% Saline Lock 10 ML Syringe IV (22:38)
[2022-01-22] VITALS (13 sets, daily range): BP systolic 104–161; BP diastolic 47–99; PULSE 83–104; RESP 16–18; TEMP 36.4–37.1; O2SAT 89–99
[2022-01-22 00:10] LABS: Vitamin B12 576 pg/mL (211-911)
[2022-01-22 00:40] LABS: Bedside Glucose 101 mg/dL (74-106)
--- NOTE | 2022-01-22 03:48 | NURSING ---
pt O2 saturation keeps going down to 89% on RA then goes back up to 91%. Pt has hx of obstructive sleep apnea, so this RN put pt on 2L O2 for during sleep/nap coverage. Pt O2 saturation is 93-94% on 2L now. Will continue to monitor.
[2022-01-22] MEDS: Zinc Oxide 30gm Tube 1 APPLIC TOPICAL ×3 (05:19→20:40)
[2022-01-22 06:01] LABS: Bedside Glucose 98 mg/dL (74-106)
--- NOTE | 2022-01-22 09:09 | WOUNDNOTE ---
wound photo: left lower leg
--- NOTE | 2022-01-22 09:13 | CASEMGMT ---
[facility]charge [facility] Paramedic Rhea Maharaj/[facility] [employer] sent over updates to [facility] Rhea Rivas Discharge [facility] Paramedic
[2022-01-22] MEDS: Pilocarpine HCl 5 MG Tablet PO ×2 (10:05→14:36)
[2022-01-22] MEDS: Ferrous Sulfate 325 MG Tablet PO (10:05)
[2022-01-22] MEDS: Cholecalciferol (VIT D3) 25 MCG TABLET (1,000 UNITS) 50 MCG PO (10:05)
[2022-01-22] MEDS: Magnesium Chloride 64 MG Delay Rel.Tablet 128 MG PO (10:06)
[2022-01-22] MEDS: Multivitamins,Therapeutic Tablet 1 TABLET PO (10:06)
[2022-01-22] MEDS: Potassium Chloride Oral Tablet 20 MEQ PO (10:06)
[2022-01-22] MEDS: Aspirin E.C. 81 MG Tablet PO (10:07)
[2022-01-22] MEDS: Furosemide 40 MG/4 ML Vial IV ×2 (10:07→17:23)
[2022-01-22] MEDS: Escitalopram Oxalate 10 MG Tablet 5 MG PO (10:07)
[2022-01-22] MEDS: Tolterodine Tartrate 4 MG CAP.SA PO (10:07)
[2022-01-22 11:29] LABS: Absolute Lymphocyte Count 0.83 X10^3/uL (0.83-4.51); Absolute Neutrophil Count 5.7 X10^3/uL (2.0-7.7); Basophil# 0.01 X10^3/uL; Basophil% 0.1 % (0-1); Hematocrit 35.7 % (37-47); Hemoglobin 11.3 g/dL (12.0-15.0); Lymphocyte # 0.83 X10^3/ul (0.83-4.51); Lymphocyte % 11.4 % (19-41); Mean Corp Hgb Conc 31.7 g/dL (32-36); Mean Corpuscular Hgb 29.9 pg (27.0-32.0); Mean Corpuscular Volume 94.4 fL (81-99); Mean Platelet Vol. 12.4 fl (6.2-12.0); Monocyte# 0.65 X10^3/uL; Monocyte% 8.9 % (0-10); NRBC Flagged by Analyzer 0 % (0-5); Neutrophil # 5.73 X10^3/uL (2.7-7.7); Neutrophil % 78.9 % (47-70); POSITIVE MORPHOLOGY YES; Platelet Count 240 K/mm3 (150-450); RBC Distribution Width CV 19.5 % (11.6-14.6); RBC Distribution Width SD 68.2 fl (35.1-43.9); Red Blood Count 3.78 M/mm3 (4.2-5.4); White Blood Count 7.3 K/mm3 (4.4-11.0)
[2022-01-22 11:32] LABS: Differential Indicated SCAN CRITERIA MET
--- NOTE | 2022-01-22 11:58 | PN.HOSP_ITS ---
Documented by User: Amanda Shepard END FINDER FORMING DEPARTMENT, END [employer]ER [employer]MING DEPARTMENT-C 01/22/22 12:28 Subjective Subjective Patient seen and examined. More alert today. Intermittently responds to questions appropriately. Unable to state complaints. Appears comfortable. Objective Data Objective Data Vital Signs: Vital Signs Temp Pulse Resp BP Pulse Ox O2 Del Method O2 Flow Rate 97.7 F L 99 16 148/99 H 99 Nasal Cannula 2 01/22/22 10:03 01/22/22 10:03 01/22/22 10:03 01/22/22 10:03 01/22/22 10:03 01/22/22 10:03 01/22/22 10:03 Oxygen Flow Rate (L/min) 2 Oxygen Delivery Method Nasal Cannula Weight: 200 lb 13.458 oz Body Mass Index (BMI) 34.4 Intake & Output: Intake and Output for Last 24 Hours 01/20/22 01/21/22 01/22/22 23:59 23:59 23:59 Intake Total 396.67 / 396.67 Output Total 500 / 500 200 / 200 Balance -103.33 / -103.33 -200 / -200 Medical Nutrition Assessment Dietitian: Malnutrition Criteria Met Start: 01/21/22 15: 44 Freq: Status: Active Protocol: Document 01/21/22 15:44 RMA (Rec: 01/21/22 15:44 RMA [id number]) Nutrition Malnutrition Evidence of Malnutrition Exists Yes Malnutrition (severe): Chronic Evidenced By Suboptimal Energy Intake ( Severe),Weight Loss (Severe) Intake Problem Increased Nutrient Needs (specify) Etiology for protein related to wound healing Signs/Symptoms as evidenced by coccyx pressure injury and LLE stasis ulcer Status Active Problem Clinical Problem Chronic Disease or Condition Related Malnutrition Etiology Severe protein-calorie malnutrition in the context of chronic disease and debility related to suspected inadequate oral intake; difficulty swallowing Signs/Symptoms as evidenced by ~13-15% wt loss x past 6 months and currently NPO due to failed dysphagia screening Status Active Problem Recommendation Dietitian Recommendations/Changes When deemed safe for PO nutrition, recommend advance diet as tolerated to 1800 calorie/consistent carbohydrate; cardiac with fluid restriction as per provider order and consistency and texture as per ON SITE SOIL EVALUATOR. Consider TF support if pt unsafe for PO and remains NPO greater than 2-3 days. Pt will benefit from Abhilash for wound healing as able to deliver either PO or enterally . Offer ONS as appropriate once able to take PO nutrition. Lab / Micro Data Result Diagrams: 01/22/22 11:00 01/22/22 11:00 Labs: Laboratory Results - last 24 hr 01/21/22 11:20: Ammonia 15.0 01/21/22 11:20: Potassium 3.1 L 01/21/22 11:23: Lactic Acid 1.2 01/21/22 12:00: Urine Color Yellow, Urine Clarity Sl. Cloudy, Urine pH 7.0, Ur Specific Burr 1.010, Urine Protein Negative, Urine Glucose (UA) Normal, Urine Ketones 50 H, Urine Occult Blood 10 H, Urine Nitrite Positive H, Urine Bilirubin Negative, Urine Urobilinogen Normal, Ur Leukocyte Esterase 100 H, Urine RBC 0-5 SEEN, Urine WBC 10-25 SEEN, Ur Squamous Epith Cells 0-5 SEEN, Urine Bacteria 2+, Urine Mucus 0 SEEN 01/21/22 17:30: POC Glucose 129 H 01/21/22 20:50: Troponin I High Sens 68 H, TSH 1.11 01/21/22 20:50: Vitamin B12 576 01/22/22 00:01: POC Glucose 101 01/22/22 05:23: POC Glucose 98 01/22/22 11:00: WBC 7.3, RBC 3.78 L, Hgb 11.3 L, Hct 35.7 L, MCV 94.4, MCH 29.9, MCHC 31.7 L, RDW Std Deviation 68.2 H, RDW Coeff of Merly 19.5 H, Plt Count 240, MPV 12.4 H, Immature Gran % (Auto) 0.700, Neut % (Auto) 78.9 H, Lymph % (Auto) 11.4 L, Jennings % (Auto) 8.9, Eos % (Auto) 0.0, Baso % (Auto) 0.1, Absolute Neuts (auto) 5.7, Absolute Lymphs (auto) 0.83, Nucleated RBC % 0 Micro: Microbiology 01/21/22 12:00 Urine, Clean Catch Urine Culture - Preliminary GNR 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 N.B. : The above Results were Read Back by Bandar Mckeon MD to [facility] and understanding confirmed on 01/21/2022 11:53:17 (ET). Electronically Signed: Bandar Mckeon MD at 11:54 EDT , ADDENDUM: 01/21/22 1201 IMPRESSION: Calcific plaque at the origin of both the right and left internal carotid arteries causing less than 50% luminal narrowing. N.B. : The above Results were Read Back by Bandar Mckeon MD to [facility] and understanding confirmed on 01/21/2022 11:53:17 (ET). Electronically Signed: Bandar Mckeon MD at 11:54 EDT , Chest X-Ray 01/21/22 12:20 IMPRESSION: 1. Chronically small lung volumes, right greater than left, which is unchanged from the prior study. There is persistent interstitial scarring in the bilateral lung bases and in the right midlung field. Nodular/tubular densities of the right midlung field not seen on the prior study and appear to be related to pulmonary vasculature and underlying thickening of the interlobar fissure. 2. Noncontrast CT of the chest can be obtained for further assessment if clinically indicated. Electronically Signed: Jose Murray MD at 13:14 EDT , Brain MRI 01/21/22 14:12 IMPRESSION: No evidence for acute or subacute ischemic infarction. No evidence for intracranial mass, acute hemorrhage or hydrocephalus. Chronic small vessel disease. Significantly patient motion degraded MRI examination of the brain Electronically Signed: Cordell Fairbanks MD at 16:28 EDT , Chest CT 01/21/22 16:36 IMPRESSION: No demonstrated pulmonary embolism or arterial dissection. There are bilateral pleural effusions. There is bilateral pneumonia. There are compression deformities of the spine. These are age-indeterminate. MRI could further evaluate if of concern. Electronically Signed: Guerrero Vickers MD at 19:06 EDT , Physical Exam Const alert Orientation / Consciousness: confused HEENT normocephalic Mouth: dry mucous membranes Eyes PERRL, EOMs intact bilaterally and conjunctivae normal Neck no lymphadenopathy Resp clear to auscultation bilaterally Auscultation: diminished lung sounds Cardio regular rate and no murmurs Cardio Narrative: A. fib Peripheral Pulses: pulses 2+ throughout GI normal to inspection, nondistended, normoactive bowel sounds, non-tender and non-distended Extremity normal to inspection General Extremity: edema bilateral upper extremity and lower extremity Skin no rashes or lesions noted Lesions: no lesions Rashes: no rashes Trauma: no lacerations or abrasions Neuro CN's II-XII intact bilaterally, no focal motor deficits, no sensory deficits noted and deep tendon reflexes 2+ bilaterally Neuro Narrative: No focal neurologic deficits. Difficulty following commands. Altered mental status. Psych Psych Narrative: fluctuant Assessment & Plan Assessment/Plan (1) Altered mental status: PLAN: Plan 1.? Altered mental status-MRI 01/20/2022 without stroke.? Patient on aspirin, Eliquis, statin at baseline.? Repeat brain CT on admission with chronic changes.? Head and neck CTA with less than 50% bilateral internal carotid artery.? PT/OT/ST.? Repeat MRI of brain again without acute process.? Recent admission with no evidence of infectious or metabolic etiology.? Repeat urine and blood cultures pending. [facility] neurology consulted. Underwent EEG which showed generalized background slowing. No epileptiform discharges. Neurology recommending lumbar puncture with labs, urine drug screen which are pending. Speech therapy is following with plans for swallow study in a.m. 2. E. coli/Klebsiella bacteriuria-previous culture with low colony count. Repeat urine culture pulmonary growing greater than 100,000 GNR. Prior culture with ESBL and Klebsiella. IV Invanz pending final culture. ID consult. 3. Chronic hypoxic respiratory failure secondary to acute on chronic heart failure with preserved ejection fraction, complicated by underlying severe pulmonary hypertension-on 2 L nasal cannula at baseline.? Currently on baseline home O2 requirements. 4. Chronic heart failure with preserved ejection fraction-echocardiogram 01/16/22 with EF 65%, mild to moderate mitral valve insufficiency, moderately severe tricuspid valve insufficiency, right ventricular systolic pressure estimated to be 58 mmHg.? Recently diuresed with Lasix drip.? Continue Lasix 40 mg twice daily.? Balbir wraps bilateral lower extremities.? Strict I&O.? Daily weight. 5. Left anterior barrientos stasis ulcer-MRSA on culture. Topical Bactroban X1 Week.? Continue dressing changes as ordered. 6. Severe pulmonary hypertension-continue follow-up with pulmonary medicine. 7. Chronic asthma-no exacerbation.? 8. Type 2 diabetes mellitus-continue home regimen.? Accu-Cheks with sliding scale insulin. 9. Hypertension-stable, continue current regimen. 10. Hyperlipidemia-continue statin. 11. Chronic debility-PT/OT.? Resides at SNF.? Not motivated to work with therapy. 12. Depression-on Lexapro. 13.? Hypokalemia-replaced per protocol. DVT prophylaxis- Eliquis. This patient was seen by ROCHELLE Bower under the supervision of Dr. Garcia. Time spent examining patient, reviewing data and subsequent management of care: 17 minutes Documented by User: Dr. Ricardo Garcia MD 01/22/22 13:50 Objective Data Lab / Micro Data Result Diagrams: 01/22/22 11:00 01/22/22 11:00 Assessment & Plan Assessment/Plan (1) Altered mental status: Charges/Coding Addendum Addendum: Addendum: Dr. Garcia I personally examined the patient and reviewed the chart. I agree with the above. 71-year-old female presents from the alf for the third time in several days. Initially she was here for what was felt to be heart failure exacerbation placed on Lasix drip and discharged to the alf. She was brought back to the hospital within 4 hours for concern for stroke she had an MRI which was negative so she was discharged back to the alf on Friday and then she presented back to the hospital on Friday with concerns for stroke because she had a left facial droop which was not obvious on exam. MRI again was negative. We will proceed with an EEG as well as a lumbar puncture. Her initial urine from her previous admission just demonstrated colonization however repeat urine sample and urine culture demonstrates a UTI with greater than 100,000 CFU's. The previous culture did grow ESBL Klebsiella so she is started on Invanz. Clinical time spent in all aspects of patient care: 20 minutes Visit Charges OBSV E&M: 41771 Subsequent observation care L3
[2022-01-22 12:04] LABS: Differential Comment SCANNED
[2022-01-22 12:05] LABS: Anisocytosis RARE
[2022-01-22 12:16] LABS: Anion Gap 9 (5-15); BUN 18 mg/dL (7-18); BUN/Creat Ratio 35.5 RATIO (10-20); Calcium,Total 8.2 mg/dL (8.5-10.1); Chloride 95 mmol/L (98-107); Creatinine, Serum 0.51 mg/dL (0.55-1.02); EST Glomerular Filtration Rate 126 mL/min (>60); Est Glom Filt Rate - Afr Amer 153 mL/min (>60); Estimated Creatinine Clearance 43.27 ml/min; Glucose 137 mg/dL (74-106); Magnesium 1.8 mg/dL (1.6-2.6); Phosphorus 2.3 mg/dL (2.5-4.9); Potassium 3.5 mmol/L (3.5-5.1); Sodium Level 142 mmol/L (136-145); Thyroid Stim Hormone (TSH) 1.12 uIU/mL (0.358-3.74)
--- NOTE | 2022-01-22 13:10 | RAD_ITS ---
PROCEDURE: Fluoroscopic guided Lumbar Puncture. DATE: 01/22/2022. CLINICAL INDICATION: Encephalopathy. Facial droop. PHYSICIAN: Bandar Mckoen M.D. MEDICATIONS: 1% lidocaine administered subcutaneously for local anesthesia. ACCESS SITE: Lower posterior back. NEEDLE: 22-gauge spinal needle. SPECIMEN: Approximately 13 mL clear]CSF fluid. FLUOROSCOPY TIME (if supplied): (0:36) minutes/seconds COMPLICATIONS: None immediate. The risks, benefits, and alternatives to the procedure were explained to the patient. The specific risks of bleeding, infection, and neurovascular injury were detailed and accepted. Witnessed informed consent was obtained. The patient was placed on the fluoroscopic table in the prone position. The level for needle entry was determined and marked. The overlying skin was cleaned and prepped in the usual sterile fashion. 2% lidocaine was administered subcutaneously for local anesthesia. Under fluoroscopic guidance a 22-gauge spinal needle was advanced. The thecal sac was entered at the L3- L4 vertebral level. The inner stylet was removed. There was spontaneous flow of clear CSF fluid. The patient was placed in a reversed Trendelenburg position. Approximately 13 mL of cerebrospinal fluid was collected using gravity. The specimen was collected and submitted to the laboratory for further evaluation. The needle was withdrawn,. Hemostasis was achieved and a sterile dressing placed. The patient tolerated the procedure well without any immediate complications. The patient was placed supine with head elevated and returned to the floor in stable condition. RAD/Dx Lumbar Puncture w/IMG Guide IMPRESSION: Successful fluoroscopic-guided lumbar puncture. Electronically Signed: Bandar Mckeon MD at 14:26 EDT ,
[2022-01-22] MEDS: Lidocaine 2% (5ml sdv) 5 ML VIAL.MPF INFILT (13:30)
--- NOTE | 2022-01-22 13:45 | CYSPIN_PTH ---
PATIENT: GARCÍA BURROWS LOC: [facility] U#:[id number] AGE/SX: 71/F ROOM: [facility] RE01/21/[address]: Dr. Ricardo Garcia MD : 1950 BED: 1 DIS: 01/23/2022 SPEC #: [id number] RECD: 01/23/22 06:43 STATUS: STEPHY DUBOSE #: [id number] MARI: 01/22/22 13:[address]: Ricardo Garcia DEPT: CYTOLOGY RECD BY: Maricruz Armstrong ENTERED: 01/23/22 06:43 SP TYPE: CYSPIN FL OTHR DR: Dr. Odessa Kramer, MD Imer Rivera Dr. Tissues: Cerebrospinal Fluid Procedures: Pap Stain (control) Special Stain Group II Cytospin Fluid HEADER OPERATION: Lumbar puncture PRE-OP DIAGNOSIS: Encephalopathy, facial droop TISSUE SUBMITTED: Cerebrospinal fluid for cytology DIAGNOSIS CYTOLOGY Cerebrospinal fluid for cytology (cytospin): Negative for malignant cells. See comment. AM:rosa 01/23/2022 COMMENT The specimen contains blood. Clinical correlation is suggested. CYTOLOGY STUDY Slides are reviewed. CYTOLOGY GROSS Received is 1 ml of clear colorless fluid labeled with the patient's name and and designated per the requisition as cerebrospinal fluid. Submitted for cytology preparation. / rosa 01/22/2022 TC:5 CPT: 59703
[2022-01-22 14:10] LABS: Cytology, Body Fluid / CSF SEE PATHOLOGY REPORT
[2022-01-22 14:51] LABS: Body Fluid Mononuclear WBC # 0.001 10^3/uL
[2022-01-22 15:10] LABS: Glucose Spinal Fluid 82 mg/dL (40-75)
[2022-01-22 15:10] LABS: Appearance CSF (character) CLEAR (Clear); Auto B Fluid Analyzer BKGD Ct COUNTS W/IN LIMITS (W/IN LIMITS); CSF Color COLORLESS (Colorless); Tested Tube # 4
[2022-01-22 15:11] LABS: RBC Count, Spinal Fluid 20 /mm-3 (None seen)
[2022-01-22 15:15] LABS: White Count, CSF 0 /mm-3 (0 - 5)
[2022-01-22 15:23] LABS: Body Fluid QC Type(s) BF1Q,BF2Q
--- NOTE | 2022-01-22 15:47 | CHAPLAIN ---
Type of Pastoral Visit _x__ Initial Visit ___ Follow-up Visit ___ On-call Visit ___ General Patient Visit ___ Spiritual Assessment ___ Family Conference ___ Bereavement ___ Rapid Response ___ Code Blue ___ Other (describe below) Pastoral Care Referral From ___ Patient ___ Family ___ Nurse ___ Physician ___ Machine Wiper ___ Goring Cutter _x__ Other (describe below) Sacrament/Intervention _x__ Active listening ___ Anointing ___ Pentecostalism ___ Bereavement ___ Communion ___ Jennifer exploration ___ ___ Life review _x__ Prayer ___ Reconciliation ___ Sacrament of Sick _x__ Supportive presence ___ Wedding ___ Other (describe below) Pastoral Comments first attempt the patient and bed were out of the room and so a calling card was left; later returned to room and found patient there and awake; pt is able to follow conversation but has limited ability to speak full sentences; however pt did respond appropriately to questions and was clear in understanding; pt welcomed visit and the prayer; pt IV beeper continued to beep and call button utilized for assistance; sat at bedside and gave reassuring words of comfort and hope to pt
--- NOTE | 2022-01-22 16:01 | CASEMGMT ---
AMAIRANI NOLAND called brother Philippe to complete CELESTIN form as patient is confused. Brother Philippe willing to complete CELESTIN form over the phone. AMAIRANI NOLAND explained CELESTIN form to Philippe, he voiced understanding and gave telephone consent. Completed form filed in chart. Copy of form provided with patient and placed in discharge folder. Philippe had no further questions or concerns at this time.
[2022-01-22] MEDS: Loratadine 10 MG Tablet PO (20:39)
[2022-01-22] MEDS: Atorvastatin Calcium 20 MG Tablet PO (20:39)
[2022-01-22] MEDS: Famotidine 20 MG Tablet PO (20:40)
[2022-01-23] VITALS (9 sets, daily range): BP systolic 117–140; BP diastolic 62–89; PULSE 90–104; RESP 16–18; TEMP 36.3–36.7; O2SAT 93–96
[2022-01-23 05:04] LABS: Bedside Glucose 83 mg/dL (74-106)
[2022-01-23] MEDS: Zinc Oxide 30gm Tube 1 APPLIC TOPICAL ×2 (06:11→13:58)
[2022-01-23 06:35] LABS: Bedside Glucose 85 mg/dL (74-106)
[2022-01-23 06:57] LABS: Absolute Lymphocyte Count 1.01 X10^3/uL (0.83-4.51); Absolute Neutrophil Count 3.3 X10^3/uL (2.0-7.7); Basophil# 0.01 X10^3/uL; Basophil% 0.2 % (0-1); Hematocrit 34.2 % (37-47); Hemoglobin 10.7 g/dL (12.0-15.0); Lymphocyte # 1.01 X10^3/ul (0.83-4.51); Lymphocyte % 20.2 % (19-41); Mean Corp Hgb Conc 31.3 g/dL (32-36); Mean Corpuscular Volume 95.8 fL (81-99); Monocyte# 0.67 X10^3/uL; Monocyte% 13.4 % (0-10); NRBC Flagged by Analyzer 0 % (0-5); Neutrophil # 3.28 X10^3/uL (2.7-7.7); Neutrophil % 65.8 % (47-70); Platelet Count 218 K/mm3 (150-450); RBC Distribution Width CV 18.1 % (11.6-14.6); RBC Distribution Width SD 63.6 fl (35.1-43.9); Red Blood Count 3.57 M/mm3 (4.2-5.4)
[2022-01-23 07:34] LABS: Anion Gap 8 (5-15); BUN 17 mg/dL (7-18); BUN/Creat Ratio 43.9 RATIO (10-20); Calcium,Total 8.2 mg/dL (8.5-10.1); Chloride 98 mmol/L (98-107); Creatinine, Serum 0.39 mg/dL (0.55-1.02); EST Glomerular Filtration Rate 173 mL/min (>60); Est Glom Filt Rate - Afr Amer 209 mL/min (>60); Estimated Creatinine Clearance 43.27 ml/min; Glucose 98 mg/dL (74-106); Potassium 3.9 mmol/L (3.5-5.1); Sodium Level 141 mmol/L (136-145)
[2022-01-23 08:19] LABS: Amphetamine Urine VISTA NEGATIVE (<1000 ng/mL); Barbiturate Urine VISTA NEGATIVE (< 200 ng/mL); Benzodiazepine Urine VISTA NEGATIVE (< 200 ng/mL); Cocaine Urine VISTA NEGATIVE (< 300 ng/mL); Ecstacy Urine VISTA NEGATIVE (< 500 ng/mL); Methadone Urine VISTA NEGATIVE (< 300 ng/mL); PCP Urine VISTA NEGATIVE (< 25 ng/mL); THC Urine VISTA NEGATIVE (< 50 ng/mL); Vista UDS pH Range 7
[2022-01-23] MEDS: Furosemide 40 MG/4 ML Vial IV (09:03)
[2022-01-23] MEDS: 0.9% Saline Lock 10 ML Syringe IV (09:03)
[2022-01-23] MEDS: Potassium Chloride Oral Tablet 20 MEQ PO (09:04)
[2022-01-23] MEDS: Metoprolol Tartrate 25 MG Tablet 12.5 MG PO (09:04)
[2022-01-23] MEDS: Cholecalciferol (VIT D3) 25 MCG TABLET (1,000 UNITS) 50 MCG PO (09:04)
[2022-01-23] MEDS: Escitalopram Oxalate 10 MG Tablet 5 MG PO (09:04)
[2022-01-23] MEDS: Magnesium Chloride 64 MG Delay Rel.Tablet 128 MG PO (09:04)
[2022-01-23] MEDS: Pilocarpine HCl 5 MG Tablet PO ×2 (09:05→11:36)
--- NOTE | 2022-01-23 10:21 | WOUNDNOTE ---
Pt is currently off the unit for testing. dressing to the left leg and sacrum were changed yesterday and are not sure to be changed again until 01/25/22. will monitor.
--- NOTE | 2022-01-23 10:24 | SP.MBSS_ITS ---
Modified Barium Swallow - Patient Information Study Date: 01/23/22 Study Time: 09:30 Direct Billable Minutes: 90 Total Minutes procedure & reportin Diagnosis: Aphasia (R47.01), Encephalopathy (G93.40) Referring Physician: Ricardo Garcia Reason for Referral: Objectively assess swallow function, risk for aspiration, and determine recommendations for least restrictive diet textures and compensatory strategies to improve safety of swallow. Medical History: The patient is a 67-year-old female with PMH including HTN, DM Type 2, HLD, a sthma, GERD, hypoxia, hip fx (SEE EMR for full PMH). She presented to [facility] ED 01/21/2022 due to left facial droop and decreased responsiveness. Patient was recently discharged 01/20/2022 following work-up for altered mental status. Infectious and metabolic work-up at that time unremarkable and MRI of brain negative for acute stroke. She was discharged to SNF. Patient noted at nursing facility to have facial droop in the morning of 01/21/2022 and squad was called. Brain CT on admission without acute process. Patient was admitted for further neurologic evaluation. Speech is garbled and she does appear to have left facial droop. Referred for speech consult to assess concern for swallowing difficulty. Pt has been managed for encephalopathy during the stay. Today, she presents with somewhat improved mental status including intermittent appropriate verbal responses and improved ability to follow commands. The patient has remained NPO per speech therapy recommendations due to impaired swallowing, attention to task, and concerns for aspiration with oral intake. MBS study recommended to further assess concern for aspiration and provide recommendations for least restrictive diet textures. Hx of dysphagia w/ 06/22/2018 MBS revealing moderate to severe oropharyngeal dysphagia w/ trace SILENT aspiration of thin liquids (grade III) during sequential ingestion; intermittent penetration w/ inconsistent ejection during thin liquid trials. Recommendations for Regular textures / Thin liquids with the following compensatory strategies and aspiration precautions: Small bites, Small sips, Double swallow/multiple swallows as needed to assist w/ pharyngeal clearance, liquid chaser, Seated upright at 90 degrees during PO intake, Remain upright for 30-60 minutes post meal (GERD precaution). Current Diet Ordered: NPO - ok for ice chips and meds crushed in puree Dentition: Edentulous Mental Status: Impaired Respiratory Status: Oxygenating on 2L/M nasal cannula - Penetration-Aspiration Scale Penetration-Aspiration Scale: OBJECTIVE ASSESSMENT OF SWALLOW FUNCTION (QUANTITATIVE ? PER TRIAL): PENETRATION / ASPIRATION SCALE (PINEDA): 1 = does not enter airway 2 = enters airway/above vocal folds/ejected 3 = enters airway/above vocal folds/not ejected 4 = enters airway/contacts vocal folds/ejected 5 = enters airway/contacts vocal folds/not ejected 6 = enters airway/below vocal folds/ejected 7 = enters airway/below vocal folds/not ejected despite effort 8 = enters airway/below vocal folds/no effort VIDEOFLOROSCOPIC SCALE SCORE (PINEDA): Grade I = aspiration of material that has penetrated into the laryngeal vestibule, intact cough reflex Grade II = aspiration < 10 % of the bolus, intact cough reflex Grade III = aspiration of < 10 % of the bolus, reduced cough reflex or aspiration of > 10 % of the bolus, intact cough reflex Grade IV = aspiration of > 10 % of the bolus, reduced cough reflex - Penetration-Aspiration Scale Score Thin Liquid via teaspoon Comment: Could not score due to the patient moving forward and tucking chin during the swallow despite verbal and tactile cues to remain upright for the study. Laryngeal vestibule appeared clear after the trial was completed, but the COMPUTER OPERATIONS SUPERVISOR is unable to definitely rule out presence of aspiration. Thin Liquid via teaspoon Trial 2 Result: 1= does not enter airway Thin Liquid via small single sip from cup Comment: Could not score due to the patient moving forward and tucking chin during the swallow despite verbal and tactile cues to remain upright for the study. Laryngeal vestibule appeared to have trace residues above the vocal folds after the swallow. The COMPUTER OPERATIONS SUPERVISOR is unable to definitely rule out presence of aspiration. [place] Thick Liquid via teaspoon Comment: Could not score due to the patient moving forward and tucking chin during the swallow despite verbal and tactile cues to remain upright for the study. Laryngeal vestibule appeared clear after the trial was completed, but the COMPUTER OPERATIONS SUPERVISOR is unable to definitely rule out presence of aspiration. [place] Thick Liquid via teaspoon Trial 2 Result: 3= enters airways/above vocal folds/not ejected Honey Thick Liquid via teaspoon Comment: Unable to score as the patient refused to swallow the trial despite verbal encouragement. She shook her head no. When COMPUTER OPERATIONS SUPERVISOR reached to grab a washcloth for the patient to spit the trial into, she swallowed (fluoroscopy was not on). Coughing occurred immediately following the trial. No residue in the laryngeal vestibule after coughing. The COMPUTER OPERATIONS SUPERVISOR could not definitively rule out aspiration. Pudding via teaspoon Comment: Unable to score as the patient refused to swallow the trial despite verbal encouragement. She shook her head no. The COMPUTER OPERATIONS SUPERVISOR cleared the bite from the patient's oral cavity with a spoon. - Oral Phase Labial Seal: Escape beyond mid-chin Tongue Control During Bolus Hold: Posterior escape of less than half of bolus Bolus Transport/Lingual Motion: Delayed initiation of tongue motion Oral Residue: Majority of bolus remaining - Pharyngeal Phase Initiation of Pharyngeal Swallow: Bolus head in pyriforms Soft Palate Elevation: No bolus between soft palate and pharyngeal wall Laryngeal Elevation: Partial superior movement thyroid cart/partial apprx aryt- epig petiole Anterior Hyoid Excursion: Partial anterior movement Epiglottic Movement: Partial inversion Laryngeal Vestibule Closure at Height of Swallow: Incomplete; narrow column of air/contrast in laryngeal vestibule Pharyngeal Stripping Wave: Present - diminished Pharyngoesophageal Segment Opening: Parital distension and partial duration; parital obstruction of flow Tongue Base Retraction: Narrow column of contrast between tongue base & post. pharyngeal wall Pharyngeal Residue: Collection of residue within or on pharyngeal structures - Diagnosis/Impression Diagnosis: Moderate-severe oropharyngeal phase dysphagia (R13.12) Impression: The oral phase is marked by... -Decreased bolus control with premature posterior loss of thin liquid by tsp to the pyriform sinuses prior to swallow onset. -Delayed tongue initiation for anterior-posterior bolus transport. -Mild to moderate oral residues after the initial swallow, a majority of the residue clears with the patient initiating an additional swallow. The pharyngeal phase is marked by... -Decreased airway closure during the swallow due to decreased laryngeal elevation, decreased anterior hyoid excursion, and partial epiglottic inversion. -Trace-mild pharyngeal residue after the swallow due to decreased pharyngeal contraction. -Laryngeal penetration of nectar thick liquid by tsp without full ejection from the laryngeal vestibule. The patient is at increased risk for aspiration after the swallow with contrast remaining in the laryngeal vestibule. Could not definitely rule out aspiration on a majority of trials due to the patient frequently tucking chin and leaning forward despite max cues from COMPUTER OPERATIONS SUPERVISOR and radiology receptionist. Additionally, the patient has a history of SILENT aspiration of sequential sips of thin liquid. - Recommendations Comment: Study inconclusive due to limited trials completed, difficulty scoring trials due to patient's posture consuming trials despite max verbal/visual/tactile cues, and pt refusal with certain trials. Will consider the patient for diet advancement after further trials of oral intake at bedside. SEE dysphagia treatment to follow this study for diet recommendations and recommended aspiration precautions. Recommend Repeat Modified Barium Swallow: TBD - Would consider repeat MBS study only if improved mental status as the patient had difficulty following commands to participate. Need for Skilled Speech Therapy Services: Yes Comment: Will recommend the patient for continued dysphagia therapy for ongoing assessment of swallow function and to consider the patient for diet advancement with trials of oral intake at bedside. Education Completed: 1. Described result of evaluation. - Image Count: [phone] - Status Active ST Patient: Active - Contact Information [facility] Speech Therapy:: Lana Barr M.A. [facility]-COMPUTER OPERATIONS SUPERVISOR Speech-Language Pathologist [facility] [address] [place] [address] [email or web address] [phone] 01/23/22 11:29
--- NOTE | 2022-01-23 11:42 | CASEMGMT ---
Patient is ready for discharge back to [place]. SW asked RN to get a COVID test. Await orders. Pratima Aguiar EXHAUST EQUIPMENT OPERATOR NICHELLE
[2022-01-23 12:05] LABS: Bedside Glucose 107 mg/dL (74-106)
--- NOTE | 2022-01-23 13:23 | PCM.TXEXTCAR ---
Diet Diet Order/Speech Therapy: 01/23/22 10:46 Diet: Carbohydrate Controlled Food consistency:: Pureed Liquid Consistency:: Regular/Thin Is pt able to select menu?: No Diet Comments: TOTAL FEED WHEN FULLY alert, minimize distractions, cue swallow fast Routine Orders/Code Status Enema Type: Fleetz Enema Frequency: Daily PRN Suppository Type: Dulcolax 10mg Suppository Frequency: Daily PRN O2 Liters per Minute: 2-3 O2 Frequency: Continuous Keep PO Greater than or Equal to (%): 90 Routine Lab Work: - (Weekly CBC, BMP) Code Status: Full Code Wound(s) Coccyx: Wound Type: Pressure Injury Dressing Change: Mepilex LLE: Wound Type: Stasis Ulcer Dressing Change: AntiMicrobial (Aquacel AG, etc) Suggestions for Active Care Change Position every (hours): 2 Times a day to sit in chair: 3 Therapies Physical Therapy: Eval and Treat Occupational Therapy: Eval and Treat Speech Therapy: Eval and Treat Allergies/Procedures Done in Hospital Allergies lisinopril Adverse Reaction (Intermediate, Verified 01/21/22 11:20) Unknown penicillin G Adverse Reaction (Intermediate, Verified 01/21/22 11:20) Unknown exenatide [From [place]] Adverse Reaction (Unknown, Verified 01/21/22 11:20) Unknown Procedures: - (Modified barium swallow) Type of Care/Length of Stay Estimated LOS: More Than 30 Days Type of Care Needed: Intermediate Rehab Potential: Fair Prognosis: Fair Additional Orders/Day of Discharge H&P will serve as current which was dated: 01/21/22 Day of Discharge: 01/23/22 Dietary and Speech Recommendations Dietitian Recommendations/Changes: When deemed safe for PO nutrition, recommend advance diet as tolerated to 1800 calorie/consistent carbohydrate; cardiac with fluid restriction as per provider order and consistency and texture as per GYN PHYSICIAN. Consider TF support if pt unsafe for PO and remains NPO greater than 2-3 days. Pt will benefit from Abhilash for wound healing as able to deliver either PO or enterally. Offer ONS as appropriate once able to take PO nutrition. Speech Linguistic Eval Summary: Orientation: Pt not oriented to self, , or place when asked closed ended or yes/no questions. Auditory comprehension: Pt answered uh-huh or head nod yes for all yes/no questions. Her responses are not reliable at this time. She was unable to follow any simple 1 step commands and required [facility] assistance to follow commands. Verbal expression: No functional speech at this time. She answered uh-huh or head nod yes for all questions. The patient has severe cognitive-linguistic impairment at this time. Will follow daily to address functional deficits in verbal expression, auditory comprehension, and orientation skills. Discharge Plan Admission Admit Date/Time: 01/21/22 13:30 Primary Reason for Your Visit: Altered mental status Attending Provider: Ricardo Garcia Primary Care Provider: Imer Villanueva Consulting Providers: Odessa Kramer ; Philippe Mahajan Discharge Orders/Prescriptions Prescriptions: New ertapenem 1 gram Recon Soln 1 g IM Q24 5 Days Qty: 0 0RF Continued cholecalciferol (vitamin D3) 2,000 unit capsule 2,000 unit PO DAILY atorvastatin 20 mg tablet 20 mg PO QHS metformin 500 mg tablet 500 mg PO BID famotidine 20 mg tablet 20 mg PO QHS ferrous sulfate 325 mg (65 mg iron) tablet,delayed release (DR/EC) 325 mg PO DAILY polyethylene glycol 3350 [Miralax] 17 gram/dose powder 17 g PO DAILY Eliquis 5 mg Tablet 5 mg PO BID Label Comments: . pilocarpine HCl 5 mg tablet 5 mg PO TIDCM escitalopram oxalate [Lexapro] 5 mg Tablet 5 mg PO DAILY albuterol sulfate 90 mcg/actuation Hfa Aerosol Inhaler 2 puff INHALATION Q6H PRN (Reason: sob) multivitamin Tablet 1 tab PO DAILY sennosides [senna] 8.6 mg Tablet 8.6 mg PO BID oxybutynin chloride 15 mg tablet extended release 24hr 15 mg PO DAILY cetirizine [Zyrtec] 10 mg Tablet 10 mg PO QHS biotin 5 mg Capsule 5 mg PO DAILY bisacodyl 10 mg Suppository 10 mg WV DAILY PRN (Reason: Constipation) acetaminophen 325 MG tablet 650 mg PO TID aspirin [Adult Low Dose Aspirin] 81 mg tablet,delayed release (DR/EC) 81 mg PO DAILY potassium chloride 20 mEq tablet extended release 20 meq PO DAILY magnesium oxide 400 mg magnesium tablet 400 mg PO DAILY mupirocin 2 % Ointment 1 applic topical BID Qty: 0 0RF Protocol: *Topical Application Instructions APPLICATION INSTRUCTIONS: Apply to left barrientos wound twice daily metoprolol tartrate 25 mg Tablet 12.5 mg PO BID Qty: 0 0RF furosemide 40 mg Tablet 40 mg PO BIDLX Qty: 0 0RF acetaminophen 500 mg Tablet 500 mg PO Q6H PRN (Reason: pain/fever) mineral oil Enema 118 ml WV DAILY PRN (Reason: Constipation) Rx Instructions: discard any unused portion magnesium hydroxide [Milk of Magnesia] 400 mg/5 mL Suspension 30 ml PO DAILY PRN (Reason: Constipation) zinc oxide Ointment 1 applic TOPICAL TID Discontinued cephalexin 500 mg Capsule 500 mg PO Q12 4 Days Qty: 8 0RF Referrals / Follow Up: Devin Welch MD [STAFF PHYSICIAN] - Within 1 Month Imer Villanueva [Primary Care Provider] - In 1 Week Disposition Disposition (needs filled in before D/C Order can be placed): [facility] Facility
--- NOTE | 2022-01-23 13:46 | PCM.DC.SUM ---
Documented by User: Amanda Shepard NP, [employer]-C 01/23/22 13:56 Providers Date of Admission: 01/21/22 Date of Discharge: 01/23/22 Primary Care Physician: Imer Villanueva Consultations 01/22/22 01:11 Consult: Onc/Wound/supply specialist Routine Comment: Reason for Consult:: LLE stasis ulcer and sacral wound 01/22/22 12:20 Consult: Infectious Disease Routine Consulting Provider: Philippe Mahajan Reason for Consult: ESBL UTI EMERGENT Consult: No MD Notified: Yes Date Notified: 01/22/22 Time Notified: 13:20 Method of Notification: Text Reason For Visit: FACIAL DROOP Diagnosis Discharge Diagnosis (1) Encephalopathy: Status: Acute Code(s): G93.40 - Encephalopathy, unspecified Plan 1.? Altered mental status-MRI 01/20/2022 without stroke.? Patient on aspirin, Eliquis, statin at baseline.? Repeat brain CT on admission with chronic changes.? Head and neck CTA with less than 50% bilateral internal carotid artery.? PT/OT/ST.? Repeat MRI of brain again without acute process.? Recent admission with no evidence of infectious or metabolic etiology.? Repeat urine and blood cultures pending. [facility] neurology consulted. Underwent EEG which showed generalized background slowing. No epileptiform discharges. Neurology recommending lumbar puncture with labs, urine drug screen which are pending. Speech therapy is following with plans for swallow study in a.m. 2. E. coli/Klebsiella bacteriuria-previous culture with low colony count. Repeat urine culture pulmonary growing greater than 100,000 GNR. Prior culture with ESBL and Klebsiella. IV Invanz pending final culture. ID consult. 3. Chronic hypoxic respiratory failure secondary to acute on chronic heart failure with preserved ejection fraction, complicated by underlying severe pulmonary hypertension-on 2 L nasal cannula at baseline.? Currently on baseline home O2 requirements. 4. Chronic heart failure with preserved ejection fraction-echocardiogram 01/16/22 with EF 65%, mild to moderate mitral valve insufficiency, moderately severe tricuspid valve insufficiency, right ventricular systolic pressure estimated to be 58 mmHg.? Recently diuresed with Lasix drip.? Continue Lasix 40 mg twice daily.? Balbir wraps bilateral lower extremities.? Strict I&O.? Daily weight. 5. Left anterior barrientos stasis ulcer-MRSA on culture. Topical Bactroban X1 Week.? Continue dressing changes as ordered. 6. Severe pulmonary hypertension-continue follow-up with pulmonary medicine. 7. Chronic asthma-no exacerbation.? 8. Type 2 diabetes mellitus-continue home regimen.? Accu-Cheks with sliding scale insulin. 9. Hypertension-stable, continue current regimen. 10. Hyperlipidemia-continue statin. 11. Chronic debility-PT/OT.? Resides at SNF.? Not motivated to work with therapy. 12. Depression-on Lexapro. 13.? Hypokalemia-replaced per protocol. DVT prophylaxis- Eliquis. This patient was seen by ROCHELLE Bower under the supervision of Dr. Garcia. Time spent examining patient, reviewing data and subsequent management of care: 17 minutes Medications at Discharge Home Medications cholecalciferol (vitamin D3) 50 mcg (2,000 unit) capsule 2,000 unit PO DAILY SUPPLEMENT 10/07/18 atorvastatin 20 mg tablet 20 mg PO QHS CHOLESTEROL 05/24/20 metformin 500 mg tablet 500 mg PO BID DM 11/15/20 ferrous sulfate 325 mg (65 mg iron) tablet,delayed release 325 mg PO DAILY SUPPLEMENT 01/10/21 famotidine 20 mg tablet 20 mg PO QHS GERD 01/11/21 apixaban 5 mg tablet (Eliquis) 5 mg PO BID AFIB 03/09/21 escitalopram oxalate 5 mg tablet (Lexapro) 5 mg PO DAILY DEPRESSION 07/24/21 pilocarpine HCl 5 mg tablet 5 mg PO TIDCM DRY MOUTH 07/24/21 polyethylene glycol 3350 17 gram/dose oral powder (Miralax) 17 g PO DAILY CONSTIPATION 09/12/21 acetaminophen 325 mg tablet 650 mg PO TID PAIN AND FEVER 01/15/22 albuterol sulfate 90 mcg/actuation aerosol inhaler 2 puff inhalation Q6H PRN sob 01/15/22 aspirin 81 mg tablet,delayed release (Adult Low Dose Aspirin) 81 mg PO DAILY HEART HEALTH 01/15/22 biotin 5 mg capsule 5 mg PO DAILY HAIR SKIN AND NAILS 01/15/22 bisacodyl 10 mg rectal suppository 10 mg NV DAILY PRN Constipation 01/15/22 cetirizine 10 mg tablet (Zyrtec) 10 mg PO QHS ALLERGIES 01/15/22 magnesium oxide 400 mg PO DAILY SUPPLEMENT 01/15/22 multivitamin 1 tab PO DAILY SUPPLEMENT 01/15/22 oxybutynin chloride 15 mg tablet,extended release 24 hr 15 mg PO DAILY BLADDER 01/15/22 potassium chloride 20 mEq tablet,extended release 20 meq PO DAILY SUPPLEMENT 01/15/22 sennosides 8.6 mg tablet (senna) 8.6 mg PO BID CONSTIPATION 01/15/22 metoprolol tartrate 25 mg tablet 12.5 mg PO BID #0 tabs 01/19/22 mupirocin 2 % topical ointment 1 applic topical BID #0 grams 01/19/22 furosemide 40 mg tablet 40 mg PO BIDLX #0 tabs 01/20/22 acetaminophen 500 mg tablet 500 mg PO Q6H PRN pain/fever 01/21/22 magnesium hydroxide 400 mg/5 mL oral suspension (Milk of Magnesia) 30 ml PO DAILY PRN Constipation 01/21/22 mineral oil 118 ml NV DAILY PRN Constipation 01/21/22 zinc oxide 1 applic topical TID 01/21/22 ertapenem 1 gram solution for injection 1 g IM Q24 5 days #0 ea 01/23/22 Hospital Course Operations None Procedures Electroencephalogram Summary of Care Provided Hospital Course: 1.? Altered mental status-MRI 01/20/2022 without stroke.? Patient on aspirin, Eliquis, statin at baseline.? Repeat brain CT on admission with chronic changes.? Head and neck CTA with less than 50% bilateral internal carotid artery.? Repeat MRI of brain again without acute process.? Recent admission with no evidence of infectious or metabolic etiology.? Repeat blood culture with no growth.? [facility] neurology consulted.? Underwent EEG which showed generalized background slowing.? No epileptiform discharges.? Patient underwent lumbar puncture which was unremarkable, culture negative. Continue with dietary modification per speech therapy recommendations. Continue speech therapy consult at [facility] as oral intake abilities have improved with improvement in mental status/alertness. Gabapentin and tramadol continue to be on hold. May benefit from Reshma psych evaluation at [facility]. Discharged on Invanz for ESBL/Klebsiella UTI. Previous urine culture 01/15 treated with IV Rocephin based on sensitivities. Repeat urine culture 01/19/2022 with low colony count, not requiring treatment. Repeat urine culture on admission with greater than 100,000 Klebsiella and ESBL as noted below. Do not suspect UTI contributing however continue to monitor with completion of course. 2. Acute E. coli/Klebsiella UTI-previous culture with low colony count. Repeat urine culture pulmonary growing greater than 100,000 Klebsiella and ESBL.? ID consulted. Recommend Invanz IM 1 g daily for 5 days. Do not suspect bacteriuria is contributing to #1 as patient was previously treated appropriately for UTI without improvement in mental status. 3. Chronic hypoxic respiratory failure secondary to acute on chronic heart failure with preserved ejection fraction, complicated by underlying severe pulmonary hypertension-on 2 L nasal cannula at baseline.? Currently on baseline home O2 requirements. 4. Chronic heart failure with preserved ejection fraction-echocardiogram 01/16/22 with EF 65%, mild to moderate mitral valve insufficiency, moderately severe tricuspid valve insufficiency, right ventricular systolic pressure estimated to be 58 mmHg.? Recently diuresed with Lasix drip.? Continue Lasix 40 mg twice daily.? Balbir wraps bilateral lower extremities.? Strict I&O.? Daily weight. 5. Left anterior barrientos stasis ulcer-MRSA on culture. Topical Bactroban X1 Week.? Continue dressing changes as ordered. 6. Severe pulmonary hypertension-continue follow-up with pulmonary medicine. 7. Chronic asthma-no exacerbation.? 8. Type 2 diabetes mellitus-continue home regimen.? 9. Hypertension-stable, continue current regimen. 10. Hyperlipidemia-continue statin. 11. Chronic debility-PT/OT.? Resides at SNF.? Not motivated to work with therapy. 12. Depression-on Lexapro. 13.? Hypokalemia-resolved. Physical Exam Const alert Orientation / Consciousness: A&O X1-2 HEENT normocephalic Mouth: moist mucous membranes Eyes PERRL, EOMs intact bilaterally and conjunctivae normal Neck no lymphadenopathy Resp clear to auscultation bilaterally Auscultation: diminished lung sounds Cardio regular rate and no murmurs Cardio Narrative: A. fib Peripheral Pulses: pulses 2+ throughout GI normal to inspection, nondistended, normoactive bowel sounds, non-tender and non-distended Extremity normal to inspection General Extremity: edema bilateral upper extremity and lower extremity Skin no rashes or lesions noted Lesions: no lesions Rashes: no rashes Trauma: no lacerations or abrasions Neuro CN's II-XII intact bilaterally, no focal motor deficits, no sensory deficits noted and deep tendon reflexes 2+ bilaterally Neuro Narrative: No focal neurologic deficits.? Difficulty following commands.? Altered mental status. Psych Psych Narrative: fluctuant This patient was seen by Amanda Shepard NP-C under the supervision of Dr. Garcia. Time spent examining patient, reviewing data and subsequent management of care: 27 minutes Medical Records Data Medical Nutrition Assessment Dietitian: Malnutrition Criteria Met Start: 01/21/22 15:44 Freq: Status: Active Protocol: Document 01/21/22 15:44 RMA (Rec: 01/21/22 15:44 RMA [id number]) Nutrition Malnutrition Evidence of Malnutrition Exists Yes Malnutrition (severe): Chronic Evidenced By Suboptimal Energy Intake ( Severe),Weight Loss (Severe) Intake Problem Increased Nutrient Needs (specify) Etiology for protein related to wound healing Signs/Symptoms as evidenced by coccyx pressure injury and LLE stasis ulcer Status Active Problem Clinical Problem Chronic Disease or Condition Related Malnutrition Etiology Severe protein-calorie malnutrition in the context of chronic disease and debility related to suspected inadequate oral intake; difficulty swallowing Signs/Symptoms as evidenced by ~13-15% wt loss x past 6 months and currently NPO due to failed dysphagia screening Status Active Problem Recommendation Dietitian Recommendations/Changes When deemed safe for PO nutrition, recommend advance diet as tolerated to 1800 calorie/consistent carbohydrate; cardiac with fluid restriction as per provider order and consistency and texture as per WORKFORCE MANAGER. Consider TF support if pt unsafe for PO and remains NPO greater than 2-3 days. Pt will benefit from Abhilash for wound healing as able to deliver either PO or enterally . Offer ONS as appropriate once able to take PO nutrition. Weight / BMI Weight Weight: 200 lb 13.458 oz Body Mass Index (BMI) 34.4 ABG / Lab / Microbiology Data Result Diagrams: 01/23/22 06:40 01/23/22 06:40 Laboratory: Laboratory Results - last 24 hr 01/21/22 13:48: CSF Glucose 82 H, CSF Total Protein 50.0 H 01/22/22 13:45: Fld Polynuclear WBCs # 0.000, Fld Polynuclear WBCs % 0.0, Fluid Mononuclear WBCs 0.001, Fld Mononuclear WBCs % 100.0, CSF Appearance CLEAR, CSF Color COLORLESS, CSF WBC 0, CSF RBC 20 H, CSF Cell Count Tube # 4, CSF Total Cell Counted TNP, CSF Comment May follow 01/22/22 13:45: Miscellaneous Cytology SEE PATHOLOGY REPORT 01/23/22 00:15: POC Glucose 83 01/23/22 05:59: POC Glucose 85 01/23/22 06:40: WBC 5.0, RBC 3.57 L, Hgb 10.7 L, Hct 34.2 L, MCV 95.8, MCH 30.0, MCHC 31.3 L, RDW Std Deviation 63.6 H, RDW Coeff of Merly 18.1 H, Plt Count 218, MPV 12.0, Immature Gran % (Auto) 0.400, Neut % (Auto) 65.8, Lymph % (Auto) 20.2, [place] % (Auto) 13.4 H, Eos % (Auto) 0.0, Baso % (Auto) 0.2, Absolute Neuts (auto) 3.3, Absolute Lymphs (auto) 1.01, Nucleated RBC % 0 01/23/22 06:40: Sodium 141, Potassium 3.9, Chloride 98, Carbon Dioxide 35.0 H, Anion Gap 8, BUN 17, Creatinine 0.39 L, Estim Creat Clear Calc 43.27, Est GFR (MDRD) Af Amer 209, Est GFR (MDRD) Non-Af 173, BUN/Creatinine Ratio 43.9 H, Glucose 98, Calcium 8.2 L 01/23/22 08:00: Urine Opiates Screen NEGATIVE, Urine Methadone Screen NEGATIVE, Ur Barbiturates Screen NEGATIVE, Ur Phencyclidine Scrn NEGATIVE, Ur Amphetamines Screen NEGATIVE, MDMA (Ecstasy) Screen NEGATIVE, U Benzodiazepines Scrn NEGATIVE, Urine Cocaine Screen NEGATIVE, U Cannabinoids Screen NEGATIVE, Ur Drug Screen Comment 01/23/22 11:35: POC Glucose 107 H Microbiology: Microbiology 01/23/22 11:50 Nasal Secretion SARS-CoV-2 Antigen (Rapid) - Final 01/22/22 13:45 Csf, Spinal Fluid Gram Stain - Final 01/22/22 13:45 Csf, Spinal Fluid CSF Culture - Preliminary No growth in 24 hours. Final to follow. 01/21/22 11:23 Blood Culture (Wb) - Anticubital Left Blood Culture - Preliminary No growth in 48 hours. 01/21/22 11:23 Blood Culture (Wb) - Chest Blood Culture - Preliminary No growth in 48 hours. 01/21/22 12:00 Urine, Clean Catch Urine Culture - Final Klebsiella pneumoniae sp pneum Radiography Diagnostic Testing: Radiology Impression Lumbar Puncture Fluoroscopy 01/22/22 13:10 IMPRESSION: Successful fluoroscopic-guided lumbar puncture. Electronically Signed: Bandar Mckeon MD at 14:26 EDT , Meaningful Use Info Meaningful Use Diagnoses (Choose all that apply): None applicable Discharge Plan Admission Admit Date/Time: 01/21/22 13:30 Primary Reason for Your Visit: Altered mental status Attending Provider: Ricardo Garcia Primary Care Provider: Imer Villanueva Consulting Providers: Odessa Kramer ; Philippe Mahajan Discharge Orders/Prescriptions Prescriptions: New ertapenem 1 gram Recon Soln 1 g IM Q24 5 Days Qty: 0 0RF Continued cholecalciferol (vitamin D3) 2,000 unit capsule 2,000 unit PO DAILY atorvastatin 20 mg tablet 20 mg PO QHS metformin 500 mg tablet 500 mg PO BID famotidine 20 mg tablet 20 mg PO QHS ferrous sulfate 325 mg (65 mg iron) tablet,delayed release (DR/EC) 325 mg PO DAILY polyethylene glycol 3350 [Miralax] 17 gram/dose powder 17 g PO DAILY Eliquis 5 mg Tablet 5 mg PO BID Label Comments: . pilocarpine HCl 5 mg tablet 5 mg PO TIDCM escitalopram oxalate [Lexapro] 5 mg Tablet 5 mg PO DAILY albuterol sulfate 90 mcg/actuation Hfa Aerosol Inhaler 2 puff INHALATION Q6H PRN (Reason: sob) multivitamin Tablet 1 tab PO DAILY sennosides [senna] 8.6 mg Tablet 8.6 mg PO BID oxybutynin chloride 15 mg tablet extended release 24hr 15 mg PO DAILY cetirizine [Zyrtec] 10 mg Tablet 10 mg PO QHS biotin 5 mg Capsule 5 mg PO DAILY bisacodyl 10 mg Suppository 10 mg NV DAILY PRN (Reason: Constipation) acetaminophen 325 MG tablet 650 mg PO TID aspirin [Adult Low Dose Aspirin] 81 mg tablet,delayed release (DR/EC) 81 mg PO DAILY potassium chloride 20 mEq tablet extended release 20 meq PO DAILY magnesium oxide 400 mg magnesium tablet 400 mg PO DAILY mupirocin 2 % Ointment 1 applic topical BID Qty: 0 0RF Protocol: *Topical Application Instructions APPLICATION INSTRUCTIONS: Apply to left barrientos wound twice daily metoprolol tartrate 25 mg Tablet 12.5 mg PO BID Qty: 0 0RF furosemide 40 mg Tablet 40 mg PO BIDLX Qty: 0 0RF acetaminophen 500 mg Tablet 500 mg PO Q6H PRN (Reason: pain/fever) mineral oil Enema 118 ml NV DAILY PRN (Reason: Constipation) Rx Instructions: discard any unused portion magnesium hydroxide [Milk of Magnesia] 400 mg/5 mL Suspension 30 ml PO DAILY PRN (Reason: Constipation) zinc oxide Ointment 1 applic TOPICAL TID Discontinued cephalexin 500 mg Capsule 500 mg PO Q12 4 Days Qty: 8 0RF Referrals / Follow Up: Devin Welch MD [STAFF PHYSICIAN] - Within 1 Month Imer Villanueva [Primary Care Provider] - In 1 Week Disposition Disposition (needs filled in before D/C Order can be placed): [facility] Facility Documented by User: Dr. Ricardo Garcia MD 01/23/22 14:55 Providers Date of Admission: 01/21/22 Reason For Visit: FACIAL DROOP Diagnosis Discharge Diagnosis (1) Encephalopathy: Status: Acute Code(s): G93.40 - Encephalopathy, unspecified Medications at Discharge Home Medications cholecalciferol (vitamin D3) 50 mcg (2,000 unit) capsule 2,000 unit PO DAILY SUPPLEMENT 10/07/18 atorvastatin 20 mg tablet 20 mg PO QHS CHOLESTEROL 05/24/20 metformin 500 mg tablet 500 mg PO BID DM 11/15/20 ferrous sulfate 325 mg (65 mg iron) tablet,delayed release 325 mg PO DAILY SUPPLEMENT 01/10/21 famotidine 20 mg tablet 20 mg PO QHS GERD 01/11/21 apixaban 5 mg tablet (Eliquis) 5 mg PO BID AFIB 03/09/21 escitalopram oxalate 5 mg tablet (Lexapro) 5 mg PO DAILY DEPRESSION 07/24/21 pilocarpine HCl 5 mg tablet 5 mg PO TIDCM DRY MOUTH 07/24/21 polyethylene glycol 3350 17 gram/dose oral powder (Miralax) 17 g PO DAILY CONSTIPATION 09/12/21 acetaminophen 325 mg tablet 650 mg PO TID PAIN AND FEVER 01/15/22 albuterol sulfate 90 mcg/actuation aerosol inhaler 2 puff inhalation Q6H PRN sob 01/15/22 aspirin 81 mg tablet,delayed release (Adult Low Dose Aspirin) 81 mg PO DAILY HEART HEALTH 01/15/22 biotin 5 mg capsule 5 mg PO DAILY HAIR SKIN AND NAILS 01/15/22 bisacodyl 10 mg rectal suppository 10 mg NV DAILY PRN Constipation 01/15/22 cetirizine 10 mg tablet (Zyrtec) 10 mg PO QHS ALLERGIES 01/15/22 magnesium oxide 400 mg PO DAILY SUPPLEMENT 01/15/22 multivitamin 1 tab PO DAILY SUPPLEMENT 01/15/22 oxybutynin chloride 15 mg tablet,extended release 24 hr 15 mg PO DAILY BLADDER 01/15/22 potassium chloride 20 mEq tablet,extended release 20 meq PO DAILY SUPPLEMENT 01/15/22 sennosides 8.6 mg tablet (senna) 8.6 mg PO BID CONSTIPATION 01/15/22 metoprolol tartrate 25 mg tablet 12.5 mg PO BID #0 tabs 01/19/22 mupirocin 2 % topical ointment 1 applic topical BID #0 grams 01/19/22 furosemide 40 mg tablet 40 mg PO BIDLX #0 tabs 01/20/22 acetaminophen 500 mg tablet 500 mg PO Q6H PRN pain/fever 01/21/22 magnesium hydroxide 400 mg/5 mL oral suspension (Milk of Magnesia) 30 ml PO DAILY PRN Constipation 01/21/22 mineral oil 118 ml NV DAILY PRN Constipation 01/21/22 zinc oxide 1 applic topical TID 01/21/22 ertapenem 1 gram solution for injection 1 g IM Q24 5 days #0 ea 01/23/22 ABG / Lab / Microbiology Data Result Diagrams: 01/23/22 06:40 01/23/22 06:40 Discharge Plan Admission Admit Date/Time: 01/21/22 13:30 Primary Reason for Your Visit: Altered mental status Attending Provider: Ricardo Garcia Primary Care Provider: Imer Villanueva Consulting Providers: Odessa Kramer ; Keyshawn,Philippe Discharge Orders/Prescriptions Prescriptions: New ertapenem 1 gram Recon Soln 1 g IM Q24 5 Days Qty: 0 0RF Continued cholecalciferol (vitamin D3) 2,000 unit capsule 2,000 unit PO DAILY atorvastatin 20 mg tablet 20 mg PO QHS metformin 500 mg tablet 500 mg PO BID famotidine 20 mg tablet 20 mg PO QHS ferrous sulfate 325 mg (65 mg iron) tablet,delayed release (DR/EC) 325 mg PO DAILY polyethylene glycol 3350 [Miralax] 17 gram/dose powder 17 g PO DAILY Eliquis 5 mg Tablet 5 mg PO BID Label Comments: . pilocarpine HCl 5 mg tablet 5 mg PO TIDCM escitalopram oxalate [Lexapro] 5 mg Tablet 5 mg PO DAILY albuterol sulfate 90 mcg/actuation Hfa Aerosol Inhaler 2 puff INHALATION Q6H PRN (Reason: sob) multivitamin Tablet 1 tab PO DAILY sennosides [senna] 8.6 mg Tablet 8.6 mg PO BID oxybutynin chloride 15 mg tablet extended release 24hr 15 mg PO DAILY cetirizine [Zyrtec] 10 mg Tablet 10 mg PO QHS biotin 5 mg Capsule 5 mg PO DAILY bisacodyl 10 mg Suppository 10 mg NV DAILY PRN (Reason: Constipation) acetaminophen 325 MG tablet 650 mg PO TID aspirin [Adult Low Dose Aspirin] 81 mg tablet,delayed release (DR/EC) 81 mg PO DAILY potassium chloride 20 mEq tablet extended release 20 meq PO DAILY magnesium oxide 400 mg magnesium tablet 400 mg PO DAILY mupirocin 2 % Ointment 1 applic topical BID Qty: 0 0RF Protocol: *Topical Application Instructions APPLICATION INSTRUCTIONS: Apply to left barrientos wound twice daily metoprolol tartrate 25 mg Tablet 12.5 mg PO BID Qty: 0 0RF furosemide 40 mg Tablet 40 mg PO BIDLX Qty: 0 0RF acetaminophen 500 mg Tablet 500 mg PO Q6H PRN (Reason: pain/fever) mineral oil Enema 118 ml NV DAILY PRN (Reason: Constipation) Rx Instructions: discard any unused portion magnesium hydroxide [Milk of Magnesia] 400 mg/5 mL Suspension 30 ml PO DAILY PRN (Reason: Constipation) zinc oxide Ointment 1 applic TOPICAL TID Discontinued cephalexin 500 mg Capsule 500 mg PO Q12 4 Days Qty: 8 0RF Referrals / Follow Up: Devin Welch MD [STAFF PHYSICIAN] - Within 1 Month Imer Villanueva [Primary Care Provider] - In 1 Week Disposition Disposition (needs filled in before D/C Order can be placed): [facility] Facility Charges/Coding Addendum Addendum: Dr. Garcia I personally examined the patient and reviewed the chart. I agree with the above.? 71-year-old female presents from the [place] [facility] for the third time in several days.? Initially she was here for what was felt to be heart failure exacerbation placed on Lasix drip and discharged to the [place] [facility].? She was brought back to the hospital within 4 hours for concern for stroke she had an MRI which was negative so she was discharged back to the [place] [facility] on Friday and then she presented back to the hospital on Friday with concerns for stroke because she had a left facial droop which was not obvious on exam.? MRI again was negative.? We will proceed with an EEG as well as a lumbar puncture.? Her initial urine from her previous admission just demonstrated colonization however repeat urine sample and urine culture demonstrates a UTI with greater than 100,000 CFU's.? The previous culture did grow ESBL Klebsiella so she is started on Invanz.? Clinical time spent in all aspects of patient care: 20 minutes 01/23/2022: LP was unremarkable, viral studies are still pending however Gram stain was negative and the culture shows no growth after 24 hours. MRI was also unremarkable. Urine culture did grow out 100,000 CFU's of ESBL Klebsiella and she has been started on Invanz, blood cultures are also negative. She can be transferred back to SNF on IM Invanz. We will plan for discharge back to the SNF today, I do recommend possible evaluation by psychiatry. If she does have further episodes then she will likely need to be transferred to a tertiary care center that has 24-hour neuro coverage and possible 24-hour EEG monitoring. Clinical time spent in all aspects of patient care: 33 minutes Visit Charges OBSV E&M: 27830 Observation care discharge
--- NOTE | 2022-01-23 14:31 | CASEMGMT ---
SW arranged for patient to get picked up at 4p via cot via [facility]. SW faxed orders, negative COVID, and hand picker time to [place]. SW notified RN, psychiatric secretary, and patient's brother of d/c and hand picker time. Plan: d/c back to [place] under intermediate level of care. Physicians transported via cot. Pratima Aguiar [employer]
--- NOTE | 2022-01-23 15:02 | PHA.DC.MR ---
Pharmacy Service has performed discharge medication reconciliation for this patient. The patient's discharge medication list was reviewed for discrepancies and discrepancies were resolved. Home Medications cholecalciferol (vitamin D3) 50 mcg (2,000 unit) capsule 2,000 unit PO DAILY SUPPLEMENT 10/07/18 atorvastatin 20 mg tablet 20 mg PO QHS CHOLESTEROL 05/24/20 metformin 500 mg tablet 500 mg PO BID DM 11/15/20 ferrous sulfate 325 mg (65 mg iron) tablet,delayed release 325 mg PO DAILY SUPPLEMENT 01/10/21 famotidine 20 mg tablet 20 mg PO QHS GERD 01/11/21 apixaban 5 mg tablet (Eliquis) 5 mg PO BID AFIB 03/09/21 escitalopram oxalate 5 mg tablet (Lexapro) 5 mg PO DAILY DEPRESSION 07/24/21 pilocarpine HCl 5 mg tablet 5 mg PO TIDCM DRY MOUTH 07/24/21 polyethylene glycol 3350 17 gram/dose oral powder (Miralax) 17 g PO DAILY CONSTIPATION 09/12/21 acetaminophen 325 mg tablet 650 mg PO TID PAIN AND FEVER 01/15/22 albuterol sulfate 90 mcg/actuation aerosol inhaler 2 puff inhalation Q6H PRN sob 01/15/22 aspirin 81 mg tablet,delayed release (Adult Low Dose Aspirin) 81 mg PO DAILY HEART HEALTH 01/15/22 biotin 5 mg capsule 5 mg PO DAILY HAIR SKIN AND NAILS 01/15/22 bisacodyl 10 mg rectal suppository 10 mg CO DAILY PRN Constipation 01/15/22 cetirizine 10 mg tablet (Zyrtec) 10 mg PO QHS ALLERGIES 01/15/22 magnesium oxide 400 mg PO DAILY SUPPLEMENT 01/15/22 multivitamin 1 tab PO DAILY SUPPLEMENT 01/15/22 oxybutynin chloride 15 mg tablet,extended release 24 hr 15 mg PO DAILY BLADDER 01/15/22 potassium chloride 20 mEq tablet,extended release 20 meq PO DAILY SUPPLEMENT 01/15/22 sennosides 8.6 mg tablet (senna) 8.6 mg PO BID CONSTIPATION 01/15/22 metoprolol tartrate 25 mg tablet 12.5 mg PO BID #0 tabs 01/19/22 mupirocin 2 % topical ointment 1 applic topical BID #0 grams 01/19/22 furosemide 40 mg tablet 40 mg PO BIDLX #0 tabs 01/20/22 acetaminophen 500 mg tablet 500 mg PO Q6H PRN pain/fever 01/21/22 magnesium hydroxide 400 mg/5 mL oral suspension (Milk of Magnesia) 30 ml PO DAILY PRN Constipation 01/21/22 mineral oil 118 ml CO DAILY PRN Constipation 01/21/22 zinc oxide 1 applic topical TID 01/21/22 ertapenem 1 gram solution for injection 1 g IM Q24 5 days #0 ea 01/23/22
--- NOTE | 2022-01-23 15:36 | NURSING ---
Called report to luanne at the [facility]
--- NOTE | 2022-01-23 16:03 | PCM.CONS.GEN ---
Assessment & Plan Assessment/Plan (1) Encephalopathy: PLAN: complicated uti with ESBL klebs - ok for d/c on 5 more days IM ertapenem 1gm daily. Will follow as needed, thank you, d/w primary team (2) ESBL (extended spectrum beta-lactamase) producing bacteria infection: HPI Consult Data Date of Consult: 01/23/22 HPI Narrative Reason for Consultation: esbl infection HPI Narrative: GARCÍA BURROWS, is a 71 F who presented with L facial droop, altered mental status; sx had sudden onset. Recent admit with uti, given keflex. Discharged 01/20. [facility] ED, now ucx with esbl klebs, on ertapenem. Had LP done as well as CT. Unable to answer questions or given ROS due to mental status. [facility] Medical History Acute on chronic respiratory failure Altered mental status Anemia Depression Essential hypertension Femur fracture, left GERD (gastroesophageal reflux disease) Hyperlipidemia Mitral stenosis Non-rheumatic mitral valve stenosis Nonrheumatic aortic (valve) stenosis Nonrheumatic aortic (valve) stenosis CHIDI (obstructive sleep apnea) Other secondary pulmonary hypertension Pulmonary hypertension Type 2 diabetes mellitus Home Medications cholecalciferol (vitamin D3) 50 mcg (2,000 unit) capsule 2,000 unit PO DAILY SUPPLEMENT 10/07/18 [History Last Taken 01/20/22] atorvastatin 20 mg tablet 20 mg PO QHS CHOLESTEROL 05/24/20 [History Last Taken 01/20/22] metformin 500 mg tablet 500 mg PO BID DM 11/15/20 [History Last Taken 01/20/22] ferrous sulfate 325 mg (65 mg iron) tablet,delayed release 325 mg PO DAILY SUPPLEMENT 01/10/21 [History Last Taken 01/20/22] famotidine 20 mg tablet 20 mg PO QHS GERD 01/11/21 [History Last Taken 01/20/22] apixaban 5 mg tablet (Eliquis) 5 mg PO BID AFIB 03/09/21 [History Last Taken 01/20/22] escitalopram oxalate 5 mg tablet (Lexapro) 5 mg PO DAILY DEPRESSION 07/24/21 [History Last Taken 01/20/22] pilocarpine HCl 5 mg tablet 5 mg PO TIDCM DRY MOUTH 07/24/21 [History Last Taken 01/20/22] polyethylene glycol 3350 17 gram/dose oral powder (Miralax) 17 g PO DAILY CONSTIPATION 09/12/21 [History Last Taken 01/20/22] acetaminophen 325 mg tablet 650 mg PO TID PAIN AND FEVER 01/15/22 [History Last Taken 01/20/22] albuterol sulfate 90 mcg/actuation aerosol inhaler 2 puff inhalation Q6H PRN sob 01/15/22 [History Last Taken Unknown] aspirin 81 mg tablet,delayed release (Adult Low Dose Aspirin) 81 mg PO DAILY HEART HEALTH 01/15/22 [History Last Taken 01/20/22] biotin 5 mg capsule 5 mg PO DAILY HAIR SKIN AND NAILS 01/15/22 [History Last Taken 01/20/22] bisacodyl 10 mg rectal suppository 10 mg RI DAILY PRN Constipation 01/15/22 [History Last Taken 01/12/22] cetirizine 10 mg tablet (Zyrtec) 10 mg PO QHS ALLERGIES 01/15/22 [History Last Taken 01/20/22] magnesium oxide 400 mg PO DAILY SUPPLEMENT 01/15/22 [History Last Taken 01/20/22] multivitamin 1 tab PO DAILY SUPPLEMENT 01/15/22 [History Last Taken 01/20/22] oxybutynin chloride 15 mg tablet,extended release 24 hr 15 mg PO DAILY BLADDER 01/15/22 [History Last Taken 01/20/22] potassium chloride 20 mEq tablet,extended release 20 meq PO DAILY SUPPLEMENT 01/15/22 [History Last Taken 01/20/22] sennosides 8.6 mg tablet (senna) 8.6 mg PO BID CONSTIPATION 01/15/22 [History Last Taken 01/20/22] metoprolol tartrate 25 mg tablet 12.5 mg PO BID #0 tabs 01/19/22 [Rx Last Taken 01/20/22] mupirocin 2 % topical ointment 1 applic topical BID #0 grams 01/19/22 [Rx Last Taken 01/20/22] furosemide 40 mg tablet 40 mg PO BIDLX #0 tabs 01/20/22 [Rx Last Taken 01/20/22] acetaminophen 500 mg tablet 500 mg PO Q6H PRN pain/fever 01/21/22 [History Last Taken Unknown] magnesium hydroxide 400 mg/5 mL oral suspension (Milk of Magnesia) 30 ml PO DAILY PRN Constipation 01/21/22 [History Last Taken Unknown] mineral oil 118 ml RI DAILY PRN Constipation 01/21/22 [History Last Taken Unknown] zinc oxide 1 applic topical TID 01/21/22 [History Last Taken 01/20/22] ertapenem 1 gram solution for injection 1 g IM Q24 5 days #0 ea 01/23/22 [Rx Last Taken Unknown] Allergy/AdvReac Type Severity Reaction Status Date / Time lisinopril AdvReac Intermediate Unknown Verified 01/21/22 11:20 penicillin G AdvReac Intermediate Unknown Verified 01/21/22 11:20 exenatide [From [place]] AdvReac Unknown Unknown Verified 01/21/22 11:20 Family History Sister CAD (coronary artery disease) Hx of CABG Family History unable to obtain Surgical History History of cholecystectomy History of dilatation and curettage History of hernia repair History of left heart catheterization (LHC) (~12/12/20) History of partial colectomy History of total left knee replacement Social History housing: senior care number of children: 0 current occupational status: retired Smoking Status: Former smoker alcohol intake: never additional social history: single Physical Exam Const no apparent distress General Appearance: lethargic HEENT HEENT Narrative: facial droop Eyes PERRL and EOMs intact bilaterally Resp normal air movement and clear to auscultation bilaterally Cardio regular rate and regular rhythm GI soft to palpation, non-tender and non-distended Extremity no clubbing, cyanosis or edema Skin no rashes or lesions noted Neuro Neuro Narrative: unable to follow commands Medical Records Data Medical Nutrition Assessment Dietitian: Malnutrition Criteria Met Start: 01/21/22 15:44 Freq: Status: Active Protocol: Document 01/21/22 15:44 RMA (Rec: 01/21/22 15:44 RMA [id number]) Nutrition Malnutrition Evidence of Malnutrition Exists Yes Malnutrition (severe): Chronic Evidenced By Suboptimal Energy Intake ( Severe),Weight Loss (Severe) Intake Problem Increased Nutrient Needs (specify) Etiology for protein related to wound healing Signs/Symptoms as evidenced by coccyx pressure injury and LLE stasis ulcer Status Active Problem Clinical Problem Chronic Disease or Condition Related Malnutrition Etiology Severe protein-calorie malnutrition in the context of chronic disease and debility related to suspected inadequate oral intake; difficulty swallowing Signs/Symptoms as evidenced by ~13-15% wt loss x past 6 months and currently NPO due to failed dysphagia screening Status Active Problem Recommendation Dietitian Recommendations/Changes When deemed safe for PO nutrition, recommend advance diet as tolerated to 1800 calorie/consistent carbohydrate; cardiac with fluid restriction as per provider order and consistency and texture as per [employer]IST. Consider TF support if pt unsafe for PO and remains NPO greater than 2-3 days. Pt will benefit from Abhilash for wound healing as able to deliver either PO or enterally . Offer ONS as appropriate once able to take PO nutrition. Lab / Micro Data Attestation: I reviewed the patient's lab results. Result Diagrams: 01/23/22 06:40 01/23/22 06:40 Labs: Laboratory Results - last 24 hr 01/22/22 13:45: Miscellaneous Cytology SEE PATHOLOGY REPORT 01/23/22 00:15: POC Glucose 83 01/23/22 05:59: POC Glucose 85 01/23/22 06:40: WBC 5.0, RBC 3.57 L, Hgb 10.7 L, Hct 34.2 L, MCV 95.8, MCH 30.0, MCHC 31.3 L, RDW Std Deviation 63.6 H, RDW Coeff of Merly 18.1 H, Plt Count 218, MPV 12.0, Immature Gran % (Auto) 0.400, Neut % (Auto) 65.8, Lymph % (Auto) 20.2, [place] % (Auto) 13.4 H, Eos % (Auto) 0.0, Baso % (Auto) 0.2, Absolute Neuts (auto) 3.3, Absolute Lymphs (auto) 1.01, Nucleated RBC % 0 01/23/22 06:40: Sodium 141, Potassium 3.9, Chloride 98, Carbon Dioxide 35.0 H, Anion Gap 8, BUN 17, Creatinine 0.39 L, Estim Creat Clear Calc 43.27, Est GFR (MDRD) Af Amer 209, Est GFR (MDRD) Non-Af 173, BUN/Creatinine Ratio 43.9 H, Glucose 98, Calcium 8.2 L 01/23/22 08:00: Urine Opiates Screen NEGATIVE, Urine Methadone Screen NEGATIVE, Ur Barbiturates Screen NEGATIVE, Ur Phencyclidine Scrn NEGATIVE, Ur Amphetamines Screen NEGATIVE, MDMA (Ecstasy) Screen NEGATIVE, U Benzodiazepines Scrn NEGATIVE, Urine Cocaine Screen NEGATIVE, U Cannabinoids Screen NEGATIVE, Ur Drug Screen Comment 01/23/22 11:35: POC Glucose 107 H Micro: Microbiology 01/23/22 11:50 Nasal Secretion SARS-CoV-2 Antigen (Rapid) - Final 01/22/22 13:45 Csf, Spinal Fluid Gram Stain - Final 01/22/22 13:45 Csf, Spinal Fluid CSF Culture - Preliminary No growth in 24 hours. Final to follow. 01/21/22 11:23 Blood Culture (Wb) - Anticubital Left Blood Culture - Preliminary No growth in 48 hours. 01/21/22 11:23 Blood Culture (Wb) - Chest Blood Culture - Preliminary No growth in 48 hours. 01/21/22 12:00 Urine, Clean Catch Urine Culture - Final Klebsiella pneumoniae sp pneum
[2022-01-24 12:06] LABS: Pathologist Review Reviewed
== END 2022-01-23 13:26 ==
LOC: ED 13:22 → PCU 13:25
PROVIDERS: Nurse Practitioner Family; Admitting Provider Internal Medicine; Emergency Provider Emergency Medicine; PCP Family Medicine; Visit Provider Family Medicine
DX: G93.40 Encephalopathy, unspecified (principal); E11.622 Type 2 diabetes mellitus with other skin ulcer; L97.829 Non-pressure chronic ulcer of other part of left lower leg with unspecified severity; I11.0 Hypertensive heart disease with heart failure; I50.32 Chronic diastolic (congestive) heart failure; I27.20 Pulmonary hypertension, unspecified; E11.59 Type 2 diabetes mellitus with other circulatory complications; J96.11 Chronic respiratory failure with hypoxia; I87.2 Venous insufficiency (chronic) (peripheral); Z79.82 Long term (current) use of aspirin; R53.81 Other malaise; F32.A Depression, unspecified; B96.1 Klebsiella pneumoniae [K. pneumoniae] as the cause of diseases classified elsewhere; Z79.84 Long term (current) use of oral hypoglycemic drugs; R29.810 Facial weakness; D64.9 Anemia, unspecified; Z87.891 Personal history of nicotine dependence; B96.20 Unspecified Escherichia coli [E. coli] as the cause of diseases classified elsewhere; I65.23 Occlusion and stenosis of bilateral carotid arteries; E87.6 Hypokalemia; Z79.01 Long term (current) use of anticoagulants; E87.5 Hyperkalemia; R47.01 Aphasia; N39.0 Urinary tract infection, site not specified; E78.5 Hyperlipidemia, unspecified; G47.33 Obstructive sleep apnea (adult) (pediatric); Z79.899 Other long term (current) drug therapy; K21.9 Gastro-esophageal reflux disease without esophagitis; F17.210 Nicotine dependence, cigarettes, uncomplicated; R29.717 NIHSS score 17
CPT/HCPCS: 36415; 36600; 51702; 62328; 70450; 70496; 70498; 70551; 71045; 71250; 74230; 80048; 80307; 81001; 82140; 82607; 82803; 82945; 82962; 83605; 83735; 84100; 84132; 84157; 84443; 84484; 85025; 85610; 85730; 87040; 87070; 87077; 87086; 87088; 87186; 87205; 87426; 87498; 87529; 87798; 88108; 88313; 89050; 89051; 92523; 92526; 92610; 92611; 93005; 94762; 95819; 96365; 96366; 96367; 96375; 96376; 97162; 97166; 97802; 99218; 99285; Q9967; A4216; G0378; J1940